=== PATIENT | male | born 1965 | race Caucasian/White ===

== ENCOUNTER → 2016-06-07 | Outpatient (CLI) | payer OTHER ==
[~2016-06-07] MED LIST: ACET-1256 PO; ADVIN50050 INH; ALBU1NEB10 INH; ALBUAER2 INH; ASPI81TA28 PO; BUPR-102 PO; LSN/2025 PO; MELO15TA4 PO; METO1TAB66 PO; PRLSR20 PO; TRAZ50TA35 PO; [UNRECOGNIZED DRUG - CODE] PO
[2016-06-07 17:40] LABS: BASO % 0.4 %; BASO ABS # 0.03 K/uL (0-0.2); COMPLETE YES; EOS % 2.3 %; HEMATOCRIT 46.2 % (42-52); IG% 0.3 %; LYMPH % 21.2 %; MEAN CELL VOLUME 94.1 fL (80-100); MEAN CORPUSCULAR HEMOGLOBIN 31.6 pg (25-34); MEAN CORPUSCULAR HGB CONC 33.5 g/dl (32-36); MEAN PLATELET VOLUME 10.8 fL (7.4-10.4); MONO % 10.6 %; NEUT % 65.2 %; PLATELET COUNT 223 K/uL (130-400); RED BLOOD COUNT 4.91 M/uL (4.7-6.1); WHITE BLOOD COUNT 7.07 K/uL (4.8-10.8)
[2016-06-07 17:52] LABS: ALT/SGPT 34 U/L (12-78); BLOOD UREA NITROGEN 19 mg/dl (7-18); BUN/CREATININE RATIO 15.4 (10-20); CALCIUM 9.2 mg/dl (8.5-10.1); CARBON DIOXIDE 25 mmol/L (21-32); CHLORIDE 104 mmol/L (98-107); CHOLESTEROL 163 mg/dl (0-200); GLUCOSE 98 mg/dl (70-99); POTASSIUM 4.2 mmol/L (3.5-5.1); SODIUM 139 mmol/L (136-145)
[2016-06-07 18:01] LABS: ALB/GLOB RATIO 0.9 (0.9-2); ALKALINE PHOSPHATASE 110 U/L (45-117); AST/SGOT 27 U/L (15-37); CHOLESTEROL/HDL RATIO 3.8; HDL CHOLESTEROL 43 mg/dl; LDL CHOLESTEROL CALCULATED 75 mg/dl; TRIGLYCERIDES 227 mg/dl (0-150); VERY LOW DENSITY LIPOPROT CALC 45 mg/dl
== END | disposition home or self-care (01) ==
LOC: C.LABBFT 11:41
PROVIDERS: ATTEND Internal Medicine
DX: I63.9 Cerebral infarction, unspecified (principal); J45.901 Unspecified asthma with (acute) exacerbation

== ENCOUNTER 2024-03-26 08:36 | Inpatient (IN) ==
--- NOTE | 2024-03-26 09:02 | Emergency Department Note ---
Impression & Plan AMS (altered mental status), Acute hypokalemia, Hypomagnesemia, Elevated lactic acid level, Generalized weakness ED Provider Note HISTORY OF PRESENT ILLNESS: Patient is a 58-year-old male presenting for confusion. Patient has been having progressively worsening confusion reportedly over the last 3 months, but more notably in the last week or so. Patient reportedly fell and hit his head a few days ago. He has a history of thrombocytopenia and is on a baby aspirin. He is currently undergoing chemotherapy for multiple myeloma. He is currently undergoing radiation for a compression fracture at T10. had contacted heme/onc (Dr. Vásquez) due to the patient being very angry and confused and not himself. He reportedly soiled himself at radiation yesterday and got lost while driving home. He has been having episodes of angry outbursts with family. reports that the confusion and mood changes seem to get significantly worse starting on 03/13/2024 and have worsened since then. Dr. Vásquez does note that this is when the patient started taking Decadron daily for his pain. He was at treatment today when he disclosed to his meter and service line inspector that he hit his head a few days ago. They were referred to the emergency department for further evaluation. Patient did have a fever of 102 yesterday. reports that the patient broke out in sweats and seemed chilled. No reported cough. No dysuria or hematuria. Patient denies any nausea, vomiting or abdominal pain. Denies any chest pain. He does report feeling lightheaded when he stands up. ROS: as above PHYSICAL EXAM: Constitutional: Patient appears in no acute distress. HENT: Head: Normocephalic and atraumatic. Eyes: EOMI, PERRL Mouth/Throat: Mucous membranes moist. Neck: Trachea midline. Neck supple. Cardiovascular: Tachycardic with regular rhythm. No murmurs, rubs or gallops. Intact distal pulses. Pulmonary/Chest: No respiratory distress. Breath sounds clear and equal bilaterally. No wheezes or rales. Abdominal: Abdomen soft, no tenderness, rebound or guarding. Musculoskeletal: No edema, tenderness or deformity noted. Skin: Warm and dry. No rash, erythema, pallor or cyanosis Psychiatric: Appropriate mood and affect for situation. Neurological: Alert. Facies symmetric. Able to raise eyebrows, close eyes, smile, puff mouth, stick out tongue, move tongue left and right and raise palate symmetrically. Able to shrug shoulders. PERRLA. SILT to forehead below eye and at jawline. Can hear soft noise bilaterally. Strength 5/5 in bilateral upper and lower extremities. SILT throughout bilateral upper and lower extremities. MDM: - Vitals signs showed tachycardic and hypertensive. - History obtained via patient and patient's . History as above. - Chronic conditions affecting care: multiple myeloma; GERD; asthma; HTN - Differential diagnoses include, but are not limited to: intracranial hemorrhage; intracranial mass; CVA; ACS; pneumonia; viral syndrome; UTI; electrolyte abnormality; dysrhythmia - Order placed for continuous cardiac monitoring. At this time, monitor showed rate of 115 bpm with normal sinus rhythm, per my interpretation. - External medical records reviewed. Radiation oncology history and physical exam note dated 03/17/2024 was reviewed. Patient follows in their clinic for palliative radiation therapy for his T10 vertebral body compression fracture. - EKG interpreted by myself showed normal sinus rhythm. Rate tachycardic at 125 bpm. QT 334. No acute ischemic changes. - Laboratory workup interpreted by myself showed leukopenia (WBC 3.67); thrombocytopenia (plt 75); normal PT/INR; hypokalemia (K 2.8); elevated lactate (2.3); elevated anion gap (15); hypomagnesemia (Mg 1.6); normal troponin; normal procalcitonin - CT head wo contrast negative for acute intracranial pathology - CT cervical spine wo contrast negative for injury - CXR negative for pneumonia, per my interpretation - Viral respiratory panel negative - Patient given 30 mEq IV potassium and 1g IV magnesium for electrolyte replacement. - Blood cultures obtained - Patient empirically given 2g IV Rocephin - given his immunocompromised status and reported fevers. - Patient is emotionally labile and intermittently yelling at nursing staff and demanding that I stay in the room. He is very forgetful and loses his train of thought while talking with me. He is given 1 mg IM Ativan to help facilitate care. - CT imaging negative, but patient is very confused. Concern for potential further intracranial abnormality, so MRI brain was ordered to further assess for possible stroke or brain masses. - Discussion was had with case management manager about patient's case and need for admission - Hospitalist, Dr. Yun, consulted for admission - Patient admitted to [facility] for further evaluation and management. ASSESSMENT AND PLAN: Diagnosis: altered mental status; acute hypokalemia; hypomagnesemia; elevated lactic acid level; generalized weakness Plan: admit Past Med/Surg History Problem List (Updated 03/26/24 @ 11:23 by Debra Taylor MD) Generalized weakness (Acute) Elevated lactic acid level (Acute) Hypomagnesemia (Acute) Acute hypokalemia (Acute) AMS (altered mental status) (Acute) Insomnia (Acute) Erectile dysfunction Multiple myeloma Multiple myeloma-diagnosed by bone marrow biopsy April 2019. IgG monoclonal gammopathy Prothrombin gene mutation Heterozygous mutation diagnosed 2011 Osteoarthritis GERD (gastroesophageal reflux disease) Homocystinemia Homozygous MTHFR mutation diagnosed 2011 Prediabetes Clotting disorder (Chronic) Asthma (Chronic) Hypertension (Chronic) Medical History (Updated 03/26/24 @ 11:23 by Debra Taylor MD) Anxiety GERD (gastroesophageal reflux disease) On home O2 COPD (chronic obstructive pulmonary disease) Interstitial lung disease Intrinsic asthma Neuropathy Head injury From logging accident;2011; Shingles 2019 MGUS (monoclonal gammopathy of unknown significance) 2018 Stroke Umbilical hernia Osteoarthritis Degenerative joint disease (DJD) of lumbar spine Concussion Unconscious Chemotherapy-induced neuropathy ACL (anterior cruciate ligament) tear History of left ACL tear Insomnia Lyme disease Treated in 2015 Surgical History (Updated 03/17/24 @ 13:28 by Jesenia Longoria, RN) History of bone marrow biopsy Previous back surgery Lumbar spine surgery;Dr. Gray;2002 Hx of colonoscopy History of autologous stem cell transplant 09/02/19 S/P tonsillectomy H/O shoulder surgery Status post repair long head biceps tendon rupture 2013-left shoulder Total of 6 procedures on the left shoulder and 6 procedures on the right shoulder. S/P left knee arthroscopy Status post arthroscopic surgery for torn meniscus 2015 Hx of cholecystectomy History of hernia repair Right inguinal hernia repair 09/01/2013-Dr. Anand Left inguinal hernia repair 11/2020 Family History (Updated 03/17/24 @ 13:32 by Jesenia Longoria, RN) Uncle Cancer Unknown type Father Unknown family medical history Pacemaker Mother , 79yo Unknown family medical history Sister Colonic polyp Son No problems noted. Daughter Diabetes Denies family history of Ovarian cancer Prostate cancer Coronary heart disease Breast cancer Social History (Updated 03/17/24 @ 13:34 by Jesenia Longoria RN) Smoking Status: Never smoker Second Hand Exposure: Yes; Do You Dip or Chew Tobacco: No; Hx Alcohol Use: Yes Alcohol Intake Frequency Comment: Alcohol approximately 1 time per month Hx Substance Use: No (Remote history of marijuana use) Preferred Language: Yoruba Communication Ability: Effective Visual Impairment: No Limitations Hearing Ability: Normal Laundry Clerk Required: No Beliefs That Will Affect Care: None marital status: Current Living Situation: Spouse current occupational status: disabled current occupation: [employer] How many Children do You have: 2 Feels Safe at Home: Yes Childhood Exposure to Second-Hand Smoke: Yes Diet: regular caffeine: Yes during the past year weight has: decreased > 10 lbs Dental Care, Regularly: Yes Physical Activity Frequency: 1-2 Times per Week Seatbelt Use: always Sunscreen Use: Yes Allergies Allergies Allergy/AdvReac Type Severity Reaction Status Date / Time No Known Allergies Allergy Unknown Verified 03/17/24 13:18 Home Meds Home Medications Medication Instructions Recorded Confirmed acetaminophen 500 mg capsule 500 mg PO Q6H PRN 09/18/19 03/17/24 acyclovir 800 mg tablet 800 mg PO BID 09/18/19 03/17/24 folic acid 1 mg tablet 1 mg PO DAILY 09/18/19 03/17/24 multivitamin with minerals-folic mcg PO 09/18/19 03/17/24 acid 200 mcg chewable tablet (One-A-Day Vitacraves Immunity) omega-3 fatty acids 1,000 mg 1,000 mg PO DAILY 09/18/19 03/17/24 capsule vitamin B complex (B 1 tab PO DAILY 09/18/19 03/17/24 Complex-Vitamin B12 tablet) pregabalin 25 mg capsule 25 mg PO BID 01/09/23 03/17/24 albuterol sulfate 2.5 mg/3 mL 2.5 mg inhalation Q4H PRN 03/17/24 03/17/24 (0.083 %) solution for nebulization clobetasol 0.05 % topical cream 1 applic topical BID PRN 03/17/24 03/17/24 dexamethasone 4 mg tablet 4 mg PO DAILY 03/17/24 03/17/24 dexamethasone 4 mg tablet 40 mg PO .Weekly 03/17/24 03/17/24 diphenoxylate-atropine 2.5 1 tab PO QID PRN 03/17/24 03/17/24 mg-0.025 mg tablet (Lomotil) metformin 500 mg tablet,extended 1,000 mg PO DAILY 03/17/24 release 24 hr triamcinolone acetonide 0.1 % 1 applic topical BID PRN 03/17/24 03/17/24 topical cream Previous Rx's Medication Instructions Recorded sildenafil 100 mg tablet 100 mg PO DAILY PRN sexual 12/05/21 activity #6 tabs albuterol sulfate 90 mcg/actuation 2 puff inhalation Q6H PRN 05/11/22 aerosol inhaler (Ventolin HFA) shortness of breath or wheezing #54 grams aspirin 81 mg tablet,delayed 81 mg PO DAILY #30 tabs 01/09/23 release (Adult Aspirin Regimen) duloxetine 60 mg capsule,delayed 60 mg PO BID #180 caps 01/09/23 release ondansetron HCl 8 mg tablet 8 mg PO Q8H PRN nausea and 01/09/23 vomiting #30 tabs prochlorperazine maleate 10 mg 10 mg PO Q6H PRN nausea and 01/09/23 tablet vomiting #30 tabs losartan 50 mg tablet 50 mg PO DAILY #90 tabs 07/03/23 metoprolol succinate 50 mg 50 mg PO DAILY #90 tabs 07/03/23 tablet,extended release 24 hr trazodone 100 mg tablet 100 mg PO .COMPLEX #90 tabs 10/25/23 trazodone 150 mg tablet 150 mg PO HS #90 tabs 10/25/23 hydrochlorothiazide 25 mg tablet 25 mg PO DAILY #90 tabs 12/25/23 omeprazole 40 mg capsule,delayed 40 mg PO BID #180 caps 12/27/23 release zolpidem 10 mg tablet See Rx Instructions PO HS PRN 02/12/24 insomnia #30 tabs theophylline 450 mg 900 mg (2 x 450 mg) PO HS #180 tabs 02/20/24 tablet,extended release,12 hr oxycodone 5 mg tablet 5 mg PO Q6H PRN pain #120 tabs 03/24/24 Results & Data (ED) Vital Signs Vital Signs - 24 hr 03/26/24 08:40 03/26/24 09:02 03/26/24 09:27 Temperature 37 C 36.9 C Temperature Source Temporal Artery Scan Oral Pulse Rate 121 H 124 H Pulse Rate [Apical] 115 H Respiratory Rate 18 23 Respiratory Effort / Characteristics Non-Labored Spontaneous Non-Labored Spontaneous Respiratory Depth Normal Normal Blood Pressure 144/88 H Blood Pressure [Left Arm] 133/95 Blood Pressure Mean 106 Blood Pressure Mean [Left Arm] 107 Blood Pressure Position [Left Arm] Sitting Pulse Oximetry 96 94 Oxygen Delivery Method Room Air Room Air Sepsis Recent Fever Within 48 Hours No Sepsis New/Unexplained Change in Mental Status No Sepsis Action Taken by Nursing No Action Required Laboratory Data 03/26/24 08:56 03/26/24 08:56 Lab Results 03/26/24 03/26/24 03/26/24 Range/Units 08:56 09:20 11:19 WBC 3.67 L (4.8-10.8) K/ul RBC 4.18 L (4.70-6.10) M/uL Hgb 14.7 (14.0-18.0) g/dl Hct 41.6 L (42.0-52.0) % MCV 99.5 (80.0-100.0) fL MCH 35.2 H (25.0-34.0) pg MCHC 35.3 (32.0-36.0) g/dL RDW Std Deviation 49.1 H (36.4-46.3) fL RDW Coeff of Amy 13.4 (11.5-14.5) % Plt Count 75 L (130-400) K/uL MPV 12.1 (9.4-12.4) fL Immature Gran % (Auto) 1.1 % Neut % (Auto) 83.3 % Lymph % (Auto) 2.2 % Rincon % (Auto) 12.3 % Eos % (Auto) 0.8 % Baso % (Auto) 0.3 % Neut # (Auto) 3.06 (1.40-6.50) K/uL Lymph # (Auto) 0.08 L (1.20-3.40) K/uL Rincon # (Auto) 0.45 (0.11-0.59) K/uL Eos # (Auto) 0.03 (0.00-0.50) K/uL Baso # (Auto) 0.01 (0.00-0.20) K/uL Immature Gran # (Auto) 0.04 (0.01-0.20) K/uL Platelet Estimate Decreased L (Normal) Tear Drop Cells 1+ PT 10.5 (9.0-12.0) Seconds INR 1.0 (0.9-1.1) APTT 27 (21-31) Seconds PTT Ratio 1.0 Sodium 138 (136-145) mmol/L Potassium 2.8 L (3.5-5.1) mmol/L Chloride 99 (98-107) mmol/L Carbon Dioxide 24 (21-32) mmol/L Anion Gap 15 H (3-11) BUN 15 (6-23) mg/dl Creatinine 1.16 (0.6-1.4) mg/dl Est Cr Clr Drug Dosing 91.7 ml/min eGFR 72.56 BUN/Creatinine Ratio 12.9 (10-20) Glucose 127 H (70-99(Fasting)) mg/dl Lactate 2.3 H* 2.1 H* (0.4-2.0) mmol/L Calcium 9.6 (8.6-10.3) mg/dl Magnesium 1.6 L (1.7-2.4) mg/dl Total Bilirubin 0.8 (0.2-1.0) mg/dl AST 21 (13-39) U/L ALT 19 (7-52) U/L Alkaline Phosphatase 90 (34-104) U/L Troponin I High Sens 14.1 (0-20) pg/ml Total Protein 6.5 (6.0-8.3) gm/dl Albumin 4.5 (3.4-5.0) gm/dl Globulin 2.0 L (2.5-4.0) gm/dl Albumin/Globulin Ratio 2.3 H (0.9-2) Procalcitonin 0.09 (0-0.5) ng/ml Urine Color Urine Appearance (Clear) Urine pH (4.5-7.5) Ur Specific Fults (1.000-1.030) Urine Protein (Negative) Urine Glucose (UA) (Negative) Urine Ketones (Negative) Urine Blood (Negative) Urine Nitrite (Negative) Urine Bilirubin (Negative) Urine Urobilinogen (Negative) Ur Leukocyte Esterase (Negative) Adenovirus (PCR) Not Detected (NotDetected) B. pertussis DNA (PCR) Not Detected (NotDetected) B.parapertussis DNA PCR Not Detected (NotDetected) C. pneumoniae DNA (PCR) Not Detected (NotDetected) Coronavirus OC43 (PCR) Not Detected (NotDetected) Coronavirus HKU1 (PCR) Not Detected (NotDetected) Coronavirus 229E (PCR) Not Detected (NotDetected) SARS-CoV-2 (PCR) Not Detected (NotDetected) Coronavirus NL63 (PCR) Not Detected (NotDetected) Human Metapneumovir PCR Not Detected (NotDetected) Influenza Type A (PCR) Not Detected (NotDetected) Influenza Type B (PCR) Not Detected (NotDetected) M. pneumoniae (PCR) Not Detected (NotDetected) Parainfluenza 1 (PCR) Not Detected (NotDetected) Parainfluenza 2 (PCR) Not Detected (NotDetected) Parainfluenza 3 (PCR) Not Detected (NotDetected) Parainfluenza 4 (PCR) Not Detected (NotDetected) RSV (PCR) Not Detected (NotDetected) Entero/Rhino (PCR) Not Detected (NotDetected) 03/26/24 Range/Units Unknown WBC (4.8-10.8) K/ul RBC (4.70-6.10) M/uL Hgb (14.0-18.0) g/dl Hct (42.0-52.0) % MCV (80.0-100.0) fL MCH (25.0-34.0) pg MCHC (32.0-36.0) g/dL RDW Std Deviation (36.4-46.3) fL RDW Coeff of Amy (11.5-14.5) % Plt Count (130-400) K/uL MPV (9.4-12.4) fL Immature Gran % (Auto) % Neut % (Auto) % Lymph % (Auto) % Rincon % (Auto) % Eos % (Auto) % Baso % (Auto) % Neut # (Auto) (1.40-6.50) K/uL Lymph # (Auto) (1.20-3.40) K/uL Rincon # (Auto) (0.11-0.59) K/uL Eos # (Auto) (0.00-0.50) K/uL Baso # (Auto) (0.00-0.20) K/uL Immature Gran # (Auto) (0.01-0.20) K/uL Platelet Estimate (Normal) Tear Drop Cells PT (9.0-12.0) Seconds INR (0.9-1.1) APTT (21-31) Seconds PTT Ratio Sodium (136-145) mmol/L Potassium (3.5-5.1) mmol/L Chloride (98-107) mmol/L Carbon Dioxide (21-32) mmol/L Anion Gap (3-11) BUN (6-23) mg/dl Creatinine (0.6-1.4) mg/dl Est Cr Clr Drug Dosing ml/min eGFR BUN/Creatinine Ratio (10-20) Glucose (70-99(Fasting)) mg/dl Lactate (0.4-2.0) mmol/L Calcium (8.6-10.3) mg/dl Magnesium (1.7-2.4) mg/dl Total Bilirubin (0.2-1.0) mg/dl AST (13-39) U/L ALT (7-52) U/L Alkaline Phosphatase (34-104) U/L Troponin I High Sens (0-20) pg/ml Total Protein (6.0-8.3) gm/dl Albumin (3.4-5.0) gm/dl Globulin (2.5-4.0) gm/dl Albumin/Globulin Ratio (0.9-2) Procalcitonin (0-0.5) ng/ml Urine Color Yellow Urine Appearance Clear (Clear) Urine pH 6.5 (4.5-7.5) Ur Specific Fults 1.014 (1.000-1.030) Urine Protein Negative (Negative) Urine Glucose (UA) Negative (Negative) Urine Ketones 2+ H (Negative) Urine Blood Negative (Negative) Urine Nitrite Negative (Negative) Urine Bilirubin Negative (Negative) Urine Urobilinogen Negative (Negative) Ur Leukocyte Esterase Negative (Negative) Adenovirus (PCR) (NotDetected) B. pertussis DNA (PCR) (NotDetected) B.parapertussis DNA PCR (NotDetected) C. pneumoniae DNA (PCR) (NotDetected) Coronavirus OC43 (PCR) (NotDetected) Coronavirus HKU1 (PCR) (NotDetected) Coronavirus 229E (PCR) (NotDetected) SARS-CoV-2 (PCR) (NotDetected) Coronavirus NL63 (PCR) (NotDetected) Human Metapneumovir PCR (NotDetected) Influenza Type A (PCR) (NotDetected) Influenza Type B (PCR) (NotDetected) M. pneumoniae (PCR) (NotDetected) Parainfluenza 1 (PCR) (NotDetected) Parainfluenza 2 (PCR) (NotDetected) Parainfluenza 3 (PCR) (NotDetected) Parainfluenza 4 (PCR) (NotDetected) RSV (PCR) (NotDetected) Entero/Rhino (PCR) (NotDetected) Administered Medications Potassium Chloride (K Joshua / Wtr) 10 meq in 100 mls @ 100 mls/hr IV Q1H KIRBY; Protocol Stop: 03/26/24 12:44 Last Admin: 03/26/24 11:31 Dose: 100 mls/hr Documented By: Infusion: 03/26/24 11:23 Dose: Infused Documented By: Admin: 03/26/24 10:00 Dose: 100 mls/hr Documented By: CC Discontinued Medications Sodium Chloride (Nss) 1,000 mls @ 999 mls/hr IV .Q1H1M ONE Stop: 03/26/24 10:04 Last Infusion: 03/26/24 11:23 Dose: Infused Documented By: Admin: 03/26/24 09:23 Dose: 999 mls/hr Documented By: CC Acetaminophen (Ofirmev) 1,000 mg in 100 mls @ 400 mls/hr IV NOW STA Stop: 03/26/24 09:18 Last Infusion: 03/26/24 10:31 Dose: Infused Documented By: Admin: 03/26/24 09:23 Dose: 400 mls/hr Documented By: CC Magnesium Sulfate/Dextrose (Magnesium Sulfate / D5w) 1 gm in 100 mls @ 100 mls/hr IV NOW STA Stop: 03/26/24 10:40 Last Infusion: 03/26/24 11:23 Dose: Infused Documented By: Admin: 03/26/24 10:00 Dose: 100 mls/hr Documented By: CC Ceftriaxone Sodium (Rocephin) 2,000 mg in 50 mls @ 100 mls/hr IV NOW STA Stop: 03/26/24 10:37 Last Admin: 03/26/24 11:30 Dose: 100 mls/hr Documented By: CC Lorazepam (Lorazepam 2 Mg/1 Ml Vial) 1 mg IV NOW STA Stop: 03/26/24 10:45 Last Admin: 03/26/24 11:18 Dose: 1 mg Documented By: NA Lorazepam (Lorazepam 1 Mg/1 Ml Syr Ed Inj Use) 1 mg IM ONE STA Stop: 03/26/24 10:51 Last Admin: 03/26/24 11:19 Dose: Not Given Documented By: NA Imaging Data Radiologist's Impression: Cervical Spine CT 03/26/24 08:50 CT OF THE CERVICAL SPINE WITHOUT CONTRAST CLINICAL HISTORY: Recent fall. COMPARISON STUDY: PET/CT August 13, 2023. TECHNIQUE: Helical axial images of the cervical spine were obtained without IV contrast. Sagittal and coronal reconstructions were viewed. Automated exposure control was utilized for the study. A dose lowering technique was utilized adhering to the principles of ALARA. FINDINGS: There are no cervical spine fractures. Moderate multilevel degenerative changes are present. Several lucent lesions within the cervical spine are likely degenerative in etiology. There is no prevertebral edema. Several mildly enlarged left-sided cervical lymph nodes are partially imaged. These nodes measure up to 1.1 cm. These are stable to slightly decreased in size since PET/CT of August 13, 2023. IMPRESSION: 1. No acute cervical spine fracture or subluxation. 2. Left cervical lymphadenopathy, partially imaged on this exam. These nodes are stable to slightly decreased in size since PET/CT of August 13, 2023. ACT 112: Negative or not required by law. Electronically signed by: Rafi Fontenot M.D. 03/26/2024 9:36 AM Chest X-Ray 03/26/24 08:50 XR chest 1V portable CLINICAL HISTORY: Sepsis. COMPARISON STUDY: Chest CT September 23, 2019. Plain CT March 19, 2024. FINDINGS: Lung volumes are normal. Lungs are clear. There is no pneumothorax or pleural effusion. Cardiac size is normal. Mediastinal contours are normal. There is no evidence for pulmonary edema. IMPRESSION: No acute cardiopulmonary findings. ACT 112: Negative or not required by law. Electronically signed by: Rafi Fontenot M.D. 03/26/2024 10:[address] 03/26/24 08:50 CT head/brain wo con CLINICAL HISTORY: 58 years-old Male with fell and hit head; ASA + thrombocytopenia. Acute head trauma status post fall TECHNIQUE: Multiple axial CT images of the head were obtained without contrast. A dose lowering technique was utilized adhering to the principles of ALARA. COMPARISON: CT cervical spine of same day FINDINGS: No acute intracranial hemorrhage, midline shift, intracranial mass, hydrocephalus, territorial ischemia or abnormal extra-axial collection. The calvarium is intact. The paranasal sinuses, mastoid air cells, and middle ear cavities are clear. IMPRESSION: No acute intracranial abnormality. ACT 112: Negative or not required by law. The above report was generated using voice recognition software. It may contain grammatical, syntax or spelling errors. Electronically signed by: Riley Pierre M.D. 03/26/2024 9:36 AM Discharge Plan Visit Data Chief Complaint: Confusion Stated Complaint: MENTAL HEALTH EVAL ED Provider: Debra Taylor Discharge Problem: AMS (altered mental status), Acute hypokalemia, Hypomagnesemia, Elevated lactic acid level, Generalized weakness Prescriptions Prescriptions: No Action triamcinolone acetonide 0.1 % cream 1 applic topical BID PRN dexamethasone 4 mg tablet 40 mg PO .Weekly Patient Comments: As directed. albuterol sulfate 2.5 mg /3 mL (0.083 %) solution for nebulization 2.5 mg inhalation Q4H PRN diphenoxylate-atropine [Lomotil] 2.5-0.025 mg tablet 1 tab PO QID PRN clobetasol 0.05 % cream 1 applic topical BID PRN dexamethasone 4 mg tablet 4 mg PO DAILY Patient Comments: Except on day of chemo metformin 500 mg tablet extended release 24 hr 1,000 mg PO DAILY sildenafil 100 mg tablet 100 mg PO DAILY PRN (Reason: sexual activity) Qty: 6 11RF Rx Instructions: administer 30 minutes to 4 hours before activity albuterol sulfate [Ventolin HFA] 90 mcg/actuation HFA aerosol inhaler 2 puff INH Q6H PRN (Reason: shortness of breath or wheezing) Qty: 54 3RF metoprolol succinate 50 mg tablet extended release 24 hr 50 mg PO DAILY Qty: 90 3RF losartan 50 mg tablet 50 mg PO DAILY Qty: 90 3RF trazodone 100 mg tablet 100 mg PO .COMPLEX Qty: 90 3RF Rx Instructions: 100 mg PO qhs; take with 150mg tab to equal 250mg daily. trazodone 150 mg tablet 150 mg PO HS MDD 250mg Qty: 90 3RF Rx Instructions: take with 100mg tablet to equal 250mg daily hydrochlorothiazide 25 mg tablet 25 mg PO DAILY Qty: 90 3RF omeprazole 40 mg capsule,delayed release(DR/EC) 40 mg PO BID Qty: 180 3RF zolpidem 10 mg tablet See Rx Instructions PO HS PRN (Reason: insomnia) Qty: 30 2RF Rx Instructions: Take 1/2 to 1 tablet at bedtime as needed for insomnia Michael Collins Lic# [id number],CHRISTIAN#[id number] ON GOING THERAPY theophylline 450 mg tablet extended release 12 hr 900 mg PO HS Qty: 180 3RF oxycodone 5 mg tablet 5 mg PO Q6H PRN (Reason: pain) Qty: 120 0RF vitamin B complex [B Complex-Vitamin B12] Tablet 1 tab PO DAILY One-A-Day Vitacraves Immunity 200 mcg tablet,chewable PO folic acid 1 mg tablet 1 mg PO DAILY omega-3 fatty acids 1,000 mg capsule 1,000 mg PO DAILY acyclovir 800 mg tablet 800 mg PO BID acetaminophen 500 mg capsule 500 mg PO Q6H PRN pregabalin 25 mg capsule 25 mg PO BID aspirin [Adult Aspirin Regimen] 81 mg tablet,delayed release (DR/EC) 81 mg PO DAILY Qty: 30 2RF Hold Instructions: by [facility] [place] 09/16/2019 duloxetine 60 mg capsule,delayed release(DR/EC) 60 mg PO BID Qty: 180 3RF ondansetron HCl 8 mg tablet 8 mg PO Q8H PRN (Reason: nausea and vomiting) Qty: 30 0RF prochlorperazine maleate 10 mg tablet 10 mg PO Q6H PRN (Reason: nausea and vomiting) Qty: 30 0RF Referrals Referrals: Michael Collins MD [Primary Care Provider] -
[2024-03-26] MEDS: SODIUM CHLORIDE 0.9% 1,000 ML IV ONE (09:23)
[2024-03-26] MEDS: ACETAMINOPHEN 1,000 MG/100 ML VIAL IV STA (09:23)
[2024-03-26 09:24] LABS: Appearance Urine Clear (Clear); Bilirubin Urine Negative (Negative); Blood Urine Negative (Negative); Color Urine Yellow; Glucose Urine UA Negative (Negative); Ketones Urine 2+ (Negative); Leukocyte Esterase Urine Negative (Negative); Nitrite Urine Negative (Negative); Protein Urine Negative (Negative); Specific Gravity Urine 1.014 (1.000-1.030); Urobilinogen Urine Negative (Negative); pH Urine 6.5 (4.5-7.5)
[2024-03-26 09:29] VITALS: TEMP 98.4
[2024-03-26 09:34] LABS: Albumin Globulin Ratio 2.3 (0.9-2); Albumin Level 4.5 gm/dl (3.4-5.0); BUN Creatinine Ratio 12.9 (10-20); Bilirubin,Total 0.8 mg/dl (0.2-1.0); Calcium 9.6 mg/dl (8.6-10.3); Creatinine Clr Calc Pharmacy 91.7 ml/min; Magnesium 1.6 mg/dl (1.7-2.4); Potassium 2.8 mmol/L (3.5-5.1); Total Protein 6.5 gm/dl (6.0-8.3)
--- NOTE | 2024-03-26 09:37 | CT Scan Report ---
CT head/brain wo con CLINICAL HISTORY: 58 years-old Male with fell and hit head; ASA + thrombocytopenia. Acute head traum a status post fall TECHNIQUE: Multiple axial CT images of the head were obtained without contrast. A dose lowering tech nique was utilized adhering to the principles of ALARA. COMPARISON: CT cervical spine of same day FINDINGS: No acute intracranial hemorrhage, midline shift, intracranial mass, hydrocephalus, territorial ischem ia or abnormal extra-axial collection. The calvarium is intact. The paranasal sinuses, mastoid air cells, and middle ear cavities are clear . IMPRESSION: No acute intracranial abnormality. ACT 112: Negative or not required by law. The above report was generated using voice recognition software. It may contain grammatical, syntax o r spelling errors. Electronically signed by: Riley Pierre M.D. 03/26/2024 9:36 AM
--- NOTE | 2024-03-26 09:38 | CT Scan Report ---
CT OF THE CERVICAL SPINE WITHOUT CONTRAST CLINICAL HISTORY: Recent fall. COMPARISON STUDY: PET/CT August 13, 2023. TECHNIQUE: Helical axial images of the cervical spine were obtained without IV contrast. Sagittal a nd coronal reconstructions were viewed. Automated exposure control was utilized for the study. A do se lowering technique was utilized adhering to the principles of ALARA. FINDINGS: There are no cervical spine fractures. Moderate multilevel degenerative changes are present . Several lucent lesions within the cervical spine are likely degenerative in etiology. There is no p revertebral edema. Several mildly enlarged left-sided cervical lymph nodes are partially imaged. Thes e nodes measure up to 1.1 cm. These are stable to slightly decreased in size since PET/CT of August 13, 2023. IMPRESSION: 1. No acute cervical spine fracture or subluxation. 2. Left cervical lymphadenopathy, partially imaged on this exam. These nodes are stable to slightly d ecreased in size since PET/CT of August 13, 2023. ACT 112: Negative or not required by law. Electronically signed by: Rafi Fontenot M.D. 03/26/2024 9:36 AM
[2024-03-26 09:40] LABS: Troponin I High Sensitivity 14.1 pg/ml (0-20)
[2024-03-26 09:43] LABS: Partial Thromboplastin Time 27 Seconds (21-31); Prothrombin Time 10.5 Seconds (9.0-12.0)
[2024-03-26] MEDS: MAGNESIUM SULFATE / D5W 1 GM/100 ML BAG IV STA (10:00)
[2024-03-26] MEDS: POTASSIUM CHLORIDE / WTR 10 MEQ/100 ML PLCT IV SCH (10:00)
[2024-03-26 10:06] LABS: Hematocrit (blood only) 41.6 % (42.0-52.0); Hemoglobin 14.7 g/dl (14.0-18.0); Mean Corpuscular Hemoglobin 35.2 pg (25.0-34.0); Mean Corpuscular Hgb Conc 35.3 g/dL (32.0-36.0); Mean Corpuscular Volume 99.5 fL (80.0-100.0); RDW Coefficient of Variation 13.4 % (11.5-14.5); RDW Standard Deviation 49.1 fL (36.4-46.3); Red Blood Count 4.18 M/uL (4.70-6.10); White Blood Count 3.67 K/ul (4.8-10.8)
[2024-03-26 10:08] LABS: Basophils # (auto) 0.01 K/uL (0.00-0.20); Basophils % (auto) 0.3 %; Eosinophils # (auto) 0.03 K/uL (0.00-0.50); Eosinophils % (auto) 0.8 %; Immature Granulocytes # (auto) 0.04 K/uL (0.01-0.20); Immature Granulocytes % (auto) 1.1 %; Lymphocytes # (auto) 0.08 K/uL (1.20-3.40); Lymphocytes % (auto) 2.2 %; Mean Platelet Volume 12.1 fL (9.4-12.4); Monocytes # (auto) 0.45 K/uL (0.11-0.59); Monocytes % (auto) 12.3 %; Neutrophils # (auto) 3.06 K/uL (1.40-6.50); Neutrophils % (auto) 83.3 %; Platelet Count 75 K/uL (130-400); Platelet Estimate Decreased (Normal); Tear Drop Cells 1+
--- NOTE | 2024-03-26 10:10 | XRay Report ---
XR chest 1V portable CLINICAL HISTORY: Sepsis. COMPARISON STUDY: Chest CT September 23, 2019. Plain CT March 19, 2024. FINDINGS: Lung volumes are normal. Lungs are clear. There is no pneumothorax or pleural effusion. Car diac size is normal. Mediastinal contours are normal. There is no evidence for pulmonary edema. IMPRESSION: No acute cardiopulmonary findings. ACT 112: Negative or not required by law. Electronically signed by: Rafi Fontenot M.D. 03/26/2024 10:09 AM
[2024-03-26 10:19] LABS: Adenovirus PCR Not Detected (NotDetected); Bordetella parapertussis PCR Not Detected (NotDetected); Bordetella pertussis PCR Not Detected (NotDetected); Chlamydia pneumoniae PCR Not Detected (NotDetected); Coronavirus 229E PCR Not Detected (NotDetected); Coronavirus CoV-2 (COVID19)PCR Not Detected (NotDetected); Coronavirus HKU1 PCR Not Detected (NotDetected); Coronavirus NL63 PCR Not Detected (NotDetected); Coronavirus OC43PCR Not Detected (NotDetected); Human Metapneumovirus PCR Not Detected (NotDetected); Influenza A PCR Not Detected (NotDetected); Influenza B PCR Not Detected (NotDetected); Mycoplasma pneumoniae PCR Not Detected (NotDetected); Parainfluenza Virus 1 PCR Not Detected (NotDetected); Parainfluenza Virus 2 PCR Not Detected (NotDetected); Parainfluenza Virus 3 PCR Not Detected (NotDetected); Parainfluenza Virus 4 PCR Not Detected (NotDetected); Respiratory Syncytial VirusPCR Not Detected (NotDetected); Rhinovirus/Enterovirus PCR Not Detected (NotDetected)
[2024-03-26] MEDS: LORazepam 2 MG/1 ML VIAL IV STA (10:53)
[2024-03-26] MEDS: LORazepam 1 MG/1 ML SYR ED Inj Use IM STA (11:19)
[2024-03-26] MEDS: cefTRIAXone SODIUM 2,000 MG/50 ML BAG IV STA (11:30)
[2024-03-26] MEDS: POTASSIUM CHLORIDE CRTAB 20 MEQ TABCR PO STA (11:55)
[2024-03-26 11:58] LABS: C Reactive Protein 3.03 mg/dl (0-0.5)
--- NOTE | 2024-03-26 11:59 | History & Physical Report ---
Date of Service March 26, 2024 Assessment & Plan (1) Encephalopathy: Plan: ? Steroid-induced psychosis Onset 3 months ago, worsening on 03/13 after MRI appointment, no h/o dementia or psych disorders - Worsening over 3 months, large change around 03/13 after MRI appointment where his states that he "had a meltdown" when discussing his history - Oncology note from 12/12/2023 without mention of steroids; Note from 03/05/2024 first mention of Decadron 40mg weekly HOWEVER, spoke with oncologist on phone who states that this steroid dose has been ongoing x years - Additional 4mg daily is only recent adjustment; pt has not taken 4mg dose since 03/23 stating it was "messing with his head" per --> continue to HOLD for now - Chemo every - CBC WBC 3.67, RBC 4.18, HCT 41.6, MCH 35.2, RDW 49.1, platelets 75 - CMP K 2.8, anion gap 15 - Lactate 2.1, magnesium 1.6, CRP 3.03; procalcitonin 0.09; TSH 0.618, vitamin B12 > 1500 - Tick panel negative thus far (h/o Lyme in 2016) - UA with 2+ ketones otherwise WNL - CXR, cervical spine CT, and head CT all without acute findings - EKG revealing sinus tachycardia and PACs - MRI- no acute cranial findings, no intracranial masses or pathological enhanc ement, few old small infarcts with right cerebellar hemisphere - Neurology consulted ([facility] neurologist outpatient) Appreciate neurology input + recs (2) Multiple myeloma: Plan: Diagnosed 04/08/2019; Following w/ Dr. Vásquez @ [facility] - Current regimen: SQ daratumumab (since 01/2021), Darzalex Faspro monthly (since 01/2021), Cytoxan 300mg/m2 weekly (since 10/2023), Decadron 40mg weekly - Oncology note from 12/12/2023 without mention of steroids; Note from 03/05/2024 first mention of Decadron 40mg weekly HOWEVER, spoke with oncologist on phone who states that this steroid dose has been ongoing x years - Spoke w/ oncologist over the phone 03/26 regarding patient's treatment and any changes; all as above (3) Acute hypokalemia: Plan: K 2.8 on admission - EKG w/o changes - Replaced w/ IV K - Continue on oral replacement prn if continues to be low - Hold HCTZ until repeat K - CMP am (4) Back pain: Plan: Compression fx T10, to have radiation - On Decadron 40mg weekly w/ chemo and ? 4mg daily otherwise - Duloxetine 60mg BID, oxycodone 5mg q6hr prn pain --> HOLD oxycodone as it may be contributing to #1 - Received Acetaminophen in ED; states "back is getting better" (5) Hypertension: Plan: Hypertensive on arrival - HCTZ 25mg daily, Losartan 50mg daily, metoprolol succ 50mg - Hold HCTZ until repeat K (6) Asthma: Plan: Per hx - Albuterol sulfate neb prn - CXR WNL Plan Prediabetes- Metformin 1000 mg daily -> no SQ insulin placed at admission Homozygous MTHFR mutation- Dx 2011 GERD- Omperazole 40mg BID Neuropathy- Pregablin 25mg BID ED- Sildenafil 100mg prn Insomnia- Zolpidem 10mg, trazodone 150 mg qHS -> HOLD BOTH as may be contributing to #1 Dispo: Admit VTE prophylaxis: SCDs Code: Full Admission and Anticipated Discharge Date Admission Date: 03/26/2024 History of Present Illness Chief Complaint: Confusion, AMS Primary Care Provider: Michael Collins MD 58-year-old male presenting to ED after referred from oncologist secondary to learning of recent fall. ED course: CBC- WBC 3.67, RBC 4.18, H&H 14.7/41.6, MCH 35.2, RDW 49.1, platelets 75; CMP-potassium 2.8, anion gap 15, glucose 127, globulin 2.0, albumin/globulin ratio 2.3; lactate 10.1, magnesium 1.6, troponin 14.1, pending CRP, TSH, vitamin B12; UA 2+ ketones otherwise unremarkable; CXR no acute cardiopulmonary findings; cervical spine CT left cervical LAD, partially imaged on the exam nodes are stable to slightly decreased in size since PET/CT of August 13, 2023; head CT without acute intracranial abnormality; EKG sinus tach with PACs, rate 125, plus minus LVH, QTc 482.; Provided with one-on-one assist, potassium replacement, magnesium replacement, Rocephin, Tylenol as well as lorazepam in ED. Patient is a 58-year-old male with PMHx multiple myeloma, GERD, HTN, homocystinemia, asthma and insomnia presenting for altered mental status. , Yvrose, helps to provide history. States that approximately 3 months ago the patient started to have confusion that has mainly worsened over the past 10 to 12 days. States that the patient had an MRI approximately 2 to 3 weeks ago and that when he came home he stated he had a "meltdown" and has not been the same since. Approximately 1 week ago, the patient was found writing numerous notes to himself writing things such as "I trust Yvrose", "I will go to the ER". His also states that that the patient has been intermittently complaining of pain above his left eye that occurs almost on a daily basis, and has stated "I try to ignore it so the voices do not know" per the patient's . Had a recent fall approximately 2 days ago and hit his head (on aspirin). She states that he also has had a fever for approximately 3 days with Tmax being 102 on 03/25. Also, on 03/25 the patient was noted to have soiled himself and got confused when driving home. denies alcohol or illicit drug use in the patient. States that the patient does not have any prior mental illnesses, but that there is a positive family history of such. 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 Only medication adjustments have been dosages of Decadron. Patient's states that he seems to become agitated and awake for hours on end after receiving a large dose of Decadron (40 mg) with his chemotherapy treatments. Chemotherapy treatments occur every . Patient spends a lot of time outside trying to do outside chores. No known ticks. Associated symptoms include patient having a difficult time urinating. Patient very suspicious of staff entering the room, picking and choosing who may come in and stay. I was able to enter the patient's room in the ED to have brief discussion with him. However, soon after entering, he told the nurse that I should leave and continued to act very suspicious of everyone entering the room. Assured him that I was there to help him, and he was willing to talk with me briefly. States that he can walk by himself, and that back pain is improving. Asked for water. Please see Dr. Yun's attestation for adjustments/additions to treatment plan. Allergies Allergy/AdvReac Type Severity Reaction Status Date / Time No Known Allergies Allergy Unknown Verified 03/17/24 13:18 Home Medications Medication Instructions Recorded Confirmed Type acetaminophen 500 mg capsule 500 mg PO Q6H PRN Pain/Fever 09/18/19 03/26/24 History acyclovir 800 mg tablet 800 mg PO BID 09/18/19 03/26/24 History folic acid 1 mg tablet 1 mg PO DAILY 09/18/19 03/26/24 History multivitamin with minerals-folic 200 mcg PO 09/18/19 03/17/24 History acid 200 mcg chewable tablet (One-A-Day VitacrBitWall Immunity) omega-3 fatty acids 1,000 mg 1,000 mg PO DAILY 09/18/19 03/26/24 History capsule sildenafil 100 mg tablet 100 mg PO DAILY PRN sexual 12/05/21 03/26/24 Rx activity #6 tabs albuterol sulfate 90 mcg/actuation 2 puff inhalation Q6H PRN 05/11/22 03/26/24 Rx aerosol inhaler (Ventolin HFA) shortness of breath or wheezing #54 grams aspirin 81 mg tablet,delayed 81 mg PO DAILY #30 tabs 01/09/23 03/26/24 Rx release (Adult Aspirin Regimen) duloxetine 60 mg capsule,delayed 60 mg PO BID #180 caps 01/09/23 03/26/24 Rx release ondansetron HCl 8 mg tablet 8 mg PO Q8H PRN nausea and 01/09/23 03/26/24 Rx vomiting #30 tabs pregabalin 25 mg capsule 25 mg PO BID 01/09/23 03/26/24 History prochlorperazine maleate 10 mg 10 mg PO Q6H PRN nausea and 01/09/23 03/26/24 Rx tablet vomiting #30 tabs losartan 50 mg tablet 50 mg PO DAILY #90 tabs 07/03/23 03/26/24 Rx metoprolol succinate 50 mg 50 mg PO DAILY #90 tabs 07/03/23 03/26/24 Rx tablet,extended release 24 hr trazodone 100 mg tablet 100 mg PO .COMPLEX #90 tabs 10/25/23 03/26/24 Rx trazodone 150 mg tablet 150 mg PO HS #90 tabs 10/25/23 03/26/24 Rx hydrochlorothiazide 25 mg tablet 25 mg PO DAILY #90 tabs 12/25/23 03/26/24 Rx omeprazole 40 mg capsule,delayed 40 mg PO BID #180 caps 12/27/23 03/26/24 Rx release zolpidem 10 mg tablet See Rx Instructions PO HS PRN 02/12/24 03/26/24 Rx insomnia #30 tabs theophylline 450 mg 900 mg (2 x 450 mg) PO HS #180 tabs 02/20/24 03/26/24 Rx tablet,extended release,12 hr albuterol sulfate 2.5 mg/3 mL 2.5 mg inhalation Q4H PRN Wheezing 03/17/24 03/26/24 History (0.083 %) solution for nebulization clobetasol 0.05 % topical cream 1 applic topical BID PRN Skin rash 03/17/24 03/26/24 History dexamethasone 4 mg tablet 4 mg PO DAILY 03/17/24 03/26/24 History dexamethasone 4 mg tablet 40 mg PO .Weekly 03/17/24 03/26/24 History diphenoxylate-atropine 2.5 1 tab PO QID PRN Diarrhea 03/17/24 03/26/24 History mg-0.025 mg tablet (Lomotil) metformin 500 mg tablet,extended 1,000 mg PO DAILY 03/17/24 03/26/24 History release 24 hr triamcinolone acetonide 0.1 % 1 applic topical BID PRN Rash 03/17/24 03/26/24 History topical cream oxycodone 5 mg tablet 5 mg PO Q6H PRN pain #120 tabs 03/24/24 03/26/24 Rx Past Med/Surg History Problem List (Updated 03/26/24 @ 14:59 by Ry Zaidi PA-C) Encephalopathy Back pain Generalized weakness (Acute) Elevated lactic acid level (Acute) Hypomagnesemia (Acute) Acute hypokalemia (Acute) AMS (altered mental status) (Acute) Insomnia (Acute) Erectile dysfunction Multiple myeloma Multiple myeloma-diagnosed by bone marrow biopsy April 2019. IgG monoclonal gammopathy Prothrombin gene mutation Heterozygous mutation diagnosed 2011 Osteoarthritis GERD (gastroesophageal reflux disease) Homocystinemia Homozygous MTHFR mutation diagnosed 2011 Prediabetes Clotting disorder (Chronic) Asthma (Chronic) Hypertension (Chronic) Medical History Anxiety GERD (gastroesophageal reflux disease) On home O2 COPD (chronic obstructive pulmonary disease) Interstitial lung disease Intrinsic asthma Neuropathy Head injury From logging accident;2011; Shingles 2019 MGUS (monoclonal gammopathy of unknown significance) 2018 Stroke Umbilical hernia Osteoarthritis Degenerative joint disease (DJD) of lumbar spine Concussion Unconscious Chemotherapy-induced neuropathy ACL (anterior cruciate ligament) tear History of left ACL tear Insomnia Lyme disease Treated in 2015 Surgical History History of bone marrow biopsy Previous back surgery Lumbar spine surgery;Dr. Gray;2002 Hx of colonoscopy History of autologous stem cell transplant 09/02/19 S/P tonsillectomy H/O shoulder surgery Status post repair long head biceps tendon rupture 2013-left shoulder Total of 6 procedures on the left shoulder and 6 procedures on the right shoulder. S/P left knee arthroscopy Status post arthroscopic surgery for torn meniscus 2015 Hx of cholecystectomy History of hernia repair Right inguinal hernia repair 09/01/2013-Dr. Anand Left inguinal hernia repair 11/2020 Family History Uncle Cancer Unknown type Father Unknown family medical history Pacemaker Mother , 79yo Unknown family medical history Sister Colonic polyp Son No problems noted. Daughter Diabetes Denies family history of Ovarian cancer Prostate cancer Coronary heart disease Breast cancer Social History Smoking Status: Unknown if ever smoked Second Hand Exposure: Yes; Do You Dip or Chew Tobacco: No; Preferred Language: Romanian Communication Ability: Effective Visual Impairment: No Limitations Hearing Ability: Normal Shaper Setter Required: No Beliefs That Will Affect Care: None marital status: Current Living Situation: Spouse current occupational status: disabled current occupation: [employer] How many Children do You have: 2 Feels Safe at Home: Declines to Answer Childhood Exposure to Second-Hand Smoke: Yes Diet: regular caffeine: Yes during the past year weight has: decreased > 10 lbs Dental Care, Regularly: Yes Physical Activity Frequency: 1-2 Times per Week Seatbelt Use: always Sunscreen Use: Yes Review of Systems Review of Systems: All systems reviewed & are unremarkable except as noted in Subjective Physical Exam Physical Exam: General: No acute distress Skin: Warm and dry Head: Normocephalic, atraumatic Eyes: PERRL, conjunctivae clear, sclera non-icteric Neck: Supple Cardio: Tachycardic, regular rhythm, no M/G/R, S1 and S2 normal Resp: No respiratory distress, Lungs CTA in all lobes bilaterally, no wheezes, rales, or rhonchi Abdomen: Soft, symmetric, nontender; no distention; No masses or hepatosplenomegaly MSK: No deformities; pulses palpable and equal; no edema. Neuro: Awake, alert Psych: Cooperating Results & Data Results & Data Vital Signs (Past 12 Hours) Vital Signs Temp Pulse Pulse Resp BP BP Pulse Ox 03/26/24 09:27 36.9 C 115 H 23 133/95 94 03/26/24 09:02 124 H 03/26/24 08:40 37 C 121 H 18 144/88 H 96 O2 Del Method 03/26/24 09:27 Room Air 03/26/24 09:02 03/26/24 08:40 Room Air Laboratory Results 03/26/24 09:52 Aerobic Blood Culture - Pending Blood Anaerobic Blood Culture - Pending 03/26/24 09:20 Aerobic Blood Culture - Pending Blood Anaerobic Blood Culture - Pending 03/26/24 03/26/24 03/26/24 Unknown 11:21 11:19 WBC RBC Hgb Hct MCV MCH MCHC RDW Std Deviation RDW Coeff of Amy Plt Count MPV Immature Gran % (Auto) Neut % (Auto) Lymph % (Auto) Bourbon % (Auto) Eos % (Auto) Baso % (Auto) Neut # (Auto) Lymph # (Auto) [place] # (Auto) Eos # (Auto) Baso # (Auto) Immature Gran # (Auto) Platelet Estimate Tear Drop Cells PT INR APTT PTT Ratio Sodium Potassium Chloride Carbon Dioxide Anion Gap BUN Creatinine Est Cr Clr Drug Dosing eGFR BUN/Creatinine Ratio Glucose Lactate 2.1 H* Calcium Magnesium Total Bilirubin AST ALT Alkaline Phosphatase Troponin I High Sens C-Reactive Protein 3.03 H Total Protein Albumin Globulin Albumin/Globulin Ratio Procalcitonin Urine Color Yellow Urine Appearance Clear Urine pH 6.5 Ur Specific Benton 1.014 Urine Protein Negative Urine Glucose (UA) Negative Urine Ketones 2+ H Urine Blood Negative Urine Nitrite Negative Urine Bilirubin Negative Urine Urobilinogen Negative Ur Leukocyte Esterase Negative Adenovirus (PCR) B. pertussis DNA (PCR) B.parapertussis DNA PCR C. pneumoniae DNA (PCR) Coronavirus OC43 (PCR) Coronavirus HKU1 (PCR) Coronavirus 229E (PCR) SARS-CoV-2 (PCR) Coronavirus NL63 (PCR) Human Metapneumovir PCR Influenza Type A (PCR) Influenza Type B (PCR) M. pneumoniae (PCR) Parainfluenza 1 (PCR) Parainfluenza 2 (PCR) Parainfluenza 3 (PCR) Parainfluenza 4 (PCR) RSV (PCR) Entero/Rhino (PCR) 03/26/24 03/26/24 09:20 08:56 WBC 3.67 L RBC 4.18 L Hgb 14.7 Hct 41.6 L MCV 99.5 MCH 35.2 H MCHC 35.3 RDW Std Deviation 49.1 H RDW Coeff of Amy 13.4 Plt Count 75 L MPV 12.1 Immature Gran % (Auto) 1.1 Neut % (Auto) 83.3 Lymph % (Auto) 2.2 Bourbon % (Auto) 12.3 Eos % (Auto) 0.8 Baso % (Auto) 0.3 Neut # (Auto) 3.06 Lymph # (Auto) 0.08 L Bour[place] # (Auto) 0.45 Eos # (Auto) 0.03 Baso # (Auto) 0.01 Immature Gran # (Auto) 0.04 Platelet Estimate Decreased L Tear Drop Cells 1+ PT 10.5 INR 1.0 APTT 27 PTT Ratio 1.0 Sodium 138 Potassium 2.8 L Chloride 99 Carbon Dioxide 24 Anion Gap 15 H BUN 15 Creatinine 1.16 Est Cr Clr Drug Dosing 91.7 eGFR 72.56 BUN/Creatinine Ratio 12.9 Glucose 127 H Lactate 2.3 H* Calcium 9.6 Magnesium 1.6 L Total Bilirubin 0.8 AST 21 ALT 19 Alkaline Phosphatase 90 Troponin I High Sens 14.1 C-Reactive Protein Total Protein 6.5 Albumin 4.5 Globulin 2.0 L Albumin/Globulin Ratio 2.3 H Procalcitonin 0.09 Urine Color Urine Appearance Urine pH Ur Specific Benton Urine Protein Urine Glucose (UA) Urine Ketones Urine Blood Urine Nitrite Urine Bilirubin Urine Urobilinogen Ur Leukocyte Esterase Adenovirus (PCR) Not Detected B. pertussis DNA (PCR) Not Detected B.parapertussis DNA PCR Not Detected C. pneumoniae DNA (PCR) Not Detected Coronavirus OC43 (PCR) Not Detected Coronavirus HKU1 (PCR) Not Detected Coronavirus 229E (PCR) Not Detected SARS-CoV-2 (PCR) Not Detected Coronavirus NL63 (PCR) Not Detected Human Metapneumovir PCR Not Detected Influenza Type A (PCR) Not Detected Influenza Type B (PCR) Not Detected M. pneumoniae (PCR) Not Detected Parainfluenza 1 (PCR) Not Detected Parainfluenza 2 (PCR) Not Detected Parainfluenza 3 (PCR) Not Detected Parainfluenza 4 (PCR) Not Detected RSV (PCR) Not Detected Entero/Rhino (PCR) Not Detected Diagnostic Findings Cervical Spine CT 03/26/24 08:50 CT OF THE CERVICAL SPINE WITHOUT CONTRAST CLINICAL HISTORY: Recent fall. COMPARISON STUDY: PET/CT August 13, 2023. TECHNIQUE: Helical axial images of the cervical spine were obtained without IV contrast. Sagittal and coronal reconstructions were viewed. Automated exposure control was utilized for the study. A dose lowering technique was utilized adhering to the principles of ALARA. FINDINGS: There are no cervical spine fractures. Moderate multilevel degenerative changes are present. Several lucent lesions within the cervical spine are likely degenerative in etiology. There is no prevertebral edema. Several mildly enlarged left-sided cervical lymph nodes are partially imaged. These nodes measure up to 1.1 cm. These are stable to slightly decreased in size since PET/CT of August 13, 2023. IMPRESSION: 1. No acute cervical spine fracture or subluxation. 2. Left cervical lymphadenopathy, partially imaged on this exam. These nodes are stable to slightly decreased in size since PET/CT of August 13, 2023. ACT 112: Negative or not required by law. Electronically signed by: Rafi Fontenot M.D. 03/26/2024 9:36 AM Chest X-Ray 03/26/24 08:50 XR chest 1V portable CLINICAL HISTORY: Sepsis. COMPARISON STUDY: Chest CT September 23, 2019. Plain CT March 19, 2024. FINDINGS: Lung volumes are normal. Lungs are clear. There is no pneumothorax or pleural effusion. Cardiac size is normal. Mediastinal contours are normal. There is no evidence for pulmonary edema. IMPRESSION: No acute cardiopulmonary findings. ACT 112: Negative or not required by law. Electronically signed by: Rafi Fontenot M.D. 03/26/2024 10:[address] 03/26/24 08:50 CT head/brain wo con CLINICAL HISTORY: 58 years-old Male with fell and hit head; ASA + thrombocytopenia. Acute head trauma status post fall TECHNIQUE: Multiple axial CT images of the head were obtained without contrast. A dose lowering technique was utilized adhering to the principles of ALARA. COMPARISON: CT cervical spine of same day FINDINGS: No acute intracranial hemorrhage, midline shift, intracranial mass, hydrocephalus, territorial ischemia or abnormal extra-axial collection. The calvarium is intact. The paranasal sinuses, mastoid air cells, and middle ear cavities are clear. IMPRESSION: No acute intracranial abnormality. ACT 112: Negative or not required by law. The above report was generated using voice recognition software. It may contain grammatical, syntax or spelling errors. Electronically signed by: Riley Pierre M.D. 03/26/2024 9:36 AM Code Status & VTE Plan VTE Prophylaxis Plan VTE Prophylaxis will be ordered: Yes Supervising Physician Co-Signing Physician Notes I personally saw and examined the patient. I independently reviewed the labs, EKG, imaging, problem list, medication list, past medical history and family history. I verified all rodriguez points and agree with Ry Zaidi PA-C with the following exceptions and/or additions: 58 year old male who presents to the ER with confusion and increased aggression with his O/E Alert but does not want to answer questions on orientation, HS RRR, no murmurs, Chest CTAB, Abdo SNT, pupils equal, not co-operative with full neurological exam but moving all 4 extremities equally A/P Acute encephalopathy - differential remains broad after normal brain MRI. Di scussed with neurology and recommend transfer to tertiary care center where alternative diagnoses than frontotemporal dementia can be ruled out faster with increased lab availability. I was present when EMBER discussed transfer with his and agreed to transfer. Transfer paperwork signed. He continues to not demonstrate any capacity to make his healthcare decisions. Hold oxycodone and zolpidem. Hypokalemia - agree with holding HCTZ, replacement ordered in the ER PG Care Time/CCT Total # of Minutes Spent Total Time Spent with Patient: Total time spent is greater than 50% in coordination of care (as documented) at patient's floor/unit and/or counseling patient: Coding Level of Care Code 55744 INT INP/OBS CARE 3/75MIN Diagnoses Encephalopathy G93.40 Multiple myeloma C90.00 Acute hypokalemia E87.6 Back pain M54.9 Hypertension I10 Asthma J45.909 Time Spent (min) 85
[2024-03-26 12:14] LABS: Thyroid Stimulating Hormone 0.618 uIu/ml (0.300-4.500)
[2024-03-26] MEDS: GADOBUTROL 65ML VIAL IV ONE (12:42)
--- NOTE | 2024-03-26 13:09 | Magnetic Resonance Report ---
MRI OF THE BRAIN WITHOUT AND WITH IV CONTRAST CLINICAL HISTORY: Change in personality, confusion ?frontal lobe CVA COMPARISON STUDY: Head CT performed earlier today. TECHNIQUE: Utilizing a 1.5 Rhonda magnet and dedicated coil, multiplanar, multiecho imaging of the br ain was performed pre and postcontrast administration. IV administration of 11 mL of Gadavist contra st was uneventful. Thin cut T1 post contrast imaging was performed. FINDINGS: There are no foci of restricted diffusion to suggest acute infarct. No acute intracranial h emorrhage, midline shift or mass effect is present. Brain volume is normal. Ventricular system is nor mal. Basal cisterns are patent. Flow-voids for the major intracranial vessels are present. No intracr anial mass or pathologic enhancement. 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 Calvarial signal is normal. IMPRESSION: 1. No acute intracranial findings. 2. No intracranial mass or pathologic enhancement. 3. 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 ACT 112: Negative or not required by law. Electronically signed by: Raif Fontenot M.D. 03/26/2024 1:08 PM
[2024-03-26] MEDS ORDERED: ACETAMINOPHEN 500 MG TAB PO PRN (15:09)
--- NOTE | 2024-03-26 15:56 | Communication Note ---
Date of Service: March 26, 2024 Patient trying to leave against medical advice from the emergency room. He is unable to demonstrate any understanding of why he is here or what investigations we have done. He was unable to do this earlier when I saw him on admission either. He refuses to now talk to me as I am a doctor despite me explaining that I cannot let him leave unless he shows he has capacity to make the decision. Security called. Care was discussed with his over the phone who is the presumed POA. She wishes him to stay admitted against his wishes since he lacks capacity. Discussed us medically treating delirium with Zyprexa which she is ok with since he currently presents a risk to both himself and staff. 5mg Zyprexia IM ordered.
[2024-03-26] MEDS: OLANZapine 10 MG/2.1 ML SDV IM STA (15:58)
--- OUTSIDE RECORDS SUMMARY | 2024-03-26 16:10 | External Medical Summary | Summary of Care ---
Author Name Unknown Organization [facility] Address [address] [facility] [place] [address] Phone [phone] Care Team Providers Care Night Coordinator Name Role Phone Michael Collins MD Primary Care Provi zehra Reason for Visit * Reason Comments Chemotherapy Cytoxan * Episode Based Medications (Routine) - Authorized Specialty Diagnoses / Procedures Referred By Contac t Referred To Contact Diagnoses Multiple myeloma not having achieved remission (HCC) Procedures DC DARATUMUMAB, HYALURONIDASE DC INJ, CYCLOPHOSPHAMIDE, NOS DC INJ CYCLOPHOSPHAMD [facility] Morgan Vásquez MD [address] [facility] [place] [address] Phone: tel: fax: Hematology/Oncology Treatment, [place] DEPT CLOSED - 03/26/23 [address] [facility] [place] [address] Phone: tel: fax: Referral ID Status Reason Start Date Expiration Date V isits Requested Visits Authorized [id number] Authorized 05/28/2022 05/12/2099 99 99 Encounter Details Date Type Department Care Team (Latest Contact Info) Description 02/20/2024 8:30 AM EDT Hem/Onc Treatment Hematology/Oncolog y Treatment, [place] [address] [place] [address] Kenyatta, Chair [address] [place] [address] Multiple myeloma not having achieved remission (HCC)*; Encounter for antineoplastic chemotherapy Allergies No known active allergiesdocumented as of this encounter (statuses as of 03/25/2024) Medications THEOPHYLLINE ER 450 MG PO [id number] :2 tablet at bedtime Take by mouth. Indications: 2 tablet at bedtime Active B COMPLEX FORMULA 1 PO TABS Take by mouth. Activ e MULTIVITAMINS PO CAPS 1 daily Active FOLIC ACID 1 MG PO TABS Take by mouth daily. Active METOPROLOL XL TBCR 50 MG OR 1 tab daily Active hydrochlorothia zide (HYDRODIURIL) 25 MG Tablet Take 1 Tablet by mouth in the morning. 1 tab daily . 5 Active losartan (COZAAR) 50 MG Tablet Take 1 Tablet by mouth in the morning. 1 tab daily. 5 Active VENTOLIN HFA 108 (90 BASE) MCG/ACT inhaler As needed 11 Active omega-3 1000 MG CAPS Take by mouth. Activ e Multiple Vitamins-Minera ls ([facility] IMMUNITY SUPPORT) CHEW Take by mouth. A ctive traZODone (DESYREL) 150 MG Tablet Take 250 mg by mouth at bedtime. Active omeprazole (PRILOSEC) 40 MG CPDR Take 1 Capsule by mouth in the morning and 1 Capsule before bedtime. Active albuterol sulfate (PROVENTIL) (2.5 MG/3ML) 0.083% nebulizer solution INHALE 1 VIAL VIA NEBULIZER EVERY 6 HOURS NEEDED FOR SHORTNESS OF BREATH OR WHEEZING Active acetaminophen (TYLENOL EXTRA STRENGTH) 500 MG Tablet Take 1 Tab by mouth every 6 hours as needed for Pain or Fever. 30 Tab 020 Active zolpidem (AMBIEN) 5 MG Tablet Take 1 Tablet by mouth at bedtime as needed for Sleep. Active Aspirin 81 MG Oral Tablet Chewable Take 1 Tablet by mouth in the morning. Active Diphenoxylate-A tropine 2.5-0.025 MG Oral Tablet (Lomotil)Indica tions:Multiple myeloma in remission (HCC),Diarrhea, unspecified type TAKE 1 TABLET BY MOUTH 4 TIMES A DAY NEEDED FOR DIARRHEA 60 Tab 021 Active Sildenafil Citrate 100 MG Oral Tablet 021 Active Clobetasol Propionate 0.05 % External Ointment (Temovate)Indic ations:Skin rash Apply topically to affected area 2 times a day . 30 g 2 022 Active B Complex Formula 1 (Lipotrop) Oral Tablet Active Levalbuterol HCl 1.25 MG/3ML Inhalation Nebulization Solution (Xopenex) INHALE CONTENTS OF 1 VIAL (3ML) EVERY 6 HOURS 023 Active oxygen IN GAS Administer 2 L/min(Oxygen) into nostril at bedtime. PATIENT INFORMATION: Kris Gonsalveselizabeth [address] [place] [address] [employer]: [email or web address] ORDER: Please start nocturnal oxygen via nasal cannula at a flow rate of 2 liters per minute with a stationary concentrator unit . Test date (during sleep): 09/16/2022 Minimal SPO2 was: 76 % Time spent below a SPO2 89% was 2 hrr 34 minutes. ESTIMATED DURATION OF NEED: The prescription of this equipment applies to rental period from date of this order till lifetime (99 months):99 PHYSICIAN ATTESTATION: I certify that the above medical necessity information is true, accurate and complete to the best of my knowledge. (electronically signed) Ish Caba MD Pulmonary Medicine, [address] [place] [address] [facility] Medical License Number: [id number] 1 Each 023 Active metFORMIN HCl ER (OSM) 500 MG Oral Tablet Extended Release 24 Hour 1 Tablet. 023 Active oxyCODONE HCl 5 MG Oral Tablet (Oxy IR) TAKE 1 TAB BY MOUTH EVERY 6 HOURS NEEDED FOR PAIN Active Triamcinolone Acetonide 0.1 % External Cream (Aristocort) Apply 2x daily to rashes areas on trunk/arms/legs during winter time mostly. 454 g 023 Active Acyclovir 800 MG Oral Tablet (Zovirax)Indica tions:Multiple myeloma not having achieved remission (HCC),History of autologous stem cell transplant (HCC) TAKE 1 TABLET BY MOUTH TWICE A DAY 180 Tablet 3 024 Active Prochlorperazin e Maleate 10 MG Oral Tablet (Compazine)Kasandra cations:Multipl e myeloma in remission (HCC) Take 1 Tablet by mouth every 6 hours as needed for Nausea. 60 Tablet 5 024 Active metFORMIN HCl ER 500 MG Oral Tablet Extended Release 24 Hour (Glucophage XR) Take 1 Tablet by mouth in the morning and 1 Tablet before bedtime. 024 Active Ondansetron HCl 8 MG Oral Tablet (Zofran)Indicat ions:Multiple myeloma (HCC) TAKE 1 TABLET BY MOUTH EVERY 8 HOURS NEEDED FOR NAUSEA 90 Tablet 1 024 Active Pregabalin 25 MG Oral Capsule (Lyrica) TAKE 1 CAPSULE BY MOUTH IN THE MORNING AND IN THE EVENING 60 Capsule 4 024 Active DULoxetine HCl 60 MG Oral Capsule Delayed Release Particles (Cymbalta) Take 1 Capsule by mouth in the morning and 1 Capsule before bedtime. 180 Capsule 1 024 2023 Discontinued dexAMETHasone 4 MG Oral Tablet (Decadron)Indic ations:Multiple myeloma not having achieved remission (HCC) Take 10 tablets once a week on weeks without Darzalex. Take 5 tablets on week of Darzalex injection. 35 Tablet 2 024 2023 Discontinued(Shahzad ryan) Hospital, Clinic, or Other Facility Administered Medication Ordered Dose Route Frequency Start Date End Date Status Albuterol Sulfate (Proventil) (2.5 MG/3ML) 0.083% inhalation solution 2.5 mgIndications:ILD (interstitial lung disease) (HCC),Chronic respiratory failure with hypoxia (HCC),Hypoxemia 2.5 mg NEBULIZER PRN 07/26/2023 07/25/2024 Active Albuterol Sulfate (Proventil) (5 MG/ML) 0.5% *conc* inhalation solution 2.5 mgIndications:ILD (interstitial lung disease) (HCC),Chronic respiratory failure with hypoxia (HCC),Hypoxemia 2.5 mg NEBULIZER PRN 07/26/2023 07/25/2024 Active documented as of this encounter (statuses as of 03/25/2024) Active Problems Problem Noted Date Diagnosed Date Nocturnal hypoxemia 09/02/2023 ILD (interstitial lung disease) 08/28/2022 Prothrombin gene mutation 08/28/2022 Asthma, moderate persistent 08/28/2022 Intermittent asthma with reliever use up to twic e per week 08/28/2022 Impingement syndrome of both shoulders Primary osteoarthritis, left shoulder 04/09/2022 Greater trochanteric bursitis of right hip 04/09 Primary osteoarthritis of both knees 07/14/2021 Primary osteoarthritis of both hands 07/14/2021 Primary osteoarthritis, left ankle and foot 08/2021 Chemotherapy-induced neuropathy 03/30/2021 Multiple myeloma not having achieved remission 0 12/30/2020 History of autologous stem cell transplant 09/01 Overview (09/02/2019): T 0 = 09/01/2019 Preparative Regimen: Melphalan 200 mg/m2 Stem Cell Dose: 5.96 X 10^6 CD 34/kg Encounter for antineoplastic chemotherapy 2019 Sinusitis 04/29/2019 Multiple myeloma in remission 04/29/2019 MGUS (monoclonal gammopathy of unknown significa nce) 04/14/2018 Asthma 01/03/2012 Essential hypertension 01/03/2012 Overview (02/11/2017): ICD-10 update of inactive term Concussion with loss of consciousness of 30 elena lucio or less 01/03/2012 Acute, but ill-defined, cerebrovascular disease 01/03/2012 Generalized osteoarthritis 04/14/2008 Degeneration of lumbosacral intervertebral disc 04/14/2008 documented as of this encounter (statuses as of 03/25/2024) Resolved Problems Problem Noted Date Diagnosed Date Resolved Date Asthma in remission 08/28/2022 08/29/19 Asthma, mild persistent 08/28/2022 0412/2022 Asthma, severe persistent 08/28/2022 Stem cell transplant candidate 08/17/2019 09/02/2019 documented as of this encounter (statuses as of 03/25/2024) Immunizations Name Administration Dates Next Due COVID-19 mRNA, LNP-s, No Pre serve, 2-Dose Series ([employer]) 01/17/2021,08/05/2020,07/08/2020 COVID-19, LNP-s, No Preserve , Bryant-sucrose, Ages 12+ (Pfizer) 09/26/2021 COVID-19, MRNA-LNP, PF, 30 M CG/0.3 mL, 12 YRS AND ABOVE, IM (PFIZER-Comirnaty) 02/01/2024 DTaP Dipth/Tet/Acell Pertussis (Infanrix), Peds 02/23/2021,11/11/2020,09/09/2020 HIB PRP-T, 4 Dose, PF, IM (H iberix, ActHib) 03/02/2021,11/11/2020,09/09/2020 Hepatitis B, 20+ yrs 02/23/2021,10/25/2020,09/09 IPV - Polio Virus Vaccine (Inact) 07/27/2021,,09/09/2020 MMR - Measles/Mumps/Rubella Vaccine 07/27/2021 Meningococcal MCV4O Conjugat e Vaccine (Menveo) 10/25/2020,09/09/2020 Pneumococcal Conjugate Vacc, 13 Valent (Prevnar) 09/09/2020,05/03/2020,03/04/2020 Pneumococcal Polysaccharide PPV23 (Pneumovax) 03/02/2021 Seasonal Influenza Vac., MDV , IM, 0.5 mL (Fluzone) 03/01/2014 Seasonal Influenza, MDCK, Tr ivalent, with Preserv, (Flucelvax) 02/01/2024 Seasonal Influenza, PF, 6 M & above, IM , (FluLaval or Fluzone) 02/07/2023,03/08/2022,02/09/2021,03/04 Seasonal Influenza, Quadriva lent, No Preserve, Mdck 02/15/2019 Zoster Vaccine Recombinant (Shingrix) 05/03/2020 ,03/04/2020 documented as of this encounter Social History Tobacco Use Types Packs/Day Years Used Date Smoking Tobacco: Former Cigarettes 1 5.5 0 11/1989 - 1995 Smokeless Tobacco: Never Alcohol Use Standard Drinks/Week Comments No 0 (1 standard drink = 0.6 oz pur e alcohol) Utilities Answer Date Recorded Do you have trouble paying y our heating, water, or electric bill? (Adult - for ages 18 years and over) Not on file 10/29/2023 Is your family able to pay t he heat, water, or electric bill? (Household - for ages 0-17 years) Not on file 10/29/2023 Does your family have access to good internet? (Household - for ages 0-17 years) Not on file 10/29/2023 Social Connections Answer Date Recorded How often do you feel lonely or isolated from those around you? (Adult - for ages 18 years and over) Not on file 10/29/2023 Sex and Gender Information Value Date Recorded Sex Assigned at Male 12/01/2021 8:49 PM EDT Legal Sex Male 5:28 AM EST Gender Identity Male 12/01/2021 8:49 PM EDT Sexual Orientation Straight 12/01/2021 8: 49 PM EDT Occupation Industry Job Start Date Job End Date Not on file Not on file Not on file Not on file documented as of this encounter Last Filed Vital Signs Vital Sign Reading Time Taken Comments Blood Pressure 129/82 02/20/2024 8:33 AM EDT Pulse 82 02/20/2024 8:33 AM EDT Temperature 36.7 C (98 F) 02/20/2024 8:33 AM EDT Respiratory Rate 16 02/20/2024 8:33 AM EDT Oxygen Saturation 92% 02/20/2024 8:33 AM EDT Inhaled Oxygen Concentration - - Weight 132.1 kg (291 lb 3.2 oz) 02/20/2024 8:33 AM EDT Height - - Body Mass Index 39.49 10/11/2023 9:26 AM EDT documented in this encounter Functional Status * Are you deaf or do you have serious difficulty hearing? Answer Date of Assessment Author No 08/31/2019 8:07 AM EDT Mckenzie Thomas se, RN * Are you blind or do you have serious difficulty seeing, even when wearing glasses? Answer Date of Assessment Author No 08/31/2019 8:07 AM EDT Mckenzie Thomas se, RN * Do you have serious difficulty walking or climbing stairs? (5 years old or older) Answer Date of Assessment Author No 08/31/2019 8:07 AM EDT Mckenzie Thomas se, RN * Do you have difficulty dressing or bathing? (5 years old or older) Answer Date of Assessment Author No 08/31/2019 8:07 AM EDT Mckenzie Thomas se, RN * Because of a physical, mental, or emotional condition, do you have difficulty doing errands alone such as visiting a doctors office or shopping? (15 years old or older) Answer Date of Assessment Author No 08/31/2019 8:07 AM EDT Mckenzie Thomas se, RN documented as of this encounter Mental Status * Because of a physical, mental, or emotional condition, do you have serious difficulty concentrating, remembering, or making decisions? (5 years old or older) Answer Entry Date Author No 08/31/2019 8:07 AM EDT Mckenzie Thomas se, RN documented in this encounter Nursing Notes * Brittanie Riggs RN - 02/20/2024 11:14 AM EDT Pt completed treatment without issues. IV removed. Goals: Pt will remain free from injury. Possible barriers to meeting goals: ambulation with IV pole Stability of the patient: Moderately stable - low risk of patient condition declining or worsening Summary regarding today's goals: Met: . Pt remained free from injury during treatment today. Discharged in stable condition. * Brittanie Riggs RN - 02/20/2024 10:04 AM EDT Chair 10 Chemotherapy/Immunotherapy agents: CYTOXAN Consent for chemotherapy drug treatment complete, dated, and signed? yes, date - 10/17/23 Treatment lab parameters met? Yes Has treatment weight changed > than 10%? No Treatment preauthorized? Yes VITALS Filed Vitals: 02/20/24 0833 BP: 129/82 Pulse: 82 Resp: 16 Temp: 36.7 C (98 F) SpO2: 92% Weight: 132.1 kg (291 lb 3.2 oz) Urine protein: N/A Patient education completed for treatment? Yes Blood transfusion consent signed and complete? NA Return appointment scheduled? Yes Patient had provider visit today? No - If no provider visit must complete Pretreatment Assessment PRE-TREATMENT ASSESSMENT: NEURO: fatigue:pt states this is most pronounced side effect of treatment CV/RESP: shortness of breath: pt states he has SOB with exertion at baseline; uses O2 PRN GI/: denies symptoms OTHER: denies any additional symptoms PAIN: 0 VAD accessed; NSS infusing. Safety and Risk for Injury Patient will remain free from injury. Ensure appropriate safety devices are available. Provide and maintain safe environment. Functional Status: Functional status at today's visit: Restricted in physically strenuous activity but ambulatory and able to carry out work on a light orsedentary nature, e.g. light house work, office work The drug name, dose, infusion volume, rate and route of administration, expiration date and time, appearance and physical integrity of the drug and rate set on the pump and sequencing of drug administration (as applicable) were verified by me and second sign-in RN. Patient was assessed for symptoms or adverse side effects during treatment. Patient Education: Patient instructed on use of heat and massage functions where applicable. Patient shown how to operate the heat function of the chair and to alert nursing staff if the chair feels too warm. Patient instructed on the risk of potential mcclendon while using the heat function. * Brittanie Riggs RN - 02/20/2024 8:48 AM EDT Chair 10, Cytoxan. CMP not processed at [facility] due to problem with specimen. Dr. Fahad berrios to proceedwith treatment based on CMP results from 02/12/24. documented in this encounter Plan of Treatment Upcoming Encounters Date Type Department Care Team (Late st Contact Info) Description 03/26/2024 8:00 AM EST Hem/Onc Treatment Hematology/Oncology Treatment, [place] [address] [place] [address] Kenyatta, Chair 5 Hem Onc Scenery [address] [place] [address] 04/01/2024 7:00 AM EST Laboratory Lab Mobile Phlebotomy [facility] [address] [facility] [place] [address] [facility] Mobile Home Draw [address] [place] [address] 04/08/2024 7:05 AM EST Laboratory Lab Mobile Phlebotomy [facility] [address] [place] [address] [facility], [facility] Mobile Home Draw [address] [place] [address] 04/15/2024 7:05 AM EST Laboratory Lab Mobile Phlebotomy [facility] [address] [place] [address] [facility], [facility] Mobile Home Draw [address] [place] [address] 04/22/2024 7:05 AM EST Laboratory Lab Mobile Phlebotomy [facility] [address] [place] [address] [facility], [facility] Mobile Home Draw [address] [facility] [place] [address] 04/29/2024 7:05 AM EST Laboratory Lab Mobile Phlebotomy [facility] [address] [place] [address] [facility], [facility] Mobile Home Draw [address] [facility] [place] [address] 05/05/2024 7:05 AM EST Laboratory Lab Mobile Phlebotomy [facility] [address] [place] [address] [facility] Mobile Home Draw [address] [facility] [place] [address] 06/04/2024 11:00 AM EST Office Visit Hematology/Oncology [facility] [address] [place] [id number] Morgan Vásquez MD [address] [facility] [place] [address] 07/28/2024 7:00 AM EDT Office Visit Neurology [facility] [address] [place] [address] Sandrita Pineda, PA-C [address] [place] [address] 09/02/2024 8:20 AM EDT Office Visit Pulmonary Medicine, [facility] [address] [place] [address] Ish Caba MD [address] [place] [address] 05/03/2025 7:40 AM EST Office Visit Dermatology [address] [place] [address] Albina Romo PA-C [address] [place] [address] [place] [address] Health Maintenance Due Date Last Done Comments Depression Screening 1976 Albumin/Creatinine Ratio 1982 Cologuard 2009 Fecal Occult Blood Test 2009 Sigmoidoscopy 2009 Colonoscopy 03/03/2023 03/03/2018, 03/03/2018 Colorectal Cancer Screening 03/03/2023 Lipid Panel 11/18/2024 11/19/2019, 07/11, 07/29/2009 GFR 03/18/2025 03/18/2024, 02/12, 03/04/2024, Additional history exists Diabetes Screening 03/18/2027 03/18/2024, 1 , 03/04/2024, Additional history exists DTap/Tdap Vaccines (4 - Tdap) 02/23/2031 02/23/2021, 11/11/2020, 09/09/2020 RETIRED - COLONOSCOPY-EVERY 5 YRS AGES 18-100 Discontinued 03/03/2018, 03/03/2018 Hepatitis C Screening Completed 08/07/2019 Zoster Vaccines Completed 05/03/2020, 03/04/2020 MENINGOCOCCAL (MENACTRA/MENVEO) Aged Out 10/25/2020, 09/09/2020 No longer eligibl e based on patient's age to complete this topic Hepatitis B Vaccine Completed 02/23/2021, 10/25/2020, 09/09/2020 Pneumococcal Vaccine: Pediatrics (0 to 5 Years) and At-Risk Patients (6 to 64 Years) Completed 12/25/2021, 03/02/2021, 09/09/2020, Additional history exists COVID-19 Vaccine Completed 02/01/2024, , 09/26/2021, Additional history exists HPV (Gardasil) Vaccine Aged Out No lo nger eligible based on patient's age to complete this topic documented as of this encounter Medical Devices Implanted Type Area Sales Representative Education Courses Device Identifier Shelf Expiration Date Model / Serial / Lot Mesh Plug Xlarge [id number] - [id number] Implanted:Qty: 1 on 12/09/2020 by John Zaragoza MD at [facility] Left: Groin CR BARD : DAVOL 05/09/2023 [id number] / / [id number] documented as of this encounter Visit Diagnoses Diagnosis Multiple myeloma not having achieved remission (HCC)- Primary Multiple myeloma, without mention of having achieved remission Encounter for antineoplastic chemotherapy documented in this encounter Administered Medications Inactive Administered Medications - up to 3 most recent administrations Medication Order MAR Action Action Date Dose Rate Site cycloPHOSphamide (Cytoxan) 740 mg in NSS 250 mL infusion 740 mg (rounded from 735 mg = 300 mg/m2 2.45 m2 Treatment Plan BSA from Recorded weight), IV Piggyback, Cyclophosphamide doses over 1g should be in 500 mL. May extend infusion to 1 hour if not tolerated., ONCE, 1 dose, On Lilibeth 02/20/24 at 0930Indications:Multiple myeloma not having achieved remission (HCC) Start Infusion 02/20/2024 10:13 AM EDT 740 mg 517.4 mL/hr dexAMETHasone (Decadron) tab 40 mg 40 mg, Oral, ONCE, On Lilibeth 02/20/24 at 0930, For 1 doseIndications:Multiple myeloma not having achieved remission (HCC) Given 02/20/2024 8:59 AM EDT 40 mg NSS infusion FOR HYDRATION Intravenous, at 500 mL/hr Administer over 2 Hours, ONCE, 1 dose, On Lilibeth 02/20/24 at 0930Indications:Multiple myeloma not having achieved remission (HCC) Start Infusion 02/20/2024 8:53 AM EDT 1,000 mL 500 mL/hr NSS infusion FOR HYDRATION Intravenous, at 50 mL/hr Administer over 10 Hours, CONTINUOUS, Starting on Lilibeth 02/20/24 at 0930, Until Lilibeth 02/20/24 at 1517Indications:Multiple myeloma not having achieved remission (HCC) Start Infusion 02/20/2024 8:51 AM EDT 500 mL 50 mL/hr ondansetron (Zofran) tab 8 mg 8 mg, Oral, ONCE, On Lilibeth 02/20/24 at 0930, For 1 doseIndications:Multiple myeloma not having achieved remission (HCC) Given 02/20/2024 8:59 AM EDT 8 mg documented in this encounter Advance Directives * Full Code (Latest Code Status on File) Date Activated Date Inactivated Comments 12/09/2020 11:20 AM 12/09/2020 4:24 PM This order reflects the patients wishes and were consensually agreed upon. Question Answer Comments Discussion of Advance Directives occurred with: Patient Does the patient have a Living Will? No Does the patient have Health Care Power of Attor coco? No * Full Code Date Activated Date Inactivated Comments 08/31/2019 9:52 AM 09/16/2019 4:31 PM This order re flects the patients wishes and were consensually agreed upon. Question Answer Comments Discussion of Advance Directives occurred with: Patient/Family Does the patient have a Living Will? No Does the patient have Health Care Power of Attor coco? No Care Teams Night Coordinator Relationship Specialty Start Date End Date Michael Collins MD [address] [place] [address] [place] [address] PCP - General Internal Medicine 03/01/14 documented as of this encounter
--- OUTSIDE RECORDS SUMMARY | 2024-03-26 16:10 | External Medical Summary | Summary of Care ---
Author Name Unknown Organization [facility] Address [address] [facility] [place] [address] Phone [phone] Care Team Providers Care Pe Teacher Name Role Phone Michael Collins MD Primary Care Provi zehra Reason for Visit * Reason Comments Chemotherapy C41/D8 -Cytoxan * Episode Based Medications (Routine) - Authorized Specialty Diagnoses / Procedures Referred By Contjuanito t Referred To Contact Diagnoses Multiple myeloma not having achieved remission (HCC) Procedures [place] DARATUMUMAB, HYALURONIDASE [place] INJ, CYCLOPHOSPHAMIDE, NOS [place] INJ CYCLOPHOSPHAMD [facility]IC Morgan Vásquez MD [address] [place] [address] Phone: tel: fax: Hematology/Oncology Treatment, [place] DEPT CLOSED - 03/26/23 200 [facility] [place] [address] Phone: tel: fax: Referral ID Status Reason Start Date Expiration Date V isits Requested Visits Authorized [id number] Authorized 05/28/2022 05/12/2099 99 99 Encounter Details Date Type Department Care Team (Latest Contact Info) Description 02/13/2024 8:30 AM EDT Hem/Onc Treatment Hematology/Oncolog y Treatment, [place] [address] [place] [address] Kenyatta, Chair 4 Hem Onc Scenery 200 [facility] [place] [address] Multiple myeloma not having achieved remission (HCC)*; Encounter for antineoplastic chemotherapy Allergies No known active allergiesdocumented as of this encounter (statuses as of 03/26/2024) Medications THEOPHYLLINE ER 450 MG PO [id number] :2 tablet at bedtime Take by mouth. [...] by mouth. Activ e Multiple Vitamins-Minera ls ([facility] IMMUNITY SUPPORT) CHEW Take by mouth. [...] needed for Pain or Fever. 30 Tab Active zolpidem (AMBIEN) 5 MG Tablet Take [...] into nostril at bedtime. 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 Multiple myeloma not having [...] as of this encounter (statuses as of 03/26/2024) Resolved Problems Problem Noted Date Diagnosed Date Resolved Date Asthma in remission 08/28/2022 08/29/19 Asthma, mild persistent 08/28/202208/11 Asthma, severe persistent 08/28/2022 Stem cell transplant candidate 08/17/2019 09/02/2019 documented as of this encounter (statuses as of 03/26/2024) Immunizations Name Administration Dates Next Due COVID-19 mRNA, LNP-s, No Pre serve, 2-Dose Series ([employer]) 01/17/2021,08/05/2020,07/08/2020 COVID-19, LNP-s, No Preserve , Bryant-sucrose, Ages 12+ (Pfizer) 09/26/2021 COVID-19, MRNA-LNP, PF, 30 M CG/0.3 mL, 12 YRS AND ABOVE, IM (PFIZER-Comirnat) 02/01/2024 DTaP Dipth/Tet/Acell Pertussis (Infanrix), Peds 02/23/2021,11/11/2020,09/09/2020 [...] Sign Reading Time Taken Comments Blood Pressure 114/84 02/13/2024 8:25 AM EDT Pulse 83 02/13/2024 8:25 AM EDT Temperature 36.4 C (97.6 F) 02/13/2024 8:25 AM ED T Respiratory Rate 16 02/13/2024 8:25 AM EDT Oxygen Saturation 94% 02/13/2024 8:25 AM EDT Inhaled Oxygen Concentration - - Weight 131.4 kg (289 lb 9.6 oz) 02/13/2024 8:25 AM EDT Height - - Body Mass Index 39.28 10/11/2023 9:26 AM EDT documented in this [...] Assessment Author No 08/31/2019 8:07 AM EDT Remsen, Ro se M, RN * Do you have difficulty dressing [...] documented in this encounter Nursing Notes * Manisha Fraser RN - 02/13/2024 11:09 AM EDT Goals: Patient will remain free from injury. Possible barriers to meeting goals: ambulating with IV pole, pain Stability of the patient: Moderately stable - low risk of patient condition declining or worsening Summary regarding today's goals: Met: pt remained free of harm today Patient tolerated treatment well without any acute issues or problems. Patient left facility in stable condition and denied any further needs. * Manisha Fraser RN - 02/13/2024 8:29 AM EDT Chair 10. IV inserted. Patient is feeling well today, no acute issues or complaints. Chemotherapy/Immunotherapy agents: CYTOXAN Consent for chemotherapy drug treatment complete, dated, and signed? yes, date - 10/17/2023 Treatment lab parameters met? Yes Has treatment weight changed > than 10%? No Treatment preauthorized? Yes VITALS Filed Vitals: 02/13/24 0825 BP: 114/84 Pulse: 83 Resp: 16 Temp: 36.4 C (97.6 F) TempSrc: Tympanic SpO2: 94% Weight: 131.4 kg (289 lb 9.6 oz) Urine protein: N/A Patient education completed for treatment? Yes Blood transfusion consent signed and complete? NA Return appointment scheduled? Yes Patient had provider visit today? No - If no provider visit must complete Pretreatment Assessment Functional Status: Functional status at today's visit: Fully active, able to carry on all pre-disease performance without restriction The drug name, dose, infusion volume, rate [...] potential mcclendon while using the heat function. PRE-TREATMENT ASSESSMENT: NEURO: denies symptoms CV/RESP: denies symptoms GI/: denies symptoms OTHER: denies any additional symptoms PAIN: 1-2 pain location : has pain daily, generalized, and takes PRN oxycodone to help , which it does Safety and Risk for Injury Patient will remain free from injury. Ensure appropriate safety devices are available. Provide and maintain safe environment. documented in this encounter Plan of Treatment Upcoming Encounters Date Type Department Care Team (Late st Contact Info) Description 03/26/2024 8:00 AM EST Hem/Onc Treatment Hematology/Oncology Treatment, [place] 200 [facility] [place] [address] Kenyatta, Chair 5 Hem Onc [facility] 200 [facility] [place] [address] 04/01/2024 7:00 AM EST Laboratory Lab Mobile Phlebotomy [facility] [address] [place] [address] Mvmg, Gml Mobile Home Draw [address] [place] [address] 04/08/2024 7:05 AM EST Laboratory Lab Mobile Phlebotomy [facility] [address] [place] [address] Mvmg, Gml Mobile Home Draw [address] [facility] [place] [address] 04/15/2024 7:05 AM EST Laboratory Lab Mobile Phlebotomy [facility] [address] [place] [address] Mvmg, Gml Mobile Home Draw [address] [place] [address] 04/22/2024 7:05 AM EST Laboratory Lab Mobile Phlebotomy [facility] [address] [place] [address] Mvmg, Gml Mobile Home Draw [address] [place] [address] 04/29/2024 7:05 AM EST Laboratory Lab Mobile Phlebotomy [facility] [address] [place] [address] Mvmg, Gml Mobile Home Draw [address] [place] [address] 05/05/2024 7:05 AM EST Laboratory Lab Mobile Phlebotomy [facility] [address] [place] [address] Mvmg, Gml Mobile Home Draw [address] [place] [address] 06/04/2024 11:00 AM EST Office Visit Hematology/Oncology [facility] [address] [place] [address] Morgan Vásquez MD [address] [place] [address] 07/28/2024 7:00 AM EDT Office Visit Neurology [facility] [address] [place] [address] Sandrita Pineda PA-C [address] [place] [address] 09/02/2024 8:20 AM EDT Office Visit Pulmonary Medicine, [facility] [address] [place] [address] Ish Caba MD [address] [place] [address] 05/03/2025 7:40 AM EST Office Visit Dermatology [address] [place] [address] Albina Romo PA-C [address] [place] [address] [place] [address] Health Maintenance Due Date Last Done Comments Depression Screening 1976 Albumin/Creatinine Ratio 1982 Cologuard 2009 Fecal Occult Blood Test 2009 Sigmoidoscopy 2009 Colonoscopy 03/03/2023 03/03/2018, 03/03/2018 Colorectal Cancer Screening 03/03/2023 Lipid Panel 11/18/2024 11/19/2019, 07/11, 07/29/2009 GFR 03/25/2025 03/25/2024, 11/0 10/2023, 03/11/2024, Additional history exists Diabetes Screening 03/25/2027 03/25/2024, 1 05/18/2023, 03/11/2024, Additional history exists DTap/Tdap Vaccines (4 - [...] this encounter Medical Devices Implanted Type Area Can Dragger Device Identifier Shelf Expiration Date Model / Serial / Lot Mesh Plug Xlarge [id number] - [id number] Implanted:Qty: 1 on 12/09/2020 by John Zaragoza MD at OR [facility] Left: Groin CR BARD : DAVOL 05/09/2023 [id number] / / [id number] documented as of this encounter Visit Diagnoses [...] not tolerated., ONCE, 1 dose, On Lilibeth 02/13/24 at 0915Indications:Multiple myeloma not having achieved remission (HCC) Start Infusion 02/13/2024 9:40 AM EDT 740 mg 517.4 mL/hr dexAMETHasone (Decadron) tab 40 mg 40 mg, Oral, ONCE, On Lilibeth 02/13/24 at 0845, For 1 doseIndications:Multiple myeloma not having achieved remission (HCC) Given 02/13/2024 9:10 AM EDT 40 mg NSS infusion FOR HYDRATION Intravenous, at 500 mL/hr Administer over 2 Hours, ONCE, 1 dose, On Lilibeth 02/13/24 at 0915Indications:Multiple myeloma not having achieved remission (HCC) Start Infusion 02/13/2024 8:42 AM EDT 1,000 mL 500 mL/hr NSS infusion FOR HYDRATION Intravenous, at 50 mL/hr Administer over 10 Hours, CONTINUOUS, Starting on Lilibeth 02/13/24 at 0915, Until Lilibeth 02/13/24 at 1511Indications:Multiple myeloma not having achieved remission (HCC) Start Infusion 02/13/2024 8:42 AM EDT 500 mL 50 mL/hr ondansetron (Zofran) tab 8 mg 8 mg, Oral, ONCE, On Lilibeth 02/13/24 at 0845, For 1 doseIndications:Multiple myeloma not having achieved remission (HCC) Given 02/13/2024 9:10 AM EDT 8 mg documented in this [...] Power of Attor coco? No Care Teams Pe Teacher Relationship Specialty Start Date End Date Michael Collins MD [address] [place] [address] [place] [address] PCP - General Internal Medicine 03/01/14 documented as of this encounter
--- OUTSIDE RECORDS SUMMARY | 2024-03-26 16:10 | External Medical Summary | Summary of Care ---
Author Name Unknown Organization [facility] Address [address] [facility] [place] [address] Phone [phone] Care Team Providers Care Agricultural Technician Name Role Phone Michael Collins MD Primary Care Provi zehra Reason for Visit * Reason Comments Chemotherapy C41/D8 -Cytoxan * Episode Based Medications (Routine) - Authorized Specialty Diagnoses / Procedures Referred By Contjuanito t Referred To Contact Diagnoses Multiple myeloma not having achieved remission (HCC) Procedures [place] DARATUMUMAB, HYALURONIDASE GA INJ, CYCLOPHOSPHAMIDE, NOS GA INJ CYCLOPHOSPHAMD AUROMEDIC Morgan Vásquez MD [address] [place] [address] Phone: tel: fax: Hematology/Oncology Treatment, [place] DEPT CLOSED - 03/26/23 200 [facility] [place] [address] Phone: tel: fax: Referral ID Status Reason Start Date Expiration Date V isits Requested Visits Authorized [id number] Authorized 05/28/2022 05/12/2099 99 99 Encounter Details Date Type Department Care Team (Latest Contact Info) Description 02/13/2024 8:30 AM EDT Hem/Onc Treatment Hematology/Oncolog y Treatment, [place] [address] [place] [address] Kenyatta, Chair 4 Hem Onc Scenery 200 [facility] [place] [address] Multiple myeloma not having achieved remission (HCC)*; Encounter for antineoplastic chemotherapy Allergies No known active allergiesdocumented as of this encounter (statuses as of 03/26/2024) Medications THEOPHYLLINE ER 450 MG PO [id number] :2 tablet at bedtime Take by mouth. [...] by mouth. Activ e Multiple Vitamins-Minera ls ([facility] IMMUNITY SUPPORT) CHEW Take by mouth. A [...] nostril at bedtime. PATIENT INFORMATION: Kris Sweettania [address] [place] [address] [employer]: [email or web address] ORDER: Please start nocturnal oxygen via nasal [...] (electronically signed) Ish Caba MD Pulmonary Medicine, [address] [place] [address] [facility] Medical License Number: [id number] 1 Each 023 Active metFORMIN HCl ER [...] mRNA, LNP-s, No Pre serve, 2-Dose Series ([employer]) 01/17/2021,08/05/2020,07/08/2020 COVID-19, LNP-s, No Preserve , Bryant-sucrose, [...] Assessment Author No 08/31/2019 8:07 AM EDT Jefferson, Ro se M, RN * Do you have difficulty dressing or bathing? (5 years old or older) Answer Date of Assessment Author No 08/31/2019 8:07 AM EDT Mckenzie Tohmas se, RN * Because of a physical, [...] 8:00 AM EST Hem/Onc Treatment Hematology/Oncology Treatment, [place] 200 [facility] [place] [address] Kenyatta, Chair 5 Hem Onc [facility] 200 [facility] [address] 04/01/2024 7:00 AM EST Laboratory Lab Mobile Phlebotomy [facility] [address] [place] [address] Mvmg, Gml Mobile Home Draw [address] [email or web address] [address] 04/08/2024 7:05 AM EST Laboratory Lab Mobile Phlebotomy [facility] [address] [email or web address] [address] Mvmg, Gml Mobile Home Draw [address] [facility] [place] [address] 04/15/2024 7:05 AM EST Laboratory Lab Mobile Phlebotomy [facility] [address] [email or web address] [address] Mvmg, Gml Mobile Home Draw [address] [place] [address] 04/22/2024 7:05 AM EST Laboratory Lab Mobile Phlebotomy [facility] [address] [email or web address] [address] Mvmg, Gml Mobile Home Draw [address] [place] [address] 04/29/2024 7:05 AM EST Laboratory Lab Mobile Phlebotomy [facility] [address] [email or web address] [address] Mvmg, Gml Mobile Home Draw [address] [place] [address] 05/05/2024 7:05 AM EST Laboratory Lab Mobile Phlebotomy [facility] [address] [email or web address] [address] Mvmg, Gml Mobile Home Draw [address] [place] [address] 06/04/2024 11:00 AM EST Office Visit Hematology/Oncology [facility] [address] [place] [address] Morgan Vásquez MD [address] [place] [address] 07/28/2024 7:00 AM EDT Office Visit Neurology [facility] [address] [place] [address] Sandrita Pineda PA-C [address] [place] [address] 09/02/2024 8:20 AM EDT Office Visit Pulmonary Medicine, [facility] [address] [place] [address] Ish Caba MD [address] [place] [address] 05/03/2025 7:40 AM EST Office Visit Dermatology [address] [place] [address] Albina Romo PA-C [address] [place] [address] [place] [address] Health Maintenance Due Date Last Done Comments [...] this encounter Medical Devices Implanted Type Area Master Planner Device Identifier Shelf Expiration Date Model / Serial / Lot Mesh Plug Xlarge [id number] - [id number] Implanted:Qty: 1 on 12/09/2020 by John Zaragoza MD at OR [facility] Left: Groin CR BARD : DAVOL 05/09/2023 [id number] / / [id number] documented as of this encounter Visit Diagnoses [...] Power of Attor coco? No Care Teams Agricultural Technician Relationship Specialty Start Date End Date Michael Collins MD [address] [place] [address] [place] [address] PCP - General Internal Medicine 03/01/14 documented as of this encounter
--- OUTSIDE RECORDS SUMMARY | 2024-03-26 16:10 | External Medical Summary | Summary of Care ---
Author Name Unknown Organization [facility] Address [address] [facility] [place] [address] Phone [phone] Care Team Providers Care Collection Development Librarian Name Role Phone Michael Collins MD Primary Care Provi zehra Reason for Visit * Reason Comments Chemotherapy Cytoxan * Episode Based Medications (Routine) - Authorized Specialty Diagnoses / Procedures Referred By Contac t Referred To Contact Diagnoses Multiple myeloma not having achieved remission (HCC) Procedures [place] DARATUMUMAB, HYALURONIDASE RI INJ, CYCLOPHOSPHAMIDE, NOS RI INJ CYCLOPHOSPHAMD AUROMEDIC Morgan Vásquez MD 200 [facility] [place] [address] Phone: tel: fax: Hematology/Oncology Treatment, [place] DEPT CLOSED - 03/26/23 200 [facility] [place] [address] Phone: tel: fax: Referral ID Status Reason Start Date Expiration Date V isits Requested Visits Authorized [id number] Authorized 05/28/2022 05/12/2099 99 99 Encounter Details Date Type Department Care Team (Latest Contact Info) Description 02/20/2024 8:30 AM EDT Hem/Onc Treatment Hematology/Oncolog y Treatment, [place] [address] [place] [address] Kenyatta, Chair [address] [place] [address] Multiple myeloma not having achieved remission (HCC)*; Encounter for antineoplastic chemotherapy Allergies No known active allergiesdocumented as of this encounter (statuses as of 03/25/2024) Medications THEOPHYLLINE ER 450 MG PO [id number] :2 tablet at bedtime Take by mouth. [...] nostril at bedtime. PATIENT INFORMATION: Kris Gons[address]izabeth [address] [place] [address] [employer]: [employer] ORDER: Please start nocturnal oxygen via nasal [...] (electronically signed) Ish Caba MD Pulmonary Medicine, [address] [place] [address] [facility] Medical License Number: [id number] 1 Each 023 Active metFORMIN HCl ER [...] mRNA, LNP-s, No Pre serve, 2-Dose Series ([employer]) 01/17/2021,08/05/2020,07/08/2020 COVID-19, LNP-s, No Preserve , Bryant-sucrose, [...] Patient instructed on the risk of potential mcclenodn while using the heat function. * Brittanie Riggs RN - 02/20/2024 8:48 AM EDT Chair 10, Cytoxan. CMP not processed at [facility] due to problem with specimen. Dr. Fahad berrios to proceedwith treatment based on CMP results from 02/12/24. documented in this encounter Plan of Treatment Upcoming Encounters Date Type Department Care Team (Late st Contact Info) Description 03/26/2024 8:00 AM EST Hem/Onc Treatment Hematology/Oncology Treatment, [place] [address] [place] [address] Kenyatta, Chair 5 Hem Onc [address] [place] [address] 04/01/2024 7:00 AM EST Laboratory Lab Mobile Phlebot[facility] [address] [facility] [place] [address] Mvmg, Gml Mobile Home Draw [address] [email or web address] [address] 04/08/2024 7:05 AM EST Laboratory Lab Mobile Phlebotomy [facility] [address] [email or web address] [address] Mvmg, Gml Mobile Home Draw [address] [place] [address] 04/15/2024 7:05 AM EST Laboratory Lab Mobile Phlebotomy [facility] [address] [email or web address] [address] Mvmg, Gml Mobile Home Draw [address] [place] [address] 04/22/2024 7:05 AM EST Laboratory Lab Mobile Phlebotomy [facility] [address] [email or web address] [address] Mvmg, Gml Mobile Home Draw [address] [facility] [place] [address] 04/29/2024 7:05 AM EST Laboratory Lab Mobile Phlebotomy [facility] [address] [email or web address] [address] Mvmg, Gml Mobile Home Draw [address] [facility] [place] [address] 05/05/2024 7:05 AM EST Laboratory Lab Mobile Phlebotomy [facility] [address] [email or web address] [address] Mvmg, Gml Mobile Home Draw [address] [facility] [place] [address] 06/04/2024 11:00 AM EST Office Visit Hematology/Oncology [facility] [address] [place] [address] Morgan Vásquez MD 200 [facility] [place] [address] 07/28/2024 7:00 AM EDT Office Visit Neurology [facility] [address] [place] [address] Sandrita Pineda, PA-C [address] [place] [address] 09/02/2024 8:20 AM EDT Office Visit Pulmonary Medicine, [facility] [address] [place] [address] Ish Caba MD [address] [place] [address] 05/03/2025 7:40 AM EST Office Visit Dermatology [address] [place] [address] Albina Romo PA-C [address] [place] [address] [place] [address] Health Maintenance Due Date Last Done Comments [...] this encounter Medical Devices Implanted Type Area Director [employer] Device Identifier Shelf Expiration Date Model / Serial / Lot Mesh Plug Xlarge [id number] - [id number] Implanted:Qty: 1 on 12/09/2020 by John Zaragoza MD at OR [facility] Left: Groin CR BARD : DAVOL 05/09/2023 [id number] / / [id number] documented as of this encounter Visit Diagnoses [...] Power of Attor coco? No Care Teams Collection Development Librarian Relationship Specialty Start Date End Date Michael Collins MD [address] [place] [address] [place] [address] PCP - General Internal Medicine 03/01/14 documented as of this encounter
--- OUTSIDE RECORDS SUMMARY | 2024-03-26 16:10 | External Medical Summary | Summary of Care ---
Author Name Unknown Organization [facility] Address [address] [facility] [place] [address] Phone [phone] Care Team Providers Care Technical Associate Name Role Phone Michael Collins MD Primary Care Provi zehra Reason for Visit * Reason Comments Chemotherapy C41/D8 -Cytoxan * Episode Based Medications (Routine) - Authorized Specialty Diagnoses / Procedures Referred By Contjuanito t Referred To Contact Diagnoses Multiple myeloma not having achieved remission (HCC) Procedures [place] DARATUMUMAB, HYALURONIDASE [place] INJ, CYCLOPHOSPHAMIDE, NOS [place] INJ CYCLOPHOSPHAMD [facility]EDIC Morgan Vásquez MD [address] [place] [address] Phone: tel: fax: Hematology/Oncology Treatment, [place] DEPT CLOSED - 03/26/23 200 [facility] [place] [address] Phone: tel: fax: Referral ID Status Reason Start Date Expiration Date V isits Requested Visits Authorized [id number] Authorized 05/28/2022 05/12/2099 99 99 Encounter Details Date Type Department Care Team (Latest Contact Info) Description 02/13/2024 8:30 AM EDT Hem/Onc Treatment Hematology/Oncolog y Treatment, [place] [address] [place] [address] Kenyatta, Chair 4 Hem Onc Scenery 200 [facility] [place] [address] Multiple myeloma not having achieved remission (HCC)*; Encounter for antineoplastic chemotherapy Allergies No known active allergiesdocumented as of this encounter (statuses as of 03/26/2024) Medications THEOPHYLLINE ER 450 MG PO [id number] :2 tablet at bedtime Take by mouth. [...] by mouth. Activ e Multiple Vitamins-Minera ls ([facility] IMMUNITY SUPPORT) CHEW Take by mouth. A [...] nostril at bedtime. PATIENT INFORMATION: Kris Sweettania [address] [place] [address] [employer]: [email or web address] ORDER: Please start nocturnal oxygen via nasal [...] (electronically signed) Ish Caba MD Pulmonary Medicine, [address] [place] [address] [facility] Medical License Number: [id number] 1 Each 023 Active metFORMIN HCl ER [...] mRNA, LNP-s, No Pre serve, 2-Dose Series (Yovigo) 01/17/2021,08/05/2020,07/08/2020 COVID-19, LNP-s, No Preserve , Bryant-sucrose, [...] Assessment Author No 08/31/2019 8:07 AM EDT [place], Ro se M, RN * Do you [...] 8:00 AM EST Hem/Onc Treatment Hematology/Oncology Treatment, [place] [address] [facility] [place] [address] Kenyatta, Chair 5 Hem Onc [facility] [address] [place] [address] Arrived 04/01/2024 7:00 AM EST Laboratory [facility] [address] [place] [address] [facility], G[facility] Mobile Home Draw [address] [place] [address] 04/08/2024 7:05 AM EST [facility] [address] [place] [address] M[facility], Gml Mobile Home Draw [address] [facility] [place] [address] 04/15/2024 7:05 AM EST Laboratory [facility] [address] [place] [address] Mvmg, Gml Mobile Home Draw [address] [place] [address] 04/22/2024 7:05 AM EST Laboratory [facility] [address] [place] [address] Mvmg, Gml Mobile Home Draw [address] [facility] [place] [address] 04/29/2024 7:05 AM EST Laboratory [facility] [address] [place] [address] Mvmg, Gml Mobile Home Draw [address] [place] [address] 05/05/2024 7:05 AM EST [facility] [address] [place] [address] Mvmg, Gml Mobile Home Draw [address] [place] [address] 06/04/2024 11:00 AM EST Office Visit Hematology/Oncology [facility] [address] [place], [place] [address] Morgan Vásquez MD [address] [place] [address] 07/28/2024 7:00 AM EDT Office Visit Neurology [facility] [address] [place] [address] Sandrita Pindea PA-C [address] [place] [address] 09/02/2024 8:20 AM EDT Office Visit Pulmonary Medicine, [facility] [address] [place] [address] Ish Caba MD [address] [place] [address] 05/03/2025 7:40 AM EST Office Visit Dermatology [address] [place] [address] Albina Romo PA-C [address] [place] [address] [place] [address] Health Maintenance Due Date Last Done Comments [...] this encounter Medical Devices Implanted Type Area Solar Installation Manager Device Identifier Shelf Expiration Date Model / Serial / Lot Mesh Plug Xlarge [id number] - [id number] Implanted:Qty: 1 on 12/09/2020 by John Zaragoza MD at OR [facility] Left: Groin CR BARD : DAVOL 05/09/2023 [id number] / / [id number] documented as of this encounter Visit Diagnoses [...] Power of Attor coco? No Care Teams Technical Associate Relationship Specialty Start Date End Date Michael Collins MD [address] [place] [address] [place] [address] PCP - General Internal Medicine 03/01/14 documented as of this encounter
--- OUTSIDE RECORDS SUMMARY | 2024-03-26 16:10 | External Medical Summary | Summary of Care ---
Author Name Unknown Organization [facility] Address [address] [facility] [place] [address] Phone [phone] Care Team Providers Care Shaping Machine Tender Name Role Phone Michael Collins MD Primary Care Provi zehra Reason for Visit * Reason Comments Chemotherapy C41/D8 -Cytoxan * Episode Based Medications (Routine) - Authorized Specialty Diagnoses / Procedures Referred By Contjuanito t Referred To Contact Diagnoses Multiple myeloma not having achieved remission (HCC) Procedures [place] DARATUMUMAB, HYALURONIDASE [place] INJ, CYCLOPHOSPHAMIDE, NOS SD INJ CYCLOPHOSPHAMD AUROMEDIC Morgan Vásquez MD [address] [place] [address] Phone: tel: fax: Hematology/Oncology Treatment, [place] DEPT CLOSED - 03/26/23 200 [facility] [place] [address] Phone: tel: fax: Referral ID Status Reason Start Date Expiration Date V isits Requested Visits Authorized [id number] Authorized 05/28/2022 05/12/2099 99 99 Encounter Details Date Type Department Care Team (Latest Contact Info) Description 02/13/2024 8:30 AM EDT Hem/Onc Treatment Hematology/Oncolog y Treatment, [place] [address] [place] [address] Kenyatta, Chair 4 Hem Onc Scenery 200 [facility] [place] [address] Multiple myeloma not having achieved remission (HCC)*; Encounter for antineoplastic chemotherapy Allergies No known active allergiesdocumented as of this encounter (statuses as of 03/26/2024) Medications THEOPHYLLINE ER 450 MG PO [id number] :2 tablet at bedtime Take by mouth. [...] by mouth. Activ e Multiple Vitamins-Minera ls ([facility] IMMUNITY SUPPORT) CHEW Take by [...] nostril at bedtime. PATIENT INFORMATION: Kris Sweettania [address] [place] [address] [employer]: [employer] ORDER: Please start nocturnal oxygen via nasal [...] (electronically signed) Ish Caba MD Pulmonary Medicine, [address] [place] [address] [facility] Medical License Number: [id number] 1 Each 023 Active metFORMIN HCl ER [...] mRNA, LNP-s, No Pre serve, 2-Dose Series (H?REL) 01/17/2021,08/05/2020,07/08/2020 COVID-19, LNP-s, No Preserve , Bryant-sucrose, [...] Assessment Author No 08/31/2019 8:07 AM EDT [place], Ro se M, RN * Do you [...] 8:00 AM EST Hem/Onc Treatment Hematology/Oncology Treatment, [place] 200 [facility] [place] [address] Kenyatta, Chair 5 Hem Onc [facility] 200 [facility] [place] [address] Arrived 04/01/2024 7:00 AM EST Laboratory [facility] [address] [place] [address] Mvmg, Gml Mobile Home Draw [address] [place] [address] 04/08/2024 7:05 AM EST Laboratory [facility] [address] [place] [address] Mvmg, Gml Mobile Home Draw [address] [place] [address] 04/15/2024 7:05 AM EST Laboratory [facility] [address] [place] [address] Mvmg, Gml Mobile Home Draw [address] [place] [address] 04/22/2024 7:05 AM EST Laboratory [facility] [address] [place] [address] Mvmg, Gml Mobile Home Draw [address] [place] [address] 04/29/2024 7:05 AM EST Laboratory [facility]bot[facility] [address] [place] [address] Mvmg, Gml Mobile Home Draw [address] [place] [address] 05/05/2024 7:05 AM EST Laboratory [facility] [address] [place] [address] Mvmg, Gml Mobile Home Draw [address] [place] [address] 06/04/2024 11:00 AM EST Office Visit Hematology/Oncology [facility] [address] [place], [place] [address] Morgan Vásquez MD [address] [place] [address] 07/28/2024 7:00 AM EDT Office Visit Neurology [facility] [address] [place] [address] Sandrita Pineda PA-C [address] [place] [address] 09/02/2024 8:20 AM EDT Office Visit Pulmonary Medicine, [facility] [address] [place] [address] Ish Caba MD [address] [place] [address] 05/03/2025 7:40 AM EST Office Visit Dermatology [address] [place] [address] Albina Romo PA-C [address] [place] [address] [place] [address] Health Maintenance Due Date Last Done Comments [...] this encounter Medical Devices Implanted Type Area Food Tray Assembler Device Identifier Shelf Expiration Date Model / Serial / Lot Mesh Plug Xlarge [id number] - [id number] Implanted:Qty: 1 on 12/09/2020 by John Zaragoza MD at OR [facility] Left: Groin CR BARD : DAVOL 05/09/2023 [id number] / / [id number] documented as of this encounter Visit Diagnoses [...] Power of Attor coco? No Care Teams Shaping Machine Tender Relationship Specialty Start Date End Date Michael Collins MD [address] [place] [address] [place] [address] PCP - General Internal Medicine 03/01/14 documented as of this encounter
--- OUTSIDE RECORDS SUMMARY | 2024-03-26 16:10 | External Medical Summary | Summary of Care ---
Author Name Unknown Organization [facility] Address [address] [facility] [place] [address] Phone [phone] Care Team Providers Care Urinalysis Technician Name Role Phone Michael Collins MD Primary Care Provi zehra Reason for Visit * Reason Comments Chemotherapy C41/D8 -Cytoxan * Episode Based Medications (Routine) - Authorized Specialty Diagnoses / Procedures Referred By Contjuanito t Referred To Contact Diagnoses Multiple myeloma not having achieved remission (HCC) Procedures [place] DARATUMUMAB, HYALURONIDASE [place] INJ, CYCLOPHOSPHAMIDE, NOS [place] INJ CYCLOPHOSPHAMD AUROMEDIC Morgan Vásquez MD [address] [place] [address] Phone: tel: fax: Hematology/Oncology Treatment, [place] DEPT CLOSED - 03/26/23 200 [facility] [place] [address] Phone: tel: fax: Referral ID Status Reason Start Date Expiration Date V isits Requested Visits Authorized [id number] Authorized 05/28/2022 05/12/2099 99 99 Encounter Details Date Type Department Care Team (Latest Contact Info) Description 02/13/2024 8:30 AM EDT Hem/Onc Treatment Hematology/Oncolog y Treatment, [place] [address] [place] [address] Kenyatta, Chair 4 Hem Onc Scenery 200 [facility] [place] [address] Multiple myeloma not having achieved remission (HCC)*; Encounter for antineoplastic chemotherapy Allergies No known active allergiesdocumented as of this encounter (statuses as of 03/26/2024) Medications THEOPHYLLINE ER 450 MG PO [id number] :2 tablet at bedtime Take by mouth. [...] by mouth. Activ e Multiple Vitamins-Minera ls ([facility] IMMUNITY SUPPORT) CHEW Take by mouth. A [...] nostril at bedtime. PATIENT INFORMATION: Kris Sweettania [address] [place] [address] [email or web address]QU[employer] COMPANY: [employer] ORDER: Please start nocturnal oxygen via nasal [...] (electronically signed) Ish Caba MD Pulmonary Medicine, [address] [place] [address] [facility] Medical License Number: [id number] 1 Each 023 Active metFORMIN HCl ER [...] mRNA, LNP-s, No Pre serve, 2-Dose Series (Hooja) 01/17/2021,08/05/2020,07/08/2020 COVID-19, LNP-s, No Preserve , Bryant-sucrose, [...] Assessment Author No 08/31/2019 8:07 AM EDT [place], Ro se M, RN * Do you [...] 8:00 AM EST Hem/Onc Treatment Hematology/Oncology Treatment, [place] [facility] [place] [address] Kenyatta, Chair 5 Hem Onc [facility] [address] [facility] [place] [address] 04/01/2024 7:00 AM EST Laboratory Lab Mobile Phlebot[facility] [address] [place] [address] Mvmg, Gml Mobile Home Draw [address] [place] [address] 04/08/2024 7:05 AM EST Laboratory Lab [facility] Phlebot[facility] [address] [place] [address] Mvmg, Gml Mobile Home Draw [address] [facility] [place] [address] 04/15/2024 7:05 AM EST Laboratory [facility] Phlebot[facility] [address] [place] [address] Mvmg, Gml Mobile Home Draw [address] [place] [address] 04/22/2024 7:05 AM EST Laboratory Lab [facility] Phlebot[facility] [address] [place] [address] Mvmg, Gml Mobile Home Draw [address] [place] [address] 04/29/2024 7:05 AM EST Laboratory Lab [facility] Phlebotomy [facility] [address] [place] [address] Mvmg, Gml Mobile Home Draw [address] [place] [address] 05/05/2024 7:05 AM EST Laboratory Lab [facility] Phlebot[facility] [address] [place] [address] Mvmg, Gml Mobile Home Draw [address] [place] [address] 06/04/2024 11:00 AM EST Office Visit Hematology/Oncology [facility] [address] [place] [address] Morgan Vásquez MD [address] [place] [address] 07/28/2024 7:00 AM EDT Office Visit Neurology [facility] [address] [place] [address] Sandrita Pineda PA-C [address] [place] [address] 09/02/2024 8:20 AM EDT Office Visit Pulmonary Medicine, [facility] [address] [place] [address] Ish Caba MD [address] [place] [address] 05/03/2025 7:40 AM EST Office Visit Dermatology [address] [place] [address] Albina Romo PA-C [address] [place] [address] [place] [address] Health Maintenance Due Date Last Done Comments [...] this encounter Medical Devices Implanted Type Area Treasurer Device Identifier Shelf Expiration Date Model / Serial / Lot Mesh Plug Xlarge [id number] - [id number] Implanted:Qty: 1 on 12/09/2020 by John Zaragoza MD at OR [facility] Left: Groin CR BARD : DAVOL 05/09/2023 [id number] / / [id number] documented as of this encounter Visit Diagnoses [...] Power of Attor coco? No Care Teams Urinalysis Technician Relationship Specialty Start Date End Date Michael Collins MD [address] [place] [address] [place] [address] PCP - General Internal Medicine 03/01/14 documented as of this encounter
--- OUTSIDE RECORDS SUMMARY | 2024-03-26 16:11 | External Medical Summary | Summary of Care ---
Author Name Unknown Organization [facility] Address [address] [facility] [place] [address] Phone [phone] Care Team Providers Care Flight Mechanic Name Role Phone Michael Collins MD Primary Care Provi zehra Reason for Visit * Reason Comments Chemotherapy C41/D22 - Cytoxan IV Therapy Hydration * Episode Based Medications (Routine) - Authorized Specialty Diagnoses / Procedures Referred By Contjuanito t Referred To Contact Diagnoses Multiple myeloma not having achieved remission (HCC) Procedures MO DARATUMUMAB, HYALURONIDASE MO INJ, CYCLOPHOSPHAMIDE, NOS MO INJ CYCLOPHOSPHAMD [facility] Morgan Vásquez MD [address] [place] [address] Phone: tel: fax: Hematology/Oncology Treatment, [place] DEPT CLOSED - 03/26/23 [address] [place] [address] Phone: tel: fax: Referral ID Status Reason Start Date Expiration Date V isits Requested Visits Authorized [id number] Authorized 05/28/2022 05/12/2099 99 99 Encounter Details Date Type Department Care Team (Latest Contact Info) Description 02/27/2024 8:30 AM EDT Hem/Onc Treatment Hematology/Oncolog y Treatment, [place] [address] [place] [address] Kenyatta Chair 9 Hem Onc Scenery [address] [place] [address] Multiple myeloma not having achieved remission (HCC)*; Encounter for antineoplastic chemotherapy Allergies No known active allergiesdocumented as of this encounter (statuses as of 03/24/2024) Medications THEOPHYLLINE ER 450 MG PO [id number] :2 tablet at bedtime Take by mouth. [...] mouth. Activ e Multiple Vitamins-Minera ls ([facility]) CHEW Take by [...] nostril at bedtime. PATIENT INFORMATION: Kris Sweettania [address] [place] [address] [employer] division [employer]: [employer] ORDER: Please start nocturnal oxygen via nasal [...] (electronically signed) Ish Caba MD Pulmonary Medicine, [address] [place] [address] [place] [facility] Medical License Number: [id number] 1 Each 023 Active metFORMIN HCl ER [...] Darzalex injection. 35 Tablet 2 024 2023 Discontinued(Sahhzad ryan) Hospital, Clinic, or Other Facility Administered [...] as of this encounter (statuses as of 03/24/2024) Active Problems Problem Noted Date Diagnosed Date Nocturnal hypoxemia 09/02/2023 ILD (interstitial lung disease) 08/28/2022 Prothrombin gene mutation 08/28/2022 Asthma, moderate persistent 08/28/2022 Intermittent asthma with reliever use up to twic e per week 08/28/2022 Impingement syndrome of both shoulders 3 Primary osteoarthritis, left shoulder 04/09/2022 Greater trochanteric [...] as of this encounter (statuses as of 03/24/2024) Resolved Problems Problem Noted Date Diagnosed Date Resolved Date Asthma in remission 08/28/2022 08/29/19 Asthma, mild persistent 08/28/202208/11 Asthma, severe persistent 08/28/2022 Stem cell transplant candidate 08/17/2019 09/02/2019 documented as of this encounter (statuses as of 03/24/2024) Immunizations Name Administration Dates Next Due COVID-19 mRNA, LNP-s, No Pre serve, 2-Dose Series (PROSimity) 01/17/2021,08/05/2020,07/08/2020 COVID-19, LNP-s, No Preserve , Bryant-sucrose, [...] Sign Reading Time Taken Comments Blood Pressure 125/88 02/27/2024 8:33 AM EDT Pulse 91 02/27/2024 8:33 AM EDT Temperature 36.7 C (98.1 F) 02/27/2024 8:33 AM ED T Respiratory Rate 16 02/27/2024 8:33 AM EDT Oxygen Saturation 92% 02/27/2024 8:33 AM EDT Inhaled Oxygen Concentration - - Weight 130.2 kg (287 lb) 02/27/2024 8:33 AM EDT Height - - Body Mass Index 38.92 10/11/2023 9:26 AM EDT documented in this [...] Assessment Author No 08/31/2019 8:07 AM EDT [place], Ro se M, RN * Do you [...] Nursing Notes * Manisha Fraser RN - 02/27/2024 1:30 PM EDT Goals: Patient will remain free from injury. Possible barriers to meeting goals: ambulating with IV pole Stability of the patient: Moderately stable - low risk of patient condition declining or worsening Summary regarding today's goals: Met: pt remained free of harm today Patient tolerated treatment well without any acute issues or problems. Patient left facility in stable condition and denied any further needs. * Manisha Fraser RN - 02/27/2024 8:50 AM EDT Chair 12. IV inserted into hand, no issues. Patient is feeling well overall, did say he felt like he had a stomach bug last week for a couple days but he is feeling well now. Accompanied by today. Chemotherapy/Immunotherapy agents: CYTOXAN Consent for chemotherapy drug treatment complete, dated, and signed? yes, date - 10/17/2023 Treatment lab parameters met? No, okay to tx per Dr. Vásquez with platelets 99 Has treatment weight changed > than 10%? No Treatment preauthorized? Yes VITALS Filed Vitals: 02/27/24 0833 BP: 125/88 Pulse: 91 Resp: 16 Temp: 36.7 C (98.1 F) TempSrc: Tympanic SpO2: 92% Weight: 130.2 kg (287 lb) Urine protein: N/A Patient education completed for treatment? Yes Blood transfusion consent signed and complete? NA Return appointment scheduled? Yes Patient had provider visit today? Yes - Ok to release order and treat per provider Functional Status: Functional status at today's visit: [...] using the heat function. PRE-TREATMENT ASSESSMENT: NEURO: fatigue:some mild fatigue, not interfering with daily activities CV/RESP: denies symptoms GI/: diarrhea: usually has diarrhea but baseline and stable, does not go frequently enough to feel bothered OTHER: denies any additional symptoms PAIN: 3-4 pain location : back pain, baseline and ongoing Safety and Risk for Injury Patient will remain free from injury. Ensure appropriate safety devices are available. Provide and maintain safe environment. documented in this encounter Plan of Treatment Upcoming Encounters Date Type Department Care Team (Late st Contact Info) Description 03/25/2024 7:05 AM EST Laboratory Lab Mobile Phlebotomy [facility] [address] [place] [address] [facility], Gml Mobile Home Draw [address] [place] [address] 03/26/2024 8:00 AM EST Hem/Onc Treatment Hematology/Oncology Treatment, [place] [address] [place] [phone] [place], Chair 5 Hem Onc Scenery [address] [place] [address] 04/01/2024 7:00 AM EST Laboratory Lab Mobile Phlebotomy [facility] [address] [place] [address] M[facility], Gml Mobile Home Draw [address] [facility] [place] [address] 04/08/2024 7:05 AM EST Laboratory Lab Mobile Phlebotomy [facility] [address] [place] [address] Mvmg, Gml Mobile Home Draw [address] [place] [address] 04/15/2024 7:05 AM EST Laboratory Lab Mobile Phlebotomy [facility] [address] [place] [address] M[facility]mg, Gml Mobile Home Draw [address] [place] [address] 04/22/2024 7:05 AM EST Laboratory Lab Mobile Phlebotomy [facility] [address] [place] [address] Mvmg, Gml Mobile Home Draw [address] [place] [address] 04/29/2024 7:05 AM EST Laboratory Lab Mobile Phlebotomy [facility] [address] [place] [address] Mvmg, Gml Mobile Home Draw [address] [place] [address] 05/05/2024 7:05 AM EST Laboratory Lab Mobile Phlebotomy [facility] [address] [place] [address] Mvmg, Gml Mobile Home Draw [address] [place] [address] 06/04/2024 11:00 AM EST [facility] [place] [address] [place] [address] Morgan Vásquez MD [address] [place] [address] 07/28/2024 7:00 AM EDT Office Visit Neurology [facility] [place] [address] [place] [address] Sandrita Pineda PA-C [address] [place] [address] 09/02/2024 8:20 AM EDT Office Visit Pulmonary Medicine, [facility] [address] [place] [address] Ish Caba MD [address] [facility] [place] [address] 05/03/2025 7:40 AM EST Office Visit Dermatology [address] [place] [address] Albina Romo PA-C [address] [place] [address] [place] [address] Health Maintenance Due Date Last Done Comments [...] this encounter Medical Devices Implanted Type Area Aerospace Manager Device Identifier Shelf Expiration Date Model / Serial / Lot Mesh Plug Xlarge [id number] - [id number] Implanted:Qty: 1 on 12/09/2020 by John Zaragoza MD at OR [facility] Left: Groin CR BARD : DAVOL 05/09/2023 [id number] / / [id number] documented as of this encounter Visit Diagnoses [...] Plan BSA from Recorded weight), IV Piggyback, at 517.4 mL/hr Administer over 30 Minutes, Cyclophosphamide doses over 1g should be in 500 mL. May extend infusion to 1 hour if not tolerated., ONCE, 1 dose, On Lilibeth 02/27/24 at 0930Indications:Multiple myeloma not having achieved remission (HCC) Start Infusion 02/27/2024 9:39 AM EDT 740 mg 517.4 mL/hr dexAMETHasone (Decadron) tab 40 mg 40 mg, Oral, ONCE, On Lilibeth 02/27/24 at 0930, For 1 doseIndications:Multiple myeloma not having achieved remission (HCC) Given 02/27/2024 8:59 AM EDT 40 mg NSS infusion FOR HYDRATION Intravenous, at 500 mL/hr Administer over 2 Hours, ONCE, 1 dose, On Lilibeth 02/27/24 at 0930Indications:Multiple myeloma not having achieved remission (HCC) Start Infusion 02/27/2024 8:48 AM EDT 1,000 mL 500 mL/hr NSS infusion FOR HYDRATION Intravenous, at 50 mL/hr Administer over 10 Hours, CONTINUOUS, Starting on Lilibeth 02/27/24 at 0930, Until Lilibeth 02/27/24 at 1732Indications:Multiple myeloma not having achieved remission (HCC) Start Infusion 02/27/2024 8:47 AM EDT 500 mL 50 mL/hr ondansetron (Zofran) tab 8 mg 8 mg, Oral, ONCE, On Lilibeth 02/27/24 at 0930, For 1 doseIndications:Multiple myeloma not having achieved remission (HCC) Given 02/27/2024 9:00 AM EDT 8 mg documented in this [...] Power of Attor coco? No Care Teams Flight Mechanic Relationship Specialty Start Date End Date Michael Collins MD [address] [place] [address] [place] [address] PCP - General Internal Medicine 03/01/14 documented as of this encounter
--- OUTSIDE RECORDS SUMMARY | 2024-03-26 16:11 | External Medical Summary ---
Author Name Unknown Address Unknown Organization K01:LABORATORY [facility] - [address] [facility] [address] Laboratory Report Ordering Provider Test Date Status KALPESH SERRANO 03/25/2024 08:32:00 Final Observation Date Value Abnormality Reference (Units ) Status WBC, Total 03/25/2024 08:32:00 3.53 Below low normal 4.00-10.80 (K/uL) Final RBC 03/25/2024 08:32:00 4.11 4.50-5.25 (M/uL) Final Hemoglobin 03/25/2024 08:32:00 14.6 14.0-16.8 (g/dL) Final HCT 03/25/2024 08:32:00 43.8 40.0-48.4 (%) Final MCV 03/25/2024 08:32:00 106.6 82.0-99.5 (fL) Final MCH 03/25/2024 08:32:00 35.5 27.0-34.0 (pg) Final MCHC 03/25/2024 08:32:00 33.3 32.0-36.0 (g/dL) Final RDW 03/25/2024 08:32:00 14.1 11.5-15.5 (%) Final Platelets 03/25/2024 08:32:00 89 Below low normal 140-400 (K/uL) Final MPV 03/25/2024 08:32:00 12.3 6.6-11.1 (fL) Final Nucleated erythrocytes/100 leukocytes [Ratio] in Blood by Automated count 03/25/2024 08:32:00 0 <=0 (/100 WBCs) Final Performing Location LABORATORY [facility] - [address] [place] [address]
--- OUTSIDE RECORDS SUMMARY | 2024-03-26 16:11 | External Medical Summary ---
Author Name Unknown Address Unknown Organization K01:[facility] - [address] [facility] [place] [address] Laboratory Report Ordering Provider Test Date Status KALPESH SERRANO 03/25/2024 08:32:00 Final Observation Date Value Abnormality Reference (Units ) Status SYNC LEUKOCYTES IN BLOOD BY AUTOMATED COUNT 03/25/2024 08:32:00 3.53 Below low normal 4.00-10.80 (K/uL) Final Segs 03/25/2024 08:32:00 82.2 Above high normal 40.0-75.0 (%) Final Lymphs % 03/25/2024 08:32:00 4.2 Below low normal 18.0-42.0 (%) Final Monos 03/25/2024 08:32:00 11.3 Above high normal 1.0-11.0 (%) Final Eosinophils 03/25/2024 08:32:00 1.4 0.0-6.0 (%) Final Basos 03/25/2024 08:32:00 0.6 0.0-2.0 (%) Final Immature Granulocyte, Percent 03/25/2024 08:32:00 0.3 0.0-2.0 (%) Final Absolute Segs 03/25/2024 08:32:00 2.90 1.80-7.70 (K/uL) Final Lymphs, absolute 03/25/2024 08:32:00 0.15 Below low normal 1.00-4.80 (K/ul) Final Monos, Abs 03/25/2024 08:32:00 0.40 0.00-1.10 (K/uL) Final Eos, Abs 03/25/2024 08:32:00 0.05 0.00-0.70 (K/uL) Final Basos, Abs 03/25/2024 08:32:00 0.02 0.00-0.20 (K/uL) Final Immature Granulocytes, Number 03/25/2024 08:32:00 0.01 0.00-0.20 (K/uL) Final Performing Location [facility] - [facility] [address] [place] [address]
--- OUTSIDE RECORDS SUMMARY | 2024-03-26 16:11 | External Medical Summary | Summary of Care ---
Author Name Unknown Organization [facility] Address [address] [facility] [place] [address] Phone [phone] Care Team Providers Care Managed Security Sales Consultant Name Role Phone Michael Collins MD Primary Care Provi zehra Reason for Visit * Reason Comments Chemotherapy Cytoxan * Episode Based Medications (Routine) - Authorized Specialty Diagnoses / Procedures Referred By Contac t Referred To Contact Diagnoses Multiple myeloma not having achieved remission (HCC) Procedures AR DARATUMUMAB, HYALURONIDASE AR INJ, CYCLOPHOSPHAMIDE, NOS AR INJ CYCLOPHOSPHAMD AUROMEDIC Morgan Vásquez MD [address] [facility] [place] [address] Phone: tel: fax: Hematology/Oncology Treatment, [place] DEPT CLOSED - 03/26/23 [address] [facility] [place] [address] Phone: tel: fax: Referral ID Status Reason Start Date Expiration Date V isits Requested Visits Authorized [id number] Authorized 05/28/2022 05/12/2099 99 99 Encounter Details Date Type Department Care Team (Latest Contact Info) Description 02/20/2024 8:30 AM EDT Hem/Onc Treatment Hematology/Oncolog y Treatment, [place] [address] [place] [address] Keny[place], Chair [address] [place] [address] Multiple myeloma not having achieved remission (HCC)*; Encounter for antineoplastic chemotherapy Allergies No known active allergiesdocumented as of this encounter (statuses as of 03/25/2024) Medications THEOPHYLLINE ER 450 MG PO [id number] :2 tablet at bedtime Take by mouth. [...] nostril at bedtime. PATIENT INFORMATION: Kris Gonsalveselizabeth [address] [place] [address] [employer]: [employer] [place] ORDER: Please start nocturnal oxygen via nasal [...] (electronically signed) Ish Caba MD Pulmonary Medicine, [address] [place] [address] [facility] Medical License Number: [id number] 1 Each 023 Active metFORMIN HCl ER [...] mRNA, LNP-s, No Pre serve, 2-Dose Series ([employer]) 01/17/2021,08/05/2020,07/08/2020 COVID-19, LNP-s, No Preserve , Bryant-sucrose, [...] AM EDT Mckenzie Tohmas se, RN * Do you have serious [...] Chair 10, Cytoxan. CMP not processed at [facility] due to problem with specimen. Dr. Fahad berrios to proceedwith treatment based on CMP results from 02/12/24. documented in this encounter Plan of Treatment Upcoming Encounters Date Type Department Care Team (Late st Contact Info) Description 03/26/2024 8:00 AM EST Hem/Onc Treatment Hematology/Oncology Treatment, [place] [address] [place] [address] Kenyatta, Chair 5 Hem Onc Scenery [address] [place] [address] 04/01/2024 7:00 AM EST Laboratory Lab Mobile Phlebotomy [facility] [address] [facility] [place] [address] [facility], Gml Mobile Home Draw [address] [place] [address] 04/08/2024 7:05 AM EST Laboratory Lab Mobile Phlebotomy [facility] [address] [place] [address] Mvmg, Gml Mobile Home Draw [address] [place] [address] 04/15/2024 7:05 AM EST Laboratory Lab Mobile Phlebotomy [facility] [address] [place] [address] Mvmg, Gml Mobile Home Draw [address] [place] [address] 04/22/2024 7:05 AM EST Laboratory Lab Mobile Phlebotomy [facility] [address] [place] [address] Mvmg, Gml Mobile Home Draw [address] [facility] [place] [address] 04/29/2024 7:05 AM EST Laboratory Lab Mobile Phlebotomy [facility] [address] [place] [address] Mvmg, Gml Mobile Home Draw [address] [facility] [place] [address] 05/05/2024 7:05 AM EST Laboratory Lab Mobile Phlebotomy [facility] [address] [place] [address] Mvmg, Gml Mobile Home Draw [address] [facility] [place] [address] 06/04/2024 11:00 AM EST Office Visit Hematology/Oncology [facility] [address] [place] [address] Morgan Vásquez MD [address] [facility] [place] [address] 07/28/2024 7:00 AM EDT Office Visit Neurology [facility] [address] [place] [address] Sandrita Pineda, PA-C [address] [place] [address] 09/02/2024 8:20 AM EDT Office Visit Pulmonary Medicine, [facility] [address] [place] [address] Ish Caba MD [address] [place] [address] 05/03/2025 7:40 AM EST Office Visit Dermatology [address] [place] [address] Albina Romo PA-C [address] [place] [address] [place] [address] Health Maintenance Due Date Last Done Comments [...] this encounter Medical Devices Implanted Type Area Potato Peeler Device Identifier Shelf Expiration Date Model / Serial / Lot Mesh Plug Xlarge [id number] - [id number] Implanted:Qty: 1 on 12/09/2020 by John Zaragoza MD at OR [facility] Left: Groin CR BARD : DAVOL 05/09/2023 [id number] / / [id number] documented as of this encounter Visit Diagnoses [...] Power of Attor coco? No Care Teams Managed Security Sales Consultant Relationship Specialty Start Date End Date Michael Collins MD [address] [place] [address] [place] [address] PCP - General Internal Medicine 03/01/14 documented as of this encounter
--- OUTSIDE RECORDS SUMMARY | 2024-03-26 16:11 | External Medical Summary ---
Author Name Unknown Address Unknown Organization K01:[facility] [place] [address] [facility] [place] [address] Laboratory Report Ordering Provider Test Date Status KALPESH SERRANO 03/25/2024 08:32:00 Final Observation Date Value Abnormality Reference (Units ) Status BUN 03/25/2024 08:32:00 19 6-20 (mg/dL) Final Creatinine 03/25/2024 08:32:00 1.2 0.6-1.2 (mg/dL) Final Glomerular filtration rate/1.73 sq M.predicted [Volume Rate/Area] in Serum, Plasma or Blood by Creatinine-based formula (CKD-EPI) 03/25/2024 08:32:00 70 >=60 (mL/min) Final eGFR is calculated based on the CKD-EPI 2020 equation. Sodium 03/25/2024 08:32:00 139 135-146 (m mol/L) Final Potassium 03/25/2024 08:32:00 3.4 Below low normal 3.5 -5.1 (mmol/L) Final Cl 03/25/2024 08:32:00 98 98-107 (mm ol/L) Final CO2 03/25/2024 08:32:00 26 22-32 (mmo l/L) Final Anion gap 03/25/2024 08:32:00 15 7-15 (mmol /L) Final Glucose 03/25/2024 08:32:00 101 70-120 (mg /dL) Final Albumin 03/25/2024 08:32:00 4.3 3.8-5.0 (g /dL) Final AST (Aspartate aminotransferase) 03/25/2024 08:32:00 23 10-50 (U/L) Fin al Alk Phos 03/25/2024 08:32:00 91 35-130 (U/ L) Final Bilirubin, Total 03/25/2024 08:32:00 0.7 <=1 .2 (mg/dL) Final Calcium 03/25/2024 08:32:00 9.0 8.4-10.2 ( mg/dL) Final Protein 03/25/2024 08:32:00 6.0 6.0-8.3 (g /dL) Final ALT (Alanine aminotransferase) 03/25/2024 08:32:00 28 10-50 (U/L) Regis figueroa Performing Location [facility] - [facility] [address] [facility] [address]
--- OUTSIDE RECORDS SUMMARY | 2024-03-26 16:11 | External Medical Summary | Summary of Care ---
Author Name Unknown Organization [facility] Address [address] [facility] [place] [address] Phone [phone] Care Team Providers Care Cardroom Attendant Name Role Phone Michael Collins MD Primary Care Provi zehra Reason for Visit * Reason Comments Chemotherapy Cytoxan * Episode Based Medications (Routine) - Authorized Specialty Diagnoses / Procedures Referred By Contac t Referred To Contact Diagnoses Multiple myeloma not having achieved remission (HCC) Procedures MI DARATUMUMAB, HYALURONIDASE MI INJ, CYCLOPHOSPHAMIDE, NOS MI INJ CYCLOPHOSPHAMD AUROMEDIC Morgan Vásquez MD [address] [facility] [place] [address] Phone: tel: fax: Hematology/Oncology Treatment, [place] DEPT CLOSED - 03/26/23 [address] [facility] [place] [address] Phone: tel: fax: Referral ID Status Reason Start Date Expiration Date V isits Requested Visits Authorized [id number] Authorized 05/28/2022 05/12/2099 99 99 Encounter Details Date Type Department Care Team (Latest Contact Info) Description 02/20/2024 8:30 AM EDT Hem/Onc Treatment Hematology/Oncolog y Treatment, [place] [address] [place] [address] Kenyatta, Chair [address] [place] [address] Multiple myeloma not having achieved remission (HCC)*; Encounter for antineoplastic chemotherapy Allergies No known active allergiesdocumented as of this encounter (statuses as of 03/25/2024) Medications THEOPHYLLINE ER 450 MG PO [id number] :2 tablet at bedtime Take by mouth. [...] by mouth. Activ e Multiple Vitamins-Minera ls ([facility] IMMUNITY SUPPORT) CHEW Take [...] nostril at bedtime. PATIENT INFORMATION: Kris Gonsalveselizabeth [address] [place] [address] [employer]: [employer] ORDER: Please start nocturnal oxygen via nasal [...] (electronically signed) Ish Caba MD Pulmonary Medicine, [address] [place] [address] [facility] Medical License Number: [id number] 1 Each 023 Active metFORMIN HCl ER [...] mRNA, LNP-s, No Pre serve, 2-Dose Series ([employer]) 01/17/2021,08/05/2020,07/08/2020 COVID-19, LNP-s, No Preserve , Bryant-sucrose, [...] 10, Cytoxan. CMP not processed at [facility] due to problem with specimen. Dr. Fahad berrios to proceedwith treatment based on CMP results from 02/12/24. documented in this encounter Plan of Treatment Upcoming Encounters Date Type Department Care Team (Late st Contact Info) Description 03/26/2024 8:00 AM EST Hem/Onc Treatment Hematology/Oncology Treatment, [place] [address] [place] [address] Kenyatta, Chair 5 Hem Onc Scenery [address] [place] [address] 04/01/2024 7:00 AM EST Laboratory Lab Mobile Phlebotomy [facility] [address] [facility] [place] [address] [facility] Mobile Home Draw [address] [place] [address] 04/08/2024 7:05 AM EST Laboratory Lab Mobile Phlebotomy [facility] [address] [place] [address] [facility], Gml Mobile Home Draw [address] [email or web address] [address] 04/15/2024 7:05 AM EST Laboratory Lab Mobile Phlebotomy [facility] [address] [place] [address] [facility], Gml Mobile Home Draw [address] [email or web address] [address] 04/22/2024 7:05 AM EST Laboratory Lab Mobile Phlebotomy [facility] [address] [place] [address] [facility], Gml Mobile Home Draw [address] [facility] [place] [address] 04/29/2024 7:05 AM EST Laboratory Lab Mobile Phlebotomy [facility] [address] [place] [address] [facility], Gml Mobile Home Draw [address] [facility] [place] [address] 05/05/2024 7:05 AM EST Laboratory Lab Mobile Phlebotomy [facility] [address] [place] [address] [facility], Gml Mobile Home Draw [address] [facility] [place] [address] 06/04/2024 11:00 AM EST Office Visit Hematology/Oncology [facility] [address] [place] [id number] Morgan Vásquez MD 200 [facility] [place] [address] 07/28/2024 7:00 AM EDT Office Visit Neurology [facility] [address] [place] [address] Sandrita Pineda, PA-C [address] [place] [address] 09/02/2024 8:20 AM EDT Office Visit Pulmonary Medicine, [facility] [address] [place] [address] Ish Caba MD [address] [place] [address] 05/03/2025 7:40 AM EST Office Visit Dermatology [address] [place] [address] Albina Romo PA-C [address] [place] [address] [place] [address] Health Maintenance Due Date Last Done Comments [...] this encounter Medical Devices Implanted Type Area Licensed Direct Entry Midwife Device Identifier Shelf Expiration Date Model / Serial / Lot Mesh Plug Xlarge [id number] - [id number] Implanted:Qty: 1 on 12/09/2020 by John Zaragoza MD at OR [facility] Left: Groin CR BARD : DAVOL 05/09/2023 [id number] / / [id number] documented as of this encounter Visit Diagnoses [...] Power of Attor coco? No Care Teams Cardroom Attendant Relationship Specialty Start Date End Date Michael Collins MD [address] [place] [address] [place] [address] PCP - General Internal Medicine 03/01/14 documented as of this encounter
--- OUTSIDE RECORDS SUMMARY | 2024-03-26 16:11 | External Medical Summary | Summary of Care ---
Author Name Unknown Organization [facility] Address [address] [facility] [place] [address] Phone [phone] Care Team Providers Care Cosmetic Maker Name Role Phone Michael Collins MD Primary Care Provi zehra Reason for Visit * Reason Comments Chemotherapy Cytoxan * Episode Based Medications (Routine) - Authorized Specialty Diagnoses / Procedures Referred By Contac t Referred To Contact Diagnoses Multiple myeloma not having achieved remission (HCC) Procedures DE DARATUMUMAB, HYALURONIDASE DE INJ, CYCLOPHOSPHAMIDE, NOS DE INJ CYCLOPHOSPHAMD AUROMEDIC Morgan Vásquez MD 200 [facility] [place] [address] Phone: tel: fax: Hematology/Oncology Treatment, [place] DEPT CLOSED - 03/26/23 200 [facility] [place] [address] Phone: tel: fax: Referral ID Status Reason Start Date Expiration Date V isits Requested Visits Authorized [id number] Authorized 05/28/2022 05/12/2099 99 99 Encounter Details Date Type Department Care Team (Latest Contact Info) Description 02/20/2024 8:30 AM EDT Hem/Onc Treatment Hematology/Oncolog y Treatment, [place] [address] [place] [address] Kenyatta, Chair [address] [place] [address] Multiple myeloma not having achieved remission (HCC)*; Encounter for antineoplastic chemotherapy Allergies No known active allergiesdocumented as of this encounter (statuses as of 03/25/2024) Medications THEOPHYLLINE ER 450 MG PO [id number] :2 tablet at bedtime Take by mouth. [...] by mouth. Activ e Multiple Vitamins-Minera ls ([facility] IMMUNITY SUPPORT) CHEW Take by mouth. A [...] nostril at bedtime. PATIENT INFORMATION: Kris Gonsalveselizabeth [address] [place] [address] [employer]: [employer] ORDER: Please start nocturnal oxygen via nasal [...] (electronically signed) Ish Caba MD Pulmonary Medicine, [address] [place] [address] [facility] Medical License Number: [id number] 1 Each 023 Active metFORMIN HCl ER [...] mRNA, LNP-s, No Pre serve, 2-Dose Series ([employer]) 01/17/2021,08/05/2020,07/08/2020 COVID-19, LNP-s, No Preserve , Bryant-sucrose, [...] Chair 10, Cytoxan. CMP not processed at [facility] due to problem with specimen. Dr. Fahad berrios to proceedwith treatment based on CMP results from 02/12/24. documented in this encounter Plan of Treatment Upcoming Encounters Date Type Department Care Team (Late st Contact Info) Description 03/26/2024 8:00 AM EST Hem/Onc Treatment Hematology/Oncology Treatment, [place] [address] [place] [address] Kenyatta, Chair 5 Hem Onc Scenery [address] [place] [address] 04/01/2024 7:00 AM EST Laboratory Lab Mobile Phlebotomy [facility] [address] [facility] [place] [address] Mvmg, Gml Mobile Home Draw [address] [place] [address] 04/08/2024 7:05 AM EST Laboratory Lab Mobile Phlebotomy [facility] [address] [place] [address] Mvmg, Gml Mobile Home Draw [address] [place] [address] 04/15/2024 7:05 AM EST Laboratory Lab Mobile Phlebotomy [facility] [address] [place] [address] M[facility], Gml Mobile Home Draw [address] [place] [address] 04/22/2024 7:05 AM EST Laboratory Lab Mobile Phlebotomy [facility] [address] [place] [address] Mvmg, Gml Mobile Home Draw [address] [facility] [place] [address] 04/29/2024 7:05 AM EST Laboratory Lab Mobile Phlebotomy [facility] [address] [place] [address] Mvmg, Gml Mobile Home Draw [address] [facility] [place] [address] 05/05/2024 7:05 AM EST Laboratory Lab Mobile Phlebotomy [facility] [address] [place] [address] Mvmg, Gml Mobile Home Draw [address] [facility] [place] [address] 06/04/2024 11:00 AM EST Office Visit Hematology/Oncology [facility] [address] [place] [phone] Morgan Vásquez MD 200 [facility] [place] [address] 07/28/2024 7:00 AM EDT Office Visit Neurology [facility] [address] [place] [address] Sandrita Pineda, PA-C [address] [place] [address] 09/02/2024 8:20 AM EDT Office Visit Pulmonary Medicine, [facility] [address] [place] [address] Ish Caba MD [address] [place] [address] 05/03/2025 7:40 AM EST Office Visit Dermatology [address] [place] [address] Albina Romo PA-C [address] [place] [address] [place] [address] Health Maintenance Due Date Last Done Comments [...] this encounter Medical Devices Implanted Type Area Appliquer Zigzag Device Identifier Shelf Expiration Date Model / Serial / Lot Mesh Plug Xlarge [id number] - [id number] Implanted:Qty: 1 on 12/09/2020 by John Zaragoza MD at OR [facility] Left: Groin CR BARD : DAVOL 05/09/2023 [id number] / / [id number] documented as of this encounter Visit Diagnoses [...] Power of Attor coco? No Care Teams Cosmetic Maker Relationship Specialty Start Date End Date Michael Collins MD [address] [place] [address] [place] [address] PCP - General Internal Medicine 03/01/14 documented as of this encounter
--- NOTE | 2024-03-26 16:12 | Electrocardiogram Report ---
Test Reason : Blood Pressure : */* mmHG Vent. Rate : 125 BPM Atrial Rate : 125 BPM P-R Int : 130 ms QRS Dur : 94 ms QT Int : 334 ms P-R-T Axes : 60 0 102 degrees QTcB Int : 482 ms Sinus tachycardia with Premature atrial complexes Left ventricular hypertrophy with repolarization abnormality Abnormal ECG When compared with ECG of 23-Sep-2019 18:34, Premature atrial complexes are now Present Left ventricular hypertrophy with repolarization abnormality now present Confirmed by Aime Karimi ([id number]) on 03/26/2024 4:11:55 PM Referred By: REFERRED SELF Confirmed By: Aime aKrimi
--- OUTSIDE RECORDS SUMMARY | 2024-03-26 16:12 | External Medical Summary | Summary of Care ---
Author Name Unknown Organization [facility] Address [address] [facility] [place] [address] Phone [phone] Care Team Providers Care Leveler Helper Name Role Phone Michael Collins MD Primary Care Provi zehra Reason for Visit * Reason Comments Chemotherapy C42, D 1 Cytoxan and Darzalax Faspro * Episode Based Medications (Routine) - Authorized Specialty Diagnoses / Procedures Referred By Contjuanito t Referred To Contact Diagnoses Multiple myeloma not having achieved remission (HCC) Procedures LA DARATUMUMAB, HYALURONIDASE LA INJ, CYCLOPHOSPHAMIDE, NOS LA INJ CYCLOPHOSPHAMD [facility]IC Morgan Vásquez MD [address] [place] [address] Phone: tel: fax: Hematology/Oncology Treatment, [place] DEPT CLOSED - 03/26/[address] [address] Phone: tel: fax: Referral ID Status Reason Start Date Expiration Date V isits Requested Visits Authorized [id number] Authorized 05/28/2022 05/12/2099 99 99 Encounter Details Date Type Department Care Team (Latest Contact Info) Description 03/05/2024 11:15 AM EDT Hem/Onc Treatment Hematology/Oncolog y Treatment, [place] [address] [place] [address] Kenyatta, Chair 3 Hem Onc Scenery [address] [place] [address] Multiple myeloma not having achieved remission (HCC)*; Encounter for antineoplastic chemotherapy Allergies No known active allergiesdocumented as of this encounter (statuses as of 03/23/2024) Medications THEOPHYLLINE ER 450 MG PO [id number]: 2 tablet at bedtime Take by mouth. Indications: 2 tablet at bedtime Active B COMPLEX FORMULA 1 PO TABS Take by mouth. Activ e MULTIVITAMINS PO CAPS 1 daily Active FOLIC ACID 1 MG PO TABS Take by mouth daily. Active METOPROLOL XL TBCR 50 MG OR 1 tab daily 05/25/19 15 Active hydrochlorothiaz santos (HYDRODIURIL) 25 MG Tablet Take 1 Tablet by mouth in the morning. 1 tab daily . 5 02/23/20 15 Active losartan (COZAAR) 50 MG Tablet Take 1 Tablet by mouth in the morning. 1 tab daily. 5 02/23/20 15 Active VENTOLIN HFA 108 (90 BASE) MCG/ACT inhaler As needed 02/23/20 15 Active omega-3 1000 MG CAPS Take by mouth. Activ e Multiple Vitamins-Mineral s ([facility] IMMUNITY SUPPORT) CHEW Take by [...] NEEDED FOR SHORTNESS OF BREATH OR WHEEZING 07/30/19 20 Active acetaminophen (TYLENOL EXTRA STRENGTH) 500 MG Tablet Take 1 Tab by mouth every 6 hours as needed for Pain or Fever. 30 Tab 09/15/19 20 Active zolpidem (AMBIEN) 5 MG Tablet Take 1 Tablet by mouth at bedtime as needed for Sleep. Active Aspirin 81 MG Oral Tablet Chewable Take 1 Tablet by mouth in the morning. Active Diphenoxylate-At ropine 2.5-0.025 MG Oral Tablet (Lomotil)Indicat ions:Multiple myeloma in remission (HCC),Diarrhea, unspecified type TAKE 1 TABLET BY MOUTH 4 TIMES A DAY NEEDED FOR DIARRHEA 60 Tab 02/08/20 21 Active Sildenafil Citrate 100 MG Oral Tablet 03/29/20 21 Active Clobetasol Propionate 0.05 % External Ointment (Temovate)Indica tions:Skin rash Apply topically to affected area 2 times a day . 30 g 2 03/01/20 22 Active B Complex Formula 1 (Lipotrop) Oral Tablet Active Levalbuterol HCl 1.25 MG/3ML Inhalation Nebulization Solution (Xopenex) INHALE CONTENTS OF 1 VIAL (3ML) EVERY 6 HOURS 05/31/19 23 Active oxygen IN GAS Administer 2 L/min(Oxygen) into nostril at bedtime. PATIENT INFORMATION: Kris Sweett[address] [place] [address] [employer]: [employer] ORDER: Please start nocturnal oxygen via nasal [...] (electronically signed) Ish Caba MD Pulmonary Medicine, [address] [place] [address] [place] [facility] Medical License Number: [id number] 1 Each 09/22/19 23 Active metFORMIN HCl ER (OSM) 500 MG Oral Tablet Extended Release 24 Hour 1 Tablet. 01/10/20 23 Active oxyCODONE HCl 5 MG Oral Tablet (Oxy IR) TAKE 1 TAB BY MOUTH EVERY 6 HOURS NEEDED FOR PAIN Active Triamcinolone Acetonide 0.1 % External Cream (Aristocort) Apply 2x daily to rashes areas on trunk/arms/legs during winter time mostly. 454 g 04/29/20 23 Active Acyclovir 800 MG Oral Tablet (Zovirax)Indicat ions:Multiple myeloma not having achieved remission (HCC),History of autologous stem cell transplant (HCC) TAKE 1 TABLET BY MOUTH TWICE A DAY 180 Tablet 3 09/16/19 24 Active DULoxetine HCl 60 MG Oral Capsule Delayed Release Particles (Cymbalta) Take 1 Capsule by mouth in the morning and 1 Capsule before bedtime. 180 Capsule 1 09/30/19 24 Active Prochlorperazine Maleate 10 MG Oral Tablet (Compazine)Indic ations:Multiple myeloma in remission (HCC) Take 1 Tablet by mouth every 6 hours as needed for Nausea. 60 Tablet 5 10/09/19 24 Active metFORMIN HCl ER 500 MG Oral Tablet Extended Release 24 Hour (Glucophage XR) Take 1 Tablet by mouth in the morning and 1 Tablet before bedtime. 10/01/19 24 Active Ondansetron HCl 8 MG Oral Tablet (Zofran)Indicati ons:Multiple myeloma (HCC) TAKE 1 TABLET BY MOUTH EVERY 8 HOURS NEEDED FOR NAUSEA 90 Tablet 1 01/15/20 24 Active Pregabalin 25 MG Oral Capsule (Lyrica) TAKE 1 CAPSULE BY MOUTH IN THE MORNING AND IN THE EVENING 60 Capsule 4 02/12/20 24 Active dexAMETHasone 4 MG Oral Tablet (Decadron)Indica tions:Multiple myeloma not having achieved remission (HCC) Take 10 tablets once a week on weeks without Darzalex. Take 5 tablets on week of Darzalex injection. 35 Tablet 2 10/08/19 24 024 Discontin ued(Refil l) Hospital, Clinic, or Other Facility Administered Medication [...] as of this encounter (statuses as of 03/23/2024) Active Problems Problem Noted Date Diagnosed Date [...] 07/14/2021 Primary osteoarthritis, left ankle and foot 03/08/2021 Chemotherapy-induced neuropathy 03/30/2021 Multiple myeloma not having [...] as of this encounter (statuses as of 03/23/2024) Resolved Problems Problem Noted Date Diagnosed Date Resolved Date Asthma in remission 08/28/2022 08/29/19 Asthma, mild persistent 08/28/2022 0412/2022 Asthma, severe persistent 08/28/2022 Stem cell transplant candidate 08/17/2019 09/02/2019 documented as of this encounter (statuses as of 03/23/2024) Immunizations Name Administration Dates Next Due COVID-19 mRNA, LNP-s, No Pre serve, 2-Dose Series ([employer]) 01/17/2021,08/05/2020,07/08/2020 COVID-19, LNP-s, No Preserve , Bryant-sucrose, [...] on file documented as of this encounter Functional Status * Are you deaf or do you have serious difficulty hearing? Answer Date of Assessment Author No 08/31/2019 8:07 AM Mckenzie Deras se, RN * Are you blind or do you have serious difficulty seeing, even when wearing glasses? Answer Date of Assessment Author No 08/31/2019 8:07 AM Mckenzie Deras se, RN * Do you have serious difficulty walking or climbing stairs? (5 years old or older) Answer Date of Assessment Author No 08/31/2019 8:07 AM Mckenzie Deras se, RN * Do you have difficulty dressing or bathing? (5 years old or older) Answer Date of Assessment Author No 08/31/2019 8:07 AM Mckenzie Deras se, RN * Because of a physical, mental, or emotional condition, do you have difficulty doing errands alone such as visiting a doctors office or shopping? (15 years old or older) Answer Date of Assessment Author No 08/31/2019 8:07 AM Mckenzie Deras se, RN documented as of this encounter Mental Status * Because of a physical, mental, or emotional condition, do you have serious difficulty concentrating, remembering, or making decisions? (5 years old or older) Answer Entry Date Author No 08/31/2019 8:07 AM EDT Mckenzie Thomas se, RN documented in this encounter Nursing Notes * Abril Ayers RN - 03/05/2024 2:55 PM EDT Patient tolerated treatment without complication. PIV flushed with ease, alcohol cap and netting applied over PIV. Goals: Patient will remain free from injury. Possible barriers to meeting goals: Ambulating with IV pole Stability of the patient: Moderately stable - low risk of patient condition declining or worsening Summary regarding today's goals: Met: Patient remained free from harm. Pt discharged in stable condition. * Abril Ayers RN - 03/05/2024 2:38 PM EDT Chair 12 Patient here after appointment with Dr. Vásquez. CT scan scheduled for after treatment. Patient offers complaint in "stomach", thus CT scan. Per Dr. Vásquez, ok to treat. PIV started with brisk blood return. Chemotherapy/Immunotherapy agents: CYTOXAN and Darzalex Faspro Consent for chemotherapy drug treatment complete, dated, and signed? yes, date - 10/17/23 Treatment lab parameters met? Yes Has treatment weight changed > than 10%? No Treatment preauthorized? Yes VITALS There were no vitals filed for this visit. Urine protein: N/A Patient education completed for [...] potential mcclendon while using the heat function. Safety and Risk for Injury Patient will remain free from injury. Ensure appropriate safety devices are available. Provide and maintain safe environment. documented in this encounter Plan of Treatment Upcoming Encounters Date Type Department Care Team (Late st Contact Info) Description 03/25/2024 7:05 AM EST Laboratory Lab Mobile Phlebotomy [facility] [address] [place], [place] [address] [facility], G[facility] Mobile Home Draw [address] [facility] [place], [place] [address] 03/26/2024 8:00 AM EST Hem/Onc Treatment Hematology/Oncology Treatment, [place] [address] [place], [place] [phone] Kenyatta, Chair 5 Hem Onc Scenery [address] [place] [address] 04/01/2024 7:00 AM EST Laboratory Lab Mobile Phlebotomy [facility] [address] [place], [place] [address] M[facility], Gml Mobile Home Draw [address] [facility] [place], [place] [address] 04/08/2024 7:05 AM EST Laboratory Lab Mobile Phlebotomy [facility] [address] [place], [place] [address] M[facility]mg, Gml Mobile Home Draw [address] [facility] [place] [address] 04/15/2024 7:05 AM EST Laboratory Lab Mobile Phlebotomy [facility] [address] [place] [address] Mvmg, Gml Mobile Home Draw [address] [facility] [address] 04/22/2024 7:05 AM EST Laboratory Lab Mobile Phlebotomy [facility] [address] [place] [address] [facility], Gml Mobile Home Draw [address] [facility] [place] [address] 04/29/2024 7:05 AM EST Laboratory Lab Mobile Phlebotomy [facility] [address] [facility] [place] [address] M[place], Gml Mobile Home Draw [address] [facility] [place] [address] 05/05/2024 7:05 AM EST Laboratory Lab Mobile Phlebotomy [facility] [address] [facility] [place] [address] M[facility], Gml Mobile Home Draw [address] [facility] [place] [address] 06/04/2024 11:00 AM EST Office Visit Hematology/Oncology [facility] [address] [place] [phone] Morgan Vásquez MD [address] [place] [address] 07/28/2024 7:00 AM EDT Office Visit Neurology [facility] [address] [place] [address] Sandrita Pineda PAYeimyC [address] [facility] [place] [address] 09/02/2024 8:20 AM EDT Office Visit Pulmonary Medicine, [facility] [address] [facility] [place] [address] Ish Caba MD [address] [facility] [address] 05/03/2025 7:40 AM EST Office Visit Dermatology [address] [place] [address] Albina Romo PA-C [address] [place] [address] [place] [address] Health Maintenance Due Date Last Done Comments [...] this encounter Medical Devices Implanted Type Area Brine Purifier Device Identifier Shelf Expiration Date Model / Serial / Lot Mesh Plug Xlarge [id number] - [id number] Implanted:Qty: 1 on 12/09/2020 by John Zaragoza MD at OR [facility] Left: Groin CR BARD : DAVOL 05/09/2023 [id number] / / [id number] documented as of this encounter Visit Diagnoses Diagnosis Multiple myeloma not having achieved remission (HCC)- Primary Multiple myeloma, without mention of having achieved remission Encounter for antineoplastic chemotherapy documented in this encounter Administered Medications Inactive Administered Medications - up to 3 most recent administrations Medication Order MAR Action Action Date Dose Rate Site Acetaminophen (Tylenol) tab 650 mg 650 mg, Oral, ONCE, On Lilibeth 03/05/24 at 1145, For 1 dose, Maximum of 4 grams (4000 mg) per day.Indications:Multipl e myeloma not having achieved remission (HCC) Given 03/05/2024 11:30 AM EDT 650 mg cycloPHOSphamide (Cytoxan) 740 mg in NSS 250 mL infusion 740 mg (rounded from 735 mg = 300 mg/m2 2.45 m2 Treatment Plan BSA from Recorded weight), IV Piggyback, at 517.4 mL/hr Administer over 30 Minutes, Cyclophosphamide doses over 1g should be in 500 mL. May extend infusion to 1 hour if not tolerated., ONCE, 1 dose, On Lilibeth 03/05/24 at 1145Indications:Multipl e myeloma not having achieved remission (HCC) Start Infusion 03/05/2024 11:46 AM EDT 740 mg 517.4 mL/hr Daratumumab-hyaluronida se-fihj (Darzalex Faspro) 1800 mg-45229 units/ 15 ml subcut inj 15 mL, Subcutaneous, ONCE, On Lilibeth 03/05/24 at 1245, For 1 dose, Inject subcutanteously into abdomen over 3 to 5 minutesIndications:Mult iple myeloma not having achieved remission (HCC) Given 03/05/2024 11:46 AM EDT 15 mL Abdomen Right Lower dexAMETHasone (Decadron) tab 40 mg 40 mg, Oral, ONCE, On Lilibeth 03/05/24 at 1145, For 1 doseIndications:Multipl e myeloma not having achieved remission (HCC) Given 03/05/2024 11:30 AM EDT 40 mg diphenhydrAMINE (Benadryl) cap 50 mg 50 mg, Oral, ONCE, On Lilibeth 03/05/24 at 1145, For 1 doseIndications:Multipl e myeloma not having achieved remission (HCC) Given 03/05/2024 11:30 AM EDT 50 mg NSS infusion FOR HYDRATION Intravenous, at 500 mL/hr Administer over 2 Hours, ONCE, 1 dose, On Lilibeth 03/05/24 at 1145Indications:Multipl e myeloma not having achieved remission (HCC) Start Infusion 03/05/2024 11:27 AM EDT 1,000 mL 500 mL/hr NSS infusion FOR HYDRATION Intravenous, at 50 mL/hr Administer over 10 Hours, CONTINUOUS, Starting on Lilibeth 03/05/24 at 1145, Until Lilibeth 03/05/24 at 1527Indications:Multipl e myeloma not having achieved remission (HCC) Start Infusion 03/05/2024 11:23 AM EDT 500 mL 50 mL/hr ondansetron (Zofran) tab 8 mg 8 mg, Oral, ONCE, On Lilibeth 03/05/24 at 1145, For 1 doseIndications:Multipl e myeloma not having achieved remission (HCC) Given 03/05/2024 11:30 AM EDT 8 mg documented in this [...] Power of Attor coco? No Care Teams Leveler Helper Relationship Specialty Start Date End Date Michael Collins MD [address] [place] [address] [place] [address] PCP - General Internal Medicine 03/01/14 documented as of this encounter
--- OUTSIDE RECORDS SUMMARY | 2024-03-26 16:12 | External Medical Summary | Summary of Care ---
Author Name Unknown Organization [facility] Address [address] [facility] [place] [address] Phone [phone] Care Team Providers Care Rotary Furnace Operator Name Role Phone Michael Collins MD Primary Care Provi zehra Reason for Visit * Reason Comments Chemotherapy C41/D22 - Cytoxan IV Therapy Hydration * Episode Based Medications (Routine) - Authorized Specialty Diagnoses / Procedures Referred By Contjuanito t Referred To Contact Diagnoses Multiple myeloma not having achieved remission (HCC) Procedures NC DARATUMUMAB, HYALURONIDASE NC INJ, CYCLOPHOSPHAMIDE, NOS NC INJ CYCLOPHOSPHAMD AUROMEDIC Morgan Vásquez MD [address] [place] [address] Phone: tel: fax: Hematology/Oncology Treatment, [place] DEPT CLOSED - 03/26/23 [address] [place] [address] Phone: tel: fax: Referral ID Status Reason Start Date Expiration Date V isits Requested Visits Authorized [id number] Authorized 05/28/2022 05/12/2099 99 99 Encounter Details [...] 03/24/2024) Medications THEOPHYLLINE ER 450 MG PO [id number] :2 tablet at bedtime Take by mouth. [...] by mouth. Activ e Multiple Vitamins-Minera ls ([facility] IMMUNITY SUPPORT) CHEW Take [...] nostril at bedtime. PATIENT INFORMATION: Kris Sweett[address] [place] [address] [employer]: [employer] ORDER: Please start nocturnal oxygen via nasal [...] (electronically signed) Ish Caba MD Pulmonary Medicine, [address] [place] [address] [place] [facility] Medical License Number: [id number] 1 Each 023 Active metFORMIN HCl ER [...] mRNA, LNP-s, No Pre serve, 2-Dose Series ([employer]) 01/17/2021,08/05/2020,07/08/2020 COVID-19, LNP-s, No Preserve , Bryant-sucrose, [...] Assessment Author No 08/31/2019 8:07 AM EDT Brunson, Ro se M, RN * Do you [...] Mobile Phlebotomy [facility] [address] [place] [address] [facility], Gml Mobile Home Draw [address] [place] [address] [address] 03/26/2024 8:00 AM EST Hem/Onc Treatment Hematology/Oncology Treatment, [place] [address] [place] [id number] [place], Chair 5 Hem Onc Scenery [address] [place] [address] 04/01/2024 7:00 AM EST Laboratory Lab Mobile Phlebotomy [facility] [address] [place] [address] M[facility], Gml Mobile Home Draw [address] [facility] [place] [address] 04/08/2024 7:05 AM EST Laboratory Lab Mobile Phlebotomy [facility] [address] [place] [address] Mvmg, Gml Mobile Home Draw [address] [place] [address] 04/15/2024 7:05 AM EST Laboratory Lab Mobile Phlebotomy [facility] [address] [place] [address] Mvmg, Gml Mobile Home Draw [address] [place] [address] 04/22/2024 7:05 AM EST Laboratory Lab Mobile Phlebotomy [facility] [address] [place] [address] Mvmg, Gml Mobile Home Draw [address] [place] [address] 04/29/2024 7:05 AM EST Laboratory Lab Mobile Phlebotomy [facility] [address] [place] [address] Mvmg, Gml Mobile Home Draw [address] [place] [address] 05/05/2024 7:05 AM EST Laboratory Lab Mobile Phlebotomy [facility] [address] [place] [address] Mvmg, Gml Mobile Home Draw [address] [place] [address] 06/04/2024 11:00 AM EST Office [facility] [place] [address] [place] [address] Morgan Vásquez MD [address] [place] [address] 07/28/2024 7:00 AM EDT Office Visit Neurology [facility] [place] [address] [place] [address] Sandrita Pineda PA-C [address] [place] [address] 09/02/2024 8:20 AM EDT Office Visit Pulmonary Medicine, [facility] [address] [place] [address] Ish Caba MD [address] [facility] [place] [address] 05/03/2025 7:40 AM EST Office Visit Dermatology [address] [place] [address] Albina Romo PA-C [address] [place] [address] [place] [address] Health Maintenance Due Date Last Done Comments [...] encounter Medical Devices Implanted Type Area Food Service Manager Device Identifier Shelf Expiration Date Model / Serial / Lot Mesh Plug Xlarge [id number] - [id number] Implanted:Qty: 1 on 12/09/2020 by John Zaragoza MD at OR [facility] Left: Groin CR BARD : DAVOL 05/09/2023 [id number] / / [id number] documented as of this encounter Visit Diagnoses [...] Power of Attor coco? No Care Teams Rotary Furnace Operator Relationship Specialty Start Date End Date Michael Collins MD [address] [place] [address] [place] [address] PCP - General Internal Medicine 03/01/14 documented as of this encounter
--- OUTSIDE RECORDS SUMMARY | 2024-03-26 16:12 | External Medical Summary | Summary of Care ---
Author Name Unknown Organization [facility] Address [address] [facility] [place] [address] Phone [phone] Care Team Providers Care Die Engraver Name Role Phone Michael Collins MD Primary [...] Morgan Vásquez MD [address] [place] [address] Phone: tel: fax: Hematology/Oncology Treatment, [place] DEPT CLOSED - 03/26/[address] [address] Phone: tel: fax: Referral ID Status Reason Start Date Expiration Date V isits Requested Visits Authorized [id number] Authorized 05/28/2022 05/12/2099 99 99 Encounter Details Date Type Department Care Team (Latest Contact Info) Description 03/05/2024 11:15 AM EDT Hem/Onc Treatment Hematology/Oncolog y Treatment, [place] [address] [place] [address] Kenyatta, Chair 3 Hem Onc Scenery [address] [place] [address] Multiple myeloma not having achieved remission (HCC)*; Encounter for antineoplastic chemotherapy Allergies No known active allergiesdocumented as of this encounter (statuses as of 03/23/2024) Medications THEOPHYLLINE ER 450 MG PO [id number]: 2 tablet at bedtime Take by mouth. [...] by mouth. Activ e Multiple Vitamins-Mineral s ([facility] IMMUNITY SUPPORT) CHEW Take [...] nostril at bedtime. PATIENT INFORMATION: Kris Sweettania [address] [place] [address] [employer]: avox/Blucarat ORDER: Please start nocturnal oxygen via nasal [...] (electronically signed) Ish Caba MD Pulmonary Medicine, [address] [place] [address] [place] [facility] Medical License Number: [id number] 1 Each 09/22/19 23 Active metFORMIN HCl [...] mRNA, LNP-s, No Pre serve, 2-Dose Series ([employer]) 01/17/2021,08/05/2020,07/08/2020 COVID-19, LNP-s, No Preserve , Bryant-sucrose, [...] EST Laboratory Lab Mobile Phlebotomy MVMG [address] [place], [place] [address] Mvmg, Gml Mobile Home Draw 2520 [facility] [place], [place] [address] 03/26/2024 8:00 AM EST Hem/Onc Treatment Hematology/Oncology Treatment, [place] [address] [place], [place] [phone] Kenyatta, Chair 5 Hem Onc Scenery [address] [place] [address] 04/01/2024 7:00 AM EST Laboratory Lab Mobile Phlebotomy MVMG [address] [place], [place] [address] Mvmg, Gml Mobile Home Draw 2520 [facility] [place], [place] [address] 04/08/2024 7:05 AM EST Laboratory Lab Mobile Phlebotomy MVMG [address] [place], [place] [address] Mvmg, Gml Mobile Home Draw 2520 [facility] [place] [address] 04/15/2024 7:05 AM EST Laboratory Lab Mobile Phlebotomy MVMG [address] [place] [address] Mvmg, Gml Mobile Home Draw [address] [facility] [place] [address] 04/22/2024 7:05 AM EST Laboratory Lab Mobile Phlebotomy MVMG [address] [place] [address] Mvmg, Gml Mobile Home Draw [address] Gen [facility] [place] [address] 04/29/2024 7:05 AM EST Laboratory Lab Mobile Phlebotomy MVMG 2520 [facility] [place] [address] Mvmg, Gml Mobile Home Draw 2520 [facility] [place] [address] 05/05/2024 7:05 AM EST Laboratory Lab Mobile Phlebotomy MVMG 2520 [facility] [place] [address] Mvmg, Gml Mobile Home Draw 2520 [facility] [place] [address] 06/04/2024 11:00 AM EST Office Visit Hematology/Oncology [facility] [address] [place] [address] Morgan Vásquez MD [address] [place] [address] 07/28/2024 7:00 AM EDT Office Visit Neurology [facility] [address] [place] [address] Sandrita Pineda PAYeimyC 21 [facility] [place] [address] 09/02/2024 8:20 AM EDT Office Visit Pulmonary Medicine, [facility] 132 [facility] [place] [address] [facility] [address] [facility] [address] 05/03/2025 7:40 AM EST Office Visit Dermatology [address] [place] [address] Albina Romo PA-C [address] [place] [address] [place] [address] Health Maintenance Due Date Last Done Comments [...] this encounter Medical Devices Implanted Type Area Hospital Recruiter Device Identifier Shelf Expiration Date Model / Serial / Lot Mesh Plug Xlarge [id number] - [id number] Implanted:Qty: 1 on 12/09/2020 by John Zaragoza MD at OR [facility] Left: Groin CR BARD : DAVOL 05/09/2023 [id number] / / [id number] documented as of this encounter Visit Diagnoses [...] 517.4 mL/hr Daratumumab-hyaluronida se-fihj (Darzalex Faspro) 1800 mg-24481 units/ 15 ml subcut inj 15 mL, [...] Power of Attor coco? No Care Teams Die Engraver Relationship Specialty Start Date End Date Michael Collins MD [address] [place] [address] [place] [address] PCP - General Internal Medicine 03/01/14 documented as of this encounter
--- OUTSIDE RECORDS SUMMARY | 2024-03-26 16:12 | External Medical Summary | Summary of Care ---
Author Name Unknown Organization [facility] Address [address] [facility] [place] [address] Phone [phone] Care Team Providers Care Call Center Dispatcher Name Role Phone Michael Collins MD Primary Care Provi zerha Reason for Visit * Reason Comments Chemotherapy C41/D22 - Cytoxan IV Therapy Hydration * Episode Based Medications (Routine) - Authorized Specialty Diagnoses / Procedures Referred By Contjuanito t Referred To Contact Diagnoses Multiple myeloma not having achieved remission (HCC) Procedures [place] DARATUMUMAB, HYALURONIDASE [place] INJ, CYCLOPHOSPHAMIDE, NOS [place] INJ CYCLOPHOSPHAMD [facility] Morgan Vásquez MD [address] [place] [address] Phone: tel: fax: Hematology/Oncology Treatment, [place] DEPT CLOSED - 03/26/23 [address] [place] [address] Phone: tel: fax: Referral ID Status Reason Start Date Expiration Date V isits Requested Visits Authorized [id number] Authorized 05/28/2022 05/12/2099 99 99 Encounter Details [...] 03/24/2024) Medications THEOPHYLLINE ER 450 MG PO [id number] :2 tablet at bedtime Take by mouth. [...] by mouth. Activ e Multiple Vitamins-Minera ls ([facility] IMMUNITY SUPPORT) CHEW Take by [...] nostril at bedtime. PATIENT INFORMATION: Kris Sweettania [address] [place] [address] [employer]etovisit: Hyperpot/My Dog Bowl ORDER: Please start nocturnal oxygen via nasal [...] (electronically signed) Ish Caba MD Pulmonary Medicine, [address] [place] [address] E[place] [facility] Medical License Number: [id number] 1 Each 023 Active metFORMIN HCl ER [...] mRNA, LNP-s, No Pre serve, 2-Dose Series ([employer] 01/17/2021,08/05/2020,07/08/2020 COVID-19, LNP-s, No Preserve , Bryant-sucrose, [...] Assessment Author No 08/31/2019 8:07 AM EDT Bancroft, Ro se M, RN * Do you [...] Mobile Phlebotomy MVMG [address] [place] [address] Mvmg, Gml Mobile Home Draw [address] [place] [address] 03/26/2024 8:00 AM EST Hem/Onc Treatment Hematology/Oncology Treatment, [place] [address] [place] [phone] Park, Chair 5 Hem Onc Scenery [address] [place] [address] 04/01/2024 7:00 AM EST Laboratory Lab Mobile Phlebotomy MVMG [address] [place] [address] Mvmg, Gml Mobile Home Draw 25[address] Gen [facility] [place] [address] 04/08/2024 7:05 AM EST Laboratory Lab Mobile Phlebotomy MVMG [address] [employer] [place] [address] Mvmg, Gml Mobile Home Draw [address] [place] [address] 04/15/2024 7:05 AM EST Laboratory Lab Mobile Phlebotomy MVMG [address] [employer] [place] [address] Mvmg, Gml Mobile Home Draw [address] [place] [address] 04/22/2024 7:05 AM EST Laboratory Lab Mobile Phlebotomy MVMG [address] [employer] [place] [address] Mvmg, Gml Mobile Home Draw [address] [place] [address] 04/29/2024 7:05 AM EST Laboratory Lab Mobile Phlebotomy MVMG [address] [employer] [place] [address] Mvmg, Gml Mobile Home Draw [address] [place] [address] 05/05/2024 7:05 AM EST Laboratory Lab Mobile Phlebotomy MVMG [address] [place] [address] Mvmg, Gml Mobile Home Draw [address] [place] [address] 06/04/2024 11:00 AM EST Office Visit [facility] [place] [address] [place] [address] Morgan Vásquez MD [address] [place] [address] 07/28/2024 7:00 AM EDT Office Visit Neurology [facility] [place] [address] [place] [address] Sandrita Pineda PA-C [address] [place] [address] 09/02/2024 8:20 AM EDT Office Visit Pulmonary Medicine, [facility] [address] [place] [address] Ish Caba MD [address] [facility] [place] [address] 05/03/2025 7:40 AM EST Office Visit Dermatology [address] [place] [address] Albina Romo PA-C [address] [place] [address] [place] [address] Health Maintenance Due Date Last Done Comments [...] this encounter Medical Devices Implanted Type Area Service Center Assistant Device Identifier Shelf Expiration Date Model / Serial / Lot Mesh Plug Xlarge [id number] - [id number] Implanted:Qty: 1 on 12/09/2020 by John Zaragoza MD at OR [facility] Left: Groin CR BARD : DAVOL 05/09/2023 [id number] / / [id number] documented as of this encounter Visit Diagnoses [...] Power of Attor coco? No Care Teams Call Center Dispatcher Relationship Specialty Start Date End Date Michael Collins MD [address] [place] [address] [place] [address] PCP - General Internal Medicine 03/01/14 documented as of this encounter
--- OUTSIDE RECORDS SUMMARY | 2024-03-26 16:12 | External Medical Summary | Summary of Care ---
Author Name Unknown Organization [facility] Address [address] [facility] [place] [address] Phone [phone] Care Team Providers Care Electronics Manufacturer Name Role Phone Michael Collins MD Primary Care Provi zehra Reason for Visit * Reason Comments eRx-Medication Refill Encounter Details Date Type Department Care Team (Late st Contact Info) Description 03/22/2024 Refill Neurology [facility] [place] [address] [place] [address] Octavia Goins PA-C 200 [facility] [place] [address] Allergies No known active allergiesdocumented as of this encounter (statuses as of 03/23/2024) Medications THEOPHYLLINE ER 450 MG PO [id number] :2 tablet at bedtime Take by mouth. Indications: 2 tablet at bedtime Active B COMPLEX FORMULA 1 PO TABS Take by mouth. Activ e MULTIVITAMINS PO CAPS 1 daily Active FOLIC ACID 1 MG PO TABS Take by mouth daily. Active METOPROLOL XL TBCR 50 MG OR 1 tab daily 05/25/19 15 Active hydrochlorothia zide (HYDRODIURIL) 25 MG Tablet Take 1 Tablet by mouth in the morning. 1 tab daily . 5 02/23/20 15 Active losartan (COZAAR) 50 MG Tablet Take 1 Tablet by mouth in the morning. 1 tab daily. 5 02/23/20 15 Active VENTOLIN HFA 108 (90 BASE) MCG/ACT inhaler As needed 11 02/23/20 15 Active omega-3 1000 MG CAPS Take by mouth. Activ e Multiple Vitamins-Minera ls ([facility] IMMUNITY SUPPORT) CHEW Take by mouth. [...] into nostril at bedtime. PATIENT INFORMATION: Kris Galvin [address] [place] [address] [employer] Ch[employer]: Ctrip/TBD ORDER: Please start nocturnal oxygen via nasal [...] (electronically signed) Ish Caba MD Pulmonary Medicine, [address] [place] [address] [facility] Medical License Number: [id number] 1 Each 09/22/19 23 Active metFORMIN HCl [...] 23 Active Acyclovir 800 MG Oral Tablet (Zovirax)Indica tions:Multiple myeloma not having achieved remission (HCC),History of autologous stem cell transplant (HCC) TAKE 1 TABLET BY MOUTH TWICE A DAY 180 Tablet 3 09/16/19 24 Active Prochlorperazin e Maleate 10 MG Oral [...] 24 Active dexAMETHasone 4 MG Oral Tablet (Decadron)Indic ations:Multiple myeloma not having achieved remission (HCC) Take 10 tablets once a week on weeks without Darzalex. Take 5 tablets on week of Darzalex injection. 35 Tablet 2 03/09/20 Active DULoxetine HCl 60 MG Oral Capsule Delayed Release Particles (Cymbalta) TAKE 1 CAPSULE BY MOUTH IN THE MORNING AND BEFORE BEDTIME 180 Capsule 1 03/23/20 24 Active DULoxetine HCl 60 MG Oral Capsule Delayed Release Particles (Cymbalta) Take 1 Capsule by mouth in the morning and 1 Capsule before bedtime. 180 Capsule 1 09/30/19 24 2023 Discontinued Hospital, Clinic, or Other Facility Administered Medication [...] mRNA, LNP-s, No Pre serve, 2-Dose Series ([employer]) 01/17/2021,08/05/2020,07/08/2020 COVID-19, LNP-s, No Preserve , Bryant-sucrose, [...] of Assessment Author No 08/31/2019 8:07 AM EDMckenzie Barragan se, RN * Do you have serious [...] Entry Date Author No 08/31/2019 8:07 AM Mckenzie Deras se, RN documented in this encounter Miscellaneous Notes * Telephone Encounter - Ibeth Mir RPh - 03/23/2024 1:09 PM ESTSigned Prescriptions: Disp Refills DULoxetine HCl 60 MG Oral Capsule Delayed *180 Ca*1 Sig: TAKE 1CAPSULE BY MOUTH IN THE MORNING AND BEFORE BEDTIMEAuthorizing Provider: OCTAVIA GOINS User: IBETH MIR documented in this encounter Plan of Treatment Upcoming Encounters Date Type Department Care Team (Late st Contact Info) Description 03/25/2024 7:05 AM EST Laboratory Lab Mobile Phlebotomy MVMG [address] [place], [place] [address] Mvmg, Gml Mobile Home Draw [address] [place], [place] [address] 03/26/2024 8:00 AM EST Hem/Onc Treatment Hematology/Oncology Treatment, [place] [address] [place] [phone] Kenyatta, Chair 5 Hem Onc Scenery 200 [facility] [place] [address] 04/01/2024 7:00 AM EST Laboratory Lab Mobile Phlebotomy MVMG [address] [place], [place] [address] Mvmg, Gml Mobile Home Draw [address] [place], [place] [address] 04/08/2024 7:05 AM EST Laboratory Lab Mobile Phlebotomy MVMG [address] [place] [address] Mvmg, Gml Mobile Home Draw [address] [place] [address] 04/15/2024 7:05 AM EST Laboratory Lab Mobile Phlebotomy MVMG [address] [place] [address] Mvmg, Gml Mobile Home Draw [address] [place] [address] 04/22/2024 7:05 AM EST Laboratory Lab Mobile Phlebotomy MVMG [address] [place] [address] Mvmg, Gml Mobile Home Draw [address] [place] [address] 04/29/2024 7:05 AM EST Laboratory Lab Mobile Phlebotomy MVMG [address] [place] [address] Mvmg, Gml Mobile Home Draw [address] [place] [address] 05/05/2024 7:05 AM EST Laboratory Lab Mobile Phlebotomy MVMG 2520 [facility] [place] [address] Mvmg, Gml Mobile Home Draw 8080 [place] [address] 06/04/2024 11:00 AM EST Office Visit Hematology/Oncology [facility] [address] [facility] [place] [phone] Morgan Vásquez MD 200 [facility] [place] [address] 07/28/2024 7:00 AM EDT Office Visit Neurology [facility] 200 [facility] [place] [address] Sandrita Pineda PA-C 21 [facility] [place] [address] 09/02/2024 8:20 AM EDT Office Visit Pulmonary Medicine, [facility] 132 [facility] [place] [address] Ish Caba MD [address] [facility] 05/03/2025 7:40 AM EST Office Visit Dermatology [address] [place] [address] Albina Romo PAManolo [address] [place] [address] [place] [address] Health Maintenance Due Date Last Done Comments [...] this encounter Medical Devices Implanted Type Area Floor Press Operator Device Identifier Shelf Expiration Date Model / Serial / Lot Mesh Plug Xlarge [id number] - [id number] Implanted:Qty: 1 on 12/09/2020 by John Zaragoza MD at OR [facility] Left: Groin CR BARD : DAVOL 05/09/2023 [id number] / / [id number] documented as of this encounter Advance Directives * Full Code [...] Power of Attor coco? No Care Teams Electronics Manufacturer Relationship Specialty Start Date End Date Michael Collins MD [address] [place] [address] [place] [address] PCP - General Internal Medicine 03/01/14 documented as of this encounter
--- OUTSIDE RECORDS SUMMARY | 2024-03-26 16:12 | External Medical Summary | Summary of Care ---
Author Name Unknown Organization [facility] Address [address] [facility] [place] [address] Phone [phone] Care Team Providers Care Four Slide Machine Operator Name Role Phone Michael Collins MD [...] Morgan Vásquez MD [address] [place] [address] Phone: tel: fax: Hematology/Oncology Treatment, [place] DEPT CLOSED - 03/26/[address] [address] Phone: tel: fax: Referral ID Status Reason Start Date Expiration Date V isits Requested Visits Authorized [id number] Authorized 05/28/2022 05/12/2099 99 99 Encounter Details Date Type Department Care Team (Latest Contact Info) Description 03/05/2024 11:15 AM EDT Hem/Onc Treatment Hematology/Oncolog y Treatment, [place] [address] [place] [address] Kenyatta, Chair 3 Hem Onc Scenery [address] [place] [address] Multiple myeloma not having achieved remission (HCC)*; Encounter for antineoplastic chemotherapy Allergies No known active allergiesdocumented as of this encounter (statuses as of 03/23/2024) Medications THEOPHYLLINE ER 450 MG PO [id number]: 2 tablet at bedtime Take by mouth. [...] by mouth. Activ e Multiple Vitamins-Mineral s ([facility] IMMUNITY SUPPORT) CHEW Take by [...] nostril at bedtime. PATIENT INFORMATION: Kris Sweettania [address] [place] [address] [employer]: 123people/MyPronostic ORDER: Please start nocturnal oxygen via nasal [...] (electronically signed) Ish Caba MD Pulmonary Medicine, [address] [place] [address] [place] [facility] Medical License Number: [id number] 1 Each 09/22/19 23 Active metFORMIN HCl [...] mRNA, LNP-s, No Pre serve, 2-Dose Series ([employer]) 01/17/2021,08/05/2020,07/08/2020 COVID-19, LNP-s, No Preserve , Bryant-sucrose, [...] Pt discharged in stable condition. * Abril Ayres RN - 03/05/2024 2:38 PM EDT Chair [...] EST Laboratory Lab Mobile Phlebotomy MVMG [address] [employer] [address] [place], [place] [address] Mvmg, Gml Mobile Home Draw 2520 [facility] [place], [place] [address] 03/26/2024 8:00 AM EST Hem/Onc Treatment Hematology/Oncology Treatment, [place] [address] [place], [place] [phone] Kenyatta, Chair 5 Hem Onc Scenery [address] [facility] [place] [address] 04/01/2024 7:00 AM EST Laboratory Lab Mobile Phlebotomy MVMG [address] [place] [address] [place], [place] [address] Mvmg, Gml Mobile Home Draw 2520 [facility] [place], [place] [address] 04/08/2024 7:05 AM EST Laboratory Lab Mobile Phlebotomy MVMG [address] [place], [place] [address] Mvmg, Gml Mobile Home Draw 2520 [facility] [place] [address] 04/15/2024 7:05 AM EST Laboratory Lab Mobile Phlebotomy MVMG [address] [facility] [place] [address] Mvmg, Gml Mobile Home Draw [address] [facility] [place] [address] 04/22/2024 7:05 AM EST Laboratory Lab Mobile Phlebotomy MVMG [address] [place] [address] Mvmg, Gml Mobile Home Draw [address] [facility] [place] [address] 04/29/2024 7:05 AM EST Laboratory Lab Mobile Phlebotomy MVMG 25[address] [facility] [place] [address] Mvmg, Gml Mobile Home Draw 2520 [facility] [place] [address] 05/05/2024 7:05 AM EST Laboratory Lab Mobile Phlebotomy MVMG 25[address] [facility] [place] [address] Mvmg, Gml Mobile Home Draw 2520 [facility] [place] [address] 06/04/2024 11:00 AM EST Office Visit Hematology/Oncology [facility] [address] [place] [phone] Morgan Vásquez MD [address] [place] [address] 07/28/2024 7:00 AM EDT Office Visit Neurology [facility] [address] [place] [address] Sandrita Pineda PAYeimyC 21 [facility] [place] [address] 09/02/2024 8:20 AM EDT Office Visit Pulmonary Medicine, [facility] 132 [facility] [place] [address] Ish Caba MD [address] [facility] [address] 05/03/2025 7:40 AM EST Office Visit Dermatology [address] [place] [address] Albina Romo PA-C [address] [place] [address] [place] [address] Health Maintenance Due Date Last Done Comments [...] this encounter Medical Devices Implanted Type Area Principal Archaeologist Device Identifier Shelf Expiration Date Model / Serial / Lot Mesh Plug Xlarge [id number] - [id number] Implanted:Qty: 1 on 12/09/2020 by John Zaragoza MD at OR [facility] Left: Groin CR BARD : DAVOL 05/09/2023 [id number] / / [id number] documented as of this encounter Visit Diagnoses [...] 517.4 mL/hr Daratumumab-hyaluronida se-fihj (Darzalex Faspro) 1800 mg-53527 units/ 15 ml subcut inj 15 mL, [...] Power of Attor coco? No Care Teams Four Slide Machine Operator Relationship Specialty Start Date End Date Michael Collins MD [address] [place] [address] [place] [address] PCP - General Internal Medicine 03/01/14 documented as of this encounter
--- OUTSIDE RECORDS SUMMARY | 2024-03-26 16:12 | External Medical Summary | Summary of Care ---
Author Name Unknown Organization [facility] Address [address] [facility] [place] [address] Phone [phone] Care Team Providers Care Contracts Attorney Name Role Phone Michael Collins MD Primary Care Provi zehra Reason for Visit * Reason Comments Chemotherapy C41/D22 - Cytoxan IV Therapy Hydration * Episode Based Medications (Routine) - Authorized Specialty Diagnoses / Procedures Referred By Contjuanito t Referred To Contact Diagnoses Multiple myeloma not having achieved remission (HCC) Procedures IN DARATUMUMAB, HYALURONIDASE IN INJ, CYCLOPHOSPHAMIDE, NOS IN INJ CYCLOPHOSPHAMD AUROMEDIC Morgan Vásquez MD [address] [place] [address] Phone: tel: fax: Hematology/Oncology Treatment, [place] DEPT CLOSED - 03/26/23 [address] [place] [address] Phone: tel: fax: Referral ID Status Reason Start Date Expiration Date V isits Requested Visits Authorized [id number] Authorized 05/28/2022 05/12/2099 99 99 Encounter Details [...] 03/24/2024) Medications THEOPHYLLINE ER 450 MG PO [id number] :2 tablet at bedtime Take by mouth. [...] nostril at bedtime. PATIENT INFORMATION: Kris Sweettania [address] [place] [address] [employer] MEDICAL EQUIPMENT [employer]: [employer] ORDER: Please start nocturnal oxygen via nasal [...] (electronically signed) Ish Caba MD Pulmonary Medicine, [address] [place] [address] [place] [facility] Medical License Number: [id number] 1 Each 023 Active metFORMIN HCl ER [...] mRNA, LNP-s, No Pre serve, 2-Dose Series (Floxx) 01/17/2021,08/05/2020,07/08/2020 COVID-19, LNP-s, No Preserve , Bryant-sucrose, [...] Assessment Author No 08/31/2019 8:07 AM EDT [place], Ro se M, RN * Do you [...] Mobile Phlebotomy [facility] [address] [place] [address] Mvmg, Gml Mobile Home Draw [address] [place] [address] 03/26/2024 8:00 AM EST Hem/Onc Treatment Hematology/Oncology Treatment, [place] [address] [place] [phone] Park, Chair 5 Hem Onc Scenery [address] [place] [address] 04/01/2024 7:00 AM EST Laboratory Lab Mobile Phlebotomy [facility] [address] [place] [address] Mvmg, Gml Mobile Home Draw [address] [facility] [place] [address] 04/08/2024 7:05 AM EST Laboratory Lab Mobile Phlebotomy [facility] [address] [place] [address] Mvmg, Gml Mobile Home Draw [address] [place] [address] 04/15/2024 7:05 AM EST Laboratory Lab Mobile Phlebotomy [facility] [address] [place] [address] Mvmg, Gml Mobile Home Draw [address] [place] [address] 04/22/2024 7:05 AM EST Laboratory Lab Mobile Phlebotomy [facility] [address] [place] [address] Mvmg, Gml Mobile Home Draw [address] [place] [address] 04/29/2024 7:05 AM EST Laboratory Lab Mobile Phlebotomy [facility] [address] [place] [address] Mvmg, Gml Mobile Home Draw [address] [place] [address] 05/05/2024 7:05 AM EST Laboratory Lab Mobile Phlebotomy [facility] [address] [place] [address] Mvmg, Gml Mobile Home Draw [address] [place] [address] 06/04/2024 11:00 AM EST Office Visit [facility]ology[facility] [place] [address] [place] [address] Morgan Vásquez MD [address] [place] [address] 07/28/2024 7:00 AM EDT Office Visit Neurology Amena You [place] [address] [place] [address] Sandrita Pineda PA-C [address] [place] [address] 09/02/2024 8:20 AM EDT Office Visit Pulmonary Medicine, [facility] [address] [place] [address] Ish Caba MD [address] [facility] [place] [address] 05/03/2025 7:40 AM EST Office Visit Dermatology [address] [place] [address] Albina Romo PA-C [address] [place] [address] [place] [address] Health Maintenance Due Date Last Done Comments [...] this encounter Medical Devices Implanted Type Area Casing Crew Device Identifier Shelf Expiration Date Model / Serial / Lot Mesh Plug Xlarge [id number] - [id number] Implanted:Qty: 1 on 12/09/2020 by John Zaragoza MD at OR [facility] Left: Groin CR BARD : DAVOL 05/09/2023 [id number] / / [id number] documented as of this encounter Visit Diagnoses [...] Power of Attor coco? No Care Teams Contracts Attorney Relationship Specialty Start Date End Date Michael Collins MD [address] [place] [address] [place] [address] PCP - General Internal Medicine 03/01/14 documented as of this encounter
--- OUTSIDE RECORDS SUMMARY | 2024-03-26 16:12 | External Medical Summary | Summary of Care ---
Author Name Unknown Organization [facility] Address [address] [facility] [place] [address] Phone [phone] Care Team Providers Care Farm Management Professor Name Role Phone Michael Collins MD Primary Care Provi zehra Reason for Visit * Reason Comments Chemotherapy C41/D22 - Cytoxan IV Therapy Hydration * Episode Based Medications (Routine) - Authorized Specialty Diagnoses / Procedures Referred By Contjuanito t Referred To Contact Diagnoses Multiple myeloma not having achieved remission (HCC) Procedures [place] DARATUMUMAB, HYALURONIDASE [place] INJ, CYCLOPHOSPHAMIDE, NOS [place] INJ CYCLOPHOSPHAMD AUROMEDIC Morgan Vásquez MD [address] [place] [address] Phone: tel: fax: Hematology/Oncology Treatment, [place] DEPT CLOSED - 03/26/23 [address] [place] [address] Phone: tel: fax: Referral ID Status Reason Start Date Expiration Date V isits Requested Visits Authorized [id number] Authorized 05/28/2022 05/12/2099 99 99 Encounter Details [...] 03/24/2024) Medications THEOPHYLLINE ER 450 MG PO [id number] :2 tablet at bedtime Take by mouth. [...] by mouth. Activ e Multiple Vitamins-Minera ls ([facility] IMMUNITY SUPPORT) CHEW Take by mouth. A [...] nostril at bedtime. PATIENT INFORMATION: Kris Sweettania [address] [place] [address] [employer] MEDICAL EQUIPMENT [employer]: [employer] ORDER: Please start nocturnal oxygen via nasal [...] (electronically signed) Ish Caba MD Pulmonary Medicine, [address] [place] [address] [place] [facility] Medical License Number: [id number] 1 Each 023 Active metFORMIN HCl ER [...] mRNA, LNP-s, No Pre serve, 2-Dose Series ([employer]iMeiWei) 01/17/2021,08/05/2020,07/08/2020 COVID-19, LNP-s, No Preserve , Bryant-sucrose, [...] Assessment Author No 08/31/2019 8:07 AM EDT [place], Ro se M, RN * Do you [...] Mobile Phlebotomy [facility] [address] [place] [address] Mvmg, Gml Mobile Home Draw [address] [place] [address] 03/26/2024 8:00 AM EST Hem/Onc Treatment Hematology/Oncology Treatment, [place] [address] [place] [phone] Park, Chair 5 Hem Onc Scenery [address] [place] [address] 04/01/2024 7:00 AM EST Laboratory Lab Mobile Phlebotomy [facility] [address] [place] [address] Mvmg, Gml Mobile Home Draw [address] [place] [address] 04/08/2024 7:05 AM EST Laboratory Lab Mobile Phlebotomy [facility] [address] [place] [address] Mvmg, Gml Mobile Home Draw [address] [place] [address] 04/15/2024 7:05 AM EST Laboratory Lab Mobile Phlebotomy [facility] [address] [place] [address] Mvmg, Gml Mobile Home Draw [address] [place] [address] 04/22/2024 7:05 AM EST Laboratory Lab Mobile Phlebotomy [facility] [address] [place] [address] Mvmg, Gml Mobile Home Draw [address] [place] [address] 04/29/2024 7:05 AM EST Laboratory Lab Mobile Phlebotomy [facility] [address] [place] [address] Mvmg, Gml Mobile Home Draw [address] [place] [address] 05/05/2024 7:05 AM EST Laboratory Lab Mobile Phlebotomy [facility] [address] [place] [address] Mvmg, Gml Mobile Home Draw [address] [place] [address] 06/04/2024 11:00 AM EST Office Visit Hematology/Oncology [facility] [place] [address] [place] [address] Morgan Vásquez MD [address] [place] [address] 07/28/2024 7:00 AM EDT Office Visit Neurology Amena You [place] [address] [place] [address] Sandrita Pineda PA-C [address] [place] [address] 09/02/2024 8:20 AM EDT Office Visit Pulmonary Medicine, [facility] [address] [place] [address] Ish Caba MD [address] [facility] [place] [address] 05/03/2025 7:40 AM EST Office Visit Dermatology [address] [place] [address] Albina Romo PA-C [address] [place] [address] [place] [address] Health Maintenance Due Date Last Done Comments [...] this encounter Medical Devices Implanted Type Area Forensic Photographer Device Identifier Shelf Expiration Date Model / Serial / Lot Mesh Plug Xlarge [id number] - [id number] Implanted:Qty: 1 on 12/09/2020 by John Zaragoza MD at OR [facility] Left: Groin CR BARD : DAVOL 05/09/2023 [id number] / / [id number] documented as of this encounter Visit Diagnoses [...] Power of Attor coco? No Care Teams Farm Management Professor Relationship Specialty Start Date End Date Michael Collins MD [address] [place] [address] [place] [address] PCP - General Internal Medicine 03/01/14 documented as of this encounter
--- OUTSIDE RECORDS SUMMARY | 2024-03-26 16:13 | External Medical Summary | Summary of Care ---
Author Name Unknown Organization [facility] Address [address] [facility] [place] [address] Phone [phone] Care Team Providers Care Certified Physical Therapist Assistant Name Role Phone Michael Collins MD Primary Care Provi zehra Reason for Visit * Reason Comments Chemotherapy C42, D 1 Cytoxan and Darzalax Faspro * Episode Based Medications (Routine) - Authorized Specialty Diagnoses / Procedures Referred By Contjuanito t Referred To Contact Diagnoses Multiple myeloma not having achieved remission (HCC) Procedures [place] DARATUMUMAB, HYALURONIDASE [place] INJ, CYCLOPHOSPHAMIDE, NOS [place] INJ CYCLOPHOSPHAMD AUROMEDIC Morgan Vásquez MD [address] [place] [address] Anc Hem/Onc [place] DEPT CLOSED - 03/26/[address] [place] [phone] Referral ID Status Reason Start Date Expiration Date V isits Requested Visits Authorized [id number] Authorized 05/28/2022 05/12/2099 99 99 Encounter Details Date Type Department Care Team (Latest Contact Info) Description 03/05/2024 11:15 AM EDT Hem/Onc Treatment Hematology/Oncolog y Treatment, [place] [address] [place] [address] [place], Chair 3 Hem Onc Scenery [address] [address] Multiple myeloma not having achieved remission (HCC)*; Encounter for antineoplastic chemotherapy Allergies No known active allergiesdocumented as of this encounter (statuses as of 03/20/2024) Medications Medication Sig Dispensed Refills Start Date End Date Status THEOPHYLLINE ER 450 MG PO [id number]:2 tablet at bedtime Take by mouth. Indications: 2 tablet at bedtime Active B COMPLEX FORMULA 1 PO TABS Take by mouth. Active MULTIVITAMINS PO CAPS 1 daily Active FOLIC ACID 1 MG PO TABS Take by mouth daily. Active METOPROLOL XL TBCR 50 MG OR 1 tab daily 05/25/2014 Active hydrochlorothiazi de (HYDRODIURIL) 25 MG Tablet Take 1 Tablet by mouth in the morning. 1 tab daily . 5 02/22/2015 Active losartan (COZAAR) 50 MG Tablet Take 1 Tablet by mouth in the morning. 1 tab daily. 5 02/22/2015 Active VENTOLIN HFA 108 (90 BASE) MCG/ACT inhaler As needed 02/22/2015 Active omega-3 1000 MG CAPS Take by mouth. Active Multiple Vitamins-Minerals ([facility] IMMUNITY SUPPORT) CHEW Take by mouth. Active traZODone (DESYREL) 150 MG Tablet Take 250 mg by mouth at bedtime. Active omeprazole (PRILOSEC) 40 MG CPDR Take 1 Capsule by mouth in the morning and 1 Capsule before bedtime. Active albuterol sulfate (PROVENTIL) (2.5 MG/3ML) 0.083% nebulizer solution INHALE 1 VIAL VIA NEBULIZER EVERY 6 HOURS NEEDED FOR SHORTNESS OF BREATH OR WHEEZING 07/30/2019 Active acetaminophen (TYLENOL EXTRA STRENGTH) 500 MG Tablet Take 1 Tab by mouth every 6 hours as needed for Pain or Fever. 30 Tab 09/15/2019 Active zolpidem (AMBIEN) 5 MG Tablet Take 1 Tablet by mouth at bedtime as needed for Sleep. Active Aspirin 81 MG Oral Tablet Chewable Take 1 Tablet by mouth in the morning. Active Diphenoxylate-Atr opine 2.5-0.025 MG Oral Tablet (Lomotil)Indicati ons:Multiple myeloma in remission (HCC),Diarrhea, unspecified type TAKE 1 TABLET BY MOUTH 4 TIMES A DAY NEEDED FOR DIARRHEA 60 Tab 02/07/2021 Active Sildenafil Citrate 100 MG Oral Tablet 03/29/2021 Active Clobetasol Propionate 0.05 % External Ointment (Temovate)Indicat ions:Skin rash Apply topically to affected area 2 times a day . 30 g 2 03/01/2022 Active B Complex Formula 1 (Lipotrop) Oral Tablet Active Levalbuterol HCl 1.25 MG/3ML Inhalation Nebulization Solution (Xopenex) INHALE CONTENTS OF 1 VIAL (3ML) EVERY 6 HOURS 05/31/2022 Active oxygen IN GAS Administer 2 L/min(Oxygen) into nostril at bedtime. PATIENT INFORMATION: Kris Galvin [address] [place] [address] [employer]: [employer] [facility] ORDER: Please start nocturnal oxygen via nasal [...] signed) Ish Caba MD Pulmonary Medicine, [address] [place] [address] [place] [facility] Medical License Number: [id number] 1 Each 09/21/2022 Active metFORMIN HCl ER (OSM) 500 MG Oral Tablet Extended Release 24 Hour 1 Tablet. 01/09/2023 Active oxyCODONE HCl 5 MG Oral Tablet (Oxy IR) TAKE 1 TAB BY MOUTH EVERY 6 HOURS NEEDED FOR PAIN Active Triamcinolone Acetonide 0.1 % External Cream (Aristocort) Apply 2x daily to rashes areas on trunk/arms/legs during winter time mostly. 454 g 04/29/2023 Active Acyclovir 800 MG Oral Tablet (Zovirax)Indicati ons:Multiple myeloma not having achieved remission (HCC),History of autologous stem cell transplant (HCC) TAKE 1 TABLET BY MOUTH TWICE A DAY 180 Tablet 3 09/16/2023 Active DULoxetine HCl 60 MG Oral Capsule Delayed Release Particles (Cymbalta) Take 1 Capsule by mouth in the morning and 1 Capsule before bedtime. 180 Capsule 1 09/30/2023 Active Prochlorperazine Maleate 10 MG Oral Tablet (Compazine)Indica tions:Multiple myeloma in remission (HCC) Take 1 Tablet by mouth every 6 hours as needed for Nausea. 60 Tablet 5 10/09/2023 Active metFORMIN HCl ER 500 MG Oral Tablet Extended Release 24 Hour (Glucophage XR) Take 1 Tablet by mouth in the morning and 1 Tablet before bedtime. 10/01/2023 Active Ondansetron HCl 8 MG Oral Tablet (Zofran)Indicatio ns:Multiple myeloma (HCC) TAKE 1 TABLET BY MOUTH EVERY 8 HOURS NEEDED FOR NAUSEA 90 Tablet 1 01/15/2024 Active Pregabalin 25 MG Oral Capsule (Lyrica) TAKE 1 CAPSULE BY MOUTH IN THE MORNING AND IN THE EVENING 60 Capsule 4 02/12/2024 Active dexAMETHasone 4 MG Oral Tablet (Decadron)Indicat ions:Multiple myeloma not having achieved remission (HCC) Take 10 tablets once a week on weeks without Darzalex. Take 5 tablets on week of Darzalex injection. 35 Tablet 2 10/08/2023 Discontinu ed(Refill) Hospital, Clinic, or Other Facility Administered Medication [...] as of this encounter (statuses as of 03/20/2024) Active Problems Problem Noted Date Diagnosed Date [...] History of autologous stem cell transplant 09/01 Overview: T 0 = 09/01/2019 Preparative Regimen: Melphalan 200 mg/m2 Stem Cell Dose: 5.96 X 10^6 CD 34/kg Encounter for antineoplastic chemotherapy 2019 Sinusitis 04/29/2019 Multiple myeloma in remission 04/29/2019 MGUS (monoclonal gammopathy of unknown significa nce) 04/14/2018 Asthma 01/03/2012 Essential hypertension 01/03/2012 Overview: ICD-10 update of inactive term Concussion with loss of consciousness of 30 elena lucio or less 01/03/2012 Acute, but ill-defined, cerebrovascular disease 01/03/2012 Generalized osteoarthritis 04/14/2008 Degeneration of lumbosacral intervertebral disc 04/14/2008 documented as of this encounter (statuses as of 03/20/2024) Resolved Problems Problem Noted Date Diagnosed Date Resolved Date Asthma in remission 08/28/2022 08/29/19 Asthma, mild persistent 08/28/2022/12/2022 Asthma, severe persistent 08/28/2022 Stem cell transplant candidate 08/17/2019 09/02/2019 documented as of this encounter (statuses as of 03/20/2024) Immunizations Name Administration Dates Next Due COVID-19 mRNA, LNP-s, No Pre serve, 2-Dose Series (Live Shuttle) 01/17/2021,08/05/2020,07/08/2020 COVID-19, LNP-s, No Preserve , Bryant-sucrose, Ages 12+ (Live Shuttle) 09/26/2021 COVID-19, MRNA-LNP, PF, 30 M CG/0.3 [...] Assigned at Male 12/01/2021 8:49 PM EDT Gender Identity Male 12/01/2021 8:49 PM EDT Sexual Orientation Straight 12/01/2021 8: 49 PM EDT Job Start Date Occupation Industry Not on file Not on file Not on file documented as of this encounter Functional Status Functional Status Response Date of Assess ment Are you deaf or do you have serious difficulty h earing? No 08/31/2019 Are you blind or do you have serious difficulty seeing, even when wearing glasses? No 08/31/2019 Do you have serious difficul ty walking or climbing stairs? (5 years old or older) No 08/31/2019 Do you have difficulty dress ing or bathing? (5 years old or older) No 08/31/2019 Because of a physical, menta l, or emotional condition, do you have difficulty doing errands alone such as visiting a doctor s office or shopping? (15 years old or older) No 08/31/19 20 Cognitive Status Response Date of Assessm ent Because of a physical, menta l, or emotional condition, do you have serious difficulty concentrating, remembering, or making decisions? (5 years old or older) No 08/31/2019 documented as of this encounter Nursing Notes * Abril Ayers [...] AM EST Laboratory Lab Mobile Phlebotomy [facility] [address] [place] [address] Mvmg, Gml Mobile Home Draw [address] [place] [address] 03/26/2024 8:00 AM EST Hem/Onc Treatment Hematology/Oncology Treatment, [place] [address] [place] [phone] Park, Chair 5 Hem Onc Scenery [address] [place] [address] 04/01/2024 7:00 AM EST Laboratory Lab Mobile Phlebotomy [facility] [address] [place] [address] Mvmg, Gml Mobile Home Draw [address] [place] [address] 04/08/2024 7:05 AM EST Laboratory Lab Mobile Phlebotomy [facility] [address] [place] [address] Mvmg, Gml Mobile Home Draw [address] [place] [address] 04/15/2024 7:05 AM EST Laboratory Lab Mobile Phlebotomy [facility] [address] [place] [address] Mvmg, Gml Mobile Home Draw [address] [place] [address] 04/22/2024 7:05 AM EST Laboratory Lab Mobile Phlebotomy [facility] [address] [place] [address] Mvmg, Gml Mobile Home Draw [address] [place] [address] 04/29/2024 7:05 AM EST Laboratory Lab Mobile Phlebotomy [facility] [address] [place] [address] Mvmg, Gml Mobile Home Draw [address] [place] [address] 05/05/2024 7:05 AM EST Laboratory Lab Mobile Phlebotomy [facility] [address] [place] [address] Mvmg, Gml Mobile Home Draw [address] [place] [address] 06/04/2024 11:00 AM EST Office Visit Hematology/Oncology [facility] [place] [address] [place] [phone] Morgan Vásquez MD [address] [place] [address] 07/28/2024 7:00 AM EDT Office Visit Neurology [facility] [address] [place] [address] Sandrita Pineda [address] [place] [address] 09/02/2024 8:20 AM EDT Office Visit Pulmonary Medicine, [facility] [address] [place] [address] Ish Caba MD [address] [place] [address] 05/03/2025 7:40 AM EST Office Visit Dermatology [address] [place] [address] Albina Romo PA-C [address] [place] [address] [place] [address] Health Maintenance Due Date Last Done Comments [...] this encounter Medical Devices Implanted Type Area Cylinder Valve Repairer Device Identifier Shelf Expiration Date Model / Serial / Lot Mesh Plug Xlarge [id number] - [id number] Implanted:Qty: 1 on 12/09/2020 by John Zaragoza MD at OR [facility] Left: Groin CR BARD : DAVOL 05/09/2023 [id number] / / [id number] documented as of this encounter Visit Diagnoses [...] Maximum of 4 grams (4000 mg) per day. Given 03/05/2024 11:30 AM EDT 650 mg [...] ONCE, 1 dose, On Lilibeth 03/05/24 at 1145 Start Infusion 03/05/2024 11:46 AM EDT 740 mg 517.4 mL/hr Daratumumab-hyaluronida se-fihj (Darzalex Faspro) 1800 mg-57392 units/ 15 ml subcut inj 15 mL, Subcutaneous, ONCE, On Lilibeth 03/05/24 at 1245, For 1 dose, Inject subcutanteously into abdomen over 3 to 5 minutes Given 03/05/2024 11:46 AM EDT 15 mL Abdomen Right Lower dexAMETHasone (Decadron) tab 40 mg 40 mg, Oral, ONCE, On Lilibeth 03/05/24 at 1145, For 1 dose Given 03/05/2024 11:30 AM EDT 40 mg diphenhydrAMINE (Benadryl) cap 50 mg 50 mg, Oral, ONCE, On Lilibeth 03/05/24 at 1145, For 1 dose Given 03/05/2024 11:30 AM EDT 50 mg NSS infusion FOR HYDRATION Intravenous, at 500 mL/hr Administer over 2 Hours, ONCE, 1 dose, On Lilibeth 03/05/24 at 1145 Start Infusion 03/05/2024 11:27 AM EDT 1,000 mL 500 mL/hr NSS infusion FOR HYDRATION Intravenous, at 50 mL/hr Administer over 10 Hours, CONTINUOUS, Starting on Lilibeth 03/05/24 at 1145, Until Lilibeth 03/05/24 at 1527 Start Infusion 03/05/2024 11:23 AM EDT 500 mL 50 mL/hr ondansetron (Zofran) tab 8 mg 8 mg, Oral, ONCE, On Lilibeth 03/05/24 at 1145, For 1 dose Given 03/05/2024 11:30 AM EDT 8 mg [...] Power of Attor coco? No Care Teams Certified Physical Therapist Assistant Relationship Specialty Start Date End Date Michael Collins MD [address] [facility] [place] [address] PCP - General Internal Medicine 03/01/14 documented as of this encounter
--- OUTSIDE RECORDS SUMMARY | 2024-03-26 16:13 | External Medical Summary | Summary of Care ---
Author Name Unknown Organization [facility] Address [address] [facility] [place] [address] Phone [phone] Care Team Providers Care Jewelry Sales Representative Name Role Phone Michael Collins MD Primary Care Provi zehra Reason for Visit * Reason Comments Chemotherapy C42D8 Cytoxan * Episode Based Medications (Routine) - Authorized Specialty Diagnoses / Procedures Referred By Contac t Referred To Contact Diagnoses Multiple myeloma not having achieved remission (HCC) Procedures [place] DARATUMUMAB, HYALURONIDASE [place] INJ, CYCLOPHOSPHAMIDE, NOS [place] INJ CYCLOPHOSPHAMD AUROMEDIC Morgan Vásquez MD [address] [place] [address] Anc Hem/Onc Amena You DEPT CLOSED - 03/26/23 [address] [place] [phone] Referral ID Status Reason Start Date Expiration Date V isits Requested Visits Authorized [id number] Authorized 05/28/2022 05/12/2099 99 99 Encounter Details Date Type Department Care Team (Latest Contact Info) Description 03/12/2024 8:30 AM EDT Hem/Onc Treatment Hematology/Oncolog y Treatment, [facility] [address] [place] [address] Kenyatta, Chair 11 Hem Onc Scen[address] [place] [address] Multiple myeloma not having achieved remission (HCC)*; Encounter for antineoplastic chemotherapy Allergies No known active allergiesdocumented as of this encounter (statuses as of 03/19/2024) Medications Medication Sig Dispensed Refills Start Date End Date Status THEOPHYLLINE ER 450 MG PO BN40Vdwwvdzwhyz:2 tablet at bedtime Take by mouth. Indications: 2 tablet at bedtime Active B COMPLEX FORMULA 1 PO TABS Take by mouth. Active MULTIVITAMINS PO CAPS 1 daily Active FOLIC ACID 1 MG PO TABS Take by mouth daily. Active METOPROLOL XL TBCR 50 MG OR 1 tab daily 05/25/2014 Active hydrochlorothiazid e (HYDRODIURIL) 25 MG Tablet Take 1 Tablet by mouth in the morning. 1 tab daily . 5 02/22/2015 Active losartan (COZAAR) 50 MG Tablet Take 1 Tablet by mouth in the morning. 1 tab daily. 5 02/22/2015 Active VENTOLIN HFA 108 (90 BASE) MCG/ACT inhaler As needed 02/22/2015 Active omega-3 1000 MG CAPS Take by mouth. Active Multiple Vitamins-Minerals ([facility] IMMUNITY SUPPORT) CHEW Take by [...] Tablet by mouth in the morning. Active Diphenoxylate-Atro pine 2.5-0.025 MG Oral Tablet (Lomotil)Indicatio ns:Multiple myeloma in remission (HCC),Diarrhea, unspecified type TAKE 1 TABLET BY MOUTH 4 TIMES A DAY NEEDED FOR DIARRHEA 60 Tab 02/07/2021 Active Sildenafil Citrate 100 MG Oral Tablet 03/29/2021 Active Clobetasol Propionate 0.05 % External Ointment (Temovate)Indicati ons:Skin rash Apply topically to affected area 2 times a day . 30 g 2 03/01/2022 Active B Complex Formula 1 (Lipotrop) Oral Tablet Active Levalbuterol HCl 1.25 MG/3ML Inhalation Nebulization Solution (Xopenex) INHALE CONTENTS OF 1 VIAL (3ML) EVERY 6 HOURS 05/31/2022 Active oxygen IN GAS Administer 2 L/min(Oxygen) into nostril at bedtime. PATIENT INFORMATION: Kris Galvin [address] [place] [address] [employer]: [employer]Aresh[employer] ORDER: Please start nocturnal oxygen via nasal [...] (electronically signed) Ish Caba MD Pulmonary Medicine, [address] [address] [place] [facility] Medical License Number: [id number] 1 Each 09/21/2022 Active metFORMIN HCl ER [...] 04/29/2023 Active Acyclovir 800 MG Oral Tablet (Zovirax)Indicatio ns:Multiple myeloma not having achieved remission (HCC),History of autologous stem cell transplant (HCC) TAKE 1 TABLET BY MOUTH TWICE A DAY 180 Tablet 3 09/16/2023 Active DULoxetine HCl 60 MG Oral Capsule Delayed Release Particles (Cymbalta) Take 1 Capsule by mouth in the morning and 1 Capsule before bedtime. 180 Capsule 1 09/30/2023 Active Prochlorperazine Maleate 10 MG Oral Tablet (Compazine)Indicat ions:Multiple myeloma in remission (HCC) Take 1 Tablet by mouth every 6 hours as needed for Nausea. 60 Tablet 5 10/09/2023 Active metFORMIN HCl ER 500 MG Oral Tablet Extended Release 24 Hour (Glucophage XR) Take 1 Tablet by mouth in the morning and 1 Tablet before bedtime. 10/01/2023 Active Ondansetron HCl 8 MG Oral Tablet (Zofran)Indication s:Multiple myeloma (HCC) TAKE 1 TABLET BY MOUTH EVERY 8 HOURS NEEDED FOR NAUSEA 90 Tablet 1 01/15/2024 Active Pregabalin 25 MG Oral Capsule (Lyrica) TAKE 1 CAPSULE BY MOUTH IN THE MORNING AND IN THE EVENING 60 Capsule 4 02/12/2024 Active dexAMETHasone 4 MG Oral Tablet (Decadron)Indicati ons:Multiple myeloma not having achieved remission (HCC) Take 10 tablets once a week on weeks without Darzalex. Take 5 tablets on week of Darzalex injection. 35 Tablet 2 03/09/2024 Active Hospital, Clinic, or Other Facility Administered Medication [...] as of this encounter (statuses as of 03/19/2024) Active Problems Problem Noted Date Diagnosed Date [...] as of this encounter (statuses as of 03/19/2024) Resolved Problems Problem Noted Date Diagnosed Date Resolved Date Asthma in remission 08/28/2022 08/29/19 Asthma, mild persistent 08/28/2022/12/2022 Asthma, severe persistent 08/28/2022 Stem cell transplant candidate 08/17/2019 09/02/2019 documented as of this encounter (statuses as of 03/19/2024) Immunizations Name Administration Dates Next Due COVID-19 mRNA, LNP-s, No Pre serve, 2-Dose Series ([employer]) 01/17/2021,08/05/2020,07/08/2020 COVID-19, LNP-s, No Preserve , Bryant-sucrose, Ages 12+ (LiveRail) 09/26/2021 COVID-19, MRNA-LNP, PF, 30 M CG/0.3 mL, 12 YRS AND ABOVE, IM ([employer]Comirnaty) 02/01/2024 DTaP Dipth/Tet/Acell Pertussis (Infanrix), Peds 02/23/2021,11/11/2020,09/09/2020 [...] Sign Reading Time Taken Comments Blood Pressure 131/88 03/12/2024 8:35 AM EDT Pulse 86 03/12/2024 8:35 AM EDT Temperature 36.1 C (97 F) 03/12/2024 8:35 AM EDT Respiratory Rate 16 03/12/2024 8:35 AM EDT Oxygen Saturation 96% 03/12/2024 8:35 AM EDT Inhaled Oxygen Concentration - - Weight 128.2 kg (282 lb 9.6 oz) 03/12/2024 8:35 AM EDT Height - - Body Mass Index 38.33 10/11/2023 9:26 AM EDT documented in this encounter Functional Status Functional Status Response [...] as of this encounter Nursing Notes * Rosario Gaitan RN - 03/12/2024 11:34 AM EDT Goals: Patient will remain free from injury. Possible barriers to meeting goals: ambulation with IV pole Stability of the patient: Moderately stable - low risk of patient condition declining or worsening Summary regarding today's goals: Met: patient without injury during treatment today. Pt tolerated infusion & hydration well. No complaints. Discharged in stable condition. * Rosario Gaitan RN - 03/12/2024 8:59 AM EDT Chair 12 Pt here for C42D1 Cytoxan. No acute complaints. Reports ongoing abd pain R/T nerve compression fromnew lesions in back. Chemotherapy/Immunotherapy agents: CYTOXAN Consent for chemotherapy drug treatment complete, dated, and signed? yes, date - 10/17/23 Treatment lab parameters met? Yes Has treatment weight changed > than 10%? No Treatment preauthorized? Yes VITALS Filed Vitals: 03/12/24 0835 BP: 131/88 Pulse: 86 Resp: 16 Temp: 36.1 C (97 F) TempSrc: Tympanic SpO2: 96% Weight: 128.2 kg (282 lb 9.6 oz) Urine protein: N/A Patient [...] using the heat function. PRE-TREATMENT ASSESSMENT: NEURO: fatigue:rests as needed CV/RESP: denies symptoms GI/: nausea: takes meds with positive effect OTHER: denies any additional symptoms PAIN: 3-4 pain location : abdomen Safety and Risk for Injury Patient will remain free from injury. Ensure appropriate safety devices are available. Provide and maintain safe environment. documented in this encounter Plan of Treatment Upcoming Encounters Date Type Department Care Team (Late st Contact Info) Description 03/25/2024 7:05 AM EST Laboratory Lab Mobile Phlebotomy [facility] [address] [place] [address] Mvmg, Gml Mobile Home Draw [address] [place] [address] 03/26/2024 8:00 AM EST Hem/Onc Treatment Hematology/Oncology Treatment, [place] [address] [place] [phone] Kenyatta, Chair 5 Hem Onc Scenery [address] [place] [address] 04/01/2024 7:00 AM EST Laboratory Lab Mobile Phlebotomy [facility] [address] [place] [address] Mvmg, Gml Mobile Home Draw [address] [place] [address] 04/08/2024 7:05 AM EST Laboratory Lab Mobile Phlebotomy [facility] [address] [place] [address] Mvmg, Gml Mobile Home Draw [address] [place] [address] 04/15/2024 7:05 AM EST Laboratory Lab Mobile Phlebotomy [facility] [address] [place] [address] Mvmg, Gml Mobile Home Draw [address] [place] [address] 04/22/2024 7:05 AM EST Laboratory Lab Mobile Phlebotomy [facility] [address] [place] [address] Mvmg, Gml Mobile Home Draw [address] [facility] [place] [address] 04/29/2024 7:05 AM EST Laboratory Lab Mobile Phlebotomy [facility] [address] [facility] [place], [place] [address] Mvmg, Gml Mobile Home Draw [address] [facility] [place] [address] 05/05/2024 7:05 AM EST Laboratory Lab Mobile Phlebotomy [facility] [address] [facility] [place], [place] [address] Mvmg, Gml Mobile Home Draw [address] [facility] [place], [place] [address] 06/04/2024 11:00 AM EST Office Visit Hematology/Oncology [facility] [phone] Morgan Vásquez MD [address] [facility] [address] 07/28/2024 7:00 AM EDT Office Visit Neurology [facility] 200 [facility] [place], [place] [address] Sandrita Pineda PAYeimyC [address] [place] [id number] 09/02/2024 8:20 AM EDT Office Visit Pulmonary Medicine, [facility] 132 [facility] [place] [phone] Ish Caba MD [address] [place] [address] 05/03/2025 7:40 AM EST Office Visit Dermatology [address] [place] [address] Albina Romo PA-C [address] [place] [address] [place] [address] Health Maintenance Due Date Last Done Comments [...] this encounter Medical Devices Implanted Type Area Wire Mesh Filter Fabricator Device Identifier Shelf Expiration Date Model / Serial / Lot Mesh Plug Xlarge [id number] - [id number] Implanted:Qty: 1 on 12/09/2020 by John Zaragoza MD at OR [facility] Left: Groin CR BARD : DAVOL 05/09/2023 [id number] / / [id number] documented as of this encounter Visit Diagnoses [...] not tolerated., ONCE, 1 dose, On Lilibeth 03/12/24 at 0930 Start Infusion 03/12/2024 9:35 AM EDT 740 mg 517.4 mL/hr dexAMETHasone (Decadron) tab 40 mg 40 mg, Oral, ONCE, On Lilibeth 03/12/24 at 0930, For 1 dose Given 03/12/2024 8:55 AM EDT 40 mg NSS infusion FOR HYDRATION Intravenous, at 500 mL/hr Administer over 2 Hours, ONCE, 1 dose, On Lilibeth 03/12/24 at 0930 Start Infusion 03/12/2024 8:52 AM EDT 1,000 mL 500 mL/hr NSS infusion FOR HYDRATION Intravenous, at 50 mL/hr Administer over 10 Hours, CONTINUOUS, Starting on Lilibeth 03/12/24 at 0930, Until Lilibeth 03/12/24 at 1537 Start Infusion 03/12/2024 8:49 AM EDT 500 mL 50 mL/hr ondansetron (Zofran) tab 8 mg 8 mg, Oral, ONCE, On Lilibeth 03/12/24 at 0930, For 1 dose Given 03/12/2024 8:54 AM EDT 8 mg documented in this [...] Power of Attor coco? No Care Teams Jewelry Sales Representative Relationship Specialty Start Date End Date Michael Collins MD [address] [facility] [place] [address] PCP - General Internal Medicine 03/01/14 documented as of this encounter
--- OUTSIDE RECORDS SUMMARY | 2024-03-26 16:13 | External Medical Summary | Summary of Care ---
Author Name Unknown Organization [facility] Address [address] [facility] [place] [address] Phone [phone] Care Team Providers Care Manager Msw Name Role Phone Michael Collins MD Primary Care Provi zehra Reason for Visit * Reason Comments Chemotherapy C42D8 Cytoxan * Episode Based Medications (Routine) - Authorized Specialty Diagnoses / Procedures Referred By Contac t Referred To Contact Diagnoses Multiple myeloma not having achieved remission (HCC) Procedures CT DARATUMUMAB, HYALURONIDASE CT INJ, CYCLOPHOSPHAMIDE, NOS CT INJ CYCLOPHOSPHAMD AUROMEDIC Mrogan Vásquez MD [address] [place] [address] Anc Hem/Onc Amena You DEPT CLOSED - 03/26/23 [address] [place] [phone] Referral ID Status Reason Start Date Expiration Date V isits Requested Visits Authorized [id number] Authorized 05/28/2022 05/12/2099 99 99 Encounter Details Date Type Department Care Team (Latest Contact Info) Description 03/12/2024 8:30 AM EDT Hem/Onc Treatment Hematology/Oncolog y Treatment, [place] [address] [place] [address] Kenyatta, Chair 11 Hem Onc Scenery [address] [place] [address] Multiple myeloma not having achieved remission (HCC)*; Encounter for antineoplastic chemotherapy Allergies No known active allergiesdocumented as of this encounter (statuses as of 03/19/2024) Medications Medication Sig Dispensed Refills Start Date End Date Status THEOPHYLLINE ER 450 MG PO PM04Mbyotwobhig:2 tablet at bedtime Take by mouth. Indications: [...] CAPS Take by mouth. Active Multiple Vitamins-Minerals ([facility] IMMUNITY SUPPORT) CHEW Take by mouth. Active [...] at bedtime. PATIENT INFORMATION: Kris Galvin [address] [place] [address] [employer]: [employer] Render/VISEO ORDER: Please start nocturnal oxygen via nasal [...] (electronically signed) Ish Caba MD Pulmonary Medicine, [address] [address] [place] [facility] Medical License Number: [id number] 1 Each 09/21/2022 Active metFORMIN HCl ER [...] mRNA, LNP-s, No Pre serve, 2-Dose Series ([employer]le) 01/17/2021,08/05/2020,07/08/2020 COVID-19, LNP-s, No Preserve , Bryant-sucrose, Ages 12+ (eCircle) 09/26/2021 COVID-19, MRNA-LNP, PF, 30 M CG/0.3 mL, 12 YRS AND ABOVE, IM ([employer]-Comirnaty) 02/01/2024 DTaP Dipth/Tet/Acell Pertussis (Infanrix), Peds 02/23/2021,11/11/2020,09/09/2020 [...] EST Laboratory Lab Mobile Phlebotomy [facility] [address] [place] [address] Mvmg, Gml Mobile Home Draw [address] [place] [address] 03/26/2024 8:00 AM EST Hem/Onc Treatment Hematology/Oncology Treatment, [place] [address] [place] [phone] Kenyatta, Chair 5 Hem Onc Scenery [address] [place] [address] 04/01/2024 7:00 AM EST Laboratory Lab Mobile Phlebotomy [facility] [address] [place] [address] Mvmg, Gml Mobile Home Draw [address] [place] [address] 04/08/2024 7:05 AM EST Laboratory Lab Mobile Phlebotomy [facility] [address] [place] [address] Mvmg, Gml Mobile Home Draw [address] [place] [address] 04/15/2024 7:05 AM EST Laboratory Lab Mobile Phlebotomy [facility] [address] [place] [address] Mvmg, Gml Mobile Home Draw [address] [place] [address] 04/22/2024 7:05 AM EST Laboratory Lab Mobile Phlebotomy [facility] [address] [place] [address] Mvmg, Gml Mobile Home Draw 2520 [facility] [place] [address] 04/29/2024 7:05 AM EST Laboratory Lab Mobile Phlebotomy [facility] [address] [facility] [place], [place] [address] Mvmg, Gml Mobile Home Draw [address] [facility] [place] [address] 05/05/2024 7:05 AM EST Laboratory Lab Mobile Phlebotomy [facility] [address] [facility] [place], [place] [address] Mvmg, Gml Mobile Home Draw 25[address] [facility] [place], [place] [address] 06/04/2024 11:00 AM EST Office Visit Hematology/Oncology [facility] [phone] Morgan V[facility] MD [address] [facility] [address] 07/28/2024 7:00 AM EDT Office Visit Neurology [facility] 200 [facility] [place], [place] [address] Sandrita Pineda PAYeimyC [address] [place] [id number] 09/02/2024 8:20 AM EDT Office Visit Pulmonary Medicine, [facility] 132 [facility] [place] [id number] Ish Caba MD [address] [place] [address] 05/03/2025 7:40 AM EST Office Visit Dermatology [address] [place] [address] Albina Romo PA-C [address] [place] [address] [place] [address] Health Maintenance Due Date Last Done Comments [...] this encounter Medical Devices Implanted Type Area Robotics Testing Technician Device Identifier Shelf Expiration Date Model / Serial / Lot Mesh Plug Xlarge [id number] - [id number] Implanted:Qty: 1 on 12/09/2020 by John Zaragoza MD at OR [facility] Left: Groin CR BARD : DAVOL 05/09/2023 [id number] / / [id number] documented as of this encounter Visit Diagnoses [...] Power of Attor coco? No Care Teams Manager Msw Relationship Specialty Start Date End Date Michael Collins MD 141 [facility] [place] [address] PCP - General Internal Medicine 03/01/14 documented as of this encounter
--- OUTSIDE RECORDS SUMMARY | 2024-03-26 16:13 | External Medical Summary | Summary of Care ---
Author Name Unknown Organization [facility] Address [address] [facility] [place] [address] Phone [phone] Care Team Providers Care Office Specialist Name Role Phone Michael Collins MD Primary [...] Morgan Vásquez MD [address] [place] [address] Anc Hem/Onc Amena You DEPT CLOSED - 03/26/23 [address] [place] [phone] Referral ID Status Reason Start Date Expiration Date V isits Requested Visits Authorized [id number] Authorized 05/28/2022 05/12/2099 99 99 Encounter Details Date Type Department Care Team (Latest Contact Info) Description 03/12/2024 8:30 AM EDT Hem/Onc Treatment Hematology/Oncolog y Treatment, [place] [address] [place] [address] Kenyatta, Chair 11 Hem Onc Scenery [address] [place] [address] Multiple myeloma not having achieved remission (HCC)*; Encounter for antineoplastic chemotherapy Allergies No known active allergiesdocumented as of this encounter (statuses as of 03/19/2024) Medications Medication Sig Dispensed Refills Start Date End Date Status THEOPHYLLINE ER 450 MG PO NP30Eeyrbbavirs:2 tablet at bedtime Take by mouth. Indications: [...] CAPS Take by mouth. Active Multiple Vitamins-Minerals ([facility] IMMUNITY SUPPORT) CHEW Take by mouth. [...] at bedtime. PATIENT INFORMATION: Kris Galvin [address] [place] [address] [employer]: [email or web address] ORDER: Please start nocturnal oxygen via nasal [...] (electronically signed) Ish Caba MD Pulmonary Medicine, [address] [address] [place] [facility] Medical License Number: [id number] 1 Each 09/21/2022 Active metFORMIN HCl ER [...] mRNA, LNP-s, No Pre serve, 2-Dose Series ([employer]) 01/17/2021,08/05/2020,07/08/2020 COVID-19, LNP-s, No Preserve , Bryant-sucrose, Ages 12+ (Group[employer]ox) 09/26/2021 COVID-19, MRNA-LNP, PF, 30 M CG/0.3 mL, 12 YRS AND ABOVE, IM ([employer]-Comirnaty) 02/01/2024 DTaP Dipth/Tet/Acell Pertussis (Infanrix), Peds 02/23/2021,11/11/2020,09/09/2020 [...] EST Laboratory Lab Mobile Phlebotomy [facility] [address] [employer] [address] [place] [address] Mvmg, Gml Mobile Home Draw [address] [place] [address] 03/26/2024 8:00 AM EST Hem/Onc Treatment Hematology/Oncology Treatment, [place] [address] [place] [phone] Kenyatta, Chair 5 Hem Onc Scenery [address] [place] [address] 04/01/2024 7:00 AM EST Laboratory Lab Mobile Phlebotomy [facility] [address] [place] [address] Mvmg, Gml Mobile Home Draw [address] [place] [address] 04/08/2024 7:05 AM EST Laboratory Lab Mobile Phlebotomy [facility] [address] [place] [address] Mvmg, Gml Mobile Home Draw [address] [place] [address] 04/15/2024 7:05 AM EST Laboratory Lab Mobile Phlebotomy [facility] [address] [place] [address] Mvmg, Gml Mobile Home Draw [address] [place] [address] 04/22/2024 7:05 AM EST Laboratory Lab Mobile Phlebotomy [facility] [address] [place] [address] Mvmg, Gml Mobile Home Draw 2520 [facility] [place] [address] 04/29/2024 7:05 AM EST Laboratory Lab Mobile Phlebotomy [facility] 25[address] [facility] [place], [place] [address] Mvmg, Gml Mobile Home Draw 25[address] [facility] [place] [address] 05/05/2024 7:05 AM EST Laboratory Lab Mobile Phlebotomy [facility] [address] [facility] [place], [place] [address] Mvmg, Gml Mobile Home Draw 25[address] [facility] [place], [place] [address] 06/04/2024 11:00 AM EST Office Visit Hematology/On[facility] [phone] Morgan [facility] [address] 07/28/2024 7:00 AM EDT Office Visit Neurology [facility] 200 [facility] [place], [place] [address] Sandrita Pineda PAYeimyC [address] [place] [id number] 09/02/2024 8:20 AM EDT Office Visit Pulmonary Medicine, [facility] 132 [facility] [place] [phone] Ish Caba MD [address] [place] [address] 05/03/2025 7:40 AM EST Office Visit Dermatology [address] [place] [address] Albina Romo PA-C [address] [place] [address] [place] [address] Health Maintenance Due Date Last Done Comments [...] this encounter Medical Devices Implanted Type Area Local Government Legislator Device Identifier Shelf Expiration Date Model / Serial / Lot Mesh Plug Xlarge [id number] - [id number] Implanted:Qty: 1 on 12/09/2020 by John Zaragoza MD at OR [facility] Left: Groin CR BARD : DAVOL 05/09/2023 [id number] / / [id number] documented as of this encounter Visit Diagnoses [...] Power of Attor coco? No Care Teams Office Specialist Relationship Specialty Start Date End Date Michael Collins MD 141 [facility] [place] [address] PCP - General Internal Medicine 03/01/14 documented as of this encounter
--- OUTSIDE RECORDS SUMMARY | 2024-03-26 16:13 | External Medical Summary | Summary of Care ---
Author Name Unknown Organization [facility] Address [address] [facility] [place] [address] Phone [phone] Care Team Providers Care Wiener Packer Name Role Phone Michael Collins MD Primary Care Provi zehra Reason for Visit * Reason Comments Chemotherapy C42, D 1 Cytoxan and Darzalax Faspro * Episode Based Medications (Routine) - Authorized Specialty Diagnoses / Procedures Referred By Contjuanito t Referred To Contact Diagnoses Multiple myeloma not having achieved remission (HCC) Procedures [place] DARATUMUMAB, HYALURONIDASE SC INJ, CYCLOPHOSPHAMIDE, NOS [place] INJ CYCLOPHOSPHAMD AUROMEDIC Morgan Vásquez MD [address] [place] [address] Anc Hem/Onc Amena You DEPT CLOSED - 03/26/[address] [place] [address] Referral ID Status Reason Start Date Expiration Date V isits Requested Visits Authorized [id number] Authorized 05/28/2022 05/12/2099 99 99 Encounter Details Date Type Department Care Team (Latest Contact Info) Description 03/05/2024 11:15 AM EDT Hem/Onc Treatment Hematology/Oncolog y Treatment, [place] [address] [place] [address] Kenyatta, Chair 3 Hem Onc Scenery [address] [address] Multiple myeloma not having achieved remission (HCC)*; Encounter for antineoplastic chemotherapy Allergies No known active allergiesdocumented as of this encounter (statuses as of 03/20/2024) Medications Medication Sig Dispensed Refills Start Date End Date Status THEOPHYLLINE ER 450 MG PO [id number]:2 tablet at bedtime Take by mouth. Indications: [...] at bedtime. PATIENT INFORMATION: Kris Galvin [address] [place] [address] [employer]: [employer] ORDER: Please start nocturnal oxygen via nasal [...] (electronically signed) Ish Caba MD Pulmonary Medicine, [address] [place] [address] [place] [facility] Medical License Number: [id number] 1 Each 09/21/2022 Active metFORMIN HCl ER [...] mRNA, LNP-s, No Pre serve, 2-Dose Series ([employer]) 01/17/2021,08/05/2020,07/08/2020 COVID-19, LNP-s, No Preserve , Bryant-sucrose, Ages 12+ ([employer]) 09/26/2021 COVID-19, MRNA-LNP, PF, 30 M CG/0.3 [...] AM EST Laboratory Lab [facility] [address] [place] [address] Mvmg, Gml [facility] Home Draw [address] [place] [address] 03/26/2024 8:00 AM EST Hem/Onc Treatment Hematology/Oncology Treatment, [place] [address] [place] [phone] Park, Chair 5 Hem Onc Scenery 200 [facility] [place] [address] 04/01/2024 7:00 AM EST Laboratory Lab [facility] [address] [place] [address] Mvmg, Gml Mobile Home Draw [address] [place] [address] 04/08/2024 7:05 AM EST Laboratory Lab [facility] Ph[facility] [address] [place] [address] Mvmg, Gml Mobile Home Draw 2520 [place] [address] 04/15/2024 7:05 AM EST Laboratory Lab [facility] Ph[facility] [address] [place] [address] Mvmg, Gml Mobile Home Draw [address] [place] [address] 04/22/2024 7:05 AM EST Laboratory Lab Mobile Phlebot[facility] [address] [place] [address] Mvmg, Gml Mobile Home Draw [address] [facility] [place] [address] 04/29/2024 7:05 AM EST Laboratory Lab Mobile Phlebotomy [facility] [address] [place] [address] Mvmg, Gml Mobile Home Draw [address] [place] [address] 05/05/2024 7:05 AM EST Laboratory Lab Mobile Phlebotomy [facility] [address] [place] [address] Mvmg, Gml Mobile Home Draw [address] [facility] [place] [address] 06/04/2024 11:00 AM EST Office Visit Hematology/Oncology [facility] [place] 200 [facility] [place] [phone] Morgan Vásquez MD [address] [place] [address] 07/28/2024 7:00 AM EDT Office Visit Neurology [facility] [address] [place] [address] Sandrita Pineda [place] [address] [place] [address] 09/02/2024 8:20 AM EDT Office Visit Pulmonary Medicine, [facility] [address] [place] [address] Ish Caba MD [address] [place] [address] 05/03/2025 7:40 AM EST Office Visit Dermatology [address] [place] [address] Albina Romo PA-C [address] [place] [address] [place] [address] Health Maintenance Due Date Last Done Comments [...] this encounter Medical Devices Implanted Type Area Microeconomics Professor Device Identifier Shelf Expiration Date Model / Serial / Lot Mesh Plug Xlarge [id number] - [id number] Implanted:Qty: 1 on 12/09/2020 by John Zaragoza MD at OR [facility] Left: Groin CR BARD : DAVOL 05/09/2023 [id number] / / [id number] documented as of this encounter Visit Diagnoses [...] 517.4 mL/hr Daratumumab-hyaluronida se-fihj (Darzalex Faspro) 1800 mg-44745 units/ 15 ml subcut inj 15 mL, [...] Power of Attor coco? No Care Teams Wiener Packer Relationship Specialty Start Date End Date Michael Collins MD [address] [facility] [place] [address] PCP - General Internal Medicine 03/01/14 documented as of this encounter
--- OUTSIDE RECORDS SUMMARY | 2024-03-26 16:13 | External Medical Summary | Summary of Care ---
Author Name Unknown Organization [facility] Address [address] [facility] [place] [address] Phone [phone] Care Team Providers Care White Shoe Examiner Name Role Phone Michael Collins MD Primary Care Provi zehra Reason for Visit * Reason Comments Chemotherapy C42, D 1 Cytoxan and Darzalax Faspro * Episode Based Medications (Routine) - Authorized Specialty Diagnoses / Procedures Referred By Contjuanito t Referred To Contact Diagnoses Multiple myeloma not having achieved remission (HCC) Procedures [place] DARATUMUMAB, HYALURONIDASE [place] INJ, CYCLOPHOSPHAMIDE, NOS [place] INJ CYCLOPHOSPHAMD AUROMEDIC Morgan Vásquez MD [address] [place] [address] Phone: tel: fax: Hematology/Oncology Treatment, [place] DEPT CLOSED - 03/26/[address] [address] Phone: tel: fax: Referral ID Status Reason Start Date Expiration Date V isits Requested Visits Authorized [id number] Authorized 05/28/2022 05/12/2099 99 99 Encounter Details Date Type Department Care Team (Latest Contact Info) Description 03/05/2024 11:15 AM EDT Hem/Onc Treatment Hematology/Oncolog y Treatment, [place] [address] [place] [address] Kenyatta, Chair 3 Hem Onc Scenery [address] [place] [address] Multiple myeloma not having achieved remission (HCC)*; Encounter for antineoplastic chemotherapy Allergies No known active allergiesdocumented as of this encounter (statuses as of 03/23/2024) Medications THEOPHYLLINE ER 450 MG PO [id number]: 2 tablet at bedtime Take by mouth. [...] mouth. Activ e Multiple Vitamins-Mineral s ([facility] IMMUNITY SUPPORT) CHEW Take by mouth. [...] nostril at bedtime. PATIENT INFORMATION: Kris Sweettania [address] [place] [address] No [employer]: [employer] ORDER: Please start nocturnal oxygen via nasal [...] (electronically signed) Ish Caba MD Pulmonary Medicine, [address] [place] [address] [place] [facility] Medical License Number: [id number] 1 Each 09/22/19 23 Active metFORMIN HCl [...] mRNA, LNP-s, No Pre serve, 2-Dose Series ([employer]) 01/17/2021,08/05/2020,07/08/2020 COVID-19, LNP-s, No Preserve , Bryant-sucrose, [...] EST Laboratory Lab Mobile Phlebotomy [facility] [address] [place], [place] [address] Mvmg, Gml Mobile Home Draw 2520 [facility] [place], [place] [address] 03/26/2024 8:00 AM EST Hem/Onc Treatment Hematology/Oncology Treatment, [place] [address] [place], [place] [phone] Kenyatta, Chair 5 Hem Onc Scenery [address] [place] [address] 04/01/2024 7:00 AM EST Laboratory Lab Mobile Phlebotomy [facility] [address] [place], [place] [address] Mvmg, Gml Mobile Home Draw 2520 [facility] [place], [place] [address] 04/08/2024 7:05 AM EST Laboratory Lab Mobile Phlebotomy [facility] [address] [place], [place] [address] Mvmg, Gml Mobile Home Draw 25[address] [facility] [place] [address] 04/15/2024 7:05 AM EST Laboratory Lab Mobile Phlebotomy [facility] 25[address] [employer] [place] [address] Mvmg, Gml Mobile Home Draw 25[address] Gen [facility] [place] [address] 04/22/2024 7:05 AM EST Laboratory Lab Mobile Phlebotomy [facility] [address] [place] [address] Mvmg, Gml Mobile Home Draw [address] [facility] [place] [address] 04/29/2024 7:05 AM EST Laboratory Lab Mobile Phlebotomy [facility] [address] [facility] [place] [address] Mvmg, Gml Mobile Home Draw 25[address] [facility] [place] [address] 05/05/2024 7:05 AM EST Laboratory Lab Mobile Phlebotomy [facility] [address] [facility] [place] [address] Mvmg, Gml Mobile Home Draw 25[address] [facility] [place] [address] 06/04/2024 11:00 AM EST Office Visit Hematology/Oncology [facility] [address] [place] [phone] Morgan Vásquez MD [address] [place] [address] 07/28/2024 7:00 AM EDT Office Visit Neurology [facility] [address] [place] [address] Sandrita Pineda PAYeimyC 21 [facility] [place] [address] 09/02/2024 8:20 AM EDT Office Visit Pulmonary Medicine, [facility] 132 [facility] [place] [address] Ish [facility] [address] [facility] [address] 05/03/2025 7:40 AM EST Office Visit Dermatology [address] [place] [address] Albina Romo PA-C [address] [place] [address] [place] [address] Health Maintenance Due Date Last Done Comments [...] this encounter Medical Devices Implanted Type Area History Teacher Device Identifier Shelf Expiration Date Model / Serial / Lot Mesh Plug Xlarge [id number] - [id number] Implanted:Qty: 1 on 12/09/2020 by John Zaragoza MD at OR [facility] Left: Groin CR BARD : DAVOL 05/09/2023 [id number] / / [id number] documented as of this encounter Visit Diagnoses [...] 517.4 mL/hr Daratumumab-hyaluronida se-fihj (Darzalex Faspro) 1800 mg-67469 units/ 15 ml subcut inj 15 mL, [...] Power of Attor coco? No Care Teams White Shoe Examiner Relationship Specialty Start Date End Date Michael Collins MD [address] [place] [address] [place] [address] PCP - General Internal Medicine 03/01/14 documented as of this encounter
--- OUTSIDE RECORDS SUMMARY | 2024-03-26 16:13 | External Medical Summary | Summary of Care ---
Author Name Unknown Organization [facility] Address [address] [facility] [address] Phone [phone] Care Team Providers Care Toddler Caregiver Name Role Phone Michael Collins MD Primary Care Provi zehra Reason for Visit * Reason Comments Chemotherapy Cytoxan * Episode Based Medications (Routine) - Authorized Specialty Diagnoses / Procedures Referred By Contac t Referred To Contact Diagnoses Multiple myeloma not having achieved remission (HCC) Procedures [place] DARATUMUMAB, HYALURONIDASE [place] INJ, CYCLOPHOSPHAMIDE, NOS [place] INJ CYCLOPHOSPHAMD AUROMEDIC Morgan Vásquez MD [address] [place] [address] Anc Hem/Onc Amena You DEPT CLOSED - 03/26/23 200 [facility] [place] [address] Referral ID Status Reason Start Date Expiration Date V isits Requested Visits Authorized [id number] Authorized 05/28/2022 05/12/2099 99 99 Encounter Details Date Type Department Care Team (Latest Contact Info) Description 03/19/2024 8:00 AM EST Hem/Onc Treatment Hematology/Oncolog y Treatment, [place] [address] [place] [address] Kenyatta, Chair 5 Hem Onc Scenery [address] [place] [address] Multiple myeloma not having achieved remission (HCC)*; Encounter for antineoplastic chemotherapy Allergies No known active allergiesdocumented as of this encounter (statuses as of 03/19/2024) Medications Medication Sig Dispensed Refills Start Date End Date Status THEOPHYLLINE ER 450 MG PO [id number]:2 tablet at bedtime Take by mouth. Indications: [...] (90 BASE) MCG/ACT inhaler As needed 11 02/22/2015 Active omega-3 1000 MG CAPS Take by mouth. Active Multiple Vitamins-Minerals ([facility]MMUN[facility]) CHEW Take by [...] at bedtime. PATIENT INFORMATION: Kris Galvin [address] [place] [address] [employer]: [employer] ORDER: Please start nocturnal oxygen via nasal [...] (electronically signed) Ish Caba MD Pulmonary Medicine, [address] [place] [address] [place] [facility] Medical License Number: [id number] 1 Each 09/21/2022 Active metFORMIN HCl ER [...] mRNA, LNP-s, No Pre serve, 2-Dose Series ([employer]) 01/17/2021,08/05/2020,07/08/2020 COVID-19, LNP-s, No Preserve , Bryant-sucrose, Ages 12+ ([employer]) 09/26/2021 COVID-19, MRNA-LNP, PF, 30 M CG/0.3 mL, 12 YRS AND ABOVE, IM ([facility]) 02/01/2024 DTaP Dipth/Tet/Acell Pertussis ([employer]), Peds 02/23/2021,11/11/2020,09/09/2020 [...] Sign Reading Time Taken Comments Blood Pressure 126/90 03/19/2024 8:08 AM EST Pulse 93 03/19/2024 8:08 AM EST Temperature 36.7 C (98 F) 03/19/2024 8:08 AM EST Respiratory Rate 16 03/19/2024 8:08 AM EST Oxygen Saturation 96% 03/19/2024 8:08 AM EST Inhaled Oxygen Concentration - - Weight 125.5 kg (276 lb 9.6 oz) 03/19/2024 8:08 AM EST Height - - Body Mass Index 37.51 10/11/2023 9:26 AM EDT documented in this [...] as of this encounter Nursing Notes * Brittanie Riggs RN - 03/19/2024 10:56 AM EST Pt completed treatment without issues. IV removed. Goals: Pt will remain free from injury. Possible barriers to meeting goals: pt is a high fall risk Stability of the patient: Moderately stable - low risk of patient condition declining or worsening Summary regarding today's goals: Met: . Pt remained free from injury during treatment today. Discharged in stable condition. * Brittanie Riggs RN - 03/19/2024 8:40 AM EST Chair 10 Chemotherapy/Immunotherapy agents: CYTOXAN Consent for chemotherapy drug treatment complete, dated, and signed? yes, date - 10/17/23 Treatment lab parameters met? Yes Has treatment weight changed > than 10%? No Treatment preauthorized? Yes VITALS Filed Vitals: 03/19/24 0808 BP: 126/90 Pulse: 93 Resp: 16 Temp: 36.7 C (98 F) SpO2: 96% Weight: 125.5 kg (276 lb 9.6 oz) Urine protein: N/A Patient education completed for treatment? Yes Blood transfusion consent signed and complete? NA Return appointment scheduled? Yes Patient had provider visit today? No - If no provider visit must complete Pretreatment Assessment PRE-TREATMENT ASSESSMENT: NEURO: confusion: pt reports feeling intermittent confusion in the last 1-2 weeks, but states he has been experiencing increased anxiety since his recent scans, and anticipating RT treatment and fatigue:ongoing, most significant side effect CV/RESP: denies symptoms GI/: denies symptoms OTHER: denies any additional symptoms PAIN: 1-2 pain location : Pt states he has "pain all over", but most prominently in his lower back. PIV established; NSS Infusing. Safety and Risk for Injury Patient will [...] potential mcclendon while using the heat function. documented in this encounter Plan of Treatment Upcoming Encounters Date Type Department Care Team (Late st Contact Info) Description 03/25/2024 7:05 AM EST Laboratory Lab Mobile Phlebotomy [facility] [address] [place] [address] Mvmg, Gml Mobile Home Draw [address] [place] [address] 03/26/2024 8:00 AM EST Hem/Onc Treatment Hematology/Oncology Treatment, [place] [address] [place], [place] [phone] Kenyatta, Chair 5 Hem Onc Scenery [address] [place], [place] [address] 04/01/2024 7:00 AM EST Laboratory Lab Mobile Phlebotomy [facility] [address] [place], [place] [address] Mvmg, Gml Mobile Home Draw [address] [place], [place] [address] 04/08/2024 7:05 AM EST Laboratory Lab Mobile Phlebotomy [facility] [address] [place], [place] [address] Mvmg, Gml Mobile Home Draw [address] [place], [place] [address] 04/15/2024 7:05 AM EST Laboratory Lab Mobile Phlebotomy [facility] [address] [place] [address] Mvmg, Gml Mobile Home Draw [address] [place], [place] [address] 04/22/2024 7:05 AM EST Laboratory Lab Mobile Phlebotomy [facility] [address] [place] [address] Mvmg, Gml Mobile Home Draw 2520 [facility] [place], [place] [address] 04/29/2024 7:05 AM EST Laboratory Lab Mobile Phlebotomy [facility] [address] [facility] [place] [address] Mvmg, Gml Mobile Home Draw 2520 [facility] [place] [address] 05/05/2024 7:05 AM EST Laboratory Lab Mobile Phlebotomy [facility] 25[address] [facility] [place] [address] Mvmg, Gml Mobile Home Draw 2520 [facility] [place], [place] [address] 06/04/2024 11:00 AM EST Office Visit Hematology/Oncology [facility] 200 [facility] [place] [phone] Morgan [facility] [address] 07/28/2024 7:00 AM EDT Office Visit Neurology [facility] 200 [facility] [place] [address] Sandrita Pineda PAYeimyC 21 [facility] [place] [address] 09/02/2024 8:20 AM EDT Office Visit Pulmonary Medicine, [facility] 132 [facility] [place] [address] Ish Caba MD [address] [place] [address] 05/03/2025 7:40 AM EST Office Visit Dermatology [address] [place] [address] Albina Romo PA-C [address] [place] [address] [place] [address] Health Maintenance Due Date Last Done Comments [...] this encounter Medical Devices Implanted Type Area Carpenter Supervisor Wooden Ship Device Identifier Shelf Expiration Date Model / Serial / Lot Mesh Plug Xlarge [id number] - [id number] Implanted:Qty: 1 on 12/09/2020 by John Zaragoza MD at OR [facility] Left: Groin CR BARD : DAVOL 05/09/2023 [id number] / / [id number] documented as of this encounter Visit Diagnoses Diagnosis Multiple myeloma not having achieved remission (HCC)- Primary Multiple myeloma, without mention of having achieved remission Encounter for antineoplastic chemotherapy documented in this encounter Administered Medications Active Administered Medications - up to 3 most recent administrations Medication Order MAR Action Action Date Dose Rate Site diphenhydrAMINE (Benadryl) inj 50 mg 50 mg, IV Push, ONCE PRN Other, Hypersensitivity Reaction, Starting on Sat03/19/24 at 0808, Until Sat03/20/24 at 0807, For 24 hours EPINEPHrine 1 MG/ML inj 0.3 mg 0.3 mg, Intramuscular, ONCE PRN Other, Hypersensitivity Reaction or Anaphylaxis, Starting on Lilibeth 03/19/24 at 0808, Until Sat03/20/24 at 0807, For 24 hours hEParin 100 UNIT/ML Lock Flush inj 500 Units 500 Units (5 mL), IV Lock, PRN Other, IV Flush, Starting on Lilibeth 03/19/24 at 0808, Until Sat03/20/24 at 0807, For 24 hours, Do not flush if lock, PICC, or central line not in place; IV infusing or unable to flush. Hydrocortisone Sod Suc (PF) (Solu-Cortef) inj 100 mg 100 mg, IV Push, ONCE PRN Other, Hypersensitivity Reaction, Starting on Lilibeth 03/19/24 at 0808, Until Sat03/20/24 at 0807, For 24 hours meperidine (Demerol) 25 MG/ML inj 25 mg 25 mg, IV Push, ONCE PRN Shivering, Starting on Lilibeth 03/19/24 at 0808, Until Sat03/20/24 at 0807, For 24 hours NSS infusion FOR HYDRATION Intravenous, at 50 mL/hr Administer over 10 Hours, CONTINUOUS, Starting on Lilibeth 03/19/24 at 0845, Until Discontinued Start Infusion 03/19/2024 8:24 AM EST 500 mL 50 mL/hr sodium chloride 0.9 % flush central line 10 mL 10 mL, IV Push, PRN Other, IV Flush, Starting on Lilibeth 03/19/24 at 0808, Until Sat03/20/24 at 0807, For 24 hours, Do not flush if lock, PICC, or central line not in place; IV infusing or unable to flush. Inactive Administered Medications - up to 3 [...] not tolerated., ONCE, 1 dose, On Lilibeth 03/19/24 at 0845 Start Infusion 03/19/2024 9:09 AM EST 740 mg 517.4 mL/hr dexAMETHasone (Decadron) tab 40 mg 40 mg, Oral, ONCE, On Lilibeth 03/19/24 at 0830, For 1 dose Given 03/19/2024 8:30 AM EST 40 mg NSS infusion FOR HYDRATION Intravenous, at 500 mL/hr Administer over 2 Hours, ONCE, 1 dose, On Lilibeth 03/19/24 at 0845 Start Infusion 03/19/2024 8:27 AM EST 1,000 mL 500 mL/hr ondansetron (Zofran) tab 8 mg 8 mg, Oral, ONCE, On Lilibeth 03/19/24 at 0830, For 1 dose Given 03/19/2024 8:31 AM EST 8 mg documented in this encounter Advance [...] Power of Attor coco? No Care Teams Toddler Caregiver Relationship Specialty Start Date End Date Michael Collins MD [address] [place] [address] [place] [address] PCP - General Internal Medicine 03/01/14 documented as of this encounter
--- OUTSIDE RECORDS SUMMARY | 2024-03-26 16:13 | External Medical Summary | Summary of Care ---
Author Name Unknown Organization [facility] Address [address] [facility] [place] [address] Phone [phone] Care Team Providers Care Import Manager Name Role Phone Michael Collins MD Primary [...] Morgan Vásquez MD [address] [place] [address] Anc Hem/Onc Amena You DEPT CLOSED - 03/26/[address] [place] [phone] Referral ID Status Reason Start Date Expiration Date V isits Requested Visits Authorized [id number] Authorized 05/28/2022 05/12/2099 99 99 Encounter Details Date Type Department Care Team (Latest Contact Info) Description 03/05/2024 11:15 AM EDT Hem/Onc Treatment Hematology/Oncolog y Treatment, [place] [address] [place] [address] Kenyatta, Chair 3 Hem Onc Scenery [address] [address] Multiple myeloma not having achieved remission (HCC)*; Encounter for antineoplastic chemotherapy Allergies No known active allergiesdocumented as of this encounter (statuses as of 03/20/2024) Medications Medication Sig Dispensed Refills Start Date End Date Status THEOPHYLLINE ER 450 MG PO BJ66Awjepzskhpu:2 tablet at bedtime Take by mouth. Indications: [...] CAPS Take by mouth. Active Multiple Vitamins-Minerals ([facility] IMMUNITY SUPPORT) CHEW Take by mouth. [...] at bedtime. PATIENT INFORMATION: Kris Galvin [address] [place] [address] [employer]: [employer] ORDER: Please start nocturnal oxygen via [...] (electronically signed) Ish Caba MD Pulmonary Medicine, [address] [place] [address] [place] [facility] Medical License Number: [id number] 1 Each 09/21/2022 Active metFORMIN HCl ER [...] mRNA, LNP-s, No Pre serve, 2-Dose Series (BleepBleeps) 01/17/2021,08/05/2020,07/08/2020 COVID-19, LNP-s, No Preserve , Bryant-sucrose, Ages 12+ (BleepBleeps) 09/26/2021 COVID-19, MRNA-LNP, PF, 30 M CG/0.3 [...] AM EST Laboratory Lab Mobile Phlebotomy [facility] [address] [place] [address] Mvmg, Gml Mobile Home Draw [address] [place] [address] 03/26/2024 8:00 AM EST Hem/Onc Treatment Hematology/Oncology Treatment, [place] [address] [place] [phone] Park, Chair 5 Hem Onc Scenery 200 [facility] [place] [address] 04/01/2024 7:00 AM EST Laboratory Lab Mobile Phlebotomy [facility] [address] [place] [address] Mvmg, Gml Mobile Home Draw [address] [place] [address] 04/08/2024 7:05 AM EST Laboratory Lab Mobile Phlebotomy [facility] [address] [place] [address] Mvmg, Gml Mobile Home Draw 2520 [facility] [place] [address] 04/15/2024 7:05 AM EST Laboratory Lab Mobile Phlebotomy [facility] [address] [place] [address] Mvmg, Gml Mobile Home Draw [address] [place] [address] 04/22/2024 7:05 AM EST Laboratory Lab Mobile Phlebotomy [facility] [address] [place] [address] Mvmg, Gml Mobile Home Draw 2520 Gen [facility] [place] [address] 04/29/2024 7:05 AM EST Laboratory Lab Mobile Phlebotomy [facility] [address] [place] [address] Mvmg, Gml Mobile Home Draw [address] [place] [address] 05/05/2024 7:05 AM EST Laboratory Lab Mobile Phlebotomy [facility] [address] [place] [address] Mvmg, Gml Mobile Home Draw [address] Gen [facility] [place] [address] 06/04/2024 11:00 AM EST Office Visit Hematology/Oncology [facility] [place] 200 [facility] [place] [phone] Morgan Vásquez MD [address] [place] [address] 07/28/2024 7:00 AM EDT Office Visit Neurology [facility] [address] [place] [address] Sandrita Pineda PAManolo [address] [place] [address] 09/02/2024 8:20 AM EDT Office Visit Pulmonary Medicine, [facility] [address] [place] [address] Ish Caba MD [address] [place] [address] 05/03/2025 7:40 AM EST Office Visit Dermatology [address] [place] [address] Albina Romo PA-C [address] [place] [address] [place] [address] Health Maintenance Due Date Last Done Comments [...] this encounter Medical Devices Implanted Type Area Test Specialist Device Identifier Shelf Expiration Date Model / Serial / Lot Mesh Plug Xlarge [id number] - [id number] Implanted:Qty: 1 on 12/09/2020 by John Zaragoza MD at OR [facility] Left: Groin CR BARD : DAVOL 05/09/2023 [id number] / / [id number] documented as of this encounter Visit Diagnoses [...] 517.4 mL/hr Daratumumab-hyaluronida se-fihj (Darzalex Faspro) 1800 mg-79881 units/ 15 ml subcut inj 15 mL, [...] Power of Attor coco? No Care Teams Import Manager Relationship Specialty Start Date End Date Michael Collins MD 141 [facility] [place] [address] PCP - General Internal Medicine 03/01/14 documented as of this encounter
--- OUTSIDE RECORDS SUMMARY | 2024-03-26 16:13 | External Medical Summary | Summary of Care ---
Author Name Unknown Organization [facility] Address [address] [facility] [place] [address] Phone [phone] Care Team Providers Care Waste Hand Name Role Phone Michael Collins MD Primary Care Provi zehra Reason for Visit * Reason Comments Chemotherapy C42D8 Cytoxan * Episode Based Medications (Routine) - Authorized Specialty Diagnoses / Procedures Referred By Contac t Referred To Contact Diagnoses Multiple myeloma not having achieved remission (HCC) Procedures [place] DARATUMUMAB, HYALURONIDASE [place] INJ, CYCLOPHOSPHAMIDE, NOS [place] INJ CYCLOPHOSPHAMD [facility] Morgan Vásquez MD [address] [place] [address] Anc Hem/Onc Amena You DEPT CLOSED - 03/26/23 [address] [place] [phone] Referral ID Status Reason Start Date Expiration Date V isits Requested Visits Authorized [id number] Authorized 05/28/2022 05/12/2099 99 99 Encounter Details Date Type Department Care Team (Latest Contact Info) Description 03/12/2024 8:30 AM EDT Hem/Onc Treatment Hematology/Oncolog y Treatment, [place] [address] [place] [address] Kenyatta, Chair 11 Hem Onc Scenery [address] [place] [address] Multiple myeloma not having achieved remission (HCC)*; Encounter for antineoplastic chemotherapy Allergies No known active allergiesdocumented as of this encounter (statuses as of 03/19/2024) Medications Medication Sig Dispensed Refills Start Date End Date Status THEOPHYLLINE ER 450 MG PO BB43Xzrzirmgauc:2 tablet at bedtime Take by mouth. Indications: [...] CAPS Take by mouth. Active Multiple Vitamins-Minerals ([facility] IMMUNITY SUPPORT) CHEW Take by [...] at bedtime. PATIENT INFORMATION: Kris Galvin [address] [place] [address] [employer]: [employer] ORDER: Please start nocturnal oxygen via nasal [...] (electronically signed) Ish Caba MD Pulmonary Medicine, [address] [address] [place] [facility] Medical License Number: [id number] 1 Each 09/21/2022 Active metFORMIN HCl ER [...] mRNA, LNP-s, No Pre serve, 2-Dose Series ([place]) 01/17/2021,08/05/2020,07/08/2020 COVID-19, LNP-s, No Preserve , Bryant-sucrose, Ages 12+ ([place]) 09/26/2021 COVID-19, MRNA-LNP, PF, 30 M CG/0.3 mL, 12 YRS AND ABOVE, IM (i'mma-Comirnaty) 02/01/2024 DTaP Dipth/Tet/Acell Pertussis (Infanrix), Peds 02/23/2021,11/11/2020,09/09/2020 [...] EST Laboratory Lab Mobile Phlebotomy [facility] [address] [place] [address] Mvmg, Gml Mobile Home Draw [address] [place] [address] 03/26/2024 8:00 AM EST Hem/Onc Treatment Hematology/Oncology Treatment, [place] [address] [place] [phone] Kenyatta, Chair 5 Hem Onc Scenery [address] [place] [address] 04/01/2024 7:00 AM EST Laboratory Lab Mobile Phlebotomy [facility] [address] [place] [address] Mvmg, Gml Mobile Home Draw [address] [place] [address] 04/08/2024 7:05 AM EST Laboratory Lab Mobile Phlebotomy [facility] [address] [place] [address] Mvmg, Gml Mobile Home Draw [address] [place] [address] 04/15/2024 7:05 AM EST Laboratory Lab Mobile Phlebotomy [facility] [address] [place] [address] Mvmg, Gml Mobile Home Draw [address] [place] [address] 04/22/2024 7:05 AM EST Laboratory Lab Mobile Phlebotomy [facility] [address] [place] [address] Mvmg, Gml Mobile Home Draw 2520 [facility] [place] [address] 04/29/2024 7:05 AM EST Laboratory Lab Mobile Phlebotomy [facility] 2520 [facility] [place], [place] [address] Mvmg, Gml Mobile Home Draw 2520 [facility] [place] [address] 05/05/2024 7:05 AM EST Laboratory Lab Mobile Phlebotomy [facility] 2520 [facility] [place], [place] [address] Mvmg, Gml Mobile Home Draw 2520 [facility] [place], [place] [address] 06/04/2024 11:00 AM EST Office Visit Hematology/Oncology [facility] [phone] Morgan [facility] 200 [facility] [address] 07/28/2024 7:00 AM EDT Office Visit Neurology [facility] 200 [facility] [place], [place] [address] Sandrita Pineda PAYeimyC [address] [place] [phone] 09/02/2024 8:20 AM EDT Office Visit Pulmonary Medicine, [facility] 132 [facility] [place] [phone] Ish Caba MD [address] [place] [address] 05/03/2025 7:40 AM EST Office Visit Dermatology [address] [place] [address] Albina Romo PA-C [address] [place] [address] [place] [address] Health Maintenance Due Date Last Done Comments [...] this encounter Medical Devices Implanted Type Area Re Recording Mixer Device Identifier Shelf Expiration Date Model / Serial / Lot Mesh Plug Xlarge [id number] - [id number] Implanted:Qty: 1 on 12/09/2020 by John Zaragoza MD at OR [facility] Left: Groin CR BARD : DAVOL 05/09/2023 [id number] / / [id number] documented as of this encounter Visit Diagnoses [...] Power of Attor coco? No Care Teams Waste Hand Relationship Specialty Start Date End Date Michael Collins MD 141 [facility] [place] [address] PCP - General Internal Medicine 03/01/14 documented as of this encounter
--- OUTSIDE RECORDS SUMMARY | 2024-03-26 16:13 | External Medical Summary | Summary of Care ---
Author Name Unknown Organization [facility] Address [address] [facility] [place] [address] Phone [phone] Care Team Providers Care Gas Refrigerator Servicer Name Role Phone Michael Collins MD Primary Care Provi zehra Reason for Visit * Reason Comments Chemotherapy C42D8 Cytoxan * Episode Based Medications (Routine) - Authorized Specialty Diagnoses / Procedures Referred By Contac t Referred To Contact Diagnoses Multiple myeloma not having achieved remission (HCC) Procedures [place] DARATUMUMAB, HYALURONIDASE [place] INJ, CYCLOPHOSPHAMIDE, NOS [place] INJ CYCLOPHOSPHAMD [facility] Morgan Vásquez MD [address] [place] [address] Anc Hem/Onc Amena You DEPT CLOSED - 03/26/23 [address] [place] [phone] Referral ID Status Reason Start Date Expiration Date V isits Requested Visits Authorized [id number] Authorized 05/28/2022 05/12/2099 99 99 Encounter Details Date Type Department Care Team (Latest Contact Info) Description 03/12/2024 8:30 AM EDT Hem/Onc Treatment Hematology/Oncolog y Treatment, [place] [address] [place] [address] Kenyatta, Chair 11 Hem Onc Scenery [address] [place] [address] Multiple myeloma not having achieved remission (HCC)*; Encounter for antineoplastic chemotherapy Allergies No known active allergiesdocumented as of this encounter (statuses as of 03/19/2024) Medications Medication Sig Dispensed Refills Start Date End Date Status THEOPHYLLINE ER 450 MG PO BO61Hkflvadwuuc:2 tablet at bedtime Take by mouth. Indications: [...] into nostril at bedtime. PATIENT INFORMATION: Kris Glavin [address] [place] [address] [employer]: [employer] ORDER: Please start nocturnal oxygen via nasal [...] (electronically signed) Ish Caba MD Pulmonary Medicine, [address] [address] [place] [facility] Medical License Number: [id number] 1 Each 09/21/2022 Active metFORMIN HCl ER [...] mRNA, LNP-s, No Pre serve, 2-Dose Series ([email or web address].com) 01/17/2021,08/05/2020,07/08/2020 COVID-19, LNP-s, No Preserve , Bryant-sucrose, Ages 12+ ([email or web address]) 09/26/2021 COVID-19, MRNA-LNP, PF, 30 M CG/0.3 mL, 12 YRS AND ABOVE, IM ([employer]-Comirnaty) 02/01/2024 DTaP Dipth/Tet/Acell Pertussis (Infanrix), Peds 02/23/2021,11/11/2020,09/09/2020 [...] Patient instructed on the risk of potential mcclednon while using the heat function. PRE-TREATMENT ASSESSMENT: [...] EST Laboratory Lab Mobile Phlebotomy [facility] [address] [employer] [address] [place] [address] Mvmg, Gml Mobile Home Draw [address] [place] [address] 03/26/2024 8:00 AM EST Hem/Onc Treatment Hematology/Oncology Treatment, [place] [address] [place] [phone] Kenyatta, Chair 5 Hem Onc Scenery [address] [place] [address] 04/01/2024 7:00 AM EST Laboratory Lab Mobile Phlebotomy [facility] [address] [place] [address] Mvmg, Gml Mobile Home Draw [address] [place] [address] 04/08/2024 7:05 AM EST Laboratory Lab Mobile Phlebotomy [facility] [address] [place] [address] Mvmg, Gml Mobile Home Draw [address] [place] [address] 04/15/2024 7:05 AM EST Laboratory Lab Mobile Phlebotomy [facility] [address] [place] [address] Mvmg, Gml Mobile Home Draw [address] [place] [address] 04/22/2024 7:05 AM EST Laboratory Lab Mobile Phlebotomy [facility] [address] [place] [address] Mvmg, Gml Mobile Home Draw 2520 [place] [place] [address] 04/29/2024 7:05 AM EST Laboratory Lab Mobile Phlebotomy [facility] 2520 [facility] [place], [place] [address] Mvmg, Gml Mobile Home Draw 2520 [facility] [place] [address] 05/05/2024 7:05 AM EST Laboratory Lab Mobile Phlebotomy [facility] 2520 [facility] [place], [place] [address] Mvmg, Gml Mobile Home Draw 2520 [facility] [place], [place] [address] 06/04/2024 11:00 AM EST Office Visit Hematology/Oncology [facility] [phone] Morgan V[facility]quez MD [facility] [address] 07/28/2024 7:00 AM EDT Office Visit Neurology [facility] 200 [facility] [place], [place] [address] Sandrita Pineda PAYeimyC [address] [place] [id number] 09/02/2024 8:20 AM EDT Office Visit Pulmonary Medicine, [facility] 132 [facility] [place] [phone] Ish Caba MD [address] [place] [address] 05/03/2025 7:40 AM EST Office Visit Dermatology [address] [place] [address] Albina Romo PA-C [address] [place] [address] [place] [address] Health Maintenance Due Date Last Done Comments [...] this encounter Medical Devices Implanted Type Area Air Traffic Supervisor Device Identifier Shelf Expiration Date Model / Serial / Lot Mesh Plug Xlarge [id number] - [id number] Implanted:Qty: 1 on 12/09/2020 by John Zaragoza MD at OR [facility] Left: Groin CR BARD : DAVOL 05/09/2023 [id number] / / [id number] documented as of this encounter Visit Diagnoses [...] Power of Attor coco? No Care Teams Gas Refrigerator Servicer Relationship Specialty Start Date End Date Michael Collins MD 141 [facility] [place] [address] PCP - General Internal Medicine 03/01/14 documented as of this encounter
--- OUTSIDE RECORDS SUMMARY | 2024-03-26 16:14 | External Medical Summary ---
Author Name Unknown Address Unknown Organization K01:LABORATORY [facility] - [address] [place] [facility] [place] [address] Laboratory Report Ordering Provider Test Date Status KALPESH SERRANO 03/18/2024 07:59:00 Final Observation Date Value Abnormality Reference (Units ) Status SYNC LEUKOCYTES IN BLOOD BY AUTOMATED COUNT 03/18/2024 07:59:00 4.88 4.00-10.80 (K/uL) Final Segs 03/18/2024 07:59:00 81.4 Above high normal 40.0-75.0 (%) Final Lymphs % 03/18/2024 07:59:00 4.7 Below low normal 18.0-42.0 (%) Final Monos 03/18/2024 07:59:00 12.7 Above high normal 1.0-11.0 (%) Final Eosinophils 03/18/2024 07:59:00 0.6 0.0-6.0 (%) Final Basos 03/18/2024 07:59:00 0.2 0.0-2.0 (%) Final Immature Granulocyte, Percent 03/18/2024 07:59:00 0.4 0.0-2.0 (%) Final Absolute Segs 03/18/2024 07:59:00 3.97 1.80-7.70 (K/uL) Final Lymphs, absolute 03/18/2024 07:59:00 0.23 Below low normal 1.00-4.80 (K/ul) Final Monos, Abs 03/18/2024 07:59:00 0.62 0.00-1.10 (K/uL) Final Eos, Abs 03/18/2024 07:59:00 0.03 0.00-0.70 (K/uL) Final Basos, Abs 03/18/2024 07:59:00 0.01 0.00-0.20 (K/uL) Final Immature Granulocytes, Number 03/18/2024 07:59:00 0.02 0.00-0.20 (K/uL) Final Performing Location LABORATORY [facility] - [facility] [address] [address]
--- OUTSIDE RECORDS SUMMARY | 2024-03-26 16:14 | External Medical Summary | Summary of Care ---
Author Name Unknown Organization [facility] Address [address] [facility] [address] Phone [phone] Care Team Providers Care Blow Pit Helper Name Role Phone Michael Collins MD Primary Care Provi zehra Reason for Visit * Reason Onset Date Comments Test Results Imaging Study 03/16/2024 Encounter Details Date Type Department Care Team (Late st Contact Info) Description 03/16/2024 Telephone Hematology/Oncology Treatment, [place] 200 [facility] [place] [address] Morgan Vásquez MD 200 [place] [address] Test Results Imaging Study Allergies No known active allergiesdocumented as of this encounter (statuses as of 03/16/2024) Medications Medication Sig Dispensed Refills Start Date End Date Status THEOPHYLLINE ER 450 MG PO YO83Hxukayxfqpt:2 tablet at bedtime Take by mouth. Indications: [...] nostril at bedtime. PATIENT INFORMATION: Kris Galvin [address] [place] [address] [employer]: [employer] ORDER: Please start nocturnal oxygen via nasal [...] signed) Ish Caba MD Pulmonary Medicine, [address] [place] [address] [place] [facility] Medical License Number: [id number] 1 Each 09/21/2022 Active metFORMIN HCl ER [...] as of this encounter (statuses as of 03/16/2024) Active Problems Problem Noted Date Diagnosed Date [...] as of this encounter (statuses as of 03/16/2024) Resolved Problems Problem Noted Date Diagnosed Date Resolved Date Asthma in remission 08/28/2022 08/29/19 Asthma, mild persistent 08/28/202208/11 Asthma, severe persistent 08/28/2022 Stem cell transplant candidate 08/17/2019 09/02/2019 documented as of this encounter (statuses as of 03/16/2024) Immunizations Name Administration Dates Next Due COVID-19 mRNA, LNP-s, No Pre serve, 2-Dose Series (Pfizer) 01/17/2021,08/05/2020,07/08/2020 COVID-19, LNP-s, No Preserve , Bryant-sucrose, [...] No 08/31/2019 documented as of this encounter Miscellaneous Notes * Telephone Encounter - Reggie Simeon OSA - 03/16/2024 2:57 PM EST Images pushed to [facility] as requested for MRI T Spine 03-13-24. * Telephone Encounter - Eleanor Crawford RN - 03/16/2024 10:50 AM EST Called and spoke to patient/ . Reviewed MRI results, they verbalized understanding. Patient sees rad/onc tomorrow at 1pm. * Telephone Encounter - Eleanor Crawford RN - 03/16/2024 10:29 AM EST MyG sent to patient. Radiology: please push MRI images to [facility]. Thanks! * Telephone Encounter - Eleanor Crawford RN - 03/16/2024 10:27 AM EST ----- Message from Morgan Vásquez MD sent at 03/15/2024 11:24 AM EST ----- MRI of the thoracic spine on 02/11/2024: 1. Multiple foci of marrow signal abnormality throughout the thoracic spine and visualized lower cervical spine compatible with patient's clinical history of multiple myeloma. 2. Pathologic compression fracture of T10 with mild vertebral body height loss. No bony retropulsion or significant spinal stenosis. Will have Radiation Oncology evaluation for T10 lesion. documented in this encounter Plan of Treatment Upcoming Encounters Date Type Department Care Team (Late st Contact Info) Description 03/18/2024 7:05 AM EST Laboratory Lab Mobile Phlebotomy [facility] [address] [place], [place] [address] Mvmg, Gml Mobile Home Draw [address] [place], [place] [address] 03/19/2024 8:00 AM EST Hem/Onc Treatment Hematology/Oncology Treatment, [place] 200 [place] [phone] Kenyatta, Chair [address] [place], [place] [address] 03/25/2024 7:05 AM EST Laboratory Lab Mobile Phlebotomy [facility] [address] [place] [address] Mvmg, Gml Mobile Home Draw [address] [place] [address] 03/26/2024 8:00 AM EST Hem/Onc Treatment Hematology/Oncology Treatment, [place] 200 [place] [phone] Kenyatta, Chair 5 Hem Onc [facility] [address] [place] [address] [place] [address] 04/01/2024 7:00 AM EST Laboratory Lab Mobile Phlebotomy [facility] [address] [place] [address] Mvmg, Gml Mobile Home Draw [address] [place], [place] [address] 04/08/2024 7:05 AM EST Laboratory Lab Mobile Phlebotomy [facility] [address] [place] [address] Mvmg, Gml Mobile Home Draw [address] [place] [address] 04/15/2024 7:05 AM EST Laboratory Lab Mobile Phlebotomy [facility] 25[address] [place] [address] Mvmg, Gml Mobile Home Draw 2520 [place] [address] 04/22/2024 7:05 AM EST Laboratory Lab Mobile Phlebotomy [facility] 25[address] [place] [address] Mvmg, Gml Mobile Home Draw 2520 [place] [address] 04/29/2024 7:05 AM EST Laboratory Lab Mobile Phlebotomy [facility] 25[address] [place] [address] Mvmg, Gml Mobile Home Draw 2520 [place] [address] 05/05/2024 7:05 AM EST Laboratory Lab Mobile Phlebotomy [facility] [address] [place] [address] Mvmg, Gml Mobile Home Draw 2520 [place] [address] 06/04/2024 11:00 AM EST Office Visit Hematology/Oncology [facility] 200 [facility], [place] [phone] Morgan Vásquez MD 200 [facility] [place] [address] 07/28/2024 7:00 AM EDT Office Visit Neurology [facility] 200 [place] [address] Sandrita Pineda PAManolo [address] [place] [address] 09/02/2024 8:20 AM EDT Office Visit Pulmonary Medicine, [facility] 132 [facility] [place] [address] Ish Caba MD [address] [place] [address] 05/03/2025 7:40 AM EST Office Visit Dermatology [address] [place] [address] Albina Romo PA-C [address] [place] [address] [place] [address] Health Maintenance Due Date Last Done Comments Depression Screening 1976 Albumin/Creatinine Ratio 1982 Cologuard 2009 Fecal Occult Blood Test 2009 Sigmoidoscopy 2009 Colonoscopy 03/03/2023 03/03/2018, 03/03/2018 Colorectal Cancer Screening 03/03/2023 Lipid Panel 11/18/2024 11/19/2019, 07/11, 07/29/2009 GFR 03/11/2025 03/11/2024, 02/11, 02/26/2024, Additional history exists Diabetes Screening 03/11/2027 03/11/2024, 1 , 02/26/2024, Additional history exists DTap/Tdap Vaccines (4 - [...] this encounter Medical Devices Implanted Type Area Noodle Catalyst Maker Device Identifier Shelf Expiration Date Model / Serial / Lot Mesh Plug Xlarge [id number] - [id number] Implanted:Qty: 1 on 12/09/2020 by John Zaragoza MD at OR [facility] Left: Groin CR BARD : DAVOL 05/09/2023 [id number] / / [id number] documented as of this encounter Advance Directives [...] 9:52 AM 09/16/2019 4:31 PM This order r eflects the patients wishes and were consensually agreed upon. Question Answer Comments Discussion of Advance Directives occurred with: Patient/Family Does the patient have a Living Will? No Does the patient have Health Care Power of Attor coco? No Care Teams Blow Pit Helper Relationship Specialty Start Date End Date Michael Collins MD [address] [place] [address] [place] [address] PCP - General Internal Medicine 03/01/14 documented as of this encounter
--- OUTSIDE RECORDS SUMMARY | 2024-03-26 16:14 | External Medical Summary | Summary of Care ---
Author Name Unknown Organization [facility] Address [address] [facility] [place] [address] Phone [phone] Care Team Providers Care Associate Merchandise Planner Name Role Phone Michael Collnis MD Primary Care Provi zehra Reason for Visit * Reason Comments Chemotherapy [id number] Cytoxan * Episode Based Medications (Routine) - Authorized Specialty Diagnoses / Procedures Referred By Contac t Referred To Contact Diagnoses Multiple myeloma not having achieved remission (HCC) Procedures MS DARATUMUMAB, HYALURONIDASE MS INJ, CYCLOPHOSPHAMIDE, NOS MS INJ CYCLOPHOSPHAMD AUROMEDIC Morgan Vásquez MD [address] [place] [address] Anc Hem/Onc Amena You DEPT CLOSED - 03/26/23 [address] [place] [address] Referral ID Status Reason Start Date Expiration Date V isits Requested Visits Authorized [id number] Authorized 05/28/2022 05/12/2099 99 99 Encounter Details Date Type Department Care Team (Latest Contact Info) Description 03/12/2024 8:30 AM EDT Hem/Onc Treatment Hematology/Oncolog y Treatment, [facility] [address] [place] [address] Kenyatta, Chair 11 Hem Onc Sc[address] [place] [address] Multiple myeloma not having achieved remission (HCC)*; Encounter for antineoplastic chemotherapy Allergies No known active allergiesdocumented as of this encounter (statuses as of 03/18/2024) Medications Medication Sig Dispensed Refills Start Date End Date Status THEOPHYLLINE ER 450 MG PO AN18Oqpkguitgue:2 tablet at bedtime Take by mouth. Indications: [...] CAPS Take by mouth. Active Multiple Vitamins-Minerals ([facility] IMMUNITY SUPPORT) CHEW Take by mouth. [...] at bedtime. PATIENT INFORMATION: Kris Galvin [address] [place] [address] [employer]: [employer]1DayLater ORDER: Please start nocturnal oxygen via nasal [...] (electronically signed) Ish Caba MD Pulmonary Medicine, [address] [address] [place] [facility] Medical License Number: [id number] 1 Each 09/21/2022 Active metFORMIN HCl ER [...] as of this encounter (statuses as of 03/18/2024) Active Problems Problem Noted Date Diagnosed Date [...] as of this encounter (statuses as of 03/18/2024) Resolved Problems Problem Noted Date Diagnosed Date Resolved Date Asthma in remission 08/28/2022 08/29/19 Asthma, mild persistent 08/28/2022/12/2022 Asthma, severe persistent 08/28/2022 Stem cell transplant candidate 08/17/2019 09/02/2019 documented as of this encounter (statuses as of 03/18/2024) Immunizations Name Administration Dates Next Due COVID-19 mRNA, LNP-s, No Pre serve, 2-Dose Series ([employer]) 01/17/2021,08/05/2020,07/08/2020 COVID-19, LNP-s, No Preserve , Bryant-sucrose, Ages 12+ ([employer]) 09/26/2021 COVID-19, MRNA-LNP, PF, 30 M CG/0.3 mL, 12 YRS AND ABOVE, IM ([employer]Comirnaty) 02/01/2024 DTaP Dipth/Tet/Acell Pertussis (Infanrix), Peds [...] EST Laboratory Lab Mobile Phlebotomy [facility] [address] [place] [address] Mvmg, Gml Mobile Home Draw [address] [place] [address] Arrived 03/19/2024 8:00 AM EST Hem/Onc Treatment Hematology/Oncology Treatment, [address], [place] [phone] Kenyatta, Chair [address] On[address], [place] [address] 03/25/2024 7:05 AM EST Laboratory Lab Mobile Phlebotomy [facility] [address] [place], [place] [address] Mvmg, Gml Mobile Home Draw [address] [place], [place] [address] 03/26/2024 8:00 AM EST Hem/Onc Treatment Hematology/Oncology Treatment, [address], [place] [phone] Kenyatta, Chair 5 Hem Onc [address] [place] [address] 04/01/2024 7:00 AM EST Laboratory Lab Mobile Phlebotomy [facility] [address] [place] [address] Mvmg, Gml Mobile Home Draw [address] [place] [address] 04/08/2024 7:05 AM EST Laboratory Lab Mobile Phlebotomy [facility] [address] [place] [address] Mvmg, Gml Mobile Home Draw [address] [place] [address] 04/15/2024 7:05 AM EST Laboratory Lab Mobile Phlebotomy [facility] [address] [place] [address] Mvmg, Gml Mobile Home Draw [address] [place] [address] 04/22/2024 7:05 AM EST Laboratory Lab Mobile Phlebotomy [facility] [address] [place] [address] Mvmg, Gml Mobile Home Draw [address] [facility] [place] [address] 04/29/2024 7:05 AM EST Laboratory Lab Mobile Phlebotomy [facility] [address] [place] [address] Mvmg, Gml Mobile Home Draw [address] [place] [address] 05/05/2024 7:05 AM EST Laboratory Lab Mobile Phlebotomy [facility] [address] [place] [address] Mvmg, Gml Mobile Home Draw [address] [place] [address] 06/04/2024 11:00 AM EST Office Visit Hematology/Oncology [facility] [address] [place], [place] [phone] Morgan Vásquez MD 200 [facility] [place], [place] [address] 07/28/2024 7:00 AM EDT Office Visit Neurology [facility] [address] [place], [place] [address] Sandrita Pineda PAManolo [address] [place] [address] 09/02/2024 8:20 AM EDT Office Visit Pulmonary Medicine, [facility] [address] [place] [address] Ish Caba MD [address] [place] [address] 05/03/2025 7:40 AM EST Office Visit Dermatology [address] [place] [address] Albina Romo PA-C [address] [place] [address] [place] [address] Health Maintenance Due Date Last Done Comments [...] this encounter Medical Devices Implanted Type Area Lance Crewmember Device Identifier Shelf Expiration Date Model / Serial / Lot Mesh Plug Xlarge [id number] - [id number] Implanted:Qty: 1 on 12/09/2020 by John Zaragoza MD at OR [facility] Left: Groin CR BARD : DAVOL 05/09/2023 [id number] / / [id number] documented as of this encounter Visit Diagnoses [...] Power of Attor coco? No Care Teams Associate Merchandise Planner Relationship Specialty Start Date End Date Michael Collins MD [address] [place] [address] [place] [address] PCP - General Internal Medicine 03/01/14 documented as of this encounter
--- OUTSIDE RECORDS SUMMARY | 2024-03-26 16:14 | External Medical Summary ---
Author Name Unknown Address Unknown Organization K01:LABORATORY [facility] - [address] [place] [address] Laboratory Report Ordering Provider Test Date Status KALPESH SERRANO 03/18/2024 07:59:00 Final Observation Date Value Abnormality Reference (Units ) Status BUN 03/18/2024 07:59:00 21 Above high normal 6-20 (mg/dL) Final Creatinine 03/18/2024 07:59:00 1.2 0.6-1.2 (mg/dL) Final Glomerular filtration rate/1.73 sq M.predicted [Volume Rate/Area] in Serum, Plasma or Blood by Creatinine-based formula (CKD-EPI) 03/18/2024 07:59:00 72 >=60 (mL/min) Final eGFR is calculated based on the CKD-EPI 2020 equation. Sodium 03/18/2024 07:59:00 140 135-146 (m mol/L) Final Potassium 03/18/2024 07:59:00 3.5 3.5-5.1 (m mol/L) Final Cl 03/18/2024 07:59:00 97 Below low normal 98- 107 (mmol/L) Final CO2 03/18/2024 07:59:00 28 22-32 (mmo l/L) Final Anion gap 03/18/2024 07:59:00 15 7-15 (mmol /L) Final Glucose 03/18/2024 07:59:00 98 70-120 (mg /dL) Final Albumin 03/18/2024 07:59:00 4.5 3.8-5.0 (g /dL) Final AST (Aspartate aminotransferase) 03/18/2024 07:59:00 13 10-50 (U/L) Fin al Alk Phos 03/18/2024 07:59:00 101 35-130 (U/ L) Final Bilirubin, Total 03/18/2024 07:59:00 0.6 <=1 .2 (mg/dL) Final Calcium 03/18/2024 07:59:00 9.2 8.4-10.2 ( mg/dL) Final Protein 03/18/2024 07:59:00 6.0 6.0-8.3 (g /dL) Final ALT (Alanine aminotransferase) 03/18/2024 07:59:00 16 10-50 (U/L) Regis figueroa Performing Location LABORATORY [facility] - [facility] N Josselin Peña. [facility] [address]
--- OUTSIDE RECORDS SUMMARY | 2024-03-26 16:14 | External Medical Summary | Summary of Care ---
Author Name Unknown Organization [facility] Address [address] [place] [address] Phone [phone] Care Team Providers Care Electrical High Tension Tester Name Role Phone Michael Collins MD Primary Care Provi zehra Reason for Visit * Reason Onset Date Comments Imaging Records Request 03/16/2024 Encounter Details Date Type Department Care Team (Late st Contact Info) Description 03/16/2024 Telephone Radiology Film File [address] [place] [address] Support, Imaging Radiology [address] [place] [address] Imaging Records Request Allergies No known active allergiesdocumented as of this encounter (statuses as of 03/16/2024) Medications Medication Sig Dispensed Refills Start Date End Date Status THEOPHYLLINE ER 450 MG PO EQ35Bivqosmmznq:2 tablet at bedtime Take by mouth. Indications: [...] CAPS Take by mouth. Active Multiple Vitamins-Minerals ([facility] IMMUNITY SUPPORT) CHEW Take by [...] nostril at bedtime. PATIENT INFORMATION: Kris Galvin [address] [place] [address] [employer]: [employer] ORDER: Please start nocturnal oxygen via nasal [...] (electronically signed) Ish Caba MD Pulmonary Medicine, [address] [place] [address] [place] [facility] Medical License Number: [id number] 1 Each 09/21/2022 Active metFORMIN HCl ER [...] mRNA, LNP-s, No Pre serve, 2-Dose Series (dianboom) 01/17/2021,08/05/2020,07/08/2020 COVID-19, LNP-s, No Preserve , Bryant-sucrose, [...] encounter Miscellaneous Notes * Telephone Encounter - Marley Castro, System Support - 03/16/2024 11:22 AM EST Renu Baron requesting MRI tsp 03/13/24 images be pushed through PACS. [place] Authorization to Release on file. Images pushed to [employer] PACS external connection. documented in this encounter Plan of Treatment Upcoming Encounters Date Type Department Care Team (Late st Contact Info) Description 03/18/2024 7:05 AM EST Laboratory Lab Mobile Phlebotomy [facility] [address] [place], [place] [address] Mvmg, Gml Mobile Home Draw [address] [place] [address] 03/19/2024 8:00 AM EST Hem/Onc Treatment Hematology/[address]cology [address] [phone] Kenyatta, Chair 5 Hem Onc [address] [address] 03/25/2024 7:05 AM EST Laboratory Lab Mobile Phlebotomy [facility] [address] [place] [address] Mvmg, Gml Mobile Home Draw [address] [place] [address] 03/26/2024 8:00 AM EST Hem/Onc Treatment Hematology/Oncology Treatment, [address] [phone] Kenyatta, Chair 5 Hem Onc [facility] [address] [facility] [place] [address] 04/01/2024 7:00 AM EST Laboratory Lab Mobile Phlebotomy [facility] [address] [place] [address] Mvmg, Gml Mobile Home Draw [address] [facility] [place] [address] 04/08/2024 7:05 AM EST Laboratory Lab Mobile Phlebotomy [facility] [address] [facility] [address] Mvmg, Gml Mobile Home Draw [address] [facility] [place] [address] 04/15/2024 7:05 AM EST Laboratory Lab Mobile Phlebotomy [facility] [address] [facility] [place] [address] Mvmg, Gml Mobile Home Draw [address] [facility] [place] [address] 04/22/2024 7:05 AM EST Laboratory Lab Mobile Phlebotomy [facility] [address] [facility] [place] [address] Mvmg, Gml Mobile Home Draw [address] [facility] [place] [address] 04/29/2024 7:05 AM EST Laboratory Lab Mobile Phlebotomy [facility] [address] [facility] [place] [address] Mvmg, Gml Mobile Home Draw [address] [facility] [place] [address] 05/05/2024 7:05 AM EST Laboratory Lab Mobile Phlebotomy [facility] [address] [place] [address] Mvmg, Gml Mobile Home Draw [address] [facility] [place] [address] 06/04/2024 11:00 AM EST Office Visit Hematology/Oncology [facility] Kenyatta [place] [address] [facility] [place] [phone] Morgan Vásquez MD [address] [facility] [place] [address] 07/28/2024 7:00 AM EDT Office Visit Neurology [facility] [address] [place] [address] Sandrita Pineda PA-C [address] [place] [address] 09/02/2024 8:20 AM EDT Office Visit Pulmonary Medicine, [facility] [address] [facility] [place] [address] Ish Caba MD [address] [facility] [place] [address] 05/03/2025 7:40 AM EST Office Visit Dermatology [address] [place] [address] Albina Room PA-C [address] [place] [address] [place] [address] Health Maintenance Due Date Last Done Comments [...] this encounter Medical Devices Implanted Type Area Physician Underwriter Device Identifier Shelf Expiration Date Model / Serial / Lot Mesh Plug Xlarge [id number] - [id number] Implanted:Qty: 1 on 12/09/2020 by John Zaragoza MD at OR [facility] Left: Groin CR BARD : DAVOL 05/09/2023 [id number] / / [id number] documented as of this encounter Advance Directives [...] Power of Attor coco? No Care Teams Electrical High Tension Tester Relationship Specialty Start Date End Date Michael Collins MD [address] [place] [address] [place] [address] PCP - General Internal Medicine 03/01/14 documented as of this encounter
--- OUTSIDE RECORDS SUMMARY | 2024-03-26 16:14 | External Medical Summary | Summary of Care ---
Author Name Unknown Organization [facility] [address] [facility] [address] Phone [phone] Care Team Providers Care Inspector Printed Circuit Boards Name Role Phone Michael Collins MD Primary Care Provi zehra Reason for Visit * Reason Onset Date Comments Test Results Imaging Study 03/16/2024 Encounter Details Date Type Department Care Team (Late st Contact Info) Description 03/16/2024 Telephone Hematology/Oncology Treatment, [place] [address] [facility] [place] [address] Morgan Vásquez MD [address] [place] [address] Test Results Imaging Study Allergies No known active allergiesdocumented as of this encounter (statuses as of 03/16/2024) Medications Medication Sig Dispensed Refills Start Date End Date Status THEOPHYLLINE ER 450 MG PO WC19Xyppymxjagd:2 tablet at bedtime Take by mouth. Indications: [...] Take by mouth. Active Multiple Vitamins-Minerals ([facility] IMMUNITY SUPPORT) [...] nostril at bedtime. PATIENT INFORMATION: Kris Galvin [address] [place] [address] [employer]: [employer]/TBD ORDER: Please start nocturnal oxygen via nasal [...] (electronically signed) Ish Caba MD Pulmonary Medicine, [address] [place] [address] [place] [facility] Medical License Number: [id number] 1 Each 09/21/2022 Active metFORMIN HCl ER [...] encounter Miscellaneous Notes * Telephone Encounter - Eleanor Crawford RN - 03/16/2024 10:50 AM EST Called and spoke to patient/ . Reviewed MRI results, they verbalized understanding. Patient sees rad/onc tomorrow at 1pm. * Telephone Encounter - Eleanor Crawford RN - 03/16/2024 10:29 AM EST MyG sent to patient. Radiology: please push MRI images to [facility]. Thanks! * Telephone Encounter - Eleanor Crawford [...] Mobile Phlebotomy [facility] [address] [place] [address] Mvmg, Gml Mobile Home Draw [address] [place] [address] 03/19/2024 8:00 AM EST [facility] 200 [place] [phone] Kenyatta, Chair 5 Hem Onc Scenery 200 [place] [address] 03/25/2024 7:05 AM EST Laboratory Lab Mobile Phlebotomy [facility] [address] [place] [address] Mvmg, Gml Mobile Home Draw [address] [place] [address] 03/26/2024 8:00 AM EST [facility] 200 [place] [phone] Kenyatta, Chair 5 Hem Onc Scenery 200 [place] [address] 04/01/2024 7:00 AM EST Laboratory Lab Mobile Phlebotomy [facility] [address] [place] [address] Mvmg, Gml Mobile Home Draw [address] [place] [address] 04/08/2024 7:05 AM EST Laboratory Lab Mobile Phlebotomy [facility] [address] [employer] [place] [address] Mvmg, Gml Mobile Home Draw [address] [place] [address] 04/15/2024 7:05 AM EST Laboratory Lab Mobile Phlebotomy [facility] [address] [place] [address] Mvmg, Gml Mobile Home Draw [address] [place] [address] 04/22/2024 7:05 AM EST Laboratory Lab Mobile Phlebotomy [facility] [address] [place] [employer] [place], [place] [address] Mvmg, Gml Mobile Home Draw 25[address] [facility] [place] [address] 04/29/2024 7:05 AM EST Laboratory Lab Mobile Phlebotomy [facility] [address] [facility] [place], [place] [address] Mvmg, Gml Mobile Home Draw 25[address] [facility] [place], [place] [address] 05/05/2024 7:05 AM EST Laboratory Lab Mobile Phlebotomy [facility] [address] [facility] [place], [place] [address] Mvmg, Gml Mobile Home Draw [address] [place] [employer] [place], [place] [address] 06/04/2024 11:00 AM EST Office Visit Hematology/Oncology [facility] 200 [facility] [place] [phone] Morgan Vásquez MD 200 [facility] [address] 07/28/2024 7:00 AM EDT Office Visit Neurology [facility] [address] [facility] [address] Sandrita Pineda, PA-C 21 [facility] [place] [phone] 09/02/2024 8:20 AM EDT Office Visit Pulmonary Medicine, [facility] [place] [address] Ish Caba MD [address] [place] [phone] 05/03/2025 7:40 AM EST Office Visit Dermatology [address] [place] [address] Albina Romo, PA-C [address] [place] [address] [place] [address] Health Maintenance Due Date Last Done Comments [...] this encounter Medical Devices Implanted Type Area Timber Cruiser Device Identifier Shelf Expiration Date Model / Serial / Lot Mesh Plug Xlarge [id number] - [id number] Implanted:Qty: 1 on 12/09/2020 by John Zaragoza MD at [facility] Left: Demond RIVAS BARD : LUCINDA 05/09/2023 [id number] / / [id number] documented as of this encounter Advance Directives [...] Power of Attor coco? No Care Teams Inspector Printed Circuit Boards Relationship Specialty Start Date End Date Michael Collins MD [address] [place] [address] [place] [address] PCP - General Internal Medicine 03/01/14 documented as of this encounter
--- OUTSIDE RECORDS SUMMARY | 2024-03-26 16:14 | External Medical Summary ---
Author Name Unknown Address Unknown Organization K01:LABORATORY [facility] - [address] [facility] [address] [facility] [address] Laboratory Report Ordering Provider Test Date Status KALPESH SERRANO 03/18/2024 07:59:00 Final Observation Date Value Abnormality Reference (Units ) Status WBC, Total 03/18/2024 07:59:00 4.88 4.00-10.80 (K/uL) Final RBC 03/18/2024 07:59:00 4.07 4.50-5.25 (M/uL) Final Hemoglobin 03/18/2024 07:59:00 14.4 14.0-16.8 (g/dL) Final HCT 03/18/2024 07:59:00 44.4 40.0-48.4 (%) Final MCV 03/18/2024 07:59:00 109.1 82.0-99.5 (fL) Final MCH 03/18/2024 07:59:00 35.4 27.0-34.0 (pg) Final MCHC 03/18/2024 07:59:00 32.4 32.0-36.0 (g/dL) Final RDW 03/18/2024 07:59:00 14.2 11.5-15.5 (%) Final Platelets 03/18/2024 07:59:00 102 Below low normal 140-400 (K/uL) Final MPV 03/18/2024 07:59:00 10.3 6.6-11.1 (fL) Final Nucleated erythrocytes/100 leukocytes [Ratio] in Blood by Automated count 03/18/2024 07:59:00 0 <=0 (/100 WBCs) Final Performing Location LABORATORY [facility] - [address] [place] [address]
--- OUTSIDE RECORDS SUMMARY | 2024-03-26 16:15 | External Medical Summary | Summary of Care ---
Author Name Unknown Organization [facility] Address [address] [place] [address] Phone [phone] Care Team Providers Care Compass Operator Name Role Phone Michael Collins MD Primary Care Provi zehra Reason for Visit * Reason Onset Date Comments Imaging Records Request 03/06/2024 Encounter Details Date Type Department Care Team (Late st Contact Info) Description 03/06/2024 Telephone Radiology Film File [address] [place] [address] Support, Imaging Radiology [address] [place] [address] Imaging Records Request Allergies No known active allergiesdocumented as of this encounter (statuses as of 03/06/2024) Medications Medication Sig Dispensed Refills Start Date End Date Status THEOPHYLLINE ER 450 MG PO [id number]:2 tablet at bedtime Take by mouth. Indications: [...] CAPS Take by mouth. Active Multiple Vitamins-Minerals ([facility] IMMUNITY SUPPORT) CHEW Take by [...] nostril at bedtime. PATIENT INFORMATION: Kris Galvin [address] [place] [address] [employer]: [employer] ORDER: Please start nocturnal oxygen via nasal [...] (electronically signed) Ish Caba MD Pulmonary Medicine, [address] [place] [address] [place] [facility] Medical License Number: [id number] 1 Each 09/21/2022 Active metFORMIN HCl ER [...] before bedtime. 180 Capsule 1 09/30/2023 Active dexAMETHasone 4 MG Oral Tablet (Decadron)Indicati ons:Multiple myeloma not having achieved remission (HCC) Take 10 tablets once a week on weeks without Darzalex. Take 5 tablets on week of Darzalex injection. 35 Tablet 2 10/08/2023 Active Prochlorperazine Maleate 10 MG Oral Tablet [...] THE EVENING 60 Capsule 4 02/12/2024 Active Hospital, Clinic, or Other Facility Administered [...] as of this encounter (statuses as of 03/06/2024) Active Problems Problem Noted Date Diagnosed Date [...] as of this encounter (statuses as of 03/06/2024) Resolved Problems Problem Noted Date Diagnosed Date Resolved Date Asthma in remission 08/28/2022 08/29/19 Asthma, mild persistent 08/28/202208/11 Asthma, severe persistent 08/28/2022 Stem cell transplant candidate 08/17/2019 09/02/2019 documented as of this encounter (statuses as of 03/06/2024) Immunizations Name Administration Dates Next Due COVID-19 mRNA, LNP-s, No Pre serve, 2-Dose Series ([employer]) 01/17/2021,08/05/2020,07/08/2020 COVID-19, LNP-s, No Preserve , Bryant-sucrose, Ages 12+ (Pfizer) 09/26/2021 COVID-19, MRNA-LNP, 23-24, P F, 30 MCG/0.3 mL, 12 YRS AND ABOVE, IM (PFIZER-Comirnaty) [...] Encounter - Marley Castro, System Support - 03/06/2024 11:27 AM EDT Renu Baron requesting PET CT 08/13/23, CT chest 09/12/22, CT ap 03/05/24 images be pushed through PACS. [place] Authorization to Release on file. Images pushed to [employer] PACS external connection. documented in this encounter Plan of Treatment Upcoming Encounters Date Type Department Care Team (Late st Contact Info) Description 03/11/2024 7:05 AM EDT Laboratory Lab Mobile Phlebotomy [facility] [address] [place] [id number] Mvmg, G[facility] Draw [address] [place] [address] 03/12/2024 8:30 AM EDT Hem/Onc Treatment Hematology/Oncology Treatment, [place] [address] [place] [phone] Park, Chair 11 Hem Onc Scenery 200 [facility] [place] [facility] [place] [address] 03/13/2024 2:30 PM EDT Imaging Radiology [address] [place] [address] 03/18/2024 7:05 AM EST Laboratory Lab Mobile Phlebotomy [facility] [address] [place] [address] [address] Mvmg, Gml Mobile Home Draw [address] [place] [address] 03/19/2024 8:00 AM EST Hem/Onc Treatment Hematology/Oncology Treatment, [place] [address] [facility] [place] [phone] Park, Chair 5 Hem Onc Scenery 200 [place] [address] 03/25/2024 7:05 AM EST Laboratory Lab Mobile Phlebotomy [facility] [address] [place] [address] Mvmg, Gml Mobile Home Draw [address] [facility] [address] 03/26/2024 8:00 AM EST Hem/Onc Treatment Hematology/Oncology Treatment, [place] [address] [place] [phone] Kenyatta, Chair 5 Hem Onc Scenery 200 [facility] [place] [address] 04/01/2024 7:00 AM EST Laboratory Lab Mobile Phlebotomy [facility] [address] [address] Mvmg, Gml Mobile Home Draw [address] [facility] [address] 04/08/2024 7:05 AM EST Laboratory Lab Mobile Phlebotomy [facility] [address] [place] [address] Mvmg, Gml Mobile Home Draw [address] [place] [address] 04/15/2024 7:05 AM EST Laboratory Lab Mobile Phlebotomy [facility] [address] [place] [address] Mvmg, Gml Mobile Home Draw [address] [facility] [address] 04/22/2024 7:05 AM EST Laboratory Lab Mobile Phlebotomy [facility] [address] [place] [address] Mvmg, Gml Mobile Home Draw [address] [facility] [place] [address] 04/29/2024 7:05 AM EST Laboratory Lab Mobile Phlebotomy [facility] [address] [facility] [place] [address] Mvmg, Gml Mobile Home Draw [address] [facility] [place] [address] 05/05/2024 7:05 AM EST Laboratory Lab Mobile Phlebotomy [facility] [address] [facility] [place] [address] Mvmg, Gml Mobile Home Draw 25[address] [facility] [place] [address] 06/04/2024 10:45 AM EST Office Visit Hematology/Oncology [facility] [address] [place] [phone] Morgan Vásquez MD [address] [place] [address] 07/28/2024 7:00 AM EDT Office Visit Neurology [facility] 200 [facility] [place] [address] Sandrita Pineda PAYeimyC 21 [facility] [place] [address] 09/02/2024 8:20 AM EDT Office Visit Pulmonary Medicine, [facility] [address] [facility] [place] [address] Ish Caba MD [address] [place] [address] 05/03/2025 7:40 AM EST Office Visit Dermatology [address] [place] [address] Albina Romo PA-C [address] [place] [address] [place] [address] Health Maintenance Due Date Last Done Comments Depression Screening 1976 Albumin/Creatinine Ratio 1982 Cologuard 2009 Fecal Occult Blood Test 2009 Sigmoidoscopy 2009 Colonoscopy 03/03/2023 03/03/2018, 03/03/2018 Colorectal Cancer Screening 03/03/2023 Lipid Panel 11/18/2024 11/19/2019, 07/11, 07/29/2009 GFR 03/04/2025 03/04/2024, 02/10, 02/12/2024, Additional history exists Diabetes Screening 03/04/2027 03/04/2024, 1 , 02/12/2024, Additional history exists DTap/Tdap Vaccines (4 - [...] this encounter Medical Devices Implanted Type Area Technical Project Manager Device Identifier Shelf Expiration Date Model / Serial / Lot Mesh Plug Xlarge [id number] - [id number] Implanted:Qty: 1 on 12/09/2020 by John Zaragoza MD at OR [facility] Left: Groin CR BARD : DAVOL 05/09/2023 [id number] / / [id number] documented as of this encounter Advance Directives [...] Power of Attor coco? No Care Teams Compass Operator Relationship Specialty Start Date End Date Michael Collins MD [address] [place] [address] [place] [address] PCP - General Internal Medicine 03/01/14 documented as of this encounter
--- OUTSIDE RECORDS SUMMARY | 2024-03-26 16:15 | External Medical Summary | Summary of Care ---
Author Name Unknown Organization [facility] Address [address] [place] [address] Phone [phone] Care Team Providers Care Bobcat Operator Name Role Phone Michael Collins MD [facility] Reason for Referral * Evaluate & Treat - Unlimited Visits (Within 10 days (routine)) - Authorized Specialty Diagnoses / Procedures Referred By Contac t Referred To Contact Radiation Oncology Diagnoses Multiple myeloma not having achieved remission (HCC) Pathological compression fracture of thoracic vertebra, initial encounter ([facility]) Morgan Vásquez MD [address] [place] [address] Referral ID Status Reason Start Date Expiration Date Visits Requested Visits Authorized [id number] Authorized Specialty Services Required 4 1 1 Question Answer Referral Priority Within 10 days (routine) Where should this appointment be scheduled? External - [facility] What is the preferred location to have this test performed? Non-[facility] Site - [facility] Comments 58-year-old male, a case of multiple myeloma, on systemic chemotherapy with Daratumumab Cytoxan and prednisone, complained of upper abdominal pain, CT scan of abdomen showed new pathological compression fracture of T10 vertebral body. Planning for MRI of the thoracic spine. Would like to radiation oncology consultation. Thanks. Morgan Vásquez MD Hem/Onc * Precert (Within 10 days (routine)) - Authorized Specialty Diagnoses / Procedures Referred By Contac t Referred To Contact Radiology Diagnoses Multiple myeloma not having achieved remission (HCC) Pathological compression fracture of thoracic vertebra, initial encounter (HCC) Procedures MRI T SPINE W WO CONTRAST Morgan Vásquez MD [address] [place] [address] Referral ID Status Reason Start Date Expiration Date V isits Requested Visits Authorized [id number] Authorized 03/13/2024 999 999 Reason for Visit * Reason Onset Date Comments Test Results 03/05/2024 Unexpected or In determinate Result Encounter Details Date Type Department Care Team (Late st Contact Info) Description 03/05/2024 Telephone Hematology/Oncology [facility] [place] [address] [facility] [place], [place] [address] Morgan Vásquez MD [address] [facility] [place] [address] Test Results (Unexpected or Indeterminate ... Allergies No known active allergiesdocumented as of this encounter (statuses as of 03/06/2024) Medications Medication Sig Dispensed Refills Start Date End Date Status THEOPHYLLINE ER 450 MG PO [id number]:2 tablet at bedtime Take by mouth. Indications: [...] CAPS Take by mouth. Active Multiple Vitamins-Minerals ([facility] IMMUNITY SUPPORT) CHEW Take by [...] into nostril at bedtime. PATIENT INFORMATION: Kris Kamar [address] [place] [address] [employer] ScanSafe: [id number] ORDER: Please start nocturnal oxygen via nasal [...] (electronically signed) Ish Caba MD Pulmonary Medicine, [facility] [address] [place] [address] [place] [facility] Medical License Number: [id number] 1 Each 09/21/2022 Active metFORMIN HCl ER [...] mRNA, LNP-s, No Pre serve, 2-Dose Series ([employer]) 01/17/2021,08/05/2020,07/08/2020 COVID-19, LNP-s, No Preserve , Bryant-sucrose, Ages 12+ ([employer]) 09/26/2021 COVID-19, MRNA-LNP, 23-24, P F, 30 MCG/0.3 mL, 12 YRS AND ABOVE, IM (PFIZER-Comirunc health) 02/01/2024 DTaP Dipth/Tet/Acell Pertussis ([employer]), Peds 02/23/2021,11/11/2020,09/09/2020 [...] encounter Miscellaneous Notes * Telephone Encounter - Court Herrera OSA - 03/06/2024 8:54 AM EDT Pt is scheduled for MRI * Telephone Encounter - Court Herrera OSA - 03/06/2024 8:41 AM EDT Called [facility] and they have the referral and are going to call pt * Telephone Encounter - Morgan Vásquez MD - 03/06/2024 6:[address] scan of the abdomen and pelvis done on 03/05/2024: - Hepatomegaly, measuring 21.7, splenomegaly measuring about 14 cm. No focal liver lesions noted - Mild T10 pathologic compression fracture which is new compared to 08/22 and . (Secondary to large lytic lesion occupying majority of the T10 vertebral body). - Other small scattered lytic lesions throughout the visualized spine similar to the previous imaging studies noted in September 03 but progressed compared with the metabolic activity. (Previous PET-CT scan done on 08/13/2023 does not mention anything about lytic lesions). I would like to proceed with MRI of the thoracic spine for further evaluation. Upper abdominal pain is most likely referred pain from the T10 vertebral body lesion. Would like to have radiation oncology consultation at [facility]. * Telephone Encounter - Aye Gaitan OSA - 03/05/2024 5:58 PM EDT Hello- The radiologist discovered an unexpected or indeterminate finding on Kris Galvin ([id number]) and asks that you review the following report. Study Type:CT ABD/PELVIS W IV AND W ORAL CONTRAST Date of Study: 03/05/24 IMPRESSION 1. Mild T10 pathologic compression fracture new compared to 08/13/2023, secondary to a large lytic lesion occupying majority of the vertebral body. 2. Other small scattered lytic lesions throughout the visualized spine appears similar to 08/13/2023 but progressed compared to 09/12/2022. 3. Hepatosplenomegaly. Please respond to this encounter to acknowledge receipt of this message and take responsibility to ensure this report is reviewed. Thank you, PENNY Reynolds Client Service Rep [facility] [place] documented in this encounter Plan of Treatment Upcoming Encounters Date Type Department Care Team (Late st Contact Info) Description 03/11/2024 7:05 AM EDT Laboratory Lab Mobile Phlebotomy [facility] [address] [employer] [place] [address] Mvmg, Gml Mobile Home Draw [address] [employer] [place] [address] 03/12/2024 8:30 AM EDT Hem/Onc Treatment Hematology/Oncology Treatment, [address] [place] [address] Kenyatta, Chair [address] [place] [address] 03/13/2024 2:30 PM EDT Imaging Radiology [address] [place] [address] 03/18/2024 7:05 AM EST Laboratory Lab Mobile Phlebotomy [facility] [address] [employer] [place] [address] Mvmg, Gml Mobile Home Draw [address] [place] [address] 03/19/2024 8:00 AM EST Hem/Onc Treatment Hematology/Oncology Treatment, [address] [place] [phone] Kenyatta, Chair 5 Hem Onc [facility] [address] [place] [address] [place] [address] 03/25/2024 7:05 AM EST Laboratory Lab Mobile Phlebotomy [facility] [address] [place] [address] Mvmg, Gml Mobile Home Draw [address] [place], [place] [address] 03/26/2024 8:00 AM EST Hem/Onc Treatment Hematology/Oncology Treatment, [place] [address] [place] [address] Kenyatta, Chair 5 Hem Onc Scenery 200 [facility] [place] [address] 04/01/2024 7:00 AM EST Laboratory Lab Mobile Phlebotomy [facility] [address] [place], [place] [address] Mvmg, Gml Mobile Home Draw [address] [place], [place] [address] 04/08/2024 7:05 AM EST Laboratory Lab Mobile Phlebotomy [facility] [address] [place] [address] Mvmg, Gml Mobile Home Draw [address] [place] [address] 04/15/2024 7:05 AM EST Laboratory Lab Mobile Phlebotomy [facility] [address] [place], [place] [address] Mvmg, Gml Mobile Home Draw [address] [place] [address] 04/22/2024 7:05 AM EST Laboratory Lab Mobile Phlebotomy [facility] [address] [place] [address] Mvmg, Gml Mobile Home Draw [address] [place] [address] 04/29/2024 7:05 AM EST Laboratory Lab Mobile Phlebotomy [facility] [address] [place] [address] Mvmg, Gml Mobile Home Draw [address] [place] [address] 05/05/2024 7:05 AM EST Laboratory Lab Mobile Phlebotomy [facility] [address] [facility] [place] [address] Mvmg, Gml Mobile Home Draw [address] [facility] [place] [address] 06/04/2024 10:45 AM EST Office Visit Hematology/Oncology [facility] [address] [facility] [place] [phone] Morgan Vásquez MD [address] [facility] [place] [address] 07/28/2024 7:00 AM EDT Office Visit Neurology [facility] [address] [facility] [place] [address] Sandrita Pineda PA-C [facility] [place] [address] 09/02/2024 8:20 AM EDT Office Visit Pulmonary Medicine, [facility] 132 [facility] [place] [address] Ish Caba MD [address] [id number] 05/03/2025 7:40 AM EST Office Visit Dermatology [address] [place] [address] Albina Romo PA-C [address] [place] [address] [place] [address] Scheduled Orders Name Type Priority Associated Diagnoses Orde r Schedule MRI T SPINE W WO CONTRAST Medical Imaging Routine Multiple myeloma not having achieved remission (HCC) Pathological compression fracture of thoracic vertebra, initial encounter (HCC) Expected: 03/13/2024, Expires: 04/06/2025 Scheduled Referrals Name Type Priority Associated Diagnoses Orde r Schedule RADIATION/ONCOLOGY REFERRAL OP Referral Within 10 days (routine) Multiple myeloma not having achieved remission (HCC) Pathological compression fracture of thoracic vertebra, initial encounter (HCC) Ordered: 03/06/2024 Health Maintenance Due Date Last Done Comments [...] this encounter Medical Devices Implanted Type Area Carton Forming Machine Tender Device Identifier Shelf Expiration Date Model / Serial / Lot Mesh Plug Xlarge [id number] - [id number] Implanted:Qty: 1 on 12/09/2020 by John Zaragoza MD at OR [facility] Left: Groin CR BARD : DAVOL 05/09/2023 [id number] / / [id number] documented as of this encounter Visit Diagnoses Diagnosis Multiple myeloma not having achieved remission (HCC)- Primary Multiple myeloma, without mention of having achieved remission Pathological compression fracture of thoracic vertebra, initial encounter (HCC) documented in this encounter Advance Directives * [...] Power of Attor coco? No Care Teams Bobcat Operator Relationship Specialty Start Date End Date Michael Collins MD [address] [place] [address] [place] [address] PCP - General Internal Medicine 03/01/14 documented as of this encounter
--- OUTSIDE RECORDS SUMMARY | 2024-03-26 16:15 | External Medical Summary ---
Author Name Unknown Address Unknown Organization K01:[facility] [address] [facility] [address] Laboratory Report Ordering Provider Test Date Status KALPESH SERRANO 03/11/2024 08:32:00 Final Observation Date Value Abnormality Reference (Units ) Status WBC, Total 03/11/2024 08:32:00 2.76 Below low normal 4.00-10.80 (K/uL) Final RBC 03/11/2024 08:32:00 3.89 4.50-5.25 (M/uL) Final Hemoglobin 03/11/2024 08:32:00 14.0 14.0-16.8 (g/dL) Final HCT 03/11/2024 08:32:00 42.5 40.0-48.4 (%) Final MCV 03/11/2024 08:32:00 109.3 82.0-99.5 (fL) Final MCH 03/11/2024 08:32:00 36.0 27.0-34.0 (pg) Final MCHC 03/11/2024 08:32:00 32.9 32.0-36.0 (g/dL) Final RDW 03/11/2024 08:32:00 14.0 11.5-15.5 (%) Final Platelets 03/11/2024 08:32:00 113 Below low normal 140-400 (K/uL) Final MPV 03/11/2024 08:32:00 11.2 6.6-11.1 (fL) Final Nucleated erythrocytes/100 leukocytes [Ratio] in Blood by Automated count 03/11/2024 08:32:00 0 <=0 (/100 WBCs) Final Performing Location [facility] [address] [facility] [address]
--- OUTSIDE RECORDS SUMMARY | 2024-03-26 16:15 | External Medical Summary | Summary of Care ---
Author Name Unknown Organization [facility] Address [address] [place] [address] Phone [phone] Care Team Providers Care Experimental Mechanic Name Role Phone Michael Collins MD [facility] Reason for Referral * Evaluate & Treat - Unlimited Visits (Within 10 days (routine)) - Authorized Specialty Diagnoses / Procedures Referred By Contac t Referred To Contact Radiation Oncology Diagnoses Multiple myeloma not having achieved remission (HCC) Pathological compression fracture of thoracic vertebra, initial encounter ([facility]) Morgan Vásquez MD [address] [place] [address] Referral ID Status Reason Start Date Expiration Date Visits Requested Visits Authorized [id number] Authorized Specialty Services Required 4 1 1 Question Answer Referral Priority Within 10 days (routine) Where should this appointment be scheduled? External - [facility] What is the preferred location to have this test performed? Non-[facility] Site - [facility] Comments 58-year-old male, a case of [...] W WO CONTRAST Morgan Vásquez MD [address] [facility] [place] [address] Referral ID Status Reason Start Date Expiration Date V isits Requested Visits Authorized [id number] Authorized 03/13/2024 999 999 Reason for Visit * Reason Onset Date Comments Test Results 03/05/2024 Unexpected or In determinate Result Encounter Details Date Type Department Care Team (Late st Contact Info) Description 03/05/2024 Telephone Hematology/Oncology [facility] [place] 200 [facility] [place], [place] [address] Morgan Vásquez MD 200 [facility] [place] [address] Test Results (Unexpected or Indeterminate ... Allergies No known active allergiesdocumented as of this encounter (statuses as of 03/06/2024) Medications Medication Sig Dispensed Refills Start Date End Date Status THEOPHYLLINE ER 450 MG PO NI25Icwcorfpqnd:2 tablet at bedtime Take by mouth. Indications: [...] nostril at bedtime. PATIENT INFORMATION: Kris Kamar [address] [facility] [place] [address] [employer] MEDICAL EQUIPMENT SPO Medical: [employer] ORDER: Please start nocturnal oxygen via nasal [...] (electronically signed) Ish Caba MD Pulmonary Medicine, [facility] [address] [place] [address] [place] [facility] Medical License Number: [id number] 1 Each 09/21/2022 Active metFORMIN HCl ER [...] mRNA, LNP-s, No Pre serve, 2-Dose Series (MessageOne) 01/17/2021,08/05/2020,07/08/2020 COVID-19, LNP-s, No Preserve , Bryant-sucrose, Ages 12+ (MessageOne) 09/26/2021 COVID-19, MRNA-LNP, 23-24, P F, 30 MCG/0.3 mL, 12 YRS AND ABOVE, IM ([facility]) 02/01/2024 DTaP Dipth/Tet/Acell Pertussis (Infanrix), Peds 02/23/2021,11/11/2020,09/09/2020 [...] OSA - 03/06/2024 8:41 AM EDT Called [facility] and they have the referral and are [...] like to have radiation oncology consultation at [facility]. * Telephone Encounter - Aye Gaitan OSA - 03/05/2024 5:58 PM EDT Hello- The radiologist discovered an unexpected or indeterminate finding on Kris Galvin ([id number]) and asks that you review the following [...] Thank you, PENNY Reynolds Client Service Rep [facility] documented in this encounter Plan of Treatment Upcoming Encounters Date Type Department Care Team (Late st Contact Info) Description 03/11/2024 7:05 AM EDT Laboratory Lab Mobile Phlebotomy [facility] [address] [place] [address] Mvmg, Gml Mobile Home Draw [address] [place], [place] [address] 03/12/2024 8:30 AM EDT Hem/Onc Treatment Hematology/Oncology [address], [place] [phone] Kenyatta, Chair 11 Hem Onc Scenery [address] [place] [address], [place] [address] 03/18/2024 7:05 AM EST Laboratory Lab Mobile Phlebotomy [facility] [address] [place], [place] [address] Mvmg, Gml Mobile Home Draw [address] [place], [place] [address] 03/19/2024 8:00 AM EST Hem/Onc Treatment Hematology/Oncology Treatment, [address], [place] [address] Kenyatta, Chair 5 Hem Onc Scenery [address] [place] [address] [place] [address] 03/25/2024 7:05 AM EST Laboratory Lab Mobile Phlebotomy [facility] [address] [place] [address] Mvmg, Gml Mobile Home Draw [address] [place], [place] [address] 03/26/2024 8:00 AM EST Hem/Onc Treatment Hematology/Oncology Treatment, [address] [place] [address] Kenyatta, Chair 5 Hem Onc [facility] 200 [facility] [place] [address] 04/01/2024 7:00 AM EST Laboratory Lab Mobile Phlebotomy [facility] [address] [place], [place] [address] Mvmg, Gml Mobile Home Draw [address] [place] [address] 04/08/2024 7:05 AM EST Laboratory Lab Mobile Phlebotomy [facility] [address] [place] [address] Mvmg, Gml Mobile Home Draw [address] [facility] [place] [address] 04/15/2024 7:05 AM EST Laboratory Lab Mobile Phlebotomy [facility] [address] [place] [address] Mvmg, Gml Mobile Home Draw [address] [place] [place] [address] 04/22/2024 7:05 AM EST Laboratory Lab Mobile Phlebotomy [facility] [address] [place] [address] Mvmg, Gml Mobile Home Draw [address] [place] [address] 04/29/2024 7:05 AM EST Laboratory Lab Mobile Phlebotomy [facility] [address] [place] [address] Mvmg, Gml Mobile Home Draw [address] [place] [address] 05/05/2024 7:05 AM EST Laboratory Lab Mobile Phlebotomy [facility] [address] [place] [address] Mvmg, Gml Mobile Home Draw [address] [place] [address] 06/04/2024 10:45 AM EST Office Visit Hematology/Oncology [facility] [address] [facility] [place] [address] Morgan Vásquez MD [address] [place] [address] 07/28/2024 7:00 AM EDT Office Visit Neurology [facility] 200 [facility] [place] [address] Sandrita Pineda PAYeimyC [address] [place] [address] 09/02/2024 8:20 AM EDT Office Visit Pulmonary Medicine, [facility] 132 [facility] [place] [address] Ish Caba MD [address] [place] [address] 05/03/2025 7:40 AM EST Office Visit Dermatology [address] [place] [address] Albina Romo PA-C [address] [place] [address] [place] [address] Scheduled Orders Name Type Priority Associated Diagnoses [...] this encounter Medical Devices Implanted Type Area Tonnage Compilation Clerk Device Identifier Shelf Expiration Date Model / Serial / Lot Mesh Plug Xlarge [id number] - [id number] Implanted:Qty: 1 on 12/09/2020 by John Zaragoza MD at OR [facility] Left: Groin CR BARD : DAVOL 05/09/2023 [id number] / / [id number] documented as of this encounter Visit Diagnoses [...] Power of Attor coco? No Care Teams Experimental Mechanic Relationship Specialty Start Date End Date Michael Collins MD [address] [place] [address] [place] [address] PCP - General Internal Medicine 03/01/14 documented as of this encounter
--- OUTSIDE RECORDS SUMMARY | 2024-03-26 16:15 | External Medical Summary | Summary of Care ---
Author Name Unknown Organization [facility] Address [address] [place] [address] Phone [phone] Care Team Providers Care Janitorial Cleaner Name Role Phone Michael Collins MD [facility] Reason for Referral * Evaluate & Treat - Unlimited Visits (Within 10 days (routine)) - Authorized Specialty Diagnoses / Procedures Referred By Contac t Referred To Contact Radiation Oncology Diagnoses Multiple myeloma not having achieved remission (HCC) Pathological compression fracture of thoracic vertebra, initial encounter ([facility]) Morgan Vásquez MD [address] [place] [address] Referral ID Status Reason Start Date Expiration Date Visits Requested Visits Authorized [id number] Authorized Specialty Services Required 4 1 1 Question Answer Referral Priority Within 10 days (routine) Where should this appointment be scheduled? External - [facility] What is the preferred location to have this test performed? Non-[facility] Site - [facility] Comments 58-year-old male, a case of [...] W WO CONTRAST Morgan Vásquez MD 200 [facility] [place] [address] Referral ID Status Reason Start Date Expiration Date V isits Requested Visits Authorized [id number] Authorized 03/13/2024 999 999 Reason for Visit * Reason Onset Date Comments Test Results 03/05/2024 Unexpected or In determinate Result Encounter Details Date Type Department Care Team (Late st Contact Info) Description 03/05/2024 Telephone Hematology/Oncology [facility] [place] 200 [facility] [place], [place] [address] Morgan Vásquez MD 200 [facility] [place] [address] Test Results (Unexpected or Indeterminate ... Allergies No known active allergiesdocumented as of this encounter (statuses as of 03/06/2024) Medications Medication Sig Dispensed Refills Start Date End Date Status THEOPHYLLINE ER 450 MG PO PO88Yjigyeekuad:2 tablet at bedtime Take by mouth. Indications: [...] CAPS Take by mouth. Active Multiple Vitamins-Minerals ([facility] IMMUNITY SUPPORT) CHEW Take [...] nostril at bedtime. PATIENT INFORMATION: Kris Kamar [address] [place] [address] [employer] MEDICAL EQUIPMENT Unbxd: Lessno/ebookpie ORDER: Please start nocturnal oxygen via nasal [...] (electronically signed) Ish Caba MD Pulmonary Medicine, [facility] [address] [place] [address] [place] [facility] Medical License Number: [id number] 1 Each 09/21/2022 Active metFORMIN HCl ER [...] mRNA, LNP-s, No Pre serve, 2-Dose Series (2,10E+07) 01/17/2021,08/05/2020,07/08/2020 COVID-19, LNP-s, No Preserve , Bryant-sucrose, Ages 12+ (2,10E+07) 09/26/2021 COVID-19, MRNA-LNP, 23-24, P F, 30 MCG/0.3 mL, 12 YRS AND ABOVE, IM ([facility] 02/01/2024 DTaP Dipth/Tet/Acell Pertussis (Infanrix), Peds 02/23/2021,11/11/2020,09/09/2020 [...] encounter Miscellaneous Notes * Telephone Encounter - Morgan Vásquez MD [...] like to have radiation oncology consultation at [facility]. * Telephone Encounter - Aye Gaitan OSA - 03/05/2024 5:58 PM EDT Hello- The radiologist discovered an unexpected or indeterminate finding on Kris Galvin ([id number]) and asks that you review the following [...] reviewed. Thank you, PENNY Reynolds Client Service [facility] documented in this encounter Plan of Treatment Upcoming Encounters Date Type Department Care Team (Late st Contact Info) Description 03/11/2024 7:05 AM EDT Laboratory Lab Mobile Phlebotomy [facility] [address] [place], [place] [address] Mvmg, Gml Mobile Home Draw [address] [place], [place] [address] 03/12/2024 8:30 AM EDT Hem/Onc Treatment Hematology/Oncology Treatment, [place] 200 [place] [address] Kenyatta, Chair 11 Hem Onc Scenery 200 [place] [address] 03/18/2024 7:05 AM EST Laboratory Lab Mobile Phlebotomy [facility] [address] [place] [address] Mvmg, Gml Mobile Home Draw [address] [place] [address] 03/19/2024 8:00 AM EST Hem/Onc Treatment Hematology/Oncology Treatment, [place] 200 [place] [address] Kenyatta, Chair 5 Hem Onc Scenery 200 [place] [address] 03/25/2024 7:05 AM EST Laboratory Lab Mobile Phlebotomy [facility] [address] [place] [address] Mvmg, Gml Mobile Home Draw [address] [place] [address] 03/26/2024 8:00 AM EST Hem/Onc Treatment Hematology/Oncology Treatment, [place] 200 [place] [address] Kenyatta, Chair 5 Hem Onc Scenery 200 [facility] [address] 04/01/2024 7:00 AM EST Laboratory Lab Mobile Phlebotomy [facility] [address] [place] [address] Mvmg, Gml Mobile Home Draw [address] [place] [address] 04/08/2024 7:05 AM EST Laboratory Lab Mobile Phlebotomy [facility] [address] [place] [address] Mvmg, Gml Mobile Home Draw [address] [place] [address] 04/15/2024 7:05 AM EST Laboratory Lab Mobile Phlebotomy [facility] [address] [place] [address] Mvmg, Gml Mobile Home Draw [address] [place] [address] 04/22/2024 7:05 AM EST Laboratory Lab Mobile Phlebotomy [facility] [address] [place] [address] Mvmg, Gml Mobile Home Draw [address] [place] [address] 04/29/2024 7:05 AM EST Laboratory Lab Mobile Phlebotomy [facility] [address] [place] [address] Mvmg, Gml Mobile Home Draw [address] [place] [address] 05/05/2024 7:05 AM EST Laboratory Lab Mobile Phlebotomy [facility] [address] [place] [address] Mvmg, Gml Mobile Home Draw [address] [place] [address] 06/04/2024 10:45 AM EST [facility] [place] [address] [place] [address] Morgan Vásquez MD [address] [place] [address] 07/28/2024 7:00 AM EDT Office Visit Neurology [facility] [place] [address] [place] [address] Sandrita Pineda PA-C [address] [place] [address] 09/02/2024 8:20 AM EDT Office Visit Pulmonary Medicine, [facility] [address] [place] [address] Ish Caba MD [address] [facility] [place] [address] 05/03/2025 7:40 AM EST Office Visit Dermatology [address] [place] [address] Albina Romo PA-C [address] [place] [address] [place] [address] Scheduled Orders Name Type Priority Associated Diagnoses [...] this encounter Medical Devices Implanted Type Area Jewel Sawyer Device Identifier Shelf Expiration Date Model / Serial / Lot Mesh Plug Xlarge [id number] - [id number] Implanted:Qty: 1 on 12/09/2020 by John Zaragoza MD at OR [facility] Left: Demond RIVAS BARD : LUCINDA 05/09/2023 [id number] / / [id number] documented as of this encounter Visit Diagnoses Diagnosis Multiple myeloma not having achieved remission (HCC)- Primary Multiple myeloma, without mention of having achieved remission Pathological compression fracture of thoracic vertebra, initial encounter ([facility]) documented in this encounter Advance Directives * [...] Power of Attor coco? No Care Teams Janitorial Cleaner Relationship Specialty Start Date End Date Michael Collins MD [address] [facility] [place] [address] PCP - General Internal Medicine 03/01/14 documented as of this encounter
--- OUTSIDE RECORDS SUMMARY | 2024-03-26 16:15 | External Medical Summary ---
Author Name Unknown Address Unknown Organization K01:LABORATORY [facility] - [address] [facility] [place] [address] Laboratory Report Ordering Provider Test Date Status KALPESH SERRANO 03/11/2024 08:32:00 Final Observation Date Value Abnormality Reference (Units ) Status SYNC LEUKOCYTES IN BLOOD BY AUTOMATED COUNT 03/11/2024 08:32:00 2.76 Below low normal 4.00-10.80 (K/uL) Final Segs 03/11/2024 08:32:00 70.1 40.0-75.0 (%) Final Lymphs % 03/11/2024 08:32:00 12.0 Below low normal 18.0-42.0 (%) Final Monos 03/11/2024 08:32:00 14.9 Above high normal 1.0-11.0 (%) Final Eosinophils 03/11/2024 08:32:00 2.2 0.0-6.0 (%) Final Basos 03/11/2024 08:32:00 0.4 0.0-2.0 (%) Final Immature Granulocyte, Percent 03/11/2024 08:32:00 0.4 0.0-2.0 (%) Final Absolute Segs 03/11/2024 08:32:00 1.94 1.80-7.70 (K/uL) Final Lymphs, absolute 03/11/2024 08:32:00 0.33 Below low normal 1.00-4.80 (K/ul) Final Monos, Abs 03/11/2024 08:32:00 0.41 0.00-1.10 (K/uL) Final Eos, Abs 03/11/2024 08:32:00 0.06 0.00-0.70 (K/uL) Final Basos, Abs 03/11/2024 08:32:00 0.01 0.00-0.20 (K/uL) Final Immature Granulocytes, Number 03/11/2024 08:32:00 0.01 0.00-0.20 (K/uL) Final Performing Location LABORATORY [facility] - [facility] [address] [address]
--- OUTSIDE RECORDS SUMMARY | 2024-03-26 16:15 | External Medical Summary | Summary of Care ---
Author Name Unknown Organization [facility] Address [address] [facility] [place] [address] Phone [phone] Care Team Providers Care Tanner Rotary Drum Continuous Process Name Role Phone Michael Collins MD Primary [...] Morgan Vásquez MD [address] [place] [address] Anc Hem/Onc Amena You DEPT CLOSED - 03/26/[address] [place] [address] Referral ID Status Reason Start Date Expiration Date V isits Requested Visits Authorized [id number] Authorized 05/28/2022 05/12/2099 99 99 Encounter Details Date Type Department Care Team (Latest Contact Info) Description 03/12/2024 8:30 AM EDT Hem/Onc Treatment Hematology/Oncolog y Treatment, [facility] [address] [place] [address] Kenyatta, Chair 11 Hem Onc Scenery [address] [place] [address] Multiple myeloma not having achieved remission (HCC)*; Encounter for antineoplastic chemotherapy Allergies No known active allergiesdocumented as of this encounter (statuses as of 03/12/2024) Medications Medication Sig Dispensed Refills Start Date End Date Status THEOPHYLLINE ER 450 MG PO HY82Hernazqfjsz:2 tablet at bedtime Take by mouth. Indications: [...] CAPS Take by mouth. Active Multiple Vitamins-Minerals ([facility] IMMUNITY SUPPORT) CHEW [...] at bedtime. PATIENT INFORMATION: Kris Galvin [address] [place] [address] [employer] MEDICAL EQUIPMENT COMPANY: [employer] ORDER: Please start nocturnal oxygen via nasal [...] signed) Ish Caba MD Pulmonary Medicine, [address] [address] [place] [facility] Medical License Number: [id number] 1 Each 09/21/2022 Active metFORMIN HCl ER [...] as of this encounter (statuses as of 03/12/2024) Active Problems Problem Noted Date Diagnosed Date [...] as of this encounter (statuses as of 03/12/2024) Resolved Problems Problem Noted Date Diagnosed Date Resolved Date Asthma in remission 08/28/2022 08/29/19 Asthma, mild persistent 08/28/2022/12/2022 Asthma, severe persistent 08/28/2022 Stem cell transplant candidate 08/17/2019 09/02/2019 documented as of this encounter (statuses as of 03/12/2024) Immunizations Name Administration Dates Next Due COVID-19 mRNA, LNP-s, No Pre serve, 2-Dose Series ([employer]) 01/17/2021,08/05/2020,07/08/2020 COVID-19, LNP-s, No Preserve , Bryant-sucrose, Ages 12+ (LeadFire) 09/26/2021 COVID-19, MRNA-LNP, PF, 30 M CG/0.3 mL, 12 YRS AND ABOVE, IM ([employer]-Comirnaty) 02/01/2024 DTaP Dipth/Tet/Acell Pertussis (Infanrix), Peds 02/23/2021,11/11/2020,09/09/2020 [...] Care Team (Late st Contact Info) Description 03/13/2024 2:30 PM EDT Imaging Radiology [address] [place] [address] 03/18/2024 7:05 AM EST Laboratory Lab Mobile Phlebotomy [facility] [address] [place] [address] Mvmg, Gml Mobile Home Draw [address] [place] [address] 03/19/2024 8:00 AM EST Hem/Onc Treatment Hematology/Oncology [address], [address] [address] Kenyatta, Chair 5 Hem On[address] [place] [address] 03/25/2024 7:05 AM EST Laboratory Lab Mobile Phlebotomy [facility] [address] [place] [address] Mvmg, Gml Mobile Home Draw [address] [place] [address] 03/26/2024 8:00 AM EST Hem/Onc Treatment Hematology/Oncology Treatment, [place] [address] [facility] [phone] [place], Chair [address] [facility] [address] [place] [address] [place] [address] 04/01/2024 7:00 AM EST Laboratory Lab Mobile Phlebotomy [facility] [address] [place] [address] Mvmg, Gml Mobile Home Draw [address] [place] [address] 04/08/2024 7:05 AM EST Laboratory Lab Mobile Phlebotomy [facility] [address] [facility] [place] [address] Mvmg, Gml Mobile Home Draw 25[address] [facility] [place] [address] 04/15/2024 7:05 AM EST Laboratory Lab Mobile Phlebotomy [facility] [address] [facility] [place] [address] Mvmg, Gml Mobile Home Draw [address] [facility] [place] [place] [address] 04/22/2024 7:05 AM EST Laboratory Lab Mobile Phlebotomy [facility] [address] [facility] [place] [address] Mvmg, Gml Mobile Home Draw [address] [facility] [place] [address] 04/29/2024 7:05 AM EST Laboratory Lab Mobile Phlebotomy [facility] [address] [facility] [place] [place] [address] Mvmg, Gml Mobile Home Draw [address] [facility] [place] [place] [address] 05/05/2024 7:05 AM EST Laboratory Lab Mobile Phlebotomy [facility] [address] [facility] [place] [place] [address] Mvmg, Gml Mobile Home Draw [address] [facility] [place] [place] [address] 06/04/2024 11:00 AM EST Office Visit Hematology/Oncology [facility] 200 [facility], [place] [address] Morgan Vásquez MD 200 [facility] [address] 07/28/2024 7:00 AM EDT Office Visit Neurology [facility] 200 [facility] [place], [place] [address] Sandrita Pineda PA-C [address] [place] [address] 09/02/2024 8:20 AM EDT Office Visit Pulmonary Medicine, [facility] [address] [place] [address] Ish Caba MD [address] [place] [address] 05/03/2025 7:40 AM EST Office Visit Dermatology [address] [place] [address] Albina Romo PA-C [address] [place] [address] [place] [address] Health Maintenance Due Date Last Done Comments [...] this encounter Medical Devices Implanted Type Area Lye Machine Operator Device Identifier Shelf Expiration Date Model / Serial / Lot Mesh Plug Xlarge [id number] - [id number] Implanted:Qty: 1 on 12/09/2020 by John Zaragoza MD at OR [facility] Left: Groin CR BARD : DAVOL 05/09/2023 [id number] / / [id number] documented as of this encounter Visit Diagnoses [...] PRN Other, Hypersensitivity Reaction, Starting on Lilibeth 03/12/24 at 0847, Until Sat03/13/24 at 0846, For 24 hours EPINEPHrine 1 MG/ML inj 0.3 mg 0.3 mg, Intramuscular, ONCE PRN Other, Hypersensitivity Reaction or Anaphylaxis, Starting on Lilibeth 03/12/24 at 0847, Until Sat03/13/24 at 0846, For 24 hours hEParin 100 UNIT/ML Lock Flush inj 500 Units 500 Units (5 mL), IV Lock, PRN Other, IV Flush, Starting on Lilibeth 03/12/24 at 0847, Until Sat03/13/24 at 0846, For 24 hours, Do not flush if lock, PICC, or central line not in place; IV infusing or unable to flush. Hydrocortisone Sod Suc (PF) (Solu-Cortef) inj 100 mg 100 mg, IV Push, ONCE PRN Other, Hypersensitivity Reaction, Starting on Lilibeth 03/12/24 at 0847, Until Sat03/13/24 at 0846, For 24 hours meperidine (Demerol) 25 MG/ML inj 25 mg 25 mg, IV Push, ONCE PRN Shivering, Starting on Lilibeth 03/12/24 at 0847, Until Sat03/13/24 at 0846, For 24 hours NSS infusion FOR HYDRATION Intravenous, at 50 mL/hr Administer over 10 Hours, CONTINUOUS, Starting on Lilibeth 03/12/24 at 0930, Until Discontinued Start Infusion 03/12/2024 8:49 AM EDT 500 mL 50 mL/hr sodium chloride 0.9 % flush central line 10 mL 10 mL, IV Push, PRN Other, IV Flush, Starting on Lilibeth 03/12/24 at 0847, Until Sat03/13/24 at 0846, For 24 hours, Do not flush if [...] 8:52 AM EDT 1,000 mL 500 mL/hr ondansetron (Zofran) tab [...] Power of Attor coco? No Care Teams Tanner Rotary Drum Continuous Process Relationship Specialty Start Date End Date Michael Collins MD [address] [place] [address] [place] [address] PCP - General Internal Medicine 03/01/14 documented as of this encounter
--- OUTSIDE RECORDS SUMMARY | 2024-03-26 16:15 | External Medical Summary | Summary of Care ---
Author Name Unknown Organization [facility] Address [address] [facility] [place] [address] Phone [phone] Care Team Providers Care Entry Level Chemist Name Role Phone Michael Collins MD Primary Care Provi zehra Reason for Referral * Precert (Within 24 hrs (call dept; emergent)) - Authorized Specialty Diagnoses / Procedures Referred By Contac t Referred To Contact Radiology Diagnoses Multiple myeloma not having achieved remission (HCC) Epigastric pain Procedures CT ABD/PELVIS W IV AND W ORAL CONTRAST Morgan Vásquez MD [address] [place] [address] Referral ID Status Reason Start Date Expiration Date V isits Requested Visits Authorized [id number] Authorized 03/05/2024 999 999 Reason for Visit * Reason Comments Treatment Encounter Details Date Type Department Care Team (Late st Contact Info) Description 03/05/2024 10:45 AM EDT Office Visit Hematology/Oncology [facility] [address] [phone] Morgan Vásquez MD [address] [address] Multiple myeloma not having achieved remission (HCC)*; Epigastric pain Allergies No known active allergiesdocumented as of this encounter (statuses as of 03/05/2024) Medications Medication Sig Dispensed Refills Start Date End Date Status THEOPHYLLINE ER 450 MG PO [id number] tablet at bedtime Take by mouth. Indications: [...] at bedtime. PATIENT INFORMATION: Kris Galvin [address] [place] [address] [employer]: [employer] ORDER: Please start nocturnal oxygen via nasal [...] signed) Ish Caba MD Pulmonary Medicine, [address] [place] [address] [facility] Medical License Number: [id number] 1 Each 09/21/2022 Active metFORMIN HCl ER [...] as of this encounter (statuses as of 03/05/2024) Active Problems Problem Noted Date Diagnosed Date Nocturnal hypoxemia 09/02/2023 ILD (interstitial lung disease) 08/28/2022 Prothrombin gene mutation 08/28/2022 Asthma, moderate persistent 08/28/2022 Intermittent asthma with reliever use up to twic e per week 08/28/2022 Impingement syndrome of both shoulders Primary osteoarthritis, left shoulder 04/09/2022 Greater trochanteric bursitis of right hip 11/28 /2022 Primary osteoarthritis of both knees 07/14/2021 Primary [...] as of this encounter (statuses as of 03/05/2024) Resolved Problems Problem Noted Date Diagnosed Date Resolved Date Asthma in remission 08/28/2022 08/29/19 Asthma, mild persistent 08/28/202208/11 Asthma, severe persistent 08/28/2022 Stem cell transplant candidate 08/17/2019 09/02/2019 documented as of this encounter (statuses as of 03/05/2024) Immunizations Name Administration Dates Next Due COVID-19 mRNA, LNP-s, No Pre serve, 2-Dose Series ([employer]) 01/17/2021,08/05/2020,07/08/2020 COVID-19, LNP-s, No Preserve , Bryant-sucrose, Ages 12+ ([employer]) 09/26/2021 COVID-19, MRNA-LNP, 23-24, P F, 30 [...] Sign Reading Time Taken Comments Blood Pressure 126/85 03/05/2024 10:29 AM EDT Pulse 93 03/05/2024 10:29 AM EDT Temperature 36.8 C (98.3 F) 03/05/2024 10:29 AM E DT Respiratory Rate - - Oxygen Saturation 91% 03/05/2024 10:29 AM EDT Inhaled Oxygen Concentration - - Weight 128.4 kg (283 lb) 03/05/2024 10:29 AM EDT Height - - Body Mass Index 38.38 10/11/2023 9:26 AM EDT documented in this [...] No 08/31/2019 documented as of this encounter Progress Notes * Morgan Vásquez MD - 03/05/2024 10:45 AM EDT Hematology/Oncology Outpatient Clinic [place] [address] Name: Kris Galvin Date: 08/21/2023 CHIEF COMPLAINT: Kris Galvin is a 57 year old male here today for f/u visit today. HEMATOLOGY/ONCOLOGY DIAGNOSIS: IgG kappa multiple myeloma, no bone lesions Myeloma FISH --> negative -ISS and revised ISS staging --> stage II. Shayy positive for IgG, negative for C3, no evidence of hemolysis. - positive heterozygous for the prothrombin gene and also was found to have a 2 abnormal alleles ofa MTHFR is gene. -No thrombotic complications the past. 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 Ultrasound-guided FNA of the palpable left supraclavicular lymph node on 09/25/2023 --> kappa restricted plasma cells, consistent with involvement of the plasma cell neoplasm DATE OF DIAGNOSIS: April 2019 TREATMENT HISTORY: - Lenalidomide maintenance at 10 mg per day without any break. (08/18/2020- 12/29/2020, discontinued because of disease progression.) Ninlaro (Ixazomib) 4 mg prophylaxis once a week for 3 weeks followed by 1 week off. He took Ninlaro(Ixazomib) for about 1 year. It was discontinue because of progression of the disease noted with M spike increased to around 0.82 g/dL as of July 2020. -he had autologous stem cell transplant at [facility] on 09/01/2019. - Induction treatment with Revlimid, Velcade and Decadron between 05/11/2019- 08/31/2019. (IgG level dropped down from 8300 --> 638 before the stem cell transplant, free kappa light chain dropped down from 646 --> 25, M spike dropped down from 5.98 --> 0.37 g/dL). CURRENT TREATMENT: -Subcutaneous daratumumab started 01/12/2021 - Continued Darzalex Faspro every monthly which he was on earlier ( since 01/2021). - Cytoxan 300 mg/m weekly started on 10/24/2023. - Decadron 40 mg once a week. DIAGNOSTIC WORKUP: He had protein electrophoresis done on 21 February 2018 and shows that there is a restricted band M spike in the gammaglobulin region. He had a serum and urine immunofixation done which shows presenceof IgG kappa monoclonal gammopathy. CBC was done which shows a normal hemoglobin and platelet countand normal white cell counts. Metabolic profile was also negative with normal creatinine and calcium. Patient has history of back pain and he had prolapse disc and had operation done. He had a recent a myeloma workup done on 04/08/2019 and 24 hour urine collection shows a monoclonalintact immunoglobulins presents, no monoclonal free light chain detected. A monoclonal IgG kappa gammopathy is present. Serum protein electrophoresis shows significant increase in M spike to 5.98. [place] and lambda shows significant increase in the kappa quantity to 646 with a ratio 401. There is also a significant increase in the IgG level to 8003 and 63. Immunofixation also consistent with monoclonal IgG kappa gammopathy. Beta 2 microglobulin also increased to 3.29. Patient had a skeletal survey done on 09/06/2018 and it was negative for any osteolytic lesions. Component Latest Ref Rng & Units 07/07/2018 08/25/2018 04/06/2019 BETA 2 MICROGLOBULIN <=2.51 mg/L 2.08 1.99 3.29 (H) Component Latest Ref Rng & Units 07/07/2018 08/25/2018 10/27/2018 04/06/2019 IGG 700 - 1,600 mg/dL 3,104 (H) 3,429 (H) 3,460 (H) 8,363 (H) IGA 70 - 400 mg/dL 19 (L) 19 (L) 17 (L) 11 (L) IGM 40 - 230 mg/dL 9 (L) 8 (L) 10 (L) 6 (L) Component Latest Ref Rng & Units 07/07/2018 08/25/2018 10/27/2018 04/06/2019 KAPPA QUANT 3.30 - 19.40 mg/L 314.32 (H) 321.47 (H) 347.89 (H) 646.00 (H) LAMBDA QUANT 5.71 - 26.30 mg/L 1.81 (L) 1.69 (L) 1.62 (L) 1.61 (L) KAPPA LAMBDA RATIO 0.26 - 1.65 173.66 (H) 190.22 (H) 214.75 (H) 401.24 (H Bone marrow (04/17/2019: -hypercellular bone marrow, plasma cell myeloma representing 70% of bone marrow cellularity. -FISH negative. -Normal male chromosomes. Myeloma FISH panel: Results: Negative Interpretation: Del(1p): Not Detected Dup(1q): Not Detected Del(13q): Not Detected t(4;14): Not Detected t(11;14): Not Detected t(14;16): Not Detected t(14;20): Not Detected Del(17p)(TP53): Not Detected PET-CT scan (04/15/2019) -no metabolic active bone lesions noted. ISS and revised ISS staging --> stage II. Bone marrow examination done on 08/07/2019 bone marrow exam done on 08/07/2019: -focal atypical plasma cell infiltrates in the bone marrow biopsy noted. PATHOLOGY: OTHER IMPORTANT HISTORY: - In December of 2011 he was seen by Dr. Qureshi because he was found on MRI of the brain multiple smallinfarcts in a watershed pattern. He underwent workup to rule out underlying hypercoagulable state and was found to be positive heterozygous for the prothrombin gene and also was found to have a 2 abnormal alleles of a MTHFR is gene. -No thrombotic complications the past. Presently he is on aspirin twice a day. -multiple joint pain, he is on meloxicam. -COPD, discontinue smoking habit many years back, not on oxygen treatment, on inhaler r treatment. -free kappa light chain --> 32, free lambda light chain --> 8.4, [place]/Lambda ratio 3.8. (07/29/2020). -IgG 1163, IgA 44, IgM 16 (07/29/2020). -M spike --> 0.46 (May 2020) --> 0.82 (07/29/2020). Bone marrow examination (07/29/2020: Non-remission myeloma. -plasma cells roughly between 10 to 15%. -Normal male chromosome -myeloma FISH --> negative. HISTORY OF PRESENT ILLNESS: He has come the clinic for the follow-up, accompanied by his in the office. Currently she is on IV cyclophosphamide every weekly, Decadron 40 mg every weekly, we continue Darzalex Faspro every 4 weekly. He says that for the last 2 months or so he has some upper abdominal discomfort, increases with a 40 intake, frequent nausea, takes Zofran for the symptomatic treatment, fair appetite, current weightaround 283 lb, no fever, chronic musculoskeletal symptoms, he is on nasal cannula supplemental oxygen at 2 liters/minute, no bleeding from any sites. Slowly by himself, ECOG PS 1. 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 Concussion with loss of consciousness of 30 minutes or less 01/03/2012 Degeneration of lumbosacral intervertebral disc 04/14/2008 Encounter for antineoplastic chemotherapy 08/31/2019 Generalized osteoarthritis 04/14/2008 History of autologous stem cell transplant (HCC) 09/02/2019 T 0 = 09/01/2019 Preparative Regimen: Melphalan 200 mg/m2 Stem Cell Dose: 5.96 X 10^6 CD 34/kg INFORMATION 12/28/11 [place] Multiple myeloma not having achieved remission (HCC) 12/30/2020 Past Surgical History: Procedure Laterality Date BONE MARROW/STEMCELL XPLNT, AUTOLOG 09/01/2019 COLONOSCOPY, DIAGNOSTIC (RECTUM) 03/03/2018 normal, repeat 5 yrs/COLONOSCOPY FLEXIBLE PROXIMAL DIAGNOSTIC performed by Bryanna Alberts MD at ENDOSCOPY [facility] IR BIOPSY 08/07/2019 IR BIOPSY 12/04/2019 IR BIOPSY 07/29/2020 IR BIOPSY 09/25/2023 IR BIOPSY 10/11/2023 IR VENOUS ACCESS NON-MEDIPORT 08/24/2019 IR VENOUS ACCESS NON-MEDIPORT 09/21/2019 LAPAROSCOPY; CHOLECYSTECTOMY 2006 REPAIR INITIAL INGUINAL HERNIA REDUCIBLE AGE 5 OR MORE Left 12/09/2020 REPAIR INITIAL INGUINAL HERNIA REDUCIBLE AGE 5 OR MORE performed by John Zaragoza MD at OR [facility] Social History Socioeconomic History Marital status: Spouse name: Yvrose Number of children: 2 Years of education: Not on file Highest education level: Not on file Occupational History Employer: [employer] 10[employer] Tobacco Use Smoking status: Former Current packs/day: 0.00 Average packs/day: 1 pack/day for 5.5 years (5.5 ttl pk-yrs) Types: Cigarettes Start date: 11/1989 Quit date: 1995 Years since quittin.8 Smokeless tobacco: Never Vaping Use Vaping status: Never Used Substance and Sexual Activity Alcohol use: No Drug use: No Sexual activity: Not on file Other Topics Concern Not on file Social History Narrative Not on file Social Determinants of Health Financial Resource Strain: Not on file Food Insecurity: Not on file Transportation Needs: Not on file Social Connections: Unknown (10/29/2023) Social Connections How often do you feel lonely or isolated from those around you? (Adult - for ages 18 years and over): Not on file Housing Stability: Not on file Review of patient's allergies indicates: No Known Allergies Current Outpatient Medications Medication Sig Dispense Refill THEOPHYLLINE ER 450 MG PO TB12 Take by mouth. Indications: 2 tablet at bedtime B COMPLEX FORMULA 1 PO TABS Take by mouth. MULTIVITAMINS PO CAPS 1 daily FOLIC ACID 1 MG PO TABS Take by mouth daily. METOPROLOL XL TBCR 50 MG OR 1 tab daily hydrochlorothiazide (HYDRODIURIL) 25 MG Tablet Take 1 Tablet by mouth in the morning. 1 tab daily .5 losartan (COZAAR) 50 MG Tablet Take 1 Tablet by mouth in the morning. 1 tab daily. 5 VENTOLIN HFA 108 (90 BASE) MCG/ACT inhaler As needed 11 omega-3 1000 MG CAPS Take by mouth. Multiple Vitamins-Minerals ([facility] IMMUNITY SUPPORT) CHEW Take by mouth. traZODone (DESYREL) 150 MG Tablet Take 250 mg by mouth at bedtime. omeprazole (PRILOSEC) 40 MG CPDR Take 1 Capsule by mouth in the morning and 1 Capsule before bedtime. albuterol sulfate (PROVENTIL) (2.5 MG/3ML) 0.083% nebulizer solution INHALE 1 VIAL VIA NEBULIZER EVERY 6 HOURS NEEDED FOR SHORTNESS OF BREATH OR WHEEZING acetaminophen (TYLENOL EXTRA STRENGTH) 500 MG Tablet Take 1 Tab by mouth every 6 hours as needed for Pain or Fever. 30 Tab 0 zolpidem (AMBIEN) 5 MG Tablet Take 1 Tablet by mouth at bedtime as needed for Sleep. Aspirin 81 MG Oral Tablet Chewable Take 1 Tablet by mouth in the morning. Diphenoxylate-Atropine 2.5-0.025 MG Oral Tablet (Lomotil) TAKE 1 TABLET BY MOUTH 4 TIMES A DAY NEEDED FOR DIARRHEA 60 Tab 0 Sildenafil Citrate 100 MG Oral Tablet Clobetasol Propionate 0.05 % External Ointment (Temovate) Apply topically to affected area 2 times a day . 30 g 2 B Complex Formula 1 (Lipotrop) Oral Tablet Levalbuterol HCl 1.25 MG/3ML Inhalation Nebulization Solution (Xopenex) INHALE CONTENTS OF 1 VIAL (3ML) EVERY 6 HOURS oxygen IN GAS Administer 2 L/min(Oxygen) into nostril at bedtime. PATIENT INFORMATION: Kris Galvin [address] [place] [address] [employer]: [employer] ORDER: Please start nocturnal oxygen via nasal [...] (electronically signed) Ish Caba MD Pulmonary Medicine, [address] [address] [facility] Medical License Number: [id number] 1 Each 0 metFORMIN HCl ER (OSM) 500 MG Oral Tablet Extended Release 24 Hour 1 Tablet. oxyCODONE HCl 5 MG Oral Tablet (Oxy IR) TAKE 1 TAB BY MOUTH EVERY 6 HOURS NEEDED FOR PAIN Triamcinolone Acetonide 0.1 % External Cream (Aristocort) Apply 2x daily to rashes areas on trunk/arms/legs during winter time mostly. 454 g 0 Acyclovir 800 MG Oral Tablet (Zovirax) TAKE 1 TABLET BY MOUTH TWICE A DAY 180 Tablet 3 DULoxetine HCl 60 MG Oral Capsule Delayed Release Particles (Cymbalta) Take 1 Capsule by mouth in the morning and 1 Capsule before bedtime. 180 Capsule 1 dexAMETHasone 4 MG Oral Tablet (Decadron) Take 10 tablets once a week on weeks without Darzalex. Take 5 tablets on week of Darzalex injection. 35 Tablet 2 Prochlorperazine Maleate 10 MG Oral Tablet (Compazine) Take 1 Tablet by mouth every 6 hours as needed for Nausea. 60 Tablet 5 metFORMIN HCl ER 500 MG Oral Tablet Extended Release 24 Hour (Glucophage XR) Take 1 Tablet by mouthin the morning and 1 Tablet before bedtime. Ondansetron HCl 8 MG Oral Tablet (Zofran) TAKE 1 TABLET BY MOUTH EVERY 8 HOURS NEEDED FOR [id number] Tablet 1 Pregabalin 25 MG Oral Capsule (Lyrica) TAKE 1 CAPSULE BY MOUTH IN THE MORNING AND IN THE EVENING 60Capsule 4 Current Facility-Administered Medications Medication Dose Route Frequency Provider Last Rate Last Admin Albuterol Sulfate (Proventil) (2.5 MG/3ML) 0.083% inhalation solution 2.5 mg 2.5 mg Nebulizer PRN Ish Caba MD 2.5 mg at 08/29/23 0750 Albuterol Sulfate (Proventil) (5 MG/ML) 0.5% *conc* inhalation solution 2.5 mg 2.5 mg Nebulizer PRIsh Dumont MD REVIEW OF SYSTEMS: See HPI - otherwise negative OBJECTIVE: There were no vitals taken for this visit. PHYSICAL EXAM: ECOG: Performance Status 1 = 80-90% Symptoms but nearly ambulatory General Appearance: No acute distress HEENT: Normal - No oral or pharyngeal masses, ulceration or thrush noted Lymph Nodes: Small few left supraclavicular lymph node palpable measuring about 1 cm. Lungs/Thorax: Normal - Clear to auscultation Heart: Normal - Regular rate and rhythm, normal S1, S2, no appreciable murmurs Pulses/Extremities: Normal - 2+ throughout and symmetrical, no edema Neurologic: Normal - Grossly intact LABS: Blood workup done on 09/18/2023: -WBC 6200, H&H of 15.6/47.4, Platelet count [id number] -BUN/Creat: 21/1.1, Calcium 9.5, normal LFT. -Ig, IgA 21, IgM 12 -free kappa light chain --> 47.4, free lambda light chain--> 2.1, Calcium 22.1 -M spike --> 1.09 g/dL. Blood workup done on 12/11/2023: -WBC 4700, Hemoglobin and hematocrit -14.4/42, Platelet count [id number] -BUN/Creat: 18/1.0, Calcium 9.2, normal liver function test. -Ig, IgA 14, IgM 9. Blood workup done on 03/05/2024: -WBC 2700, Hemoglobin and hematocrit -14.3/43, [place] [address] -ANC 2000. -BUN/Creat: 19/1.2, Calcium 8.8 -AST 37, ALT 30, alkaline phosphatase 139, bilirubin level 0.4. Lipase level --> 18 IMAGING: PET/CT 08/13/23: IMPRESSION 1. No FDG avid metastatic disease. 2. A few prominent left supraclavicular lymph nodes with mild metabolic uptake, likely reactive. IMPRESSION/PLAN: IgG kappa multiple myeloma Encounter for chemotherapy CIPN Currently receiving SUBQ: Daratumumab 1,800 mg/hyaluronidase 30,000 units once every 4 weeks -tolerating well I reviewed with him regarding the recent the [facility] ER visit, CT scan findings, lucency noted in the L1 vertebral body measuring about 1.2 cm this is most likely related to the underlying myeloma diagnosis. Will rib fractures noted. He may have a lower rib/upper abdominal pain could be related to the old rib fracture. Reviewed his recent blood workup findings, slight increase in the free kappa light chain and M spike level noted, IgG level noted. I reviewed with him and his regarding the biopsy from the palpable left supraclavicular lymph node which is consistent with the myeloma involvement. No other active sites of disease noted in the recent PET-CT scan done in August of 2023. Bone marrow examination done on 10/11/2023 showed no morphologic evidence of the multiple myeloma. Earlier I planned for pomalidomide, Decadron and continuing with Darzalex Faspro but because of significant high co-payment with pomalidomide, he declined for that kind of treatment Now started him on IV Cytoxan, oral Decadron 40 mg once a day in October of 2023 and we continued every 4 weekly Darzalex Faspro. Gradual reduction of the M spike and free kappa light chain noted. I reviewed his myeloma blood workup done yesterday. Tolerated treatment without significant side effects, no new infectious complications. For the last 2 months he does complain of upper abdominal pain getting worse for the last 2 weeks, increases with a 40 intake, lipase level is in normal range, he had cholecystectomy in the past. I would like to proceed with CT scan of the abdomen and pelvis for further evaluation , it is negative, will consider for upper GI endoscopic evaluation. Will continue current treatment plan Will see him back in the clinic about [address] Morgan áVsquez Hem/Onc (This note was completed using the dictation program Fluency Direct. As such, there may be misspellings word substitutions, or other variations that should not change the essence of the clinical content of this encounter note. If there is need for further clarification, please direct questions to the provider listed above.) documented in this encounter Nursing Notes * Devora Stratton MED ASSIST - 03/05/2024 10:35 AM EDT Patient identifed by name and birthdate Do you have any concerns about pain management for today's visit? Yes. Patient instructed to discuss pain concerns with provider during the visit today Living Will or Advance Directive for Health Care as noted on the problem list. [facility] is a way you can talk to your provider on line through e-mail. Would you like to sign up? I can activate it for you? ALREADY ACTIVE Filed Vitals: 03/05/24 1029 BP: 126/85 Pulse: 93 Temp: 36.8 C (98.3 F) TempSrc: Tympanic SpO2: 91% Weight: 128.4 kg (283 lb) Patient was instructed to not get up on the exam table/exam chair until directed and assisted by their provider; patient is to remain seated in the chair/ wheelchair/ exam table/ exam chair for fall prevention and safety reasons. Patient is aware to have assistance to step down off exam table/exam chair with personnel. Patient voiced full comprehension of instructions. Pt reports having uncontrollable diarrhea. States he has been having pain in his stomach at a level8. States that he is unable to eat or wear pants due to the pain. Pt has lost 11lbs in the last twoweeks. * Devora Stratton MED ASSIST - 03/05/2024 10:33 AM EDT Patient identifed by name and birthdate Do you have any concerns about pain management for today's visit? Yes. Patient instructed to discuss pain concerns with provider during the visit today Living Will or Advance Directive for Health Care as noted on the problem list. [facility] is a way you can talk to your provider on line through e-mail. Would you like to sign up? I can activate it for you? ALREADY ACTIVE Filed Vitals: 03/05/24 1029 BP: 126/85 Pulse: 93 Temp: 36.8 C (98.3 F) TempSrc: Tympanic SpO2: 91% Weight: 128.4 kg (283 lb) Patient was instructed to not get up on the exam table/exam chair until directed and assisted by their provider; patient is to remain seated in the chair/ wheelchair/ exam table/ exam chair for fall prevention and safety reasons. Patient is aware to have assistance to step down off exam table/exam chair with personnel. Patient voiced full comprehension of instructions. documented in this encounter Plan of Treatment Upcoming Encounters Date Type Department Care Team (Late st Contact Info) Description 03/11/2024 7:05 AM EDT Laboratory Lab Mobile Phlebotomy [facility] [address] [place] [address] [facility] Draw [address] [place] [address] 03/12/2024 8:30 AM EDT Hem/Onc Treatment Hematology/Oncology Treatment, [place] [address] [place] [phone] Kenyatta, Chair 11 Hem Onc Scenery [address] [facility] [place] [address] 03/18/2024 7:05 AM EST Laboratory Lab Mobile Phlebotomy [facility] [address] [place] [address] [facility] Mobile Home Draw [address] [place] [address] 03/19/2024 8:00 AM EST Hem/Onc Treatment Hematology/Oncology Treatment, [place] [address] [facility] [phone] Kenyatta, Chair 5 Hem Onc Scenery 200 [place] [address] 03/25/2024 7:05 AM EST Laboratory Lab Mobile Phlebotomy [facility] [address] [place] [address] [facility], [facility] Mobile Home Draw [address] [place] [address] 03/26/2024 8:00 AM EST Hem/Onc Treatment Hematology/Oncology Treatment, [place] [address] [facility] [phone] Kenyatta, Chair 5 Hem Onc Scenery [address] [place] [address] 04/01/2024 7:00 AM EST Laboratory Lab Mobile Phlebotomy [facility] [address] [place] [address] [facility], [facility] Mobile Home Draw [address] [place] [address] 04/08/2024 7:05 AM EST Laboratory Lab Mobile Phlebotomy [facility] [address] [place] [address] [facility] Mobile Home Draw [address] [place] [address] 04/15/2024 7:05 AM EST Laboratory Lab Mobile Phlebotomy [facility] [address] [place] [address] [facility], [facility] Mobile Home Draw [address] [facility] [place] [address] 04/22/2024 7:05 AM EST Laboratory Lab Mobile Phlebotomy [facility] [address] [place] [address] [facility], [facility] Mobile Home Draw [address] [employer] [place], [place] [address] 04/29/2024 7:05 AM EST Laboratory Lab Mobile Phlebotomy [facility] [address] [facility] [place] [address] [facility], [facility] Mobile Home Draw [address] [facility] [place] [address] 05/05/2024 7:05 AM EST Laboratory Lab Mobile Phlebotomy [facility] [address] [facility] [place] [address] [facility], [facility] Mobile Home Draw [address] [facility] [place], [place] [address] 06/04/2024 10:45 AM EST Office Visit Hematology/Oncology [facility] [address] [facility] [place] [phone] Morgan Vásquez MD [address] [facility] [place] [address] 07/28/2024 7:00 AM EDT Office Visit Neurology [facility] [address] [facility] [place], [place] [address] Sandrita Pineda PAYeimy[facility] [address] [facility] [place] [address] 09/02/2024 8:20 AM EDT Office Visit Pulmonary Medicine, [facility] [address] [facility] [place] [address] Ish Caba MD [address] [facility] [facility] [place] [address] 05/03/2025 7:40 AM EST Office Visit Dermatology [address] [place] [address] Albina Romo PA-C [address] [place] [address] [place] [address] Health Maintenance Due Date Last Done Comments [...] this encounter Medical Devices Implanted Type Area Geometrician Device Identifier Shelf Expiration Date Model / Serial / Lot Mesh Plug Xlarge [id number] - [id number] Implanted:Qty: 1 on 12/09/2020 by John Zaragoza MD at OR [facility] Left: Groin CR BARD : DAVOL 05/09/2023 [id number] / / [id number] documented as of this encounter Results * CT ABD/PELVIS W IV AND W ORAL CONTRAST (03/05/2024 3:40 PM EDT) Anatomical Region Laterality Modality Body, Abdomen, Pelvis Computed T omography 03/05/2024 4:28 PM EDT Impressions 03/05/2024 4:25 PM EDT IMPRESSION 1. Mild T10 pathologic compression fracture new compared to 08/13/2023, secondary to a large lytic lesion occupying majority of the vertebral body. 2. Other small scattered lytic lesions throughout the visualized spine appears similar to 08/13/2023 but progressed compared to 09/12/2022. 3. Hepatosplenomegaly. Narrative 03/05/2024 4:25 PM EDT EXAM EXAM: CT ABD/PELVIS W IV AND W ORAL CONTRAST DATE and TIME: 03/05/2024 3:40 pm HISTORY CLINICAL INFORMATION: myeloma , c/o increasing upper abdominal pain for 2 weeks, nausea, TECHNIQUE Oral Contrast: Positive oral. IV Contrast: Intravenous contrast was administered COMPARISON PET-CT 08/13/2023, chest CT 09/12/2022 FINDINGS LINES AND DEVICES: None LOWER CHEST:There is mild bibasilar atelectasis. The heart is normal in size without pericardial effusion. ABDOMEN/PELVIS: LIVER: The liver is enlarged measuring 21.7 centimeters in length. There is no focal suspicious abnormality. GALLBLADDER: Cholecystectomy BILE DUCTS: No intrahepatic or extrahepatic bile duct dilatation. PANCREAS: Unremarkable. SPLEEN: Enlarged, measuring 14 cm in length. ADRENALS: Normal. KIDNEYS/URETERS: The kidneys are normal in size without hydronephrosis or suspicious mass. BLADDER: Unremarkable. REPRODUCTIVE ORGANS: Unremarkable. BOWEL: The small and large bowel is normal in caliber. Oral contrast has progressed to the transverse colon. The appendix is normal. LYMPH NODES: There are no enlarged or suspicious abdominal or pelvic lymph nodes. VESSELS: The aorta and the origins of its branches are patent and normal in caliber. There is mild atherosclerotic calcification. The portal venous system is grossly patent. PERITONEUM/RETROPERITONEUM: No free air, fluid, or mass. ABDOMINAL WALL/SOFT TISSUES: Small fat containing umbilical hernia. BONES: There is a mild T10 pathologic compression fracture which is new compared to 08/13/2023. This is secondary to a large lytic lesion occupying majority of the T10 vertebral body. Other small scattered lytic lesions throughout the visualized spine appears similar to 08/13/2023 but progressed compared to 09/12/2022. Degenerative changes in the spine. Mild retrolisthesis of L5 on S1. Procedure Note Omar Vásquez MD - 03/05/2024 EXAM EXAM: CT ABD/PELVIS W IV AND W ORAL CONTRAST DATE and TIME: 03/05/2024 3:40 pm HISTORY CLINICAL INFORMATION: myeloma , c/o increasing upper abdominal pain for 2weeks, nausea, TECHNIQUE Oral Contrast: Positive oral. IV Contrast: Intravenous contrast was administered COMPARISON PET-CT 08/13/2023, chest CT 09/12/2022 FINDINGS LINES AND DEVICES: None LOWER CHEST:There is mild bibasilar atelectasis. The heart is normal insize without pericardial effusion. ABDOMEN/PELVIS: LIVER: The liver is enlarged measuring 21.7 centimeters in length. Thereis no focal suspicious abnormality. GALLBLADDER: Cholecystectomy BILE DUCTS: No intrahepatic or extrahepatic bile duct dilatation. PANCREAS: Unremarkable. SPLEEN: Enlarged, measuring 14 cm in length. ADRENALS: Normal. KIDNEYS/URETERS: The kidneys are normal in size without hydronephrosis orsuspicious mass. BLADDER: Unremarkable. REPRODUCTIVE ORGANS: Unremarkable. BOWEL: The small and large bowel is normal in caliber. Oral contrast hasprogressed to the transverse colon. The appendix is normal. LYMPH NODES: There are no enlarged or suspicious abdominal or pelvic lymphnodes. VESSELS: The aorta and the origins of its branches are patent and normalin caliber. There is mild atherosclerotic calcification. The portalvenous system is grossly patent. PERITONEUM/RETROPERITONEUM: No free air, fluid, or mass. ABDOMINAL WALL/SOFT TISSUES: Small fat containing umbilical hernia. BONES: There is a mild T10 pathologic compression fracture which is newcompared to 08/13/2023. This is secondary to a large lytic lesionoccupying majority of the T10 vertebral body. Other small scattered lyticlesions throughout the visualized spine appears similar to 08/13/2023 butprogressed compared to 09/12/2022. Degenerative changes in the spine.Mild retrolisthesis of L5 on S1. IMPRESSION IMPRESSION 1. Mild T10 pathologic compression fracture new compared to 08/13/2023,secondary to a large lytic lesion occupying majority of the vertebralbody. 2. Other small scattered lytic lesions throughout the visualized spineappears similar to 08/13/2023 but progressed compared to 09/12/2022. 3. Hepatosplenomegaly. Morgan Vásquez MD RAD CT * LIPASE (03/04/2024 8:18 AM EDT) Lipase 18 13 - 60 U/L 03/05/2024 11:16 AM EDT LABORATORY GM Blood Venous blood specimen / Unknown Venipuncture / Unknown 03/04/2024 8:18 AM EDT 03/04/2024 11:37 AM EDT Morgan Vásquez MD LAB BLOOD ORDERABLES LABORATORY [facility] [place] [address] [place] [address] documented in this encounter Visit Diagnoses Diagnosis Multiple myeloma not having achieved remission (HCC)- Primary Multiple myeloma, without mention of having achieved remission Epigastric pain Abdominal pain, epigastric Multiple myeloma not having achieved remission (HCC) Multiple myeloma, without mention of having achieved remission Epigastric pain Abdominal pain, epigastric documented in this encounter Advance Directives * [...] Power of Attor coco? No Care Teams Entry Level Chemist Relationship Specialty Start Date End Date Michael Collins MD [address] [place], [place] [address] [address] PCP - General Internal Medicine 03/01/14 documented as of this encounter
--- OUTSIDE RECORDS SUMMARY | 2024-03-26 16:15 | External Medical Summary ---
Author Name Unknown Address Unknown Organization K01:LAB[facility]ATORY [facility] [place] [address] [place] [address] Laboratory Report Ordering Provider Test Date Status KALPESH SERRANO 03/11/2024 08:32:00 Final Observation Date Value Abnormality Reference (Units ) Status BUN 03/11/2024 08:32:00 17 6-20 (mg/dL) Final Creatinine 03/11/2024 08:32:00 1.0 0.6-1.2 (mg/dL) Final Glomerular filtration rate/1.73 sq M.predicted [Volume Rate/Area] in Serum, Plasma or Blood by Creatinine-based formula (CKD-EPI) 03/11/2024 08:32:00 85 >=60 (mL/min) Final eGFR is calculated based on the CKD-EPI 2020 equation. Sodium 03/11/2024 08:32:00 141 135-146 (m mol/L) Final Potassium 03/11/2024 08:32:00 3.7 3.5-5.1 (m mol/L) Final Cl 03/11/2024 08:32:00 99 98-107 (mm ol/L) Final CO2 03/11/2024 08:32:00 27 22-32 (mmo l/L) Final Anion gap 03/11/2024 08:32:00 15 7-15 (mmol /L) Final Glucose 03/11/2024 08:32:00 92 70-120 (mg /dL) Final Albumin 03/11/2024 08:32:00 4.3 3.8-5.0 (g /dL) Final AST (Aspartate aminotransferase) 03/11/2024 08:32:00 18 10-50 (U/L) Fin al Alk Phos 03/11/2024 08:32:00 108 35-130 (U/ L) Final Bilirubin, Total 03/11/2024 08:32:00 0.4 <=1 .2 (mg/dL) Final Calcium 03/11/2024 08:32:00 9.1 8.4-10.2 ( mg/dL) Final Protein 03/11/2024 08:32:00 5.8 Below low normal 6.0 -8.3 (g/dL) Final ALT (Alanine aminotransferase) 03/11/2024 08:32:00 16 10-50 (U/L) Regis figueroa Performing Location LAB[facility]ATORY [facility] [place] [facility] [address] Josselin Peña. [facility] [address]
--- OUTSIDE RECORDS SUMMARY | 2024-03-26 16:15 | External Medical Summary | Summary of Care ---
Author Name Unknown Organization [facility] Address [address] [facility] [place] [address] Phone [phone] Care Team Providers Care Food And Beverage Operations Manager Name Role Phone Michael Collins MD Primary Care Provi zehra Reason for Visit * Reason Onset Date Comments Medication Refill 03/06/2024 Encounter Details Date Type Department Care Team (Late st Contact Info) Description 03/06/2024 Refill Hematology/Oncology [facility] [place] 200 [facility] [place] [phone] Morgan Vásquez MD [address] [facility] [address] Multiple myeloma not having achieved remission (HCC) Allergies No known active allergiesdocumented as of this encounter (statuses as of 03/09/2024) Medications Medication Sig Dispensed Refills Start Date End Date Status THEOPHYLLINE ER 450 MG PO [id number]:2 tablet at bedtime Take by mouth. Indications: [...] Take by mouth. Active Multiple Vitamins-Minerals ([facility] IMMUNITY SUPPORT) CHEW Take by mouth. [...] nostril at bedtime. PATIENT INFORMATION: Kris Galvin [address] [place] [address] [employer] EQUIPMENT Quotient Biodiagnostics: [employer]/TBD ORDER: Please start nocturnal oxygen via nasal [...] (electronically signed) Ish Caba MD Pulmonary Medicine, [address] [place] [address] [place] [facility] Medical License Number: [id number] 1 Each 09/21/2022 Active metFORMIN HCl ER [...] Darzalex injection. 35 Tablet 2 03/09/2024 Active dexAMETHasone 4 MG Oral Tablet (Decadron)Indicat ions:Multiple myeloma not having achieved remission (HCC) Take 10 tablets once a week on weeks without Darzalex. Take 5 tablets on week of Darzalex injection. 35 Tablet 2 10/08/2023 4 Discontinu ed(Refill) Hospital, Clinic, or Other Facility [...] as of this encounter (statuses as of 03/09/2024) Active Problems Problem Noted Date Diagnosed Date [...] as of this encounter (statuses as of 03/09/2024) Resolved Problems Problem Noted Date Diagnosed Date Resolved Date Asthma in remission 08/28/2022 08/29/19 Asthma, mild persistent 08/28/202208/11 Asthma, severe persistent 08/28/2022 Stem cell transplant candidate 08/17/2019 09/02/2019 documented as of this encounter (statuses as of 03/09/2024) Immunizations Name Administration Dates Next Due COVID-19 mRNA, LNP-s, No Pre serve, 2-Dose Series ([email or web address]) 01/17/2021,08/05/2020,07/08/2020 COVID-19, LNP-s, No Preserve , Bryant-sucrose, Ages 12+ ([employer]) 09/26/2021 COVID-19, MRNA-LNP, 23-24, P F, 30 [...] Telephone Encounter - Morgan Vásquez MD - 03/09/2024 8:00 AM EDT E-prescribed Decadron. documented in this encounter Plan of Treatment Upcoming Encounters Date Type Department Care Team (Late st Contact Info) Description 03/11/2024 7:05 AM EDT Laboratory Lab Mobile Phlebotomy [facility] [address] [place] [address] [facility], [facility] Home Draw [address] [place] [address] 03/12/2024 8:30 AM EDT Hem/Onc Treatment Hematology/Oncology Treatment, [place] [address] [place] [address] Park, Chair 11 Hem Onc Scenery [address] [place] [address] 03/13/2024 2:30 PM EDT Imaging Radiology [address] [place] [address] 03/18/2024 7:05 AM EST Laboratory Lab Mobile Phlebotomy [facility] [address] [place] [address] Mvmg, Gml Mobile Home Draw [address] [place] [address] 03/19/2024 8:00 AM EST [facility] [address] [facility] [place] [phone] Kenyatta, Chair 5 Hem Onc Scenery 200 [place] [address] 03/25/2024 7:05 AM EST Laboratory Lab Mobile Phlebotomy [facility] [address] [place] [address] Mvmg, Gml Mobile Home Draw [address]20 [place] [address] 03/26/2024 8:00 AM EST [facility] [address] [facility] [place] [phone] Kenyatta, Chair 5 Hem Onc Scenery 200 [place] [address] 04/01/2024 7:00 AM EST Laboratory Lab Mobile Phlebotomy [facility] [address] [place] [address] Mvmg, Gml Mobile Home Draw [address] [place] [address] 04/08/2024 7:05 AM EST Laboratory Lab Mobile Phlebotomy [facility] [address] [place] [address] Mvmg, Gml Mobile Home Draw [address] [place] [address] 04/15/2024 7:05 AM EST Laboratory Lab Mobile Phlebotomy [facility] [address] [place] [address] Mvmg, Gml Mobile Home Draw [address] [place] [address] 04/22/2024 7:05 AM EST Laboratory Lab Mobile Phlebotomy [facility] [address] [place], [place] [address] Mvmg, Gml Mobile Home Draw [address] [facility] [place], [place] [address] 04/29/2024 7:05 AM EST Laboratory Lab Mobile Phlebotomy [facility] [address] [facility] [place], [place] [address] Mvmg, Gml Mobile Home Draw [address] [facility] [place], [place] [address] 05/05/2024 7:05 AM EST Laboratory Lab Mobile Phlebotomy [facility] [address] [facility] [place], [place] [address] Mvmg, Gml Mobile Home Draw [address] [facility] [place], [place] [address] 06/04/2024 10:45 AM EST Office Visit Hematology/Oncology [facility] [address] [facility] [phone] Morgan Vásquez MD 200 [facility], [place] [address] 07/28/2024 7:00 AM EDT Office Visit Neurology [facility] 200 [facility] [address] Sandrita Pineda PA-C [address] [facility] [place] [address] 09/02/2024 8:20 AM EDT Office Visit Pulmonary Medicine, [facility] 132 [facility] [place] [address] Ish Caba MD [address] [place] [address] 05/03/2025 7:40 AM EST Office Visit Dermatology [address] [place] [address] Albina Romo, PA-C [address] [place] [address] [place] [address] Health Maintenance Due Date Last Done Comments [...] this encounter Medical Devices Implanted Type Area Non Profit Director Device Identifier Shelf Expiration Date Model / Serial / Lot Mesh Plug Xlarge [id number] - [id number] Implanted:Qty: 1 on 12/09/2020 by John Zaragoza MD at OR [facility] Left: Groin CR BARD : LUCINDA 05/09/2023 [id number] / / [id number] documented as of this encounter Visit Diagnoses Diagnosis Multiple myeloma not having achieved remission (HCC) Multiple myeloma, without mention of having achieved remission documented in this encounter Advance Directives * [...] Power of Attor coco? No Care Teams Food And Beverage Operations Manager Relationship Specialty Start Date End Date Michael Collins MD [address] [place] [address] [place] [address] PCP - General Internal Medicine 03/01/14 documented as of this encounter
--- OUTSIDE RECORDS SUMMARY | 2024-03-26 16:15 | External Medical Summary | Summary of Care ---
Author Name Unknown Organization [facility] Address [address] [facility] [address] Phone [phone] Care Team Providers Care Crap Game Box Person Name Role Phone Michael Collins MD Primary Care Provi zehra Reason for Visit * Reason Onset Date Comments Test Results Imaging Study 03/16/2024 Encounter Details Date Type Department Care Team (Late st Contact Info) Description 03/16/2024 Telephone Hematology/Oncology Treatment, [place] [address] [facility] [place] [address] Morgan Vásquez MD 200 [place] [address] Test Results Imaging Study Allergies No known active allergiesdocumented as of this encounter (statuses as of 03/16/2024) Medications Medication Sig Dispensed Refills Start Date End Date Status THEOPHYLLINE ER 450 MG PO [id number]:2 tablet at bedtime Take by mouth. Indications: [...] CAPS Take by mouth. Active Multiple Vitamins-Minerals ([facility] IMMUNITY SUPPORT) CHEW Take by [...] nostril at bedtime. PATIENT INFORMATION: Kris Galvin [address] [place] [address] [employer] EQUIPMENT Noitavonne: [employer]/TBD ORDER: Please start nocturnal oxygen via nasal [...] (electronically signed) Ish Caba MD Pulmonary Medicine, [address] [place] [address] [place] [facility] Medical License Number: [id number] 1 Each 09/21/2022 Active metFORMIN HCl ER [...] patient. Radiology: please push MRI images to [facility]. Thanks! * Telephone Encounter - Eleanor Crawford [...] AM EST Laboratory Lab Mobile Phlebotomy [facility] [address] [place] [address] Mvmg, Gml Mobile Home Draw [address] [place] [address] 03/19/2024 8:00 AM EST Hem/Onc Treatment Hematology/Oncology Treatment, [place] 200 [place] [phone] Park, Chair 5 Hem Onc Scenery 200 [place] [address] 03/25/2024 7:05 AM EST Laboratory Lab Mobile Phlebotomy [facility] [address] [place] [address] Mvmg, Gml Mobile Home Draw [address] [facility] [place] [address] 03/26/2024 8:00 AM EST Hem/Onc Treatment Hematology/Oncology Treatment, [place] 200 [place] [phone] Kenyatta, Chair 5 Hem Onc Scenery 200 [place] [address] 04/01/2024 7:00 AM EST Laboratory Lab Mobile Phlebotomy [facility] [address] [place] [address] Mvmg, Gml Mobile Home Draw [address] [place] [address] 04/08/2024 7:05 AM EST Laboratory Lab Mobile Phlebotomy [facility] [address] [facility] [place] [address] Mvmg, Gml Mobile Home Draw [address] [facility] [place] [address] 04/15/2024 7:05 AM EST Laboratory Lab Mobile Phlebotomy [facility] [address] [place] [address] Mvmg, Gml Mobile Home Draw [address] [place] [address] 04/22/2024 7:05 AM EST Laboratory Lab Mobile Phlebotomy [facility] [address] [place] [address] Mvmg, Gml Mobile Home Draw [address] [place] [address] 04/29/2024 7:05 AM EST Laboratory Lab Mobile Phlebotomy [facility] [address] [employer] [place] [address] Mvmg, Gml Mobile Home Draw 25[address] [facility] [place] [address] 05/05/2024 7:05 AM EST Laboratory Lab Mobile Phlebotomy [facility] [address] [facility] [place] [address] Mvmg, Gml Mobile Home Draw 0 [facility] [place] [address] 06/04/2024 11:00 AM EST Office Visit Hematology/Oncology [facility] [address] [place] [phone] Morgan Vásquez MD [address] [place] [address] 07/28/2024 7:00 AM EDT Office Visit Neurology [facility] [address] [place] [address] Sandrita Pineda PAManolo [facility] [place] [address] 09/02/2024 8:20 AM EDT Office Visit Pulmonary Medicine, [facility] 132 [facility] [place] [address] Ish Caba MD [address] [facility] [address] 05/03/2025 7:40 AM EST Office Visit Dermatology [address] [place] [address] Albina Romo PA-C [address] [place] [address] [place] [address] Health Maintenance Due Date Last Done Comments [...] this encounter Medical Devices Implanted Type Area Patent Engineer Device Identifier Shelf Expiration Date Model / Serial / Lot Mesh Plug Xlarge [id number] - [id number] Implanted:Qty: 1 on 12/09/2020 by John Zaragoza MD at OR [facility] Left: Groin CR BARD : DAVOL 05/09/2023 [id number] / / [id number] documented as of this encounter Advance Directives [...] Power of Attor coco? No Care Teams Crap Game Box Person Relationship Specialty Start Date End Date Michael Collins MD [address] [place] [address] [place] [address] PCP - General Internal Medicine 03/01/14 documented as of this encounter
--- OUTSIDE RECORDS SUMMARY | 2024-03-26 16:16 | External Medical Summary | Summary of Care ---
Author Name Unknown Organization [facility] Address [address] [place] [address] Phone [phone] Care Team Providers Care Rn Hemodialysis Name Role Phone Michael Collins MD Primary Care Provi zehra Encounter Details Date Type Department Care Team (Late st Contact Info) Description 03/02/2024 Orders Only Outcomes Research Department [address], [place] [id number] Nohemi Live CHRA MyCode Research Other*[id number] Allergies No known active allergiesdocumented as of this encounter (statuses as of 03/02/2024) Medications Medication Sig Dispensed Refills Start Date End Date Status THEOPHYLLINE ER 450 MG PO TU15Ctugqkmwhgd:2 tablet at bedtime Take by mouth. Indications: [...] CAPS Take by mouth. Active Multiple Vitamins-Minerals ([facility] IMMUNITY SUPPORT) CHEW Take by mouth. [...] nostril at bedtime. PATIENT INFORMATION: Kris Kamar [address] [place] [address] [employer]: [employer] ORDER: Please start nocturnal oxygen via nasal [...] (electronically signed) Ish Caba MD Pulmonary Medicine, [address] [place] [address] [place] [facility] Medical License Number: [id number] 1 Each 09/21/2022 Active metFORMIN HCl ER [...] as of this encounter (statuses as of 03/02/2024) Active Problems Problem Noted Date Diagnosed Date [...] as of this encounter (statuses as of 03/02/2024) Resolved Problems Problem Noted Date Diagnosed Date Resolved Date Asthma in remission 08/28/2022 08/29/19 Asthma, mild persistent 08/28/202208/11 Asthma, severe persistent 08/28/2022 Stem cell transplant candidate 08/17/2019 09/02/2019 documented as of this encounter (statuses as of 03/02/2024) Immunizations Name Administration Dates Next Due COVID-19 mRNA, LNP-s, No Pre serve, 2-Dose Series ([employer]) 01/17/2021,08/05/2020,07/08/2020 COVID-19, LNP-s, No Preserve , Bryant-sucrose, Ages 12+ (Inside [employer]) 09/26/2021 COVID-19, MRNA-LNP, 23-24, P F, 30 [...] No 08/31/2019 documented as of this encounter Plan of Treatment Upcoming Encounters Date Type Department Care Team (Late st Contact Info) Description 03/04/2024 7:00 AM EDT Laboratory Lab Mobile Phlebotomy [facility] [address] [place] [address] [facility], Gml Mobile Home Draw [address] [place] [address] 03/05/2024 10:45 AM EDT Office Visit Hematology/Oncology [facility] [address] [facility] [place] [phone] Morgan Vásquez MD [address] [facility] [place] [address] 03/05/2024 11:15 AM EDT Hem/Onc Treatment Hematology/Oncology Treatment, [place] [address] [facility] [address] [place], [place] [phone] Kenyatta, Chair 3 Hem On[address] [place], [place] [address] 03/11/2024 7:05 AM EDT Laboratory Lab Mobile Phlebotomy [facility] [address] [place] [address] Mvmg, Gml Mobile Home Draw [address] [place], [place] [address] 03/18/2024 7:05 AM EST Laboratory Lab Mobile Phlebotomy [facility] [address] [place] [address] Mvmg, Gml Mobile Home Draw [address] [place] [address] 03/25/2024 7:05 AM EST Laboratory Lab Mobile Phlebotomy [facility] [address] [place] [address] [address] Mvmg, Gml Mobile Home Draw [address] [facility] [place] [address] 04/01/2024 7:00 AM EST Laboratory Lab Mobile Phlebotomy [facility] [address] [facility] [place] [address] Mvmg, Gml Mobile Home Draw [address] [facility] [place] [address] 04/08/2024 7:05 AM EST Laboratory Lab Mobile Phlebotomy [facility] [address] [facility] [place] [address] Mvmg, Gml Mobile Home Draw [address] [place] [address] 04/15/2024 7:05 AM EST Laboratory Lab Mobile Phlebotomy [facility] [address] [place] [address] Mvmg, Gml Mobile Home Draw [address] [facility] [place] [address] 04/22/2024 7:05 AM EST Laboratory Lab Mobile Phlebotomy [facility] [address] [facility] [place] [address] Mvmg, Gml Mobile Home Draw [address] [facility] [place] [address] 04/29/2024 7:05 AM EST Laboratory Lab Mobile Phlebotomy [facility] [address] [facility] [place] [address] Mvmg, Gml Mobile Home Draw [address] [place] [address] 05/05/2024 7:05 AM EST Laboratory Lab Mobile Phlebotomy [facility] [address] [place] [address] Mvmg, Gml Mobile Home Draw [address] [facility] [place] [address] 07/28/2024 7:00 AM EDT Office Visit Neurology [facility] [address] [facility] [place] [address] Sandrita Pineda PA-C [address] [place] [address] 09/02/2024 8:20 AM EDT Office Visit Pulmonary Medicine, [facility] [address] [place] [address] Ish Caba MD [address] [place] [address] 05/03/2025 7:40 AM EST Office Visit Dermatology [address] [place] [address] Albina Romo PA-C [address] [place] [address] [place] [address] Scheduled Orders Name Type Priority Associated Diagnoses Orde r Schedule MYCODE SUBSEQUENT ADULT Lab Routine MyCode Research Other*[id number] Every 6 Months for 2 Occurrences starting 03/02/2024 until 03/22/2025 Health Maintenance Due Date Last Done Comments Depression Screening 1976 Albumin/Creatinine Ratio 1982 Cologuard 2009 Fecal Occult Blood Test 2009 Sigmoidoscopy 2009 Colonoscopy 03/03/2023 03/03/2018, 03/03/2018 Colorectal Cancer Screening 03/03/2023 Lipid Panel 11/18/2024 11/19/2019, 07/11, 07/29/2009 GFR 02/25/2025 02/26/2024, 06/2023, 02/05/2024, Additional history exists Diabetes Screening 02/25/2027 02/26/2024, 1 , 02/05/2024, Additional history exists DTap/Tdap Vaccines (4 - [...] this encounter Medical Devices Implanted Type Area Emergency Medical Tech Device Identifier Shelf Expiration Date Model / Serial / Lot Mesh Plug Xlarge [id number] - [id number] Implanted:Qty: 1 on 12/09/2020 by John Zaragoza MD at OR [facility] Left: Groin CR BARD : DAVOL 05/09/2023 [id number] / / [id number] documented as of this encounter Visit Diagnoses Diagnosis MyCode Research Other*[id number] documented in this encounter Advance Directives * [...] Power of Attor coco? No Care Teams Rn Hemodialysis Relationship Specialty Start Date End Date Michael Collins MD [address] [place] [address] [place] [address] PCP - General Internal Medicine 03/01/14 documented as of this encounter
--- OUTSIDE RECORDS SUMMARY | 2024-03-26 16:16 | External Medical Summary ---
Author Name Unknown Address Unknown Organization K01:LABORATORY [facility] - [address] [facility] [address] Laboratory Report Ordering Provider Test Date Status KALPESH SERRANO 03/04/2024 08:18:00 Final Observation Date Value Abnormality Reference (Units ) Status WBC, Total 03/04/2024 08:18:00 2.76 Below low normal 4.00-10.80 (K/uL) Final RBC 03/04/2024 08:18:00 4.04 4.50-5.25 (M/uL) Final Hemoglobin 03/04/2024 08:18:00 14.3 14.0-16.8 (g/dL) Final HCT 03/04/2024 08:18:00 43.3 40.0-48.4 (%) Final MCV 03/04/2024 08:18:00 107.2 82.0-99.5 (fL) Final MCH 03/04/2024 08:18:00 35.4 27.0-34.0 (pg) Final MCHC 03/04/2024 08:18:00 33.0 32.0-36.0 (g/dL) Final RDW 03/04/2024 08:18:00 14.1 11.5-15.5 (%) Final Platelets 03/04/2024 08:18:00 89 Below low normal 140-400 (K/uL) Final MPV 03/04/2024 08:18:00 10.0 6.6-11.1 (fL) Final Nucleated erythrocytes/100 leukocytes [Ratio] in Blood by Automated count 03/04/2024 08:18:00 0 <=0 (/100 WBCs) Final Performing Location LABORATORY [facility] - [address] [facility] [address]
--- OUTSIDE RECORDS SUMMARY | 2024-03-26 16:16 | External Medical Summary ---
Author Name Unknown Address Unknown Organization K01:[facility]ORY [facility] - [facility] [address] [place] [address] Laboratory Report Ordering Provider Test Date Status KALPESH SERRANO 03/04/2024 08:18:00 Final Observation Date Value Abnormality Reference (Units ) Status Regal light chains, Free, Serum 03/04/2024 08:18:00 5.70 3.30-19.40 (mg/L) Final Lambda light chains, free, Serum 03/04/2024 08:18:00 1.27 Below low normal 5.71-26.30 (mg/L) Final KAPPA LAMBDA FLC RATIO 03/04/2024 08:18:00 4.49 Above high normal 0.26-1.65 Final Performing Location LABORATORY [facility] - [address] [place] [address]
--- OUTSIDE RECORDS SUMMARY | 2024-03-26 16:16 | External Medical Summary | Summary of Care ---
Author Name Unknown Organization [facility] Address [address] [facility] [address] Phone [phone] Care Team Providers Care Box Sealing Machine Feeder Name Role Phone Michael Collins MD Primary Care Provi zehra Reason for Visit * Reason Comments Chemotherapy C42, D 1 Cytoxan and Darzalax Faspro * Episode Based Medications (Routine) - Authorized Specialty Diagnoses / Procedures Referred By Contac t Referred To Contact Diagnoses Multiple myeloma not having achieved remission (HCC) Procedures UT DARATUMUMAB, HYALURONIDASE UT INJ, CYCLOPHOSPHAMIDE, NOS Morgan Vásquez MD [address] [place] [address] Anc Hem/Onc Amena You DEPT CLOSED - 03/26/23 [address] [facility] [place] [address] Referral ID Status Reason Start Date Expiration Date V isits Requested Visits Authorized [id number] Authorized 05/28/2022 05/12/2099 99 99 Encounter Details Date Type Department Care Team (Latest Contact Info) Description 03/05/2024 11:15 AM EDT Hem/Onc Treatment Hematology/Oncolog y Treatment, [place] [address] [place] [address] Kenyatta, Chair 3 Hem Onc Scenery [address] [place] [address] [address] [address] Multiple myeloma not having achieved remission (HCC)*; Encounter for antineoplastic chemotherapy Allergies No known active allergiesdocumented as of this encounter (statuses as of 03/05/2024) Medications Medication Sig Dispensed Refills Start Date End Date Status THEOPHYLLINE ER 450 MG PO BE17Kymjhnpbieg:2 tablet at bedtime Take by mouth. Indications: [...] at bedtime. PATIENT INFORMATION: Kris Galvin [address] [place] [address] [employer]: [employer] ORDER: Please start nocturnal oxygen via nasal [...] (electronically signed) Ish Caba MD Pulmonary Medicine, [address] [facility] Medical License Number: [id number] 1 Each 09/21/2022 Active metFORMIN HCl ER [...] week 08/28/2022 Impingement syndrome of both shoulders 02/27/202 3 Primary osteoarthritis, left shoulder 04/09/2022 Greater [...] mRNA, LNP-s, No Pre serve, 2-Dose Series ([employer]) 01/17/2021,08/05/2020,07/08/2020 COVID-19, LNP-s, No Preserve , Bryant-sucrose, Ages 12+ ([employer]) 09/26/2021 COVID-19, MRNA-LNP, 23-24, P F, 30 MCG/0.3 mL, 12 YRS AND ABOVE, IM ([facility]) 02/01/2024 DTaP Dipth/Tet/Acell Pertussis (Infanrix), Peds 02/23/2021,11/11/2020,09/09/2020 [...] AM EDT Laboratory Lab Mobile Phlebotomy [facility] [address] [place] [address] Mvmg, Gml Mobile Home Draw [address] [employer] [place] [address] 03/12/2024 8:30 AM EDT Hem/Onc Treatment Hematology/Oncology Treatment, [place] [address] [place] [phone] Kenyatta, Chair 11 Hem Onc Scenery 200 [place] [address] 03/18/2024 7:05 AM EST Laboratory Lab Mobile Phlebotomy [facility] [address] [place] [address] Mvmg, Gml Mobile Home Draw [address] [place] [address] 03/19/2024 8:00 AM EST Hem/Onc Treatment Hematology/Oncology Treatment, [place] 200 [place] [phone] Kenyatta, Chair 5 Hem Onc Scenery [address] [place] [address] 03/25/2024 7:05 AM EST Laboratory Lab Mobile Phlebotomy [facility] [address] [place] [address] Mvmg, Gml Mobile Home Draw [address] [place] [address] 03/26/2024 8:00 AM EST [facility] [address] [place] [phone] Kenyatta, Chair 5 Hem Onc Scenery [address] [facility] [address] 04/01/2024 7:00 AM EST Laboratory Lab Mobile Phlebotomy [facility] [address] [facility] [place] [address] Mvmg, Gml Mobile Home Draw [address] [place] [address] 04/08/2024 7:05 AM EST Laboratory Lab Mobile Phlebotomy [facility] [address] [facility] [place] [address] Mvmg, Gml Mobile Home Draw [address] [place] [address] 04/15/2024 7:05 AM EST Laboratory Lab Mobile Phlebotomy [facility] [address] [facility] [place] [address] Mvmg, Gml Mobile Home Draw [address] [employer] [facility] [place] [address] 04/22/2024 7:05 AM EST Laboratory Lab Mobile Phlebotomy [facility] [address] [facility] [place] [address] Mvmg, Gml Mobile Home Draw [address] [facility] [place] [address] 04/29/2024 7:05 AM EST Laboratory Lab Mobile Phlebotomy [facility] [address] [facility] [place] [address] Mvmg, Gml Mobile Home Draw [address] [facility] [place] [address] 05/05/2024 7:05 AM EST Laboratory Lab Mobile Phlebotomy [facility] [address] [facility] [place] [address] Mvmg, Gml Mobile Home Draw [address] [facility] [place] [address] 06/04/2024 10:45 AM EST Office Visit Hematology/Oncology [facility] [address] [facility], [place] [phone] Morgan Vásquez MD [address] [facility], [place] [address] 07/28/2024 7:00 AM EDT Office Visit Neurology [facility] [address] [facility], [place] [address] Sandrita Pineda PAManolo [address] [place] [address] 09/02/2024 8:20 AM EDT Office Visit Pulmonary Medicine, [facility] [address] [facility] [place] [address] Ish Caba MD [address] [place] [address] 05/03/2025 7:40 AM EST Office Visit Dermatology [address] [place] [address] Albina Romo PA-C [address] [place] [address] [place] [address] Health Maintenance Due Date Last Done Comments [...] this encounter Medical Devices Implanted Type Area Stogy Maker Device Identifier Shelf Expiration Date Model / Serial / Lot Mesh Plug Xlarge [id number] - [id number] Implanted:Qty: 1 on 12/09/2020 by John Zaragoza MD at OR [facility] Left: Demond RIVAS BARD : LUCINDA 05/09/2023 [id number] / / [id number] documented as of this encounter Visit Diagnoses [...] AM EDT 740 mg 517.4 mL/hr Daratumumab-hyaluronida se-fij (Darzalex Faspro) 1800 mg-95747 units/ 15 ml subcut inj 15 mL, [...] Power of Attor coco? No Care Teams Box Sealing Machine Feeder Relationship Specialty Start Date End Date Michael Collins MD [address] [place] [address] [place] [address] PCP - General Internal Medicine 03/01/14 documented as of this encounter
--- OUTSIDE RECORDS SUMMARY | 2024-03-26 16:16 | External Medical Summary ---
Author Name Unknown Address Unknown Organization K01:LABORATORY [facility] - [address] [facility] [address] Laboratory Report Ordering Provider Test Date Status KALPESH SERRANO 03/04/2024 08:18:00 Final Observation Date Value Abnormality Reference (Units ) Status SYNC LEUKOCYTES IN BLOOD BY AUTOMATED COUNT 03/04/2024 08:18:00 2.76 Below low normal 4.00-10.80 (K/uL) Final Segs 03/04/2024 08:18:00 72.4 40.0-75.0 (%) Final Lymphs % 03/04/2024 08:18:00 10.1 Below low normal 18.0-42.0 (%) Final Monos 03/04/2024 08:18:00 11.6 Above high normal 1.0-11.0 (%) Final Eosinophils 03/04/2024 08:18:00 5.1 0.0-6.0 (%) Final Basos 03/04/2024 08:18:00 0.4 0.0-2.0 (%) Final Immature Granulocyte, Percent 03/04/2024 08:18:00 0.4 0.0-2.0 (%) Final Absolute Segs 03/04/2024 08:18:00 2.00 1.80-7.70 (K/uL) Final Lymphs, absolute 03/04/2024 08:18:00 0.28 Below low normal 1.00-4.80 (K/ul) Final Monos, Abs 03/04/2024 08:18:00 0.32 0.00-1.10 (K/uL) Final Eos, Abs 03/04/2024 08:18:00 0.14 0.00-0.70 (K/uL) Final Basos, Abs 03/04/2024 08:18:00 0.01 0.00-0.20 (K/uL) Final Immature Granulocytes, Number 03/04/2024 08:18:00 0.01 0.00-0.20 (K/uL) Final Performing Location LABORATORY [facility] - [facility] [address] [address]
--- OUTSIDE RECORDS SUMMARY | 2024-03-26 16:16 | External Medical Summary | Summary of Care ---
Author Name Unknown Organization [facility] Address [address] [facility] [address] Phone [phone] Care Team Providers Care Gi Tech Name Role Phone Michael Collins MD Primary Care Provi zehra Reason for Visit * Reason Comments Chemotherapy C42, D 1 Cytoxan and Darzalax Faspro * Episode Based Medications (Routine) - Authorized Specialty Diagnoses / Procedures Referred By Contac t Referred To Contact Diagnoses Multiple myeloma not having achieved remission (HCC) Procedures MT DARATUMUMAB, HYALURONIDASE MT INJ, CYCLOPHOSPHAMIDE, NOS Morgan Vásquez MD [address] [place] [address] Anc Hem/Onc Amena You DEPT CLOSED - 03/26/23 [facility] [place] [address] Referral ID Status Reason Start Date Expiration Date V isits Requested Visits Authorized [id number] Authorized 05/28/2022 05/12/2099 99 99 Encounter Details Date Type Department Care Team (Latest Contact Info) Description 03/05/2024 11:15 AM EDT Hem/Onc Treatment Hematology/Oncolog y Treatment, [place] [address] [place] [address] Kenyatta, Chair 3 Hem Onc Scenery [address] [place] [address] [address] Multiple myeloma not having achieved remission (HCC)*; Encounter for antineoplastic chemotherapy Allergies No known active allergiesdocumented as of this encounter (statuses as of 03/05/2024) Medications Medication Sig Dispensed Refills Start Date End Date Status THEOPHYLLINE ER 450 MG PO XH38Wdvhukggzxe:2 tablet at bedtime Take by mouth. Indications: [...] CAPS Take by mouth. Active Multiple Vitamins-Minerals ([facility] IMMUNITY SUPPORT) CHEW Take by mouth. Active [...] at bedtime. PATIENT INFORMATION: Kris Galvin [address] [place] [address] [employer] MEDICAL [employer]QUIPMENT COMPANY: [employer] ORDER: Please start nocturnal oxygen via nasal [...] signed) Ish Caba MD Pulmonary Medicine, [address] [address] [place] [facility] Medical License Number: [id number] 1 Each 09/21/2022 Active metFORMIN HCl ER [...] mRNA, LNP-s, No Pre serve, 2-Dose Series ([employer]) 01/17/2021,08/05/2020,07/08/2020 COVID-19, LNP-s, No Preserve , Bryant-sucrose, Ages 12+ ([employer]) 09/26/2021 COVID-19, MRNA-LNP, 23-24, P F, 30 MCG/0.3 mL, 12 YRS AND ABOVE, IM ([facility]) 02/01/2024 DTaP Dipth/Tet/Acell Pertussis (Infanrix), Peds [...] AM EDT Laboratory Lab Mobile Phlebotomy [facility] [address] [place] [address] Mvmg, Gml Mobile Home Draw [address] [place] [address] 03/12/2024 8:30 AM EDT Hem/Onc Treatment Hematology/Oncology Treatment, [place] [address] [place] [phone] Kenyatta, Chair 11 Hem Onc Scenery 200 [place] [address] 03/18/2024 7:05 AM EST Laboratory Lab Mobile Phlebotomy [facility] [address] [facility] [address] Mvmg, Gml Mobile Home Draw [address] [facility] [place] [address] 03/19/2024 8:00 AM EST Hem/Onc Treatment Hematology/Oncology Treatment, [place] 200 [facility] [place] [phone] Kenyatta, Chair 5 Hem Onc Scenery 200 [place] [address] 03/25/2024 7:05 AM EST Laboratory Lab Mobile Phlebotomy [facility] [address] [facility] [address] Mvmg, Gml Mobile Home Draw [address] [facility] [place] [address] 03/26/2024 8:00 AM EST [facility] 200 [facility] [place] [phone] Kenyatta, Chair 5 Hem Onc Scenery 200 [place] [address] 04/01/2024 7:00 AM EST Laboratory Lab Mobile Phlebotomy [facility] [address] [facility] [place] [address] Mvmg, Gml Mobile Home Draw [address] [facility] [place] [address] 04/08/2024 7:05 AM EST Laboratory Lab Mobile Phlebotomy [facility] [address] [facility] [place] [address] Mvmg, Gml Mobile Home Draw [address] [facility] [place] [address] 04/15/2024 7:05 AM EST Laboratory Lab Mobile Phlebotomy [facility] [address] [facility] [place] [address] Mvmg, Gml Mobile Home Draw [address] [employer] [facility] [place] [address] 04/22/2024 7:05 AM EST Laboratory Lab Mobile Phlebotomy [facility] [address] [facility] [place] [address] Mvmg, Gml Mobile Home Draw [address] [facility] [place] [address] 04/29/2024 7:05 AM EST Laboratory Lab Mobile Phlebotomy [facility] [address] [facility] [place] [address] Mvmg, Gml Mobile Home Draw [address] [facility] [place] [address] 05/05/2024 7:05 AM EST Laboratory Lab Mobile Phlebotomy [facility] [address] [facility] [place] [address] Mvmg, Gml Mobile Home Draw [address] [facility] [place] [address] 06/04/2024 10:45 AM EST Office Visit Hematology/Oncology [facility] 200 [facility], [place] [phone] Morgan Vásquez MD 200 [facility], [place] [address] 07/28/2024 7:00 AM EDT Office Visit Neurology [facility] 200 [facility], [place] [address] Sandrita Pineda PAManolo [address] [place] [address] 09/02/2024 8:20 AM EDT Office Visit Pulmonary Medicine, [facility] 132 [facility] [place] [address] Ish Caba MD [address] [place] [address] 05/03/2025 7:40 AM EST Office Visit Dermatology [address] [place] [address] Albina Romo PA-C [address] [place] [address] [place] [address] Health Maintenance Due Date Last Done Comments [...] this encounter Medical Devices Implanted Type Area Monumental Stonemason Device Identifier Shelf Expiration Date Model / Serial / Lot Mesh Plug Xlarge [id number] - [id number] Implanted:Qty: 1 on 12/09/2020 by John Zaragoza MD at OR [facility] Left: Demond RIVAS BARD : LUCINDA 05/09/2023 [id number] / / [id number] documented as of this encounter Visit Diagnoses [...] 517.4 mL/hr Daratumumab-hyaluronida se-fij (Darzalex Faspro) 1800 mg-82749 units/ 15 ml subcut inj 15 mL, [...] Power of Attor coco? No Care Teams Gi Tech Relationship Specialty Start Date End Date Michael Collins MD [address] [place] [address] [place] [address] PCP - General Internal Medicine 03/01/14 documented as of this encounter
--- OUTSIDE RECORDS SUMMARY | 2024-03-26 16:16 | External Medical Summary | Summary of Care ---
Author Name Unknown Organization [facility] Address [address] [facility] [address] Phone [phone] Care Team Providers Care Miniature Train Driver Name Role Phone Michael Collins MD Primary Care Provi zehra Reason for Visit * Reason Comments Chemotherapy C42, D 1 Cytoxan and Darzalax Faspro * Episode Based Medications (Routine) - Authorized Specialty Diagnoses / Procedures Referred By Contac t Referred To Contact Diagnoses Multiple myeloma not having achieved remission (HCC) Procedures ID DARATUMUMAB, HYALURONIDASE ID INJ, CYCLOPHOSPHAMIDE, NOS Morgan Vásquez MD [address] [place] [address] Anc Hem/Onc Amena You DEPT CLOSED - 03/26/23 [facility] [place] [address] Referral ID Status Reason Start Date Expiration Date V isits Requested Visits Authorized [id number] Authorized 05/28/2022 05/12/2099 99 99 Encounter Details Date Type Department Care Team (Latest Contact Info) Description 03/05/2024 11:15 AM EDT Hem/Onc Treatment Hematology/Oncolog y Treatment, [place] [facility] [address] [place] [address] Kenyatta, Chair 3 Hem Onc Scenery [address] [place] [address] [address] Multiple myeloma not having achieved remission (HCC)*; Encounter for antineoplastic chemotherapy Allergies No known active allergiesdocumented as of this encounter (statuses as of 03/05/2024) Medications Medication Sig Dispensed Refills Start Date End Date Status THEOPHYLLINE ER 450 MG PO [id number]:2 tablet at bedtime Take by mouth. Indications: [...] at bedtime. PATIENT INFORMATION: Kris Galvin [address] [place] [address] [employer]: [employer] ORDER: Please start nocturnal oxygen via nasal [...] signed) Ish Caba MD Pulmonary Medicine, [address] [address] [place] [facility] Medical License Number: [id number] 1 Each 09/21/2022 Active metFORMIN HCl ER [...] mRNA, LNP-s, No Pre serve, 2-Dose Series (Hers) 01/17/2021,08/05/2020,07/08/2020 COVID-19, LNP-s, No Preserve , Bryant-sucrose, Ages 12+ (Hers) 09/26/2021 COVID-19, MRNA-LNP, 23-24, P F, 30 MCG/0.3 mL, 12 YRS AND ABOVE, IM ([employer]) 02/01/2024 DTaP Dipth/Tet/Acell Pertussis (Infanrix), Peds 02/23/2021,11/11/2020,09/09/2020 [...] AM EDT Laboratory Lab Mobile Phlebotomy [facility] [address] [place] [address] Mvmg, Gml Mobile Home Draw [address] [place] [address] 03/12/2024 8:30 AM EDT Hem/Onc Treatment Hematology/Oncology Treatment, [place] [address] [place] [phone] Kenyatta, Chair 11 Hem Onc Scenery 200 [place] [address] 03/18/2024 7:05 AM EST Laboratory Lab Mobile Phlebotomy [facility] [address] [place] [address] Mvmg, Gml Mobile Home Draw [address] [place] [address] 03/19/2024 8:00 AM EST Hem/Onc Treatment Hematology/Oncology Treatment, [place] 200 [place] [phone] Kenyatta, Chair 5 Hem Onc Scenery 200 [place] [address] 03/25/2024 7:05 AM EST Laboratory Lab Mobile Phlebotomy [facility] [address] [place] [address] Mvmg, Gml Mobile Home Draw [address] [place] [address] 03/26/2024 8:00 AM EST [facility] 200 [place] [phone] Kenyatta, Chair 5 Hem Onc Scenery 200 [place] [address] 04/01/2024 7:00 AM EST Laboratory Lab Mobile Phlebotomy [facility] [address] [facility] [place] [address] Mvmg, Gml Mobile Home Draw [address] [place] [address] 04/08/2024 7:05 AM EST Laboratory Lab Mobile Phlebotomy [facility] [address] [facility] [place] [address] Mvmg, Gml Mobile Home Draw [address] [place] [address] 04/15/2024 7:05 AM EST Laboratory Lab Mobile Phlebotomy [facility] [address] [facility] [place] [address] Mvmg, Gml Mobile Home Draw [address] [facility] [place] [address] 04/22/2024 7:05 AM EST Laboratory Lab Mobile Phlebotomy [facility] [address] [facility] [place] [address] Mvmg, Gml Mobile Home Draw [address] [facility] [place] [address] 04/29/2024 7:05 AM EST Laboratory Lab Mobile Phlebotomy [facility] [address] [facility] [place] [address] Mvmg, Gml Mobile Home Draw [address] [facility] [place] [address] 05/05/2024 7:05 AM EST Laboratory Lab Mobile Phlebotomy [facility] [address] [facility] [place] [address] Mvmg, Gml Mobile Home Draw [address] [facility] [place] [address] 06/04/2024 10:45 AM EST Office Visit Hematology/Oncology [facility] 200 [facility], [place] [phone] Morgan Vásquez MD 200 [facility], [place] [address] 07/28/2024 7:00 AM EDT Office Visit Neurology [facility] 200 [facility], [place] [address] Sandrita Pineda PAManolo [address] [place] [address] 09/02/2024 8:20 AM EDT Office Visit Pulmonary Medicine, [facility] 132 [facility] [place] [address] Ish Caba MD [address] [place] [address] 05/03/2025 7:40 AM EST Office Visit Dermatology [address] [place] [address] Albina Romo PA-C [address] [place] [address] [place] [address] Health Maintenance Due Date Last Done Comments [...] this encounter Medical Devices Implanted Type Area Electronic Repair Troubleshooter Device Identifier Shelf Expiration Date Model / Serial / Lot Mesh Plug Xlarge [id number] - [id number] Implanted:Qty: 1 on 12/09/2020 by John Zaragoza MD at OR [facility] Left: Demond RIVAS BARD : LUCINDA 05/09/2023 [id number] / / [id number] documented as of this encounter Visit Diagnoses [...] ONCE PRN Other, Hypersensitivity Reaction, Starting on Sat03/05/24 at 1111, Until Sat03/06/24 at 1110, For 24 hours EPINEPHrine 1 MG/ML inj 0.3 mg 0.3 mg, Intramuscular, ONCE PRN Other, Hypersensitivity Reaction or Anaphylaxis, Starting on Sat03/05/24 at 1111, Until Sat03/06/24 at 1110, For 24 hours hEParin 100 UNIT/ML Lock Flush inj 500 Units 500 Units (5 mL), IV Lock, PRN Other, IV Flush, Starting on Sat03/05/24 at 1111, Until Sat03/06/24 at 1110, For 24 hours, Do not flush if lock, PICC, or central line not in place; IV infusing or unable to flush. Hydrocortisone Sod Suc (PF) (Solu-Cortef) inj 100 mg 100 mg, IV Push, ONCE PRN Other, Hypersensitivity Reaction, Starting on Sat03/05/24 at 1111, Until Sat03/06/24 at 1110, For 24 hours meperidine (Demerol) 25 MG/ML inj 25 mg 25 mg, IV Push, ONCE PRN Shivering, Starting on Sat03/05/24 at 1111, Until Sat03/06/24 at 1110, For 24 hours NSS infusion FOR HYDRATION Intravenous, at 50 mL/hr Administer over 10 Hours, CONTINUOUS, Starting on Sat03/05/24 at 1145, Until Discontinued Start Infusion 03/05/2024 11:23 AM EDT 500 mL 50 mL/hr sodium chloride 0.9 % flush central line 10 mL 10 mL, IV Push, PRN Other, IV Flush, Starting on Sat03/05/24 at 1111, Until Sat03/06/24 at 1110, For 24 hours, Do not flush if [...] AM EDT 740 mg 517.4 mL/hr Daratumumab-hyaluronida [facility] (Darzalex Faspro) 1800 mg-31187 units/ 15 ml subcut inj 15 mL, [...] 11:27 AM EDT 1,000 mL 500 mL/hr ondansetron [...] Power of Attor coco? No Care Teams Miniature Train Driver Relationship Specialty Start Date End Date Michael Collins MD [address] [place] [address] [place] [address] PCP - General Internal Medicine 03/01/14 documented as of this encounter
--- OUTSIDE RECORDS SUMMARY | 2024-03-26 16:16 | External Medical Summary ---
Author Name Unknown Address Unknown Organization K01:LABORATORY [facility] [place] - 100 [facility] [place] [address] Laboratory Report Ordering Provider Test Date Status KALPESH SERRANO 03/04/2024 08:18:00 Final Observation Date Value Abnormality Reference (Units ) Status BUN 03/04/2024 08:18:00 19 6-20 (mg/dL) Final Creatinine 03/04/2024 08:18:00 1.2 0.6-1.2 (mg/dL) Final Glomerular filtration rate/1.73 sq M.predicted [Volume Rate/Area] in Serum, Plasma or Blood by Creatinine-based formula (CKD-EPI) 03/04/2024 08:18:00 70 >=60 (mL/min) Final eGFR is calculated based on the CKD-EPI 2020 equation. Sodium 03/04/2024 08:18:00 140 135-146 (m mol/L) Final Potassium 03/04/2024 08:18:00 3.8 3.5-5.1 (m mol/L) Final Cl 03/04/2024 08:18:00 99 98-107 (mm ol/L) Final CO2 03/04/2024 08:18:00 28 22-32 (mmo l/L) Final Anion gap 03/04/2024 08:18:00 13 7-15 (mmol /L) Final Glucose 03/04/2024 08:18:00 107 70-120 (mg /dL) Final Albumin 03/04/2024 08:18:00 4.2 3.8-5.0 (g /dL) Final AST (Aspartate aminotransferase) 03/04/2024 08:18:00 37 10-50 (U/L) Fin al Alk Phos 03/04/2024 08:18:00 139 Above high normal 35 -130 (U/L) Final Bilirubin, Total 03/04/2024 08:18:00 0.4 <=1 .2 (mg/dL) Final Calcium 03/04/2024 08:18:00 8.8 8.4-10.2 ( mg/dL) Final Protein 03/04/2024 08:18:00 5.8 Below low normal 6.0 -8.3 (g/dL) Final ALT (Alanine aminotransferase) 03/04/2024 08:18:00 30 10-50 (U/L) Regis figueroa Performing Location LABORATORY [facility] [place] - [facility] [address]. [facility] [address]
--- OUTSIDE RECORDS SUMMARY | 2024-03-26 16:16 | External Medical Summary ---
Author Name Unknown Address Unknown Organization K01:[facility] [place] [address] [facility] [address] [facility] [address] Laboratory Report Ordering Provider Test Date Status KALPESH SERRANO 03/04/2024 08:18:00 Final Observation Date Value Abnormality Reference (Units) Status PARAPROTEIN NORMAL/ABNORMAL 08:18:00 Abnormal Abnormal Normal Final Protein 08:18:00 5.8 Below low normal 6.0-8.3 (g/dL) Final Albumin/Protein.total [Pure mass fraction] in Serum or Plasma by Electrophoresis 08:18:00 3.32 3.30-4.40 (g/dL) Final Alpha 1 globulin/Protein.tota l [Pure mass fraction] in Serum or Plasma by Electrophoresis 4 08:18:00 0.22 0.10-0.30 (g/dL) Final Alpha 2 globulin/Protein.tota l [Pure mass fraction] in Serum or Plasma by Electrophoresis 4 08:18:00 1.00 0.60-1.00 (g/dL) Final Beta globulin/Protein.tota l [Pure mass fraction] in Serum or Plasma by Electrophoresis 08:18:00 0.87 0.80-1.30 (g/dL) Final Gamma globulin/Protein.tota l [Pure mass fraction] in Serum or Plasma by Electrophoresis 08:18:00 0.39 Below low normal 0.70-1.70 (g/dL) Final Protein Fractions [Interpretation] in Serum or Plasma by Electrophoresis Narrative 4 08:18:00 Abnormal. A paraprotein is present that has been previously identified as a monoclonal IgG kappa. Paraprotein concentration is detectable, but less than 0.5 g/dL, unable to be accurately quantified by this method. Decreased gamma fraction. Final Performing Location [facility] - [address] [facility] [address] [facility] [address]
--- OUTSIDE RECORDS SUMMARY | 2024-03-26 16:16 | External Medical Summary | Summary of Care ---
Author Name Unknown Organization [facility] Address [address] [place] [facility] [place] [address] Phone [phone] Care Team Providers Care Film Recordist Name Role Phone Michael Collins MD Primary Care Provi zehra Reason for Visit * Reason Comments Chemotherapy C41/D22 - Cytoxan IV Therapy Hydration * Episode Based Medications (Routine) - Authorized Specialty Diagnoses / Procedures Referred By Contac t Referred To Contact Diagnoses Multiple myeloma not having achieved remission (HCC) Procedures ID DARATUMUMAB, HYALURONIDASE ID INJ, CYCLOPHOSPHAMIDE, NOS Morgan Vásquez MD [address] [place] [address] Anc Hem/Onc Amena You DEPT CLOSED - 03/26/23 [facility] [place] [address] Referral ID Status Reason Start Date Expiration Date V isits Requested Visits Authorized [id number] Authorized 05/28/2022 05/12/2099 99 99 Encounter Details Date Type Department Care Team (Latest Contact Info) Description 02/27/2024 8:30 AM EDT Hem/Onc Treatment Hematology/Oncolog y Treatment, [place] [address] [place] [address] Kenyatta, Chair 9 Hem Onc Scenery 200 Amena [address] [place] [address] Multiple myeloma not having achieved remission (HCC)*; Encounter for antineoplastic chemotherapy Allergies No known active allergiesdocumented as of this encounter (statuses as of 02/27/2024) Medications Medication Sig Dispensed Refills Start Date End Date Status THEOPHYLLINE ER 450 MG PO FA58Pshrowtgnln:2 tablet at bedtime Take by mouth. Indications: [...] INFORMATION: Kris Galvin [address] [place] [address] [employer]: [employer] ORDER: Please start nocturnal oxygen via nasal [...] signed) Ish Caba MD Pulmonary Medicine, [address] [place] [address] [place] [facility] Medical License Number: [id number] 1 Each 09/21/2022 Active metFORMIN HCl ER [...] as of this encounter (statuses as of 02/27/2024) Active Problems Problem Noted Date Diagnosed Date [...] as of this encounter (statuses as of 02/27/2024) Resolved Problems Problem Noted Date Diagnosed Date Resolved Date Asthma in remission 08/28/2022 08/29/19 Asthma, mild persistent 08/28/202208/11 Asthma, severe persistent 08/28/2022 Stem cell transplant candidate 08/17/2019 09/02/2019 documented as of this encounter (statuses as of 02/27/2024) Immunizations Name Administration Dates Next Due COVID-19 mRNA, LNP-s, No Pre serve, 2-Dose Series ([employer]) 01/17/2021,08/05/2020,07/08/2020 COVID-19, LNP-s, No Preserve , Bryant-sucrose, Ages 12+ ([employer]) 09/26/2021 COVID-19, MRNA-LNP, 23-24, P F, 30 MCG/0.3 mL, 12 YRS AND ABOVE, IM ([employer]-Comirnat[employer]) 02/01/2024 DTaP Dipth/Tet/Acell Pertussis (Infanrix), Peds 02/23/2021,11/11/2020,09/09/2020 [...] as of this encounter Nursing Notes * Manisha Fraser [...] EDT Laboratory Lab Mobile Phlebotomy [facility] [address] [facility] [facility] [place] [address] Mvmg, Gml Mobile Home Draw [address] [place] [address] 03/05/2024 10:45 AM EDT Office Visit [address]ematology/[address]cology [address] [phone] Morgan [facility]quez MD [facility] [address] 03/05/2024 11:15 AM EDT Hem/Onc Treatment Hematology/Oncology Treatment, [place] 200 [facility], [place] [phone] Kenyatta, Chair 3 Hem Onc [address] [address] 03/11/2024 7:05 AM EDT Laboratory Lab Mobile Phlebotomy [facility] [address] [employer] [place] [address] Mvmg, Gml Mobile Home Draw [address] [place] [address] 03/18/2024 7:05 AM EST Laboratory Lab Mobile Phlebotomy [facility] [address] [place] [address] [address] Mvmg, Gml Mobile Home Draw [address] [facility] [place] [address] 03/25/2024 7:05 AM EST Laboratory Lab Mobile Phlebotomy [facility] [address] [place] [address] Mvmg, Gml Mobile Home Draw [address] [place] [address] 04/01/2024 7:00 AM EST Laboratory Lab Mobile Phlebotomy [facility] [address] [place] [address] Mvmg, Gml Mobile Home Draw [address] [place] [address] 04/08/2024 7:05 AM EST Laboratory Lab Mobile Phlebotomy [facility] [address] [place] [address] Mvmg, Gml Mobile Home Draw [address] [place] [address] 04/15/2024 7:05 AM EST Laboratory Lab Mobile Phlebotomy [facility] [address] [place] [address] Mvmg, Gml Mobile Home Draw [address] [place] [address] 04/22/2024 7:05 AM EST Laboratory Lab Mobile Phlebotomy [facility] [address] [place] [address] Mvmg, Gml Mobile Home Draw [address] [place] [address] 04/29/2024 7:05 AM EST Laboratory Lab Mobile Phlebotomy [facility] [address] [place] [address] Mvmg, Gml Mobile Home Draw [address] [place] [address] 05/05/2024 7:05 AM EST Laboratory Lab Mobile Phlebotomy [facility] [address] [place] [address] Mvmg, Gml Mobile Home Draw [address] [place] [address] 07/28/2024 7:00 AM EDT Office Visit Neurology [facility] [address] [place] [address] Sandrita Pineda PA-C [address] [facility] [place] [address] 09/02/2024 8:20 AM EDT Office Visit Pulmonary Medicine, [facility] [address] [place] [address] Ish Caba MD [address] [place] [address] 05/03/2025 7:40 AM EST Office Visit Dermatology [address] [place] [address] Albina Romo PA-C [address] [place] [address] [place] [address] Health Maintenance Due Date Last Done Comments [...] this encounter Medical Devices Implanted Type Area Singer Songwriter Device Identifier Shelf Expiration Date Model / Serial / Lot Mesh Plug Xlarge [id number] - [id number] Implanted:Qty: 1 on 12/09/2020 by John Zaragoza MD at OR [facility] Left: Groin CR BARD : DAVOL 05/09/2023 [id number] / / [id number] documented as of this encounter Visit Diagnoses [...] PRN Other, Hypersensitivity Reaction, Starting on Lilibeth 02/27/24 at 0845, Until Sat02/28/24 at 0844, For 24 hours EPINEPHrine 1 MG/ML inj 0.3 mg 0.3 mg, Intramuscular, ONCE PRN Other, Hypersensitivity Reaction or Anaphylaxis, Starting on Lilibeth 02/27/24 at 0845, Until Sat02/28/24 at 0844, For 24 hours hEParin 100 UNIT/ML Lock Flush inj 500 Units 500 Units (5 mL), IV Lock, PRN Other, IV Flush, Starting on Lilibeth 02/27/24 at 0845, Until Sat02/28/24 at 0844, For 24 hours, Do not flush if lock, PICC, or central line not in place; IV infusing or unable to flush. Hydrocortisone Sod Suc (PF) (Solu-Cortef) inj 100 mg 100 mg, IV Push, ONCE PRN Other, Hypersensitivity Reaction, Starting on Lilibeth 02/27/24 at 0845, Until Sat02/28/24 at 0844, For 24 hours meperidine (Demerol) 25 MG/ML inj 25 mg 25 mg, IV Push, ONCE PRN Shivering, Starting on Lilibeth 02/27/24 at 0845, Until Sat02/28/24 at 0844, For 24 hours NSS infusion FOR HYDRATION Intravenous, at 50 mL/hr Administer over 10 Hours, CONTINUOUS, Starting on Sat02/27/24 at 0930, Until Discontinued Start Infusion 02/27/2024 8:47 AM EDT 500 mL 50 mL/hr sodium chloride 0.9 % flush central line 10 mL 10 mL, IV Push, PRN Other, IV Flush, Starting on Sat02/27/24 at 0845, Until Sat02/28/24 at 0844, For 24 hours, Do not flush if [...] ONCE, 1 dose, On Lilibeth 02/27/24 at 0930 Start Infusion 02/27/2024 9:39 AM EDT 740 mg 517.4 mL/hr dexAMETHasone (Decadron) tab 40 mg 40 mg, Oral, ONCE, On Lilibeth 02/27/24 at 0930, For 1 dose Given 02/27/2024 8:59 AM EDT 40 mg NSS infusion FOR HYDRATION Intravenous, at 500 mL/hr Administer over 2 Hours, ONCE, 1 dose, On Lilibeth 02/27/24 at 0930 Start Infusion 02/27/2024 8:48 AM EDT 1,000 mL 500 mL/hr ondansetron (Zofran) tab 8 mg 8 mg, Oral, ONCE, On Lilibeth 02/27/24 at 0930, For 1 dose Given 02/27/2024 9:00 AM EDT 8 mg [...] Power of Attor coco? No Care Teams Film Recordist Relationship Specialty Start Date End Date Michael Collins MD [address] [place] [address] [place] [address] PCP - General Internal Medicine 03/01/14 documented as of this encounter
--- OUTSIDE RECORDS SUMMARY | 2024-03-26 16:16 | External Medical Summary ---
Author Name Unknown Address Unknown Organization K01:LABORATORY [facility] - [address] [place] [address] Laboratory Report Ordering Provider Test Date Status KALPESH SERRANO 03/04/2024 08:18:00 Final Observation Date Value Abnormality Reference (Units ) Status Lipase 03/04/2024 08:18:00 18 13-60 (U/L ) Final Performing Location [facility] - [address] [place] [address]
--- OUTSIDE RECORDS SUMMARY | 2024-03-26 16:16 | External Medical Summary ---
Author Name Unknown Address Unknown Organization K01:LABORATORY [facility] - [address] [place] [address] Laboratory Report Ordering Provider Test Date Status KALPESH SERRANO 03/04/2024 08:18:00 Final Observation Date Value Abnormality Reference (Units ) Status IgG 03/04/2024 08:18:00 370 Below low normal 700 -1600 (mg/dL) Final IgA 03/04/2024 08:18:00 11 Below low normal 70- 400 (mg/dL) Final IgM 03/04/2024 08:18:00 8 Below low normal 40- 230 (mg/dL) Final Performing Location [facility] - [address] [place] [address]
--- OUTSIDE RECORDS SUMMARY | 2024-03-26 16:17 | External Medical Summary | Summary of Care ---
Author Name Unknown Organization [facility] Address [address] [facility] [address] Phone [phone] Care Team Providers Care Ship Construction Teacher Name Role Phone Michael Collins MD Primary Care Provi zehra Reason for Visit * Reason Comments Chemotherapy C40 D8 Cytoxan for M M * Episode Based Medications (Routine) - Authorized Specialty Diagnoses / Procedures Referred By Contac t Referred To Contact Diagnoses Multiple myeloma not having achieved remission (HCC) Procedures WA DARATUMUMAB, HYALURONIDASE [place] INJ, CYCLOPHOSPHAMIDE, NOS Morgan Vásquez MD [address] [place] [address] Anc Hem/Onc Amena You DEPT CLOSED - 03/26/23 200 [facility] [place] [address] Referral ID Status Reason Start Date Expiration Date V isits Requested Visits Authorized [id number] Authorized 05/28/2022 05/12/2099 99 99 Encounter Details Date Type Department Care Team (Latest Contact Info) Description 01/16/2024 8:30 AM EDT Hem/Onc Treatment Hematology/Oncolog y Treatment, [place] [address] [place] [address] Kenyatta, Chair 7 Hem Onc Scenery 200 Amena [place]man [place] [address] Multiple myeloma not having achieved remission (HCC)*; Encounter for antineoplastic chemotherapy Allergies No known active allergiesdocumented as of this encounter (statuses as of 02/26/2024) Medications Medication Sig Dispensed Refills Start Date End Date Status THEOPHYLLINE ER 450 MG PO [id number] tablet at bedtime Take by mouth. Indications: 2 tablet at bedtime Active B COMPLEX FORMULA 1 PO TABS Take by mouth. Active MULTIVITAMINS PO CAPS 1 daily Active FOLIC ACID 1 MG PO TABS Take by mouth daily. Active METOPROLOL XL TBCR 50 MG OR 1 tab daily 5 Active hydrochlorothiazi de (HYDRODIURIL) 25 MG Tablet Take 1 Tablet by mouth in the morning. 1 tab daily . 5 5 Active losartan (COZAAR) 50 MG Tablet Take 1 Tablet by mouth in the morning. 1 tab daily. 5 5 Active VENTOLIN HFA 108 (90 BASE) MCG/ACT inhaler As needed 11 5 Active omega-3 1000 MG CAPS Take by mouth. Active Multiple Vitamins-Minerals ([facility] IMMUNITY SUPPORT) CHEW Take by mouth. Active traZODone (DESYREL) 150 MG Tablet Take 250 mg by mouth at bedtime. Active omeprazole (PRILOSEC) 40 MG CPDR Take 1 Capsule by mouth in the morning and 1 Capsule before bedtime. Active albuterol sulfate (PROVENTIL) (2.5 MG/3ML) 0.083% nebulizer solution INHALE 1 VIAL VIA NEBULIZER EVERY 6 HOURS NEEDED FOR SHORTNESS OF BREATH OR WHEEZING 0 Active acetaminophen (TYLENOL EXTRA STRENGTH) 500 MG Tablet Take 1 Tab by mouth every 6 hours as needed for Pain or Fever. 30 Tab 0 Active zolpidem (AMBIEN) 5 MG Tablet Take 1 Tablet by mouth at bedtime as needed for Sleep. Active Aspirin 81 MG Oral Tablet Chewable Take 1 Tablet by mouth in the morning. Active Diphenoxylate-Atr opine 2.5-0.025 MG Oral Tablet (Lomotil)Indicati ons:Multiple myeloma in remission (HCC),Diarrhea, unspecified type TAKE 1 TABLET BY MOUTH 4 TIMES A DAY NEEDED FOR DIARRHEA 60 Tab 1 Active Sildenafil Citrate 100 MG Oral Tablet 1 Active Clobetasol Propionate 0.05 % External Ointment (Temovate)Indicat ions:Skin rash Apply topically to affected area 2 times a day . 30 g 2 2 Active B Complex Formula 1 (Lipotrop) Oral Tablet Active Levalbuterol HCl 1.25 MG/3ML Inhalation Nebulization Solution (Xopenex) INHALE CONTENTS OF 1 VIAL (3ML) EVERY 6 HOURS 3 Active oxygen IN GAS Administer 2 L/min(Oxygen) into nostril at bedtime. PATIENT INFORMATION: Kris Galvin [address] [place] [address] [email or web address]: [employer] ORDER: Please start nocturnal oxygen via nasal [...] signed) Ish Caba MD Pulmonary Medicine, [address] [address] [facility] Medical License Number: [id number] 1 Each 3 Active metFORMIN HCl ER (OSM) 500 MG Oral Tablet Extended Release 24 Hour 1 Tablet. 3 Active oxyCODONE HCl 5 MG Oral Tablet (Oxy IR) TAKE 1 TAB BY MOUTH EVERY 6 HOURS NEEDED FOR PAIN Active Triamcinolone Acetonide 0.1 % External Cream (Aristocort) Apply 2x daily to rashes areas on trunk/arms/legs during winter time mostly. 454 g 3 Active Acyclovir 800 MG Oral Tablet (Zovirax)Indicati ons:Multiple myeloma not having achieved remission (HCC),History of autologous stem cell transplant (HCC) TAKE 1 TABLET BY MOUTH TWICE A DAY 180 Tablet 3 4 Active DULoxetine HCl 60 MG Oral Capsule Delayed Release Particles (Cymbalta) Take 1 Capsule by mouth in the morning and 1 Capsule before bedtime. 180 Capsule 1 4 Active dexAMETHasone 4 MG Oral Tablet (Decadron)Indicat ions:Multiple myeloma not having achieved remission (HCC) Take 10 tablets once a week on weeks without Darzalex. Take 5 tablets on week of Darzalex injection. 35 Tablet 2 4 Active Prochlorperazine Maleate 10 MG Oral Tablet (Compazine)Indica tions:Multiple myeloma in remission (HCC) Take 1 Tablet by mouth every 6 hours as needed for Nausea. 60 Tablet 5 4 Active metFORMIN HCl ER 500 MG Oral Tablet Extended Release 24 Hour (Glucophage XR) Take 1 Tablet by mouth in the morning and 1 Tablet before bedtime. 4 Active Ondansetron HCl 8 MG Oral Tablet (Zofran)Indicatio ns:Multiple myeloma (HCC) TAKE 1 TABLET BY MOUTH EVERY 8 HOURS NEEDED FOR NAUSEA 90 Tablet 1 4 Active Pregabalin 25 MG Oral Capsule (Lyrica) 1 tab am and 1 tab pm 60 Capsule 2 4 02/12/20 24 Discontinued Hospital, Clinic, or Other Facility Administered [...] as of this encounter (statuses as of 02/26/2024) Active Problems Problem Noted Date Diagnosed Date [...] as of this encounter (statuses as of 02/26/2024) Resolved Problems Problem Noted Date Diagnosed Date Resolved Date Asthma in remission 08/28/2022 08/29/19 Asthma, mild persistent 08/28/202208/11 Asthma, severe persistent 08/28/2022 Stem cell transplant candidate 08/17/2019 09/02/2019 documented as of this encounter (statuses as of 02/26/2024) Immunizations Name Administration Dates Next Due COVID-19 mRNA, LNP-s, No Pre serve, 2-Dose Series ([employer]) 01/17/2021,08/05/2020,07/08/2020 COVID-19, LNP-s, No Preserve , Bryant-sucrose, Ages 12+ (Pfizer) 09/26/2021 DTaP Dipth/Tet/Acell Pertussis (Infanrix), Peds 02/23/2021,11/11/2020,09/09/2020 HIB [...] IM, 0.5 mL (Fluzone) 03/01/2014 Seasonal Influenza, PF, 6 M & above, [...] Sign Reading Time Taken Comments Blood Pressure 124/84 01/16/2024 9:24 AM EDT Pulse 85 01/16/2024 9:24 AM EDT Temperature 36.2 C (97.2 F) 01/16/2024 9:24 AM ED T Respiratory Rate - - Oxygen Saturation 94% 01/16/2024 9:24 AM EDT Inhaled Oxygen Concentration - - Weight 132.6 kg (292 lb 6.4 oz) 01/16/2024 9:24 AM EDT Height - - Body Mass Index 39.66 10/11/2023 9:26 AM EDT documented in this [...] as of this encounter Progress Notes * Mis Lomeli RN - 01/16/2024 10:14 AM EDT VS taken ~ 0830 documented in this encounter Nursing Notes * Mis Lomeli RN - 01/16/2024 11:55 AM EDT Goals: Patient will remain free from injury. Possible barriers to meeting goals: ambulation with IV pole. Stability of the patient: Moderately stable - low risk of patient condition declining or worsening Summary regarding today's goals: Met: Patient remained free from injury. Pt tolerated treatment well, discharged in stable condition. * Mis Lomeli RN - 01/16/2024 10:01 AM EDT Chair 12 Chemotherapy/Immunotherapy agents: CYTOXAN Consent for chemotherapy drug treatment complete, dated, and signed? yes, date - 10/17/23 Treatment lab parameters met? Yes Has treatment weight changed > than 10%? No Treatment preauthorized? Yes VITALS Filed Vitals: 01/16/24923 BP: 124/84 Pulse: 85 Temp: 36.2 C (97.2 F) TempSrc: Tympanic SpO2: 94% Weight: 132.6 kg (292 lb 6.4 oz) Urine protein: N/A Patient education completed for treatment? Yes Blood transfusion consent signed and complete? NA Return appointment scheduled? Yes Patient had provider visit today? No - If no provider visit must complete Pretreatment Assessment PRE-TREATMENT ASSESSMENT: NEURO: fatigue:tires easily CV/RESP: shortness of breath: uses supplemental O2 daily; denies need for O2 during treatment. GI/: denies symptoms OTHER: denies any additional symptoms PAIN: 0 Functional Status: Functional status at today's visit: [...] symptoms or adverse side effects during treatment. Safety and Risk for Injury Patient will remain free from injury. Ensure appropriate safety devices are available. Provide and maintain safe environment. Patient Education: Patient instructed on use of [...] Care Team (Late st Contact Info) Description 02/26/2024 7:05 AM EDT Laboratory Lab Mobile Phlebotomy [facility] [address] [place] [address] [facility], Gml Mobile Home Draw [address] [place] [address] Multiple myeloma in remission (HCC) 02/27/2024 8:30 AM EDT Hem/Onc Treatment Hematology/[address]colog y [address], [address] [phone] Kenyatta, Chair 9 Hem Onc Scenery [facility] Amena Osman [place] [address] 03/04/2024 7:00 AM EDT Laboratory Lab Mobile Phlebotomy [facility] [address] [place] [address] Mvmg, Gml Mobile Home Draw [address] [place] [address] 03/05/2024 10:45 AM EDT Office [facility] [place] [address] Amena Osman [place] [phone] Morgan Vásquez MD 200 [facility] [place] [address] 03/05/2024 11:15 AM EDT Hem/Onc Treatment H[facility]olog [facility], [place] [facility] [phone] Kenyatta, Chair 3 Hem Onc Scenery 200 Amena Osman [place] [address] 03/11/2024 7:05 AM EDT Laboratory Lab Mobile Phlebotomy [facility] [address] [place] [address] Mvmg, Gml Mobile Home Draw [address] [facility] [place] [address] 03/18/2024 7:05 AM EST Laboratory Lab Mobile Phlebotomy [facility] [address] [place] [address] Mvmg, Gml Mobile Home Draw [address] [place] [address] 03/25/2024 7:05 AM EST Laboratory Lab Mobile Phlebotomy [facility] [address] [facility] [place] [address] Mvmg, Gml Mobile Home Draw [address] [facility] [place] [address] 04/01/2024 7:00 AM EST Laboratory Lab Mobile Phlebotomy [facility] [address] [place] [address] Mvmg, Gml Mobile Home Draw [address] [facility] [place] [address] 04/08/2024 7:05 AM EST Laboratory Lab Mobile Phlebotomy [facility] [address] [facility] [place] [address] Mvmg, Gml Mobile Home Draw [address] [facility] [place] [address] 04/15/2024 7:05 AM EST Laboratory Lab Mobile Phlebotomy [facility] [address] [place] [address] Mvmg, Gml Mobile Home Draw [address] [place] [employer] [place] [address] 04/22/2024 7:05 AM EST Laboratory Lab Mobile Phlebotomy [facility] [address] [place] [address] Mvmg, Gml Mobile Home Draw [address] [facility] [place] [address] 04/29/2024 7:05 AM EST Laboratory Lab Mobile Phlebotomy [facility] [address] [place] [address] Mvmg, Gml Mobile Home Draw [address] [facility] [place] [address] 05/05/2024 7:05 AM EST Laboratory Lab Mobile Phlebotomy [facility] [address] [facility] [place] [address] Mvmg, Gml Mobile Home Draw [address] [facility] [place] [address] 07/28/2024 7:00 AM EDT Office Visit Neurology [facility] 200 [facility] [place] [address] Sandrita Pineda PA-C [address] [place] [address] 09/02/2024 8:20 AM EDT Office Visit Pulmonary Medicine, [facility] [address] [facility] [place] [address] Ish Caba MD [address] [facility] [place] [address] 05/03/2025 7:40 AM EST Office Visit Dermatology [address] [place] [address] Albina Romo PA-C [address] [place] [address] [place] [address] Health Maintenance Due Date Last Done Comments Depression Screening 1976 Albumin/Creatinine Ratio 1982 Cologuard 2009 Fecal Occult Blood Test 2009 Sigmoidoscopy 2009 Colonoscopy 03/03/2023 03/03/2018, 03/03/2018 Colorectal Cancer Screening 03/03/2023 Lipid Panel 11/18/2024 11/19/2019, 07/11, 07/29/2009 GFR 02/11/2025 02/12/2024, 01/12, 01/29/2024, Additional history exists Diabetes Screening 02/11/2027 02/12/2024, 0 02/05/2024, 01/29/2024, Additional history exists DTap/Tdap Vaccines (4 - [...] this encounter Medical Devices Implanted Type Area Corrections Caseworker Device Identifier Shelf Expiration Date Model / Serial / Lot Mesh Plug Xlarge [id number] - [id number] Implanted:Qty: 1 on 12/09/2020 by John Zaragoza MD at OR [facility] Left: Groin CR BARD : DAVOL 05/09/2023 [id number] / / [id number] documented as of this encounter Visit Diagnoses Diagnosis Multiple myeloma not having achieved remission (HCC)- Primary Multiple myeloma, without mention of having achieved remission Encounter for antineoplastic chemotherapy Multiple myeloma in remission (HCC) Multiple myeloma in remission documented in this encounter Administered Medications Inactive [...] not tolerated., ONCE, 1 dose, On Lilibeth 01/16/24 at 0915 Start Infusion 01/16/2024 10:34 AM EDT 740 mg 520 mL/hr dexAMETHasone (Decadron) tab 40 mg 40 mg, Oral, ONCE, On Lilibeth 01/16/24 at 0915, For 1 dose Given 01/16/2024 9:13 AM EDT 40 mg NSS infusion FOR HYDRATION Intravenous, at 500 mL/hr Administer over 2 Hours, ONCE, 1 dose, On Lilibeth 01/16/24 at 0915 Start Infusion 01/16/2024 9:13 AM EDT 1,000 mL 500 mL/hr NSS infusion FOR HYDRATION Intravenous, at 50 mL/hr Administer over 10 Hours, CONTINUOUS, Starting on Lilibeth 01/16/24 at 0915, Until Lilibeth 01/16/24 at 1559 Start Infusion 01/16/2024 9:06 AM EDT 500 mL 50 mL/hr ondansetron (Zofran) tab 8 mg 8 mg, Oral, ONCE, On Lilibeth 01/16/24 at 0915, For 1 dose Given 01/16/2024 9:13 AM EDT 8 mg documented in this [...] Power of Attor coco? No Care Teams Ship Construction Teacher Relationship Specialty Start Date End Date Michael Collins MD [address] [place] [address] [place] [address] PCP - General Internal Medicine 03/01/14 documented as of this encounter
--- OUTSIDE RECORDS SUMMARY | 2024-03-26 16:17 | External Medical Summary | Summary of Care ---
Author Name Unknown Organization [facility] Address [address] [facility] [address] Phone [phone] Care Team Providers Care Linter Tender Name Role Phone Michael Collins MD Primary Care Provi zehra Reason for Visit * Reason Comments Chemotherapy C40 D8 Cytoxan for M M * Episode Based Medications (Routine) - Authorized Specialty Diagnoses / Procedures Referred By Contac t Referred To Contact Diagnoses Multiple myeloma not having achieved remission (HCC) Procedures [place] DARATUMUMAB, HYALURONIDASE [place] INJ, CYCLOPHOSPHAMIDE, NOS Morgan Vásquez MD [address] [place] [address] Anc Hem/Onc Amena You DEPT CLOSED - 03/26/23 200 [facility] [place] [address] Referral ID Status Reason Start Date Expiration Date V isits Requested Visits Authorized [id number] Authorized 05/28/2022 05/12/2099 99 99 Encounter Details Date Type Department Care Team (Latest Contact Info) Description 01/16/2024 8:30 AM EDT Hem/Onc Treatment Hematology/Oncolog [place] Treatment, [place] [address] [place] [address] Kenyatta, Chair 7 Hem Onc Scenery 200 Amena Osman [place] [address] Multiple myeloma not having achieved remission (HCC)*; Encounter for antineoplastic chemotherapy Allergies No known active allergiesdocumented as of this encounter (statuses as of 02/25/2024) Medications Medication Sig Dispensed Refills Start Date End Date Status THEOPHYLLINE ER 450 MG PO [id number]:2 tablet at bedtime Take by mouth. Indications: [...] CAPS Take by mouth. Active Multiple Vitamins-Minerals ([email or web address] IMMUNITY SUPPORT) CHEW Take by mouth. Active [...] at bedtime. PATIENT INFORMATION: Kris Galvin [address] [place] [address] [employer]: [email or web address] ORDER: Please start nocturnal oxygen via nasal [...] (electronically signed) Ish Caba MD Pulmonary Medicine, [address] [address] [facility] Medical License Number: [id number] 1 Each 3 Active metFORMIN HCl ER [...] as of this encounter (statuses as of 02/25/2024) Active Problems Problem Noted Date Diagnosed Date [...] as of this encounter (statuses as of 02/25/2024) Resolved Problems Problem Noted Date Diagnosed Date Resolved Date Asthma in remission 08/28/2022 08/29/19 Asthma, mild persistent 08/28/202208/11 Asthma, severe persistent 08/28/2022 Stem cell transplant candidate 08/17/2019 09/02/2019 documented as of this encounter (statuses as of 02/25/2024) Immunizations Name Administration Dates Next Due COVID-19 mRNA, LNP-s, No Pre serve, 2-Dose Series ([employer]) 01/17/2021,08/05/2020,07/08/2020 COVID-19, LNP-s, No Preserve , Bryant-sucrose, [...] EDT Laboratory Lab Mobile Phlebotomy [facility] [address] [place] [address] Mvmg, Gml Mobile Home Draw [address] [place] [address] 02/27/2024 8:30 AM EDT Hem/Onc Treatment Hematology/Oncology Treatment, [place] [facility] [phone] Kenyatta, Chair 9 Hem Onc Scenery [address] [place] [address] [place] [address] 03/04/2024 7:00 AM EDT Laboratory Lab Mobile Phlebotomy [facility] [address] [place] [address] Mvmg, Gml Mobile Home Draw [address] [place] [address] 03/05/2024 10:45 AM EDT Office Visit Hematology/Oncology [facility] [place] 200 [facility] [place] [phone] Morgan Vásquez MD 200 [facility] [place] [address] 03/05/2024 11:15 AM EDT Hem/Onc Treatment Hematology/Oncology Treatment, [place] [facility] [phone] Kenyt[place], Chair 3 Hem Onc Scenery 200 [place] [address] 03/11/2024 7:05 AM EDT Laboratory Lab Mobile Phlebotomy [facility] [address] [place] [address] Mvmg, Gml Mobile Home Draw [address]20 [place] [address] 03/18/2024 7:05 AM EST Laboratory Lab Mobile Phlebotomy [facility] [address] [facility] [address] Mvmg, Gml Mobile Home Draw [address] [facility] [address] 03/25/2024 7:05 AM EST Laboratory Lab Mobile Phlebotomy [facility] [address] [facility] [address] Mvmg, Gml Mobile Home Draw [address] [facility] [address] 04/01/2024 7:00 AM EST Laboratory Lab Mobile Phlebotomy [facility] [address] [place] [address] Mvmg, Gml Mobile Home Draw [address] [facility] [address] 04/08/2024 7:05 AM EST Laboratory Lab Mobile Phlebotomy [facility] [address] [facility] [address] Mvmg, Gml Mobile Home Draw [address] [facility] [address] 04/15/2024 7:05 AM EST Laboratory Lab Mobile Phlebotomy [facility] [address] [place] [address] Mvmg, Gml Mobile Home Draw [address] [facility] [address] 04/22/2024 7:05 AM EST Laboratory Lab Mobile Phlebotomy [facility] [address] [facility] [address] Mvmg, Gml Mobile Home Draw [address] [facility] [address] 04/29/2024 7:05 AM EST Laboratory Lab Mobile Phlebotomy [facility] [address] [facility] [address] Mvmg, Gml Mobile Home Draw [address] [facility] [address] 05/05/2024 7:05 AM EST Laboratory Lab Mobile Phlebotomy [facility] [address] [facility] [place], [place] [address] Mvmg, Gml Mobile Home Draw [address] [place] [address] 07/28/2024 7:00 AM EDT Office Visit Neurology [facility] 200 [facility] [place] [address] Sandrita Pineda PA-C [address] [place] [address] 09/02/2024 8:20 AM EDT Office Visit Pulmonary Medicine, [facility] 132 [facility] [place] [address] Ish Caba MD [address] [facility] [place] [address] 05/03/2025 7:40 AM EST Office Visit Dermatology [address] [place] [address] Albina Romo PA-C [address] [place] [address] [place] [address] Health Maintenance Due Date Last Done Comments [...] encounter Medical Devices Implanted Type Area Licensed Guide Device Identifier Shelf Expiration Date Model / Serial / Lot Mesh Plug Xlarge [id number] - [id number] Implanted:Qty: 1 on 12/09/2020 by John Zaragoza MD at OR [facility] Left: Pamin ROB BARD : DAVOL 05/09/2023 [id number] / / [id number] documented as of this encounter Visit Diagnoses [...] Power of Attor coco? No Care Teams Linter Tender Relationship Specialty Start Date End Date Michael Collins MD [address] [place] [address] [place] [address] PCP - General Internal Medicine 03/01/14 documented as of this encounter
--- OUTSIDE RECORDS SUMMARY | 2024-03-26 16:17 | External Medical Summary | Summary of Care ---
Author Name Unknown Organization [facility] Address [address] [facility] [place] [address] Phone [phone] Care Team Providers Care Patrol Commander Name Role Phone Michael Collins MD Primary Care Provi zehra Reason for Visit * Reason Comments Chemotherapy C40D15 Cytoxan * Episode Based Medications (Routine) - Authorized Specialty Diagnoses / Procedures Referred By Contac t Referred To Contact Diagnoses Multiple myeloma not having achieved remission (HCC) Procedures MD DARATUMUMAB, HYALURONIDASE MD INJ, CYCLOPHOSPHAMIDE, NOS Morgan Vásquez MD [address] [place] [address] Anc Hem/Onc Amena You DEPT CLOSED - 03/26/23 200 [facility] [place] [address] Referral ID Status Reason Start Date Expiration Date V isits Requested Visits Authorized [id number] Authorized 05/28/2022 05/12/2099 99 99 Encounter Details Date Type Department Care Team (Latest Contact Info) Description 01/23/2024 8:30 AM EDT Hem/Onc Treatment Hematology/Oncolog y Treatment, [place] [address] [place] [address] Kenyatta, Chair 9 Hem Onc Scenery [address] Am[address] Os[address] [place] [address] Multiple myeloma not having achieved remission (HCC)*; Encounter for antineoplastic chemotherapy Allergies No known active allergiesdocumented as of this encounter (statuses as of 02/24/2024) Medications Medication Sig Dispensed Refills Start Date End Date Status THEOPHYLLINE ER 450 MG PO [id number]:2 tablet at bedtime Take by mouth. Indications: [...] CAPS Take by mouth. Active Multiple Vitamins-Minerals (RUST IMMUNITY SUPPORT) CHEW Take by mouth. Active [...] nostril at bedtime. PATIENT INFORMATION: Kris Galvin [address] [place] [address] [employer]: [employer] ORDER: Please start nocturnal oxygen via nasal [...] signed) Ish Caba MD Pulmonary Medicine, [address] [place] [address] [place] [facility] Medical License Number: [id number] 1 Each 3 Active metFORMIN HCl ER [...] as of this encounter (statuses as of 02/24/2024) Active Problems Problem Noted Date Diagnosed Date [...] as of this encounter (statuses as of 02/24/2024) Resolved Problems Problem Noted Date Diagnosed Date Resolved Date Asthma in remission 08/28/2022 08/29/19 Asthma, mild persistent 08/28/202208/11 Asthma, severe persistent 08/28/2022 Stem cell transplant candidate 08/17/2019 09/02/2019 documented as of this encounter (statuses as of 02/24/2024) Immunizations Name Administration Dates Next Due COVID-19 mRNA, LNP-s, No Pre serve, 2-Dose Series (WiMi5) 01/17/2021,08/05/2020,07/08/2020 COVID-19, LNP-s, No Preserve , Bryant-sucrose, Ages 12+ (WiMi5) 09/26/2021 DTaP Dipth/Tet/Acell Pertussis (Infanrix), Peds 02/23/2021,11/11/2020,09/09/2020 [...] 0 11/1989 - 1995 Smokeless Tobacco: Never Tobacco Cessation:Counseling Given: Not Answered Alcohol Use Standard Drinks/Week Comments No 0 [...] Sign Reading Time Taken Comments Blood Pressure 121/82 01/23/2024 8:28 AM EDT Pulse 89 01/23/2024 8:28 AM EDT Temperature 36.3 C (97.4 F) 01/23/2024 8:28 AM ED T Respiratory Rate 16 01/23/2024 8:28 AM EDT Oxygen Saturation 93% 01/23/2024 8:41 AM EDT Inhaled Oxygen Concentration - - Weight 131.7 kg (290 lb 6.4 oz) 01/23/2024 8:28 AM EDT Height - - Body Mass Index 39.39 10/11/2023 9:26 AM EDT documented in this [...] of this encounter Nursing Notes * Rosario Gaitan, RN - 01/23/2024 12:16 PM EDT Goals: Patient will remain free from injury. Possible barriers to meeting goals: ambulation with IV pole Stability of the patient: Moderately stable - low risk of patient condition declining or worsening Summary regarding today's goals: Met: patient without injury during treatment today. Pt tolerated ordered meds & hydration well. No complaints. Discharged in stable condition. * Rosario Gaitan RN - 01/23/2024 8:41 AM EDT Chair 12 Pt here for C40D15 Cytoxan. Reports being fatigued. Denies any other side effects from treatment. Chemotherapy/Immunotherapy agents: CYTOXAN Consent for chemotherapy drug treatment complete, dated, and signed? yes, date - 10/17/23 Treatment lab parameters met? Yes Dr. Vásquez notified of plt 94 and ok for treatment today Has treatment weight changed > than 10%? No Treatment preauthorized? Yes VITALS Filed Vitals: 01/23/24 0828 01/23/24 0841 BP: 121/82 Pulse: 89 Resp: 16 Temp: 36.3 C (97.4 F) TempSrc: Tympanic SpO2: 89% 93% Weight: 131.7 kg (290 lb 6.4 oz) Urine protein: N/A Patient [...] using the heat function. PRE-TREATMENT ASSESSMENT: NEURO: numbness or tingling: feet, stable and fatigue:yes CV/RESP: denies symptoms GI/: denies symptoms OTHER: denies any additional symptoms PAIN: 0 Safety and Risk for Injury Patient will remain free from injury. Ensure appropriate safety devices are available. Provide and maintain safe environment. documented in this encounter Plan of Treatment Upcoming Encounters Date Type Department Care Team (Late st Contact Info) Description 02/26/2024 7:05 AM EDT Laboratory Lab Mobile Phlebotomy [facility] [address] [place] [address] [facility], Gml Mobile Home Draw [address] [place] [address] 02/27/2024 8:30 AM EDT Hem/Onc Treatment Hematology/[address]cology [address] [phone] Kenyatta, Chair [address] [place] [address] 03/04/2024 7:00 AM EDT Laboratory Lab Mobile Phlebotomy [facility] [address] [place] [address] M[facility], Gml Mobile Home Draw [address] [facility] [place] [address] 03/05/2024 10:45 AM EDT Office Visit Hematology/Oncology [address] [phone] [facility] [address] 03/05/2024 11:15 AM EDT [facility] 200 [facility], [place] [phone] Kenyatta, Chair [address] On[address] [place] [address] 03/11/2024 7:05 AM EDT Laboratory Lab Mobile Phlebotomy [facility] [address] [facility] [place] [address] Mvmg, Gml Mobile Home Draw [address] [place] [address] 03/18/2024 7:05 AM EST Laboratory Lab Mobile Phlebotomy [facility] [address] [place] [address] Mvmg, Gml Mobile Home Draw [address] [place] [address] 03/25/2024 7:05 AM EST Laboratory Lab Mobile Phlebotomy [facility] [address] [place] [address] Mvmg, Gml Mobile Home Draw [address] [place] [address] 04/01/2024 7:00 AM EST Laboratory Lab Mobile Phlebotomy [facility] [address] [place] [address] Mvmg, Gml Mobile Home Draw [address] [place] [address] 04/08/2024 7:05 AM EST Laboratory Lab Mobile Phlebotomy [facility] [address] [place] [address] Mvmg, Gml Mobile Home Draw [address] [place] [address] 04/15/2024 7:05 AM EST Laboratory Lab Mobile Phlebotomy [facility] [address] [place] [address] Mvmg, Gml Mobile Home Draw [address] [place] [address] 04/22/2024 7:05 AM EST Laboratory Lab Mobile Phlebotomy [facility] [address] [place] [address] Mvmg, Gml Mobile Home Draw [address] [place] [address] 04/29/2024 7:05 AM EST Laboratory Lab Mobile Phlebotomy [facility] [address] [place] [address] Mvmg, Gml Mobile Home Draw [address] [place] [address] 05/05/2024 7:05 AM EST Laboratory Lab Mobile Phlebotomy [facility] [address] [facility] [place] [address] M[facility]mg, Gml Mobile Home Draw [address] [facility] [place] [address] 07/28/2024 7:00 AM EDT Office Visit Neurology [facility] 200 [facility] [place] [address] Sandrita Pineda PAManolo [address] [place] [address] 09/02/2024 8:20 AM EDT Office Visit Pulmonary Medicine, [facility] [address] [facility] [place] [address] Ish Caba MD [address] [place] [address] 05/03/2025 7:40 AM EST Office Visit Dermatology [address] [place] [address] Albina Romo PA-C [address] [place] [address] [place] [address] Health Maintenance Due Date Last Done Comments [...] this encounter Medical Devices Implanted Type Area Lube Technician Device Identifier Shelf Expiration Date Model / Serial / Lot Mesh Plug Xlarge [id number] - [id number] Implanted:Qty: 1 on 12/09/2020 by John Zaragoza MD at OR [facility] Left: Pamin CR BARD : LUCINDA 05/09/2023 [id number] / / [id number] documented as of this encounter Visit Diagnoses [...] not tolerated., ONCE, 1 dose, On Lilibeth 01/23/24 at 0915 Start Infusion 01/23/2024 9:17 AM EDT 740 mg 517.4 mL/hr dexAMETHasone (Decadron) tab 40 mg 40 mg, Oral, ONCE, On Lilibeth 01/23/24 at 0900, For 1 dose Given 01/23/2024 8:50 AM EDT 40 mg NSS infusion FOR HYDRATION Intravenous, at 500 mL/hr Administer over 2 Hours, ONCE, 1 dose, On Lilibeth 01/23/24 at 0915 Start Infusion 01/23/2024 9:00 AM EDT 1,000 mL 500 mL/hr NSS infusion FOR HYDRATION Intravenous, at 50 mL/hr Administer over 10 Hours, CONTINUOUS, Starting on Lilibeth 01/23/24 at 0915, Until Lilibeth 01/23/24 at 1618 Start Infusion 01/23/2024 8:56 AM EDT 500 mL 50 mL/hr ondansetron (Zofran) tab 8 mg 8 mg, Oral, ONCE, On Lilibeth 01/23/24 at 0900, For 1 dose Given 01/23/2024 8:45 AM EDT 8 mg documented in this [...] Power of Attor coco? No Care Teams Patrol Commander Relationship Specialty Start Date End Date Michael Collins MD [address] [place] [address] [place] [address] PCP - General Internal Medicine 03/01/14 documented as of this encounter
--- OUTSIDE RECORDS SUMMARY | 2024-03-26 16:17 | External Medical Summary | Summary of Care ---
Author Name Unknown Organization [facility] Address [address] [facility] [address] Phone [phone] Care Team Providers Care Federal Judicial Law Clerk Name Role Phone Michael Collins MD Primary Care Provi zehra Reason for Visit * Reason Comments Chemotherapy C40 D8 Cytoxan for M M * Episode Based Medications (Routine) - Authorized Specialty Diagnoses / Procedures Referred By Contac t Referred To Contact Diagnoses Multiple myeloma not having achieved remission (HCC) Procedures IA DARATUMUMAB, HYALURONIDASE IA INJ, CYCLOPHOSPHAMIDE, NOS Morgan Vásquez MD [address] [place] [address] Anc Hem/Onc Amena You DEPT CLOSED - 03/26/23 200 [facility] [place] [address] Referral ID Status Reason Start Date Expiration Date V isits Requested Visits Authorized [id number] Authorized 05/28/2022 05/12/2099 99 99 Encounter Details Date Type Department Care Team (Latest Contact Info) Description 01/16/2024 8:30 AM EDT Hem/Onc Treatment Hematology/Oncolog y Treatment, [place] [address] [place] [address] Kenyatta, Chair 7 Hem Onc Scenery [address] Amena [address] [place] [address] Multiple myeloma not having achieved remission (HCC)*; Encounter for antineoplastic chemotherapy Allergies No known active allergiesdocumented as of this encounter (statuses as of 02/25/2024) Medications Medication Sig Dispensed Refills Start Date End Date Status THEOPHYLLINE ER 450 MG PO [id number] tablet at bedtime Take by mouth. Indications: [...] at bedtime. PATIENT INFORMATION: Kris Galvin [address] [place] [address] [employer]: [employer] ORDER: Please start nocturnal oxygen via nasal [...] signed) Ish Caba MD Pulmonary Medicine, [address] [address] [facility] Medical License Number: [id number] 1 Each 3 Active metFORMIN HCl ER [...] mRNA, LNP-s, No Pre serve, 2-Dose Series (New WORC (III) Development & Management) 01/17/2021,08/05/2020,07/08/2020 COVID-19, LNP-s, No Preserve , Bryant-sucrose, [...] EDT Laboratory Lab Mobile Phlebotomy [facility] [address] [place] [address] M[facility], Gml Mobile Home Draw [address] [place] [address] 02/27/2024 8:30 AM EDT Hem/Onc Treatment [facility]ematology/[facility]cology [facility], [place] [facility] [phone] Kenyatta, Chair 9 Hem Onc Scenery [address] [place] [address] [place] [address] 03/04/2024 7:00 AM EDT Laboratory Lab Mobile Phlebotomy [facility] [address] [place] [address] Mvmg, Gml Mobile Home Draw [address] [place] [address] 03/05/2024 10:45 AM EDT Office Visit Hematology/Oncology [facility] [place] 200 [facility] [place] [phone] Morgan Vásquez MD 200 [facility] [place] [address] 03/05/2024 11:15 AM EDT Hem/Onc Treatment Hematology/Oncology Treatment, [place] [facility] [phone] Kenyatta, Chair 3 Hem Onc Scenery [address] [place] [address] 03/11/2024 7:05 AM EDT Laboratory Lab Mobile Phlebotomy [facility] [address] [place] [address] Mvmg, Gml Mobile Home Draw 2520 [place] [address] 03/18/2024 7:05 AM EST Laboratory Lab Mobile Phlebotomy [facility] [address] [place] [address] Mvmg, Gml Mobile Home Draw [address] [place] [address] 03/25/2024 7:05 AM EST Laboratory Lab Mobile Phlebotomy [facility] [address] [place] [address] Mvmg, Gml Mobile Home Draw [address] [place] [address] 04/01/2024 7:00 AM EST Laboratory Lab Mobile Phlebotomy [facility] [address] [place] [address] Mvmg, Gml Mobile Home Draw [address]20 [place] [address] 04/08/2024 7:05 AM EST Laboratory Lab Mobile Phlebotomy [facility] [address] [place] [address] Mvmg, Gml Mobile Home Draw [address] [place] [address] 04/15/2024 7:05 AM EST Laboratory Lab Mobile Phlebotomy [facility] [address] [place] [address] Mvmg, Gml Mobile Home Draw [address] [place] [address] 04/22/2024 7:05 AM EST Laboratory Lab Mobile Phlebotomy [facility] [address] [place] [address] Mvmg, Gml Mobile Home Draw [address] [place] [address] 04/29/2024 7:05 AM EST Laboratory Lab Mobile Phlebotomy [facility] [address] [place] [address] Mvmg, Gml Mobile Home Draw [address] [place] [address] 05/05/2024 7:05 AM EST Laboratory Lab Mobile Phlebotomy [facility] [address] [facility] [place], [place] [address] Mvmg, Gml Mobile Home Draw [address] [facility] [place] [address] 07/28/2024 7:00 AM EDT Office Visit Neurology [facility] 200 [facility] [place] [address] Sandrita Pineda PA-C [address] [place] [address] 09/02/2024 8:20 AM EDT Office Visit Pulmonary Medicine, [facility] 132 [facility] [place] [address] Ish Caba MD [address] [facility] [place] [address] 05/03/2025 7:40 AM EST Office Visit Dermatology [address] [place] [address] Albina Romo PA-C [address] [place] [address] [place] [address] Health Maintenance Due Date Last Done Comments [...] this encounter Medical Devices Implanted Type Area Objects Conservator Device Identifier Shelf Expiration Date Model / Serial / Lot Mesh Plug Xlarge [id number] - [id number] Implanted:Qty: 1 on 12/09/2020 by John Zaragoza MD at OR [facility] Left: Pamin ROB BARD : DAVOL 05/09/2023 [id number] / / [id number] documented as of this encounter Visit Diagnoses [...] Power of Attor coco? No Care Teams Federal Judicial Law Clerk Relationship Specialty Start Date End Date Michael Collins MD [address] [place] [address] [place] [address] PCP - General Internal Medicine 03/01/14 documented as of this encounter
--- OUTSIDE RECORDS SUMMARY | 2024-03-26 16:17 | External Medical Summary ---
Author Name Unknown Address Unknown Organization K01:[place] [facility] [place] [address] [facility] [address] [facility] [address] Laboratory Report Ordering Provider Test Date Status KALPESH SERRANO 02/26/2024 08:17:00 Final Observation Date Value Abnormality Reference (Units ) Status WBC, Total 02/26/2024 08:17:00 3.29 Below low normal 4.00-10.80 (K/uL) Final RBC 02/26/2024 08:17:00 4.13 4.50-5.25 (M/uL) Final Hemoglobin 02/26/2024 08:17:00 14.8 14.0-16.8 (g/dL) Final HCT 02/26/2024 08:17:00 45.1 40.0-48.4 (%) Final MCV 02/26/2024 08:17:00 109.2 82.0-99.5 (fL) Final MCH 02/26/2024 08:17:00 35.8 27.0-34.0 (pg) Final MCHC 02/26/2024 08:17:00 32.8 32.0-36.0 (g/dL) Final RDW 02/26/2024 08:17:00 14.2 11.5-15.5 (%) Final Platelets 02/26/2024 08:17:00 99 Below low normal 140-400 (K/uL) Final MPV 02/26/2024 08:17:00 11.0 6.6-11.1 (fL) Final Nucleated erythrocytes/100 leukocytes [Ratio] in Blood by Automated count 02/26/2024 08:17:00 0 <=0 (/100 WBCs) Final Performing Location LABORATORY C - [address] [facility] [address]
--- OUTSIDE RECORDS SUMMARY | 2024-03-26 16:17 | External Medical Summary ---
Author Name Unknown Address Unknown Organization K01:LABORATORY [facility] [place] - [address] [place] [facility] [place] [address] Laboratory Report Ordering Provider Test Date Status KALPESH SERRANO 02/26/2024 08:17:00 Final Observation Date Value Abnormality Reference (Units ) Status BUN 02/26/2024 08:17:00 19 6-20 (mg/dL) Final Creatinine 02/26/2024 08:17:00 1.1 0.6-1.2 (mg/dL) Final Glomerular filtration rate/1.73 sq M.predicted [Volume Rate/Area] in Serum, Plasma or Blood by Creatinine-based formula (CKD-EPI) 02/26/2024 08:17:00 75 >=60 (mL/min) Final eGFR is calculated based on the CKD-EPI 2020 equation. Sodium 02/26/2024 08:17:00 138 135-146 (m mol/L) Final Potassium 02/26/2024 08:17:00 3.8 3.5-5.1 (m mol/L) Final Cl 02/26/2024 08:17:00 98 98-107 (mm ol/L) Final CO2 02/26/2024 08:17:00 28 22-32 (mmo l/L) Final Anion gap 02/26/2024 08:17:00 12 7-15 (mmol /L) Final Glucose 02/26/2024 08:17:00 140 Above high normal 70 -120 (mg/dL) Final Albumin 02/26/2024 08:17:00 4.4 3.8-5.0 (g /dL) Final AST (Aspartate aminotransferase) 02/26/2024 08:17:00 17 10-50 (U/L) Fin al Alk Phos 02/26/2024 08:17:00 124 35-130 (U/ L) Final Bilirubin, Total 02/26/2024 08:17:00 0.4 <=1 .2 (mg/dL) Final Calcium 02/26/2024 08:17:00 9.3 8.4-10.2 ( mg/dL) Final Protein 02/26/2024 08:17:00 5.9 Below low normal 6.0 -8.3 (g/dL) Final ALT (Alanine aminotransferase) 02/26/2024 08:17:00 14 10-50 (U/L) Regis figueroa Performing Location LABORATORY [facility] [place] - [facility] [address]. [facility] [address]
--- OUTSIDE RECORDS SUMMARY | 2024-03-26 16:17 | External Medical Summary | Summary of Care ---
Author Name Unknown Organization [facility] Address [address] [facility] [address] Phone [phone] Care Team Providers Care Greens Or Grounds Superintendent Name Role Phone Michael Collins MD Primary Care Provi zehra Reason for Visit * Reason Comments Chemotherapy C40 D8 Cytoxan for M M * Episode Based Medications (Routine) - Authorized Specialty Diagnoses / Procedures Referred By Contac t Referred To Contact Diagnoses Multiple myeloma not having achieved remission (HCC) Procedures NV DARATUMUMAB, HYALURONIDASE NV INJ, CYCLOPHOSPHAMIDE, NOS Morgan Vásquez MD [address] [place] [address] Anc Hem/Onc Amena You DEPT CLOSED - 03/26/23 200 [facility] [place] [address] Referral ID Status Reason Start Date Expiration Date V isits Requested Visits Authorized [id number] Authorized 05/28/2022 05/12/2099 99 99 Encounter Details Date Type Department Care Team (Latest Contact Info) Description 01/16/2024 8:30 AM EDT Hem/Onc Treatment Hematology/Oncolog y Treatment, [place] [address] [place] [address] Kenyatta, Chair 7 Hem Onc Scenery 200 Amena Osman [place] [address] Multiple myeloma not having achieved remission (HCC)*; Encounter for antineoplastic chemotherapy Allergies No known active allergiesdocumented as of this encounter (statuses as of 02/26/2024) Medications Medication Sig Dispensed Refills Start Date End Date Status THEOPHYLLINE ER 450 MG PO [id number]:2 tablet at bedtime Take by mouth. Indications: [...] CAPS Take by mouth. Active Multiple Vitamins-Minerals ([facility] IMMUNITY SUPPORT) CHEW Take [...] at bedtime. PATIENT INFORMATION: Kris Galvin [address] [place] [address] [employer]ICAL [employer]QUIPMENT COMPANY: [employer] ORDER: Please start nocturnal oxygen via nasal [...] (electronically signed) Ish Caba MD Pulmonary Medicine, [address] [address] [facility] Medical License Number: [id number] 1 Each 3 Active metFORMIN HCl ER [...] mRNA, LNP-s, No Pre serve, 2-Dose Series ([employer]) 01/17/2021,08/05/2020,07/08/2020 COVID-19, LNP-s, No Preserve , Bryant-sucrose, [...] EDT Laboratory Lab Mobile Phlebotomy [facility] [address] [place] [address] Mvmg, Gml Mobile Home Draw [address] [place] [address] Multiple myeloma in remission (HCC) 02/27/2024 8:30 AM EDT Hem/Onc Treatment Hematology/Oncolog y Treatment, [address] [phone] Kenyatta, Chair 9 Hem Onc Scenery [facility] Amena Osman [place] [address] 03/04/2024 7:00 AM EDT Laboratory Lab Mobile Phlebotomy [facility] [address] [place] [address] Mvmg, Gml Mobile Home Draw [address] [place] [address] 03/05/2024 10:45 AM EDT Office Visit [facility] Ken[place] [address] Amena Osman [place] [phone] Morgan Vásquez MD 200 [facility] [place] [address] 03/05/2024 11:15 AM EDT Hem/Onc Treatment Hematology/Oncolog y Treatment, [place] [facility] [phone] Kenyatta, Chair 3 Hem Onc Scenery 200 Amena Osman [place] [address] 03/11/2024 7:05 AM EDT Laboratory Lab Mobile Phlebotomy [facility] [address] [facility] [place] [address] Mvmg, Gml Mobile Home Draw 2520 [facility] [place] [address] 03/18/2024 7:05 AM EST Laboratory Lab Mobile Phlebotomy [facility] [address] [facility] [place] [address] Mvmg, Gml Mobile Home Draw 2520 [facility] [place] [address] 03/25/2024 7:05 AM EST Laboratory Lab Mobile Phlebotomy [facility] 2520 [facility] [place] [address] Mvmg, Gml Mobile Home Draw 2520 [facility] [place] [address] 04/01/2024 7:00 AM EST Laboratory Lab Mobile Phlebotomy [facility] 25[address] [facility] [place] [address] Mvmg, Gml Mobile Home Draw 2520 [facility] [place] [address] 04/08/2024 7:05 AM EST Laboratory Lab Mobile Phlebotomy [facility] [address] [facility] [place] [address] Mvmg, Gml Mobile Home Draw 2520 [facility] [place] [address] 04/15/2024 7:05 AM EST Laboratory Lab Mobile Phlebotomy M[facility] 2520 [facility] [place] [address] Mvmg, Gml Mobile Home Draw 2520 [place] [email or web address] [facility] [place] [address] 04/22/2024 7:05 AM EST Laboratory Lab Mobile Phlebotomy [facility] [address] [place] [place] [address] Mvmg, Gml Mobile Home Draw 2520 [facility] [place] [address] 04/29/2024 7:05 AM EST Laboratory Lab Mobile Phlebotomy M[facility] 25[address] [facility] [place] [address] Mvmg, Gml Mobile Home Draw 2520 [facility] [place] [address] 05/05/2024 7:05 AM EST Laboratory Lab Mobile Phlebotomy M[facility] [address] [facility] [place] [address] Mvmg, Gml Mobile Home Draw 2930 [facility] [place] [address] 07/28/2024 7:00 AM EDT Office Visit Neurology [facility] 200 [facility] [place] [address] Sandrita Pineda PA-C [address] [place] [address] 09/02/2024 8:20 AM EDT Office Visit Pulmonary Medicine, [facility] 132 [facility] [place] [address] Ish Caba MD [address] [facility] [place] [address] 05/03/2025 7:40 AM EST Office Visit Dermatology [address] [place] [address] Albina Romo PA-C [address] [place] [address] [place] [address] Health Maintenance Due Date Last Done Comments [...] this encounter Medical Devices Implanted Type Area Refinery Operator Vapor Recovery Unit Device Identifier Shelf Expiration Date Model / Serial / Lot Mesh Plug Xlarge [id number] - [id number] Implanted:Qty: 1 on 12/09/2020 by John Zaragoza MD at OR [facility] Left: Groin CR BARD : DAVOL 05/09/2023 [id number] / / [id number] documented as of this encounter Visit Diagnoses [...] Power of Attor coco? No Care Teams Greens Or Grounds Superintendent Relationship Specialty Start Date End Date Michael Collins MD [address] [place] [address] [place] [address] PCP - General Internal Medicine 03/01/14 documented as of this encounter
--- OUTSIDE RECORDS SUMMARY | 2024-03-26 16:17 | External Medical Summary | Summary of Care ---
Author Name Unknown Organization [facility] Address [address] [facility] [address] Phone [phone] Care Team Providers Care Carpenter Repair Name Role Phone Michael Collins MD Primary Care Provi zehra Reason for Visit * Reason Comments Chemotherapy C40 D8 Cytoxan for M M * Episode Based Medications (Routine) - Authorized Specialty Diagnoses / Procedures Referred By Contac t Referred To Contact Diagnoses Multiple myeloma not having achieved remission (HCC) Procedures NE DARATUMUMAB, HYALURONIDASE NE INJ, CYCLOPHOSPHAMIDE, NOS Morgan Vásquez MD [address] [place] [address] Anc Hem/Onc Amena You DEPT CLOSED - 03/26/23 200 [facility] [place] [address] Referral ID Status Reason Start Date Expiration Date V isits Requested Visits Authorized [id number] Authorized 05/28/2022 05/12/2099 99 99 Encounter Details Date Type Department Care Team (Latest Contact Info) Description 01/16/2024 8:30 AM EDT Hem/Onc Treatment Hematology/Oncolog y Treatment, [place] [address] [place] [address] Kenyatta, Chair 7 Hem Onc Scenery 200 Amena Osman [place] [address] Multiple myeloma not having achieved remission (HCC)*; Encounter for antineoplastic chemotherapy Allergies No known active allergiesdocumented as of this encounter (statuses as of 02/26/2024) Medications Medication Sig Dispensed Refills Start Date End Date Status THEOPHYLLINE ER 450 MG PO MJ15Julajxuvvzz:2 tablet at bedtime Take by mouth. Indications: [...] at bedtime. PATIENT INFORMATION: Kris Galvin [address] [place] [address] [employer]: [employer] ORDER: Please start nocturnal oxygen via nasal [...] (electronically signed) Ish Caba MD Pulmonary Medicine, [address] [address] [facility] Medical License Number: [id number] 1 Each 3 Active metFORMIN HCl ER [...] mRNA, LNP-s, No Pre serve, 2-Dose Series ([employer]) 01/17/2021,08/05/2020,07/08/2020 COVID-19, LNP-s, No Preserve , Bryant-sucrose, [...] EDT Laboratory Lab Mobile Phlebotomy [facility] [address] [employer] [place] [address] Mvmg, Gml Mobile Home Draw [address] [employer] [place] [address] Multiple myeloma in remission (HCC) 02/27/2024 8:30 AM EDT Hem/Onc Treatment Hematology/Oncolog y Treatment, [address] [phone] Kenyatta, Chair 9 Hem Onc Scenery [facility] Amena Osman [place] [address] 03/04/2024 7:00 AM EDT Laboratory Lab Mobile Phlebotomy [facility] [address] [employer] [place] [address] Mvmg, Gml Mobile Home Draw [address] [employer] [place] [address] 03/05/2024 10:45 AM EDT Office Visit [facility]ology[facility] [place] [address] Amena Osman [place] [phone] Morgan Vásquez MD 200 [facility] [place] [address] 03/05/2024 11:15 AM EDT Hem/Onc Treatment Hematology/Oncolog y Treatment, [place] 200 [facility] [phone] Kenyatta, Chair 3 Hem Onc Scenery 200 Amena Osman [place] [address] 03/11/2024 7:05 AM EDT Laboratory Lab Mobile Phlebotomy [facility] [address] [employer] [facility] [place] [address] Mvmg, Gml Mobile Home Draw 2520 [place] [address] 03/18/2024 7:05 AM EST Laboratory Lab Mobile Phlebotomy M[facility] 2520 [facility] [place] [address] Mvmg, Gml Mobile Home Draw 2520 [facility] [place] [address] 03/25/2024 7:05 AM EST Laboratory Lab Mobile Phlebotomy M[facility] 2520 [place] [address] Mvmg, Gml Mobile Home Draw 2520 [place] [address] 04/01/2024 7:00 AM EST Laboratory Lab Mobile Phlebotomy M[facility] [address] [facility] [place] [address] Mvmg, Gml Mobile Home Draw 2520 [place] [address] 04/08/2024 7:05 AM EST Laboratory Lab Mobile Phlebotomy M[facility] [address] [place] [address] Mvmg, Gml Mobile Home Draw 25[address] [place] [address] 04/15/2024 7:05 AM EST Laboratory Lab Mobile Phlebotomy MVM[facility] 25[address] [facility] [place] [address] Mvmg, Gml Mobile Home Draw [address] [place] [employer] [facility] [place] [address] 04/22/2024 7:05 AM EST Laboratory Lab Mobile Phlebotomy MVM[facility] 25[address] [facility] [place] [address] Mvmg, Gml Mobile Home Draw 2520 [place] [address] 04/29/2024 7:05 AM EST Laboratory Lab Mobile Phlebotomy [facility] [address] [facility] [place] [address] Mvmg, Gml Mobile Home Draw 2520 [place] [address] 05/05/2024 7:05 AM EST Laboratory Lab Mobile Phlebotomy M[facility] [address] [facility] [place] [address] Mvmg, Gml Mobile Home Draw 5720 [facility] [place] [address] 07/28/2024 7:00 AM EDT Office Visit Neurology [facility] 200 [facility] [place] [address] Sandrita Pineda PA-C [address] [place] [address] 09/02/2024 8:20 AM EDT Office Visit Pulmonary Medicine, [facility] 132 [facility] [place] [address] Ish Caba MD [address] [facility] [place] [address] 05/03/2025 7:40 AM EST Office Visit Dermatology [address] [place] [address] Albina Romo PA-C [address] [place] [address] [place] [address] Health Maintenance Due Date Last Done Comments [...] encounter Medical Devices Implanted Type Area Emergency Crew Supervisor Device Identifier Shelf Expiration Date Model / Serial / Lot Mesh Plug Xlarge [id number] - [id number] Implanted:Qty: 1 on 12/09/2020 by John Zaragoza MD at OR [facility] Left: Groin CR BARD : DAVOL 05/09/2023 [id number] / / [id number] documented as of this encounter Visit Diagnoses [...] Power of Attor coco? No Care Teams Carpenter Repair Relationship Specialty Start Date End Date Michael Collins MD [address] [place] [address] [place] [address] PCP - General Internal Medicine 03/01/14 documented as of this encounter
--- OUTSIDE RECORDS SUMMARY | 2024-03-26 16:17 | External Medical Summary ---
Author Name Unknown Address Unknown Organization K01[place] [place] [address] [facility] [place] [address] Laboratory Report Ordering Provider Test Date Status KALPESH SERRANO 02/26/2024 08:17:00 Final Observation Date Value Abnormality Reference (Units ) Status SYNC LEUKOCYTES IN BLOOD BY AUTOMATED COUNT 02/26/2024 08:17:00 3.29 Below low normal 4.00-10.80 (K/uL) Final Segs 02/26/2024 08:17:00 76.1 Above high normal 40.0-75.0 (%) Final Lymphs % 02/26/2024 08:17:00 9.1 Below low normal 18.0-42.0 (%) Final Monos 02/26/2024 08:17:00 11.2 Above high normal 1.0-11.0 (%) Final Eosinophils 02/26/2024 08:17:00 3.0 0.0-6.0 (%) Final Basos 02/26/2024 08:17:00 0.3 0.0-2.0 (%) Final Immature Granulocyte, Percent 02/26/2024 08:17:00 0.3 0.0-2.0 (%) Final Absolute Segs 02/26/2024 08:17:00 2.50 1.80-7.70 (K/uL) Final Lymphs, absolute 02/26/2024 08:17:00 0.30 Below low normal 1.00-4.80 (K/ul) Final Monos, Abs 02/26/2024 08:17:00 0.37 0.00-1.10 (K/uL) Final Eos, Abs 02/26/2024 08:17:00 0.10 0.00-0.70 (K/uL) Final Basos, Abs 02/26/2024 08:17:00 0.01 0.00-0.20 (K/uL) Final Immature Granulocytes, Number 02/26/2024 08:17:00 0.01 0.00-0.20 (K/uL) Final Performing Location [facility] [place] [facility] [address]. [place] [address]
--- OUTSIDE RECORDS SUMMARY | 2024-03-26 16:17 | External Medical Summary | Summary of Care ---
Author Name Unknown Organization [facility] Address [address] [facility] [place] [address] Phone [phone] Care Team Providers Care Tire Rebuilder Name Role Phone Michael Collins MD Primary Care Provi zehra Reason for Visit * Reason Comments Chemotherapy C40D15 Cytoxan * Episode Based Medications (Routine) - Authorized Specialty Diagnoses / Procedures Referred By Contac t Referred To Contact Diagnoses Multiple myeloma not having achieved remission (HCC) Procedures IN DARATUMUMAB, HYALURONIDASE IN INJ, CYCLOPHOSPHAMIDE, NOS Morgan Vásquez MD [address] [place] [address] Anc Hem/Onc Amena You DEPT CLOSED - 03/26/[address] [facility] [place] [address] Referral ID Status Reason Start Date Expiration Date V isits Requested Visits Authorized [id number] Authorized 05/28/2022 05/12/2099 99 99 Encounter Details Date Type Department Care Team (Latest Contact Info) Description 01/23/2024 8:30 AM EDT Hem/Onc Treatment Hematology/Oncolog y Treatment, [place] [address] [place] [address] Kenyatta, Chair 9 Hem Onc Scenery 200 Amena Osman [place] [address] Multiple myeloma not having achieved remission (HCC)*; Encounter for antineoplastic chemotherapy Allergies No known active allergiesdocumented as of this encounter (statuses as of 02/24/2024) Medications Medication Sig Dispensed Refills Start Date End Date Status THEOPHYLLINE ER 450 MG PO HV86Uzynzgxqapa:2 tablet at bedtime Take by mouth. Indications: [...] Take by mouth. Active Multiple Vitamins-Minerals ([facility] IMMUNITY SUPPORT) CHEW Take by [...] nostril at bedtime. PATIENT INFORMATION: Kris Galvin [address] [place] [address] [employer] MEDICAL EQUIPMENT COMPANY: [employer] ORDER: Please start nocturnal oxygen via nasal [...] (electronically signed) Ish Caba MD Pulmonary Medicine, [address] [place] [address] EMB[place] [facility] Medical License Number: [id number] 1 Each 3 Active metFORMIN HCl ER [...] mRNA, LNP-s, No Pre serve, 2-Dose Series ([employer]) 01/17/2021,08/05/2020,07/08/2020 COVID-19, LNP-s, No Preserve , Bryant-sucrose, Ages 12+ ([employer]) 09/26/2021 DTaP Dipth/Tet/Acell Pertussis ([employer]), Peds 02/23/2021,11/11/2020,09/09/2020 [...] EDT Laboratory Lab Mobile Phlebotomy M[facility] [address] [employer] [place] [address] Mvmg, Gml Mobile Home Draw [address] [employer] [place] [address] 02/27/2024 8:30 AM EDT Hem/Onc Treatment Hematology/Oncology [address] [phone] Kenyatta, Chair [address] [place] [address] 03/04/2024 7:00 AM EDT Laboratory Lab Mobile Phlebotomy M[facility] [address] [employer] [place] [address] Mvmg, Gml Mobile Home Draw 2520 [employer] [facility] [place] [address] 03/05/2024 10:45 AM EDT Office Visit Hematology/Oncology [address] [phone] Morgan Vásquez MD 200 [facility] [address] 03/05/2024 11:15 AM EDT Hem[facility] 200 [facility] [place] [phone] Kenyatta, Chair 3 Hem On[address] [place] [address] 03/11/2024 7:05 AM EDT Laboratory Lab Mobile Phlebotomy M[facility] [address] [employer] [place] [address] Mvmg, Gml Mobile Home Draw 2520 [place] [address] 03/18/2024 7:05 AM EST Laboratory Lab Mobile Phlebotomy M[facility] [address] [place] [address] Mvmg, Gml Mobile Home Draw 2520 [place] [address] 03/25/2024 7:05 AM EST Laboratory Lab Mobile Phlebotomy M[facility] [address] [place] [address] Mvmg, Gml Mobile Home Draw 2520 [place] [address] 04/01/2024 7:00 AM EST Laboratory Lab Mobile Phlebotomy M[facility] [address] [place] [address] Mvmg, Gml Mobile Home Draw 2520 [place] [address] 04/08/2024 7:05 AM EST Laboratory Lab Mobile Phlebotomy M[facility] [address] [place] [address] Mvmg, Gml Mobile Home Draw 2520 [place] [address] 04/15/2024 7:05 AM EST Laboratory Lab Mobile Phlebotomy M[facility] [address] [place] [address] Mvmg, Gml Mobile Home Draw 2520 [place] [address] 04/22/2024 7:05 AM EST Laboratory Lab Mobile Phlebotomy M[facility] [address] [place] [address] Mvmg, Gml Mobile Home Draw 2520 [place] [address] 04/29/2024 7:05 AM EST Laboratory Lab Mobile Phlebotomy M[facility] [address] [place] [address] Mvmg, Gml Mobile Home Draw 2520 [place] [address] 05/05/2024 7:05 AM EST Laboratory Lab Mobile Phlebotomy M[facility] [address] [facility] [place] [address] Mvmg, Gml Mobile Home Draw 94[address] [facility] [place] [address] 07/28/2024 7:00 AM EDT Office Visit Neurology [facility] 200 [facility] [place] [address] Sandrita Pineda PAManolo [address] [place] [address] 09/02/2024 8:20 AM EDT Office Visit Pulmonary Medicine, [facility] 132 [facility] [place] [address] Ish Caba MD [address] [place] [address] 05/03/2025 7:40 AM EST Office Visit Dermatology [address] [place] [address] Albina Romo PA-C [address] [place] [address] [place] [address] Health Maintenance Due Date Last Done Comments [...] this encounter Medical Devices Implanted Type Area Unloader Device Identifier Shelf Expiration Date Model / Serial / Lot Mesh Plug Xlarge [id number] - [id number] Implanted:Qty: 1 on 12/09/2020 by John Zaragoza MD at OR [facility] Left: Pamin CR BARD : LUCINDA 05/09/2023 [id number] / / [id number] documented as of this encounter Visit Diagnoses [...] Power of Attor coco? No Care Teams Tire Rebuilder Relationship Specialty Start Date End Date Michael Collins MD [address] [place] [address] [place] [address] PCP - General Internal Medicine 03/01/14 documented as of this encounter
--- OUTSIDE RECORDS SUMMARY | 2024-03-26 16:18 | External Medical Summary | Summary of Care ---
Author Name Unknown Organization [facility] Address [address] [facility] [place] [address] Phone [phone] Care Team Providers Care Flat Folder Name Role Phone Michael Collins MD Primary Care Provi zehra Reason for Visit * Reason Comments Chemotherapy C40D15 Cytoxan * Episode Based Medications (Routine) - Authorized Specialty Diagnoses / Procedures Referred By Contac t Referred To Contact Diagnoses Multiple myeloma not having achieved remission (HCC) Procedures [place] DARATUMUMAB, HYALURONIDASE [place] INJ, CYCLOPHOSPHAMIDE, NOS Morgan Vásquez MD [address] [place] [address] Anc Hem/Onc Amena You DEPT CLOSED - 03/26/23 200 [facility] [place] [address] Referral ID Status Reason Start Date Expiration Date V isits Requested Visits Authorized [id number] Authorized 05/28/2022 05/12/2099 99 99 Encounter Details Date Type Department Care Team (Latest Contact Info) Description 01/23/2024 8:30 AM EDT Hem/Onc Treatment Hematology/Oncolog y Treatment, [place] [address] [place] [address] Kenyatta, Chair 9 Hem Onc Scenery [address] Amena Osman [place] [address] Multiple myeloma not having achieved remission (HCC)*; Encounter for antineoplastic chemotherapy Allergies No known active allergiesdocumented as of this encounter (statuses as of 02/24/2024) Medications Medication Sig Dispensed Refills Start Date End Date Status THEOPHYLLINE ER 450 MG PO NP01Gioevqkomty:2 tablet at bedtime Take by mouth. Indications: [...] nostril at bedtime. PATIENT INFORMATION: Kris Galvin [address] [place] [address] [employer]: [employer] ORDER: Please start nocturnal oxygen via nasal [...] (electronically signed) Ish Caba MD Pulmonary Medicine, [address] [place] [address] [place] [facility] Medical License Number: [id number] 1 Each 3 Active metFORMIN HCl ER [...] mRNA, LNP-s, No Pre serve, 2-Dose Series (Enable Injections) 01/17/2021,08/05/2020,07/08/2020 COVID-19, LNP-s, No Preserve , Bryant-sucrose, Ages 12+ (Enable Injections) 09/26/2021 DTaP Dipth/Tet/Acell Pertussis (Infanrix), Peds 02/23/2021,11/11/2020,09/09/2020 [...] EDT Laboratory Lab Mobile Phlebotomy [facility] [address] [employer] [place] [address] Mvmg, Gml Mobile Home Draw [address] [employer] [place] [address] 02/27/2024 8:30 AM EDT Hem/Onc Treatment Hematology/[address]cology [address] [phone] Kenyatta, Chair 9 Hem Onc [address] [place] [address] 03/04/2024 7:00 AM EDT Laboratory Lab Mobile Phlebotomy [facility] [address] [employer] [place] [address] Mvmg, Gml Mobile Home Draw 2520 [facility] [facility] [place] [address] 03/05/2024 10:45 AM EDT Office Visit Hematology/Oncology [address] [phone] [facility] [address] 03/05/2024 11:15 AM EDT [facility] 200 [facility], [place] [phone] Kenyatta, Chair 3 Hem Onc [address] [place] [address] 03/11/2024 7:05 AM EDT Laboratory Lab Mobile Phlebotomy [facility] [address] [employer] [place] [address] Mvmg, Gml Mobile Home Draw 2520 [place] [address] 03/18/2024 7:05 AM EST Laboratory Lab Mobile Phlebotomy [facility] 2520 [place] [address] Mvmg, Gml Mobile Home Draw 2520 [place] [address] 03/25/2024 7:05 AM EST Laboratory Lab Mobile Phlebotomy [facility] 2520 [place] [address] Mvmg, Gml Mobile Home Draw 2520 [place] [address] 04/01/2024 7:00 AM EST Laboratory Lab Mobile Phlebotomy [facility] 2520 [place] [address] Mvmg, Gml Mobile Home Draw 2520 [place] [address] 04/08/2024 7:05 AM EST Laboratory Lab Mobile Phlebotomy [facility] 2520 [place] [address] Mvmg, Gml Mobile Home Draw 2520 [place] [address] 04/15/2024 7:05 AM EST Laboratory Lab Mobile Phlebotomy [facility] 2520 [place] [address] Mvmg, Gml Mobile Home Draw 2520 [place] [address] 04/22/2024 7:05 AM EST Laboratory Lab Mobile Phlebotomy [facility] 2520 [place] [address] Mvmg, Gml Mobile Home Draw 2520 [place] [address] 04/29/2024 7:05 AM EST Laboratory Lab Mobile Phlebotomy [facility] 2520 [place] [address] Mvmg, Gml Mobile Home Draw 2520 [place] [address] 05/05/2024 7:05 AM EST Laboratory Lab Mobile Phlebotomy [facility] 2520 [facility] [place] [address] Mvmg, Gml Mobile Home Draw 6120 [facility] [place] [address] 07/28/2024 7:00 AM EDT Office Visit Neurology [facility] 200 [facility] [place] [address] Sandrita Pineda PAManolo [address] [place] [address] 09/02/2024 8:20 AM EDT Office Visit Pulmonary Medicine, [facility] 132 [facility] [place] [address] Ish Caba MD [address] [place] [address] 05/03/2025 7:40 AM EST Office Visit Dermatology [address] [place] [address] Albina Romo PA-C [address] [place] [address] [place] [address] Health Maintenance Due Date Last Done Comments [...] this encounter Medical Devices Implanted Type Area Rn Gynecology Device Identifier Shelf Expiration Date Model / Serial / Lot Mesh Plug Xlarge [id number] - [id number] Implanted:Qty: 1 on 12/09/2020 by John Zaragoza MD at OR [facility] Left: Pamin CR BARD : LUCINDA 05/09/2023 [id number] / / [id number] documented as of this encounter Visit Diagnoses [...] Power of Attor coco? No Care Teams Flat Folder Relationship Specialty Start Date End Date Michael Collins MD [address] [place] [address] [place] [address] PCP - General Internal Medicine 03/01/14 documented as of this encounter
--- OUTSIDE RECORDS SUMMARY | 2024-03-26 16:18 | External Medical Summary | Summary of Care ---
Author Name Unknown Organization [facility] Address [address] [facility] [place] [address] Phone [phone] Care Team Providers Care Tax Expert Name Role Phone Michael Collins MD Primary Care Provi zehra Reason for Visit * Reason Comments Chemotherapy C40 D22 Cytoxan * Episode Based Medications (Routine) - Authorized Specialty Diagnoses / Procedures Referred By Contac t Referred To Contact Diagnoses Multiple myeloma not having achieved remission (HCC) Procedures [place] DARATUMUMAB, HYALURONIDASE [place] INJ, CYCLOPHOSPHAMIDE, NOS Morgan Vásquez MD [address] [place] [address] Anc Hem/Onc Amena You DEPT CLOSED - 03/26/23 [address] [place] [address] Referral ID Status Reason Start Date Expiration Date V isits Requested Visits Authorized [id number] Authorized 05/28/2022 05/12/2099 99 99 Encounter Details Date Type Department Care Team (Latest Contact Info) Description 01/30/2024 8:30 AM EDT Hem/Onc Treatment Hematology/Oncolog y Treatment, [place] [address] [place] [phone] Kenyatta, Chair 5 Hem Onc Scenery [address] Amena Osman [place] [address] Multiple myeloma not having achieved remission (HCC)*; Encounter for antineoplastic chemotherapy Allergies No known active allergiesdocumented as of this encounter (statuses as of 02/24/2024) Medications Medication Sig Dispensed Refills Start Date End Date Status THEOPHYLLINE ER 450 MG PO BO56Vetbpazeldr:2 tablet at bedtime Take by mouth. Indications: [...] CAPS Take by mouth. Active Multiple Vitamins-Minerals ([facility] IMMUNITY SUPPORT) CHEW Take [...] nostril at bedtime. PATIENT INFORMATION: Kris Galvin [address] [place] [address] [employer]: [employer] ORDER: Please start nocturnal oxygen via nasal [...] signed) Ish Caba MD Pulmonary Medicine, [address] [place] [address] [place] [facility] Medical License Number: [id number] 1 Each 3 Active metFORMIN HCl ER [...] mRNA, LNP-s, No Pre serve, 2-Dose Series (UiTV) 01/17/2021,08/05/2020,07/08/2020 COVID-19, LNP-s, No Preserve , Bryant-sucrose, Ages 12+ (UiTV) 09/26/2021 DTaP Dipth/Tet/Acell Pertussis (Infanrix), Peds 02/23/2021,11/11/2020,09/09/2020 [...] Sign Reading Time Taken Comments Blood Pressure 129/84 01/30/2024 8:40 AM EDT Pulse 89 01/30/2024 8:40 AM EDT Temperature 36.6 C (97.8 F) 01/30/2024 8:40 AM ED T Respiratory Rate 16 01/30/2024 8:40 AM EDT Oxygen Saturation 93% 01/30/2024 8:40 AM EDT Inhaled Oxygen Concentration - - Weight 132.1 kg (291 lb 3.2 oz) 01/30/2024 8:40 AM EDT Height - - Body Mass [...] of this encounter Nursing Notes * Abril Ayers, JOHANN - 01/30/2024 3:16 PM EDT Patient tolerated treatment without difficulty. Goals: Patient will remain free from injury Possible barriers to meeting goals: Ambulating with IV pole Stability of the patient: Moderately stable - low risk of patient condition declining or worsening Summary regarding today's goals: Met: Patient remained free from harm. Pt discharged in stable condition. * Abril Ayers RN - 01/30/2024 8:58 AM EDT Chair 10 Patient here for treatment. Patient complains of increased dizziness. Dr. Vásuqez aware and assessed patient, no new orders. IV hydration started. Chemotherapy/Immunotherapy agents: CYTOXAN Consent for chemotherapy drug treatment complete, dated, and signed? yes, date - 10/17/23 Treatment lab parameters met? Yes Has treatment weight changed > than 10%? No Treatment preauthorized? Yes VITALS Filed Vitals: 01/30/24 0840 BP: 129/84 Pulse: 89 Resp: 16 Temp: 36.6 C (97.8 F) TempSrc: Tympanic SpO2: 93% Weight: 132.1 kg (291 lb 3.2 oz) [...] using the heat function. PRE-TREATMENT ASSESSMENT: NEURO: dizziness: see note CV/RESP: denies symptoms GI/: denies symptoms OTHER: [...] Mobile Phlebotomy [facility] [address] [place], [place] [address] Mvmg, Gml Mobile Home Draw [address] [place] [address] 02/27/2024 8:30 AM EDT Hem[facility] [phone] Kenyatta, Chair 9 Hem Onc [address], [place] [address] 03/04/2024 7:00 AM EDT Laboratory Lab Mobile Phlebotomy [facility] [address] [place] [address] Mvmg, Gml Mobile Home Draw 2520 [facility] [place], [place] [address] 03/05/2024 10:45 AM EDT Office Visit Hematology/Oncology [facility] 200 [facility], [place] [phone] Morgan Vásquez MD 200 [facility], [place] [address] 03/05/2024 11:15 AM EDT Hem[facility]On[facility] 200 [facility], [place] [phone] Kenyatta, Chair 3 Hem Onc [address], [place] [address] 03/11/2024 7:05 AM EDT Laboratory Lab Mobile Phlebotomy [facility] [address], [place] [address] Mvmg, Gml Mobile Home Draw [address] [place], [place] [address] 03/18/2024 7:05 AM EST Laboratory Lab Mobile Phlebotomy [facility] [address] [place], [place] [address] Mvmg, Gml Mobile Home Draw [address] [employer] [address] 03/25/2024 7:05 AM EST Laboratory Lab Mobile Phlebotomy [facility] 2520 [facility] [place] [address] Mvmg, Gml Mobile Home Draw 2520 [facility] [place] [address] 04/01/2024 7:00 AM EST Laboratory Lab Mobile Phlebotomy [facility] 2520 [facility] [place] [address] Mvmg, Gml Mobile Home Draw 2520 [facility] [place] [address] 04/08/2024 7:05 AM EST Laboratory Lab Mobile Phlebotomy [facility] 2520 [facility] [place] [address] Mvmg, Gml Mobile Home Draw 2520 [facility] [place] [address] 04/15/2024 7:05 AM EST Laboratory Lab Mobile Phlebotomy [facility] 2520 [facility] [place] [address] Mvmg, Gml Mobile Home Draw 2520 [facility] [place] [address] 04/22/2024 7:05 AM EST Laboratory Lab Mobile Phlebotomy [facility] 25[address] [facility] [place] [address] Mvmg, Gml Mobile Home Draw 2520 [facility] [place] [address] 04/29/2024 7:05 AM EST Laboratory Lab Mobile Phlebotomy [facility] [address] [facility] [place] [address] Mvmg, Gml Mobile Home Draw 2520 [facility] [place] [address] 05/05/2024 7:05 AM EST Laboratory Lab Mobile Phlebotomy [facility] 25[address] [facility] [place] [address] Mvmg, Gml Mobile Home Draw 2520 [facility] [place] [address] 07/28/2024 7:00 AM EDT Office Visit Neurology [facility] [address] [place] [address] Sandrita Pineda PA-C [address] [place] [address] 09/02/2024 8:20 AM EDT Office Visit Pulmonary Medicine, [facility] 132 [facility] [place] [address] Ish Caba MD [address] [place] [address] 05/03/2025 7:40 AM EST Office Visit Dermatology [address] [place] [address] Albina Romo PA-C [address] [place] [address] [place] [address] Health Maintenance Due Date Last Done Comments [...] this encounter Medical Devices Implanted Type Area Client Care Consultant Device Identifier Shelf Expiration Date Model / Serial / Lot Mesh Plug Xlarge [id number] - [id number] Implanted:Qty: 1 on 12/09/2020 by John Zaragoza MD at OR [facility] Left: Groin CR BARD : DAVOL 05/09/2023 [id number] / / [id number] documented as of this encounter Visit Diagnoses [...] not tolerated., ONCE, 1 dose, On Lilibeth 01/30/24 at 0915 Start Infusion 01/30/2024 9:10 AM EDT 740 mg 517.4 mL/hr dexAMETHasone (Decadron) tab 40 mg 40 mg, Oral, ONCE, On Lilibeth 01/30/24 at 0915, For 1 dose Given 01/30/2024 8:48 AM EDT 40 mg NSS infusion FOR HYDRATION Intravenous, at 500 mL/hr Administer over 2 Hours, ONCE, 1 dose, On Lilibeth 01/30/24 at 0915 Start Infusion 01/30/2024 8:47 AM EDT 1,000 mL 500 mL/hr NSS infusion FOR HYDRATION Intravenous, at 50 mL/hr Administer over 10 Hours, CONTINUOUS, Starting on Lilibeth 01/30/24 at 0915, Until Lilibeth 01/30/24 at 1923 Start Infusion 01/30/2024 8:45 AM EDT 500 mL 50 mL/hr ondansetron (Zofran) tab 8 mg 8 mg, Oral, ONCE, On Lilibeth 01/30/24 at 0915, For 1 dose Given 01/30/2024 8:48 AM EDT 8 mg documented in this [...] Power of Attor coco? No Care Teams Tax Expert Relationship Specialty Start Date End Date Michael Collins MD [address] [place] [address] [place] [address] PCP - General Internal Medicine 03/01/14 documented as of this encounter
--- OUTSIDE RECORDS SUMMARY | 2024-03-26 16:18 | External Medical Summary | Summary of Care ---
Author Name Unknown Organization [facility] Address [address] [facility] [place] [address] Phone [phone] Care Team Providers Care Reimbursement Liaison Name Role Phone Michael Collins MD Primary Care Provi zehra Reason for Visit * Reason Comments Chemotherapy C40 D22 Cytoxan * Episode Based Medications (Routine) - Authorized Specialty Diagnoses / Procedures Referred By Contac t Referred To Contact Diagnoses Multiple myeloma not having achieved remission (HCC) Procedures [place] DARATUMUMAB, HYALURONIDASE [place] INJ, CYCLOPHOSPHAMIDE, NOS Morgan Vásquez MD [address] [place] [address] Anc Hem/Onc Amena You DEPT CLOSED - 03/26/23 [address] [place] [address] Referral ID Status Reason Start Date Expiration Date V isits Requested Visits Authorized [id number] Authorized 05/28/2022 05/12/2099 99 99 Encounter Details Date Type Department Care Team (Latest Contact Info) Description 01/30/2024 8:30 AM EDT Hem/Onc Treatment Hematology/Oncolog y Treatment, [place] [address] [place] [phone] Kenyatta, Chair 5 Hem Onc Scenery [address] Amena Osman [place] [address] Multiple myeloma not having achieved remission (HCC)*; Encounter for antineoplastic chemotherapy Allergies No known active allergiesdocumented as of this encounter (statuses as of 02/24/2024) Medications Medication Sig Dispensed Refills Start Date End Date Status THEOPHYLLINE ER 450 MG PO UA33Xrufqgayeoc:2 tablet at bedtime Take by mouth. Indications: [...] nostril at bedtime. PATIENT INFORMATION: Kris Galvin [address] [place] [address] [employer]: [employer] ORDER: Please start nocturnal oxygen via nasal [...] (electronically signed) Ish Caba MD Pulmonary Medicine, [address] [place] [address] [place] [facility] Medical License Number: [id number] 1 Each 3 Active metFORMIN HCl ER [...] mRNA, LNP-s, No Pre serve, 2-Dose Series ([employer]) 01/17/2021,08/05/2020,07/08/2020 COVID-19, LNP-s, No Preserve , Bryant-sucrose, Ages 12+ ([employer]) 09/26/2021 DTaP Dipth/Tet/Acell Pertussis (Infanrix), Peds 02/23/2021,11/11/2020,09/09/2020 [...] treatment. Patient complains of increased dizziness. Dr. Vásquez aware and assessed patient, no new orders. [...] Mobile Phlebotomy [facility] [address] [place], [place] [address] Mvmg, Gml Mobile Home Draw [address] [place] [address] 02/27/2024 8:30 AM EDT Hem[facility] 200 [facility] [phone] Kenyatta, Chair 9 Hem Onc [address], [place] [address] 03/04/2024 7:00 AM EDT Laboratory Lab Mobile Phlebotomy [facility] [address] [place] [address] Mvmg, Gml Mobile Home Draw 2520 [facility] [place], [place] [address] 03/05/2024 10:45 AM EDT Office Visit Hematology/Oncology [facility] 200 [facility], [place] [phone] Morgan Vásquez MD 200 [facility], [place] [address] 03/05/2024 11:15 AM EDT Hem[facility] 200 [facility], [place] [phone] Kenyatta, Chair 3 Hem Onc [address], [place] [address] 03/11/2024 7:05 AM EDT Laboratory Lab Mobile Phlebotomy [facility] [address], [place] [address] Mvmg, Gml Mobile Home Draw [address] [place], [place] [address] 03/18/2024 7:05 AM EST Laboratory Lab Mobile Phlebotomy [facility] [address] [place], [place] [address] Mvmg, Gml Mobile Home Draw 25[address] [place] [address] 03/25/2024 7:05 AM EST Laboratory Lab Mobile Phlebotomy [facility] 2520 [place] [address] Mvmg, Gml Mobile Home Draw 2520 [place] [address] 04/01/2024 7:00 AM EST Laboratory Lab Mobile Phlebotomy [facility] [address] [place] [address] Mvmg, Gml Mobile Home Draw 2520 [place] [address] 04/08/2024 7:05 AM EST Laboratory Lab Mobile Phlebotomy [facility] [address] [place] [address] Mvmg, Gml Mobile Home Draw 2520 [place] [address] 04/15/2024 7:05 AM EST Laboratory Lab Mobile Phlebotomy [facility] 25[address] [place] [address] Mvmg, Gml Mobile Home Draw 2520 [place] [address] 04/22/2024 7:05 AM EST Laboratory Lab Mobile Phlebotomy [facility] 25[address] [place] [address] Mvmg, Gml Mobile Home Draw 2520 [place] [address] 04/29/2024 7:05 AM EST Laboratory Lab Mobile Phlebotomy [facility] [address] [place] [address] Mvmg, Gml Mobile Home Draw [address] [place] [address] 05/05/2024 7:05 AM EST Laboratory Lab Mobile Phlebotomy [facility] 25[address] [place] [address] Mvmg, Gml Mobile Home Draw 2520 [place] [address] 07/28/2024 7:00 AM EDT Office Visit Neurology [facility] [address] [place] [address] Sandrita Pineda PA-C [address] [place] [address] 09/02/2024 8:20 AM EDT Office Visit Pulmonary Medicine, [facility] 132 [facility] [place] [address] Ish Caba MD [address] [place] [address] 05/03/2025 7:40 AM EST Office Visit Dermatology [address] [place] [address] Albina Romo PA-C [address] [place] [address] [place] [address] Health Maintenance Due Date Last Done Comments [...] this encounter Medical Devices Implanted Type Area Manager Quality Improvement Device Identifier Shelf Expiration Date Model / Serial / Lot Mesh Plug Xlarge [id number] - [id number] Implanted:Qty: 1 on 12/09/2020 by John Zaragoza MD at OR [facility] Left: Groin CR BARD : DAVOL 05/09/2023 [id number] / / [id number] documented as of this encounter Visit Diagnoses [...] Power of Attor coco? No Care Teams Reimbursement Liaison Relationship Specialty Start Date End Date Michael Collins MD [address] [place] [address] [place] [address] PCP - General Internal Medicine 03/01/14 documented as of this encounter
--- OUTSIDE RECORDS SUMMARY | 2024-03-26 16:18 | External Medical Summary | Summary of Care ---
Author Name Unknown Organization [facility] Address [address] [facility] [place] [address] Phone [phone] Care Team Providers Care Electrical Assembler Name Role Phone Michael Collins MD Primary Care Provi zehra Reason for Visit * Reason Comments Chemotherapy C40 D22 Cytoxan * Episode Based Medications (Routine) - Authorized Specialty Diagnoses / Procedures Referred By Contac t Referred To Contact Diagnoses Multiple myeloma not having achieved remission (HCC) Procedures [place] DARATUMUMAB, HYALURONIDASE [place] INJ, CYCLOPHOSPHAMIDE, NOS Morgan Vásquez MD [address] [place] [address] Anc Hem/Onc Amena You DEPT CLOSED - 03/26/23 [address] [place] [address] Referral ID Status Reason Start Date Expiration Date V isits Requested Visits Authorized [id number] Authorized 05/28/2022 05/12/2099 99 99 Encounter Details Date Type Department Care Team (Latest Contact Info) Description 01/30/2024 8:30 AM EDT Hem/Onc Treatment Hematology/Oncolog y Treatment, [place] [address] [place] [address] Kenyatta, Chair 5 Hem Onc Scenery 200 Amena Osman [place] [address] Multiple myeloma not having achieved remission (HCC)*; Encounter for antineoplastic chemotherapy Allergies No known active allergiesdocumented as of this encounter (statuses as of 02/24/2024) Medications Medication Sig Dispensed Refills Start Date End Date Status THEOPHYLLINE ER 450 MG PO MW31Djcdamxqmfi:2 tablet at bedtime Take by mouth. Indications: [...] CAPS Take by mouth. Active Multiple Vitamins-Minerals ([facility] IMMUNITY SUPPORT) CHEW Take by [...] nostril at bedtime. PATIENT INFORMATION: Kris Galvin [address] [place] [address] [employer]: [employer] ORDER: Please start nocturnal oxygen via nasal [...] signed) Ish Caba MD Pulmonary Medicine, [address] [place] [address] [place] [facility] Medical License Number: [id number] 1 Each 3 Active metFORMIN HCl ER [...] mRNA, LNP-s, No Pre serve, 2-Dose Series ([employer]) 01/17/2021,08/05/2020,07/08/2020 COVID-19, LNP-s, No Preserve , Bryant-sucrose, Ages 12+ ([employer]ocada) 09/26/2021 DTaP Dipth/Tet/Acell Pertussis (Infanrix), Peds 02/23/2021,11/11/2020,09/09/2020 [...] Mobile Phlebotomy [facility] [address] [place], [place] [address] Mvmg, Gml Mobile Home Draw [address] [place] [address] 02/27/2024 8:30 AM EDT [facility] 200 [facility] [phone] Kenyatta, Chair 9 Hem Onc [address], [place] [address] 03/04/2024 7:00 AM EDT Laboratory Lab Mobile Phlebotomy [facility] [address] [place] [address] M[facility]mg, Gml Mobile Home Draw 2520 [facility] [place], [place] [address] 03/05/2024 10:45 AM EDT Office Visit Hematology/Oncology [facility] 200 [facility], [place] [phone] Morgan Vásquez MD 200 [facility], [place] [address] 03/05/2024 11:15 AM EDT Hem[facility] 200 [facility], [place] [phone] Kenyatta, Chair 3 Hem Onc [address], [place] [address] 03/11/2024 7:05 AM EDT Laboratory Lab Mobile Phlebotomy [facility] [address], [place] [address] Mvmg, Gml Mobile Home Draw [address] [place], [place] [address] 03/18/2024 7:05 AM EST Laboratory Lab Mobile Phlebotomy [facility] [address] [place], [place] [address] Mvmg, Gml Mobile Home Draw [address] [place] [address] 03/25/2024 7:05 AM EST Laboratory Lab Mobile Phlebotomy [facility] 2520 [place] [address] Mvmg, Gml Mobile Home Draw 2520 [facility] [place] [address] 04/01/2024 7:00 AM EST Laboratory Lab Mobile Phlebotomy [facility] [address] [place] [address] Mvmg, Gml Mobile Home Draw 2520 [place] [address] 04/08/2024 7:05 AM EST Laboratory Lab Mobile Phlebotomy [facility] [address] [place] [address] Mvmg, Gml Mobile Home Draw 2520 [facility] [place] [address] 04/15/2024 7:05 AM EST Laboratory Lab Mobile Phlebotomy [facility] [address] [place] [address] Mvmg, Gml Mobile Home Draw 2520 [place] [address] 04/22/2024 7:05 AM EST Laboratory Lab Mobile Phlebotomy [facility] 2520 [facility] [place] [address] Mvmg, Gml Mobile Home Draw 2520 [place] [address] 04/29/2024 7:05 AM EST Laboratory Lab Mobile Phlebotomy [facility] [address] [place] [address] Mvmg, Gml Mobile Home Draw [address]20 [place] [address] 05/05/2024 7:05 AM EST Laboratory Lab Mobile Phlebotomy [facility] [address] [facility] [place] [address] Mvmg, Gml Mobile Home Draw 2520 [facility] [place] [address] 07/28/2024 7:00 AM EDT Office Visit Neurology [facility] [address] [place] [address] Sandrita Pineda PA-C [address] [place] [address] 09/02/2024 8:20 AM EDT Office Visit Pulmonary Medicine, [facility] 132 [facility] [place] [address] Ish Caba MD [address] [place] [address] 05/03/2025 7:40 AM EST Office Visit Dermatology [address] [place] [address] Albina Romo PA-C [address] [place] [address] [place] [address] Health Maintenance Due Date Last Done Comments [...] this encounter Medical Devices Implanted Type Area Dimensional Integration Engineer Device Identifier Shelf Expiration Date Model / Serial / Lot Mesh Plug Xlarge [id number] - [id number] Implanted:Qty: 1 on 12/09/2020 by John Zaragoza MD at OR [facility] Left: Groin CR BARD : DAVOL 05/09/2023 [id number] / / [id number] documented as of this encounter Visit Diagnoses [...] of Attor coco? No Care Teams Electrical Assembler Relationship Specialty Start Date End Date Michael Collins MD [address] [place] [address] [place] [address] PCP - General Internal Medicine 03/01/14 documented as of this encounter
--- OUTSIDE RECORDS SUMMARY | 2024-03-26 16:18 | External Medical Summary | Summary of Care ---
Author Name Unknown Organization [facility] [address] [facility] [address] Phone [phone] Care Team Providers Care Business Account Manager Name Role Phone Michael Collins MD Primary Care Provi zehra Reason for Visit * Reason Comments Chemotherapy D1 C 41 Cytoxan + Da rzalex * Episode Based Medications (Routine) - Authorized Specialty Diagnoses / Procedures Referred By Contac t Referred To Contact Diagnoses Multiple myeloma not having achieved remission (HCC) Procedures [place] DARATUMUMAB, HYALURONIDASE [place] INJ, CYCLOPHOSPHAMIDE, NOS Morgan Vásquez MD [address] [place] [address] Anc Hem/Onc Amena You DEPT CLOSED - 03/26/23 200 [facility] [place] [address] Referral ID Status Reason Start Date Expiration Date V isits Requested Visits Authorized [id number] Authorized 05/28/2022 05/12/2099 99 99 Encounter Details Date Type Department Care Team (Latest Contact Info) Description 02/06/2024 8:30 AM EDT Hem/Onc Treatment Hematology/Oncolog y Treatment, [place] [address] [place] [address] Kenyatta, Chair 4 Hem Onc Scenery 200 [facility] [place] [address] Multiple myeloma not having achieved remission (HCC)*; Encounter for antineoplastic chemotherapy Allergies No known active allergiesdocumented as of this encounter (statuses as of 02/23/2024) Medications Medication Sig Dispensed Refills Start Date End Date Status THEOPHYLLINE ER 450 MG PO [id number]:2 tablet at bedtime Take by mouth. Indications: [...] CAPS Take by mouth. Active Multiple Vitamins-Minerals ([facility] IMMUNITY SUPPORT) CHEW Take by mouth. Active [...] NEEDED FOR DIARRHEA 60 Tab 1 Active Additional Information Patient not taking.Reported on 02/05/2024 Sildenafil Citrate 100 MG Oral Tablet 1 [...] nostril at bedtime. PATIENT INFORMATION: Kris Galvin [address] [place] [address] [employer]QU[employer]MENT COMPANY: [employer] ORDER: Please start nocturnal oxygen via nasal [...] (electronically signed) Ish Caba MD Pulmonary Medicine, [address] [place] [address] [facility] Medical License Number: [id number] 1 Each 3 Active metFORMIN HCl ER (OSM) 500 MG Oral Tablet Extended Release 24 Hour 1 Tablet. 3 Active oxyCODONE HCl 5 MG Oral Tablet (Oxy IR) TAKE 1 TAB BY MOUTH EVERY 6 HOURS NEEDED FOR PAIN Active Triamcinolone Acetonide 0.1 % External Cream (Aristocort) Apply 2x daily to rashes areas on trunk/arms/legs during winter time mostly. 454 g 3 Active Additional Information Patient not taking.Reported on 02/05/2024 Acyclovir 800 MG Oral Tablet (Zovirax)Indicati ons:Multiple [...] as of this encounter (statuses as of 02/23/2024) Active Problems Problem Noted Date Diagnosed Date [...] as of this encounter (statuses as of 02/23/2024) Resolved Problems Problem Noted Date Diagnosed Date Resolved Date Asthma in remission 08/28/2022 08/29/19 Asthma, mild persistent 08/28/202208/11 Asthma, severe persistent 08/28/2022 Stem cell transplant candidate 08/17/2019 09/02/2019 documented as of this encounter (statuses as of 02/23/2024) Immunizations Name Administration Dates Next Due COVID-19 mRNA, LNP-s, No Pre serve, 2-Dose Series ([employer]) 01/17/2021,08/05/2020,07/08/2020 COVID-19, LNP-s, No Preserve , Bryant-sucrose, Ages 12+ ([employer]) 09/26/2021 COVID-19, MRNA-LNP, 23-24, P F, 30 [...] Sign Reading Time Taken Comments Blood Pressure 118/79 02/06/2024 9:56 AM EDT Pulse 81 02/06/2024 9:56 AM EDT Temperature 36.1 C (97 F) 02/06/2024 9:56 AM EDT Respiratory Rate - - Oxygen Saturation - - Inhaled Oxygen Concentration - - Weight 132.9 kg (293 lb) 02/06/2024 9:56 AM EDT Height - - Body Mass Index 39.74 10/11/2023 9:26 AM EDT documented in this [...] as of this encounter Nursing Notes * Mis Lomeli, RN - 02/06/2024 11:27 AM EDT Goals: Patient will remain free from injury. Possible barriers to meeting goals: ambulation with IV pole. Stability of the patient: Moderately stable - low risk of patient condition declining or worsening Summary regarding today's goals: Met: Patient remained free from injury. Pt tolerated treatment well. Discharged in stable condition. * Mis Lomeli RN - 02/06/2024 9:58 AM EDT Chair 10 Chemotherapy/Immunotherapy agents: CYTOXAN and DARZALEX Consent for chemotherapy drug treatment complete, dated, and signed? yes, date - 10/17/23 cytoxan; 12/29/20 Darzalex Treatment lab parameters met? No, Patodalys , Dr. Vásquez informed, per Dr. Vásquez ok to treat. Has treatment weight changed > than 10%? No Treatment preauthorized? Yes VITALS Filed Vitals: 02/06/24 0956 BP: 118/79 Pulse: 81 Temp: 36.1 C (97 F) TempSrc: Tympanic Weight: 132.9 kg (293 lb) Urine protein: N/A Patient education completed for treatment? Yes Blood transfusion consent signed and complete? NA Return appointment scheduled? Yes Patient had provider visit today? No - If no provider visit must complete Pretreatment Assessment PRE-TREATMENT ASSESSMENT: NEURO: denies symptoms CV/RESP: denies symptoms GI/: denies symptoms OTHER: denies any additional symptoms Fatigue; received flu and covid vaccines in past week. PAIN: 0 Functional Status: Functional status at [...] mcclendon while using the heat function. * Mis Lomeli RN - 02/06/2024 8:53 AM EDT Platelets 80; Ok to treat per Dr. Vásquez. documented in this encounter Plan of Treatment Upcoming Encounters Date Type Department Care Team (Late st Contact Info) Description 02/26/2024 7:05 AM EDT Laboratory Lab Mobile Phlebotomy [facility] [address] [place] [address] Mvmg, Gml Mobile Home Draw 2520 [facility] [place] [address] 02/27/2024 8:30 AM EDT Hem/Onc Treatment Hematology/Oncology Treatment, [place] [address] [place] [address] Park, Chair 9 Hem Onc Scenery 200 [facility] [place] [address] 03/04/2024 7:00 AM EDT Laboratory Lab Mobile Phlebotomy [facility] [address] [place] [address] Mvmg, Gml Mobile Home Draw [address] [place], [place] [address] 03/05/2024 10:45 AM EDT Office Visit Hematology/Oncology [facility] [place] 200 [facility] [place] [phone] Morgan Vásquez MD [address] [place] [address] 03/05/2024 11:15 AM EDT Hem/Onc Treatment Hematology/Oncology Treatment, [place] [address] [place] [phone] Kenyatta, Chair 3 Hem Onc Scenery [address] [facility] [place] [address] 03/11/2024 7:05 AM EDT Laboratory Lab Mobile Phlebotomy [facility] 2520 [place] [address] Mvmg, Gml Mobile Home Draw [address] [place] [address] 03/18/2024 7:05 AM EST Laboratory Lab Mobile Phlebotomy [facility] [address] [place] [address] Mvmg, Gml Mobile Home Draw 2520 [place] [address] 03/25/2024 7:05 AM EST Laboratory Lab Mobile Phlebotomy [facility] [address] [place] [address] Mvmg, Gml Mobile Home Draw 2520 [place] [address] 04/01/2024 7:00 AM EST Laboratory Lab Mobile Phlebotomy [facility] [address] [place] [address] Mvmg, Gml Mobile Home Draw 25[address] [place] [address] 04/08/2024 7:05 AM EST Laboratory Lab Mobile Phlebotomy [facility] [address] [place] [address] Mvmg, Gml Mobile Home Draw [address] [place] [address] 04/15/2024 7:05 AM EST Laboratory Lab Mobile Phlebotomy [facility] [address] [place] [address] Mvmg, Gml Mobile Home Draw 2520 [place] [address] 04/22/2024 7:05 AM EST Laboratory Lab Mobile Phlebotomy [facility] [address] [place] [address] Mvmg, Gml Mobile Home Draw [address] [place], [place] [address] 04/29/2024 7:05 AM EST Laboratory Lab Mobile Phlebotomy [facility] 2520 [facility] [place], [place] [address] Mvmg, Gml Mobile Home Draw [address] [place] [address] 05/05/2024 7:05 AM EST Laboratory Lab Mobile Phlebotomy [facility] 25[address] [facility] [place], [place] [address] Mvmg, Gml Mobile Home Draw 2520 [facility] [place], [place] [address] 07/28/2024 7:00 AM EDT Office Visit Neurology [facility] 200 [facility] [place] [address] Sandrita Pineda PAYeimyC [facility] [place] [address] 09/02/2024 8:20 AM EDT Office Visit Pulmonary Medicine, [facility] 132 [facility] [place] [address] Ish Caba MD [address] [place] [address] 05/03/2025 7:40 AM EST Office Visit Dermatology [address] [place] [address] Albina Romo PA-C [address] [place] [address] [place] [address] Health Maintenance Due Date Last Done Comments [...] this encounter Medical Devices Implanted Type Area Bike Designer Device Identifier Shelf Expiration Date Model / Serial / Lot Mesh Plug Xlarge [id number] - [id number] Implanted:Qty: 1 on 12/09/2020 by John Zaragoza MD at OR [facility] Left: Groin CR BARD : DAVOL 05/09/2023 [id number] / / [id number] documented as of this encounter Visit Diagnoses [...] mg 650 mg, Oral, ONCE, On Lilibeth 02/06/24 at 1015, For 1 dose, Maximum of 4 grams (4000 mg) per day. Given 02/06/2024 9:17 AM EDT 650 mg cycloPHOSphamide (Cytoxan) 740 mg in NSS 250 mL infusion 740 mg (rounded from 735 mg = 300 mg/m2 2.45 m2 Treatment Plan BSA from Recorded weight), IV Piggyback, at 517.4 mL/hr Administer over 30 Minutes, Cyclophosphamide doses over 1g should be in 500 mL. May extend infusion to 1 hour if not tolerated., ONCE, 1 dose, On Lilibeth 02/06/24 at 0945 Start Infusion 02/06/2024 9:40 AM EDT 740 mg 517.4 mL/hr Daratumumab-hyaluronida se-fihj (Darzalex Faspro) 1800 mg-08970 units/ 15 ml subcut inj 15 mL, Subcutaneous, ONCE, On Lilibeth 02/06/24 at 1045, For 1 dose, Inject subcutanteously into abdomen over 3 to 5 minutes Given 02/06/2024 10:44 AM EDT 15 mL Abdomen Right Lower dexAMETHasone (Decadron) tab 40 mg 40 mg, Oral, ONCE, On Lilibeth 02/06/24 at 0945, For 1 dose Given 02/06/2024 9:16 AM EDT 40 mg diphenhydrAMINE (Benadryl) cap 50 mg 50 mg, Oral, ONCE, On Lilibeth 02/06/24 at 1015, For 1 dose Given 02/06/2024 9:17 AM EDT 50 mg NSS infusion FOR HYDRATION Intravenous, at 500 mL/hr Administer over 2 Hours, ONCE, 1 dose, On Lilibeth 02/06/24 at 0945 Start Infusion 02/06/2024 9:08 AM EDT 1,000 mL 500 mL/hr NSS infusion FOR HYDRATION Intravenous, at 50 mL/hr Administer over 10 Hours, CONTINUOUS, Starting on Lilibeth 02/06/24 at 0945, Until Lilibeth 02/06/24 at 1545 Start Infusion 02/06/2024 9:06 AM EDT 500 mL 50 mL/hr ondansetron (Zofran) tab 8 mg 8 mg, Oral, ONCE, On Lilibeth 02/06/24 at 0945, For 1 dose Given 02/06/2024 9:17 AM EDT 8 mg documented in this [...] Power of Attor coco? No Care Teams Business Account Manager Relationship Specialty Start Date End Date Michael Collins MD [address] [facility] [place] [address] PCP - General Internal Medicine 03/01/14 documented as of this encounter
--- OUTSIDE RECORDS SUMMARY | 2024-03-26 16:18 | External Medical Summary | Summary of Care ---
Author Name Unknown Organization [facility] Address [address] [facility] [place] [address] Phone [phone] Care Team Providers Care Shut Off Worker Name Role Phone Michael Collins MD Primary Care Provi zehra Reason for Visit * Reason Comments Chemotherapy C40D15 Cytoxan * Episode Based Medications (Routine) - Authorized Specialty Diagnoses / Procedures Referred By Contac t Referred To Contact Diagnoses Multiple myeloma not having achieved remission (HCC) Procedures [place] DARATUMUMAB, HYALURONIDASE [place] INJ, CYCLOPHOSPHAMIDE, NOS Morgan Vásquez MD [address] [place] [address] Anc Hem/Onc Amena You DEPT CLOSED - 03/26/23 200 [facility] [place] [address] Referral ID Status Reason Start Date Expiration Date V isits Requested Visits Authorized [id number] Authorized 05/28/2022 05/12/2099 99 99 Encounter Details Date Type Department Care Team (Latest Contact Info) Description 01/23/2024 8:30 AM EDT Hem/Onc Treatment Hematology/Oncolog y Treatment, [place] [address] [place] [address] Kenyatta, Chair 9 Hem Onc Scenery 200 Amena Osman [place] [address] Multiple myeloma not having achieved remission (HCC)*; Encounter for antineoplastic chemotherapy Allergies No known active allergiesdocumented as of this encounter (statuses as of 02/24/2024) Medications Medication Sig Dispensed Refills Start Date End Date Status THEOPHYLLINE ER 450 MG PO SP89Bydzhtuxqid:2 tablet at bedtime Take by mouth. Indications: [...] nostril at bedtime. PATIENT INFORMATION: Kris Galvin [address] [place] [address] [employer]QU[employer]MENT COMPANY: [employer] ORDER: Please start nocturnal oxygen via nasal [...] (electronically signed) Ish Caba MD Pulmonary Medicine, [address] [place] [address] [place] [facility] Medical License Number: [id number] 1 Each 3 Active metFORMIN HCl ER [...] mRNA, LNP-s, No Pre serve, 2-Dose Series ([employer]) 01/17/2021,08/05/2020,07/08/2020 COVID-19, LNP-s, No Preserve , Bryant-sucrose, Ages 12+ ([employer]) 09/26/2021 DTaP Dipth/Tet/Acell Pertussis (Infanrix), Peds 02/23/2021,11/11/2020,09/09/2020 [...] EDT Laboratory Lab Mobile Phlebotomy [facility] [address] [employer] [place] [address] Mvmg, Gml Mobile Home Draw [address] [employer] [place] [address] 02/27/2024 8:30 AM EDT Hem/Onc Treatment Hematology/[address]cology [address] [phone] Kenyatta, Chair 9 Hem Onc [address] [place] [address] 03/04/2024 7:00 AM EDT Laboratory Lab Mobile Phlebotomy [facility] [address] [employer] [place] [address] Mvmg, Gml Mobile Home Draw 25[address] [facility] [place] [address] 03/05/2024 10:45 AM EDT Office Visit Hematology/Oncology [address] [phone] Morgan [facility]quez MD 200 [facility] [address] 03/05/2024 11:15 AM EDT [facility] 200 [facility], [place] [phone] Kenyatta, Chair 3 Hem Onc [address] [place] [address] 03/11/2024 7:05 AM EDT Laboratory Lab Mobile Phlebotomy M[facility] [address] [employer] [place] [address] Mvmg, Gml Mobile Home Draw 2520 [place] [address] 03/18/2024 7:05 AM EST Laboratory Lab Mobile Phlebotomy [facility] [address] [place] [address] Mvmg, Gml Mobile Home Draw [address] [place] [address] 03/25/2024 7:05 AM EST Laboratory Lab Mobile Phlebotomy [facility] [address] [place] [address] Mvmg, Gml Mobile Home Draw [address] [place] [address] 04/01/2024 7:00 AM EST Laboratory Lab Mobile Phlebotomy [facility] [address] [place] [address] Mvmg, Gml Mobile Home Draw [address] [place] [address] 04/08/2024 7:05 AM EST Laboratory Lab Mobile Phlebotomy [facility] [address] [place] [address] Mvmg, Gml Mobile Home Draw [address] [place] [address] 04/15/2024 7:05 AM EST Laboratory Lab Mobile Phlebotomy M[facility] [address] [place] [address] Mvmg, Gml Mobile Home Draw [address] [place] [address] 04/22/2024 7:05 AM EST Laboratory Lab Mobile Phlebotomy M[facility] [address] [place] [address] Mvmg, Gml Mobile Home Draw [address] [place] [address] 04/29/2024 7:05 AM EST Laboratory Lab Mobile Phlebotomy [facility] [address] [place] [address] Mvmg, Gml Mobile Home Draw [address] [place] [address] 05/05/2024 7:05 AM EST Laboratory Lab Mobile Phlebotomy [facility] 2520 [facility] [place] [address] Mvmg, Gml Mobile Home Draw 3510 [facility] [place] [address] 07/28/2024 7:00 AM EDT Office Visit Neurology [facility] 200 [facility] [place] [facility] [place] [address] Sandrita Pineda PAManolo [address] [place] [address] 09/02/2024 8:20 AM EDT Office Visit Pulmonary Medicine, [facility] 132 [facility] [place] [address] Ish Caba MD [address] [place] [address] 05/03/2025 7:40 AM EST Office Visit Dermatology [address] [place] [address] Albina Romo PA-C [address] [place] [address] [place] [address] Health Maintenance Due Date Last Done Comments [...] this encounter Medical Devices Implanted Type Area Revenue Inspector Device Identifier Shelf Expiration Date Model / Serial / Lot Mesh Plug Xlarge [id number] - [id number] Implanted:Qty: 1 on 12/09/2020 by John Zaragoza MD at OR [facility] Left: Pamin CR BARD : LUCINDA 05/09/2023 [id number] / / [id number] documented as of this encounter Visit Diagnoses [...] Power of Attor coco? No Care Teams Shut Off Worker Relationship Specialty Start Date End Date Michael Collins MD [address] [place] [address] [place] [address] PCP - General Internal Medicine 03/01/14 documented as of this encounter
--- OUTSIDE RECORDS SUMMARY | 2024-03-26 16:18 | External Medical Summary | Summary of Care ---
Author Name Unknown Organization [facility] Address [address] [facility] [place] [address] Phone [phone] Care Team Providers Care Food And Nutrition Teacher Name Role Phone Michael Collins MD Primary Care Provi zehra Reason for Visit * Reason Comments Chemotherapy C40 D22 Cytoxan * Episode Based Medications (Routine) - Authorized Specialty Diagnoses / Procedures Referred By Contac t Referred To Contact Diagnoses Multiple myeloma not having achieved remission (HCC) Procedures IA DARATUMUMAB, HYALURONIDASE IA INJ, CYCLOPHOSPHAMIDE, NOS Morgan Vásquez MD [address] [place] [address] Anc Hem/Onc Amena You DEPT CLOSED - 03/26/23 [address] [place] [address] Referral ID Status Reason Start Date Expiration Date V isits Requested Visits Authorized [id number] Authorized 05/28/2022 05/12/2099 99 99 Encounter Details Date Type Department Care Team (Latest Contact Info) Description 01/30/2024 8:30 AM EDT Hem/Onc Treatment Hematology/Oncolog y Treatment, [place] [address] [place] [address] Kenyatta, Chair 5 Hem Onc Scenery [address] [place] [address] Multiple myeloma not having achieved remission (HCC)*; Encounter for antineoplastic chemotherapy Allergies No known active allergiesdocumented as of this encounter (statuses as of 02/24/2024) Medications Medication Sig Dispensed Refills Start Date End Date Status THEOPHYLLINE ER 450 MG PO TX09Ghpksnsrlye:2 tablet at bedtime Take by mouth. Indications: [...] nostril at bedtime. PATIENT INFORMATION: Kris Galvin [address] [place] [address] [employer]MENT COMPANY: [email or web address] ORDER: Please start nocturnal oxygen via nasal [...] signed) Ish Caba MD Pulmonary Medicine, [address] [place] [address] [place] [facility] Medical License Number: [id number] 1 Each 3 Active metFORMIN HCl ER [...] mRNA, LNP-s, No Pre serve, 2-Dose Series (Feathr) 01/17/2021,08/05/2020,07/08/2020 COVID-19, LNP-s, No Preserve , Rbyant-sucrose, Ages 12+ (Feathr) 09/26/2021 DTaP Dipth/Tet/Acell Pertussis (Infanrix), Peds 02/23/2021,11/11/2020,09/09/2020 [...] Mobile Phlebotomy [facility] [address] [place], [place] [address] Mvmg, Gml Mobile [facility] Draw [address] [place] [address] 02/27/2024 8:30 AM EDT Hem[facility] [phone] Kenyatta, Chair [address] Hem On[address], [place] [address] 03/04/2024 7:00 AM EDT Laboratory Lab Mobile Phlebotomy [facility] [address] [place] [address] Mvmg, Gml Mobile Home Draw 2520 [facility] [place], [place] [address] 03/05/2024 10:45 AM EDT Office Visit Hematology/Oncology [facility] 200 [facility], [place] [phone] Morgan Vásquez MD 200 [facility], [place] [address] 03/05/2024 11:15 AM EDT Hem[facility]On[facility] 200 [facility], [place] [phone] Kenyatta, Chair 3 Hem Onc [address], [place] [address] 03/11/2024 7:05 AM EDT Laboratory Lab Mobile Phlebotomy [facility] [address], [place] [address] Mvmg, Gml Mobile Home Draw [address] [place], [place] [address] 03/18/2024 7:05 AM EST Laboratory Lab Mobile Phlebotomy [facility] [address] [place], [place] [address] Mvmg, Gml Mobile Home Draw [address] [place] [address] 03/25/2024 7:05 AM EST Laboratory Lab Mobile Phlebotomy [facility] 2520 [place] [address] Mvmg, Gml Mobile Home Draw 2520 [facility] [place] [place] [address] 04/01/2024 7:00 AM EST Laboratory Lab Mobile Phlebotomy [facility] [address] [place] [address] Mvmg, Gml Mobile Home Draw [address] [place] [address] 04/08/2024 7:05 AM EST Laboratory Lab Mobile Phlebotomy [facility] [address] [place] [address] Mvmg, Gml Mobile Home Draw 2520 [facility] [place] [place] [address] 04/15/2024 7:05 AM EST Laboratory Lab Mobile Phlebotomy [facility] [address] [place] [address] Mvmg, Gml Mobile Home Draw [address]20 [place] [address] 04/22/2024 7:05 AM EST Laboratory Lab Mobile Phlebotomy [facility] [address] [facility] [place] [place] [address] Mvmg, Gml Mobile Home Draw 25[address] [place] [address] 04/29/2024 7:05 AM EST Laboratory Lab Mobile Phlebotomy [facility] [address] [place] [address] Mvmg, Gml Mobile Home Draw [address] [place] [address] 05/05/2024 7:05 AM EST Laboratory Lab Mobile Phlebotomy [facility] [address] [facility] [place] [place] [address] Mvmg, Gml Mobile Home Draw [address] [facility] [place] [place] [address] 07/28/2024 7:00 AM EDT Office Visit Neurology [facility] [address] [place] [address] Sandrita Pineda PA-C [address] [place] [address] 09/02/2024 8:20 AM EDT Office Visit Pulmonary Medicine, [facility] 132 [facility] [place] [address] Ish Caba MD [address] [place] [address] 05/03/2025 7:40 AM EST Office Visit Dermatology [address] [place] [address] Albina Romo PA-C [address] [place] [address] [place] [address] Health Maintenance Due Date Last Done Comments [...] this encounter Medical Devices Implanted Type Area Engineer Automated Equipment Device Identifier Shelf Expiration Date Model / Serial / Lot Mesh Plug Xlarge [id number] - [id number] Implanted:Qty: 1 on 12/09/2020 by John Zaragoza MD at OR [facility] Left: Groin CR BARD : DAVOL 05/09/2023 [id number] / / [id number] documented as of this encounter Visit Diagnoses [...] Attor coco? No Care Teams Food And Nutrition Teacher Relationship Specialty Start Date End Date Michael Collins MD [address] [place] [address] [place] [address] PCP - General Internal Medicine 03/01/14 documented as of this encounter
--- OUTSIDE RECORDS SUMMARY | 2024-03-26 16:18 | External Medical Summary | Summary of Care ---
Author Name Unknown Organization [facility] Address [address] [facility] [place] [address] Phone [phone] Care Team Providers Care Patient Admitting Representative Name Role Phone Michael Collins MD Primary Care Provi zehra Reason for Visit * Reason Comments Chemotherapy C40D15 Cytoxan * Episode Based Medications (Routine) - Authorized Specialty Diagnoses / Procedures Referred By Contac t Referred To Contact Diagnoses Multiple myeloma not having achieved remission (HCC) Procedures ME DARATUMUMAB, HYALURONIDASE ME INJ, CYCLOPHOSPHAMIDE, NOS Morgan Vásquez MD [address] [place] [address] Anc Hem/Onc Amena You DEPT CLOSED - 03/26/23 200 [facility] [place] [address] Referral ID Status Reason Start Date Expiration Date V isits Requested Visits Authorized [id number] Authorized 05/28/2022 05/12/2099 99 99 Encounter Details Date Type Department Care Team (Latest Contact Info) Description 01/23/2024 8:30 AM EDT Hem/Onc Treatment Hematology/Oncolog y Treatment, [place] [address] [place] [phone] Kenyatta, Chair 9 Hem Onc Scenery [address] [place] [address] Multiple myeloma not having achieved remission (HCC)*; Encounter for antineoplastic chemotherapy Allergies No known active allergiesdocumented as of this encounter (statuses as of 02/24/2024) Medications Medication Sig Dispensed Refills Start Date End Date Status THEOPHYLLINE ER 450 MG PO XQ31Rxtbgapfeds:2 tablet at bedtime Take by mouth. Indications: [...] Take by mouth. Active Multiple Vitamins-Minerals ([facility] IMMUNITY SUPPORT) CHEW Take by mouth. Active [...] nostril at bedtime. PATIENT INFORMATION: Kris Galvin [address] [place] [address] [employer] MEDICAL EQUIPMENT COMPANY: [employer] ORDER: Please start nocturnal oxygen via nasal [...] signed) Ish Caba MD Pulmonary Medicine, [address] [place] [address] [place] [facility] Medical License Number: [id number] 1 Each 3 Active metFORMIN HCl ER [...] mRNA, LNP-s, No Pre serve, 2-Dose Series ([employer]) 01/17/2021,08/05/2020,07/08/2020 COVID-19, LNP-s, No Preserve , Bryant-sucrose, Ages 12+ ([employer]) 09/26/2021 DTaP Dipth/Tet/Acell Pertussis (Infanrix), Peds 02/23/2021,11/11/2020,09/09/2020 [...] EDT Laboratory Lab Mobile Phlebotomy [facility] [address] [employer] [place] [address] Mvmg, Gml Mobile Home Draw [address] [employer] [place] [address] 02/27/2024 8:30 AM EDT Hem/Onc Treatment Hematology/[address]cology [address] [phone] Kenyatta, Chair 9 Hem Onc [address] [place] [address] 03/04/2024 7:00 AM EDT Laboratory Lab Mobile Phlebotomy [facility] [address] [place] [address] Mvmg, Gml Mobile Home Draw 2520 [employer] [facility] [place] [address] 03/05/2024 10:45 AM EDT Office Visit Hematology/Oncology [address] [phone] Morgan Vásquez MD [facility] [address] 03/05/2024 11:15 AM EDT [facility] 200 [facility], [place] [phone] Kenyatta, Chair 3 Hem Onc [address] [place] [address] 03/11/2024 7:05 AM EDT Laboratory Lab Mobile Phlebotomy [facility] [address] [employer] [place] [address] Mvmg, Gml Mobile Home Draw 2520 [place] [address] 03/18/2024 7:05 AM EST Laboratory Lab Mobile Phlebotomy [facility] 2520 [place] [address] Mvmg, Gml Mobile Home Draw 2520 [place] [address] 03/25/2024 7:05 AM EST Laboratory Lab Mobile Phlebotomy [facility] 2520 [place] [address] Mvmg, Gml Mobile Home Draw 2520 [place] [address] 04/01/2024 7:00 AM EST Laboratory Lab Mobile Phlebotomy [facility] 2520 [place] [address] Mvmg, Gml Mobile Home Draw 2520 [place] [address] 04/08/2024 7:05 AM EST Laboratory Lab Mobile Phlebotomy [facility] 2520 [place] [address] Mvmg, Gml Mobile Home Draw 2520 [place] [address] 04/15/2024 7:05 AM EST Laboratory Lab Mobile Phlebotomy [facility] [address] [place] [address] Mvmg, Gml Mobile Home Draw 2520 [place] [address] 04/22/2024 7:05 AM EST Laboratory Lab Mobile Phlebotomy [facility] 2520 [place] [address] Mvmg, Gml Mobile Home Draw 2520 [place] [address] 04/29/2024 7:05 AM EST Laboratory Lab Mobile Phlebotomy [facility] [address] [place] [address] Mvmg, Gml Mobile Home Draw 2520 [place] [address] 05/05/2024 7:05 AM EST Laboratory Lab Mobile Phlebotomy [facility] [address] [facility] [place] [address] Mvmg, Gml Mobile Home Draw [address] [facility] [place] [address] 07/28/2024 7:00 AM EDT Office Visit Neurology [facility] 200 [facility] [place] [address] Sandrita Pineda PAManolo [address] [place] [address] 09/02/2024 8:20 AM EDT Office Visit Pulmonary Medicine, [facility] 132 [facility] [place] [address] Ish Caba MD [address] [place] [address] 05/03/2025 7:40 AM EST Office Visit Dermatology [address] [place] [address] Albina Romo PA-C [address] [place] [address] [place] [address] Health Maintenance Due Date Last Done Comments [...] this encounter Medical Devices Implanted Type Area Installer Soft Top Device Identifier Shelf Expiration Date Model / Serial / Lot Mesh Plug Xlarge [id number] - [id number] Implanted:Qty: 1 on 12/09/2020 by John Zaragoza MD at OR [facility] Left: Pamin CR BARD : LUCINDA 05/09/2023 [id number] / / [id number] documented as of this encounter Visit Diagnoses [...] Power of Attor coco? No Care Teams Patient Admitting Representative Relationship Specialty Start Date End Date Michael Collins MD [address] [place] [address] [place] [address] PCP - General Internal Medicine 03/01/14 documented as of this encounter
--- OUTSIDE RECORDS SUMMARY | 2024-03-26 16:18 | External Medical Summary | Summary of Care ---
Author Name Unknown Organization [facility] Address [address] [facility] [place] [address] Phone [phone] Care Team Providers Care Transmission Rebuilder Name Role Phone Michael Collins MD Primary Care Provi zehra Reason for Visit * Reason Comments Chemotherapy C40 D22 Cytoxan * Episode Based Medications (Routine) - Authorized Specialty Diagnoses / Procedures Referred By Contac t Referred To Contact Diagnoses Multiple myeloma not having achieved remission (HCC) Procedures NE DARATUMUMAB, HYALURONIDASE NE INJ, CYCLOPHOSPHAMIDE, NOS Morgan Vásquez MD [address] [place] [address] Anc Hem/Onc Amena You DEPT CLOSED - 03/26/23 [address] [place] [address] Referral ID Status Reason Start Date Expiration Date V isits Requested Visits Authorized [id number] Authorized 05/28/2022 05/12/2099 99 99 Encounter Details Date Type Department Care Team (Latest Contact Info) Description 01/30/2024 8:30 AM EDT Hem/Onc Treatment Hematology/Oncolog y Treatment, [place] [address] [place] [phone] Kenyatta, Chair 5 Hem Onc [address]enery [address]ena [address] [place] [address] Multiple myeloma not having achieved remission (HCC)*; Encounter for antineoplastic chemotherapy Allergies No known active allergiesdocumented as of this encounter (statuses as of 02/24/2024) Medications Medication Sig Dispensed Refills Start Date End Date Status THEOPHYLLINE ER 450 MG PO RL13Ywquwekpjmn:2 tablet at bedtime Take by mouth. Indications: [...] Take by mouth. Active Multiple Vitamins-Minerals ([facility] IMMUNITY SUPPORT) CHEW Take by mouth. Active [...] nostril at bedtime. PATIENT INFORMATION: Kris Galvin [address] [place] [address] [employer] MEDICAL EQUIPMENT COMPANY: [employer] ORDER: Please start nocturnal oxygen via nasal [...] signed) Ish Caba MD Pulmonary Medicine, [address] [place] [address] [place] [facility] Medical License Number: [id number] 1 Each 3 Active metFORMIN HCl ER [...] mRNA, LNP-s, No Pre serve, 2-Dose Series (Clean PET) 01/17/2021,08/05/2020,07/08/2020 COVID-19, LNP-s, No Preserve , Bryant-sucrose, Ages 12+ (Clean PET) 09/26/2021 DTaP Dipth/Tet/Acell Pertussis (Infanrix), Peds 02/23/2021,11/11/2020,09/09/2020 [...] Mobile Phlebotomy [facility] [address] [place], [place] [address] Mvmg, Gml Mobile Home Draw [address] [place] [address] 02/27/2024 8:30 AM EDT Hem[facility] [address] [facility] [phone] Kenyatta, Chair 9 Hem On[address], [place] [address] 03/04/2024 7:00 AM EDT Laboratory Lab Mobile Phlebotomy [facility] [address] [place] [address] Mvmg, Gml Mobile Home Draw 2520 [facility] [place], [place] [address] 03/05/2024 10:45 AM EDT Office Visit Hematology/Oncology [facility] 200 [facility], [place] [phone] Morgan Vásquez MD 200 [facility], [place] [address] 03/05/2024 11:15 AM EDT Hem[facility] 200 [facility], [place] [phone] Kenyatta, Chair 3 Hem Onc [address], [place] [address] 03/11/2024 7:05 AM EDT Laboratory Lab Mobile Phlebotomy [facility] [address], [place] [address] Mvmg, Gml Mobile Home Draw [address] [place], [place] [address] 03/18/2024 7:05 AM EST Laboratory Lab Mobile Phlebotomy [facility] [address] [place], [place] [address] Mvmg, Gml Mobile Home Draw [address] [place] [address] 03/25/2024 7:05 AM EST Laboratory Lab Mobile Phlebotomy [facility] 2520 [place] [address] Mvmg, Gml Mobile Home Draw 2520 [facility] [place] [address] 04/01/2024 7:00 AM EST Laboratory Lab Mobile Phlebotomy [facility] 2520 [place] [address] Mvmg, Gml Mobile Home Draw 2520 [place] [address] 04/08/2024 7:05 AM EST Laboratory Lab Mobile Phlebotomy [facility] 25[address] [place] [address] Mvmg, Gml Mobile Home Draw 2520 [facility] [place] [address] 04/15/2024 7:05 AM EST Laboratory Lab Mobile Phlebotomy [facility] 25[address] [place] [address] Mvmg, Gml Mobile Home Draw 2520 [place] [address] 04/22/2024 7:05 AM EST Laboratory Lab Mobile Phlebotomy [facility] 25[address] [facility] [place] [address] Mvmg, Gml Mobile Home Draw 2520 [place] [address] 04/29/2024 7:05 AM EST Laboratory Lab Mobile Phlebotomy [facility] [address] [place] [address] Mvmg, Gml Mobile Home Draw 2520 [place] [address] 05/05/2024 7:05 AM EST Laboratory Lab Mobile Phlebotomy [facility] [address] [facility] [place] [address] Mvmg, Gml Mobile Home Draw 2520 [facility] [place] [address] 07/28/2024 7:00 AM EDT Office Visit Neurology [facility] [address] [place] [address] Sandrita Pineda PA-C [address] [place] [address] 09/02/2024 8:20 AM EDT Office Visit Pulmonary Medicine, [facility] 132 [facility] [place] [address] Ish Caba MD [address] [place] [address] 05/03/2025 7:40 AM EST Office Visit Dermatology [address] [place] [address] Albina Romo PA-C [address] [place] [address] [place] [address] Health Maintenance Due Date Last Done Comments [...] encounter Medical Devices Implanted Type Area Rn Research Device Identifier Shelf Expiration Date Model / Serial / Lot Mesh Plug Xlarge [id number] - [id number] Implanted:Qty: 1 on 12/09/2020 by John Zaragoza MD at OR [facility] Left: Groin CR BARD : DAVOL 05/09/2023 [id number] / / [id number] documented as of this encounter Visit Diagnoses [...] Power of Attor coco? No Care Teams Transmission Rebuilder Relationship Specialty Start Date End Date Michael Collins MD [address] [place] [address] [place] [address] PCP - General Internal Medicine 03/01/14 documented as of this encounter
--- OUTSIDE RECORDS SUMMARY | 2024-03-26 16:19 | External Medical Summary | Summary of Care ---
Author Name Unknown Organization [facility] Address [address] [facility] [place] [address] Phone [phone] Care Team Providers Care Aboriginal Ceremonial Celebrant Name Role Phone Michael Collins MD Primary Care Provi zehra Reason for Visit * Reason Comments eRx-Medication Refill Encounter Details Date Type Department Care Team (Late st Contact Info) Description 02/12/2024 Refill Neurology [facility] [place] [address] [place] [address] Octavia Goins PA-C 200 [facility] [place] [address] Allergies No known active allergiesdocumented as of this encounter (statuses as of 02/12/2024) Medications Medication Sig Dispensed Refills Start Date End Date Status THEOPHYLLINE ER 450 MG PO SH24Rpyaulwrges:2 tablet at bedtime Take by mouth. Indications: [...] CAPS Take by mouth. Active Multiple Vitamins-Minerals ([facility]) CHEW Take by mouth. [...] nostril at bedtime. PATIENT INFORMATION: Kris Galvin [address] [place] [address] [employer] EQUIPMENT [employer]: [employer]obo[employer]/TBD ORDER: Please start nocturnal oxygen via nasal [...] (electronically signed) Ish Caba MD Pulmonary Medicine, [address] [place] [address] [place] [facility] Medical License Number: [id number] 1 Each 3 Active metFORMIN HCl ER [...] AND IN THE EVENING 60 Capsule 4 4 Active Pregabalin 25 MG Oral Capsule [...] as of this encounter (statuses as of 02/12/2024) Active Problems Problem Noted Date Diagnosed Date [...] as of this encounter (statuses as of 02/12/2024) Resolved Problems Problem Noted Date Diagnosed Date Resolved Date Asthma in remission 08/28/2022 08/29/19 Asthma, mild persistent 08/28/202208/11 Asthma, severe persistent 08/28/2022 Stem cell transplant candidate 08/17/2019 09/02/2019 documented as of this encounter (statuses as of 02/12/2024) Immunizations Name Administration Dates Next Due COVID-19 mRNA, LNP-s, No Pre serve, 2-Dose Series ([employer]) 01/17/2021,08/05/2020,07/08/2020 COVID-19, LNP-s, No Preserve , Bryant-sucrose, Ages 12+ ([employer]) 09/26/2021 COVID-19, MRNA-LNP, 23-24, P F, 30 [...] encounter Miscellaneous Notes * Telephone Encounter - Octavia Goins PA-C - 02/12/2024 12:24 PM EDT Signed Prescriptions: Disp Refills Pregabalin 25 MG Oral Capsule (Lyrica) 60 Cap*4 Sig: TAKE 1 CAPSULE BY MOUTH IN THE MORNING AND IN THE EVENINGAuthorizing Provider: OCTAVIA GOINS * Telephone Encounter - Raisa Smith AMEE - 02/12/2024 12:16 PM EDTPending Prescriptions: Disp Refills Pregabalin 25 MG Oral Capsule (Lyrica) 60 Cap*4 Sig: TAKE 1 CAPSULE BY MOUTH IN THE MORNING AND IN THE EVENING * Telephone Encounter - Maria Esther Banegas RP - 02/12/2024 11:59 AM EDTPending Prescriptions: Disp Refills Pregabalin 25 MG Oral Capsule [Pharmacy Me*60 Cap* Sig: TAKE 1 CAPSULE BY MOUTH IN THE MORNING AND IN THE EVENING * Telephone Encounter - Maria Esther Banegas RPh - 02/12/2024 11:59 AM EDT [facility] is currently not authorized to approve refills for the pended medication(s) per refill protocol. Please approve if appropriate. ThanksMaria Esther, PharmD Clinical Pharmacist [facility] ([facility]) [phone] 02/12/2024, 11:59 AM documented in this encounter Plan of Treatment Upcoming Encounters Date Type Department Care Team (Late st Contact Info) Description 02/13/2024 8:30 AM EDT Hem/Onc Treatment Hematology/[address]cology [address] [phone] Kenyatta, Chair 4 Hem Onc [address] [address] 02/19/2024 7:05 AM EDT Laboratory Lab Mobile Phlebotomy [facility] [address] [place] [address] M[facility]mg, Gml [facility] Draw [address] [place] [address] 02/20/2024 8:30 AM EDT Hem/Onc Treatment Hematology/Oncology Treatment, [address] [address] Park, Chair 7 Hem Onc Scenery [address] [place] [address] 02/26/2024 7:05 AM EDT Laboratory Lab Mobile Phlebotomy [facility] [address] [place], [place] [address] Mvmg, Gml Mobile Home Draw [address] [place] [address] 02/27/2024 8:30 AM EDT [facility] 200 [place] [phone] Kenyatta, Chair 9 Hem Onc Scenery 200 [place] [address] 03/04/2024 7:00 AM EDT Laboratory Lab Mobile Phlebotomy [facility] [address] [place], [place] [address] Mvmg, Gml Mobile Home Draw [address] [facility], [place] [address] 03/05/2024 10:45 AM EDT Office Visit Hematology/Oncology [facility] 200 [place] [phone] Morgan Vásquez MD [address] [place] [address] 03/05/2024 11:15 AM EDT Hem[facility] 200 [place] [phone] Kenyatta, Chair 3 Hem Onc Scenery [address] [place] [address] 03/11/2024 7:05 AM EDT Laboratory Lab Mobile Phlebotomy [facility] [address] [place], [place] [address] Mvmg, Gml Mobile Home Draw [address] [place] [address] 03/18/2024 7:05 AM EST Laboratory Lab Mobile Phlebotomy [facility] [address] [place] [address] Mvmg, Gml Mobile Home Draw 2520 [facility] [place] [address] 03/25/2024 7:05 AM EST Laboratory Lab Mobile Phlebotomy [facility] [address] [facility] [place] [address] Mvmg, Gml Mobile Home Draw [address] [facility] [place] [address] 04/01/2024 7:00 AM EST Laboratory Lab Mobile Phlebotomy [facility] [address] [facility] [place] [address] Mvmg, Gml Mobile Home Draw [address] [place] [address] 04/08/2024 7:05 AM EST Laboratory Lab Mobile Phlebotomy [facility] [address] [facility] [place] [address] Mvmg, Gml Mobile Home Draw [address] [place] [address] 04/15/2024 7:05 AM EST Laboratory Lab Mobile Phlebotomy [facility] [address] [facility] [place] [address] Mvmg, Gml Mobile Home Draw 2520 [place] [address] 04/22/2024 7:05 AM EST Laboratory Lab Mobile Phlebotomy [facility] [address] [facility] [place] [address] Mvmg, Gml Mobile Home Draw [address] [place] [address] 04/29/2024 7:05 AM EST Laboratory Lab Mobile Phlebotomy [facility] [address] [facility] [place] [address] Mvmg, Gml Mobile Home Draw [address] [facility] [place] [address] 05/05/2024 7:05 AM EST Laboratory Lab Mobile Phlebotomy [facility] [address] [facility] [place] [address] Mvmg, Gml Mobile Home Draw [address] [facility] [place] [address] 07/28/2024 7:00 AM EDT Office Visit Neurology [facility] [address] [place] [address] Sandrita Pineda PA-C [address] [place] [address] 09/02/2024 8:20 AM EDT Office Visit Pulmonary Medicine, [facility] [address] [facility] [place] [address] Ish Caba MD [address] [place] [address] 05/03/2025 7:40 AM EST Office Visit Dermatology [address] [place] [address] Albina Romo PA-C [address] [place] [address] [place] [address] Health Maintenance Due Date Last Done Comments Depression Screening 1976 Albumin/Creatinine Ratio 1982 Cologuard 2009 Fecal Occult Blood Test 2009 Sigmoidoscopy 2009 Colonoscopy 03/03/2023 03/03/2018, 03/03/2018 Colorectal Cancer Screening 03/03/2023 Lipid Panel 11/18/2024 11/19/2019, 07/11, 07/29/2009 GFR 02/04/2025 02/05/2024, 01/11, 01/22/2024, Additional history exists Diabetes Screening 02/04/2027 02/05/2024, 0 01/29/2024, 01/22/2024, Additional history exists DTap/Tdap Vaccines (4 - [...] encounter Medical Devices Implanted Type Area Air Carrier Maintenance Inspector Device Identifier Shelf Expiration Date Model / Serial / Lot Mesh Plug Xlarge [id number] - [id number] Implanted:Qty: 1 on 12/09/2020 by John Zaragoza MD at OR [facility] Left: Groin CR BARD : DAVOL 05/09/2023 [id number] / / [id number] documented as of this encounter Advance Directives [...] Power of Attor coco? No Care Teams Aboriginal Ceremonial Celebrant Relationship Specialty Start Date End Date Michael Collisn MD [address] [place] [address] [place] [address] PCP - General Internal Medicine 03/01/14 documented as of this encounter
--- OUTSIDE RECORDS SUMMARY | 2024-03-26 16:19 | External Medical Summary ---
Author Name Unknown Address Unknown Organization K01:[facility] [place] [address] [facility] [place] [address] Laboratory Report Ordering Provider Test Date Status KALPESH SERRANO 02/19/2024 08:33:00 Final Observation Date Value Abnormality Reference (Units ) Status SYNC LEUKOCYTES IN BLOOD BY AUTOMATED COUNT 02/19/2024 08:33:00 3.49 Below low normal 4.00-10.80 (K/uL) Final Segs 02/19/2024 08:33:00 74.7 40.0-75.0 (%) Final Lymphs % 02/19/2024 08:33:00 9.5 Below low normal 18.0-42.0 (%) Final Monos 02/19/2024 08:33:00 12.9 Above high normal 1.0-11.0 (%) Final Eosinophils 02/19/2024 08:33:00 2.3 0.0-6.0 (%) Final Basos 02/19/2024 08:33:00 0.3 0.0-2.0 (%) Final Immature Granulocyte, Percent 02/19/2024 08:33:00 0.3 0.0-2.0 (%) Final Absolute Segs 02/19/2024 08:33:00 2.61 1.80-7.70 (K/uL) Final Lymphs, absolute 02/19/2024 08:33:00 0.33 Below low normal 1.00-4.80 (K/ul) Final Monos, Abs 02/19/2024 08:33:00 0.45 0.00-1.10 (K/uL) Final Eos, Abs 02/19/2024 08:33:00 0.08 0.00-0.70 (K/uL) Final Basos, Abs 02/19/2024 08:33:00 0.01 0.00-0.20 (K/uL) Final Immature Granulocytes, Number 02/19/2024 08:33:00 0.01 0.00-0.20 (K/uL) Final Performing Location [facility] [place] [facility] [address] [address]
--- OUTSIDE RECORDS SUMMARY | 2024-03-26 16:19 | External Medical Summary ---
Author Name Unknown Address Unknown Organization K01[place] [place] [address] [place] [facility] [address] Laboratory Report Ordering Provider Test Date Status KALPESH SERRANO 02/12/2024 08:06:00 Final Observation Date Value Abnormality Reference (Units ) Status BUN 02/12/2024 08:06:00 23 Above high normal 6-20 (mg/dL) Final Creatinine 02/12/2024 08:06:00 1.1 0.6-1.2 (mg/dL) Final Glomerular filtration rate/1.73 sq M.predicted [Volume Rate/Area] in Serum, Plasma or Blood by Creatinine-based formula (CKD-EPI) 02/12/2024 08:06:00 78 >=60 (mL/min) Final eGFR is calculated based on the CKD-EPI 2020 equation. Sodium 02/12/2024 08:06:00 138 135-146 (m mol/L) Final Potassium 02/12/2024 08:06:00 4.0 3.5-5.1 (m mol/L) Final Cl 02/12/2024 08:06:00 97 Below low normal 98- 107 (mmol/L) Final CO2 02/12/2024 08:06:00 27 22-32 (mmo l/L) Final Anion gap 02/12/2024 08:06:00 14 7-15 (mmol /L) Final Glucose 02/12/2024 08:06:00 91 70-120 (mg /dL) Final Albumin 02/12/2024 08:06:00 4.7 3.8-5.0 (g /dL) Final AST (Aspartate aminotransferase) 02/12/2024 08:06:00 16 10-50 (U/L) Fin al Alk Phos 02/12/2024 08:06:00 109 35-130 (U/ L) Final Bilirubin, Total 02/12/2024 08:06:00 0.4 <=1 .2 (mg/dL) Final Calcium 02/12/2024 08:06:00 9.0 8.4-10.2 ( mg/dL) Final Protein 02/12/2024 08:06:00 6.2 6.0-8.3 (g /dL) Final ALT (Alanine aminotransferase) 02/12/2024 08:06:00 17 10-50 (U/L) Regis figueroa Performing Location [facility] [place] [address] [facility] [address]
--- OUTSIDE RECORDS SUMMARY | 2024-03-26 16:19 | External Medical Summary | Summary of Care ---
Author Name Unknown Organization [facility] Address [address] [facility] [place] [address] Phone [phone] Care Team Providers Care Security Business Analyst Name Role Phone Michael Collins MD Primary Care Provi zehra Reason for Visit * Reason Comments Chemotherapy C41/D8 -Cytoxan * Episode Based Medications (Routine) - Authorized Specialty Diagnoses / Procedures Referred By Contac t Referred To Contact Diagnoses Multiple myeloma not having achieved remission (HCC) Procedures WA DARATUMUMAB, HYALURONIDASE WA INJ, CYCLOPHOSPHAMIDE, NOS Morgan Vásquez MD [address] [place] [address] Anc Hem/Onc Amena You DEPT CLOSED - 03/26/23 200 [facility] [place] [address] Referral ID Status Reason Start Date Expiration Date V isits Requested Visits Authorized [id number] Authorized 05/28/2022 05/12/2099 99 99 Encounter Details Date Type Department Care Team (Latest Contact Info) Description 02/13/2024 8:30 AM EDT Hem/Onc Treatment Hematology/Oncolog y Treatment, [place] [address] [place] [address] Kenyatta, Chair 4 Hem Onc [facility] [address] [place] [address] Multiple myeloma not having achieved remission (HCC)*; Encounter for antineoplastic chemotherapy Allergies No known active allergiesdocumented as of this encounter (statuses as of 02/13/2024) Medications Medication Sig Dispensed Refills Start Date End Date Status THEOPHYLLINE ER 450 MG PO [id number]:2 tablet at bedtime Take by mouth. Indications: [...] Kris Galvin [address] [place] [address] [employer]: [employer] ORDER: Please start nocturnal oxygen via nasal [...] (electronically signed) Ish Caba MD Pulmonary Medicine, [address] [place] [address] [place] [facility] Medical License Number: [id number] 1 Each 09/21/2022 Active metFORMIN HCl ER [...] as of this encounter (statuses as of 02/13/2024) Active Problems Problem Noted Date Diagnosed Date [...] as of this encounter (statuses as of 02/13/2024) Resolved Problems Problem Noted Date Diagnosed Date Resolved Date Asthma in remission 08/28/2022 08/29/19 Asthma, mild persistent 08/28/2022 0412/2022 Asthma, severe persistent 08/28/2022 Stem cell transplant candidate 08/17/2019 09/02/2019 documented as of this encounter (statuses as of 02/13/2024) Immunizations Name Administration Dates Next Due COVID-19 mRNA, LNP-s, No Pre serve, 2-Dose Series ([employer]) 01/17/2021,08/05/2020,07/08/2020 COVID-19, LNP-s, No Preserve , Bryant-sucrose, Ages 12+ ([employer]) 09/26/2021 COVID-19, MRNA-LNP, 23-24, P F, 30 MCG/0.3 mL, 12 YRS AND ABOVE, IM ([employer]) 02/01/2024 DTaP Dipth/Tet/Acell Pertussis ([employer]), Peds [...] Care Team (Late st Contact Info) Description 02/19/2024 7:05 AM EDT Laboratory Lab Mobile Phlebotomy [facility] [address] [place] [address] Mvmg, Gml Mobile Home Draw [address] [place] [address] 02/20/2024 8:30 AM EDT Hem/Onc Treatment Hematology/Oncology Treatment, [place] [address] [facility] [phone] Kenyatta, Chair 7 Hem Onc [address] [place] [address] 02/26/2024 7:05 AM EDT Laboratory Lab Mobile Phlebotomy [facility] [address] [place] [address] Mvmg, Gml Mobile Home Draw [address] [place] [address] 02/27/2024 8:30 AM EDT Hem/Onc Treatment Hematology/Oncology Treatment, [place] [address] [facility], [place] [phone] Park, Chair 9 Hem Onc [address] [place], [place] [address] 03/04/2024 7:00 AM EDT Laboratory Lab Mobile Phlebotomy [facility] [address] [place] [address] Mvmg, Gml Mobile Home Draw [address] [place] [address] 03/05/2024 10:45 AM EDT Office Visit Hematology/Oncology [facility] [address] [phone] Morgan Vásquez MD 200 [place] [address] 03/05/2024 11:15 AM EDT Hem/Onc Treatment Hematology/Oncology Treatment, [place] [address] [place] [address] Park, Chair 3 Hem Onc Scenery 200 [place] [address] 03/11/2024 7:05 AM EDT Laboratory Lab Mobile Phlebotomy [facility] [address] [place] [address] Mvmg, Gml Mobile Home Draw 2520 [facility] [place], [place] [address] 03/18/2024 7:05 AM EST Laboratory Lab Mobile Phlebotomy [facility] 25[address] [facility] [place], [place] [address] Mvmg, Gml Mobile Home Draw [address] [place] [address] 03/25/2024 7:05 AM EST Laboratory Lab Mobile Phlebotomy [facility] [address] [facility] [place] [address] Mvmg, Gml Mobile Home Draw [address] [place] [address] 04/01/2024 7:00 AM EST Laboratory Lab Mobile Phlebotomy [facility] [address] [facility] [place] [address] Mvmg, Gml Mobile Home Draw [address] [facility] [place] [address] 04/08/2024 7:05 AM EST Laboratory Lab Mobile Phlebotomy [facility] [address] [facility] [place] [address] Mvmg, Gml Mobile Home Draw [address] [facility] [place] [address] 04/15/2024 7:05 AM EST Laboratory Lab Mobile Phlebotomy [facility] [address] [facility] [place] [address] Mvmg, Gml Mobile Home Draw [address] [place] [address] 04/22/2024 7:05 AM EST Laboratory Lab Mobile Phlebotomy [facility] [address] [facility] [place], [place] [address] Mvmg, Gml Mobile Home Draw [address] [facility] [place] [address] 04/29/2024 7:05 AM EST Laboratory Lab Mobile Phlebotomy [facility] [address] [facility] [place] [address] Mvmg, Gml Mobile Home Draw [address] [facility] [place] [address] 05/05/2024 7:05 AM EST Laboratory Lab Mobile Phlebotomy [facility] [address] [employer] [employer] [place], [place] [address] Mvmg, Gml Mobile Home Draw 2520 [facility] [place], [place] [address] 07/28/2024 7:00 AM EDT Office Visit Neurology [facility] 200 [facility] [place], [place] [address] Sandrita Pineda PAYeimyC 21 [facility] [place] [address] 09/02/2024 8:20 AM EDT Office Visit Pulmonary Medicine, [facility] 132 [facility] [place] [address] Ish Caba MD [address] [facility] [place] [address] 05/03/2025 7:40 AM EST Office Visit Dermatology [address] [place] [address] Albina Romo PA-C [address] [place] [address] [place] [address] Health Maintenance Due Date Last Done Comments [...] this encounter Medical Devices Implanted Type Area Coding Assistant Device Identifier Shelf Expiration Date Model / Serial / Lot Mesh Plug Xlarge [id number] - [id number] Implanted:Qty: 1 on 12/09/2020 by John Zaragoza MD at OR [facility] Left: Groin CR BARD : DAVOL 05/09/2023 [id number] / / [id number] documented as of this encounter Visit Diagnoses [...] PRN Other, Hypersensitivity Reaction, Starting on Lilibeth 02/13/24 at 0830, Until Sat02/14/24 at 0829, For 24 hours EPINEPHrine 1 MG/ML inj 0.3 mg 0.3 mg, Intramuscular, ONCE PRN Other, Hypersensitivity Reaction or Anaphylaxis, Starting on Lilibeth 02/13/24 at 0830, Until Sat02/14/24 at 0829, For 24 hours hEParin 100 UNIT/ML Lock Flush inj 500 Units 500 Units (5 mL), IV Lock, PRN Other, IV Flush, Starting on Lilibeth 02/13/24 at 0830, Until Sat02/14/24 at 0829, For 24 hours, Do not flush if lock, PICC, or central line not in place; IV infusing or unable to flush. Hydrocortisone Sod Suc (PF) (Solu-Cortef) inj 100 mg 100 mg, IV Push, ONCE PRN Other, Hypersensitivity Reaction, Starting on Lilibeth 02/13/24 at 0830, Until Sat02/14/24 at 0829, For 24 hours meperidine (Demerol) 25 MG/ML inj 25 mg 25 mg, IV Push, ONCE PRN Shivering, Starting on Lilibeth 02/13/24 at 0830, Until Sat02/14/24 at 0829, For 24 hours NSS infusion FOR HYDRATION Intravenous, at 50 mL/hr Administer over 10 Hours, CONTINUOUS, Starting on Lilibeth 02/13/24 at 0915, Until Discontinued Start Infusion 02/13/2024 8:42 AM EDT 500 mL 50 mL/hr sodium chloride 0.9 % flush central line 10 mL 10 mL, IV Push, PRN Other, IV Flush, Starting on Lilibeth 02/13/24 at 0830, Until Sat02/14/24 at 0829, For 24 hours, Do not flush if [...] ONCE, 1 dose, On Lilibeth 02/13/24 at 0915 Start Infusion 02/13/2024 9:40 AM EDT 740 mg 517.4 mL/hr dexAMETHasone (Decadron) tab 40 mg 40 mg, Oral, ONCE, On Lilibeth 02/13/24 at 0845, For 1 dose Given 02/13/2024 9:10 AM EDT 40 mg NSS infusion FOR HYDRATION Intravenous, at 500 mL/hr Administer over 2 Hours, ONCE, 1 dose, On Lilibeth 02/13/24 at 0915 Start Infusion 02/13/2024 8:42 AM EDT 1,000 mL 500 mL/hr ondansetron (Zofran) tab 8 mg 8 mg, Oral, ONCE, On Lilibeth 02/13/24 at 0845, For 1 dose Given 02/13/2024 9:10 AM EDT 8 mg [...] Power of Attor coco? No Care Teams Security Business Analyst Relationship Specialty Start Date End Date Michael Collins MD [address] [place] [address] [place] [address] PCP - General Internal Medicine 03/01/14 documented as of this encounter
--- OUTSIDE RECORDS SUMMARY | 2024-03-26 16:19 | External Medical Summary | Summary of Care ---
Author Name Unknown Organization [facility] Address [address] [facility] [address] Phone [phone] Care Team Providers Care Helicopter Pilot Instructor Name Role Phone Michael Collins MD Primary Care Provi zehra Reason for Visit * Reason Comments Chemotherapy D1 C 41 Cytoxan + Da rzalex * Episode Based Medications (Routine) - Authorized Specialty Diagnoses / Procedures Referred By Contac t Referred To Contact Diagnoses Multiple myeloma not having achieved remission (HCC) Procedures RI DARATUMUMAB, HYALURONIDASE RI INJ, CYCLOPHOSPHAMIDE, NOS Morgan Vásquez MD [address] [place] [address] Anc Hem/Onc Amena You DEPT CLOSED - 03/26/23 200 [facility] [place] [address] Referral ID Status Reason Start Date Expiration Date V isits Requested Visits Authorized [id number] Authorized 05/28/2022 05/12/2099 99 99 Encounter Details Date Type Department Care Team (Latest Contact Info) Description 02/06/2024 8:30 AM EDT Hem/Onc Treatment Hematology/Oncolog y Treatment, [place] [address] [place] [address] Kenyatta, Chair 4 Hem Onc Scenery 200 [facility] [place] [address] Multiple myeloma not having achieved remission (HCC)*; Encounter for antineoplastic chemotherapy Allergies No known active allergiesdocumented as of this encounter (statuses as of 02/23/2024) Medications Medication Sig Dispensed Refills Start Date End Date Status THEOPHYLLINE ER 450 MG PO [id number]:2 tablet at bedtime Take by mouth. Indications: [...] CAPS Take by mouth. Active Multiple Vitamins-Minerals ([facility]MMUN[facility] SUPPORT) CHEW Take by mouth. [...] nostril at bedtime. PATIENT INFORMATION: Kris Galvin [address] [place] [address] [employer]: [employer] ORDER: Please start nocturnal oxygen via nasal [...] (electronically signed) Ish Caba MD Pulmonary Medicine, [address] [place] [address] [facility] Medical License Number: [id number] 1 Each 3 Active metFORMIN HCl ER [...] mRNA, LNP-s, No Pre serve, 2-Dose Series ([employer]) 01/17/2021,08/05/2020,07/08/2020 COVID-19, LNP-s, No Preserve , Bryant-sucrose, Ages 12+ ([employer]) 09/26/2021 COVID-19, MRNA-LNP, 23-24, P F, 30 [...] EDT Laboratory Lab Mobile Phlebotomy [facility] [address] [employer] [place] [address] Mvmg, Gml Mobile Home Draw 2520 [facility] [place] [address] 02/27/2024 8:30 AM EDT Hem/Onc Treatment Hematology/Oncology Treatment, [place] [address] [place] [address] Park, Chair 9 Hem Onc Scenery 200 [facility] [place] [address] 03/04/2024 7:00 AM EDT Laboratory Lab Mobile Phlebotomy [facility] [address] [employer] [place] [address] Mvmg, Gml Mobile Home Draw [address] [employer] [place], [place] [address] 03/05/2024 10:45 AM EDT Office Visit Hematology/Oncology [facility] [place] 200 [facility] [place] [address] Morgan Vásquez MD [address] [place] [address] 03/05/2024 11:15 AM EDT Hem/Onc Treatment Hematology/Oncology Treatment, [place] [address] [place] [address] Kenyatta, Chair 3 Hem Onc Scenery [address] [place] [facility] [place] [address] 03/11/2024 7:05 AM EDT Laboratory Lab Mobile Phlebotomy [facility] 2520 [facility] [address] Mvmg, Gml Mobile Home Draw [address] [place] [address] 03/18/2024 7:05 AM EST Laboratory Lab Mobile Phlebotomy [facility] [address] [place] [address] Mvmg, Gml Mobile Home Draw 2520 [facility] [address] 03/25/2024 7:05 AM EST Laboratory Lab Mobile Phlebotomy [facility] [address] [place] [address] Mvmg, Gml Mobile Home Draw 2520 [facility] [address] 04/01/2024 7:00 AM EST Laboratory Lab Mobile Phlebotomy [facility] [address] [facility] [address] Mvmg, Gml Mobile Home Draw 2520 [facility] [address] 04/08/2024 7:05 AM EST Laboratory Lab Mobile Phlebotomy [facility] [address] [place] [address] Mvmg, Gml Mobile Home Draw [address] [place] [address] 04/15/2024 7:05 AM EST Laboratory Lab Mobile Phlebotomy [facility] [address] [place] [address] Mvmg, Gml Mobile Home Draw 2520 [facility] [address] 04/22/2024 7:05 AM EST Laboratory Lab Mobile Phlebotomy [facility] [address] [place] [address] Mvmg, Gml Mobile Home Draw [address] [employer] [place], [place] [address] 04/29/2024 7:05 AM EST Laboratory Lab Mobile Phlebotomy [facility] 2520 [facility] [place], [place] [address] Mvmg, Gml Mobile Home Draw 2520 [facility] [address] 05/05/2024 7:05 AM EST Laboratory Lab Mobile Phlebotomy [facility] 2520 [facility] [place], [place] [address] Mvmg, Gml Mobile Home Draw 2520 [facility] [place], [place] [address] 07/28/2024 7:00 AM EDT Office Visit Neurology [facility] 200 [facility] [place] [address] Sandrita Pineda PAYeimyC [facility] [place] [address] 09/02/2024 8:20 AM EDT Office Visit Pulmonary Medicine, [facility] 132 [facility] [place] [address] Ish Caba MD [address] [place] [address] 05/03/2025 7:40 AM EST Office Visit Dermatology [address] [place] [address] Albina Romo PA-C [address] [place] [address] [place] [address] Health Maintenance Due Date Last Done Comments [...] this encounter Medical Devices Implanted Type Area Chief Minister Device Identifier Shelf Expiration Date Model / Serial / Lot Mesh Plug Xlarge [id number] - [id number] Implanted:Qty: 1 on 12/09/2020 by John Zaragoza MD at OR [facility] Left: Groin CR BARD : DAVOL 05/09/2023 [id number] / / [id number] documented as of this encounter Visit Diagnoses [...] 517.4 mL/hr Daratumumab-hyaluronida se-fihj (Darzalex Faspro) 1800 mg-47363 units/ 15 ml subcut inj 15 mL, [...] Power of Attor coco? No Care Teams Helicopter Pilot Instructor Relationship Specialty Start Date End Date Michael Collins MD [address] [facility] [place] [address] PCP - General Internal Medicine 03/01/14 documented as of this encounter
--- OUTSIDE RECORDS SUMMARY | 2024-03-26 16:19 | External Medical Summary | Summary of Care ---
Author Name Unknown Organization [facility] Address [address] [facility] [address] Phone [phone] Care Team Providers Care Maintenance Chief Name Role Phone Michael Collins MD Primary Care Provi zehra Reason for Visit * Reason Comments Chemotherapy D1 C 41 Cytoxan + Da rzalex * Episode Based Medications (Routine) - Authorized Specialty Diagnoses / Procedures Referred By Contac t Referred To Contact Diagnoses Multiple myeloma not having achieved remission (HCC) Procedures [place] DARATUMUMAB, HYALURONIDASE [place] INJ, CYCLOPHOSPHAMIDE, NOS Morgan Vásquez MD [address] [place] [address] Anc Hem/Onc Amena You DEPT CLOSED - 03/26/23 200 [facility] [place] [address] Referral ID Status Reason Start Date Expiration Date V isits Requested Visits Authorized [id number] Authorized 05/28/2022 05/12/2099 99 99 Encounter Details Date Type Department Care Team (Latest Contact Info) Description 02/06/2024 8:30 AM EDT Hem/Onc Treatment Hematology/Oncolog y Treatment, [place] [address] [place] [address] Kenyatta, Chair 4 Hem Onc Scenery 200 [facility] [place] [address] Multiple myeloma not having achieved remission (HCC)*; Encounter for antineoplastic chemotherapy Allergies No known active allergiesdocumented as of this encounter (statuses as of 02/23/2024) Medications Medication Sig Dispensed Refills Start Date End Date Status THEOPHYLLINE ER 450 MG PO NH84Mycifmgtzqu:2 tablet at bedtime Take by mouth. Indications: [...] nostril at bedtime. PATIENT INFORMATION: Kris Galvin [address] [place] [address] [employer]: Pick[employer]/Ven[employer] ORDER: Please start nocturnal oxygen via nasal [...] signed) Ish Caba MD Pulmonary Medicine, [address] [place] [address] [facility] Medical License Number: [id number] 1 Each 3 Active metFORMIN HCl ER [...] mRNA, LNP-s, No Pre serve, 2-Dose Series ([email or web address]) 01/17/2021,08/05/2020,07/08/2020 COVID-19, LNP-s, No Preserve , Bryant-sucrose, Ages 12+ ([email or web address].de) 09/26/2021 COVID-19, MRNA-LNP, 23-24, P F, 30 [...] EDT Laboratory Lab Mobile Phlebotomy [facility] [address] [employer] [place] [address] Mvmg, Gml Mobile Home Draw 2520 [facility] [place] [address] 02/27/2024 8:30 AM EDT Hem/Onc Treatment Hematology/Oncology Treatment, [place] [address] [place] [address] Park, Chair 9 Hem Onc Scenery 200 [facility] [place] [address] 03/04/2024 7:00 AM EDT Laboratory Lab Mobile Phlebotomy [facility] [address] [employer] [place] [address] Mvmg, Gml Mobile Home Draw [address] [employer] [place], [place] [address] 03/05/2024 10:45 AM EDT Office Visit Hematology/Oncology [facility] [place] 200 [facility] [place] [address] Morgan Vásquez MD [address] [place] [address] 03/05/2024 11:15 AM EDT Hem/Onc Treatment Hematology/Oncology Treatment, [place] [address] [place] [address] Kenyatta, Chair 3 Hem Onc Scenery [address] [place] [address] 03/11/2024 7:05 AM EDT Laboratory Lab Mobile Phlebotomy [facility] 2520 [place] [address] Mvmg, Gml Mobile Home Draw [address] [place] [address] 03/18/2024 7:05 AM EST Laboratory Lab Mobile Phlebotomy [facility] [address] [place] [address] Mvmg, Gml Mobile Home Draw 2520 [place] [address] 03/25/2024 7:05 AM EST Laboratory Lab Mobile Phlebotomy [facility] [address] [place] [address] Mvmg, Gml Mobile Home Draw 2520 [place] [address] 04/01/2024 7:00 AM EST Laboratory Lab Mobile Phlebotomy [facility] 25[address] [place] [address] Mvmg, Gml Mobile Home Draw 2520 [place] [address] 04/08/2024 7:05 AM EST Laboratory Lab Mobile Phlebotomy [facility] [address] [place] [address] Mvmg, Gml Mobile Home Draw [address] [place] [address] 04/15/2024 7:05 AM EST Laboratory Lab Mobile Phlebotomy [facility] [address] [place] [address] Mvmg, Gml Mobile Home Draw 2520 [place] [address] 04/22/2024 7:05 AM EST Laboratory Lab Mobile Phlebotomy [facility] [address] [place] [address] Mvmg, Gml Mobile Home Draw [address] [employer] [place], [place] [address] 04/29/2024 7:05 AM EST Laboratory Lab Mobile Phlebotomy [facility] 2520 [facility] [place], [place] [address] Mvmg, Gml Mobile Home Draw 2520 [place] [address] 05/05/2024 7:05 AM EST Laboratory Lab Mobile Phlebotomy [facility] 2520 [facility] [place], [place] [address] Mvmg, Gml Mobile Home Draw 2520 [facility] [place], [place] [address] 07/28/2024 7:00 AM EDT Office Visit Neurology [facility] 200 [facility] [place] [address] Sandrita Pineda PAYeimyC [facility] [place] [address] 09/02/2024 8:20 AM EDT Office Visit Pulmonary Medicine, [facility] 132 [facility] [place] [address] Ish Caba MD [address] [place] [address] 05/03/2025 7:40 AM EST Office Visit Dermatology [address] [place] [address] Albina Romo PA-C [address] [place] [address] [place] [address] Health Maintenance Due Date Last Done Comments [...] this encounter Medical Devices Implanted Type Area Steam Oven Operator Device Identifier Shelf Expiration Date Model / Serial / Lot Mesh Plug Xlarge [id number] - [id number] Implanted:Qty: 1 on 12/09/2020 by John Zaragoza MD at OR [facility] Left: Groin CR BARD : DAVOL 05/09/2023 [id number] / / [id number] documented as of this encounter Visit Diagnoses [...] 517.4 mL/hr Daratumumab-hyaluronida se-fihj (Darzalex Faspro) 1800 mg-78199 units/ 15 ml subcut inj 15 mL, [...] Power of Attor coco? No Care Teams Maintenance Chief Relationship Specialty Start Date End Date Michael Collins MD 141 [facility] [place] [address] PCP - General Internal Medicine 03/01/14 documented as of this encounter
--- OUTSIDE RECORDS SUMMARY | 2024-03-26 16:19 | External Medical Summary | Summary of Care ---
Author Name Unknown Organization [facility] Address [address] [facility] [address] Phone [phone] Care Team Providers Care Auger Press Operator Name Role Phone Michael Collins MD [...] CYCLOPHOSPHAMIDE, NOS Morgan Vásquez MD [address] [place] [address] Anc Hem/Onc Amena You DEPT CLOSED - 03/26/23 200 [facility] [place] [address] Referral ID Status Reason Start Date Expiration Date V isits Requested Visits Authorized [id number] Authorized 05/28/2022 05/12/2099 99 99 Encounter Details Date Type Department Care Team (Latest Contact Info) Description 02/06/2024 8:30 AM EDT Hem/Onc Treatment Hematology/Oncolog y Treatment, [place] [address] [place] [address] Kenyatta, Chair 4 Hem Onc Scenery 200 [facility] [place] [place] [address] Multiple myeloma not having achieved remission (HCC)*; Encounter for antineoplastic chemotherapy Allergies No known active allergiesdocumented as of this encounter (statuses as of 02/23/2024) Medications Medication Sig Dispensed Refills Start Date End Date Status THEOPHYLLINE ER 450 MG PO [id number]:2 tablet at bedtime Take by mouth. Indications: [...] nostril at bedtime. PATIENT INFORMATION: Kris Galvin [address] [place] [address] [employer]: [employer]ini[employer] ORDER: Please start nocturnal oxygen via nasal [...] signed) Ish Caba MD Pulmonary Medicine, [address] [place] [address] [facility] Medical License Number: [id number] 1 Each 3 Active metFORMIN HCl ER [...] mRNA, LNP-s, No Pre serve, 2-Dose Series ([employer]) 01/17/2021,08/05/2020,07/08/2020 COVID-19, LNP-s, No Preserve , Bryant-sucrose, Ages 12+ ([employer]) 09/26/2021 COVID-19, MRNA-LNP, 23-24, P F, 30 [...] EDT Laboratory Lab Mobile Phlebotomy [facility] [address] [employer] [place] [address] Mvmg, Gml Mobile Home Draw 2520 [facility] [place] [address] 02/27/2024 8:30 AM EDT Hem/Onc Treatment Hematology/Oncology Treatment, [place] [address] [place] [address] Park, Chair 9 Hem Onc Scenery 200 [facility] [place] [address] 03/04/2024 7:00 AM EDT Laboratory Lab Mobile Phlebotomy [facility] [address] [employer] [place] [address] Mvmg, Gml Mobile Home Draw [address] [employer] [place], [place] [address] 03/05/2024 10:45 AM EDT Office Visit Hematology/Oncology [facility] [place] 200 [facility] [place] [address] Morgan Vásquez MD [address] [place] [address] 03/05/2024 11:15 AM EDT Hem/Onc Treatment Hematology/Oncology Treatment, [place] [address] [place] [address] Kenyatta, Chair 3 Hem Onc Scenery [address] [facility] [place] [address] 03/11/2024 7:05 AM EDT Laboratory Lab Mobile Phlebotomy [facility] 2520 [facility] [place] [address] Mvmg, Gml Mobile Home Draw [address] [place] [address] 03/18/2024 7:05 AM EST Laboratory Lab Mobile Phlebotomy [facility] [address] [place] [address] Mvmg, Gml Mobile Home Draw 2520 [facility] [place] [address] 03/25/2024 7:05 AM EST Laboratory Lab Mobile Phlebotomy [facility] [address] [place] [address] Mvmg, Gml Mobile Home Draw 2520 [facility] [place] [address] 04/01/2024 7:00 AM EST Laboratory Lab Mobile Phlebotomy [facility] 2520 [facility] [place] [address] Mvmg, Gml Mobile Home Draw 2520 [facility] [place] [address] 04/08/2024 7:05 AM EST Laboratory Lab Mobile Phlebotomy [facility] [address] [place] [address] Mvmg, Gml Mobile Home Draw [address] [place] [address] 04/15/2024 7:05 AM EST Laboratory Lab Mobile Phlebotomy [facility] [address] [place] [address] Mvmg, Gml Mobile Home Draw 2520 [facility] [place] [address] 04/22/2024 7:05 AM EST Laboratory Lab Mobile Phlebotomy [facility] [address] [place] [address] Mvmg, Gml Mobile Home Draw [address] [employer] [place], [place] [address] 04/29/2024 7:05 AM EST Laboratory Lab Mobile Phlebotomy [facility] 2520 [facility] [place], [place] [address] Mvmg, Gml Mobile Home Draw 2520 [facility] [place] [address] 05/05/2024 7:05 AM EST Laboratory Lab Mobile Phlebotomy [facility] 2520 [facility] [place], [place] [address] Mvmg, Gml Mobile Home Draw 2520 [facility] [place], [place] [address] 07/28/2024 7:00 AM EDT Office Visit Neurology [facility] 200 [facility] [place] [address] Sandrita Pineda PAYeimyC [facility] [place] [address] 09/02/2024 8:20 AM EDT Office Visit Pulmonary Medicine, [facility] 132 [facility] [place] [address] Ish Caba MD [address] [place] [address] 05/03/2025 7:40 AM EST Office Visit Dermatology [address] [place] [address] Albina Romo PA-C [address] [place] [address] [place] [address] Health Maintenance Due Date Last Done Comments [...] this encounter Medical Devices Implanted Type Area Oven Equipment Repairer Device Identifier Shelf Expiration Date Model / Serial / Lot Mesh Plug Xlarge [id number] - [id number] Implanted:Qty: 1 on 12/09/2020 by John Zaragoza MD at OR [facility] Left: Groin CR BARD : DAVOL 05/09/2023 [id number] / / [id number] documented as of this encounter Visit Diagnoses [...] 517.4 mL/hr Daratumumab-hyaluronida se-fihj (Darzalex Faspro) 1800 mg-50799 units/ 15 ml subcut inj 15 mL, [...] Power of Attor coco? No Care Teams Auger Press Operator Relationship Specialty Start Date End Date Michael Collins MD 141 [facility] [place] [address] PCP - General Internal Medicine 03/01/14 documented as of this encounter
--- OUTSIDE RECORDS SUMMARY | 2024-03-26 16:19 | External Medical Summary | Summary of Care ---
Author Name Unknown Organization [facility] Address [address] [facility] [address] Phone [phone] Care Team Providers Care Obiee Architect Name Role Phone Michael Collins MD Primary Care Provi zehra Reason for Visit * Reason Comments Chemotherapy D1 C 41 Cytoxan + Da rzalex * Episode Based Medications (Routine) - Authorized Specialty Diagnoses / Procedures Referred By Contac t Referred To Contact Diagnoses Multiple myeloma not having achieved remission (HCC) Procedures MO DARATUMUMAB, HYALURONIDASE MO INJ, CYCLOPHOSPHAMIDE, NOS Morgan Vásquez MD [address] [place] [address] Anc Hem/Onc Amena You DEPT CLOSED - 03/26/23 200 [facility] [place] [address] Referral ID Status Reason Start Date Expiration Date V isits Requested Visits Authorized [id number] Authorized 05/28/2022 05/12/2099 99 99 Encounter Details Date Type Department Care Team (Latest Contact Info) Description 02/06/2024 8:30 AM EDT Hem/Onc Treatment Hematology/Oncolog y Treatment, [place] [address] [place] [address] Kenyatta, Chair 4 Hem Onc Scenery 200 [facility] [place] [address] Multiple myeloma not having achieved remission (HCC)*; Encounter for antineoplastic chemotherapy Allergies No known active allergiesdocumented as of this encounter (statuses as of 02/23/2024) Medications Medication Sig Dispensed Refills Start Date End Date Status THEOPHYLLINE ER 450 MG PO MK22Aaiafgaetnx:2 tablet at bedtime Take by mouth. Indications: [...] nostril at bedtime. PATIENT INFORMATION: Kris Galvin [address] [place] [address] [employer]: [employer] ORDER: Please start nocturnal oxygen via nasal [...] (electronically signed) Ish Caba MD Pulmonary Medicine, [address] [place] [address] [facility] Medical License Number: [id number] 1 Each 3 Active metFORMIN HCl ER [...] mRNA, LNP-s, No Pre serve, 2-Dose Series ([employer]) 01/17/2021,08/05/2020,07/08/2020 COVID-19, LNP-s, No Preserve , Bryant-sucrose, Ages 12+ ([employer]) 09/26/2021 COVID-19, MRNA-LNP, 23-24, P F, 30 [...] EDT Laboratory Lab Mobile Phlebotomy [facility] [address] [employer] [place] [address] Mvmg, Gml Mobile Home Draw 2520 [facility] [place] [address] 02/27/2024 8:30 AM EDT Hem/Onc Treatment Hematology/Oncology Treatment, [place] [address] [place] [address] Park, Chair 9 Hem Onc Scenery 200 [facility] [place] [address] 03/04/2024 7:00 AM EDT Laboratory Lab Mobile Phlebotomy [facility] [address] [place] [address] Mvmg, Gml Mobile Home Draw [address] [place], [place] [address] 03/05/2024 10:45 AM EDT Office Visit Hematology/Oncology [facility] [place] 200 [facility] [place] [phone] Morgan Vásquez MD [address] [place] [address] 03/05/2024 11:15 AM EDT Hem/Onc Treatment Hematology/Oncology Treatment, [place] [address] [place] [address] Kenyatta, Chair 3 Hem Onc Scenery 200 [place] [address] 03/11/2024 7:05 AM EDT Laboratory Lab Mobile Phlebotomy [facility] 2520 [facility] [place] [place] [address] Mvmg, Gml Mobile Home Draw [address] [employer] [place] [address] 03/18/2024 7:05 AM EST Laboratory Lab Mobile Phlebotomy [facility] [address] [place] [address] Mvmg, Gml Mobile Home Draw 2520 [facility] [place] [place] [address] 03/25/2024 7:05 AM EST Laboratory Lab Mobile Phlebotomy [facility] [address] [place] [address] Mvmg, Gml Mobile Home Draw 2520 [facility] [place] [place] [address] 04/01/2024 7:00 AM EST Laboratory Lab Mobile Phlebotomy [facility] 2520 [facility] [place] [place] [address] Mvmg, Gml Mobile Home Draw 2520 [facility] [place] [place] [address] 04/08/2024 7:05 AM EST Laboratory Lab Mobile Phlebotomy [facility] [address] [place] [address] Mvmg, Gml Mobile Home Draw [address] [place] [address] 04/15/2024 7:05 AM EST Laboratory Lab Mobile Phlebotomy [facility] [address] [place] [address] Mvmg, Gml Mobile Home Draw 2520 [facility] [place] [place] [address] 04/22/2024 7:05 AM EST Laboratory Lab Mobile Phlebotomy [facility] [address] [place] [address] Mvmg, Gml Mobile Home Draw [address] [employer] [place], [place] [address] 04/29/2024 7:05 AM EST Laboratory Lab Mobile Phlebotomy [facility] 25[address] [facility] [place], [place] [address] Mvmg, Gml Mobile Home Draw 2520 [facility] [place] [place] [address] 05/05/2024 7:05 AM EST Laboratory Lab Mobile Phlebotomy M[facility] 25[address] [facility] [place], [place] [address] Mvmg, Gml Mobile Home Draw 2520 [facility] [place], [place] [address] 07/28/2024 7:00 AM EDT Office Visit Neurology [facility] 200 [facility] [place] [address] Sandrita Pineda PAYeimyC [facility] [place] [address] 09/02/2024 8:20 AM EDT Office Visit Pulmonary Medicine, [facility] 132 [facility] [place] [address] Ish Caba MD [address] [place] [address] 05/03/2025 7:40 AM EST Office Visit Dermatology [address] [place] [address] Albina Romo PA-C [address] [place] [address] [place] [address] Health Maintenance Due Date Last Done Comments [...] this encounter Medical Devices Implanted Type Area Nurse Coordinator Device Identifier Shelf Expiration Date Model / Serial / Lot Mesh Plug Xlarge [id number] - [id number] Implanted:Qty: 1 on 12/09/2020 by John Zaragoza MD at OR [facility] Left: Groin CR BARD : DAVOL 05/09/2023 [id number] / / [id number] documented as of this encounter Visit Diagnoses [...] 517.4 mL/hr Daratumumab-hyaluronida se-fihj (Darzalex Faspro) 1800 mg-49281 units/ 15 ml subcut inj 15 mL, [...] Power of Attor coco? No Care Teams Obiee Architect Relationship Specialty Start Date End Date Michael Collins MD 141 [facility] [place] [address] PCP - General Internal Medicine 03/01/14 documented as of this encounter
--- OUTSIDE RECORDS SUMMARY | 2024-03-26 16:19 | External Medical Summary | Summary of Care ---
Author Name Unknown Organization [facility] Address [address] [facility] [place] [address] Phone [phone] Care Team Providers Care Automated Equipment Engineer Technician Name Role Phone Michael Collins MD Primary Care Provi zehra Reason for Visit * Reason Comments Chemotherapy Cytoxan * Episode Based Medications (Routine) - Authorized Specialty Diagnoses / Procedures Referred By Contac t Referred To Contact Diagnoses Multiple myeloma not having achieved remission (HCC) Procedures AR DARATUMUMAB, HYALURONIDASE AR INJ, CYCLOPHOSPHAMIDE, NOS Morgan Vásquez MD [address] [place] [address] Anc Hem/Onc Amena You DEPT CLOSED - 03/26/23 200 [facility] [place] [address] Referral ID Status Reason Start Date Expiration Date V isits Requested Visits Authorized [id number] Authorized 05/28/2022 05/12/2099 99 99 Encounter Details Date Type Department Care Team (Latest Contact Info) Description 02/20/2024 8:30 AM EDT Hem/Onc Treatment Hematology/Oncolog y Treatment, [place] [address] [place] [address] Kenyatta, Chair 7 Hem Onc Scenery [address] [place] [address] Multiple myeloma not having achieved remission (HCC)*; Encounter for antineoplastic chemotherapy Allergies No known active allergiesdocumented as of this encounter (statuses as of 02/20/2024) Medications Medication Sig Dispensed Refills Start Date End Date Status THEOPHYLLINE ER 450 MG PO BB90Xdlbseqtpkv:2 tablet at bedtime Take by mouth. Indications: [...] CAPS Take by mouth. Active Multiple Vitamins-Minerals ([facility]MMUNITY SU[facility]) CHEW Take by [...] nostril at bedtime. PATIENT INFORMATION: Kris Galvin [address] [place] [address] [email or web address]: [employer] ORDER: Please start nocturnal oxygen via nasal [...] signed) Ish Caba MD Pulmonary Medicine, [address] [place] [address] [place] [facility] Medical License Number: [id number] 1 Each 09/21/2022 Active metFORMIN HCl ER [...] as of this encounter (statuses as of 02/20/2024) Active Problems Problem Noted Date Diagnosed Date [...] as of this encounter (statuses as of 02/20/2024) Resolved Problems Problem Noted Date Diagnosed Date Resolved Date Asthma in remission 08/28/2022 08/29/19 Asthma, mild persistent 08/28/2022 0412/2022 Asthma, severe persistent 08/28/2022 Stem cell transplant candidate 08/17/2019 09/02/2019 documented as of this encounter (statuses as of 02/20/2024) Immunizations Name Administration Dates Next Due COVID-19 mRNA, LNP-s, No Pre serve, 2-Dose Series ([employer]) 01/17/2021,08/05/2020,07/08/2020 COVID-19, LNP-s, No Preserve , Bryant-sucrose, Ages 12+ ([employer]) 09/26/2021 COVID-19, MRNA-LNP, 23-24, P F, 30 MCG/0.3 mL, 12 YRS AND ABOVE, IM ([facility]) 02/01/2024 DTaP Dipth/Tet/Acell Pertussis ([employer]), Peds [...] Chair 10, Cytoxan. C[facility] [place] [facility] [place] to problem with specimen. Dr. Vásquez okay to proceedwith treatment based on CMP results from 02/12/24. documented in this encounter Plan of Treatment Upcoming Encounters Date Type Department Care Team (Late st Contact Info) Description 02/26/2024 7:05 AM EDT Laboratory Lab Mobile Phlebotomy [facility] [address] [employer] [place] [address] Mvmg, Gml Mobile Home Draw [address] [employer] [place] [address] 02/27/2024 8:30 AM EDT Hem/Onc Treatment Hematology/Oncology Treatment, [place] [address] [place] [address] Park, Chair 9 Hem Onc Scenery 200 [facility] [place] [address] 03/04/2024 7:00 AM EDT Laboratory Lab Mobile Phlebotomy [facility] [address] [employer] [place] [address] Mvmg, Gml Mobile Home Draw [address] [employer] [place] [address] 03/05/2024 10:45 AM EDT Office Visit Hematology/Oncology [facility] [place] 200 [facility] [place] [address] Morgan Vásquez MD 200 [facility] [place] [address] 03/05/2024 11:15 AM EDT Hem/Onc Treatment Hematology/Oncology Treatment, [place] [address] [place] [address] Kenyatta, Chair 3 Hem Onc Scenery [address] [place] [address] 03/11/2024 7:05 AM EDT Laboratory Lab Mobile Phlebotomy [facility] 2520 [place] [address] Mvmg, Gml Mobile Home Draw [address] [place] [address] 03/18/2024 7:05 AM EST Laboratory Lab Mobile Phlebotomy [facility] [address] [place] [address] Mvmg, Gml Mobile Home Draw 2520 [place] [address] 03/25/2024 7:05 AM EST Laboratory Lab Mobile Phlebotomy [facility] 2520 [place] [address] Mvmg, Gml Mobile Home Draw [address] [place] [address] 04/01/2024 7:00 AM EST Laboratory Lab Mobile Phlebotomy [facility] 2520 [place] [address] Mvmg, Gml Mobile Home Draw 2520 [place] [address] 04/08/2024 7:05 AM EST Laboratory Lab Mobile Phlebotomy [facility] [address] [place] [address] Mvmg, Gml Mobile Home Draw [address] [place] [address] 04/15/2024 7:05 AM EST Laboratory Lab Mobile Phlebotomy [facility] 2520 [place] [address] Mvmg, Gml Mobile Home Draw 2520 [place] [address] 04/22/2024 7:05 AM EST Laboratory Lab Mobile Phlebotomy [facility] 2520 [place] [address] Mvmg, Gml Mobile Home Draw [address] [employer] [place], [place] [address] 04/29/2024 7:05 AM EST Laboratory Lab Mobile Phlebotomy M[facility] [address] [facility] [place], [place] [address] Mvmg, Gml Mobile Home Draw 2520 [facility] [place] [address] 05/05/2024 7:05 AM EST Laboratory Lab Mobile Phlebotomy [facility] [address] [employer] [place] [address] Mvmg, Gml Mobile Home Draw 2520 [facility] [place], [place] [address] 07/28/2024 7:00 AM EDT Office Visit Neurology [facility] 200 [facility] [place] [address] Sandrita Pineda PA-C 21 [facility] [place] [address] 09/02/2024 8:20 AM EDT Office Visit Pulmonary Medicine, [facility] [address] [facility] [place] [address] Ish Caba MD [address] [facility] [place] [address] 05/03/2025 7:40 AM EST Office Visit Dermatology [address] [place] [address] Albina Romo PA-C [address] [place] [address] [place] [address] Health Maintenance Due Date Last Done Comments [...] this encounter Medical Devices Implanted Type Area Managing Cognitive Engineer Device Identifier Shelf Expiration Date Model / Serial / Lot Mesh Plug Xlarge [id number] - [id number] Implanted:Qty: 1 on 12/09/2020 by John Zaragoza MD at OR [facility] Left: Groin CR BARD : DAVOL 05/09/2023 [id number] / / [id number] documented as of this encounter Visit Diagnoses [...] ONCE PRN Other, Hypersensitivity Reaction, Starting on Sat02/20/24 at 0846, Until Sat02/21/24 at 0845, For 24 hours EPINEPHrine 1 MG/ML inj 0.3 mg 0.3 mg, Intramuscular, ONCE PRN Other, Hypersensitivity Reaction or Anaphylaxis, Starting on Lilibeth 02/20/24 at 0846, Until Sat02/21/24 at 0845, For 24 hours hEParin 100 UNIT/ML Lock Flush inj 500 Units 500 Units (5 mL), IV Lock, PRN Other, IV Flush, Starting on Sat02/20/24 at 0846, Until Sat02/21/24 at 0845, For 24 hours, Do not flush if lock, PICC, or central line not in place; IV infusing or unable to flush. Hydrocortisone Sod Suc (PF) (Solu-Cortef) inj 100 mg 100 mg, IV Push, ONCE PRN Other, Hypersensitivity Reaction, Starting on Sat02/20/24 at 0846, Until Sat02/21/24 at 0845, For 24 hours meperidine (Demerol) 25 MG/ML inj 25 mg 25 mg, IV Push, ONCE PRN Shivering, Starting on Sat02/20/24 at 0846, Until Sat02/21/24 at 0845, For 24 hours NSS infusion FOR HYDRATION Intravenous, at 50 mL/hr Administer over 10 Hours, CONTINUOUS, Starting on Sat02/20/24 at 0930, Until Discontinued Start Infusion 02/20/2024 8:51 AM EDT 500 mL 50 mL/hr sodium chloride 0.9 % flush central line 10 mL 10 mL, IV Push, PRN Other, IV Flush, Starting on Sat02/20/24 at 0846, Until Sat02/21/24 at 0845, For 24 hours, Do not flush if [...] ONCE, 1 dose, On Lilibeth 02/20/24 at 0930 Start Infusion 02/20/2024 10:13 AM EDT 740 mg 517.4 mL/hr dexAMETHasone (Decadron) tab 40 mg 40 mg, Oral, ONCE, On Lilibeth 02/20/24 at 0930, For 1 dose Given 02/20/2024 8:59 AM EDT 40 mg NSS infusion FOR HYDRATION Intravenous, at 500 mL/hr Administer over 2 Hours, ONCE, 1 dose, On Lilibeth 02/20/24 at 0930 Start Infusion 02/20/2024 8:53 AM EDT 1,000 mL 500 mL/hr ondansetron (Zofran) tab 8 mg 8 mg, Oral, ONCE, On Lilibeth 02/20/24 at 0930, For 1 dose Given 02/20/2024 8:59 AM EDT 8 mg [...] Power of Attor coco? No Care Teams Automated Equipment Engineer Technician Relationship Specialty Start Date End Date Michael Collins MD [address] [place] [address] [place] [address] PCP - General Internal Medicine 03/01/14 documented as of this encounter
--- OUTSIDE RECORDS SUMMARY | 2024-03-26 16:19 | External Medical Summary | Summary of Care ---
Author Name Unknown Organization [facility] Address [address] [facility] [address] Phone [phone] Care Team Providers Care Community Services Coordinator Name Role Phone Michael Collins MD Primary Care Provi zehra Reason for Visit * Reason Comments Chemotherapy D1 C 41 Cytoxan + Da rzalex * Episode Based Medications (Routine) - Authorized Specialty Diagnoses / Procedures Referred By Contac t Referred To Contact Diagnoses Multiple myeloma not having achieved remission (HCC) Procedures TN DARATUMUMAB, HYALURONIDASE TN INJ, CYCLOPHOSPHAMIDE, NOS Morgan Vásquez MD [address] [place] [address] Anc Hem/Onc Amena You DEPT CLOSED - 03/26/23 200 [facility] [place] [address] Referral ID Status Reason Start Date Expiration Date V isits Requested Visits Authorized [id number] Authorized 05/28/2022 05/12/2099 99 99 Encounter Details Date Type Department Care Team (Latest Contact Info) Description 02/06/2024 8:30 AM EDT Hem/Onc Treatment Hematology/Oncolog y Treatment, [place] [address] [place] [address] Kenyatta, Chair 4 Hem Onc Scenery 200 [facility] [place] [address] Multiple myeloma not having achieved remission (HCC)*; Encounter for antineoplastic chemotherapy Allergies No known active allergiesdocumented as of this encounter (statuses as of 02/23/2024) Medications Medication Sig Dispensed Refills Start Date End Date Status THEOPHYLLINE ER 450 MG PO BG08Hyuikkthhoc:2 tablet at bedtime Take by mouth. Indications: [...] CAPS Take by mouth. Active Multiple Vitamins-Minerals ([facility] IMMUNITY SUPPORT) CHEW Take by mouth. Active [...] L/min(Oxygen) into nostril at bedtime. PATIENT INFORMATION: Krsi Galvin [address] [place] [address] [employer]: [employer] ORDER: Please start nocturnal oxygen via nasal [...] (electronically signed) Ish Caba MD Pulmonary Medicine, [address] [place] [address] [facility] Medical License Number: [id number] 1 Each 3 Active metFORMIN HCl ER [...] mRNA, LNP-s, No Pre serve, 2-Dose Series ([employer]) 01/17/2021,08/05/2020,07/08/2020 COVID-19, LNP-s, No Preserve , Bryant-sucrose, Ages 12+ ([employer]) 09/26/2021 COVID-19, MRNA-LNP, 23-24, P F, 30 [...] EDT Laboratory Lab Mobile Phlebotomy [facility] [address] [employer] [place] [address] Mvmg, Gml Mobile Home Draw 2520 [facility] [place] [address] 02/27/2024 8:30 AM EDT Hem/Onc Treatment Hematology/Oncology Treatment, [place] [address] [place] [address] Park, Chair 9 Hem Onc Scenery 200 [facility] [place] [address] 03/04/2024 7:00 AM EDT Laboratory Lab Mobile Phlebotomy [facility] [address] [employer] [place] [address] Mvmg, Gml Mobile Home Draw [address] [employer] [place], [place] [address] 03/05/2024 10:45 AM EDT Office Visit Hematology/Oncology [facility] [place] 200 [facility] [place] [address] Morgan Vásquez MD [address] [place] [address] 03/05/2024 11:15 AM EDT Hem/Onc Treatment Hematology/Oncology Treatment, [place] [address] [place] [address] Kenyatta, Chair 3 Hem Onc Scenery [address] [facility] [place] [address] 03/11/2024 7:05 AM EDT Laboratory Lab Mobile Phlebotomy M[facility] 2520 [facility] [place] [address] Mvmg, Gml Mobile Home Draw [address] [place] [address] 03/18/2024 7:05 AM EST Laboratory Lab Mobile Phlebotomy M[facility] [address] [place] [address] Mvmg, Gml Mobile Home Draw 2520 [facility] [place] [address] 03/25/2024 7:05 AM EST Laboratory Lab Mobile Phlebotomy M[facility] [address] [place] [address] Mvmg, Gml Mobile Home Draw 2520 [facility] [place] [address] 04/01/2024 7:00 AM EST Laboratory Lab Mobile Phlebotomy M[facility] 25[address] [facility] [place] [address] Mvmg, Gml Mobile Home Draw 2520 [facility] [place] [address] 04/08/2024 7:05 AM EST Laboratory Lab Mobile Phlebotomy M[facility] [address] [place] [address] Mvmg, Gml Mobile Home Draw [address] [place] [address] 04/15/2024 7:05 AM EST Laboratory Lab Mobile Phlebotomy [facility] [address] [place] [address] Mvmg, Gml Mobile Home Draw 2520 [facility] [place] [address] 04/22/2024 7:05 AM EST Laboratory Lab Mobile Phlebotomy [facility] [address] [place] [address] Mvmg, Gml Mobile Home Draw [address] [employer] [place], [place] [address] 04/29/2024 7:05 AM EST Laboratory Lab Mobile Phlebotomy M[facility] 25[address] [facility] [place], [place] [address] Mvmg, Gml Mobile Home Draw 25[address] [facility] [place] [address] 05/05/2024 7:05 AM EST Laboratory Lab Mobile Phlebotomy M[facility] 2520 [facility] [place], [place] [address] Mvmg, Gml Mobile Home Draw 2520 [facility] [place], [place] [address] 07/28/2024 7:00 AM EDT Office Visit Neurology [facility] 200 [facility] [place] [address] Sandrita Pineda PAYeimyC [facility] [place] [address] 09/02/2024 8:20 AM EDT Office Visit Pulmonary Medicine, [facility] 132 [facility] [place] [address] Ish Caba MD [address] [place] [address] 05/03/2025 7:40 AM EST Office Visit Dermatology [address] [place] [address] Albina Romo PA-C [address] [place] [address] [place] [address] Health Maintenance Due Date Last Done Comments [...] this encounter Medical Devices Implanted Type Area Hangersmith Device Identifier Shelf Expiration Date Model / Serial / Lot Mesh Plug Xlarge [id number] - [id number] Implanted:Qty: 1 on 12/09/2020 by John Zaragoza MD at OR [facility] Left: Groin CR BARD : DAVOL 05/09/2023 [id number] / / [id number] documented as of this encounter Visit Diagnoses [...] 517.4 mL/hr Daratumumab-hyaluronida se-fihj (Darzalex Faspro) 1800 mg-90348 units/ 15 ml subcut inj 15 mL, [...] Power of Attor coco? No Care Teams Community Services Coordinator Relationship Specialty Start Date End Date Michael Collins MD 141 [facility] [place] [address] PCP - General Internal Medicine 03/01/14 documented as of this encounter
--- OUTSIDE RECORDS SUMMARY | 2024-03-26 16:19 | External Medical Summary ---
Author Name Unknown Address Unknown Organization K01:LABORATORY [facility] [place] - [address] [facility] [address] [facility] [address] Laboratory Report Ordering Provider Test Date Status KALPESH SERRANO 02/19/2024 08:33:00 Final Observation Date Value Abnormality Reference (Units ) Status WBC, Total 02/19/2024 08:33:00 3.49 Below low normal 4.00-10.80 (K/uL) Final RBC 02/19/2024 08:33:00 4.08 4.50-5.25 (M/uL) Final Hemoglobin 02/19/2024 08:33:00 14.4 14.0-16.8 (g/dL) Final HCT 02/19/2024 08:33:00 44.6 40.0-48.4 (%) Final MCV 02/19/2024 08:33:00 109.3 82.0-99.5 (fL) Final MCH 02/19/2024 08:33:00 35.3 27.0-34.0 (pg) Final MCHC 02/19/2024 08:33:00 32.3 32.0-36.0 (g/dL) Final RDW 02/19/2024 08:33:00 14.6 11.5-15.5 (%) Final Platelets 02/19/2024 08:33:00 93 Below low normal 140-400 (K/uL) Final MPV 02/19/2024 08:33:00 11.1 6.6-11.1 (fL) Final Nucleated erythrocytes/100 leukocytes [Ratio] in Blood by Automated count 02/19/2024 08:33:00 0 <=0 (/100 WBCs) Final Performing Location LABORATORY [facility] - [address] [facility] [address]
--- OUTSIDE RECORDS SUMMARY | 2024-03-26 16:19 | External Medical Summary ---
Author Name Unknown Address Unknown Organization K01:[facility]ORY [facility] [place] - [facility] [address] Laboratory Report Ordering Provider Test Date Status KALPESH SERRANO 02/12/2024 08:06:00 Final Observation Date Value Abnormality Reference (Units ) Status WBC, Total 02/12/2024 08:06:00 3.69 Below low normal 4.00-10.80 (K/uL) Final RBC 02/12/2024 08:06:00 4.25 4.50-5.25 (M/uL) Final Hemoglobin 02/12/2024 08:06:00 15.3 14.0-16.8 (g/dL) Final HCT 02/12/2024 08:06:00 45.4 40.0-48.4 (%) Final MCV 02/12/2024 08:06:00 106.8 82.0-99.5 (fL) Final MCH 02/12/2024 08:06:00 36.0 27.0-34.0 (pg) Final MCHC 02/12/2024 08:06:00 33.7 32.0-36.0 (g/dL) Final RDW 02/12/2024 08:06:00 14.9 11.5-15.5 (%) Final Platelets 02/12/2024 08:06:00 114 Below low normal 140-400 (K/uL) Final MPV 02/12/2024 08:06:00 10.6 6.6-11.1 (fL) Final Nucleated erythrocytes/100 leukocytes [Ratio] in Blood by Automated count 02/12/2024 08:06:00 1 Above high normal <=0 (/100 WBCs) Final Performing Location LAB[facility]ATORY [facility] [place] - [address] [facility] [address]
--- OUTSIDE RECORDS SUMMARY | 2024-03-26 16:20 | External Medical Summary | Summary of Care ---
Author Name Unknown Organization [facility] [address] [facility] [address] Phone [phone] Care Team Providers Care Parking Lot Attendant Name Role Phone Michael Collins MD Primary Care Provi zehra Reason for Visit * Reason Comments Chemotherapy D1 C 41 Cytoxan + Da rzalex * Episode Based Medications (Routine) - Authorized Specialty Diagnoses / Procedures Referred By Contac t Referred To Contact Diagnoses Multiple myeloma not having achieved remission (HCC) Procedures [place] DARATUMUMAB, HYALURONIDASE [place] INJ, CYCLOPHOSPHAMIDE, NOS Morgan Vásquez MD 200 [facility] [address] Anc Hem/Onc Amena You DEPT CLOSED - 03/26/23 [facility] [place] [address] Referral ID Status Reason Start Date Expiration Date V isits Requested Visits Authorized [id number] Authorized 05/28/2022 05/12/2099 99 99 Encounter Details Date Type Department Care Team (Latest Contact Info) Description 02/06/2024 8:30 AM EDT Hem/Onc Treatment Hematology/Oncolog y Treatment, [place] [address] [place] [address] Kenyatta, Chair 4 Hem Onc Scenery [facility] [place] [address] Multiple myeloma not having achieved remission (HCC)*; Encounter for antineoplastic chemotherapy Allergies No known active allergiesdocumented as of this encounter (statuses as of 02/06/2024) Medications Medication Sig Dispensed Refills Start Date End Date Status THEOPHYLLINE ER 450 MG PO [id number]:2 tablet at bedtime Take by mouth. Indications: 2 tablet at bedtime Active B COMPLEX FORMULA 1 PO TABS 1 daily Active MULTIVITAMINS PO CAPS 1 daily Active [...] NEEDED FOR DIARRHEA 60 Tab 02/07/2021 Active Additional Information Patient not taking.Reported on 02/05/2024 Sildenafil Citrate 100 MG Oral Tablet 03/29/2021 [...] at bedtime. PATIENT INFORMATION: Kris Galvin [address] [place] [address] [employer]: [employer] ORDER: Please start nocturnal oxygen via nasal [...] signed) Ish Caba MD Pulmonary Medicine, [address] [place] [address] [place] [facility] Medical License Number: [id number] 1 Each 09/21/2022 Active metFORMIN HCl ER (OSM) 500 MG Oral Tablet Extended Release 24 Hour 1 Tablet. 01/09/2023 Active oxyCODONE HCl 5 MG Oral Tablet (Oxy IR) TAKE 1 TAB BY MOUTH EVERY 6 HOURS NEEDED FOR PAIN Active Triamcinolone Acetonide 0.1 % External Cream (Aristocort) Apply 2x daily to rashes areas on trunk/arms/legs during winter time mostly. 454 g 04/29/2023 Active Additional Information Patient not taking.Reported on 02/05/2024 Acyclovir 800 MG Oral Tablet (Zovirax)Indicatio ns:Multiple [...] and 1 Tablet before bedtime. 10/01/2023 Active Pregabalin 25 MG Oral Capsule (Lyrica) 1 tab am and 1 tab pm 60 Capsule 2 10/21/2023 Active Ondansetron HCl 8 MG Oral Tablet (Zofran)Indication s:Multiple myeloma (HCC) TAKE 1 TABLET BY MOUTH EVERY 8 HOURS NEEDED FOR NAUSEA 90 Tablet 1 01/15/2024 Active Hospital, Clinic, or Other Facility Administered [...] as of this encounter (statuses as of 02/06/2024) Active Problems Problem Noted Date Diagnosed Date [...] as of this encounter (statuses as of 02/06/2024) Resolved Problems Problem Noted Date Diagnosed Date Resolved Date Asthma in remission 08/28/2022 08/29/19 Asthma, mild persistent 08/28/2022 04/12/2022 Asthma, severe persistent 08/28/2022 Stem cell transplant candidate 08/17/2019 09/02/2019 documented as of this encounter (statuses as of 02/06/2024) Immunizations Name Administration Dates Next Due COVID-19 mRNA, LNP-s, No Pre serve, 2-Dose Series (Nextt) 01/17/2021,08/05/2020,07/08/2020 COVID-19, LNP-s, No Preserve , Bryant-sucrose, Ages 12+ (Nextt) 09/26/2021 COVID-19, MRNA-LNP, 23-24, P F, 30 [...] 09/09/2020,05/03/2020,03/04/2020 Pneumococcal Polysaccharide PPV23 (Pneumovax) 03/02/2021 Seasonal Influenza, MDCK, Tr ivalent, with Preserv, (Flucelvax) 02/01/2024 Seasonal Influenza, PF, 6 M & above, IM , (FluLaval or Fluzone) 02/07/2023,03/08/2022,02/09/2021,03/04 Seasonal Influenza, Quadriva lent, No Preserve, Mdck 02/15/2019 Seasonal Influenza, Trivalen t, (IIV3), with Preserv, (Fluzone) 03/01/2014 Zoster Vaccine Recombinant (Shingrix) 05/03/2020 ,03/04/2020 documented [...] of this encounter Nursing Notes * Mis Lomeli RN - 02/06/2024 11:27 AM EDT Goals: [...] 12/29/20 Darzalex Treatment lab parameters met? No, Ashleigh 80, Dr. Vásquez informed, per Dr. Vásquez ok [...] Care Team (Late st Contact Info) Description 02/07/2024 8:40 AM EDT Office Visit Rheumatology [address] [place] [address] Darnell Higgins MD [address] [place] [address] 02/12/2024 7:05 AM EDT Laboratory Lab Mobile Phlebotomy [facility] [address] [place] [address] [facility], G[facility] Draw [address] [place] [address] 02/13/2024 8:30 AM EDT Hem/Onc Treatment Hematology/Oncology Treatment, [place] [address] [place] [phone] Park, Chair 4 Hem Onc Scenery [address] [place] [address] 02/19/2024 7:05 AM EDT Laboratory Lab Mobile Phlebot[facility] [address] [place] [address] M[facility], Gml [facility] Draw [address] [employer] [place] [address] 02/20/2024 8:30 AM EDT Hem/Onc Treatment Hematology/Oncology Treatment, [place] 200 [place] [phone] Park, Chair 7 Hem Onc Scenery 200 [place] [address] 02/26/2024 7:05 AM EDT Laboratory Lab Mobile Phlebotomy [facility] [address] [place], [place] [address] Mvmg, Gml [facility] Draw [address] [place], [place] [address] 02/27/2024 8:30 AM EDT [facility] 200 [place] [address] Park, Chair 9 Hem Onc Scenery 200 [facility] [place], [place] [address] 03/04/2024 7:00 AM EDT Laboratory Lab Mobile Phlebotomy [facility] [address] [place], [place] [address] M[facility]mg, Gml [facility] Draw [address] [place], [place] [address] 03/05/2024 10:45 AM EDT Office Visit Hematology/Oncology [facility] 200 [facility], [place] [phone] Morgan Vásquez MD 200 [facility], [place] [address] 03/05/2024 11:15 AM EDT Hem[facility] 200 [place] [phone] Park, Chair 3 Hem Onc Scenery 200 [place] [address] 03/11/2024 7:05 AM EDT Laboratory Lab Mobile Phlebotomy [facility] [address] [place], [place] [address] Mvmg, Gml [facility] Draw [address] [place], [place] [address] 03/18/2024 7:05 AM EST Laboratory Lab Mobile Phlebotomy [facility] [address] [place] [address] Mvmg, Gml Mobile Home Draw [address] [place] [address] 03/25/2024 7:05 AM EST Laboratory Lab Mobile Phlebotomy [facility] [address] [place] [address] Mvmg, Gml Mobile Home Draw [address] [place] [address] 04/01/2024 7:00 AM EST Laboratory Lab Mobile Phlebotomy [facility] [address] [place] [address] Mvmg, Gml Mobile Home Draw [address] [place] [address] 04/08/2024 7:05 AM EST Laboratory Lab Mobile Phlebotomy [facility] [address] [place] [address] Mvmg, Gml Mobile Home Draw [address] [place] [address] 04/15/2024 7:05 AM EST Laboratory Lab Mobile Phlebotomy [facility] [address] [place] [address] Mvmg, Gml Mobile Home Draw [address] [place] [address] 04/22/2024 7:05 AM EST Laboratory Lab Mobile Phlebotomy [facility] [address] [place] [address] Mvmg, Gml [facility] Draw [address] [place] [address] 04/29/2024 7:05 AM EST Laboratory Lab [facility] [address] [place] [address] Mvmg, Gml [facility] Draw [address] [place] [address] 05/05/2024 7:05 AM EST Laboratory Lab Mobile Phlebotomy [facility] [address] [place] [address] Mvmg, Gml [facility] Draw [address] [place] [address] 07/28/2024 7:00 AM EDT Office Visit Neurology [facility] [address] [place] [address] Sandrita Pineda PAManolo [facility] [place] [address] 09/02/2024 8:20 AM EDT Office Visit Pulmonary Medicine, [facility] [address] [place] [address] Ish Caba MD [address] [place] [address] 05/03/2025 7:40 AM EST Office Visit Dermatology [address] [place] [address] Albina Romo PA-C [address] [place] [address] [place] [address] Health Maintenance Due Date Last Done Comments [...] this encounter Medical Devices Implanted Type Area Train Crew Member Device Identifier Shelf Expiration Date Model / Serial / Lot Mesh Plug Xlarge [id number] - [id number] Implanted:Qty: 1 on 12/09/2020 by John Zaragoza MD at OR [facility] Left: Groin CR BARD : DAVOL 05/09/2023 [id number] / / [id number] documented as of this encounter Visit Diagnoses [...] ONCE PRN Other, Hypersensitivity Reaction, Starting on Sat02/06/24 at 0901, Until Sat02/07/24 at 0900, For 24 hours EPINEPHrine 1 MG/ML inj 0.3 mg 0.3 mg, Intramuscular, ONCE PRN Other, Hypersensitivity Reaction or Anaphylaxis, Starting on Sat02/06/24 at 0901, Until Sat02/07/24 at 0900, For 24 hours hEParin 100 UNIT/ML Lock Flush inj 500 Units 500 Units (5 mL), IV Lock, PRN Other, IV Flush, Starting on Sat02/06/24 at 0901, Until Sat02/07/24 at 0900, For 24 hours, Do not flush if lock, PICC, or central line not in place; IV infusing or unable to flush. Hydrocortisone Sod Suc (PF) (Solu-Cortef) inj 100 mg 100 mg, IV Push, ONCE PRN Other, Hypersensitivity Reaction, Starting on Lilibeth 02/06/24 at 0901, Until Sat02/07/24 at 0900, For 24 hours meperidine (Demerol) 25 MG/ML inj 25 mg 25 mg, IV Push, ONCE PRN Shivering, Starting on Lilibeth 02/06/24 at 0901, Until Sat02/07/24 at 0900, For 24 hours NSS infusion FOR HYDRATION Intravenous, at 50 mL/hr Administer over 10 Hours, CONTINUOUS, Starting on Sat02/06/24 at 0945, Until Discontinued Start Infusion 02/06/2024 9:06 AM EDT 500 mL 50 mL/hr sodium chloride 0.9 % flush central line 10 mL 10 mL, IV Push, PRN Other, IV Flush, Starting on Sat02/06/24 at 0901, Until Sat02/07/24 at 0900, For 24 hours, Do not flush if [...] AM EDT 740 mg 517.4 mL/hr Daratumumab-hyaluronida -alleghany healthj (Darzalex Faspro) 1800 mg-25785 units/ 15 ml subcut inj 15 mL, [...] 9:08 AM EDT 1,000 mL 500 mL/hr ondansetron [...] Power of Attor coco? No Care Teams Parking Lot Attendant Relationship Specialty Start Date End Date Michael Collins MD [address] [place] [address] [place] [id number] PCP - General Internal Medicine 03/01/14 documented as of this encounter
--- OUTSIDE RECORDS SUMMARY | 2024-03-26 16:20 | External Medical Summary ---
Author Name Unknown Address Unknown Organization K09:[facility] [address] Laboratory Report Ordering Provider Test Date Status KALPESH SERRANO 02/05/2024 08:12:39 Final Observation Date Value Abnormality Reference (Units ) Status WBC, Total 02/05/2024 08:12:39 3.20 Below low normal 4. 00-10.80 (K/uL) Final RBC 02/05/2024 08:12:39 3.72 4.50-5.25 (M/uL) Final Hemoglobin 02/05/2024 08:12:39 13.6 Below low normal 14 .0-16.8 (g/dL) Final HCT 02/05/2024 08:12:39 38.7 Below low normal 40. 0-48.4 (%) Final MCV 02/05/2024 08:12:39 104.0 82.0-99.5 (fL) Final MCH 02/05/2024 08:12:39 36.6 27.0-34.0 (pg) Final MCHC 02/05/2024 08:12:39 35.1 32.0-36.0 (g/dL) Final RDW 02/05/2024 08:12:39 14.5 11.5-15.5 (%) Final Platelets 02/05/2024 08:12:39 80 Below low normal 140 -400 (K/uL) Final Results rechecked.
null MPV 02/05/2024 08:12:39 10.7 6.6-11.1 ( fL) Final Performing Location [facility] [place] [address]
--- OUTSIDE RECORDS SUMMARY | 2024-03-26 16:20 | External Medical Summary ---
Author Name Unknown Address Unknown Organization K09:[facility] Amena Nav[address] [place] [address] Laboratory Report Ordering Provider Test Date Status KALPESH SERRANO 02/05/2024 08:12:39 Final Observation Date Value Abnormality Reference (Units ) Status BUN 02/05/2024 08:12:39 16 6-20 (mg/dL) Final Creatinine 02/05/2024 08:12:39 1.1 0.6-1.2 (mg/dL) Final Glomerular filtration rate/1.73 sq M.predicted [Volume Rate/Area] in Serum, Plasma or Blood by Creatinine-based formula (CKD-EPI) 02/05/2024 08:12:39 79 >=60 (mL/min) Final eGFR is calculated based on the CKD-EPI 2020 equation. Sodium 02/05/2024 08:12:39 142 135-146 (m mol/L) Final Potassium 02/05/2024 08:12:39 4.0 3.5-5.1 (m mol/L) Final Cl 02/05/2024 08:12:39 104 98-107 (mm ol/L) Final CO2 02/05/2024 08:12:39 29 22-32 (mmo l/L) Final Anion gap 02/05/2024 08:12:39 9 7-15 (mmol /L) Final Glucose 02/05/2024 08:12:39 102 70-120 (mg /dL) Final Albumin 02/05/2024 08:12:39 4.0 3.8-5.0 (g /dL) Final AST (Aspartate aminotransferase) 02/05/2024 08:12:39 18 10-50 (U/L) Final Alk Phos 02/05/2024 08:12:39 103 35-130 (U/ L) Final Bilirubin, Total 02/05/2024 08:12:39 0.3 <=1 .2 (mg/dL) Final Calcium 02/05/2024 08:12:39 9.1 8.4-10.2 ( mg/dL) Final Protein 02/05/2024 08:12:39 6.1 6.0-8.3 (g /dL) Final ALT (Alanine aminotransferase) 02/05/2024 08:12:39 12 10-50 (U/L) Final Performing Location [facility] [place] [address]
--- OUTSIDE RECORDS SUMMARY | 2024-03-26 16:20 | External Medical Summary | Summary of Care ---
Author Name Unknown Organization [facility] Address [address] [facility] [place] [address] Phone [phone] Care Team Providers Care Casting House Worker Name Role Phone Michael Collins MD Primary Care Provi zehra Reason for Visit * Reason Comments Chemotherapy C40 D22 Cytoxan * Episode Based Medications (Routine) - Authorized Specialty Diagnoses / Procedures Referred By Contac t Referred To Contact Diagnoses Multiple myeloma not having achieved remission (HCC) Procedures [place] DARATUMUMAB, HYALURONIDASE [place] INJ, CYCLOPHOSPHAMIDE, NOS Morgan Vásquez MD [address] [place] [address] Anc Hem/Onc Amena You DEPT CLOSED - 03/26/23 200 [facility] [place] [address] Referral ID Status Reason Start Date Expiration Date V isits Requested Visits Authorized [id number] Authorized 05/28/2022 05/12/2099 99 99 Encounter Details Date Type Department Care Team (Latest Contact Info) Description 01/30/2024 8:30 AM EDT Hem/Onc Treatment Hematology/Oncolog y Treatment, [place] [address] [place] [address] Kenyatta, Chair 5 Hem Onc Scenery 200 Amena Osman [place] [address] Multiple myeloma not having achieved remission (HCC)*; Encounter for antineoplastic chemotherapy Allergies No known active allergiesdocumented as of this encounter (statuses as of 01/30/2024) Medications Medication Sig Dispensed Refills Start Date End Date Status THEOPHYLLINE ER 450 MG PO [id number]:2 tablet at bedtime Take by mouth. Indications: [...] Take by mouth. Active Multiple Vitamins-Minerals ([facility]MMUN[facility] SU[facility]) CHEW Take [...] nostril at bedtime. PATIENT INFORMATION: Kris Galvin [address] [place] [address] [employer]: [employer] ORDER: Please start nocturnal oxygen via nasal [...] signed) Ish Caba MD Pulmonary Medicine, [address] [place] [address] [place] [facility] Medical License Number: [id number] 1 Each 09/21/2022 Active metFORMIN HCl ER [...] as of this encounter (statuses as of 01/30/2024) Active Problems Problem Noted Date Diagnosed Date [...] as of this encounter (statuses as of 01/30/2024) Resolved Problems Problem Noted Date Diagnosed Date Resolved Date Asthma in remission 08/28/2022 08/29/19 Asthma, mild persistent 08/28/202208/11 Asthma, severe persistent 08/28/2022 Stem cell transplant candidate 08/17/2019 09/02/2019 documented as of this encounter (statuses as of 01/30/2024) Immunizations Name Administration Dates Next Due COVID-19 mRNA, LNP-s, No Pre serve, 2-Dose Series (AquarisPLUS Int) 01/17/2021,08/05/2020,07/08/2020 COVID-19, LNP-s, No Preserve , Bryant-sucrose, Ages 12+ (AquarisPLUS Int) 09/26/2021 DTaP Dipth/Tet/Acell Pertussis (Infanrix), Peds 02/23/2021,11/11/2020,09/09/2020 HIB PRP-T, 4 Dose, PF, IM (H iberix, ActHib) 03/02/2021,11/11/2020,09/09/2020 Hepatitis B, 20+ yrs 02/23/2021,10/25/2020,09/09 IPV - Polio Virus Vaccine (Inact) 07/27/2021,,09/09/2020 MMR - Measles/Mumps/Rubella Vaccine 07/27/2021 Meningococcal MCV4O Conjugat e Vaccine (Menveo) 10/25/2020,09/09/2020 Pneumococcal Conjugate Vacc, 13 Valent (Prevnar) 09/09/2020,05/03/2020,03/04/2020 Pneumococcal Polysaccharide PPV23 (Pneumovax) 03/02/2021 Seasonal Influenza, PF, 6 M & above, [...] Care Team (Late st Contact Info) Description 02/05/2024 8:10 AM EDT Laboratory Laboratory [facility] [place] [address] [place] [phone] Kenyatta, Lab Scenery [address] [place] [address] 02/05/2024 8:40 AM EDT [facility] [address] [place] [address] Octavia Goins PA-C [address] [place] [address] 02/06/2024 8:30 AM EDT Hem/Onc Treatment Hematology/Oncology Treatment, [place] 200 [facility] [place] [phone] Kenyatta, Chair 4 Hem Onc Scenery 200 [facility] [place] [address] 02/07/2024 8:00 AM EDT Office Visit Rheumatology [address] [place] [phone] Darnell Higgins MD [email or web address] [place] [address] 02/12/2024 7:05 AM EDT Laboratory Lab Mobile Phlebotomy [facility] [address] [place] [address] Mvmg, Gml Mobile Home Draw [address] [facility] [place] [address] 02/13/2024 8:30 AM EDT Hem/Onc Treatment Hematology/Oncology Treatment, [place] 200 [facility] [place] [phone] Kenyatta, Chair 4 Hem Onc Scenery [address] [place] [address] 02/19/2024 7:05 AM EDT Laboratory Lab Mobile Phlebotomy [facility] [address] [place] [address] Mvmg, Gml Mobile Home Draw [address] [facility] [place] [address] 02/20/2024 8:30 AM EDT [facility] 200 [place] [phone] Park, Chair 7 Hem Onc Scenery 200 [facility] [place] [address] 02/26/2024 7:05 AM EDT Laboratory Lab [facility] Phlebot[facility] [address] [facility] [place] [address] Mvmg, Gml Mobile Home Draw [address] [facility] [place] [address] 02/27/2024 8:30 AM EDT Hem/Onc Treatment Hematology/Oncology Treatment, [place] 200 [place] [phone] Kenyatta, Chair 9 Hem Onc Scenery 200 [facility] [place] [address] 03/04/2024 7:00 AM EDT Laboratory Lab [facility] Phlebot[facility] [address] [facility] [place] [address] Mvmg, Gml Mobile Home Draw [address] [facility] [place] [address] 03/05/2024 10:45 AM EDT Office Visit Hematology/Oncology [facility] [place] 200 [facility] [place] [phone] Morgan Vásquez MD 200 [facility] [place] [address] 03/05/2024 11:15 AM EDT Hem/Onc Treatment Hematology/Oncology Treatment, [place] 200 [place] [phone] Kenyatta, Chair 1 Hem Onc Scenery 200 [facility] [place] [address] 03/11/2024 7:05 AM EDT Laboratory Lab Mobile Phlebotomy [facility] [address] [place] [address] Mvmg, Gml Mobile Home Draw [address] [place] [address] 03/18/2024 7:05 AM EST Laboratory Lab [facility]bot[facility] [address] [place] [address] Mvmg, Gml Mobile Home Draw [address] [place] [address] 03/25/2024 7:05 AM EST Laboratory Lab [facility] Phlebot[facility] [address] [place] [address] Mvmg, Gml Mobile Home Draw [address] [place] [address] 04/01/2024 7:00 AM EST Laboratory Lab [facility]lebot[facility] [address] [place] [address] Mvmg, Gml Mobile Home Draw [address] [place] [address] 04/08/2024 7:05 AM EST Laboratory Lab [facility]lebot[facility] [address] [place] [address] Mvmg, Gml Mobile Home Draw [address] [place] [address] 04/15/2024 7:05 AM EST Laboratory Lab [facility] Phlebot[facility] [address] [place] [address] Mvmg, Gml Mobile Home Draw [address] [place] [address] 04/22/2024 7:05 AM EST Laboratory Lab [facility] Phlebot[facility] [address] [place] [address] Mvmg, Gml Mobile Home Draw [address] [place] [address] 04/29/2024 7:05 AM EST Laboratory Lab Mobile Phlebotomy [facility] [address] [place] [address] Mvmg, Gml Mobile Home Draw 2520 [facility] [place], [place] [address] 05/05/2024 7:05 AM EST Laboratory Lab Mobile Phlebotomy [facility] [address] [facility] [place] [address] Mvmg, Gml Mobile Home Draw [address] [facility] [place] [address] 09/02/2024 8:20 AM EDT Office Visit Pulmonary Medicine, [facility] [address] [facility] [place] [address] Ish Caba MD [address] [facility] [place] [address] 05/03/2025 7:40 AM EST Office Visit Dermatology [address] [place] [address] Albina Romo PA-C [address] [place] [address] [place] [address] Health Maintenance Due Date Last Done Comments Depression Screening 1976 Albumin/Creatinine Ratio 1982 Cologuard 2009 Fecal Occult Blood Test 2009 Sigmoidoscopy 2009 Colonoscopy 03/03/2023 03/03/2018, 03/03/2018 Colorectal Cancer Screening 03/03/2023 COVID-19 Vaccine ( season) 2024 01/28/2022, 09/26/2021, 01/17/2021, Additional history exists Lipid Panel 11/18/2024 11/19/2019, 07/11, 07/29/2009 GFR 01/28/2025 01/29/2024, 01/11, 01/15/2024, Additional history exists Diabetes Screening 01/28/2027 01/29/2024, 0 01/22/2024, 01/15/2024, Additional history exists DTap/Tdap Vaccines (4 - [...] Completed 12/25/2021, 03/02/2021, 09/09/2020, Additional history exists HPV (Gardasil) Vaccine Aged Out No lo nger eligible based on patient's age to complete this topic documented as of this encounter Medical Devices Implanted Type Area Clam Shucking Machine Tender Device Identifier Shelf Expiration Date Model / Serial / Lot Mesh Plug Xlarge [id number] - [id number] Implanted:Qty: 1 on 12/09/2020 by John Zaragoza MD at OR [facility] Left: Groin CR BARD : DAVOL 05/09/2023 [id number] / / [id number] documented as of this encounter Visit Diagnoses [...] PRN Other, Hypersensitivity Reaction, Starting on Lilibeth 01/30/24 at 0834, Until Sat01/31/24 at 0833, For 24 hours EPINEPHrine 1 MG/ML inj 0.3 mg 0.3 mg, Intramuscular, ONCE PRN Other, Hypersensitivity Reaction or Anaphylaxis, Starting on Lilibeth 01/30/24 at 0834, Until Sat01/31/24 at 0833, For 24 hours hEParin 100 UNIT/ML Lock Flush inj 500 Units 500 Units (5 mL), IV Lock, PRN Other, IV Flush, Starting on Lilibeth 01/30/24 at 0834, Until Sat01/31/24 at 0833, For 24 hours, Do not flush if lock, PICC, or central line not in place; IV infusing or unable to flush. Hydrocortisone Sod Suc (PF) (Solu-Cortef) inj 100 mg 100 mg, IV Push, ONCE PRN Other, Hypersensitivity Reaction, Starting on Sat01/30/24 at 0834, Until Sat01/31/24 at 0833, For 24 hours meperidine (Demerol) 25 MG/ML inj 25 mg 25 mg, IV Push, ONCE PRN Shivering, Starting on Sat01/30/24 at 0834, Until Sat01/31/24 at 0833, For 24 hours NSS infusion FOR HYDRATION Intravenous, at 50 mL/hr Administer over 10 Hours, CONTINUOUS, Starting on Sat01/30/24 at 0915, Until Discontinued Start Infusion 01/30/2024 8:45 AM EDT 500 mL 50 mL/hr sodium chloride 0.9 % flush central line 10 mL 10 mL, IV Push, PRN Other, IV Flush, Starting on Sat01/30/24 at 0834, Until Sat01/31/24 at 0833, For 24 hours, Do not flush if [...] 40 mg 40 mg, Oral, ONCE, On Sat01/30/24 at 0915, For 1 dose Given 01/30/2024 8:48 AM EDT 40 mg NSS infusion FOR HYDRATION Intravenous, at 500 mL/hr Administer over 2 Hours, ONCE, 1 dose, On Sat01/30/24 at 0915 Start Infusion 01/30/2024 8:47 AM EDT 1,000 mL 500 mL/hr ondansetron [...] Power of Attor coco? No Care Teams Casting House Worker Relationship Specialty Start Date End Date Michael Collins MD [address] [place] [address] [place] [address] PCP - General Internal Medicine 03/01/14 documented as of this encounter
--- OUTSIDE RECORDS SUMMARY | 2024-03-26 16:20 | External Medical Summary ---
Author Name Unknown Address Unknown Organization K09:[facility] [place] [address] Laboratory Report Ordering Provider Test Date Status KALPESH SERRANO 02/05/2024 08:12:39 Final Observation Date Value Abnormality Reference (Units ) Status SYNC LEUKOCYTES IN BLOOD BY AUTOMATED COUNT 02/05/2024 08:12:39 3.20 Below low normal 4.00-10.80 (K/uL) Final Segs 02/05/2024 08:12:39 65.6 40.0-75.0 (%) Final Lymphs % 02/05/2024 08:12:39 12.7 Below low normal 18.0-42.0 (%) Final Monos 02/05/2024 08:12:39 18.0 Above high normal 1.0-11.0 (%) Final Eosinophils 02/05/2024 08:12:39 3.4 0.0-6.0 (%) Final Basos 02/05/2024 08:12:39 0.3 0.0-2.0 (%) Final Absolute Segs 02/05/2024 08:12:39 2.12 1.80-7.70 (K/uL) Final Lymphs, absolute 02/05/2024 08:12:39 0.41 Below low normal 1.00-4.80 (K/ul) Final Monos, Abs 02/05/2024 08:12:39 0.58 0.00-1.10 (K/uL) Final Eos, Abs 02/05/2024 08:12:39 0.11 0.00-0.70 (K/uL) Final Basos, Abs 02/05/2024 08:12:39 0.01 0.00-0.20 (K/uL) Final Performing Location [facility] [place] [address]
--- OUTSIDE RECORDS SUMMARY | 2024-03-26 16:20 | External Medical Summary | Summary of Care ---
Author Name Unknown Organization [facility] Address [address] [facility] [facility] [address] Phone [phone] Care Team Providers Care Secondary Social Studies Teacher Name Role Phone Michael Collins MD Primary Care Provi zehra Reason for Visit * Reason Comments Chemotherapy D1 C 41 Cytoxan + Da rzalex * Episode Based Medications (Routine) - Authorized Specialty Diagnoses / Procedures Referred By Contac t Referred To Contact Diagnoses Multiple myeloma not having achieved remission (HCC) Procedures IN DARATUMUMAB, HYALURONIDASE IN INJ, CYCLOPHOSPHAMIDE, NOS Morgan Vásquez MD [address] [facility] [place] [address] Anc Hem/Onc Amena You DEPT CLOSED - 03/26/23 [facility] [place] [address] Referral ID Status Reason Start Date Expiration Date V isits Requested Visits Authorized [id number] Authorized 05/28/2022 05/12/2099 99 99 Encounter Details Date Type Department Care Team (Latest Contact Info) Description 02/06/2024 8:30 AM EDT Hem/Onc Treatment Hematology/Oncolog y Treatment, [place] [address] [place] [address] [place], Chair 4 Hem Onc Scenery [address] [facility] [place] [address] Multiple myeloma not having achieved remission (HCC)*; Encounter for antineoplastic chemotherapy Allergies No known active allergiesdocumented as of this encounter (statuses as of 02/06/2024) Medications Medication Sig Dispensed Refills Start Date End Date Status THEOPHYLLINE ER 450 MG PO [id number] tablet at bedtime Take by mouth. Indications: [...] at bedtime. PATIENT INFORMATION: Kris Galvin [address] [place] [address] [employer] ORDER: Please start nocturnal oxygen via [...] signed) Ish Caba MD Pulmonary Medicine, [address] [place] [address] [place] [facility] Medical License Number: [id number] 1 Each 09/21/2022 Active metFORMIN HCl ER [...] mRNA, LNP-s, No Pre serve, 2-Dose Series (Rowl) 01/17/2021,08/05/2020,07/08/2020 COVID-19, LNP-s, No Preserve , Bryant-sucrose, Ages 12+ (Rowl) 09/26/2021 COVID-19, MRNA-LNP, 23-24, P F, 30 [...] 02/07/2024 8:40 AM EDT Office Visit Rheumatology [address] [place] [address] Darnell Higgins MD [address] [place] [address] 02/12/2024 7:05 AM EDT Laboratory [facility] [address] [place] [address] [facility] [address] [place] [address] 02/13/2024 8:30 AM EDT Hem/Onc Treatment Hematology/Oncology Treatment, [place] [address] [place] [id number] [place], Chair 4 Hem Onc Scenery [address] [place] [address] 02/19/2024 7:05 AM EDT Laboratory [facility] [address] [place] [address] [facility] [address] [place] [address] 02/20/2024 8:30 AM EDT Hem/Onc Treatment Hematology/Oncology Treatment, [place] [address] [facility] [place] [id number] [place], Chair 7 Hem Onc Scenery 200 [place] [address] 02/26/2024 7:05 AM EDT Laboratory [facility] [address] [place], [place] [address] [facility] [address] [place], [place] [address] 02/27/2024 8:30 AM EDT [facility] [address] [facility] [place] [phone] [place], Chair 9 Hem Onc Scenery 200 [facility] [place], [place] [address] 03/04/2024 7:00 AM EDT Laboratory [facility] [address] [place], [place] [address] [facility] [address] [place], [place] [address] 03/05/2024 10:45 AM EDT Office Visit Hematology/Oncology [facility] [address] [facility], [place] [phone] Morgan Vásquez MD [address] [facility], [place] [address] 03/05/2024 11:15 AM EDT [facility] [address] [facility] [place] [phone] Park, Chair 3 Hem Onc Scenery [address] [facility] [place] [address] 03/11/2024 7:05 AM EDT Laboratory [facility] [address] [place], [place] [address] [facility] [address] [place], [place] [address] 03/18/2024 7:05 AM EST Laboratory [facility] [address] [place] [address] [facility] [address] [place] [address] 03/25/2024 7:05 AM EST Laboratory [facility] [address] [place] [address] [facility] [address] [place] [address] 04/01/2024 7:00 AM EST Laboratory [facility] [address] [place] [address] [facility] [address] [place] [address] 04/08/2024 7:05 AM EST Laboratory [facility] [address] [place] [address] [facility] [address] [place] [address] 04/15/2024 7:05 AM EST Laboratory [facility] [address] [place] [address] [facility] [address] [place] [address] 04/22/2024 7:05 AM EST Laboratory [facility] [address] [place] [address] [facility] [address] [place] [address] 04/29/2024 7:05 AM EST Laboratory [facility] [address] [place] [address] [facility] [address] [place] [address] 05/05/2024 7:05 AM EST Laboratory [facility] [address] [place] [address] [facility] [address] [place] [address] 07/28/2024 7:00 AM EDT Office Visit Neurology [facility] [address] [place] [address] Sandrita Pineda PAManolo [address] [facility] [place] [address] 09/02/2024 8:20 AM EDT Office Visit Pulmonary Medicine, [facility] [address] [place] [address] Ish Caba MD [address] [place] [address] 05/03/2025 7:40 AM EST Office Visit Dermatology [address] [place] [address] Albina [place] PA-C [address] [place] [address] [place] [address] Health Maintenance Due Date Last Done Comments [...] this encounter Medical Devices Implanted Type Area Coal Gas[employer] Technician Device Identifier Shelf Expiration Date Model / Serial / Lot Mesh Plug Xlarge [id number] - [id number] Implanted:Qty: 1 on 12/09/2020 by John Zaragoza MD at [facility] Left: Groin CR BARD : DAVOL 05/09/2023 [id number] / / [id number] documented as of this encounter Visit Diagnoses [...] AM EDT 740 mg 517.4 mL/hr [facility] (Darzalex Faspro) 1800 mg-42398 units/ 15 ml subcut inj 15 mL, [...] Power of Attor coco? No Care Teams Secondary Social Studies Teacher Relationship Specialty Start Date End Date Michael Collins MD [address] [place] [address] [place] [id number] PCP - General Internal Medicine 03/01/14 documented as of this encounter
--- OUTSIDE RECORDS SUMMARY | 2024-03-26 16:20 | External Medical Summary | Summary of Care ---
Author Name Unknown Organization [facility] Address [address] [facility] [address] Phone [phone] Care Team Providers Care Machine Wiper Name Role Phone Michael Collins MD Primary Care Provi zehra Reason for Visit * Reason Comments Rheum Follow Up Recheck multiple shauna nt pain Encounter Details Date Type Department Care Team (Latest Contact Info) Description 02/07/2024 8:40 AM EDT Office Visit Rheumatology [address] [place] [phone] Darnell Higgins MD [address] [facility] [place] [address] Primary osteoarthritis, left shoulder*; Primary osteoarthritis, left ankle and foot; Primary osteoarthritis of both knees; Primary osteoarthritis of both hands Allergies No known active allergiesdocumented as of this encounter (statuses as of 02/07/2024) Medications Medication Sig Dispensed Refills Start Date End Date Status THEOPHYLLINE ER 450 MG PO [id number]:2 tablet at bedtime Take by mouth. Indications: [...] nostril at bedtime. PATIENT INFORMATION: Kris Galvin [address] [place] [address] [employer]: [employer]TBD ORDER: Please start nocturnal oxygen via nasal [...] (electronically signed) Ish Caba MD Pulmonary Medicine, [address] [place] [address] [place] [facility] Medical License Number: [id number] Each 09/21/2022 Active metFORMIN HCl ER [...] 2.5 mg NEBULIZER PRN 07/26/2023 07/25/2024 Active Lidocaine (PF) 2 % (PF) inj 20 mgIndications:Primary osteoarthritis, left shoulder 20 mg IX ONCE 02/07/2024 02/07/2024 Ended Lidocaine (PF) 2 % (PF) inj 20 mgIndications:Primary osteoarthritis, left ankle and foot 20 mg IX ONCE 02/07/2024 02/07/2024 Ended Lidocaine (PF) 2 % (PF) inj 20 mgIndications:Primary osteoarthritis of both knees 20 mg IX ONCE 02/07/2024 02/07/2024 Ended methylPREDNISolone acetate (Depo-Medrol) 40 MG/ML inj 40 mgIndications:Primary osteoarthritis, left shoulder 40 mg IX ONCE 02/07/2024 02/07/2024 Ended methylPREDNISolone acetate (Depo-Medrol) 40 MG/ML inj 40 mgIndications:Primary osteoarthritis, left ankle and foot 40 mg IX ONCE 02/07/2024 02/07/2024 Ended methylPREDNISolone acetate (Depo-Medrol) 40 MG/ML inj 40 mgIndications:Primary osteoarthritis of both knees 40 mg IX ONCE 02/07/2024 02/07/2024 Ended methylPREDNISolone acetate (Depo-Medrol) 40 MG/ML inj 20 mgIndications:Primary osteoarthritis of both hands 20 mg IX ONCE 02/07/2024 02/07/2024 Ended methylPREDNISolone acetate (Depo-Medrol) 40 MG/ML inj 20 mgIndications:Primary osteoarthritis of both hands 20 mg IX ONCE 02/07/2024 02/07/2024 Ended documented as of this encounter (statuses as of 02/07/2024) Active Problems Problem Noted Date Diagnosed Date [...] as of this encounter (statuses as of 02/07/2024) Resolved Problems Problem Noted Date Diagnosed Date Resolved Date Asthma in remission 08/28/2022 08/29/19 Asthma, mild persistent 08/28/2022 04/12/2022 Asthma, severe persistent 08/28/2022 Stem cell transplant candidate 08/17/2019 09/02/2019 documented as of this encounter (statuses as of 02/07/2024) Immunizations Name Administration Dates Next Due COVID-19 mRNA, LNP-s, No Pre serve, 2-Dose Series ([employer]) 01/17/2021,08/05/2020,07/08/2020 COVID-19, LNP-s, No Preserve , Bryant-sucrose, Ages 12+ (Pfizer) 09/26/2021 COVID-19, MRNA-LNP, 23-24, P F, 30 MCG/0.3 mL, 12 YRS AND ABOVE, IM [facility] 02/01/2024 DTaP Dipth/Tet/Acell Pertussis (Infanrix), Peds [...] as of this encounter Progress Notes * Darnell Higgins MD - 02/07/2024 8:53 AM EDTAssociated Order(s): LG Joint Inj/Arthro: L subacromial bursa; LG Joint Inj/Arthro: L knee; SM Joint Inj/Arthro: L index MCP; Joint Inj/Arthro: L ankle; SM Joint Inj/Arthro: R long MCP Post-Procedure Diagnose(s): Primary osteoarthritis of both knees; Primary osteoarthritis of both hands; Primary osteoarthritis, left ankle and foot; Primary osteoarthritis, left shoulder Kris Galvin is a 58 year old male patient. ICD-10-CM 1. Primary osteoarthritis, left shoulder M19.012 2. Primary osteoarthritis, left ankle and foot M19.072 3. Primary osteoarthritis of both knees M17.0 4. 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 LG Joint Inj/Arthro: L subacromial bursa on 02/07/2024 9:13 AM Indications: pain Details: 25 G needle, posterior approach Medications: (40 mg of Depo-Medrol and 1 mL 2% lidocaine) Outcome: tolerated well, no immediate complications Procedure, treatment alternatives, risks and benefits explained, specific risks discussed. Consent was given by the patient. Immediately prior to procedure a time out was called to verify the correctpatient, procedure, equipment, user support specialist and site/side marked as required. Patient was prepped and draped in the usual sterile fashion. LG Joint Inj/Arthro: L knee on 02/07/2024 9:14 AM Indications: pain Details: 25 G needle, anterior approach Medications: (40 mg of Depo-Medrol and 1 mL 2% lidocaine) Outcome: tolerated well, no immediate complications Procedure, treatment alternatives, risks and benefits explained, specific risks discussed. Consent was given by the patient. Immediately prior to procedure a time out was called to verify the correctpatient, procedure, equipment, user support specialist and site/side marked as required. Patient was prepped and draped in the usual sterile fashion. SM Joint Inj/Arthro: L index MCP on 02/07/2024 9:14 AM Indications: pain Details: 25 G needle, ulnar approach Medications: (20 mg of Depo-Medrol) Outcome: tolerated well, no immediate complications Procedure, treatment alternatives, risks and benefits explained, specific risks discussed. Consent was given by the patient. Immediately prior to procedure a time out was called to verify the correctpatient, procedure, equipment, user support specialist and site/side marked as required. Patient was prepped and draped in the usual sterile fashion. Joint Inj/Arthro: L ankle on 02/07/2024 9:14 AM Indications: pain Details: 25 G needle, anteromedial approach Medications: (40 mg of Depo-Medrol and 1 mL 2% lidocaine) Outcome: tolerated well, no immediate complications Procedure, treatment alternatives, risks and benefits explained, specific risks discussed. Consent was given by the patient. Immediately prior to procedure a time out was called to verify the correctpatient, procedure, equipment, user support specialist and site/side marked as required. Patient was prepped and draped in the usual sterile fashion. SM Joint Inj/Arthro: R long MCP on 02/07/2024 9:15 AM Indications: pain Details: 25 G needle, radial approach Medications: (20 mg of Depo-Medrol) Outcome: tolerated well, no immediate complications Procedure, treatment alternatives, risks and benefits explained, specific risks discussed. Consent was given by the patient. Immediately prior to procedure a time out was called to verify the correctpatient, procedure, equipment, user support specialist and site/side marked as required. Patient was prepped and draped in the usual sterile fashion. Darnell Higgins MD 02/07/2024 documented in this encounter Nursing Notes * Gilberto Giron LPN - 02/07/2024 8:50 AM EDT Chief Complaint Patient presents with Rheum Follow Up Recheck multiple joint pain documented in this encounter Plan of Treatment Upcoming Encounters Date Type Department Care Team (Late st Contact Info) Description 02/12/2024 7:05 AM EDT Laboratory Lab Mobile Phlebotomy [facility] [address] [place], [place] [address] [facility], [facility] Mobile Home Draw [address] [place] [address] 02/13/2024 8:30 AM EDT Hem/Onc Treatment Hematology/Oncology Treatment, [address], [place] [phone] Kenyatta, Chair 4 Hem Onc Scenery [address] [facility] [place], [place] [address] 02/19/2024 7:05 AM EDT Laboratory Lab Mobile Phlebotomy [facility] [address] [place] [address] [facility], Gml Mobile Home Draw [address] [place], [place] [address] 02/20/2024 8:30 AM EDT Hem/Onc Treatment Hematology/Oncology Treatment, [place] [address] [place] [phone] Kenyatta, Chair 7 Hem Onc Scenery 200 [facility] [place] [address] 02/26/2024 7:05 AM EDT Laboratory Lab Mobile Phlebotomy [facility] [address] [place] [address] [facility], Gml Mobile Home Draw [address] [place], [place] [address] 02/27/2024 8:30 AM EDT Hem/Onc Treatment Hematology/Oncology Treatment, [place] [address] [place] [phone] Kenyatta, Chair 9 Hem Onc Scenery [address] [place] [address] 03/04/2024 7:00 AM EDT Laboratory Lab Mobile Phlebotomy [facility] [address] [place], [place] [address] [facility], Gml Mobile Home Draw [address] [place], [place] [address] 03/05/2024 10:45 AM EDT Office Visit Hematology/Oncology [facility] [address] [place], [place] [phone] Morgan Vásquez MD [address] [facility] [place], [place] [address] 03/05/2024 11:15 AM EDT Hem/Onc Treatment Hematology/Oncology Treatment, [place] [address] [place], [place] [phone] Kenyatta, Chair 3 Hem Onc [facility] [address] [facility] [place], [place] [address] 03/11/2024 7:05 AM EDT Laboratory Lab Mobile Phlebotomy [facility] [address] [place], [place] [address] [facility], Gml Mobile Home Draw [address] [place], [place] [address] 03/18/2024 7:05 AM EST Laboratory Lab Mobile Phlebotomy [facility] [address] [place], [place] [address] [facility], Gml Mobile Home Draw [address] [place], [place] [address] 03/25/2024 7:05 AM EST Laboratory Lab Mobile Phlebotomy [facility] [address] [place], [place] [address] M[facility], Gml Mobile Home Draw [address] [place], [place] [address] 04/01/2024 7:00 AM EST Laboratory Lab Mobile Phlebotomy [facility] [address] [place], [place] [address] M[facility], Gml Mobile Home Draw [address] [place] [address] 04/08/2024 7:05 AM EST Laboratory Lab Mobile Phlebotomy [facility] [address] [place] [address] Mvmg, Gml Mobile Home Draw [address] [place] [address] 04/15/2024 7:05 AM EST Laboratory Lab Mobile Phlebotomy [facility] [address] [place] [address] Mvmg, Gml Mobile Home Draw [address] [place] [address] 04/22/2024 7:05 AM EST Laboratory Lab Mobile Phlebotomy [facility] [address] [place] [address] Mvmg, Gml Mobile Home Draw [address] [place] [address] 04/29/2024 7:05 AM EST Laboratory Lab Mobile Phlebotomy [facility] [address] [place] [address] Mv[facility], Gml Mobile Home Draw [address] [facility] [place] [address] 05/05/2024 7:05 AM EST Laboratory Lab Mobile Phlebotomy [facility] [address] [facility] [place] [address] M[facility], Gml Mobile Home Draw [address] [facility] [place] [address] 07/28/2024 7:00 AM EDT Office Visit Neurology [facility] [address] [place] [address] Sandrita Pineda PA-C [address] [place] [id number] 09/02/2024 8:20 AM EDT Office Visit Pulmonary Medicine, [facility] [address] [facility] [place] [address] Ish Caba MD [address] [place] [address] 05/03/2025 7:40 AM EST Office Visit Dermatology [address] [place] [address] Albina Romo PA-C [address] [place] [address] [place] [address] Health Maintenance Due Date Last Done Comments [...] this encounter Medical Devices Implanted Type Area Beverage Server Device Identifier Shelf Expiration Date Model / Serial / Lot Mesh Plug Xlarge [id number] - [id number] Implanted:Qty: 1 on 12/09/2020 by John Zaragoza MD at [facility] Left: Groin CR BARD : DAVOL 05/09/2023 [id number] / / [id number] documented as of this encounter Procedures Procedure Name Priority Date/Time Associated Diagnosis Comments MA ARTHROCENTESIS ASPIR&/INJ SMALL JT/BURSA W/O US Routine 02/07/2024 9:15 AM EDT Primary osteoarthritis of both hands MA ARTHROCENTESIS ASPIR&/INJ INTERM JT/BURS W/O US Routine 02/07/2024 9:14 AM EDT Primary osteoarthritis, left ankle and foot MA ARTHROCENTESIS ASPIR&/INJ SMALL JT/BURSA W/O US Routine 02/07/2024 9:14 AM EDT Primary osteoarthritis of both hands MA ARTHROCENTESIS ASPIR&/INJ MAJOR JT/BURSA W/O US Routine 02/07/2024 9:14 AM EDT Primary osteoarthritis of both knees MA ARTHROCENTESIS ASPIR&/INJ MAJOR JT/BURSA W/O US Routine 02/07/2024 9:13 AM EDT Primary osteoarthritis, left shoulder documented in this encounter Results * MA ARTHROCENTESIS ASPIR&/INJ SMALL JT/BURSA W/O US (02/07/2024 9:15 AM EDT) Narrative Darnell Higgins MD - 02/07/2024 9:15 AM EDT Darnell Higgins MD 02/07/2024 9:16 AM SM Joint Inj/Arthro: R long MCP on 02/07/2024 9:15 AM Indications: pain Details: 25 G needle, radial approach Medications: (20 mg of Depo-Medrol) Outcome: tolerated well, no immediate complications Procedure, treatment alternatives, risks and benefits explained, specific risks discussed. Consent was given by the patient. Immediately prior to procedure a time out was called to verify the correct patient, procedure, equipment, user support specialist and site/side marked as required. Patient was prepped and draped in the usual sterile fashion. Darnell Higgins MD PROCDOC FORM * MA ARTHROCENTESIS ASPIR&/INJ INTERM JT/BURS W/O US (02/07/2024 9:14 AM EDT) Darnell Cannon MD - 02/07/2024 9:14 AM EDT Darnell Higgins MD 02/07/2024 9:16 AM MD Joint Inj/Arthro: L ankle on 02/07/2024 9:14 AM Indications: pain Details: 25 G needle, anteromedial approach Medications: (40 mg of Depo-Medrol and 1 mL 2% lidocaine) Outcome: tolerated well, no immediate complications Procedure, treatment alternatives, risks and benefits explained, specific risks discussed. Consent was given by the patient. Immediately prior to procedure a time out was called to verify the correct patient, procedure, equipment, user support specialist and site/side marked as required. Patient was prepped and draped in the usual sterile fashion. Darnell Higgins MD PROCDOC FORM * MA ARTHROCENTESIS ASPIR&/INJ SMALL JT/BURSA W/O US (02/07/2024 9:14 AM EDT) Darnell Cannon MD - 02/07/2024 9:14 AM EDT Darnell Higgins MD 02/07/2024 9:16 AM SM Joint Inj/Arthro: L index MCP on 02/07/2024 9:14 AM Indications: pain Details: 25 G needle, ulnar approach Medications: (20 mg of Depo-Medrol) Outcome: tolerated well, no immediate complications Procedure, treatment alternatives, risks and benefits explained, specific risks discussed. Consent was given by the patient. Immediately prior to procedure a time out was called to verify the correct patient, procedure, equipment, user support specialist and site/side marked as required. Patient was prepped and draped in the usual sterile fashion. Darnell Higgins MD PROCDOC FORM * MA ARTHROCENTESIS ASPIR&/INJ MAJOR JT/BURSA W/O US (02/07/2024 9:14 AM EDT) Darnell Cannon MD - 02/07/2024 9:14 AM EDT Darnell Higgins MD 02/07/2024 9:16 AM LG Joint Inj/Arthro: L knee on 02/07/2024 9:14 AM Indications: pain Details: 25 G needle, anterior approach Medications: (40 mg of Depo-Medrol and 1 mL 2% lidocaine) Outcome: tolerated well, no immediate complications Procedure, treatment alternatives, risks and benefits explained, specific risks discussed. Consent was given by the patient. Immediately prior to procedure a time out was called to verify the correct patient, procedure, equipment, user support specialist and site/side marked as required. Patient was prepped and draped in the usual sterile fashion. Darnell Higgins MD PROCDOC FORM * MA ARTHROCENTESIS ASPIR&/INJ MAJOR JT/BURSA W/O US (02/07/2024 9:13 AM EDT) Darnell Cannon MD - 02/07/2024 9:13 AM EDT Darnell Higgins MD 02/07/2024 9:16 AM LG Joint Inj/Arthro: L subacromial bursa on 02/07/2024 9:13 AM Indications: pain Details: 25 G needle, posterior approach Medications: (40 mg of Depo-Medrol and 1 mL 2% lidocaine) Outcome: tolerated well, no immediate complications Procedure, treatment alternatives, risks and benefits explained, specific risks discussed. Consent was given by the patient. Immediately prior to procedure a time out was called to verify the correct patient, procedure, equipment, user support specialist and site/side marked as required. Patient was prepped and draped in the usual sterile fashion. Darnell Higgins MD PROCDOC FORM documented in this encounter Visit Diagnoses Diagnosis Primary osteoarthritis, left shoulder- Primary Primary osteoarthritis, left ankle and foot Primary osteoarthritis of both knees Primary localized osteoarthrosis, lower leg Primary osteoarthritis of both hands documented in this encounter Administered Medications Inactive Administered Medications - up to 3 most recent administrations Medication Order MAR Action Action Date Dose Rate Site Lidocaine (PF) 2 % (PF) inj 20 mg 20 mg, Intra-Articular, ONCE, On Sat02/07/24 at 0930, For 1 dose Given 02/07/2024 8:54 AM EDT 20 mg S [place] Left Lidocaine (PF) 2 % (PF) inj 20 mg 20 mg, Intra-Articular, ONCE, On Sat02/07/24 at 0930, For 1 dose Given 02/07/2024 8:54 AM EDT 20 mg A nkle Left Lidocaine (PF) 2 % (PF) inj 20 mg 20 mg, Intra-Articular, ONCE, On Sat02/07/24 at 0930, For 1 dose Given 02/07/2024 8:55 AM EDT 20 mg K nee Left methylPREDNISolone acetate (Depo-Medrol) 40 MG/ML inj 20 mg 20 mg, Intra-Articular, ONCE, On Sat02/07/24 at 0930, For 1 dose Given 02/07/2024 8:54 AM EDT 20 mg H and Right methylPREDNISolone acetate (Depo-Medrol) 40 MG/ML inj 20 mg 20 mg, Intra-Articular, ONCE, On Sat02/07/24 at 0930, For 1 dose Given 02/07/2024 8:54 AM EDT 20 mg H and Left methylPREDNISolone acetate (Depo-Medrol) 40 MG/ML inj 40 mg 40 mg, Intra-Articular, ONCE, On Sat02/07/24 at 0930, For 1 dose Given 02/07/2024 8:54 AM EDT 40 mg S [place] Left methylPREDNISolone acetate (Depo-Medrol) 40 MG/ML inj 40 mg 40 mg, Intra-Articular, ONCE, On Sat02/07/24 at 0930, For 1 dose Given 02/07/2024 8:54 AM EDT 40 mg A nkle Left methylPREDNISolone acetate (Depo-Medrol) 40 MG/ML inj 40 mg 40 mg, Intra-Articular, ONCE, On Sat02/07/24 at 0930, For 1 dose Given 02/07/2024 8:55 AM EDT 40 mg K nee Left documented in this encounter Advance Directives * [...] Power of Attor coco? No Care Teams Machine Wiper Relationship Specialty Start Date End Date Michael Collins MD [address] [place] [address] [place] [address] PCP - General Internal Medicine 03/01/14 documented as of this encounter
--- OUTSIDE RECORDS SUMMARY | 2024-03-26 16:20 | External Medical Summary ---
Author Name Unknown Address Unknown Organization K01:LABORATORY [facility] [place] - [address] [facility] [address] Laboratory Report Ordering Provider Test Date Status KALPESH SERRANO 02/05/2024 08:12:39 Final Observation Date Value Abnormality Reference (Units) Status PARAPROTEIN NORMAL/ABNORMAL 08:12:39 Abnormal Abnormal Normal Final Protein 4 08:12:39 5.6 Below low normal 6.0-8.3 (g/dL) Final Albumin/Protein.total [Pure mass fraction] in Serum or Plasma by Electrophoresis 4 08:12:39 3.38 3.30-4.40 (g/dL) Final Alpha 1 globulin/Protein.tota l [Pure mass fraction] in Serum or Plasma by Electrophoresis 4 08:12:39 0.19 0.10-0.30 (g/dL) Final Alpha 2 globulin/Protein.tota l [Pure mass fraction] in Serum or Plasma by Electrophoresis 4 08:12:39 0.81 0.60-1.00 (g/dL) Final Beta globulin/Protein.tota l [Pure mass fraction] in Serum or Plasma by Electrophoresis 4 08:12:39 0.75 Below low normal 0.80-1.30 (g/dL) Final Gamma globulin/Protein.tota l [Pure mass fraction] in Serum or Plasma by Electrophoresis 4 08:12:39 0.48 Below low normal 0.70-1.70 (g/dL) Final Protein Fractions [Interpretation] in Serum or Plasma by Electrophoresis Narrative 4 08:12:39 Abnormal. A paraprotein is present that has been previously identified as a monoclonal IgG kappa. Paraprotein concentration is detectable, but less than 0.5 g/dL, unable to be accurately quantified by this method. Decreased gamma fraction. Final Performing Location LABORATORY C - [address] [facility] [address]
--- OUTSIDE RECORDS SUMMARY | 2024-03-26 16:20 | External Medical Summary | Summary of Care ---
Author Name Unknown Organization [facility] Address [address] [facility] [place] [address] Phone [phone] Care Team Providers Care Hog Room Supervisor Name Role Phone Michael Collins MD Primary Care Provi zehra Reason for Visit * Reason Comments Outpatient Testing Encounter Details Date Type Department Care Team (Late st Contact Info) Description 02/05/2024 8:10 AM EDT Laboratory Laboratory [facility] [address] [place] [phone] [place], Lab Scenery [address] [place] [address] Multiple myeloma (HCC); Multiple myeloma in remission (HCC) Allergies No known active allergiesdocumented as of this encounter (statuses as of 02/05/2024) Medications Medication Sig Dispensed Refills Start Date End Date Status THEOPHYLLINE ER 450 MG PO [id number] tablet at bedtime Take by mouth. Indications: [...] nostril at bedtime. PATIENT INFORMATION: Kris Galvin [address] [place] [address] Resource Guru: [employer]/TBD ORDER: Please start nocturnal oxygen via nasal [...] (electronically signed) Ish Caba MD Pulmonary Medicine, [address] [place] [address] [place] [facility] Medical License Number: [id number] 1 Each 09/21/2022 Active metFORMIN HCl ER [...] as of this encounter (statuses as of 02/05/2024) Active Problems Problem Noted Date Diagnosed Date [...] as of this encounter (statuses as of 02/05/2024) Resolved Problems Problem Noted Date Diagnosed Date Resolved Date Asthma in remission 08/28/2022 08/29/19 Asthma, mild persistent 08/28/202208/11 Asthma, severe persistent 08/28/2022 Stem cell transplant candidate 08/17/2019 09/02/2019 documented as of this encounter (statuses as of 02/05/2024) Immunizations Name Administration Dates Next Due COVID-19 mRNA, LNP-s, No Pre serve, 2-Dose Series (Dealer Ignition) 01/17/2021,08/05/2020,07/08/2020 COVID-19, LNP-s, No Preserve , Bryant-sucrose, [...] Upcoming Encounters Date Type Department Care Team (Latest Contact Info) Description 02/05/2024 8:40 AM EDT Office Visit Neurology [facility] [place] [address] [facility] [place] [address] Octavia Goins PA-C [address] [facility] [place] [address] HISTORY & PHYSICAL EXAMINATION - NEUROLOGY 02/06/2024 8:30 AM EDT Hem/Onc Treatment Hematology/Oncology Treatment, [place] 200 [facility] [place] [phone] [place], Chair 4 Hem On[address] [place] [address] 02/07/2024 8:40 AM EDT Office Visit Rheumatology [address] [place] [phone] Darnell Higgins MD [address] [place] [address] 02/12/2024 7:05 AM EDT Laboratory [facility] [address] [place] [address] [facility] [address] [place] [address] 02/13/2024 8:30 AM EDT Hem/Onc Treatment Hematology/Oncology Treatment, [place] 200 [facility] [place] [phone] [place], Chair 4 Hem Onc [facility] [place] [facility] [place] [address] 02/19/2024 7:05 AM EDT Laboratory [facility] [address] [place] [address] [facility] [address] [facility] [place], [place] [address] 02/20/2024 8:30 AM EDT [facility] [address] [place] [phone] [place], Chair 7 Hem Onc Scenery 200 [place] [address] 02/26/2024 7:05 AM EDT Laboratory [facility] [address] [facility] [place] [address] [facility], [facility] [address] [facility] [place], [place] [address] 02/27/2024 8:30 AM EDT Hem[facility] [address] [place] [phone] [place], Chair 9 Hem Onc Scenery 200 [place] [address] 03/04/2024 7:00 AM EDT Laboratory [facility] [address] [facility] [place], [place] [address] [facility] [address] [facility] [address] 03/05/2024 10:45 AM EDT Office Visit Hematology/Oncology [facility] [address] [place] [phone] Morgan Vásquez MD 200 [place] [address] 03/05/2024 11:15 AM EDT Hem[facility] [address] [place] [phone] [place], Chair 1 Hem Onc Scenery 200 [place] [address] 03/11/2024 7:05 AM EDT Laboratory [facility] [address] [place] [address] [facility] [address] [place] [address] 03/18/2024 7:05 AM EST Laboratory [facility] [address] [place] [address] [facility] [address] [place] [address] 03/25/2024 7:05 AM EST Laboratory [facility] [address] [place] [address] [facility] [address] [place] [address] 04/01/2024 7:00 AM EST Laboratory [facility] [address] [place] [address] [facility] [address] [place] [address] 04/08/2024 7:05 AM EST Laboratory [facility] [address] [place] [address] [facility] [address] [place] [address] 04/15/2024 7:05 AM EST Laboratory [facility] [address] [place] [address] [facility] [address] [place] [address] 04/22/2024 7:05 AM EST Laboratory [facility] [address] [place] [address] [facility] [address] [place] [address] 04/29/2024 7:05 AM EST Laboratory [facility] [address] [place] [address] [facility], [facility] [address] [facility] [place] [address] 05/05/2024 7:05 AM EST Laboratory [facility] [address] [facility] [place] [address] [facility] [address] [facility] [place] [address] 09/02/2024 8:20 AM EDT Office Visit Pulmonary Medicine, [facility] [address] [place] [address] Ish Caba MD [address] [place] [address] 05/03/2025 7:40 AM EST Office Visit Dermatology [address] [place] [address] Albina Romo PA-C [address] [place] [address] [place] [address] Pending Results Name Type Priority Associated Diagnoses Date /Time SERUM FREE LIGHT CHAINS Lab STAT Multiple myeloma ([facility]) 02/05/2024 8:12 AM EDT SERUM PROTEIN ELECTROPHORESIS REFLEX PROFILE Lab STAT Multiple myeloma ([facility]) 02/05/2024 8:12 AM EDT IMMUNOGLOBULIN QUANTITATIVE Lab STAT Multiple myeloma ([facility]) 02/05/2024 8:12 AM EDT CBC WITH WBC DIFFERENTIAL Lab STAT Multiple myeloma in remission ([facility]) 02/05/2024 8:12 AM EDT COMPREHENSIVE METABOLIC PANEL Lab STAT Multiple myeloma in remission ([facility]) 02/05/2024 8:12 AM EDT CBC Lab STAT Multiple myeloma in remission ([facility]) 02/05/2024 8:12 AM EDT DIFFERENTIAL, AUTOMATED Lab STAT Multiple myeloma in remission ([facility]) 02/05/2024 8:12 AM EDT Health Maintenance Due Date Last Done Comments [...] this encounter Medical Devices Implanted Type Area Professional Application Designer Device Identifier Shelf Expiration Date Model / Serial / Lot Mesh Plug Xlarge [id number] - [id number] Implanted:Qty: 1 on 12/09/2020 by John Zaragoza MD at OR [facility] Left: Demond RIVAS BARD : DAVOL 05/09/2023 [id number] / / [id number] documented as of this encounter Visit Diagnoses Diagnosis Multiple myeloma (HCC) Multiple myeloma, without mention of having achieved remission Multiple myeloma in remission (HCC) Multiple myeloma in remission documented in this encounter Advance Directives [...] Power of Attor coco? No Care Teams Hog Room Supervisor Relationship Specialty Start Date End Date Michael Collins MD [address] [place] [address] [place] [address] PCP - General Internal Medicine 03/01/14 documented as of this encounter
--- OUTSIDE RECORDS SUMMARY | 2024-03-26 16:20 | External Medical Summary | Summary of Care ---
Author Name Unknown Organization [facility] Address [address] [facility] [address] Phone [phone] Care Team Providers Care Fire Alarm Repairer Name Role Phone Michael Collins MD Primary Care Provi [facility] Reason for Visit * Reason Comments Return Neuro Encounter Details Date Type Department Care Team (Late st Contact Info) Description 02/05/2024 8:40 AM EDT Office Visit Neurology [facility] [place] [address] [facility] [place] [address] Octavia Goins PA-C [address] [facility] [place] [address] Chemotherapy-induced neuropathy (HCC)*; Multiple myeloma not having achieved remission (HCC); History of autologous stem cell transplant (HCC) Allergies No known active allergiesdocumented as of this encounter (statuses as of 02/05/2024) Medications Medication Sig Dispensed Refills Start Date End Date Status THEOPHYLLINE ER 450 MG PO [id number] tablet at bedtime Take by mouth. Indications: [...] CAPS Take by mouth. Active Multiple Vitamins-Minerals ([facility] IMMUNITY SUPPORT) CHEW Take by [...] nostril at bedtime. PATIENT INFORMATION: Kris Galvin [address] [place] [address] [employer]: [employer] ORDER: Please start nocturnal oxygen via nasal [...] signed) Ish Caba MD Pulmonary Medicine, [address] [place] [address] [place] [facility] Medical License Number: [id number] 1 Each 09/21/2022 Active metFORMIN HCl ER [...] Sign Reading Time Taken Comments Blood Pressure 132/80 02/05/2024 8:25 AM EDT Pulse 85 02/05/2024 8:25 AM EDT Temperature 36.2 C (97.1 F) 02/05/2024 8:25 AM ED T Respiratory Rate - - Oxygen Saturation 93% 02/05/2024 8:25 AM EDT Inhaled Oxygen Concentration - - Weight 132 kg (291 lb) 02/05/2024 8:25 AM EDT Height - - Body Mass Index 39.47 10/11/2023 9:26 AM EDT documented in this [...] as of this encounter Progress Notes * Octavia Goins PA-C - 02/05/2024 8:10 AM EDT HISTORY & PHYSICAL EXAMINATION - NEUROLOGY Name: Kris Galvin Date: 02/05/2024 Time: 8:10 AM Referring Provider: Michael Moreland* Chief Complaint: Chief Complaint Patient presents with Return Neuro This is a 58 year old right handed gentleman returns today for follow up for neuropathy. HPI & Source of HPI The patient and spouse was the historian, and they are reliable. He is a patient of Dr Vásquez'natalya in hemotology who had a diagnosis of IgG kappa monoclonal gammopathy.He then had a work up and on 04/08/2019 a work up that was positive for myeloma. He completed induction treatment Revlimid, Velcade and Decadron, had a very good response, bone marrow examination done at that time in late July 2019 showed focal atypical plasma cell infiltrates.He underwent autologous stem cell transplant on 09/01/2019 at [facility] under the guidance of Dr. Wolff. During the time at [place] after the last chemotherapy treatment he started having severe leg pain and numbness. The pain is so bad at times he wanted to cut his legs off. He was on gabepentin and it was increased by Dr Vásquez but was not helping. He is unable to sleep at night due to the pain. He has had several head injuries back injuries that are also playing a part in the pain issues. He is on Cymbalta 60 mg (twice daily) and lyrica 25 mg twice daily was added which is working well.He can tell when the pills are due. No new issues. Denies CP, SOB, abdominal pain, one sided weakness, numbness tingling, falls, new bowel or bladder issues I have reviewed the patient's medications and allergies, past medical, surgical, social and family history, updating these as appropriate. See Histories section of the electronic medical record for adisplay of this information. Patient Active Problem List Diagnosis Generalized osteoarthritis Degeneration of lumbosacral intervertebral disc Asthma Essential hypertension Concussion with loss of consciousness of 30 minutes or less Acute, but ill-defined, cerebrovascular disease MGUS (monoclonal gammopathy of unknown significance) Sinusitis Multiple myeloma in remission ([facility]) Encounter for antineoplastic chemotherapy History of autologous stem cell transplant ([facility]) Multiple myeloma not having achieved remission ([facility]) Chemotherapy-induced neuropathy ([facility]) Primary osteoarthritis of both knees Primary osteoarthritis of both hands Primary osteoarthritis, left ankle and foot Primary osteoarthritis, left shoulder Greater trochanteric bursitis of right hip Impingement syndrome of both shoulders ILD (interstitial lung disease) ([facility]) Prothrombin gene mutation ([facility]) Asthma, moderate persistent Intermittent asthma with reliever use up to twice per week Nocturnal hypoxemia Family History Problem Relation Name Age of Onset Arthritis Mother No Known Problems Father No Known Problems Sister Diabetes Daughter Medications: Are you taking your medications? yes Current Outpatient Medications Medication Sig Dispense Refill THEOPHYLLINE ER 450 MG PO TB12 Take by mouth. Indications: 2 tablet at bedtime MULTIVITAMINS PO CAPS 1 daily FOLIC ACID [...] MG CAPS Take by mouth. Multiple Vitamins-Minerals ([facility] IMMUNITY SUPPORT) CHEW Take by [...] 1 Tablet by mouth in the morning. Sildenafil Citrate 100 MG Oral Tablet Clobetasol [...] nostril at bedtime. PATIENT INFORMATION: Kris Kamar [address] [place] [address] [place] [address] [employer]: [employer] ORDER: Please start nocturnal oxygen via nasal [...] signed) Ish Caba MD Pulmonary Medicine, [address] [place] [address] [place] [facility] Medical License Number: [id number] 1 Each 0 metFORMIN HCl ER (OSM) 500 MG Oral Tablet Extended Release 24 Hour 1 Tablet. oxyCODONE HCl 5 MG Oral Tablet (Oxy IR) TAKE 1 TAB BY MOUTH EVERY 6 HOURS NEEDED FOR PAIN Acyclovir 800 MG Oral Tablet (Zovirax) TAKE [...] as needed for Nausea. 60 Tablet 5 Pregabalin 25 MG Oral Capsule (Lyrica) 1 tab am and 1 tab pm 60 Capsule 2 Ondansetron HCl 8 MG Oral Tablet (Zofran) TAKE 1 TABLET BY MOUTH EVERY 8 HOURS NEEDED FOR [id number] Tablet 1 B COMPLEX FORMULA 1 PO TABS 1 daily (Patient not taking: Reported on 02/05/2024) Diphenoxylate-Atropine 2.5-0.025 MG Oral Tablet (Lomotil) TAKE 1 TABLET BY MOUTH 4 TIMES A DAY NEEDED FOR DIARRHEA (Patient not taking: Reported on 02/05/2024) 60 Tab 0 Triamcinolone Acetonide 0.1 % External Cream (Aristocort) Apply 2x daily to rashes areas on trunk/arms/legs during winter time mostly. (Patient not taking: Reported on 02/05/2024) 454 g 0 metFORMIN HCl ER 500 MG Oral Tablet Extended Release 24 Hour (Glucophage XR) Take 1 Tablet by mouthin the morning and 1 Tablet before bedtime. (Patient not taking: Reported on 02/05/2024) Current Facility-Administered Medications Medication Dose Route Frequency Provider Last Rate Last Admin Albuterol Sulfate (Proventil) (2.5 MG/3ML) 0.083% inhalation solution 2.5 mg 2.5 mg Nebulizer PRN Ish Caba MD 2.5 mg at 08/29/23 0750 Albuterol Sulfate (Proventil) (5 MG/ML) 0.5% *conc* inhalation solution 2.5 mg 2.5 mg Nebulizer Ish Singletary MD Review of patient's allergies indicates: No Known Allergies Review of Systems: A total number of 10 systems were reviewed pertinent negative and positives not addressed in HPI are listed in the following review. Physical Exam: Constitutional: BP 132/80 (BP Site: Right Arm, BP Position: Sitting, BP Cuff Size: Regular) | Pulse85 | Temp 36.2 C (97.1 F) (Tympanic) | Wt 132 kg (291 lb) | SpO2 93% | BMI 39.47 kg/m | BSA 2.59 m , appearance nourished, healthy, and obese Ears, Nose, Mouth and Throat: mucous membranes moist, no injection and skin normal, eyes normal Cardiovascular: normal S-1 and S-2 and regular rate and rhythm Respiratory: clear to auscultation (CTA) and no rales, ronchi or wheeze Musculoskeletal: no peripheral edema Skin: normal and intact Eyes: extraocular muscles intact (EOMI) NEUROLOGIC EXAMINATION: Mental status: Alert and interactive Oriented to person Speech fluent with no evidence of aphasia Cranial Nerves Normal findings for Cranial Nerves II - XII Sensory: Proprioception intact Coordination: on [id number]-[id number] Gait/Stance: Posture normal. Gait orthopedic tandem steady. Motor: Negative for pronator drift of out stretched arms with eyes closed. Strength: Normal - 5/5 all extremities LABORATORY: Recent labs reviewed Review of prior Studies: No recent imaging available. Impression: Kris Galvin is a 58 year old gentleman with a history of neuropathy . His neurologic examination today reveals no new focal deficit. The history and examination are suggestive of diagnosis/problem list. Testing and Referrals ordered: none ICD-10-CM 1. Chemotherapy-induced neuropathy (HCC) G62.0 T45.1X5A 2. Multiple myeloma not having achieved remission (HCC) C90.00 3. History of autologous stem cell transplant (HCC) Z94.84 Return in 6 months or sooner if needed Continue Cymbalta 60 mg (1 tab) twice daily Continue lyrica 25 mg (1 tab) twice daily will keep low increase with if patients symptoms worsen Follow with PCP and Dr Vásquez as scheduled Watch proprioception for driving no issues at this time Call with questions concerns Medical Decision Making (determined by lowest of 2 of 3 elements): The medical decision making element of the number and complexity of problems addressed included at least 2 or more stable chronic illnesses (level 4). The medical decision making element of risk of complications, morbidity, and mortality of patient management is moderate (level 4) due to prescription drug management (moderate risk). The medical decision making element of the amount and complexity of data reviewed and analyzed included an independent interpretation of a test (level 4 at least). When 2 of 3 reach level 4, then this element is considered extensive (level 5). I personally spent a total of 30 minutes. This time was for a new office or established visit and was on the same calendar day. and This time was the total spent on the evaluation, interpretation, and documentation. Education / Consultation - Topics covered as I spent 20 minutes, which is greater than 50% of this visit, counseling the patient on: Diagnostic Results Prognosis Importance of compliance with chosen treatment options Risk factor reductions Consulted with physician: Carlos Martin DO was available for direct supervision. Copy of note sent to PCP and Referring Provider. Total time of visit: 30 minutes. Octavia Goins PA-C Neurology [facility] [address] [place] [address] 02/05/2024 8:10 AM documented in this encounter Nursing Notes * Rebeca Wheeler LPN - 02/05/2024 8:25 AM EDT Chief Complaint Patient presents with Return Neuro documented in this encounter Plan of Treatment Upcoming Encounters Date Type Department Care Team (Late st Contact Info) Description 02/06/2024 8:30 AM EDT Hem/Onc Treatment Hematology/Oncology Treatment, [address] [place] [phone] Keny[place], Chair [address] Hem On[address] [place] [address] 02/07/2024 8:40 AM EDT Office Visit Rheumatology [address] [place] [address] Darnell Higgins MD [address] [place], [place] [address] 02/12/2024 7:05 AM EDT Laboratory Lab Mobile Phlebotomy [facility] [address] [place], [place] [address] [facility] [address] [place], [place] [address] 02/13/2024 8:30 AM EDT Hem/Onc Treatment Hematology/Oncology Treatment, [place] [address] [place] [phone] Kenyatta, Chair 4 Hem Onc Scenery [address] [facility] [place], [place] [address] 02/19/2024 7:05 AM EDT Laboratory Lab [facility] Phlebotomy [facility] [address] [place], [place] [address] [facility] [address] [facility] [place] [address] 02/20/2024 8:30 AM EDT Hem/Onc Treatment Hematology/Oncology Treatment, [place] [address] [place] [phone] [place], Chair 7 Hem Onc Scenery [address] [facility] [place] [address] 02/26/2024 7:05 AM EDT Laboratory Lab [facility] Phlebotomy [facility] [address] [place] [address] [facility] [address] [place] [address] 02/27/2024 8:30 AM EDT Hem/Onc Treatment Hematology/Oncology Treatment, [place] [address] [place] [phone] Kenyatta, Chair 9 Hem Onc Scenery [address] [facility] [place] [address] 03/04/2024 7:00 AM EDT Laboratory Lab [facility] Phlebotomy [facility] [address] [place], [place] [address] [facility] [address] [place], [place] [address] 03/05/2024 10:45 AM EDT Office Visit Hematology/Oncology [facility] [place] [address] [facility], [place] [phone] Morgan Vásquez MD [address] [facility] [place] [address] 03/05/2024 11:15 AM EDT Hem/Onc Treatment Hematology/Oncology Treatment, [place] [address] [place], [place] [phone] Kenyatta, Chair 1 Hem Onc [facility] [address] [facility] [place] [address] 03/11/2024 7:05 AM EDT Laboratory Lab [facility] Phlebotomy [facility] [address] [place], [place] [address] [facility] [address] [place], [place] [address] 03/18/2024 7:05 AM EST Laboratory Lab Mobile Phlebotomy [facility] [address] [place], [place] [address] [facility] [address] [place] [address] 03/25/2024 7:05 AM EST Laboratory Lab [facility] Phlebotomy [facility] [address] [place] [address] [facility] [address] [place] [address] 04/01/2024 7:00 AM EST Laboratory Lab [facility] Phlebotomy [facility] [address] [place], [place] [address] [facility] [address] [place], [place] [address] 04/08/2024 7:05 AM EST Laboratory Lab Mobile Phlebotomy [facility] [address] [place] [address] [facility] [address] [place] [address] 04/15/2024 7:05 AM EST Laboratory Lab [facility] Phlebotomy [facility] [address] [place] [address] [facility] [address] [place] [address] 04/22/2024 7:05 AM EST Laboratory Lab Mobile Phlebotomy [facility] [address] [place] [address] [facility] [address] [place] [address] 04/29/2024 7:05 AM EST Laboratory Lab [facility] Phlebotomy [facility] [address] [place] [address] [facility] [address] [place] [address] 05/05/2024 7:05 AM EST Laboratory [facility]botomy [facility] [address] [place] [address] [facility] [address] [place] [address] 07/28/2024 7:00 AM EDT Office Visit Neurology [facility] [address] [place] [address] Sandrita Pineda PA-C [address] [place] [address] 09/02/2024 8:20 AM EDT Office Visit Pulmonary Medicine, [facility] [address] [facility] [place] [address] Ish Caba MD [address] [facility] [place] [address] 05/03/2025 7:40 AM EST Office Visit Dermatology [address] [place] [address] Albina Romo PA-C [address] [place] [address] [place] [address] Health Maintenance Due Date Last Done Comments Depression Screening 1976 Albumin/Creatinine Ratio 1982 Cologuard 2009 Fecal Occult Blood Test 2009 Sigmoidoscopy 2009 Colonoscopy 03/03/2023 03/03/2018, 03/03/2018 Colorectal Cancer Screening 03/03/2023 COVID-19 Vaccine ( season) 2024 01/28/2022, 09/26/2021, 01/17/2021, Additional history exists Lipid Panel 11/18/2024 11/19/2019, 07/11, 07/29/2009 GFR 01/28/2025 02/05/2024, 01/11, 01/22/2024, Additional history exists Diabetes Screening 01/28/2027 02/05/2024, 0 01/29/2024, 01/22/2024, Additional history exists [...] this encounter Medical Devices Implanted Type Area Welder Assembler Device Identifier Shelf Expiration Date Model / Serial / Lot Mesh Plug Xlarge [id number] - [id number] Implanted:Qty: 1 on 12/09/2020 by John Zaragoza MD at [facility] Left: Groin CR BARD : DAVOL 05/09/2023 [id number] / / [id number] documented as of this encounter Visit Diagnoses Diagnosis 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 No Care Teams Fire Alarm Repairer Relationship Specialty Start Date End Date Michael Collins MD [address] [place] [address] [place] [address] PCP - General Internal Medicine 03/01/14 documented as of this encounter"
--- OUTSIDE RECORDS SUMMARY | 2024-03-26 16:20 | External Medical Summary ---
Author Name Unknown Address Unknown Organization K01:[facility] - [address] [place] [address] Laboratory Report Ordering Provider Test Date Status KALPESH SERRANO 02/05/2024 08:12:39 Final Observation Date Value Abnormality Reference (Units ) Status IgG 02/05/2024 08:12:39 427 Below low normal 700 -1600 (mg/dL) Final IgA 02/05/2024 08:12:39 11 Below low normal 70- 400 (mg/dL) Final IgM 02/05/2024 08:12:39 6 Below low normal 40- 230 (mg/dL) Final Performing Location [facility] C - [address] [place] [address]
--- OUTSIDE RECORDS SUMMARY | 2024-03-26 16:21 | External Medical Summary | Summary of Care ---
Author Name Unknown Organization [facility] Address [address] [facility] [place] [address] Phone [phone] Care Team Providers Care Warehouse Receiver Name Role Phone Michael Collins MD Primary Care Provi zehra Reason for Visit * Reason Comments Chemotherapy Cytoxan/Darzalex Fas pro * Episode Based Medications (Routine) - Authorized Specialty Diagnoses / Procedures Referred By Contac t Referred To Contact Diagnoses Multiple myeloma not having achieved remission (HCC) Procedures MS DARATUMUMAB, HYALURONIDASE MS INJ, CYCLOPHOSPHAMIDE, NOS Morgan Vásquez MD [address] [facility] [place] [address] Anc Hem/Onc Amena You DEPT CLOSED - 03/26/23 [address] [facility] [place] [address] Referral ID Status Reason Start Date Expiration Date V isits Requested Visits Authorized [id number] Authorized 05/28/2022 05/12/2099 99 99 Encounter Details Date Type Department Care Team (Latest Contact Info) Description 12/12/2023 11:45 AM EDT Hem/Onc Treatment Hematology/Oncology Treatment, [place] [address] [place] [phone] Kenyatta, Chair 4 Hem Onc [address] [place] [address] Multiple myeloma not having achieved remission (HCC)*; Encounter for adjustment and management of vascular access device Allergies No known active allergiesdocumented as of this encounter (statuses as of 01/19/2024) Medications Medication Sig Dispensed Refills Start Date End Date Status THEOPHYLLINE ER 450 MG PO [id number] tablet at bedtime Take by mouth. Indications: [...] at bedtime. PATIENT INFORMATION: Kris Galvin [address] [place] [address] [employer]: [email or web address] ORDER: Please start nocturnal oxygen via nasal [...] signed) Ish Caba MD Pulmonary Medicine, [address] [address] [facility] Medical License Number: [id number] 1 Each 3 Active metFORMIN HCl ER [...] and 1 Tablet before bedtime. 4 Active Pregabalin 25 MG Oral Capsule (Lyrica) 1 tab am and 1 tab pm 60 Capsule 2 4 Active Ondansetron HCl 8 MG Oral Tablet (Zofran)Indicatio ns:Multiple myeloma (HCC) Take 1 Tablet by mouth every 8 hours as needed for Nausea. 90 Tablet 1 4 01/15/20 24 Discontinued Hospital, Clinic, or Other Facility [...] as of this encounter (statuses as of 01/19/2024) Active Problems Problem Noted Date Diagnosed Date [...] as of this encounter (statuses as of 01/19/2024) Resolved Problems Problem Noted Date Diagnosed Date Resolved Date Asthma in remission 08/28/2022 08/29/19 Asthma, mild persistent 08/28/202208/11 Asthma, severe persistent 08/28/2022 Stem cell transplant candidate 08/17/2019 09/02/2019 documented as of this encounter (statuses as of 01/19/2024) Immunizations Name Administration Dates Next Due COVID-19 mRNA, LNP-s, No Pre serve, 2-Dose Series ([employer]) 01/17/2021,08/05/2020,07/08/2020 COVID-19, LNP-s, No Preserve , Bryant-sucrose, [...] Nursing Notes * Brittanie Riggs RN - 12/12/2023 3:31 PM EDT Chair 10 Chemotherapy/Immunotherapy agents: CYTOXAN and DARZALEX Consent for chemotherapy drug treatment complete, dated, and signed? yes, date - Cytoxan 10/17/23; Darzalex 12/29/20 Treatment lab parameters met? Yes Has treatment weight changed > than 10%? No Treatment preauthorized? Yes VITALS Filed Vitals: Urine protein: N/A Patient education completed for treatment? Yes Blood transfusion consent signed and complete? NA Return appointment scheduled? Yes Patient had provider visit today? Yes - Ok to release order and treat per provider PIV established; NSS infusing. Safety and Risk for Injury [...] potential mcclendon while using the heat function. Pt completed infusion without issues. Darzalex Faspro administered per order; pt tolerated well. IVremoved. Goals: Pt will remain free from injury. Possible barriers to meeting goals: ambulation with IV pole Stability of the patient: Moderately stable - low risk of patient condition declining or worsening Summary regarding today's goals: Met: . Pt remained free from injury during treatment today. Discharged in stable condition. documented in this encounter Plan of Treatment Upcoming Encounters Date Type Department Care Team (Late st Contact Info) Description 01/22/2024 7:05 AM EDT Laboratory Lab Mobile Phlebotomy [facility] [address] [place] [address] [facility] [address] [place] [address] 01/23/2024 8:30 AM EDT Hem/Onc Treatment Hematology/[address]cology [address], [address] [phone] Kenyatta, Chair 9 Hem Onc [address] [place] [address] 01/29/2024 7:05 AM EDT Laboratory Lab Mobile Phlebotomy [facility] [address] [place] [address] [facility] [address] [place] [address] 01/30/2024 8:30 AM EDT Hem/Onc Treatment Hematology/Oncology [address], [address] [phone] Kenyatta, Chair 5 Hem Onc Scenery [address] [facility] [place], [place] [address] 02/05/2024 8:40 AM EDT Office Visit Neurology [facility] [address] [facility] [place], [place] [address] Octavia Goins PA-C [address] [facility] [place], [place] [address] 02/06/2024 8:30 AM EDT Hem/Onc Treatment Hematology/Oncology Treatment, [place] [address] [facility], [place] [phone] Kenyatta, Chair 4 Hem Onc [facility] [address] [facility] [place], [place] [address] 02/07/2024 8:00 AM EDT Office Visit [address] [place] [phone] Darnell Higgins MD [email or web address] [place], [place] [address] 02/12/2024 7:05 AM EDT Laboratory Lab Mobile Phlebotomy [facility] [email or web address] [place] [address] [facility] [email or web address] [place], [place] [address] 02/13/2024 8:30 AM EDT Hem/Onc Treatment Hematology/Oncology Treatment, [place] [address] [facility] [place], [place] [phone] Kenyatta, Chair 4 Hem Onc Scenery [address] [facility] [place] [address] 02/19/2024 7:05 AM EDT Laboratory Lab Mobile Phlebotomy [facility] [address] [place], [place] [address] [facility] [address] [place] [address] 02/20/2024 8:30 AM EDT Hem/Onc Treatment Hematology/Oncology Treatment, [place] [address] [place] [phone] Park, Chair 7 Hem Onc Scenery 200 [place] [address] 02/26/2024 7:05 AM EDT Laboratory Lab Mobile Phlebotomy [facility] [address] [email or web address] [address] [facility] [email or web address] [place], [place] [address] 02/27/2024 8:30 AM EDT Hem/Onc Treatment Hematology/Oncology Treatment, [place] [address] [place] [phone] Kenyatta, Chair 9 Hem Onc Scenery [address] [facility] [place] [address] 03/04/2024 7:00 AM EDT Laboratory Lab Mobile Phlebotomy [facility] [email or web address] [place], [place] [address] [facility] [email or web address] [place], [place] [address] 03/05/2024 10:45 AM EDT Office Visit Hematology/Oncology [facility] [address] [facility], [place] [phone] Morgan Vásquez MD [address] [place] [address] 03/05/2024 11:15 AM EDT [facility] 200 [place] [phone] Park, Chair 1 Hem Onc Scenery [address] [facility] [place] [address] 03/11/2024 7:05 AM EDT Laboratory Lab Mobile Phlebotomy [facility] [address] [email or web address] [address] [facility] [address] [facility] [place] [address] 03/18/2024 7:05 AM EST Laboratory Lab Mobile Phlebotomy [facility] [address] [facility] [place] [address] [facility] [address] [facility] [place] [address] 03/25/2024 7:05 AM EST Laboratory Lab Mobile Phlebotomy [facility] [address] [facility] [place] [address] [facility] [address] [facility] [place] [address] 04/01/2024 7:00 AM EST Laboratory Lab Mobile Phlebotomy [facility] [address] [facility] [place] [address] [facility] [address] [facility] [place] [address] 04/08/2024 7:05 AM EST Laboratory Lab Mobile Phlebotomy [facility] [address] [facility] [place] [address] [facility] [address] [facility] [place] [address] 04/15/2024 7:05 AM EST Laboratory Lab Mobile Phlebotomy [facility] [address] [facility] [place] [address] [facility] [address] [facility] [place] [address] 04/22/2024 7:05 AM EST Laboratory Lab Mobile Phlebotomy [facility] [address] [facility] [place] [address] [facility] [address] [facility] [place] [address] 04/29/2024 7:05 AM EST Laboratory Lab Mobile Phlebotomy [facility] [address] [facility] [place] [address] [facility] [address] [facility] [place] [address] 05/05/2024 7:05 AM EST Laboratory Lab Mobile Phlebotomy [facility] [address] [facility] [place], [place] [address] [facility] [address] [place] [address] 09/02/2024 8:20 AM EDT Office Visit Pulmonary Medicine, [facility] [address] [place] [address] Ish Caba MD [address] [facility] [place] [address] 05/03/2025 7:40 AM EST Office Visit Dermatology [address] [place] [address] Albina Romo PA-C [address] [place] [address] [place] [address] Health Maintenance Due Date Last Done Comments Depression Screening 1976 Albumin/Creatinine Ratio 1982 Cologuard 2009 Fecal Occult Blood Test 2009 Sigmoidoscopy 2009 Colonoscopy 03/03/2023 03/03/2018, 03/03/2018 Colorectal Cancer Screening 03/03/2023 COVID-19 Vaccine ( season) 2024 01/28/2022, 09/26/2021, 01/17/2021, Additional history exists Lipid Panel 11/18/2024 11/19/2019, 07/11, 07/29/2009 GFR 01/14/2025 01/15/2024, 12/12, 01/01/2024, Additional history exists Diabetes Screening 01/14/2027 01/15/2024, 0 01/08/2024, 01/01/2024, Additional history exists DTap/Tdap Vaccines (4 - [...] this encounter Medical Devices Implanted Type Area Loan Processor Device Identifier Shelf Expiration Date Model / Serial / Lot Mesh Plug Xlarge [id number] - [id number] Implanted:Qty: 1 on 12/09/2020 by John Zaragoza MD at OR [facility] Left: Groin CR BARD : DAVOL 05/09/2023 [id number] / / [id number] documented as of this encounter Visit Diagnoses Diagnosis Multiple myeloma not having achieved remission (HCC)- Primary Multiple myeloma, without mention of having achieved remission Encounter for adjustment and management of vascular access device documented in this encounter Administered Medications Inactive Administered Medications - up to 3 most recent administrations Medication Order MAR Action Action Date Dose Rate Site Acetaminophen (Tylenol) tab 650 mg 650 mg, Oral, ONCE, On Lilibeth 12/12/23 at 1230, For 1 dose, Maximum of 4 grams (4000 mg) per day. Given 12/12/2023 11:59 AM EDT 650 mg cycloPHOSphamide (Cytoxan) 740 mg in NSS 250 mL infusion 740 mg (rounded from 735 mg = 300 mg/m2 2.45 m2 Treatment Plan BSA from Recorded weight), IV Piggyback, at 517.4 mL/hr Administer over 30 Minutes, Cyclophosphamide doses over 1g should be in 500 mL. May extend infusion to 1 hour if not tolerated., ONCE, 1 dose, On Lilibeth 12/12/23 at 1200 Start Infusion 12/12/2023 12:26 PM EDT 740 mg 517.4 mL/hr Daratumumab-hyaluronida -fihj (Darzalex Faspro) 1800 mg-67700 units/ 15 ml subcut inj 15 mL, Subcutaneous, ONCE, On Lilibeth 12/12/23 at 1300, For 1 dose, Inject subcutanteously into abdomen over 3 to 5 minutes Given 12/12/2023 1:25 PM EDT 15 mL Abdomen Right Lower dexAMETHasone (Decadron) tab 40 mg 40 mg, Oral, ONCE, On Lilibeth 12/12/23 at 1200, For 1 dose Given 12/12/2023 11:59 AM EDT 40 mg diphenhydrAMINE (Benadryl) cap 50 mg 50 mg, Oral, ONCE, On Lilibeth 12/12/23 at 1230, For 1 dose Given 12/12/2023 11:58 AM EDT 50 mg NSS infusion FOR HYDRATION Intravenous, at 500 mL/hr Administer over 2 Hours, ONCE, 1 dose, On Lilibeth 12/12/23 at 1200 Start Infusion 12/12/2023 11:47 AM EDT 1,000 mL 500 mL/hr NSS infusion FOR HYDRATION Intravenous, at 50 mL/hr Administer over 10 Hours, CONTINUOUS, Starting on Lilibeth 12/12/23 at 1200, Until Lilibeth 12/12/23 at 1951 Start Infusion 12/12/2023 11:46 AM EDT 500 mL 50 mL/hr ondansetron (Zofran) tab 8 mg 8 mg, Oral, ONCE, On Lilibeth 12/12/23 at 1200, For 1 dose Given 12/12/2023 12:00 PM EDT 8 mg documented in this encounter [...] Power of Attor coco? No Care Teams Warehouse Receiver Relationship Specialty Start Date End Date Michael Collins MD [address] [place] [address] [place] [address] PCP - General Internal Medicine 03/01/14 documented as of this encounter
--- OUTSIDE RECORDS SUMMARY | 2024-03-26 16:21 | External Medical Summary | Summary of Care ---
Author Name Unknown Organization [facility] [address] [facility] [address] Phone [phone] Care Team Providers Care Hired Hand Name Role Phone Michael Collins MD Primary Care Provi zehra Reason for Visit * Reason Comments Chemotherapy Cytoxan/Darzalex Fas pro * Episode Based Medications (Routine) - Authorized Specialty Diagnoses / Procedures Referred By Contac t Referred To Contact Diagnoses Multiple myeloma not having achieved remission (HCC) Procedures WA DARATUMUMAB, HYALURONIDASE WA INJ, CYCLOPHOSPHAMIDE, NOS Morgan Vásquez MD [address] [place] [address] Anc Hem/Onc Amena You DEPT CLOSED - 03/26/23 200 [facility] [place] [address] Referral ID Status Reason Start Date Expiration Date V isits Requested Visits Authorized [id number] Authorized 05/28/2022 05/12/2099 99 99 Encounter Details Date Type Department Care Team (Latest Contact Info) Description 01/09/2024 8:30 AM EDT Hem/Onc Treatment Hematology/Oncolog y Treatment, [place] [address] [place] [address] Kenyatta, Chair 9 Hem Onc Scenery 200 Amena Osman [place] [address] Multiple myeloma not having achieved remission (HCC)*; Encounter for antineoplastic chemotherapy Allergies No known active allergiesdocumented as of this encounter (statuses as of 01/27/2024) Medications Medication Sig Dispensed Refills Start Date End Date Status THEOPHYLLINE ER 450 MG PO [id number]:2 tablet at bedtime Take by mouth. Indications: [...] nostril at bedtime. PATIENT INFORMATION: Kris Galvin [address] [place] [address] [email or web address]: [email or web address] ORDER: Please start nocturnal oxygen via nasal [...] (electronically signed) Ish Caba MD Pulmonary Medicine, [address] [place] [address] [place] [facility] Medical License Number: [id number] 1 Each 3 Active metFORMIN HCl ER [...] as of this encounter (statuses as of 01/27/2024) Active Problems Problem Noted Date Diagnosed Date [...] as of this encounter (statuses as of 01/27/2024) Resolved Problems Problem Noted Date Diagnosed Date Resolved Date Asthma in remission 08/28/2022 08/29/19 Asthma, mild persistent 08/28/202208/11 Asthma, severe persistent 08/28/2022 Stem cell transplant candidate 08/17/2019 09/02/2019 documented as of this encounter (statuses as of 01/27/2024) Immunizations Name Administration Dates Next Due COVID-19 mRNA, LNP-s, No Pre serve, 2-Dose Series ([employer]) 01/17/2021,08/05/2020,07/08/2020 COVID-19, LNP-s, No Preserve , Bryant-sucrose, Ages 12+ ([employer]) 09/26/2021 DTaP Dipth/Tet/Acell Pertussis ([employer]), Peds 02/23/2021,11/11/2020,09/09/2020 [...] Sign Reading Time Taken Comments Blood Pressure 122/84 01/09/2024 8:26 AM EDT Pulse 86 01/09/2024 8:26 AM EDT Temperature 36.4 C (97.6 F) 01/09/2024 8:26 AM ED T Respiratory Rate 16 01/09/2024 8:26 AM EDT Oxygen Saturation 94% 01/09/2024 8:26 AM EDT Inhaled Oxygen Concentration - - Weight 132.3 kg (291 lb 9.6 oz) 01/09/2024 8:26 AM EDT Height - - Body Mass Index 39.55 10/11/2023 9:26 AM EDT documented in this [...] this encounter Nursing Notes * Abril Ayers, RN - 01/09/2024 12:49 PM EDT Patient completed infusion with no issues. PIV removed intact. Goals: Patient will remain free from injury. Possible barriers to meeting goals: Ambulating with IV pole Stability of the patient: Moderately stable - low risk of patient condition declining or worsening Summary regarding today's goals: Met: Patient remained free from harm. Pt discharged in stable condition. * Brittanie Riggs RN - 01/09/2024 9:02 AM EDT PRE-TREATMENT ASSESSMENT: NEURO: fatigue:pt reports fatigue has progressed with each cycle. Pt has trouble sleeping for 2 days following decadron administration, then reports persistent fatigue. CV/RESP: denies symptoms GI/: denies symptoms OTHER: denies any additional symptoms PAIN: 3-4 pain location : R knee, ongoing, stable PIV established; NSS infusing. Safety and Risk for Injury Patient will remain free from injury. Ensure appropriate safety devices are available. Provide and maintain safe environment. * Brittanie Riggs RN - 01/09/2024 8:30 AM EDT Chair 12 Chemotherapy/Immunotherapy agents: CYTOXAN and DARZALEX Consent for chemotherapy drug treatment complete, dated, and signed? yes, date - 10/17/23 Treatment lab parameters met? Yes Plt 97; reviewed with Dr. Vásquez and yash to proceed with treatment as ordered Has treatment weight changed > than 10%? No Treatment preauthorized? Yes VITALS Filed Vitals: 01/09/24 0826 BP: 122/84 Pulse: 86 Resp: 16 Temp: 36.4 C (97.6 F) TempSrc: Tympanic SpO2: 94% Weight: 132.3 kg (291 lb 9.6 oz) Urine protein: N/A Patient [...] Care Team (Late st Contact Info) Description 01/29/2024 7:05 AM EDT Laboratory Lab Mobile Phlebotomy [facility] [address] [place] [address] Mvmg, Gml Mobile Home Draw [address] [place] [address] 01/30/2024 8:30 AM EDT Hem/Onc Treatment Hematology/Oncology Treatment, [address] [place] [phone] Kenyatta, Chair 5 Hem On[address] [place] [address] 02/05/2024 8:40 AM EDT Office Visit Neurology [facility] [place] 200 [facility] [place] [address] Octavia Goins PA-C 200 [facility] [place] [address] 02/06/2024 8:30 AM EDT [facility] 200 [facility] [place] [phone] Kenyatta, Chair 4 Hem Onc [facility] [address] [place] [address] [place] [address] 02/07/2024 8:00 AM EDT Office Visit Rheumatology [address] [place] [address] Darnell Higgins MD [address] [employer] [facility] [place] [address] 02/12/2024 7:05 AM EDT Laboratory Lab Mobile Phlebotomy [facility] [address] [place] [address] Mvmg, Gml Mobile Home Draw 2520 [place] [address] 02/13/2024 8:30 AM EDT [facility] 200 [place] [phone] Kenyatta, Chair 4 Hem Onc Scenery 200 [place] [address] 02/19/2024 7:05 AM EDT Laboratory Lab Mobile Phlebotomy [facility] [address] [place] [address] Mvmg, Gml Mobile Home Draw 2520 [place] [address] 02/20/2024 8:30 AM EDT Hem[facility] 200 [place] [phone] Kenyatta, Chair 7 Hem Onc Scenery 200 [place] [address] 02/26/2024 7:05 AM EDT Laboratory Lab Mobile Phlebotomy [facility] [address] [place] [address] Mvmg, Gml Mobile Home Draw 2520 [place] [address] 02/27/2024 8:30 AM EDT Hem/Onc Treatment Hematology/Oncology Treatment, [place] 200 [place] [phone] Kenyatta, Chair 9 Hem Onc Scenery 200 [place] [address] 03/04/2024 7:00 AM EDT Laboratory Lab Mobile Phlebotomy [facility] 2520 [facility], [place] [address] Mvmg, Gml Mobile Home Draw [address] [place], [place] [address] 03/05/2024 10:45 AM EDT Office Visit Hematology/Oncology [facility] [place] [address] [place], [place] [phone] Morgan Vásquez MD 200 [facility] [place], [place] [address] 03/05/2024 11:15 AM EDT Hem/Onc Treatment Hematology/Oncology Treatment, [place] [address] [place] [phone] Kenyatta, Chair 1 Hem Onc Scene 200 [facility] [place] [address] 03/11/2024 7:05 AM EDT Laboratory Lab Mobile Phlebotomy [facility] [address] [place], [place] [address] Mvmg, Gml Mobile Home Draw [address] [place] [address] 03/18/2024 7:05 AM EST Laboratory Lab Mobile Phlebotomy [facility] [address] [place], [place] [address] Mvmg, Gml Mobile Home Draw [address] [place] [address] 03/25/2024 7:05 AM EST Laboratory Lab Mobile Phlebotomy [facility] [address] [place] [address] Mvmg, Gml Mobile Home Draw [address] [place] [address] 04/01/2024 7:00 AM EST Laboratory Lab Mobile Phlebotomy [facility] [address] [place], [place] [address] Mvmg, Gml Mobile Home Draw [address] [place] [address] 04/08/2024 7:05 AM EST Laboratory Lab Mobile Phlebotomy [facility] [address] [place] [address] Mvmg, Gml Mobile Home Draw [address] [place] [address] 04/15/2024 7:05 AM EST Laboratory Lab Mobile Phlebotomy [facility] [address] [place] [address] Mvmg, Gml Mobile Home Draw [address] [place] [address] 04/22/2024 7:05 AM EST Laboratory Lab Mobile Phlebotomy [facility] [address] [place] [address] Mvmg, Gml Mobile Home Draw [address] [place] [address] 04/29/2024 7:05 AM EST Laboratory Lab Mobile Phlebotomy [facility] [address] [place] [address] Mvmg, Gml Mobile Home Draw [address] [place] [address] 05/05/2024 7:05 AM EST Laboratory Lab Mobile Phlebotomy [facility] [address] [facility] [place] [address] Mvmg, Gml Mobile Home Draw [address] [employer] [facility] [place] [address] 09/02/2024 8:20 AM EDT Office Visit Pulmonary Medicine, [facility] 132 [facility] [place] [address] Ish Caba MD [address] [facility] [place] [address] 05/03/2025 7:40 AM EST Office Visit Dermatology [address] [place] [phone] Albina Romo PA-C [address] [place] [address] [place] [address] Health Maintenance Due Date Last Done Comments Depression Screening 1976 Albumin/Creatinine Ratio 1982 Cologuard 2009 Fecal Occult Blood Test 2009 Sigmoidoscopy 2009 Colonoscopy 03/03/2023 03/03/2018, 03/03/2018 Colorectal Cancer Screening 03/03/2023 COVID-19 Vaccine ( season) 2024 01/28/2022, 09/26/2021, 01/17/2021, Additional history exists Lipid Panel 11/18/2024 11/19/2019, 07/11, 07/29/2009 GFR 01/21/2025 01/22/2024, 08/2023, 01/08/2024, Additional history exists Diabetes Screening 01/21/2027 01/22/2024, 0 01/15/2024, 01/08/2024, Additional history exists DTap/Tdap Vaccines (4 - [...] this encounter Medical Devices Implanted Type Area Brand Designer Device Identifier Shelf Expiration Date Model / Serial / Lot Mesh Plug Xlarge [id number] - [id number] Implanted:Qty: 1 on 12/09/2020 by John Zaragoza MD at [facility] Left: Groin CR BARD : DAVOL 05/09/2023 [id number] / / [id number] documented as of this encounter Visit Diagnoses [...] mg 650 mg, Oral, ONCE, On Lilibeth 01/09/24 at 0945, For 1 dose, Maximum of 4 grams (4000 mg) per day. Given 01/09/2024 8:51 AM EDT 650 mg cycloPHOSphamide (Cytoxan) 740 mg in NSS 250 mL infusion 740 mg (rounded from 735 mg = 300 mg/m2 2.45 m2 Treatment Plan BSA from Recorded weight), IV Piggyback, at 517.4 mL/hr Administer over 30 Minutes, Cyclophosphamide doses over 1g should be in 500 mL. May extend infusion to 1 hour if not tolerated., ONCE, 1 dose, On Lilibeth 01/09/24 at 0915 Start Infusion 01/09/2024 10:07 AM EDT 740 mg 517.4 mL/hr Daratum[facility] (Darzalex Faspro) 1800 mg-01564 units/ 15 ml subcut inj 15 mL, Subcutaneous, ONCE, On Lilibeth 01/09/24 at 1015, For 1 dose, Inject subcutanteously into abdomen over 3 to 5 minutes Given 01/09/2024 10:16 AM EDT 15 mL Abdomen Right Lower dexAMETHasone (Decadron) tab 40 mg 40 mg, Oral, ONCE, On Lilibeth 01/09/24 at 0915, For 1 dose Given 01/09/2024 8:51 AM EDT 40 mg diphenhydrAMINE (Benadryl) cap 50 mg 50 mg, Oral, ONCE, On Lilibeth 01/09/24 at 0945, For 1 dose Given 01/09/2024 8:51 AM EDT 50 mg NSS infusion FOR HYDRATION Intravenous, at 500 mL/hr Administer over 2 Hours, ONCE, 1 dose, On Lilibeth 01/09/24 at 0915 Start Infusion 01/09/2024 8:50 AM EDT 1,000 mL 500 mL/hr NSS infusion FOR HYDRATION Intravenous, at 50 mL/hr Administer over 10 Hours, CONTINUOUS, Starting on Lilibeth 01/09/24 at 0915, Until Lilibeth 01/09/24 at 1654 Start Infusion 01/09/2024 8:47 AM EDT 500 mL 50 mL/hr ondansetron (Zofran) tab 8 mg 8 mg, Oral, ONCE, On Lilibeth 01/09/24 at 0915, For 1 dose Given 01/09/2024 8:51 AM EDT 8 mg documented in this [...] Power of Attor coco? No Care Teams Hired Hand Relationship Specialty Start Date End Date Michael Collins MD [address] [place] [address] [place] [address] PCP - General Internal Medicine 03/01/14 documented as of this encounter
--- OUTSIDE RECORDS SUMMARY | 2024-03-26 16:21 | External Medical Summary ---
Author Name Unknown Address Unknown Organization K01:LABORATORY [facility] [place] - [address] [facility] [address] [facility] [address] Laboratory Report Ordering Provider Test Date Status KALPESH SERRANO 01/29/2024 08:26:00 Final Observation Date Value Abnormality Reference (Units ) Status WBC, Total 01/29/2024 08:26:00 3.81 Below low normal 4.00-10.80 (K/uL) Final RBC 01/29/2024 08:26:00 3.99 4.50-5.25 (M/uL) Final Hemoglobin 01/29/2024 08:26:00 14.2 14.0-16.8 (g/dL) Final HCT 01/29/2024 08:26:00 42.1 40.0-48.4 (%) Final MCV 01/29/2024 08:26:00 105.5 82.0-99.5 (fL) Final MCH 01/29/2024 08:26:00 35.6 27.0-34.0 (pg) Final MCHC 01/29/2024 08:26:00 33.7 32.0-36.0 (g/dL) Final RDW 01/29/2024 08:26:00 14.7 11.5-15.5 (%) Final Platelets 01/29/2024 08:26:00 100 Below low normal 140-400 (K/uL) Final MPV 01/29/2024 08:26:00 11.1 6.6-11.1 (fL) Final Nucleated erythrocytes/100 leukocytes [Ratio] in Blood by Automated count 01/29/2024 08:26:00 0 <=0 (/100 WBCs) Final Performing Location LABORATORY C - [address] [place] [address]
--- OUTSIDE RECORDS SUMMARY | 2024-03-26 16:21 | External Medical Summary ---
Author Name Unknown Address Unknown Organization K01:[place] [address] [place] [address] Laboratory Report Ordering Provider Test Date Status KALPESH SERRANO 01/22/2024 07:56:00 Final Observation Date Value Abnormality Reference (Units ) Status BUN 01/22/2024 07:56:00 21 Above high normal 6-20 (mg/dL) Final Creatinine 01/22/2024 07:56:00 1.0 0.6-1.2 (mg/dL) Final Glomerular filtration rate/1.73 sq M.predicted [Volume Rate/Area] in Serum, Plasma or Blood by Creatinine-based formula (CKD-EPI) 01/22/2024 07:56:00 84 >=60 (mL/min) Final eGFR is calculated based on the CKD-EPI 2020 equation. Sodium 01/22/2024 07:56:00 140 135-146 (m mol/L) Final Potassium 01/22/2024 07:56:00 3.9 3.5-5.1 (m mol/L) Final Cl 01/22/2024 07:56:00 100 98-107 (mm ol/L) Final CO2 01/22/2024 07:56:00 29 22-32 (mmo l/L) Final Anion gap 01/22/2024 07:56:00 11 7-15 (mmol /L) Final Glucose 01/22/2024 07:56:00 94 70-120 (mg /dL) Final Albumin 01/22/2024 07:56:00 4.4 3.8-5.0 (g /dL) Final AST (Aspartate aminotransferase) 01/22/2024 07:56:00 20 10-50 (U/L) Fin al Alk Phos 01/22/2024 07:56:00 108 35-130 (U/ L) Final Bilirubin, Total 01/22/2024 07:56:00 0.3 <=1 .2 (mg/dL) Final Calcium 01/22/2024 07:56:00 9.2 8.4-10.2 ( mg/dL) Final Protein 01/22/2024 07:56:00 5.9 Below low normal 6.0 -8.3 (g/dL) Final ALT (Alanine aminotransferase) 01/22/2024 07:56:00 18 10-50 (U/L) Regis figueroa Performing Location [facility] [place] [facility] [address]. [facility] [address]
--- OUTSIDE RECORDS SUMMARY | 2024-03-26 16:21 | External Medical Summary | Summary of Care ---
Author Name Unknown Organization [facility] Address [address] [facility] [place] [address] Phone [phone] Care Team Providers Care Turning Sander Operator Name Role Phone Michael Collins MD Primary Care Provi zehra Reason for Visit * Reason Comments Chemotherapy C40 D22 Cytoxan * Episode Based Medications (Routine) - Authorized Specialty Diagnoses / Procedures Referred By Contac t Referred To Contact Diagnoses Multiple myeloma not having achieved remission (HCC) Procedures [place] DARATUMUMAB, HYALURONIDASE HI INJ, CYCLOPHOSPHAMIDE, NOS Morgan Vásquez MD [address] [place] [address] Anc Hem/Onc Amena You DEPT CLOSED - 03/26/23 200 [facility] [place] [address] Referral ID Status Reason Start Date Expiration Date V isits Requested Visits Authorized [id number] Authorized 05/28/2022 05/12/2099 99 99 Encounter Details Date Type Department Care Team (Latest Contact Info) Description 01/30/2024 8:30 AM EDT Hem/Onc Treatment Hematology/Oncolog y Treatment, [place] [address] [place] [phone] Kenyatta, Chair 5 Hem Onc Scenery 200 Amena Osman [place] [address] Multiple myeloma not having achieved remission (HCC)*; Encounter for antineoplastic chemotherapy Allergies No known active allergiesdocumented as of this encounter (statuses as of 01/30/2024) Medications Medication Sig Dispensed Refills Start Date End Date Status THEOPHYLLINE ER 450 MG PO NR91Mbaehieidzs:2 tablet at bedtime Take by mouth. Indications: [...] CAPS Take by mouth. Active Multiple Vitamins-Minerals ([facility]) CHEW Take by [...] nostril at bedtime. PATIENT INFORMATION: Kris Galvin [address] [place] [address] [employer]: [employer]ed[employer]ULSE ORDER: Please start nocturnal oxygen via nasal [...] signed) Ish Caba MD Pulmonary Medicine, [address] [place] [address] [place] [facility] Medical License Number: [id number] 1 Each 09/21/2022 Active metFORMIN HCl ER [...] mRNA, LNP-s, No Pre serve, 2-Dose Series ([employer]) 01/17/2021,08/05/2020,07/08/2020 COVID-19, LNP-s, No Preserve , Bryant-sucrose, Ages 12+ ([employer]) 09/26/2021 DTaP Dipth/Tet/Acell Pertussis ([employer]), Peds 02/23/2021,11/11/2020,09/09/2020 [...] Description 02/05/2024 8:10 AM EDT Laboratory Laboratory [facility] [place] [address] [place] [phone] Kenyatta, Lab Scenery [address] [place] [address] 02/05/2024 8:40 AM EDT [facility] [address] [place] [address] Octavia Goins PA-C [address] [place] [address] 02/06/2024 8:30 AM EDT Hem/Onc Treatment Hematology/Oncology Treatment, [place] 200 [facility] [place] [phone] Kenyatta, Chair 4 Hem Onc Scenery 200 [facility] [place] [address] 02/07/2024 8:00 AM EDT Office Visit Rheumatology [address] [place] [phone] Darnell Higgins MD [address] [place] [address] 02/12/2024 7:05 AM EDT Laboratory Lab Mobile Phlebotomy [facility] [address] [place] [address] Mvmg, Gml Mobile Home Draw [address] [employer] [place] [address] 02/13/2024 8:30 AM EDT Hem/Onc Treatment Hematology/Oncology Treatment, [place] 200 [facility] [place] [phone] Kenyatta, Chair 4 Hem Onc Scenery [address] [place] [address] 02/19/2024 7:05 AM EDT Laboratory Lab Mobile Phlebotomy [facility] [address] [place] [address] Mvmg, Gml Mobile Home Draw [address] [employer] [place] [address] 02/20/2024 8:30 AM EDT [facility] 200 [place] [phone] [place], Chair 7 Hem Onc Scenery 200 [facility] [place] [address] 02/26/2024 7:05 AM EDT Laboratory Lab Mobile Phlebotomy [facility] [address] [employer] ([employer] [place] [address] Mvmg, Gml Mobile Home Draw [address] [employer] ([employer]) [place] [address] 02/27/2024 8:30 AM EDT Hem/Onc Treatment Hematology/Oncology Treatment, [place] 200 [place] [address] Kenyatta, Chair 9 Hem Onc Scenery 200 [facility] [place] [address] 03/04/2024 7:00 AM EDT Laboratory Lab Mobile Phlebotomy [facility] [address] [employer] ([employer] [place] [address] Mvmg, Gml Mobile Home Draw [address] [employer] ([employer] [place] [address] 03/05/2024 10:45 AM EDT Office Visit Hematology/Oncology [facility] [place] 200 [place] [phone] Morgan Vásquez MD 200 [place] [address] 03/05/2024 11:15 AM EDT Hem/Onc Treatment Hematology/Oncology Treatment, [place] 200 [place] [address] Kenyatta, Chair 1 Hem Onc Scenery 200 [facility] [place] [address] 03/11/2024 7:05 AM EDT Laboratory Lab Mobile Phlebotomy [facility] [address] [place] [address] Mvmg, Gml Mobile Home Draw [address] [place] [address] 03/18/2024 7:05 AM EST Laboratory Lab Mobile Phlebotomy [facility] [address] [place] [address] Mvmg, Gml Mobile Home Draw [address] [place] [address] 03/25/2024 7:05 AM EST Laboratory Lab Mobile Phlebotomy [facility] [address] [place] [address] Mvmg, Gml Mobile Home Draw [address] [place] [address] 04/01/2024 7:00 AM EST Laboratory Lab Mobile Phlebotomy [facility] [address] [place] [address] Mvmg, Gml Mobile Home Draw [address] [place] [address] 04/08/2024 7:05 AM EST Laboratory Lab Mobile Phlebotomy [facility] [address] [place] [address] Mvmg, Gml Mobile Home Draw [address] [place] [address] 04/15/2024 7:05 AM EST Laboratory Lab Mobile Phlebotomy [facility] [address] [place] [address] Mvmg, Gml Mobile Home Draw 25[address] [place] [address] 04/22/2024 7:05 AM EST Laboratory Lab Mobile Phlebotomy [facility] [address] [place] [address] Mvmg, Gml Mobile Home Draw [address] [place] [address] 04/29/2024 7:05 AM EST Laboratory Lab Mobile Phlebotomy [facility] [address] [place] [address] Mvmg, Gml Mobile Home Draw 2520 [facility] [place], [place] [address] 05/05/2024 7:05 AM EST Laboratory Lab Mobile Phlebotomy [facility] [address] [facility] [place] [address] Mvmg, Gml Mobile Home Draw 25[address] [facility] [place] [address] 09/02/2024 8:20 AM EDT Office Visit Pulmonary Medicine, [facility] 132 [facility] [place] [address] Ish Caba MD [address] [facility] [place] [address] 05/03/2025 7:40 AM EST Office Visit Dermatology [address] [place] [address] Albina Romo PA-C [address] [place] [address] [place] [address] Health Maintenance Due Date Last Done Comments [...] this encounter Medical Devices Implanted Type Area Digital Marketing Assistant Device Identifier Shelf Expiration Date Model / Serial / Lot Mesh Plug Xlarge [id number] - [id number] Implanted:Qty: 1 on 12/09/2020 by John Zaragoza MD at OR [facility] Left: Groin CR BARD : DAVOL 05/09/2023 [id number] / / [id number] documented as of this encounter Visit Diagnoses [...] Power of Attor coco? No Care Teams Turning Sander Operator Relationship Specialty Start Date End Date Michael Collins MD [address] [place] [address] [place] [address] PCP - General Internal Medicine 03/01/14 documented as of this encounter
--- OUTSIDE RECORDS SUMMARY | 2024-03-26 16:21 | External Medical Summary ---
Author Name Unknown Address Unknown Organization K01:[place] [facility] 100 [facility] [place] [address] Laboratory Report Ordering Provider Test Date Status KALPESH SERRANO 01/22/2024 07:56:00 Final Observation Date Value Abnormality Reference (Units ) Status SYNC LEUKOCYTES IN BLOOD BY AUTOMATED COUNT 01/22/2024 07:56:00 3.80 Below low normal 4.00-10.80 (K/uL) Final Segs 01/22/2024 07:56:00 66.5 40.0-75.0 (%) Final Lymphs % 01/22/2024 07:56:00 15.3 Below low normal 18.0-42.0 (%) Final Monos 01/22/2024 07:56:00 15.8 Above high normal 1.0-11.0 (%) Final Eosinophils 01/22/2024 07:56:00 1.8 0.0-6.0 (%) Final Basos 01/22/2024 07:56:00 0.3 0.0-2.0 (%) Final Immature Granulocyte, Percent 01/22/2024 07:56:00 0.3 0.0-2.0 (%) Final Absolute Segs 01/22/2024 07:56:00 2.53 1.80-7.70 (K/uL) Final Lymphs, absolute 01/22/2024 07:56:00 0.58 Below low normal 1.00-4.80 (K/ul) Final Monos, Abs 01/22/2024 07:56:00 0.60 0.00-1.10 (K/uL) Final Eos, Abs 01/22/2024 07:56:00 0.07 0.00-0.70 (K/uL) Final Basos, Abs 01/22/2024 07:56:00 0.01 0.00-0.20 (K/uL) Final Immature Granulocytes, Number 01/22/2024 07:56:00 0.01 0.00-0.20 (K/uL) Final Performing Location [place] [facility] [address] [address]
--- OUTSIDE RECORDS SUMMARY | 2024-03-26 16:21 | External Medical Summary | Summary of Care ---
Author Name Unknown Organization [facility] Address [address] [facility] [place] [address] Phone [phone] Care Team Providers Care Associate Financial Analyst Name Role Phone Michael Collins MD Primary Care Provi zehra Reason for Visit * Reason Comments Chemotherapy [id number] Cytoxan * Episode Based Medications (Routine) - Authorized Specialty Diagnoses / Procedures Referred By Contac t Referred To Contact Diagnoses Multiple myeloma not having achieved remission (HCC) Procedures KS DARATUMUMAB, HYALURONIDASE KS INJ, CYCLOPHOSPHAMIDE, NOS Morgan Vásquez MD [address] [place] [address] Anc Hem/Onc Amena You DEPT CLOSED - 03/26/23 200 [facility] [place] [address] Referral ID Status Reason Start Date Expiration Date V isits Requested Visits Authorized [id number] Authorized 05/28/2022 05/12/2099 99 99 Encounter Details Date Type Department Care Team (Latest Contact Info) Description 01/23/2024 8:30 AM EDT Hem/Onc Treatment Hematology/Oncolog y Treatment, [place] [address] [place] [address] Kenyatta, Chair 9 Hem Onc Scenery [address]man [place] [address] Multiple myeloma not having achieved remission (HCC)*; Encounter for antineoplastic chemotherapy Allergies No known active allergiesdocumented as of this encounter (statuses as of 01/23/2024) Medications Medication Sig Dispensed Refills Start Date End Date Status THEOPHYLLINE ER 450 MG PO [id number]:2 tablet at bedtime Take by mouth. Indications: [...] nostril at bedtime. PATIENT INFORMATION: Kris Galvin [address] [place] [address] [employer]: [employer] ORDER: Please start nocturnal oxygen via nasal [...] signed) Ish Caba MD Pulmonary Medicine, [address] [place] [address] [place] [facility] Medical License Number: [id number] 1 Each 09/21/2022 Active metFORMIN HCl ER [...] as of this encounter (statuses as of 01/23/2024) Active Problems Problem Noted Date Diagnosed Date [...] as of this encounter (statuses as of 01/23/2024) Resolved Problems Problem Noted Date Diagnosed Date Resolved Date Asthma in remission 08/28/2022 08/29/19 Asthma, mild persistent 08/28/2022 0412/2022 Asthma, severe persistent 08/28/2022 Stem cell transplant candidate 08/17/2019 09/02/2019 documented as of this encounter (statuses as of 01/23/2024) Immunizations Name Administration Dates Next Due COVID-19 mRNA, LNP-s, No Pre serve, 2-Dose Series ([employer]) 01/17/2021,08/05/2020,07/08/2020 COVID-19, LNP-s, No Preserve , Bryant-sucrose, Ages 12+ ([employer]) 09/26/2021 DTaP Dipth/Tet/Acell Pertussis ([employer]), Peds 02/23/2021,11/11/2020,09/09/2020 [...] Nursing Notes * Rosario Gaitan RN - 01/23/2024 12:16 PM EDT Goals: [...] Mobile Phlebotomy [facility] [address] [place] [address] [facility], [facility] Draw [address] [place] [address] 01/30/2024 8:30 AM EDT Hem/Onc Treatment Hematology/Oncology Treatment, [place] [facility] [phone] Kenyatta, Chair 5 Hem Onc [facility] [address] [place] [address] [place] [address] 02/05/2024 8:40 AM EDT Office Visit Neurology [facility] 200 [facility] [place] [address] Octavia Goins PA-C 200 [facility] [place] [address] 02/06/2024 8:30 AM EDT [facility] [address] [facility] [phone] Park, Chair 4 Hem Onc [facility] [address] [place] [address] [place] [address] 02/07/2024 8:00 AM EDT Office Visit Rheumatology [address] [place] [phone] Darnell Higgins MD [address] [place] [address] 02/12/2024 7:05 AM EDT Laboratory Lab Mobile Phlebotomy [facility] [address] [place] [address] [address] M[facility]mg, Gml [facility] Draw [address] [place] [address] [address] 02/13/2024 8:30 AM EDT Hem/Onc Treatment Hematology/Oncology Treatment, [place] 200 [place] [phone] Park, Chair 4 Hem Onc Scenery 200 [facility] [place] [address] 02/19/2024 7:05 AM EDT Laboratory Lab Mobile Phlebotomy [facility] [address] [place] [address] Mvmg, Gml Mobile Home Draw [address] [place] [address] 02/20/2024 8:30 AM EDT Hem/Onc Treatment Hematology/Oncology Treatment, [place] 200 [place] [phone] Kenyatta, Chair 7 Hem Onc Scenery 200 [facility] [place] [address] 02/26/2024 7:05 AM EDT Laboratory Lab Mobile Phlebotomy [facility] [address] [place] [address] Mvmg, Gml [facility] Draw [address] [place], [place] [address] 02/27/2024 8:30 AM EDT Hem/Onc Treatment Hematology/Oncology Treatment, [place] 200 [place] [phone] Kenyatta, Chair 9 Hem Onc Scenery 200 [facility] [place] [address] 03/04/2024 7:00 AM EDT Laboratory Lab Mobile Phlebotomy [facility] [address] [place] [address] Mvmg, Gml [facility] Draw [address] [place] [address] 03/05/2024 10:45 AM EDT Office Visit Hematology/Oncology [facility] [place] 200 [place] [phone] Morgan Vásquez MD 200 [facility] [address] 03/05/2024 11:15 AM EDT Hem/Onc Treatment Hematology/Oncology Treatment, [place] [address] [place] [phone] Park, Chair 1 Hem Onc Scenery [address] [place] [place] [place] [address] 03/11/2024 7:05 AM EDT Laboratory Lab Mobile Phlebotomy [facility] 2520 [facility] [place], [place] [address] Mvmg, Gml Mobile Home Draw 25[address] [facility] [place], [place] [address] 03/18/2024 7:05 AM EST Laboratory Lab Mobile Phlebotomy [facility] [address] [facility] [place], [place] [address] Mvmg, Gml Mobile Home Draw 2520 [facility] [place], [place] [address] 03/25/2024 7:05 AM EST Laboratory Lab Mobile Phlebotomy [facility] [address] [facility] [place], [place] [address] Mvmg, Gml Mobile Home Draw 2520 [facility] [place], [place] [address] 04/01/2024 7:00 AM EST Laboratory Lab Mobile Phlebotomy [facility] [address] [facility] [place], [place] [address] Mvmg, Gml Mobile Home Draw [address] [place] [address] 04/08/2024 7:05 AM EST Laboratory Lab Mobile Phlebotomy [facility] [address] [facility] [place] [address] Mvmg, Gml Mobile [facility] Draw 25[address] [facility] [place], [place] [address] 04/15/2024 7:05 AM EST Laboratory Lab Mobile Phlebotomy [facility] [address] [facility] [place], [place] [address] Mvmg, Gml Mobile Home Draw [address] [place] [address] 04/22/2024 7:05 AM EST Laboratory Lab Mobile Phlebotomy [facility] [address] [address] Mvmg, Gml Mobile Home Draw 25[address] [facility] [place] [address] 04/29/2024 7:05 AM EST Laboratory Lab Mobile Phlebotomy [facility] [address] [address] Mvmg, Gml Mobile Home Draw 25[address] [facility] [place] [address] 05/05/2024 7:05 AM EST Laboratory Lab Mobile Phlebotomy [facility] [address] [place] [address] Mvmg, Gml Mobile Home Draw 2520 [facility] [place], [place] [address] 09/02/2024 8:20 AM EDT Office Visit Pulmonary Medicine, [facility] [address] [facility] [place] [address] Ish Caba MD [address] [facility] [place] [address] 05/03/2025 7:40 AM EST Office Visit Dermatology [address] [place] [address] Albina Romo PA-C [address] [place] [address] [place] [address] Health Maintenance Due Date Last Done Comments [...] this encounter Medical Devices Implanted Type Area Cartographic Designer Device Identifier Shelf Expiration Date Model / Serial / Lot Mesh Plug Xlarge [id number] - [id number] Implanted:Qty: 1 on 12/09/2020 by John Zaragoza MD at OR [facility] Left: Groin CR BARD : DAVOL 05/09/2023 [id number] / / [id number] documented as of this encounter Visit Diagnoses [...] PRN Other, Hypersensitivity Reaction, Starting on Lilibeth 01/22/24 at 0835, Until Sat01/24/24 at 0834, For 24 hours EPINEPHrine 1 MG/ML inj 0.3 mg 0.3 mg, Intramuscular, ONCE PRN Other, Hypersensitivity Reaction or Anaphylaxis, Starting on Sat01/23/24 at 0835, Until Sat01/24/24 at 0834, For 24 hours hEParin 100 UNIT/ML Lock Flush inj 500 Units 500 Units (5 mL), IV Lock, PRN Other, IV Flush, Starting on Sat01/23/24 at 0835, Until Sat01/24/24 at 0834, For 24 hours, Do not flush if lock, PICC, or central line not in place; IV infusing or unable to flush. Hydrocortisone Sod Suc (PF) (Solu-Cortef) inj 100 mg 100 mg, IV Push, ONCE PRN Other, Hypersensitivity Reaction, Starting on Sat01/23/24 at 0835, Until Sat01/24/24 at 0834, For 24 hours meperidine (Demerol) 25 MG/ML inj 25 mg 25 mg, IV Push, ONCE PRN Shivering, Starting on Sat01/23/24 at 0835, Until Sat01/24/24 at 0834, For 24 hours NSS infusion FOR HYDRATION Intravenous, at 50 mL/hr Administer over 10 Hours, CONTINUOUS, Starting on Sat01/23/24 at 0915, Until Discontinued Start Infusion 01/23/2024 8:56 AM EDT 500 mL 50 mL/hr sodium chloride 0.9 % flush central line 10 mL 10 mL, IV Push, PRN Other, IV Flush, Starting on Sat01/23/24 at 0835, Until Sat01/24/24 at 0834, For 24 hours, Do not flush if [...] 9:00 AM EDT 1,000 mL 500 mL/hr ondansetron [...] of Attor coco? No Care Teams Associate Financial Analyst Relationship Specialty Start Date End Date Michael Collins MD [address] [place] [address] [place] [address] PCP - General Internal Medicine 03/01/14 documented as of this encounter
--- OUTSIDE RECORDS SUMMARY | 2024-03-26 16:21 | External Medical Summary ---
Author Name Unknown Address Unknown Organization K01:[facility]ATORY [facility] [place] - [address] [facility] [place] [address] Laboratory Report Ordering Provider Test Date Status KALPESH SERRANO 01/29/2024 08:26:00 Final Observation Date Value Abnormality Reference (Units ) Status SYNC LEUKOCYTES IN BLOOD BY AUTOMATED COUNT 01/29/2024 08:26:00 3.81 Below low normal 4.00-10.80 (K/uL) Final Segs 01/29/2024 08:26:00 72.6 40.0-75.0 (%) Final Lymphs % 01/29/2024 08:26:00 10.8 Below low normal 18.0-42.0 (%) Final Monos 01/29/2024 08:26:00 14.2 Above high normal 1.0-11.0 (%) Final Eosinophils 01/29/2024 08:26:00 1.8 0.0-6.0 (%) Final Basos 01/29/2024 08:26:00 0.3 0.0-2.0 (%) Final Immature Granulocyte, Percent 01/29/2024 08:26:00 0.3 0.0-2.0 (%) Final Absolute Segs 01/29/2024 08:26:00 2.77 1.80-7.70 (K/uL) Final Lymphs, absolute 01/29/2024 08:26:00 0.41 Below low normal 1.00-4.80 (K/ul) Final Monos, Abs 01/29/2024 08:26:00 0.54 0.00-1.10 (K/uL) Final Eos, Abs 01/29/2024 08:26:00 0.07 0.00-0.70 (K/uL) Final Basos, Abs 01/29/2024 08:26:00 0.01 0.00-0.20 (K/uL) Final Immature Granulocytes, Number 01/29/2024 08:26:00 0.01 0.00-0.20 (K/uL) Final Performing Location LAB[facility]ATORY [facility] [place] - [facility] [address] [address]
--- OUTSIDE RECORDS SUMMARY | 2024-03-26 16:21 | External Medical Summary | Summary of Care ---
Author Name Unknown Organization [facility] Address [address] [facility] [place] [address] Phone [phone] Care Team Providers Care Rodeo Rider Name Role Phone Michael Collins MD Primary Care Provi zehra Reason for Visit * Reason Comments Chemotherapy Cytoxan/Darzalex Fas pro * Episode Based Medications (Routine) - Authorized Specialty Diagnoses / Procedures Referred By Contac t Referred To Contact Diagnoses Multiple myeloma not having achieved remission (HCC) Procedures KS DARATUMUMAB, HYALURONIDASE [place] INJ, CYCLOPHOSPHAMIDE, NOS Morgan Vásquez MD 200 [facility] [place] [address] Anc Hem/Onc Amena You DEPT CLOSED - 03/26/23 200 [facility] [place] [address] Referral ID Status Reason Start Date Expiration Date V isits Requested Visits Authorized [id number] Authorized 05/28/2022 05/12/2099 99 99 Encounter Details Date Type Department Care Team (Latest Contact Info) Description 12/12/2023 11:45 AM EDT Hem/Onc Treatment Hematology/Oncology Treatment, [place] [address] [place] [address] Kenyatta, Chair 4 Hem On[address] [place] [address] Multiple myeloma not having achieved remission (HCC)*; Encounter for adjustment and management of vascular access device Allergies No known active allergiesdocumented as of this encounter (statuses as of 01/19/2024) Medications Medication Sig Dispensed Refills Start Date End Date Status THEOPHYLLINE ER 450 MG PO [id number]:2 tablet at bedtime Take by mouth. Indications: [...] at bedtime. PATIENT INFORMATION: Kris Galvin [address] [place] [address] [employer]: [employer] ORDER: Please start nocturnal oxygen via nasal [...] (electronically signed) Ish Caba MD Pulmonary Medicine, [address] [address] [facility] Medical License Number: [id number] 1 Each 3 Active metFORMIN HCl ER [...] mRNA, LNP-s, No Pre serve, 2-Dose Series ([employer]) 01/17/2021,08/05/2020,07/08/2020 COVID-19, LNP-s, No Preserve , Bryant-sucrose, [...] Mobile Phlebotomy [facility] [address] [place] [address] M[facility], Gml Mobile Home Draw [address] [place] [address] 01/23/2024 8:30 AM EDT Hem/Onc Treatment Hematology/Oncology Treatment, [address] [phone] Kenyatta, Chair 9 Hem On[address] [place] [address] 01/29/2024 7:05 AM EDT Laboratory Lab Mobile Phlebotomy [facility] [address] [place] [address] Mvmg, Gml Mobile Home Draw [address] [place] [address] 01/30/2024 8:30 AM EDT Hem/Onc Treatment Hematology/Oncology Treatment, [address] [phone] Kenyatta, Chair 5 Hem Onc Scenery 200 [facility] [place], [place] [address] 02/05/2024 8:40 AM EDT Office Visit Neurology [facility] 200 [facility] [place], [place] [address] Octavia Goins PA-C 200 [facility] [place], [place] [address] 02/06/2024 8:30 AM EDT Hem/Onc Treatment Hematology/Oncology Treatment, [place] 200 [facility], [place] [phone] Kenyatta, Chair 4 Hem Onc [facility] 200 [facility] [place], [place] [address] 02/07/2024 8:00 AM EDT Office Visit [address] [place] [phone] Darnell Higgins MD [address] [place], [place] [address] 02/12/2024 7:05 AM EDT Laboratory Lab Mobile Phlebotomy [facility] [address] [employer] [address] [place] [address] Mvmg, Gml Mobile Home Draw [address] [place], [place] [address] 02/13/2024 8:30 AM EDT Hem/Onc Treatment Hematology/Oncology Treatment, [place] 200 [facility] [place], [place] [phone] Kenyatta, Chair 4 Hem Onc Scenery [address] [facility] [place] [address] 02/19/2024 7:05 AM EDT Laboratory Lab Mobile Phlebotomy [facility] [address] [place], [place] [address] Mvmg, Gml Mobile Home Draw [address] [place] [address] 02/20/2024 8:30 AM EDT Hem/Onc Treatment Hematology/Oncology Treatment, [place] 200 [place] [address] Park, Chair 7 Hem Onc Scenery 200 [facility] [place] [address] 02/26/2024 7:05 AM EDT Laboratory Lab Mobile Phlebotomy [facility] [address] [place] [address] Mvmg, Gml Mobile Home Draw [address] [place], [place] [address] 02/27/2024 8:30 AM EDT Hem/Onc Treatment Hematology/Oncology Treatment, [place] [address] [place] [phone] Kenyatta, Chair 9 Hem Onc Scenery 200 [facility] [place] [address] 03/04/2024 7:00 AM EDT Laboratory Lab Mobile Phlebotomy [facility] [address] [place], [place] [address] Mvmg, Gml Mobile Home Draw [address] [place], [place] [address] 03/05/2024 10:45 AM EDT Office Visit Hematology/Oncology [facility] 200 [facility], [place] [phone] Morgan Vásquez MD 200 [facility] [place] [address] 03/05/2024 11:15 AM EDT [facility] 200 [place] [phone] Park, Chair 1 Hem Onc Scenery 200 [facility] [place] [address] 03/11/2024 7:05 AM EDT Laboratory Lab Mobile Phlebotomy [facility] [address] [place] [address] Mvmg, Gml Mobile Home Draw [address] [place] [address] 03/18/2024 7:05 AM EST Laboratory Lab Mobile Phlebotomy [facility] [address] [place] [address] Mvmg, Gml Mobile Home Draw [address] [place] [address] 03/25/2024 7:05 AM EST Laboratory Lab Mobile Phlebotomy [facility] [address] [place] [address] Mvmg, Gml Mobile Home Draw [address] [place] [address] 04/01/2024 7:00 AM EST Laboratory Lab Mobile Phlebotomy [facility] [address] [place] [address] Mvmg, Gml Mobile Home Draw [address] [place] [address] 04/08/2024 7:05 AM EST Laboratory Lab Mobile Phlebotomy [facility] [address] [place] [address] Mvmg, Gml Mobile Home Draw [address] [place] [address] 04/15/2024 7:05 AM EST Laboratory Lab Mobile Phlebotomy [facility] [address] [place] [address] Mvmg, Gml Mobile Home Draw [address] [place] [address] 04/22/2024 7:05 AM EST Laboratory Lab Mobile Phlebotomy [facility] [address] [place] [address] Mvmg, Gml Mobile Home Draw [address] [place] [address] 04/29/2024 7:05 AM EST Laboratory Lab Mobile Phlebotomy [facility] [address] [place] [address] Mvmg, Gml Mobile Home Draw [address] [place] [address] 05/05/2024 7:05 AM EST Laboratory Lab Mobile Phlebotomy [facility] [address] [facility] [place], [place] [address] Mvmg, Gml Mobile Home Draw [address] [place] [address] 09/02/2024 8:20 AM EDT Office Visit Pulmonary Medicine, [facility] [address] [place] [address] Ish Caba MD [address] [facility] [place] [address] 05/03/2025 7:40 AM EST Office Visit Dermatology [address] [place] [address] Albina Romo PA-C [address] [place] [address] [place] [address] Health Maintenance Due Date Last Done Comments [...] this encounter Medical Devices Implanted Type Area Terminal Operations Supervisor Device Identifier Shelf Expiration Date Model / Serial / Lot Mesh Plug Xlarge [id number] - [id number] Implanted:Qty: 1 on 12/09/2020 by John Zaragoza MD at OR [facility] Left: Groin CR BARD : DAVOL 05/09/2023 [id number] / / [id number] documented as of this encounter Visit Diagnoses [...] 517.4 mL/hr Daratumumab-hyaluronida -fihj (Darzalex Faspro) 1800 mg-74341 units/ 15 ml subcut inj 15 mL, [...] Power of Attor coco? No Care Teams Rodeo Rider Relationship Specialty Start Date End Date Michael Collins MD [address] [place] [address] [place] [address] PCP - General Internal Medicine 03/01/14 documented as of this encounter
--- OUTSIDE RECORDS SUMMARY | 2024-03-26 16:21 | External Medical Summary | Summary of Care ---
Author Name Unknown Organization [facility] Address [address] [facility] [place] [address] Phone [phone] Care Team Providers Care Forming Mill Operator Name Role Phone Michael Collins MD Primary Care Provi zehra Reason for Visit * Reason Comments Chemotherapy Cytoxan/Darzalex Fas pro * Episode Based Medications (Routine) - Authorized Specialty Diagnoses / Procedures Referred By Contac t Referred To Contact Diagnoses Multiple myeloma not having achieved remission (HCC) Procedures [place] DARATUMUMAB, HYALURONIDASE [place] INJ, CYCLOPHOSPHAMIDE, NOS Morgan Vásquez MD [address] [facility] [place] [address] Anc Hem/Onc Amena You DEPT CLOSED - 03/26/23 [address] [facility] [place] [address] Referral ID Status Reason Start Date Expiration Date V isits Requested Visits Authorized [id number] Authorized 05/28/2022 05/12/2099 99 99 Encounter Details Date Type Department Care Team (Latest Contact Info) Description 12/12/2023 11:45 AM EDT Hem/Onc Treatment Hematology/Oncology Treatment, [place] [address] [place] [phone] Kenyatta, Chair 4 Hem On[address] [place] [address] Multiple myeloma not having achieved remission (HCC)*; Encounter for adjustment and management of vascular access device Allergies No known active allergiesdocumented as of this encounter (statuses as of 01/19/2024) Medications Medication Sig Dispensed Refills Start Date End Date Status THEOPHYLLINE ER 450 MG PO [id number]:2 tablet at bedtime Take by mouth. Indications: [...] Take by mouth. Active Multiple Vitamins-Minerals ([facility] IMMUNITY SUPPORT) CHEW Take by mouth. [...] at bedtime. PATIENT INFORMATION: Kris Galvin [address] [place] [address] [email or web address]: [employer] ORDER: Please start nocturnal oxygen via nasal [...] (electronically signed) Ish Caba MD Pulmonary Medicine, [address] [address] [facility] Medical License Number: [id number] 1 Each 3 Active metFORMIN HCl ER [...] mRNA, LNP-s, No Pre serve, 2-Dose Series ([employer] LS15) 01/17/2021,08/05/2020,07/08/2020 COVID-19, LNP-s, No Preserve , Bryant-sucrose, [...] Mobile Phlebotomy [facility] [address] [place] [address] [facility] [address] [place] [address] 01/23/2024 8:30 AM EDT Hem/Onc Treatment Hematology/Oncology [address], [address] [phone] Kenyatta, Chair 9 Hem Onc [address] [place] [address] 01/29/2024 7:05 AM EDT Laboratory Lab Mobile Phlebotomy [facility] [address] [place] [address] [facility] [address] [place] [address] 01/30/2024 8:30 AM EDT Hem/Onc Treatment Hematology/Oncology Treatment, [address] [phone] Kenyatta, Chair 5 Hem Onc Scenery 200 [facility] [place], [place] [address] 02/05/2024 8:40 AM EDT Office Visit Neurology [facility] [address] [facility] [place], [place] [address] Octavia Goins PA-C [address] [facility] [place], [place] [address] 02/06/2024 8:30 AM EDT Hem/Onc Treatment Hematology/Oncology Treatment, [place] 200 [facility], [place] [phone] Kenyatta, Chair 4 Hem Onc [facility] [address] [facility] [place], [place] [address] 02/07/2024 8:00 AM EDT Office Visit [address] [place] [phone] Darnell Higgins MD [address] [place], [place] [address] 02/12/2024 7:05 AM EDT Laboratory Lab Mobile Phlebotomy [facility] [address] [place] [address] [facility], [facility] [address] [place], [place] [address] 02/13/2024 8:30 AM EDT Hem/Onc Treatment Hematology/Oncology Treatment, [place] 200 [facility] [place], [place] [phone] Kenyatta, Chair 4 Hem Onc Scenery [address] [facility] [place] [address] 02/19/2024 7:05 AM EDT Laboratory Lab Mobile Phlebotomy [facility] [address] [place] [address] [facility], [facility] Draw [address] [place] [address] 02/20/2024 8:30 AM EDT Hem/Onc Treatment Hematology/Oncology Treatment, [place] 200 [facility] [place] [phone] Park, Chair 7 Hem Onc Scenery 200 [place] [address] 02/26/2024 7:05 AM EDT Laboratory Lab Mobile Phlebotomy [facility] [address] [place] [address] [facility] [address] [place], [place] [address] 02/27/2024 8:30 AM EDT Hem/Onc Treatment Hematology/Oncology Treatment, [place] 200 [facility] [place] [phone] Kenyatta, Chair 9 Hem Onc Scenery [address] [facility] [place] [address] 03/04/2024 7:00 AM EDT Laboratory Lab Mobile Phlebotomy [facility] [address] [place], [place] [address] [facility] [address] [place], [place] [address] 03/05/2024 10:45 AM EDT Office Visit Hematology/Oncology [facility] 200 [facility], [place] [phone] Morgan Vásquez MD 200 [place] [address] 03/05/2024 11:15 AM EDT [facility] 200 [facility] [place] [phone] Park, Chair 1 Hem Onc Scenery 200 [facility] [place] [address] 03/11/2024 7:05 AM EDT Laboratory Lab Mobile Phlebotomy [facility] [address] [place] [address] [facility] [address] [place] [address] 03/18/2024 7:05 AM EST Laboratory Lab Mobile Phlebotomy [facility] [address] [place] [address] M[facility], Gml [facility] [address] [place] [address] 03/25/2024 7:05 AM EST Laboratory Lab Mobile Phlebotomy [facility] [address] [place] [address] M[facility], [facility]ml [facility] [address] [place] [address] 04/01/2024 7:00 AM EST Laboratory Lab Mobile Phlebotomy [facility] [address] [place] [address] [facility], [facility] [address] [place] [address] 04/08/2024 7:05 AM EST Laboratory Lab Mobile Phlebotomy [facility] [address] [place] [address] M[facility], Gml [facility] Draw [address] [place] [address] 04/15/2024 7:05 AM EST Laboratory Lab Mobile Phlebotomy [facility] [address] [place] [address] M[facility], Gml [facility] [address] [place] [address] 04/22/2024 7:05 AM EST Laboratory Lab Mobile Phlebotomy [facility] [address] [place] [address] M[facility], Gml [facility] [address] [place] [address] 04/29/2024 7:05 AM EST Laboratory Lab Mobile Phlebotomy [facility] [address] [place] [address] M[facility], Gml [facility] Draw [address] [place] [address] 05/05/2024 7:05 AM EST Laboratory Lab Mobile Phlebotomy [facility] [address] [employer] [facility] [place], [place] [address] M[facility], Gml Mobile Home Draw [address] [place] [address] 09/02/2024 8:20 AM EDT Office Visit Pulmonary Medicine, [facility] [address] [place] [address] Ish Caba MD [address] [facility] [place] [address] 05/03/2025 7:40 AM EST Office Visit Dermatology [address] [place] [address] Albina Romo PA-C [address] [place] [address] [place] [address] Health Maintenance Due Date Last Done Comments [...] this encounter Medical Devices Implanted Type Area Call Center Operations Manager Device Identifier Shelf Expiration Date Model / Serial / Lot Mesh Plug Xlarge [id number] - [id number] Implanted:Qty: 1 on 12/09/2020 by John Zaragoza MD at OR [facility] Left: Groin CR BARD : DAVOL 05/09/2023 [id number] / / [id number] documented as of this encounter Visit Diagnoses [...] 517.4 mL/hr Daratumumab-hyaluronida -fihj (Darzalex Faspro) 1800 mg-59921 units/ 15 ml subcut inj 15 mL, [...] Power of Attor coco? No Care Teams Forming Mill Operator Relationship Specialty Start Date End Date Michael Collins MD [address] [place] [address] [place] [address] PCP - General Internal Medicine 03/01/14 documented as of this encounter
--- OUTSIDE RECORDS SUMMARY | 2024-03-26 16:21 | External Medical Summary ---
Author Name Unknown Address Unknown Organization K01:[facility] [place] [place] [address] [place] [facility] [place] [address] Laboratory Report Ordering Provider Test Date Status KALPESH SERRANO 01/29/2024 08:26:00 Final Observation Date Value Abnormality Reference (Units ) Status BUN 01/29/2024 08:26:00 15 6-20 (mg/dL) Final Creatinine 01/29/2024 08:26:00 1.1 0.6-1.2 (mg/dL) Final Glomerular filtration rate/1.73 sq M.predicted [Volume Rate/Area] in Serum, Plasma or Blood by Creatinine-based formula (CKD-EPI) 01/29/2024 08:26:00 76 >=60 (mL/min) Final eGFR is calculated based on the CKD-EPI 2020 equation. Sodium 01/29/2024 08:26:00 138 135-146 (m mol/L) Final Potassium 01/29/2024 08:26:00 3.5 3.5-5.1 (m mol/L) Final Cl 01/29/2024 08:26:00 100 98-107 (mm ol/L) Final CO2 01/29/2024 08:26:00 25 22-32 (mmo l/L) Final Anion gap 01/29/2024 08:26:00 13 7-15 (mmol /L) Final Glucose 01/29/2024 08:26:00 118 70-120 (mg /dL) Final Albumin 01/29/2024 08:26:00 4.5 3.8-5.0 (g /dL) Final AST (Aspartate aminotransferase) 01/29/2024 08:26:00 18 10-50 (U/L) Fin al Alk Phos 01/29/2024 08:26:00 99 35-130 (U/ L) Final Bilirubin, Total 01/29/2024 08:26:00 0.4 <=1 .2 (mg/dL) Final Calcium 01/29/2024 08:26:00 9.2 8.4-10.2 ( mg/dL) Final Protein 01/29/2024 08:26:00 5.9 Below low normal 6.0 -8.3 (g/dL) Final ALT (Alanine aminotransferase) 01/29/2024 08:26:00 17 10-50 (U/L) Regis figueroa Performing Location [facility] [place] [facility] N Josselin Peña. [facility] [address]
--- OUTSIDE RECORDS SUMMARY | 2024-03-26 16:22 | External Medical Summary | Summary of Care ---
Author Name Unknown Organization [facility] Address [address] [facility] [place] [address] Phone [phone] Care Team Providers Care Radio Mechanic Helper Name Role Phone Michael Collins MD Primary Care Provi zehra Reason for Visit * Reason Comments Chemotherapy Cytoxan. * Episode Based Medications (Routine) - Authorized Specialty Diagnoses / Procedures Referred By Contac t Referred To Contact Diagnoses Multiple myeloma not having achieved remission (HCC) Procedures [place] DARATUMUMAB, HYALURONIDASE [place] INJ, CYCLOPHOSPHAMIDE, NOS Morgan Vásquez MD [address] [place] [address] Anc Hem/Onc Amena You DEPT CLOSED - 03/26/23 200 [facility] [place] [address] Referral ID Status Reason Start Date Expiration Date V isits Requested Visits Authorized [id number] Authorized 05/28/2022 05/12/2099 99 99 Encounter Details Date Type Department Care Team (Latest Contact Info) Description 12/26/2023 9:00 AM EDT Hem/Onc Treatment Hematology/Oncolog y Treatment, [place] [address] [place] [phone] Kenyatta, Chair 10 Hem Onc Scenery [address] Amena Osman [place] [address] Multiple myeloma not having achieved remission (HCC)*; Encounter for antineoplastic chemotherapy Allergies No known active allergiesdocumented as of this encounter (statuses as of 01/19/2024) Medications Medication Sig Dispensed Refills Start Date End Date Status THEOPHYLLINE ER 450 MG PO RT68Ebfmmkgvclm:2 tablet at bedtime Take by mouth. Indications: [...] CAPS Take by mouth. Active Multiple Vitamins-Minerals ([facility] IMMUNITY SUPPORT) CHEW Take by mouth. [...] nostril at bedtime. PATIENT INFORMATION: Kris Galvin [address] [place] [address] [employer]: [employer] ORDER: Please start nocturnal oxygen via nasal [...] (electronically signed) Ish Caba MD Pulmonary Medicine, [address] [place] [address] [place] [facility] Medical License Number: [id number] 1 Each 3 Active metFORMIN HCl ER [...] mRNA, LNP-s, No Pre serve, 2-Dose Series (5211game) 01/17/2021,08/05/2020,07/08/2020 COVID-19, LNP-s, No Preserve , Bryant-sucrose, [...] Sign Reading Time Taken Comments Blood Pressure 118/80 12/26/2023 9:00 AM EDT Pulse 92 12/26/2023 9:00 AM EDT Temperature 36.9 C (98.4 F) 12/26/2023 9:00 AM ED T Respiratory Rate 18 12/26/2023 9:00 AM EDT Oxygen Saturation 91% 12/26/2023 9:00 AM EDT Inhaled Oxygen Concentration - - Weight 130.6 kg (288 lb) 12/26/2023 9:00 AM EDT Height - - Body Mass Index 39.06 10/11/2023 9:26 AM EDT documented in this [...] as of this encounter Nursing Notes * Nimisha Zhang RN - 12/26/2023 11:55 AM EDT Goals: Patient will remain free from injury. Possible barriers to meeting goals: Fall risk d/t ambulation with IV pole. Stability of the patient: Moderately stable - low risk of patient condition declining or worsening Summary regarding today's goals: Met: Patient remained free of injury. Patient tolerated infusion well. Discharged in stable condition. * Nimisha Zhang RN - 12/26/2023 9:22 AM EDT Chair 12. Patient arrived for cytoxan with no acute complaints. PIV established. Chemotherapy/Immunotherapy agents: CYTOXAN Consent for chemotherapy drug treatment complete, dated, and signed? yes, date - 10/17/23 Treatment lab parameters met? Yes Has treatment weight changed > than 10%? No Treatment preauthorized? Yes VITALS Filed Vitals: 12/26/23 0900 BP: 118/80 Pulse: 92 Resp: 18 Temp: 36.9 C (98.4 F) TempSrc: Tympanic SpO2: 91% Weight: 130.6 kg (288 lb) Urine protein: N/A Patient education completed [...] the heat function. PRE-TREATMENT ASSESSMENT: NEURO: fatigue:some fatigue CV/RESP: denies symptoms GI/: denies symptoms OTHER: [...] Laboratory Lab Mobile Phlebotomy [facility] [address] [place] [address] [facility], [facility] [address] [place] [address] 01/23/2024 8:30 AM EDT Hem/Onc Treatment Hematology/Oncology Treatment, [place] 200 [facility] [place] [phone] Kenyatta, Chair 9 Hem Onc Scenery 200 [facility] [place] [address] 01/29/2024 7:05 AM EDT Laboratory Lab Mobile Phlebotomy [facility] [address] [place] [address] [facility], Gml [facility] Draw [address] [place] [address] 01/30/2024 8:30 AM EDT Hem/Onc Treatment Hematology/Oncology Treatment, [place] 200 [facility] [place] [phone] Kenyatta, Chair 5 Hem Onc Scenery 200 [facility] [place] [address] 02/05/2024 8:40 AM EDT [facility] 200 [facility] [place] [address] Octavia Goins PA-C 200 [facility] [place] [address] 02/06/2024 8:30 AM EDT Hem/Onc Treatment Hematology/Oncology Treatment, [place] 200 [facility] [place] [phone] Kenyatta, Chair 4 Hem Onc Scenery 200 [facility] [place] [address] 02/07/2024 8:00 AM EDT Office Visit Rheumatology [address] [place] [phone] Darnell Higgins MD 2520 [place] [address] 02/12/2024 7:05 AM EDT Laboratory Lab Mobile Phlebotomy [facility] [address] [place] [address] M[facility], Gml Mobile [facility] Draw [address] [place] [address] 02/13/2024 8:30 AM EDT [facility] 200 [facility] [place] [phone] Kenyatta, Chair 4 Hem Onc Scenery 200 [place] [address] 02/19/2024 7:05 AM EDT Laboratory Lab Mobile Phlebotomy [facility] [address] [place] [address] Mvmg, Gml [facility] Draw [address] [place] [address] 02/20/2024 8:30 AM EDT Hem[facility] 200 [facility] [place] [address] Kenyatta, Chair 7 Hem Onc Scenery 200 [place] [address] 02/26/2024 7:05 AM EDT Laboratory Lab Mobile Phlebotomy [facility] [address] [place] [address] Mvmg, Gml [facility] Draw [address] [place] [address] 02/27/2024 8:30 AM EDT Hem/Onc Treatment Hematology/Oncology Treatment, [place] 200 [facility] [place] [address] Kenyatta, Chair 9 Hem Onc Scenery 200 [place] [address] 03/04/2024 7:00 AM EDT Laboratory Lab Mobile Phlebotomy [facility] [address] [place] [address] Mvmg, Gml [facility] Draw [address] [place], [place] [address] 03/05/2024 10:45 AM EDT Office Visit Hematology/Oncology [facility] 200 [place] [phone] Morgan Vásquez MD 200 [place] [address] 03/05/2024 11:15 AM EDT Hem/Onc Treatment Hematology/Oncology Treatment, [place] 200 [facility] [place] [phone] Kenyatta, Chair 1 Hem Onc [facility] 200 [facility] [place] [address] 03/11/2024 7:05 AM EDT Laboratory Lab Mobile Phlebotomy [facility] [address] [place] [address] Mvmg, Gml [facility] Draw [address] [place] [address] 03/18/2024 7:05 AM EST Laboratory Lab Mobile Phlebotomy [facility] [address] [place], [place] [address] M[facility], Gml [facility] Draw [address] [place] [address] 03/25/2024 7:05 AM EST Laboratory Lab Mobile Phlebotomy [facility] [address] [place] [address] Mv[facility], Gml [facility] Draw [address] [place] [address] 04/01/2024 7:00 AM EST Laboratory Lab Mobile Phlebotomy [facility] [address] [place] [address] M[facility], Gml [facility] Draw [address] [place] [address] 04/08/2024 7:05 AM EST Laboratory Lab Mobile Phlebotomy [facility] [address] [place] [address] Mvmg, Gml [facility] Draw [address] [place] [address] 04/15/2024 7:05 AM EST Laboratory Lab Mobile Phlebotomy [facility] [address] [place] [address] Mvmg, Gml [facility] Draw [address] [place] [address] 04/22/2024 7:05 AM EST Laboratory Lab Mobile Phlebotomy [facility] [address] [place] [address] Mv[facility], Gml [facility] Draw [address] [place] [address] 04/29/2024 7:05 AM EST Laboratory Lab Mobile Phlebotomy [facility] [address] [place] [address] M[facility], Gml [facility] Draw [address] [employer] [place] [address] 05/05/2024 7:05 AM EST Laboratory Lab Mobile Phlebotomy [facility] [address] [place] [address] [facility], [facility] [address] [place] [address] 09/02/2024 8:20 AM EDT Office Visit Pulmonary Medicine, [address] [place] [address] Ish Caba MD [address] [place] [address] 05/03/2025 7:40 AM EST Office Visit Dermatology [address] [place] [address] Albina Romo PA-C [address] [place] [address] [place] [address] Health Maintenance Due Date Last Done Comments [...] this encounter Medical Devices Implanted Type Area Physical Aerodynamicist Device Identifier Shelf Expiration Date Model / Serial / Lot Mesh Plug Xlarge [id number] - [id number] Implanted:Qty: 1 on 12/09/2020 by John Zaragoza MD at OR [facility] Left: Groin CR BARD : DAVOL 05/09/2023 [id number] / / [id number] documented as of this encounter Visit Diagnoses [...] not tolerated., ONCE, 1 dose, On Lilibeth 12/26/23 at 0945 Start Infusion 12/26/2023 9:43 AM EDT 740 mg 517.4 mL/hr dexAMETHasone (Decadron) tab 40 mg 40 mg, Oral, ONCE, On Lilibeth 12/26/23 at 0945, For 1 dose Given 12/26/2023 9:18 AM EDT 40 mg NSS infusion FOR HYDRATION Intravenous, at 500 mL/hr Administer over 2 Hours, ONCE, 1 dose, On Lilibeth 12/26/23 at 0945 Start Infusion 12/26/2023 9:15 AM EDT 1,000 mL 500 mL/hr NSS infusion FOR HYDRATION Intravenous, at 50 mL/hr Administer over 10 Hours, CONTINUOUS, Starting on Lilibeth 12/26/23 at 0945, Until Lilibeth 12/26/23 at 1557 Start Infusion 12/26/2023 9:14 AM EDT 500 mL 50 mL/hr ondansetron (Zofran) tab 8 mg 8 mg, Oral, ONCE, On Lilibeth 12/26/23 at 0945, For 1 dose Given 12/26/2023 9:18 AM EDT 8 mg documented in this [...] Power of Attor coco? No Care Teams Radio Mechanic Helper Relationship Specialty Start Date End Date Michael Collins MD [address] [facility] [place] [address] PCP - General Internal Medicine 03/01/14 documented as of this encounter
--- OUTSIDE RECORDS SUMMARY | 2024-03-26 16:22 | External Medical Summary | Summary of Care ---
Author Name Unknown Organization [facility] Address [address] [facility] [place] [address] Phone [phone] Care Team Providers Care Director Of Human Resources Name Role Phone Michael Collins MD Primary Care Provi zehra Reason for Visit * Reason Comments Chemotherapy Cytoxan. * Episode Based Medications (Routine) - Authorized Specialty Diagnoses / Procedures Referred By Contac t Referred To Contact Diagnoses Multiple myeloma not having achieved remission (HCC) Procedures PA DARATUMUMAB, HYALURONIDASE PA INJ, CYCLOPHOSPHAMIDE, NOS Morgan Vásquez MD [address] [place] [address] Anc Hem/Onc Amena You DEPT CLOSED - 03/26/23 [facility] [place] [address] Referral ID Status Reason Start Date Expiration Date V isits Requested Visits Authorized [id number] Authorized 05/28/2022 05/12/2099 99 99 Encounter Details Date Type Department Care Team (Latest Contact Info) Description 12/19/2023 8:45 AM EDT Hem/Onc Treatment Hematology/Oncolog y Treatment, [place] [address] [place] [address] Kenyatta, Chair 9 Hem Onc Scenery [address] Amena [address]man [place] [address] Multiple myeloma not having achieved remission (HCC)*; Encounter for antineoplastic chemotherapy Allergies No known active allergiesdocumented as of this encounter (statuses as of 01/18/2024) Medications Medication Sig Dispensed Refills Start Date End Date Status THEOPHYLLINE ER 450 MG PO [id number]:2 tablet at bedtime Take by mouth. Indications: [...] CAPS Take by mouth. Active Multiple Vitamins-Minerals ([facility] IMMUNITY SUPPORT) CHEW Take by [...] nostril at bedtime. PATIENT INFORMATION: Kris Galvin [address] [place] [address] [employer]: [employer] ORDER: Please start nocturnal oxygen via nasal [...] (electronically signed) Ish Caba MD Pulmonary Medicine, [address] [place] [address] [place] [facility] Medical License Number: [id number] 1 Each 3 Active metFORMIN HCl ER [...] as of this encounter (statuses as of 01/18/2024) Active Problems Problem Noted Date Diagnosed Date [...] as of this encounter (statuses as of 01/18/2024) Resolved Problems Problem Noted Date Diagnosed Date Resolved Date Asthma in remission 08/28/2022 08/29/19 Asthma, mild persistent 08/28/202208/11 Asthma, severe persistent 08/28/2022 Stem cell transplant candidate 08/17/2019 09/02/2019 documented as of this encounter (statuses as of 01/18/2024) Immunizations Name Administration Dates Next Due COVID-19 mRNA, LNP-s, No Pre serve, 2-Dose Series ([employer]) 01/17/2021,08/05/2020,07/08/2020 COVID-19, LNP-s, No Preserve , Bryant-sucrose, [...] Sign Reading Time Taken Comments Blood Pressure 120/84 12/19/2023 8:40 AM EDT Pulse 79 12/19/2023 8:40 AM EDT Temperature 36.2 C (97.2 F) 12/19/2023 8:40 AM ED T Respiratory Rate 18 12/19/2023 8:40 AM EDT Oxygen Saturation 92% 12/19/2023 8:40 AM EDT Inhaled Oxygen Concentration - - Weight 133 kg (293 lb 3.2 oz) 12/19/2023 8:40 AM EDT Height - - Body Mass Index 39.77 10/11/2023 9:26 AM EDT documented in this [...] Nursing Notes * Nimisha Zhang RN - 12/19/2023 10:57 AM EDT Goals: Patient will remain free from injury. Possible barriers to meeting goals: Fall risk d/t ambulation with IV pole. Stability of the patient: Moderately unstable - medium risk of patient condition declining or worsening Summary regarding today's goals: Met: Patient remained free of injury. Patient tolerated infusion well. Discharged in stable condition. * Nimisha Zhang RN - 12/19/2023 8:57 AM EDT Chair 9. Patient arrived for cytoxan with no acute complaints. VAD accessed. Chemotherapy/Immunotherapy agents: CYTOXAN Consent for chemotherapy drug treatment complete, dated, and signed? yes, date - 10/17/23 Treatment lab parameters met? Yes Has treatment weight changed > than 10%? No Treatment preauthorized? Yes VITALS Filed Vitals: 12/19/23 0840 BP: 120/84 Pulse: 79 Resp: 18 Temp: 36.2 C (97.2 F) TempSrc: Tympanic SpO2: 92% Weight: 133 kg (293 lb 3.2 oz) Urine protein: N/A Patient education completed for treatment? Yes Blood transfusion consent signed and complete? NA Return appointment scheduled? Yes Patient had provider visit today? No - If no provider visit must complete Pretreatment Assessment Functional Status: Functional status at today's visit: Ambulatory and capable of all selfcare but unable to carry out any work activities. Up and about more than 50% of waking hours The drug name, dose, infusion volume, rate [...] EDT Laboratory Lab Mobile Phlebotomy [facility] [address] [place], [place] [address] Mvmg, Gml Mobile Home Draw [address] [place] [address] 01/23/2024 8:30 AM EDT [facility] [address] [facility] [place] [phone] Kenyatta, Chair 9 Hem Onc Scenery [facility] [place] [address] 01/29/2024 7:05 AM EDT Laboratory Lab Mobile Phlebotomy [facility] [address] [place] [address] Mvmg, Gml Mobile Home Draw [address] [place] [address] 01/30/2024 8:30 AM EDT Hem/Onc Treatment Hematology/Oncology Treatment, [place] [address] [facility] [place], [place] [phone] Kenyatta, Chair 5 Hem Onc Scenery [address] [place], [place] [address] 02/05/2024 8:40 AM EDT Office Visit Neurology [facility] [place] [address] [facility] [place] [address] Octavia Goins PA-C [address] [facility] [place] [address] 02/06/2024 8:30 AM EDT Hem/Onc Treatment Hematology/Oncology Treatment, [place] 200 [facility], [place] [phone] Kenyatta, Chair 4 Hem Onc Scenery [address] [place], [place] [address] 02/07/2024 8:00 AM EDT Office Visit Rheumatology [address] [place] [phone] Darnell Higgins MD [address] [place] [address] 02/12/2024 7:05 AM EDT Laboratory Lab Mobile Phlebotomy [facility] [address] [place] [address] Mvmg, Gml Mobile Home Draw [address] [place] [address] 02/13/2024 8:30 AM EDT Hem/Onc Treatment Hematology/Oncology Treatment, [place] 200 [facility] [place] [address] Kenyatta, Chair 4 Hem Onc Scenery 200 [facility] [place] [address] 02/19/2024 7:05 AM EDT Laboratory Lab Mobile Phlebotomy [facility] [address] [place] [address] Mvmg, Gml Mobile Home Draw [address] [place] [address] 02/20/2024 8:30 AM EDT Hem/Onc Treatment Hematology/Oncology Treatment, [place] 200 [facility] [place] [address] Kenyatta, Chair 7 Hem Onc Scenery 200 [facility] [place] [address] 02/26/2024 7:05 AM EDT Laboratory Lab Mobile Phlebotomy [facility] [address] [place] [address] Mvmg, Gml Mobile Home Draw [address] [place] [address] 02/27/2024 8:30 AM EDT Hem/Onc Treatment Hematology/Oncology Treatment, [place] 200 [facility] [place] [phone] Kenyatta, Chair 9 Hem Onc Scenery 200 [facility] [place] [address] 03/04/2024 7:00 AM EDT Laboratory Lab Mobile Phlebotomy [facility] [address] [place] [address] Mvmg, Gml Mobile Home Draw [address] [facility] [place], [place] [address] 03/05/2024 10:45 AM EDT Office Visit Hematology/Oncology [facility] [address] [place] [phone] Morgan Vásquez MD [address] [facility] [place], [place] [address] 03/05/2024 11:15 AM EDT [facility] [address] [place], [place] [phone] Kenyatta, Chair 1 Hem Onc [facility] [place], [place] [address] 03/11/2024 7:05 AM EDT Laboratory Lab Mobile Phlebotomy [facility] [address] [place], [place] [address] Mvmg, Gml Mobile Home Draw [address] [facility] [place] [address] 03/18/2024 7:05 AM EST Laboratory Lab Mobile Phlebotomy [facility] [address] [employer] [address] [place], [place] [address] Mvmg, Gml Mobile Home Draw [address] [facility] [place] [address] 03/25/2024 7:05 AM EST Laboratory Lab Mobile Phlebotomy [facility] [address] [address] Mvmg, Gml Mobile Home Draw [address] [place] [address] 04/01/2024 7:00 AM EST Laboratory Lab Mobile Phlebotomy [facility] [address] [place], [place] [address] Mvmg, Gml Mobile Home Draw [address] [place] [address] 04/08/2024 7:05 AM EST Laboratory Lab Mobile Phlebotomy [facility] [address] [place] [address] Mvmg, Gml Mobile Home Draw [address] [place] [address] 04/15/2024 7:05 AM EST Laboratory Lab Mobile Phlebotomy [facility] [address] [place] [address] Mvmg, Gml Mobile Home Draw [address] [place] [address] 04/22/2024 7:05 AM EST Laboratory Lab Mobile Phlebotomy [facility] [address] [address] Mvmg, Gml Mobile Home Draw [address] [place] [address] 04/29/2024 7:05 AM EST Laboratory Lab Mobile Phlebotomy [facility] [address] [place] [address] Mvmg, Gml Mobile Home Draw [address] [place] [place] [address] 05/05/2024 7:05 AM EST Laboratory Lab Mobile Phlebotomy [facility] [address] [place] [address] Mvmg, Gml Mobile Home Draw [address] [place] [place] [address] 09/02/2024 8:20 AM EDT Office Visit Pulmonary Medicine, [facility] [address] [facility] [place] [address] Ish Caba MD [address] [place] [address] 05/03/2025 7:40 AM EST Office Visit Dermatology [address] [place] [phone] Albina Romo PA-C [address] [place] [address] [place] [address] Health Maintenance Due Date Last Done Comments [...] this encounter Medical Devices Implanted Type Area Hvac Design Engineer Device Identifier Shelf Expiration Date Model / Serial / Lot Mesh Plug Xlarge [id number] - [id number] Implanted:Qty: 1 on 12/09/2020 by John Zaragoza MD at OR [facility] Left: Groin CR BARD : DAVOL 05/09/2023 [id number] / / [id number] documented as of this encounter Visit Diagnoses [...] not tolerated., ONCE, 1 dose, On Lilibeth 12/19/23 at 0915 Start Infusion 12/19/2023 9:40 AM EDT 740 mg 517.4 mL/hr dexAMETHasone (Decadron) tab 40 mg 40 mg, Oral, ONCE, On Lilibeth 12/19/23 at 0915, For 1 dose Given 12/19/2023 8:54 AM EDT 40 mg NSS infusion FOR HYDRATION Intravenous, at 500 mL/hr Administer over 2 Hours, ONCE, 1 dose, On Lilibeth 12/19/23 at 0915 Start Infusion 12/19/2023 8:51 AM EDT 1,000 mL 500 mL/hr NSS infusion FOR HYDRATION Intravenous, at 50 mL/hr Administer over 10 Hours, CONTINUOUS, Starting on Lilibeth 12/19/23 at 0915, Until Lilibeth 12/19/23 at 1458 Start Infusion 12/19/2023 8:50 AM EDT 500 mL 50 mL/hr ondansetron (Zofran) tab 8 mg 8 mg, Oral, ONCE, On Lilibeth 12/19/23 at 0915, For 1 dose Given 12/19/2023 8:54 AM EDT 8 mg documented in [...] Power of Attor coco? No Care Teams Director Of Human Resources Relationship Specialty Start Date End Date Michael Colilns MD [address] [place] [address] [place] [address] PCP - General Internal Medicine 03/01/14 documented as of this encounter
--- OUTSIDE RECORDS SUMMARY | 2024-03-26 16:22 | External Medical Summary | Summary of Care ---
Author Name Unknown Organization [facility] Address [address] [facility] [place] [address] Phone [phone] Care Team Providers Care Modeling Director Name Role Phone Michael Collins MD Primary Care Provi zehra Reason for Visit * Reason Comments Chemotherapy Cytoxan. * Episode Based Medications (Routine) - Authorized Specialty Diagnoses / Procedures Referred By Contac t Referred To Contact Diagnoses Multiple myeloma not having achieved remission (HCC) Procedures IN DARATUMUMAB, HYALURONIDASE IN INJ, CYCLOPHOSPHAMIDE, NOS Morgan Vásquez MD [address] [place] [address] Anc Hem/Onc Amena You DEPT CLOSED - 03/26/23 200 [facility] [place] [address] Referral ID Status Reason Start Date Expiration Date V isits Requested Visits Authorized [id number] Authorized 05/28/2022 05/12/2099 99 99 Encounter Details Date Type Department Care Team (Latest Contact Info) Description 12/26/2023 9:00 AM EDT Hem/Onc Treatment Hematology/Oncolog y Treatment, [place] [address] [place] [address] Kenyatta, Chair 10 Hem Onc Scenery 200 Amena Osman [place] [address] Multiple myeloma not having achieved remission (HCC)*; Encounter for antineoplastic chemotherapy Allergies No known active allergiesdocumented as of this encounter (statuses as of 01/19/2024) Medications Medication Sig Dispensed Refills Start Date End Date Status THEOPHYLLINE ER 450 MG PO [id number]:2 tablet at bedtime Take by mouth. Indications: [...] CAPS Take by mouth. Active Multiple Vitamins-Minerals ([facility] IMMUNITY SUPPORT) CHEW Take [...] nostril at bedtime. PATIENT INFORMATION: Kris Galvin [address] [place] [address] [employer]: [employer] ORDER: Please start nocturnal oxygen via nasal [...] signed) Ish Caba MD Pulmonary Medicine, [address] [place] [address] [place] [facility] Medical License Number: [id number] 1 Each 3 Active metFORMIN HCl ER [...] mRNA, LNP-s, No Pre serve, 2-Dose Series ([employer]) 01/17/2021,08/05/2020,07/08/2020 COVID-19, LNP-s, No Preserve , Bryant-sucrose, [...] Laboratory Lab Mobile Phlebotomy [facility] [address] [employer] [place] [address] Mvmg, Gml Mobile Home Draw [address] [employer] [place] [address] 01/23/2024 8:30 AM EDT Hem/Onc Treatment Hematology/Oncology Treatment, [place] [address] [place] [phone] Kenyatta, Chair 9 Hem Onc Scenery 200 [facility] [place] [address] 01/29/2024 7:05 AM EDT Laboratory Lab Mobile Phlebotomy [facility] [address] [place] [address] Mvmg, Gml Mobile Home Draw [address] [place] [address] 01/30/2024 8:30 AM EDT Hem/Onc Treatment Hematology/Oncology Treatment, [place] [address] [place] [phone] Kenyatta, Chair 5 Hem Onc Scenery 200 [facility] [place] [address] 02/05/2024 8:40 AM EDT [facility] 200 [facility] [place] [address] Octavia Goins PA-C 200 [facility] [place] [address] 02/06/2024 8:30 AM EDT Hem/Onc Treatment Hematology/Oncology Treatment, [place] [address] [place] [phone] Kenyatta, Chair 4 Hem Onc Scenery 200 [facility] [place] [address] 02/07/2024 8:00 AM EDT Office Visit Rheumatology [address] [place] [phone] Darnell Higgins MD 2520 [place] [address] 02/12/2024 7:05 AM EDT Laboratory Lab Mobile Phlebotomy [facility] [address] [place] [address] Mvmg, Gml Mobile Home Draw [address] [place] [address] 02/13/2024 8:30 AM EDT [facility] 200 [facility] [place] [address] Kenyatta, Chair 4 Hem Onc Scenery 200 [place] [address] 02/19/2024 7:05 AM EDT Laboratory Lab Mobile Phlebotomy [facility] [address] [place] [address] Mvmg, Gml Mobile Home Draw [address] [place] [address] 02/20/2024 8:30 AM EDT Hem[facility] 200 [facility] [place] [address] Kenyatta, Chair 7 Hem Onc Scenery 200 [place] [address] 02/26/2024 7:05 AM EDT Laboratory Lab Mobile Phlebotomy [facility] [address] [place] [address] Mvmg, Gml Mobile Home Draw [address] [place] [address] 02/27/2024 8:30 AM EDT Hem/Onc Treatment Hematology/Oncology Treatment, [place] [address] [facility] [place] [address] Kenyatta, Chair 9 Hem Onc Scenery 200 [place] [address] 03/04/2024 7:00 AM EDT Laboratory Lab Mobile Phlebotomy [facility] [address] [place] [address] Mvmg, Gml Mobile Home Draw [address] [place], [place] [address] 03/05/2024 10:45 AM EDT Office Visit Hematology/Oncology [facility] 200 [place] [phone] Morgan Vásquez MD 200 [place] [address] 03/05/2024 11:15 AM EDT Hem/Onc Treatment Hematology/Oncology Treatment, [place] 200 [facility] [place] [address] Kenyatta, Chair 1 Hem Onc [facility] 200 [facility] [place] [address] 03/11/2024 7:05 AM EDT Laboratory Lab Mobile Phlebotomy [facility] [address] [place] [address] Mvmg, Gml Mobile Home Draw [address] [place] [address] 03/18/2024 7:05 AM EST Laboratory Lab Mobile Phlebotomy [facility] [address] [place], [place] [address] Mvmg, Gml Mobile Home Draw [address] [place] [address] 03/25/2024 7:05 AM EST Laboratory Lab Mobile Phlebotomy [facility] [address] [place] [address] Mvmg, Gml Mobile Home Draw [address] [place] [address] 04/01/2024 7:00 AM EST Laboratory Lab Mobile Phlebotomy [facility] [address] [place] [address] Mvmg, Gml Mobile Home Draw [address] [place] [address] 04/08/2024 7:05 AM EST Laboratory Lab Mobile Phlebotomy [facility] [address] [place] [address] Mvmg, Gml Mobile Home Draw [address] [place] [address] 04/15/2024 7:05 AM EST Laboratory Lab Mobile Phlebotomy [facility] [address] [place] [address] Mvmg, Gml Mobile Home Draw [address] [place] [address] 04/22/2024 7:05 AM EST Laboratory Lab Mobile Phlebotomy [facility] [address] [place] [address] Mvmg, Gml Mobile Home Draw [address] [place] [address] 04/29/2024 7:05 AM EST Laboratory Lab Mobile Phlebotomy [facility] [address] [place] [address] Mvmg, Gml Mobile Home Draw [address] [facility] [place] [address] 05/05/2024 7:05 AM EST Laboratory Lab Mobile Phlebotomy [facility] [address] [place] [address] Mvmg, Gml Mobile Home Draw [address] [place] [address] 09/02/2024 8:20 AM EDT Office Visit Pulmonary Medicine, [address] [place] [address] Ish Caba MD [address] [place] [address] 05/03/2025 7:40 AM EST Office Visit Dermatology [address] [place] [address] Albina Romo PA-C [address] [place] [address] [place] [address] Health Maintenance Due Date Last Done Comments [...] this encounter Medical Devices Implanted Type Area Management Assistant Device Identifier Shelf Expiration Date Model / Serial / Lot Mesh Plug Xlarge [id number] - [id number] Implanted:Qty: 1 on 12/09/2020 by John Zaragoza MD at OR [facility] Left: Groin CR BARD : DAVOL 05/09/2023 [id number] / / [id number] documented as of this encounter Visit Diagnoses [...] Power of Attor coco? No Care Teams Modeling Director Relationship Specialty Start Date End Date Michael Collins MD [address] [facility] [place] [address] PCP - General Internal Medicine 03/01/14 documented as of this encounter
--- OUTSIDE RECORDS SUMMARY | 2024-03-26 16:22 | External Medical Summary | Summary of Care ---
Author Name Unknown Organization [facility] Address [address] [facility] [place] [address] Phone [phone] Care Team Providers Care Title I Coordinator Name Role Phone Michael Collins MD Primary Care Provi zehra Reason for Visit * Reason Comments Chemotherapy Cytoxan. * Episode Based Medications (Routine) - Authorized Specialty Diagnoses / Procedures Referred By Contac t Referred To Contact Diagnoses Multiple myeloma not having achieved remission (HCC) Procedures [place] DARATUMUMAB, HYALURONIDASE [place] INJ, CYCLOPHOSPHAMIDE, NOS Morgan Vásquez MD [address] [place] [address] Anc Hem/Onc Amena You DEPT CLOSED - 03/26/23 200 [facility] [place] [address] Referral ID Status Reason Start Date Expiration Date V isits Requested Visits Authorized [id number] Authorized 05/28/2022 05/12/2099 99 99 Encounter Details Date Type Department Care Team (Latest Contact Info) Description 12/19/2023 8:45 AM EDT Hem/Onc Treatment Hematology/Oncolog y Treatment, [place] [address] [place] [address] Kenyatta, Chair 9 Hem Onc Scenery 200 Amena Osman [place] [address] Multiple myeloma not having achieved remission (HCC)*; Encounter for antineoplastic chemotherapy Allergies No known active allergiesdocumented as of this encounter (statuses as of 01/18/2024) Medications Medication Sig Dispensed Refills Start Date End Date Status THEOPHYLLINE ER 450 MG PO MW79Winwgioaszv:2 tablet at bedtime Take by mouth. Indications: [...] nostril at bedtime. PATIENT INFORMATION: Kris Galvin [address] [place] [address] [employer]: [employer] ORDER: Please start nocturnal oxygen via nasal [...] signed) Ish Caba MD Pulmonary Medicine, [address] [place] [address] [place] [facility] Medical License Number: [id number] 1 Each 3 Active metFORMIN HCl ER [...] mRNA, LNP-s, No Pre serve, 2-Dose Series ([email or web address]) 01/17/2021,08/05/2020,07/08/2020 COVID-19, LNP-s, No Preserve , Bryant-sucrose, [...] EDT Laboratory Lab Mobile Phlebotomy [facility] [address] [place], [place] [address] Mvmg, Gml Mobile Home Draw [address] [place] [address] 01/23/2024 8:30 AM EDT Hem[facility] 200 [facility] [place] [phone] Kenyatta, Chair 9 Hem Onc Scenery 200 [facility] [place] [address] 01/29/2024 7:05 AM EDT Laboratory Lab Mobile Phlebotomy [facility] [address] [place] [address] Mvmg, Gml Mobile Home Draw [address] [place] [address] 01/30/2024 8:30 AM EDT Hem/Onc Treatment Hematology/Oncology Treatment, [place] 200 [facility] [place], [place] [phone] Kenyatta, Chair 5 Hem Onc Scenery [address] [facility] [address] [place], [place] [address] 02/05/2024 8:40 AM EDT Office Visit Neurology [facility] [place] 200 [facility] [place] [address] Octavia Goins PA-C 200 [facility] [place] [address] 02/06/2024 8:30 AM EDT Hem/Onc Treatment Hematology/Oncology Treatment, [place] 200 [facility], [place] [phone] Kenyatta, Chair 4 Hem Onc Scenery [address] [facility] [address] [place], [place] [address] 02/07/2024 8:00 AM EDT Office Visit Rheumatology [address] [place] [phone] Darnell Higgins MD 2520 [place] [address] 02/12/2024 7:05 AM EDT Laboratory Lab Mobile Phlebotomy [facility] 2520 [place] [address] Mvmg, Gml Mobile Home Draw 2520 [place] [address] 02/13/2024 8:30 AM EDT Hem/Onc Treatment Hematology/Oncology Treatment, [place] 200 [facility] [place] [phone] Kenyatta, Chair 4 Hem Onc Scenery 200 [place] [address] 02/19/2024 7:05 AM EDT Laboratory Lab Mobile Phlebotomy [facility] 2520 [place] [address] Mvmg, Gml Mobile Home Draw 2520 [place] [address] 02/20/2024 8:30 AM EDT Hem/Onc Treatment Hematology/Oncology Treatment, [place] 200 [facility] [place] [phone] Kenyatta, Chair 7 Hem Onc Scenery 200 [place] [address] 02/26/2024 7:05 AM EDT Laboratory Lab Mobile Phlebotomy [facility] 2520 [place] [address] Mvmg, Gml Mobile Home Draw 2520 [place] [address] 02/27/2024 8:30 AM EDT Hem/Onc Treatment Hematology/Oncology Treatment, [place] 200 [facility] [place] [phone] Kenyatta, Chair 9 Hem Onc Scenery 200 [place] [address] 03/04/2024 7:00 AM EDT Laboratory Lab Mobile Phlebotomy [facility] [address] [place] [address] Mvmg, Gml Mobile Home Draw 2520 [facility] [place], [place] [address] 03/05/2024 10:45 AM EDT Office Visit Hematology/Oncology [facility] [address] [place] [phone] Morgan Vásquez MD 200 [facility] [place], [place] [address] 03/05/2024 11:15 AM EDT Hem[facility] [address] [place], [place] [phone] Kenyatta, Chair 1 Hem Onc [facility] 200 [facility] [place], [place] [address] 03/11/2024 7:05 AM EDT Laboratory Lab Mobile Phlebotomy [facility] [address] [place], [place] [address] Mvmg, Gml Mobile Home Draw 2520 [facility] [place] [address] 03/18/2024 7:05 AM EST Laboratory Lab Mobile Phlebotomy [facility] [address] [employer] Cecile Osman [place], [place] [address] Mvmg, Gml Mobile Home Draw 2520 Gen [facility] [place] [address] 03/25/2024 7:05 AM EST Laboratory Lab Mobile Phlebotomy [facility] [address] [place] [address] Mvmg, Gml Mobile Home Draw [address] [place] [address] 04/01/2024 7:00 AM EST Laboratory Lab Mobile Phlebotomy [facility] [address] [place], [place] [address] Mvmg, Gml Mobile Home Draw [address] [place] [address] 04/08/2024 7:05 AM EST Laboratory Lab Mobile Phlebotomy [facility] [address] [place] [address] Mvmg, Gml Mobile Home Draw [address] [place] [address] 04/15/2024 7:05 AM EST Laboratory Lab Mobile Phlebotomy [facility] [address] [place] [address] Mvmg, Gml Mobile Home Draw [address] [place] [address] 04/22/2024 7:05 AM EST Laboratory Lab Mobile Phlebotomy [facility] [address] [place] [address] Mvmg, Gml Mobile Home Draw [address] [place] [address] 04/29/2024 7:05 AM EST Laboratory Lab Mobile Phlebotomy [facility] [address] [place] [address] Mvmg, Gml Mobile Home Draw [address] [place] [address] 05/05/2024 7:05 AM EST Laboratory Lab Mobile Phlebotomy [facility] [address] [place] [address] Mvmg, Gml Mobile Home Draw [address] [place] [address] 09/02/2024 8:20 AM EDT Office Visit Pulmonary Medicine, [facility] 132 [facility] [place] [address] Ish Caba MD [address] [place] [address] 05/03/2025 7:40 AM EST Office Visit Dermatology [address] [place] [phone] Albina Romo PA-C [address] [place] [address] [place] [address] Health Maintenance Due Date Last Done Comments [...] this encounter Medical Devices Implanted Type Area Frit Burner Device Identifier Shelf Expiration Date Model / Serial / Lot Mesh Plug Xlarge [id number] - [id number] Implanted:Qty: 1 on 12/09/2020 by John Zaragoza MD at OR [facility] Left: Groin CR BARD : DAVOL 05/09/2023 [id number] / / [id number] documented as of this encounter Visit Diagnoses [...] Power of Attor coco? No Care Teams Title I Coordinator Relationship Specialty Start Date End Date Michael Collins MD [address] [place] [address] [place] [address] PCP - General Internal Medicine 03/01/14 documented as of this encounter
--- OUTSIDE RECORDS SUMMARY | 2024-03-26 16:22 | External Medical Summary | Summary of Care ---
Author Name Unknown Organization [facility] Address [address] [facility] [place] [address] Phone [phone] Care Team Providers Care Service Person Name Role Phone Michael Collins MD Primary Care Provi zehra Reason for Visit * Reason Comments Chemotherapy Cytoxan/Darzalex Fas pro * Episode Based Medications (Routine) - Authorized Specialty Diagnoses / Procedures Referred By Contac t Referred To Contact Diagnoses Multiple myeloma not having achieved remission (HCC) Procedures [place] DARATUMUMAB, HYALURONIDASE [place] INJ, CYCLOPHOSPHAMIDE, NOS Morgan Vásquez MD 200 [facility] [place] [address] Anc Hem/Onc Amena You DEPT CLOSED - 03/26/23 200 [facility] [place] [address] Referral ID Status Reason Start Date Expiration Date V isits Requested Visits Authorized [id number] Authorized 05/28/2022 05/12/2099 99 99 Encounter Details Date Type Department Care Team (Latest Contact Info) Description 12/12/2023 11:45 AM EDT Hem/Onc Treatment Hematology/Oncology Treatment, [place] [address] [place] [address] Kenyatta, Chair 4 Hem On[address] [place] [address] Multiple myeloma not having achieved remission (HCC)*; Encounter for adjustment and management of vascular access device Allergies No known active allergiesdocumented as of this encounter (statuses as of 01/19/2024) Medications Medication Sig Dispensed Refills Start Date End Date Status THEOPHYLLINE ER 450 MG PO ZO76Bqezjjotawm:2 tablet at bedtime Take by mouth. Indications: [...] at bedtime. PATIENT INFORMATION: Kris Galvin [address] [place] [address] [employer]: [employer] ORDER: Please start nocturnal oxygen via nasal [...] (electronically signed) Ish Caba MD Pulmonary Medicine, [address] [address] [facility] Medical License Number: [id number] 1 Each 3 Active metFORMIN HCl ER [...] mRNA, LNP-s, No Pre serve, 2-Dose Series ([employer]) 01/17/2021,08/05/2020,07/08/2020 COVID-19, LNP-s, No Preserve , Bryant-sucrose, [...] Mobile Phlebotomy [facility] [address] [place] [address] Mvmg, Gml Mobile Home Draw [address] [place] [address] 01/23/2024 8:30 AM EDT Hem/Onc Treatment Hematology/Oncology Treatment, [address] [phone] Kenyatta, Chair 9 Hem Onc [address] [place] [address] 01/29/2024 7:05 AM EDT Laboratory Lab Mobile Phlebotomy [facility] [address] [place] [address] Mvmg, Gml Mobile Home Draw [address] [place] [address] 01/30/2024 8:30 AM EDT Hem/Onc Treatment Hematology/Oncology Treatment, [address] [phone] Kenyatta, Chair 5 Hem Onc Scenery 200 [facility] [place], [place] [address] 02/05/2024 8:40 AM EDT Office Visit Neurology [facility] 200 [facility] [place], [place] [address] Octavia Goins PA-C 200 [facility] [place], [place] [address] 02/06/2024 8:30 AM EDT Hem/Onc Treatment Hematology/Oncology Treatment, [place] 200 [facility], [place] [phone] Kenyatta, Chair 4 [facility] 200 [facility] [place], [place] [address] 02/07/2024 8:00 AM EDT Office Visit [address] [place] [phone] Darnell Higgins MD [address] [place], [place] [address] 02/12/2024 7:05 AM EDT Laboratory Lab Mobile Phlebotomy [facility] [address] [employer] [place] [address] Mvmg, Gml Mobile Home Draw [address] [place], [place] [address] 02/13/2024 8:30 AM EDT Hem/Onc Treatment Hematology/Oncology Treatment, [place] 200 [facility] [place], [place] [phone] Kenyatta, Chair 4 Hem Onc Scenery [address] [facility] [place] [address] 02/19/2024 7:05 AM EDT Laboratory Lab Mobile Phlebotomy [facility] [address] [place], [place] [address] Mvmg, Gml Mobile Home Draw [address] [place] [address] 02/20/2024 8:30 AM EDT Hem/Onc Treatment Hematology/Oncology Treatment, [place] 200 [place] [phone] Park, Chair 7 Hem Onc Scenery 200 [place] [address] 02/26/2024 7:05 AM EDT Laboratory Lab Mobile Phlebotomy [facility] [address] [place] [address] Mvmg, Gml Mobile Home Draw [address] [employer] [place], [place] [address] 02/27/2024 8:30 AM EDT Hem/Onc Treatment Hematology/Oncology Treatment, [place] 200 [place] [address] Kenyatta, Chair 9 Hem Onc Scenery 200 [place] [address] 03/04/2024 7:00 AM EDT Laboratory Lab Mobile Phlebotomy [facility] [address] [employer] [place], [place] [address] Mvmg, Gml Mobile Home Draw [address] [employer] [place], [place] [address] 03/05/2024 10:45 AM EDT Office Visit Hematology/Oncology [facility] 200 [facility], [place] [phone] Morgan Vásquez MD 200 [place] [address] 03/05/2024 11:15 AM EDT Hem[facility] 200 [place] [address] [place], Chair 1 Hem Onc Scenery 200 [place] [address] 03/11/2024 7:05 AM EDT Laboratory Lab Mobile Phlebotomy [facility] [address] [place] [address] Mvmg, Gml Mobile Home Draw 2520 [place] [address] 03/18/2024 7:05 AM EST Laboratory Lab Mobile Phlebotomy [facility] 2520 [place] [address] Mvmg, Gml Mobile Home Draw 2520 [place] [address] 03/25/2024 7:05 AM EST Laboratory Lab Mobile Phlebotomy [facility] 2520 [place] [address] Mvmg, Gml Mobile Home Draw 2520 [place] [address] 04/01/2024 7:00 AM EST Laboratory Lab Mobile Phlebotomy [facility] 2520 [place] [address] Mvmg, Gml Mobile Home Draw 2520 [place] [address] 04/08/2024 7:05 AM EST Laboratory Lab Mobile Phlebotomy [facility] 2520 [place] [address] Mvmg, Gml Mobile Home Draw 2520 [place] [address] 04/15/2024 7:05 AM EST Laboratory Lab Mobile Phlebotomy [facility] 2520 [place] [address] Mvmg, Gml Mobile Home Draw 2520 [place] [address] 04/22/2024 7:05 AM EST Laboratory Lab Mobile Phlebotomy [facility] 2520 [place] [address] Mvmg, Gml Mobile Home Draw 2520 [place] [address] 04/29/2024 7:05 AM EST Laboratory Lab Mobile Phlebotomy [facility] 2520 [place] [address] Mvmg, Gml Mobile Home Draw 2520 [place] [address] 05/05/2024 7:05 AM EST Laboratory Lab Mobile Phlebotomy [facility] 2520 [facility] [place], [place] [address] Mvmg, Gml Mobile Home Draw 4860 [facility] [place] [address] 09/02/2024 8:20 AM EDT Office Visit Pulmonary Medicine, [facility] [address] [place] [address] Ish Caba MD [address] [facility] [place] [address] 05/03/2025 7:40 AM EST Office Visit Dermatology [address] [place] [address] Albina Romo PA-C [address] [place] [address] [place] [address] Health Maintenance Due Date Last Done Comments [...] this encounter Medical Devices Implanted Type Area Filler In Device Identifier Shelf Expiration Date Model / Serial / Lot Mesh Plug Xlarge [id number] - [id number] Implanted:Qty: 1 on 12/09/2020 by John Zaragoza MD at OR [facility] Left: Groin CR BARD : DAVOL 05/09/2023 [id number] / / [id number] documented as of this encounter Visit Diagnoses [...] 517.4 mL/hr Daratumumab-hyaluronida -fihj (Darzalex Faspro) 1800 mg-42826 units/ 15 ml subcut inj 15 mL, [...] 50 mg 50 mg, Oral, ONCE, On Liilbeth 12/12/23 at 1230, For 1 dose Given [...] Power of Attor coco? No Care Teams Service Person Relationship Specialty Start Date End Date Michael Collins MD [address] [place] [address] [place] [address] PCP - General Internal Medicine 03/01/14 documented as of this encounter
--- OUTSIDE RECORDS SUMMARY | 2024-03-26 16:22 | External Medical Summary | Summary of Care ---
Author Name Unknown Organization [facility] Address [address] [facility] [place] [address] Phone [phone] Care Team Providers Care Inkjet Operator Name Role Phone Michael Collins MD Primary Care Provi zehra Reason for Visit * Reason Comments Chemotherapy Cytoxan. * Episode Based Medications (Routine) - Authorized Specialty Diagnoses / Procedures Referred By Contac t Referred To Contact Diagnoses Multiple myeloma not having achieved remission (HCC) Procedures [place] DARATUMUMAB, HYALURONIDASE [place] INJ, CYCLOPHOSPHAMIDE, NOS Morgan Vásquez MD [address] [place] [address] Anc Hem/Onc Amena You DEPT CLOSED - 03/26/23 200 [facility] [place] [address] Referral ID Status Reason Start Date Expiration Date V isits Requested Visits Authorized [id number] Authorized 05/28/2022 05/12/2099 99 99 Encounter Details Date Type Department Care Team (Latest Contact Info) Description 12/26/2023 9:00 AM EDT Hem/Onc Treatment Hematology/Oncolog y Treatment, [place] [address] [place] [address] Kenyatta, Chair 10 Hem Onc Scenery 200 Amena Osman [place] [address] Multiple myeloma not having achieved remission (HCC)*; Encounter for antineoplastic chemotherapy Allergies No known active allergiesdocumented as of this encounter (statuses as of 01/19/2024) Medications Medication Sig Dispensed Refills Start Date End Date Status THEOPHYLLINE ER 450 MG PO MS13Vkvntafehtl:2 tablet at bedtime Take by mouth. Indications: [...] nostril at bedtime. PATIENT INFORMATION: Kris Galvin [address] [place] [address] [employer]: [employer] ORDER: Please start nocturnal oxygen via nasal [...] (electronically signed) Ish Caba MD Pulmonary Medicine, [address] [place] [address] [place] [facility] Medical License Number: [id number] 1 Each 3 Active metFORMIN HCl ER [...] mRNA, LNP-s, No Pre serve, 2-Dose Series ([employer]) 01/17/2021,08/05/2020,07/08/2020 COVID-19, LNP-s, No Preserve , Bryant-sucrose, [...] Laboratory Lab Mobile Phlebotomy [facility] [address] [facility] [place] [address] Mvmg, Gml Mobile Home Draw [address] [facility] [place] [address] 01/23/2024 8:30 AM EDT Hem/Onc Treatment Hematology/Oncology Treatment, [place] 200 [facility] [place] [phone] Kenyatta, Chair 9 Hem Onc Scenery 200 [facility] [place] [address] 01/29/2024 7:05 AM EDT Laboratory Lab Mobile Phlebotomy [facility] [address] [place] [address] Mvmg, Gml Mobile Home Draw [address] [place] [address] 01/30/2024 8:30 AM EDT Hem/Onc Treatment Hematology/Oncology Treatment, [place] 200 [facility] [place] [phone] Kenyatta, Chair 5 Hem Onc Scenery 200 [facility] [place] [address] 02/05/2024 8:40 AM EDT [facility] [place] 200 [facility] [place] [address] Octavia Goins PA-C 200 [facility] [place] [address] 02/06/2024 8:30 AM EDT Hem/Onc Treatment Hematology/Oncology Treatment, [place] 200 [facility] [place] [phone] Kenyatta, Chair 4 Hem Onc Scenery 200 [facility] [place] [address] 02/07/2024 8:00 AM EDT Office Visit Rheumatology [address] [place] [phone] Darnell Higgins MD 2520 [place] [address] 02/12/2024 7:05 AM EDT Laboratory Lab Mobile Phlebotomy [facility] 2520 [place] [address] Mvmg, Gml Mobile Home Draw 2520 [place] [address] 02/13/2024 8:30 AM EDT Hem[facility] 200 [facility] [place] [address] Kenyatta, Chair 4 Hem Onc Scenery 200 [facility] [place] [address] 02/19/2024 7:05 AM EDT Laboratory Lab Mobile Phlebotomy [facility] 2520 [place] [address] Mvmg, Gml Mobile Home Draw 2520 [place] [address] 02/20/2024 8:30 AM EDT Hem[facility]Onc [facility] 200 [facility] [place] [phone] Kenyatta, Chair 7 Hem Onc Scenery 200 [facility] [place] [address] 02/26/2024 7:05 AM EDT Laboratory Lab Mobile Phlebotomy [facility] 2520 [place] [address] Mvmg, Gml Mobile Home Draw 2520 [place] [address] 02/27/2024 8:30 AM EDT Hem/Onc Treatment Hematology/Oncology Treatment, [place] 200 [facility] [place] [address] Kenyatta, Chair 9 Hem Onc Scenery 200 [facility] [place] [address] 03/04/2024 7:00 AM EDT Laboratory Lab Mobile Phlebotomy [facility] [address] [place] [address] Mvmg, Gml Mobile Home Draw [address] [place], [place] [address] 03/05/2024 10:45 AM EDT Office Visit Hematology/Oncology [facility] 200 [facility] [place] [address] Morgan Vásquez MD 200 [facility] [place] [address] 03/05/2024 11:15 AM EDT Hem/Onc Treatment Hematology/Oncology Treatment, [place] 200 [facility] [place] [phone] Kenyatta, Chair 1 Hem Onc [facility] 200 [facility] [place] [address] 03/11/2024 7:05 AM EDT Laboratory Lab Mobile Phlebotomy [facility] [address] [place] [address] Mvmg, Gml Mobile Home Draw [address] [place] [facility] [place] [address] 03/18/2024 7:05 AM EST Laboratory Lab Mobile Phlebotomy [facility] [address] [place], [place] [address] Mvmg, Gml Mobile Home Draw [address] [facility] [place] [address] 03/25/2024 7:05 AM EST Laboratory Lab Mobile Phlebotomy [facility] [address] [place] [address] Mvmg, Gml Mobile Home Draw [address] [facility] [place] [address] 04/01/2024 7:00 AM EST Laboratory Lab Mobile Phlebotomy [facility] [address] [place] [address] Mvmg, Gml Mobile Home Draw [address] [facility] [place] [address] 04/08/2024 7:05 AM EST Laboratory Lab Mobile Phlebotomy [facility] [address] [place] [address] Mvmg, Gml Mobile Home Draw [address] [place] [address] 04/15/2024 7:05 AM EST Laboratory Lab Mobile Phlebotomy [facility] [address] [place] [address] Mvmg, Gml Mobile Home Draw [address] [place] [address] 04/22/2024 7:05 AM EST Laboratory Lab Mobile Phlebotomy [facility] [address] [place] [address] Mvmg, Gml Mobile Home Draw [address] [place] [address] 04/29/2024 7:05 AM EST Laboratory Lab Mobile Phlebotomy [facility] [address] [place] [address] Mvmg, Gml Mobile Home Draw [address] [place] [address] 05/05/2024 7:05 AM EST Laboratory Lab Mobile Phlebotomy [facility] [address] [place] [address] Mvmg, Gml Mobile Home Draw [address] [place] [address] 09/02/2024 8:20 AM EDT Office Visit Pulmonary Medicine, [address] [place] [address] Ish Caba MD [address] [place] [address] 05/03/2025 7:40 AM EST Office Visit Dermatology [address] [place] [address] Albina Romo PA-C [address] [place] [address] [place] [address] Health Maintenance Due Date Last Done Comments [...] this encounter Medical Devices Implanted Type Area Estimator Binding Device Identifier Shelf Expiration Date Model / Serial / Lot Mesh Plug Xlarge [id number] - [id number] Implanted:Qty: 1 on 12/09/2020 by John Zaragoza MD at OR [facility] Left: Groin CR BARD : DAVOL 05/09/2023 [id number] / / [id number] documented as of this encounter Visit Diagnoses [...] Power of Attor coco? No Care Teams Inkjet Operator Relationship Specialty Start Date End Date Michael Collins MD 141 [facility] [place] [address] PCP - General Internal Medicine 03/01/14 documented as of this encounter
--- OUTSIDE RECORDS SUMMARY | 2024-03-26 16:22 | External Medical Summary | Summary of Care ---
Author Name Unknown Organization [facility] Address [address] [facility] [place] [address] Phone [phone] Care Team Providers Care Bicycle Assembler Name Role Phone Michael Collins MD Primary Care Provi zehra Reason for Visit * Reason Comments Chemotherapy Cytoxan. * Episode Based Medications (Routine) - Authorized Specialty Diagnoses / Procedures Referred By Contac t Referred To Contact Diagnoses Multiple myeloma not having achieved remission (HCC) Procedures HI DARATUMUMAB, HYALURONIDASE HI INJ, CYCLOPHOSPHAMIDE, NOS Morgan Vásquez MD [address] [place] [address] Anc Hem/Onc Amena You DEPT CLOSED - 03/26/23 200 [facility] [place] [address] Referral ID Status Reason Start Date Expiration Date V isits Requested Visits Authorized [id number] Authorized 05/28/2022 05/12/2099 99 99 Encounter Details Date Type Department Care Team (Latest Contact Info) Description 12/19/2023 8:45 AM EDT Hem/Onc Treatment Hematology/Oncolog y Treatment, [place] [address] [place] [address] Kenyatta, Chair 9 Hem Onc Scenery [address] Amena [place] [place] [address] Multiple myeloma not having achieved remission (HCC)*; Encounter for antineoplastic chemotherapy Allergies No known active allergiesdocumented as of this encounter (statuses as of 01/18/2024) Medications Medication Sig Dispensed Refills Start Date End Date Status THEOPHYLLINE ER 450 MG PO [id number]:2 tablet at bedtime Take by mouth. Indications: [...] nostril at bedtime. PATIENT INFORMATION: Kris Galvin [address] [place] [address] [employer]: [email or web address] ORDER: Please start nocturnal oxygen via nasal [...] signed) Ish Caba MD Pulmonary Medicine, [address] [place] [address] [place] [facility] Medical License Number: [id number] 1 Each 3 Active metFORMIN HCl ER [...] mRNA, LNP-s, No Pre serve, 2-Dose Series ([employer]) 01/17/2021,08/05/2020,07/08/2020 COVID-19, LNP-s, No Preserve , Bryant-sucrose, [...] EDT Laboratory Lab Mobile Phlebotomy [facility] [address] [place], [place] [address] Mvmg, Gml Mobile Home Draw [address] [place] [address] 01/23/2024 8:30 AM EDT Hem[facility] 200 [facility] [place] [phone] Kenyatta, Chair 9 Hem Onc Scenery 200 [facility] [place] [address] 01/29/2024 7:05 AM EDT Laboratory Lab Mobile Phlebotomy [facility] [address] [place] [address] Mvmg, Gml Mobile Home Draw [address] [place] [address] 01/30/2024 8:30 AM EDT Hem/Onc Treatment Hematology/Oncology Treatment, [place] 200 [facility] [place], [place] [phone] Kenyatta, Chair 5 Hem Onc Scenery [address] [facility] [address] [place], [place] [address] 02/05/2024 8:40 AM EDT Office Visit Neurology [facility] [place] 200 [facility] [place] [address] Octavia Goins PA-C 200 [facility] [place] [address] 02/06/2024 8:30 AM EDT Hem/Onc Treatment Hematology/Oncology Treatment, [place] 200 [facility], [place] [phone] Kenyatta, Chair 4 Hem Onc Scenery [address] [facility] [address] [place], [place] [address] 02/07/2024 8:00 AM EDT Office Visit Rheumatology [address] [place] [phone] Darnell Higgins MD [address]20 [place] [address] 02/12/2024 7:05 AM EDT Laboratory Lab Mobile Phlebotomy [facility] [address] [place] [address] Mvmg, Gml Mobile Home Draw [address] [place] [address] 02/13/2024 8:30 AM EDT Hem/Onc Treatment Hematology/Oncology Treatment, [place] 200 [facility] [phone] Kenyatta, Chair 4 Hem Onc Scenery 200 [place] [address] 02/19/2024 7:05 AM EDT Laboratory Lab Mobile Phlebotomy [facility] [address] [place] [address] Mvmg, Gml Mobile Home Draw [address] [place] [address] 02/20/2024 8:30 AM EDT Hem/Onc Treatment Hematology/Oncology Treatment, [place] 200 [facility] [phone] Kenyatta, Chair 7 Hem Onc Scenery 200 [place] [address] 02/26/2024 7:05 AM EDT Laboratory Lab Mobile Phlebotomy [facility] [address] [place] [address] Mvmg, Gml Mobile Home Draw [address] [place] [address] 02/27/2024 8:30 AM EDT Hem/Onc Treatment Hematology/Oncology Treatment, [place] 200 [facility] [phone] Kenyatta, Chair 9 Hem Onc Scenery 200 [place] [address] 03/04/2024 7:00 AM EDT Laboratory Lab Mobile Phlebotomy [facility] [address] [place] [address] Mvmg, Gml Mobile Home Draw 2520 [facility] [place], [place] [address] 03/05/2024 10:45 AM EDT Office Visit Hematology/Oncology [facility] [address] [place] [phone] Morgan Vásquez MD 200 [facility] [place], [place] [address] 03/05/2024 11:15 AM EDT Hem[facility] [address] [place], [place] [phone] Kenyatta, Chair 1 Hem Onc [facility] 200 [facility] [place], [place] [address] 03/11/2024 7:05 AM EDT Laboratory Lab Mobile Phlebotomy [facility] [address] [place], [place] [address] Mvmg, Gml Mobile Home Draw 2520 [facility] [place] [address] 03/18/2024 7:05 AM EST Laboratory Lab Mobile Phlebotomy [facility] [address] [place], [place] [address] Mvmg, Gml Mobile Home Draw 25[address] [facility] [place] [address] 03/25/2024 7:05 AM EST Laboratory Lab Mobile Phlebotomy [facility] [address] [place] [address] Mvmg, Gml Mobile Home Draw [address] [place] [address] 04/01/2024 7:00 AM EST Laboratory Lab Mobile Phlebotomy [facility] [address] [place], [place] [address] Mvmg, Gml Mobile Home Draw [address] [place] [address] 04/08/2024 7:05 AM EST Laboratory Lab Mobile Phlebotomy [facility] [address] [place] [address] Mvmg, Gml Mobile Home Draw [address] [place] [address] 04/15/2024 7:05 AM EST Laboratory Lab Mobile Phlebotomy [facility] [address] [place] [address] Mvmg, Gml Mobile Home Draw [address] [place] [address] 04/22/2024 7:05 AM EST Laboratory Lab Mobile Phlebotomy [facility] [address] [place] [address] Mvmg, Gml Mobile Home Draw [address] [place] [address] 04/29/2024 7:05 AM EST Laboratory Lab Mobile Phlebotomy [facility] [address] [place] [address] Mvmg, Gml Mobile Home Draw [address] [place] [address] 05/05/2024 7:05 AM EST Laboratory Lab Mobile Phlebotomy [facility] [address] [place] [address] Mvmg, Gml Mobile Home Draw [address] [place] [place] [address] 09/02/2024 8:20 AM EDT Office Visit Pulmonary Medicine, [facility] 132 [facility] [place] [address] Ish Caba MD [address] [place] [address] 05/03/2025 7:40 AM EST Office Visit Dermatology [address] [place] [id number] Albina Romo PA-C [address] [place] [address] [place] [address] Health Maintenance Due Date Last Done Comments [...] this encounter Medical Devices Implanted Type Area Truck Trailer Final Inspector Device Identifier Shelf Expiration Date Model / Serial / Lot Mesh Plug Xlarge [id number] - [id number] Implanted:Qty: 1 on 12/09/2020 by John Zaragoza MD at OR [facility] Left: Groin CR BARD : DAVOL 05/09/2023 [id number] / / [id number] documented as of this encounter Visit Diagnoses [...] Power of Attor coco? No Care Teams Bicycle Assembler Relationship Specialty Start Date End Date Michael Collins MD [address] [place] [address] [place] [address] PCP - General Internal Medicine 03/01/14 documented as of this encounter
--- OUTSIDE RECORDS SUMMARY | 2024-03-26 16:23 | External Medical Summary | Summary of Care ---
Author Name Unknown Organization [facility] [address] [facility] [place] [address] Phone [phone] Care Team Providers Care Guitar Player Name Role Phone Michael Collins MD Primary Care Provi zehra Reason for Visit * Reason Comments Chemotherapy Cytoxan/Darzalex Fas pro * Episode Based Medications (Routine) - Authorized Specialty Diagnoses / Procedures Referred By Contac t Referred To Contact Diagnoses Multiple myeloma not having achieved remission (HCC) Procedures DC DARATUMUMAB, HYALURONIDASE DC INJ, CYCLOPHOSPHAMIDE, NOS Morgan Vásquez MD [address] [place] [address] Anc Hem/Onc Amena You DEPT CLOSED - 03/26/23 200 [facility] [place] [address] Referral ID Status Reason Start Date Expiration Date V isits Requested Visits Authorized [id number] Authorized 05/28/2022 05/12/2099 99 99 Encounter Details Date Type Department Care Team (Latest Contact Info) Description 01/09/2024 8:30 AM EDT Hem/Onc Treatment Hematology/Oncolog y Treatment, [place] [address] [place] [phone] Kenyatta, Chair 9 Hem Onc Scenery 200 Amena [place] [place] [address] Multiple myeloma not having achieved remission (HCC)*; Encounter for antineoplastic chemotherapy Allergies No known active allergiesdocumented as of this encounter (statuses as of 01/17/2024) Medications Medication Sig Dispensed Refills Start Date End Date Status THEOPHYLLINE ER 450 MG PO [id number]:2 tablet at bedtime Take by mouth. Indications: [...] nostril at bedtime. PATIENT INFORMATION: Kris Galvin [address] [place] [address] [employer]: [email or web address] ORDER: Please start nocturnal oxygen via nasal [...] signed) Ish Caba MD Pulmonary Medicine, [address] [place] [address] [place] [facility] Medical License Number: [id number] 1 Each 3 Active metFORMIN HCl ER [...] as of this encounter (statuses as of 01/17/2024) Active Problems Problem Noted Date Diagnosed Date [...] as of this encounter (statuses as of 01/17/2024) Resolved Problems Problem Noted Date Diagnosed Date Resolved Date Asthma in remission 08/28/2022 08/29/19 Asthma, mild persistent 08/28/202208/11 Asthma, severe persistent 08/28/2022 Stem cell transplant candidate 08/17/2019 09/02/2019 documented as of this encounter (statuses as of 01/17/2024) Immunizations Name Administration Dates Next Due COVID-19 mRNA, LNP-s, No Pre serve, 2-Dose Series (DNA Guide) 01/17/2021,08/05/2020,07/08/2020 COVID-19, LNP-s, No Preserve , Bryant-sucrose, Ages 12+ (DNA Guide) 09/26/2021 DTaP Dipth/Tet/Acell Pertussis (Infanrix), Peds 02/23/2021,11/11/2020,09/09/2020 [...] Mobile Phlebotomy [facility] [address] [place] [address] [address] Mvmg, Gml Mobile Home Draw [address] [place] [address] 01/23/2024 8:30 AM EDT Hem/Onc Treatment Hematology/Oncology Treatment, [place] 200 [facility] [place] [phone] Kenyatta, Chair 9 Hem Onc [place] [address] [address] 01/29/2024 7:05 AM EDT Laboratory Lab Mobile Phlebotomy [facility] [address] [place] [address] Mvmg, Gml Mobile Home Draw [address] [place] [address] 01/30/2024 8:30 AM EDT Hem[facility] 200 [facility] [place] [phone] [place], Chair 5 Hem Onc [place] [address] [address] 02/05/2024 8:40 AM EDT Office Visit Neurology [facility] [place] [address] [place] [address] Octavia Goins PA-C 200 [facility] [place] [address] 02/06/2024 8:30 AM EDT Hem/Onc Treatment Hematology/Oncology Treatment, [place] 200 [facility], [place] [phone] [place], Chair 4 Hem Onc Scenery 200 [facility] [place], [place] [address] 02/07/2024 8:00 AM EDT Office Visit Rheumatology [address] [place] [phone] Darnell Higgins MD [address] [place], [place] [address] 02/12/2024 7:05 AM EDT Laboratory Lab Mobile Phlebotomy [facility] [address] [place], [place] [address] Mvmg, Gml Mobile Home Draw [address] [place], [place] [address] 02/13/2024 8:30 AM EDT Hem/Onc Treatment Hematology/Oncology Treatment, [place] 200 [facility], [place] [phone] Kenyatta, Chair 4 Hem Onc Scenery 200 [facility] [place], [place] [address] 02/19/2024 7:05 AM EDT Laboratory Lab Mobile Phlebotomy [facility] [address] [place], [place] [address] Mvmg, Gml Mobile Home Draw [address] [place] [address] 02/20/2024 8:30 AM EDT Hem/Onc Treatment Hematology/Oncology Treatment, [place] 200 [facility] [phone] Kenyatta, Chair 7 Hem Onc Scenery 200 [facility] [place], [place] [address] 02/26/2024 7:05 AM EDT Laboratory Lab Mobile Phlebotomy [facility] [address] [place] [address] Mvmg, Gml Mobile Home Draw 2520 [place] [address] 02/27/2024 8:30 AM EDT Hem[facility]Onc [facility] 200 [facility] [place] [phone] [place], Chair 9 Hem Onc Scenery 200 [place] [address] 03/04/2024 7:00 AM EDT Laboratory Lab Mobile Phlebotomy [facility] [address] [place] [address] Mvmg, Gml Mobile Home Draw 2520 [facility] [place], [place] [address] 03/05/2024 10:45 AM EDT Office Visit Hematology/Oncology [facility] 200 [place] [phone] Morgan Vásquez MD 200 [place] [address] 03/05/2024 11:15 AM EDT Hem/Onc [facility] 200 [facility] [place] [address] Kenyatta, Chair 1 Hem Onc Scenery 200 [place] [address] 03/11/2024 7:05 AM EDT Laboratory Lab Mobile Phlebotomy [facility] [address] [place] [address] Mvmg, Gml Mobile Home Draw [address] [place] [address] 03/18/2024 7:05 AM EST Laboratory Lab Mobile Phlebotomy [facility] [address] [place] [address] Mvmg, Gml Mobile Home Draw [address] [place] [address] 03/25/2024 7:05 AM EST Laboratory Lab Mobile Phlebotomy [facility] [address] [place] [address] Mvmg, Gml Mobile Home Draw [address] [place] [address] 04/01/2024 7:00 AM EST Laboratory Lab Mobile Phlebotomy [facility] [address] [place] [address] Mvmg, Gml Mobile Home Draw [address] [place] [address] 04/08/2024 7:05 AM EST Laboratory Lab Mobile Phlebotomy [facility] [address] [place] [address] Mvmg, Gml Mobile Home Draw [address] [place] [address] 04/15/2024 7:05 AM EST Laboratory Lab Mobile Phlebotomy [facility] [address] [place] [address] Mvmg, Gml Mobile Home Draw 2520 [place] [address] 04/22/2024 7:05 AM EST Laboratory Lab Mobile Phlebotomy [facility] [address] [place] [address] Mvmg, Gml Mobile Home Draw [address] [place] [address] 04/29/2024 7:05 AM EST Laboratory Lab Mobile Phlebotomy [facility] [address] [place] [address] Mvmg, Gml Mobile Home Draw [address] [place] [address] 05/05/2024 7:05 AM EST Laboratory Lab Mobile Phlebotomy [facility] [address] [place] [address] Mvmg, Gml Mobile Home Draw [address] [place] [address] 09/02/2024 8:20 AM EDT Office Visit Pulmonary Medicine, [address] [place] [address] Ish Caba MD [address] [facility] [place] [address] 05/03/2025 7:40 AM EST Office Visit Dermatology [address] [place] [address] Albina Romo PA-C [address] [place] [address] [place] [address] Health Maintenance Due Date Last Done Comments [...] this encounter Medical Devices Implanted Type Area Hearing Aid Assembly Supervisor Device Identifier Shelf Expiration Date Model / Serial / Lot Mesh Plug Xlarge [id number] - [id number] Implanted:Qty: 1 on 12/09/2020 by John Zaragoza MD at OR [facility] Left: Groin CR BARD : DAVOL 05/09/2023 [id number] / / [id number] documented as of this encounter Visit Diagnoses Diagnosis Multiple myeloma not having achieved remission (HCC)- Primary Multiple myeloma, without mention of having achieved remission Encounter for antineoplastic chemotherapy documented in this encounter Administered Medications Inactive Administered Medications - up to 3 most recent administrations Medication Order MAR Action Action Date Dose Rate Site Acetaminophen (Tylenol) tab 650 mg 650 mg, Oral, ONCE, On Sat01/09/24 at 0945, For 1 dose, Maximum of [...] if not tolerated., ONCE, 1 dose, On Sat01/09/24 at 0915 Start Infusion 01/09/2024 10:07 AM EDT 740 mg 517.4 mL/hr Daratumumab-hyaluronida se-fihj (Darzalex Faspro) 1800 mg-50654 units/ 15 ml subcut inj 15 mL, Subcutaneous, ONCE, On Sat01/09/24 at 1015, For 1 dose, Inject subcutanteously into abdomen over 3 to 5 minutes Given 01/09/2024 10:16 AM EDT 15 mL Abdomen Right Lower dexAMETHasone (Decadron) tab 40 mg 40 mg, Oral, ONCE, On Sat01/09/24 at 0915, For 1 dose Given 01/09/2024 [...] Power of Attor coco? No Care Teams Guitar Player Relationship Specialty Start Date End Date Michael Collins MD [address] [place] [address] [place] [address] PCP - General Internal Medicine 03/01/14 documented as of this encounter
--- OUTSIDE RECORDS SUMMARY | 2024-03-26 16:23 | External Medical Summary | Summary of Care ---
Author Name Unknown Organization [facility] Address [address] [facility] [place] [address] Phone [phone] Care Team Providers Care Die Cutter Operator Name Role Phone Michael Collins MD Primary Care Provi zehra Reason for Visit * Reason Comments Chemotherapy Cytoxan. * Episode Based Medications (Routine) - Authorized Specialty Diagnoses / Procedures Referred By Contac t Referred To Contact Diagnoses Multiple myeloma not having achieved remission (HCC) Procedures CO DARATUMUMAB, HYALURONIDASE CO INJ, CYCLOPHOSPHAMIDE, NOS Morgan Vásquez MD [address] [place] [address] Anc Hem/Onc Amena You DEPT CLOSED - 03/26/23 200 [facility] [place] [address] Referral ID Status Reason Start Date Expiration Date V isits Requested Visits Authorized [id number] Authorized 05/28/2022 05/12/2099 99 99 Encounter Details Date Type Department Care Team (Latest Contact Info) Description 12/19/2023 8:45 AM EDT Hem/Onc Treatment Hematology/Oncolog y Treatment, [place] [address] [place] [address] Kenyatta, Chair 9 Hem Onc Scenery 200 Amena Osman [place] [address] Multiple myeloma not having achieved remission (HCC)*; Encounter for antineoplastic chemotherapy Allergies No known active allergiesdocumented as of this encounter (statuses as of 01/18/2024) Medications Medication Sig Dispensed Refills Start Date End Date Status THEOPHYLLINE ER 450 MG PO [id number]:2 tablet at bedtime Take by mouth. Indications: [...] by mouth. Active Multiple Vitamins-Minerals ([facility] IMMUNITY SUPPORT) CHEW Take by mouth. Active [...] nostril at bedtime. PATIENT INFORMATION: Kris Galvin [address] [place] [address] [employer]: [employer] ORDER: Please start nocturnal oxygen via nasal [...] signed) Ish Caba MD Pulmonary Medicine, [address] [place] [address] [place] [facility] Medical License Number: [id number] 1 Each 3 Active metFORMIN HCl ER [...] mRNA, LNP-s, No Pre serve, 2-Dose Series ([employer]) 01/17/2021,08/05/2020,07/08/2020 COVID-19, LNP-s, No Preserve , Bryant-sucrose, [...] EDT Laboratory Lab Mobile Phlebotomy [facility] [address] [place], [place] [address] Mvmg, Gml Mobile Home Draw [address] [place] [address] 01/23/2024 8:30 AM EDT Hem[facility] 200 [facility] [place] [phone] Kenyatta, Chair 9 Hem Onc Scenery 200 [facility] [place] [address] 01/29/2024 7:05 AM EDT Laboratory Lab Mobile Phlebotomy M[facility] [address] [place] [address] Mvmg, Gml Mobile Home Draw [address] [place] [address] 01/30/2024 8:30 AM EDT Hem/Onc Treatment Hematology/Oncology Treatment, [place] 200 [facility] [place], [place] [phone] Kenyatta, Chair 5 Hem Onc Scenery [address] [facility] [address] [place], [place] [address] 02/05/2024 8:40 AM EDT Office Visit Neurology [facility] [place] 200 [facility] [place] [address] Octavia Goins PA-C 200 [facility] [place] [address] 02/06/2024 8:30 AM EDT Hem/Onc Treatment Hematology/Oncology Treatment, [place] 200 [facility], [place] [phone] Kenyatta, Chair 4 Hem Onc Scenery [address] [facility] [address] [place], [place] [address] 02/07/2024 8:00 AM EDT Office Visit Rheumatology [address] [place] [phone] Darnell Higgins MD 2520 [place] [address] 02/12/2024 7:05 AM EDT Laboratory Lab Mobile Phlebotomy M[facility] [address]20 [place] [address] Mvmg, Gml Mobile Home Draw 2520 [place] [address] 02/13/2024 8:30 AM EDT Hem/Onc Treatment Hematology/Oncology Treatment, [place] 200 [place] [phone] Kenyatta, Chair 4 Hem Onc Scenery 200 [place] [address] 02/19/2024 7:05 AM EDT Laboratory Lab Mobile Phlebotomy M[facility] 25[address] [place] [address] Mvmg, Gml Mobile Home Draw 2520 [place] [address] 02/20/2024 8:30 AM EDT Hem/Onc Treatment Hematology/Oncology Treatment, [place] 200 [place] [phone] Kenyatta, Chair 7 Hem Onc Scenery 200 [place] [address] 02/26/2024 7:05 AM EDT Laboratory Lab Mobile Phlebotomy MVM[facility] 2520 [place] [address] Mvmg, Gml Mobile Home Draw 2520 [place] [address] 02/27/2024 8:30 AM EDT Hem/Onc Treatment Hematology/Oncology Treatment, [place] 200 [place] [phone] Kenyatta, Chair 9 Hem Onc Scenery 200 [place] [address] 03/04/2024 7:00 AM EDT Laboratory Lab Mobile Phlebotomy MVMG [address] [place] [address] Mvmg, Gml Mobile Home Draw 2520 [facility] [place], [place] [address] 03/05/2024 10:45 AM EDT Office Visit Hematology/Oncology [facility] [address] [place] [phone] Morgan Vásquez MD 200 [facility] [place], [place] [address] 03/05/2024 11:15 AM EDT Hem[facility] [address] [place], [place] [phone] Kenyatta, Chair 1 Hem Onc [facility] 200 [facility] [place], [place] [address] 03/11/2024 7:05 AM EDT Laboratory Lab Mobile Phlebotomy MVMG [address] [place], [place] [address] Mvmg, Gml Mobile Home Draw 2520 [facility] [place] [address] 03/18/2024 7:05 AM EST Laboratory Lab Mobile Phlebotomy M[facility] [address] [facility] [address] [place], [place] [address] Mvmg, Gml Mobile Home Draw 2520 Gen [facility] [place] [address] 03/25/2024 7:05 AM EST Laboratory Lab Mobile Phlebotomy MVMG [address] [place] [address] Mvmg, Gml Mobile Home Draw 2520 [place] [address] 04/01/2024 7:00 AM EST Laboratory Lab Mobile Phlebotomy MVM[facility] [address] [place], [place] [address] Mvmg, Gml Mobile Home Draw [address] [place] [address] 04/08/2024 7:05 AM EST Laboratory Lab Mobile Phlebotomy MVMG [address] [place] [address] Mvmg, Gml Mobile Home Draw [address] [place] [address] 04/15/2024 7:05 AM EST Laboratory Lab Mobile Phlebotomy MVMG [address] [place] [address] Mvmg, Gml Mobile Home Draw [address] [place] [address] 04/22/2024 7:05 AM EST Laboratory Lab Mobile Phlebotomy MVMG [address] [place] [address] Mvmg, Gml Mobile Home Draw [address] [place] [address] 04/29/2024 7:05 AM EST Laboratory Lab Mobile Phlebotomy MVMG [address] [place] [address] Mvmg, Gml Mobile Home Draw [address] [place] [place] [address] 05/05/2024 7:05 AM EST Laboratory Lab Mobile Phlebotomy MVMG [address] [place] [address] Mvmg, Gml Mobile Home Draw [address] [place] [address] 09/02/2024 8:20 AM EDT Office Visit Pulmonary Medicine, [facility] 132 [facility] [place] [address] Ish Caba MD [address] [place] [address] 05/03/2025 7:40 AM EST Office Visit Dermatology [address] [place] [phone] Albina Romo PA-C [address] [place] [address] [place] [address] Health Maintenance Due Date Last Done Comments [...] this encounter Medical Devices Implanted Type Area Ems Manager Device Identifier Shelf Expiration Date Model / Serial / Lot Mesh Plug Xlarge [id number] - [id number] Implanted:Qty: 1 on 12/09/2020 by John Zaragoza MD at OR [facility] Left: Groin CR BARD : DAVOL 05/09/2023 [id number] / / [id number] documented as of this encounter Visit Diagnoses [...] of Attor coco? No Care Teams Die Cutter Operator Relationship Specialty Start Date End Date Michael Collins MD [address] [place] [address] [place] [address] PCP - General Internal Medicine 03/01/14 documented as of this encounter
--- OUTSIDE RECORDS SUMMARY | 2024-03-26 16:23 | External Medical Summary | Summary of Care ---
Author Name Unknown Organization [facility] Address [address] [facility] [place] [address] Phone [phone] Care Team Providers Care Hand Chain Maker Name Role Phone Michael Collins MD Primary Care Provi zehra Reason for Visit * Reason Comments Chemotherapy Cytoxan/Darzalex Fas pro * Episode Based Medications (Routine) - Authorized Specialty Diagnoses / Procedures Referred By Contac t Referred To Contact Diagnoses Multiple myeloma not having achieved remission (HCC) Procedures [place] DARATUMUMAB, HYALURONIDASE [place] INJ, CYCLOPHOSPHAMIDE, NOS Morgan Vásquez MD [address] [place] [address] Anc Hem/Onc Amena You DEPT CLOSED - 03/26/23 200 [facility] [place] [address] Referral ID Status Reason Start Date Expiration Date V isits Requested Visits Authorized [id number] Authorized 05/28/2022 05/12/2099 99 99 Encounter Details Date Type Department Care Team (Latest Contact Info) Description 01/09/2024 8:30 AM EDT Hem/Onc Treatment Hematology/Oncolog y Treatment, [place] [address] [place] [address] Kenyatta, Chair 9 Hem Onc Scenery 200 Amena Osman [place] [address] Multiple myeloma not having achieved remission (HCC)*; Encounter for antineoplastic chemotherapy Allergies No known active allergiesdocumented as of this encounter (statuses as of 01/17/2024) Medications Medication Sig Dispensed Refills Start Date End Date Status THEOPHYLLINE ER 450 MG PO NI29Qiznpmkhoag:2 tablet at bedtime Take by mouth. Indications: [...] nostril at bedtime. PATIENT INFORMATION: Kris Galvin [address] [place] [address] [employer]: [employer] ORDER: Please start nocturnal oxygen via nasal [...] signed) Ish Caba MD Pulmonary Medicine, [address] [place] [address] [place] [facility] Medical License Number: [id number] 1 Each 3 Active metFORMIN HCl ER [...] mRNA, LNP-s, No Pre serve, 2-Dose Series ([employer]) 01/17/2021,08/05/2020,07/08/2020 COVID-19, LNP-s, No Preserve , Bryant-sucrose, Ages 12+ ([employer]) 09/26/2021 DTaP Dipth/Tet/Acell Pertussis ([employer]), Peds 02/23/2021,11/11/2020,09/09/2020 [...] Mobile Phlebotomy [facility] [address] [place] [address] Mvmg, Gml Mobile Home Draw [address] [place] [address] 01/23/2024 8:30 AM EDT Hem/Onc Treatment Hematology/Oncology Treatment, [place] 200 [facility] [place] [phone] Kenyatta, Chair 9 Hem Onc [place] [address] [address] 01/29/2024 7:05 AM EDT Laboratory Lab Mobile Phlebotomy [facility] [address] [place] [address] [address] Mvmg, Gml Mobile Home Draw [address] [place] [address] 01/30/2024 8:30 AM EDT Hem[facility] 200 [facility] [place] [phone] Park, Chair 5 Hem Onc [place] [address] [address] 02/05/2024 8:40 AM EDT Office Visit Neurology [facility] State Zahraa You [address] [place] [address] Octavia Goins PA-C 200 [facility] [place] [address] 02/06/2024 8:30 AM EDT Hem/Onc Treatment Hematology/Oncology Treatment, [place] 200 [facility], [place] [phone] Park, Chair 4 Hem Onc Scenery 200 [facility] [place], [place] [address] 02/07/2024 8:00 AM EDT Office Visit Rheumatology [address] [place] [phone] Darnell Higgins MD [address] [employer] [place], [place] [address] 02/12/2024 7:05 AM EDT Laboratory Lab Mobile Phlebotomy MVMG [address] [employer] [place], [place] [address] Mvmg, Gml Mobile Home Draw [address] [employer] [place], [place] [address] 02/13/2024 8:30 AM EDT Hem/Onc Treatment Hematology/Oncology Treatment, [place] 200 [facility], [place] [phone] Kenyatta, Chair 4 Hem Onc Scenery 200 [facility] [place], [place] [address] 02/19/2024 7:05 AM EDT Laboratory Lab Mobile Phlebotomy MVMG [address] [employer] [place], [place] [address] Mvmg, Gml Mobile Home Draw [address] [employer] [address] 02/20/2024 8:30 AM EDT Hem/Onc Treatment Hematology/Oncology Treatment, [place] 200 [place] [address] Kenyatta, Chair 7 Hem Onc Scenery 200 [facility] [place], [place] [address] 02/26/2024 7:05 AM EDT Laboratory Lab Mobile Phlebotomy MVMG [address] [place] [address] Mvmg, Gml Mobile Home Draw 2520 [place] [address] 02/27/2024 8:30 AM EDT Hem/Onc Treatment [facility] 200 [place] [phone] Park, Chair 9 Hem Onc Scenery 200 [place] [address] 03/04/2024 7:00 AM EDT Laboratory Lab Mobile Phlebotomy MVMG [address] [employer] [address] Mvmg, Gml Mobile Home Draw 2520 [facility] [place], [place] [address] 03/05/2024 10:45 AM EDT Office Visit Hematology/Oncology [facility] 200 [place] [phone] Morgan Vásquez MD 200 [place] [address] 03/05/2024 11:15 AM EDT Hem/Onc [facility] 200 [place] [phone] Kenyatta, Chair 1 Hem Onc Scenery 200 [place] [address] 03/11/2024 7:05 AM EDT Laboratory Lab Mobile Phlebotomy MVM[facility] [address] [place] [address] Mvmg, Gml Mobile Home Draw 2520 [place] [address] 03/18/2024 7:05 AM EST Laboratory Lab Mobile Phlebotomy M[facility] [address] [place] [address] Mvmg, Gml Mobile Home Draw 2520 [place] [address] 03/25/2024 7:05 AM EST Laboratory Lab Mobile Phlebotomy MVMG 25[address] [place] [address] Mvmg, Gml Mobile Home Draw 25[address] [place] [address] 04/01/2024 7:00 AM EST Laboratory Lab Mobile Phlebotomy MVMG 25[address] [place] [address] Mvmg, Gml Mobile Home Draw 2520 [place] [address] 04/08/2024 7:05 AM EST Laboratory Lab Mobile Phlebotomy MVMG [address] [place] [address] Mvmg, Gml Mobile Home Draw 2520 [place] [address] 04/15/2024 7:05 AM EST Laboratory Lab Mobile Phlebotomy MVMG [address] [place] [address] Mvmg, Gml Mobile Home Draw 2520 [place] [address] 04/22/2024 7:05 AM EST Laboratory Lab Mobile Phlebotomy MVMG [address] [place] [address] Mvmg, Gml Mobile Home Draw 2520 [place] [address] 04/29/2024 7:05 AM EST Laboratory Lab Mobile Phlebotomy MVMG [address] [place] [address] Mvmg, Gml Mobile Home Draw 25[address] [place] [address] 05/05/2024 7:05 AM EST Laboratory Lab Mobile Phlebotomy MVMG [address] [place] [address] Mvmg, Gml Mobile Home Draw 25[address] [place] [address] 09/02/2024 8:20 AM EDT Office Visit Pulmonary Medicine, [address] [place] [address] Ish Caba MD [address] [facility] [place] [address] 05/03/2025 7:40 AM EST Office Visit Dermatology [address] [place] [address] Albina Romo PA-C [address] [place] [address] [place] [address] Health Maintenance Due Date Last Done Comments [...] encounter Medical Devices Implanted Type Area Floor Worker Well Service Device Identifier Shelf Expiration Date Model / Serial / Lot Mesh Plug Xlarge [id number] - [id number] Implanted:Qty: 1 on 12/09/2020 by John Zaragoza MD at [facility] Left: Groin CR BARD : DAVOL 05/09/2023 [id number] / / [id number] documented as of this encounter Visit Diagnoses [...] 517.4 mL/hr Daratumumab-hyaluronida se-fihj (Darzalex Faspro) 1800 mg-94897 units/ 15 ml subcut inj 15 mL, [...] Power of Attor coco? No Care Teams Hand Chain Maker Relationship Specialty Start Date End Date Michael Collins MD [address] [place] [address] [place] [address] PCP - General Internal Medicine 03/01/14 documented as of this encounter
--- OUTSIDE RECORDS SUMMARY | 2024-03-26 16:23 | External Medical Summary | Summary of Care ---
Author Name Unknown Organization [facility] Address [address] [facility] [place] [address] Phone [phone] Care Team Providers Care Dough Panner Name Role Phone Michael Collins MD Primary Care Provi zehra Reason for Visit * Reason Comments Chemotherapy Cytoxan/Darzalex Fas pro * Episode Based Medications (Routine) - Authorized Specialty Diagnoses / Procedures Referred By Contac t Referred To Contact Diagnoses Multiple myeloma not having achieved remission (HCC) Procedures [place] DARATUMUMAB, HYALURONIDASE ND INJ, CYCLOPHOSPHAMIDE, NOS Morgan Vásquez MD [address] [place] [address] Anc Hem/Onc Amena You DEPT CLOSED - 03/26/23 200 [facility] [place] [address] Referral ID Status Reason Start Date Expiration Date V isits Requested Visits Authorized [id number] Authorized 05/28/2022 05/12/2099 99 99 Encounter Details Date Type Department Care Team (Latest Contact Info) Description 01/09/2024 8:30 AM EDT Hem/Onc Treatment Hematology/Oncolog y Treatment, [place] [address] [place] [address] Kenyatta, Chair 9 Hem Onc Scenery 200 Amena Osman [place] [address] Multiple myeloma not having achieved remission (HCC)*; Encounter for antineoplastic chemotherapy Allergies No known active allergiesdocumented as of this encounter (statuses as of 01/17/2024) Medications Medication Sig Dispensed Refills Start Date End Date Status THEOPHYLLINE ER 450 MG PO FX82Pbonezagklp:2 tablet at bedtime Take by mouth. Indications: [...] nostril at bedtime. PATIENT INFORMATION: Kris Galvin [address] [place] [address] [email or web address]QU[employer]MENT COMPANY: [employer] ORDER: Please start nocturnal oxygen via nasal [...] signed) Ish Caba MD Pulmonary Medicine, [address] [place] [address] [place] [facility] Medical License Number: [id number] 1 Each 3 Active metFORMIN HCl ER [...] mRNA, LNP-s, No Pre serve, 2-Dose Series ([employer]) 01/17/2021,08/05/2020,07/08/2020 COVID-19, LNP-s, No Preserve , Bryant-sucrose, Ages 12+ ([employer]) 09/26/2021 DTaP Dipth/Tet/Acell Pertussis ([employer]), Peds 02/23/2021,11/11/2020,09/09/2020 [...] Mobile Phlebotomy [facility] [address] [place] [address] [address] Mvmg, Gml Mobile Home Draw [address] [place] [address] 01/23/2024 8:30 AM EDT Hem/Onc Treatment Hematology/Oncology Treatment, [place] 200 [facility] [place] [phone] Kenyatta, Chair 9 Hem Onc [place] [address] [address] 01/29/2024 7:05 AM EDT Laboratory Lab Mobile Phlebotomy M[facility]G [address] [place] [address] [address] Mvmg, Gml Mobile Home Draw [address] [place] [address] 01/30/2024 8:30 AM EDT Hem[facility] 200 [facility] [place] [phone] Park, Chair 5 Hem Onc [place] [address] [address] 02/05/2024 8:40 AM EDT Office Visit Neurology [facility] State Zahraa You [address] [address] Octavia Goins PA-C 200 [facility] [place] [address] 02/06/2024 8:30 AM EDT Hem/Onc Treatment Hematology/Oncology Treatment, [place] 200 [facility], [place] [phone] Park, Chair 4 Hem Onc Scenery 200 [facility] [place], [place] [address] 02/07/2024 8:00 AM EDT Office Visit Rheumatology [address] [place] [phone] Darnell Higgins MD [address] [place], [place] [address] 02/12/2024 7:05 AM EDT Laboratory Lab Mobile Phlebotomy MVMG [address] [place], [place] [address] Mvmg, Gml Mobile Home Draw [address] [place], [place] [address] 02/13/2024 8:30 AM EDT Hem/Onc Treatment Hematology/Oncology Treatment, [place] 200 [facility], [place] [phone] Kenyatta, Chair 4 Hem Onc Scenery 200 [facility] [place], [place] [address] 02/19/2024 7:05 AM EDT Laboratory Lab Mobile Phlebotomy MVMG [address] [place], [place] [address] Mvmg, Gml Mobile Home Draw [address] [place] [address] 02/20/2024 8:30 AM EDT Hem/Onc Treatment Hematology/Oncology Treatment, [place] 200 [facility] [phone] Kenyatta, Chair 7 Hem Onc Scenery 200 [facility] [place], [place] [address] 02/26/2024 7:05 AM EDT Laboratory Lab Mobile Phlebotomy MVMG [address] [place] [address] Mvmg, Gml Mobile Home Draw 2520 [place] [address] 02/27/2024 8:30 AM EDT Hem[facility]Onc [facility] 200 [facility] [place] [phone] Park, Chair 9 Hem Onc Scenery 200 [place] [address] 03/04/2024 7:00 AM EDT Laboratory Lab Mobile Phlebotomy MVMG [address] [place] [address] Mvmg, Gml Mobile Home Draw 2520 [facility] [place], [place] [address] 03/05/2024 10:45 AM EDT Office Visit Hematology/Oncology [facility] 200 [place] [phone] Morgan Vásquez MD 200 [place] [address] 03/05/2024 11:15 AM EDT Hem[facility]Onc [facility] 200 [facility] [place] [phone] Kenyatta, Chair 1 Hem Onc Scenery 200 [place] [address] 03/11/2024 7:05 AM EDT Laboratory Lab Mobile Phlebotomy M[facility] [address] [place] [address] Mvmg, Gml Mobile Home Draw [address] [place] [address] 03/18/2024 7:05 AM EST Laboratory Lab Mobile Phlebotomy MVM[facility] [address] [place] [address] Mvmg, Gml Mobile Home Draw [address] [place] [address] 03/25/2024 7:05 AM EST Laboratory Lab Mobile Phlebotomy MVMG 2520 [place] [address] Mvmg, Gml Mobile Home Draw 2520 [place] [address] 04/01/2024 7:00 AM EST Laboratory Lab Mobile Phlebotomy MVMG 25[address] [place] [address] Mvmg, Gml Mobile Home Draw 2520 [facility] [place] [address] 04/08/2024 7:05 AM EST Laboratory Lab Mobile Phlebotomy MVMG 25[address] [place] [address] Mvmg, Gml Mobile Home Draw 2520 [place] [address] 04/15/2024 7:05 AM EST Laboratory Lab Mobile Phlebotomy MVMG 25[address] [place] [address] Mvmg, Gml Mobile Home Draw 2520 [place] [address] 04/22/2024 7:05 AM EST Laboratory Lab Mobile Phlebotomy MVMG 25[address] [place] [address] Mvmg, Gml Mobile Home Draw 2520 [place] [address] 04/29/2024 7:05 AM EST Laboratory Lab Mobile Phlebotomy MVMG 25[address] [place] [address] Mvmg, Gml Mobile Home Draw 2520 [place] [address] 05/05/2024 7:05 AM EST Laboratory Lab Mobile Phlebotomy MVMG 25[address] [place] [address] Mvmg, Gml Mobile Home Draw 2520 [place] [address] 09/02/2024 8:20 AM EDT Office Visit Pulmonary Medicine, [address] [place] [address] Ish Caba MD [address] [facility] [place] [address] 05/03/2025 7:40 AM EST Office Visit Dermatology [address] [place] [address] Albina Romo PA-C [address] [place] [address] [place] [address] Health Maintenance Due Date Last Done Comments [...] this encounter Medical Devices Implanted Type Area Office Support Device Identifier Shelf Expiration Date Model / Serial / Lot Mesh Plug Xlarge [id number] - [id number] Implanted:Qty: 1 on 12/09/2020 by John Zaragoza MD at OR [facility] Left: Groin CR BARD : DAVOL 05/09/2023 [id number] / / [id number] documented as of this encounter Visit Diagnoses [...] 517.4 mL/hr Daratumumab-hyaluronida se-fihj (Darzalex Faspro) 1800 mg-14098 units/ 15 ml subcut inj 15 mL, [...] Power of Attor coco? No Care Teams Dough Panner Relationship Specialty Start Date End Date Michael Collins MD [address] [place] [address] [place] [address] PCP - General Internal Medicine 03/01/14 documented as of this encounter
--- OUTSIDE RECORDS SUMMARY | 2024-03-26 16:23 | External Medical Summary | Summary of Care ---
Author Name Unknown Organization [facility] Address [address] [facility] [address] Phone [phone] Care Team Providers Care Digital Design Engineer Name Role Phone Michael Collins MD Primary Care Provi zehra Reason for Visit * Reason Comments Chemotherapy Cytoxan/Darzalex Fas pro * Episode Based Medications (Routine) - Authorized Specialty Diagnoses / Procedures Referred By Contac t Referred To Contact Diagnoses Multiple myeloma not having achieved remission (HCC) Procedures [place] DARATUMUMAB, HYALURONIDASE [place] INJ, CYCLOPHOSPHAMIDE, NOS Morgan Vásquez MD [address] [place] [address] Anc Hem/Onc Amena You DEPT CLOSED - 03/26/23 200 [facility] [place] [address] Referral ID Status Reason Start Date Expiration Date V isits Requested Visits Authorized [id number] Authorized 05/28/2022 05/12/2099 99 99 Encounter Details Date Type Department Care Team (Latest Contact Info) Description 01/09/2024 8:30 AM EDT Hem/Onc Treatment Hematology/Oncolog y Treatment, [place] [address] [place] [address] Kenyatta, Chair 9 Hem Onc Scenery 200 Amena Osman [place] [address] Multiple myeloma not having achieved remission (HCC)*; Encounter for antineoplastic chemotherapy Allergies No known active allergiesdocumented as of this encounter (statuses as of 01/17/2024) Medications Medication Sig Dispensed Refills Start Date End Date Status THEOPHYLLINE ER 450 MG PO BF26Wniwxfcvjni:2 tablet at bedtime Take by mouth. Indications: [...] nostril at bedtime. PATIENT INFORMATION: Kris Galvin [address] [place] [address] [employer]: [employer] ORDER: Please start nocturnal oxygen via nasal [...] (electronically signed) Ish Caba MD Pulmonary Medicine, [address] [place] [address] [place] [facility] Medical License Number: [id number] 1 Each 3 Active metFORMIN HCl ER [...] mRNA, LNP-s, No Pre serve, 2-Dose Series ([employer]) 01/17/2021,08/05/2020,07/08/2020 COVID-19, LNP-s, No Preserve , Bryant-sucrose, Ages 12+ ([employer]) 09/26/2021 DTaP Dipth/Tet/Acell Pertussis (Infanrix), Peds 02/23/2021,11/11/2020,09/09/2020 [...] Mobile Phlebotomy [facility] [address] [place] [address] Mvmg, Gml Mobile Home Draw [address] [place] [address] 01/23/2024 8:30 AM EDT Hem/Onc Treatment Hematology/Oncology Treatment, [place] 200 [facility] [place] [phone] Kenyatta, Chair 9 Hem Onc [place] [address] [address] 01/29/2024 7:05 AM EDT Laboratory Lab Mobile Phlebotomy [facility] [address] [place] [address] [address] Mvmg, Gml Mobile Home Draw [address] [address] [address] 01/30/2024 8:30 AM EDT [facility] 200 [facility] [place] [phone] Park, Chair 5 Hem Onc [place] [address] [address] 02/05/2024 8:40 AM EDT Office Visit Neurology [facility] State Zahraa You [address] [address] Octavia Goins PA-C 200 [facility] [place] [address] 02/06/2024 8:30 AM EDT Hem/Onc Treatment Hematology/Oncology Treatment, [place] 200 [facility], [place] [phone] Park, Chair 4 Hem Onc Scenery 200 [facility] [place], [place] [address] 02/07/2024 8:00 AM EDT Office Visit Rheumatology [address] [place] [phone] Darnell Higgins MD [address] [place], [place] [address] 02/12/2024 7:05 AM EDT Laboratory Lab Mobile Phlebotomy [facility] [address] [place], [place] [address] Mvmg, Gml Mobile Home Draw [address] [place], [place] [address] 02/13/2024 8:30 AM EDT Hem/Onc Treatment Hematology/Oncology Treatment, [place] 200 [facility], [place] [phone] Kenyatta, Chair 4 Hem Onc Scenery 200 [facility] [place], [place] [address] 02/19/2024 7:05 AM EDT Laboratory Lab Mobile Phlebotomy [facility] [address] [place], [place] [address] Mvmg, Gml Mobile Home Draw [address] [place] [address] 02/20/2024 8:30 AM EDT Hem/Onc Treatment Hematology/Oncology Treatment, [place] 200 [place] [phone] Kenyatta, Chair 7 Hem Onc Scenery 200 [facility] [place], [place] [address] 02/26/2024 7:05 AM EDT Laboratory Lab Mobile Phlebotomy [facility] [address] [place] [address] Mvmg, Gml Mobile Home Draw 2520 [facility] [place] [address] 02/27/2024 8:30 AM EDT Hem[facility] 200 [place] [phone] Park, Chair 9 Hem Onc Scenery 200 [place] [address] 03/04/2024 7:00 AM EDT Laboratory Lab Mobile Phlebotomy [facility] [address] [place] [address] Mvmg, Gml Mobile Home Draw 2520 [facility] [place], [place] [address] 03/05/2024 10:45 AM EDT Office Visit Hematology/Oncology [facility] 200 [place] [place] [phone] Morgan Vásquez MD 200 [place] [place] [address] 03/05/2024 11:15 AM EDT Hem[facility] 200 [place] [phone] Kenyatta, Chair 1 Hem Onc Scenery 200 [place] [place] [address] 03/11/2024 7:05 AM EDT Laboratory Lab Mobile Phlebotomy [facility] [address] [place] [address] Mvmg, Gml Mobile Home Draw [address] [place] [address] 03/18/2024 7:05 AM EST Laboratory Lab Mobile Phlebotomy [facility] [address] [place] [address] Mvmg, Gml Mobile Home Draw [address] [place] [address] 03/25/2024 7:05 AM EST Laboratory Lab Mobile Phlebotomy [facility] [address] [facility] [place] [address] Mvmg, Gml Mobile Home Draw 25[address] [facility] [place] [address] 04/01/2024 7:00 AM EST Laboratory Lab Mobile Phlebotomy [facility] [address] [facility] [place] [address] Mvmg, Gml Mobile Home Draw 2520 [facility] [place] [address] 04/08/2024 7:05 AM EST Laboratory Lab Mobile Phlebotomy [facility] [address] [facility] [place] [address] Mvmg, Gml Mobile Home Draw 25[address] [facility] [place] [address] 04/15/2024 7:05 AM EST Laboratory Lab Mobile Phlebotomy [facility] [address] [facility] [place] [address] Mvmg, Gml Mobile Home Draw 2520 [facility] [place] [address] 04/22/2024 7:05 AM EST Laboratory Lab Mobile Phlebotomy [facility] [address] [facility] [place] [address] Mvmg, Gml Mobile Home Draw 2520 [facility] [place] [address] 04/29/2024 7:05 AM EST Laboratory Lab Mobile Phlebotomy [facility] [address] [facility] [place] [address] Mvmg, Gml Mobile Home Draw 2520 [facility] [place] [address] 05/05/2024 7:05 AM EST Laboratory Lab Mobile Phlebotomy [facility] [address] [facility] [place] [address] Mvmg, Gml Mobile Home Draw 2520 [facility] [place] [address] 09/02/2024 8:20 AM EDT Office Visit Pulmonary Medicine, [address] [place] [address] Ish Caba MD [address] [facility] [place] [address] 05/03/2025 7:40 AM EST Office Visit Dermatology [address] [place] [address] Albina Romo PA-C [address] [place] [address] [place] [address] Health Maintenance Due Date Last Done Comments [...] this encounter Medical Devices Implanted Type Area Education Teacher Device Identifier Shelf Expiration Date Model / Serial / Lot Mesh Plug Xlarge [id number] - [id number] Implanted:Qty: 1 on 12/09/2020 by John Zaragoza MD at OR [facility] Left: Groin CR BARD : DAVOL 05/09/2023 [id number] / / [id number] documented as of this encounter Visit Diagnoses [...] 517.4 mL/hr Daratumumab-hyaluronida se-fihj (Darzalex Faspro) 1800 mg-37902 units/ 15 ml subcut inj 15 mL, [...] Power of Attor coco? No Care Teams Digital Design Engineer Relationship Specialty Start Date End Date Michael Collins MD [address] [place] [address] [place] [address] PCP - General Internal Medicine 03/01/14 documented as of this encounter
--- OUTSIDE RECORDS SUMMARY | 2024-03-26 16:23 | External Medical Summary | Summary of Care ---
Author Name Unknown Organization [facility] Address [address] [facility] [address] Phone [phone] Care Team Providers Care Direct Sales Consultant Name Role Phone Michael Collins MD Primary Care Provi zehra Reason for Visit * Reason Comments Chemotherapy Cytoxan/Darzalex Fas pro * Episode Based Medications (Routine) - Authorized Specialty Diagnoses / Procedures Referred By Contac t Referred To Contact Diagnoses Multiple myeloma not having achieved remission (HCC) Procedures [place] DARATUMUMAB, HYALURONIDASE [place] INJ, CYCLOPHOSPHAMIDE, NOS Morgan Vásquez MD [address] [place] [address] Anc Hem/Onc Amena You DEPT CLOSED - 03/26/[address] [place] [address] Referral ID Status Reason Start Date Expiration Date V isits Requested Visits Authorized [id number] Authorized 05/28/2022 05/12/2099 99 99 Encounter Details Date Type Department Care Team (Latest Contact Info) Description 01/09/2024 8:30 AM EDT Hem/Onc Treatment Hematology/Oncolog y Treatment, [place] [address] [place] [address] Kenyatta, Chair 9 Hem Onc Scenery 200 Amena Osman [place] [address] Multiple myeloma not having achieved remission (HCC)*; Encounter for antineoplastic chemotherapy Allergies No known active allergiesdocumented as of this encounter (statuses as of 01/17/2024) Medications Medication Sig Dispensed Refills Start Date End Date Status THEOPHYLLINE ER 450 MG PO MV40Yflcdxmzbkp:2 tablet at bedtime Take by mouth. Indications: [...] nostril at bedtime. PATIENT INFORMATION: Kris Galvin [address] [place] [address] [employer]: [employer] ORDER: Please start nocturnal oxygen via nasal [...] (electronically signed) Ish Caba MD Pulmonary Medicine, [address] [place] [address] [place] [facility] Medical License Number: [id number] 1 Each 3 Active metFORMIN HCl ER [...] mRNA, LNP-s, No Pre serve, 2-Dose Series ([employer]) 01/17/2021,08/05/2020,07/08/2020 COVID-19, LNP-s, No Preserve , Bryant-sucrose, Ages 12+ ([employer]) 09/26/2021 DTaP Dipth/Tet/Acell Pertussis (Infanrix), Peds 02/23/2021,11/11/2020,09/09/2020 [...] Mobile Phlebotomy [facility] [address] [address] [address] Mvmg, Gml Mobile Home Draw [address] [place] [address] [address] 01/23/2024 8:30 AM EDT Hem/Onc Treatment Hematology/Oncology Treatment, [place] 200 [facility] [place] [phone] Kenyatta, Chair 9 Hem Onc [place] [address] [address] 01/29/2024 7:05 AM EDT Laboratory Lab Mobile Phlebotomy [facility] [address] [address] [address] Mvmg, Gml Mobile Home Draw [address] [place] [address] 01/30/2024 8:30 AM EDT Hem[facility] 200 [facility] [place] [phone] [place], Chair 5 Hem Onc [place] [address] [address] 02/05/2024 8:40 AM EDT Office Visit Neurology [facility] State Zahraa You [address] [address] Octavia Goins PA-C 200 [facility] [place] [address] 02/06/2024 8:30 AM EDT Hem/Onc Treatment Hematology/Oncology Treatment, [place] 200 [facility], [place] [phone] Park, Chair 4 Hem Onc Scenery 200 [facility] [place], [place] [address] 02/07/2024 8:00 AM EDT Office Visit Rheumatology [address] [place] [phone] Darnell Higgins MD [address] [place], [place] [address] 02/12/2024 7:05 AM EDT Laboratory Lab Mobile Phlebotomy [facility] [address] [place], [place] [address] Mvmg, Gml Mobile Home Draw [address] [place], [place] [address] 02/13/2024 8:30 AM EDT Hem/Onc Treatment Hematology/Oncology Treatment, [place] 200 [facility], [place] [phone] Kenyatta, Chair 4 Hem Onc Scenery 200 [facility] [place], [place] [address] 02/19/2024 7:05 AM EDT Laboratory Lab Mobile Phlebotomy [facility] [address] [place], [place] [address] Mvmg, Gml Mobile Home Draw [address] [place] [address] 02/20/2024 8:30 AM EDT Hem/Onc Treatment Hematology/Oncology Treatment, [place] 200 [place] [phone] Kenyatta, Chair 7 Hem Onc Scenery 200 [facility] [place], [place] [address] 02/26/2024 7:05 AM EDT Laboratory Lab Mobile Phlebotomy [facility] [address] [place] [address] Mvmg, Gml Mobile Home Draw 2520 [facility] [place] [address] 02/27/2024 8:30 AM EDT Hem[facility]Onc [facility] 200 [place] [phone] Park, Chair 9 Hem Onc Scenery 200 [facility] [place] [address] 03/04/2024 7:00 AM EDT Laboratory Lab Mobile Phlebotomy [facility] [address] [place] [address] Mvmg, Gml Mobile Home Draw 2520 [facility] [place], [place] [address] 03/05/2024 10:45 AM EDT Office Visit Hematology/Oncology [facility] 200 [facility] [place] [address] Morgan Vásquez MD 200 [facility] [place] [address] 03/05/2024 11:15 AM EDT Hem/Onc Treatment [facility] 200 [place] [phone] Kenyatta, Chair 1 Hem Onc Scenery 200 [facility] [place] [address] 03/11/2024 7:05 AM EDT Laboratory Lab Mobile Phlebotomy [facility] [address] [place] [address] Mvmg, Gml Mobile Home Draw [address] [place] [address] 03/18/2024 7:05 AM EST Laboratory Lab Mobile Phlebotomy [facility] [address] [place] [address] Mvmg, Gml Mobile Home Draw [address] [place] [address] 03/25/2024 7:05 AM EST Laboratory Lab Mobile Phlebotomy [facility] 2520 [facility] [place] [address] Mvmg, Gml Mobile Home Draw 2520 [facility] [place] [address] 04/01/2024 7:00 AM EST Laboratory Lab Mobile Phlebotomy [facility] 2520 [facility] [place] [address] Mvmg, Gml Mobile Home Draw 2520 [facility] [place] [address] 04/08/2024 7:05 AM EST Laboratory Lab Mobile Phlebotomy [facility] 25[address] [facility] [place] [address] Mvmg, Gml Mobile Home Draw 2520 [facility] [place] [address] 04/15/2024 7:05 AM EST Laboratory Lab Mobile Phlebotomy [facility] 25[address] [facility] [place] [address] Mvmg, Gml Mobile Home Draw 2520 [place] [address] 04/22/2024 7:05 AM EST Laboratory Lab Mobile Phlebotomy [facility] 25[address] [facility] [place] [address] Mvmg, Gml Mobile Home Draw 2520 [place] [address] 04/29/2024 7:05 AM EST Laboratory Lab Mobile Phlebotomy [facility] 25[address] [facility] [place] [address] Mvmg, Gml Mobile Home Draw 2520 [facility] [place] [address] 05/05/2024 7:05 AM EST Laboratory Lab Mobile Phlebotomy [facility] [address] [facility] [place] [address] Mvmg, Gml Mobile Home Draw 25[address] [facility] [place] [address] 09/02/2024 8:20 AM EDT Office Visit Pulmonary Medicine, [address] [place] [address] Ish Caba MD [address] [facility] [place] [address] 05/03/2025 7:40 AM EST Office Visit Dermatology [address] [place] [address] Albina Romo PA-C [address] [place] [address] [place] [address] Health Maintenance Due Date Last Done Comments [...] this encounter Medical Devices Implanted Type Area Spray Painter Device Identifier Shelf Expiration Date Model / Serial / Lot Mesh Plug Xlarge [id number] - [id number] Implanted:Qty: 1 on 12/09/2020 by John Zaragoza MD at OR [facility] Left: Groin CR BARD : DAVOL 05/09/2023 [id number] / / [id number] documented as of this encounter Visit Diagnoses [...] 517.4 mL/hr Daratumumab-hyaluronida se-fihj (Darzalex Faspro) 1800 mg-23920 units/ 15 ml subcut inj 15 mL, [...] Power of Attor coco? No Care Teams Direct Sales Consultant Relationship Specialty Start Date End Date Michael Collins MD [address] [place] [address] [place] [address] PCP - General Internal Medicine 03/01/14 documented as of this encounter
--- OUTSIDE RECORDS SUMMARY | 2024-03-26 16:23 | External Medical Summary | Summary of Care ---
Author Name Unknown Organization [facility] Address [address] [facility] [place] [address] Phone [phone] Care Team Providers Care Director Channel Name Role Phone Michael Collins MD Primary Care Provi zehra Reason for Visit * Reason Comments Chemotherapy Cytoxan/Darzalex Fas pro * Episode Based Medications (Routine) - Authorized Specialty Diagnoses / Procedures Referred By Contac t Referred To Contact Diagnoses Multiple myeloma not having achieved remission (HCC) Procedures [place] DARATUMUMAB, HYALURONIDASE [place] INJ, CYCLOPHOSPHAMIDE, NOS Morgan Vásquez MD [address] [place] [address] Anc Hem/Onc Amena You DEPT CLOSED - 03/26/23 [facility] [place] [address] Referral ID Status Reason Start Date Expiration Date V isits Requested Visits Authorized [id number] Authorized 05/28/2022 05/12/2099 99 99 Encounter Details Date Type Department Care Team (Latest Contact Info) Description 01/09/2024 8:30 AM EDT Hem/Onc Treatment Hematology/Oncolog y Treatment, [place] [address] [place] [address] Kenyatta, Chair 9 Hem Onc Scenery 200 Amena Osman [place] [address] Multiple myeloma not having achieved remission (HCC)*; Encounter for antineoplastic chemotherapy Allergies No known active allergiesdocumented as of this encounter (statuses as of 01/17/2024) Medications Medication Sig Dispensed Refills Start Date End Date Status THEOPHYLLINE ER 450 MG PO [id number]:2 tablet at bedtime Take by mouth. Indications: [...] Take by mouth. Active Multiple Vitamins-Minerals ([facility] IMMUNITY SUPPORT) CHEW Take by mouth. [...] nostril at bedtime. PATIENT INFORMATION: Kris Galvin [address] [place] [address] [employer]: [employer] ORDER: Please start nocturnal oxygen via nasal [...] (electronically signed) Ish Caba MD Pulmonary Medicine, [address] [place] [address] [place] [facility] Medical License Number: [id number] 1 Each 3 Active metFORMIN HCl ER [...] mRNA, LNP-s, No Pre serve, 2-Dose Series (Synovex) 01/17/2021,08/05/2020,07/08/2020 COVID-19, LNP-s, No Preserve , Bryant-sucrose, Ages 12+ (Synovex) 09/26/2021 DTaP Dipth/Tet/Acell Pertussis (Infanrix), Peds 02/23/2021,11/11/2020,09/09/2020 [...] Mobile Phlebotomy [facility] [address] [place] [address] Mvmg, Gml Mobile Home Draw [address] [place] [address] 01/23/2024 8:30 AM EDT Hem/Onc Treatment Hematology/Oncology Treatment, [place] 200 [facility] [place] [phone] Kenyatta, Chair 9 Hem Onc [place] [address] [address] 01/29/2024 7:05 AM EDT Laboratory Lab Mobile Phlebotomy [facility] [address] [place] [address] [address] Mvmg, Gml Mobile Home Draw [address] [place] [address] [address] 01/30/2024 8:30 AM EDT [facility] 200 [facility] [place] [phone] Park, Chair 5 Hem Onc [place] [address] [address] 02/05/2024 8:40 AM EDT Office Visit Neurology [facility] Zahraa You [address] [address] Octavia Goins PA-C 200 [facility] [place] [address] 02/06/2024 8:30 AM EDT Hem/Onc Treatment Hematology/Oncology Treatment, [place] 200 [facility], [place] [phone] Park, Chair 4 Hem Onc Scenery 200 [facility] [place] [place] [address] 02/07/2024 8:00 AM EDT Office Visit Rheumatology [address] [place] [phone] Darnell Higgins MD [address] [place], [place] [address] 02/12/2024 7:05 AM EDT Laboratory Lab Mobile Phlebotomy [facility] [address] [place], [place] [address] Mvmg, Gml Mobile Home Draw [address] [place], [place] [address] 02/13/2024 8:30 AM EDT Hem/Onc Treatment Hematology/Oncology Treatment, [place] 200 [facility], [place] [phone] Kenyatta, Chair 4 Hem Onc Scenery 200 [facility] [place], [place] [address] 02/19/2024 7:05 AM EDT Laboratory Lab Mobile Phlebotomy [facility] [address] [place], [place] [address] Mvmg, Gml Mobile Home Draw [address] [place] [address] 02/20/2024 8:30 AM EDT Hem/Onc Treatment Hematology/Oncology Treatment, [place] 200 [place] [phone] Kenyatta, Chair 7 Hem Onc Scenery 200 [facility] [place], [place] [address] 02/26/2024 7:05 AM EDT Laboratory Lab Mobile Phlebotomy [facility] [address] [place] [address] Mvmg, Gml Mobile Home Draw 2520 [place] [address] 02/27/2024 8:30 AM EDT [facility] 200 [place] [phone] Park, Chair 9 Hem Onc Scenery 200 [place] [address] 03/04/2024 7:00 AM EDT Laboratory Lab Mobile Phlebotomy [facility] [address] [place] [address] Mvmg, Gml Mobile Home Draw 25[address] [facility] [place], [place] [address] 03/05/2024 10:45 AM EDT Office Visit Hematology/Oncology [facility] 200 [place] [phone] Morgan Vásquez MD 200 [place] [address] 03/05/2024 11:15 AM EDT [facility] 200 [place] [phone] Kenyatta, Chair 1 Hem Onc Scenery 200 [place] [address] 03/11/2024 7:05 AM EDT Laboratory Lab Mobile Phlebotomy [facility] [address] [place] [address] Mvmg, Gml Mobile Home Draw [address] [place] [address] 03/18/2024 7:05 AM EST Laboratory Lab Mobile Phlebotomy [facility] [address] [place] [address] Mvmg, Gml Mobile Home Draw [address] [place] [address] 03/25/2024 7:05 AM EST Laboratory Lab Mobile Phlebotomy [facility] [address] [place] [address] Mvmg, Gml Mobile Home Draw [address] [place] [address] 04/01/2024 7:00 AM EST Laboratory Lab Mobile Phlebotomy [facility] [address] [place] [address] Mvmg, Gml Mobile Home Draw 25[address] [place] [address] 04/08/2024 7:05 AM EST Laboratory Lab Mobile Phlebotomy [facility] [address] [place] [address] Mvmg, Gml Mobile Home Draw [address] [place] [address] 04/15/2024 7:05 AM EST Laboratory Lab Mobile Phlebotomy [facility] [address] [place] [address] Mvmg, Gml Mobile Home Draw 2520 [place] [address] 04/22/2024 7:05 AM EST Laboratory Lab Mobile Phlebotomy [facility] [address] [place] [address] Mvmg, Gml Mobile Home Draw 25[address] [place] [address] 04/29/2024 7:05 AM EST Laboratory Lab Mobile Phlebotomy [facility] [address] [place] [address] Mvmg, Gml Mobile Home Draw [address] [place] [address] 05/05/2024 7:05 AM EST Laboratory Lab Mobile Phlebotomy [facility] [address] [place] [address] Mvmg, Gml Mobile Home Draw [address] [place] [address] 09/02/2024 8:20 AM EDT Office Visit Pulmonary Medicine, [address] [place] [address] Ish Caba MD [address] [facility] [place] [address] 05/03/2025 7:40 AM EST Office Visit Dermatology [address] [place] [address] Albina Romo PA-C [address] [place] [address] [place] [address] Health Maintenance Due Date Last Done Comments [...] this encounter Medical Devices Implanted Type Area Data Assistant Device Identifier Shelf Expiration Date Model / Serial / Lot Mesh Plug Xlarge [id number] - [id number] Implanted:Qty: 1 on 12/09/2020 by John Zaragoza MD at OR [id number] Left: Groin CR BARD : DAVOL 05/09/2023 [id number] / / [id number] documented as of this encounter Visit Diagnoses [...] 517.4 mL/hr Daratumumab-hyaluronida se-fihj (Darzalex Faspro) 1800 mg-08555 units/ 15 ml subcut inj 15 mL, [...] of Attor coco? No Care Teams Director Channel Relationship Specialty Start Date End Date Michael Collins MD [address] [place] [address] [place] [address] PCP - General Internal Medicine 03/01/14 documented as of this encounter
--- OUTSIDE RECORDS SUMMARY | 2024-03-26 16:23 | External Medical Summary | Summary of Care ---
Author Name Unknown Organization [facility] Address [address] [place] [address] Phone [phone] Care Team Providers Care Job Spotter Name Role Phone Michael Collins MD Primary Care Provi zehra Reason for Visit * Reason Comments Chemotherapy Cytoxan/Darzalex Fas pro * Episode Based Medications (Routine) - Authorized Specialty Diagnoses / Procedures Referred By Contac t Referred To Contact Diagnoses Multiple myeloma not having achieved remission (HCC) Procedures [place] DARATUMUMAB, HYALURONIDASE [place] INJ, CYCLOPHOSPHAMIDE, NOS Morgan Vásquez MD [address] [place] [address] Anc Hem/Onc Amena You DEPT CLOSED - 03/26/23 200 [facility] [place] [address] Referral ID Status Reason Start Date Expiration Date V isits Requested Visits Authorized [id number] Authorized 05/28/2022 05/12/2099 99 99 Encounter Details Date Type Department Care Team (Latest Contact Info) Description 01/09/2024 8:30 AM EDT Hem/Onc Treatment Hematology/Oncolog y Treatment, [place] [address] [place] [address] Kenyatta, Chair 9 Hem Onc Scenery 200 Amena [place]man [place] [address] Multiple myeloma not having achieved remission (HCC)*; Encounter for antineoplastic chemotherapy Allergies No known active allergiesdocumented as of this encounter (statuses as of 01/17/2024) Medications Medication Sig Dispensed Refills Start Date End Date Status THEOPHYLLINE ER 450 MG PO [id number]:2 tablet at bedtime Take by mouth. Indications: [...] CAPS Take by mouth. Active Multiple Vitamins-Minerals ([facility] IMMUNITY SUPPORT) CHEW Take by mouth. Active [...] nostril at bedtime. PATIENT INFORMATION: Kris Galvin [address] [place] [address] [employer]: [employer] ORDER: Please start nocturnal oxygen via nasal [...] (electronically signed) Ish Caba MD Pulmonary Medicine, [address] [place] [address] [place] [facility] Medical License Number: [id number] 1 Each 3 Active metFORMIN HCl ER [...] mRNA, LNP-s, No Pre serve, 2-Dose Series (easy2map) 01/17/2021,08/05/2020,07/08/2020 COVID-19, LNP-s, No Preserve , Bryant-sucrose, Ages 12+ (easy2map) 09/26/2021 DTaP Dipth/Tet/Acell Pertussis (Infanrix), Peds 02/23/2021,11/11/2020,09/09/2020 [...] Mobile Phlebotomy [facility] [address] [place] [address] [address] Mvmg, Gml Mobile Home Draw [address] [address] [address] 01/23/2024 8:30 AM EDT Hem/Onc Treatment Hematology/Oncology Treatment, [place] 200 [facility] [place] [phone] Kenyatta, Chair 9 Hem Onc [place] [address] [address] 01/29/2024 7:05 AM EDT Laboratory Lab Mobile Phlebotomy [facility] [address] [place] [address] Mvmg, Gml Mobile Home Draw [address] [place] [address] 01/30/2024 8:30 AM EDT [facility] 200 [facility] [place] [phone] Park, Chair 5 Hem Onc [place] [address] [address] 02/05/2024 8:40 AM EDT Office Visit Neurology [facility] State Zahraa You [address] [address] Octavia Goins PA-C 200 [facility] [place] [address] 02/06/2024 8:30 AM EDT Hem/Onc Treatment Hematology/Oncology Treatment, [place] 200 [facility], [place] [phone] Park, Chair 4 Hem Onc Scenery 200 [facility] [place] [place] [address] 02/07/2024 8:00 AM EDT Office Visit Rheumatology [address] [place] [phone] Darnell Higgins MD [address] [employer] [place], [place] [address] 02/12/2024 7:05 AM EDT Laboratory Lab Mobile Phlebotomy [facility] [address] [employer] [place], [place] [address] Mvmg, Gml Mobile Home Draw [address] [employer] [place], [place] [address] 02/13/2024 8:30 AM EDT Hem/Onc Treatment Hematology/Oncology Treatment, [place] 200 [facility], [place] [phone] Kenyatta, Chair 4 Hem Onc Scenery 200 [facility] [place], [place] [address] 02/19/2024 7:05 AM EDT Laboratory Lab Mobile Phlebotomy [facility] [address] [employer] [place], [place] [address] Mvmg, Gml Mobile Home Draw [address] [place] [address] 02/20/2024 8:30 AM EDT Hem/Onc Treatment Hematology/Oncology Treatment, [place] 200 [place] [phone] Kenyatta, Chair 7 Hem Onc Scenery 200 [facility] [place], [place] [address] 02/26/2024 7:05 AM EDT Laboratory Lab Mobile Phlebotomy [facility] [address] [place] [address] Mvmg, Gml Mobile Home Draw [address]20 [facility] [place] [address] 02/27/2024 8:30 AM EDT Hem[facility] 200 [place] [phone] Park, Chair 9 Hem Onc Scenery 200 [place] [address] 03/04/2024 7:00 AM EDT Laboratory Lab Mobile Phlebotomy [facility] [address] [place] [address] Mvmg, Gml Mobile Home Draw [address] [facility] [place], [place] [address] 03/05/2024 10:45 AM EDT Office Visit Hematology/Oncology [facility] 200 [place] [phone] Morgan Vásquez MD 200 [place] [address] 03/05/2024 11:15 AM EDT Hem[facility] 200 [place] [phone] Kenyatta, Chair 1 Hem Onc Scenery 200 [place] [address] 03/11/2024 7:05 AM EDT Laboratory Lab Mobile Phlebotomy [facility] [address] [place] [address] Mvmg, Gml Mobile Home Draw [address] [place] [address] 03/18/2024 7:05 AM EST Laboratory Lab Mobile Phlebotomy [facility] [address] [place] [address] Mvmg, Gml Mobile Home Draw [address] [place] [address] 03/25/2024 7:05 AM EST Laboratory Lab Mobile Phlebotomy [facility] [address] [facility] [place] [address] Mvmg, Gml Mobile Home Draw [address] [facility] [place] [address] 04/01/2024 7:00 AM EST Laboratory Lab Mobile Phlebotomy [facility] [address] [facility] [place] [address] Mvmg, Gml Mobile Home Draw [address] [facility] [place] [address] 04/08/2024 7:05 AM EST Laboratory Lab Mobile Phlebotomy [facility] [address] [facility] [place] [address] Mvmg, Gml Mobile Home Draw [address] [facility] [place] [address] 04/15/2024 7:05 AM EST Laboratory Lab Mobile Phlebotomy [facility] [address] [facility] [place] [address] Mvmg, Gml Mobile Home Draw 2520 [place] [address] 04/22/2024 7:05 AM EST Laboratory Lab Mobile Phlebotomy [facility] [address] [facility] [place] [address] Mvmg, Gml Mobile Home Draw 2520 [place] [address] 04/29/2024 7:05 AM EST Laboratory Lab Mobile Phlebotomy [facility] [address] [place] [place] [address] Mvmg, Gml Mobile Home Draw [address] [facility] [place] [address] 05/05/2024 7:05 AM EST Laboratory Lab Mobile Phlebotomy [facility] [address] [place] [place] [address] Mvmg, Gml Mobile Home Draw [address] [facility] [place] [address] 09/02/2024 8:20 AM EDT Office Visit Pulmonary Medicine, [address] [place] [address] Ish Caba MD [address] [facility] [place] [address] 05/03/2025 7:40 AM EST Office Visit Dermatology [address] [place] [address] Albina Romo PA-C [address] [place] [address] [place] [address] Health Maintenance Due Date Last Done Comments [...] this encounter Medical Devices Implanted Type Area Landscape Laborer Device Identifier Shelf Expiration Date Model / Serial / Lot Mesh Plug Xlarge [id number] - [id number] Implanted:Qty: 1 on 12/09/2020 by John Zaragoza MD at OR [facility] Left: Groin CR BARD : DAVOL 05/09/2023 [id number] / / [id number] documented as of this encounter Visit Diagnoses [...] 517.4 mL/hr Daratumumab-hyaluronida se-fihj (Darzalex Faspro) 1800 mg-93041 units/ 15 ml subcut inj 15 mL, [...] Power of Attor coco? No Care Teams Job Spotter Relationship Specialty Start Date End Date Michael Collins MD [address] [place] [address] [place] [address] PCP - General Internal Medicine 03/01/14 documented as of this encounter
--- OUTSIDE RECORDS SUMMARY | 2024-03-26 16:24 | External Medical Summary | Summary of Care ---
Author Name Unknown Organization [facility] Address [address] [facility] [place] [address] Phone [phone] Care Team Providers Care Business Technology Professor Name Role Phone Michael Collins MD Primary Care Provi zehra Reason for Visit * Reason Comments Chemotherapy Cytoxan * Episode Based Medications (Routine) - Authorized Specialty Diagnoses / Procedures Referred By Contac t Referred To Contact Diagnoses Multiple myeloma not having achieved remission (HCC) Procedures [place] DARATUMUMAB, HYALURONIDASE [place] INJ, CYCLOPHOSPHAMIDE, NOS Morgan Vásquez MD [address] [place] [address] Anc Hem/Onc Amena You DEPT CLOSED - 03/26/23 200 [facility] [place] [address] Referral ID Status Reason Start Date Expiration Date V isits Requested Visits Authorized [id number] Authorized 05/28/2022 05/12/2099 99 99 Encounter Details Date Type Department Care Team (Latest Contact Info) Description 01/02/2024 8:30 AM EDT Hem/Onc Treatment Hematology/Oncolog y Treatment, [place] [address] [place] [address] Kenyatta, Chair 7 Hem Onc Scenery [address] [place] [address] Multiple myeloma not having achieved remission (HCC)*; Encounter for antineoplastic chemotherapy Allergies No known active allergiesdocumented as of this encounter (statuses as of 01/16/2024) Medications Medication Sig Dispensed Refills Start Date End Date Status THEOPHYLLINE ER 450 MG PO CH03Astoagdcdbh:2 tablet at bedtime Take by mouth. Indications: [...] nostril at bedtime. PATIENT INFORMATION: Kris Galvin [address] [place] [address] [employer]: [employer] ORDER: Please start nocturnal oxygen via nasal [...] signed) Ish Caba MD Pulmonary Medicine, [address] [place] [address] [place] [facility] Medical License Number: [id number] 1 Each 3 Active metFORMIN HCl ER [...] as of this encounter (statuses as of 01/16/2024) Active Problems Problem Noted Date Diagnosed Date [...] as of this encounter (statuses as of 01/16/2024) Resolved Problems Problem Noted Date Diagnosed Date Resolved Date Asthma in remission 08/28/2022 08/29/19 Asthma, mild persistent 08/28/202208/11 Asthma, severe persistent 08/28/2022 Stem cell transplant candidate 08/17/2019 09/02/2019 documented as of this encounter (statuses as of 01/16/2024) Immunizations Name Administration Dates Next Due COVID-19 mRNA, LNP-s, No Pre serve, 2-Dose Series (HomeStay) 01/17/2021,08/05/2020,07/08/2020 COVID-19, LNP-s, No Preserve , Bryant-sucrose, [...] Sign Reading Time Taken Comments Blood Pressure 128/78 01/02/2024 9:35 AM EDT Pulse 79 01/02/2024 9:35 AM EDT Temperature 36.5 C (97.7 F) 01/02/2024 9:35 AM ED T Respiratory Rate 16 01/02/2024 9:35 AM EDT Oxygen Saturation 96% 01/02/2024 9:35 AM EDT Inhaled Oxygen Concentration - - Weight 129.8 kg (286 lb 3.2 oz) 01/02/2024 9:35 AM EDT Height - - Body Mass Index 38.82 10/11/2023 9:26 AM EDT documented in this [...] Nursing Notes * Manisha Fraser RN - 01/02/2024 11:07 AM EDT Goals: Patient will remain free [...] further needs. * Manisha Fraser RN - 01/02/2024 9:33 AM EDT Chair 12. IV inserted. Patient is feeling well overall, no acute issues or complaints. He did trip and fall while working in his shed a couple days ago and is slightly sore but overall feeling fine. Hydration started. Chemotherapy/Immunotherapy agents: CYTOXAN and DARZALEX Consent for chemotherapy drug treatment complete, dated, and signed? yes, date - 12/29/2020 Darzalex, 10/17/2023 - Cytoxan Treatment lab parameters met? Yes Has treatment weight changed > than 10%? No Treatment preauthorized? Yes VITALS Filed Vitals: 01/02/24 0935 BP: 128/78 Pulse: 79 Resp: 16 Temp: 36.5 C (97.7 F) TempSrc: Tympanic SpO2: 96% Weight: 129.8 kg (286 lb 3.2 oz) Urine protein: N/A Patient [...] additional symptoms PAIN: 1-2 pain location : some general soreness from tipping and falling a couple days ago Safety and Risk for Injury Patient will remain free from injury. Ensure appropriate safety devices are available. Provide and maintain safe environment. documented in this encounter Plan of Treatment Upcoming Encounters Date Type Department Care Team (Late st Contact Info) Description 01/22/2024 7:05 AM EDT Laboratory Lab Mobile Phlebotomy [facility] [address] [place] [address] [facility] Draw [address] [place] [address] 01/23/2024 8:30 AM EDT Hem/Onc Treatment Hematology/[address]cology [address], [address] [phone] Kenyatta, Chair 9 Hem Onc Scenery [address] [place] [address] [place] [address] 01/29/2024 7:05 AM EDT Laboratory Lab Mobile Phlebotomy [facility] [address] [employer] [place] [address] [facility], G[facility] Draw [address] [place] [address] 01/30/2024 8:30 AM EDT Hem/Onc Treatment Hematology/Oncology [address], [address] [phone] Kenyatta, Chair 5 Hem Onc Scenery [address] [place] [address] [place] [address] 02/05/2024 8:40 AM EDT Office Visit Neurology [facility] [place] 200 [place] [address] Octavia Goins PA-C 200 [place] [address] 02/06/2024 8:30 AM EDT Hem/Onc Treatment [facility], [place] [facility] [phone] Kenyatta, Chair 4 Hem Onc Scenery [address] [place] [address] [place], [place] [address] 02/07/2024 8:00 AM EDT Office Visit Rheumatology [address] [place] [phone] Darnell Higgins MD [address] [employer] [place] [address] 02/12/2024 7:05 AM EDT Laboratory Lab Mobile Phlebotomy [facility] [address] [employer] [place], [place] [address] [facility], G[facility] Mobile [facility] Draw 25[address] [facility] [place], [place] [address] 02/13/2024 8:30 AM EDT Hem/Onc Treatment Hematology/Oncology Treatment, [place] 200 [facility], [place] [phone] Park, Chair 4 Hem Onc Scenery [address] [place] [address] [place], [place] [address] 02/19/2024 7:05 AM EDT Laboratory Lab Mobile Phlebotomy [facility] [address] [facility] [place] [address] Mvmg, Gml Mobile Home Draw 25[address] [facility] [place], [place] [address] 02/20/2024 8:30 AM EDT Hem/Onc Treatment Hematology/Oncology Treatment, [place] 200 [facility] [place] [address] Park, Chair 7 Hem Onc Scenery 200 [place] [address] 02/26/2024 7:05 AM EDT Laboratory Lab Mobile Phlebotomy [facility] [address] [facility] [place] [address] Mv[facility], Gml Mobile Home Draw [address] [facility] [place], [place] [address] 02/27/2024 8:30 AM EDT Hem/Onc Treatment Hematology/Oncology Treatment, [place] 200 [facility] [place] [phone] Kenyatta, Chair 9 Hem Onc Scenery 200 [place] [address] 03/04/2024 7:00 AM EDT Laboratory Lab Mobile Phlebotomy [facility] [address] [place], [place] [address] M[facility], Gml Mobile Home Draw 25[address] [facility] [place], [place] [address] 03/05/2024 10:45 AM EDT Office Visit Hematology/Oncology [facility] 200 [facility], [place] [phone] Morgan Vásquez MD 200 [place] [address] 03/05/2024 11:15 AM EDT Hem/Onc Treatment Hematology/Oncology [facility] 200 [facility], [place] [phone] Kenyatta, Chair 1 Hem Onc Scenery 200 [place] [address] 03/11/2024 7:05 AM EDT Laboratory Lab Mobile Phlebotomy [facility] [address] [place], [place] [address] Mvmg, Gml Mobile Home Draw [address] [facility] [place] [address] 03/18/2024 7:05 AM EST Laboratory Lab Mobile Phlebotomy [facility] [address] [facility] [place] [address] Mvmg, Gml Mobile Home Draw 25[address] [place] [address] 03/25/2024 7:05 AM EST Laboratory Lab Mobile Phlebotomy [facility] [address] [place], [place] [address] Mvmg, Gml Mobile Home Draw [address] [facility] [place] [address] 04/01/2024 7:00 AM EST Laboratory Lab Mobile Phlebotomy [facility] [address] [employer] [place] [address] Mvmg, Gml Mobile Home Draw [address] [place] [address] 04/08/2024 7:05 AM EST Laboratory Lab Mobile Phlebotomy [facility] [address] [facility] [place] [address] Mvmg, Gml Mobile Home Draw [address] [place] [address] 04/15/2024 7:05 AM EST Laboratory Lab Mobile Phlebotomy [facility] [address] [facility] [place] [address] Mvmg, Gml Mobile Home Draw [address] [place] [address] 04/22/2024 7:05 AM EST Laboratory Lab Mobile Phlebotomy [facility] [address] [place] [place] [address] Mvmg, Gml Mobile Home Draw [address] [place] [address] 04/29/2024 7:05 AM EST Laboratory Lab Mobile Phlebotomy [facility] [address] [facility] [place] [address] Mvmg, Gml Mobile Home Draw [address] [place] [address] 05/05/2024 7:05 AM EST Laboratory Lab Mobile Phlebotomy [facility] [address] [employer] [place] [address] Mvmg, Gml Mobile Home Draw [address] [place] [address] 09/02/2024 8:20 AM EDT Office Visit Pulmonary Medicine, [facility] [address] [place] [address] Ish Caba MD [address] [place] [phone] 05/03/2025 7:40 AM EST Office Visit Dermatology [address] [place] [address] Albina Romo PA-C [address] [place] [address] [place] [address] Health Maintenance Due Date Last Done Comments [...] this encounter Medical Devices Implanted Type Area Communications Engineering Technician Device Identifier Shelf Expiration Date Model / Serial / Lot Mesh Plug Xlarge [id number] - [id number] Implanted:Qty: 1 on 12/09/2020 by John Zaragoza MD at [facility] Left: Demond RIVAS BARD : LUCINDA 05/09/2023 [id number] / / [id number] documented as of this encounter Visit Diagnoses [...] not tolerated., ONCE, 1 dose, On Lilibeth 01/02/24 at 0930 Start Infusion 01/02/2024 9:59 AM EDT 740 mg 517.4 mL/hr dexAMETHasone (Decadron) tab 40 mg 40 mg, Oral, ONCE, On Lilibeth 01/02/24 at 0915, For 1 dose Given 01/02/2024 9:01 AM EDT 40 mg NSS infusion FOR HYDRATION Intravenous, at 500 mL/hr Administer over 2 Hours, ONCE, 1 dose, On Lilibeth 01/02/24 at 0930 Start Infusion 01/02/2024 8:56 AM EDT 1,000 mL 500 mL/hr NSS infusion FOR HYDRATION Intravenous, at 50 mL/hr Administer over 10 Hours, CONTINUOUS, Starting on Lilibeth 01/02/24 at 0930, Until Lilibeth 01/02/24 at 1738 Start Infusion 01/02/2024 8:57 AM EDT 500 mL 50 mL/hr ondansetron (Zofran) tab 8 mg 8 mg, Oral, ONCE, On Lilibeth 01/02/24 at 0915, For 1 dose Given 01/02/2024 9:01 AM EDT 8 mg documented in this [...] of Attor coco? No Care Teams Business Technology Professor Relationship Specialty Start Date End Date Michael Collins MD [address] [place] [address] [place] [address] PCP - General Internal Medicine 03/01/14 documented as of this encounter
--- OUTSIDE RECORDS SUMMARY | 2024-03-26 16:24 | External Medical Summary | Summary of Care ---
Author Name Unknown Organization [facility] Address [address] [facility] [address] Phone [phone] Care Team Providers Care Electrical Logging Operator Name Role Phone Michael Collins MD Primary Care Provi zehra Reason for Visit * Reason Comments Chemotherapy C40 D8 Cytoxan for M M * Episode Based Medications (Routine) - Authorized Specialty Diagnoses / Procedures Referred By Contac t Referred To Contact Diagnoses Multiple myeloma not having achieved remission (HCC) Procedures [place] DARATUMUMAB, HYALURONIDASE [place] INJ, CYCLOPHOSPHAMIDE, NOS Morgan Vásquez MD [address] [place] [address] Anc Hem/Onc Amena You DEPT CLOSED - 03/26/23 200 [facility] [place] [address] Referral ID Status Reason Start Date Expiration Date V isits Requested Visits Authorized [id number] Authorized 05/28/2022 05/12/2099 99 99 Encounter Details Date Type Department Care Team (Latest Contact Info) Description 01/16/2024 8:30 AM EDT Hem/Onc Treatment Hematology/Oncolog y Treatment, [place] [address] [place] [phone] Kenyatta, Chair 7 Hem Onc Scenery [address] [place] [address] Multiple myeloma not having achieved remission (HCC)*; Encounter for antineoplastic chemotherapy Allergies No known active allergiesdocumented as of this encounter (statuses as of 01/16/2024) Medications Medication Sig Dispensed Refills Start Date End Date Status THEOPHYLLINE ER 450 MG PO JO06Waboxnlhlix:2 tablet at bedtime Take by mouth. Indications: [...] nostril at bedtime. PATIENT INFORMATION: Kris Galvin [address] [place] [address] [employer]: [employer] ORDER: Please start nocturnal oxygen via nasal [...] signed) Ish Caba MD Pulmonary Medicine, [address] [place] [address] [place] [facility] Medical License Number: [id number] 1 Each 09/21/2022 Active metFORMIN HCl ER [...] mRNA, LNP-s, No Pre serve, 2-Dose Series (NCR) 01/17/2021,08/05/2020,07/08/2020 COVID-19, LNP-s, No Preserve , Bryant-sucrose, Ages 12+ (NCR) 09/26/2021 DTaP Dipth/Tet/Acell Pertussis (Infanrix), Peds 02/23/2021,11/11/2020,09/09/2020 [...] No Treatment preauthorized? Yes VITALS Filed Vitals: 01/16/24 09 BP: 124/84 Pulse: 85 Temp: 36.2 C [...] Mobile Phlebotomy [facility] [address] [place] [address] [facility], Gml Mobile Home Draw [address] [place] [address] 01/23/2024 8:30 AM EDT Hem/Onc Treatment Hematology/[address], [address] [phone] Kenyatta, Chair 9 Hem Onc Scenery [address] [place] [address] 01/29/2024 7:05 AM EDT Laboratory Lab Mobile Phlebotomy [facility] [address] [place] [address] Mv[facility], Gml Mobile Home Draw [address] [place] [address] 01/30/2024 8:30 AM EDT [facility] [phone] Park, Chair 5 Hem Onc Scenery 200 [facility] [place] [address] 02/05/2024 8:40 AM EDT Office Visit Neurology [facility] [place] 200 [facility] [place] [address] Octavia Goins PA-C 200 [facility] [place] [address] 02/06/2024 8:30 AM EDT Hem/Onc Treatment Hematology/Oncology Treatment, [place] [facility] [phone] Kenyatta, Chair 4 Hem Onc Scenery [address] [facility] [place] [address] 02/07/2024 8:00 AM EDT Office Visit Rheumatology [address] [place] [address] Darnell Higgins MD [address] [email or web address] [place], [place] [address] 02/12/2024 7:05 AM EDT Laboratory Lab Mobile Phlebotomy [facility] [address] [email or web address] [place], [place] [address] Mvmg, Gml Mobile Home Draw [address] [employer] [place], [place] [address] 02/13/2024 8:30 AM EDT [facility] 200 [facility], [place] [phone] Kenyatta, Chair 4 Hem Onc Scenery 200 [facility] [place], [place] [address] 02/19/2024 7:05 AM EDT Laboratory Lab Mobile Phlebotomy [facility] [address] [email or web address] [address] Mvmg, Gml Mobile Home Draw [address] [employer] [place], [place] [address] 02/20/2024 8:30 AM EDT Hem[facility] 200 [place] [phone] Kenyatta, Chair 7 Hem Onc Scenery 200 [place] [address] 02/26/2024 7:05 AM EDT Laboratory Lab Mobile Phlebotomy [facility] [address] [email or web address] [place], [place] [address] Mv[facility], Gml Mobile Home Draw [address] [email or web address] [address] 02/27/2024 8:30 AM EDT Hem/Onc Treatment Hematology/Oncology Treatment, [place] 200 [place] [phone] Kenyatta, Chair 9 Hem Onc Scenery 200 [place] [address] 03/04/2024 7:00 AM EDT Laboratory Lab Mobile Phlebotomy [facility] [address] [email or web address] [address] Mv[facility], Gml Mobile Home Draw 2520 [facility] [place], [place] [address] 03/05/2024 10:45 AM EDT Office Visit Hematology/Oncology [facility] 200 [place] [phone] Morgan Vásquez MD 200 [place] [address] 03/05/2024 11:15 AM EDT Hem[facility] 200 [facility], [place] [phone] Kenyatta, Chair 1 Hem Onc Scenery 200 [place] [address] 03/11/2024 7:05 AM EDT Laboratory Lab Mobile Phlebotomy [facility] [address] [email or web address] [place], [place] [address] Mvmg, Gml Mobile Home Draw [address] [place] [address] 03/18/2024 7:05 AM EST Laboratory Lab Mobile Phlebotomy [facility] [address] [email or web address] [address] Mvmg, Gml Mobile Home Draw [address] [place] [address] 03/25/2024 7:05 AM EST Laboratory Lab Mobile Phlebotomy [facility] [address] [place], [place] [address] Mvmg, Gml Mobile Home Draw [address] [email or web address] [address] 04/01/2024 7:00 AM EST Laboratory Lab Mobile Phlebotomy [facility] [address] [place] [address] Mvmg, Gml Mobile Home Draw 2520 [place] [address] 04/08/2024 7:05 AM EST Laboratory Lab Mobile Phlebotomy [facility] [address] [place] [address] Mvmg, Gml Mobile Home Draw 2520 [place] [address] 04/15/2024 7:05 AM EST Laboratory Lab Mobile Phlebotomy [facility] [address] [employer] [facility] [place] [address] Mvmg, Gml Mobile Home Draw 2520 [place] [address] 04/22/2024 7:05 AM EST Laboratory Lab Mobile Phlebotomy [facility] 2520 [facility] [place] [address] Mvmg, Gml Mobile Home Draw 2520 [place] [address] 04/29/2024 7:05 AM EST Laboratory Lab Mobile Phlebotomy [facility] [address] [place] [address] Mvmg, Gml Mobile Home Draw [address] [place] [address] 05/05/2024 7:05 AM EST Laboratory Lab Mobile Phlebotomy [facility] [address] [place] [address] Mvmg, Gml Mobile Home Draw [address] [place] [address] 09/02/2024 8:20 AM EDT Office Visit Pulmonary Medicine, [facility] [address] [place] [address] Ish Caba MD [address] [place] [address] 05/03/2025 7:40 AM EST Office Visit Dermatology [address] [place] [address] Albina Romo PA-C [address] [place] [address] [place] [address] Health Maintenance Due Date Last Done Comments [...] this encounter Medical Devices Implanted Type Area Tumbler Dyeing Machine Operator Device Identifier Shelf Expiration Date Model / Serial / Lot Mesh Plug Xlarge [id number] - [id number] Implanted:Qty: 1 on 12/09/2020 by John Zaragoza MD at [facility] Left: Groin CR BARD : DAVOL 05/09/2023 [id number] / / [id number] documented as of this encounter Visit Diagnoses [...] patient have Health Care Power of Attor ccoo? No * Full Code Date Activated Date Inactivated Comments 08/31/2019 9:52 AM 09/16/2019 4:31 PM This order re flects the patients wishes and were consensually agreed upon. Question Answer Comments Discussion of Advance Directives occurred with: Patient/Family Does the patient have a Living Will? No Does the patient have Health Care Power of Attor coco? No Care Teams Electrical Logging Operator Relationship Specialty Start Date End Date Michael Collins MD [address] [place] [address] [place] [address] PCP - General Internal Medicine 03/01/14 documented as of this encounter
--- OUTSIDE RECORDS SUMMARY | 2024-03-26 16:24 | External Medical Summary | Summary of Care ---
Author Name Unknown Organization [facility] Address [address] [facility] [place] [address] Phone [phone] Care Team Providers Care Pit Hand Name Role Phone Michael Collins MD Primary Care Provi zehra Reason for Visit * Reason Comments eRx-Medication Refill Encounter Details Date Type Department Care Team (Late st Contact Info) Description 01/14/2024 Refill Hematology/Oncology Treatment, [place] [address] [place] [phone] Bk Aragon MD 200 [place] [address] Multiple myeloma (HCC) Allergies No known active allergiesdocumented as of this encounter (statuses as of 01/15/2024) Medications Medication Sig Dispensed Refills Start Date End Date Status THEOPHYLLINE ER 450 MG PO TM82Shopsambdka:2 tablet at bedtime Take by mouth. Indications: [...] by mouth. Active Multiple Vitamins-Minerals ([facility] IMMUNITY SUPPORT) CHEW Take by mouth. [...] nostril at bedtime. PATIENT INFORMATION: Kris Galvin [address] [place] [address] [employer]: [employer]/TBD ORDER: Please start nocturnal oxygen via nasal [...] signed) Ish Caba MD Pulmonary Medicine, [address] [place] [address] [place] [facility] Medical License Number: [id number] 1 Each 3 Active metFORMIN HCl ER [...] FOR NAUSEA 90 Tablet 1 4 Active Ondansetron HCl 8 MG Oral [...] as of this encounter (statuses as of 01/15/2024) Active Problems Problem Noted Date Diagnosed Date [...] as of this encounter (statuses as of 01/15/2024) Resolved Problems Problem Noted Date Diagnosed Date Resolved Date Asthma in remission 08/28/2022 08/29/19 Asthma, mild persistent 08/28/202208/11 Asthma, severe persistent 08/28/2022 Stem cell transplant candidate 08/17/2019 09/02/2019 documented as of this encounter (statuses as of 01/15/2024) Immunizations Name Administration Dates Next Due COVID-19 mRNA, LNP-s, No Pre serve, 2-Dose Series (lensgen) 01/17/2021,08/05/2020,07/08/2020 COVID-19, LNP-s, No Preserve , Bryant-sucrose, [...] Telephone Encounter - Morgan Vásquez MD - 01/15/2024 8:38 AM EDT E-prescribed Zofran * Telephone Encounter - Marianne Ware LPN - 01/15/2024 7:55 AM EDT Refill request for Ondansetron Hcl 8 mg tab pended below: Last Refill: 10/09/2023 Last seen: 12/12/2023 Next Appt.: 03/05/2024 documented in this encounter Plan of Treatment Upcoming Encounters Date Type Department Care Team (Late st Contact Info) Description 01/16/2024 8:30 AM EDT Hem/Onc Treatment Hematology[address] [phone] Kenyatta, Chair [address] On[address] [place] [address] 01/22/2024 7:05 AM EDT Laboratory Lab Mobile Phlebotomy [facility] [address] [place] [address] [facility], [facility] Draw [address] [place] [address] 01/23/2024 8:30 AM EDT Hem/Onc Treatment Hematology/Oncology Treatment, [address] [place] [phone] Park, Chair 9 Hem Onc Scenery 200 [facility] [place], [place] [address] 01/29/2024 7:05 AM EDT Laboratory Lab Mobile Phlebotomy [facility] [address] [place] [address] Mvmg, Gml [facility] Draw [address] [place] [address] 01/30/2024 8:30 AM EDT [facility] 200 [place] [phone] Kenyatta, Chair 5 Hem Onc Scenery 200 [facility] [address] [place], [place] [address] 02/05/2024 8:40 AM EDT Office Visit Neurology [facility] 200 [facility] [place], [place] [address] Octavia Goins PA-C 200 [facility] [place], [place] [address] 02/06/2024 8:30 AM EDT [facility] 200 [facility], [place] [phone] Kenyatta, Chair 4 Hem Onc Scenery 200 [facility] [place], [place] [address] 02/07/2024 8:00 AM EDT Office Visit Rheumatology [address] [place] [phone] Darnell Higgins MD [address] [place] [address] 02/12/2024 7:05 AM EDT Laboratory Lab Mobile Phlebotomy [facility] [address] [place] [address] Mvmg, Gml Mobile Home Draw [address] [place] [address] 02/13/2024 8:30 AM EDT Hem/Onc Treatment Hematology/Oncology Treatment, [place] 200 [place] [phone] Kenyatta, Chair 4 Hem Onc Scenery 200 [facility] [place] [address] 02/19/2024 7:05 AM EDT Laboratory Lab Mobile Phlebotomy [facility] [address] [place] [address] Mvmg, Gml Mobile Home Draw [address] [place], [place] [address] 02/20/2024 8:30 AM EDT Hem/Onc Treatment Hematology/Oncology Treatment, [place] 200 [place] [phone] Kenyatta, Chair 7 Hem Onc Scenery 200 [facility] [place] [address] 02/26/2024 7:05 AM EDT Laboratory Lab Mobile Phlebotomy [facility] [address] [place] [address] Mvmg, Gml Mobile Home Draw [address] [place], [place] [address] 02/27/2024 8:30 AM EDT Hem/Onc Treatment Hematology/Oncology Treatment, [place] 200 [place] [address] Kenyatta, Chair 9 Hem Onc Scenery 200 [facility] [place] [address] 03/04/2024 7:00 AM EDT Laboratory Lab Mobile Phlebotomy [facility] [address] [place] [address] Mvmg, Gml Mobile Home Draw [address] [place] [address] 03/05/2024 10:45 AM EDT Office Visit Hematology/Oncology [facility] [place] 200 [facility] [place] [phone] Morgan Vásquez MD [address] [address] 03/05/2024 11:15 AM EDT Hem/Onc Treatment Hematology/Oncology Treatment, [place] [address] [place] [phone] Park, Chair 1 Hem Onc Scenery [address] [place] [address] 03/11/2024 7:05 AM EDT Laboratory Lab Mobile Phlebotomy [facility] [address] [place] [address] Mvmg, Gml Mobile Home Draw 2520 [facility] [place] [address] 03/18/2024 7:05 AM EST Laboratory Lab Mobile Phlebotomy [facility] [address] [place] [address] Mvmg, Gml Mobile Home Draw [address] [place] [address] 03/25/2024 7:05 AM EST Laboratory Lab Mobile Phlebotomy [facility] [address] [place] [address] Mvmg, Gml Mobile Home Draw 2520 [facility] [place] [address] 04/01/2024 7:00 AM EST Laboratory Lab Mobile Phlebotomy [facility] [address] [place] [address] Mvmg, Gml Mobile Home Draw [address] [place] [address] 04/08/2024 7:05 AM EST Laboratory Lab Mobile Phlebotomy [facility] [address] [place] [address] Mvmg, Gml Mobile Home Draw [address] [place] [address] 04/15/2024 7:05 AM EST Laboratory Lab Mobile Phlebotomy [facility] [address] [place] [address] Mvmg, Gml Mobile Home Draw [address] [place] [address] 04/22/2024 7:05 AM EST Laboratory Lab Mobile Phlebotomy [facility] [address] [place], [place] [address] Mvmg, Gml Mobile Home Draw 2520 [facility] [place], [place] [address] 04/29/2024 7:05 AM EST Laboratory Lab Mobile Phlebotomy [facility] [address] [place], [place] [address] Mvmg, Gml Mobile Home Draw 2520 [facility] [place] [address] 05/05/2024 7:05 AM EST Laboratory Lab Mobile Phlebotomy [facility] [address] [place], [place] [address] Mvmg, Gml Mobile Home Draw 25[address] [facility] [place], [place] [address] 09/02/2024 8:20 AM EDT Office Visit Pulmonary Medicine, [facility] [address] [facility] [place] [address] Ihs Caba MD [address] [facility] [place] [address] 05/03/2025 7:40 AM EST Office Visit Dermatology [address] [place] [address] Albina Romo PA-C [address] [place] [address] [place] [address] Health Maintenance Due Date Last Done Comments Depression Screening 1976 Albumin/Creatinine Ratio 1982 Cologuard 2009 Fecal Occult Blood Test 2009 Sigmoidoscopy 2009 Colonoscopy 03/03/2023 03/03/2018, 03/03/2018 Colorectal Cancer Screening 03/03/2023 COVID-19 Vaccine ( season) 2024 01/28/2022, 09/26/2021, 01/17/2021, Additional history exists Lipid Panel 11/18/2024 11/19/2019, 07/11, 07/29/2009 GFR 01/07/2025 01/08/2024, 12/12, 12/25/2023, Additional history exists Diabetes Screening 01/07/2027 01/08/2024, 0 01/01/2024, 12/25/2023, Additional history exists DTap/Tdap Vaccines (4 - [...] this encounter Medical Devices Implanted Type Area Meter/Relay Craftsman Device Identifier Shelf Expiration Date Model / Serial / Lot Mesh Plug Xlarge [id number] - [id number] Implanted:Qty: 1 on 12/09/2020 by John Zaragoza MD at OR [facility] Left: Pamin CR BARD : DAVOL 05/09/2023 [id number] / / [id number] documented as of this encounter Visit Diagnoses [...] Power of Attor coco? No Care Teams Pit Hand Relationship Specialty Start Date End Date Michael Collins MD [address] [place] [address] [place] [address] PCP - General Internal Medicine 03/01/14 documented as of this encounter
--- OUTSIDE RECORDS SUMMARY | 2024-03-26 16:24 | External Medical Summary | Summary of Care ---
Author Name Unknown Organization [facility] Address [address] [facility] [place] [address] Phone [phone] Care Team Providers Care Driving Instructor Name Role Phone Michael Collins MD Primary Care Provi zehra Reason for Visit * Reason Comments Chemotherapy Cytoxan * Episode Based Medications (Routine) - Authorized Specialty Diagnoses / Procedures Referred By Contac t Referred To Contact Diagnoses Multiple myeloma not having achieved remission (HCC) Procedures SD DARATUMUMAB, HYALURONIDASE SD INJ, CYCLOPHOSPHAMIDE, NOS Morgan Vásquez MD [address] [place] [address] Anc Hem/Onc Amena You DEPT CLOSED - 03/26/23 [facility] [place] [address] Referral ID Status Reason Start Date Expiration Date V isits Requested Visits Authorized [id number] Authorized 05/28/2022 05/12/2099 99 99 Encounter Details Date Type Department Care Team (Latest Contact Info) Description 01/02/2024 8:30 AM EDT Hem/Onc Treatment Hematology/Oncolog y Treatment, [place] [address] [place] [address] Kenyatta, Chair 7 Hem Onc Scenery [address] [place] [address] Multiple myeloma not having achieved remission (HCC)*; Encounter for antineoplastic chemotherapy Allergies No known active allergiesdocumented as of this encounter (statuses as of 01/16/2024) Medications Medication Sig Dispensed Refills Start Date End Date Status THEOPHYLLINE ER 450 MG PO YU06Ndijbuhlbhr:2 tablet at bedtime Take by mouth. Indications: [...] CAPS Take by mouth. Active Multiple Vitamins-Minerals ([facility] IMMUNITY SUPPORT) CHEW Take by mouth. [...] nostril at bedtime. PATIENT INFORMATION: Kris Galvin [address] [place] [address] [facility] [employer]ICAL [employer]QU[employer]MENT [employer]: [employer] ORDER: Please start nocturnal oxygen via nasal [...] signed) Ish Caba MD Pulmonary Medicine, [address] [place] [address] [place] [facility] Medical License Number: [id number] 1 Each 3 Active metFORMIN HCl ER [...] mRNA, LNP-s, No Pre serve, 2-Dose Series (CasaRoma) 01/17/2021,08/05/2020,07/08/2020 COVID-19, LNP-s, No Preserve , Bryant-sucrose, [...] EDT Laboratory Lab Mobile Phlebotomy [facility] [address] [place] [address] Mvmg, Gml Mobile Home Draw [address] [employer] [place] [address] 01/23/2024 8:30 AM EDT Hem/Onc Treatment Hematology/Oncology Treatment, [address] [phone] Kenyatta, Chair 9 Hem Onc Scenery [address] [place] [address] [place] [address] 01/29/2024 7:05 AM EDT Laboratory Lab Mobile Phlebotomy [facility] [address] [place] [address] Mvmg, Gml Mobile Home Draw 25[address] [place] [address] 01/30/2024 8:30 AM EDT Hem/Onc Treatment Hematology/Oncology Treatment, [address] [phone] Kenyatta, Chair 5 Hem Onc Scenery [address] [place] [address] [place] [address] 02/05/2024 8:40 AM EDT Office Visit Neurology [facility] [place] 200 [facility] [place] [address] Octavia Goins PA-C 200 [facility] [place] [address] 02/06/2024 8:30 AM EDT Hem/Onc Treatment Hematology/Oncology Treatment, [place] [facility] [phone] Kenyatta, Chair 4 Hem Onc Scenery [address] [place] [address] [place], [place] [address] 02/07/2024 8:00 AM EDT Office Visit Rheumatology [address] [place] [phone] Darnell Higgins MD [address] [place] [address] 02/12/2024 7:05 AM EDT Laboratory Lab Mobile Phlebotomy [facility] [address] [employer] [place], [place] [address] Mvmg, Gml Mobile Home Draw 25[address] [facility] [place], [place] [address] 02/13/2024 8:30 AM EDT Hem/Onc Treatment Hematology/Oncology Treatment, [place] 200 [facility], [place] [phone] Park, Chair 4 Hem Onc Scenery [address] [place] [address] [place], [place] [address] 02/19/2024 7:05 AM EDT Laboratory Lab Mobile Phlebotomy [facility] [address] [employer] [facility] [place] [address] Mvmg, Gml Mobile Home Draw 25[address] [facility] [place], [place] [address] 02/20/2024 8:30 AM EDT Hem/Onc Treatment Hematology/Oncology Treatment, [place] 200 [facility] [address] Park, Chair 7 Hem Onc Scenery 200 [place] [address] 02/26/2024 7:05 AM EDT Laboratory Lab Mobile Phlebotomy [facility] [address] [employer] [facility] [place] [address] Mvmg, Gml Mobile Home Draw [address] [facility] [place], [place] [address] 02/27/2024 8:30 AM EDT Hem/Onc Treatment Hematology/Oncology Treatment, [place] 200 [facility] [address] Kenyatta, Chair 9 Hem Onc Scenery 200 [facility] [place] [address] 03/04/2024 7:00 AM EDT Laboratory Lab Mobile Phlebotomy [facility] [address] [place], [place] [address] Mvmg, Gml Mobile Home Draw 2520 [facility] [place], [place] [address] 03/05/2024 10:45 AM EDT Office Visit Hematology/Oncology [facility] 200 [facility], [place] [phone] Morgan Vásquez MD 200 [facility] [place] [address] 03/05/2024 11:15 AM EDT Hem/Onc Treatment Hematology/Oncology [facility] 200 [facility], [place] [phone] Kenyatta, Chair 1 Hem Onc Scenery 200 [facility] [address] 03/11/2024 7:05 AM EDT Laboratory Lab Mobile Phlebotomy [facility] [address] [place], [place] [address] Mvmg, Gml Mobile Home Draw 25[address] [place] [address] 03/18/2024 7:05 AM EST Laboratory Lab Mobile Phlebotomy [facility] [address] [facility] [place] [address] Mvmg, Gml Mobile Home Draw [address] [place] [address] 03/25/2024 7:05 AM EST Laboratory Lab Mobile Phlebotomy [facility] [address] [place], [place] [address] Mvmg, Gml Mobile Home Draw [address] [facility] [place] [address] 04/01/2024 7:00 AM EST Laboratory Lab Mobile Phlebotomy [facility] [address] [place] [address] Mvmg, Gml Mobile Home Draw [address] [employer] [place] [address] 04/08/2024 7:05 AM EST Laboratory Lab Mobile Phlebotomy [facility] [address] [place] [address] Mvmg, Gml Mobile Home Draw [address] [place] [employer] [place] [address] 04/15/2024 7:05 AM EST Laboratory Lab Mobile Phlebotomy [facility] [address] [place] [address] Mvmg, Gml Mobile Home Draw [address] [place] [employer] [place] [address] 04/22/2024 7:05 AM EST Laboratory Lab Mobile Phlebotomy [facility] [address] [place] [address] Mvmg, Gml Mobile Home Draw [address] [place] [employer] [place] [address] 04/29/2024 7:05 AM EST Laboratory Lab Mobile Phlebotomy [facility] [address] [place] [address] Mvmg, Gml Mobile Home Draw [address] [place] [employer] [place] [address] 05/05/2024 7:05 AM EST Laboratory Lab Mobile Phlebotomy [facility] [address] [employer] [place] [address] Mvmg, Gml Mobile Home Draw [address] [place] [employer] [place] [address] 09/02/2024 8:20 AM EDT Office Visit Pulmonary Medicine, [facility] [address] [place] [address] Ish Caba MD [address] [place] [phone] 05/03/2025 7:40 AM EST Office Visit Dermatology [address] [place] [address] Albina Romo PA-C [address] [place] [address] [place] [address] Health Maintenance Due Date Last Done Comments [...] this encounter Medical Devices Implanted Type Area Prize Jacker Device Identifier Shelf Expiration Date Model / Serial / Lot Mesh Plug Xlarge [id number] - [id number] Implanted:Qty: 1 on 12/09/2020 by John Zaragoza MD at OR [facility] Left: Demond RIVAS BARD : LUCINDA 05/09/2023 [id number] / / [id number] documented as of this encounter Visit Diagnoses [...] Power of Attor coco? No Care Teams Driving Instructor Relationship Specialty Start Date End Date Michael [place] MD [address] [place] [address] [place] [address] PCP - General Internal Medicine 03/01/14 documented as of this encounter
--- OUTSIDE RECORDS SUMMARY | 2024-03-26 16:24 | External Medical Summary | Summary of Care ---
Author Name Unknown Organization [facility] Address [address] [facility] [place] [address] Phone [phone] Care Team Providers Care Housekeeping Cleaner Name Role Phone Michael Collins MD Primary Care Provi zehra Reason for Visit * Reason Comments Chemotherapy Cytoxan * Episode Based Medications (Routine) - Authorized Specialty Diagnoses / Procedures Referred By Contac t Referred To Contact Diagnoses Multiple myeloma not having achieved remission (HCC) Procedures HI DARATUMUMAB, HYALURONIDASE HI INJ, CYCLOPHOSPHAMIDE, NOS Morgan Vásquez MD [address] [place] [address] Anc Hem/Onc Amena You DEPT CLOSED - 03/26/23 200 [facility] [place] [address] Referral ID Status Reason Start Date Expiration Date V isits Requested Visits Authorized [id number] Authorized 05/28/2022 05/12/2099 99 99 Encounter Details Date Type Department Care Team (Latest Contact Info) Description 01/02/2024 8:30 AM EDT Hem/Onc Treatment Hematology/Oncolog y Treatment, [place] [address] [place] [address] Kenyatta, Chair 7 Hem Onc Scenery [address] [place] [address] Multiple myeloma not having achieved remission (HCC)*; Encounter for antineoplastic chemotherapy Allergies No known active allergiesdocumented as of this encounter (statuses as of 01/16/2024) Medications Medication Sig Dispensed Refills Start Date End Date Status THEOPHYLLINE ER 450 MG PO [id number]:2 tablet at bedtime Take by mouth. Indications: [...] CAPS Take by mouth. Active Multiple Vitamins-Minerals ([facility] IMMUN[facility] SUPPORT) CHEW Take by [...] nostril at bedtime. PATIENT INFORMATION: Kris Galvin [address] [place] [address] [employer]: [employer] ORDER: Please start nocturnal oxygen via nasal [...] signed) Ish Caba MD Pulmonary Medicine, [address] [place] [address] [place] [facility] Medical License Number: [id number] 1 Each 3 Active metFORMIN HCl ER [...] mRNA, LNP-s, No Pre serve, 2-Dose Series ([employer]) 01/17/2021,08/05/2020,07/08/2020 COVID-19, LNP-s, No Preserve , Bryant-sucrose, [...] EDT Laboratory Lab Mobile Phlebotomy [facility] [address] [place] [address] M[facility], G[facility] Mobile Home Draw [address] [place] [address] 01/23/2024 8:30 AM EDT Hem/Onc Treatment Hematology/[address], [address] [phone] Kenyatta, Chair 9 Hem Onc Scenery [address] [place] [address] [place] [address] 01/29/2024 7:05 AM EDT Laboratory Lab Mobile Phlebotomy [facility] [address] [place] [address] Mvmg, Gml Mobile Home Draw 2520 [place] [address] 01/30/2024 8:30 AM EDT Hem/Onc Treatment Hematology/[address], [address] [phone] Kenyatta, Chair 5 Hem Onc Scenery [address] [place] [address] [place] [address] 02/05/2024 8:40 AM EDT Office Visit Neurology [facility] [place] 200 [facility] [place] [address] Octavia Goins PA-C 200 [facility] [place] [address] 02/06/2024 8:30 AM EDT Hem/Onc Treatment [facility]ology[facility]cology [facility], [place] [facility] [phone] Kenyatta, Chair 4 Hem Onc Scenery [address] [place] [address] [place], [place] [address] 02/07/2024 8:00 AM EDT Office Visit Rheumatology [address] [place] [phone] Darnell Higgins MD [address] [place] [address] 02/12/2024 7:05 AM EDT Laboratory Lab Mobile Phlebotomy [facility] [address] [place], [place] [address] Mvmg, Gml Mobile Home Draw 25[address] [facility] [place], [place] [address] 02/13/2024 8:30 AM EDT Hem/Onc Treatment Hematology/Oncology Treatment, [place] 200 [facility], [place] [phone] Park, Chair 4 Hem Onc Scenery [address] [place] [address] [place], [place] [address] 02/19/2024 7:05 AM EDT Laboratory Lab Mobile Phlebotomy [facility] [address] [facility] [place] [address] Mvmg, Gml Mobile Home Draw [address] [facility] [place], [place] [address] 02/20/2024 8:30 AM EDT Hem/Onc Treatment Hematology/Oncology Treatment, [place] 200 [facility] [place] [address] Park, Chair 7 Hem Onc Scenery 200 [place] [address] 02/26/2024 7:05 AM EDT Laboratory Lab Mobile Phlebotomy [facility] [address] [facility] [facility] [place] [address] Mvmg, Gml Mobile Home Draw [address] [facility] [place], [place] [address] 02/27/2024 8:30 AM EDT Hem/Onc Treatment Hematology/Oncology Treatment, [place] 200 [facility] [place] [phone] Kenyatta, Chair 9 Hem Onc Scenery 200 [place] [address] 03/04/2024 7:00 AM EDT Laboratory Lab Mobile Phlebotomy [facility] [address] [place], [place] [address] Mvmg, Gml Mobile Home Draw [address] [facility] [place], [place] [address] 03/05/2024 10:45 AM EDT Office Visit Hematology/Oncology [facility] 200 [facility], [place] [phone] Morgan Vásquez MD 200 [place] [address] 03/05/2024 11:15 AM EDT Hem/Onc Treatment Hematology/Oncology [facility] 200 [facility], [place] [phone] Kenyatta, Chair 1 Hem Onc Scenery 200 [place] [address] 03/11/2024 7:05 AM EDT Laboratory Lab Mobile Phlebotomy [facility] [address] [place], [place] [address] Mvmg, Gml Mobile Home Draw [address] [place] [address] 03/18/2024 7:05 AM EST Laboratory Lab Mobile Phlebotomy [facility] [address] [facility] [place] [address] Mvmg, Gml Mobile Home Draw [address] [place] [address] 03/25/2024 7:05 AM EST Laboratory Lab Mobile Phlebotomy [facility] [address] [place], [place] [address] Mvmg, Gml Mobile Home Draw 2520 [facility] [place] [address] 04/01/2024 7:00 AM EST Laboratory Lab Mobile Phlebotomy [facility] [address] [place] [address] Mvmg, Gml Mobile Home Draw [address] [place] [address] 04/08/2024 7:05 AM EST Laboratory Lab Mobile Phlebotomy [facility] [address] [place] [address] Mvmg, Gml Mobile Home Draw [address] [place] [address] 04/15/2024 7:05 AM EST Laboratory Lab Mobile Phlebotomy [facility] [address] [place] [address] Mvmg, Gml Mobile Home Draw [address] [place] [address] 04/22/2024 7:05 AM EST Laboratory Lab Mobile Phlebotomy [facility] [address] [place] [address] Mvmg, Gml Mobile Home Draw [address] [place] [place] [address] 04/29/2024 7:05 AM EST Laboratory Lab Mobile Phlebotomy [facility] [address] [place] [address] Mvmg, Gml Mobile Home Draw [address] [facility] [address] 05/05/2024 7:05 AM EST Laboratory Lab Mobile Phlebotomy [facility] [address] [facility] [place] [address] Mvmg, Gml Mobile Home Draw [address] [place] [address] 09/02/2024 8:20 AM EDT Office Visit Pulmonary Medicine, [facility] [address] [place] [address] Ish Caba MD [address] [place] [phone] 05/03/2025 7:40 AM EST Office Visit Dermatology [address] [place] [address] Albina Romo PA-C [address] [place] [address] [place] [address] Health Maintenance Due Date Last Done Comments [...] this encounter Medical Devices Implanted Type Area Supervisor Dimension Warehouse Device Identifier Shelf Expiration Date Model / Serial / Lot Mesh Plug Xlarge [id number] - [id number] Implanted:Qty: 1 on 12/09/2020 by John Zaragoza MD at OR [facility] Left: Demond RIVAS BARD : LUCINDA 05/09/2023 [id number] / / [id number] documented as of this encounter Visit Diagnoses [...] Power of Attor coco? No Care Teams Housekeeping Cleaner Relationship Specialty Start Date End Date Michael Collins MD [address] [place] [address] [place] [address] PCP - General Internal Medicine 03/01/14 documented as of this encounter
--- OUTSIDE RECORDS SUMMARY | 2024-03-26 16:24 | External Medical Summary ---
Author Name Unknown Address Unknown Organization K01:[facility] [place] [address] [place] [address] Laboratory Report Ordering Provider Test Date Status KALPESH SERRANO 01/15/2024 09:02:00 Final Observation Date Value Abnormality Reference (Units ) Status SYNC LEUKOCYTES IN BLOOD BY AUTOMATED COUNT 01/15/2024 09:02:00 4.15 4.00-10.80 (K/uL) Final Segs 01/15/2024 09:02:00 71.9 40.0-75.0 (%) Final Lymphs % 01/15/2024 09:02:00 12.8 Below low normal 18.0-42.0 (%) Final Monos 01/15/2024 09:02:00 13.0 Above high normal 1.0-11.0 (%) Final Eosinophils 01/15/2024 09:02:00 1.9 0.0-6.0 (%) Final Basos 01/15/2024 09:02:00 0.2 0.0-2.0 (%) Final Immature Granulocyte, Percent 01/15/2024 09:02:00 0.2 0.0-2.0 (%) Final Absolute Segs 01/15/2024 09:02:00 2.98 1.80-7.70 (K/uL) Final Lymphs, absolute 01/15/2024 09:02:00 0.53 Below low normal 1.00-4.80 (K/ul) Final Monos, Abs 01/15/2024 09:02:00 0.54 0.00-1.10 (K/uL) Final Eos, Abs 01/15/2024 09:02:00 0.08 0.00-0.70 (K/uL) Final Basos, Abs 01/15/2024 09:02:00 0.01 0.00-0.20 (K/uL) Final Immature Granulocytes, Number 01/15/2024 09:02:00 0.01 0.00-0.20 (K/uL) Final Performing Location [facility] [place] [facility] N Josselin Peña. [facility] [address]
--- OUTSIDE RECORDS SUMMARY | 2024-03-26 16:24 | External Medical Summary | Summary of Care ---
Author Name Unknown Organization [facility] [address] [facility] [address] Phone [phone] Care Team Providers Care Medical Laboratory Technicians Name Role Phone Michael Collins MD Primary Care Provi zehra Reason for Visit * Reason Comments Chemotherapy C40 D8 Cytoxan for M M * Episode Based Medications (Routine) - Authorized Specialty Diagnoses / Procedures Referred By Contac t Referred To Contact Diagnoses Multiple myeloma not having achieved remission (HCC) Procedures ME DARATUMUMAB, HYALURONIDASE ME INJ, CYCLOPHOSPHAMIDE, NOS Morgan Vásquez MD [address] [place] [address] Anc Hem/Onc Amena You DEPT CLOSED - 03/26/[address] [facility] [place] [address] Referral ID Status Reason Start Date Expiration Date V isits Requested Visits Authorized [id number] Authorized 05/28/2022 05/12/2099 99 99 Encounter Details Date Type Department Care Team (Latest Contact Info) Description 01/16/2024 8:30 AM EDT Hem/Onc Treatment Hematology/Oncolog y Treatment, [place] [address] [place] [phone] Kenyatta, Chair 7 Hem Onc Scenery [address] [place] [address] Multiple myeloma not having achieved remission (HCC)*; Encounter for antineoplastic chemotherapy Allergies No known active allergiesdocumented as of this encounter (statuses as of 01/16/2024) Medications Medication Sig Dispensed Refills Start Date End Date Status THEOPHYLLINE ER 450 MG PO MP49Xbxcxlshnkr:2 tablet at bedtime Take by mouth. Indications: [...] nostril at bedtime. PATIENT INFORMATION: Kris Galvin [address] [place] [address] [employer]: [employer] ORDER: Please start nocturnal oxygen via nasal [...] best of my knowledge. (electronically signed) Ish Cbaa MD Pulmonary Medicine, [address] [place] [address] [place] [facility] Medical License Number: [id number] 1 Each 09/21/2022 Active metFORMIN HCl ER [...] mRNA, LNP-s, No Pre serve, 2-Dose Series ([employer]) 01/17/2021,08/05/2020,07/08/2020 COVID-19, LNP-s, No Preserve , Bryant-sucrose, Ages 12+ ([employer]) 09/26/2021 DTaP Dipth/Tet/Acell Pertussis ([employer]), Peds 02/23/2021,11/11/2020,09/09/2020 [...] Mobile Phlebotomy [facility] [address] [place] [address] Mv[facility], Gml Mobile Home Draw [address] [place] [address] 01/23/2024 8:30 AM EDT Hem/Onc Treatment Hematology/Oncology Treatment, [address] [phone] Kenyatta, Chair 9 Hem Onc Scenery [address] [place] [address] 01/29/2024 7:05 AM EDT Laboratory Lab Mobile Phlebotomy [facility] [address] [place] [address] Mvmg, Gml Mobile Home Draw [address] [place] [address] 01/30/2024 8:30 AM EDT Hem[facility] [phone] Park, Chair 5 Hem Onc Scenery 200 [facility] [place] [address] 02/05/2024 8:40 AM EDT Office Visit Neurology [facility] [place] [facility] [place] [address] Octavia Goins PA-C 200 [facility] [place] [address] 02/06/2024 8:30 AM EDT Hem/Onc Treatment Hematology/Oncology Treatment, [place] [facility] [phone] Kenyatta, Chair 4 Hem Onc Scenery [address] [place] [address] 02/07/2024 8:00 AM EDT Office Visit Rheumatology [address] [place] [phone] Darnell Higgins MD [address] [place], [place] [address] 02/12/2024 7:05 AM EDT Laboratory Lab Mobile Phlebotomy [facility] [address] [place], [place] [address] Mvmg, Gml Mobile Home Draw [address] [place], [place] [address] 02/13/2024 8:30 AM EDT Hem[facility]Onc [facility] 200 [facility], [place] [phone] Kenyatta, Chair 4 Hem Onc Scenery 200 [facility] [place], [place] [address] 02/19/2024 7:05 AM EDT Laboratory Lab Mobile Phlebotomy [facility] [address] [place] [address] Mvmg, Gml Mobile Home Draw [address] [place], [place] [address] 02/20/2024 8:30 AM EDT Hem/Onc [facility] 200 [place] [phone] Kenyatta, Chair 7 Hem Onc Scenery 200 [facility] [place] [address] 02/26/2024 7:05 AM EDT Laboratory Lab Mobile Phlebotomy [facility] [address] [place], [place] [address] Mvmg, Gml Mobile Home Draw [address] [place] [address] 02/27/2024 8:30 AM EDT Hem/Onc Treatment Hematology/Oncology Treatment, [place] 200 [place] [phone] Kenyatta, Chair 9 Hem Onc Scenery 200 [facility] [place] [address] 03/04/2024 7:00 AM EDT Laboratory Lab Mobile Phlebotomy [facility] [address] [place] [address] Mvmg, Gml Mobile Home Draw 2520 [facility] [place], [place] [address] 03/05/2024 10:45 AM EDT Office Visit Hematology/Oncology [facility] 200 [facility] [place] [phone] Morgan Vásquez MD 200 [facility] [place] [address] 03/05/2024 11:15 AM EDT Hem/Onc Treatment [facility] 200 [facility], [place] [phone] Kenyatta, Chair 1 Hem Onc Scenery 200 [facility] [place] [address] 03/11/2024 7:05 AM EDT Laboratory Lab Mobile Phlebotomy [facility] [address] [place], [place] [address] Mvmg, Gml Mobile Home Draw [address] [place] [address] 03/18/2024 7:05 AM EST Laboratory Lab Mobile Phlebotomy [facility] [address] [place] [address] Mvmg, Gml Mobile Home Draw [address] [place] [address] 03/25/2024 7:05 AM EST Laboratory Lab Mobile Phlebotomy [facility] [address] [place], [place] [address] Mvmg, Gml Mobile Home Draw [address] [place] [address] 04/01/2024 7:00 AM EST Laboratory Lab Mobile Phlebotomy [facility] [address] [place] [address] Mvmg, Gml Mobile Home Draw 2520 [place] [address] 04/08/2024 7:05 AM EST Laboratory Lab Mobile Phlebotomy [facility] [address] [place] [address] Mvmg, Gml Mobile Home Draw [address] [place] [address] 04/15/2024 7:05 AM EST Laboratory Lab Mobile Phlebotomy [facility] [address] [place] [address] Mvmg, Gml Mobile Home Draw 25[address] [place] [address] 04/22/2024 7:05 AM EST Laboratory Lab Mobile Phlebotomy [facility] 2520 [facility] [place] [address] Mvmg, Gml Mobile Home Draw 25[address] [place] [address] 04/29/2024 7:05 AM EST Laboratory Lab Mobile Phlebotomy [facility] [address] [place] [address] Mvmg, Gml Mobile Home Draw [address] [place] [address] 05/05/2024 7:05 AM EST Laboratory Lab Mobile Phlebotomy [facility] [address] [place] [address] Mvmg, Gml Mobile Home Draw [address] [place] [address] 09/02/2024 8:20 AM EDT Office Visit Pulmonary Medicine, [facility] [address] [place] [address] Ish Caba MD [address] [place] [address] 05/03/2025 7:40 AM EST Office Visit Dermatology [address] [place] [address] Albina Romo PA-C [address] [place] [address] [place] [address] Health Maintenance Due Date Last Done Comments [...] this encounter Medical Devices Implanted Type Area Peer Support Specialist Device Identifier Shelf Expiration Date Model / Serial / Lot Mesh Plug Xlarge [id number] - [id number] Implanted:Qty: 1 on 12/09/2020 by John Zaragoza MD at OR [facility] Left: Groin CR BARD : DAVOL 05/09/2023 [id number] / / [id number] documented as of this encounter Visit Diagnoses [...] ONCE PRN Other, Hypersensitivity Reaction, Starting on Sat01/16/24 at 0831, Until Sat01/17/24 at 0830, For 24 hours EPINEPHrine 1 MG/ML inj 0.3 mg 0.3 mg, Intramuscular, ONCE PRN Other, Hypersensitivity Reaction or Anaphylaxis, Starting on Sat01/16/24 at 0831, Until Sat01/17/24 at 0830, For 24 hours hEParin 100 UNIT/ML Lock Flush inj 500 Units 500 Units (5 mL), IV Lock, PRN Other, IV Flush, Starting on Sat01/16/24 at 0831, Until Sat01/17/24 at 0830, For 24 hours, Do not flush if lock, PICC, or central line not in place; IV infusing or unable to flush. Hydrocortisone Sod Suc (PF) (Solu-Cortef) inj 100 mg 100 mg, IV Push, ONCE PRN Other, Hypersensitivity Reaction, Starting on Sat01/16/24 at 0831, Until Sat01/17/24 at 0830, For 24 hours meperidine (Demerol) 25 MG/ML inj 25 mg 25 mg, IV Push, ONCE PRN Shivering, Starting on Sat01/16/24 at 0831, Until Sat01/17/24 at 0830, For 24 hours NSS infusion FOR HYDRATION Intravenous, at 50 mL/hr Administer over 10 Hours, CONTINUOUS, Starting on Lilibeth 01/16/24 at 0915, Until Discontinued Start Infusion 01/16/2024 9:06 AM EDT 500 mL 50 mL/hr sodium chloride 0.9 % flush central line 10 mL 10 mL, IV Push, PRN Other, IV Flush, Starting on Lilibeth 01/16/24 at 0831, Until Sat01/17/24 at 0830, For 24 hours, Do not flush if [...] 9:13 AM EDT 1,000 mL 500 mL/hr ondansetron [...] Power of Attor coco? No Care Teams Medical Laboratory Technicians Relationship Specialty Start Date End Date Michael Collins MD [address] [place] [address] [place] [address] PCP - General Internal Medicine 03/01/14 documented as of this encounter
--- OUTSIDE RECORDS SUMMARY | 2024-03-26 16:24 | External Medical Summary | Summary of Care ---
Author Name Unknown Organization [facility] Address [address] [facility] [place] [address] Phone [phone] Care Team Providers Care Yard Hostler Name Role Phone Michael Collins MD Primary Care Provi zehra Reason for Visit * Reason Comments Chemotherapy Cytoxan * Episode Based Medications (Routine) - Authorized Specialty Diagnoses / Procedures Referred By Contac t Referred To Contact Diagnoses Multiple myeloma not having achieved remission (HCC) Procedures CO DARATUMUMAB, HYALURONIDASE CO INJ, CYCLOPHOSPHAMIDE, NOS Morgan Vásquez MD [address] [place] [address] Anc Hem/Onc Amena You DEPT CLOSED - 03/26/23 200 [facility] [place] [address] Referral ID Status Reason Start Date Expiration Date V isits Requested Visits Authorized [id number] Authorized 05/28/2022 05/12/2099 99 99 Encounter Details Date Type Department Care Team (Latest Contact Info) Description 01/02/2024 8:30 AM EDT Hem/Onc Treatment Hematology/Oncolog y Treatment, [place] [address] [place] [address] Kenyatta, Chair 7 Hem Onc Scenery [address] [place] [address] Multiple myeloma not having achieved remission (HCC)*; Encounter for antineoplastic chemotherapy Allergies No known active allergiesdocumented as of this encounter (statuses as of 01/16/2024) Medications Medication Sig Dispensed Refills Start Date End Date Status THEOPHYLLINE ER 450 MG PO [id number]:2 tablet at bedtime Take by mouth. Indications: [...] CAPS Take by mouth. Active Multiple Vitamins-Minerals ([facility] IMMUNITY SUPPORT) CHEW Take by mouth. Active [...] nostril at bedtime. PATIENT INFORMATION: Kris Galvin [address] [place] [address] [employer]: [email or web address] ORDER: Please start nocturnal oxygen via nasal [...] (electronically signed) Ish Caba MD Pulmonary Medicine, [address] [place] [address] [place] [facility] Medical License Number: [id number] 1 Each 3 Active metFORMIN HCl ER [...] LNP-s, No Pre serve, 2-Dose Series ([employer]) 01/17/2021,08/05/2020,07/08/2020 COVID-19, LNP-s, No Preserve , Bryant-sucrose, [...] EDT Laboratory Lab Mobile Phlebotomy [facility] [address] [place] [address] M[facility]mg, Gml Mobile Home Draw [address] [place] [address] 01/23/2024 8:30 AM EDT Hem/Onc Treatment Hematology/[address], [address] [phone] Kenyatta, Chair 9 Hem Onc Scenery [address] [place] [address] [place] [address] 01/29/2024 7:05 AM EDT Laboratory Lab Mobile Phlebotomy [facility] [address] [place] [address] Mvmg, Gml Mobile Home Draw 2520 [facility] [place] [address] 01/30/2024 8:30 AM EDT Hem/Onc Treatment Hematology/Oncology Treatment, [address] [phone] Kenyatta, Chair 5 Hem Onc Scenery [address] [place] [address] [place] [address] 02/05/2024 8:40 AM EDT Office Visit Neurology [facility] [place] 200 [facility] [place] [address] Octavia Goins PA-C 200 [facility] [place] [address] 02/06/2024 8:30 AM EDT Hem/Onc Treatment Hematology/Oncology Treatment, [place] [facility] [phone] Kenyatta, Chair 4 Hem Onc Scenery [address] [place] [address] [place], [place] [address] 02/07/2024 8:00 AM EDT Office Visit Rheumatology [address] [place] [phone] Darnell Higgins MD [address] [place] [address] 02/12/2024 7:05 AM EDT Laboratory Lab Mobile Phlebotomy [facility] [address] [place], [place] [address] Mvmg, Gml Mobile Home Draw 2520 [facility] [place], [place] [address] 02/13/2024 8:30 AM EDT Hem/Onc Treatment Hematology/Oncology Treatment, [place] 200 [facility], [place] [phone] Park, Chair 4 Hem Onc Scenery [address] [place] [address] [place], [place] [address] 02/19/2024 7:05 AM EDT Laboratory Lab Mobile Phlebotomy [facility] [address] [employer] [facility] [place] [address] Mvmg, Gml Mobile Home Draw 2520 [facility] [place], [place] [address] 02/20/2024 8:30 AM EDT Hem/Onc Treatment Hematology/Oncology Treatment, [place] 200 [place] [address] Park, Chair 7 Hem Onc Scenery 200 [facility] [place] [address] 02/26/2024 7:05 AM EDT Laboratory Lab Mobile Phlebotomy [facility] [address] [employer] [facility] [place] [address] Mvmg, Gml Mobile Home Draw 25[address] [facility] [place], [place] [address] 02/27/2024 8:30 AM EDT Hem/Onc Treatment Hematology/Oncology Treatment, [place] [address] [place] [phone] Kenyatta, Chair 9 Hem Onc Scenery 200 [facility] [place] [address] 03/04/2024 7:00 AM EDT Laboratory Lab Mobile Phlebotomy [facility] [address] [place], [place] [address] Mvmg, Gml Mobile Home Draw 2520 [facility] [place], [place] [address] 03/05/2024 10:45 AM EDT Office Visit Hematology/Oncology [facility] 200 [facility], [place] [phone] Morgan Vásquez MD 200 [facility] [place] [address] 03/05/2024 11:15 AM EDT Hem/Onc Treatment Hematology/Oncology [facility] 200 [facility], [place] [phone] Kenyatta, Chair 1 Hem Onc Scenery 200 [facility] [place] [address] 03/11/2024 7:05 AM EDT Laboratory Lab Mobile Phlebotomy [facility] [address] [place], [place] [address] Mvmg, Gml Mobile Home Draw 2520 [facility] [place] [address] 03/18/2024 7:05 AM EST Laboratory Lab Mobile Phlebotomy [facility] [address] [facility] [place] [address] Mvmg, Gml Mobile Home Draw 2520 [facility] [place] [address] 03/25/2024 7:05 AM EST Laboratory Lab Mobile Phlebotomy [facility] [address] [place], [place] [address] Mvmg, Gml Mobile Home Draw 25[address] [facility] [place] [address] 04/01/2024 7:00 AM EST Laboratory Lab Mobile Phlebotomy [facility] [address] [place] [address] Mvmg, Gml Mobile Home Draw [address] [place] [address] 04/08/2024 7:05 AM EST Laboratory Lab Mobile Phlebotomy [facility] [address] [place] [address] Mvmg, Gml Mobile Home Draw [address] [place] [address] 04/15/2024 7:05 AM EST Laboratory Lab Mobile Phlebotomy [facility] [address] [place] [address] Mvmg, Gml Mobile Home Draw [address] [place] [address] 04/22/2024 7:05 AM EST Laboratory Lab Mobile Phlebotomy [facility] [address] [place] [address] Mvmg, Gml Mobile Home Draw [address] [place] [address] 04/29/2024 7:05 AM EST Laboratory Lab Mobile Phlebotomy [facility] [address] [place] [address] Mvmg, Gml Mobile Home Draw [address] [place] [address] 05/05/2024 7:05 AM EST Laboratory Lab Mobile Phlebotomy [facility] [address] [place] [address] Mvmg, Gml Mobile Home Draw [address] [address] 09/02/2024 8:20 AM EDT Office Visit Pulmonary Medicine, [facility] [address] [place] [address] Ish Caba MD [address] [place] [phone] 05/03/2025 7:40 AM EST Office Visit Dermatology [address] [place] [address] Albina Romo PA-C [address] [place] [address] [place] [address] Health Maintenance Due Date Last Done Comments [...] this encounter Medical Devices Implanted Type Area Lab Support Service Tech Device Identifier Shelf Expiration Date Model / Serial / Lot Mesh Plug Xlarge [id number] - [id number] Implanted:Qty: 1 on 12/09/2020 by John Zaragoza MD at OR [facility] Left: Demond RIVAS BARD : LUCINDA 05/09/2023 [id number] / / [id number] documented as of this encounter Visit Diagnoses [...] Power of Attor coco? No Care Teams Yard Hostler Relationship Specialty Start Date End Date Michael Collins MD [address] [place] [address] [place] [address] PCP - General Internal Medicine 03/01/14 documented as of this encounter
--- OUTSIDE RECORDS SUMMARY | 2024-03-26 16:24 | External Medical Summary ---
Author Name Unknown Address Unknown Organization K01:LABORATORY [facility] [place] - [address] [facility] [address] Laboratory Report Ordering Provider Test Date Status KALPESH SERRANO 01/15/2024 09:02:00 Final Observation Date Value Abnormality Reference (Units ) Status WBC, Total 01/15/2024 09:02:00 4.15 4.00-10.80 (K/uL) Final RBC 01/15/2024 09:02:00 4.03 4.50-5.25 (M/uL) Final Hemoglobin 01/15/2024 09:02:00 14.2 14.0-16.8 (g/dL) Final HCT 01/15/2024 09:02:00 43.4 40.0-48.4 (%) Final MCV 01/15/2024 09:02:00 107.7 82.0-99.5 (fL) Final MCH 01/15/2024 09:02:00 35.2 27.0-34.0 (pg) Final MCHC 01/15/2024 09:02:00 32.7 32.0-36.0 (g/dL) Final RDW 01/15/2024 09:02:00 14.6 11.5-15.5 (%) Final Platelets 01/15/2024 09:02:00 101 Below low normal 140-400 (K/uL) Final MPV 01/15/2024 09:02:00 11.3 6.6-11.1 (fL) Final Nucleated erythrocytes/100 leukocytes [Ratio] in Blood by Automated count 01/15/2024 09:02:00 0 <=0 (/100 WBCs) Final Performing Location LABORATORY [facility] - [address] [place] [address]
--- OUTSIDE RECORDS SUMMARY | 2024-03-26 16:24 | External Medical Summary ---
Author Name Unknown Address Unknown Organization K01:[facility] [place] [address] [facility] [place] [address] Laboratory Report Ordering Provider Test Date Status KALPESH SERRANO 01/15/2024 09:02:00 Final Observation Date Value Abnormality Reference (Units ) Status BUN 01/15/2024 09:02:00 16 6-20 (mg/dL) Final Creatinine 01/15/2024 09:02:00 1.0 0.6-1.2 (mg/dL) Final Glomerular filtration rate/1.73 sq M.predicted [Volume Rate/Area] in Serum, Plasma or Blood by Creatinine-based formula (CKD-EPI) 01/15/2024 09:02:00 85 >=60 (mL/min) Final eGFR is calculated based on the CKD-EPI 2020 equation. Sodium 01/15/2024 09:02:00 137 135-146 (m mol/L) Final Potassium 01/15/2024 09:02:00 4.1 3.5-5.1 (m mol/L) Final Cl 01/15/2024 09:02:00 97 Below low normal 98- 107 (mmol/L) Final CO2 01/15/2024 09:02:00 30 22-32 (mmo l/L) Final Anion gap 01/15/2024 09:02:00 10 7-15 (mmol /L) Final Glucose 01/15/2024 09:02:00 104 70-120 (mg /dL) Final Albumin 01/15/2024 09:02:00 4.3 3.8-5.0 (g /dL) Final AST (Aspartate aminotransferase) 01/15/2024 09:02:00 16 10-50 (U/L) Fin al Alk Phos 01/15/2024 09:02:00 116 35-130 (U/ L) Final Bilirubin, Total 01/15/2024 09:02:00 0.3 <=1 .2 (mg/dL) Final Calcium 01/15/2024 09:02:00 9.3 8.4-10.2 ( mg/dL) Final Protein 01/15/2024 09:02:00 6.0 6.0-8.3 (g /dL) Final ALT (Alanine aminotransferase) 01/15/2024 09:02:00 19 10-50 (U/L) Regis figueroa Performing Location [facility] [place] [facility] [address] [facility] [address]
--- OUTSIDE RECORDS SUMMARY | 2024-03-26 16:24 | External Medical Summary | Summary of Care ---
Author Name Unknown Organization [facility] Address [address] [facility] [place] [address] Phone [phone] Care Team Providers Care Spring Assembler Supervisor Name Role Phone Michael Collins MD Primary Care Provi zehra Reason for Visit * Reason Comments Chemotherapy Cytoxan * Episode Based Medications (Routine) - Authorized Specialty Diagnoses / Procedures Referred By Contac t Referred To Contact Diagnoses Multiple myeloma not having achieved remission (HCC) Procedures AR DARATUMUMAB, HYALURONIDASE AR INJ, CYCLOPHOSPHAMIDE, NOS Morgan Vásquez MD [address] [place] [address] Anc Hem/Onc Amena You DEPT CLOSED - 03/26/23 200 [facility] [place] [address] Referral ID Status Reason Start Date Expiration Date V isits Requested Visits Authorized [id number] Authorized 05/28/2022 05/12/2099 99 99 Encounter Details Date Type Department Care Team (Latest Contact Info) Description 01/02/2024 8:30 AM EDT Hem/Onc Treatment Hematology/Oncolog y Treatment, [place] [address] [place] [phone] Kenyatta, Chair 7 Hem Onc Scenery [address] [place] [address] Multiple myeloma not having achieved remission (HCC)*; Encounter for antineoplastic chemotherapy Allergies No known active allergiesdocumented as of this encounter (statuses as of 01/16/2024) Medications Medication Sig Dispensed Refills Start Date End Date Status THEOPHYLLINE ER 450 MG PO BF43Kaxunezuogj:2 tablet at bedtime Take by mouth. Indications: [...] nostril at bedtime. PATIENT INFORMATION: Kris Galvin [address] [place] [address] [employer]: [email or web address] ORDER: Please start nocturnal oxygen via nasal [...] signed) Ish Caba MD Pulmonary Medicine, [address] [place] [address] [place] [facility] Medical License Number: [id number] 1 Each 3 Active metFORMIN HCl ER [...] mRNA, LNP-s, No Pre serve, 2-Dose Series (Go[employer]) 01/17/2021,08/05/2020,07/08/2020 COVID-19, LNP-s, No Preserve , Bryant-sucrose, [...] EDT Laboratory Lab Mobile Phlebotomy [facility] [address] [place] [address] Mvmg, Gml Mobile Home Draw [address] [place] [address] 01/23/2024 8:30 AM EDT Hem/Onc Treatment Hematology/Oncology Treatment, [address] [phone] Kenyatta, Chair 9 Hem Onc Scenery [address] [place] [address] [place] [address] 01/29/2024 7:05 AM EDT Laboratory Lab Mobile Phlebotomy [facility] [address] [facility] [place] [address] Mvmg, Gml Mobile Home Draw [address] [place] [address] 01/30/2024 8:30 AM EDT Hem/Onc Treatment Hematology/Oncology Treatment, [address] [phone] Kenyatta, Chair 5 Hem Onc Scenery [address] [place] [address] [place] [address] 02/05/2024 8:40 AM EDT Office Visit Neurology [facility] [place] 200 [facility] [place] [address] Octavia Goins PA-C 200 [facility] [place] [address] 02/06/2024 8:30 AM EDT Hem/Onc Treatment Hematology/[facility]cology Treatment, [place] 200 [facility] [phone] Kenyatta, Chair 4 Hem Onc Scenery [address] [place] [address] [place], [place] [address] 02/07/2024 8:00 AM EDT Office Visit Rheumatology [address] [place] [phone] Darnell Higgins MD 2520 [facility] [place] [address] 02/12/2024 7:05 AM EDT Laboratory Lab Mobile Phlebotomy [facility] [address] [facility] [place], [place] [address] Mvmg, Gml Mobile Home Draw [address] [facility] [place], [place] [address] 02/13/2024 8:30 AM EDT Hem/Onc Treatment Hematology/Oncology Treatment, [place] 200 [facility], [place] [phone] Park, Chair 4 Hem Onc Scenery [address] [place] [address] [place], [place] [address] 02/19/2024 7:05 AM EDT Laboratory Lab Mobile Phlebotomy [facility] [address] [employer] [facility] [place] [address] Mvmg, Gml Mobile Home Draw [address] [facility] [place], [place] [address] 02/20/2024 8:30 AM EDT Hem/Onc Treatment Hematology/Oncology Treatment, [place] 200 [facility] [place] [address] Park, Chair 7 Hem Onc Scenery 200 [place] [address] 02/26/2024 7:05 AM EDT Laboratory Lab Mobile Phlebotomy [facility] [address] [employer] [facility] [place] [address] Mvmg, Gml Mobile Home Draw [address] [facility] [place], [place] [address] 02/27/2024 8:30 AM EDT Hem/Onc Treatment Hematology/Oncology Treatment, [place] 200 [facility] [place] [phone] Kenyatta, Chair 9 Hem Onc Scenery 200 [place] [address] 03/04/2024 7:00 AM EDT Laboratory Lab Mobile Phlebotomy [facility] [address] [place], [place] [address] Mvmg, Gml Mobile Home Draw [address] [facility] [place], [place] [address] 03/05/2024 10:45 AM EDT Office Visit Hematology/Oncology [facility] 200 [facility], [place] [phone] Morgan Vásquez MD 200 [place] [address] 03/05/2024 11:15 AM EDT Hem/Onc Treatment Hematology/Oncology [facility] 200 [facility], [place] [phone] Kenyatta, Chair 1 Hem Onc Scenery 200 [place] [address] 03/11/2024 7:05 AM EDT Laboratory Lab Mobile Phlebotomy [facility] [address] [place], [place] [address] Mvmg, Gml Mobile Home Draw [address] [place] [address] 03/18/2024 7:05 AM EST Laboratory Lab Mobile Phlebotomy [facility] [address] [facility] [place] [address] Mvmg, Gml Mobile Home Draw [address] [place] [address] 03/25/2024 7:05 AM EST Laboratory Lab Mobile Phlebotomy [facility] [address] [place], [place] [address] Mvmg, Gml Mobile Home Draw [address] [facility] [place] [address] 04/01/2024 7:00 AM EST Laboratory Lab Mobile Phlebotomy [facility] [address] [facility] [place] [address] Mvmg, Gml Mobile Home Draw [address] [place] [address] 04/08/2024 7:05 AM EST Laboratory Lab Mobile Phlebotomy [facility] [address] [facility] [place] [address] Mvmg, Gml Mobile Home Draw [address] [place] [address] 04/15/2024 7:05 AM EST Laboratory Lab Mobile Phlebotomy [facility] [address] [facility] [place] [address] Mvmg, Gml Mobile Home Draw [address] [place] [address] 04/22/2024 7:05 AM EST Laboratory Lab Mobile Phlebotomy [facility] [address] [facility] [place] [address] Mvmg, Gml Mobile Home Draw [address] [place] [address] 04/29/2024 7:05 AM EST Laboratory Lab Mobile Phlebotomy [facility] [address] [facility] [place] [address] Mvmg, Gml Mobile Home Draw [address] [place] [address] 05/05/2024 7:05 AM EST Laboratory Lab Mobile Phlebotomy [facility] [address] [facility] [place] [address] Mvmg, Gml Mobile Home Draw [address] [place] [address] 09/02/2024 8:20 AM EDT Office Visit Pulmonary Medicine, [facility] [address] [place] [address] Ish Caba MD [address] [place] [place] [phone] 05/03/2025 7:40 AM EST Office Visit Dermatology [address] [place] [address] Albina Romo PA-C [address] [place] [address] [place] [address] Health Maintenance Due Date Last Done Comments [...] this encounter Medical Devices Implanted Type Area Mold Maker Helper Device Identifier Shelf Expiration Date Model / Serial / Lot Mesh Plug Xlarge [id number] - [id number] Implanted:Qty: 1 on 12/09/2020 by John Zaragoza MD at OR [facility] Left: Demond RIVAS BARD : LUCINDA 05/09/2023 [id number] / / [id number] documented as of this encounter Visit Diagnoses [...] Power of Attor coco? No Care Teams Spring Assembler Supervisor Relationship Specialty Start Date End Date Michael Collins MD [address] [place] [address] [place] [address] PCP - General Internal Medicine 03/01/14 documented as of this encounter
--- OUTSIDE RECORDS SUMMARY | 2024-03-26 16:25 | External Medical Summary ---
Author Name Unknown Address Unknown Organization K01:LABORATORY [facility] [place] - [address] [facility] [address] Laboratory Report Ordering Provider Test Date Status KALPESH SERRANO 01/08/2024 09:00:00 Final Observation Date Value Abnormality Reference (Units ) Status WBC, Total 01/08/2024 09:00:00 4.17 4.00-10.80 (K/uL) Final RBC 01/08/2024 09:00:00 4.09 4.50-5.25 (M/uL) Final Hemoglobin 01/08/2024 09:00:00 14.4 14.0-16.8 (g/dL) Final HCT 01/08/2024 09:00:00 43.4 40.0-48.4 (%) Final MCV 01/08/2024 09:00:00 106.1 82.0-99.5 (fL) Final MCH 01/08/2024 09:00:00 35.2 27.0-34.0 (pg) Final MCHC 01/08/2024 09:00:00 33.2 32.0-36.0 (g/dL) Final RDW 01/08/2024 09:00:00 14.7 11.5-15.5 (%) Final Platelets 01/08/2024 09:00:00 97 Below low normal 140-400 (K/uL) Final MPV 01/08/2024 09:00:00 10.6 6.6-11.1 (fL) Final Nucleated erythrocytes/100 leukocytes [Ratio] in Blood by Automated count 01/08/2024 09:00:00 0 <=0 (/100 WBCs) Final Performing Location LABORATORY [facility] [place] - [address] [place] [address]
--- OUTSIDE RECORDS SUMMARY | 2024-03-26 16:25 | External Medical Summary ---
Author Name Unknown Address Unknown Organization K01:LABORATORY [facility] [place] - [address] [facility] [place] [address] Laboratory Report Ordering Provider Test Date Status KALPESH SERRANO 01/01/2024 08:00:00 Final Observation Date Value Abnormality Reference (Units ) Status SYNC LEUKOCYTES IN BLOOD BY AUTOMATED COUNT 01/01/2024 08:00:00 4.64 4.00-10.80 (K/uL) Final Segs 01/01/2024 08:00:00 69.3 40.0-75.0 (%) Final Lymphs % 01/01/2024 08:00:00 14.9 Below low normal 18.0-42.0 (%) Final Monos 01/01/2024 08:00:00 13.1 Above high normal 1.0-11.0 (%) Final Eosinophils 01/01/2024 08:00:00 1.9 0.0-6.0 (%) Final Basos 01/01/2024 08:00:00 0.4 0.0-2.0 (%) Final Immature Granulocyte, Percent 01/01/2024 08:00:00 0.4 0.0-2.0 (%) Final Absolute Segs 01/01/2024 08:00:00 3.21 1.80-7.70 (K/uL) Final Lymphs, absolute 01/01/2024 08:00:00 0.69 Below low normal 1.00-4.80 (K/ul) Final Monos, Abs 01/01/2024 08:00:00 0.61 0.00-1.10 (K/uL) Final Eos, Abs 01/01/2024 08:00:00 0.09 0.00-0.70 (K/uL) Final Basos, Abs 01/01/2024 08:00:00 0.02 0.00-0.20 (K/uL) Final Immature Granulocytes, Number 01/01/2024 08:00:00 0.02 0.00-0.20 (K/uL) Final Performing Location LABORATORY [facility] [place] - [facility] [address] [facility] [address]
--- OUTSIDE RECORDS SUMMARY | 2024-03-26 16:25 | External Medical Summary | Summary of Care ---
Author Name Unknown Organization [facility] Address [address] [facility] [place] [address] Phone [phone] Care Team Providers Care Kit Assembler Name Role Phone Michale Collins MD Primary Care Provi zehra Reason for Visit * Reason Comments Chemotherapy Cytoxan. * Episode Based Medications (Routine) - Authorized Specialty Diagnoses / Procedures Referred By Contac t Referred To Contact Diagnoses Multiple myeloma not having achieved remission (HCC) Procedures NM DARATUMUMAB, HYALURONIDASE NM INJ, CYCLOPHOSPHAMIDE, NOS Morgan Vásquez MD [address] [place] [address] Anc Hem/Onc Amena You DEPT CLOSED - 03/26/23 200 [facility] [place] [address] Referral ID Status Reason Start Date Expiration Date V isits Requested Visits Authorized [id number] Authorized 05/28/2022 05/12/2099 99 99 Encounter Details Date Type Department Care Team (Latest Contact Info) Description 12/26/2023 9:00 AM EDT Hem/Onc Treatment Hematology/Oncolog y Treatment, [place] [address] [place] [address] Kenyatta, Chair 10 Hem Onc Scenery [address] [place] [address] Multiple myeloma not having achieved remission (HCC)*; Encounter for antineoplastic chemotherapy Allergies No known active allergiesdocumented as of this encounter (statuses as of 12/26/2023) Medications Medication Sig Dispensed Refills Start Date End Date Status THEOPHYLLINE ER 450 MG PO ZD42Isetnbripvm:2 tablet at bedtime Take by mouth. Indications: [...] at bedtime. PATIENT INFORMATION: Kris Galvin [address] [place] [address] [employer]: [employer] ORDER: Please start nocturnal oxygen via nasal [...] (electronically signed) Ish Caba MD Pulmonary Medicine, [address] [place] [address] [place] [facility] Medical License Number: [id number] 1 Each 09/21/2022 Active metFORMIN HCl ER [...] Darzalex injection. 35 Tablet 2 10/08/2023 Active Ondansetron HCl 8 MG Oral Tablet (Zofran)Indication s:Multiple myeloma (HCC) Take 1 Tablet by mouth every 8 hours as needed for Nausea. 90 Tablet 1 10/09/2023 Active Prochlorperazine Maleate 10 MG Oral Tablet [...] tab pm 60 Capsule 2 10/21/2023 Active Hospital, Clinic, or Other Facility Administered [...] as of this encounter (statuses as of 12/26/2023) Active Problems Problem Noted Date Diagnosed Date [...] as of this encounter (statuses as of 12/26/2023) Resolved Problems Problem Noted Date Diagnosed Date Resolved Date Asthma in remission 08/28/2022 08/29/19 Asthma, mild persistent 08/28/202208/11 Asthma, severe persistent 08/28/2022 Stem cell transplant candidate 08/17/2019 09/02/2019 documented as of this encounter (statuses as of 12/26/2023) Immunizations Name Administration Dates Next Due COVID-19 mRNA, LNP-s, No Pre serve, 2-Dose Series (sellpoints) 01/17/2021,08/05/2020,07/08/2020 COVID-19, LNP-s, No Preserve , Bryant-sucrose, Ages 12+ (sellpoints) 09/26/2021 DTaP Dipth/Tet/Acell Pertussis (Infanrix), Peds 02/23/2021,11/11/2020,09/09/2020 [...] lent, No Preserve, Mdck 02/15/2019 Seasonal Influenza, Split, I IV3, With Preserve, Inj 03/01/2014 Zoster Vaccine Recombinant (Shingrix) 05/03/2020 ,03/04/2020 [...] Care Team (Late st Contact Info) Description 01/01/2024 7:05 AM EDT Laboratory Lab [facility] Ph[facility] [address] [place] [address] Mvmg, Gml Mobile Home Draw [address] [facility] [place] [address] 01/02/2024 8:30 AM EDT Hem/Onc Treatment Hematology/Oncology Treatment, [place] 200 [place] [phone] Kenyatta, Chair 7 Hem Onc Scenery 200 [place] [address] 01/08/2024 7:00 AM EDT Laboratory Lab [facility] Phlebot[facility] [address] [place] [address] Mvmg, Gml Mobile Home Draw [address] [facility] [place] [address] 01/09/2024 8:30 AM EDT Hem/Onc Treatment Hematology/Oncology Treatment, [place] [address] [place] [phone] Kenyatta, Chair 9 Hem Onc Scenery 200 [place] [address] 01/15/2024 7:05 AM EDT Laboratory Lab [facility] Phlebotomy [facility] [address] [place] [address] Mvmg, Gml Mobile Home Draw [address] [facility] [place] [address] 01/22/2024 7:05 AM EDT Laboratory Lab Mobile Phlebotomy [facility] [address] [place] [address] Mvmg, Gml Mobile Home Draw [address] [place] [address] 01/29/2024 7:05 AM EDT Laboratory Lab Mobile Phlebotomy [facility] [address] [place] [address] Mvmg, Gml Mobile Home Draw [address] [place] [address] 02/05/2024 7:00 AM EDT Laboratory Lab Mobile Phlebotomy [facility] [address] [place], [place] [address] Mvmg, Gml Mobile Home Draw [address] [facility] [place], [place] [address] 02/05/2024 8:40 AM EDT Office Visit Neurology [facility] [place] 200 [facility] [place], [place] [address] Octavia Goins PA-C 200 [facility] [place], [place] [address] 02/07/2024 8:00 AM EDT Office Visit Rheumatology [address] [place] [phone] Darnell Higgins MD [address] [facility] [address] [place], [place] [address] 02/12/2024 7:05 AM EDT Laboratory Lab Mobile Phlebotomy [facility] [address] [place], [place] [address] Mvmg, Gml Mobile Home Draw [address] [place] [place] [address] 02/19/2024 7:05 AM EDT Laboratory Lab Mobile Phlebotomy [facility] [address] [place], [place] [address] Mvmg, Gml Mobile Home Draw [address] [facility] [place] [address] 02/26/2024 7:05 AM EDT Laboratory Lab Mobile Phlebotomy [facility] [address] [place] [address] Mvmg, Gml Mobile Home Draw [address] [facility] [place] [address] 03/04/2024 7:00 AM EDT Laboratory Lab Mobile Phlebotomy [facility] [address] [place], [place] [address] Mvmg, Gml Mobile Home Draw [address] [facility] [place] [address] 03/05/2024 10:45 AM EDT Office Visit Hematology/Oncology [facility] 200 [place] [phone] Morgan Vásquez MD 200 [place] [address] 03/11/2024 7:05 AM EDT Laboratory Lab [facility] Phlebotomy [facility] [address] [facility] [place] [address] Mvmg, Gml Mobile Home Draw [address] [place] [address] 03/18/2024 7:05 AM EST Laboratory Lab Mobile Phlebotomy [facility] [address] [place] [address] Mvmg, Gml Mobile Home Draw [address] [facility] [place] [address] 03/25/2024 7:05 AM EST Laboratory Lab [facility] Phlebotomy [facility] [address] [place] [address] Mvmg, Gml Mobile Home Draw [address] [facility] [place] [address] 04/01/2024 7:00 AM EST Laboratory Lab [facility] Phlebot[facility] [address] [facility] [place] [address] Mvmg, Gml Mobile Home Draw [address] [facility] [place] [address] 04/08/2024 7:05 AM EST Laboratory Lab Mobile Phlebotomy [facility] [address] [place] [address] Mvmg, Gml Mobile Home Draw [address] [facility] [place] [address] 04/15/2024 7:05 AM EST Laboratory Lab [facility] Phlebotomy [facility] [address] [facility] [place] [address] Mvmg, Gml Mobile Home Draw [address] [facility] [place] [address] 04/22/2024 7:05 AM EST Laboratory Lab Mobile Phlebotomy [facility] [address] [place] [address] Mvmg, Gml Mobile Home Draw [address] [place] [address] 04/29/2024 7:05 AM EST Laboratory Lab Mobile Phlebotomy [facility] [address] [facility] [place] [address] Mvmg, Gml Mobile Home Draw [address] [facility] [place] [address] 05/05/2024 7:05 AM EST Laboratory Lab Mobile Phlebotomy [facility] [address] [place] [address] Mvmg, Gml Mobile Home Draw [address] [facility] [place] [address] 09/02/2024 8:20 AM EDT Office Visit Pulmonary Medicine, [facility] [address] [facility] [place] [address] Ish Caba MD [address] [facility] [place] [address] 05/03/2025 7:40 AM EST Office Visit Dermatology [address] [place] [address] Albina Romo PA-C [address] [place] [address] [place] [address] Health Maintenance Due Date Last Done Comments Depression Screening 1976 Albumin/Creatinine Ratio 1982 Cologuard 2009 Fecal Occult Blood Test 2009 Sigmoidoscopy 2009 COVID-19 Vaccine ( season) 2023 01/28/2022, 09/26/2021, 01/17/2021, Additional history exists Colonoscopy 03/03/2023 03/03/2018, 03/03/2018 Colorectal Cancer Screening 03/03/2023 Lipid Panel 11/18/2024 11/19/2019, 07/11, 07/29/2009 GFR 12/24/2024 12/25/2023, 08/0 11/2023, 12/11/2023, Additional history exists Diabetes Screening 12/24/2026 12/25/2023, 0 12/18/2023, 12/11/2023, Additional history exists DTaP,Tdap,and Td Vaccines (4 - Tdap) 02/23/2031 02/23/2021, 11/11/2020, [...] encounter Medical Devices Implanted Type Area Timber Management Technician Device Identifier Shelf Expiration Date Model / Serial / Lot Mesh Plug Xlarge [id number] - [id number] Implanted:Qty: 1 on 12/09/2020 by John Zaragoza MD at OR [facility] Left: Groin CR BARD : DAVOL 05/09/2023 [id number] / / [id number] documented as of this encounter Visit Diagnoses [...] PRN Other, Hypersensitivity Reaction, Starting on Lilibeth 12/26/23 at 0904, Until Sat12/27/23 at 0903, For 24 hours EPINEPHrine 1 MG/ML inj 0.3 mg 0.3 mg, Intramuscular, ONCE PRN Other, Hypersensitivity Reaction or Anaphylaxis, Starting on Sat12/26/23 at 0904, Until Sat12/27/23 at 0903, For 24 hours hEParin 100 UNIT/ML Lock Flush inj 500 Units 500 Units (5 mL), IV Lock, PRN Other, IV Flush, Starting on Sat12/26/23 at 0904, Until Sat12/27/23 at 0903, For 24 hours, Do not flush if lock, PICC, or central line not in place; IV infusing or unable to flush. Hydrocortisone Sod Suc (PF) (Solu-Cortef) inj 100 mg 100 mg, IV Push, ONCE PRN Other, Hypersensitivity Reaction, Starting on Sat12/26/23 at 0904, Until Sat12/27/23 at 0903, For 24 hours meperidine (Demerol) 25 MG/ML inj 25 mg 25 mg, IV Push, ONCE PRN Shivering, Starting on Sat12/26/23 at 0904, Until Sat12/27/23 at 0903, For 24 hours NSS infusion FOR HYDRATION Intravenous, at 50 mL/hr Administer over 10 Hours, CONTINUOUS, Starting on Sat12/26/23 at 0945, Until Discontinued Start Infusion 12/26/2023 9:14 AM EDT 500 mL 50 mL/hr sodium chloride 0.9 % flush central line 10 mL 10 mL, IV Push, PRN Other, IV Flush, Starting on Sat12/26/23 at 0904, Until Sat12/27/23 at 0903, For 24 hours, Do not flush if [...] 9:15 AM EDT 1,000 mL 500 mL/hr ondansetron [...] Power of Attor coco? No Care Teams Kit Assembler Relationship Specialty Start Date End Date Michael Collins MD [address] [place] [address] [place] [address] PCP - General Internal Medicine 03/01/14 documented as of this encounter
--- OUTSIDE RECORDS SUMMARY | 2024-03-26 16:25 | External Medical Summary | Summary of Care ---
Author Name Unknown Organization [facility] Address [address] [facility] [place] [address] Phone [phone] Care Team Providers Care Air Conditioning Technician Name Role Phone Michael Collins MD Primary Care Provi zehra Reason for Visit * Reason Comments Chemotherapy Cytoxan * Episode Based Medications (Routine) - Authorized Specialty Diagnoses / Procedures Referred By Contac t Referred To Contact Diagnoses Multiple myeloma not having achieved remission (HCC) Procedures ME DARATUMUMAB, HYALURONIDASE ME INJ, CYCLOPHOSPHAMIDE, NOS Morgan Vásquez MD [address] [place] [address] Anc Hem/Onc Amena You DEPT CLOSED - 03/26/23 200 [facility] [place] [address] Referral ID Status Reason Start Date Expiration Date V isits Requested Visits Authorized [id number] Authorized 05/28/2022 05/12/2099 99 99 Encounter Details Date Type Department Care Team (Latest Contact Info) Description 01/02/2024 8:30 AM EDT Hem/Onc Treatment Hematology/Oncolog y Treatment, [place] [address] [place] [phone] Kenyatta, Chair 7 Hem Onc Scen[address] [place] [address] Multiple myeloma not having achieved remission (HCC)*; Encounter for antineoplastic chemotherapy Allergies No known active allergiesdocumented as of this encounter (statuses as of 01/02/2024) Medications Medication Sig Dispensed Refills Start Date End Date Status THEOPHYLLINE ER 450 MG PO DP94Eojisrqixye:2 tablet at bedtime Take by mouth. Indications: [...] CAPS Take by mouth. Active Multiple Vitamins-Minerals ([facility]) CHEW Take by mouth. [...] at bedtime. PATIENT INFORMATION: Kris Galvin [address] [place] [address] [employer]: [employer] ORDER: Please start nocturnal oxygen via nasal [...] signed) Ish Caba MD Pulmonary Medicine, [address] [place] [address] [place] [facility] Medical License Number: [id number] 1 Each 09/21/2022 Active metFORMIN HCl ER [...] as of this encounter (statuses as of 01/02/2024) Active Problems Problem Noted Date Diagnosed Date [...] as of this encounter (statuses as of 01/02/2024) Resolved Problems Problem Noted Date Diagnosed Date Resolved Date Asthma in remission 08/28/2022 08/29/19 Asthma, mild persistent 08/28/202208/11 Asthma, severe persistent 08/28/2022 Stem cell transplant candidate 08/17/2019 09/02/2019 documented as of this encounter (statuses as of 01/02/2024) Immunizations Name Administration Dates Next Due COVID-19 mRNA, LNP-s, No Pre serve, 2-Dose Series ([employer]) 01/17/2021,08/05/2020,07/08/2020 COVID-19, LNP-s, No Preserve , Bryant-sucrose, Ages 12+ ([employer]) 09/26/2021 DTaP Dipth/Tet/Acell Pertussis (Infanrix), Peds 02/23/2021,11/11/2020,09/09/2020 [...] Care Team (Late st Contact Info) Description 01/08/2024 7:00 AM EDT Laboratory Lab Mobile Phlebotomy [facility] [address] [place] [address] Mvmg, Gml Mobile Home Draw [address] [place] [address] 01/09/2024 8:30 AM EDT Hem/Onc Treatment Hematology/Oncology Treatment, [place] [address] [place] [phone] Kenyatta, Chair [address] [place] [address] 01/15/2024 7:05 AM EDT Laboratory Lab Mobile Phlebotomy [facility] [address] [place] [address] Mvmg, Gml Mobile Home Draw [address] [place], [place] [address] 01/22/2024 7:05 AM EDT Laboratory Lab Mobile Phlebotomy [facility] [address] [place] [address] [address] Mvmg, Gml Mobile Home Draw [address] [place], [place] [address] 01/29/2024 7:05 AM EDT Laboratory Lab Mobile Phlebotomy [facility] [address] [place], [place] [address] Mvmg, Gml Mobile Home Draw [address] [place], [place] [address] 02/05/2024 7:00 AM EDT Laboratory Lab Mobile Phlebotomy [facility] [address] [place] [address] Mvmg, Gml Mobile Home Draw [address] [place], [place] [address] 02/05/2024 8:40 AM EDT Office Visit Neurology [facility] [place] 200 [facility] [place] [address] Octavia Goins PA-C [address] [place], [place] [address] 02/07/2024 8:00 AM EDT Office Visit Rheumatology [address] [place] [phone] Darnell Higgins MD [address] [place], [place] [address] 02/12/2024 7:05 AM EDT Laboratory Lab Mobile Phlebotomy [facility] [address] [employer], [place] [address] Mvmg, Gml Mobile Home Draw [address] [place], [place] [address] 02/19/2024 7:05 AM EDT Laboratory Lab Mobile Phlebotomy [facility] [address] [place], [place] [address] Mvmg, Gml Mobile Home Draw [address] [place], [place] [address] 02/26/2024 7:05 AM EDT Laboratory Lab Mobile Phlebotomy [facility] [address] [employer], [place] [address] Mvmg, Gml Mobile Home Draw [address] [place], [place] [address] 03/04/2024 7:00 AM EDT Laboratory Lab Mobile Phlebotomy [facility] [address] [place], [place] [address] Mvmg, Gml Mobile Home Draw 2520 Gen [facility] [place] [address] 03/05/2024 10:45 AM EDT Office Visit Hematology/Oncology [facility] [place] [address] [place] [phone] Morgan Vásquez MD [address] [place] [address] 03/11/2024 7:05 AM EDT Laboratory Lab Mobile Phlebotomy [facility] [address] [place] [address] Mvmg, Gml Mobile Home Draw 2520 [place] [address] 03/18/2024 7:05 AM EST Laboratory Lab Mobile Phlebotomy [facility] [address] [place] [address] Mvmg, Gml Mobile Home Draw [address] [place] [address] 03/25/2024 7:05 AM EST Laboratory Lab Mobile Phlebotomy [facility] [address] [email or web address] [email or web address] [address] Mvmg, Gml Mobile Home Draw [address] [place] [address] 04/01/2024 7:00 AM EST Laboratory Lab Mobile Phlebotomy [facility] [address] [place] [address] Mvmg, Gml Mobile Home Draw 25[address] [place] [address] 04/08/2024 7:05 AM EST Laboratory Lab Mobile Phlebotomy [facility] [address] [place] [address] Mvmg, Gml Mobile Home Draw 2520 [place] [address] 04/15/2024 7:05 AM EST Laboratory Lab Mobile Phlebotomy [facility] [address] [place] [address] Mvmg, Gml Mobile Home Draw [address] [place] [email or web address] [address] 04/22/2024 7:05 AM EST Laboratory Lab Mobile Phlebotomy [facility] [address] [place] [address] Mvmg, Gml Mobile Home Draw [address] [email or web address] [address] 04/29/2024 7:05 AM EST Laboratory Lab Mobile Phlebotomy [facility] [address] [place] [address] Mvmg, Gml Mobile Home Draw [address] [employer] [place] [address] 05/05/2024 7:05 AM EST Laboratory Lab Mobile Phlebotomy [facility] [address] [facility] [place] [address] Mvmg, Gml Mobile Home Draw [address] [place] [address] 09/02/2024 8:20 AM EDT Office Visit Pulmonary Medicine, [facility] 132 [facility] [place] [address] Ish Caba MD [address] [facility] [place] [address] 05/03/2025 7:40 AM EST Office Visit Dermatology [address] [place] [address] Albina Romo PA-C [address] [place] [address] [place] [address] Health Maintenance Due Date Last Done Comments Depression Screening 1976 Albumin/Creatinine Ratio 1982 Cologuard 2009 Fecal Occult Blood Test 2009 Sigmoidoscopy 2009 COVID-19 Vaccine ( season) 2023 01/28/2022, 09/26/2021, 01/17/2021, Additional history exists Colonoscopy 03/03/2023 03/03/2018, 03/03/2018 Colorectal Cancer Screening 03/03/2023 Lipid Panel 11/18/2024 11/19/2019, 07/11, 07/29/2009 GFR 12/31/2024 01/01/2024, 12/11, 12/18/2023, Additional history exists Diabetes Screening 12/31/2026 01/01/2024, 0 12/25/2023, 12/18/2023, Additional history exists DTaP,Tdap,and Td Vaccines (4 [...] this encounter Medical Devices Implanted Type Area Valving Machine Operator Device Identifier Shelf Expiration Date Model / Serial / Lot Mesh Plug Xlarge [id number] - [id number] Implanted:Qty: 1 on 12/09/2020 by John Zaragoza MD at OR [facility] Left: Groin CR BARD : DAVOL 05/09/2023 [id number] / / [id number] documented as of this encounter Visit Diagnoses [...] ONCE PRN Other, Hypersensitivity Reaction, Starting on Sat01/02/24 at 0852, Until Sat01/03/24 at 0851, For 24 hours EPINEPHrine 1 MG/ML inj 0.3 mg 0.3 mg, Intramuscular, ONCE PRN Other, Hypersensitivity Reaction or Anaphylaxis, Starting on Sat01/02/24 at 0852, Until Sat01/03/24 at 0851, For 24 hours hEParin 100 UNIT/ML Lock Flush inj 500 Units 500 Units (5 mL), IV Lock, PRN Other, IV Flush, Starting on Sat01/02/24 at 0852, Until Sat01/03/24 at 0851, For 24 hours, Do not flush if lock, PICC, or central line not in place; IV infusing or unable to flush. Hydrocortisone Sod Suc (PF) (Solu-Cortef) inj 100 mg 100 mg, IV Push, ONCE PRN Other, Hypersensitivity Reaction, Starting on Sat01/02/24 at 0852, Until Sat01/03/24 at 0851, For 24 hours meperidine (Demerol) 25 MG/ML inj 25 mg 25 mg, IV Push, ONCE PRN Shivering, Starting on Sat01/02/24 at 0852, Until Sat01/03/24 at 0851, For 24 hours NSS infusion FOR HYDRATION Intravenous, at 50 mL/hr Administer over 10 Hours, CONTINUOUS, Starting on Sat01/02/24 at 0930, Until Discontinued Start Infusion 01/02/2024 8:57 AM EDT 500 mL 50 mL/hr sodium chloride 0.9 % flush central line 10 mL 10 mL, IV Push, PRN Other, IV Flush, Starting on Sat01/02/24 at 0852, Until Sat01/03/24 at 0851, For 24 hours, Do not flush if [...] if not tolerated., ONCE, 1 dose, On Sat01/02/24 at 0930 Start Infusion 01/02/2024 9:59 AM EDT 740 mg 517.4 mL/hr dexAMETHasone (Decadron) tab 40 mg 40 mg, Oral, ONCE, On Sat01/02/24 at 0915, For 1 dose Given 01/02/2024 9:01 AM EDT 40 mg NSS infusion FOR HYDRATION Intravenous, at 500 mL/hr Administer over 2 Hours, ONCE, 1 dose, On Sat01/02/24 at 0930 Start Infusion 01/02/2024 8:56 AM EDT 1,000 mL 500 mL/hr ondansetron [...] Power of Attor coco? No Care Teams Air Conditioning Technician Relationship Specialty Start Date End Date Michael Collins MD [address] [place] [address] [place] [address] PCP - General Internal Medicine 03/01/14 documented as of this encounter
--- OUTSIDE RECORDS SUMMARY | 2024-03-26 16:25 | External Medical Summary ---
Author Name Unknown Address Unknown Organization K01:LABORATORY [facility] [place] - [address] [facility] [address] Laboratory Report Ordering Provider Test Date Status KALPESH SERRANO 01/01/2024 08:00:00 Final Observation Date Value Abnormality Reference (Units ) Status WBC, Total 01/01/2024 08:00:00 4.64 4.00-10.80 (K/uL) Final RBC 01/01/2024 08:00:00 4.07 4.50-5.25 (M/uL) Final Hemoglobin 01/01/2024 08:00:00 14.5 14.0-16.8 (g/dL) Final HCT 01/01/2024 08:00:00 43.5 40.0-48.4 (%) Final MCV 01/01/2024 08:00:00 106.9 82.0-99.5 (fL) Final MCH 01/01/2024 08:00:00 35.6 27.0-34.0 (pg) Final MCHC 01/01/2024 08:00:00 33.3 32.0-36.0 (g/dL) Final RDW 01/01/2024 08:00:00 14.7 11.5-15.5 (%) Final Platelets 01/01/2024 08:00:00 117 Below low normal 140-400 (K/uL) Final MPV 01/01/2024 08:00:00 10.7 6.6-11.1 (fL) Final Nucleated erythrocytes/100 leukocytes [Ratio] in Blood by Automated count 01/01/2024 08:00:00 0 <=0 (/100 WBCs) Final Performing Location LABORATORY [facility] [place] - [address] [place] [address]
--- OUTSIDE RECORDS SUMMARY | 2024-03-26 16:25 | External Medical Summary ---
Author Name Unknown Address Unknown Organization K01:LABORATORY [facility] [place] - [address] [place] [address] Laboratory Report Ordering Provider Test Date Status KALPESH SERRANO 01/08/2024 09:00:00 Final Observation Date Value Abnormality Reference (Units ) Status IgG 01/08/2024 09:00:00 603 Below low normal 700 -1600 (mg/dL) Final IgA 01/08/2024 09:00:00 13 Below low normal 70- 400 (mg/dL) Final IgM 01/08/2024 09:00:00 9 Below low normal 40- 230 (mg/dL) Final Performing Location LABORATORY C - [address] [place] [address]
--- OUTSIDE RECORDS SUMMARY | 2024-03-26 16:25 | External Medical Summary | Summary of Care ---
Author Name Unknown Organization [facility] Address [address] [facility] [place] [address] Phone [phone] Care Team Providers Care Monument Installer Name Role Phone Michael Collins MD Primary Care Provi zehra Reason for Visit * Reason Comments Chemotherapy Cytoxan/Darzalex Fas pro * Episode Based Medications (Routine) - Authorized Specialty Diagnoses / Procedures Referred By Contac t Referred To Contact Diagnoses Multiple myeloma not having achieved remission (HCC) Procedures MA DARATUMUMAB, HYALURONIDASE MA INJ, CYCLOPHOSPHAMIDE, NOS Morgan Vásquez MD [address] [place] [address] Anc Hem/Onc Amena You DEPT CLOSED - 03/26/23 200 [facility] [place] [place] [address] Referral ID Status Reason Start Date Expiration Date V isits Requested Visits Authorized [id number] Authorized 05/28/2022 05/12/2099 99 99 Encounter Details Date Type Department Care Team (Latest Contact Info) Description 01/09/2024 8:30 AM EDT Hem/Onc Treatment Hematology/Oncolog y Treatment, [place] [address] [place] [address] Kenyatta, Chair 9 Hem Onc Scenery [address] Amena Osman [place] [address] Multiple myeloma not having achieved remission (HCC)*; Encounter for antineoplastic chemotherapy Allergies No known active allergiesdocumented as of this encounter (statuses as of 01/09/2024) Medications Medication Sig Dispensed Refills Start Date End Date Status THEOPHYLLINE ER 450 MG PO [id number] tablet at bedtime Take by mouth. Indications: [...] CAPS Take by mouth. Active Multiple Vitamins-Minerals ([facility] IMMUNITY SUPPORT) CHEW Take by mouth. Active [...] nostril at bedtime. PATIENT INFORMATION: Kris Galvin [address] [place] [address] [employer] ORDER: Please start nocturnal oxygen via nasal [...] signed) Ish Caba MD Pulmonary Medicine, [address] [place] [address] [place] [facility] Medical License Number: [id number] 1 Each 09/21/2022 Active metFORMIN HCl ER [...] as of this encounter (statuses as of 01/09/2024) Active Problems Problem Noted Date Diagnosed Date [...] as of this encounter (statuses as of 01/09/2024) Resolved Problems Problem Noted Date Diagnosed Date Resolved Date Asthma in remission 08/28/2022 08/29/19 Asthma, mild persistent 08/28/202208/11 Asthma, severe persistent 08/28/2022 Stem cell transplant candidate 08/17/2019 09/02/2019 documented as of this encounter (statuses as of 01/09/2024) Immunizations Name Administration Dates Next Due COVID-19 mRNA, LNP-s, No Pre serve, 2-Dose Series ([employer]) 01/17/2021,08/05/2020,07/08/2020 COVID-19, LNP-s, No Preserve , Bryant-sucrose, Ages 12+ ([employer]) 09/26/2021 DTaP Dipth/Tet/Acell Pertussis ([employer]), Peds 02/23/2021,11/11/2020,09/09/2020 [...] 8:49 PM EDT Sexual Orientation Straight 12/01/2021 8 :49 PM EDT Job Start Date Occupation Industry [...] Nursing Notes * Abril Ayers RN - 01/09/2024 12:49 PM EDT Patient [...] Care Team (Late st Contact Info) Description 01/15/2024 7:05 AM EDT Laboratory Lab Mobile Phlebotomy [facility] [address] [place] [address] [facility], [facility] [address] [place], [place] [address] 01/16/2024 8:30 AM EDT Hem/Onc Treatment Hematology/Oncology Treatment[address], [place] [phone] Kenyatta, Chair 7 Hem Onc Scenery [address] [place] [address], [place] [address] 01/22/2024 7:05 AM EDT Laboratory Lab Mobile Phlebotomy [facility] [address] [place], [place] [address] [facility], [facility] [address] [place], [place] [address] 01/23/2024 8:30 AM EDT Hem/Onc Treatment Hematology/Oncology Treatment, [place] 200 [place] [phone] Kenyatta, Chair 9 Hem Onc Scenery 200 [facility] [place] [address] 01/29/2024 7:05 AM EDT Laboratory Lab Mobile Phlebotomy [facility] [address] [place], [place] [address] [facility], [facility] [address] [place], [place] [address] 01/30/2024 8:30 AM EDT Hem/Onc Treatment Hematology/Oncology Treatment, [place] 200 [facility], [place] [phone] Kenyatta, Chair 5 Hem Onc Scenery [address] [facility] [address] [place], [place] [address] 02/05/2024 8:40 AM EDT Office Visit Neurology [facility] [place] [address] [facility] [place] [address] Octavia Goins PA-C [address] [facility] [place] [address] 02/06/2024 8:30 AM EDT Hem/Onc Treatment Hematology/Oncology Treatment, [place] 200 [facility], [place] [phone] Kenyatta, Chair 4 Hem Onc Scenery [address] [facility] [place] [address] 02/07/2024 8:00 AM EDT Office Visit Rheumatology [address] [place] [phone] Darnell Higgins MD [address] [place] [address] 02/12/2024 7:05 AM EDT Laboratory Lab Mobile Phlebotomy [facility] [address] [place] [address] [facility], [facility] [address] [place] [address] 02/13/2024 8:30 AM EDT Hem/Onc Treatment Hematology/Oncology Treatment, [place] 200 [facility] [place], [place] [phone] Kenyatta, Chair 4 Hem Onc Scenery [address] [facility] [place] [address] 02/19/2024 7:05 AM EDT Laboratory Lab Mobile Phlebotomy [facility] [address] [place] [address] [facility], [facility] [address] [place] [address] 02/20/2024 8:30 AM EDT Hem/Onc Treatment Hematology/Oncology Treatment, [place] 200 [place] [phone] Park, Chair 7 Hem Onc Scenery 200 [facility] [place] [address] 02/26/2024 7:05 AM EDT Laboratory Lab Mobile Phlebotomy [facility] [address] [place] [address] [facility], [facility] Draw [address] [place] [address] 02/27/2024 8:30 AM EDT [facility] 200 [place] [phone] Kenyatta, Chair 9 Hem Onc Scenery 200 [facility] [place] [address] 03/04/2024 7:00 AM EDT Laboratory Lab Mobile Phlebotomy [facility] [address] [place] [address] M[facility], [facility] Draw [address] [place] [address] 03/05/2024 8:45 AM EDT Office Visit Hematology/Oncology [facility] [address] [place] [phone] Morgan Vásquez MD [address] [place] [address] 03/05/2024 10:45 AM EDT Office Visit Hematology/Oncology [facility] [address] [place] [phone] Morgan Vásquez MD [address] [place] [address] 03/05/2024 11:15 AM EDT Hem/Onc Treatment Hematology/Oncology Treatment, [place] [address] [place] [phone] Kenyatta, Chair 1 Hem Onc Scenery [address] [place] [address] 03/11/2024 7:05 AM EDT Laboratory Lab Mobile Phlebotomy [facility] [address] [place] [address] [facility], [facility] [address] [place] [address] 03/18/2024 7:05 AM EST Laboratory Lab Mobile Phlebotomy [facility] [address] [place] [address] [facility], [facility] Draw [address] [place] [address] 03/25/2024 7:05 AM EST Laboratory Lab Mobile Phlebotomy [facility] [address] [facility] [place] [address] M[facility], [facility] Draw [address] [place] [address] 04/01/2024 7:00 AM EST Laboratory Lab Mobile Phlebotomy [facility] [address] [place] [address] M[facility], [facility] Draw [address] [place] [address] 04/08/2024 7:05 AM EST Laboratory Lab Mobile Phlebotomy [facility] [address] [place] [address] [facility], [facility] [address] [place] [address] 04/15/2024 7:05 AM EST Laboratory Lab Mobile Phlebotomy [facility] [address] [place] [address] [facility], [facility] [address] [place] [address] 04/22/2024 7:05 AM EST Laboratory Lab Mobile Phlebotomy [facility] [address] [place] [address] [facility], [facility] [address] [place] [address] 04/29/2024 7:05 AM EST Laboratory Lab Mobile Phlebotomy [facility] [address] [place] [address] [facility], [facility] [address] [place] [address] 05/05/2024 7:05 AM EST Laboratory Lab Mobile Phlebotomy [facility] [address] [place] [address] [facility], [facility] [address] [place] [address] 09/02/2024 8:20 AM EDT Office Visit Pulmonary Medicine, [facility] [address] [facility] [place] [address] Ish Caba MD [address] [facility] [place] [address] 05/03/2025 7:40 AM EST Office Visit Dermatology [address] [place] [address] Albina Romo PA-C [address] [place] [address] [place] [address] Health Maintenance Due Date Last Done Comments [...] this encounter Medical Devices Implanted Type Area Ham Stringer Device Identifier Shelf Expiration Date Model / Serial / Lot Mesh Plug Xlarge [id number] - [id number] Implanted:Qty: 1 on 12/09/2020 by John Zaragoza MD at OR [facility] Left: Groin CR BARD : DAVOL 05/09/2023 [id number] / / [id number] documented as of this encounter Visit Diagnoses [...] PRN Other, Hypersensitivity Reaction, Starting on Lilibeth 01/09/24 at 0830, Until Sat01/10/24 at 0829, For 24 hours EPINEPHrine 1 MG/ML inj 0.3 mg 0.3 mg, Intramuscular, ONCE PRN Other, Hypersensitivity Reaction or Anaphylaxis, Starting on Sat01/09/24 at 0830, Until Sat01/10/24 at 0829, For 24 hours hEParin 100 UNIT/ML Lock Flush inj 500 Units 500 Units (5 mL), IV Lock, PRN Other, IV Flush, Starting on Sat01/09/24 at 0830, Until Sat01/10/24 at 0829, For 24 hours, Do not flush if lock, PICC, or central line not in place; IV infusing or unable to flush. Hydrocortisone Sod Suc (PF) (Solu-Cortef) inj 100 mg 100 mg, IV Push, ONCE PRN Other, Hypersensitivity Reaction, Starting on Sat01/09/24 at 0830, Until Sat01/10/24 at 0829, For 24 hours meperidine (Demerol) 25 MG/ML inj 25 mg 25 mg, IV Push, ONCE PRN Shivering, Starting on Sat01/09/24 at 0830, Until Sat01/10/24 at 0829, For 24 hours NSS infusion FOR HYDRATION Intravenous, at 50 mL/hr Administer over 10 Hours, CONTINUOUS, Starting on Sat01/09/24 at 0915, Until Discontinued Start Infusion 01/09/2024 8:47 AM EDT 500 mL 50 mL/hr sodium chloride 0.9 % flush central line 10 mL 10 mL, IV Push, PRN Other, IV Flush, Starting on Sat01/09/24 at 0830, Until Sat01/10/24 at 0829, For 24 hours, Do not [...] 517.4 mL/hr Daratumumab-hyaluronida se-fihj (Darzalex Faspro) 1800 mg-07766 units/ 15 ml subcut inj 15 mL, [...] 8:50 AM EDT 1,000 mL 500 mL/hr ondansetron [...] patient have Health Care Power of Attor occo? No Care Teams Monument Installer Relationship Specialty Start Date End Date Michael Collins MD [address] [facility] [place] [address] PCP - General Internal Medicine 03/01/14 documented as of this encounter
--- OUTSIDE RECORDS SUMMARY | 2024-03-26 16:25 | External Medical Summary ---
Author Name Unknown Address Unknown Organization [id number]:[facility]AT[facility] [place] [address] [place] [address] Laboratory Report Ordering Provider Test Date Status KALPESH SERRANO 12/25/2023 09:15:00 Final Observation Date Value Abnormality Reference (Units ) Status SYNC LEUKOCYTES IN BLOOD BY AUTOMATED COUNT 12/25/2023 09:15:00 5.01 4.00-10.80 (K/uL) Final Segs 12/25/2023 09:15:00 71.6 40.0-75.0 (%) Final Lymphs % 12/25/2023 09:15:00 12.4 Below low normal 18.0-42.0 (%) Final Monos 12/25/2023 09:15:00 13.8 Above high normal 1.0-11.0 (%) Final Eosinophils 12/25/2023 09:15:00 2.0 0.0-6.0 (%) Final Basos 12/25/2023 09:15:00 0.2 0.0-2.0 (%) Final Absolute Segs 12/25/2023 09:15:00 3.59 1.80-7.70 (K/uL) Final Lymphs, absolute 12/25/2023 09:15:00 0.62 Below low normal 1.00-4.80 (K/ul) Final Monos, Abs 12/25/2023 09:15:00 0.69 0.00-1.10 (K/uL) Final Eos, Abs 12/25/2023 09:15:00 0.10 0.00-0.70 (K/uL) Final Basos, Abs 12/25/2023 09:15:00 0.01 0.00-0.20 (K/uL) Final [facility]forming Location [facility] [address] - [address] [place] [address]
--- OUTSIDE RECORDS SUMMARY | 2024-03-26 16:25 | External Medical Summary ---
Author Name Unknown Address Unknown Organization K0G:[facility] [place] [address] - [address] [place] [address] Laboratory Report Ordering Provider Test Date Status KALPESH SERRANO 12/25/2023 09:15:00 Final Observation Date Value Abnormality Reference (Units ) Status WBC, Total 12/25/2023 09:15:00 5.01 4.00-10.8 0 (K/uL) Final RBC 12/25/2023 09:15:00 4.12 4.50-5.25 (M/uL) Final Hemoglobin 12/25/2023 09:15:00 14.4 14.0-16.8 (g/dL) Final HCT 12/25/2023 09:15:00 42.2 40.0-48.4 (%) Final MCV 12/25/2023 09:15:00 102.4 82.0-99.5 (fL) Final MCH 12/25/2023 09:15:00 35.0 27.0-34.0 (pg) Final MCHC 12/25/2023 09:15:00 34.1 32.0-36.0 (g/dL) Final RDW 12/25/2023 09:15:00 13.9 11.5-15.5 (%) Final Platelets 12/25/2023 09:15:00 120 Below low normal 140 -400 (K/uL) Final MPV 12/25/2023 09:15:00 10.8 6.6-11.1 ( fL) Final [facility] [address] [place] [address]
--- OUTSIDE RECORDS SUMMARY | 2024-03-26 16:25 | External Medical Summary ---
Author Name Unknown Address Unknown Organization K01:[facility] - [address] [facility] [place] [address] Laboratory Report Ordering Provider Test Date Status KALPESH SERRANO 01/08/2024 09:00:00 Final Observation Date Value Abnormality Reference (Units ) Status SYNC LEUKOCYTES IN BLOOD BY AUTOMATED COUNT 01/08/2024 09:00:00 4.17 4.00-10.80 (K/uL) Final Segs 01/08/2024 09:00:00 67.8 40.0-75.0 (%) Final Lymphs % 01/08/2024 09:00:00 14.9 Below low normal 18.0-42.0 (%) Final Monos 01/08/2024 09:00:00 14.4 Above high normal 1.0-11.0 (%) Final Eosinophils 01/08/2024 09:00:00 1.9 0.0-6.0 (%) Final Basos 01/08/2024 09:00:00 0.5 0.0-2.0 (%) Final Immature Granulocyte, Percent 01/08/2024 09:00:00 0.5 0.0-2.0 (%) Final Absolute Segs 01/08/2024 09:00:00 2.83 1.80-7.70 (K/uL) Final Lymphs, absolute 01/08/2024 09:00:00 0.62 Below low normal 1.00-4.80 (K/ul) Final Monos, Abs 01/08/2024 09:00:00 0.60 0.00-1.10 (K/uL) Final Eos, Abs 01/08/2024 09:00:00 0.08 0.00-0.70 (K/uL) Final Basos, Abs 01/08/2024 09:00:00 0.02 0.00-0.20 (K/uL) Final Immature Granulocytes, Number 01/08/2024 09:00:00 0.02 0.00-0.20 (K/uL) Final Performing Location LABORATORY [facility] - [facility] [address]. [facility] [address]
--- OUTSIDE RECORDS SUMMARY | 2024-03-26 16:25 | External Medical Summary | Summary of Care ---
Author Name Unknown Organization [facility] Address [address] [facility] [place] [address] Phone [phone] Care Team Providers Care Dynamite Shooter Name Role Phone Michael Collins MD Primary Care Provi zehra Reason for Visit * Reason Comments Chemotherapy Cytoxan. * Episode Based Medications (Routine) - Authorized Specialty Diagnoses / Procedures Referred By Contac t Referred To Contact Diagnoses Multiple myeloma not having achieved remission (HCC) Procedures KS DARATUMUMAB, HYALURONIDASE KS INJ, CYCLOPHOSPHAMIDE, NOS Morgan Vásquez MD [address] [place] [address] Anc Hem/Onc Amena You DEPT CLOSED - 03/26/23 [address] [facility] [place] [address] Referral ID Status Reason Start Date Expiration Date V isits Requested Visits Authorized [id number] Authorized 05/28/2022 05/12/2099 99 99 Encounter Details Date Type Department Care Team (Latest Contact Info) Description 12/19/2023 8:45 AM EDT Hem/Onc Treatment Hematology/Oncolog y Treatment, [place] [address] [place] [phone] Kenyatta, Chair 9 Hem Onc Scenery [address] [place] [address] Multiple myeloma not having achieved remission (HCC)*; Encounter for antineoplastic chemotherapy Allergies No known active allergiesdocumented as of this encounter (statuses as of 12/19/2023) Medications Medication Sig Dispensed Refills Start Date End Date Status THEOPHYLLINE ER 450 MG PO [id number] tablet at bedtime Take by mouth. Indications: [...] at bedtime. PATIENT INFORMATION: Kris Galvin [address] [place] [address] [employer]: [employer] ORDER: Please start nocturnal oxygen via nasal [...] (electronically signed) Ish Caba MD Pulmonary Medicine, [address] [place] [address] [place] [facility] Medical License Number: [id number] 1 Each 09/21/2022 Active metFORMIN HCl ER [...] as of this encounter (statuses as of 12/19/2023) Active Problems Problem Noted Date Diagnosed Date [...] as of this encounter (statuses as of 12/19/2023) Resolved Problems Problem Noted Date Diagnosed Date Resolved Date Asthma in remission 08/28/2022 08/29/19 Asthma, mild persistent 08/28/202208/11 Asthma, severe persistent 08/28/2022 Stem cell transplant candidate 08/17/2019 09/02/2019 documented as of this encounter (statuses as of 12/19/2023) Immunizations Name Administration Dates Next Due COVID-19 mRNA, LNP-s, No Pre serve, 2-Dose Series (ResponseTek) 01/17/2021,08/05/2020,07/08/2020 COVID-19, LNP-s, No Preserve , Bryant-sucrose, Ages 12+ (ResponseTek) 09/26/2021 DTaP Dipth/Tet/Acell Pertussis (Infanrix), Peds 02/23/2021,11/11/2020,09/09/2020 [...] Care Team (Late st Contact Info) Description 12/25/2023 7:05 AM EDT Laboratory Lab Mobile Phle[facility] [address] [place] [address] [facility], [facility] Home Draw [address] [place] [address] 12/26/2023 9:00 AM EDT Hem/Onc Treatment Hematology/Oncology Treatment, [place] [address] [place] [phone] Kenyatta, Chair 10 Hem Onc Scenery [address] [place] [address] 01/01/2024 7:05 AM EDT Laboratory Lab Mobile Phlebotomy [facility] [address] [place] [address] M[facility], Gml Mobile Home Draw [address] [place] [address] 01/02/2024 8:30 AM EDT [facility] [address] [place] [phone] Kenyatta, Chair 7 Hem Onc Scenery [address] [place] [address] 01/08/2024 7:00 AM EDT Laboratory Lab Mobile Phlebotomy [facility] [address] [place] [address] Mv[facility], Gml Mobile Home Draw [address] [place] [address] 01/09/2024 8:30 AM EDT [facility] 200 [place] [phone] Kenyatta, Chair 9 Hem Onc Scenery [address] [place] [address] 01/15/2024 7:05 AM EDT Laboratory Lab [facility] Phlebotomy [facility] [address] [place] [address] Mvmg, Gml Mobile Home Draw [address] [place] [address] 01/22/2024 7:05 AM EDT Laboratory Lab Mobile Phlebotomy [facility] [address] [place] [address] Mvmg, Gml Mobile Home Draw [address] [place], [place] [address] 01/29/2024 7:05 AM EDT Laboratory Lab Mobile Phlebotomy [facility] [address] [place] [address] Mv[facility], Gml Mobile Home Draw [address] [place] [address] 02/05/2024 7:00 AM EDT Laboratory Lab Mobile Phlebotomy [facility] [address] [employer], [place] [address] Mv[facility], Gml Mobile Home Draw [address] [place], [place] [address] 02/05/2024 8:40 AM EDT Office Visit Neurology [facility] [place] [address] [facility] [place] [address] Octavia Goins PA-C [address] [facility] [place], [place] [address] 02/07/2024 8:00 AM EDT Office Visit Rheumatology [address] [place] [phone] Darnell Higgins MD [address] [place] [address] 02/12/2024 7:05 AM EDT Laboratory Lab [facility] Phlebotomy [facility] [address] [place] [address] Mvmg, Gml Mobile Home Draw [address] [place] [address] 02/19/2024 7:05 AM EDT Laboratory Lab [facility] Phlebotomy [facility] [address] [place], [place] [address] Mvmg, Gml Mobile Home Draw [address] [place] [address] 02/26/2024 7:05 AM EDT Laboratory Lab Mobile Phlebotomy [facility] [address] [place] [address] Mvmg, Gml Mobile Home Draw [address] [place] [address] 03/04/2024 7:00 AM EDT Laboratory Lab [facility] Phlebotomy [facility] [address] [place] [address] Mvmg, Gml Mobile Home Draw [address] [place] [address] 03/05/2024 10:45 AM EDT Office Visit Hematology/Oncology [facility] [address] [facility], [place] [phone] Morgan Vásquez MD [address] [place] [address] 03/11/2024 7:05 AM EDT Laboratory Lab Mobile Phlebotomy [facility] [address] [facility] [place], [place] [address] Mvmg, Gml Mobile Home Draw [address] [place] [address] 03/18/2024 7:05 AM EST Laboratory Lab [facility] Phlebotomy [facility] [address] [facility] [place], [place] [address] Mvmg, Gml Mobile Home Draw [address] [place] [address] 03/25/2024 7:05 AM EST Laboratory Lab [facility] Phlebot[facility] [address] [place] [address] Mvmg, Gml [facility] Draw [address] [place] [address] 04/01/2024 7:00 AM EST Laboratory Lab [facility] Phlebotomy [facility] [address] [place] [address] Mvmg, Gml Mobile Home Draw [address] [place] [address] 04/08/2024 7:05 AM EST Laboratory Lab [facility] Phlebotomy [facility] [address] [place] [address] Mvmg, Gml Mobile Home Draw [address] [place] [address] 04/15/2024 7:05 AM EST Laboratory Lab Mobile Phlebotomy [facility] [address] [place] [address] Mvmg, Gml Mobile Home Draw [address] [place] [address] 04/22/2024 7:05 AM EST Laboratory Lab Mobile Phlebotomy [facility] [address] [place] [address] Mvmg, Gml Mobile Home Draw [address] [place] [address] 04/29/2024 7:05 AM EST Laboratory Lab Mobile Phlebotomy [facility] [address] [place] [address] Mvmg, Gml Mobile Home Draw [address] [place] [address] 05/05/2024 7:05 AM EST Laboratory Lab Mobile Phlebotomy [facility] [address] [place] [address] Mvmg, Gml Mobile Home Draw [address] [place] [address] 09/02/2024 8:20 AM EDT Office Visit Pulmonary Medicine, [facility] [address] [facility] [place] [phone] Ish Caba MD [address] [place] [address] 05/03/2025 7:40 AM EST Office Visit Dermatology [address] [place] [phone] Albina Romo PA-C [address] [place] [address] [place] [address] Health Maintenance Due Date Last Done Comments Depression Screening 1976 Albumin/Creatinine Ratio 1982 Cologuard 2009 Fecal Occult Blood Test 2009 Sigmoidoscopy 2009 COVID-19 Vaccine (2022- season) 2023 01/28/2022, 09/26/2021, 01/17/2021, Additional history exists Colonoscopy 03/03/2023 03/03/2018, 03/03/2018 Colorectal Cancer Screening 03/03/2023 Lipid Panel 11/18/2024 11/19/2019, 07/11, 07/29/2009 GFR 12/17/2024 12/18/2023, 11/12, 12/04/2023, Additional history exists Diabetes Screening 12/17/2026 12/18/2023, 0 12/11/2023, 12/04/2023, Additional history exists DTaP,Tdap,and Td Vaccines (4 [...] this encounter Medical Devices Implanted Type Area Vibrating Screed Operator Device Identifier Shelf Expiration Date Model / Serial / Lot Mesh Plug Xlarge [id number] - [id number] Implanted:Qty: 1 on 12/09/2020 by John Zaragoza MD at OR [facility] Left: Groin CR BARD : DAVOL 05/09/2023 [id number] / / [id number] documented as of this encounter Visit Diagnoses [...] ONCE PRN Other, Hypersensitivity Reaction, Starting on Sat12/19/23 at 0839, Until Sat12/20/23 at 0838, For 24 hours EPINEPHrine 1 MG/ML inj 0.3 mg 0.3 mg, Intramuscular, ONCE PRN Other, Hypersensitivity Reaction or Anaphylaxis, Starting on Liliebth 12/19/23 at 0839, Until Sat12/20/23 at 0838, For 24 hours hEParin 100 UNIT/ML Lock Flush inj 500 Units 500 Units (5 mL), IV Lock, PRN Other, IV Flush, Starting on Sat12/19/23 at 0839, Until Sat12/20/23 at 0838, For 24 hours, Do not flush if lock, PICC, or central line not in place; IV infusing or unable to flush. Hydrocortisone Sod Suc (PF) (Solu-Cortef) inj 100 mg 100 mg, IV Push, ONCE PRN Other, Hypersensitivity Reaction, Starting on Sat12/19/23 at 0839, Until Sat12/20/23 at 0838, For 24 hours meperidine (Demerol) 25 MG/ML inj 25 mg 25 mg, IV Push, ONCE PRN Shivering, Starting on Sat12/19/23 at 0839, Until Sat12/20/23 at 0838, For 24 hours NSS infusion FOR HYDRATION Intravenous, at 50 mL/hr Administer over 10 Hours, CONTINUOUS, Starting on Lilibeth 12/19/23 at 0915, Until Discontinued Start Infusion 12/19/2023 8:50 AM EDT 500 mL 50 mL/hr sodium chloride 0.9 % flush central line 10 mL 10 mL, IV Push, PRN Other, IV Flush, Starting on Lilibeth 12/19/23 at 0839, Until Sat12/20/23 at 0838, For 24 hours, Do not flush if [...] 8:51 AM EDT 1,000 mL 500 mL/hr ondansetron [...] Power of Attor coco? No Care Teams Dynamite Shooter Relationship Specialty Start Date End Date Michael Collins MD [address] [place] [address] [place] [address] PCP - General Internal Medicine 03/01/14 documented as of this encounter
--- OUTSIDE RECORDS SUMMARY | 2024-03-26 16:25 | External Medical Summary ---
Author Name Unknown Address Unknown Organization [id number]:[facility] [place] - [address] [facility] [address] Laboratory Report Ordering Provider Test Date Status KALPESH SERRANO 01/08/2024 09:00:00 Final Observation Date Value Abnormality Reference (Units) Status PARAPROTEIN NORMAL/ABNORMAL 09:00:00 Abnormal Abnormal Normal Final Protein 4 09:00:00 5.9 Below low normal 6.0-8.3 (g/dL) Final Albumin/Protein.total [Pure mass fraction] in Serum or Plasma by Electrophoresis 4 09:00:00 3.53 3.30-4.40 (g/dL) Final Alpha 1 globulin/Protein.tota l [Pure mass fraction] in Serum or Plasma by Electrophoresis 4 09:00:00 0.20 0.10-0.30 (g/dL) Final Alpha 2 globulin/Protein.tota l [Pure mass fraction] in Serum or Plasma by Electrophoresis 4 09:00:00 0.80 0.60-1.00 (g/dL) Final Beta globulin/Protein.tota l [Pure mass fraction] in Serum or Plasma by Electrophoresis 4 09:00:00 0.77 Below low normal 0.80-1.30 (g/dL) Final Gamma globulin/Protein.tota l [Pure mass fraction] in Serum or Plasma by Electrophoresis 4 09:00:00 0.60 Below low normal 0.70-1.70 (g/dL) Final Protein Fractions [Interpretation] in Serum or Plasma by Electrophoresis Narrative 4 09:00:00 Abnormal. A paraprotein is present that has been previously identified as a monoclonal IgG kappa. Paraprotein concentration is detectable, but less than 0.5 g/dL, unable to be accurately quantified by this method. Decreased gamma fraction. Final Performing Location LABORATORY [facility] - [address] [facility] [address]
--- OUTSIDE RECORDS SUMMARY | 2024-03-26 16:25 | External Medical Summary ---
Author Name Unknown Address Unknown Organization [id number]:[facility] [place] [facility] [address] - [address] [place] [address] Laboratory Report Ordering Provider Test Date Status KALPESH SERRANO 12/25/2023 09:15:00 Final Observation Date Value Abnormality Reference (Units ) Status BUN 12/25/2023 09:15:00 19 6-20 (mg/dL) Final Creatinine 12/25/2023 09:15:00 1.1 0.6-1.2 (mg/dL) Final Glomerular filtration rate/1.73 sq M.predicted [Volume Rate/Area] in Serum, Plasma or Blood by Creatinine-based formula (CKD-EPI) 12/25/2023 09:15:00 78 >=60 (mL/min) Final eGFR is calculated based on the CKD-EPI 2020 equation. Sodium 12/25/2023 09:15:00 137 135-146 (m mol/L) Final Potassium 12/25/2023 09:15:00 3.8 3.5-5.1 (m mol/L) Final Cl 12/25/2023 09:15:00 98 98-107 (mm ol/L) Final CO2 12/25/2023 09:15:00 24 22-32 (mmo l/L) Final Anion gap 12/25/2023 09:15:00 15 7-15 (mmol /L) Final Glucose 12/25/2023 09:15:00 106 70-120 (mg /dL) Final Albumin 12/25/2023 09:15:00 4.6 3.8-5.0 (g /dL) Final AST (Aspartate aminotransferase) 12/25/2023 09:15:00 21 10-50 (U/L) Final Alk Phos 12/25/2023 09:15:00 115 35-130 (U/ L) Final Bilirubin, Total 12/25/2023 09:15:00 0.6 <=1 .2 (mg/dL) Final Calcium 12/25/2023 09:15:00 9.5 8.4-10.2 ( mg/dL) Final Protein 12/25/2023 09:15:00 6.5 6.0-8.3 (g /dL) Final ALT (Alanine aminotransferase) 12/25/2023 09:15:00 19 10-50 (U/L) Final Performing Location LABORATORY [place] [address] - [address] [facility] [address]
--- OUTSIDE RECORDS SUMMARY | 2024-03-26 16:25 | External Medical Summary ---
Author Name Unknown Address Unknown Organization [id number]:[facility] [place] - [address] [place] [facility] [place] [address] Laboratory Report Ordering Provider Test Date Status KALPESH SERRANO 01/08/2024 09:00:00 Final Observation Date Value Abnormality Reference (Units ) Status BUN 01/08/2024 09:00:00 16 6-20 (mg/dL) Final Creatinine 01/08/2024 09:00:00 1.0 0.6-1.2 (mg/dL) Final Glomerular filtration rate/1.73 sq M.predicted [Volume Rate/Area] in Serum, Plasma or Blood by Creatinine-based formula (CKD-EPI) 01/08/2024 09:00:00 84 >=60 (mL/min) Final eGFR is calculated based on the CKD-EPI 2020 equation. Sodium 01/08/2024 09:00:00 137 135-146 (m mol/L) Final Potassium 01/08/2024 09:00:00 4.3 3.5-5.1 (m mol/L) Final Cl 01/08/2024 09:00:00 99 98-107 (mm ol/L) Final CO2 01/08/2024 09:00:00 28 22-32 (mmo l/L) Final Anion gap 01/08/2024 09:00:00 10 7-15 (mmol /L) Final Glucose 01/08/2024 09:00:00 101 70-120 (mg /dL) Final Albumin 01/08/2024 09:00:00 4.5 3.8-5.0 (g /dL) Final AST (Aspartate aminotransferase) 01/08/2024 09:00:00 24 10-50 (U/L) Final Alk Phos 01/08/2024 09:00:00 111 35-130 (U/ L) Final Bilirubin, Total 01/08/2024 09:00:00 0.2 <=1 .2 (mg/dL) Final Calcium 01/08/2024 09:00:00 9.3 8.4-10.2 ( mg/dL) Final Protein 01/08/2024 09:00:00 6.0 6.0-8.3 (g /dL) Final ALT (Alanine aminotransferase) 01/08/2024 09:00:00 21 10-50 (U/L) Final Performing Location [facility] [place] - [address] [facility] [address]
--- OUTSIDE RECORDS SUMMARY | 2024-03-26 16:25 | External Medical Summary | Summary of Care ---
Author Name Unknown Organization [facility] Address [address] [facility] [place] [address] Phone [phone] Care Team Providers Care Space Operations Name Role Phone Michael Collins MD Primary Care Provi zehra Reason for Visit * Reason Comments Chemotherapy Cytoxan IV Therapy Hydration * Episode Based Medications (Routine) - Authorized Specialty Diagnoses / Procedures Referred By Contac t Referred To Contact Diagnoses Multiple myeloma not having achieved remission (HCC) Procedures IN DARATUMUMAB, HYALURONIDASE IN INJ, CYCLOPHOSPHAMIDE, NOS Morgan Vásquez MD 200 [facility] [place] [address] [place] Hem/Onc Amena You DEPT CLOSED - 03/26/23 200 [facility] [place] [address] Referral ID Status Reason Start Date Expiration Date V isits Requested Visits Authorized [id number] Authorized 05/28/2022 05/12/2099 99 99 Encounter Details Date Type Department Care Team (Latest Contact Info) Description 11/28/2023 8:30 AM EDT Hem/Onc Treatment Hematology/Oncology Treatment, [place] [address] [place] [address] Kenyatta, Chair 9 Hem Onc [facility] 200 [facility] [place] [address] Multiple myeloma not having achieved remission (HCC)* Allergies No known active allergiesdocumented as of this encounter (statuses as of 12/19/2023) Medications Medication Sig Dispensed Refills Start Date End Date Status THEOPHYLLINE ER 450 MG PO [id number] tablet at bedtime Take by mouth. Indications: [...] CAPS Take by mouth. Active Multiple Vitamins-Minerals ([facility] IMMUNITY SUPPORT) CHEW Take [...] at bedtime. PATIENT INFORMATION: Kris Galvin [address] [place] [address] [employer]: [email or web address] ORDER: Please start nocturnal oxygen via nasal [...] signed) Ish Caba MD Pulmonary Medicine, [address] [place] [address] [place] [facility] Medical License Number: [id number] 1 Each 09/21/2022 Active metFORMIN HCl ER [...] mRNA, LNP-s, No Pre serve, 2-Dose Series ([employer]) 01/17/2021,08/05/2020,07/08/2020 COVID-19, LNP-s, No Preserve , Bryant-sucrose, Ages 12+ ([employer]) 09/26/2021 DTaP Dipth/Tet/Acell Pertussis ([employer]an[employer]), Peds 02/23/2021,11/11/2020,09/09/2020 [...] Sign Reading Time Taken Comments Blood Pressure 121/81 11/28/2023 9:04 AM EDT Pulse 84 11/28/2023 9:04 AM EDT Temperature 36.8 C (98.2 F) 11/28/2023 9:04 AM ED T Respiratory Rate 16 11/28/2023 9:04 AM EDT Oxygen Saturation 94% 11/28/2023 9:04 AM EDT Inhaled Oxygen Concentration - - Weight 132 kg (291 lb) 11/28/2023 9:04 AM EDT Height - - Body Mass [...] as of this encounter Nursing Notes * Orville Lopez, RN - 11/28/2023 11:33 AM EDT Infusions completed without issues. Pt denies any reportable symptoms. IV site removed with catheter tip intact. Pt ambulated from treatment room in stable condition. Goals: Pt will remain free from injury. Possible barriers to meeting goals: IV Chemotherapy Stability of the patient: Moderately stable - low risk of patient condition declining or worsening Summary regarding today's goals: Met: Pt remained free from injury. * Orville Lopez RN - 11/28/2023 9:04 AM EDT Chair 1. IV inserted into RH without issues. Pt states he has issues with constipation/diarrhea, has been using immodium/stool softeners, denies this issue at this current time. Fluids infusing per orders. Pretreatment meds given per orders. Safety and Risk for Injury Patient will remain free from injury. Ensure appropriate safety devices are available. Provide and maintain safe environment. Chemotherapy/Immunotherapy agents: Cytoxan Consent for chemotherapy drug treatment complete, dated, and signed? yes, date - 10/17/23 Treatment lab parameters met? Yes Has treatment weight changed > than 10%? No Treatment preauthorized? Yes VITALS Filed Vitals: 11/28/23 0904 BP: 121/81 Pulse: 84 Resp: 16 Temp: 36.8 C (98.2 F) SpO2: 94% Weight: 132 kg (291 lb) Urine protein: N/A Patient education completed [...] symptoms or adverse side effects during treatment. PRE-TREATMENT ASSESSMENT: NEURO: denies symptoms and fatigue:moderate CV/RESP: denies symptoms GI/: denies symptoms, diarrhea: intermittent, using immodium with effect, and constipation: intermittent, using stool softeneres with effect OTHER: denies any additional symptoms PAIN: 0 documented in this encounter Plan of Treatment Upcoming Encounters Date Type Department Care Team (Late st Contact Info) Description 12/25/2023 7:05 AM EDT Laboratory Lab Mobile Phlebotomy [facility] [address] [place] [address] Mvmg, Gml Mobile Home Draw 2520 [facility] [place] [address] 12/26/2023 9:00 AM EDT [facility] 200 [place] [phone] Park, Chair 10 Hem Onc Scenery 200 [place] [address] 01/01/2024 7:05 AM EDT Laboratory Lab Mobile Phlebotomy [facility] [address] [place] [address] Mvmg, Gml Mobile Home Draw 2520 [facility] [place] [address] 01/02/2024 8:30 AM EDT Hem/Onc Treatment Hematology/Oncology Treatment, [place] 200 [place] [phone] Kenyatta, Chair 7 Hem Onc Scenery 200 [place] [address] 01/08/2024 7:00 AM EDT Laboratory Lab Mobile Phlebotomy [facility] [address] [place] [address] Mvmg, Gml Mobile Home Draw [address] [place] [address] 01/09/2024 8:30 AM EDT Hem/Onc Treatment Hematology/Oncology Treatment, [place] 200 [place] [phone] Park, Chair 9 Hem Onc Scenery 200 [place] [address] 01/15/2024 7:05 AM EDT Laboratory Lab Mobile Phlebotomy [facility] [address] [facility] [place] [address] Mvmg, Gml Mobile Home Draw [address] [place] [address] 01/22/2024 7:05 AM EDT Laboratory Lab Mobile Phlebotomy [facility] [address] [employer], [place] [address] Mvmg, Gml Mobile Home Draw [address] [place], [place] [address] 01/29/2024 7:05 AM EDT Laboratory Lab Mobile Phlebotomy [facility] [address] [place], [place] [address] Mvmg, Gml Mobile Home Draw [address] [place], [place] [address] 02/05/2024 7:00 AM EDT Laboratory Lab Mobile Phlebotomy [facility] [address] [employer], [place] [address] Mvmg, Gml Mobile Home Draw [address] [place], [place] [address] 02/05/2024 8:40 AM EDT Office Visit Neurology [facility] 200 [facility] [place], [place] [address] Octavia Goins PA-C 200 [facility] [place], [place] [address] 02/07/2024 8:00 AM EDT Office Visit Rheumatology [address] [place] [phone] Darnell Higgins MD [facility] [place], [place] [address] 02/12/2024 7:05 AM EDT Laboratory Lab Mobile Phlebotomy [facility] [address] [place], [place] [address] Mvmg, Gml Mobile Home Draw [address], [place] [address] 02/19/2024 7:05 AM EDT Laboratory Lab Mobile Phlebotomy [facility] [address], [place] [address] Mvmg, Gml Mobile Home Draw [address], [place] [address] 02/26/2024 7:05 AM EDT Laboratory Lab Mobile Phlebotomy [facility] [address] [place] [address] Mvmg, Gml Mobile Home Draw 2520 [facility] [place] [address] 03/04/2024 7:00 AM EDT Laboratory Lab Mobile Phlebotomy [facility] [address] [place] [address] Mvmg, Gml Mobile Home Draw 2520 [facility] [place] [address] 03/05/2024 10:45 AM EDT Office Visit Hematology/Oncology Amena You [place] 200 [facility] [place] [phone] Morgan Vásquez MD 200 [place] [address] 03/11/2024 7:05 AM EDT Laboratory Lab Mobile Phlebotomy [facility] [address] [place] [address] Mvmg, Gml Mobile Home Draw 2520 [facility] [place] [address] 03/18/2024 7:05 AM EST Laboratory Lab Mobile Phlebotomy [facility] [address] [place] [address] Mvmg, Gml Mobile Home Draw 2520 [address] [facility] [address] 03/25/2024 7:05 AM EST Laboratory Lab Mobile Phlebotomy [facility] [address] [place] [address] Mvmg, Gml Mobile Home Draw 2520 [facility] [place] [address] 04/01/2024 7:00 AM EST Laboratory Lab Mobile Phlebotomy [facility] [address] [place] [address] Mvmg, Gml Mobile Home Draw [address] [place] [address] 04/08/2024 7:05 AM EST Laboratory Lab Mobile Phlebotomy [facility] [address] [place] [address] Mvmg, Gml Mobile Home Draw [address] [place] [address] 04/15/2024 7:05 AM EST Laboratory Lab Mobile Phlebotomy [facility] [address] [place] [address] Mvmg, Gml Mobile Home Draw [address] [place] [address] 04/22/2024 7:05 AM EST Laboratory Lab Mobile Phlebotomy [facility] [address] [place] [address] Mvmg, Gml Mobile Home Draw [address] [place] [address] 04/29/2024 7:05 AM EST Laboratory Lab Mobile Phlebotomy [facility] [address] [place] [address] Mvmg, Gml Mobile Home Draw [address] [place] [address] 05/05/2024 7:05 AM EST Laboratory Lab Mobile Phlebotomy [facility] [address] [place] [address] Mvmg, Gml Mobile Home Draw [address] [place] [employer] [place] [address] 09/02/2024 8:20 AM EDT Office Visit Pulmonary Medicine, [facility] 132 [facility] [place] [address] Ish Caba MD [address] [place] [address] 05/03/2025 7:40 AM EST Office Visit Dermatology [address] [place] [address] Albina Romo PA-C [address] [place] [address] [place] [address] Health Maintenance Due Date Last Done Comments [...] this encounter Medical Devices Implanted Type Area Pediatric Nephrologist Device Identifier Shelf Expiration Date Model / Serial / Lot Mesh Plug Xlarge [id number] - [id number] Implanted:Qty: 1 on 12/09/2020 by John Zaragoza MD at OR [facility] Left: Groin CR BARD : DAVOL 05/09/2023 [id number] / / [id number] documented as of this encounter Visit Diagnoses Diagnosis Multiple myeloma not having achieved remission (HCC)- Primary Multiple myeloma, without mention of having achieved remission documented in this encounter Administered Medications [...] not tolerated., ONCE, 1 dose, On Lilibeth 11/28/23 at 0915 Rate Verify 11/28/2023 9:54 AM EDT 517.4 mL/hr Start Infusion 11/28/2023 9:01 AM EDT 740 mg 517.4 mL/ hr dexAMETHasone (Decadron) tab 40 mg 40 mg, Oral, ONCE, On Lilibeth 11/28/23 at 0845, For 1 dose Given 11/28/2023 8:42 AM EDT 40 mg NSS infusion FOR HYDRATION Intravenous, at 500 mL/hr Administer over 2 Hours, ONCE, 1 dose, On Lilibeth 11/28/23 at 0915 Start Infusion 11/28/2023 8:41 AM EDT 1,000 mL 500 mL/hr NSS infusion Intravenous, at 50 mL/hr Administer over 10 Hours, CONTINUOUS, Starting on Lilibeth 11/28/23 at 0915, Until Lilibeth 11/28/23 at 1535 Start Infusion 11/28/2023 8:40 AM EDT 500 mL 50 mL/hr ondansetron (Zofran) tab 8 mg 8 mg, Oral, ONCE, On Lilibeth 11/28/23 at 0845, For 1 dose Given 11/28/2023 8:42 AM EDT 8 mg documented in this [...] Power of Attor coco? No Care Teams Space Operations Relationship Specialty Start Date End Date Michael Collins MD [address] [place] [address] [place] [address] PCP - General Internal Medicine 03/01/14 documented as of this encounter
--- OUTSIDE RECORDS SUMMARY | 2024-03-26 16:25 | External Medical Summary ---
Author Name Unknown Address Unknown Organization K01:LABORATORY [facility] - [address] [place] [facility] [address] Laboratory Report Ordering Provider Test Date Status KALPESH SERRANO 01/01/2024 08:00:00 Final Observation Date Value Abnormality Reference (Units ) Status BUN 01/01/2024 08:00:00 17 6-20 (mg/dL) Final Creatinine 01/01/2024 08:00:00 1.0 0.6-1.2 (mg/dL) Final Glomerular filtration rate/1.73 sq M.predicted [Volume Rate/Area] in Serum, Plasma or Blood by Creatinine-based formula (CKD-EPI) 01/01/2024 08:00:00 83 >=60 (mL/min) Final eGFR is calculated based on the CKD-EPI 2020 equation. Sodium 01/01/2024 08:00:00 141 135-146 (m mol/L) Final Potassium 01/01/2024 08:00:00 4.0 3.5-5.1 (m mol/L) Final Cl 01/01/2024 08:00:00 99 98-107 (mm ol/L) Final CO2 01/01/2024 08:00:00 29 22-32 (mmo l/L) Final Anion gap 01/01/2024 08:00:00 13 7-15 (mmol /L) Final Glucose 01/01/2024 08:00:00 100 70-120 (mg /dL) Final Albumin 01/01/2024 08:00:00 4.3 3.8-5.0 (g /dL) Final AST (Aspartate aminotransferase) 01/01/2024 08:00:00 23 10-50 (U/L) Fin al Alk Phos 01/01/2024 08:00:00 119 35-130 (U/ L) Final Bilirubin, Total 01/01/2024 08:00:00 0.4 <=1 .2 (mg/dL) Final Calcium 01/01/2024 08:00:00 9.2 8.4-10.2 ( mg/dL) Final Protein 01/01/2024 08:00:00 5.9 Below low normal 6.0 -8.3 (g/dL) Final ALT (Alanine aminotransferase) 01/01/2024 08:00:00 15 10-50 (U/L) Regis figueroa Performing Location LABORATORY [facility] - [facility] N Josselin Peña. [facility] [address]
--- OUTSIDE RECORDS SUMMARY | 2024-03-26 16:26 | External Medical Summary | Summary of Care ---
Author Name Unknown Organization [facility] Address [address] [facility] [place] [address] Phone [phone] Care Team Providers Care Auto Self Service Station Attendant Name Role Phone Michael Collins MD Primary Care Provi zehra Reason for Visit * Reason Comments Chemotherapy Cytoxan IV Therapy Hydration * Episode Based Medications (Routine) - Authorized Specialty Diagnoses / Procedures Referred By Contac t Referred To Contact Diagnoses Multiple myeloma not having achieved remission (HCC) Procedures ID DARATUMUMAB, HYALURONIDASE ID INJ, CYCLOPHOSPHAMIDE, NOS Morgan Vásquez MD 200 [facility] [place] [address] Anc Hem/Onc Amena You DEPT CLOSED - 03/26/23 200 [facility] [place] [address] Referral ID Status Reason Start Date Expiration Date V isits Requested Visits Authorized [id number] Authorized 05/28/2022 05/12/2099 99 99 Encounter Details Date Type Department Care Team (Latest Contact Info) Description 11/28/2023 8:30 AM EDT Hem/Onc Treatment Hematology/Oncology Treatment, [place] [address] [place] [address] Kenyatta, Chair 9 Hem Onc [facility] 200 [facility] [place] [address] Multiple myeloma not having achieved remission (HCC)* Allergies No known active allergiesdocumented as of this encounter (statuses as of 12/19/2023) Medications Medication Sig Dispensed Refills Start Date End Date Status THEOPHYLLINE ER 450 MG PO [id number] tablet at bedtime Take by mouth. Indications: [...] at bedtime. PATIENT INFORMATION: Kris Galvin [address] [place] [address] [employer]: [employer] ORDER: Please start nocturnal oxygen via nasal [...] signed) Ish Caba MD Pulmonary Medicine, [address] [place] [address] [place] [facility] Medical License Number: [id number] 1 Each 09/21/2022 Active metFORMIN HCl ER [...] mRNA, LNP-s, No Pre serve, 2-Dose Series ([employer]) 01/17/2021,08/05/2020,07/08/2020 COVID-19, LNP-s, No Preserve , Bryant-sucrose, Ages 12+ ([employer]) 09/26/2021 DTaP Dipth/Tet/Acell Pertussis (Infanrix), Peds 02/23/2021,11/11/2020,09/09/2020 [...] EDT Laboratory Lab Mobile Phlebotomy [facility] [address] [place] [address] Mvmg, Gml Mobile Home Draw 2520 [facility] [place] [address] 12/26/2023 9:00 AM EDT [facility] 200 [place] [phone] Park, Chair 10 Hem Onc Scenery 200 [place] [address] 01/01/2024 7:05 AM EDT Laboratory Lab Mobile Phlebotomy [facility] [address] [place] [address] Mvmg, Gml Mobile Home Draw 2520 [facility] [place] [address] 01/02/2024 8:30 AM EDT Hem/Onc Treatment Hematology/Oncology Treatment, [place] 200 [place] [phone] Kenyatta, Chair 7 Hem Onc Scenery 200 [place] [address] 01/08/2024 7:00 AM EDT Laboratory Lab Mobile Phlebotomy [facility] [address] [place] [address] Mvmg, Gml Mobile Home Draw [address] [place] [address] 01/09/2024 8:30 AM EDT Hem/Onc Treatment Hematology/Oncology Treatment, [place] 200 [place] [phone] Park, Chair 9 Hem Onc Scenery 200 [facility] [place] [address] 01/15/2024 7:05 AM EDT Laboratory Lab Mobile Phlebotomy [facility] [address] [facility] [place] [place] [address] Mvmg, Gml Mobile Home Draw [address] [place] [address] 01/22/2024 7:05 AM EDT Laboratory Lab Mobile Phlebotomy [facility] [address] [employer], [place] [address] Mvmg, Gml Mobile Home Draw [address] [place], [place] [address] 01/29/2024 7:05 AM EDT Laboratory Lab Mobile Phlebotomy [facility] [address] [place], [place] [address] Mvmg, Gml Mobile Home Draw [address] [place], [place] [address] 02/05/2024 7:00 AM EDT Laboratory Lab Mobile Phlebotomy [facility] [address] [employer], [place] [address] Mvmg, Gml Mobile Home Draw [address] [place], [place] [address] 02/05/2024 8:40 AM EDT Office Visit Neurology [facility] 200 [facility] [place], [place] [address] Octavia Goins PA-C 200 [facility] [place], [place] [address] 02/07/2024 8:00 AM EDT Office Visit Rheumatology [address] [place] [phone] Darnell Higgins MD [facility] [place], [place] [address] 02/12/2024 7:05 AM EDT Laboratory Lab Mobile Phlebotomy [facility] [address] [place], [place] [address] Mvmg, Gml Mobile Home Draw [address] [place], [place] [address] 02/19/2024 7:05 AM EDT Laboratory Lab Mobile Phlebotomy [facility] [address] [place], [place] [address] Mvmg, Gml Mobile Home Draw [address] [place], [place] [address] 02/26/2024 7:05 AM EDT Laboratory Lab Mobile Phlebotomy [facility] [address] [place] [address] Mvmg, Gml Mobile Home Draw 2520 [facility] [place] [address] 03/04/2024 7:00 AM EDT Laboratory Lab Mobile Phlebotomy [facility] [address] [place] [address] Mvmg, Gml Mobile Home Draw 2520 [facility] [place] [address] 03/05/2024 10:45 AM EDT Office Visit Hematology/Oncology Amena You [place] 200 [facility] [place] [phone] Morgan Vásquez MD 200 [facility] [place] [address] 03/11/2024 7:05 AM EDT Laboratory Lab Mobile Phlebotomy [facility] [address] [place] [address] Mvmg, Gml Mobile Home Draw 2520 [facility] [place] [address] 03/18/2024 7:05 AM EST Laboratory Lab Mobile Phlebotomy [facility] [address] [place] [address] Mvmg, Gml Mobile Home Draw [address] [facility] [place] [place] [address] 03/25/2024 7:05 AM EST Laboratory Lab Mobile Phlebotomy [facility] [address] [place] [address] Mvmg, Gml Mobile Home Draw 2520 [facility] [place] [address] 04/01/2024 7:00 AM EST Laboratory Lab Mobile Phlebotomy [facility] [address] [place] [address] Mvmg, Gml Mobile Home Draw [address] [place] [address] 04/08/2024 7:05 AM EST Laboratory Lab Mobile Phlebotomy [facility] [address] [place] [address] Mvmg, Gml Mobile Home Draw [address] [place] [address] 04/15/2024 7:05 AM EST Laboratory Lab Mobile Phlebotomy [facility] [address] [place] [address] Mvmg, Gml Mobile Home Draw [address] [place] [address] 04/22/2024 7:05 AM EST Laboratory Lab Mobile Phlebotomy [facility] [address] [place] [address] Mvmg, Gml Mobile Home Draw [address] [place] [address] 04/29/2024 7:05 AM EST Laboratory Lab Mobile Phlebotomy [facility] [address] [place] [address] Mvmg, Gml Mobile Home Draw [address] [place] [address] 05/05/2024 7:05 AM EST Laboratory Lab Mobile Phlebotomy [facility] [address] [place] [address] Mvmg, Gml Mobile Home Draw [address] [place] [facility] [place] [address] 09/02/2024 8:20 AM EDT Office Visit Pulmonary Medicine, [facility] 132 [facility] [place] [address] Ish Caba MD [address] [place] [address] 05/03/2025 7:40 AM EST Office Visit Dermatology [address] [place] [address] Albina Romo PA-C [address] [place] [address] [place] [address] Health Maintenance Due Date Last Done Comments [...] this encounter Medical Devices Implanted Type Area Surplus Property Disposal Agent Device Identifier Shelf Expiration Date Model / Serial / Lot Mesh Plug Xlarge [id number] - [id number] Implanted:Qty: 1 on 12/09/2020 by John Zaragoza MD at OR [facility] Left: Groin CR BARD : DAVOL 05/09/2023 [id number] / / [id number] documented as of this encounter Visit Diagnoses [...] Power of Attor coco? No Care Teams Auto Self Service Station Attendant Relationship Specialty Start Date End Date Michael Collins MD [address] [place] [address] [place] [address] PCP - General Internal Medicine 03/01/14 documented as of this encounter
--- OUTSIDE RECORDS SUMMARY | 2024-03-26 16:26 | External Medical Summary | Summary of Care ---
Author Name Unknown Organization [facility] Address [address] [facility] [place] [address] Phone [phone] Care Team Providers Care Mac Operator Name Role Phone Michael Collins MD Primary Care Provi zehra Reason for Visit * Reason Comments Chemotherapy Cytoxan. * Episode Based Medications (Routine) - Authorized Specialty Diagnoses / Procedures Referred By Contac t Referred To Contact Diagnoses Multiple myeloma not having achieved remission (HCC) Procedures IN DARATUMUMAB, HYALURONIDASE IN INJ, CYCLOPHOSPHAMIDE, NOS Morgan Vásquez MD [address] [place] [address] Anc Hem/Onc Amena You DEPT CLOSED - 03/26/23 200 [facility] [place] [address] Referral ID Status Reason Start Date Expiration Date V isits Requested Visits Authorized [id number] Authorized 05/28/2022 05/12/2099 99 99 Encounter Details Date Type Department Care Team (Latest Contact Info) Description 12/05/2023 8:45 AM EDT Hem/Onc Treatment Hematology/Oncolog y Treatment, [place] [address] [place] [address] Kenyatta, Chair 2 Hem Onc Scenery [address] [place] [address] Multiple myeloma not having achieved remission (HCC)*; Encounter for antineoplastic chemotherapy Allergies No known active allergiesdocumented as of this encounter (statuses as of 12/19/2023) Medications Medication Sig Dispensed Refills Start Date End Date Status THEOPHYLLINE ER 450 MG PO [id number]:2 tablet at bedtime Take by mouth. Indications: [...] at bedtime. PATIENT INFORMATION: Kris Galvin [address] [place] [address] [employer]: [employer] ORDER: Please start nocturnal oxygen via nasal [...] signed) Ish Caba MD Pulmonary Medicine, [address] [place] [address] [place] [facility] Medical License Number: [id number] 1 Each 09/21/2022 Active metFORMIN HCl ER [...] mRNA, LNP-s, No Pre serve, 2-Dose Series ([employer]) 01/17/2021,08/05/2020,07/08/2020 COVID-19, LNP-s, No Preserve , Bryant-sucrose, Ages 12+ ([employer]) 09/26/2021 DTaP Dipth/Tet/Acell Pertussis (Infanrix), Peds 02/23/2021,11/11/2020,09/09/2020 [...] Sign Reading Time Taken Comments Blood Pressure 122/83 12/05/2023 8:40 AM EDT Pulse 91 12/05/2023 8:40 AM EDT Temperature 36.4 C (97.5 F) 12/05/2023 8:40 AM ED T Respiratory Rate 18 12/05/2023 8:40 AM EDT Oxygen Saturation 91% 12/05/2023 8:40 AM EDT Inhaled Oxygen Concentration - - Weight 131.6 kg (290 lb 3.2 oz) 12/05/2023 8:40 AM EDT Height - - Body Mass Index 39.36 10/11/2023 9:26 AM EDT documented in this [...] of this encounter Nursing Notes * Nimisha Zhang, RN - 12/05/2023 11:00 AM EDT Goals: Patient will remain free from injury. Possible barriers to meeting goals: Fall risk d/t ambulation with IV pole. Stability of the patient: Moderately stable - low risk of patient condition declining or worsening Summary regarding today's goals: Met: Patient remained free of injury. Patient tolerated infusion well. Discharged in stable condition. * Nimisha Zhang RN - 12/05/2023 9:08 AM EDT Chair 12. Patient arrived for cytoxan. Patient states has been tired after treatment when steroids wear off, otherwise no acute complaints. PIV established. Chemotherapy/Immunotherapy agents: CYTOXAN Consent for chemotherapy drug treatment complete, dated, and signed? yes, date - 12/29/21 Treatment lab parameters met? Yes Has treatment weight changed > than 10%? No Treatment preauthorized? Yes VITALS Filed Vitals: 12/05/23 0840 BP: 122/83 Pulse: 91 Resp: 18 Temp: 36.4 C (97.5 F) TempSrc: Tympanic SpO2: 91% Weight: 131.6 kg (290 lb 3.2 oz) Urine protein: N/A Patient [...] using the heat function. PRE-TREATMENT ASSESSMENT: NEURO: fatigue:see above note. CV/RESP: denies symptoms GI/: denies symptoms OTHER: denies any additional symptoms PAIN: 0 Safety and Risk for Injury Patient will remain free from injury. Ensure appropriate safety devices are available. Provide and maintain safe environment. documented in this encounter Plan of Treatment Upcoming Encounters Date Type Department Care Team (Late st Contact Info) Description 12/19/2023 8:45 AM EDT Hem/Onc Treatment Hematology/Oncology Treatment, [place] [address] [facility] [place] [phone] Kenyatta, Chair 9 Hem Onc Scenery 200 [place] [address] 12/25/2023 7:05 AM EDT Laboratory Lab Mobile Phlebotomy [facility] [address] [place] [address] Mvmg, Gml Mobile Home Draw [address] [place] [employer] [place] [place] [address] 12/26/2023 9:00 AM EDT Hem/Onc Treatment Hematology/Oncology Treatment, [place] [address] [facility] [place] [phone] Kenyatta, Chair 10 Hem Onc Scenery 200 [place] [address] 01/01/2024 7:05 AM EDT Laboratory Lab Mobile Phlebotomy [facility] [address] [place] [address] Mvmg, Gml Mobile Home Draw [address] [place] [address] 01/02/2024 8:30 AM EDT Hem/Onc Treatment Hematology/Oncology Treatment, [place] [address] [facility] [place] [phone] Kenyatta, Chair 7 Hem Onc Scenery 200 [place] [address] 01/08/2024 7:00 AM EDT Laboratory Lab Mobile Phlebotomy [facility] [address] [place] [address] Mvmg, Gml Mobile Home Draw [address] [place] [address] 01/09/2024 8:30 AM EDT Hem/Onc Treatment Hematology/Oncology Treatment, [place] [address] [facility] [place] [phone] Kenyatta, Chair 9 Hem Onc Scenery [address] [place] [address] 01/15/2024 7:05 AM EDT Laboratory Lab Mobile Phlebotomy [facility] [address] [employer] [employer] [place], [place] [address] Mvmg, Gml Mobile Home Draw [address] [facility] [place] [address] 01/22/2024 7:05 AM EDT Laboratory Lab Mobile Phlebotomy [facility] [address] [place] [address] Mvmg, Gml Mobile Home Draw [address] [facility] [place] [address] 01/29/2024 7:05 AM EDT Laboratory Lab Mobile Phlebotomy [facility] [address] [employer] [place], [place] [address] Mvmg, Gml Mobile Home Draw [address] [facility] [place], [place] [address] 02/05/2024 7:00 AM EDT Laboratory Lab Mobile Phlebotomy [facility] [address] [place] [address] Mvmg, Gml Mobile Home Draw [address] [facility] [place] [address] 02/05/2024 8:40 AM EDT Office Visit Neurology [facility] 200 [facility] [place], [place] [address] Octavia Goins PA-C 200 [place] [address] 02/07/2024 8:00 AM EDT Office Visit Rheumatology [address] [place] [phone] Darnell Higgins MD [address] [place] [address] [place], [place] [address] 02/12/2024 7:05 AM EDT Laboratory Lab Mobile Phlebotomy [facility] [address] [place] [address] Mvmg, Gml Mobile Home Draw [address] [place] [address] 02/19/2024 7:05 AM EDT Laboratory Lab Mobile Phlebotomy [facility] [address] [place] [address] Mvmg, Gml Mobile Home Draw [address] [place] [address] 02/26/2024 7:05 AM EDT Laboratory Lab Mobile Phlebotomy [facility] [address] [place] [address] Mvmg, Gml Mobile Home Draw [address] [place] [address] 03/04/2024 7:00 AM EDT Laboratory Lab Mobile Phlebotomy [facility] [address] [place] [address] Mvmg, Gml Mobile Home Draw [address] [place] [address] 03/05/2024 10:45 AM EDT Office Visit Hematology/Oncology [facility] 200 [facility] [place] [phone] Morgan Vásquez MD 200 [facility] [place] [address] 03/11/2024 7:05 AM EDT Laboratory Lab Mobile Phlebotomy [facility] [address] [place] [address] Mvmg, Gml Mobile Home Draw [address] [place] [address] 03/18/2024 7:05 AM EST Laboratory Lab Mobile Phlebotomy [facility] [address] [place] [address] Mvmg, Gml Mobile Home Draw [address] [place] [address] 03/25/2024 7:05 AM EST Laboratory Lab Mobile Phlebotomy [facility] [address] [place] [address] Mvmg, Gml Mobile Home Draw [address] [place] [address] 04/01/2024 7:00 AM EST Laboratory Lab Mobile Phlebotomy [facility] [address] [place] [address] Mvmg, Gml Mobile Home Draw [address] [place] [address] 04/08/2024 7:05 AM EST Laboratory Lab Mobile Phlebotomy [facility] [address] [place] [address] Mvmg, Gml Mobile Home Draw [address] [place] [address] 04/15/2024 7:05 AM EST Laboratory Lab Mobile Phlebotomy [facility] [address] [place] [address] Mvmg, Gml Mobile Home Draw [address] [place] [address] 04/22/2024 7:05 AM EST Laboratory Lab Mobile Phlebotomy [facility] [address] [place] [address] Mvmg, Gml Mobile Home Draw [address] [place] [address] 04/29/2024 7:05 AM EST Laboratory Lab Mobile Phlebotomy [facility] [address] [place] [address] Mvmg, Gml Mobile Home Draw [address] [place] [address] 05/05/2024 7:05 AM EST Laboratory Lab Mobile Phlebotomy [facility] [address] [place] [address] Mvmg, Gml Mobile Home Draw [address] [place] [address] 09/02/2024 8:20 AM EDT Office Visit Pulmonary Medicine, [facility] [address] [place] [address] Ish Caba MD [address] [place] [address] 05/03/2025 7:40 AM EST Office Visit Dermatology [address] [place] [address] Albina Romo PA-C [address] [place] [address] [place] [address] Health Maintenance Due Date Last Done Comments [...] this encounter Medical Devices Implanted Type Area Material Spreader Device Identifier Shelf Expiration Date Model / Serial / Lot Mesh Plug Xlarge [id number] - [id number] Implanted:Qty: 1 on 12/09/2020 by John Zaragoza MD at OR [facility] Left: Groin CR BARD : DAVOL 05/09/2023 [id number] / / [id number] documented as of this encounter Visit Diagnoses [...] not tolerated., ONCE, 1 dose, On Lilibeth 12/05/23 at 0915 Start Infusion 12/05/2023 9:27 AM EDT 740 mg 517.4 mL/hr dexAMETHasone (Decadron) tab 40 mg 40 mg, Oral, ONCE, On Lilibeth 12/05/23 at 0915, For 1 dose Given 12/05/2023 8:56 AM EDT 40 mg NSS infusion FOR HYDRATION Intravenous, at 500 mL/hr Administer over 2 Hours, ONCE, 1 dose, On Lilibeth 12/05/23 at 0915 Start Infusion 12/05/2023 8:55 AM EDT 1,000 mL 500 mL/hr NSS infusion FOR HYDRATION Intravenous, at 50 mL/hr Administer over 10 Hours, CONTINUOUS, Starting on Lilibeth 12/05/23 at 0915, Until Lilibeth 12/05/23 at 1501 Start Infusion 12/05/2023 8:53 AM EDT 500 mL 50 mL/hr ondansetron (Zofran) tab 8 mg 8 mg, Oral, ONCE, On Lilib[place] 12/05/23 at 0915, For 1 dose Given 12/05/2023 8:56 AM EDT 8 mg documented in this [...] Power of Attor coco? No Care Teams Mac Operator Relationship Specialty Start Date End Date Michael Collins MD [address] [place] [address] [place] [address] PCP - General Internal Medicine 03/01/14 documented as of this encounter
--- OUTSIDE RECORDS SUMMARY | 2024-03-26 16:26 | External Medical Summary | Summary of Care ---
Author Name Unknown Organization [facility] Address [address] [facility] [place] [address] Phone [phone] Care Team Providers Care Acoustical Installer Name Role Phone Michael Collins MD Primary Care Provi zehra Reason for Visit * Reason Comments Chemotherapy Cytoxan. * Episode Based Medications (Routine) - Authorized Specialty Diagnoses / Procedures Referred By Contac t Referred To Contact Diagnoses Multiple myeloma not having achieved remission (HCC) Procedures SC DARATUMUMAB, HYALURONIDASE SC INJ, CYCLOPHOSPHAMIDE, NOS Morgan Vásquez MD [address] [place] [address] Anc Hem/Onc Amena You DEPT CLOSED - 03/26/23 200 [facility] [place] [address] Referral ID Status Reason Start Date Expiration Date V isits Requested Visits Authorized [id number] Authorized 05/28/2022 05/12/2099 99 99 Encounter Details Date Type Department Care Team (Latest Contact Info) Description 12/05/2023 8:45 AM EDT Hem/Onc Treatment Hematology/Oncolog y Treatment, [place] [address] [place] [address] Kenyatta, Chair 2 Hem Onc Scenery [address] [place] [address] Multiple myeloma not having achieved remission (HCC)*; Encounter for antineoplastic chemotherapy Allergies No known active allergiesdocumented as of this encounter (statuses as of 12/19/2023) Medications Medication Sig Dispensed Refills Start Date End Date Status THEOPHYLLINE ER 450 MG PO [id number]:2 tablet at bedtime Take by mouth. Indications: [...] at bedtime. PATIENT INFORMATION: Kris Galvin [address] [place] [address] [employer]: [employer] ORDER: Please start nocturnal oxygen via nasal [...] signed) Ish Caba MD Pulmonary Medicine, [address] [place] [address] [place] [facility] Medical License Number: [id number] 1 Each 09/21/2022 Active metFORMIN HCl ER [...] mRNA, LNP-s, No Pre serve, 2-Dose Series ([employer]) 01/17/2021,08/05/2020,07/08/2020 COVID-19, LNP-s, No Preserve , Bryant-sucrose, Ages 12+ ([employer]) 09/26/2021 DTaP Dipth/Tet/Acell Pertussis (Infanrix), Peds 02/23/2021,11/11/2020,09/09/2020 [...] 8:45 AM EDT Hem/Onc Treatment Hematology/Oncology Treatment, [place] 200 [place] [phone] Kenyatta, Chair 9 Hem Onc Scenery 200 [facility] [place] [address] 12/25/2023 7:05 AM EDT Laboratory Lab Mobile Phlebotomy [facility] [address] [place] [address] Mvmg, Gml Mobile Home Draw [address] [place] [address] 12/26/2023 9:00 AM EDT Hem/Onc Treatment Hematology/Oncology Treatment, [place] 200 [place] [address] Kenyatta, Chair 10 Hem Onc Scenery 200 [facility] [place] [address] 01/01/2024 7:05 AM EDT Laboratory Lab Mobile Phlebotomy [facility] [address] [place] [address] Mvmg, Gml Mobile Home Draw [address] [place] [address] 01/02/2024 8:30 AM EDT Hem/Onc Treatment Hematology/Oncology Treatment, [place] 200 [place] [phone] Kenyatta, Chair 7 Hem Onc Scenery 200 [facility] [place] [address] 01/08/2024 7:00 AM EDT Laboratory Lab Mobile Phlebotomy [facility] [address] [place] [address] Mvmg, Gml Mobile Home Draw [address] [place] [address] 01/09/2024 8:30 AM EDT Hem/Onc Treatment Hematology/Oncology Treatment, [place] 200 [place] [address] Kenyatta, Chair 9 Hem Onc Scenery [address] [facility] [place] [address] 01/15/2024 7:05 AM EDT Laboratory Lab Mobile Phlebotomy [facility] [address] [place], [place] [address] Mvmg, Gml Mobile Home Draw [address] [facility] [place] [address] 01/22/2024 7:05 AM EDT Laboratory Lab Mobile Phlebotomy [facility] [address] [place] [address] Mvmg, Gml Mobile Home Draw [address] [facility] [place] [address] 01/29/2024 7:05 AM EDT Laboratory Lab Mobile Phlebotomy [facility] [address] [place], [place] [address] Mvmg, Gml Mobile Home Draw 2520 [facility] [place], [place] [address] 02/05/2024 7:00 AM EDT Laboratory Lab Mobile Phlebotomy [facility] [address] [place] [address] Mvmg, Gml Mobile Home Draw [address] [facility] [place] [address] 02/05/2024 8:40 AM EDT Office Visit Neurology [facility] 200 [facility] [place], [place] [address] Octavia Goins PA-C 200 [facility] [place] [address] 02/07/2024 8:00 AM EDT Office Visit Rheumatology [address] [place] [phone] Darnell Higgins MD [address] [place] [employer] [place], [place] [address] 02/12/2024 7:05 AM EDT Laboratory Lab Mobile Phlebotomy [facility] [address] [place] [address] Mvmg, Gml Mobile Home Draw [address] [place] [address] 02/19/2024 7:05 AM EDT Laboratory Lab Mobile Phlebotomy [facility] [address] [place] [address] Mvmg, Gml Mobile Home Draw [address] [place] [address] 02/26/2024 7:05 AM EDT Laboratory Lab Mobile Phlebotomy [facility] [address] [place] [address] Mvmg, Gml Mobile Home Draw [address] [place] [address] 03/04/2024 7:00 AM EDT Laboratory Lab Mobile Phlebotomy [facility] [address] [place] [address] Mvmg, Gml Mobile Home Draw [address] [place] [address] 03/05/2024 10:45 AM EDT Office Visit Hematology/Oncology [facility] 200 [place] [phone] Morgan Vásquez MD 200 [place] [address] 03/11/2024 7:05 AM EDT Laboratory Lab Mobile Phlebotomy [facility] [address] [place] [address] Mvmg, Gml Mobile Home Draw [address] [place] [address] 03/18/2024 7:05 AM EST Laboratory Lab Mobile Phlebotomy [facility] [address] [place] [address] Mvmg, Gml Mobile Home Draw [address] [place] [address] 03/25/2024 7:05 AM EST Laboratory Lab Mobile Phlebotomy [facility] [address] [place] [address] Mvmg, Gml Mobile Home Draw [address] [place] [address] 04/01/2024 7:00 AM EST Laboratory Lab Mobile Phlebotomy [facility] [address] [place] [address] Mvmg, Gml Mobile Home Draw [address] [place] [address] 04/08/2024 7:05 AM EST Laboratory Lab Mobile Phlebotomy [facility] [address] [place] [address] Mvmg, Gml Mobile Home Draw [address] [place] [address] 04/15/2024 7:05 AM EST Laboratory Lab Mobile Phlebotomy [facility] [address] [place] [address] Mvmg, Gml Mobile Home Draw [address] [place] [address] 04/22/2024 7:05 AM EST Laboratory Lab Mobile Phlebotomy [facility] [address] [place] [address] Mvmg, Gml Mobile Home Draw [address] [place] [address] 04/29/2024 7:05 AM EST Laboratory Lab Mobile Phlebotomy [facility] [address] [place] [address] Mvmg, Gml Mobile Home Draw [address] [place] [address] 05/05/2024 7:05 AM EST Laboratory Lab Mobile Phlebotomy [facility] [address] [place] [address] Mvmg, Gml Mobile Home Draw [address] [place] [address] 09/02/2024 8:20 AM EDT Office Visit Pulmonary Medicine, [facility] [address] [place] [address] Ish Caba MD [address] [place] [address] 05/03/2025 7:40 AM EST Office Visit Dermatology [address] [place] [address] Albina Romo PA-C [address] [place] [address] [place] [address] Health Maintenance Due Date Last Done Comments [...] this encounter Medical Devices Implanted Type Area Bakelite Molder Device Identifier Shelf Expiration Date Model / Serial / Lot Mesh Plug Xlarge [id number] - [id number] Implanted:Qty: 1 on 12/09/2020 by John Zaragoza MD at OR [facility] Left: Groin CR BARD : DAVOL 05/09/2023 [id number] / / [id number] documented as of this encounter Visit Diagnoses [...] Power of Attor coco? No Care Teams Acoustical Installer Relationship Specialty Start Date End Date Michael Collins MD [address] [place] [address] [place] [address] PCP - General Internal Medicine 03/01/14 documented as of this encounter
--- OUTSIDE RECORDS SUMMARY | 2024-03-26 16:26 | External Medical Summary | Summary of Care ---
Author Name Unknown Organization [facility] Address [address] [facility] [place] [address] Phone [phone] Care Team Providers Care Pattern Changer And Repairer Name Role Phone Michael Collins MD Primary Care Provi zehra Reason for Visit * Reason Comments Chemotherapy Cytoxan. * Episode Based Medications (Routine) - Authorized Specialty Diagnoses / Procedures Referred By Contac t Referred To Contact Diagnoses Multiple myeloma not having achieved remission (HCC) Procedures AL DARATUMUMAB, HYALURONIDASE AL INJ, CYCLOPHOSPHAMIDE, NOS Morgan Vásquez MD [address] [place] [address] Anc Hem/Onc Amena You DEPT CLOSED - 03/26/23 200 [facility] [place] [address] Referral ID Status Reason Start Date Expiration Date V isits Requested Visits Authorized [id number] Authorized 05/28/2022 05/12/2099 99 99 Encounter Details Date Type Department Care Team (Latest Contact Info) Description 12/05/2023 8:45 AM EDT Hem/Onc Treatment Hematology/Oncolog y Treatment, [place] [address] [place] [address] Kenyatta, Chair 2 Hem Onc Scenery 200 Amena Osman [place] [address] Multiple myeloma not having achieved remission (HCC)*; Encounter for antineoplastic chemotherapy Allergies No known active allergiesdocumented as of this encounter (statuses as of 12/19/2023) Medications Medication Sig Dispensed Refills Start Date End Date Status THEOPHYLLINE ER 450 MG PO FQ30Soizjsynjtm:2 tablet at bedtime Take by mouth. Indications: [...] at bedtime. PATIENT INFORMATION: Kris Galvin [address] [place] [address] [employer]: [employer] ORDER: Please start nocturnal oxygen via nasal [...] (electronically signed) Ish Caba MD Pulmonary Medicine, [address] [place] [address] [place] [facility] Medical License Number: [id number] 1 Each 09/21/2022 Active metFORMIN HCl ER [...] mRNA, LNP-s, No Pre serve, 2-Dose Series ([employer]) 01/17/2021,08/05/2020,07/08/2020 COVID-19, LNP-s, No Preserve , Bryant-sucrose, Ages 12+ ([employer]) 09/26/2021 DTaP Dipth/Tet/Acell Pertussis ([employer]an[employer]), Peds 02/23/2021,11/11/2020,09/09/2020 [...] 8:45 AM EDT Hem/Onc Treatment Hematology/Oncology Treatment, [place] 200 [place] [address] Kenyatta, Chair 9 Hem Onc Scenery 200 [facility] [place] [address] 12/25/2023 7:05 AM EDT Laboratory Lab [facility] [address] [place] [address] Mvmg, Gml Mobile Home Draw [address] [employer] [place] [address] 12/26/2023 9:00 AM EDT Hem/Onc Treatment Hematology/Oncology Treatment, [place] 200 [place] [address] Kenyatta, Chair 10 Hem Onc Scenery 200 [facility] [place] [address] 01/01/2024 7:05 AM EDT Laboratory [facility] [address] [place] [address] Mvmg, Gml Mobile Home Draw [address] [place] [address] 01/02/2024 8:30 AM EDT Hem/Onc Treatment Hematology/Oncology Treatment, [place] 200 [place] [address] Kenyatta, Chair 7 Hem Onc Scenery 200 [facility] [place] [address] 01/08/2024 7:00 AM EDT Laboratory [facility] [address] [place] [address] Mvmg, Gml Mobile Home Draw [address] [place] [address] 01/09/2024 8:30 AM EDT Hem/Onc Treatment Hematology/Oncology Treatment, [place] 200 [place] [address] Kenyatta, Chair 9 Hem Onc Scenery [address] [facility] [place] [address] 01/15/2024 7:05 AM EDT Laboratory Lab [facility] Phlebotomy [facility] [address] [place], [place] [address] Mvmg, Gml Mobile Home Draw 2520 [facility] [place] [address] 01/22/2024 7:05 AM EDT Laboratory Lab [facility] Phlebotomy [facility] [address] [place] [address] Mvmg, Gml Mobile Home Draw 2520 [facility] [place] [address] 01/29/2024 7:05 AM EDT Laboratory Lab Mobile Phlebotomy [facility] [address] [place], [place] [address] Mvmg, Gml Mobile Home Draw 2520 [facility] [place], [place] [address] 02/05/2024 7:00 AM EDT Laboratory Lab Mobile Phlebotomy [facility] [address] [place] [address] Mvmg, Gml Mobile Home Draw 2520 [facility] [place] [address] 02/05/2024 8:40 AM EDT Office Visit Neurology [facility] 200 [facility] [place], [place] [address] Octavia Goins PA-C 200 [facility] [place] [address] 02/07/2024 8:00 AM EDT Office Visit Rheumatology [address] [place] [phone] Darnell Higgins MD [address] [facility] [employer] [place], [place] [address] 02/12/2024 7:05 AM EDT Laboratory [facility] Ph[facility] [address] [place] [address] Mvmg, Gml Mobile Home Draw [address] [place] [address] 02/19/2024 7:05 AM EDT Laboratory Lab Mobile Phlebotomy [facility] [address] [place] [address] Mvmg, Gml Mobile Home Draw [address] [place] [address] 02/26/2024 7:05 AM EDT Laboratory Lab [facility] Phlebot[facility] [address] [place] [address] Mvmg, Gml Mobile Home Draw [address] [place] [address] 03/04/2024 7:00 AM EDT Laboratory Lab [facility] Ph[facility]bot[facility] [address] [place] [address] Mvmg, Gml Mobile Home Draw [address] [place] [address] 03/05/2024 10:45 AM EDT Office Visit Hematology/Oncology [facility] 200 [facility] [place] [phone] Morgan Vásquez MD 200 [facility] [place] [address] 03/11/2024 7:05 AM EDT Laboratory Lab [facility] Ph[facility] [address] [place] [address] Mvmg, Gml Mobile Home Draw [address] [place] [address] 03/18/2024 7:05 AM EST Laboratory [facility] Phlebot[facility] [address] [place] [address] Mvmg, Gml Mobile Home Draw [address] [place] [address] 03/25/2024 7:05 AM EST Laboratory Lab [facility] Phlebotomy [facility] [address] [place] [address] Mvmg, Gml Mobile Home Draw 2520 [facility] [place] [address] 04/01/2024 7:00 AM EST Laboratory Lab Mobile Phlebotomy [facility] 2520 [facility] [place] [address] Mvmg, Gml Mobile Home Draw 2520 [facility] [place] [address] 04/08/2024 7:05 AM EST Laboratory Lab Mobile Phlebotomy [facility] 2520 [place] [address] Mvmg, Gml Mobile Home Draw 2520 [place] [address] 04/15/2024 7:05 AM EST Laboratory Lab Mobile Phlebotomy [facility] 2520 [place] [address] Mvmg, Gml Mobile Home Draw 2520 [place] [address] 04/22/2024 7:05 AM EST Laboratory Lab [facility] Phlebotomy [facility] 2520 [place] [address] Mvmg, Gml Mobile Home Draw 2520 [facility] [place] [address] 04/29/2024 7:05 AM EST Laboratory Lab Mobile Phlebotomy [facility] 2520 [place] [address] Mvmg, Gml Mobile Home Draw 2520 [facility] [place] [address] 05/05/2024 7:05 AM EST Laboratory Lab Mobile Phlebotomy [facility] 2520 [facility] [place] [address] Mvmg, Gml Mobile Home Draw 2520 [facility] [place] [address] 09/02/2024 8:20 AM EDT Office Visit Pulmonary Medicine, [facility] [address] [place] [address] Ish Caba MD [address] [place] [address] 05/03/2025 7:40 AM EST Office Visit Dermatology [address] [place] [address] Albina Romo PA-C [address] [place] [address] [place] [address] Health Maintenance Due Date Last Done Comments [...] this encounter Medical Devices Implanted Type Area Engineering Lecturer Device Identifier Shelf Expiration Date Model / Serial / Lot Mesh Plug Xlarge [id number] - [id number] Implanted:Qty: 1 on 12/09/2020 by John Zaragoza MD at OR [facility] Left: Groin CR BARD : DAVOL 05/09/2023 [id number] / / [id number] documented as of this encounter Visit Diagnoses [...] Power of Attor coco? No Care Teams Pattern Changer And Repairer Relationship Specialty Start Date End Date Michael Collins MD [address] [place] [address] [place] [address] PCP - General Internal Medicine 03/01/14 documented as of this encounter
--- OUTSIDE RECORDS SUMMARY | 2024-03-26 16:26 | External Medical Summary | Summary of Care ---
Author Name Unknown Organization [facility] Address [address] [facility] [place] [address] Phone [phone] Care Team Providers Care Check Weigher Name Role Phone Michael Collins MD Primary Care Provi zehra Reason for Visit * Reason Comments Chemotherapy Cytoxan IV Therapy Hydration * Episode Based Medications (Routine) - Authorized Specialty Diagnoses / Procedures Referred By Contac t Referred To Contact Diagnoses Multiple myeloma not having achieved remission (HCC) Procedures [place] DARATUMUMAB, HYALURONIDASE [place] INJ, CYCLOPHOSPHAMIDE, NOS Morgan [facility] MD [facility] [address] [facility]c Amena You DE[facility] CLOSED - 03/26/23 [facility] [address] Referral ID Status Reason Start Date Expiration Date V isits Requested Visits Authorized [id number] Authorized 05/28/2022 05/12/2099 99 99 Encounter Details Date Type Department Care Team (Latest Contact Info) Description 11/28/2023 8:30 AM EDT Hem/Onc Treatment Hematology/Oncology Treatment, [place] [address] [place] [address] Kenyatta, Chair 9 Hem Onc [facility] 200 [facility] [place] [address] Multiple myeloma not having achieved remission (HCC)* Allergies No known active allergiesdocumented as of this encounter (statuses as of 12/19/2023) Medications Medication Sig Dispensed Refills Start Date End Date Status THEOPHYLLINE ER 450 MG PO PL86Eevowspuqon:2 tablet at bedtime Take by mouth. Indications: [...] at bedtime. PATIENT INFORMATION: Kris Galvin [address] [place] [address] [employer]: [employer] ORDER: Please start nocturnal oxygen via nasal [...] signed) Ish Caba MD Pulmonary Medicine, [address] [place] [address] [place] [facility] Medical License Number: [id number] 1 Each 09/21/2022 Active metFORMIN HCl ER [...] mRNA, LNP-s, No Pre serve, 2-Dose Series ([employer]) 01/17/2021,08/05/2020,07/08/2020 COVID-19, LNP-s, No Preserve , Bryant-sucrose, Ages 12+ ([employer]) 09/26/2021 DTaP Dipth/Tet/Acell Pertussis (Infanrix), Peds 02/23/2021,11/11/2020,09/09/2020 [...] EDT Laboratory Lab Mobile Phlebotomy [facility] 2520 [place] [address] Mvmg, Gml Mobile Home Draw 2520 [facility] [place] [address] 12/26/2023 9:00 AM EDT Hem[facility] 200 [place] [phone] Park, Chair 10 Hem Onc Scenery 200 [place] [address] 01/01/2024 7:05 AM EDT Laboratory Lab Mobile Phlebotomy [facility] 25[address] [place] [address] Mvmg, Gml Mobile Home Draw 2520 [facility] [place] [address] 01/02/2024 8:30 AM EDT Hem/Onc Treatment Hematology/Oncology Treatment, [place] 200 [place] [phone] Kenyatta, Chair 7 Hem Onc Scenery 200 [place] [address] 01/08/2024 7:00 AM EDT Laboratory Lab [facility] Phlebotomy [facility] [address] [place] [address] Mvmg, Gml Mobile Home Draw 2520 [place] [address] 01/09/2024 8:30 AM EDT Hem/Onc Treatment Hematology/Oncology Treatment, [place] 200 [place] [phone] Park, Chair 9 Hem Onc Scenery 200 [place] [address] 01/15/2024 7:05 AM EDT Laboratory Lab Mobile Phlebotomy [facility] [address] [employer] [facility] [place] [address] Mvmg, Gml Mobile Home Draw 2520 [place] [address] 01/22/2024 7:05 AM EDT Laboratory Lab Mobile Phlebotomy [facility] [address] [employer], [place] [address] Mvmg, Gml Mobile Home Draw [address] [place], [place] [address] 01/29/2024 7:05 AM EDT Laboratory Lab Mobile Phlebotomy [facility] [address] [place], [place] [address] Mvmg, Gml Mobile Home Draw [address] [place], [place] [address] 02/05/2024 7:00 AM EDT Laboratory Lab Mobile Phlebotomy [facility] [address] [employer], [place] [address] Mvmg, Gml Mobile Home Draw [address] [place], [place] [address] 02/05/2024 8:40 AM EDT Office Visit Neurology [facility] 200 [facility], [place] [address] Octavia Goins PA-C 200 [facility], [place] [address] 02/07/2024 8:00 AM EDT Office Visit Rheumatology [address] [place] [phone] Darnell Higgins MD [facility] [place], [place] [address] 02/12/2024 7:05 AM EDT Laboratory Lab Mobile Phlebotomy [facility] [address] [place], [place] [address] Mvmg, Gml Mobile Home Draw [address] [place], [place] [address] 02/19/2024 7:05 AM EDT Laboratory Lab Mobile Phlebotomy [facility] [address] [place], [place] [address] Mvmg, Gml Mobile Home Draw [address] [place], [place] [address] 02/26/2024 7:05 AM EDT Laboratory Lab Mobile Phlebotomy [facility] [address] [place] [address] Mvmg, Gml Mobile Home Draw 2520 [facility] [place] [address] 03/04/2024 7:00 AM EDT Laboratory Lab Mobile Phlebotomy [facility] [address] [place] [address] Mvmg, Gml Mobile Home Draw 2520 [facility] [place] [address] 03/05/2024 10:45 AM EDT Office Visit Hematology/Oncology Amena You [place] 200 [place] [phone] Morgan Vásquez MD 200 [place] [address] 03/11/2024 7:05 AM EDT Laboratory Lab Mobile Phlebotomy [facility] [address] [place] [address] Mvmg, Gml Mobile Home Draw 2520 [facility] [place] [address] 03/18/2024 7:05 AM EST Laboratory Lab Mobile Phlebotomy [facility] [address] [place] [address] Mvmg, Gml Mobile Home Draw 2520 Gen [facility] [place] [address] 03/25/2024 7:05 AM EST Laboratory Lab Mobile Phlebotomy [facility] [address] [place] [address] Mvmg, Gml Mobile Home Draw 2520 [facility] [place] [address] 04/01/2024 7:00 AM EST Laboratory Lab Mobile Phlebotomy [facility] [address] [place] [address] Mvmg, Gml Mobile Home Draw [address] [place] [address] 04/08/2024 7:05 AM EST Laboratory Lab Mobile Phlebotomy [facility] [address] [place] [address] Mvmg, Gml Mobile Home Draw 2520 [place] [address] 04/15/2024 7:05 AM EST Laboratory Lab Mobile Phlebotomy [facility] [address] [place] [address] Mvmg, Gml Mobile Home Draw [address] [place] [facility] [place] [address] 04/22/2024 7:05 AM EST Laboratory Lab Mobile Phlebotomy [facility] [address] [place] [address] Mvmg, Gml Mobile Home Draw [address] [place] [facility] [place] [address] 04/29/2024 7:05 AM EST Laboratory Lab Mobile Phlebotomy [facility] [address] [place] [address] Mvmg, Gml Mobile Home Draw [address] [facility] [place] [address] 05/05/2024 7:05 AM EST Laboratory Lab Mobile Phlebotomy [facility] [address] [place] [address] Mvmg, Gml Mobile Home Draw [address] [place] [address] 09/02/2024 8:20 AM EDT Office Visit Pulmonary Medicine, [facility] 132 [facility] [place] [address] Ish Caba MD [address] [place] [address] 05/03/2025 7:40 AM EST Office Visit Dermatology [address] [place] [address] Albina Romo PA-C [address] [place] [address] [place] [address] Health Maintenance Due Date Last Done Comments [...] this encounter Medical Devices Implanted Type Area Fur Glosser Device Identifier Shelf Expiration Date Model / Serial / Lot Mesh Plug Xlarge [id number] - [id number] Implanted:Qty: 1 on 12/09/2020 by John Zaragoza MD at OR [facility] Left: Groin CR BARD : DAVOL 05/09/2023 [id number] / / [id number] documented as of this encounter Visit Diagnoses [...] Power of Attor coco? No Care Teams Check Weigher Relationship Specialty Start Date End Date Michael Collins MD [address] [place] [address] [place] [address] PCP - General Internal Medicine 03/01/14 documented as of this encounter
--- OUTSIDE RECORDS SUMMARY | 2024-03-26 16:26 | External Medical Summary | Summary of Care ---
Author Name Unknown Organization [facility] Address [address] [facility] [place] [address] Phone [phone] Care Team Providers Care Horticulture Instructor Name Role Phone Michael Collins MD Primary Care Provi zehra Reason for Visit * Reason Comments Chemotherapy Cytoxan IV Therapy Hydration * Episode Based Medications (Routine) - Authorized Specialty Diagnoses / Procedures Referred By Contac t Referred To Contact Diagnoses Multiple myeloma not having achieved remission (HCC) Procedures [place] DARATUMUMAB, HYALURONIDASE [place] INJ, CYCLOPHOSPHAMIDE, NOS Morgan Vásquez MD 200 [facility] [place] [address] Anc Hem/Onc Amena You DEPT CLOSED - 03/26/23 200 [facility] [place] [address] Referral ID Status Reason Start Date Expiration Date V isits Requested Visits Authorized [id number] Authorized 05/28/2022 05/12/2099 99 99 Encounter Details Date Type Department Care Team (Latest Contact Info) Description 11/28/2023 8:30 AM EDT Hem/Onc Treatment Hematology/Oncology Treatment, [place] [address] [place] [address] Kenyatta, Chair 9 Hem Onc [facility] 200 [facility] [place] [address] Multiple myeloma not having achieved remission (HCC)* Allergies No known active allergiesdocumented as of this encounter (statuses as of 12/19/2023) Medications Medication Sig Dispensed Refills Start Date End Date Status THEOPHYLLINE ER 450 MG PO SF43Xtxtykkptvw:2 tablet at bedtime Take by mouth. Indications: [...] at bedtime. PATIENT INFORMATION: Kris Galvin [address] [place] [address] [employer]: [employer] ORDER: Please start nocturnal oxygen via nasal [...] (electronically signed) Ish Caba MD Pulmonary Medicine, [address] [place] [address] [place] [facility] Medical License Number: [id number] 1 Each 09/21/2022 Active metFORMIN HCl ER [...] mRNA, LNP-s, No Pre serve, 2-Dose Series ([employer]) 01/17/2021,08/05/2020,07/08/2020 COVID-19, LNP-s, No Preserve , Bryant-sucrose, Ages 12+ ([employer]) 09/26/2021 DTaP Dipth/Tet/Acell Pertussis (Infanrix), Peds 02/23/2021,11/11/2020,09/09/2020 [...] EDT Laboratory Lab Mobile Phlebotomy [facility] [address] [place] [address] Mvmg, Gml Mobile Home Draw 2520 [facility] [place] [address] 12/26/2023 9:00 AM EDT Hem[facility] 200 [place] [phone] Park, Chair 10 Hem Onc Scenery 200 [place] [address] 01/01/2024 7:05 AM EDT Laboratory Lab Mobile Phlebotomy [facility] [address] [place] [address] Mvmg, Gml Mobile Home Draw 2520 [facility] [place] [address] 01/02/2024 8:30 AM EDT Hem/Onc Treatment Hematology/Oncology Treatment, [place] 200 [place] [phone] Kenyatta, Chair 7 Hem Onc Scenery 200 [place] [address] 01/08/2024 7:00 AM EDT Laboratory Lab Mobile Phlebotomy [facility] [address] [place] [address] Mvmg, Gml Mobile Home Draw [address] [place] [address] 01/09/2024 8:30 AM EDT Hem/Onc Treatment Hematology/Oncology Treatment, [place] 200 [place] [phone] Park, Chair 9 Hem Onc Scenery 200 [place] [address] 01/15/2024 7:05 AM EDT Laboratory Lab Mobile Phlebotomy [facility] [address] [facility] [place] [address] Mvmg, Gml Mobile Home Draw [address] [place] [address] 01/22/2024 7:05 AM EDT Laboratory Lab Mobile Phlebotomy [facility] [address] [employer], [place] [address] Mvmg, Gml Mobile Home Draw [address] [place], [place] [address] 01/29/2024 7:05 AM EDT Laboratory Lab Mobile Phlebotomy [facility] [address] [place], [place] [address] Mvmg, Gml Mobile Home Draw [address] [place], [place] [address] 02/05/2024 7:00 AM EDT Laboratory Lab Mobile Phlebotomy [facility] [address] [employer], [place] [address] Mvmg, Gml Mobile Home Draw [address] [place], [place] [address] 02/05/2024 8:40 AM EDT Office Visit Neurology [facility] 200 [facility] [place], [place] [address] Octavia Goins PA-C 200 [facility] [place], [place] [address] 02/07/2024 8:00 AM EDT Office Visit Rheumatology [address] [place] [phone] Darnell Higgins MD [facility] [place], [place] [address] 02/12/2024 7:05 AM EDT Laboratory Lab Mobile Phlebotomy [facility] [address] [place], [place] [address] Mvmg, Gml Mobile Home Draw [address] [place], [place] [address] 02/19/2024 7:05 AM EDT Laboratory Lab Mobile Phlebotomy [facility] [address] [place], [place] [address] Mvmg, Gml Mobile Home Draw [address] [place], [place] [address] 02/26/2024 7:05 AM EDT Laboratory Lab Mobile Phlebotomy [facility] [address] [place] [address] Mvmg, Gml Mobile Home Draw 2520 [facility] [place] [address] 03/04/2024 7:00 AM EDT Laboratory Lab Mobile Phlebotomy [facility] [address] [place] [address] Mvmg, Gml Mobile Home Draw 2520 [facility] [place] [address] 03/05/2024 10:45 AM EDT Office Visit Hematology/Oncology Amena You [place] 200 [place] [address] Morgan Vásquez MD 200 [place] [address] 03/11/2024 7:05 AM EDT Laboratory Lab Mobile Phlebotomy [facility] [address] [place] [address] Mvmg, Gml Mobile Home Draw 2520 [facility] [place] [address] 03/18/2024 7:05 AM EST Laboratory Lab Mobile Phlebotomy [facility] [address] [place] [address] Mvmg, Gml Mobile Home Draw 2520 Gen [facility] [place] [address] 03/25/2024 7:05 AM EST Laboratory Lab Mobile Phlebotomy [facility] [address] [place] [address] Mvmg, Gml Mobile Home Draw 2520 [facility] [place] [address] 04/01/2024 7:00 AM EST Laboratory Lab Mobile Phlebotomy [facility] [address] [place] [address] Mvmg, Gml Mobile Home Draw [address] [place] [address] 04/08/2024 7:05 AM EST Laboratory Lab Mobile Phlebotomy [facility] [address] [place] [address] Mvmg, Gml Mobile Home Draw [address] [place] [address] 04/15/2024 7:05 AM EST Laboratory Lab Mobile Phlebotomy [facility] [address] [place] [address] Mvmg, Gml Mobile Home Draw [address] [place] [address] 04/22/2024 7:05 AM EST Laboratory Lab Mobile Phlebotomy [facility] [address] [place] [address] Mvmg, Gml Mobile Home Draw [address] [place] [address] 04/29/2024 7:05 AM EST Laboratory Lab Mobile Phlebotomy [facility] [address] [place] [address] Mvmg, Gml Mobile Home Draw [address] [place] [address] 05/05/2024 7:05 AM EST Laboratory Lab Mobile Phlebotomy [facility] [address] [place] [address] Mvmg, Gml Mobile Home Draw [address] [place] [employer] [place] [address] 09/02/2024 8:20 AM EDT Office Visit Pulmonary Medicine, [facility] 132 [facility] [place] [address] Ish Caba MD [address] [place] [address] 05/03/2025 7:40 AM EST Office Visit Dermatology [address] [place] [address] Albina Romo PA-C [address] [place] [address] [place] [address] Health Maintenance Due Date Last Done Comments [...] encounter Medical Devices Implanted Type Area Director Of Business Systems Device Identifier Shelf Expiration Date Model / Serial / Lot Mesh Plug Xlarge [id number] - [id number] Implanted:Qty: 1 on 12/09/2020 by John Zaragoza MD at OR [facility] Left: Groin CR BARD : DAVOL 05/09/2023 [id number] / / [id number] documented as of this encounter Visit Diagnoses [...] Power of Attor coco? No Care Teams Horticulture Instructor Relationship Specialty Start Date End Date Michael Collins MD [address] [place] [address] [place] [address] PCP - General Internal Medicine 03/01/14 documented as of this encounter
--- OUTSIDE RECORDS SUMMARY | 2024-03-26 16:26 | External Medical Summary | Summary of Care ---
Author Name Unknown Organization [facility] Address [address] [facility] [place] [address] Phone [phone] Care Team Providers Care Work Counselor Name Role Phone Michael Collins MD Primary Care Provi zehra Reason for Visit * Reason Comments Chemotherapy Cytoxan. * Episode Based Medications (Routine) - Authorized Specialty Diagnoses / Procedures Referred By Contac t Referred To Contact Diagnoses Multiple myeloma not having achieved remission (HCC) Procedures DE DARATUMUMAB, HYALURONIDASE DE INJ, CYCLOPHOSPHAMIDE, NOS Morgan Vásquez MD [address] [place] [address] [place] Hem/Onc Amena You DEPT CLOSED - 03/26/23 200 [facility] [place] [address] Referral ID Status Reason Start Date Expiration Date V isits Requested Visits Authorized [id number] Authorized 05/28/2022 05/12/2099 99 99 Encounter Details Date Type Department Care Team (Latest Contact Info) Description 11/21/2023 8:45 AM EDT Hem/Onc Treatment Hematology/Oncolog y Treatment, [place] [address] [place] [address] Kenyatta, Chair 2 Hem Onc Scenery [address] Amena [address] [place] [address] Multiple myeloma not having achieved remission (HCC)*; Encounter for antineoplastic chemotherapy Allergies No known active allergiesdocumented as of this encounter (statuses as of 12/19/2023) Medications Medication Sig Dispensed Refills Start Date End Date Status THEOPHYLLINE ER 450 MG PO [id number] tablet at bedtime Take by mouth. Indications: [...] at bedtime. PATIENT INFORMATION: Kris Galvin [address] [place] [address] [employer]: [employer] ORDER: Please start nocturnal oxygen via nasal [...] signed) Ish Caba MD Pulmonary Medicine, [address] [place] [address] [place] [facility] Medical License Number: [id number] 1 Each 09/21/2022 Active metFORMIN HCl ER [...] mRNA, LNP-s, No Pre serve, 2-Dose Series ([employer]) 01/17/2021,08/05/2020,07/08/2020 COVID-19, LNP-s, No Preserve , Bryant-sucrose, Ages 12+ ([employer]) 09/26/2021 DTaP Dipth/Tet/Acell Pertussis ([employer]), Peds 02/23/2021,11/11/2020,09/09/2020 [...] Sign Reading Time Taken Comments Blood Pressure 125/84 11/21/2023 8:35 AM EDT Pulse 76 11/21/2023 8:35 AM EDT Temperature 36 C (96.8 F) 11/21/2023 8:35 AM EDT Respiratory Rate 18 11/21/2023 8:35 AM EDT Oxygen Saturation 92% 11/21/2023 8:35 AM EDT Inhaled Oxygen Concentration - - Weight 130 kg (286 lb 9.6 oz) 11/21/2023 8:35 AM EDT Height - - Body Mass Index 38.87 10/11/2023 9:26 AM EDT documented in this [...] Nursing Notes * Nimisha Zhang RN - 11/21/2023 10:52 AM EDT Goals: Patient will remain free from injury. Possible barriers to meeting goals: Fall risk d/t ambulation with IV pole. Stability of the patient: Moderately stable - low risk of patient condition declining or worsening Summary regarding today's goals: Met: Patient remained free of injury. Patient tolerated infusion well. Discharged in stable condition. * Nimisha Zhang RN - 11/21/2023 8:55 AM EDT Chair 12. Patient arrived for cytoxan/hydration. Patient states he has felt increased fatigue after last treatment. Also states that if he stands up too quickly he gets dizzy. PIV established. Chemotherapy/Immunotherapy agents: CYTOXAN Consent for chemotherapy drug treatment complete, dated, and signed? yes, date - 12/29/21 Treatment lab parameters met? Yes Has treatment weight changed > than 10%? No Treatment preauthorized? Yes VITALS Filed Vitals: 11/21/23 0835 BP: 125/84 Pulse: 76 Resp: 18 Temp: 36 C (96.8 F) TempSrc: Tympanic SpO2: 92% Weight: 130 kg (286 lb 9.6 oz) Urine protein: N/A Patient [...] side effects during treatment. PRE-TREATMENT ASSESSMENT: NEURO: numbness or tingling: some in hands and legs- baseline and fatigue:see above note. CV/RESP: dizziness: see above note. GI/: denies symptoms OTHER: denies any additional symptoms PAIN: 0 Safety and Risk for Injury Patient will remain free from injury. Ensure appropriate safety devices are available. Provide and maintain safe environment. documented in this encounter Plan of Treatment Upcoming Encounters Date Type Department Care Team (Late st Contact Info) Description 12/19/2023 8:45 AM EDT Hem/Onc Treatment Hematology/Oncology Treatment, [place] [address] [place] [phone] Kenyatta, Chair 9 Hem Onc Scenery 200 [place] [address] 12/25/2023 7:05 AM EDT Laboratory Lab Mobile Phlebotomy [facility] [address] [place] [address] M[facility], Gml Mobile Home Draw [address] [place] [address] 12/26/2023 9:00 AM EDT [facility] 200 [place] [phone] Kenyatta, Chair 10 Hem Onc Scenery 200 [place] [address] 01/01/2024 7:05 AM EDT Laboratory Lab Mobile Phlebotomy [facility] [address] [facility] [place] [address] Mvmg, Gml Mobile Home Draw [address] [place] [address] 01/02/2024 8:30 AM EDT [facility] 200 [place] [phone] Kenyatta, Chair 7 Hem Onc Scenery 200 [place] [address] 01/08/2024 7:00 AM EDT Laboratory Lab Mobile Phlebotomy [facility] [address] [facility] [place] [address] Mvmg, Gml Mobile Home Draw [address] [place] [address] 01/09/2024 8:30 AM EDT Hem/Onc Treatment Hematology/Oncology Treatment, [place] 200 [place] [phone] Park, Chair 9 Hem Onc Scenery 200 [place] [address] 01/15/2024 7:05 AM EDT Laboratory Lab Mobile Phlebotomy [facility] [address] [place] [address] Mvmg, Gml Mobile Home Draw [address] [facility] [place] [address] 01/22/2024 7:05 AM EDT Laboratory Lab Mobile Phlebotomy [facility] [address] [place] [address] Mvmg, Gml Mobile Home Draw [address] [facility] [place] [address] 01/29/2024 7:05 AM EDT Laboratory Lab Mobile Phlebotomy [facility] [address] [place] [address] Mvmg, Gml Mobile Home Draw [address] [facility] [place] [address] 02/05/2024 7:00 AM EDT Laboratory Lab Mobile Phlebotomy [facility] [address] [place], [place] [address] Mvmg, Gml Mobile Home Draw [address] [facility] [place] [address] 02/05/2024 8:40 AM EDT Office Visit Neurology [facility] 200 [facility] [place], [place] [address] Octavia Goins PA-C 200 [facility] [place] [address] 02/07/2024 8:00 AM EDT Office Visit Rheumatology [address] [place] [phone] Darnell Higgins MD [address] [place] [address] 02/12/2024 7:05 AM EDT Laboratory Lab Mobile Phlebotomy [facility] [address] [place] [address] Mvmg, Gml Mobile Home Draw [address] [place] [address] 02/19/2024 7:05 AM EDT Laboratory Lab Mobile Phlebotomy [facility] [address] [place] [address] Mvmg, Gml Mobile Home Draw 25[address] [facility] [place], [place] [address] 02/26/2024 7:05 AM EDT Laboratory Lab Mobile Phlebotomy [facility] [address] [facility] [place] [address] Mvmg, Gml Mobile Home Draw [address] [facility] [place] [address] 03/04/2024 7:00 AM EDT Laboratory Lab Mobile Phlebotomy [facility] [address] [facility] [place], [place] [address] Mvmg, Gml Mobile Home Draw [address] [facility] [place], [place] [address] 03/05/2024 10:45 AM EDT Office Visit Hematology/Oncology [facility] [place] 200 [facility], [place] [phone] Morgan Vásquez MD 200 [place] [address] 03/11/2024 7:05 AM EDT Laboratory Lab Mobile Phlebotomy [facility] [address] [facility] [place], [place] [address] Mvmg, Gml Mobile Home Draw [address] [facility] [place] [address] 03/18/2024 7:05 AM EST Laboratory Lab Mobile Phlebotomy [facility] [address] [place] [address] Mvmg, Gml Mobile Home Draw [address] [facility] [place] [address] 03/25/2024 7:05 AM EST Laboratory Lab Mobile Phlebotomy [facility] [address] [facility] [place] [address] Mvmg, Gml Mobile Home Draw [address] [facility] [place] [address] 04/01/2024 7:00 AM EST Laboratory Lab Mobile Phlebotomy [facility] [address] [place] [address] Mvmg, Gml Mobile Home Draw [address] [facility] [place] [address] 04/08/2024 7:05 AM EST Laboratory Lab Mobile Phlebotomy [facility] [address] [place] [address] Mvmg, Gml Mobile Home Draw [address] [place] [address] 04/15/2024 7:05 AM EST Laboratory Lab Mobile Phlebotomy [facility] [address] [place] [address] Mvmg, Gml Mobile Home Draw [address] [place] [address] 04/22/2024 7:05 AM EST Laboratory Lab Mobile Phlebotomy [facility] [address] [place] [address] Mvmg, Gml Mobile Home Draw [address] [facility] [place] [address] 04/29/2024 7:05 AM EST Laboratory Lab Mobile Phlebotomy [facility] [address] [place] [address] Mvmg, Gml Mobile Home Draw [address] [facility] [place] [address] 05/05/2024 7:05 AM EST Laboratory Lab Mobile Phlebotomy [facility] [address] [place] [address] Mvmg, Gml Mobile Home Draw [address] [facility] [place] [address] 09/02/2024 8:20 AM EDT Office Visit Pulmonary Medicine, [facility] [address] [place] [address] Ish Caba MD [address] [place] [id number] 05/03/2025 7:40 AM EST Office Visit Dermatology [address] [place] [address] Albina Romo PA-C [address] [place] [address] [place] [address] Health Maintenance Due Date Last Done Comments [...] this encounter Medical Devices Implanted Type Area Entertainer Or Variety Artist Device Identifier Shelf Expiration Date Model / Serial / Lot Mesh Plug Xlarge [id number] - [id number] Implanted:Qty: 1 on 12/09/2020 by John Zaragoza MD at [facility] Left: Groin CR BARD : DAVOL 05/09/2023 [id number] / / [id number] documented as of this encounter Visit Diagnoses [...] not tolerated., ONCE, 1 dose, On Lilibeth 11/21/23 at 0930 Start Infusion 11/21/2023 9:15 AM EDT 740 mg 517.4 mL/hr dexAMETHasone (Decadron) tab 40 mg 40 mg, Oral, ONCE, On Lilibeth 11/21/23 at 0915, For 1 dose Given 11/21/2023 8:50 AM EDT 40 mg NSS infusion FOR HYDRATION Intravenous, at 500 mL/hr Administer over 2 Hours, ONCE, 1 dose, On Lilibeth 11/21/23 at 0915 Start Infusion 11/21/2023 8:47 AM EDT 1,000 mL 500 mL/hr NSS infusion FOR HYDRATION Intravenous, at 50 mL/hr Administer over 10 Hours, CONTINUOUS, Starting on Lilibeth 11/21/23 at 0915, Until Lilibeth 11/21/23 at 1454 Start Infusion 11/21/2023 8:46 AM EDT 500 mL 50 mL/hr ondansetron (Zofran) tab 8 mg 8 mg, Oral, ONCE, On Lilibeth 11/21/23 at 0915, For 1 dose Given 11/21/2023 8:51 AM EDT 8 mg documented in [...] Power of Attor coco? No Care Teams Work Counselor Relationship Specialty Start Date End Date Michael Collins MD [address] [place] [address] [place] [address] PCP - General Internal Medicine 03/01/14 documented as of this encounter
--- OUTSIDE RECORDS SUMMARY | 2024-03-26 16:26 | External Medical Summary | Summary of Care ---
Author Name Unknown Organization [facility] Address [address] [facility] [place] [address] Phone [phone] Care Team Providers Care Photographic Laboratory Supervisor Name Role Phone Michael Collins MD Primary Care Provi zehra Reason for Visit * Reason Comments Chemotherapy Cytoxan. * Episode Based Medications (Routine) - Authorized Specialty Diagnoses / Procedures Referred By Contac t Referred To Contact Diagnoses Multiple myeloma not having achieved remission (HCC) Procedures PA DARATUMUMAB, HYALURONIDASE PA INJ, CYCLOPHOSPHAMIDE, NOS Morgan Vásquez MD [address] [place] [address] Anc Hem/Onc Amena You DEPT CLOSED - 03/26/23 200 [facility] [place] [address] Referral ID Status Reason Start Date Expiration Date V isits Requested Visits Authorized [id number] Authorized 05/28/2022 05/12/2099 99 99 Encounter Details Date Type Department Care Team (Latest Contact Info) Description 11/21/2023 8:45 AM EDT Hem/Onc Treatment Hematology/Oncolog y Treatment, [place] [address] [place] [address] Kenyatta, Chair 2 Hem Onc Scenery 200 Amena Osman [place] [address] Multiple myeloma not having achieved remission (HCC)*; Encounter for antineoplastic chemotherapy Allergies No known active allergiesdocumented as of this encounter (statuses as of 12/19/2023) Medications Medication Sig Dispensed Refills Start Date End Date Status THEOPHYLLINE ER 450 MG PO [id number]:2 tablet at bedtime Take by mouth. Indications: [...] Take by mouth. Active Multiple Vitamins-Minerals ([facility]) CHEW Take by [...] at bedtime. PATIENT INFORMATION: Kris Galvin [address] [place] [address] [employer]: [employer] ORDER: Please start nocturnal oxygen via nasal [...] signed) Ish Caba MD Pulmonary Medicine, [address] [place] [address] [place] [facility] Medical License Number: [id number] 1 Each 09/21/2022 Active metFORMIN HCl ER [...] mRNA, LNP-s, No Pre serve, 2-Dose Series ([employer]) 01/17/2021,08/05/2020,07/08/2020 COVID-19, LNP-s, No Preserve , Bryant-sucrose, Ages 12+ ([employer]) 09/26/2021 DTaP Dipth/Tet/Acell Pertussis ([employer]), Peds 02/23/2021,11/11/2020,09/09/2020 [...] 8:45 AM EDT Hem/Onc Treatment Hematology/Oncology Treatment, [place] 200 [place] [phone] Kenyatta, Chair 9 Hem Onc Scenery 200 [place] [address] 12/25/2023 7:05 AM EDT Laboratory Lab Mobile Phlebotomy [facility] [address] [place] [address] Mvmg, Gml Mobile Home Draw [address] [facility] [place] [address] 12/26/2023 9:00 AM EDT [facility] 200 [place] [phone] Kenyatta, Chair 10 Hem Onc Scenery 200 [place] [address] 01/01/2024 7:05 AM EDT Laboratory Lab Mobile Phlebotomy [facility] [address] [place] [address] Mvmg, Gml Mobile Home Draw [address] [facility] [place] [address] 01/02/2024 8:30 AM EDT [facility] 200 [place] [phone] Kenyatta, Chair 7 Hem Onc Scenery 200 [place] [address] 01/08/2024 7:00 AM EDT Laboratory Lab Mobile Phlebotomy [facility] [address] [facility] [place] [address] Mvmg, Gml Mobile Home Draw [address] [facility] [place] [address] 01/09/2024 8:30 AM EDT Hem/Onc Treatment Hematology/Oncology Treatment, [place] 200 [place] [phone] Park, Chair 9 Hem Onc Scenery 200 [place] [address] 01/15/2024 7:05 AM EDT Laboratory Lab Mobile Phlebotomy [facility] [address] [place] [address] Mvmg, Gml Mobile Home Draw [address] [facility] [place] [address] 01/22/2024 7:05 AM EDT Laboratory Lab Mobile Phlebotomy [facility] [address] [place] [address] Mvmg, Gml Mobile Home Draw [address] [place] [address] 01/29/2024 7:05 AM EDT Laboratory Lab Mobile Phlebotomy [facility] [address] [place] [address] Mvmg, Gml Mobile Home Draw [address] [place] [address] 02/05/2024 7:00 AM EDT Laboratory Lab Mobile Phlebotomy [facility] [address] [place], [place] [address] Mvmg, Gml Mobile Home Draw [address] [place] [address] 02/05/2024 8:40 AM EDT Office Visit Neurology [facility] 200 [facility] [place], [place] [address] Octavia Goins PA-C 200 [facility] [place] [address] 02/07/2024 8:00 AM EDT Office Visit Rheumatology [address] [place] [phone] Darnell Higgins MD [address] [place] [address] 02/12/2024 7:05 AM EDT Laboratory Lab Mobile Phlebotomy [facility] [address] [place] [address] Mvmg, Gml Mobile Home Draw [address] [place] [address] 02/19/2024 7:05 AM EDT Laboratory Lab Mobile Phlebotomy [facility] [address] [employer] [address] Mvmg, Gml Mobile Home Draw [address] [facility] [place], [place] [address] 02/26/2024 7:05 AM EDT Laboratory Lab Mobile Phlebotomy [facility] [address] [place] [address] Mvmg, Gml Mobile Home Draw [address] [place] [address] 03/04/2024 7:00 AM EDT Laboratory Lab Mobile Phlebotomy [facility] [address] [facility] [place], [place] [address] Mvmg, Gml Mobile Home Draw [address] [facility] [place], [place] [address] 03/05/2024 10:45 AM EDT Office Visit Hematology/Oncology [facility] [place] 200 [facility], [place] [phone] Morgan Vásquez MD 200 [place] [address] 03/11/2024 7:05 AM EDT Laboratory Lab Mobile Phlebotomy [facility] [address] [facility] [place], [place] [address] Mvmg, Gml Mobile Home Draw [address] [place] [address] 03/18/2024 7:05 AM EST Laboratory Lab Mobile Phlebotomy [facility] [address] [place] [address] Mvmg, Gml Mobile Home Draw [address] [place] [address] 03/25/2024 7:05 AM EST Laboratory Lab Mobile Phlebotomy [facility] [address] [place] [address] Mvmg, Gml Mobile Home Draw [address] [place] [address] 04/01/2024 7:00 AM EST Laboratory Lab Mobile Phlebotomy [facility] [address] [employer] [address] Mvmg, Gml Mobile Home Draw [address] [place] [place] [address] 04/08/2024 7:05 AM EST Laboratory Lab Mobile Phlebotomy [facility] [address] [employer] [address] Mvmg, Gml Mobile Home Draw [address] [place] [address] 04/15/2024 7:05 AM EST Laboratory Lab Mobile Phlebotomy [facility] [address] [employer] [address] Mvmg, Gml Mobile Home Draw [address] [place] [address] 04/22/2024 7:05 AM EST Laboratory Lab Mobile Phlebotomy [facility] [address] [employer] [address] Mvmg, Gml Mobile Home Draw [address] [place] [address] 04/29/2024 7:05 AM EST Laboratory Lab Mobile Phlebotomy [facility] [address] [employer] [place] [address] Mvmg, Gml Mobile Home Draw [address] [place] [address] 05/05/2024 7:05 AM EST Laboratory Lab Mobile Phlebotomy [facility] [address] [employer] [place] [address] Mvmg, Gml Mobile Home Draw [address] [place] [address] 09/02/2024 8:20 AM EDT Office Visit Pulmonary Medicine, [facility] [address] [place] [address] Ish Caba MD [address] [place] [id number] 05/03/2025 7:40 AM EST Office Visit Dermatology [address] [place] [address] Albina Romo PA-C [address] [place] [address] [place] [address] Health Maintenance Due Date Last Done Comments [...] this encounter Medical Devices Implanted Type Area Lead Software Test Engineer Device Identifier Shelf Expiration Date Model / Serial / Lot Mesh Plug Xlarge [id number] - [id number] Implanted:Qty: 1 on 12/09/2020 by John Zaragoza MD at [facility] Left: Groin CR BARD : DAVOL 05/09/2023 [id number] / / [id number] documented as of this encounter Visit Diagnoses [...] Power of Attor coco? No Care Teams Photographic Laboratory Supervisor Relationship Specialty Start Date End Date Michael Collins MD [address] [place] [address] [place] [address] PCP - General Internal Medicine 03/01/14 documented as of this encounter
--- OUTSIDE RECORDS SUMMARY | 2024-03-26 16:27 | External Medical Summary | Summary of Care ---
Author Name Unknown Organization [facility] Address [address] [place] [address] Phone [phone] Care Team Providers Care Truck Shop Supervisor Name Role Phone Michael Collins MD Primary Care Provi zehra Reason for Visit * Reason Comments Chemotherapy Cytoxan. * Episode Based Medications (Routine) - Authorized Specialty Diagnoses / Procedures Referred By Contac t Referred To Contact Diagnoses Multiple myeloma not having achieved remission (HCC) Procedures WI DARATUMUMAB, HYALURONIDASE [place] INJ, CYCLOPHOSPHAMIDE, NOS Morgan Vásquez MD [address] [place] [address] Anc Hem/Onc Amena You DEPT CLOSED - 03/26/23 200 [facility] [place] [address] Referral ID Status Reason Start Date Expiration Date V isits Requested Visits Authorized [id number] Authorized 05/28/2022 05/12/2099 99 99 Encounter Details Date Type Department Care Team (Latest Contact Info) Description 12/05/2023 8:45 AM EDT Hem/Onc Treatment Hematology/Oncolog y Treatment, [place] [address] [place] [address] Kenyatta, Chair 2 Hem Onc Scenery [address] Amena Osman [place] [address] Multiple myeloma not having achieved remission (HCC)*; Encounter for antineoplastic chemotherapy Allergies No known active allergiesdocumented as of this encounter (statuses as of 12/19/2023) Medications Medication Sig Dispensed Refills Start Date End Date Status THEOPHYLLINE ER 450 MG PO LJ89Hrcyfcqhecg:2 tablet at bedtime Take by mouth. Indications: [...] at bedtime. PATIENT INFORMATION: Kris Galvin [address] [place] [address] [employer]: [email or web address] ORDER: Please start nocturnal oxygen via nasal [...] signed) Ish Caba MD Pulmonary Medicine, [address] [place] [address] [place] [facility] Medical License Number: [id number] 1 Each 09/21/2022 Active metFORMIN HCl ER [...] mRNA, LNP-s, No Pre serve, 2-Dose Series (Kodkod) 01/17/2021,08/05/2020,07/08/2020 COVID-19, LNP-s, No Preserve , Bryant-sucrose, Ages 12+ (Kodkod) 09/26/2021 DTaP Dipth/Tet/Acell Pertussis (Infanrix), Peds 02/23/2021,11/11/2020,09/09/2020 [...] 8:45 AM EDT Hem/Onc Treatment Hematology/Oncology Treatment, [place] 200 [place] [phone] Kenyatta, Chair 9 Hem Onc Scenery 200 [facility] [address] 12/25/2023 7:05 AM EDT Laboratory Lab Mobile Phlebotomy [facility] [address] [place] [address] Mvmg, Gml Mobile Home Draw [address] [place] [place] [address] 12/26/2023 9:00 AM EDT Hem/Onc Treatment Hematology/Oncology Treatment, [place] 200 [place] [address] Kenyatta, Chair 10 Hem Onc Scenery 200 [facility] [address] 01/01/2024 7:05 AM EDT Laboratory Lab [facility] Phlebot[facility] [address] [place] [address] Mvmg, Gml [facility] Draw [address] [place] [address] 01/02/2024 8:30 AM EDT Hem/Onc Treatment Hematology/Oncology Treatment, [place] 200 [place] [phone] Kenyatta, Chair 7 Hem Onc Scenery 200 [facility] [address] 01/08/2024 7:00 AM EDT Laboratory Lab [facility] Ph[facility]bot[facility] [address] [place] [address] Mvmg, Gml [facility] Draw [address] [place] [address] 01/09/2024 8:30 AM EDT Hem/Onc Treatment Hematology/Oncology Treatment, [place] 200 [place] [address] Kenyatta, Chair 9 Hem Onc Scenery [address] [facility] [place] [address] 01/15/2024 7:05 AM EDT Laboratory Lab Mobile Phlebotomy [facility] [address] [place], [place] [address] Mvmg, Gml [facility] Home Draw [address] [place] [address] 01/22/2024 7:05 AM EDT Laboratory Lab Mobile Phlebotomy [facility] [address] [place] [address] Mvmg, Gml Mobile Home Draw [address] [place] [address] 01/29/2024 7:05 AM EDT Laboratory Lab Mobile Phlebotomy [facility] [address] [place], [place] [address] Mvmg, Gml Mobile [facility] Draw [address] [facility] [place], [place] [address] 02/05/2024 7:00 AM EDT Laboratory Lab Mobile Phlebotomy [facility] [address] [place] [address] Mvmg, Gml [facility] Draw [address] [place] [address] 02/05/2024 8:40 AM EDT Office Visit Neurology [facility] 200 [facility] [place], [place] [address] Octavia Goins PA-C 200 [facility] [address] 02/07/2024 8:00 AM EDT Office Visit Rheumatology [address] [place] [phone] Darnell Higgins MD [address] [employer] [place], [place] [address] 02/12/2024 7:05 AM EDT Laboratory Lab Mobile Phlebotomy [facility] [address] [place] [address] Mvmg, Gml [facility] Draw [address] [place] [address] 02/19/2024 7:05 AM EDT Laboratory Lab Mobile Phlebotomy [facility] [address] [place] [address] Mvmg, Gml [facility] Draw [address] [place] [address] 02/26/2024 7:05 AM EDT Laboratory Lab Mobile Phlebotomy [facility] [address] [place] [address] Mvmg, Gml [facility] Draw [address] [place] [address] 03/04/2024 7:00 AM EDT Laboratory Lab Mobile Phlebotomy [facility] [address] [place] [address] Mvmg, Gml [facility] Draw [address] [place] [address] 03/05/2024 10:45 AM EDT Office Visit Hematology/Oncology [facility] 200 [facility] [place] [phone] Morgan Vásquez MD 200 [facility] [place] [address] 03/11/2024 7:05 AM EDT Laboratory Lab [facility] Ph[facility]bot[facility] [address] [place] [address] Mvmg, Gml [facility] Draw [address] [place] [address] 03/18/2024 7:05 AM EST Laboratory Lab [facility] Phlebot[facility] [address] [place] [address] Mvmg, Gml [facility] [address] [place] [address] 03/25/2024 7:05 AM EST Laboratory Lab Mobile Phlebotomy [facility] [address] [place] [address] Mvmg, Gml Mobile [facility] Draw [address]20 [place] [address] 04/01/2024 7:00 AM EST Laboratory Lab Mobile Phlebotomy [facility] [address] [place] [address] Mvmg, Gml [facility] Draw [address] [place] [address] 04/08/2024 7:05 AM EST Laboratory Lab Mobile Phlebotomy [facility] [address] [place] [address] Mvmg, Gml [facility] Draw [address] [place] [address] 04/15/2024 7:05 AM EST Laboratory Lab Mobile Phlebotomy [facility] [address] [place] [address] Mvmg, Gml [facility] Draw [address] [place] [address] 04/22/2024 7:05 AM EST Laboratory Lab Mobile Phlebotomy [facility] [address] [place] [address] Mvmg, Gml [facility] Draw [address] [place] [address] 04/29/2024 7:05 AM EST Laboratory Lab Mobile Phlebotomy [facility] [address] [place] [address] Mvmg, Gml Mobile [facility] Draw [address] [place] [address] 05/05/2024 7:05 AM EST Laboratory Lab Mobile Phlebotomy [facility] [address] [place] [address] Mvmg, Gml Mobile [facility] Draw [address] [place] [address] 09/02/2024 8:20 AM EDT Office Visit Pulmonary Medicine, [facility] [address] [place] [address] Ish Caba MD [address] [place] [address] 05/03/2025 7:40 AM EST Office Visit Dermatology [address] [place] [address] Albina Romo PA-C [address] [place] [address] [place] [address] Health Maintenance Due Date Last Done Comments [...] encounter Medical Devices Implanted Type Area Director University Device Identifier Shelf Expiration Date Model / Serial / Lot Mesh Plug Xlarge [id number] - [id number] Implanted:Qty: 1 on 12/09/2020 by John Zaragoza MD at OR [facility] Left: Groin CR BARD : DAVOL 05/09/2023 [id number] / / [id number] documented as of this encounter Visit Diagnoses [...] 40 mg 40 mg, Oral, ONCE, On Liilbeth 12/05/23 at 0915, For 1 dose Given [...] Power of Attor coco? No Care Teams Truck Shop Supervisor Relationship Specialty Start Date End Date Michael Collins MD [address] [place] [address] [place] [address] PCP - General Internal Medicine 03/01/14 documented as of this encounter
--- OUTSIDE RECORDS SUMMARY | 2024-03-26 16:27 | External Medical Summary | Summary of Care ---
Author Name Unknown Organization [facility] Address [address] [facility] [place] [address] Phone [phone] Care Team Providers Care Steward/Stewardess Banquet Name Role Phone Michael Collins MD Primary Care Provi zehra Reason for Visit * Reason Comments Chemotherapy Cytoxan IV Therapy Hydration * Episode Based Medications (Routine) - Authorized Specialty Diagnoses / Procedures Referred By Contac t Referred To Contact Diagnoses Multiple myeloma not having achieved remission (HCC) Procedures OR DARATUMUMAB, HYALURONIDASE OR INJ, CYCLOPHOSPHAMIDE, NOS Morgan Vásquez MD 200 [facility] [place] [address] Anc Hem/Onc Amena You DEPT CLOSED - 03/26/23 200 [facility] [place] [address] Referral ID Status Reason Start Date Expiration Date V isits Requested Visits Authorized [id number] Authorized 05/28/2022 05/12/2099 99 99 Encounter Details Date Type Department Care Team (Latest Contact Info) Description 11/28/2023 8:30 AM EDT Hem/Onc Treatment Hematology/Oncology Treatment, [place] [address] [place] [address] Kenyatta, Chair 9 Hem Onc [facility] 200 [facility] [place] [address] Multiple myeloma not having achieved remission (HCC)* Allergies No known active allergiesdocumented as of this encounter (statuses as of 12/18/2023) Medications Medication Sig Dispensed Refills Start Date End Date Status THEOPHYLLINE ER 450 MG PO HE52Orpelvyotul:2 tablet at bedtime Take by mouth. Indications: [...] at bedtime. PATIENT INFORMATION: Kris Galvin [address] [place] [address] [employer]: [employer] ORDER: Please start nocturnal oxygen via nasal [...] (electronically signed) Ish Caba MD Pulmonary Medicine, [address] [place] [address] [place] [facility] Medical License Number: [id number] 1 Each 09/21/2022 Active metFORMIN HCl ER [...] as of this encounter (statuses as of 12/18/2023) Active Problems Problem Noted Date Diagnosed Date [...] as of this encounter (statuses as of 12/18/2023) Resolved Problems Problem Noted Date Diagnosed Date Resolved Date Asthma in remission 08/28/2022 08/29/19 Asthma, mild persistent 08/28/202208/11 Asthma, severe persistent 08/28/2022 Stem cell transplant candidate 08/17/2019 09/02/2019 documented as of this encounter (statuses as of 12/18/2023) Immunizations Name Administration Dates Next Due COVID-19 mRNA, LNP-s, No Pre serve, 2-Dose Series (Meetyl) 01/17/2021,08/05/2020,07/08/2020 COVID-19, LNP-s, No Preserve , Bryant-sucrose, Ages 12+ (Meetyl) 09/26/2021 DTaP Dipth/Tet/Acell Pertussis (Infanrix), Peds 02/23/2021,11/11/2020,09/09/2020 [...] 8:45 AM EDT Hem/Onc Treatment Hematology/Oncology Treatment, [place] 200 [place] [phone] Kenyatta, Chair 9 Hem Onc Scenery 200 [place] [address] 12/25/2023 7:05 AM EDT Laboratory Lab Mobile Phlebotomy [facility] [address] [place] [address] Mvmg, Gml Mobile Home Draw [address] [place] [address] 12/26/2023 9:00 AM EDT Hem/Onc Treatment Hematology/Oncology Treatment, [place] 200 [facility] [address] Kenyatta, Chair 10 Hem Onc Scenery 200 [place] [address] 01/01/2024 7:05 AM EDT Laboratory Lab Mobile Phlebotomy [facility] [address] [place] [address] Mvmg, Gml Mobile Home Draw 2520 [facility] [place] [address] 01/02/2024 8:30 AM EDT Hem/Onc Treatment Hematology/Oncology Treatment, [place] 200 [facility] [place] [address] Kenyatta, Chair 7 Hem Onc Scenery 200 [facility] [place] [address] 01/08/2024 7:00 AM EDT Laboratory Lab Mobile Phlebotomy [facility] [address] [place] [address] Mvmg, Gml [facility] Draw [address] [place] [address] 01/09/2024 8:30 AM EDT Hem/Onc Treatment Hematology/Oncology Treatment, [place] 200 [facility] [place] [address] Kenyatta, Chair 9 Hem Onc Scenery 200 [place] [address] 01/15/2024 7:05 AM EDT Laboratory Lab Mobile Phlebotomy [facility] [address] [employer] [place] [address] Mvmg, Gml Mobile Home Draw [address] [place] [address] 01/22/2024 7:05 AM EDT Laboratory Lab Mobile Phlebotomy [facility] [address] [place] [address] Mvmg, Gml [facility] Draw [address] [facility] [place] [address] 01/29/2024 7:05 AM EDT Laboratory Lab Mobile Phlebotomy [facility] [address] [place] [address] Mvmg, Gml [facility] Draw [address] [facility] [place] [address] 02/05/2024 7:00 AM EDT Laboratory Lab Mobile Phlebotomy [facility] [address] [place], [place] [address] Mvmg, Gml Mobile Home Draw [address] [facility] [place] [address] 02/05/2024 8:40 AM EDT Office Visit Neurology [facility] 200 [facility] [place] [address] Octavia Goins PA-C 200 [facility] [place] [address] 02/07/2024 8:00 AM EDT Office Visit Rheumatology [address] [place] [phone] Darnell Higgins MD [facility] [place] [address] 02/12/2024 7:05 AM EDT Laboratory Lab Mobile Phlebotomy [facility] [address] [place] [address] Mvmg, Gml [facility] Draw [address] [place] [address] 02/19/2024 7:05 AM EDT Laboratory Lab Mobile Phlebotomy [facility] [address] [place] [address] Mvmg, Gml Mobile Home Draw 25[address] [facility] [place] [address] 02/26/2024 7:05 AM EDT Laboratory Lab Mobile Phlebotomy [facility] 25[address] [facility] [place], [place] [address] Mvmg, Gml Mobile Home Draw [address] [facility] [place] [address] 03/04/2024 7:00 AM EDT Laboratory Lab Mobile Phlebotomy [facility] 25[address] [facility] [place], [place] [address] Mvmg, Gml Mobile Home Draw 2520 [facility] [place], [place] [address] 03/05/2024 10:45 AM EDT Office Visit Hematology/Oncology [facility] [place] 200 [place] [phone] Morgan Vásquez MD 200 [place] [address] 03/11/2024 7:05 AM EDT Laboratory Lab Mobile Phlebotomy [facility] [address] [facility] [place] [address] Mvmg, Gml Mobile Home Draw 25[address] [facility] [place], [place] [address] 03/18/2024 7:05 AM EST Laboratory Lab Mobile Phlebotomy [facility] [address] [facility] [place] [address] Mvmg, Gml Mobile Home Draw [address] [facility] [place] [address] 03/25/2024 7:05 AM EST Laboratory Lab Mobile Phlebotomy [facility] [address] [place] [address] Mvmg, Gml Mobile Home Draw [address] [facility] [place] [address] 04/01/2024 7:00 AM EST Laboratory Lab Mobile Phlebotomy [facility] [address] [place] [address] Mvmg, Gml Mobile Home Draw [address] [place] [address] 04/08/2024 7:05 AM EST Laboratory Lab Mobile Phlebotomy [facility] [address] [place] [address] Mvmg, Gml Mobile Home Draw [address] [place] [address] 04/15/2024 7:05 AM EST Laboratory Lab Mobile Phlebotomy [facility] [address] [place] [address] Mvmg, Gml Mobile Home Draw [address] [place] [address] 04/22/2024 7:05 AM EST Laboratory Lab Mobile Phlebotomy [facility] [address] [place] [address] Mvmg, Gml Mobile Home Draw [address] [place] [address] 04/29/2024 7:05 AM EST Laboratory Lab Mobile Phlebotomy [facility] [address] [place] [address] Mvmg, Gml Mobile Home Draw [address] [place] [address] 05/05/2024 7:05 AM EST Laboratory Lab Mobile Phlebotomy [facility] [address] [place] [address] Mvmg, Gml Mobile Home Draw [address] [place] [address] 09/02/2024 8:20 AM EDT Office Visit Pulmonary Medicine, [facility] [address] [place] [address] Ish Caba MD [address] [place] [address] 05/03/2025 7:40 AM EST Office Visit Dermatology [address] [place] [address] Albina Romo PA-C [address] [place] [address] [place] [address] Health Maintenance Due Date Last Done Comments Depression Screening 1976 Albumin/Creatinine Ratio 1982 Cologuard 2009 Fecal Occult Blood Test 2009 Sigmoidoscopy 2009 COVID-19 Vaccine (2022-24 season) 2023 01/28/2022, 09/26/2021, 01/17/2021, Additional history exists Colonoscopy 03/03/2023 03/03/2018, 03/03/2018 Colorectal Cancer Screening 03/03/2023 Lipid Panel 11/18/2024 11/19/2019, 07/11, 07/29/2009 GFR 12/10/2024 12/11/2023, 11/11, 11/27/2023, Additional history exists Diabetes Screening 12/10/2026 12/11/2023, 0 12/04/2023, 11/27/2023, Additional history exists DTaP,Tdap,and Td Vaccines (4 [...] encounter Medical Devices Implanted Type Area Sales Development Associate Device Identifier Shelf Expiration Date Model / Serial / Lot Mesh Plug Xlarge [id number] - [id number] Implanted:Qty: 1 on 12/09/2020 by John Zaragoza MD at OR [facility] Left: Groin CR BARD : DAVOL 05/09/2023 [id number] / / [id number] documented as of this encounter Visit Diagnoses [...] Power of Attor coco? No Care Teams Steward/Stewardess Banquet Relationship Specialty Start Date End Date Michael Collins MD [address] [place] [address] [place] [address] PCP - General Internal Medicine 03/01/14 documented as of this encounter
--- OUTSIDE RECORDS SUMMARY | 2024-03-26 16:27 | External Medical Summary | Summary of Care ---
Author Name Unknown Organization [facility] Address [address] [place] [address] Phone [phone] Care Team Providers Care Pipe Caulker Name Role Phone Michael Collins MD Primary Care Provi zehra Reason for Visit * Reason Comments Chemotherapy Cytoxan/Darzalex Fas pro * Episode Based Medications (Routine) - Authorized Specialty Diagnoses / Procedures Referred By Contac t Referred To Contact Diagnoses Multiple myeloma not having achieved remission (HCC) Procedures [place] DARATUMUMAB, HYALURONIDASE [place] INJ, CYCLOPHOSPHAMIDE, NOS Morgan Vásquez MD [address] [place] [address] Anc Hem/Onc Amena You DEPT CLOSED - 03/26/23 200 [facility] [place] [address] Referral ID Status Reason Start Date Expiration Date V isits Requested Visits Authorized [id number] Authorized 05/28/2022 05/12/2099 99 99 Encounter Details Date Type Department Care Team (Latest Contact Info) Description 11/15/2023 8:30 AM EDT Hem/Onc Treatment Hematology/Oncolog y Treatment, [place] [address] [place] [address] Kenyatta, Chair 11 Hem Onc Scenery 200 Amena Osman [place] [address] Multiple myeloma not having achieved remission (HCC)*; Encounter for antineoplastic chemotherapy Allergies No known active allergiesdocumented as of this encounter (statuses as of 12/19/2023) Medications Medication Sig Dispensed Refills Start Date End Date Status THEOPHYLLINE ER 450 MG PO [id number]:2 tablet at bedtime Take by mouth. Indications: [...] nostril at bedtime. PATIENT INFORMATION: Kris Galvin [address] [place] [address] [employer]: [email or web address] ORDER: Please start nocturnal oxygen via nasal [...] (electronically signed) Ish Caba MD Pulmonary Medicine, [address] [place] [address] [place] [facility] Medical License Number: [id number] 1 Each 09/21/2022 Active metFORMIN HCl ER [...] mRNA, LNP-s, No Pre serve, 2-Dose Series ([employer]) 01/17/2021,08/05/2020,07/08/2020 COVID-19, LNP-s, No Preserve , Bryant-sucrose, Ages 12+ ([employer]) 09/26/2021 DTaP Dipth/Tet/Acell Pertussis ([employer]an[employer]), Peds 02/23/2021,11/11/2020,09/09/2020 [...] Sign Reading Time Taken Comments Blood Pressure 126/77 11/15/2023 9:54 AM EDT Pulse 85 11/15/2023 9:54 AM EDT Temperature 36.6 C (97.9 F) 11/15/2023 9:54 AM ED T Respiratory Rate 18 11/15/2023 9:54 AM EDT Oxygen Saturation 95% 11/15/2023 9:54 AM EDT Inhaled Oxygen Concentration - - Weight 132.3 kg (291 lb 11.2 oz) 11/15/2023 9:54 AM EDT Height - - Body Mass Index 39.56 10/11/2023 9:26 AM EDT documented in this [...] Nursing Notes * Brittanie Riggs RN - 11/15/2023 4:49 PM EDT Pt completed treatment without issues. IV removed. Darzalex Faspro administered per order; pt tolerated well. Goals: Pt will remain free from injury. Possible barriers to meeting goals: ambulation with IV pole Stability of the patient: Moderately stable - low risk of patient condition declining or worsening Summary regarding today's goals: Met: Pt Pt remained free from injury during treatment today. Discharged in stable condition. * Brittanie Riggs RN - 11/15/2023 9:55 AM EDT Chair 1 Chemotherapy/Immunotherapy agents: Darzalex Faspro/Cytoxan Consent for chemotherapy drug treatment complete, dated, and signed? yes, date - 12/29/20 Treatment lab parameters met? Yes Has treatment weight changed > than 10%? No Treatment preauthorized? Yes VITALS Filed Vitals: 11/15/23 0954 BP: 126/77 Pulse: 85 Resp: 18 Temp: 36.6 C (97.9 F) SpO2: 95% Weight: 132.3 kg (291 lb 11.2 oz) Urine protein: N/A Patient education completed for treatment? Yes Blood transfusion consent signed and complete? NA Return appointment scheduled? Yes Patient had provider visit today? No - If no provider visit must complete Pretreatment Assessment PRE-TREATMENT ASSESSMENT: NEURO: fatigue:stable CV/RESP: denies symptoms GI/: nausea: advised pt to alternate zofran/compazine ; denies vomiting OTHER: denies any additional symptoms PAIN: 1-2 pain location : stable, generalized pain, ongoing PIV established; NSS infusing. Safety and Risk [...] symptoms or adverse side effects during treatment. documented in this encounter Plan of Treatment Upcoming Encounters Date Type Department Care Team (Late st Contact Info) Description 12/19/2023 8:45 AM EDT Hem/Onc Treatment Hematology/Oncology Treatment, [place] 200 [place] [phone] Park, Chair 9 Hem Onc Scenery 200 [facility] [place] [address] 12/25/2023 7:05 AM EDT Laboratory Lab Mobile Phlebotomy [facility] [address] [place] [address] Mvmg, Gml Mobile Home Draw [address] [place] [address] 12/26/2023 9:00 AM EDT Hem/Onc Treatment Hematology/Oncology Treatment, [place] [address] [place] [phone] Kenyatta, Chair 10 Hem Onc Scenery 200 [facility] [place] [address] 01/01/2024 7:05 AM EDT Laboratory Lab Mobile Phlebotomy [facility] [address] [place] [address] Mvmg, Gml Mobile Home Draw [address] [place] [address] 01/02/2024 8:30 AM EDT Hem/Onc Treatment Hematology/Oncology Treatment, [place] 200 [place] [phone] Kenyatta, Chair 7 Hem Onc Scenery 200 [place] [address] 01/08/2024 7:00 AM EDT Laboratory Lab Mobile Phlebotomy [facility] [address] [place] [address] Mvmg, Gml Mobile Home Draw [address] [place] [address] 01/09/2024 8:30 AM EDT Hem/Onc Treatment Hematology/Oncology Treatment, [place] [address] [place] [phone] Park, Chair 9 Hem Onc Scenery 200 [facility] [place] [address] 01/15/2024 7:05 AM EDT Laboratory Lab Mobile Phlebotomy [facility] [address] [place] [address] Mvmg, Gml Mobile Home Draw [address] [place] [address] 01/22/2024 7:05 AM EDT Laboratory Lab Mobile Phlebotomy [facility] [address] [place] [address] Mvmg, Gml Mobile Home Draw [address] [place] [address] 01/29/2024 7:05 AM EDT Laboratory Lab Mobile Phlebotomy [facility] [address] [place] [address] Mvmg, Gml Mobile Home Draw [address] [place] [address] 02/05/2024 7:00 AM EDT Laboratory Lab Mobile Phlebotomy [facility] [address] [facility] [place], [place] [address] Mvmg, Gml Mobile Home Draw [address] [place] [address] 02/05/2024 8:40 AM EDT Office Visit Neurology [facility] 200 [facility], [place] [address] Octavia Goins PA-C 200 [facility] [place] [address] 02/07/2024 8:00 AM EDT Office Visit Rheumatology [address] [place] [phone] Darnell Higgins MD [address] [place] [address] 02/12/2024 7:05 AM EDT Laboratory Lab Mobile Phlebotomy [facility] [address] [place] [address] Mvmg, Gml Mobile Home Draw [address] [place] [address] 02/19/2024 7:05 AM EDT Laboratory Lab Mobile Phlebotomy [facility] [address] [place] [address] Mvmg, Gml Mobile Home Draw [address] [place] [address] 02/26/2024 7:05 AM EDT Laboratory Lab Mobile Phlebotomy [facility] [address] [place] [address] Mvmg, Gml Mobile Home Draw [address] [place] [address] 03/04/2024 7:00 AM EDT Laboratory Lab Mobile Phlebotomy [facility] [address] [place] [address] Mvmg, Gml Mobile Home Draw [address] [place] [address] 03/05/2024 10:45 AM EDT Office Visit Hematology/Oncology [facility] 200 [place] [address] Morgan Vásquez MD 200 [facility] [address] 03/11/2024 7:05 AM EDT Laboratory Lab Mobile Phlebotomy [facility] [address] [place] [address] Mvmg, Gml Mobile Home Draw [address] [place] [address] 03/18/2024 7:05 AM EST Laboratory Lab Mobile Phlebotomy [facility] [address] [place] [address] Mvmg, Gml Mobile Home Draw [address] [place] [address] 03/25/2024 7:05 AM EST Laboratory Lab Mobile Phlebotomy [facility] [address] [place] [address] Mvmg, Gml Mobile Home Draw [address] [place] [address] 04/01/2024 7:00 AM EST Laboratory Lab Mobile Phlebotomy [facility] [address] [place] [address] Mvmg, Gml Mobile Home Draw [address] [place] [address] 04/08/2024 7:05 AM EST Laboratory Lab Mobile Phlebotomy M[facility] [address] [place] [address] Mvmg, Gml Mobile Home Draw [address] [place] [address] 04/15/2024 7:05 AM EST Laboratory Lab Mobile Phlebotomy M[facility] [address] [place] [address] Mvmg, Gml Mobile Home Draw [address] [place] [address] 04/22/2024 7:05 AM EST Laboratory Lab Mobile Phlebotomy [facility] [address] [place] [address] Mvmg, Gml Mobile Home Draw [address] [place] [address] 04/29/2024 7:05 AM EST Laboratory Lab Mobile Phlebotomy [facility] [address] [place] [address] Mvmg, Gml Mobile Home Draw [address] [place] [address] 05/05/2024 7:05 AM EST Laboratory Lab Mobile Phlebotomy [facility] [address] [place] [address] Mvmg, Gml Mobile Home Draw [address] [place] [address] 09/02/2024 8:20 AM EDT Office Visit Pulmonary Medicine, [facility] [address] [place] [address] Ish Caba MD [address] [place] [address] 05/03/2025 7:40 AM EST Office Visit Dermatology [address] [place] [address] Albina Romo PA-C [address] [place] [address] [place] [address] Health Maintenance Due Date Last Done Comments [...] this encounter Medical Devices Implanted Type Area Tool Grinder Operator Surface Device Identifier Shelf Expiration Date Model / Serial / Lot Mesh Plug Xlarge [id number] - [id number] Implanted:Qty: 1 on 12/09/2020 by John Zaragoza MD at OR [facility] Left: Groin CR BARD : DAVOL 05/09/2023 [id number] / / [id number] documented as of this encounter Results * (ABNORMAL) SERUM FREE LIGHT CHAINS (11/13/2023 7:55 AM EDT) Pathologist [facility] [place] Free Light Chains, Serum 21.50(H) 3.30 - 19.40 mg/L 11/15/2023 10:34 AM EDT LAB[facility]ATORY [facility] Lambda Free Light Chains, Serum 1.36(L) 5.71 - 26.30 mg/L 11/15/2023 10:34 AM EDT LAB[facility]ATORY [facility] [place] Lambda Free Light Chains Ratio 15.81(H) 0.26 - 1.65 11/15/2023 10:[address] [facility] Blood Venous blood specimen / Unknown Venipuncture / Unknown 11/13/2023 7:55 AM EDT 11/13/2023 11:12 AM EDT Morgan Vásquez MD LAB BLOOD ORDERABLES [facility]ATORY [facility] [address] [place] [address] * (ABNORMAL) SERUM PROTEIN ELECTROPHORESIS REFLEX PROFILE (11/13/2023 7:55 AM EDT) [facility] Normal/Abnormal Abnormal(A) Normal 11/18/19 12:49 PM EDT [facility] Protein 6.7 6.0 - 8.3 g/dL 11/18/2023 12:49 PM EDT LAB[facility]ORY [facility] Albumin 3.74 3.30 - 4.40 g/dL 11/18/2023 12:49 PM EDT LAB[facility]ORY [facility] Alpha-1 Globulin 0.19 0.10 - 0.30 g/dL 11/18/2023 12:49 PM EDT LAB[facility]ORY [facility] Alpha-2 Globulin 0.92 0.60 - 1.00 g/dL 11/18/2023 12:49 PM EDT LAB[facility]ORY [facility] Beta-Globulin 0.84 0.80 - 1.30 g/dL 11/18/2023 12:49 PM EDT LAB[facility]ORY [facility] Gamma-Globulin 1.01 0.70 - 1.70 g/dL 11/18/2023 12:49 PM EDT LAB[facility] M Pranay 0.90 g/dL 11/18/2023 12:49 PM EDT LAB[facility] Electrophoresis Interpretation Abnormal. A paraprotein is present that has been previously identified as a monoclonal IgG kappa. 11/18/2023 12:49 PM EDT [facility] Blood Venous blood specimen / Unknown Venipuncture / Unknown 11/13/2023 7:55 AM EDT 11/13/2023 11:12 AM EDT Morgan Vásquez MD LAB BLOOD ORDERABLES Performing Organization Address [facility] Co de Phone Number LABORATORY [facility] [address] [place] [address] * (ABNORMAL) IMMUNOGLOBULIN QUANTITATIVE (11/13/2023 7:55 AM EDT) IgG 1,103 700 - 1,600 mg/dL 11/15/2023 10:29 AM EDT [facility]ORY [facility] IgA 16(L) 70 - 400 mg/dL 11/15/2023 10:29 AM EDT LAB[facility]ORY [facility] IgM 11(L) 40 - 230 mg/dL 11/15/2023 10:29 AM EDT LAB[facility]ATORY [facility] Blood Venous blood specimen / Unknown Venipuncture / Unknown 11/13/2023 7:55 AM EDT 11/13/2023 11:12 AM EDT Morgan Vásquez MD LAB BLOOD ORDERABLES Performing Organization Address [facility] Co de Phone Number LAB[facility]ATORY [facility] [address] [place] [address] documented in this encounter Visit Diagnoses Diagnosis Multiple myeloma not having achieved remission (HCC)- Primary Multiple myeloma, without mention of having achieved remission Encounter for antineoplastic chemotherapy documented in this encounter Administered Medications Inactive Administered Medications - up to 3 most recent administrations Medication Order MAR Action Action Date Dose Rate Site Acetaminophen (Tylenol) tab 650 mg 650 mg, Oral, ONCE, On Sat11/15/23 at 1000, For 1 dose, Maximum of 4 grams (4000 mg) per day. Given 11/15/2023 9:14 AM EDT 650 mg cycloPHOSphamide (Cytoxan) 740 mg in NSS 250 mL infusion 740 mg (rounded from 735 mg = 300 mg/m2 2.45 m2 Treatment Plan BSA from Recorded weight), IV Piggyback, at 517.4 mL/hr Administer over 30 Minutes, Cyclophosphamide doses over 1g should be in 500 mL. May extend infusion to 1 hour if not tolerated., ONCE, 1 dose, On Sat11/15/23 at 0930 Start Infusion 11/15/2023 9:49 AM EDT 740 mg 517.4 mL/hr Daratumumab-hyaluronida se-fihj (Darzalex Faspro) 1800 mg-78930 units/ 15 ml subcut inj 15 mL, Subcutaneous, ONCE, On Sat11/15/23 at 1030, For 1 dose, Inject subcutanteously into abdomen over 3 to 5 minutes Given 11/15/2023 10:58 AM EDT 15 mL Abdomen Right Lower dexAMETHasone (Decadron) tab 40 mg 40 mg, Oral, ONCE, On Sat11/15/23 at 0930, For 1 dose Given 11/15/2023 9:14 AM EDT 40 mg diphenhydrAMINE (Benadryl) cap 50 mg 50 mg, Oral, ONCE, On Sat11/15/23 at 1000, For 1 dose Given 11/15/2023 9:13 AM EDT 50 mg NSS infusion FOR HYDRATION Intravenous, at 500 mL/hr Administer over 2 Hours, ONCE, 1 dose, On Sat11/15/23 at 0930 Start Infusion 11/15/2023 9:07 AM EDT 1,000 mL 500 mL/hr NSS infusion Intravenous, at 50 mL/hr Administer over 10 Hours, CONTINUOUS, Starting on Sat11/15/23 at 0930, Until Sat11/15/23 at 2053 Start Infusion 11/15/2023 9:05 AM EDT 500 mL 50 mL/hr documented in this encounter Advance Directives * [...] Power of Attor coco? No Care Teams Pipe Caulker Relationship Specialty Start Date End Date Michael Collins MD [address] [place] [address] [place] [address] PCP - General Internal Medicine 03/01/14 documented as of this encounter
--- OUTSIDE RECORDS SUMMARY | 2024-03-26 16:27 | External Medical Summary | Summary of Care ---
Author Name Unknown Organization [facility] Address [address] [facility] [place] [address] Phone [phone] Care Team Providers Care Brake Adjuster Name Role Phone Michael Collins MD Primary Care Provi zehra Reason for Visit * Reason Comments Chemotherapy Cytoxan. * Episode Based Medications (Routine) - Authorized Specialty Diagnoses / Procedures Referred By Contac t Referred To Contact Diagnoses Multiple myeloma not having achieved remission (HCC) Procedures [place] DARATUMUMAB, HYALURONIDASE [place] INJ, CYCLOPHOSPHAMIDE, NOS Morgan Vásquez MD [address] [place] [address] Anc Hem/Onc Amena You DEPT CLOSED - 03/26/23 200 [facility] [place] [address] Referral ID Status Reason Start Date Expiration Date V isits Requested Visits Authorized [id number] Authorized 05/28/2022 05/12/2099 99 99 Encounter Details Date Type Department Care Team (Latest Contact Info) Description 11/21/2023 8:45 AM EDT Hem/Onc Treatment Hematology/Oncolog y Treatment, [place] [address] [place] [address] Kenyatta, Chair 2 Hem Onc Scenery 200 Amena Osman [place] [address] Multiple myeloma not having achieved remission (HCC)*; Encounter for antineoplastic chemotherapy Allergies No known active allergiesdocumented as of this encounter (statuses as of 12/18/2023) Medications Medication Sig Dispensed Refills Start Date End Date Status THEOPHYLLINE ER 450 MG PO CY79Iqyxaegdivg:2 tablet at bedtime Take by mouth. Indications: [...] at bedtime. PATIENT INFORMATION: Kris Galvin [address] [place] [address] [employer]: [employer] ORDER: Please start nocturnal oxygen via nasal [...] signed) Ish Caba MD Pulmonary Medicine, [address] [place] [address] [place] [facility] Medical License Number: [id number] 1 Each 09/21/2022 Active metFORMIN HCl ER [...] mRNA, LNP-s, No Pre serve, 2-Dose Series ([employer]) 01/17/2021,08/05/2020,07/08/2020 COVID-19, LNP-s, No Preserve , Bryant-sucrose, Ages 12+ ([employer]) 09/26/2021 DTaP Dipth/Tet/Acell Pertussis ([employer]), Peds 02/23/2021,11/11/2020,09/09/2020 [...] 8:45 AM EDT Hem/Onc Treatment Hematology/Oncology Treatment, [place] 200 [place] [phone] Keny[place], Chair 9 Hem Onc Scenery 200 [facility] [place] [address] 12/25/2023 7:05 AM EDT Laboratory Lab Mobile Phlebotomy [facility] [address] [place] [address] Mvmg, Gml Mobile Home Draw 2520 [place] [address] 12/26/2023 9:00 AM EDT Hem[facility] 200 [place] [phone] Kenyatta, Chair 10 Hem Onc Scenery 200 [facility] [place] [address] 01/01/2024 7:05 AM EDT Laboratory Lab Mobile Phlebotomy [facility] [address] [employer] [address] [facility] [address] Mvmg, Gml Mobile Home Draw [address] [facility] [address] 01/02/2024 8:30 AM EDT Hem[facility] 200 [place] [phone] Kenyatta, Chair 7 Hem Onc Scenery [address] [facility] [place] [address] 01/08/2024 7:00 AM EDT Laboratory Lab Mobile Phlebotomy M[facility] [address] [employer] [facility] [place] [address] Mvmg, Gml Mobile Home Draw [address] [place] [address] 01/09/2024 8:30 AM EDT Hem/Onc Treatment Hematology/Oncology Treatment, [place] 200 [place] [address] Park, Chair 9 Hem Onc Scenery [address] [facility] [place] [address] 01/15/2024 7:05 AM EDT Laboratory Lab Mobile Phlebotomy M[facility] [address] [place] [address] Mvmg, Gml Mobile Home Draw [address] [place] [address] 01/22/2024 7:05 AM EDT Laboratory Lab Mobile Phlebotomy [facility] [address] [place] [address] Mvmg, Gml Mobile Home Draw [address] [place] [address] 01/29/2024 7:05 AM EDT Laboratory Lab Mobile Phlebotomy [facility] [address] [place] [address] Mvmg, Gml Mobile Home Draw [address] [place] [address] 02/05/2024 7:00 AM EDT Laboratory Lab Mobile Phlebotomy [facility] [address] [place], [place] [address] Mvmg, Gml Mobile Home Draw [address] [place] [address] 02/05/2024 8:40 AM EDT Office Visit Neurology [facility] 200 [facility] [place], [place] [address] Octavia Goins PA-C 200 [facility] [place] [address] 02/07/2024 8:00 AM EDT Office Visit Rheumatology [address] [place] [phone] Darnell Higgins MD [address] [place] [address] 02/12/2024 7:05 AM EDT Laboratory Lab Mobile Phlebotomy [facility] [address] [place] [address] Mvmg, Gml Mobile Home Draw [address] [place] [address] 02/19/2024 7:05 AM EDT Laboratory Lab Mobile Phlebotomy [facility] [address] [place] [address] Mvmg, Gml Mobile Home Draw [address] [facility] [place], [place] [address] 02/26/2024 7:05 AM EDT Laboratory Lab Mobile Phlebotomy [facility] [address] [place] [address] Mvmg, Gml Mobile Home Draw [address] [place] [address] 03/04/2024 7:00 AM EDT Laboratory Lab Mobile Phlebotomy [facility] [address] [facility] [place], [place] [address] Mvmg, Gml Mobile Home Draw [address] [facility] [place], [place] [address] 03/05/2024 10:45 AM EDT Office Visit Hematology/Oncology [facility] [place] 200 [facility], [place] [phone] Morgan Vásquez MD [address] [facility] [place] [address] 03/11/2024 7:05 AM EDT Laboratory Lab Mobile Phlebotomy [facility] [address] [facility] [place], [place] [address] Mvmg, Gml Mobile Home Draw [address] [place] [address] 03/18/2024 7:05 AM EST Laboratory Lab Mobile Phlebotomy [facility] [address] [place] [address] Mvmg, Gml Mobile Home Draw [address] [place] [address] 03/25/2024 7:05 AM EST Laboratory Lab Mobile Phlebotomy M[facility] [address] [place] [address] Mvmg, Gml Mobile Home Draw [address] [place] [address] 04/01/2024 7:00 AM EST Laboratory Lab Mobile Phlebotomy [facility] [address] [place] [address] Mvmg, Gml Mobile Home Draw [address] [place] [address] 04/08/2024 7:05 AM EST Laboratory Lab Mobile Phlebotomy [facility] [address] [place] [address] Mvmg, Gml Mobile Home Draw [address] [place] [address] 04/15/2024 7:05 AM EST Laboratory Lab Mobile Phlebotomy [facility] [address] [place] [address] Mvmg, Gml Mobile Home Draw [address] [place] [address] 04/22/2024 7:05 AM EST Laboratory Lab Mobile Phlebotomy [facility] [address] [place] [address] Mvmg, Gml Mobile Home Draw [address] [facility] [address] 04/29/2024 7:05 AM EST Laboratory Lab Mobile Phlebotomy [facility] [address] [place] [address] Mvmg, Gml Mobile Home Draw [address] [employer] [facility] [address] 05/05/2024 7:05 AM EST Laboratory Lab Mobile Phlebotomy [facility] [address] [place] [address] Mvmg, Gml Mobile Home Draw [address] [employer] [facility] [address] 09/02/2024 8:20 AM EDT Office Visit Pulmonary Medicine, [facility] [address] [place] [address] Ish Caba MD [address] [place] [address] 05/03/2025 7:40 AM EST Office Visit Dermatology [address] [place] [address] Albina Romo PA-C [address] [place] [address] [place] [address] Health Maintenance Due Date Last Done Comments [...] this encounter Medical Devices Implanted Type Area Tin Can Laborer Device Identifier Shelf Expiration Date Model / Serial / Lot Mesh Plug Xlarge [id number] - [id number] Implanted:Qty: 1 on 12/09/2020 by John Zaragoza MD at [facility] Left: Groin CR BARD : DAVOL 05/09/2023 [id number] / / [id number] documented as of this encounter Visit Diagnoses [...] Power of Attor coco? No Care Teams Brake Adjuster Relationship Specialty Start Date End Date Michael Collins MD [address] [place] [address] [place] [address] PCP - General Internal Medicine 03/01/14 documented as of this encounter
--- OUTSIDE RECORDS SUMMARY | 2024-03-26 16:27 | External Medical Summary | Summary of Care ---
Author Name Unknown Organization [facility] Address [address] [facility] [place] [address] Phone [phone] Care Team Providers Care Spice Blender Name Role Phone Michael Collins MD Primary Care Provi zehra Reason for Visit * Reason Comments Chemotherapy Cytoxan. * Episode Based Medications (Routine) - Authorized Specialty Diagnoses / Procedures Referred By Contac t Referred To Contact Diagnoses Multiple myeloma not having achieved remission (HCC) Procedures [place] DARATUMUMAB, HYALURONIDASE [place] INJ, CYCLOPHOSPHAMIDE, NOS Morgan Vásquez MD [address] [place] [address] Anc Hem/Onc Amena You DEPT CLOSED - 03/26/23 200 [facility] [place] [address] Referral ID Status Reason Start Date Expiration Date V isits Requested Visits Authorized [id number] Authorized 05/28/2022 05/12/2099 99 99 Encounter Details Date Type Department Care Team (Latest Contact Info) Description 11/21/2023 8:45 AM EDT Hem/Onc Treatment Hematology/Oncolog y Treatment, [place] [address] [place] [address] Kenyatta, Chair 2 Hem Onc Scenery [address] [place] [address] Multiple myeloma not having achieved remission (HCC)*; Encounter for antineoplastic chemotherapy Allergies No known active allergiesdocumented as of this encounter (statuses as of 12/18/2023) Medications Medication Sig Dispensed Refills Start Date End Date Status THEOPHYLLINE ER 450 MG PO HO87Cxflkzohlya:2 tablet at bedtime Take by mouth. Indications: [...] at bedtime. PATIENT INFORMATION: Kris Galvin [address] [place] [address] [employer]: [employer] ORDER: Please start nocturnal oxygen via nasal [...] signed) Ish Caba MD Pulmonary Medicine, [address] [place] [address] [place] [facility] Medical License Number: [id number] 1 Each 09/21/2022 Active metFORMIN HCl ER [...] mRNA, LNP-s, No Pre serve, 2-Dose Series ([employer]) 01/17/2021,08/05/2020,07/08/2020 COVID-19, LNP-s, No Preserve , Bryant-sucrose, Ages 12+ ([employer]) 09/26/2021 DTaP Dipth/Tet/Acell Pertussis ([employer]), Peds 02/23/2021,11/11/2020,09/09/2020 [...] 8:45 AM EDT Hem/Onc Treatment Hematology/Oncology Treatment, [place] 200 [place] [address] Kenyatta, Chair 9 Hem Onc Scenery 200 [place] [address] 12/25/2023 7:05 AM EDT Laboratory Lab Mobile Phlebotomy [facility] [address] [place] [address] Mvmg, Gml Mobile Home Draw [address]20 [place] [address] 12/26/2023 9:00 AM EDT [facility] 200 [place] [address] Kenyatta, Chair 10 Hem Onc Scenery 200 [place] [address] 01/01/2024 7:05 AM EDT Laboratory Lab Mobile Phlebotomy [facility] [address] [place] [address] Mvmg, Gml Mobile Home Draw [address] [place] [address] 01/02/2024 8:30 AM EDT [facility] 200 [place] [address] Kenyatta, Chair 7 Hem Onc Scenery 200 [place] [address] 01/08/2024 7:00 AM EDT Laboratory Lab Mobile Phlebotomy [facility] [address] [employer] [place] [address] Mvmg, Gml Mobile Home Draw [address]20 [place] [address] 01/09/2024 8:30 AM EDT Hem/Onc Treatment Hematology/Oncology Treatment, [place] 200 [place] [phone] Park, Chair 9 Hem Onc Scenery 200 [place] [address] 01/15/2024 7:05 AM EDT Laboratory Lab Mobile Phlebotomy [facility] [address] [place] [address] Mvmg, Gml Mobile Home Draw [address] [place] [address] 01/22/2024 7:05 AM EDT Laboratory Lab Mobile Phlebotomy [facility] [address] [place] [address] Mvmg, Gml Mobile Home Draw 2520 [place] [address] 01/29/2024 7:05 AM EDT Laboratory Lab Mobile Phlebotomy [facility] [address] [place] [address] Mvmg, Gml Mobile Home Draw [address] [place] [address] 02/05/2024 7:00 AM EDT Laboratory Lab Mobile Phlebotomy [facility] [address] [place], [place] [address] Mvmg, Gml Mobile Home Draw [address] [place] [address] 02/05/2024 8:40 AM EDT Office Visit Neurology [facility] 200 [facility] [place], [place] [address] Octavia Goins PA-C 200 [facility] [place] [address] 02/07/2024 8:00 AM EDT Office Visit Rheumatology [address] [place] [phone] Darnell Higgins MD [address] [place] [address] 02/12/2024 7:05 AM EDT Laboratory Lab Mobile Phlebotomy [facility] [address] [place] [address] Mvmg, Gml Mobile Home Draw [address] [place] [address] 02/19/2024 7:05 AM EDT Laboratory Lab Mobile Phlebotomy [facility] [address] [place] [address] Mvmg, Gml Mobile Home Draw 25[address] [facility] [place], [place] [address] 02/26/2024 7:05 AM EDT Laboratory Lab Mobile Phlebotomy [facility] [address] [place] [address] Mvmg, Gml Mobile Home Draw [address] [place] [address] 03/04/2024 7:00 AM EDT Laboratory Lab Mobile Phlebotomy [facility] [address] [facility] [place], [place] [address] Mvmg, Gml Mobile Home Draw [address] [facility] [place], [place] [address] 03/05/2024 10:45 AM EDT Office Visit Hematology/Oncology [facility] [place] 200 [facility], [place] [phone] Morgan Vásquez MD 200 [place] [address] 03/11/2024 7:05 AM EDT Laboratory Lab Mobile Phlebotomy [facility] [address] [facility] [place], [place] [address] Mvmg, Gml Mobile Home Draw [address] [place] [address] 03/18/2024 7:05 AM EST Laboratory Lab Mobile Phlebotomy [facility] [address] [place] [address] Mvmg, Gml Mobile Home Draw [address] [place] [address] 03/25/2024 7:05 AM EST Laboratory Lab Mobile Phlebotomy [facility] [address] [place] [address] Mvmg, Gml Mobile Home Draw [address] [place] [address] 04/01/2024 7:00 AM EST Laboratory Lab Mobile Phlebotomy [facility] [address] [place] [address] Mvmg, Gml Mobile Home Draw [address] [place] [address] 04/08/2024 7:05 AM EST Laboratory Lab Mobile Phlebotomy [facility] [address] [place] [address] Mvmg, Gml Mobile Home Draw [address] [place] [address] 04/15/2024 7:05 AM EST Laboratory Lab Mobile Phlebotomy [facility] [address] [place] [address] Mvmg, Gml Mobile Home Draw [address] [place] [address] 04/22/2024 7:05 AM EST Laboratory Lab Mobile Phlebotomy [facility] [address] [place] [address] Mvmg, Gml Mobile Home Draw [address] [employer] [address] 04/29/2024 7:05 AM EST Laboratory Lab Mobile Phlebotomy [facility] [address] [place] [address] Mvmg, Gml Mobile Home Draw [address] [employer] [address] 05/05/2024 7:05 AM EST Laboratory Lab Mobile Phlebotomy [facility] [address] [place] [address] Mvmg, Gml Mobile Home Draw [address] [place] [address] 09/02/2024 8:20 AM EDT Office Visit Pulmonary Medicine, [facility] [address] [place] [address] Ish Caba MD [address] [place] [id number] 05/03/2025 7:40 AM EST Office Visit Dermatology [address] [place] [address] Albina Romo PA-C [address] [place] [address] [place] [address] Health Maintenance Due Date Last Done Comments [...] this encounter Medical Devices Implanted Type Area Urologic Nurse Device Identifier Shelf Expiration Date Model / Serial / Lot Mesh Plug Xlarge [id number] - [id number] Implanted:Qty: 1 on 12/09/2020 by John Zaragoza MD at [facility] Left: Groin CR BARD : DAVOL 05/09/2023 [id number] / / [id number] documented as of this encounter Visit Diagnoses [...] Power of Attor coco? No Care Teams Spice Blender Relationship Specialty Start Date End Date Michael Collins MD [address] [place] [address] [place] [address] PCP - General Internal Medicine 03/01/14 documented as of this encounter
--- OUTSIDE RECORDS SUMMARY | 2024-03-26 16:27 | External Medical Summary | Summary of Care ---
Author Name Unknown Organization [facility] Address [address] [facility] [place] [address] Phone [phone] Care Team Providers Care Lead Php Developer Name Role Phone Michael Collins MD Primary Care Provi zehra Reason for Visit * Reason Comments Chemotherapy Cytoxan. * Episode Based Medications (Routine) - Authorized Specialty Diagnoses / Procedures Referred By Contac t Referred To Contact Diagnoses Multiple myeloma not having achieved remission (HCC) Procedures [place] DARATUMUMAB, HYALURONIDASE [place] INJ, CYCLOPHOSPHAMIDE, NOS Morgan Vásquez MD [address] [place] [address] Anc Hem/Onc Amena You DEPT CLOSED - 03/26/23 200 [facility] [place] [address] Referral ID Status Reason Start Date Expiration Date V isits Requested Visits Authorized [id number] Authorized 05/28/2022 05/12/2099 99 99 Encounter Details Date Type Department Care Team (Latest Contact Info) Description 12/05/2023 8:45 AM EDT Hem/Onc Treatment Hematology/Oncolog y Treatment, [place] [address] [place] [address] Kenyatta, Chair 2 Hem Onc Scenery [address] [place] [address] Multiple myeloma not having achieved remission (HCC)*; Encounter for antineoplastic chemotherapy Allergies No known active allergiesdocumented as of this encounter (statuses as of 12/18/2023) Medications Medication Sig Dispensed Refills Start Date End Date Status THEOPHYLLINE ER 450 MG PO [id number]:2 tablet at bedtime Take by mouth. Indications: [...] CAPS Take by mouth. Active Multiple Vitamins-Minerals ([facility]) CHEW Take by [...] at bedtime. PATIENT INFORMATION: Kris Galvin [address] [place] [address] [employer]: [employer] ORDER: Please start nocturnal oxygen via nasal [...] signed) Ish Caba MD Pulmonary Medicine, [address] [place] [address] [place] [facility] Medical License Number: [id number] 1 Each 09/21/2022 Active metFORMIN HCl ER [...] mRNA, LNP-s, No Pre serve, 2-Dose Series ([employer]) 01/17/2021,08/05/2020,07/08/2020 COVID-19, LNP-s, No Preserve , Bryant-sucrose, Ages 12+ ([employer]) 09/26/2021 DTaP Dipth/Tet/Acell Pertussis ([employer]), Peds 02/23/2021,11/11/2020,09/09/2020 [...] 8:45 AM EDT Hem/Onc Treatment Hematology/Oncology Treatment, [place] 200 [place] [phone] Kenyatta, Chair 9 Hem Onc Scenery 200 [facility] [place] [address] 12/25/2023 7:05 AM EDT Laboratory Lab Mobile Phlebotomy [facility] [address] [place] [address] Mvmg, Gml Mobile Home Draw [address] [place] [address] 12/26/2023 9:00 AM EDT Hem/Onc Treatment Hematology/Oncology Treatment, [place] 200 [place] [phone] Kenyatta, Chair 10 Hem Onc Scenery 200 [facility] [place] [address] 01/01/2024 7:05 AM EDT Laboratory Lab Mobile Phlebotomy [facility] [address] [place] [address] Mvmg, Gml Mobile Home Draw [address] [place] [address] 01/02/2024 8:30 AM EDT Hem/Onc Treatment Hematology/Oncology Treatment, [place] 200 [place] [phone] Kenyatta, Chair 7 Hem Onc Scenery 200 [facility] [place] [address] 01/08/2024 7:00 AM EDT Laboratory Lab Mobile Phlebotomy [facility] [address] [place] [address] Mvmg, Gml Mobile Home Draw [address] [place] [address] 01/09/2024 8:30 AM EDT Hem/Onc Treatment Hematology/Oncology Treatment, [place] 200 [place] [phone] Kenyatta, Chair 9 Hem Onc Scenery [address] [facility] [place] [address] 01/15/2024 7:05 AM EDT Laboratory Lab Mobile Phlebotomy [facility] [address] [place] [place], [place] [address] Mvmg, Gml Mobile Home Draw 25[address] [place] [address] 01/22/2024 7:05 AM EDT Laboratory Lab Mobile Phlebotomy [facility] [address] [place] [address] Mvmg, Gml Mobile Home Draw [address] [place] [address] 01/29/2024 7:05 AM EDT Laboratory Lab Mobile Phlebotomy [facility] [address] [place], [place] [address] Mvmg, Gml Mobile Home Draw 25[address] [facility] [place], [place] [address] 02/05/2024 7:00 AM EDT Laboratory Lab Mobile Phlebotomy [facility] [address] [place] [address] Mvmg, Gml Mobile Home Draw [address] [place] [address] 02/05/2024 8:40 AM EDT Office Visit Neurology [facility] 200 [facility] [place], [place] [address] Octavia Goins PA-C 200 [facility] [place] [address] 02/07/2024 8:00 AM EDT Office Visit Rheumatology [address] [place] [phone] Darnell Higgins MD [address] [place], [place] [address] 02/12/2024 7:05 AM EDT Laboratory Lab Mobile Phlebotomy [facility] [address] [place] [address] Mvmg, Gml Mobile Home Draw [address] [place] [address] 02/19/2024 7:05 AM EDT Laboratory Lab Mobile Phlebotomy [facility] [address] [place] [address] Mvmg, Gml Mobile Home Draw [address] [place] [address] 02/26/2024 7:05 AM EDT Laboratory Lab Mobile Phlebotomy [facility] [address] [place] [address] Mvmg, Gml Mobile Home Draw [address] [place] [address] 03/04/2024 7:00 AM EDT Laboratory Lab Mobile Phlebotomy [facility] [address] [place] [address] Mvmg, Gml Mobile Home Draw [address] [place] [address] 03/05/2024 10:45 AM EDT Office Visit Hematology/Oncology [facility] 200 [place] [phone] Morgan Vásquez MD 200 [place] [address] 03/11/2024 7:05 AM EDT Laboratory Lab Mobile Phlebotomy [facility] [address] [place] [address] Mvmg, Gml Mobile Home Draw [address] [place] [address] 03/18/2024 7:05 AM EST Laboratory Lab Mobile Phlebotomy [facility] [address] [place] [address] Mvmg, Gml Mobile Home Draw [address] [place] [address] 03/25/2024 7:05 AM EST Laboratory Lab Mobile Phlebotomy [facility] [address] [place] [address] Mvmg, Gml Mobile Home Draw [address]20 [place] [address] 04/01/2024 7:00 AM EST Laboratory Lab Mobile Phlebotomy [facility] [address] [place] [address] Mvmg, Gml Mobile Home Draw [address] [place] [address] 04/08/2024 7:05 AM EST Laboratory Lab Mobile Phlebotomy [facility] [address] [place] [address] Mvmg, Gml Mobile Home Draw [address] [place] [address] 04/15/2024 7:05 AM EST Laboratory Lab Mobile Phlebotomy [facility] [address] [place] [address] Mvmg, Gml Mobile Home Draw [address] [place] [address] 04/22/2024 7:05 AM EST Laboratory Lab Mobile Phlebotomy [facility] [address] [place] [address] Mvmg, Gml Mobile Home Draw [address] [place] [address] 04/29/2024 7:05 AM EST Laboratory Lab Mobile Phlebotomy [facility] [address] [place] [address] Mvmg, Gml Mobile Home Draw [address] [place] [address] 05/05/2024 7:05 AM EST Laboratory Lab Mobile Phlebotomy [facility] [address] [place] [address] Mvmg, Gml Mobile Home Draw [address] [place] [address] 09/02/2024 8:20 AM EDT Office Visit Pulmonary Medicine, [facility] [address] [place] [address] Ish Caba MD [address] [place] [address] 05/03/2025 7:40 AM EST Office Visit Dermatology [address] [place] [address] Albina Romo PA-C [address] [place] [address] [place] [address] Health Maintenance Due Date Last Done Comments [...] this encounter Medical Devices Implanted Type Area Catalyst Operator Device Identifier Shelf Expiration Date Model / Serial / Lot Mesh Plug Xlarge [id number] - [id number] Implanted:Qty: 1 on 12/09/2020 by John Zaragoza MD at [facility] Left: Groin CR BARD : DAVOL 05/09/2023 [id number] / / [id number] documented as of this encounter Visit Diagnoses [...] Power of Attor coco? No Care Teams Lead Php Developer Relationship Specialty Start Date End Date Michael Collins MD [address] [place] [address] [place] [address] PCP - General Internal Medicine 03/01/14 documented as of this encounter
--- OUTSIDE RECORDS SUMMARY | 2024-03-26 16:27 | External Medical Summary | Summary of Care ---
Author Name Unknown Organization [facility] Address [address] [facility] [place] [address] Phone [phone] Care Team Providers Care Pathology Teacher Name Role Phone Michael Collins MD Primary Care Provi zehra Reason for Visit * Reason Comments Chemotherapy Cytoxan. * Episode Based Medications (Routine) - Authorized Specialty Diagnoses / Procedures Referred By Contac t Referred To Contact Diagnoses Multiple myeloma not having achieved remission (HCC) Procedures MS DARATUMUMAB, HYALURONIDASE MS INJ, CYCLOPHOSPHAMIDE, NOS Morgan Vásquez MD [address] [place] [address] Anc Hem/Onc Amena You DEPT CLOSED - 03/26/23 200 [facility] [place] [address] Referral ID Status Reason Start Date Expiration Date V isits Requested Visits Authorized [id number] Authorized 05/28/2022 05/12/2099 99 99 Encounter Details Date Type Department Care Team (Latest Contact Info) Description 11/21/2023 8:45 AM EDT Hem/Onc Treatment Hematology/Oncolog y Treatment, [place] [address] [place] [address] Kenyatta, Chair 2 Hem Onc Scenery 200 Amena Osman [place] [address] Multiple myeloma not having achieved remission (HCC)*; Encounter for antineoplastic chemotherapy Allergies No known active allergiesdocumented as of this encounter (statuses as of 12/18/2023) Medications Medication Sig Dispensed Refills Start Date End Date Status THEOPHYLLINE ER 450 MG PO [id number]:2 tablet at bedtime Take by mouth. Indications: [...] bedtime. PATIENT INFORMATION: Kris Galvin [address] [place] [address] [employer]: [employer] ORDER: Please start nocturnal oxygen via nasal [...] (electronically signed) Ish Caba MD Pulmonary Medicine, [address] [place] [address] [place] [facility] Medical License Number: [id number] 1 Each 09/21/2022 Active metFORMIN HCl ER [...] mRNA, LNP-s, No Pre serve, 2-Dose Series ([employer]) 01/17/2021,08/05/2020,07/08/2020 COVID-19, LNP-s, No Preserve , Bryant-sucrose, Ages 12+ ([employer]) 09/26/2021 DTaP Dipth/Tet/Acell Pertussis (Infanrix), Peds 02/23/2021,11/11/2020,09/09/2020 [...] 8:45 AM EDT Hem/Onc Treatment Hematology/Oncology Treatment, [place] 200 [facility] [address] Kenyatta, Chair 9 Hem Onc Scenery 200 [place] [place] [address] 12/25/2023 7:05 AM EDT Laboratory Lab Mobile Phlebotomy [facility] [address] [place] [address] M[facility], Gml Mobile Home Draw [address] [place] [address] 12/26/2023 9:00 AM EDT [facility] 200 [facility] [address] Kenyatta, Chair 10 Hem Onc Scenery 200 [facility] [place] [address] 01/01/2024 7:05 AM EDT Laboratory Lab Mobile Phlebotomy [facility] [address] [place] [address] Mvmg, Gml Mobile Home Draw [address] [place] [address] 01/02/2024 8:30 AM EDT [facility] 200 [facility] [address] Kenyatta, Chair 7 Hem Onc Scenery 200 [facility] [place] [address] 01/08/2024 7:00 AM EDT Laboratory Lab Mobile Phlebotomy [facility] [address] [employer] [place] [address] Mvmg, Gml Mobile Home Draw [address] [place] [address] 01/09/2024 8:30 AM EDT Hem/Onc Treatment Hematology/Oncology Treatment, [place] 200 [facility] [phone] Park, Chair 9 Hem Onc Scenery 200 [facility] [place] [address] 01/15/2024 7:05 AM EDT Laboratory Lab Mobile Phlebotomy [facility] [address] [place] [address] Mvmg, Gml Mobile Home Draw [address] [facility] [place] [place] [address] 01/22/2024 7:05 AM EDT Laboratory Lab Mobile Phlebotomy [facility] [address] [place] [address] Mvmg, Gml Mobile Home Draw 2520 [facility] [place] [address] 01/29/2024 7:05 AM EDT Laboratory Lab Mobile Phlebotomy [facility] [address] [place] [address] Mvmg, Gml Mobile Home Draw [address] [facility] [place] [address] 02/05/2024 7:00 AM EDT Laboratory Lab Mobile Phlebotomy [facility] [address] [place], [place] [address] Mvmg, Gml Mobile Home Draw [address] [facility] [place] [address] 02/05/2024 8:40 AM EDT Office Visit Neurology [facility] 200 [facility] [place], [place] [address] Octavia Goins PA-C 200 [facility] [place] [address] 02/07/2024 8:00 AM EDT Office Visit Rheumatology [address] [place] [phone] Darnell Higgins MD [address] [address] 02/12/2024 7:05 AM EDT Laboratory Lab Mobile Phlebotomy [facility] [address] [place] [address] Mvmg, Gml Mobile Home Draw [address] [place] [address] 02/19/2024 7:05 AM EDT Laboratory Lab Mobile Phlebotomy [facility] [address] [employer] [place] [address] Mvmg, Gml Mobile Home Draw [address] [facility] [place], [place] [address] 02/26/2024 7:05 AM EDT Laboratory Lab Mobile Phlebotomy [facility] [address] [facility] [place] [address] Mvmg, Gml Mobile Home Draw [address] [facility] [place] [address] 03/04/2024 7:00 AM EDT Laboratory Lab Mobile Phlebotomy [facility] [address] [facility] [place], [place] [address] Mvmg, Gml Mobile Home Draw [address] [facility] [place], [place] [address] 03/05/2024 10:45 AM EDT Office Visit Hematology/Oncology [facility] [place] 200 [facility], [place] [phone] Morgan Vásquez MD 200 [facility] [place] [address] 03/11/2024 7:05 AM EDT Laboratory Lab Mobile Phlebotomy [facility] [address] [facility] [place], [place] [address] Mvmg, Gml Mobile Home Draw [address] [facility] [place] [address] 03/18/2024 7:05 AM EST Laboratory Lab Mobile Phlebotomy [facility] [address] [place] [address] Mvmg, Gml Mobile Home Draw [address] [facility] [place] [address] 03/25/2024 7:05 AM EST Laboratory Lab Mobile Phlebotomy [facility] [address] [facility] [place] [address] Mvmg, Gml Mobile Home Draw [address] [facility] [place] [address] 04/01/2024 7:00 AM EST Laboratory Lab Mobile Phlebotomy [facility] [address] [place] [address] Mvmg, Gml Mobile Home Draw [address] [facility] [place] [address] 04/08/2024 7:05 AM EST Laboratory Lab Mobile Phlebotomy [facility] [address] [place] [address] Mvmg, Gml Mobile Home Draw [address] [place] [address] 04/15/2024 7:05 AM EST Laboratory Lab Mobile Phlebotomy [facility] [address] [place] [address] Mvmg, Gml Mobile Home Draw [address] [place] [address] 04/22/2024 7:05 AM EST Laboratory Lab Mobile Phlebotomy [facility] [address] [place] [address] Mvmg, Gml Mobile Home Draw [address] [place] [address] 04/29/2024 7:05 AM EST Laboratory Lab Mobile Phlebotomy [facility] [address] [place] [address] Mvmg, Gml Mobile Home Draw [address] [place] [address] 05/05/2024 7:05 AM EST Laboratory Lab Mobile Phlebotomy [facility] [address] [place] [address] Mvmg, Gml Mobile Home Draw [address] [place] [address] 09/02/2024 8:20 AM EDT Office Visit Pulmonary Medicine, [facility] [address] [place] [address] Ish Caba MD [address] [place] [id number] 05/03/2025 7:40 AM EST Office Visit Dermatology [address] [place] [address] Albina Romo PA-C [address] [place] [address] [place] [address] Health Maintenance Due Date Last Done Comments [...] this encounter Medical Devices Implanted Type Area Clinical Research Administrator Device Identifier Shelf Expiration Date Model / Serial / Lot Mesh Plug Xlarge [id number] - [id number] Implanted:Qty: 1 on 12/09/2020 by Jonh Zaragoza MD at [facility] Left: Groin CR BARD : DAVOL 05/09/2023 [id number] / / [id number] documented as of this encounter Visit Diagnoses [...] Power of Attor coco? No Care Teams Pathology Teacher Relationship Specialty Start Date End Date Michael Collins MD [address] [place] [address] [place] [address] PCP - General Internal Medicine 03/01/14 documented as of this encounter
--- OUTSIDE RECORDS SUMMARY | 2024-03-26 16:28 | External Medical Summary | Summary of Care ---
Author Name Unknown Organization [facility] Address [address] [place] [address] Phone [phone] Care Team Providers Care Cotton Picker Operator Name Role Phone Michael Collins MD Primary Care Provi zehra Reason for Visit * Reason Comments Chemotherapy Cytoxan/Darzalex Fas pro * Episode Based Medications (Routine) - Authorized Specialty Diagnoses / Procedures Referred By Contac t Referred To Contact Diagnoses Multiple myeloma not having achieved remission (HCC) Procedures CT DARATUMUMAB, HYALURONIDASE CT INJ, CYCLOPHOSPHAMIDE, NOS Morgan Vásquez MD [address] [place] [address] Anc Hem/Onc Amena You DEPT CLOSED - 03/26/23 200 [facility] [place] [address] Referral ID Status Reason Start Date Expiration Date V isits Requested Visits Authorized [id number] Authorized 05/28/2022 05/12/2099 99 99 Encounter Details Date Type Department Care Team (Latest Contact Info) Description 11/15/2023 8:30 AM EDT Hem/Onc Treatment Hematology/Oncolog y Treatment, [place] [address] [place] [address] Kenyatta, Chair 11 Hem Onc Scenery 200 Amena Osman [place] [address] Multiple myeloma not having achieved remission (HCC)*; Encounter for antineoplastic chemotherapy Allergies No known active allergiesdocumented as of this encounter (statuses as of 12/18/2023) Medications Medication Sig Dispensed Refills Start Date End Date Status THEOPHYLLINE ER 450 MG PO VA95Mlxospjweys:2 tablet at bedtime Take by mouth. Indications: [...] CAPS Take by mouth. Active Multiple Vitamins-Minerals ([facility]) CHEW Take by [...] nostril at bedtime. PATIENT INFORMATION: Kris Galvin [address] [place] [address] [employer]: [employer] ORDER: Please start nocturnal oxygen via nasal [...] (electronically signed) Ish Caba MD Pulmonary Medicine, [address] [place] [address] [place] [facility] Medical License Number: [id number] 1 Each 09/21/2022 Active metFORMIN HCl ER [...] mRNA, LNP-s, No Pre serve, 2-Dose Series ([employer]) 01/17/2021,08/05/2020,07/08/2020 COVID-19, LNP-s, No Preserve , Bryant-sucrose, Ages 12+ ([employer]) 09/26/2021 DTaP Dipth/Tet/Acell Pertussis (Infanrix), Peds 02/23/2021,11/11/2020,09/09/2020 [...] 8:45 AM EDT Hem/Onc Treatment Hematology/Oncology Treatment, [place] 200 [place] [address] Park, Chair 9 Hem Onc Scenery 200 [facility] [place] [address] 12/25/2023 7:05 AM EDT Laboratory Lab Mobile Phlebotomy [facility] [address] [place] [address] Mvmg, Gml Mobile Home Draw [address] [place] [address] 12/26/2023 1:15 PM EDT Hem/Onc Treatment Hematology/Oncology Treatment, [place] 200 [place] [address] Kenyatta, Chair 2 Hem Onc Scenery 200 [facility] [place] [address] 01/01/2024 7:05 AM EDT Laboratory Lab Mobile Phlebotomy [facility] [address] [place] [address] Mvmg, Gml Mobile Home Draw [address] [place] [address] 01/02/2024 2:00 PM EDT Hem/Onc Treatment Hematology/Oncology Treatment, [place] 200 [place] [phone] Park, Chair 5 Hem Onc Scenery [address] [facility] [place] [address] 01/08/2024 7:00 AM EDT Laboratory Lab Mobile Phlebotomy [facility] [address] [place] [address] Mvmg, Gml Mobile Home Draw [address] [place] [address] 01/09/2024 8:30 AM EDT Hem/Onc Treatment Hematology/Oncology Treatment, [place] 200 [place] [address] Park, Chair 9 Hem Onc Scenery [address] [facility] [place] [address] 01/15/2024 7:05 AM EDT Laboratory Lab Mobile Phlebotomy [facility] [address] [place] [address] Mvmg, Gml Mobile Home Draw [address] [place] [address] 01/22/2024 7:05 AM EDT Laboratory Lab Mobile Phlebotomy [facility] [address] [place] [address] Mvmg, Gml Mobile Home Draw [address] [place] [address] 01/29/2024 7:05 AM EDT Laboratory Lab Mobile Phlebotomy [facility] [address] [place] [address] Mvmg, Gml Mobile Home Draw [address] [place] [address] 02/05/2024 7:00 AM EDT Laboratory Lab Mobile Phlebotomy [facility] [address] [facility] [place], [place] [address] Mvmg, Gml Mobile Home Draw [address] [place] [address] 02/05/2024 8:40 AM EDT Office Visit Neurology [facility] 200 [facility], [place] [address] Octavia Goins PA-C [address] [facility] [place] [address] 02/07/2024 8:00 AM EDT Office Visit Rheumatology [address] [place] [phone] Darnell Higgins MD [address] [place] [address] 02/12/2024 7:05 AM EDT Laboratory Lab Mobile Phlebotomy [facility] [address] [facility] [place] [address] Mvmg, Gml Mobile Home Draw [address] [place] [address] 02/19/2024 7:05 AM EDT Laboratory Lab Mobile Phlebotomy [facility] [address] [facility] [place] [address] Mvmg, Gml Mobile Home Draw [address] [place] [address] 02/26/2024 7:05 AM EDT Laboratory Lab Mobile Phlebotomy [facility] [address] [place] [address] Mvmg, Gml Mobile Home Draw [address] [place] [address] 03/04/2024 7:00 AM EDT Laboratory Lab Mobile Phlebotomy [facility] [address] [place] [address] Mvmg, Gml Mobile Home Draw [address] [place] [address] 03/05/2024 10:45 AM EDT Office Visit Hematology/Oncology [facility] 200 [place] [address] Morgan Vásquez MD 200 [place] [address] 03/11/2024 7:05 AM EDT Laboratory Lab Mobile Phlebotomy [facility] [address] [place] [address] Mvmg, Gml Mobile Home Draw [address] [place] [address] 03/18/2024 7:05 AM EST Laboratory Lab Mobile Phlebotomy [facility] [address] [facility] [place] [address] Mvmg, Gml Mobile Home Draw [address] [place] [address] 03/25/2024 7:05 AM EST Laboratory Lab Mobile Phlebotomy [facility] [address] [place] [address] Mvmg, Gml Mobile Home Draw [address] [facility] [place] [address] 04/01/2024 7:00 AM EST Laboratory Lab Mobile Phlebotomy [facility] [address] [place] [address] Mvmg, Gml Mobile Home Draw [address] [place] [address] 04/08/2024 7:05 AM EST Laboratory Lab Mobile Phlebotomy [facility] [address] [place] [address] Mvmg, Gml Mobile Home Draw [address] [place] [address] 04/15/2024 7:05 AM EST Laboratory Lab Mobile Phlebotomy [facility] [address] [place] [address] Mvmg, Gml Mobile Home Draw [address] [place] [address] 04/22/2024 7:05 AM EST Laboratory Lab Mobile Phlebotomy [facility] [address] [place] [address] Mvmg, Gml Mobile Home Draw [address] [place] [address] 04/29/2024 7:05 AM EST Laboratory Lab Mobile Phlebotomy [facility] [address] [place] [address] Mvmg, Gml Mobile Home Draw [address] [place] [address] 05/05/2024 7:05 AM EST Laboratory Lab Mobile Phlebotomy [facility] [address] [place] [address] Mvmg, Gml Mobile Home Draw [address] [place] [address] 09/02/2024 8:20 AM EDT Office Visit Pulmonary Medicine, [facility] [address] [place] [address] Ish Caba MD [address] [place] [address] 05/03/2025 7:40 AM EST Office Visit Dermatology [address] [place] [address] Albina Romo PA-C [address] [place] [address] [place] [address] Health Maintenance Due Date Last Done Comments [...] this encounter Medical Devices Implanted Type Area Seasonal Tax Preparer Device Identifier Shelf Expiration Date Model / Serial / Lot Mesh Plug Xlarge [id number] - [id number] Implanted:Qty: 1 on 12/09/2020 by John Zaragoza MD at OR [facility] Left: Groin CR BARD : DAVOL 05/09/2023 [id number] / / [id number] documented as of this encounter Results * (ABNORMAL) SERUM FREE LIGHT CHAINS (11/13/2023 7:55 AM EDT) Pathologist [facility] [place] Free Light Chains, Serum 21.50(H) 3.30 - 19.40 mg/L 11/15/2023 10:34 AM EDT LABORATORY [facility] [place] Free Light Chains, Serum 1.36(L) 5.71 - 26.30 mg/L 11/15/2023 10:34 AM EDT LABORATORY [facility] [place] Free Light Chains Ratio 15.81(H) 0.26 - 1.65 11/15/2023 10:34 AM EDT LABORATORY [facility] Blood Venous blood specimen / Unknown Venipuncture / Unknown 11/13/2023 7:55 AM EDT 11/13/2023 11:12 AM EDT Morgan Vásquez MD LAB BLOOD ORDERABLES LABORATORY [facility] [address] [place] [address] * (ABNORMAL) SERUM PROTEIN ELECTROPHORESIS REFLEX PROFILE (11/13/2023 7:55 AM EDT) [facility] Normal/Abnormal Abnormal(A) Normal 11/18/19 12:49 PM EDT [...] MD LAB BLOOD ORDERABLES Performing Organization Address [facility] Co de Phone Number LABORATORY [facility] [address] [place] [address] * (ABNORMAL) IMMUNOGLOBULIN QUANTITATIVE (11/13/2023 7:55 AM [...] MD LAB BLOOD ORDERABLES Performing Organization Address [facility] Co de Phone Number LABORATORY [facility] [address] [place] [address] documented in this encounter Visit Diagnoses Diagnosis [...] 517.4 mL/hr Daratumumab-hyaluronida se-fihj (Darzalex Faspro) 1800 mg-55735 units/ 15 ml subcut inj 15 mL, [...] Power of Attor coco? No Care Teams Cotton Picker Operator Relationship Specialty Start Date End Date Michael Collins MD [address] [place] [address] [place] [address] PCP - General Internal Medicine 03/01/14 documented as of this encounter
--- OUTSIDE RECORDS SUMMARY | 2024-03-26 16:28 | External Medical Summary | Summary of Care ---
Author Name Unknown Organization [facility] Address [address] [facility] [place] [address] Phone [phone] Care Team Providers Care Aerial Tram Operator Name Role Phone Michael Collins MD Primary Care Provi zehra Reason for Visit * Reason Comments Chemotherapy Cytoxan/Darzalex Fas pro * Episode Based Medications (Routine) - Authorized Specialty Diagnoses / Procedures Referred By Contac t Referred To Contact Diagnoses Multiple myeloma not having achieved remission (HCC) Procedures MS DARATUMUMAB, HYALURONIDASE MS INJ, CYCLOPHOSPHAMIDE, NOS Morgan Vásquez MD 200 [facility] [place] [address] Anc Hem/Onc Amena You DEPT CLOSED - 03/26/23 200 [facility] [place] [address] Referral ID Status Reason Start Date Expiration Date V isits Requested Visits Authorized [id number] Authorized 05/28/2022 05/12/2099 99 99 Encounter Details Date Type Department Care Team (Latest Contact Info) Description 12/12/2023 11:45 AM EDT Hem/Onc Treatment Hematology/Oncology Treatment, [place] [address] [place] [address] Kenyatta, Chair 4 Hem On[address] [place] [address] Multiple myeloma not having achieved remission (HCC)*; Encounter for adjustment and management of vascular access device Allergies No known active allergiesdocumented as of this encounter (statuses as of 12/13/2023) Medications Medication Sig Dispensed Refills Start Date End Date Status THEOPHYLLINE ER 450 MG PO [id number]:2 tablet at bedtime Take by mouth. Indications: [...] Kris Galvin [address] [place] [address] [employer]: [employer] ORDER: Please start nocturnal oxygen via nasal [...] (electronically signed) Ish Caba MD Pulmonary Medicine, [address] [place] [address] [place] [facility] Medical License Number: [id number] 1 Each 09/21/2022 Active metFORMIN HCl ER [...] as of this encounter (statuses as of 12/13/2023) Active Problems Problem Noted Date Diagnosed Date [...] with loss of consciousness of 30 elena lucoi or less 01/03/2012 Acute, but ill-defined, cerebrovascular disease 01/03/2012 Generalized osteoarthritis 04/14/2008 Degeneration of lumbosacral intervertebral disc 04/14/2008 documented as of this encounter (statuses as of 12/13/2023) Resolved Problems Problem Noted Date Diagnosed Date Resolved Date Asthma in remission 08/28/2022 08/29/19 Asthma, mild persistent 08/28/202208/11 Asthma, severe persistent 08/28/2022 Stem cell transplant candidate 08/17/2019 09/02/2019 documented as of this encounter (statuses as of 12/13/2023) Immunizations Name Administration Dates Next Due COVID-19 mRNA, LNP-s, No Pre serve, 2-Dose Series (Titansan) 01/17/2021,08/05/2020,07/08/2020 COVID-19, LNP-s, No Preserve , Bryant-sucrose, Ages 12+ (Titansan) 09/26/2021 DTaP Dipth/Tet/Acell Pertussis (Infanrix), Peds 02/23/2021,11/11/2020,09/09/2020 [...] (15 years old or older) No 08/31/19 Cognitive Status Response Date of Assessm ent Because of a physical, menta l, or emotional condition, do you have serious difficulty concentrating, remembering, or making decisions? (5 years old or older) No 08/31/2019 documented as of this encounter Nursing Notes * Brittanie Riggs, RN - 12/12/2023 3:31 PM EDT Chair [...] Care Team (Late st Contact Info) Description 12/18/2023 7:05 AM EDT Laboratory Lab Mobile Phlebotomy [facility] [address] [place] [address] M[facility], G[facility] Draw [address] [place] [address] 12/19/2023 8:45 AM EDT Hem/Onc Treatment Hematology/Oncology Treatment, [address] [place] [phone] Kenyatta, Chair 9 Hem Onc Scenery [address] [place] [address] [place] [address] 12/25/2023 7:05 AM EDT Laboratory Lab Mobile Phlebotomy [facility] [address] [place] [address] M[facility], Gml Mobile Home Draw [address] [place] [address] 12/26/2023 1:15 PM EDT Hem/Onc Treatment Hematology/Oncology Treatment, [place] 200 [facility] [place] [phone] Kenyatta, Chair 2 Hem Onc Scenery 200 [facility] [place] [address] 01/01/2024 7:05 AM EDT Laboratory Lab Mobile Phlebotomy [facility] [address] [place], [place] [address] Mvmg, Gml Mobile Home Draw [address] [place] [address] 01/02/2024 2:00 PM EDT [facility] 200 [facility] [place] [phone] Kenyatta, Chair 5 Hem Onc Scenery 200 [place] [address] 01/08/2024 7:00 AM EDT Laboratory Lab Mobile Phlebotomy [facility] [address] [place], [place] [address] Mvmg, Gml Mobile Home Draw 2520 [facility] [place] [address] 01/09/2024 8:30 AM EDT [facility] 200 [facility] [place] [phone] Kenyatta, Chair 9 Hem Onc Scenery 200 [place] [address] 01/15/2024 7:05 AM EDT Laboratory Lab Mobile Phlebotomy [facility] [address] [place] [address] Mvmg, Gml Mobile Home Draw [address] [place] [address] 01/22/2024 7:05 AM EDT Laboratory Lab Mobile Phlebotomy [facility] [address] [place] [address] Mvmg, Gml Mobile Home Draw [address] [place], [place] [address] 01/29/2024 7:05 AM EDT Laboratory Lab Mobile Phlebotomy [facility] [address] [place] [address] Mvmg, Gml Mobile Home Draw [address] [place] [address] 02/05/2024 7:00 AM EDT Laboratory Lab Mobile Phlebotomy [facility] [address] [place], [place] [address] Mvmg, Gml Mobile Home Draw [address] [place] Cecile Osman [place], [place] [address] 02/05/2024 8:40 AM EDT Office Visit Neurology [facility] 200 [facility] [place], [place] [address] Octavia Goins PA-C 200 [facility] [place] [address] 02/07/2024 8:00 AM EDT Office Visit Rheumatology [address] [place] [phone] Darnell Higgins MD [facility] [place] Cecile Osman [place], [place] [address] 02/12/2024 7:05 AM EDT Laboratory Lab Mobile Phlebotomy [facility] [address] [place], [place] [address] Mvmg, Gml Mobile Home Draw [address] [place], [place] [address] 02/19/2024 7:05 AM EDT Laboratory Lab Mobile Phlebotomy [facility] [address] [place], [place] [address] Mvmg, Gml Mobile Home Draw [address] [place] [address] 02/26/2024 7:05 AM EDT Laboratory Lab Mobile Phlebotomy [facility] [address] [place] [employer], [place] [address] Mvmg, Gml Mobile Home Draw [address] [place], [place] [address] 03/04/2024 7:00 AM EDT Laboratory Lab Mobile Phlebotomy [facility] [address] [place], [place] [address] Mvmg, Gml Mobile Home Draw [address] [place] [address] 03/05/2024 10:45 AM EDT Office Visit Hematology/Oncology [facility] [place] 200 [facility] [place] [phone] Morgan Vásquez MD 200 [facility] [place] [address] 03/11/2024 7:05 AM EDT Laboratory Lab Mobile Phlebotomy [facility] [address] [place] [address] Mvmg, Gml Mobile Home Draw [address] [place] [address] 03/18/2024 7:05 AM EST Laboratory Lab Mobile Phlebotomy [facility] [address] [place] [address] Mvmg, Gml Mobile Home Draw [address] [place] [address] 03/25/2024 7:05 AM EST Laboratory Lab Mobile Phlebotomy [facility] [address] [place] [address] Mvmg, Gml Mobile Home Draw 2520 [facility] [place] [address] 04/01/2024 7:00 AM EST Laboratory Lab Mobile Phlebotomy [facility] 2520 [employer] [facility] [place] [address] Mvmg, Gml Mobile Home Draw [address] [place] [address] 04/08/2024 7:05 AM EST Laboratory Lab Mobile Phlebotomy [facility] [address] [place] [address] Mvmg, Gml Mobile Home Draw 2520 [facility] [place] [address] 04/15/2024 7:05 AM EST Laboratory Lab Mobile Phlebotomy [facility] 25[address] [facility] [place] [address] Mvmg, Gml Mobile Home Draw 25[address] [place] [address] 04/22/2024 7:05 AM EST Laboratory Lab Mobile Phlebotomy [facility] [address] [place], [place] [address] Mvmg, Gml Mobile Home Draw [address] [place] [employer] [place], [place] [address] 04/29/2024 7:05 AM EST Laboratory Lab Mobile Phlebotomy [facility] [address] [place] [address] Mvmg, Gml Mobile Home Draw [address] [place], [place] [address] 05/05/2024 7:05 AM EST Laboratory Lab Mobile Phlebotomy [facility] [address] [place] [address] Mvmg, Gml Mobile Home Draw 2520 [facility] [place] [address] 09/02/2024 8:20 AM EDT Office Visit Pulmonary Medicine, [facility] 132 [facility] [place] [address] Ish Caba MD [address] [place] [address] 05/03/2025 7:40 AM EST Office Visit Dermatology [address] [place] [address] Albina Romo PA-C [address] [place] [address] [place] [address] Health Maintenance Due Date Last Done Comments [...] this encounter Medical Devices Implanted Type Area Manufacturing Electrician Device Identifier Shelf Expiration Date Model / Serial / Lot Mesh Plug Xlarge [id number] - [id number] Implanted:Qty: 1 on 12/09/2020 by John Zaragoza MD at OR [facility] Left: Groin CR BARD : DAVOL 05/09/2023 [id number] / / [id number] documented as of this encounter Visit Diagnoses [...] PM EDT 740 mg 517.4 mL/hr Daratumumab-hyaluronida se-fihj (Darzalex Faspro) 1800 mg-57494 units/ 15 ml subcut inj 15 mL, [...] Power of Attor coco? No Care Teams Aerial Tram Operator Relationship Specialty Start Date End Date Michael Collins MD [address] [place] [address] [place] [address] PCP - General Internal Medicine 03/01/14 documented as of this encounter
--- OUTSIDE RECORDS SUMMARY | 2024-03-26 16:28 | External Medical Summary ---
Author Name Unknown Address Unknown Organization K01:LABORATORY [facility] - [address] [place] [address] Laboratory Report Ordering Provider Test Date Status KALPESH SERRANO 12/18/2023 08:07:00 Final Observation Date Value Abnormality Reference (Units ) Status SYNC LEUKOCYTES IN BLOOD BY AUTOMATED COUNT 12/18/2023 08:07:00 5.29 4.00-10.80 (K/uL) Final Segs 12/18/2023 08:07:00 71.0 40.0-75.0 (%) Final Lymphs % 12/18/2023 08:07:00 12.9 Below low normal 18.0-42.0 (%) Final Monos 12/18/2023 08:07:00 13.8 Above high normal 1.0-11.0 (%) Final Eosinophils 12/18/2023 08:07:00 1.7 0.0-6.0 (%) Final Basos 12/18/2023 08:07:00 0.4 0.0-2.0 (%) Final Immature Granulocyte, Percent 12/18/2023 08:07:00 0.2 0.0-2.0 (%) Final Absolute Segs 12/18/2023 08:07:00 3.76 1.80-7.70 (K/uL) Final Lymphs, absolute 12/18/2023 08:07:00 0.68 Below low normal 1.00-4.80 (K/ul) Final Monos, Abs 12/18/2023 08:07:00 0.73 0.00-1.10 (K/uL) Final Eos, Abs 12/18/2023 08:07:00 0.09 0.00-0.70 (K/uL) Final Basos, Abs 12/18/2023 08:07:00 0.02 0.00-0.20 (K/uL) Final Immature Granulocytes, Number 12/18/2023 08:07:00 0.01 0.00-0.20 (K/uL) Final Performing Location LABORATORY [facility] - [facility] N Josselin Peña. [facility] [address]
--- OUTSIDE RECORDS SUMMARY | 2024-03-26 16:28 | External Medical Summary | Summary of Care ---
Author Name Unknown Organization [facility] Address [address] [facility] [place] [address] Phone [phone] Care Team Providers Care Refinery Operator Coking Name Role Phone Michael Collins MD Primary Care Provi zehra Reason for Visit * Reason Comments Chemotherapy Cytoxan/Darzalex Fas pro * Episode Based Medications (Routine) - Authorized Specialty Diagnoses / Procedures Referred By Contac t Referred To Contact Diagnoses Multiple myeloma not having achieved remission (HCC) Procedures MD DARATUMUMAB, HYALURONIDASE MD INJ, CYCLOPHOSPHAMIDE, NOS Morgan Vásquez MD [address] [place] [address] Anc Hem/Onc Amena You DEPT CLOSED - 03/26/23 200 [facility] [place] [address] Referral ID Status Reason Start Date Expiration Date V isits Requested Visits Authorized [id number] Authorized 05/28/2022 05/12/2099 99 99 Encounter Details Date Type Department Care Team (Latest Contact Info) Description 11/15/2023 8:30 AM EDT Hem/Onc Treatment Hematology/Oncolog y Treatment, [place] [address] [place] [address] Kenyatta, Chair 11 Hem Onc Scenery 200 Amena Osman [place] [address] Multiple myeloma not having achieved remission (HCC)*; Encounter for antineoplastic chemotherapy Allergies No known active allergiesdocumented as of this encounter (statuses as of 12/18/2023) Medications Medication Sig Dispensed Refills Start Date End Date Status THEOPHYLLINE ER 450 MG PO [id number]:2 tablet at bedtime Take by mouth. Indications: [...] nostril at bedtime. PATIENT INFORMATION: Kris Galvin [address] [place] [address] [employer]: [employer] ORDER: Please start nocturnal oxygen via nasal [...] signed) Ish Caba MD Pulmonary Medicine, [address] [place] [address] [place] [facility] Medical License Number: [id number] 1 Each 09/21/2022 Active metFORMIN HCl ER [...] mRNA, LNP-s, No Pre serve, 2-Dose Series (Narrable) 01/17/2021,08/05/2020,07/08/2020 COVID-19, LNP-s, No Preserve , Bryant-sucrose, Ages 12+ (Narrable) 09/26/2021 DTaP Dipth/Tet/Acell Pertussis (Infanrix), Peds 02/23/2021,11/11/2020,09/09/2020 [...] 8:45 AM EDT Hem/Onc Treatment Hematology/Oncology Treatment, [place] 200 [place] [phone] Park, Chair 9 Hem Onc Scenery 200 [facility] [place] [address] 12/25/2023 7:05 AM EDT Laboratory Lab Mobile Phlebotomy [facility] [address] [place] [address] Mvmg, Gml Mobile Home Draw [address] [place] [address] 12/26/2023 1:15 PM EDT Hem/Onc Treatment Hematology/Oncology Treatment, [place] 200 [facility] [place] [address] Kenyatta, Chair 2 Hem Onc Scenery 200 [facility] [place] [address] 01/01/2024 7:05 AM EDT Laboratory Lab Mobile Phlebotomy [facility] [address] [place] [address] Mvmg, Gml Mobile Home Draw [address] [place] [address] 01/02/2024 2:00 PM EDT Hem/Onc Treatment Hematology/Oncology Treatment, [place] 200 [facility] [place] [address] Park, Chair 5 Hem Onc Scenery 200 [facility] [place] [address] 01/08/2024 7:00 AM EDT Laboratory Lab Mobile Phlebotomy [facility] [address] [place] [address] Mvmg, Gml Mobile Home Draw [address] [place] [address] 01/09/2024 8:30 AM EDT Hem/Onc Treatment Hematology/Oncology Treatment, [place] 200 [facility] [place] [address] Park, Chair 9 Hem Onc Scenery 200 [facility] [place] [address] 01/15/2024 7:05 AM EDT Laboratory Lab Mobile Phlebotomy [facility] [address] [place] [address] Mvmg, Gml Mobile Home Draw 2520 [facility] [place] [address] 01/22/2024 7:05 AM EDT Laboratory Lab Mobile Phlebotomy [facility] [address] [facility] [place] [address] Mvmg, Gml Mobile Home Draw 2520 [facility] [place] [address] 01/29/2024 7:05 AM EDT Laboratory Lab Mobile Phlebotomy [facility] [address] [place] [address] Mvmg, Gml Mobile Home Draw 2520 [facility] [place] [address] 02/05/2024 7:00 AM EDT Laboratory Lab Mobile Phlebotomy [facility] 2520 [facility] [place], [place] [address] Mvmg, Gml Mobile Home Draw 2520 [facility] [place] [address] 02/05/2024 8:40 AM EDT Office Visit Neurology [facility] 200 [facility], [place] [address] Octavia Goins PA-C 200 [facility] [place] [address] 02/07/2024 8:00 AM EDT Office Visit Rheumatology [address] [place] [phone] Darnell Higgins MD 2520 [facility] [place] [address] 02/12/2024 7:05 AM EDT Laboratory Lab Mobile Phlebotomy [facility] [address] [address] [facility] [place] [address] Mvmg, Gml Mobile Home Draw 2520 [facility] [place] [address] 02/19/2024 7:05 AM EDT Laboratory Lab Mobile Phlebotomy [facility] [address] [facility] [place] [place] [address] Mvmg, Gml Mobile Home Draw 25[address] [facility] [place] [address] 02/26/2024 7:05 AM EDT Laboratory Lab Mobile Phlebotomy [facility] [address] [place] [address] Mvmg, Gml Mobile Home Draw 2520 [facility] [place] [address] 03/04/2024 7:00 AM EDT Laboratory Lab Mobile Phlebotomy [facility] [address] [facility] [place] [address] Mvmg, Gml Mobile Home Draw 2520 [facility] [place] [address] 03/05/2024 10:45 AM EDT Office Visit Hematology/Oncology [facility] 200 [place] [address] Morgan Vásquez MD 200 [place] [address] 03/11/2024 7:05 AM EDT Laboratory Lab Mobile Phlebotomy [facility] [address] [place] [address] Mvmg, Gml Mobile Home Draw 2520 [facility] [place] [address] 03/18/2024 7:05 AM EST Laboratory Lab Mobile Phlebotomy [facility] [address] [facility] [place] [address] Mvmg, Gml Mobile Home Draw 2520 [facility] [place] [address] 03/25/2024 7:05 AM EST Laboratory Lab Mobile Phlebotomy [facility] [address] [place] [address] Mvmg, Gml Mobile Home Draw [address] [facility] [place] [address] 04/01/2024 7:00 AM EST Laboratory Lab Mobile Phlebotomy [facility] 2520 [facility] [place] [address] Mvmg, Gml Mobile Home Draw 2520 [place] [address] 04/08/2024 7:05 AM EST Laboratory Lab Mobile Phlebotomy [facility] [address] [place] [address] Mvmg, Gml Mobile Home Draw [address] [place] [address] 04/15/2024 7:05 AM EST Laboratory Lab Mobile Phlebotomy [facility] [address] [place] [address] Mvmg, Gml Mobile Home Draw [address] [place] [address] 04/22/2024 7:05 AM EST Laboratory Lab Mobile Phlebotomy [facility] 2520 [facility] [place] [address] Mvmg, Gml Mobile Home Draw [address] [place] [address] 04/29/2024 7:05 AM EST Laboratory Lab Mobile Phlebotomy [facility] [address] [facility] [place] [address] Mvmg, Gml Mobile Home Draw [address] [place] [address] 05/05/2024 7:05 AM EST Laboratory Lab Mobile Phlebotomy [facility] [address] [place] [address] Mvmg, Gml Mobile Home Draw [address] [place] [address] 09/02/2024 8:20 AM EDT Office Visit Pulmonary Medicine, [facility] [address] [place] [address] Ish Caba MD [address] [place] [address] 05/03/2025 7:40 AM EST Office Visit Dermatology [address] [place] [address] Albina Romo PA-C [address] [place] [address] [place] [address] Health Maintenance Due Date Last Done Comments [...] this encounter Medical Devices Implanted Type Area Occupational Therapy Supervisor Device Identifier Shelf Expiration Date Model / Serial / Lot Mesh Plug Xlarge [id number] - [id number] Implanted:Qty: 1 on 12/09/2020 by John Zaragoza MD at OR [facility] Left: Groin CR BARD : DAVOL 05/09/2023 [id number] / / [id number] documented as of this encounter Results * (ABNORMAL) SERUM FREE LIGHT CHAINS (11/13/2023 7:55 AM EDT) Pathologist [facility] [place] Free Light Chains, Serum 21.50(H) 3.30 - 19.40 mg/L 11/15/2023 10:34 AM EDT LAB[facility]ATORY [facility] [place] Free Light Chains, Serum 1.36(L) 5.71 - 26.30 mg/L 11/15/2023 10:34 AM EDT LAB[facility]ATORY [facility] [place] Free Light Chains Ratio 15.81(H) 0.26 - 1.65 11/15/2023 10:34 AM EDT [facility] Blood Venous blood specimen / Unknown Venipuncture / Unknown 11/13/2023 7:55 AM EDT 11/13/2023 11:12 AM EDT Morgan Vásquez MD LAB BLOOD ORDERABLES [facility] [address] [place] [address] * (ABNORMAL) SERUM PROTEIN ELECTROPHORESIS REFLEX PROFILE (11/13/2023 7:55 AM EDT) [facility] Normal/Abnormal Abnormal(A) Normal 11/18/19 12:49 PM [...] MD LAB BLOOD ORDERABLES Performing Organization Address [facility] Co de Phone Number [facility] [address] [place] [address] * (ABNORMAL) IMMUNOGLOBULIN QUANTITATIVE (11/13/2023 7:55 AM EDT) IgG 1,103 700 - 1,600 mg/dL 11/15/2023 10:29 AM EDT [facility] IgA 16(L) 70 - 400 mg/dL 11/15/2023 10:29 AM EDT [facility] IgM 11(L) 40 - 230 mg/dL 11/15/2023 10:29 AM EDT [facility] Blood Venous blood specimen / Unknown Venipuncture / Unknown 11/13/2023 7:55 AM EDT 11/13/2023 11:12 AM EDT Morgan Váqsuez MD LAB BLOOD ORDERABLES Performing Organization Address [facility] Co de Phone Number [facility] [address] [place] [address] documented in this encounter Visit Diagnoses Diagnosis [...] 517.4 mL/hr Daratumumab-hyaluronida se-fihj (Darzalex Faspro) 1800 mg-80507 units/ 15 ml subcut inj 15 mL, [...] Power of Attor coco? No Care Teams Refinery Operator Coking Relationship Specialty Start Date End Date Michael Collins MD [address] [place] [address] [place] [address] PCP - General Internal Medicine 03/01/14 documented as of this encounter
--- OUTSIDE RECORDS SUMMARY | 2024-03-26 16:28 | External Medical Summary | Summary of Care ---
Author Name Unknown Organization [facility] Address [address] [place] [address] Phone [phone] Care Team Providers Care Service Associate Name Role Phone Michael Collins MD Primary Care Provi zehra Reason for Visit * Reason Comments Chemotherapy Cytoxan/Darzalex Fas pro * Episode Based Medications (Routine) - Authorized Specialty Diagnoses / Procedures Referred By Contac t Referred To Contact Diagnoses Multiple myeloma not having achieved remission (HCC) Procedures ME DARATUMUMAB, HYALURONIDASE ME INJ, CYCLOPHOSPHAMIDE, NOS Morgan Vásquez MD [address] [place] [address] Anc Hem/Onc Amena You DEPT CLOSED - 03/26/23 200 [facility] [place] [address] Referral ID Status Reason Start Date Expiration Date V isits Requested Visits Authorized [id number] Authorized 05/28/2022 05/12/2099 99 99 Encounter Details Date Type Department Care Team (Latest Contact Info) Description 11/15/2023 8:30 AM EDT Hem/Onc Treatment Hematology/Oncolog y Treatment, [place] [address] [place] [address] Kenyatta, Chair 11 Hem Onc Scenery 200 Amena Osman [place] [address] Multiple myeloma not having achieved remission (HCC)*; Encounter for antineoplastic chemotherapy Allergies No known active allergiesdocumented as of this encounter (statuses as of 12/18/2023) Medications Medication Sig Dispensed Refills Start Date End Date Status THEOPHYLLINE ER 450 MG PO [id number]:2 tablet at bedtime Take by mouth. Indications: [...] CAPS Take by mouth. Active Multiple Vitamins-Minerals ([facility] IMMUNITY SUPPORT) [...] nostril at bedtime. PATIENT INFORMATION: Kris Galvin [address] [place] [address] [employer]: [employer] ORDER: Please start nocturnal oxygen via nasal [...] signed) Ish Caba MD Pulmonary Medicine, [address] [place] [address] [place] [facility] Medical License Number: [id number] 1 Each 09/21/2022 Active metFORMIN HCl ER [...] mRNA, LNP-s, No Pre serve, 2-Dose Series ([employer]) 01/17/2021,08/05/2020,07/08/2020 COVID-19, LNP-s, No Preserve , Bryant-sucrose, Ages 12+ ([employer]) 09/26/2021 DTaP Dipth/Tet/Acell Pertussis ([employer]), Peds 02/23/2021,11/11/2020,09/09/2020 [...] 8:45 AM EDT Hem/Onc Treatment Hematology/Oncology Treatment, [place] 200 [facility] [place] [phone] Park, Chair 9 Hem Onc Scenery 200 [facility] [place] [address] 12/25/2023 7:05 AM EDT Laboratory Lab Mobile Phlebotomy [facility] [address] [place] [address] Mvmg, Gml Mobile Home Draw [address] [place] [address] 12/26/2023 1:15 PM EDT Hem/Onc Treatment Hematology/Oncology Treatment, [place] 200 [facility] [place] [address] Kenyatta, Chair 2 Hem Onc Scenery 200 [facility] [place] [address] 01/01/2024 7:05 AM EDT Laboratory Lab Mobile Phlebotomy [facility] [address] [place] [address] Mvmg, Gml Mobile Home Draw [address] [place] [address] 01/02/2024 2:00 PM EDT Hem/Onc Treatment Hematology/Oncology Treatment, [place] 200 [facility] [place] [phone] Park, Chair 5 Hem Onc Scenery 200 [facility] [place] [address] 01/08/2024 7:00 AM EDT Laboratory Lab Mobile Phlebotomy [facility] [address] [place] [address] Mvmg, Gml Mobile Home Draw [address] [place] [address] 01/09/2024 8:30 AM EDT Hem/Onc Treatment Hematology/Oncology Treatment, [place] 200 [facility] [place] [address] Park, Chair 9 Hem Onc Scenery 200 [facility] [place] [address] 01/15/2024 7:05 AM EDT Laboratory Lab Mobile Phlebotomy [facility] [address] [place] [address] Mvmg, Gml Mobile Home Draw 2520 [facility] [place] [address] 01/22/2024 7:05 AM EDT Laboratory Lab Mobile Phlebotomy [facility] [address] [facility] [place] [address] Mvmg, Gml Mobile Home Draw [address] [facility] [place] [address] 01/29/2024 7:05 AM EDT Laboratory Lab Mobile Phlebotomy [facility] [address] [place] [address] Mvmg, Gml Mobile Home Draw 25[address] [facility] [place] [address] 02/05/2024 7:00 AM EDT Laboratory Lab Mobile Phlebotomy [facility] [address] [facility] [place], [place] [address] Mvmg, Gml Mobile Home Draw [address] [facility] [place] [address] 02/05/2024 8:40 AM EDT Office Visit Neurology [facility] 200 [facility], [place] [address] Octavia Goins PA-C 200 [facility] [place] [address] 02/07/2024 8:00 AM EDT Office Visit Rheumatology [address] [place] [phone] Darnell Higgins MD 2520 [facility] [place] [address] 02/12/2024 7:05 AM EDT Laboratory Lab Mobile Phlebotomy [facility] [address] [facility] [place] [address] Mvmg, Gml Mobile Home Draw 2520 [facility] [place] [address] 02/19/2024 7:05 AM EDT Laboratory Lab Mobile Phlebotomy [facility] [address] [facility] [place] [address] Mvmg, Gml Mobile Home Draw 25[address] [facility] [place] [address] 02/26/2024 7:05 AM EDT Laboratory Lab Mobile Phlebotomy [facility] [address] [place] [address] Mvmg, Gml Mobile Home Draw 25[address] [facility] [place] [address] 03/04/2024 7:00 AM EDT Laboratory Lab Mobile Phlebotomy [facility] [address] [facility] [place] [address] Mvmg, Gml Mobile Home Draw [address] [facility] [place] [address] 03/05/2024 10:45 AM EDT Office Visit Hematology/Oncology [facility] 200 [place] [address] Morgan Vásquez MD 200 [place] [address] 03/11/2024 7:05 AM EDT Laboratory Lab Mobile Phlebotomy [facility] [address] [place] [address] Mvmg, Gml Mobile Home Draw 2520 [facility] [place] [address] 03/18/2024 7:05 AM EST Laboratory Lab Mobile Phlebotomy [facility] [address] [facility] [place] [address] Mvmg, Gml Mobile Home Draw 25[address] [facility] [place] [address] 03/25/2024 7:05 AM EST Laboratory Lab Mobile Phlebotomy [facility] [address] [place] [address] Mvmg, Gml Mobile Home Draw [address] [facility] [place] [address] 04/01/2024 7:00 AM EST Laboratory Lab Mobile Phlebotomy [facility] [address] [facility] [place] [address] Mvmg, Gml Mobile Home Draw 2520 [facility] [place] [address] 04/08/2024 7:05 AM EST Laboratory Lab Mobile Phlebotomy [facility] [address] [facility] [place] [address] Mvmg, Gml Mobile Home Draw [address] [facility] [place] [address] 04/15/2024 7:05 AM EST Laboratory Lab Mobile Phlebotomy [facility] [address] [facility] [place] [address] Mvmg, Gml Mobile Home Draw [address] [facility] [place] [address] 04/22/2024 7:05 AM EST Laboratory Lab Mobile Phlebotomy [facility] [address] [facility] [place] [address] Mvmg, Gml Mobile Home Draw 2520 [facility] [place] [address] 04/29/2024 7:05 AM EST Laboratory Lab Mobile Phlebotomy [facility] [address] [facility] [place] [address] Mvmg, Gml Mobile Home Draw 25[address] [facility] [place] [address] 05/05/2024 7:05 AM EST Laboratory Lab Mobile Phlebotomy [facility] [address] [facility] [place] [address] Mvmg, Gml Mobile Home Draw [address] [facility] [place] [address] 09/02/2024 8:20 AM EDT Office Visit Pulmonary Medicine, [facility] [address] [place] [address] Ish Caba MD [address] [place] [address] 05/03/2025 7:40 AM EST Office Visit Dermatology [address] [place] [address] Albina Romo PA-C [address] [place] [address] [place] [address] Health Maintenance Due Date Last Done Comments [...] this encounter Medical Devices Implanted Type Area Jogger Operator Device Identifier Shelf Expiration Date Model / Serial / Lot Mesh Plug Xlarge [id number] - [id number] Implanted:Qty: 1 on 12/09/2020 by John Zaragoza MD at OR [facility] Left: Groin CR BARD : DAVOL 05/09/2023 [id number] / / [id number] documented as of this encounter Results * (ABNORMAL) SERUM FREE LIGHT CHAINS (11/13/2023 7:55 AM EDT) Pathologist [facility] Free Light Chains, Serum 21.50(H) 3.30 - 19.40 mg/L 11/15/2023 10:34 AM EDT LABORATORY [facility] Free Light Chains, Serum 1.36(L) 5.71 - 26.30 mg/L 11/15/2023 10:34 AM EDT LABORATORY [facility] Free Light Chains Ratio 15.81(H) 0.26 - 1.65 11/15/2023 10:34 AM EDT LABORATORY [facility] Blood Venous blood specimen / Unknown Venipuncture / Unknown 11/13/2023 7:55 AM EDT 11/13/2023 11:12 AM EDT Morgan Vásquez MD LAB BLOOD ORDERABLES LABORATORY [facility] [address] [place] [address] * (ABNORMAL) SERUM PROTEIN ELECTROPHORESIS REFLEX PROFILE (11/13/2023 7:55 AM EDT) [facility] Normal/Abnormal Abnormal(A) Normal 11/18/19 12:49 PM EDT [...] MD LAB BLOOD ORDERABLES Performing Organization Address [facility] Co de Phone Number LABORATORY [facility] [address] [place] [address] * (ABNORMAL) IMMUNOGLOBULIN QUANTITATIVE (11/13/2023 7:55 AM [...] MD LAB BLOOD ORDERABLES Performing Organization Address [facility] Co de Phone Number LABORATORY [facility] [address] [place] [address] documented in this encounter Visit Diagnoses Diagnosis [...] 517.4 mL/hr Daratumumab-hyaluronida se-fihj (Darzalex Faspro) 1800 mg-84841 units/ 15 ml subcut inj 15 mL, [...] of Attor coco? No Care Teams Service Associate Relationship Specialty Start Date End Date Michael Collins MD [address] [place] [address] [place] [address] PCP - General Internal Medicine 03/01/14 documented as of this encounter
--- OUTSIDE RECORDS SUMMARY | 2024-03-26 16:28 | External Medical Summary | Summary of Care ---
Author Name Unknown Organization [facility] Address [address] [facility] [place] [address] Phone [phone] Care Team Providers Care Chocolate Production Machine Operator Name Role Phone Michael Collins MD Primary Care Provi zehra Reason for Visit * Reason Comments Chemotherapy Cytoxan/Darzalex Fas pro * Episode Based Medications (Routine) - Authorized Specialty Diagnoses / Procedures Referred By Contac t Referred To Contact Diagnoses Multiple myeloma not having achieved remission (HCC) Procedures NE DARATUMUMAB, HYALURONIDASE NE INJ, CYCLOPHOSPHAMIDE, NOS Morgan Vásquez MD [address] [facility] [place] [address] Anc Hem/Onc Amena You DEPT CLOSED - 03/26/[address] [facility] [place] [address] Referral ID Status Reason Start Date Expiration Date V isits Requested Visits Authorized [id number] Authorized 05/28/2022 05/12/2099 99 99 Encounter Details Date Type Department Care Team (Latest Contact Info) Description 12/12/2023 11:45 AM EDT Hem/Onc Treatment Hematology/Oncology Treatment, [place] [address] [place] [address] Kenyatta, Chair [address] [place] [address] Multiple myeloma not having achieved remission (HCC)*; Encounter for adjustment and management of vascular access device Allergies No known active allergiesdocumented as of this encounter (statuses as of 12/12/2023) Medications Medication Sig Dispensed Refills Start Date End Date Status THEOPHYLLINE ER 450 MG PO [id number]:2 tablet at bedtime Take by mouth. Indications: [...] Kris Galvin [address] [place] [address] [employer]: [employer] ORDER: Please start nocturnal oxygen via nasal [...] signed) Ish Caba MD Pulmonary Medicine, [address] [place] [address] E[place] [facility] Medical License Number: [id number] 1 Each 09/21/2022 Active metFORMIN HCl ER [...] as of this encounter (statuses as of 12/12/2023) Active Problems Problem Noted Date Diagnosed Date [...] as of this encounter (statuses as of 12/12/2023) Resolved Problems Problem Noted Date Diagnosed Date Resolved Date Asthma in remission 08/28/2022 08/29/19 Asthma, mild persistent 08/28/202208/11 Asthma, severe persistent 08/28/2022 Stem cell transplant candidate 08/17/2019 09/02/2019 documented as of this encounter (statuses as of 12/12/2023) Immunizations Name Administration Dates Next Due COVID-19 mRNA, LNP-s, No Pre serve, 2-Dose Series ([employer]) 01/17/2021,08/05/2020,07/08/2020 COVID-19, LNP-s, No Preserve , Bryant-sucrose, Ages 12+ ([employer]) 09/26/2021 DTaP Dipth/Tet/Acell Pertussis ([employer]), Peds 02/23/2021,11/11/2020,09/09/2020 [...] Mobile Phlebotomy [facility] [address] [place] [address] Mvmg, Gml Mobile Home Draw [address] [place] [address] 12/19/2023 8:45 AM EDT Hem/Onc Treatment Hematology/Oncology Treatment, [address] [place] [phone] Kenyatta, Chair 9 Hem Onc Scenery [address] [place] [address] [place] [address] 12/25/2023 7:05 AM EDT Laboratory Lab Mobile Phlebotomy [facility] [address] [place] [address] [address] Mvmg, Gml Mobile Home Draw [address] [place] [address] 12/26/2023 1:15 PM EDT Hem/Onc Treatment Hematology/Oncology Treatment, [place] 200 [facility] [place] [address] Kenyatta, Chair 2 Hem Onc Scenery [address] [facility] [address] 01/01/2024 7:05 AM EDT Laboratory Lab Mobile Phlebotomy [facility] [address] [employer], [place] [address] Mvmg, Gml Mobile Home Draw [address] [place], [place] [address] 01/02/2024 2:00 PM EDT Hem/Onc Treatment Hematology/Oncology Treatment, [place] [address] [place] [address] Kenyatta, Chair 5 Hem Onc Scenery [address] [place] [address] 01/08/2024 7:00 AM EDT Laboratory Lab Mobile Phlebotomy [facility] [address] [employer] [address] [place], [place] [address] Mvmg, Gml Mobile Home Draw [address] [place], [place] [address] 01/15/2024 7:05 AM EDT Laboratory Lab Mobile Phlebotomy [facility] [address] [employer] [place] [address] Mvmg, Gml Mobile Home Draw [address] [place], [place] [address] 01/22/2024 7:05 AM EDT Laboratory Lab Mobile Phlebotomy [facility] [address] [place] [address] Mvmg, Gml Mobile Home Draw [address] [place] [address] 01/29/2024 7:05 AM EDT Laboratory Lab Mobile Phlebotomy [facility] [address] [place] [address] Mvmg, Gml Mobile Home Draw [address] [place] [address] 02/05/2024 7:00 AM EDT Laboratory Lab Mobile Phlebotomy [facility] [address] [place] [address] Mvmg, Gml Mobile Home Draw [address] [place] [address] 02/05/2024 8:40 AM EDT Office Visit Neurology Amena You [place] [address] [place] [address] [address] Octavia Goins PA-C 200 [address] [place], [place] [address] 02/07/2024 8:00 AM EDT Office Visit Rheumatology [address] [place] [phone] Darnell Higgins MD [address] [place] [address] [place], [place] [address] 02/12/2024 7:05 AM EDT Laboratory Lab Mobile Phlebotomy [facility] [address] [place], [place] [address] Mvmg, Gml Mobile Home Draw [address] [place], [place] [address] 02/19/2024 7:05 AM EDT Laboratory Lab Mobile Phlebotomy [facility] [address] [employer] [place], [place] [address] Mvmg, Gml Mobile Home Draw [address] [place], [place] [address] 02/26/2024 7:05 AM EDT Laboratory Lab Mobile Phlebotomy [facility] [address] [place], [place] [address] Mvmg, Gml Mobile Home Draw [address] [place], [place] [address] 03/04/2024 7:00 AM EDT Laboratory Lab Mobile Phlebotomy M[facility] [address] [place], [place] [address] Mvmg, Gml Mobile Home Draw [address] [place], [place] [address] 03/05/2024 10:45 AM EDT Office Visit Hematology/Oncology [employer] [address] [place] [address] Morgan Vásquez MD [address] [place] [address], [place] [address] 03/11/2024 7:05 AM EDT Laboratory Lab Mobile Phlebotomy [facility] [address] [place] [address] Mvmg, Gml Mobile Home Draw [address] [place] [address] 03/18/2024 7:05 AM EST Laboratory Lab Mobile Phlebotomy [facility] [address] [place] [address] Mvmg, Gml Mobile Home Draw 2520 [facility] [place] [address] 03/25/2024 7:05 AM EST Laboratory Lab Mobile Phlebotomy [facility] [address] [place] [address] Mvmg, Gml Mobile Home Draw [address] [place] [address] 04/01/2024 7:00 AM EST Laboratory Lab Mobile Phlebotomy [facility] [address] [place] [address] Mvmg, Gml Mobile Home Draw [address] [place] [address] 04/08/2024 7:05 AM EST Laboratory Lab Mobile Phlebotomy [facility] [address] [place] [address] Mvmg, Gml Mobile Home Draw [address] [place] [address] 04/15/2024 7:05 AM EST Laboratory Lab Mobile Phlebotomy [facility] [address] [place] [address] Mvmg, Gml Mobile Home Draw [address] [place] [address] 04/22/2024 7:05 AM EST Laboratory Lab Mobile Phlebotomy [facility] [address] [place] [address] Mvmg, Gml Mobile Home Draw [address] [place] [address] 04/29/2024 7:05 AM EST Laboratory Lab Mobile Phlebotomy [facility] [address] [place] [address] Mvmg, Gml Mobile Home Draw 2520 [facility] [place] [address] 05/05/2024 7:05 AM EST Laboratory Lab Mobile Phlebotomy [facility] [address] [facility] [place] [address] Mvmg, Gml Mobile Home Draw 2520 [place] [address] 09/02/2024 8:20 AM EDT Office Visit Pulmonary Medicine, [facility] 132 [facility] [place] [address] Ish Caba MD [address] [place] [address] 05/03/2025 7:40 AM EST Office Visit Dermatology [address] [place] [address] Albina Romo PA-C [address] [place] [address] [place] [address] Health Maintenance Due Date Last Done Comments [...] this encounter Medical Devices Implanted Type Area Appraisal Coordinator Device Identifier Shelf Expiration Date Model / Serial / Lot Mesh Plug Xlarge [id number] - [id number] Implanted:Qty: 1 on 12/09/2020 by John Zaragoza MD at OR [facility] Left: Groin CR BARD : DAVOL 05/09/2023 [id number] / / [id number] documented as of this encounter Visit Diagnoses Diagnosis Multiple myeloma not having achieved remission (HCC)- Primary Multiple myeloma, without mention of having achieved remission Encounter for adjustment and management of vascular access device documented in this encounter Administered Medications Active Administered Medications - up to 3 most recent administrations Medication Order MAR Action Action Date Dose Rate Site diphenhydrAMINE (Benadryl) inj 50 mg 50 mg, IV Push, ONCE PRN Other, Hypersensitivity Reaction, Starting on Lilibeth 12/12/23 at 1127, Until Sat12/13/23 at 1126, For 24 hours EPINEPHrine 1 MG/ML inj 0.3 mg 0.3 mg, Intramuscular, ONCE PRN Other, Hypersensitivity Reaction or Anaphylaxis, Starting on Lilibeth 12/12/23 at 1127, Until Sat12/13/23 at 1126, For 24 hours hEParin 100 UNIT/ML Lock Flush inj 500 Units 500 Units (5 mL), IV Lock, PRN Other, IV Flush, Starting on Sat12/12/23 at 1127, Until Sat12/13/23 at 1126, For 24 hours, Do not flush if lock, PICC, or central line not in place; IV infusing or unable to flush. Hydrocortisone Sod Suc (PF) (Solu-Cortef) inj 100 mg 100 mg, IV Push, ONCE PRN Other, Hypersensitivity Reaction, Starting on Sat12/12/23 at 1127, Until Sat12/13/23 at 1126, For 24 hours meperidine (Demerol) 25 MG/ML inj 25 mg 25 mg, IV Push, ONCE PRN Shivering, Starting on Sat12/12/23 at 1127, Until Sat12/13/23 at 1126, For 24 hours NSS infusion FOR HYDRATION Intravenous, at 50 mL/hr Administer over 10 Hours, CONTINUOUS, Starting on Sat12/12/23 at 1200, Until Discontinued Start Infusion 12/12/2023 11:46 AM EDT 500 mL 50 mL/hr sodium chloride 0.9 % flush central line 10 mL 10 mL, IV Push, PRN Other, IV Flush, Starting on Sat12/12/23 at 1127, Until Sat12/13/23 at 1126, For 24 hours, Do not flush if lock, PICC, or central line not in place; IV infusing or unable to flush. Inactive Administered Medications - up to 3 most recent administrations Medication Order MAR Action Action Date Dose Rate Site Acetaminophen (Tylenol) tab 650 mg 650 mg, Oral, ONCE, On Sat12/12/23 at 1230, For 1 dose, Maximum of [...] if not tolerated., ONCE, 1 dose, On Sat12/12/23 at 1200 Start Infusion 12/12/2023 12:26 PM EDT 740 mg 517.4 mL/hr Daratumumab-hyaluronida se-fihj (Darzalex Faspro) 1800 mg-96509 units/ 15 ml subcut inj 15 mL, [...] 11:47 AM EDT 1,000 mL 500 mL/hr ondansetron [...] Power of Attor coco? No Care Teams Chocolate Production Machine Operator Relationship Specialty Start Date End Date Michael Collins MD [address] [place] [address] [place] [address] PCP - General Internal Medicine 03/01/14 documented as of this encounter
--- OUTSIDE RECORDS SUMMARY | 2024-03-26 16:28 | External Medical Summary | Summary of Care ---
Author Name Unknown Organization [facility] Address [address] [facility] [address] Phone [phone] Care Team Providers Care Criminal Investigator Name Role Phone Michael Collins MD Primary Care Provi zehra Reason for Visit * Reason Comments Chemotherapy Cytoxan/Darzalex Fas pro * Episode Based Medications (Routine) - Authorized Specialty Diagnoses / Procedures Referred By Contac t Referred To Contact Diagnoses Multiple myeloma not having achieved remission (HCC) Procedures [place] DARATUMUMAB, HYALURONIDASE [place] INJ, CYCLOPHOSPHAMIDE, NOS Morgan Vásquez MD [address] [place] [address] Anc Hem/Onc Amena You DEPT CLOSED - 03/26/23 200 [facility] [place] [address] Referral ID Status Reason Start Date Expiration Date V isits Requested Visits Authorized [id number] Authorized 05/28/2022 05/12/2099 99 99 Encounter Details Date Type Department Care Team (Latest Contact Info) Description 11/15/2023 8:30 AM EDT Hem/Onc Treatment Hematology/Oncolog y Treatment, [place] [address] [place] [address] Kenyatta, Chair 11 Hem Onc Scenery 200 Amena Osman [place] [address] Multiple myeloma not having achieved remission (HCC)*; Encounter for antineoplastic chemotherapy Allergies No known active allergiesdocumented as of this encounter (statuses as of 12/18/2023) Medications Medication Sig Dispensed Refills Start Date End Date Status THEOPHYLLINE ER 450 MG PO [id number]:2 tablet at bedtime Take by mouth. Indications: [...] nostril at bedtime. PATIENT INFORMATION: Kris Galvin [address] [place] [address] [employer]: [employer] ORDER: Please start nocturnal oxygen via nasal [...] signed) Ish Caba MD Pulmonary Medicine, [address] [place] [address] [place] [facility] Medical License Number: [id number] 1 Each 09/21/2022 Active metFORMIN HCl ER [...] mRNA, LNP-s, No Pre serve, 2-Dose Series ([employer]) 01/17/2021,08/05/2020,07/08/2020 COVID-19, LNP-s, No Preserve , Bryant-sucrose, Ages 12+ (WP Engine) 09/26/2021 DTaP Dipth/Tet/Acell Pertussis (Infanrix), Peds 02/23/2021,11/11/2020,09/09/2020 [...] 8:45 AM EDT Hem/Onc Treatment Hematology/Oncology Treatment, [place] 200 [place] [address] Park, Chair 9 Hem Onc Scenery 200 [facility] [place] [address] 12/25/2023 7:05 AM EDT Laboratory Lab Mobile Phlebotomy [facility] [email or web address] [address] Mvmg, Gml Mobile Home Draw [email or web address] [address] 12/26/2023 1:15 PM EDT Hem/Onc Treatment Hematology/Oncology Treatment, [place] 200 [place] [address] Kenyatta, Chair 2 Hem Onc Scenery 200 [facility] [place] [address] 01/01/2024 7:05 AM EDT Laboratory Lab Mobile Phlebotomy [facility] [email or web address] [address] Mvmg, Gml Mobile Home Draw [email or web address] [address] 01/02/2024 2:00 PM EDT Hem/Onc Treatment Hematology/Oncology Treatment, [place] [address] [place] [address] Park, Chair 5 Hem Onc Scenery 200 [facility] [place] [address] 01/08/2024 7:00 AM EDT Laboratory Lab Mobile Phlebotomy [facility] [email or web address] [address] Mvmg, Gml Mobile Home Draw [email or web address] [address] 01/09/2024 8:30 AM EDT Hem/Onc Treatment Hematology/Oncology Treatment, [place] [address] [place] [address] Park, Chair 9 Hem Onc Scenery 200 [facility] [place] [address] 01/15/2024 7:05 AM EDT Laboratory Lab Mobile Phlebotomy [facility] [email or web address] [address] Mvmg, Gml Mobile Home Draw [address] [facility] [place] [address] 01/22/2024 7:05 AM EDT Laboratory Lab Mobile Phlebotomy [facility] [address] [facility] [place] [address] Mvmg, Gml Mobile Home Draw [address] [facility] [place] [address] 01/29/2024 7:05 AM EDT Laboratory Lab Mobile Phlebotomy [facility] [address] [place] [address] Mvmg, Gml Mobile Home Draw [address] [facility] [place] [address] 02/05/2024 7:00 AM EDT Laboratory Lab Mobile Phlebotomy [facility] [address] [facility] [place], [place] [address] Mvmg, Gml Mobile Home Draw [address] [facility] [place] [address] 02/05/2024 8:40 AM EDT Office Visit Neurology [facility] 200 [facility], [place] [address] Octavia Goins PA-C 200 [facility] [place] [address] 02/07/2024 8:00 AM EDT Office Visit Rheumatology [address] [place] [phone] Darnell Higgins MD 25[address] [facility] [place] [address] 02/12/2024 7:05 AM EDT Laboratory Lab Mobile Phlebotomy [facility] [address] [employer] [facility] [place] [address] Mvmg, Gml Mobile Home Draw [address] [facility] [place] [address] 02/19/2024 7:05 AM EDT Laboratory Lab Mobile Phlebotomy M[facility] [address] [facility] [place] [address] Mvmg, Gml Mobile Home Draw [address] [facility] [place] [address] 02/26/2024 7:05 AM EDT Laboratory Lab Mobile Phlebotomy [facility] [address] [place] [address] Mvmg, Gml Mobile Home Draw [address] [facility] [place] [address] 03/04/2024 7:00 AM EDT Laboratory Lab Mobile Phlebotomy [facility] [address] [facility] [place] [address] Mvmg, Gml Mobile Home Draw [address] [facility] [place] [address] 03/05/2024 10:45 AM EDT Office Visit Hematology/Oncology [facility] 200 [place] [address] Morgan Vásquez MD 200 [place] [address] 03/11/2024 7:05 AM EDT Laboratory Lab Mobile Phlebotomy [facility] [address] [place] [address] Mvmg, Gml Mobile Home Draw 25[address] [facility] [place] [address] 03/18/2024 7:05 AM EST Laboratory Lab Mobile Phlebotomy [facility] [address] [facility] [place] [address] Mvmg, Gml Mobile Home Draw 25[address] [facility] [place] [address] 03/25/2024 7:05 AM EST Laboratory Lab Mobile Phlebotomy [facility] [address] [place] [address] Mvmg, Gml Mobile Home Draw 25[address] Gen [facility] [place] [address] 04/01/2024 7:00 AM EST Laboratory Lab Mobile Phlebotomy M[facility] [address] [facility] [place] [address] Mvmg, Gml Mobile Home Draw [address]20 [place] [address] 04/08/2024 7:05 AM EST Laboratory Lab Mobile Phlebotomy M[facility] [address] [place] [address] Mvmg, Gml Mobile Home Draw [address] [place] [address] 04/15/2024 7:05 AM EST Laboratory Lab Mobile Phlebotomy [facility] [address] [place] [address] Mvmg, Gml Mobile Home Draw [address] [place] [address] 04/22/2024 7:05 AM EST Laboratory Lab Mobile Phlebotomy [facility] [address] [facility] [place] [address] Mvmg, Gml Mobile Home Draw [address] [place] [address] 04/29/2024 7:05 AM EST Laboratory Lab Mobile Phlebotomy [facility] [address] [facility] [place] [address] Mvmg, Gml Mobile Home Draw [address] [place] [address] 05/05/2024 7:05 AM EST Laboratory Lab Mobile Phlebotomy [facility] [address] [place] [address] Mvmg, Gml Mobile Home Draw [address] [place] [address] 09/02/2024 8:20 AM EDT Office Visit Pulmonary Medicine, [facility] [address] [place] [address] Ish Caba MD [address] [place] [address] 05/03/2025 7:40 AM EST Office Visit Dermatology [address] [place] [address] Albina Romo PA-C [address] [place] [address] [place] [address] Health Maintenance Due Date Last Done Comments [...] Medical Devices Implanted Type Area Director Of Cardiology Service Line Device Identifier Shelf Expiration Date Model / Serial / Lot Mesh Plug Xlarge [id number] - [id number] Implanted:Qty: 1 on 12/09/2020 by John Zaragoza MD at OR [facility] Left: Groin CR BARD : DAVOL 05/09/2023 [id number] / / [id number] documented as of this encounter Results * (ABNORMAL) SERUM FREE LIGHT CHAINS (11/13/2023 7:55 AM EDT) Pathologist [facility] [place] Free Light Chains, Serum 21.50(H) 3.30 - 19.40 mg/L 11/15/2023 10:34 AM EDT LABORATORY [facility] Lambda Free Light Chains, Serum 1.36(L) 5.71 - 26.30 mg/L 11/15/2023 10:34 AM EDT LABORATORY [facility] Stephan Lambda Free Light Chains Ratio 15.81(H) 0.26 - 1.65 11/15/2023 10:34 AM EDT [facility]ORY [facility] [place] Venous blood specimen / Unknown Venipuncture / Unknown 11/13/2023 7:55 AM EDT 11/13/2023 11:12 AM EDT Morgan Vásquez MD LAB BLOOD ORDERABLES [facility]ATORY [facility] [address] [place] [address] * (ABNORMAL) SERUM PROTEIN ELECTROPHORESIS REFLEX PROFILE (11/13/2023 7:55 AM EDT) [facility] Normal/Abnormal Abnormal(A) Normal 11/18/19 12:49 PM [...] MD LAB BLOOD ORDERABLES Performing Organization Address [facility] Co de Phone Number [facility]ATORY [facility] [address] [place] [address] * (ABNORMAL) IMMUNOGLOBULIN QUANTITATIVE (11/13/2023 7:55 AM [...] MD LAB BLOOD ORDERABLES Performing Organization Address [facility] Co de Phone Number [facility]ATORY [facility] [address] [place] [address] documented in this encounter Visit Diagnoses Diagnosis [...] 517.4 mL/hr Daratumumab-hyaluronida se-fihj (Darzalex Faspro) 1800 mg-76593 units/ 15 ml subcut inj 15 mL, [...] Power of Attor coco? No Care Teams Criminal Investigator Relationship Specialty Start Date End Date Michael Collins MD [address] [place] [address] [place] [address] PCP - General Internal Medicine 03/01/14 documented as of this encounter
--- OUTSIDE RECORDS SUMMARY | 2024-03-26 16:28 | External Medical Summary | Summary of Care ---
Author Name Unknown Organization [facility] Address [address] [facility] [address] Phone [phone] Care Team Providers Care Lead Relay Tester Name Role Phone Michael Collins MD Primary Care Provi zehra Reason for Visit * Reason Comments Chemotherapy Cytoxan/Darzalex Fas pro * Episode Based Medications (Routine) - Authorized Specialty Diagnoses / Procedures Referred By Contac t Referred To Contact Diagnoses Multiple myeloma not having achieved remission (HCC) Procedures [place] DARATUMUMAB, HYALURONIDASE [place] INJ, CYCLOPHOSPHAMIDE, NOS Morgan Vásquez MD [address] [place] [address] Anc Hem/Onc Amena You DEPT CLOSED - 03/26/23 200 [facility] [place] [address] Referral ID Status Reason Start Date Expiration Date V isits Requested Visits Authorized [id number] Authorized 05/28/2022 05/12/2099 99 99 Encounter Details Date Type Department Care Team (Latest Contact Info) Description 11/15/2023 8:30 AM EDT Hem/Onc Treatment Hematology/Oncolog y Treatment, [place] [address] [place] [place] [address] Kenyatta, Chair 11 Hem Onc Scenery 200 Amena Osman [place] [address] Multiple myeloma not having achieved remission (HCC)*; Encounter for antineoplastic chemotherapy Allergies No known active allergiesdocumented as of this encounter (statuses as of 12/18/2023) Medications Medication Sig Dispensed Refills Start Date End Date Status THEOPHYLLINE ER 450 MG PO [id number]:2 tablet at bedtime Take by mouth. Indications: [...] Take by mouth. Active Multiple Vitamins-Minerals ([facility] IMMUNITY SUPPORT) CHEW Take by mouth. [...] nostril at bedtime. PATIENT INFORMATION: Kris Galvin [address] [place] [address] [employer]: [employer] ORDER: Please start nocturnal oxygen via [...] signed) Ish Caba MD Pulmonary Medicine, [address] [place] [address] [place] [facility] Medical License Number: [id number] 1 Each 09/21/2022 Active metFORMIN HCl ER [...] mRNA, LNP-s, No Pre serve, 2-Dose Series ([employer]) 01/17/2021,08/05/2020,07/08/2020 COVID-19, LNP-s, No Preserve , Bryant-sucrose, Ages 12+ (Convene) 09/26/2021 DTaP Dipth/Tet/Acell Pertussis (Infanrix), Peds 02/23/2021,11/11/2020,09/09/2020 [...] 8:45 AM EDT Hem/Onc Treatment Hematology/Oncology Treatment, [place] 200 [place] [address] Park, Chair 9 Hem Onc Scenery 200 [facility] [place] [address] 12/25/2023 7:05 AM EDT Laboratory Lab Mobile Phlebotomy [facility] [address] [employer] [address] Mvmg, Gml Mobile Home Draw [address] [place] [address] 12/26/2023 1:15 PM EDT Hem/Onc Treatment Hematology/Oncology Treatment, [place] 200 [facility] [place] [address] Kenyatta, Chair 2 Hem Onc Scenery 200 [facility] [place] [address] 01/01/2024 7:05 AM EDT Laboratory Lab Mobile Phlebotomy M[facility] [address] [place] [address] Mvmg, Gml Mobile Home Draw [address] [place] [address] 01/02/2024 2:00 PM EDT Hem/Onc Treatment Hematology/Oncology Treatment, [place] 200 [facility] [address] Park, Chair 5 Hem Onc Scenery 200 [facility] [place] [address] 01/08/2024 7:00 AM EDT Laboratory Lab Mobile Phlebotomy M[facility] [address] [place] [address] Mvmg, Gml Mobile Home Draw [address] [place] [address] 01/09/2024 8:30 AM EDT Hem/Onc Treatment Hematology/Oncology Treatment, [place] 200 [facility] [address] Park, Chair 9 Hem Onc Scenery 200 [facility] [place] [address] 01/15/2024 7:05 AM EDT Laboratory Lab Mobile Phlebotomy M[facility] [address] [place] [address] Mvmg, Gml Mobile Home Draw 2520 [facility] [place] [address] 01/22/2024 7:05 AM EDT Laboratory Lab Mobile Phlebotomy M[facility] [address] [facility] [place] [address] Mvmg, Gml Mobile Home Draw [address] [facility] [place] [address] 01/29/2024 7:05 AM EDT Laboratory Lab Mobile Phlebotomy M[facility] [address] [place] [address] Mvmg, Gml Mobile Home Draw 2520 [facility] [place] [address] 02/05/2024 7:00 AM EDT Laboratory Lab Mobile Phlebotomy M[facility] [address] [facility] [place], [place] [address] Mvmg, Gml Mobile Home Draw [address] [facility] [place] [address] 02/05/2024 8:40 AM EDT Office Visit Neurology [facility] 200 [facility], [place] [address] Octavia Goins PA-C 200 [facility] [place] [address] 02/07/2024 8:00 AM EDT Office Visit Rheumatology [address] [place] [phone] Darnell Higgins MD 2520 [facility] [place] [address] 02/12/2024 7:05 AM EDT Laboratory Lab Mobile Phlebotomy M[facility] [address] [employer] [facility] [place] [address] Mvmg, Gml Mobile Home Draw 2520 [facility] [place] [address] 02/19/2024 7:05 AM EDT Laboratory Lab Mobile Phlebotomy M[facility] [address] [facility] [place] [address] Mvmg, Gml Mobile Home Draw 2520 [facility] [place] [address] 02/26/2024 7:05 AM EDT Laboratory Lab Mobile Phlebotomy [facility] [address] [place] [address] Mvmg, Gml Mobile Home Draw 2520 [facility] [place] [address] 03/04/2024 7:00 AM EDT Laboratory Lab Mobile Phlebotomy M[facility] [address] [facility] [place] [address] Mvmg, Gml Mobile Home Draw 25[address] [facility] [place] [address] 03/05/2024 10:45 AM EDT Office Visit Hematology/Oncology [facility] 200 [place] [address] Morgan Vásquez MD 200 [place] [address] 03/11/2024 7:05 AM EDT Laboratory Lab Mobile Phlebotomy [facility] [address] [place] [address] Mvmg, Gml Mobile Home Draw 2520 [facility] [place] [address] 03/18/2024 7:05 AM EST Laboratory Lab Mobile Phlebotomy MVMG [address] [facility] [place] [address] Mvmg, Gml Mobile Home Draw 2520 [facility] [place] [address] 03/25/2024 7:05 AM EST Laboratory Lab Mobile Phlebotomy [facility] [address] [place] [address] Mvmg, Gml Mobile Home Draw [address] Gen [facility] [place] [address] 04/01/2024 7:00 AM EST Laboratory Lab Mobile Phlebotomy M[facility] 25[address] [facility] [place] [address] Mvmg, Gml Mobile Home Draw 2520 [place] [address] 04/08/2024 7:05 AM EST Laboratory Lab Mobile Phlebotomy M[facility] [address] [place] [address] Mvmg, Gml Mobile Home Draw 25[address] [place] [address] 04/15/2024 7:05 AM EST Laboratory Lab Mobile Phlebotomy M[facility] [address] [place] [address] Mvmg, Gml Mobile Home Draw [address] [place] [address] 04/22/2024 7:05 AM EST Laboratory Lab Mobile Phlebotomy M[facility] [address] [facility] [place] [address] Mvmg, Gml Mobile Home Draw [address] [place] [address] 04/29/2024 7:05 AM EST Laboratory Lab Mobile Phlebotomy M[facility] [address] [facility] [place] [address] Mvmg, Gml Mobile Home Draw [address] [place] [address] 05/05/2024 7:05 AM EST Laboratory Lab Mobile Phlebotomy M[facility] [address] [place] [address] Mvmg, Gml Mobile Home Draw [address] [place] [address] 09/02/2024 8:20 AM EDT Office Visit Pulmonary Medicine, [facility] [address] [place] [address] Ish Caba MD [address] [place] [address] 05/03/2025 7:40 AM EST Office Visit Dermatology [address] [place] [address] Albina [place] PA-C [address] [place] [address] [place] [address] Health Maintenance Due Date Last Done Comments [...] this encounter Medical Devices Implanted Type Area Airport Duty Manager Device Identifier Shelf Expiration Date Model / Serial / Lot Mesh Plug Xlarge [id number] - [id number] Implanted:Qty: 1 on 12/09/2020 by John Zaragoza MD at OR [facility] Left: Groin CR BARD : DAVOL 05/09/2023 [id number] / / [id number] documented as of this encounter Results * (ABNORMAL) SERUM FREE LIGHT CHAINS (11/13/2023 7:55 AM EDT) Pathologist [facility] [place] Free Light Chains, Serum 21.50(H) 3.30 - 19.40 mg/L 11/15/2023 10:34 AM EDT LABORATORY [facility] Lambda Free Light Chains, Serum 1.36(L) 5.71 - 26.30 mg/L 11/15/2023 10:34 AM EDT LABORATORY [facility] [place] Lambda Free Light Chains Ratio 15.81(H) 0.26 - 1.65 11/15/2023 10:34 AM EDT LABORATORY [facility] Blood Venous blood specimen / Unknown Venipuncture / Unknown 11/13/2023 7:55 AM EDT 11/13/2023 11:12 AM EDT Morgan Vásquez MD LAB BLOOD ORDERABLES LABORATORY [facility] [address] [place] [address] * (ABNORMAL) SERUM PROTEIN ELECTROPHORESIS REFLEX PROFILE (11/13/2023 7:55 AM EDT) [facility] Normal/Abnormal Abnormal(A) Normal 11/18/19 12:49 PM EDT [...] LAB BLOOD ORDERABLES Performing Organization Address [facility] Co de Phone Number LABORATORY [facility] [address] [place] [address] * (ABNORMAL) IMMUNOGLOBULIN QUANTITATIVE (11/13/2023 7:55 AM [...] LAB BLOOD ORDERABLES Performing Organization Address [facility] Co de Phone Number LABORATORY [facility] [address] [place] [address] documented in this encounter Visit Diagnoses Diagnosis [...] 517.4 mL/hr Daratumumab-hyaluronida se-fihj (Darzalex Faspro) 1800 mg-92236 units/ 15 ml subcut inj 15 mL, [...] of Attor coco? No Care Teams Lead Relay Tester Relationship Specialty Start Date End Date Michael Collins MD [address] [place] [address] [place] [address] PCP - General Internal Medicine 03/01/14 documented as of this encounter
--- OUTSIDE RECORDS SUMMARY | 2024-03-26 16:28 | External Medical Summary ---
Author Name Unknown Address Unknown Organization K01:LAB[facility]ATORY [facility] [address] [facility] [address] [facility] [address] Laboratory Report Ordering Provider Test Date Status KALPESH SERRANO 12/18/2023 08:07:00 Final Observation Date Value Abnormality Reference (Units ) Status WBC, Total 12/18/2023 08:07:00 5.29 4.00-10.80 (K/uL) Final RBC 12/18/2023 08:07:00 4.27 4.50-5.25 (M/uL) Final Hemoglobin 12/18/2023 08:07:00 15.0 14.0-16.8 (g/dL) Final HCT 12/18/2023 08:07:00 44.2 40.0-48.4 (%) Final MCV 12/18/2023 08:07:00 103.5 82.0-99.5 (fL) Final MCH 12/18/2023 08:07:00 35.1 27.0-34.0 (pg) Final MCHC 12/18/2023 08:07:00 33.9 32.0-36.0 (g/dL) Final RDW 12/18/2023 08:07:00 14.5 11.5-15.5 (%) Final Platelets 12/18/2023 08:07:00 123 Below low normal 140-400 (K/uL) Final MPV 12/18/2023 08:07:00 11.2 6.6-11.1 (fL) Final Nucleated erythrocytes/100 leukocytes [Ratio] in Blood by Automated count 12/18/2023 08:07:00 0 <=0 (/100 WBCs) Final Performing Location LAB[facility]ORY [facility] [address] [place] [address]
--- OUTSIDE RECORDS SUMMARY | 2024-03-26 16:29 | External Medical Summary | Summary of Care ---
Author Name Unknown Organization [facility] Address [address] [facility] [place] [address] Phone [phone] Care Team Providers Care Html Developer Name Role Phone Michael Collins MD Primary Care Provi zehra Reason for Visit * Reason Comments Follow Up Treatment Encounter Details Date Type Department Care Team (Latest Contact Info) Description 12/12/2023 11:15 AM EDT Office Visit Hematology/Oncology [facility] [place] [address] [facility] [place] [address] Morgan Vásquez MD [address] [facility] [place] [address] Multiple myeloma not having achieved remission (HCC)*; Supraclavicular lymphadenopathy Allergies No known active allergiesdocumented as of this encounter (statuses as of 12/12/2023) Medications Medication Sig Dispensed Refills Start Date End Date Status THEOPHYLLINE ER 450 MG PO CO34Mthsclhyxvq:2 tablet at bedtime Take by mouth. Indications: [...] CAPS Take by mouth. Active Multiple Vitamins-Minerals ([facility] IMMUNITY SUPPORT) CHEW Take by mouth. Active [...] nostril at bedtime. PATIENT INFORMATION: Kris Galvin [address] [place] [address] [employer] Secure Command: [employer]/TBD ORDER: Please start nocturnal oxygen via nasal [...] signed) Ish Caba MD Pulmonary Medicine, [address] [place] [address] [place] [facility] Medical License Number: [id number] 1 Each 09/21/2022 Active metFORMIN HCl ER [...] mRNA, LNP-s, No Pre serve, 2-Dose Series (VoxPopMe) 01/17/2021,08/05/2020,07/08/2020 COVID-19, LNP-s, No Preserve , Bryant-sucrose, [...] Sign Reading Time Taken Comments Blood Pressure 119/86 12/12/2023 11:04 AM EDT Pulse 79 12/12/2023 11:04 AM EDT Temperature 36.2 C (97.1 F) 12/12/2023 11:04 AM E DT Respiratory Rate - - Oxygen Saturation 93% 12/12/2023 11:04 AM EDT Inhaled Oxygen Concentration - - Weight 132.9 kg (293 lb) 12/12/2023 11:04 AM EDT Height - - Body Mass [...] Progress Notes * Morgan Vásquez MD - 12/12/2023 11:15 AM EDT Hematology/Oncology Outpatient Clinic note [facility] [place] [address] [facility] [place] [address] Name: Kris Galvin Date: 08/21/2023 CHIEF COMPLAINT: [...] -he had autologous stem cell transplant at [facility] on 09/01/2019. - Induction treatment with Revlimid, [...] significant increase in M spike to 5.98. [place] and lambda shows significant increase in the [...] 32, free lambda light chain --> 8.4, [place]/Lambda ratio 3.8. (07/29/2020). -IgG 1163, IgA 44, [...] we continue Darzalex Faspro every 4 weekly. Previously palpable left supraclavicular lymph node is slightly reduced in size, no local discomfort, no ENT symptoms, no nausea no vomiting, chronic musculoskeletal symptoms, he is on nasal cannula last supplement oxygen at 2 liters/minute, no abdominal symptoms, good appetite, current weight is around 293 lb. Does complain of tingling and numbness of the extremities which is stable. No fever, no infections. No bleeding from any sites. 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 Concussion with loss of consciousness of 30 minutes or less 01/03/2012 Degeneration of lumbosacral intervertebral disc 04/14/2008 Encounter for antineoplastic chemotherapy 08/31/2019 Generalized osteoarthritis 04/14/2008 History of autologous stem cell transplant (HCC) 09/02/2019 T 0 = 09/01/2019 Preparative Regimen: Melphalan 200 mg/m2 Stem Cell Dose: 5.96 X 10^6 CD 34/kg INFORMATION 12/28/11 Jacoby Multiple myeloma not having achieved remission (HCC) 12/30/2020 Past Surgical History: Procedure Laterality Date BONE MARROW/STEMCELL XPLNT, AUTOLOG 09/01/2019 COLONOSCOPY, DIAGNOSTIC (RECTUM) 03/03/2018 normal, repeat 5 yrs/COLONOSCOPY FLEXIBLE PROXIMAL DIAGNOSTIC performed by Bryanna Alberts MD at ENDOSCOPY [facility] IR BIOPSY 08/07/2019 IR BIOPSY 12/04/2019 IR BIOPSY 07/29/2020 IR BIOPSY 09/25/2023 IR BIOPSY 10/11/2023 IR VENOUS ACCESS NON-MEDIPORT 08/24/2019 IR VENOUS ACCESS NON-MEDIPORT 09/21/2019 LAPAROSCOPY; CHOLECYSTECTOMY 2006 REPAIR INITIAL INGUINAL HERNIA REDUCIBLE AGE 5 OR MORE Left 12/09/2020 REPAIR INITIAL INGUINAL HERNIA REDUCIBLE AGE 5 OR MORE performed by John Zaragoza MD at OR [facility] Social History Socioeconomic History Marital status: Spouse name: Yvrose Number of children: 2 Years of education: Not on file Highest education level: Not on file Occupational History Employer: [employer] 1095 Tobacco Use Smoking status: Former Current packs/day: 0.00 Average packs/day: 1 pack/day for 5.5 years (5.5 ttl pk-yrs) Types: Cigarettes Start date: 11/1989 Quit date: 1995 Years since quittin.6 Smokeless tobacco: Never Vaping Use Vaping status: [...] bedtime B COMPLEX FORMULA 1 PO TABS 1 daily MULTIVITAMINS PO CAPS 1 daily FOLIC ACID [...] MG CAPS Take by mouth. Multiple Vitamins-Minerals ([facility] IMMUNITY SUPPORT) CHEW Take by mouth. traZODone [...] nostril at bedtime. PATIENT INFORMATION: Kris Kamar [address] [place] [address] Xplr Software: Pel[employer] Document [employer]/Campus Cellect ORDER: Please start nocturnal oxygen via nasal [...] signed) Ish Caba MD Pulmonary Medicine, [address] [place] [address] [place] [facility] Medical License Number: [id number] 1 Each 0 metFORMIN HCl ER (OSM) [...] week of Darzalex injection. 35 Tablet 2 Ondansetron HCl 8 MG Oral Tablet (Zofran) Take 1 Tablet by mouth every 8 hours as needed for Nausea. 90 Tablet 1 Prochlorperazine Maleate 10 MG Oral Tablet (Compazine) Take 1 Tablet by mouth every 6 hours as needed for Nausea. 60 Tablet 5 metFORMIN HCl ER 500 MG Oral Tablet Extended Release 24 Hour (Glucophage XR) Take 1 Tablet by mouthin the morning and 1 Tablet before bedtime. Pregabalin 25 MG Oral Capsule (Lyrica) 1 tab am and 1 tab pm 60 Capsule 2 Current Facility-Administered Medications Medication Dose Route Frequency Provider Last Rate Last Admin Albuterol Sulfate (Proventil) (2.5 MG/3ML) 0.083% inhalation solution 2.5 mg 2.5 mg Nebulizer PRN Ish Caba MD 2.5 mg at 08/29/23 0750 Albuterol Sulfate (Proventil) (5 MG/ML) 0.5% *conc* inhalation solution 2.5 mg 2.5 mg Nebulizer Ish Singletary MD REVIEW OF SYSTEMS: See HPI - otherwise negative OBJECTIVE: BP 119/86 (BP Site: Left Arm, BP Position: Sitting, BP Cuff Size: Large) | Pulse 79 | Temp 36.2 C(97.1 F) (Tympanic) | Wt 132.9 kg (293 lb) | SpO2 93% | BMI 39.74 kg/m | BSA 2.6 m PHYSICAL EXAM: ECOG: Performance Status 1 = 80-90% Symptoms but nearly ambulatory General Appearance: No acute distress HEENT: Normal - No oral or pharyngeal masses, ulceration or thrush noted Lymph Nodes: Normal - No palpable lymph nodes in the neck or supraclavicular areas Lungs/Thorax: Normal - Clear to auscultation Heart: Normal - Regular rate and rhythm, normal S1, S2, no appreciable murmurs Pulses/Extremities: Normal - 2+ throughout and symmetrical, no edema Neurologic: Normal - Grossly intact LABS: Blood workup done on 09/18/2023: -WBC 6200, H&H of 15.6/47.4, Platelet count 801242 -BUN/Creat: 21/1.1, Calcium 9.5, normal LFT. -Ig, IgA 21, IgM 12 -free kappa light chain --> 47.4, free lambda light chain--> 2.1, Calcium 22.1 -M spike --> 1.09 g/dL. Blood workup done on 12/11/2023: -WBC 4700, Hemoglobin and hematocrit -14.4/42, Platelet count 217776 -BUN/Creat: 18/1.0, Calcium 9.2, normal liver function test. -Ig, IgA 14, IgM 9. -free kappa and lambda light chain and M spike --> pending. IMAGING: PET/CT 08/13/23: IMPRESSION 1. No FDG avid metastatic disease. 2. A few prominent left supraclavicular lymph nodes with mild metabolic uptake, likely reactive. IMPRESSION/PLAN: IgG kappa multiple myeloma Encounter for chemotherapy CIPN Currently receiving SUBQ: Daratumumab 1,800 mg/hyaluronidase 30,000 units once every 4 weeks -tolerating well I reviewed with him regarding the recent the [facility] ER visit, CT scan findings, lucency [...] spike and free kappa light chain noted. Tolerated treatment without significant side effects, no new infectious complications. Will continue current treatment plan Will see him back in the clinic about [address] Morgan Vásquez Hem/Onc (This note was completed using the dictation program Fluency Direct. As such, there may be misspellings word substitutions, or other variations that should not change the essence of the clinical content of this encounter note. If there is need for further clarification, please direct questions to the provider listed above.) documented in this encounter Nursing Notes * Devora Stratton MED ASSIST - 12/12/2023 11:12 AM EDT Patient identifed by name and [...] it for you? ALREADY ACTIVE Filed Vitals: 12/12/23 1104 BP: 119/86 Pulse: 79 Temp: 36.2 C (97.1 F) TempSrc: Tympanic SpO2: 93% Weight: 132.9 kg (293 lb) Patient was instructed to not get [...] Mobile Phlebotomy [facility] [address] [place] [address] [facility], Gml [facility] Home Draw [address] [place] [address] 12/25/2023 7:05 AM EDT Laboratory Lab Mobile Phlebotomy [facility] [address] [place] [address] M[facility]mg, Gml Mobile Home Draw [address] [place] [address] 01/01/2024 7:05 AM EDT Laboratory Lab Mobile Phlebotomy [facility] [address] [place] [address] Mvmg, Gml Mobile Home Draw [address] [place] [address] 01/08/2024 7:00 AM EDT Laboratory Lab Mobile Phlebotomy [facility] [address] [place] [address] Mvmg, Gml Mobile Home Draw [address] [place] [address] 01/15/2024 7:05 AM EDT Laboratory Lab Mobile Phlebotomy [facility] [address] [place] [address] Mvmg, Gml Mobile Home Draw [address] [place] [address] 01/22/2024 7:05 AM EDT Laboratory Lab Mobile Phlebotomy [facility] [address] [place], [place] [address] Mvmg, Gml Mobile Home Draw [address] [place] [address] 01/29/2024 7:05 AM EDT Laboratory Lab Mobile Phlebotomy [facility] [address] [place], [place] [address] Mvmg, Gml Mobile Home Draw [address] [place] [address] 02/05/2024 7:00 AM EDT Laboratory Lab Mobile Phlebotomy [facility] [address] [place], [place] [address] Mvmg, Gml Mobile Home Draw [facility] [place], [place] [address] 02/05/2024 8:40 AM EDT Office Visit Neurology [facility] [address] [facility] [place], [place] [address] Octavia Goins PA-C [address] [facility] [place], [place] [address] 02/07/2024 8:00 AM EDT Office Visit Rheumatology [address] [place] [phone] Darnell Higgins MD [facility] [place], [place] [address] 02/12/2024 7:05 AM EDT Laboratory Lab Mobile Phlebotomy [facility] [address] [place], [place] [address] Mvmg, Gml Mobile Home Draw [address] [place], [place] [address] 02/19/2024 7:05 AM EDT Laboratory Lab Mobile Phlebotomy [facility] [address] [place], [place] [address] Mvmg, Gml Mobile Home Draw [address] [facility] [place] [address] 02/26/2024 7:05 AM EDT Laboratory Lab Mobile Phlebotomy [facility] [address] [facility] [place] [address] Mvmg, Gml Mobile Home Draw [address] [facility] [place] [address] 03/04/2024 7:00 AM EDT Laboratory Lab Mobile Phlebotomy [facility] [address] [place] [address] Mvmg, Gml Mobile Home Draw [address] [place] [address] 03/11/2024 7:05 AM EDT Laboratory Lab Mobile Phlebotomy [facility] [address] [place] [address] Mvmg, Gml Mobile Home Draw [address] [facility] [place] [address] 03/18/2024 7:05 AM EST Laboratory Lab Mobile Phlebotomy [facility] [address] [place] [address] Mvmg, Gml Mobile Home Draw [address] [place] [address] 03/25/2024 7:05 AM EST Laboratory Lab Mobile Phlebotomy [facility] [address] [place] [address] Mvmg, Gml Mobile Home Draw [address] [place] [address] 04/01/2024 7:00 AM EST Laboratory Lab Mobile Phlebotomy [facility] [address] [place] [address] Mvmg, Gml Mobile Home Draw [address] [place] [address] 04/08/2024 7:05 AM EST Laboratory Lab Mobile Phlebotomy [facility] [address] [facility] [place] [address] Mvmg, Gml Mobile Home Draw [address] [facility] [place] [address] 04/15/2024 7:05 AM EST Laboratory Lab Mobile Phlebotomy [facility] [address] [place] [address] Mvmg, Gml Mobile Home Draw [address] [place] [address] 04/22/2024 7:05 AM EST Laboratory Lab Mobile Phlebotomy [facility] [address] [place], [place] [address] Mvmg, Gml Mobile Home Draw [address] [place] [address] 04/29/2024 7:05 AM EST Laboratory Lab Mobile Phlebotomy [facility] [address] [place] [address] Mvmg, Gml Mobile Home Draw [address] [place] [address] 05/05/2024 7:05 AM EST Laboratory Lab Mobile Phlebotomy [facility] [address] [place], [place] [address] Mvmg, Gml Mobile Home Draw [address] [place] [address] 09/02/2024 8:20 AM EDT Office Visit Pulmonary Medicine, [facility] [address] [facility] [place] [address] Ish Caba MD [address] [place] [address] 05/03/2025 7:40 AM EST Office Visit Dermatology [address] [place] [address] Albina Romo PA-C [address] [place] [address] [place] [address] Health Maintenance Due Date Last Done Comments [...] encounter Medical Devices Implanted Type Area Manager Actuarial Device Identifier Shelf Expiration Date Model / Serial / Lot Mesh Plug Xlarge [id number] - [id number] Implanted:Qty: 1 on 12/09/2020 by John Zaragoza MD at OR [facility] Left: Groin CR BARD : DAVOL 05/09/2023 [id number] / / [id number] documented as of this encounter Visit Diagnoses Diagnosis Multiple myeloma not having achieved remission (HCC)- Primary Multiple myeloma, without mention of having achieved remission Supraclavicular lymphadenopathy Enlargement of lymph nodes documented in this encounter Advance Directives * [...] Power of Attor coco? No Care Teams Html Developer Relationship Specialty Start Date End Date Michael Collins MD [address] [place] [address] [place] [address] PCP - General Internal Medicine 03/01/14 documented as of this encounter"
--- OUTSIDE RECORDS SUMMARY | 2024-03-26 16:29 | External Medical Summary | Summary of Care ---
Author Name Unknown Organization [facility] Address [address] [facility] [place] [address] Phone [phone] Care Team Providers Care Director Semiconductor Name Role Phone Michael Collins MD Primary Care Provi zehra Reason for Visit * Reason Comments Chemotherapy Cytoxan/Darzalex Fas pro * Episode Based Medications (Routine) - Authorized Specialty Diagnoses / Procedures Referred By Contac t Referred To Contact Diagnoses Multiple myeloma not having achieved remission (HCC) Procedures OK DARATUMUMAB, HYALURONIDASE OK INJ, CYCLOPHOSPHAMIDE, NOS Morgan Vásquez MD 200 [facility] [place] [address] Anc Hem/Onc Amena You DEPT CLOSED - 03/26/23 200 [facility] [place] [address] Referral ID Status Reason Start Date Expiration Date V isits Requested Visits Authorized [id number] Authorized 05/28/2022 05/12/2099 99 99 Encounter Details Date Type Department Care Team (Latest Contact Info) Description 12/12/2023 11:45 AM EDT Hem/Onc Treatment Hematology/Oncology Treatment, [place] [address] [place] [address] Kenyatta, Chair 4 Hem Onc [address] [place] [address] Multiple myeloma not having achieved remission (HCC)*; Encounter for adjustment and management of vascular access device Allergies No known active allergiesdocumented as of this encounter (statuses as of 12/12/2023) Medications Medication Sig Dispensed Refills Start Date End Date Status THEOPHYLLINE ER 450 MG PO MA58Uchvcsknxtj:2 tablet at bedtime Take by mouth. Indications: [...] Kris Galvin [address] [place] [address] [employer]: [email or web address] ORDER: Please start nocturnal oxygen via nasal [...] signed) Ish Caba MD Pulmonary Medicine, [address] [place] [address] [place] [facility] Medical License Number: [id number] 1 Each 09/21/2022 Active metFORMIN HCl ER [...] mRNA, LNP-s, No Pre serve, 2-Dose Series ([employer]) 01/17/2021,08/05/2020,07/08/2020 COVID-19, LNP-s, No Preserve , Bryant-sucrose, Ages 12+ ([employer]) 09/26/2021 DTaP Dipth/Tet/Acell Pertussis ([employer]), Peds 02/23/2021,11/11/2020,09/09/2020 [...] Mobile Phlebotomy [facility] [address] [place] [address] Mvmg, Gml Mobile Home Draw [address] [place] [address] 12/19/2023 8:45 AM EDT Hem/Onc Treatment Hematology/Oncology Treatment, [address] [place] [phone] Kenyatta, Chair 9 Hem Onc Scenery [address] [place] [address] [place] [address] 12/25/2023 7:05 AM EDT Laboratory Lab Mobile Phlebotomy [facility] [address] [place] [address] Mvmg, Gml Mobile Home Draw [address] [place] [address] 12/26/2023 1:15 PM EDT Hem/Onc Treatment Hematology/Oncology Treatment, [place] 200 [facility] [place] [phone] Kenyatta, Chair 2 Hem Onc Scenery [address] [facility] [place] [address] 01/01/2024 7:05 AM EDT Laboratory Lab Mobile Phlebotomy [facility] [address] [place] [employer], [place] [address] Mvmg, Gml Mobile Home Draw [address] [place], [place] [address] 01/02/2024 2:00 PM EDT Hem/Onc Treatment Hematology/Oncology Treatment, [place] [address] [place] [address] Kenyatta, Chair 5 Hem Onc Scenery [address] [place] [address] 01/08/2024 7:00 AM EDT Laboratory Lab Mobile Phlebotomy [facility] [address] [place], [place] [address] Mvmg, Gml Mobile Home Draw [address] [place], [place] [address] 01/15/2024 7:05 AM EDT Laboratory Lab Mobile Phlebotomy [facility] [address] [place] [address] Mvmg, Gml Mobile Home Draw [address] [place], [place] [address] 01/22/2024 7:05 AM EDT Laboratory Lab Mobile Phlebotomy [facility] [address] [place] [address] Mvmg, Gml Mobile Home Draw [address] [place] [address] 01/29/2024 7:05 AM EDT Laboratory Lab Mobile Phlebotomy [facility] [address] [place] [address] Mvmg, Gml Mobile Home Draw [address] [place] [address] 02/05/2024 7:00 AM EDT Laboratory Lab Mobile Phlebotomy [facility] [address] [place] [address] Mvmg, Gml Mobile Home Draw [address] [place] [address] 02/05/2024 8:40 AM EDT Office Visit Neurology [facility] [address] [address] Octavia Goins PA-C [address] [place], [place] [address] 02/07/2024 8:00 AM EDT Office Visit Rheumatology [address] [place] [phone] Darnell Higgins MD [address] [place], [place] [address] 02/12/2024 7:05 AM EDT Laboratory Lab Mobile Phlebotomy [facility] [address] [place], [place] [address] Mvmg, Gml Mobile Home Draw [address] [place], [place] [address] 02/19/2024 7:05 AM EDT Laboratory Lab Mobile Phlebotomy [facility] [address] [place], [place] [address] Mvmg, Gml Mobile Home Draw [address] [place], [place] [address] 02/26/2024 7:05 AM EDT Laboratory Lab Mobile Phlebotomy [facility] [address] [place], [place] [address] Mvmg, Gml Mobile Home Draw [address] [place], [place] [address] 03/04/2024 7:00 AM EDT Laboratory Lab Mobile Phlebotomy [facility] [address] [place], [place] [address] Mvmg, Gml Mobile Home Draw [address] [place], [place] [address] 03/05/2024 10:45 AM EDT Office Visit Hematology/Oncology [employer] [address] [place] [address] Morgan Vásquez MD [address] [place] [address], [place] [address] 03/11/2024 7:05 AM EDT Laboratory Lab Mobile Phlebotomy [facility] [address] [place] [place] [address] Mvmg, Gml Mobile Home Draw [address] [place] [facility] [place] [address] 03/18/2024 7:05 AM EST Laboratory Lab Mobile Phlebotomy [facility] [address] [place] [place] [address] Mvmg, Gml Mobile Home Draw [address] [place] [address] 03/25/2024 7:05 AM EST Laboratory Lab Mobile Phlebotomy [facility] [address] [place] [place] [address] Mvmg, Gml Mobile Home Draw [address] [place] [facility] [facility] [place] [place] [address] 04/01/2024 7:00 AM EST Laboratory Lab Mobile Phlebotomy [facility] [address] [place] [place] [address] Mvmg, Gml Mobile Home Draw [address] [place] [employer] [facility] [place] [place] [address] 04/08/2024 7:05 AM EST Laboratory Lab Mobile Phlebotomy [facility] [address] [place] [place] [address] Mvmg, Gml Mobile Home Draw [address] [place] [employer] [facility] [place] [place] [address] 04/15/2024 7:05 AM EST Laboratory Lab Mobile Phlebotomy [facility] [address] [place] [place] [address] Mvmg, Gml Mobile Home Draw [address] [place] [employer] [facility] [place] [place] [address] 04/22/2024 7:05 AM EST Laboratory Lab Mobile Phlebotomy [facility] [address] [place] [employer] [place] [address] Mvmg, Gml Mobile Home Draw [address] [place] [employer] [place] [address] 04/29/2024 7:05 AM EST Laboratory Lab Mobile Phlebotomy [facility] [address] [place] [address] Mvmg, Gml Mobile Home Draw [address] [facility] [place] [address] 05/05/2024 7:05 AM EST Laboratory Lab Mobile Phlebotomy [facility] [address] [facility] [place] [address] Mvmg, Gml Mobile Home Draw [address] [facility] [address] 09/02/2024 8:20 AM EDT Office Visit Pulmonary Medicine, [facility] [address] [facility] [place] [address] Ish Caba MD [address] [place] [address] 05/03/2025 7:40 AM EST Office Visit Dermatology [address] [place] [address] Albina Romo PA-C [address] [place] [address] [place] [address] Health Maintenance Due Date Last Done Comments [...] this encounter Medical Devices Implanted Type Area Rehabilitation Attendant Device Identifier Shelf Expiration Date Model / Serial / Lot Mesh Plug Xlarge [id number] - [id number] Implanted:Qty: 1 on 12/09/2020 by John Zaragoza MD at OR [facility] Left: Groin CR BARD : DAVOL 05/09/2023 [id number] / / [id number] documented as of this encounter Visit Diagnoses [...] ONCE PRN Other, Hypersensitivity Reaction, Starting on Liliebth 12/12/23 at 1127, Until Sat12/13/23 at 1126, [...] 517.4 mL/hr Daratumumab-hyaluronida se-fihj (Darzalex Faspro) 1800 mg-88791 units/ 15 ml subcut inj 15 mL, [...] of Attor coco? No Care Teams Director Semiconductor Relationship Specialty Start Date End Date Michael Collins MD [address] [place] [address] [place] [address] PCP - General Internal Medicine 03/01/14 documented as of this encounter
--- OUTSIDE RECORDS SUMMARY | 2024-03-26 16:29 | External Medical Summary ---
Author Name Unknown Address Unknown Organization K01:LABORATORY [facility] - [facility] [place] [address] Laboratory Report Ordering Provider Test Date Status KALPESH SERRANO 12/11/2023 07:57:00 Final Observation Date Value Abnormality Reference (Units ) Status [place] light chains, Free, Serum 12/11/2023 07:57:00 12.45 3.30-19.40 (mg/L) Final Lambda light chains, free, Serum 12/11/2023 07:57:00 1.51 Below low normal 5.71-26.30 (mg/L) Final KAPPA LAMBDA FLC RATIO 12/11/2023 07:57:00 8.25 Above high normal 0.26-1.65 Final Performing Location LABOR[facility]ORY [facility] - [facility] [place] [address]
--- OUTSIDE RECORDS SUMMARY | 2024-03-26 16:29 | External Medical Summary ---
Author Name Unknown Address Unknown Organization K01:LABORATORY [facility] [place] - [address] [facility] [address] Laboratory Report Ordering Provider Test Date Status KALPESH SERRANO 12/11/2023 07:57:00 Final Observation Date Value Abnormality Reference (Units) Status PARAPROTEIN NORMAL/ABNORMAL 12/11/2023 07:57:00 Abnormal Abnormal Normal Final Protein 12/11/2023 07:57:00 6.0 6.0-8.3 (g/dL) Final Albumin/Protein.total [Pure mass fraction] in Serum or Plasma by Electrophoresis 12/11/2023 07:57:00 3.54 3.30-4.40 (g/dL) Final Alpha 1 globulin/Protein.total [Pure mass fraction] in Serum or Plasma by Electrophoresis 12/11/2023 07:57:00 0.18 0.10-0.30 (g/dL) Final Alpha 2 globulin/Protein.total [Pure mass fraction] in Serum or Plasma by Electrophoresis 12/11/2023 07:57:00 0.91 0.60-1.00 (g/dL) Final Beta globulin/Protein.total [Pure mass fraction] in Serum or Plasma by Electrophoresis 12/11/2023 07:57:00 0.89 0.80-1.30 (g/dL) Final Gamma globulin/Protein.total [Pure mass fraction] in Serum or Plasma by Electrophoresis 12/11/2023 07:57:00 0.78 0.70-1.70 (g/dL) Final Monoclonal protein 12/11/2023 07:57:00 0.57 (g/dL) Final Protein Fractions [Interpretation] in Serum or Plasma by Electrophoresis Narrative 12/11/2023 07:57:00 Abnormal. A paraprotein is present that has been previously identified as a monoclonal IgG kappa. Final Performing Location LABORATORY [facility] [place] - [address] [facility] [address]
--- OUTSIDE RECORDS SUMMARY | 2024-03-26 16:29 | External Medical Summary ---
Author Name Unknown Address Unknown Organization K01:LABORATORY [facility] [place] - [address] [place] [address] Laboratory Report Ordering Provider Test Date Status KALPESH SERRANO 12/04/2023 08:24:00 Final Observation Date Value Abnormality Reference (Units ) Status SYNC LEUKOCYTES IN BLOOD BY AUTOMATED COUNT 12/04/2023 08:24:00 4.06 4.00-10.80 (K/uL) Final Segs 12/04/2023 08:24:00 66.3 40.0-75.0 (%) Final Lymphs % 12/04/2023 08:24:00 18.2 18.0-42.0 (%) Final Monos 12/04/2023 08:24:00 13.3 Above high normal 1.0-11.0 (%) Final Eosinophils 12/04/2023 08:24:00 1.5 0.0-6.0 (%) Final Basos 12/04/2023 08:24:00 0.5 0.0-2.0 (%) Final Immature Granulocyte, Percent 12/04/2023 08:24:00 0.2 0.0-2.0 (%) Final Absolute Segs 12/04/2023 08:24:00 2.69 1.80-7.70 (K/uL) Final Lymphs, absolute 12/04/2023 08:24:00 0.74 Below low normal 1.00-4.80 (K/ul) Final Monos, Abs 12/04/2023 08:24:00 0.54 0.00-1.10 (K/uL) Final Eos, Abs 12/04/2023 08:24:00 0.06 0.00-0.70 (K/uL) Final Basos, Abs 12/04/2023 08:24:00 0.02 0.00-0.20 (K/uL) Final Immature Granulocytes, Number 12/04/2023 08:24:00 0.01 0.00-0.20 (K/uL) Final Performing Location LABORATORY [facility] [place] - [address] [facility] [address]
--- OUTSIDE RECORDS SUMMARY | 2024-03-26 16:29 | External Medical Summary ---
Author Name Unknown Address Unknown Organization K01:LAB[place]ATORY [facility] [place] [address] [place] [address] Laboratory Report Ordering Provider Test Date Status KALPESH SERRANO 12/11/2023 07:57:00 Final Observation Date Value Abnormality Reference (Units ) Status IgG 12/11/2023 07:57:00 008 256-5235 ( mg/dL) Final IgA 12/11/2023 07:57:00 14 Below low normal 70- 400 (mg/dL) Final IgM 12/11/2023 07:57:00 9 Below low normal 40- 230 (mg/dL) Final Performing Location LABORATORY C - [address] [place] [address]
--- OUTSIDE RECORDS SUMMARY | 2024-03-26 16:29 | External Medical Summary ---
Author Name Unknown Address Unknown Organization K01:LABORATORY [facility] [place] [address] [place] [facility] [place] [address] Laboratory Report Ordering Provider Test Date Status KALPESH SERRANO 12/11/2023 07:57:00 Final Observation Date Value Abnormality Reference (Units ) Status BUN 12/11/2023 07:57:00 18 6-20 (mg/dL) Final Creatinine 12/11/2023 07:57:00 1.0 0.6-1.2 (mg/dL) Final Glomerular filtration rate/1.73 sq M.predicted [Volume Rate/Area] in Serum, Plasma or Blood by Creatinine-based formula (CKD-EPI) 12/11/2023 07:57:00 84 >=60 (mL/min) Final eGFR is calculated based on the CKD-EPI 2020 equation. Sodium 12/11/2023 07:57:00 140 135-146 (m mol/L) Final Potassium 12/11/2023 07:57:00 3.7 3.5-5.1 (m mol/L) Final Cl 12/11/2023 07:57:00 100 98-107 (mm ol/L) Final CO2 12/11/2023 07:57:00 27 22-32 (mmo l/L) Final Anion gap 12/11/2023 07:57:00 13 7-15 (mmol /L) Final Glucose 12/11/2023 07:57:00 106 70-120 (mg /dL) Final Albumin 12/11/2023 07:57:00 4.3 3.8-5.0 (g /dL) Final AST (Aspartate aminotransferase) 12/11/2023 07:57:00 23 10-50 (U/L) Final Alk Phos 12/11/2023 07:57:00 115 35-130 (U/ L) Final Bilirubin, Total 12/11/2023 07:57:00 0.3 <=1 .2 (mg/dL) Final Calcium 12/11/2023 07:57:00 9.2 8.4-10.2 ( mg/dL) Final Protein 12/11/2023 07:57:00 6.3 6.0-8.3 (g /dL) Final ALT (Alanine aminotransferase) 12/11/2023 07:57:00 20 10-50 (U/L) Final Performing Location LABORATORY [facility] [place] - [address] [facility] [address]
--- OUTSIDE RECORDS SUMMARY | 2024-03-26 16:29 | External Medical Summary | Summary of Care ---
Author Name Unknown Organization [facility] Address [address] [facility] [place] [address] Phone [phone] Care Team Providers Care Locker Room Manager Name Role Phone Michael Collins MD Primary Care Provi zehra Reason for Visit * Reason Comments Chemotherapy Cytoxan. * Episode Based Medications (Routine) - Authorized Specialty Diagnoses / Procedures Referred By Contac t Referred To Contact Diagnoses Multiple myeloma not having achieved remission (HCC) Procedures MT DARATUMUMAB, HYALURONIDASE MT INJ, CYCLOPHOSPHAMIDE, NOS Morgan Vásquez MD [address] [place] [address] Anc Hem/Onc Amena You DEPT CLOSED - 03/26/23 [address] [facility] [place] [phone] Referral ID Status Reason Start Date Expiration Date V isits Requested Visits Authorized [id number] Authorized 05/28/2022 05/12/2099 99 99 Encounter Details Date Type Department Care Team (Latest Contact Info) Description 12/05/2023 8:45 AM EDT Hem/Onc Treatment Hematology/Oncolog y Treatment, [place] [address] [place] [phone] Kenyatta, Chair 2 Hem Onc [address] [place] [address] Multiple myeloma not having achieved remission (HCC)*; Encounter for antineoplastic chemotherapy Allergies No known active allergiesdocumented as of this encounter (statuses as of 12/05/2023) Medications Medication Sig Dispensed Refills Start Date End Date Status THEOPHYLLINE ER 450 MG PO [id number] tablet at bedtime Take by mouth. Indications: [...] CAPS Take by mouth. Active Multiple Vitamins-Minerals ([facility]) CHEW Take [...] at bedtime. PATIENT INFORMATION: Kris Galvin [address] [place] [address] [employer] ORDER: Please start nocturnal oxygen via nasal [...] signed) Ish Caba MD Pulmonary Medicine, [address] [place] [address] [place] [facility] Medical License Number: [id number] 1 Each 09/21/2022 Active metFORMIN HCl ER [...] as of this encounter (statuses as of 12/05/2023) Active Problems Problem Noted Date Diagnosed Date [...] as of this encounter (statuses as of 12/05/2023) Resolved Problems Problem Noted Date Diagnosed Date Resolved Date Asthma in remission 08/28/2022 08/29/19 Asthma, mild persistent 08/28/202208/11 Asthma, severe persistent 08/28/2022 Stem cell transplant candidate 08/17/2019 09/02/2019 documented as of this encounter (statuses as of 12/05/2023) Immunizations Name Administration Dates Next Due COVID-19 mRNA, LNP-s, No Pre serve, 2-Dose Series ([employer]) 01/17/2021,08/05/2020,07/08/2020 COVID-19, LNP-s, No Preserve , Bryant-sucrose, Ages 12+ ([employer]) 09/26/2021 DTaP Dipth/Tet/Acell Pertussis ([employer]), Peds [...] Care Team (Late st Contact Info) Description 12/11/2023 7:00 AM EDT Laboratory Lab Mobile Phlebotomy [facility] [address] [place], [place] [address] [facility] [address] [place], [place] [address] 12/12/2023 11:15 AM EDT Office Visit Hematology/Oncology [facility] [place] [address] [facility] [place], [place] [phone] Morgan Vásquez MD [address] [facility] [place] [address] 12/12/2023 11:45 AM EDT Hem/Onc Treatment Hematology/Oncology Treatment, [place] [address] [place] [phone] Kenyatta, Chair 4 Hem Onc [facility] [address] [facility] [place] [address] 12/18/2023 7:05 AM EDT Laboratory Lab [facility] Phlebotomy [facility] [address] [place] [address] [facility] [address] [place] [address] 12/25/2023 7:05 AM EDT Laboratory Lab [facility] Phlebotomy [facility] [address] [place] [address] [facility] [address] [place], [place] [address] 01/01/2024 7:05 AM EDT Laboratory Lab Mobile Phlebotomy [facility] [address] [place] [address] [facility] [address] [place] [address] 01/08/2024 7:00 AM EDT Laboratory Lab [facility] Phlebot[facility] [address] [place] [address] [facility] [address] [place] [address] 01/15/2024 7:05 AM EDT Laboratory Lab Mobile Phlebotomy [facility] [address] [place] [address] [facility] [address] [place] [address] 01/22/2024 7:05 AM EDT Laboratory Lab Mobile Phlebotomy [facility] [address] [place] [address] [facility] [address] [place] [address] 01/29/2024 7:05 AM EDT Laboratory Lab Mobile Phlebotomy [facility] [address] [place], [place] [address] [facility] [address] [place] [address] 02/05/2024 7:00 AM EDT Laboratory Lab [facility] Phlebotomy [facility] [address] [facility] [place], [place] [address] [facility] [address] [place] [address] 02/05/2024 8:40 AM EDT Office Visit Neurology [facility] [address] [facility] [place], [place] [address] Octavia Goins PA-C [address] [facility] [place] [address] 02/07/2024 8:00 AM EDT Office Visit Rheumatology [address] [place] [phone] Darnell Higgins MD [address] [place] [address] 02/12/2024 7:05 AM EDT Laboratory Lab [facility] Phlebotomy [facility] [address] [place] [address] [facility] [address] [facility] [place], [place] [address] 02/19/2024 7:05 AM EDT Laboratory Lab [facility] Phlebotomy [facility] [address] [place] [address] [facility] [address] [place] [address] 02/26/2024 7:05 AM EDT Laboratory Lab Mobile Phlebotomy [facility] [address] [place] [address] [facility] [address] [place] [address] 03/04/2024 7:00 AM EDT Laboratory Lab [facility] Phlebotomy [facility] [address] [place] [address] [facility] [address] [place] [address] 03/11/2024 7:05 AM EDT Laboratory Lab [facility]le[facility] [address] [place] [address] [facility] [address] [place] [address] 03/18/2024 7:05 AM EST Laboratory Lab [facility] [address] [place] [address] [facility] [address] [place] [address] 03/25/2024 7:05 AM EST Laboratory Lab [facility] [address] [place] [address] [facility] [address] [place] [address] 04/01/2024 7:00 AM EST Laboratory Lab [facility] Phlebotomy [facility] [address] [place] [address] [facility] [address] [place] [address] 04/08/2024 7:05 AM EST Laboratory Lab [facility] Phlebotomy [facility] [address] [place] [address] [facility] [address] [place] [address] 04/15/2024 7:05 AM EST Laboratory Lab Mobile Phlebotomy [facility] [address] [place] [address] [facility] [address] [place] [address] 04/22/2024 7:05 AM EST Laboratory Lab Mobile Phlebotomy [facility] [address] [place] [address] [facility] [address] [place] [address] 04/29/2024 7:05 AM EST Laboratory Lab [facility] Phlebotomy [facility] [address] [place] [address] [facility] [address] [place] [address] 05/05/2024 7:05 AM EST Laboratory Lab [facility] Phlebotomy [facility] [address] [place] [address] [facility] [address] [place] [address] 09/02/2024 8:20 AM EDT Office Visit Pulmonary Medicine, [facility] [address] [facility] [place] [address] Ish Caba MD [address] [place] [address] 05/03/2025 7:40 AM EST Office Visit Dermatology [address] [place] [address] Albina Romo PA-C [address] [place] [address] [place] [address] Health Maintenance Due Date Last Done Comments Depression Screening 1976 Albumin/Creatinine Ratio 1982 Cologuard 2009 Fecal Occult Blood Test 2009 Sigmoidoscopy 2009 COVID-19 Vaccine ( season) 2023 01/28/2022, 09/26/2021, 01/17/2021, Additional history exists Colonoscopy 03/03/2023 03/03/2018, 03/03/2018 Colorectal Cancer Screening 03/03/2023 *SPIROMETRY ONCE FOR ASTHMA-ADULT 11/30/2023 Lipid Panel 11/18/2024 11/19/2019, 07/11, 07/29/2009 GFR 12/03/2024 12/04/2023, 11/10, 11/20/2023, Additional history exists Diabetes Screening 12/03/2026 12/04/2023, 0 11/27/2023, 11/20/2023, Additional history exists DTaP,Tdap,and Td Vaccines (4 [...] this encounter Medical Devices Implanted Type Area Production Reproduction Manager Device Identifier Shelf Expiration Date Model / Serial / Lot Mesh Plug Xlarge [id number] - [id number] Implanted:Qty: 1 on 12/09/2020 by John Zaragoza MD at OR [facility] Left: Groin CR BARD : DAVOL 05/09/2023 [id number] / / [id number] documented as of this encounter Visit Diagnoses [...] ONCE PRN Other, Hypersensitivity Reaction, Starting on Sat12/05/23 at 0844, Until Sat12/06/23 at 0843, For 24 hours EPINEPHrine 1 MG/ML inj 0.3 mg 0.3 mg, Intramuscular, ONCE PRN Other, Hypersensitivity Reaction or Anaphylaxis, Starting on Lilibeth 12/05/23 at 0844, Until Sat12/06/23 at 0843, For 24 hours hEParin 100 UNIT/ML Lock Flush inj 500 Units 500 Units (5 mL), IV Lock, PRN Other, IV Flush, Starting on Lilibeth 12/05/23 at 0844, Until Sat12/06/23 at 0843, For 24 hours, Do not flush if lock, PICC, or central line not in place; IV infusing or unable to flush. Hydrocortisone Sod Suc (PF) (Solu-Cortef) inj 100 mg 100 mg, IV Push, ONCE PRN Other, Hypersensitivity Reaction, Starting on Lilibeth 12/05/23 at 0844, Until Sat12/06/23 at 0843, For 24 hours meperidine (Demerol) 25 MG/ML inj 25 mg 25 mg, IV Push, ONCE PRN Shivering, Starting on Sat12/05/23 at 0844, Until Sat12/06/23 at 0843, For 24 hours NSS infusion FOR HYDRATION Intravenous, at 50 mL/hr Administer over 10 Hours, CONTINUOUS, Starting on Lilibeth 12/05/23 at 0915, Until Discontinued Start Infusion 12/05/2023 8:53 AM EDT 500 mL 50 mL/hr sodium chloride 0.9 % flush central line 10 mL 10 mL, IV Push, PRN Other, IV Flush, Starting on Lilibeth 12/05/23 at 0844, Until Sat12/06/23 at 0843, For 24 hours, Do not flush if [...] 8:55 AM EDT 1,000 mL 500 mL/hr ondansetron [...] Power of Attor coco? No Care Teams Locker Room Manager Relationship Specialty Start Date End Date Michael Collins MD [address] [place] [address] [place] [address] PCP - General Internal Medicine 03/01/14 documented as of this encounter
--- OUTSIDE RECORDS SUMMARY | 2024-03-26 16:29 | External Medical Summary ---
Author Name Unknown Address Unknown Organization K01:LABORATORY [facility] [place] - [address] [facility] [place] [address] Laboratory Report Ordering Provider Test Date Status KALPESH SERRANO 12/04/2023 08:24:00 Final Observation Date Value Abnormality Reference (Units ) Status BUN 12/04/2023 08:24:00 20 6-20 (mg/dL) Final Creatinine 12/04/2023 08:24:00 1.1 0.6-1.2 (mg/dL) Final Glomerular filtration rate/1.73 sq M.predicted [Volume Rate/Area] in Serum, Plasma or Blood by Creatinine-based formula (CKD-EPI) 12/04/2023 08:24:00 78 >=60 (mL/min) Final eGFR is calculated based on the CKD-EPI 2020 equation. Sodium 12/04/2023 08:24:00 139 135-146 (m mol/L) Final Potassium 12/04/2023 08:24:00 3.7 3.5-5.1 (m mol/L) Final Cl 12/04/2023 08:24:00 97 Below low normal 98- 107 (mmol/L) Final CO2 12/04/2023 08:24:00 29 22-32 (mmo l/L) Final Anion gap 12/04/2023 08:24:00 13 7-15 (mmol /L) Final Glucose 12/04/2023 08:24:00 94 70-120 (mg /dL) Final Albumin 12/04/2023 08:24:00 4.5 3.8-5.0 (g /dL) Final AST (Aspartate aminotransferase) 12/04/2023 08:24:00 23 10-50 (U/L) Fin al Alk Phos 12/04/2023 08:24:00 126 35-130 (U/ L) Final Bilirubin, Total 12/04/2023 08:24:00 0.2 <=1 .2 (mg/dL) Final Calcium 12/04/2023 08:24:00 9.3 8.4-10.2 ( mg/dL) Final Protein 12/04/2023 08:24:00 6.5 6.0-8.3 (g /dL) Final ALT (Alanine aminotransferase) 12/04/2023 08:24:00 19 10-50 (U/L) Regis figueroa Performing Location LABORATORY [facility] [place] - [facility] [address] [facility] [address]
--- OUTSIDE RECORDS SUMMARY | 2024-03-26 16:29 | External Medical Summary | Summary of Care ---
Author Name Unknown Organization [facility] Address [address] [facility] [place] [address] Phone [phone] Care Team Providers Care Armored Vehicle Officer Name Role Phone Michael Colilns MD Primary Care Provi zehra Reason for Visit * Reason Comments Chemotherapy Cytoxan IV Therapy Hydration * Episode Based Medications (Routine) - Authorized Specialty Diagnoses / Procedures Referred By Contac t Referred To Contact Diagnoses Multiple myeloma not having achieved remission (HCC) Procedures [place] DARATUMUMAB, HYALURONIDASE [place] INJ, CYCLOPHOSPHAMIDE, NOS Morgan Vásquez MD [address] [facility] [place] [address] Anc Hem/Onc Amena You DEPT CLOSED - 03/26/23 [address] [facility] [place] [address] Referral ID Status Reason Start Date Expiration Date V isits Requested Visits Authorized [id number] Authorized 05/28/2022 05/12/2099 99 99 Encounter Details Date Type Department Care Team (Latest Contact Info) Description 11/28/2023 8:30 AM EDT Hem/Onc Treatment Hematology/Oncology Treatment, [place] [address] [place] [address] Kenyatta, Chair 9 Hem Onc [facility] [place] [address] Multiple myeloma not having achieved remission (HCC)* Allergies No known active allergiesdocumented as of this encounter (statuses as of 11/28/2023) Medications Medication Sig Dispensed Refills Start Date End Date Status THEOPHYLLINE ER 450 MG PO [id number] tablet at bedtime Take by mouth. Indications: [...] at bedtime. PATIENT INFORMATION: Kris Galvin [address] [place] [address] [employer]: [employer] ORDER: Please start nocturnal oxygen via nasal [...] signed) Ish Caba MD Pulmonary Medicine, [address] [place] [address] [place] [facility] Medical License Number: [id number] 1 Each 09/21/2022 Active metFORMIN HCl ER [...] as of this encounter (statuses as of 11/28/2023) Active Problems Problem Noted Date Diagnosed Date [...] as of this encounter (statuses as of 11/28/2023) Resolved Problems Problem Noted Date Diagnosed Date Resolved Date Asthma in remission 08/28/2022 08/29/19 Asthma, mild persistent 08/28/202208/11 Asthma, severe persistent 08/28/2022 Stem cell transplant candidate 08/17/2019 09/02/2019 documented as of this encounter (statuses as of 11/28/2023) Immunizations Name Administration Dates Next Due COVID-19 mRNA, LNP-s, No Pre serve, 2-Dose Series ([employer] [place] 01/17/2021,08/05/2020,07/08/2020 COVID-19, LNP-s, No Preserve , Bryant-sucrose, Ages 12+ ([employer] [place] 09/26/2021 DTaP Dipth/Tet/Acell Pertussis ([employer]), Peds 02/23/2021,11/11/2020,09/09/2020 [...] Care Team (Late st Contact Info) Description 12/04/2023 7:05 AM EDT Laboratory Lab Mobile Phlebotomy [facility] [address] [place] [address] [facility] [address] [facility] [place], [place] [address] 12/05/2023 8:45 AM EDT [facility] 200 [place] [phone] Kenyatta, Chair 2 Hem Onc [address] 200 [place] [address] 12/11/2023 7:00 AM EDT Laboratory Lab Mobile Phlebotomy [facility] [address] [place] [address] M[facility], [facility] Draw [address] [facility] [place], [place] [address] 12/12/2023 11:15 AM EDT Office Visit Hematology/Oncology [facility] 200 [place] [phone] Morgan Vásquez MD 200 [place] [address] 12/12/2023 11:45 AM EDT Hem[facility] 200 [place] [phone] Park, Chair 4 Hem Onc [facility] [address] [place] [address], [place] [address] 12/18/2023 7:05 AM EDT Laboratory Lab Mobile Phlebotomy [facility] [address] [place] [address] M[facility], [facility] Draw [address] [place], [place] [address] 12/25/2023 7:05 AM EDT Laboratory Lab Mobile Phlebotomy [facility] [address] [place], [place] [address] Mvmg, Gml [facility] Draw [address] [place] [address] 01/01/2024 7:05 AM EDT Laboratory Lab Mobile Phlebotomy [facility] [address] [facility] [place] [address] Mvmg, Gml [facility] Draw [address] [facility] [place] [address] 01/08/2024 7:00 AM EDT Laboratory Lab Mobile Phlebotomy [facility] [address] [facility] [place] [address] M[facility], G[facility] Draw [address] [facility] [place] [address] 01/15/2024 7:05 AM EDT Laboratory Lab Mobile Phlebotomy [facility] [address] [place] [address] M[facility], [facility] Draw [address] [facility] [place] [address] 01/22/2024 7:05 AM EDT Laboratory Lab Mobile Phlebotomy [facility] [address] [place] [address] M[facility], [facility] [address] [facility] [place] [address] 01/29/2024 7:05 AM EDT Laboratory Lab Mobile Phlebotomy [facility] [address] [facility] [place] [address] Mv[facility], [facility] Draw [address] [facility] [place] [address] 02/05/2024 7:00 AM EDT Laboratory Lab Mobile Phlebotomy [facility] [address] [place] [address] M[facility], [facility] [address] [facility] [place] [address] 02/05/2024 8:40 AM EDT Office Visit Neurology [facility] Kenyatta [place] [address] [facility] [place], [place] [address] Octavia Goins PA-C [address] [facility] [place], [place] [address] 02/07/2024 8:00 AM EDT Office Visit Rheumatology [address] [place] [phone] Darnell Higgins MD [address] [facility] [place] [address] 02/12/2024 7:05 AM EDT Laboratory Lab Mobile Phlebotomy [facility] [address] [facility] [place] [address] Mvmg, G[facility] Draw [address] [facility] [place] [address] 02/19/2024 7:05 AM EDT Laboratory Lab Mobile Phlebotomy [facility] [address] [place] [address] M[facility], [facility] [address] [facility] [place] [address] 02/26/2024 7:05 AM EDT Laboratory Lab Mobile Phlebotomy [facility] [address] [facility] [place] [address] Mvmg, [facility] [address] [facility] [place] [address] 03/04/2024 7:00 AM EDT Laboratory Lab Mobile Phlebotomy [facility] [address] [place] [address] Mvmg, Gml [facility] Draw [address] [facility] [place] [address] 03/11/2024 7:05 AM EDT Laboratory Lab Mobile Phlebotomy [facility] [address] [place] [address] Mvmg, G[facility] [address] [facility] [place] [address] 03/18/2024 7:05 AM EST Laboratory Lab Mobile Phlebotomy [facility] [address] [place] [address] M[facility], [facility] [address] [place] [address] 03/25/2024 7:05 AM EST Laboratory Lab Mobile Phlebotomy [facility] [address] [place] [address] Mvmg, Gml [facility] Draw [address] [facility] [place] [address] 04/01/2024 7:00 AM EST Laboratory Lab Mobile Phlebotomy [facility] [address] [facility] [place] [address] Mvmg, [facility] [address] [place] [address] 04/08/2024 7:05 AM EST Laboratory Lab Mobile Phlebotomy [facility] [address] [place] [address] Mv[facility], [facility] [address] [facility] [place] [address] 04/15/2024 7:05 AM EST Laboratory Lab Mobile Phlebotomy [facility] [address] [facility] [place] [address] Mvmg, [facility] [address] [place] [address] 04/22/2024 7:05 AM EST Laboratory Lab Mobile Phlebotomy [facility] [address] [facility] [place] [address] Mvmg, [facility] Draw [address] [facility] [place] [address] 04/29/2024 7:05 AM EST Laboratory Lab Mobile Phlebotomy [facility] [address] [place] [address] Mv[facility], [facility] Draw [address] [place] [address] 05/05/2024 7:05 AM EST Laboratory Lab Mobile Phlebotomy [facility] [address] [place] [address] M[facility], [facility] [address] [place] [address] 09/02/2024 8:20 AM EDT Office Visit Pulmonary Medicine, [facility] [address] [place] [address] Ish Caba MD [address] [place] [address] 05/03/2025 7:40 AM EST Office Visit Dermatology [address] [place] [address] Albina Romo PA-C [address] [place] [address] [place] [address] Health Maintenance Due Date Last Done Comments Depression Screening 1976 Albumin/Creatinine Ratio 1982 Cologuard 2009 Fecal Occult Blood Test 2009 Sigmoidoscopy 2009 COVID-19 Vaccine (2022- season) 2023 01/28/2022, 09/26/2021, 01/17/2021, Additional history exists Colonoscopy 03/03/2023 03/03/2018, 03/03/2018 Colorectal Cancer Screening 03/03/2023 Lipid Panel 11/18/2024 11/19/2019, 07/11, 07/29/2009 GFR 11/26/2024 11/27/2023, 11/10, 11/13/2023, Additional history exists Diabetes Screening 11/26/2026 11/27/2023, 0 11/20/2023, 11/13/2023, Additional history exists DTaP,Tdap,and Td Vaccines (4 [...] this encounter Medical Devices Implanted Type Area Plastic Molding Operator Device Identifier Shelf Expiration Date Model / Serial / Lot Mesh Plug Xlarge [id number] - [id number] Implanted:Qty: 1 on 12/09/2020 by John Zaragoza MD at OR [facility] Left: Groin CR BARD : DAVOL 05/09/2023 [id number] / / [id number] documented as of this encounter Visit Diagnoses Diagnosis Multiple myeloma not having achieved remission (HCC)- Primary Multiple myeloma, without mention of having achieved remission documented in this encounter Administered Medications Active Administered Medications - up to 3 most recent administrations Medication Order MAR Action Action Date Dose Rate Site diphenhydrAMINE (Benadryl) inj 50 mg 50 mg, IV Push, ONCE PRN Other, Hypersensitivity Reaction, Starting on Sat11/28/23 at 0830, Until Sat11/29/23 at 0829, For 24 hours EPINEPHrine 1 MG/ML inj 0.3 mg 0.3 mg, Intramuscular, ONCE PRN Other, Hypersensitivity Reaction or Anaphylaxis, Starting on Sat11/28/23 at 0830, Until Sat11/29/23 at 0829, For 24 hours hEParin 100 UNIT/ML Lock Flush inj 500 Units 500 Units (5 mL), IV Lock, PRN Other, IV Flush, Starting on Sat11/28/23 at 0830, Until Sat11/29/23 at 0829, For 24 hours, Do not flush if lock, PICC, or central line not in place; IV infusing or unable to flush. Hydrocortisone Sod Suc (PF) (Solu-Cortef) inj 100 mg 100 mg, IV Push, ONCE PRN Other, Hypersensitivity Reaction, Starting on Sat11/28/23 at 0830, Until Sat11/29/23 at 0829, For 24 hours meperidine (Demerol) 25 MG/ML inj 25 mg 25 mg, IV Push, ONCE PRN Shivering, Starting on Sat11/28/23 at 0830, Until Sat11/29/23 at 0829, For 24 hours NSS infusion Intravenous, at 50 mL/hr Administer over 10 Hours, CONTINUOUS, Starting on Lilibeth 11/28/23 at 0915, Until Discontinued Start Infusion 11/28/2023 8:40 AM EDT 500 mL 50 mL/hr sodium chloride 0.9 % flush central line 10 mL 10 mL, IV Push, PRN Other, IV Flush, Starting on Lilibeth 11/28/23 at 0830, Until Sat11/29/23 at 0829, For 24 hours, Do not [...] 8:41 AM EDT 1,000 mL 500 mL/hr ondansetron [...] Power of Attor coco? No Care Teams Armored Vehicle Officer Relationship Specialty Start Date End Date Michael Collins MD [address] [place] [address] [place] [address] PCP - General Internal Medicine 03/01/14 documented as of this encounter
--- OUTSIDE RECORDS SUMMARY | 2024-03-26 16:29 | External Medical Summary ---
Author Name Unknown Address Unknown Organization K01:[facility] [address] [facility] [place] [address] Laboratory Report Ordering Provider Test Date Status KALPESH SERRANO 12/11/2023 07:57:00 Final Observation Date Value Abnormality Reference (Units ) Status SYNC LEUKOCYTES IN BLOOD BY AUTOMATED COUNT 12/11/2023 07:57:00 4.72 4.00-10.80 (K/uL) Final Segs 12/11/2023 07:57:00 66.2 40.0-75.0 (%) Final Lymphs % 12/11/2023 07:57:00 18.6 18.0-42.0 (%) Final Monos 12/11/2023 07:57:00 12.7 Above high normal 1.0-11.0 (%) Final Eosinophils 12/11/2023 07:57:00 1.7 0.0-6.0 (%) Final Basos 12/11/2023 07:57:00 0.6 0.0-2.0 (%) Final Immature Granulocyte, Percent 12/11/2023 07:57:00 0.2 0.0-2.0 (%) Final Absolute Segs 12/11/2023 07:57:00 3.12 1.80-7.70 (K/uL) Final Lymphs, absolute 12/11/2023 07:57:00 0.88 Below low normal 1.00-4.80 (K/ul) Final Monos, Abs 12/11/2023 07:57:00 0.60 0.00-1.10 (K/uL) Final Eos, Abs 12/11/2023 07:57:00 0.08 0.00-0.70 (K/uL) Final Basos, Abs 12/11/2023 07:57:00 0.03 0.00-0.20 (K/uL) Final Immature Granulocytes, Number 12/11/2023 07:57:00 0.01 0.00-0.20 (K/uL) Final Performing Location [facility] - [address] [facility] [address]
--- OUTSIDE RECORDS SUMMARY | 2024-03-26 16:29 | External Medical Summary | Summary of Care ---
Author Name Unknown Organization [facility] Address [address] [facility] [place] [address] Phone [phone] Care Team Providers Care Side Panel Hanger Name Role Phone Michael Collins MD Primary Care Provi zehra Reason for Visit * Reason Comments Chemotherapy Cytoxan. * Episode Based Medications (Routine) - Authorized Specialty Diagnoses / Procedures Referred By Contac t Referred To Contact Diagnoses Multiple myeloma not having achieved remission (HCC) Procedures [place] DARATUMUMAB, HYALURONIDASE [place] INJ, CYCLOPHOSPHAMIDE, NOS Morgan Vásquez MD [address] [place] [address] Anc Hem/Onc Amena Yuo DEPT CLOSED - 03/26/23 [address] [facility] [place] [address] Referral ID Status Reason Start Date Expiration Date V isits Requested Visits Authorized [id number] Authorized 05/28/2022 05/12/2099 99 99 Encounter Details Date Type Department Care Team (Latest Contact Info) Description 11/21/2023 8:45 AM EDT Hem/Onc Treatment Hematology/Oncolog y Treatment, [place] [address] [place] [phone] Kenyatta, Chair 2 Hem Onc Scenery [address] [place] [address] Multiple myeloma not having achieved remission (HCC)*; Encounter for antineoplastic chemotherapy Allergies No known active allergiesdocumented as of this encounter (statuses as of 11/21/2023) Medications Medication Sig Dispensed Refills Start Date End Date Status THEOPHYLLINE ER 450 MG PO [id number] tablet at bedtime Take by mouth. Indications: [...] at bedtime. PATIENT INFORMATION: Kris Galvin [address] [place] [address] [employer] ORDER: Please start nocturnal oxygen via nasal [...] signed) Ish Caba MD Pulmonary Medicine, [address] [place] [address] [place] [facility] Medical License Number: [id number] 1 Each 09/21/2022 Active metFORMIN HCl ER [...] as of this encounter (statuses as of 11/21/2023) Active Problems Problem Noted Date Diagnosed Date [...] as of this encounter (statuses as of 11/21/2023) Resolved Problems Problem Noted Date Diagnosed Date Resolved Date Asthma in remission 08/28/2022 08/29/19 Asthma, mild persistent 08/28/202208/11 Asthma, severe persistent 08/28/2022 Stem cell transplant candidate 08/17/2019 09/02/2019 documented as of this encounter (statuses as of 11/21/2023) Immunizations Name Administration Dates Next Due COVID-19 mRNA, LNP-s, No Pre serve, 2-Dose Series (Smart Mocha) 01/17/2021,08/05/2020,07/08/2020 COVID-19, LNP-s, No Preserve , Bryant-sucrose, Ages 12+ (Smart Mocha) 09/26/2021 DTaP Dipth/Tet/Acell Pertussis (Infanrix), Peds 02/23/2021,11/11/2020,09/09/2020 [...] Care Team (Late st Contact Info) Description 11/27/2023 7:05 AM EDT Laboratory Lab Mobile Phlebotomy [facility] [address] [place] [address] [facility], [facility] Mobile Home Draw [address] [email or web address] [address] 11/28/2023 8:30 AM EDT Hem/Onc Treatment Hematology/Oncology Treatment, [place] [address] [place] [phone] Park, Chair 9 Hem Onc Scenery [address] [place] [address] 12/04/2023 7:05 AM EDT Laboratory Lab Mobile Phlebotomy [facility] [address] [email or web address] [address] [facility], Gml Mobile Home Draw [email or web address] [email or web address], [place] [address] 12/05/2023 8:45 AM EDT Hem/Onc Treatment Hematology/Oncology Treatment, [place] [address] [place] [phone] Kenyatta, Chair 2 Hem Onc Scenery [address] [facility] [place] [address] 12/11/2023 7:00 AM EDT Laboratory Lab Mobile Phlebotomy [facility] [address] [email or web address] [address] M[facility], Gml Mobile Home Draw [address] [email or web address] [address] 12/12/2023 11:15 AM EDT Office Visit Hematology/Oncology [facility] [place] [address] [place] [phone] Morgan Vásquez MD [address] [place] [address] 12/12/2023 11:45 AM EDT Hem/Onc Treatment Hematology/Oncology Treatment, [place] [address] [place] [phone] Park, Chair 11 Hem Onc Scenery [address] [place] [address] 12/18/2023 7:05 AM EDT Laboratory Lab Mobile Phlebotomy [facility] [address] [place] [address] Mvmg, Gml Mobile Home Draw [address] [place] [address] 12/25/2023 7:05 AM EDT Laboratory Lab Mobile Phlebotomy [facility] [address] [place] [address] M[facility], Gml Mobile Home Draw [address] [place] [address] 01/01/2024 7:05 AM EDT Laboratory Lab Mobile Phlebotomy [facility] [address] [place] [address] M[facility], Gml Mobile Home Draw [address] [place] [address] 01/08/2024 7:00 AM EDT Laboratory Lab Mobile Phlebotomy [facility] [address] [place] [address] M[facility]mg, Gml Mobile Home Draw [address] [place] [address] 01/15/2024 7:05 AM EDT Laboratory Lab Mobile Phlebotomy [facility] [address] [place] [address] M[facility]mg, Gml [facility] Draw [address] [place] [address] 01/22/2024 7:05 AM EDT Laboratory Lab Mobile Phlebotomy [facility] [address] [place] [address] Mvmg, Gml Mobile Home Draw [address] [place] [address] 01/29/2024 7:05 AM EDT Laboratory Lab Mobile Phlebotomy [facility] [address] [place] [address] M[facility], Gml Mobile Home Draw [address] [facility] [address] 02/05/2024 7:00 AM EDT Laboratory Lab Mobile Phlebotomy [facility] [address] [place] [address] M[facility], Gml Mobile Home Draw [address] [facility] [place], [place] [address] 02/05/2024 8:40 AM EDT [facility] [address] [facility] [address] [place], [place] [address] Octavia Goins PA-C [address] [facility] [address] [place], [place] [address] 02/07/2024 8:00 AM EDT Office Visit Rheumatology [address] [place] [phone] Darnell Higgins MD [address] [place], [place] [address] 02/12/2024 7:05 AM EDT Laboratory Lab Mobile Phlebotomy [facility] [address] [place] [address] [facility], Gml Mobile Home Draw [address] [facility] [facility] [address] [place], [place] [address] 02/19/2024 7:05 AM EDT Laboratory Lab Mobile Phlebotomy [facility] [address] [place], [place] [address] M[facility], Gml Mobile Home Draw [address] [place], [place] [address] 02/26/2024 7:05 AM EDT Laboratory Lab Mobile Phlebotomy [facility] [address] [place], [place] [address] M[facility], Gml Mobile Home Draw [address] [facility] [place] [address] 03/04/2024 7:00 AM EDT Laboratory Lab Mobile Phlebotomy [facility] [address] [place], [place] [address] M[facility], Gml [facility] Draw [address] [place], [place] [address] 03/11/2024 7:05 AM EDT Laboratory Lab Mobile Phlebotomy [facility] [address] [place] [address] Mvmg, Gml Mobile Home Draw [address] [place] [address] 03/18/2024 7:05 AM EST Laboratory Lab Mobile Phlebotomy [facility] [address] [place] [address] Mvmg, Gml Mobile Home Draw [address] [place] [address] 03/25/2024 7:05 AM EST Laboratory Lab Mobile Phlebotomy [facility] [address] [place] [address] Mvmg, Gml Mobile Home Draw [address] [place] [address] 04/01/2024 7:00 AM EST Laboratory Lab Mobile Phlebotomy [facility] [address] [place] [address] Mvmg, Gml Mobile Home Draw [address] [place] [address] 04/08/2024 7:05 AM EST Laboratory Lab Mobile Phlebotomy [facility] [address] [place] [address] Mvmg, Gml [facility] Draw [address] [place] [address] 04/15/2024 7:05 AM EST Laboratory Lab Mobile Phlebotomy [facility] [address] [place] [address] Mvmg, Gml Mobile Home Draw [address] [place] [address] 04/22/2024 7:05 AM EST Laboratory Lab Mobile Phlebotomy [facility] [address] [place] [address] Mvmg, Gml Mobile Home Draw [address] [place] [address] 04/29/2024 7:05 AM EST Laboratory Lab Mobile Phlebotomy [facility] [address] [place] [address] Mvmg, Gml Mobile Home Draw [address] [place] [address] 05/05/2024 7:05 AM EST Laboratory Lab Mobile Phlebotomy [facility] [address] [facility] [place] [address] [facility], Gml Mobile Home Draw [address] [email or web address] [address] 09/02/2024 8:20 AM EDT Office Visit Pulmonary Medicine, [facility] [address] [facility] [place] [address] Ish Caba MD [address] [place] [address] 05/03/2025 7:40 AM EST Office Visit Dermatology [address] [place] [address] Albina Romo PA-C [address] [place] [address] [place] [address] Health Maintenance Due Date Last Done Comments Depression Screening 1976 Albumin/Creatinine Ratio 1982 Cologuard 2009 Fecal Occult Blood Test 2009 Sigmoidoscopy 2009 COVID-19 Vaccine ( season) 2023 01/28/2022, 09/26/2021, 01/17/2021, Additional history exists Colonoscopy 03/03/2023 03/03/2018, 03/03/2018 Colorectal Cancer Screening 03/03/2023 Lipid Panel 11/18/2024 11/19/2019, 07/11, 07/29/2009 GFR 11/19/2024 11/20/2023, 07/0 07/2023, 11/06/2023, Additional history exists Diabetes Screening 11/19/2026 11/20/2023, 0 11/13/2023, 11/06/2023, Additional history exists DTaP,Tdap,and Td Vaccines (4 [...] this encounter Medical Devices Implanted Type Area Distribution Manager Device Identifier Shelf Expiration Date Model / Serial / Lot Mesh Plug Xlarge [id number] - [id number] Implanted:Qty: 1 on 12/09/2020 by John Zaragoza MD at OR [facility] Left: Groin CR BARD : DAVOL 05/09/2023 [id number] / / [id number] documented as of this encounter Visit Diagnoses [...] ONCE PRN Other, Hypersensitivity Reaction, Starting on Sat11/21/23 at 0839, Until Sat11/22/23 at 0838, For 24 hours EPINEPHrine 1 MG/ML inj 0.3 mg 0.3 mg, Intramuscular, ONCE PRN Other, Hypersensitivity Reaction or Anaphylaxis, Starting on Lilibeth 11/21/23 at 0839, Until Sat11/22/23 at 0838, For 24 hours hEParin 100 UNIT/ML Lock Flush inj 500 Units 500 Units (5 mL), IV Lock, PRN Other, IV Flush, Starting on Lilibeth 11/21/23 at 0839, Until Sat11/22/23 at 0838, For 24 hours, Do not flush if lock, PICC, or central line not in place; IV infusing or unable to flush. Hydrocortisone Sod Suc (PF) (Solu-Cortef) inj 100 mg 100 mg, IV Push, ONCE PRN Other, Hypersensitivity Reaction, Starting on Sat11/21/23 at 0839, Until Sat11/22/23 at 0838, For 24 hours meperidine (Demerol) 25 MG/ML inj 25 mg 25 mg, IV Push, ONCE PRN Shivering, Starting on Sat11/21/23 at 0839, Until Sat11/22/23 at 0838, For 24 hours NSS infusion FOR HYDRATION Intravenous, at 50 mL/hr Administer over 10 Hours, CONTINUOUS, Starting on Sat11/21/23 at 0915, Until Discontinued Start Infusion 11/21/2023 8:46 AM EDT 500 mL 50 mL/hr sodium chloride 0.9 % flush central line 10 mL 10 mL, IV Push, PRN Other, IV Flush, Starting on Sat11/21/23 at 0839, Until Sat11/22/23 at 0838, For 24 hours, Do not [...] if not tolerated., ONCE, 1 dose, On Sat11/21/23 at 0930 Start Infusion 11/21/2023 9:15 AM EDT 740 mg 517.4 mL/hr dexAMETHasone (Decadron) tab 40 mg 40 mg, Oral, ONCE, On Sat11/21/23 at 0915, For 1 dose Given 11/21/2023 8:50 AM EDT 40 mg NSS infusion FOR HYDRATION Intravenous, at 500 mL/hr Administer over 2 Hours, ONCE, 1 dose, On Sat11/21/23 at 0915 Start Infusion 11/21/2023 8:47 AM [...] Power of Attor coco? No Care Teams Side Panel Hanger Relationship Specialty Start Date End Date Michael Collins MD [address] [place] [address] [place] [address] PCP - General Internal Medicine 03/01/14 documented as of this encounter
--- OUTSIDE RECORDS SUMMARY | 2024-03-26 16:29 | External Medical Summary ---
Author Name Unknown Address Unknown Organization K01:LABORATORY [facility] [place] - [address] [facility] [address] Laboratory Report Ordering Provider Test Date Status KALPESH SERRANO 12/04/2023 08:24:00 Final Observation Date Value Abnormality Reference (Units ) Status WBC, Total 12/04/2023 08:24:00 4.06 4.00-10.80 (K/uL) Final RBC 12/04/2023 08:24:00 4.08 4.50-5.25 (M/uL) Final Hemoglobin 12/04/2023 08:24:00 14.0 14.0-16.8 (g/dL) Final HCT 12/04/2023 08:24:00 44.5 40.0-48.4 (%) Final MCV 12/04/2023 08:24:00 109.1 82.0-99.5 (fL) Final MCH 12/04/2023 08:24:00 34.3 27.0-34.0 (pg) Final MCHC 12/04/2023 08:24:00 31.5 32.0-36.0 (g/dL) Final RDW 12/04/2023 08:24:00 14.6 11.5-15.5 (%) Final Platelets 12/04/2023 08:24:00 112 Below low normal 140-400 (K/uL) Final MPV 12/04/2023 08:24:00 10.3 6.6-11.1 (fL) Final Nucleated erythrocytes/100 leukocytes [Ratio] in Blood by Automated count 12/04/2023 08:24:00 0 <=0 (/100 WBCs) Final Performing Location LAB[facility]ORY [facility] - [address] [place] [address]
--- OUTSIDE RECORDS SUMMARY | 2024-03-26 16:29 | External Medical Summary ---
Author Name Unknown Address Unknown Organization K01:[facility]ORY [facility] [place] - [address] [facility] [address] Laboratory Report Ordering Provider Test Date Status KALPESH SERRANO 11/27/2023 08:23:00 Final Observation Date Value Abnormality Reference (Units ) Status WBC, Total 11/27/2023 08:23:00 4.74 4.00-10.80 (K/uL) Final RBC 11/27/2023 08:23:00 4.20 4.50-5.25 (M/uL) Final Hemoglobin 11/27/2023 08:23:00 14.4 14.0-16.8 (g/dL) Final HCT 11/27/2023 08:23:00 43.6 40.0-48.4 (%) Final MCV 11/27/2023 08:23:00 103.8 82.0-99.5 (fL) Final MCH 11/27/2023 08:23:00 34.3 27.0-34.0 (pg) Final MCHC 11/27/2023 08:23:00 33.0 32.0-36.0 (g/dL) Final RDW 11/27/2023 08:23:00 14.2 11.5-15.5 (%) Final Platelets 11/27/2023 08:23:00 119 Below low normal 140-400 (K/uL) Final MPV 11/27/2023 08:23:00 10.5 6.6-11.1 (fL) Final Nucleated erythrocytes/100 leukocytes [Ratio] in Blood by Automated count 11/27/2023 08:23:00 0 <=0 (/100 WBCs) Final Performing Location LAB[facility]ORY [facility] [place] - [address] [place] [address]
--- OUTSIDE RECORDS SUMMARY | 2024-03-26 16:29 | External Medical Summary ---
Author Name Unknown Address Unknown Organization K01:[facility] [place] [address] [place] [facility] [place] [address] Laboratory Report Ordering Provider Test Date Status KALPESH SERRANO 11/27/2023 08:23:00 Final Observation Date Value Abnormality Reference (Units ) Status BUN 11/27/2023 08:23:00 20 6-20 (mg/dL) Final Creatinine 11/27/2023 08:23:00 1.1 0.6-1.2 (mg/dL) Final Glomerular filtration rate/1.73 sq M.predicted [Volume Rate/Area] in Serum, Plasma or Blood by Creatinine-based formula (CKD-EPI) 11/27/2023 08:23:00 82 >=60 (mL/min) Final eGFR is calculated based on the CKD-EPI 2020 equation. Sodium 11/27/2023 08:23:00 141 135-146 (m mol/L) Final Potassium 11/27/2023 08:23:00 4.1 3.5-5.1 (m mol/L) Final Cl 11/27/2023 08:23:00 101 98-107 (mm ol/L) Final CO2 11/27/2023 08:23:00 27 22-32 (mmo l/L) Final Anion gap 11/27/2023 08:23:00 13 7-15 (mmol /L) Final Glucose 11/27/2023 08:23:00 98 70-120 (mg /dL) Final Albumin 11/27/2023 08:23:00 4.6 3.8-5.0 (g /dL) Final AST (Aspartate aminotransferase) 11/27/2023 08:23:00 19 10-50 (U/L) Final Alk Phos 11/27/2023 08:23:00 123 35-130 (U/ L) Final Bilirubin, Total 11/27/2023 08:23:00 0.4 <=1 .2 (mg/dL) Final Calcium 11/27/2023 08:23:00 9.1 8.4-10.2 ( mg/dL) Final Protein 11/27/2023 08:23:00 6.3 6.0-8.3 (g /dL) Final ALT (Alanine aminotransferase) 11/27/2023 08:23:00 19 10-50 (U/L) Final Performing Location [facility] [place] - [address] [facility] [address]
--- OUTSIDE RECORDS SUMMARY | 2024-03-26 16:30 | External Medical Summary ---
Author Name Unknown Address Unknown Organization K01:LABOR[facility]ORY [facility] [place] - [address] [facility] [address] Laboratory Report Ordering Provider Test Date Status KALPESH SERRANO 11/20/2023 08:09:00 Final Observation Date Value Abnormality Reference (Units ) Status WBC, Total 11/20/2023 08:09:00 4.72 4.00-10.80 (K/uL) Final RBC 11/20/2023 08:09:00 4.19 4.50-5.25 (M/uL) Final Hemoglobin 11/20/2023 08:09:00 14.9 14.0-16.8 (g/dL) Final HCT 11/20/2023 08:09:00 44.7 40.0-48.4 (%) Final MCV 11/20/2023 08:09:00 106.7 82.0-99.5 (fL) Final MCH 11/20/2023 08:09:00 35.6 27.0-34.0 (pg) Final MCHC 11/20/2023 08:09:00 33.3 32.0-36.0 (g/dL) Final RDW 11/20/2023 08:09:00 14.3 11.5-15.5 (%) Final Platelets 11/20/2023 08:09:00 128 Below low normal 140-400 (K/uL) Final MPV 11/20/2023 08:09:00 10.5 6.6-11.1 (fL) Final Nucleated erythrocytes/100 leukocytes [Ratio] in Blood by Automated count 11/20/2023 08:09:00 0 <=0 (/100 WBCs) Final Performing Location LABORATORY [facility] [place] - [address] [place] [address]
--- OUTSIDE RECORDS SUMMARY | 2024-03-26 16:30 | External Medical Summary | Summary of Care ---
Author Name Unknown Organization [facility] Address [address] [facility] [place] [address] Phone [phone] Care Team Providers Care Merchant Miller Name Role Phone Michael Collins MD Primary Care Provi zehra Reason for Visit * Reason Comments Chemotherapy Darzalex Faspro * Episode Based Medications (Routine) - Authorized Specialty Diagnoses / Procedures Referred By Contjuanito t Referred To Contact Diagnoses Multiple myeloma not having achieved remission (HCC) Procedures CA DARATUMUMAB, HYALURONIDASE CA INJ, CYCLOPHOSPHAMIDE, NOS Morgan Vásquez MD 200 [facility] [place] [address] Anc Hem/Onc Amena You DEPT CLOSED - 03/26/23 200 [facility] [place] [address] Referral ID Status Reason Start Date Expiration Date V isits Requested Visits Authorized [id number] Authorized 05/28/2022 05/12/2099 99 99 Encounter Details Date Type Department Care Team (Latest Contact Info) Description 10/17/2023 8:30 AM EDT Hem/Onc Treatment Hematology/Oncology Treatment, [place] [address] [place] [address] Kenyatta, Chair 7 Hem Onc [facility] 200 [facility] [place] [address] Multiple myeloma not having achieved remission (HCC)* Allergies No known active allergiesdocumented as of this encounter (statuses as of 11/20/2023) Medications Medication Sig Dispensed Refills Start Date End Date Status THEOPHYLLINE ER 450 MG PO [id number]: 2 tablet at bedtime Take by mouth. Indications: 2 tablet at bedtime Active B COMPLEX FORMULA 1 PO TABS 1 daily Active MULTIVITAMINS PO CAPS 1 daily Active FOLIC ACID 1 MG PO TABS Take by mouth daily. Active METOPROLOL XL TBCR 50 MG OR 1 tab daily 5 Active hydrochlorothiaz santos (HYDRODIURIL) 25 MG Tablet Take 1 Tablet by mouth in the morning. 1 tab daily . 5 5 Active losartan (COZAAR) 50 MG Tablet Take 1 Tablet by mouth in the morning. 1 tab daily. 5 5 Active VENTOLIN HFA 108 (90 BASE) MCG/ACT inhaler As needed 11 5 Active omega-3 1000 MG CAPS Take by mouth. Active Multiple Vitamins-Mineral s ([facility] IMMUNITY SUPPORT) CHEW [...] into nostril at bedtime. PATIENT INFORMATION: Kris Galivn [address] [place] [address] [employer]: [employer] ORDER: Please start nocturnal oxygen via nasal [...] signed) Ish Caba MD Pulmonary Medicine, [address] [place] [address] [place] [facility] Medical License Number: [id number] 1 Each 3 Active metFORMIN HCl ER [...] 3 Active Acyclovir 800 MG Oral Tablet (Zovirax)Indicat [...] 4 Active dexAMETHasone 4 MG Oral Tablet (Decadron)Indica tions:Multiple myeloma not having achieved remission (HCC) Take 10 tablets once a week on weeks without Darzalex. Take 5 tablets on week of Darzalex injection. 35 Tablet 2 4 Active Ondansetron HCl 8 MG Oral Tablet (Zofran)Indicati ons:Multiple myeloma (HCC) Take 1 Tablet by mouth every 8 hours as needed for Nausea. 90 Tablet 1 4 Active Prochlorperazine Maleate 10 MG Oral [...] 1 tab pm 60 Capsule 2 4 10/20/19 24 Discontinued(Re fill) Apixaban 2.5 MG Oral Tablet (Eliquis)Indicat ions:Multiple myeloma not having achieved remission (HCC),Prothrombi n gene mutation (HCC) Take 1 Tablet by mouth in the morning and 1 Tablet before bedtime. 30 Tablet 5 4 10/17/19 24 Discontinued Pomalidomide 4 MG Oral Capsule (Pomalyst)Indica tions:Multiple myeloma not having achieved remission (HCC) Take 4 mg by mouth daily. For 21 days, followed by 7 days off. 21 Capsule 4 10/17/19 24 Discontinued Hospital, Clinic, or Other Facility [...] as of this encounter (statuses as of 11/20/2023) Active Problems Problem Noted Date Diagnosed Date [...] as of this encounter (statuses as of 11/20/2023) Resolved Problems Problem Noted Date Diagnosed Date Resolved Date Asthma in remission 08/28/2022 08/29/19 Asthma, mild persistent 08/28/202208/11 Asthma, severe persistent 08/28/2022 Stem cell transplant candidate 08/17/2019 09/02/2019 documented as of this encounter (statuses as of 11/20/2023) Immunizations Name Administration Dates Next Due COVID-19 [...] drink = 0.6 oz pur e alcohol) Sex and Gender Information Value Date Recorded [...] Nursing Notes * Orville Lopez, RN - 10/17/2023 9:54 AM EDT Exam room 2. Pt denies any issues at this time. States he is feeling well, denies any issues with his previous injections. Pre-treatment medications given per orders. Injection given into LLA per patient request.Pt tolerated procedure well without issues, denies any symptoms. Ambulated from exam room in stablecondition. documented in this encounter Plan of Treatment Upcoming Encounters Date Type Department Care Team (Latest Contact Info) Description 11/20/2023 7:05 AM EDT Laboratory Lab Mobile Phlebotomy [facility] [address] [place] [address] [facility] Draw [address] [place] [address] Multiple myeloma in remission (HCC) 11/21/2023 8:45 AM EDT Hem/Onc Treatment Hematology/Oncology Treatment, [place] [address] [place] [phone] Park, Chair 2 Hem Onc Scenery [address] [place] [address] 11/27/2023 7:05 AM EDT Laboratory Lab Mobile Phlebotomy [facility] [address] [place] [address] M[facility], Gml [facility] Home Draw [address] [facility] [place] [address] 11/28/2023 8:30 AM EDT [facility] 200 [place] [phone] Kenyatta, Chair 9 Hem Onc Scenery 200 [facility] [place] [address] 12/04/2023 7:05 AM EDT Laboratory Lab Mobile Phlebotomy [facility] [address] [place] [address] [facility], [facility] Draw [address] [facility] [place] [address] 12/05/2023 8:45 AM EDT [facility] 200 [place] [address] Kenyatta, Chair 2 Hem Onc Scenery 200 [facility] [place] [address] 12/11/2023 7:00 AM EDT Laboratory Lab Mobile Phlebotomy [facility] [address] [place] [address] Mv[facility], Gml Mobile Home Draw [address] [place] [address] 12/12/2023 11:15 AM EDT Office Visit Hematology/Oncology [facility] [place] 200 [place] [phone] Morgan Vásquez MD 200 [place] [address] 12/12/2023 11:45 AM EDT Hem/Onc Treatment Hematology/Oncology Treatment, [place] [address] [place] [address] 12/18/2023 7:05 AM EDT Laboratory Lab Mobile Phlebotomy [facility] [address] [place] [address] M[facility], Gml [facility] Draw [address] [place] [address] 12/25/2023 7:05 AM EDT Laboratory Lab Mobile Phlebotomy [facility] [address] [place] [address] Mvmg, Gml [facility] Draw [address] [place] [address] 01/01/2024 7:05 AM EDT Laboratory Lab Mobile Phlebotomy [facility] [address] [place] [address] Mvmg, Gml [facility] Draw [address] [place] [address] 01/08/2024 7:00 AM EDT Laboratory Lab Mobile Phlebotomy [facility] [address] [place] [address] M[facility]mg, Gml [facility] Draw [address] [place] [address] 01/15/2024 7:05 AM EDT Laboratory Lab Mobile Phlebotomy [facility] [address] [place] [address] Mvmg, Gml [facility] Draw [address] [place] [address] 01/22/2024 7:05 AM EDT Laboratory Lab Mobile Phlebotomy [facility] [address] [place] [address] Mvmg, Gml [facility] Draw [address] [place] [address] 01/29/2024 7:05 AM EDT Laboratory Lab Mobile Phlebotomy [facility] [address] [place] [address] Mvmg, Gml [facility] Draw [address] [place] [address] 02/05/2024 7:00 AM EDT Laboratory Lab Mobile Phlebotomy [facility] [address], [place] [address] Mv[facility], Gml Mobile Home Draw [address], [place] [address] 02/05/2024 8:40 AM EDT Office Visit Neurology [facility] [place] [address] [facility] [address] [place], [place] [address] Octavia Goins PA-C [address] [facility] [address] [place], [place] [address] 02/07/2024 8:00 AM EDT Office Visit Rheumatology [address] [place] [phone] Darnell Higgins MD [address], [place] [address] 02/12/2024 7:05 AM EDT Laboratory Lab Mobile Phlebotomy [facility] [address], [place] [address] Mv[facility], Gml [facility] Draw [address], [place] [address] 02/19/2024 7:05 AM EDT Laboratory Lab Mobile Phlebotomy [facility] [address], [place] [address] Mvmg, Gml [facility] Draw [address], [place] [address] 02/26/2024 7:05 AM EDT Laboratory Lab Mobile Phlebotomy [facility] [address] [place] [address] Mvmg, Gml [facility] Draw [address] [place] [address] 03/04/2024 7:00 AM EDT Laboratory Lab Mobile Phlebotomy [facility] [address] [place], [place] [address] Mvmg, Gml [facility] Draw [address] [place], [place] [address] 03/11/2024 7:05 AM EDT Laboratory Lab Mobile Phlebotomy [facility] [address] [place] [address] Mvmg, Gml Mobile Home Draw 25[address] [place] [address] 03/18/2024 7:05 AM EST Laboratory Lab Mobile Phlebotomy [facility] [address] [place] [address] Mvmg, Gml Mobile Home Draw [address] [place] [address] 03/25/2024 7:05 AM EST Laboratory Lab Mobile Phlebotomy [facility] [address] [place] [address] Mvmg, Gml Mobile Home Draw [address] [place] [address] 04/01/2024 7:00 AM EST Laboratory Lab Mobile Phlebotomy [facility] [address] [place] [address] Mvmg, Gml Mobile Home Draw [address] [place] [address] 04/08/2024 7:05 AM EST Laboratory Lab Mobile Phlebotomy [facility] [address] [place] [address] Mvmg, Gml Mobile Home Draw [address] [place] [address] 04/15/2024 7:05 AM EST Laboratory Lab Mobile Phlebotomy [facility] [address] [facility] [address] Mvmg, Gml Mobile Home Draw [address] [facility] [address] 04/22/2024 7:05 AM EST Laboratory Lab Mobile Phlebotomy [facility] [address] [place] [address] Mvmg, Gml Mobile Home Draw [address] [facility] [address] 04/29/2024 7:05 AM EST Laboratory Lab Mobile Phlebotomy [facility] [address] [facility] [address] Mvmg, Gml Mobile Home Draw 25[address] [facility] [place] [address] 05/05/2024 7:05 AM EST Laboratory Lab Mobile Phlebotomy [facility] [address] [place] [address] Mvmg, Gml Mobile Home Draw [address] [facility] [place] [address] 09/02/2024 8:20 AM EDT Office Visit Pulmonary Medicine, [facility] [address] [place] [address] Ish Caba MD [address] [place] [address] 05/03/2025 7:40 AM EST Office Visit Dermatology [address] [place] [address] Albina Romo PA-C [address] [place] [address] [place] [address] Health Maintenance Due Date Last Done Comments Depression Screening 1976 Albumin/Creatinine Ratio 1982 Cologuard 2009 Fecal Occult Blood Test 2009 Sigmoidoscopy 2009 COVID-19 Vaccine ( season) 2023 01/28/2022, 09/26/2021, 01/17/2021, Additional history exists Colonoscopy 03/03/2023 03/03/2018, 03/03/2018 Colorectal Cancer Screening 03/03/2023 GFR 11/12/2024 11/13/2023, 10/12, 10/30/2023, Additional history exists Lipid Panel 11/18/2024 11/19/2019, 07/11, 07/29/2009 Diabetes Screening 11/12/2026 11/13/2023, 0 11/06/2023, 10/30/2023, Additional history exists DTaP,Tdap,and Td Vaccines (4 [...] this encounter Medical Devices Implanted Type Area [employer] Video Editor Device Identifier Shelf Expiration Date Model / Serial / Lot Mesh Plug Xlarge [id number] - [id number] Implanted:Qty: 1 on 12/09/2020 by John Zaragoza MD at OR [facility] Left: Groin CR BARD : DAVOL 05/09/2023 [id number] / / [id number] documented as of this encounter Visit Diagnoses [...] mg 650 mg, Oral, ONCE, On Lilibeth 10/17/23 at 0915, For 1 dose, Maximum of 4 grams (4000 mg) per day. Given 10/17/2023 9:27 AM EDT 650 mg Upcdtlddbdc-pveyaflrdzbvu-x ihj (Darzalex Faspro) 1800 mg-02153 units/ 15 ml subcut inj 15 mL, Subcutaneous, ONCE, On Lilibeth 10/17/23 at 0945, For 1 dose, Inject subcutanteously into abdomen over 3 to 5 minutes Given 10/17/2023 9:37 AM EDT 15 mL Abdomen Left Lower dexAMETHasone (Decadron) tab 20 mg 20 mg, Oral, ONCE, On Lilibeth 10/17/23 at 0845, For 1 dose Given 10/17/2023 9:27 AM EDT 20 mg diphenhydrAMINE (Benadryl) cap 50 mg 50 mg, Oral, ONCE, On Lilibeth 10/17/23 at 0915, For 1 dose Given 10/17/2023 9:27 AM EDT 50 mg documented in this encounter Advance Directives [...] Power of Attor coco? No Care Teams Merchant Miller Relationship Specialty Start Date End Date Michael Collins MD [address] [place] [address] [place] [address] PCP - General Internal Medicine 03/01/14 documented as of this encounter
--- OUTSIDE RECORDS SUMMARY | 2024-03-26 16:30 | External Medical Summary | Summary of Care ---
Author Name Unknown Organization [facility] Address [address] [facility] [place] [address] Phone [phone] Care Team Providers Care Head Of Loss Prevention Name Role Phone Michael Collins MD Primary Care Provi zehra Reason for Visit * Reason Comments Chemotherapy Darzalex Faspro * Episode Based Medications (Routine) - Authorized Specialty Diagnoses / Procedures Referred By Contjuanito t Referred To Contact Diagnoses Multiple myeloma not having achieved remission (HCC) Procedures CT DARATUMUMAB, HYALURONIDASE CT INJ, CYCLOPHOSPHAMIDE, NOS Morgan Vásquez MD 200 [facility] [place] [address] Anc Hem/Onc Amena You DEPT CLOSED - 03/26/23 200 [facility] [place] [address] Referral ID Status Reason Start Date Expiration Date V isits Requested Visits Authorized [id number] Authorized 05/28/2022 05/12/2099 99 99 Encounter Details Date Type Department Care Team (Latest Contact Info) Description 10/17/2023 8:30 AM EDT Hem/Onc Treatment Hematology/Oncology Treatment, [place] [address] [place] [address] Kenyatta, Chair 7 Hem Onc [facility] 200 [facility] [place] [address] Multiple myeloma not having achieved remission (HCC)* Allergies No known active allergiesdocumented as of this encounter (statuses as of 11/20/2023) Medications Medication Sig Dispensed Refills Start Date End Date Status THEOPHYLLINE ER 450 MG PO [id number]: 2 tablet at bedtime Take by mouth. [...] Take by mouth. Active Multiple Vitamins-Mineral s ([facility] IMMUNITY SUPPORT) CHEW Take [...] at bedtime. PATIENT INFORMATION: Kris Galvin [address] [place] [address] [employer]: [employer] ORDER: Please start nocturnal oxygen via nasal [...] signed) Ish Caba MD Pulmonary Medicine, [address] [place] [address] [facility] Medical License Number: [id number] 1 Each 3 Active metFORMIN HCl ER [...] Care Team (Late st Contact Info) Description 11/21/2023 8:45 AM EDT Hem/Onc Treatment Hematology/Oncology Treatment, [place] [address] [place] [address] Park, Chair 2 Hem Onc [address] [place] [address] 11/27/2023 7:05 AM EDT Laboratory Lab Mobile Phlebotomy [facility] [address] [place] [address] Mvmg, Gml Mobile Home Draw [address] [place] [address] 11/28/2023 8:30 AM EDT [facility] 200 [facility] [place] [address] Park, Chair 9 Hem Onc Scenery 200 [place] [address] 12/04/2023 7:05 AM EDT Laboratory Lab Mobile Phlebotomy [facility] [address] [place] [address] Mvmg, Gml Mobile Home Draw [address] [place] [address] 12/05/2023 8:45 AM EDT [facility] 200 [facility] [place] [phone] Kenyatta, Chair 2 Hem Onc Scenery 200 [place] [address] 12/11/2023 7:00 AM EDT Laboratory Lab Mobile Phlebotomy [facility] [address] [place] [address] Mvmg, Gml Mobile Home Draw [address] [place] [address] 12/12/2023 11:15 AM EDT Office Visit Hematology/Oncology [facility] [place] 200 [facility] [place] [phone] Morgan Vásquez MD 200 [place] [address] 12/12/2023 11:45 AM EDT Hem[facility] 200 [facility] [place] [phone] 12/18/2023 7:05 AM EDT Laboratory Lab Mobile Phlebotomy [facility] [address] [place] [address] Mvmg, Gml Mobile Home Draw [address] [place] [address] 12/25/2023 7:05 AM EDT Laboratory Lab Mobile Phlebotomy [facility] [address] [facility] [place] [address] Mvmg, Gml Mobile Home Draw [address] [facility] [place] [address] 01/01/2024 7:05 AM EDT Laboratory Lab Mobile Phlebotomy [facility] [address] [place] [address] Mvmg, Gml Mobile Home Draw [address] [facility] [place] [address] 01/08/2024 7:00 AM EDT Laboratory Lab Mobile Phlebotomy [facility] [address] [place] [address] Mvmg, Gml Mobile Home Draw [address] [facility] [place] [address] 01/15/2024 7:05 AM EDT Laboratory Lab Mobile Phlebotomy [facility] [address] [facility] [place] [address] Mvmg, Gml Mobile Home Draw [address] [facility] [place] [address] 01/22/2024 7:05 AM EDT Laboratory Lab Mobile Phlebotomy [facility] [address] [facility] [place] [address] Mvmg, Gml Mobile Home Draw [address] [facility] [place] [address] 01/29/2024 7:05 AM EDT Laboratory Lab Mobile Phlebotomy [facility] [address] [place] [address] Mvmg, Gml Mobile Home Draw [address] [facility] [place] [address] 02/05/2024 7:00 AM EDT Laboratory Lab Mobile Phlebotomy [facility] [address] [place] [address] Mvmg, Gml Mobile Home Draw [address] [place] [address] 02/05/2024 8:40 AM EDT Office Visit Neurology [facility] [place] 200 [facility] [place], [place] [address] Octavia Goins PA-C 200 [facility] [place], [place] [address] 02/07/2024 8:00 AM EDT Office Visit Rheumatology [address] [place] [phone] Darnell Higgins MD [address] [place] [address] 02/12/2024 7:05 AM EDT Laboratory Lab Mobile Phlebotomy [facility] [address] [place] [address] Mvmg, Gml Mobile Home Draw [address] [place], [place] [address] 02/19/2024 7:05 AM EDT Laboratory Lab Mobile Phlebotomy [facility] [address] [place], [place] [address] Mvmg, Gml Mobile Home Draw [address] [place], [place] [address] 02/26/2024 7:05 AM EDT Laboratory Lab Mobile Phlebotomy [facility] [address] [place], [place] [address] Mvmg, Gml Mobile Home Draw [address] [place], [place] [address] 03/04/2024 7:00 AM EDT Laboratory Lab Mobile Phlebotomy [facility] [address] [place], [place] [address] Mvmg, Gml Mobile Home Draw [address] [place] [address] 03/11/2024 7:05 AM EDT Laboratory Lab Mobile Phlebotomy [facility] [address] [place], [place] [address] Mvmg, Gml Mobile Home Draw [address] [place], [place] [address] 03/18/2024 7:05 AM EST Laboratory Lab Mobile Phlebotomy [facility] [address] [facility] [place] [address] Mvmg, Gml Mobile Home Draw [address] [facility] [place] [address] 03/25/2024 7:05 AM EST Laboratory Lab Mobile Phlebotomy [facility] [address] [facility] [place] [address] Mvmg, Gml Mobile Home Draw [address] [facility] [place] [address] 04/01/2024 7:00 AM EST Laboratory Lab Mobile Phlebotomy [facility] [address] [facility] [place] [address] Mvmg, Gml Mobile Home Draw [address] [facility] [place] [address] 04/08/2024 7:05 AM EST Laboratory Lab Mobile Phlebotomy [facility] [address] [facility], [place] [address] Mvmg, Gml Mobile Home Draw [address] [facility] [place] [address] 04/15/2024 7:05 AM EST Laboratory Lab Mobile Phlebotomy [facility] [address] [facility], [place] [address] Mvmg, Gml Mobile Home Draw [address] [facility] [place] [address] 04/22/2024 7:05 AM EST Laboratory Lab Mobile Phlebotomy [facility] [address] [facility], [place] [address] Mvmg, Gml Mobile Home Draw [address] [facility] [place] [address] 04/29/2024 7:05 AM EST Laboratory Lab Mobile Phlebotomy [facility] [address] [facility], [place] [address] Mvmg, Gml Mobile Home Draw [address] [facility], [place] [address] 05/05/2024 7:05 AM EST Laboratory Lab Mobile Phlebotomy [facility] [address] [facility] [place] [address] Mvmg, Gml Mobile Home Draw [address] [place] [address] 09/02/2024 8:20 AM EDT Office Visit Pulmonary Medicine, [facility] [address] [place] [address] Ish Caba MD [address] [place] [address] 05/03/2025 7:40 AM EST Office Visit Dermatology [address] [place] [address] Albina Romo PA-C [address] [place] [address] [place] [address] Health Maintenance Due Date Last Done Comments [...] this encounter Medical Devices Implanted Type Area Pickling Solution Maker Device Identifier Shelf Expiration Date Model / Serial / Lot Mesh Plug Xlarge [id number] - [id number] Implanted:Qty: 1 on 12/09/2020 by John Zaragoza MD at OR [facility] Left: Groin CR BARD : DAVOL 05/09/2023 [id number] / / [id number] documented as of this encounter Visit Diagnoses Diagnosis Multiple myeloma not having achieved remission (HCC)- Primary Multiple myeloma, without mention of having achieved remission documented in this encounter Administered Medications Inactive Administered Medications - up to 3 most recent administrations Medication Order MAR Action Action Date Dose Rate Site Acetaminophen (Tylenol) tab 650 mg 650 mg, Oral, ONCE, On Sat10/17/23 at 0915, For 1 dose, Maximum of 4 grams (4000 mg) per day. Given 10/17/2023 9:27 AM EDT 650 mg Fxhpuvomzxs-cvwxzcbxiokpz-r ihj (Darzalex Faspro) 1800 mg-90434 units/ 15 ml subcut inj 15 mL, Subcutaneous, ONCE, On Sat10/17/23 at 0945, For 1 dose, Inject subcutanteously into abdomen over 3 to 5 minutes Given 10/17/2023 9:37 AM EDT 15 mL Abdomen Left Lower dexAMETHasone (Decadron) tab 20 mg 20 mg, Oral, ONCE, On Sat10/17/23 at 0845, For 1 dose Given 10/17/2023 9:27 AM EDT 20 mg diphenhydrAMINE (Benadryl) cap 50 mg 50 mg, Oral, ONCE, On Sat10/17/23 at 0915, For 1 dose Given 10/17/2023 [...] Power of Attor coco? No Care Teams Head Of Loss Prevention Relationship Specialty Start Date End Date Michael Collins MD [address] [place] [address] [place] [address] PCP - General Internal Medicine 03/01/14 documented as of this encounter
--- OUTSIDE RECORDS SUMMARY | 2024-03-26 16:30 | External Medical Summary | Summary of Care ---
Author Name Unknown Organization [facility] Address [address] [facility] [place] [address] Phone [phone] Care Team Providers Care Yard Caller Name Role Phone Michael Collins MD Primary Care Provi zehra Reason for Visit * Reason Comments Chemotherapy Cytoxan. * Episode Based Medications (Routine) - Authorized Specialty Diagnoses / Procedures Referred By Contac t Referred To Contact Diagnoses Multiple myeloma not having achieved remission (HCC) Procedures MT DARATUMUMAB, HYALURONIDASE MT INJ, CYCLOPHOSPHAMIDE, NOS Morgan Vásquez MD 200 [place] [id number] Anc Hem/Onc Amena You DEPT CLOSED - 03/26/23 200 [facility] [place] [id number] Referral ID Status Reason Start Date Expiration Date V isits Requested Visits Authorized [id number] Authorized 05/28/2022 05/12/2099 99 99 Encounter Details Date Type Department Care Team (Latest Contact Info) Description 10/24/2023 9:30 AM EDT Hem/Onc Treatment Hematology/Oncolog y Treatment, [place] 200 [facility] [place] [id number] Multiple myeloma not having achieved remission (HCC)*; Encounter for central line care; Encounter for antineoplastic chemotherapy Allergies No known active allergiesdocumented as of this encounter (statuses as of 11/20/2023) Medications Medication Sig Dispensed Refills Start Date End Date Status THEOPHYLLINE ER 450 MG PO FH37Terlsnamwsx:2 tablet at bedtime Take by mouth. Indications: [...] nostril at bedtime. PATIENT INFORMATION: Kris Galvin [address] [place] [address] [employer]: [employer] ORDER: Please start nocturnal oxygen via nasal [...] (electronically signed) Ish Caba MD Pulmonary Medicine, [address] [place] [address] [place] [facility] Medical License Number: [id number] 1 Each 09/21/2022 Active metFORMIN HCl ER [...] mRNA, LNP-s, No Pre serve, 2-Dose Series ([employer]) 01/17/2021,08/05/2020,07/08/2020 COVID-19, LNP-s, No Preserve , Bryant-sucrose, Ages 12+ ([employer]) 09/26/2021 DTaP Dipth/Tet/Acell Pertussis ([employer]), Peds 02/23/2021,11/11/2020,09/09/2020 [...] Sign Reading Time Taken Comments Blood Pressure 127/87 10/24/2023 9:30 AM EDT Pulse 84 10/24/2023 9:30 AM EDT Temperature 36.6 C (97.9 F) 10/24/2023 9:30 AM ED T Respiratory Rate 18 10/24/2023 9:30 AM EDT Oxygen Saturation 94% 10/24/2023 9:30 AM EDT Inhaled Oxygen Concentration - - Weight 132 kg (291 lb) 10/24/2023 9:30 AM EDT Height - - Body Mass [...] Nursing Notes * Nimisha Zhang RN - 10/24/2023 12:16 PM EDT Goals: Patient will remain free from injury. Possible barriers to meeting goals: Fall risk d/t ambulation with IV pole. Stability of the patient: Moderately stable - low risk of patient condition declining or worsening Summary regarding today's goals: Met: Patient remained free of injury. Patient tolerated infusion well. Discharged in stable condition. * Nimisha Zhang RN - 10/24/2023 9:56 AM EDT Chair 12. at chairside. Patient arrived for Cytoxan with no acute complaints. Patient was oriented to infusion process, verbalized understanding. PIV established. Chemotherapy/Immunotherapy agents: CYTOXAN Consent for chemotherapy drug treatment complete, dated, and signed? yes, date - 10/17/23 Treatment lab parameters met? Yes Has treatment weight changed > than 10%? No Treatment preauthorized? Yes VITALS Filed Vitals: 10/24/23 0930 BP: 127/87 Pulse: 84 Resp: 18 Temp: 36.6 C (97.9 F) TempSrc: Tympanic SpO2: 94% Weight: 132 kg (291 lb) [...] during treatment. PRE-TREATMENT ASSESSMENT: NEURO: denies symptoms CV/RESP: denies [...] 8:45 AM EDT Hem/Onc Treatment Hematology/[address] [phone] Kenyatta, Chair 2 Hem Onc [address] [place] [address] 11/27/2023 7:05 AM EDT Laboratory Lab Mobile Phlebotomy [facility] [address] [place] [address] Mvmg, Gml Mobile Home Draw [address] [place] [address] 11/28/2023 8:30 AM EDT Hem/Onc Treatment Hematology/Oncology Treatment, [place] [address] [facility] [place] [phone] Kenyatta, Chair 9 Hem Onc [address] [place] [address] 12/04/2023 7:05 AM EDT Laboratory Lab Mobile Phlebotomy [facility] [address] [place] [address] Mvmg, Gml Mobile Home Draw [address] [place] [address] 12/05/2023 8:45 AM EDT [facility] 200 [facility] [place] [phone] Kenyatta, Chair 2 Hem Onc [address] [place] [address] 12/11/2023 7:00 AM EDT Laboratory Lab Mobile Phlebotomy [facility] [address] [place] [address] Mvmg, Gml Mobile Home Draw 2520 [facility] [place], [place] [address] 12/12/2023 11:15 AM EDT Office Visit Hematology/Oncology [facility] 200 [place] [phone] Morgan Vásquez MD 200 [facility] [address] 12/12/2023 11:45 AM EDT Hem[facility] 200 [facility] [place] [address] 12/18/2023 7:05 AM EDT Laboratory Lab Mobile Phlebotomy [facility] [address] [place] [address] Mvmg, Gml Mobile Home Draw [address] [place] [address] 12/25/2023 7:05 AM EDT Laboratory Lab Mobile Phlebotomy [facility] [address] [place] [address] Mvmg, Gml Mobile Home Draw [address] [place] [address] 01/01/2024 7:05 AM EDT Laboratory Lab Mobile Phlebotomy [facility] [address] [place] [address] Mvmg, Gml Mobile Home Draw [address] [place] [address] 01/08/2024 7:00 AM EDT Laboratory Lab Mobile Phlebotomy [facility] [address] [place], [place] [address] Mvmg, Gml Mobile Home Draw [address] [place] [address] 01/15/2024 7:05 AM EDT Laboratory Lab Mobile Phlebotomy [facility] [address] [place] [address] Mvmg, Gml Mobile Home Draw [address] [place] [address] 01/22/2024 7:05 AM EDT Laboratory Lab Mobile Phlebotomy [facility] [address] [place] [place] [address] Mvmg, Gml Mobile Home Draw [address] [place] [address] 01/29/2024 7:05 AM EDT Laboratory Lab Mobile Phlebotomy [facility] [address] [place] [address] Mvmg, Gml Mobile Home Draw [address] [place] [address] 02/05/2024 7:00 AM EDT Laboratory Lab Mobile Phlebotomy [facility] [address] [place] [address] Mvmg, Gml Mobile Home Draw [address] [place] [address] 02/05/2024 8:40 AM EDT Office Visit Neurology State Zahraa Abraham [address] [place], [place] [address] Octavia Goins PA-C [address] [place], [place] [address] 02/07/2024 8:00 AM EDT Office Visit Rheumatology [address] [place] [phone] Darnell Higgins MD 2520 [place] [address] 02/12/2024 7:05 AM EDT Laboratory Lab Mobile Phlebotomy [facility] [address]20 [facility] [place] [address] Mvmg, Gml Mobile Home Draw 2520 [facility] [place] [address] 02/19/2024 7:05 AM EDT Laboratory Lab Mobile Phlebotomy [facility] [address] [facility] [place] [address] Mvmg, Gml Mobile Home Draw [address] [facility] [place] [address] 02/26/2024 7:05 AM EDT Laboratory Lab Mobile Phlebotomy [facility] [address] [place] [address] Mvmg, Gml Mobile Home Draw [address] [facility] [place] [address] 03/04/2024 7:00 AM EDT Laboratory Lab Mobile Phlebotomy [facility] [address] [place] [address] Mvmg, Gml Mobile Home Draw [address] [place] [address] 03/11/2024 7:05 AM EDT Laboratory Lab Mobile Phlebotomy [facility] 2520 [place] [address] Mvmg, Gml Mobile Home Draw 2520 [facility] [place] [address] 03/18/2024 7:05 AM EST Laboratory Lab Mobile Phlebotomy [facility] 25[address] [place] [address] Mvmg, Gml Mobile Home Draw 2520 [facility] [place] [address] 03/25/2024 7:05 AM EST Laboratory Lab Mobile Phlebotomy [facility] [address] [place] [address] Mvmg, Gml Mobile Home Draw 25[address] [place] [address] 04/01/2024 7:00 AM EST Laboratory Lab Mobile Phlebotomy [facility] 2520 [facility] [place] [address] Mvmg, Gml Mobile Home Draw 2520 [place] [address] 04/08/2024 7:05 AM EST Laboratory Lab Mobile Phlebotomy [facility] [address] [place] [address] Mvmg, Gml Mobile Home Draw [address] [place] [address] 04/15/2024 7:05 AM EST Laboratory Lab Mobile Phlebotomy [facility] [address] [facility] [place] [address] Mvmg, Gml Mobile Home Draw 25[address] [place] [address] 04/22/2024 7:05 AM EST Laboratory Lab Mobile Phlebotomy [facility] [address] [place] [address] Mvmg, Gml Mobile Home Draw [address] [place] [address] 04/29/2024 7:05 AM EST Laboratory Lab Mobile Phlebotomy [facility] [address] [place] [address] Mvmg, Gml Mobile Home Draw 25[address] [facility] [place] [address] 05/05/2024 7:05 AM EST Laboratory Lab Mobile Phlebotomy [facility] [address] [place] [address] Mvmg, Gml Mobile Home Draw [address] [place] [address] 09/02/2024 8:20 AM EDT Office Visit Pulmonary Medicine, [facility] [address] [place] [address] Ish Caba MD [address] [place] [address] 05/03/2025 7:40 AM EST Office Visit Dermatology [address] [place] [address] Albina Romo PA-C [address] [place] [address] [place] [address] Health Maintenance Due Date Last Done Comments [...] (MENACTRA/MENVEO) Aged Out 10/25/2020, 09/09/2020 No longer neymar kuo based on patient's age to complete this topic Hepatitis B Vaccine Completed 02/23/2021, 10/25/2020, 09/09/2020 Pneumococcal Vaccine: Pediatrics (0 to 5 Years) and At-Risk Patients (6 to 64 Years) Completed 12/25/2021, 03/02/2021, 09/09/2020, Additional history exists HPV (Gardasil) Vaccine Aged Out No lo nger eligible based on patient's age to complete this topic documented as of this encounter Medical Devices Implanted Type Area Calciner Feeder Device Identifier Shelf Expiration Date Model / Serial / Lot Mesh Plug Xlarge [id number] - [id number] Implanted:Qty: 1 on 12/09/2020 by John Zaragoza MD at OR [facility] Left: Groin CR BARD : DAVOL 05/09/2023 [id number] / / [id number] documented as of this encounter Visit Diagnoses Diagnosis Multiple myeloma not having achieved remission (HCC)- Primary Multiple myeloma, without mention of having achieved remission Encounter for central line care Fitting and adjustment of vascular catheter Encounter for antineoplastic chemotherapy documented in this [...] not tolerated., ONCE, 1 dose, On Lilibeth 10/24/23 at 1015 Start Infusion 10/24/2023 10:26 AM EDT 740 mg 517.4 mL/hr dexAMETHasone (Decadron) tab 40 mg 40 mg, Oral, ONCE, On Lilibeth 10/24/23 at 1015, For 1 dose Given 10/24/2023 9:52 AM EDT 40 mg NSS infusion FOR HYDRATION Intravenous, at 500 mL/hr Administer over 2 Hours, ONCE, 1 dose, On Lilibeth 10/24/23 at 1015 Start Infusion 10/24/2023 9:46 AM EDT 1,000 mL 500 mL/hr NSS infusion FOR HYDRATION Intravenous, at 50 mL/hr Administer over 10 Hours, CONTINUOUS, Starting on Lilibeth 10/24/23 at 1015, Until Lilibeth 10/24/23 at 1618 Start Infusion 10/24/2023 9:44 AM EDT 500 mL 50 mL/hr ondansetron (Zofran) tab 8 mg 8 mg, Oral, ONCE, On Lilibeth 10/24/23 at 1015, For 1 dose Given 10/24/2023 9:52 AM EDT 8 mg documented in this [...] of Attor coco? No Care Teams Yard Caller Relationship Specialty Start Date End Date [place] Collins MD [address] [place] [address] [place] [address] PCP - General Internal Medicine 03/01/14 documented as of this encounter
--- OUTSIDE RECORDS SUMMARY | 2024-03-26 16:30 | External Medical Summary | Summary of Care ---
Author Name Unknown Organization [facility] Address [address] [facility] [place] [address] Phone [phone] Care Team Providers Care Rubber Production Machine Operator Name Role Phone [place] Collins MD Primary Care Provi zehra Reason for Visit * Reason Comments Chemotherapy Cytoxan. * Episode Based Medications (Routine) - Authorized Specialty Diagnoses / Procedures Referred By Contac t Referred To Contact Diagnoses Multiple myeloma not having achieved remission (HCC) Procedures PA DARATUMUMAB, HYALURONIDASE PA INJ, CYCLOPHOSPHAMIDE, NOS Morgan Vásquez MD 200 [facility] [place] [address] Anc Hem/Onc Amena You DEPT CLOSED - 03/26/23 200 [facility] [place] [address] Referral ID Status Reason Start Date Expiration Date V isits Requested Visits Authorized [id number] Authorized 05/28/2022 05/12/2099 99 99 Encounter Details Date Type Department Care Team (Latest Contact Info) Description 10/24/2023 9:30 AM EDT Hem/Onc Treatment Hematology/Oncolog y Treatment, [place] 200 [facility] [place] [address] Multiple myeloma not having achieved remission (HCC)*; Encounter for central line care; Encounter for antineoplastic chemotherapy Allergies No known active allergiesdocumented as of this encounter (statuses as of 11/20/2023) Medications Medication Sig Dispensed Refills Start Date End Date Status THEOPHYLLINE ER 450 MG PO FO31Rpsgdfppfhw:2 tablet at bedtime Take by mouth. Indications: [...] nostril at bedtime. PATIENT INFORMATION: Kris Galvin [address] [place] [address] [employer]: [employer] ORDER: Please start nocturnal oxygen via nasal [...] (electronically signed) Ish Caba MD Pulmonary Medicine, [address] [place] [address] [place] [facility] Medical License Number: [id number] 1 Each 09/21/2022 Active metFORMIN HCl ER [...] mRNA, LNP-s, No Pre serve, 2-Dose Series ([employer]) 01/17/2021,08/05/2020,07/08/2020 COVID-19, LNP-s, No Preserve , Bryant-sucrose, Ages 12+ ([employer]) 09/26/2021 DTaP Dipth/Tet/Acell Pertussis ([employer]), Peds 02/23/2021,11/11/2020,09/09/2020 [...] 8:45 AM EDT Hem/Onc Treatment Hematology/[address]cology [address], [address] [phone] Kenyatta, Chair 2 Hem Onc [address] [place] [address] 11/27/2023 7:05 AM EDT Laboratory Lab Mobile Phlebotomy [facility] [address] [place] [address] Mvmg, Gml Mobile Home Draw [address] [place] [address] 11/28/2023 8:30 AM EDT Hem/Onc Treatment Hematology/Oncology Treatment, [place] 200 [facility] [place] [phone] Kenyatta, Chair 9 Hem Onc [address] [place] [address] 12/04/2023 7:05 AM EDT Laboratory Lab Mobile Phlebotomy [facility] [address] [place] [address] Mvmg, Gml Mobile Home Draw [address] [place] [address] 12/05/2023 8:45 AM EDT [facility] 200 [facility] [phone] Kenyatta, Chair 2 Hem Onc [address] [place] [address] 12/11/2023 7:00 AM EDT Laboratory Lab Mobile Phlebotomy [facility] [address] [place] [address] Mvmg, Gml Mobile Home Draw 2520 [facility] [place], [place] [address] 12/12/2023 11:15 AM EDT Office Visit Hematology/Oncology [facility] 200 [place] [phone] Morgan Vásquez MD 200 [place] [address] 12/12/2023 11:45 AM EDT Hem[facility] 200 [facility] [place] [phone] 12/18/2023 7:05 AM EDT Laboratory Lab Mobile Phlebotomy [facility] [address] [place] [address] Mvmg, Gml Mobile Home Draw [address] [place] [address] 12/25/2023 7:05 AM EDT Laboratory Lab Mobile Phlebotomy [facility] [address] [place] [address] Mvmg, Gml Mobile Home Draw [address] [place] [address] 01/01/2024 7:05 AM EDT Laboratory Lab Mobile Phlebotomy [facility] [address] [place] [address] Mvmg, Gml Mobile Home Draw [address] [place] [address] 01/08/2024 7:00 AM EDT Laboratory Lab Mobile Phlebotomy [facility] [address] [place], [place] [address] Mvmg, Gml Mobile Home Draw [address] [place] [address] 01/15/2024 7:05 AM EDT Laboratory Lab Mobile Phlebotomy [facility] [address] [place] [address] Mvmg, Gml Mobile Home Draw [address] [place] [address] 01/22/2024 7:05 AM EDT Laboratory Lab Mobile Phlebotomy [facility] [address] [place] [address] Mvmg, Gml Mobile Home Draw [address] [place] [address] 01/29/2024 7:05 AM EDT Laboratory Lab Mobile Phlebotomy [facility] [address] [place] [address] Mvmg, Gml Mobile Home Draw [address] [place] [address] 02/05/2024 7:00 AM EDT Laboratory Lab Mobile Phlebotomy [facility] [address] [place] [address] Mvmg, Gml Mobile Home Draw [address] [place] [address] 02/05/2024 8:40 AM EDT Office Visit Neurology State Zahraa Abraham [address] [place], [place] [address] Octavia Goins PA-C [address] [place], [place] [address] 02/07/2024 8:00 AM EDT Office Visit Rheumatology [address] [place] [phone] Darnell Higgins MD 2520 [facility] [place] [address] 02/12/2024 7:05 AM EDT Laboratory Lab Mobile Phlebotomy [facility] [address]20 [facility] [address] Mvmg, Gml Mobile Home Draw [address] [facility] [address] 02/19/2024 7:05 AM EDT Laboratory Lab Mobile Phlebotomy [facility] [address] [facility] [address] Mvmg, Gml Mobile Home Draw [address] [facility] [place] [address] 02/26/2024 7:05 AM EDT Laboratory Lab Mobile Phlebotomy [facility] [address] [facility] [address] Mvmg, Gml Mobile Home Draw [address] [facility] [address] 03/04/2024 7:00 AM EDT Laboratory Lab Mobile Phlebotomy [facility] [address] [facility] [address] Mvmg, Gml Mobile Home Draw [address] [facility] [address] 03/11/2024 7:05 AM EDT Laboratory Lab Mobile Phlebotomy [facility] [address] [facility] [address] Mvmg, Gml Mobile Home Draw [address] [facility] [address] 03/18/2024 7:05 AM EST Laboratory Lab Mobile Phlebotomy [facility] [address] [facility] [address] Mvmg, Gml Mobile Home Draw [address] [facility] [address] 03/25/2024 7:05 AM EST Laboratory Lab Mobile Phlebotomy [facility] [address] [facility] [address] Mvmg, Gml Mobile Home Draw [address] [facility] [address] 04/01/2024 7:00 AM EST Laboratory Lab Mobile Phlebotomy [facility] [address] [facility] [address] Mvmg, Gml Mobile Home Draw [address] [facility] [address] 04/08/2024 7:05 AM EST Laboratory Lab Mobile Phlebotomy [facility] [address] [facility] [address] Mvmg, Gml Mobile Home Draw [address] [facility] [address] 04/15/2024 7:05 AM EST Laboratory Lab Mobile Phlebotomy [facility] [address] [facility] [address] Mvmg, Gml Mobile Home Draw [address] [facility] [address] 04/22/2024 7:05 AM EST Laboratory Lab Mobile Phlebotomy [facility] [address] [facility] [address] Mvmg, Gml Mobile Home Draw [address] [facility] [address] 04/29/2024 7:05 AM EST Laboratory Lab Mobile Phlebotomy [facility] [address] [facility] [address] Mvmg, Gml Mobile Home Draw [address] [facility] [address] 05/05/2024 7:05 AM EST Laboratory Lab Mobile Phlebotomy [facility] [address] [facility] [address] Mvmg, Gml Mobile Home Draw [address] [facility] [address] 09/02/2024 8:20 AM EDT Office Visit Pulmonary Medicine, [facility] [address] [place] [address] Ish Caba MD [address] [place] [address] 05/03/2025 7:40 AM EST Office Visit Dermatology [address] [place] [address] Albina Romo PA-C [address] [place] [address] [place] [address] Health Maintenance Due Date Last Done Comments [...] this encounter Medical Devices Implanted Type Area Circulation Sales Representative Device Identifier Shelf Expiration Date Model / Serial / Lot Mesh Plug Xlarge [id number] - [id number] Implanted:Qty: 1 on 12/09/2020 by John Zaragoza MD at OR [facility] Left: Groin CR BARD : DAVOL 05/09/2023 [id number] / / [id number] documented as of this encounter Visit Diagnoses [...] Power of Attor coco? No Care Teams Rubber Production Machine Operator Relationship Specialty Start Date End Date [place] Collins MD [address] [place] [address] [place] [address] PCP - General Internal Medicine 03/01/14 documented as of this encounter
--- OUTSIDE RECORDS SUMMARY | 2024-03-26 16:30 | External Medical Summary ---
Author Name Unknown Address Unknown Organization K01:LABORATORY [facility] [place] - [address] [place] [address] Laboratory Report Ordering Provider Test Date Status KALPESH SERRANO 11/20/2023 08:09:00 Final Observation Date Value Abnormality Reference (Units ) Status SYNC LEUKOCYTES IN BLOOD BY AUTOMATED COUNT 11/20/2023 08:09:00 4.72 4.00-10.80 (K/uL) Final Segs 11/20/2023 08:09:00 64.5 40.0-75.0 (%) Final Lymphs % 11/20/2023 08:09:00 19.9 18.0-42.0 (%) Final Monos 11/20/2023 08:09:00 13.1 Above high normal 1.0-11.0 (%) Final Eosinophils 11/20/2023 08:09:00 1.9 0.0-6.0 (%) Final Basos 11/20/2023 08:09:00 0.4 0.0-2.0 (%) Final Immature Granulocyte, Percent 11/20/2023 08:09:00 0.2 0.0-2.0 (%) Final Absolute Segs 11/20/2023 08:09:00 3.04 1.80-7.70 (K/uL) Final Lymphs, absolute 11/20/2023 08:09:00 0.94 Below low normal 1.00-4.80 (K/ul) Final Monos, Abs 11/20/2023 08:09:00 0.62 0.00-1.10 (K/uL) Final Eos, Abs 11/20/2023 08:09:00 0.09 0.00-0.70 (K/uL) Final Basos, Abs 11/20/2023 08:09:00 0.02 0.00-0.20 (K/uL) Final Immature Granulocytes, Number 11/20/2023 08:09:00 0.01 0.00-0.20 (K/uL) Final Performing Location LABORATORY [facility] [place] - [address] [facility] [address]
--- OUTSIDE RECORDS SUMMARY | 2024-03-26 16:30 | External Medical Summary ---
Author Name Unknown Address Unknown Organization K01:LABORATORY [facility] [place] - [address] [place] [address] Laboratory Report Ordering Provider Test Date Status KALPESH SERRANO 11/20/2023 08:09:00 Final Observation Date Value Abnormality Reference (Units ) Status BUN 11/20/2023 08:09:00 20 6-20 (mg/dL) Final Creatinine 11/20/2023 08:09:00 1.1 0.6-1.2 (mg/dL) Final Glomerular filtration rate/1.73 sq M.predicted [Volume Rate/Area] in Serum, Plasma or Blood by Creatinine-based formula (CKD-EPI) 11/20/2023 08:09:00 79 >=60 (mL/min) Final eGFR is calculated based on the CKD-EPI 2020 equation Sodium 11/20/2023 08:09:00 139 135-146 (m mol/L) Final Potassium 11/20/2023 08:09:00 4.2 3.5-5.1 (m mol/L) Final Cl 11/20/2023 08:09:00 99 98-107 (mm ol/L) Final CO2 11/20/2023 08:09:00 27 22-32 (mmo l/L) Final Anion gap 11/20/2023 08:09:00 13 7-15 (mmol /L) Final Glucose 11/20/2023 08:09:00 91 70-120 (mg /dL) Final Albumin 11/20/2023 08:09:00 4.7 3.8-5.0 (g /dL) Final AST (Aspartate aminotransferase) 11/20/2023 08:09:00 21 10-50 (U/L) Final Alk Phos 11/20/2023 08:09:00 112 35-130 (U/ L) Final Bilirubin, Total 11/20/2023 08:09:00 0.4 <=1 .2 (mg/dL) Final Calcium 11/20/2023 08:09:00 9.4 8.4-10.2 ( mg/dL) Final Protein 11/20/2023 08:09:00 6.8 6.0-8.3 (g /dL) Final ALT (Alanine aminotransferase) 11/20/2023 08:09:00 18 10-50 (U/L) Final Performing Location LABORATORY [facility] [place] - [address] [facility] [address]
--- OUTSIDE RECORDS SUMMARY | 2024-03-26 16:30 | External Medical Summary | Summary of Care ---
Author Name Unknown Organization [facility] Address [address] [facility] [place] [address] Phone [phone] Care Team Providers Care Anchor Operator Name Role Phone Michael Collins MD Primary Care Provi zehra Reason for Visit * Reason Comments Chemotherapy Darzalex Faspro * Episode Based Medications (Routine) - Authorized Specialty Diagnoses / Procedures Referred By Contjuanito t Referred To Contact Diagnoses Multiple myeloma not having achieved remission (HCC) Procedures [place] DARATUMUMAB, HYALURONIDASE [place] INJ, CYCLOPHOSPHAMIDE, NOS Morgan Vásquez MD [address] [facility] [place] [address] Anc Hem/Onc Amena You DEPT CLOSED - 03/26/23 [address] [facility] [place] [address] Referral ID Status Reason Start Date Expiration Date V isits Requested Visits Authorized [id number] Authorized 05/28/2022 05/12/2099 99 99 Encounter Details Date Type Department Care Team (Latest Contact Info) Description 10/17/2023 8:30 AM EDT Hem/Onc Treatment Hematology/Oncology Treatment, [place] [address] [place] [address] Kenyatta, Chair 7 Hem Onc [facility] 200 [facility] [place] [address] Multiple myeloma not having achieved remission (HCC)* Allergies No known active allergiesdocumented as of this encounter (statuses as of 11/20/2023) Medications Medication Sig Dispensed Refills Start Date End Date Status THEOPHYLLINE ER 450 MG PO MI63Mjfzftzyeno: 2 tablet at bedtime Take by mouth. [...] Take by mouth. Active Multiple Vitamins-Mineral s ([facility] [[email or web address] IMMUNITY SUPPORT) [...] at bedtime. PATIENT INFORMATION: Kris Galvin [address] [place] [address] [employer]: [employer] ORDER: Please start nocturnal oxygen via nasal [...] (electronically signed) Ish Caba MD Pulmonary Medicine, [address] [place] [address] [place] [facility] Medical License Number: [id number] 1 Each 3 Active metFORMIN HCl ER [...] with loss of consciousness of 30 elena luico or less 01/03/2012 Acute, but ill-defined, cerebrovascular [...] AM EDT Laboratory Lab Mobile Phlebotomy [facility] [address] [place] [address] M[facility], G[facility] Draw [address] [place] [address] [address] Multiple myeloma in remission (HCC) 11/21/2023 8:45 AM EDT Hem/Onc Treatment Hematology/Oncology Treatment, [place] [address] [place] [phone] Park, Chair 2 Hem Onc Scenery [address] [place] [address] 11/27/2023 7:05 AM EDT Laboratory Lab Mobile Phlebotomy [facility] [address] [place] [address] Mvmg, Gml Mobile Home Draw [address]20 [place] [address] 11/28/2023 8:30 AM EDT [facility] 200 [place] [phone] Kenyatta, Chair 9 Hem Onc Scenery 200 [facility] [place] [address] 12/04/2023 7:05 AM EDT Laboratory Lab [facility] Phlebotomy [facility] [address] [place] [address] Mvmg, Gml Mobile Home Draw [address] [place] [address] 12/05/2023 8:45 AM EDT [facility] 200 [place] [phone] Kenyatta, Chair 2 Hem Onc Scenery 200 [facility] [place] [address] 12/11/2023 7:00 AM EDT Laboratory Lab Mobile Phlebotomy [facility] [address] [place] [address] Mvmg, Gml Mobile Home Draw [address] [place] [address] 12/12/2023 11:15 AM EDT Office Visit Hematology/Oncology [facility] [place] 200 [place] [phone] Morgan Vásquez MD 200 [place] [address] 12/12/2023 11:45 AM EDT Hem/Onc Treatment Hematology/Oncology Treatment, [place] [address] [place] [address] 12/18/2023 7:05 AM EDT Laboratory Lab Mobile Phlebotomy [facility] [address] [place] [address] Mvmg, Gml Mobile Home Draw [address] [place] [address] 12/25/2023 7:05 AM EDT Laboratory Lab Mobile Phlebotomy [facility] [address] [place] [address] Mvmg, Gml Mobile Home Draw [address] [place] [address] 01/01/2024 7:05 AM EDT Laboratory Lab Mobile Phlebotomy [facility] [address] [place] [address] Mvmg, Gml Mobile Home Draw [address] [place] [address] 01/08/2024 7:00 AM EDT Laboratory Lab Mobile Phlebotomy [facility] [address] [place] [address] Mvmg, Gml Mobile Home Draw [address] [place] [address] 01/15/2024 7:05 AM EDT Laboratory Lab Mobile Phlebotomy [facility] [address] [place] [address] Mvmg, Gml Mobile Home Draw [address] [place] [address] 01/22/2024 7:05 AM EDT Laboratory Lab Mobile Phlebotomy [facility] [address] [place] [address] Mvmg, Gml Mobile Home Draw [address] [place] [address] 01/29/2024 7:05 AM EDT Laboratory Lab Mobile Phlebotomy [facility] [address] [place] [address] Mvmg, Gml Mobile Home Draw [address] [place] [address] 02/05/2024 7:00 AM EDT Laboratory Lab Mobile Phlebotomy [facility] [address] [place], [place] [address] Mvmg, Gml Mobile Home Draw [address] [place], [place] [address] 02/05/2024 8:40 AM EDT Office Visit Neurology [facility] [place] [address] [facility] [address] [place], [place] [address] Octavia Goins PA-C [address] [facility] [address] [place], [place] [address] 02/07/2024 8:00 AM EDT Office Visit Rheumatology [address] [place] [phone] Darnell Higgins MD [address] [place], [place] [address] 02/12/2024 7:05 AM EDT Laboratory Lab Mobile Phlebotomy [facility] [address] [place], [place] [address] Mvmg, Gml Mobile Home Draw [address] [place], [place] [address] 02/19/2024 7:05 AM EDT Laboratory Lab Mobile Phlebotomy [facility] [address] [place], [place] [address] Mvmg, Gml Mobile Home Draw [address] [place], [place] [address] 02/26/2024 7:05 AM EDT Laboratory Lab Mobile Phlebotomy [facility] [address] [place] [address] Mvmg, Gml Mobile Home Draw [address] [place] [address] 03/04/2024 7:00 AM EDT Laboratory Lab Mobile Phlebotomy [facility] [address] [place], [place] [address] Mvmg, Gml Mobile Home Draw [address] [place], [place] [address] 03/11/2024 7:05 AM EDT Laboratory Lab Mobile Phlebotomy [facility] [address]20 [place] [address] Mvmg, Gml Mobile Home Draw [address]20 [place] [address] 03/18/2024 7:05 AM EST Laboratory Lab Mobile Phlebotomy [facility] [address] [place] [address] Mvmg, Gml Mobile Home Draw [address] [place] [address] 03/25/2024 7:05 AM EST Laboratory Lab Mobile Phlebotomy [facility] [address] [place] [address] Mvmg, Gml Mobile Home Draw 25[address] [place] [address] 04/01/2024 7:00 AM EST Laboratory Lab Mobile Phlebotomy [facility] [address] [place] [address] Mvmg, Gml Mobile Home Draw [address] [place] [address] 04/08/2024 7:05 AM EST Laboratory Lab Mobile Phlebotomy [facility] [address] [place] [address] Mvmg, Gml Mobile Home Draw [address] [place] [address] 04/15/2024 7:05 AM EST Laboratory Lab Mobile Phlebotomy [facility] [address] [place] [address] Mvmg, Gml Mobile Home Draw [address] [place] [address] 04/22/2024 7:05 AM EST Laboratory Lab Mobile Phlebotomy [facility] [address] [place] [address] Mvmg, Gml Mobile Home Draw 25[address] [place] [address] 04/29/2024 7:05 AM EST Laboratory Lab Mobile Phlebotomy [facility] [address] [place] [address] Mvmg, Gml Mobile Home Draw [address] [facility] [place] [address] 05/05/2024 7:05 AM EST Laboratory Lab Mobile Phlebotomy [facility] [address] [place] [address] Mvmg, Gml Mobile Home Draw [address] [facility] [place] [address] 09/02/2024 8:20 AM EDT Office Visit Pulmonary Medicine, [facility] [address] [place] [address] Ish Caba MD [address] [place] [address] 05/03/2025 7:40 AM EST Office Visit Dermatology [address] [place] [address] Albina Romo PA-C [address] [place] [address] [place] [address] Health Maintenance Due Date Last Done Comments [...] this encounter Medical Devices Implanted Type Area Field Checker Device Identifier Shelf Expiration Date Model / Serial / Lot Mesh Plug Xlarge [id number] - [id number] Implanted:Qty: 1 on 12/09/2020 by John Zaragoza MD at OR [facility] Left: Groin CR BARD : DAVOL 05/09/2023 [id number] / / [id number] documented as of this encounter Visit Diagnoses [...] Given 10/17/2023 9:27 AM EDT 650 mg Nbvupscihts-xtrbropqwslfi-w ihj (Darzalex Faspro) 1800 mg-10159 units/ 15 ml subcut inj 15 mL, [...] Power of Attor coco? No Care Teams Anchor Operator Relationship Specialty Start Date End Date Michael Collins MD [address] [place] [address] [place] [address] PCP - General Internal Medicine 03/01/14 documented as of this encounter
--- OUTSIDE RECORDS SUMMARY | 2024-03-26 16:30 | External Medical Summary | Summary of Care ---
Author Name Unknown Organization [facility] Address [address] [facility] [place] [address] Phone [phone] Care Team Providers Care Hip Hop Dance Instructor Name Role Phone Michael Collins MD Primary Care Provi zehra Reason for Visit * Reason Comments Chemotherapy Cytoxan. * Episode Based Medications (Routine) - Authorized Specialty Diagnoses / Procedures Referred By Contac t Referred To Contact Diagnoses Multiple myeloma not having achieved remission (HCC) Procedures MD DARATUMUMAB, HYALURONIDASE MD INJ, CYCLOPHOSPHAMIDE, NOS Morgan Vásquez MD 200 [facility] [place] [address] Anc Hem/Onc Amena You DEPT CLOSED - 03/26/23 200 [facility] [place] [address] Referral ID Status Reason Start Date Expiration Date V isits Requested Visits Authorized [id number] Authorized 05/28/2022 05/12/2099 99 99 Encounter Details Date Type Department Care Team (Latest Contact Info) Description 10/24/2023 9:30 AM EDT Hem/Onc Treatment Hematology/Oncolog y Treatment, [place] 200 [facility] [place] [address] Multiple myeloma not having achieved remission (HCC)*; Encounter for central line care; Encounter for antineoplastic chemotherapy Allergies No known active allergiesdocumented as of this encounter (statuses as of 11/20/2023) Medications Medication Sig Dispensed Refills Start Date End Date Status THEOPHYLLINE ER 450 MG PO XO07Hzjstectuwi:2 tablet at bedtime Take by mouth. Indications: [...] nostril at bedtime. PATIENT INFORMATION: Kris Galvin [address] [place] [address] [employer]: [employer] ORDER: Please start nocturnal oxygen via nasal [...] signed) Ish Caba MD Pulmonary Medicine, [address] [place] [address] [place] [facility] Medical License Number: [id number] 1 Each 09/21/2022 Active metFORMIN HCl ER [...] mRNA, LNP-s, No Pre serve, 2-Dose Series ([employer]) 01/17/2021,08/05/2020,07/08/2020 COVID-19, LNP-s, No Preserve , Bryant-sucrose, Ages 12+ ([employer]) 09/26/2021 DTaP Dipth/Tet/Acell Pertussis ([employer]), Peds 02/23/2021,11/11/2020,09/09/2020 [...] 8:45 AM EDT Hem/Onc Treatment Hematology/[address] [phone] Kenyatta, Chair 2 Hem On[address] [place] [address] 11/27/2023 7:05 AM EDT Laboratory Lab Mobile Phlebotomy [facility] [address] [place] [address] Mvmg, Gml Mobile Home Draw [address] [place] [address] 11/28/2023 8:30 AM EDT Hem/Onc Treatment Hematology/Oncology Treatment, [place] 200 [facility] [place] [phone] Kenyatta, Chair 9 Hem Onc [address] [place] [address] 12/04/2023 7:05 AM EDT Laboratory Lab Mobile Phlebotomy [facility] [address] [place] [address] Mvmg, Gml Mobile Home Draw [address] [place] [address] 12/05/2023 8:45 AM EDT Hem[facility] 200 [place] [phone] Kenyatta, Chair 2 Hem Onc [address] [place] [address] 12/11/2023 7:00 AM EDT Laboratory Lab Mobile Phlebotomy [facility] [address] [place] [address] Mvmg, Gml Mobile Home Draw 2520 [facility] [place], [place] [address] 12/12/2023 11:15 AM EDT Office Visit Hematology/Oncology [facility] 200 [place] [phone] Morgan Vásquez MD 200 [place] [address] 12/12/2023 11:45 AM EDT Hem[facility] 200 [facility] [phone] 12/18/2023 7:05 AM EDT Laboratory Lab Mobile Phlebotomy [facility] [address] [place] [address] Mvmg, Gml Mobile Home Draw [address] [place] [address] 12/25/2023 7:05 AM EDT Laboratory Lab Mobile Phlebotomy [facility] [address] [place] [address] Mvmg, Gml Mobile Home Draw [address] [place] [address] 01/01/2024 7:05 AM EDT Laboratory Lab Mobile Phlebotomy [facility] [address] [place] [address] Mvmg, Gml Mobile Home Draw [address] [place] [address] 01/08/2024 7:00 AM EDT Laboratory Lab Mobile Phlebotomy [facility] [address] [place], [place] [address] Mvmg, Gml Mobile Home Draw [address] [place] [address] 01/15/2024 7:05 AM EDT Laboratory Lab Mobile Phlebotomy [facility] [address] [place] [address] Mvmg, Gml Mobile Home Draw [address] [place] [address] 01/22/2024 7:05 AM EDT Laboratory Lab Mobile Phlebotomy [facility] [address] [place] [address] Mvmg, Gml Mobile Home Draw [address] [place] [address] 01/29/2024 7:05 AM EDT Laboratory Lab Mobile Phlebotomy [facility] [address] [place] [address] Mvmg, Gml Mobile Home Draw [address] [place] [address] 02/05/2024 7:00 AM EDT Laboratory Lab Mobile Phlebotomy [facility] [address] [place] [address] Mvmg, Gml Mobile Home Draw [address] [place] [address] 02/05/2024 8:40 AM EDT Office Visit Neurology [place] [address] [place], [place] [address] Octavia Goins PA-C [address] [place], [place] [address] 02/07/2024 8:00 AM EDT Office Visit Rheumatology [address] [place] [phone] Darnell Higgins MD 2520 [place] [address] 02/12/2024 7:05 AM EDT Laboratory Lab Mobile Phlebotomy [facility] [address] [place] [address] Mvmg, Gml Mobile Home Draw 2520 [place] [address] 02/19/2024 7:05 AM EDT Laboratory Lab Mobile Phlebotomy [facility] [address] [place] [address] Mvmg, Gml Mobile Home Draw 2520 [place] [address] 02/26/2024 7:05 AM EDT Laboratory Lab Mobile Phlebotomy [facility] [address] [place] [address] Mvmg, Gml Mobile Home Draw 2520 [place] [address] 03/04/2024 7:00 AM EDT Laboratory Lab Mobile Phlebotomy [facility] [address] [place] [address] Mvmg, Gml Mobile Home Draw [address] [place] [address] 03/11/2024 7:05 AM EDT Laboratory Lab Mobile Phlebotomy [facility] [address] [place] [address] Mvmg, Gml Mobile Home Draw [address] [place] [address] 03/18/2024 7:05 AM EST Laboratory Lab Mobile Phlebotomy [facility] [address] [place] [address] Mvmg, Gml Mobile Home Draw 25[address] [place] [address] 03/25/2024 7:05 AM EST Laboratory Lab Mobile Phlebotomy [facility] [address] [place] [address] Mvmg, Gml Mobile Home Draw [address] [place] [address] 04/01/2024 7:00 AM EST Laboratory Lab Mobile Phlebotomy [facility] 2520 [facility] [place] [address] Mvmg, Gml Mobile Home Draw 2520 [place] [address] 04/08/2024 7:05 AM EST Laboratory Lab Mobile Phlebotomy [facility] [address] [place] [address] Mvmg, Gml Mobile Home Draw [address] [place] [address] 04/15/2024 7:05 AM EST Laboratory Lab Mobile Phlebotomy [facility] [address] [place] [address] Mvmg, Gml Mobile Home Draw [address] [place] [address] 04/22/2024 7:05 AM EST Laboratory Lab Mobile Phlebotomy [facility] [address] [place] [address] Mvmg, Gml Mobile Home Draw [address] [place] [address] 04/29/2024 7:05 AM EST Laboratory Lab Mobile Phlebotomy [facility] [address] [place] [address] Mvmg, Gml Mobile Home Draw [address] [place] [address] 05/05/2024 7:05 AM EST Laboratory Lab Mobile Phlebotomy [facility] [address] [place] [address] Mvmg, Gml Mobile Home Draw [address] [place] [address] 09/02/2024 8:20 AM EDT Office Visit Pulmonary Medicine, [facility] [address] [place] [address] Ish Caba MD [address] [place] [address] 05/03/2025 7:40 AM EST Office Visit Dermatology [address] [place] [address] Albina Romo PA-C [address] [place] [address] [place] [address] Health Maintenance Due Date Last Done Comments [...] this encounter Medical Devices Implanted Type Area Sheet Metal Helper Device Identifier Shelf Expiration Date Model / Serial / Lot Mesh Plug Xlarge [id number] - [id number] Implanted:Qty: 1 on 12/09/2020 by John Zaragoza MD at OR [facility] Left: Groin CR BARD : DAVOL 05/09/2023 [id number] / / [id number] documented as of this encounter Visit Diagnoses [...] Power of Attor coco? No Care Teams Hip Hop Dance Instructor Relationship Specialty Start Date End Date [place] Collins MD [address] [place] [address] [place] [address] PCP - General Internal Medicine 03/01/14 documented as of this encounter
--- OUTSIDE RECORDS SUMMARY | 2024-03-26 16:31 | External Medical Summary | Summary of Care ---
Author Name Unknown Organization [facility] Address [address] [facility] [place] [address] Phone [phone] Care Team Providers Care Manager Personal Name Role Phone Michael Collins MD Primary Care Provi zehra Reason for Visit * Reason Comments Chemotherapy Cytoxan. * Episode Based Medications (Routine) - Authorized Specialty Diagnoses / Procedures Referred By Contac t Referred To Contact Diagnoses Multiple myeloma not having achieved remission (HCC) Procedures IN DARATUMUMAB, HYALURONIDASE IN INJ, CYCLOPHOSPHAMIDE, NOS Morgan Vásquez MD [address] [place] [address] Anc Hem/Onc Amena You DEPT CLOSED - 03/26/23 200 [facility] [place] [address] Referral ID Status Reason Start Date Expiration Date V isits Requested Visits Authorized [id number] Authorized 05/28/2022 05/12/2099 99 99 Encounter Details Date Type Department Care Team (Latest Contact Info) Description 10/31/2023 8:45 AM EDT Hem/Onc Treatment Hematology/Oncolog y Treatment, [place] [address] [place] [address] Kenyatta, Chair 2 Hem Onc Scenery [address] [place] [address] Multiple myeloma not having achieved remission (HCC)*; Encounter for antineoplastic chemotherapy Allergies No known active allergiesdocumented as of this encounter (statuses as of 11/19/2023) Medications Medication Sig Dispensed Refills Start Date End Date Status THEOPHYLLINE ER 450 MG PO [id number] tablet at bedtime Take by mouth. Indications: [...] CAPS Take by mouth. Active Multiple Vitamins-Minerals ([facility]) CHEW Take by [...] at bedtime. PATIENT INFORMATION: Kris Galvin [address] [place] [address] [employer]: [employer] ORDER: Please start nocturnal oxygen via nasal [...] (electronically signed) Ish Caba MD Pulmonary Medicine, [address] [place] [address] [place] [facility] Medical License Number: [id number] 1 Each 09/21/2022 Active metFORMIN HCl ER [...] as of this encounter (statuses as of 11/19/2023) Active Problems Problem Noted Date Diagnosed Date [...] as of this encounter (statuses as of 11/19/2023) Resolved Problems Problem Noted Date Diagnosed Date Resolved Date Asthma in remission 08/28/2022 08/29/19 Asthma, mild persistent 08/28/202208/11 Asthma, severe persistent 08/28/2022 Stem cell transplant candidate 08/17/2019 09/02/2019 documented as of this encounter (statuses as of 11/19/2023) Immunizations Name Administration Dates Next Due COVID-19 mRNA, LNP-s, No Pre serve, 2-Dose Series ([employer]) 01/17/2021,08/05/2020,07/08/2020 COVID-19, LNP-s, No Preserve , Bryant-sucrose, Ages 12+ ([employer]) 09/26/2021 DTaP Dipth/Tet/Acell Pertussis (Infanrix), Peds 02/23/2021,11/11/2020,09/09/2020 [...] Sign Reading Time Taken Comments Blood Pressure 138/90 10/31/2023 8:45 AM EDT Pulse 84 10/31/2023 8:45 AM EDT Temperature 36.2 C (97.2 F) 10/31/2023 8:45 AM ED T Respiratory Rate 18 10/31/2023 8:45 AM EDT Oxygen Saturation 92% 10/31/2023 8:45 AM EDT Inhaled Oxygen Concentration - - Weight 130.7 kg (288 lb 3.2 oz) 10/31/2023 8:45 AM EDT Height - - Body Mass Index 39.09 10/11/2023 9:26 AM EDT documented in this [...] Nursing Notes * Nimisha Zhang RN - 10/31/2023 11:32 AM EDT Goals: Patient will remain free from injury. Possible barriers to meeting goals: Fall risk d/t ambulation with IV pole. Stability of the patient: Moderately stable - low risk of patient condition declining or worsening Summary regarding today's goals: Met: Patient remained free of injury. Patient tolerated infusion well. Discharged in stable condition. * Nimisha Zhang RN - 10/31/2023 9:06 AM EDT Chair 3. Patient arrived for cytoxan. Patient states overall feels ok, just tired. PIV established. Chemotherapy/Immunotherapy agents: CYTOXAN Consent for chemotherapy drug treatment complete, dated, and signed? yes, date - 10/17/23 Treatment lab parameters met? Yes Has treatment weight changed > than 10%? No Treatment preauthorized? Yes VITALS Filed Vitals: 10/31/23 0845 BP: 138/90 Pulse: 84 Resp: 18 Temp: 36.2 C (97.2 F) TempSrc: Tympanic SpO2: 92% Weight: 130.7 kg (288 lb 3.2 oz) Urine protein: N/A Patient [...] side effects during treatment. PRE-TREATMENT ASSESSMENT: NEURO: fatigue:patient states this is baseline for him. CV/RESP: denies symptoms GI/: nausea: a little but is better now and constipation: yes, resolved with stool softener. OTHER: denies any additional symptoms PAIN: 0 Safety and Risk for Injury Patient will remain free from injury. Ensure appropriate safety devices are available. Provide and maintain safe environment. documented in this encounter Plan of Treatment Upcoming Encounters Date Type Department Care Team (Late st Contact Info) Description 11/20/2023 7:05 AM EDT Laboratory Lab Mobile Phlebotomy [facility] [address] [facility] [place] [address] Mvmg, Gml Mobile Home Draw [address] [place] [address] 11/21/2023 8:45 AM EDT Hem/Onc Treatment Hematology/Oncology Treatment, [place] 200 [place] [phone] Kenyatta, Chair 2 Hem Onc Scenery 200 [facility] [place] [address] 11/27/2023 7:05 AM EDT Laboratory Lab Mobile Phlebotomy [facility] [address] [place] [address] Mvmg, Gml Mobile Home Draw [address] [place] [address] 11/28/2023 8:30 AM EDT [facility] 200 [place] [phone] Kenyatta, Chair 9 Hem Onc Scenery 200 [facility] [place] [address] 12/04/2023 7:05 AM EDT Laboratory Lab Mobile Phlebotomy [facility] [address] [place] [address] Mvmg, Gml Mobile Home Draw [address] [place] [address] 12/05/2023 8:45 AM EDT [facility] 200 [place] [address] Kenyatta, Chair 2 Hem Onc Scenery 200 [facility] [place] [address] 12/11/2023 7:00 AM EDT Laboratory Lab Mobile Phlebotomy [facility] [address] [place] [address] Mvmg, Gml Mobile Home Draw [address] [place] [address] 12/12/2023 11:15 AM EDT Office Visit Hematology/Oncology [facility] 200 [facility] [place] [address] Morgan Vásquez MD [address] [place] [address] 12/12/2023 11:45 AM EDT Hem/Onc Treatment Hematology/Oncology Treatment, [place] [address] [place] [address] 12/18/2023 7:05 AM EDT Laboratory Lab Mobile Phlebotomy [facility] [address] [place] [address] Mvmg, Gml Mobile Home Draw [address] [place] [address] 12/25/2023 7:05 AM EDT Laboratory Lab Mobile Phlebotomy [facility] [address] [place] [address] Mvmg, Gml Mobile Home Draw [address] [place] [address] 01/01/2024 7:05 AM EDT Laboratory Lab Mobile Phlebotomy [facility] [address] [place] [address] Mvmg, Gml Mobile Home Draw [address] [place] [address] 01/08/2024 7:00 AM EDT Laboratory Lab Mobile Phlebotomy [facility] [address] [place] [address] Mvmg, Gml Mobile Home Draw [address] [place] [address] 01/15/2024 7:05 AM EDT Laboratory Lab Mobile Phlebotomy [facility] [address] [place] [address] Mvmg, Gml Mobile Home Draw [address] [place] [address] 01/22/2024 7:05 AM EDT Laboratory Lab Mobile Phlebotomy [facility] [address] [place] [address] Mvmg, Gml Mobile Home Draw [address] [place] [address] 01/29/2024 7:05 AM EDT Laboratory Lab Mobile Phlebotomy [facility] [address] [place], [place] [address] Mvmg, Gml Mobile Home Draw [address] [place], [place] [address] 02/05/2024 7:00 AM EDT Laboratory Lab Mobile Phlebotomy [facility] [address] [place], [place] [address] Mvmg, Gml Mobile Home Draw [address] [facility] [address] [place], [place] [address] 02/05/2024 8:40 AM EDT [facility] [place] 200 [facility] [place] [address] Octavia Goins PA-C [address] [facility] [address] [place], [place] [address] 02/07/2024 8:00 AM EDT Office Visit Rheumatology [address] [place] [phone] Darnell Higgins MD [address] [facility] [address] [place], [place] [address] 02/12/2024 7:05 AM EDT Laboratory Lab Mobile Phlebotomy [facility] [address] [place], [place] [address] Mvmg, Gml Mobile Home Draw [address] [place], [place] [address] 02/19/2024 7:05 AM EDT Laboratory Lab Mobile Phlebotomy [facility] [address] [place], [place] [address] Mvmg, Gml Mobile Home Draw [address] [place], [place] [address] 02/26/2024 7:05 AM EDT Laboratory Lab Mobile Phlebotomy [facility] [address] [place], [place] [address] Mvmg, Gml Mobile Home Draw [address] [place] [address] 03/04/2024 7:00 AM EDT Laboratory Lab Mobile Phlebotomy [facility] [address] [place] [address] Mvmg, Gml Mobile Home Draw [address] [place] [address] 03/11/2024 7:05 AM EDT Laboratory Lab Mobile Phlebotomy [facility] [address] [place] [address] Mvmg, Gml Mobile Home Draw [address] [place] [address] 03/18/2024 7:05 AM EST Laboratory Lab Mobile Phlebotomy [facility] [address] [place] [address] Mvmg, Gml Mobile Home Draw [address] [place] [address] 03/25/2024 7:05 AM EST Laboratory Lab Mobile Phlebotomy [facility] [address] [place] [address] Mvmg, Gml Mobile Home Draw [address] [place] [address] 04/01/2024 7:00 AM EST Laboratory Lab Mobile Phlebotomy [facility] [address] [place] [address] Mvmg, Gml Mobile Home Draw [address] [place] [address] 04/08/2024 7:05 AM EST Laboratory Lab Mobile Phlebotomy [facility] [address] [place] [address] Mvmg, Gml Mobile Home Draw [address] [place] [address] 04/15/2024 7:05 AM EST Laboratory Lab Mobile Phlebotomy [facility] [address] [place] [address] Mvmg, Gml Mobile Home Draw [address] [place] [address] 04/22/2024 7:05 AM EST Laboratory Lab Mobile Phlebotomy [facility] [address] [place] [address] Mvmg, Gml Mobile Home Draw [address] [facility] [place] [address] 04/29/2024 7:05 AM EST Laboratory Lab Mobile Phlebotomy [facility] [address] [place] [address] Mvmg, Gml Mobile Home Draw [address] [facility] [place] [address] 05/05/2024 7:05 AM EST Laboratory Lab Mobile Phlebotomy [facility] [address] [place] [address] Mvmg, Gml Mobile Home Draw [address] [facility] [place] [address] 09/02/2024 8:20 AM EDT Office Visit Pulmonary Medicine, [facility] [address] [employer] [place] [address] Ish Caba MD [address] [facility] [place] [address] 05/03/2025 7:40 AM EST Office Visit Dermatology [address] [place] [address] Albina Romo PA-C [address] [place] [address] [place] [address] Health Maintenance Due Date Last Done Comments [...] this encounter Medical Devices Implanted Type Area Helper Steel Fabrication Device Identifier Shelf Expiration Date Model / Serial / Lot Mesh Plug Xlarge [id number] - [id number] Implanted:Qty: 1 on 12/09/2020 by John Zaragoza MD at [facility] Left: Groin CR BARD : DAVOL 05/09/2023 [id number] / / [id number] documented as of this encounter Visit Diagnoses [...] not tolerated., ONCE, 1 dose, On Lilibeth 10/31/23 at 0930 Start Infusion 10/31/2023 9:46 AM EDT 740 mg 517.4 mL/hr dexAMETHasone (Decadron) tab 40 mg 40 mg, Oral, ONCE, On Lilibeth 10/31/23 at 0930, For 1 dose Given 10/31/2023 9:03 AM EDT 40 mg NSS infusion FOR HYDRATION Intravenous, at 500 mL/hr Administer over 2 Hours, ONCE, 1 dose, On Lilibeth 10/31/23 at 0930 Start Infusion 10/31/2023 9:02 AM EDT 1,000 mL 500 mL/hr NSS infusion FOR HYDRATION Intravenous, at 50 mL/hr Administer over 10 Hours, CONTINUOUS, Starting on Lilibeth 10/31/23 at 0930, Until Lilibeth 10/31/23 at 1533 Start Infusion 10/31/2023 9:02 AM EDT 500 mL 50 mL/hr ondansetron (Zofran) tab 8 mg 8 mg, Oral, ONCE, On Lilibeth 10/31/23 at 0930, For 1 dose Given 10/31/2023 9:03 AM EDT 8 mg documented in this [...] of Attor coco? No Care Teams Manager Personal Relationship Specialty Start Date End Date Michael Collins MD [address] [place] [address] [place] [address] PCP - General Internal Medicine 03/01/14 documented as of this encounter
--- OUTSIDE RECORDS SUMMARY | 2024-03-26 16:31 | External Medical Summary | Summary of Care ---
Author Name Unknown Organization [facility] Address [address] [facility] [place] [address] Phone [phone] Care Team Providers Care Assistant Coach Name Role Phone Michael [place] MD Primary Care Provi zehra Reason for Visit * Reason Comments Chemotherapy Cytoxan. * Episode Based Medications (Routine) - Authorized Specialty Diagnoses / Procedures Referred By Contac t Referred To Contact Diagnoses Multiple myeloma not having achieved remission (HCC) Procedures ID DARATUMUMAB, HYALURONIDASE ID INJ, CYCLOPHOSPHAMIDE, NOS Morgan Vásquez MD [address] [place] [address] Anc Hem/Onc Amena You DEPT CLOSED - 03/26/23 200 [facility] [place] [address] Referral ID Status Reason Start Date Expiration Date V isits Requested Visits Authorized [id number] Authorized 05/28/2022 05/12/2099 99 99 Encounter Details Date Type Department Care Team (Latest Contact Info) Description 10/31/2023 8:45 AM EDT Hem/Onc Treatment Hematology/Oncolog y Treatment, [place] [address] [place] [address] Kenyatta, Chair 2 Hem Onc Scenery [address] [place] [address] Multiple myeloma not having achieved remission (HCC)*; Encounter for antineoplastic chemotherapy Allergies No known active allergiesdocumented as of this encounter (statuses as of 11/19/2023) Medications Medication Sig Dispensed Refills Start Date End Date Status THEOPHYLLINE ER 450 MG PO [id number]:2 tablet at bedtime Take by mouth. Indications: [...] at bedtime. PATIENT INFORMATION: Kris Galvin [address] [place] [address] [employer]: [employer] ORDER: Please start nocturnal oxygen via nasal [...] signed) Ish Caba MD Pulmonary Medicine, [address] [place] [address] [place] [facility] Medical License Number: [id number] 1 Each 09/21/2022 Active metFORMIN HCl ER [...] mRNA, LNP-s, No Pre serve, 2-Dose Series ([facility]) 01/17/2021,08/05/2020,07/08/2020 COVID-19, LNP-s, No Preserve , Bryant-sucrose, Ages 12+ ([facility]) 09/26/2021 DTaP Dipth/Tet/Acell Pertussis (Infanrix), Peds 02/23/2021,11/11/2020,09/09/2020 [...] 7:05 AM EDT Laboratory Lab Mobile Phlebotomy [facility] [address] [facility] [place] [address] Mvmg, Gml Mobile Home Draw [address] [place] [address] 11/21/2023 8:45 AM EDT Hem/Onc Treatment Hematology/Oncology Treatment, [place] 200 [place] [address] Kenyatta, Chair 2 Hem Onc Scenery 200 [place] [address] 11/27/2023 7:05 AM EDT Laboratory Lab Mobile Phlebotomy [facility] [address] [place] [address] Mvmg, Gml Mobile Home Draw [address] [place] [place] [address] 11/28/2023 8:30 AM EDT [facility] 200 [place] [address] Kenyatta, Chair 9 Hem Onc Scenery 200 [place] [address] 12/04/2023 7:05 AM EDT Laboratory Lab Mobile Phlebotomy [facility] [address] [place] [address] Mvmg, Gml Mobile Home Draw [address] [place] [place] [address] 12/05/2023 8:45 AM EDT [facility] 200 [place] [address] Kenyatta, Chair 2 Hem Onc Scenery 200 [place] [address] 12/11/2023 7:00 AM EDT Laboratory Lab Mobile Phlebotomy [facility] [address] [place] [address] Mvmg, Gml Mobile Home Draw [address] [place] [address] 12/12/2023 11:15 AM EDT Office Visit Hematology/Oncology [facility] [address] [facility] [place] [address] Morgan Vásquez MD [address] [place] [address] 12/12/2023 11:45 AM EDT Hem/Onc Treatment Hematology/Oncology Treatment, [place] [address] [place] [address] 12/18/2023 7:05 AM EDT Laboratory Lab Mobile Phlebotomy [facility] [address] [place] [address] Mvmg, Gml Mobile Home Draw [address] [place] [address] 12/25/2023 7:05 AM EDT Laboratory Lab Mobile Phlebotomy [facility] [address] [place] [address] Mvmg, Gml Mobile Home Draw [address] [place] [address] 01/01/2024 7:05 AM EDT Laboratory Lab Mobile Phlebotomy [facility] [address] [place] [address] Mvmg, Gml Mobile Home Draw [address] [place] [address] 01/08/2024 7:00 AM EDT Laboratory Lab Mobile Phlebotomy [facility] [address] [place] [address] Mvmg, Gml Mobile Home Draw [address] [place] [address] 01/15/2024 7:05 AM EDT Laboratory Lab Mobile Phlebotomy [facility] [address] [place] [address] Mvmg, Gml Mobile Home Draw [address] [place] [address] 01/22/2024 7:05 AM EDT Laboratory Lab Mobile Phlebotomy [facility] [address] [place] [address] Mvmg, Gml Mobile Home Draw [address] [place] [address] 01/29/2024 7:05 AM EDT Laboratory Lab Mobile Phlebotomy [facility] [address] [place], [place] [address] Mvmg, Gml Mobile Home Draw [address] [place], [place] [address] 02/05/2024 7:00 AM EDT Laboratory Lab Mobile Phlebotomy [facility] [address] [place], [place] [address] Mvmg, Gml Mobile Home Draw [address] [facility] [address] [place], [place] [address] 02/05/2024 8:40 AM EDT Office [facility] [place] 200 [facility] [place] [address] Octavia Goins PA-C [address] [facility] [address] [place] [address] 02/07/2024 8:00 AM EDT Office Visit Rheumatology [address] [place] [phone] Darnell Higgins MD [address] [facility] [address] [place], [place] [address] 02/12/2024 7:05 AM EDT Laboratory Lab Mobile Phlebotomy [facility] [address] [place], [place] [address] Mvmg, Gml Mobile Home Draw [address] [place], [place] [address] 02/19/2024 7:05 AM EDT Laboratory Lab Mobile Phlebotomy [facility] [address] [place], [place] [address] Mvmg, Gml Mobile Home Draw [address] [place], [place] [address] 02/26/2024 7:05 AM EDT Laboratory Lab Mobile Phlebotomy [facility] [address] [place], [place] [address] Mvmg, Gml Mobile Home Draw [address] [place] [address] 03/04/2024 7:00 AM EDT Laboratory Lab Mobile Phlebotomy [facility] [address] [place] [address] Mvmg, Gml Mobile Home Draw [address] [place] [address] 03/11/2024 7:05 AM EDT Laboratory Lab Mobile Phlebotomy [facility] [address] [place] [address] Mvmg, Gml Mobile Home Draw [address] [place] [address] 03/18/2024 7:05 AM EST Laboratory Lab Mobile Phlebotomy [facility] [address] [place] [address] Mvmg, Gml Mobile Home Draw [address] [place] [address] 03/25/2024 7:05 AM EST Laboratory Lab Mobile Phlebotomy [facility] [address] [place] [address] Mvmg, Gml Mobile Home Draw [address] [place] [address] 04/01/2024 7:00 AM EST Laboratory Lab Mobile Phlebotomy [facility] [address] [place] [address] Mvmg, Gml Mobile Home Draw [address] [place] [address] 04/08/2024 7:05 AM EST Laboratory Lab Mobile Phlebotomy [facility] [address] [place] [address] Mvmg, Gml Mobile Home Draw [address] [place] [address] 04/15/2024 7:05 AM EST Laboratory Lab Mobile Phlebotomy [facility] [address] [place] [address] Mvmg, Gml Mobile Home Draw [address] [place] [address] 04/22/2024 7:05 AM EST Laboratory Lab Mobile Phlebotomy [facility] [address] [place] [address] Mvmg, Gml Mobile Home Draw [address] [facility] [place] [address] 04/29/2024 7:05 AM EST Laboratory Lab Mobile Phlebotomy [facility] [address] [place] [place] [address] Mvmg, Gml Mobile Home Draw [address] [facility] [place] [address] 05/05/2024 7:05 AM EST Laboratory Lab Mobile Phlebotomy [facility] [address] [place] [address] Mvmg, Gml Mobile Home Draw [address] [facility] [place] [address] 09/02/2024 8:20 AM EDT Office Visit Pulmonary Medicine, [facility] 132 [facility] [place] [address] Ish Caba MD [address] [facility] [place] [address] 05/03/2025 7:40 AM EST Office Visit Dermatology [address] [place] [address] Albian Romo PA-C [address] [place] [address] [place] [address] Health Maintenance Due Date Last Done Comments [...] this encounter Medical Devices Implanted Type Area Warp Picker Device Identifier Shelf Expiration Date Model / Serial / Lot Mesh Plug Xlarge [id number] - [id number] Implanted:Qty: 1 on 12/09/2020 by John Zaragoza MD at OR [facility] Left: Groin CR BARD : DAVOL 05/09/2023 [id number] / / [id number] documented as of this encounter Visit Diagnoses [...] Power of Attor coco? No Care Teams Assistant Coach Relationship Specialty Start Date End Date Michael [place] MD [address] [place] [address] [place] [address] PCP - General Internal Medicine 03/01/14 documented as of this encounter
--- OUTSIDE RECORDS SUMMARY | 2024-03-26 16:31 | External Medical Summary | Summary of Care ---
Author Name Unknown Organization [facility] Address [address] [facility] [place] [address] Phone [phone] Care Team Providers Care Protection Consultant Name Role Phone Michael Collins MD Primary Care Provi zehra Reason for Visit * Reason Comments Chemotherapy Cytoxan. * Episode Based Medications (Routine) - Authorized Specialty Diagnoses / Procedures Referred By Contac t Referred To Contact Diagnoses Multiple myeloma not having achieved remission (HCC) Procedures SD DARATUMUMAB, HYALURONIDASE SD INJ, CYCLOPHOSPHAMIDE, NOS Morgan Vásquez MD [address] [place] [address] Anc Hem/Onc Amena You DEPT CLOSED - 03/26/23 200 [facility] [place] [address] Referral ID Status Reason Start Date Expiration Date V isits Requested Visits Authorized [id number] Authorized 05/28/2022 05/12/2099 99 99 Encounter Details Date Type Department Care Team (Latest Contact Info) Description 10/31/2023 8:45 AM EDT Hem/Onc Treatment Hematology/Oncolog y Treatment, [place] [address] [place] [address] Kenyatta, Chair 2 Hem Onc Scenery [address] Amena Osman [place] [address] Multiple myeloma not having achieved remission (HCC)*; Encounter for antineoplastic chemotherapy Allergies No known active allergiesdocumented as of this encounter (statuses as of 11/18/2023) Medications Medication Sig Dispensed Refills Start Date End Date Status THEOPHYLLINE ER 450 MG PO GR58Yyunfpmixrt:2 tablet at bedtime Take by mouth. Indications: [...] at bedtime. PATIENT INFORMATION: Kris Galvin [address] [place] [address] [employer]: [employer] ORDER: Please start nocturnal oxygen via nasal [...] signed) Ish Caba MD Pulmonary Medicine, [address] [place] [address] [place] [facility] Medical License Number: [id number] 1 Each 09/21/2022 Active metFORMIN HCl ER [...] as of this encounter (statuses as of 11/18/2023) Active Problems Problem Noted Date Diagnosed Date [...] as of this encounter (statuses as of 11/18/2023) Resolved Problems Problem Noted Date Diagnosed Date Resolved Date Asthma in remission 08/28/2022 08/29/19 Asthma, mild persistent 08/28/202208/11 Asthma, severe persistent 08/28/2022 Stem cell transplant candidate 08/17/2019 09/02/2019 documented as of this encounter (statuses as of 11/18/2023) Immunizations Name Administration Dates Next Due COVID-19 mRNA, LNP-s, No Pre serve, 2-Dose Series ([employer]) 01/17/2021,08/05/2020,07/08/2020 COVID-19, LNP-s, No Preserve , Bryant-sucrose, Ages 12+ (GetIntent) 09/26/2021 DTaP Dipth/Tet/Acell Pertussis (Infanrix), Peds 02/23/2021,11/11/2020,09/09/2020 HIB PRP-T, 4 Dose, PF, IM (Hiberix) 03/02/2021,0 11/11/2020,09/09/2020 Hepatitis B, 20+ yrs 02/23/2021,10/25/2020,09/09 IPV - [...] 7:05 AM EDT Laboratory Lab Mobile Phlebotomy MV [address] [facility] [place], [place] [address] Mvmg, Gml Mobile Home Draw [address] [place] [address] 11/21/2023 8:45 AM EDT Hem/Onc Treatment Hematology/Oncology Treatment, [place] 200 [place] [address] Kenyatta, Chair 2 Hem Onc Scenery 200 [facility] [place] [address] 11/27/2023 7:05 AM EDT Laboratory Lab Mobile Phlebotomy MVMG [address] [facility] [place] [address] Mvmg, Gml Mobile Home Draw [address] [facility] [place] [address] 11/28/2023 8:30 AM EDT [facility] 200 [place] [phone] Kenyatta, Chair 9 Hem Onc Scenery 200 [facility] [place] [address] 12/04/2023 7:05 AM EDT Laboratory Lab Mobile Phlebotomy MVMG [address] [place] [address] Mvmg, Gml Mobile Home Draw [address] [facility] [place] [address] 12/05/2023 8:45 AM EDT [facility] 200 [place] [address] Kenyatta, Chair 2 Hem Onc Scenery [address] [facility] [place] [address] 12/11/2023 7:00 AM EDT Laboratory Lab Mobile Phlebotomy MVMG [address] [place] [address] Mvmg, Gml Mobile Home Draw [address] [facility] [place] [address] 12/12/2023 11:15 AM EDT Office Visit Hematology/Oncology [facility] 200 [facility] [place] [phone] Morgan Vásquez MD [address] [facility] [place] [address] 12/12/2023 11:45 AM EDT Hem/Onc Treatment Hematology/Oncology Treatment, [place] [address] [place] [address] 12/18/2023 7:05 AM EDT Laboratory Lab Mobile Phlebotomy MVMG [address] [place] [address] Mvmg, Gml Mobile Home Draw [address] [place] [address] 12/25/2023 7:05 AM EDT Laboratory Lab Mobile Phlebotomy MVMG [address] [place] [address] Mvmg, Gml Mobile Home Draw [address] [place] [address] 01/01/2024 7:05 AM EDT Laboratory Lab Mobile Phlebotomy MVMG [address] [place] [address] Mvmg, Gml Mobile Home Draw [address] [place] [address] 01/08/2024 7:00 AM EDT Laboratory Lab Mobile Phlebotomy MVMG [address] [place] [address] Mvmg, Gml Mobile Home Draw [address] [place] [address] 01/15/2024 7:05 AM EDT Laboratory Lab Mobile Phlebotomy MVMG [address] [place] [address] Mvmg, Gml Mobile Home Draw [address] [facility] [place] [address] 01/22/2024 7:05 AM EDT Laboratory Lab Mobile Phlebotomy MVMG [address] [place] [address] Mvmg, Gml Mobile Home Draw [address] [place] [address] 01/29/2024 7:05 AM EDT Laboratory Lab Mobile Phlebotomy MVMG [address] [facility] [place], [place] [address] Mvmg, Gml Mobile Home Draw [address] [facility] [place], [place] [address] 02/05/2024 7:00 AM EDT Laboratory Lab Mobile Phlebotomy MVMG [address] [facility] [place], [place] [address] Mvmg, Gml Mobile Home Draw [address] [facility] [place], [place] [address] 02/05/2024 8:40 AM EDT Office Visit Neurology Amena You [place] 200 [facility] [place], [place] [address] Octavia Goins PA-C [address] [facility] [place], [place] [address] 02/07/2024 8:00 AM EDT Office Visit Rheumatology [address] [place] [phone] Darnell Higgins MD [address] [facility] [place] [address] 02/12/2024 7:05 AM EDT Laboratory Lab Mobile Phlebotomy MVMG [address] [place], [place] [address] Mvmg, Gml Mobile Home Draw [address] [facility] [place], [place] [address] 02/19/2024 7:05 AM EDT Laboratory Lab Mobile Phlebotomy MVMG [address] [place], [place] [address] Mvmg, Gml Mobile Home Draw [address] [facility] [place] [address] 02/26/2024 7:05 AM EDT Laboratory Lab Mobile Phlebotomy MVMG [address] [place], [place] [address] Mvmg, Gml Mobile Home Draw [address] [facility] [place], [place] [address] 03/04/2024 7:00 AM EDT Laboratory Lab Mobile Phlebotomy MVMG [address] [place] [address] Mvmg, Gml Mobile Home Draw [address] [place] [address] 03/11/2024 7:05 AM EDT Laboratory Lab Mobile Phlebotomy MVMG [address] [place] [address] Mvmg, Gml Mobile Home Draw [address] [place] [address] 03/18/2024 7:05 AM EST Laboratory Lab Mobile Phlebotomy MVMG [address] [place] [address] Mvmg, Gml Mobile Home Draw [address] [place] [address] 03/25/2024 7:05 AM EST Laboratory Lab Mobile Phlebotomy MVMG [address] [place] [address] Mvmg, Gml Mobile Home Draw [address] [place] [address] 04/01/2024 7:00 AM EST Laboratory Lab Mobile Phlebotomy MVMG [address] [place] [address] Mvmg, Gml Mobile Home Draw [address] [place] [address] 04/08/2024 7:05 AM EST Laboratory Lab Mobile Phlebotomy MVMG [address] [place] [address] Mvmg, Gml Mobile Home Draw [address] [place] [address] 04/15/2024 7:05 AM EST Laboratory Lab Mobile Phlebotomy MVMG [address] [place] [address] Mvmg, Gml Mobile Home Draw [address] [place] [address] 04/22/2024 7:05 AM EST Laboratory Lab Mobile Phlebotomy MVMG [address] [place] [address] Mvmg, Gml Mobile Home Draw [address] [facility] [place] [address] 04/29/2024 7:05 AM EST Laboratory Lab Mobile Phlebotomy MVMG [address] [facility] [place] [address] Mvmg, Gml Mobile Home Draw [address] [facility] [place] [address] 05/05/2024 7:05 AM EST Laboratory Lab Mobile Phlebotomy MVMG [address] [facility] [place] [address] Mvmg, Gml Mobile Home Draw [address] [facility] [place] [address] 09/02/2024 8:20 AM EDT Office Visit Pulmonary Medicine, [facility] [address] [facility] [place] [address] Ish Caba MD [address] [facility] [place] [address] 05/03/2025 7:40 AM EST Office Visit Dermatology [address] [place] [address] Albina Romo PA-C [address] [place] [address] [place] [address] Health Maintenance Due Date Last Done Comments [...] encounter Medical Devices Implanted Type Area Loan Specialist Device Identifier Shelf Expiration Date Model / Serial / Lot Mesh Plug Xlarge [id number] - [id number] Implanted:Qty: 1 on 12/09/2020 by John Zaragoza MD at OR [facility] Left: Pamin CR BARD : DAVOL 05/09/2023 [id number] / / [id number] documented as of this encounter Visit Diagnoses [...] 40 mg 40 mg, Oral, ONCE, On Illibeth 10/31/23 at 0930, For 1 dose Given [...] Power of Attor coco? No Care Teams Protection Consultant Relationship Specialty Start Date End Date Michael Collins MD [address] [place] [address] [place] [address] PCP - General Internal Medicine 03/01/14 documented as of this encounter
--- OUTSIDE RECORDS SUMMARY | 2024-03-26 16:31 | External Medical Summary | Summary of Care ---
Author Name Unknown Organization [facility] Address [address] [facility] [place] [address] Phone [phone] Care Team Providers Care Auto [employer]ulaway Driver Name Role Phone Michael Collins MD Primary Care Provi zehra Reason for Visit * Reason Comments Chemotherapy Cytoxan. * Episode Based Medications (Routine) - Authorized Specialty Diagnoses / Procedures Referred By Contac t Referred To Contact Diagnoses Multiple myeloma not having achieved remission (HCC) Procedures IA DARATUMUMAB, HYALURONIDASE IA INJ, CYCLOPHOSPHAMIDE, NOS Morgan Vásquez MD [address] [place] [address] Anc Hem/Onc Amena You DEPT CLOSED - 03/26/23 200 [facility] [place] [address] Referral ID Status Reason Start Date Expiration Date V isits Requested Visits Authorized [id number] Authorized 05/28/2022 05/12/2099 99 99 Encounter Details Date Type Department Care Team (Latest Contact Info) Description 10/31/2023 8:45 AM EDT Hem/Onc Treatment Hematology/Oncolog y Treatment, [place] [address] [place] [address] Kenyatta, Chair 2 Hem Onc Scenery 200 Amena Osman [place] [address] Multiple myeloma not having achieved remission (HCC)*; Encounter for antineoplastic chemotherapy Allergies No known active allergiesdocumented as of this encounter (statuses as of 11/19/2023) Medications Medication Sig Dispensed Refills Start Date End Date Status THEOPHYLLINE ER 450 MG PO [id number]:2 tablet at bedtime Take by mouth. Indications: [...] at bedtime. PATIENT INFORMATION: Kris Galvin [address] [place] [address] [employer]MENT [employer]: [employer] ORDER: Please start nocturnal oxygen via nasal [...] signed) Ish Caba MD Pulmonary Medicine, [address] [place] [address] [place] [facility] Medical License Number: [id number] 1 Each 09/21/2022 Active metFORMIN HCl ER [...] mRNA, LNP-s, No Pre serve, 2-Dose Series ([employer]) 01/17/2021,08/05/2020,07/08/2020 COVID-19, LNP-s, No Preserve , Bryant-sucrose, Ages 12+ ([employer]) 09/26/2021 DTaP Dipth/Tet/Acell Pertussis (Infanrix), Peds 02/23/2021,11/11/2020,09/09/2020 [...] 7:05 AM EDT Laboratory Lab Mobile Phlebotomy [facility] [address] [facility] [place] [address] Mvmg, Gml Mobile Home Draw [address] [place] [address] 11/21/2023 8:45 AM EDT Hem/Onc Treatment Hematology/Oncology Treatment, [place] 200 [place] [phone] Kenyatta, Chair 2 Hem Onc Scenery 200 [facility] [place] [address] 11/27/2023 7:05 AM EDT Laboratory Lab Mobile Phlebotomy MVMG [address] [place] [address] Mvmg, Gml Mobile Home Draw [address] [employer] [employer] [address] 11/28/2023 8:30 AM EDT [facility] 200 [place] [address] Kenyatta, Chair 9 Hem Onc Scenery 200 [place] [address] 12/04/2023 7:05 AM EDT Laboratory Lab Mobile Phlebotomy MVMG [address] [place] [address] Mvmg, Gml Mobile Home Draw [address] [employer] [employer] [place] [address] 12/05/2023 8:45 AM EDT Hem[facility] 200 [place] [address] Kenyatta, Chair 2 Hem Onc Scenery 200 [place] [address] 12/11/2023 7:00 AM EDT Laboratory Lab Mobile Phlebotomy MVMG [address] [place] [address] Mvmg, Gml Mobile Home Draw [address] [place] [address] 12/12/2023 11:15 AM EDT Office Visit Hematology/Oncology [facility] 200 [facility] [place] [address] Morgan Vásquez MD [address] [place] [address] 12/12/2023 11:45 AM EDT Hem/Onc Treatment Hematology/Oncology Treatment, [place] [address] [place] [address] 12/18/2023 7:05 AM EDT Laboratory Lab Mobile Phlebotomy M[facility]G [address] [place] [address] Mvmg, Gml Mobile Home Draw [address] [place] [address] 12/25/2023 7:05 AM EDT Laboratory Lab Mobile Phlebotomy M[facility]G [address] [place] [address] Mvmg, Gml Mobile Home Draw [address] [place] [address] 01/01/2024 7:05 AM EDT Laboratory Lab Mobile Phlebotomy M[facility]G [address] [place] [address] Mvmg, Gml Mobile Home Draw [address] [place] [address] 01/08/2024 7:00 AM EDT Laboratory Lab Mobile Phlebotomy M[facility]G [address] [place] [address] Mvmg, Gml Mobile Home Draw [address] [place] [address] 01/15/2024 7:05 AM EDT Laboratory Lab Mobile Phlebotomy M[facility]G [address] [place] [address] Mvmg, Gml Mobile Home Draw [address] [employer] [address] 01/22/2024 7:05 AM EDT Laboratory Lab Mobile Phlebotomy MVMG [address] [place] [address] Mvmg, Gml Mobile Home Draw [address] [employer] [address] 01/29/2024 7:05 AM EDT Laboratory Lab Mobile Phlebotomy MVMG [address] [place], [place] [address] Mvmg, Gml Mobile Home Draw [address] [place], [place] [address] 02/05/2024 7:00 AM EDT Laboratory Lab Mobile Phlebotomy MVMG [address] [place], [place] [address] Mvmg, Gml Mobile Home Draw [address] [facility] [address] [place], [place] [address] 02/05/2024 8:40 AM EDT Office [facility] [place] 200 [facility] [place] [address] Octavia Goins PA-C [address] [facility] [address] [place], [place] [address] 02/07/2024 8:00 AM EDT Office Visit Rheumatology [address] [place] [phone] Darnell [place] MD [address] [facility] [address] [place], [place] [address] 02/12/2024 7:05 AM EDT Laboratory Lab Mobile Phlebotomy MVMG [address] [place], [place] [address] Mvmg, Gml Mobile Home Draw [address] [place], [place] [address] 02/19/2024 7:05 AM EDT Laboratory Lab Mobile Phlebotomy MVMG [address] [place], [place] [address] Mvmg, Gml Mobile Home Draw [address] [place], [place] [address] 02/26/2024 7:05 AM EDT Laboratory Lab Mobile Phlebotomy MVMG [address] [place], [place] [address] Mvmg, Gml Mobile Home Draw [address] [place] [address] 03/04/2024 7:00 AM EDT Laboratory Lab Mobile Phlebotomy MVMG [address] [place] [address] Mvmg, Gml Mobile Home Draw [address] [place] [address] 03/11/2024 7:05 AM EDT Laboratory Lab Mobile Phlebotomy MVMG [address] [place] [address] Mvmg, Gml Mobile Home Draw [address] [place] [address] 03/18/2024 7:05 AM EST Laboratory Lab Mobile Phlebotomy MVMG [address] [place] [address] Mvmg, Gml Mobile Home Draw [address] [place] [address] 03/25/2024 7:05 AM EST Laboratory Lab Mobile Phlebotomy MVMG [address] [place] [address] Mvmg, Gml Mobile Home Draw [address] [place] [address] 04/01/2024 7:00 AM EST Laboratory Lab Mobile Phlebotomy MVMG [address] [place] [address] Mvmg, Gml Mobile Home Draw [address] [place] [address] 04/08/2024 7:05 AM EST Laboratory Lab Mobile Phlebotomy MVMG [address] [place] [address] Mvmg, Gml Mobile Home Draw [address] [place] [address] 04/15/2024 7:05 AM EST Laboratory Lab Mobile Phlebotomy MVMG [address] [place] [address] Mvmg, Gml Mobile Home Draw [address] [place] [address] 04/22/2024 7:05 AM EST Laboratory Lab Mobile Phlebotomy MVMG [address] [place] [address] Mvmg, Gml Mobile Home Draw [address] [facility] [place] [address] 04/29/2024 7:05 AM EST Laboratory Lab Mobile Phlebotomy MVMG [address] [employer] [place] [address] Mvmg, Gml Mobile Home Draw [address] [facility] [place] [address] 05/05/2024 7:05 AM EST Laboratory Lab Mobile Phlebotomy M[facility] [address] [place] [address] Mvmg, Gml Mobile Home Draw [address] [facility] [place] [address] 09/02/2024 8:20 AM EDT Office Visit Pulmonary Medicine, [facility] [address] [facility] [place] [address] Ish Caba MD [address] [facility] [place] [address] 05/03/2025 7:40 AM EST Office Visit Dermatology [address] [place] [address] Albina Romo PA-C [address] [place] [address] [place] [address] Health Maintenance Due Date Last Done Comments [...] encounter Medical Devices Implanted Type Area Manager Animation Device Identifier Shelf Expiration Date Model / Serial / Lot Mesh Plug Xlarge [id number] - [id number] Implanted:Qty: 1 on 12/09/2020 by John Zaragoza MD at OR [facility] Left: Groin CR BARD : DAVOL 05/09/2023 [id number] / / [id number] documented as of this encounter Visit Diagnoses [...] of Attor coco? No Care Teams Auto Haulaway Driver Relationship Specialty Start Date End Date Michael Collins MD [address] [place] [address] [place] [address] PCP - General Internal Medicine 03/01/14 documented as of this encounter
--- OUTSIDE RECORDS SUMMARY | 2024-03-26 16:31 | External Medical Summary | Summary of Care ---
Author Name Unknown Organization [facility] Address [address] [facility] [place] [address] Phone [phone] Care Team Providers Care Weed Science Research Technician Name Role Phone Michael Collins MD Primary Care Provi zehra Reason for Visit * Reason Comments Chemotherapy Cytoxan. * Episode Based Medications (Routine) - Authorized Specialty Diagnoses / Procedures Referred By Contac t Referred To Contact Diagnoses Multiple myeloma not having achieved remission (HCC) Procedures [place] DARATUMUMAB, HYALURONIDASE [place] INJ, CYCLOPHOSPHAMIDE, NOS Morgan Vásquez MD [address] [place] [address] Anc Hem/Onc Amena You DEPT CLOSED - 03/26/23 200 [facility] [place] [address] Referral ID Status Reason Start Date Expiration Date V isits Requested Visits Authorized [id number] Authorized 05/28/2022 05/12/2099 99 99 Encounter Details Date Type Department Care Team (Latest Contact Info) Description 10/31/2023 8:45 AM EDT Hem/Onc Treatment Hematology/Oncolog y Treatment, [place] [address] [place] [address] Kenyatta, Chair 2 Hem Onc Scenery [address] Amena Osman [place] [address] Multiple myeloma not having achieved remission (HCC)*; Encounter for antineoplastic chemotherapy Allergies No known active allergiesdocumented as of this encounter (statuses as of 11/19/2023) Medications Medication Sig Dispensed Refills Start Date End Date Status THEOPHYLLINE ER 450 MG PO BH23Gtpeewbayfi:2 tablet at bedtime Take by mouth. Indications: [...] at bedtime. PATIENT INFORMATION: Kris Galvin [address] [place] [address] [employer]: [email or web address] ORDER: Please start nocturnal oxygen via nasal [...] signed) Ish Caba MD Pulmonary Medicine, [address] [place] [address] [place] [facility] Medical License Number: [id number] 1 Each 09/21/2022 Active metFORMIN HCl ER [...] mRNA, LNP-s, No Pre serve, 2-Dose Series (Datical) 01/17/2021,08/05/2020,07/08/2020 COVID-19, LNP-s, No Preserve , Bryant-sucrose, Ages 12+ (Datical) 09/26/2021 DTaP Dipth/Tet/Acell Pertussis (Infanrix), Peds 02/23/2021,11/11/2020,09/09/2020 [...] EDT Laboratory Lab Mobile Phlebotomy [facility] [address] [facility] [place] [address] Mvmg, Gml Mobile Home Draw [address] [place] [address] 11/21/2023 8:45 AM EDT Hem/Onc Treatment Hematology/Oncology Treatment, [place] 200 [place] [phone] Kenyatta, Chair 2 Hem Onc Scenery 200 [facility] [place] [address] 11/27/2023 7:05 AM EDT Laboratory Lab Mobile Phlebotomy [facility] [address] [place] [address] Mvmg, Gml Mobile Home Draw [address] [place] [address] 11/28/2023 8:30 AM EDT [facility] 200 [place] [phone] Kenyatta, Chair 9 Hem Onc Scenery 200 [facility] [address] 12/04/2023 7:05 AM EDT Laboratory Lab Mobile Phlebotomy [facility] [address] [place] [address] Mvmg, Gml Mobile Home Draw [address] [place] [address] 12/05/2023 8:45 AM EDT Hem[facility] 200 [place] [phone] Kenyatta, Chair 2 Hem Onc Scenery 200 [facility] [address] 12/11/2023 7:00 AM EDT Laboratory Lab Mobile Phlebotomy [facility] [address] [place] [address] Mvmg, Gml Mobile Home Draw [address] [place] [address] 12/12/2023 11:15 AM EDT Office Visit Hematology/Oncology [facility] 200 [place] [address] Morgan Vásquez MD [address] [place] [address] 12/12/2023 11:45 AM EDT Hem/Onc Treatment Hematology/Oncology Treatment, [place] [address] [place] [phone] 12/18/2023 7:05 AM EDT Laboratory Lab Mobile Phlebotomy [facility] [address] [place] [address] Mvmg, Gml Mobile Home Draw [address] [place] [address] 12/25/2023 7:05 AM EDT Laboratory Lab Mobile Phlebotomy [facility] [address] [place] [address] Mvmg, Gml Mobile Home Draw [address] [place] [address] 01/01/2024 7:05 AM EDT Laboratory Lab Mobile Phlebotomy [facility] [address] [place] [address] Mvmg, Gml Mobile Home Draw [address] [place] [address] 01/08/2024 7:00 AM EDT Laboratory Lab Mobile Phlebotomy [facility] [address] [place] [address] Mvmg, Gml Mobile Home Draw [address] [place] [address] 01/15/2024 7:05 AM EDT Laboratory Lab Mobile Phlebotomy [facility] [address] [place] [address] Mvmg, Gml Mobile Home Draw [address] [place] [address] 01/22/2024 7:05 AM EDT Laboratory Lab Mobile Phlebotomy [facility] [address] [place] [address] Mvmg, Gml Mobile Home Draw [address] [place] [address] 01/29/2024 7:05 AM EDT Laboratory Lab Mobile Phlebotomy [facility] [address] [place], [place] [address] Mvmg, Gml Mobile Home Draw [address] [place], [place] [address] 02/05/2024 7:00 AM EDT Laboratory Lab Mobile Phlebotomy [facility] [address] [place], [place] [address] Mvmg, Gml Mobile Home Draw [address] [facility] [address] [place], [place] [address] 02/05/2024 8:40 AM EDT Office [facility] [place] 200 [facility] [place] [address] Octavia Goins PA-C [address] [facility] [address] [place], [place] [address] 02/07/2024 8:00 AM EDT Office Visit Rheumatology [address] [place] [phone] Darnell Higgins MD [address] [facility] [address] [place], [place] [address] 02/12/2024 7:05 AM EDT Laboratory Lab Mobile Phlebotomy [facility] [address] [place], [place] [address] Mvmg, Gml Mobile Home Draw [address] [place], [place] [address] 02/19/2024 7:05 AM EDT Laboratory Lab Mobile Phlebotomy [facility] [address] [place], [place] [address] Mvmg, Gml Mobile Home Draw [address] [place], [place] [address] 02/26/2024 7:05 AM EDT Laboratory Lab Mobile Phlebotomy [facility] [address] [place], [place] [address] Mvmg, Gml Mobile Home Draw [address] [place] [address] 03/04/2024 7:00 AM EDT Laboratory Lab Mobile Phlebotomy [facility] [address] [facility] [place] [address] Mvmg, Gml Mobile Home Draw [address] [facility] [place] [address] 03/11/2024 7:05 AM EDT Laboratory Lab Mobile Phlebotomy [facility] [address] [facility] [place] [address] Mvmg, Gml Mobile Home Draw [address] [facility] [place] [address] 03/18/2024 7:05 AM EST Laboratory Lab Mobile Phlebotomy [facility] [address] [facility] [place] [address] Mvmg, Gml Mobile Home Draw [address] [facility] [place] [address] 03/25/2024 7:05 AM EST Laboratory Lab Mobile Phlebotomy [facility] [address] [facility] [place] [address] Mvmg, Gml Mobile Home Draw [address] [facility] [place] [address] 04/01/2024 7:00 AM EST Laboratory Lab Mobile Phlebotomy [facility] [address] [facility] [place] [address] Mvmg, Gml Mobile Home Draw [address] [facility] [place] [address] 04/08/2024 7:05 AM EST Laboratory Lab Mobile Phlebotomy [facility] [address] [facility] [place] [address] Mvmg, Gml Mobile Home Draw [address] [facility] [place] [address] 04/15/2024 7:05 AM EST Laboratory Lab Mobile Phlebotomy [facility] [address] [facility] [place] [address] Mvmg, Gml Mobile Home Draw [address] [facility] [place] [address] 04/22/2024 7:05 AM EST Laboratory Lab Mobile Phlebotomy [facility] [address] [facility] [place] [address] Mvmg, Gml Mobile Home Draw [address] [facility] [place] [address] 04/29/2024 7:05 AM EST Laboratory Lab Mobile Phlebotomy [facility] [address] [place] [address] Mvmg, Gml Mobile Home Draw [address] [facility] [place] [address] 05/05/2024 7:05 AM EST Laboratory Lab Mobile Phlebotomy [facility] [address] [place] [address] Mvmg, Gml Mobile Home Draw [address] [facility] [place] [address] 09/02/2024 8:20 AM EDT Office Visit Pulmonary Medicine, [facility] [address] [facility] [place] [address] Ish Caba MD [address] [facility] [place] [address] 05/03/2025 7:40 AM EST Office Visit Dermatology [address] [place] [address] Albina Romo PA-C [address] [place] [address] [place] [address] Health Maintenance Due Date Last Done Comments [...] this encounter Medical Devices Implanted Type Area Utilization Manager Device Identifier Shelf Expiration Date Model / Serial / Lot Mesh Plug Xlarge [id number] - [id number] Implanted:Qty: 1 on 12/09/2020 by John Zaragoza MD at OR [facility] Left: Groin CR BARD : DAVOL 05/09/2023 [id number] / / [id number] documented as of this encounter Visit Diagnoses [...] Power of Attor coco? No Care Teams Weed Science Research Technician Relationship Specialty Start Date End Date Michael Collins MD [address] [place] [address] [place] [address] PCP - General Internal Medicine 03/01/14 documented as of this encounter
--- OUTSIDE RECORDS SUMMARY | 2024-03-26 16:31 | External Medical Summary | Summary of Care ---
Author Name Unknown Organization [facility] Address [address] [facility] [place] [address] Phone [phone] Care Team Providers Care Firer Helper Name Role Phone Michael Collins MD Primary Care Provi zehra Reason for Visit * Reason Comments Chemotherapy Cytoxan/Darzalex Fas pro * Episode Based Medications (Routine) - Authorized Specialty Diagnoses / Procedures Referred By Contac t Referred To Contact Diagnoses Multiple myeloma not having achieved remission (HCC) Procedures [place] DARATUMUMAB, HYALURONIDASE [place] INJ, CYCLOPHOSPHAMIDE, NOS Morgan Vásquez MD [address] [place] [address] Anc Hem/Onc Amena You DEPT CLOSED - 03/26/23 200 [facility] [place] [address] Referral ID Status Reason Start Date Expiration Date V isits Requested Visits Authorized [id number] Authorized 05/28/2022 05/12/2099 99 99 Encounter Details Date Type Department Care Team (Latest Contact Info) Description 11/15/2023 8:30 AM EDT Hem/Onc Treatment Hematology/Oncolog y Treatment, [place] [address] [place] [address] Kenyatta, Chair 11 Hem Onc Scenery 200 Amena Os[address] [place] [address] Multiple myeloma not having achieved remission (HCC)*; Encounter for antineoplastic chemotherapy Allergies No known active allergiesdocumented as of this encounter (statuses as of 11/18/2023) Medications Medication Sig Dispensed Refills Start Date End Date Status THEOPHYLLINE ER 450 MG PO NX98Sozlcbjzcgx:2 tablet at bedtime Take by mouth. Indications: [...] nostril at bedtime. PATIENT INFORMATION: Kris Galvin [address] [place] [address] [employer]: [email or web address] ORDER: Please start nocturnal oxygen via nasal [...] (electronically signed) Ish Caba MD Pulmonary Medicine, [address] [place] [address] [place] [facility] Medical License Number: [id number] 1 Each 09/21/2022 Active metFORMIN HCl ER [...] mRNA, LNP-s, No Pre serve, 2-Dose Series (ElasticDot) 01/17/2021,08/05/2020,07/08/2020 COVID-19, LNP-s, No Preserve , Bryant-sucrose, Ages 12+ (ElasticDot) 09/26/2021 DTaP Dipth/Tet/Acell Pertussis (Infanrix), Peds 02/23/2021,11/11/2020,09/09/2020 [...] this encounter Nursing Notes * Brittanie Riggs, JOHANN - 11/15/2023 4:49 PM EDT Pt completed [...] 7:05 AM EDT Laboratory Lab Mobile Phlebotomy [facility] [address] [facility] [place] [address] Mvmg, Gml Mobile Home Draw [address] [facility] [place] [address] 11/21/2023 8:45 AM EDT Hem/Onc Treatment Hematology/Oncology Treatment, [place] 200 [place] [phone] Park, Chair 2 Hem Onc Scenery 200 [facility] [place] [address] 11/27/2023 7:05 AM EDT Laboratory Lab Mobile Phlebotomy [facility] [address] [place] [address] Mvmg, Gml Mobile Home Draw [address] [facility] [place] [address] 11/28/2023 8:30 AM EDT Hem/Onc Treatment Hematology/Oncology Treatment, [place] 200 [facility] [place] [address] Kenyatta, Chair 9 Hem Onc Scenery 200 [facility] [place] [address] 12/04/2023 7:05 AM EDT Laboratory Lab Mobile Phlebotomy [facility] [address] [place] [address] Mvmg, Gml Mobile Home Draw [address] [facility] [place] [address] 12/05/2023 8:45 AM EDT Hem/Onc Treatment Hematology/Oncology Treatment, [place] 200 [facility] [place] [phone] Kenyatta, Chair 2 Hem Onc Scenery 200 [facility] [place] [address] 12/11/2023 7:00 AM EDT Laboratory Lab Mobile Phlebotomy [facility] [address] [email or web address] [address] Mvmg, Gml Mobile Home Draw [address] [place] [address] 12/12/2023 11:15 AM EDT Office Visit [facility]ology[facility] [place] [address] [place] [address] Morgan Vásquez MD [address] [place] [address] 12/12/2023 11:45 AM EDT Hem/Onc Treatment Hematology/Oncology Treatment, [place] [address] [place], [place] [phone] 12/18/2023 7:05 AM EDT Laboratory Lab Mobile Phlebotomy [facility] [address] [employer] [place], [place] [address] Mvmg, Gml Mobile Home Draw [address] [place], [place] [address] 12/25/2023 7:05 AM EDT Laboratory Lab Mobile Phlebotomy [facility] [address] [email or web address] [address] [place], [place] [address] Mvmg, Gml Mobile Home Draw [address] [place] [address] 01/01/2024 7:05 AM EDT Laboratory Lab Mobile Phlebotomy [facility] [address] [place] [address] Mvmg, Gml Mobile Home Draw [address] [place] [address] 01/08/2024 7:00 AM EDT Laboratory Lab Mobile Phlebotomy [facility] [address] [place] [address] Mvmg, Gml Mobile Home Draw [address] [place] [address] 01/15/2024 7:05 AM EDT Laboratory Lab Mobile Phlebotomy [facility] [address] [place] [address] Mvmg, Gml Mobile Home Draw [address] [place] [address] 01/22/2024 7:05 AM EDT Laboratory Lab Mobile Phlebotomy [facility] [address] [place] [address] Mvmg, Gml Mobile Home Draw [address] [place], [place] [address] 01/29/2024 7:05 AM EDT Laboratory Lab Mobile Phlebotomy [facility] [address] [email or web address] [address] [place], [place] [address] Mvmg, Gml Mobile Home Draw [address] [facility] [address] [place], [place] [address] 02/05/2024 7:00 AM EDT Laboratory Lab Mobile Phlebotomy [facility] [address] [place] [address] Mvmg, Gml Mobile Home Draw [address] [facility] [place], [place] [address] 02/05/2024 8:40 AM EDT [facility] [place] 200 [facility] [place] [address] Octavia Goins PA-C 200 [facility] [place] [address] 02/07/2024 8:00 AM EDT Office Visit Rheumatology [address] [place] [phone] Darnell Higgins MD [facility] [place], [place] [address] 02/12/2024 7:05 AM EDT Laboratory Lab Mobile Phlebotomy [facility] [address] [email or web address] [facility] [address] [place], [place] [address] Mvmg, Gml Mobile Home Draw [address] [place] [employer] [place], [place] [address] 02/19/2024 7:05 AM EDT Laboratory Lab Mobile Phlebotomy [facility] [address] [place], [place] [address] Mvmg, Gml Mobile Home Draw [address] [facility] [address] [place], [place] [address] 02/26/2024 7:05 AM EDT Laboratory Lab Mobile Phlebotomy [facility] [address] [place], [place] [address] Mvmg, Gml Mobile Home Draw 2520 [facility] [place] [address] 03/04/2024 7:00 AM EDT Laboratory Lab Mobile Phlebotomy [facility] [address] [facility] [place] [address] Mvmg, Gml Mobile Home Draw [address] [facility] [place] [address] 03/11/2024 7:05 AM EDT Laboratory Lab Mobile Phlebotomy [facility] [address] [facility] [place] [address] Mvmg, Gml Mobile Home Draw [address] [facility] [place] [address] 03/18/2024 7:05 AM EST Laboratory Lab Mobile Phlebotomy [facility] [address] [facility] [place] [address] Mvmg, Gml Mobile Home Draw [address] [facility] [place] [address] 03/25/2024 7:05 AM EST Laboratory Lab Mobile Phlebotomy [facility] [address] [facility] [place] [address] Mvmg, Gml Mobile Home Draw [address] [facility] [place] [address] 04/01/2024 7:00 AM EST Laboratory Lab Mobile Phlebotomy [facility] [address] [facility] [place] [address] Mvmg, Gml Mobile Home Draw [address] [facility] [place] [address] 04/08/2024 7:05 AM EST Laboratory Lab Mobile Phlebotomy [facility] [address] [facility] [place] [address] Mvmg, Gml Mobile Home Draw [address] [facility] [place] [address] 04/15/2024 7:05 AM EST Laboratory Lab Mobile Phlebotomy [facility] [address] [facility] [place] [address] Mvmg, Gml Mobile Home Draw [address] [facility] [place] [address] 04/22/2024 7:05 AM EST Laboratory Lab Mobile Phlebotomy [facility] [address] [place] [address] Mvmg, Gml Mobile Home Draw [address] [employer] [place], [place] [address] 04/29/2024 7:05 AM EST Laboratory Lab Mobile Phlebotomy [facility] [address] [employer] [place], [place] [address] Mvmg, Gml Mobile Home Draw [address] [employer] [place], [place] [address] 05/05/2024 7:05 AM EST Laboratory Lab Mobile Phlebotomy [facility] [address] [employer] [place], [place] [address] Mvmg, Gml Mobile Home Draw [address] [employer] [place], [place] [address] 09/02/2024 8:20 AM EDT Office Visit Pulmonary Medicine, [facility] 132 [facility] [place] [address] Ish Caba MD [address] [place] [address] 05/03/2025 7:40 AM EST Office Visit Dermatology [address] [place] [address] Albina Romo PA-C [address] [place] [address] [place] [address] Pending Results Name Type Priority Associated Diagnoses Date /Time SERUM PROTEIN ELECTROPHORESIS REFLEX PROFILE Lab Routine Multiple myeloma not having achieved remission (HCC) 11/13/2023 7:55 AM EDT Scheduled Orders Name Type Priority Associated Diagnoses Orde r Schedule SERUM PROTEIN ELECTROPHORESIS REFLEX PROFILE Lab Routine Multiple myeloma not having achieved remission (HCC) Expected: 11/15/2023, Expires: 11/14/2024 Health Maintenance Due Date Last Done Comments [...] this encounter Medical Devices Implanted Type Area Upkeep Worker Device Identifier Shelf Expiration Date Model / Serial / Lot Mesh Plug Xlarge [id number] - [id number] Implanted:Qty: 1 on 12/09/2020 by John Zaragoza MD at OR [facility] Left: Groin CR BARD : DAVOL 05/09/2023 [id number] / / [id number] documented as of this encounter Results * (ABNORMAL) SERUM FREE LIGHT CHAINS (11/13/2023 7:55 AM EDT) Noel Free Light Chains, Serum 21.50(H) 3.30 - 19.40 mg/L 11/15/2023 10:34 AM EDT LABORATORY [facility] Lambda Free Light Chains, Serum 1.36(L) 5.71 - 26.30 mg/L 11/15/2023 10:34 AM EDT LAB[facility]ATORY [facility] Noel Lambda Free Light Chains Ratio 15.81(H) 0.26 - 1.65 11/15/2023 10:34 AM EDT [facility]ORY [facility] Blood Venous blood specimen / Unknown Venipuncture / Unknown 11/13/2023 7:55 AM EDT 11/13/2023 11:12 AM EDT Morgan Vásquez MD LAB BLOOD ORDERABLES Performing Organization Address [facility] Co de Phone Number LABORATORY [facility] [address] [place] [address] * (ABNORMAL) IMMUNOGLOBULIN QUANTITATIVE (11/13/2023 7:55 AM EDT) Pathologist [facility] IgG 1,103 700 - 1,600 mg/dL 11/15/2023 10:29 AM EDT LAB[facility]ORY [facility] IgA 16(L) 70 - 400 mg/dL 11/15/2023 10:29 AM EDT LAB[facility]ORY [facility] IgM 11(L) 40 - 230 mg/dL 11/15/2023 10:29 AM EDT LABORATORY C Blood Venous blood specimen / Unknown Venipuncture / Unknown 11/13/2023 7:55 AM EDT 11/13/2023 11:12 AM EDT Morgan Vásquez MD LAB BLOOD ORDERABLES Performing Organization Address [facility]/ZIP Co de Phone Number LABORATORY [facility] [address] [place] [address] documented in this encounter Visit Diagnoses Diagnosis [...] 517.4 mL/hr Daratumumab-hyaluronida se-fihj (Darzalex Faspro) 1800 mg-83981 units/ 15 ml subcut inj 15 mL, [...] Power of Attor coco? No Care Teams Firer Helper Relationship Specialty Start Date End Date Michael Collnis MD [address] [place] [address] [place] [address] PCP - General Internal Medicine 03/01/14 documented as of this encounter
--- OUTSIDE RECORDS SUMMARY | 2024-03-26 16:31 | External Medical Summary | Summary of Care ---
Author Name Unknown Organization [facility] Address [address] [facility] [place] [address] Phone [phone] Care Team Providers Care Assurance Manager Insurance Name Role Phone Michael Collins MD Primary Care Provi zehra Reason for Visit * Reason Comments Treatment * Episode Based Medications (Routine) - Authorized Specialty Diagnoses / Procedures Referred By Contac t Referred To Contact Diagnoses Multiple myeloma not having achieved remission (HCC) Procedures CO DARATUMUMAB, HYALURONIDASE CO INJ, CYCLOPHOSPHAMIDE, NOS Morgan Vásquez MD [address] [place] [address] Anc Hem/Onc Amena You DEPT CLOSED - 03/26/23 [facility] [place] [address] Referral ID Status Reason Start Date Expiration Date V isits Requested Visits Authorized [id number] Authorized 05/28/2022 05/12/2099 99 99 Encounter Details Date Type Department Care Team (Latest Contact Info) Description 11/07/2023 8:45 AM EDT Hem/Onc Treatment Hematology/Oncology Treatment, [place] [address] [place] [address] Kenyatta, Chair 9 Hem Onc Pamela [address] [place] [address] [address] Multiple myeloma not having achieved remission (HCC)* Allergies No known active allergiesdocumented as of this encounter (statuses as of 11/19/2023) Medications Medication Sig Dispensed Refills Start Date End Date Status THEOPHYLLINE ER 450 MG PO SA36Quvspykimez:2 tablet at bedtime Take by mouth. Indications: [...] Take by mouth. Active Multiple Vitamins-Minerals ([facility] IMMUNITY SUPPORT) CHEW Take by mouth. [...] nostril at bedtime. PATIENT INFORMATION: Kris Galvin [address] [place] [address] [employer] MEDICAL EQUIPMENT [email or web address]: [employer] ORDER: Please start nocturnal oxygen via [...] (electronically signed) Ish Caba MD Pulmonary Medicine, [facility] [address] [facility] [place] [address] [place] [facility] Medical License Number: [id number] 1 Each 09/21/2022 Active metFORMIN HCl ER [...] mRNA, LNP-s, No Pre serve, 2-Dose Series (Daptiv) 01/17/2021,08/05/2020,07/08/2020 COVID-19, LNP-s, No Preserve , Bryant-sucrose, Ages 12+ (Daptiv) 09/26/2021 DTaP Dipth/Tet/Acell Pertussis (Infanrix), Peds 02/23/2021,11/11/2020,09/09/2020 [...] Sign Reading Time Taken Comments Blood Pressure 119/80 11/07/2023 8:45 AM EDT Pulse 74 11/07/2023 8:45 AM EDT Temperature 36.8 C (98.2 F) 11/07/2023 8:45 AM ED T Respiratory Rate 18 11/07/2023 8:45 AM EDT Oxygen Saturation 93% 11/07/2023 8:45 AM EDT Inhaled Oxygen Concentration - - Weight 131.8 kg (290 lb 9.6 oz) 11/07/2023 8:45 AM EDT Height - - Body Mass Index 39.41 10/11/2023 9:26 AM EDT documented in this [...] as of this encounter Nursing Notes * Melissa Bales RN - 11/07/2023 1:15 PM EDT Functional status at today's visit: Restricted in [...] symptoms or adverse side effects during treatment. Goals: patient will be free from falls during time in treatment room Possible barriers to meeting goals: IV pole and tubing Stability of the patient: Moderately stable - low risk of patient condition declining or worsening Summary regarding today's goals: Met: fall free Safety and Risk for Injury Patient will remain free from injury. Ensure appropriate safety devices are available. Provide and maintain safe environment. documented in this encounter Plan of Treatment Upcoming Encounters Date Type Department Care Team (Late st Contact Info) Description 11/20/2023 7:05 AM EDT Laboratory Lab Mobile Phlebotomy [facility] [address] [place] [address] M[place], Gml Mobile Home Draw [address] [place] [address] 11/21/2023 8:45 AM EDT Hem/Onc Treatment Hematology/Oncology Treatment, [place] [address] [facility], [place] [phone] Kenyatta, Chair 2 Hem Onc Scenery 200 [facility] [place] [address] 11/27/2023 7:05 AM EDT Laboratory Lab Mobile Phlebotomy [facility] [address] [place] [address] Mvmg, Gml Mobile Home Draw [address] [place] [address] 11/28/2023 8:30 AM EDT Hem/Onc Treatment Hematology/Oncology Treatment, [place] [address] [facility] [place] [phone] Kenyatta, Chair 9 Hem Onc Scenery 200 [place] [address] 12/04/2023 7:05 AM EDT Laboratory Lab Mobile Phlebotomy [facility] [address] [place] [address] Mvmg, Gml Mobile Home Draw [address] [place] [address] 12/05/2023 8:45 AM EDT [facility] [address] [facility] [place] [phone] Park, Chair 2 Hem Onc [facility] 200 [place] [address] 12/11/2023 7:00 AM EDT Laboratory Lab Mobile Phlebotomy [facility] [address] [place], [place] [address] Mvmg, Gml Mobile Home Draw [address] [place], [place] [address] 12/12/2023 11:15 AM EDT Office Visit Hematology/Oncology [facility] 200 [facility], [place] [phone] Morgan Vásquez MD [address] [facility], [place] [address] 12/12/2023 11:45 AM EDT [facility] [address] [facility] [place] [address] 12/18/2023 7:05 AM EDT Laboratory Lab Mobile Phlebotomy [facility] [address] [place], [place] [address] Mvmg, Gml Mobile Home Draw [address] [place], [place] [address] 12/25/2023 7:05 AM EDT Laboratory Lab Mobile Phlebotomy [facility] [address] [place] [address] Mvmg, Gml Mobile Home Draw [address] [place] [address] 01/01/2024 7:05 AM EDT Laboratory Lab Mobile Phlebotomy [facility] [address] [place], [place] [address] Mvmg, Gml Mobile Home Draw [address] [place] [address] 01/08/2024 7:00 AM EDT Laboratory Lab Mobile Phlebotomy [facility] [address] [place] [address] Mvmg, Gml Mobile Home Draw [address] [facility] [place] [address] 01/15/2024 7:05 AM EDT Laboratory Lab Mobile Phlebotomy [facility] [address] [place] [address] Mvmg, Gml Mobile Home Draw [address] [facility] [place] [address] 01/22/2024 7:05 AM EDT Laboratory Lab Mobile Phlebotomy [facility] [address] [place] [address] Mvmg, Gml Mobile Home Draw [address] [facility] [place] [address] 01/29/2024 7:05 AM EDT Laboratory Lab Mobile Phlebotomy [facility] [address] [employer] Cecile Osman [place], [place] [address] Mvmg, Gml Mobile Home Draw [address] [place] [address] 02/05/2024 7:00 AM EDT Laboratory Lab Mobile Phlebotomy [facility] [address] [place], [place] [address] Mvmg, Gml Mobile Home Draw [address] [facility] [place] [address] 02/05/2024 8:40 AM EDT Office Visit Neurology [facility] [place] [address] [facility] [place], [place] [address] Octavia Goins PA-C 200 [facility] [place] [address] 02/07/2024 8:00 AM EDT Office Visit Rheumatology [address] [place] [address] Darnell Higgins MD [address] [employer] [facility] [place] [address] 02/12/2024 7:05 AM EDT Laboratory Lab Mobile Phlebotomy [facility] [address] [facility] [place] [address] Mvmg, Gml Mobile Home Draw [address] [facility] [place] [address] 02/19/2024 7:05 AM EDT Laboratory Lab Mobile Phlebotomy [facility] [address] [facility] [place] [address] Mvmg, Gml Mobile Home Draw [address] [facility] [place] [address] 02/26/2024 7:05 AM EDT Laboratory Lab Mobile Phlebotomy [facility] [address] [facility] [place] [address] Mvmg, Gml Mobile Home Draw [address] [facility] [place] [address] 03/04/2024 7:00 AM EDT Laboratory Lab Mobile Phlebotomy [facility] [address] [facility] [place] [address] Mvmg, Gml Mobile Home Draw [address] [facility] [place] [address] 03/11/2024 7:05 AM EDT Laboratory Lab Mobile Phlebotomy [facility] [address] [facility] [place] [address] Mvmg, Gml Mobile Home Draw [address] [facility] [place] [address] 03/18/2024 7:05 AM EST Laboratory Lab Mobile Phlebotomy [facility] [address] [facility] [place] [address] Mvmg, Gml Mobile Home Draw [address] [facility] [place] [address] 03/25/2024 7:05 AM EST Laboratory Lab Mobile Phlebotomy [facility] [address] [facility] [place] [address] Mvmg, Gml Mobile Home Draw [address] [facility] [place] [address] 04/01/2024 7:00 AM EST Laboratory Lab Mobile Phlebotomy [facility] [address] [facility] [place] [address] Mvmg, Gml Mobile Home Draw [address] [employer] [place] [address] 04/08/2024 7:05 AM EST Laboratory Lab Mobile Phlebotomy [facility] [address] [employer] [place] [address] Mvmg, Gml Mobile Home Draw [address] [employer] [place] [address] 04/15/2024 7:05 AM EST Laboratory Lab Mobile Phlebotomy [facility] [address] [employer] [place] [address] Mvmg, Gml Mobile Home Draw [address] [employer] [place] [address] 04/22/2024 7:05 AM EST Laboratory Lab Mobile Phlebotomy [facility] [address] [employer] [place] [address] Mvmg, Gml Mobile Home Draw [address] [facility] [place] [address] 04/29/2024 7:05 AM EST Laboratory Lab Mobile Phlebotomy [facility] [address] [employer] [place] [address] Mvmg, Gml Mobile Home Draw [address] [facility] [place] [address] 05/05/2024 7:05 AM EST Laboratory Lab Mobile Phlebotomy [facility] [address] [employer] [place] [address] Mvmg, Gml Mobile Home Draw [address] [facility] [place] [address] 09/02/2024 8:20 AM EDT Office Visit Pulmonary Medicine, [facility] [address] [place] [address] Ish Caba MD [address] [place] [address] 05/03/2025 7:40 AM EST Office Visit Dermatology [address] [place] [address] DemetriusAlbina PA-C [address] [place] [address] [place] [address] Health Maintenance Due Date Last Done Comments [...] this encounter Medical Devices Implanted Type Area Fiber Technician Device Identifier Shelf Expiration Date Model / Serial / Lot Mesh Plug Xlarge [id number] - [id number] Implanted:Qty: 1 on 12/09/2020 by John Zaragoza MD at OR [facility] Left: Demond RIVAS BARD : LUCINDA 05/09/2023 [id number] / / [id number] documented as of this encounter Visit Diagnoses [...] not tolerated., ONCE, 1 dose, On Lilibeth 11/07/23 at 0915 Start Infusion 11/07/2023 9:24 AM EDT 740 mg 517.4 mL/hr dexAMETHasone (Decadron) tab 40 mg 40 mg, Oral, ONCE, On Lilibeth 11/07/23 at 0915, For 1 dose Given 11/07/2023 9:00 AM EDT 40 mg NSS infusion FOR HYDRATION Intravenous, at 500 mL/hr Administer over 2 Hours, ONCE, 1 dose, On Lilibeth 11/07/23 at 0915 Start Infusion 11/07/2023 9:15 AM EDT 1,000 mL 500 mL/hr NSS infusion FOR HYDRATION Intravenous, at 50 mL/hr Administer over 10 Hours, CONTINUOUS, Starting on Lilibeth 11/07/23 at 0915, Until Lilibeth 11/07/23 at 1719 Start Infusion 11/07/2023 9:13 AM EDT 500 mL 50 mL/hr ondansetron (Zofran) tab 8 mg 8 mg, Oral, ONCE, On Lilibeth 11/07/23 at 0915, For 1 dose Given 11/07/2023 9:15 AM EDT 8 mg documented in this [...] Power of Attor coco? No Care Teams Assurance Manager Insurance Relationship Specialty Start Date End Date Michael Collins MD [address] [place] [address] [place] [address] PCP - General Internal Medicine 03/01/14 documented as of this encounter
--- OUTSIDE RECORDS SUMMARY | 2024-03-26 16:32 | External Medical Summary | Summary of Care ---
Author Name Unknown Organization [facility] Address [address] [facility] [place] [address] Phone [phone] Care Team Providers Care Psychiatric Arnp Name Role Phone Michael Collins MD Primary Care Provi zehra Reason for Visit * Reason Comments Chemotherapy Cytoxan. * Episode Based Medications (Routine) - Authorized Specialty Diagnoses / Procedures Referred By Contac t Referred To Contact Diagnoses Multiple myeloma not having achieved remission (HCC) Procedures PA DARATUMUMAB, HYALURONIDASE PA INJ, CYCLOPHOSPHAMIDE, NOS Morgan Vásquez MD [address] [place] [address] Anc Hem/Onc Amena You DEPT CLOSED - 03/26/23 200 [facility] [place] [address] Referral ID Status Reason Start Date Expiration Date V isits Requested Visits Authorized [id number] Authorized 05/28/2022 05/12/2099 99 99 Encounter Details Date Type Department Care Team (Latest Contact Info) Description 10/31/2023 8:45 AM EDT Hem/Onc Treatment Hematology/Oncolog y Treatment, [place] [address] [place] [address] Kenyatta, Chair 2 Hem Onc Scenery 200 Amena [address]man [place] [address] Multiple myeloma not having achieved remission (HCC)*; Encounter for antineoplastic chemotherapy Allergies No known active allergiesdocumented as of this encounter (statuses as of 11/18/2023) Medications Medication Sig Dispensed Refills Start Date End Date Status THEOPHYLLINE ER 450 MG PO GV54Rtidbiqgfzs:2 tablet at bedtime Take by mouth. Indications: [...] at bedtime. PATIENT INFORMATION: Kris Galvin [address] [place] [address] PT [employer] MEDICAL EQUIPMENT COMPANY: [employer] ORDER: Please start nocturnal oxygen via nasal [...] (electronically signed) Ish Caba MD Pulmonary Medicine, [address] [place] [address] [place] [facility] Medical License Number: [id number] 1 Each 09/21/2022 Active metFORMIN HCl ER [...] mRNA, LNP-s, No Pre serve, 2-Dose Series ([employer]) 01/17/2021,08/05/2020,07/08/2020 COVID-19, LNP-s, No Preserve , Bryant-sucrose, Ages 12+ ([employer]) 09/26/2021 DTaP Dipth/Tet/Acell Pertussis (Infanrix), Peds 02/23/2021,11/11/2020,09/09/2020 [...] AM EDT Laboratory Lab Mobile Phlebotomy MV [address] [facility] [place], [place] [id number] Mvmg, Gml Mobile Home Draw [address] [place] [address] 11/21/2023 8:45 AM EDT Hem/Onc Treatment Hematology/Oncology Treatment, [place] 200 [place] [phone] Kenyatta, Chair 2 Hem Onc Scenery 200 [facility] [address] 11/27/2023 7:05 AM EDT Laboratory Lab Mobile Phlebotomy [facility] [address] [facility] [place] [address] Mvmg, Gml Mobile Home Draw [address] [facility] [place] [address] 11/28/2023 8:30 AM EDT Hem[facility] 200 [place] [phone] Kenyatta, Chair 9 Hem Onc Scenery 200 [facility] [address] 12/04/2023 7:05 AM EDT Laboratory Lab Mobile Phlebotomy [facility] [address] [place] [address] Mvmg, Gml Mobile Home Draw [address] [facility] [place] [address] 12/05/2023 8:45 AM EDT Hem[facility] 200 [place] [phone] Kenyatta, Chair 2 Hem Onc Scenery [address] [facility] [address] 12/11/2023 7:00 AM EDT Laboratory Lab Mobile Phlebotomy [facility] [address] [place] [address] Mvmg, Gml Mobile Home Draw [address] [facility] [place] [address] 12/12/2023 11:15 AM EDT Office Visit Hematology/Oncology [facility] 200 [facility] [address] Morgan Vásquez MD [address] [facility] [address] 12/12/2023 11:45 AM EDT Hem/Onc Treatment Hematology/Oncology Treatment, [place] [address] [place] [address] 12/18/2023 7:05 AM EDT Laboratory Lab Mobile Phlebotomy [facility] [address] [employer] [facility] [place] [address] Mvmg, Gml Mobile Home Draw 2520 [place] [address] 12/25/2023 7:05 AM EDT Laboratory Lab Mobile Phlebotomy [facility] [address] [place] [address] Mvmg, Gml Mobile Home Draw [address] [place] [address] 01/01/2024 7:05 AM EDT Laboratory Lab Mobile Phlebotomy [facility] [address] [place] [address] Mvmg, Gml Mobile Home Draw [address] [place] [address] 01/08/2024 7:00 AM EDT Laboratory Lab Mobile Phlebotomy [facility] [address] [place] [address] Mvmg, Gml Mobile Home Draw [address] [place] [address] 01/15/2024 7:05 AM EDT Laboratory Lab Mobile Phlebotomy [facility] [address] [place] [address] Mvmg, Gml Mobile Home Draw [address] [facility] [place] [address] 01/22/2024 7:05 AM EDT Laboratory Lab Mobile Phlebotomy [facility] [address] [place] [address] Mvmg, Gml Mobile Home Draw [address] [place] [address] 01/29/2024 7:05 AM EDT Laboratory Lab Mobile Phlebotomy [facility] [address] [facility] [place], [place] [address] Mvmg, Gml Mobile Home Draw [address] [facility] [place], [place] [address] 02/05/2024 7:00 AM EDT Laboratory Lab Mobile Phlebotomy [facility] [address] [facility] [place], [place] [address] Mvmg, Gml Mobile Home Draw [address] [facility] [place], [place] [address] 02/05/2024 8:40 AM EDT Office Visit Neurology Amena You [place] 200 [facility] [place], [place] [address] Octavia Goins PA-C 200 [facility] [place], [place] [address] 02/07/2024 8:00 AM EDT Office Visit Rheumatology [address] [place] [phone] Darnell Higgins MD 25[address] [facility] [place] [address] 02/12/2024 7:05 AM EDT Laboratory Lab Mobile Phlebotomy [facility] [address] [place], [place] [address] Mvmg, Gml Mobile Home Draw 25[address] [facility] [place], [place] [address] 02/19/2024 7:05 AM EDT Laboratory Lab Mobile Phlebotomy [facility] [address] [place], [place] [address] Mvmg, Gml Mobile Home Draw [address] [place] [address] 02/26/2024 7:05 AM EDT Laboratory Lab Mobile Phlebotomy [facility] [address] [place], [place] [address] Mvmg, Gml Mobile Home Draw [address] [facility] [place], [place] [address] 03/04/2024 7:00 AM EDT Laboratory Lab Mobile Phlebotomy [facility] [address]20 [place] [address] Mvmg, Gml Mobile Home Draw [address]20 [place] [address] 03/11/2024 7:05 AM EDT Laboratory Lab Mobile Phlebotomy [facility] [address] [place] [address] Mvmg, Gml Mobile Home Draw [address] [place] [address] 03/18/2024 7:05 AM EST Laboratory Lab Mobile Phlebotomy [facility] [address] [place] [address] Mvmg, Gml Mobile Home Draw [address] [place] [address] 03/25/2024 7:05 AM EST Laboratory Lab Mobile Phlebotomy [facility] [address] [place] [address] Mvmg, Gml Mobile Home Draw [address] [place] [address] 04/01/2024 7:00 AM EST Laboratory Lab Mobile Phlebotomy [facility] [address] [place] [address] Mvmg, Gml Mobile Home Draw [address] [place] [address] 04/08/2024 7:05 AM EST Laboratory Lab Mobile Phlebotomy [facility] [address] [place] [address] Mvmg, Gml Mobile Home Draw [address] [place] [address] 04/15/2024 7:05 AM EST Laboratory Lab Mobile Phlebotomy [facility] [address] [place] [address] Mvmg, Gml Mobile Home Draw [address] [place] [address] 04/22/2024 7:05 AM EST Laboratory Lab Mobile Phlebotomy [facility] [address] [place] [address] Mvmg, Gml Mobile Home Draw [address] [facility] [place] [address] 04/29/2024 7:05 AM EST Laboratory Lab Mobile Phlebotomy [facility] [address] [facility] [place] [address] Mvmg, Gml Mobile Home Draw [address] [facility] [place] [address] 05/05/2024 7:05 AM EST Laboratory Lab Mobile Phlebotomy [facility] [address] [facility] [place] [address] Mvmg, Gml Mobile Home Draw [address] [facility] [place] [address] 09/02/2024 8:20 AM EDT Office Visit Pulmonary Medicine, [facility] 132 [facility] [place] [address] Ish Caba MD [address] [facility] [place] [address] 05/03/2025 7:40 AM EST Office Visit Dermatology [address] [place] [address] Albina Romo PA-C [address] [place] [address] [place] [address] Health Maintenance Due Date Last Done Comments [...] this encounter Medical Devices Implanted Type Area Inspector Subassemblies Device Identifier Shelf Expiration Date Model / Serial / Lot Mesh Plug Xlarge [id number] - [id number] Implanted:Qty: 1 on 12/09/2020 by John Zaragoza MD at OR [facility] Left: Pamin CR BARD : DAVOL 05/09/2023 [id number] / / [id number] documented as of this encounter Visit Diagnoses [...] Power of Attor coco? No Care Teams Psychiatric Arnp Relationship Specialty Start Date End Date Michael Collins MD [address] [place] [address] [place] [address] PCP - General Internal Medicine 03/01/14 documented as of this encounter
--- OUTSIDE RECORDS SUMMARY | 2024-03-26 16:32 | External Medical Summary | Summary of Care ---
Author Name Unknown Organization [facility] Address [address] [facility] [place] [address] Phone [phone] Care Team Providers Care Vocational Coordinator Name Role Phone Michael Collins MD Primary Care Provi zehra Reason for Visit * Reason Comments Treatment * Episode Based Medications (Routine) - Authorized Specialty Diagnoses / Procedures Referred By Contac t Referred To Contact Diagnoses Multiple myeloma not having achieved remission (HCC) Procedures [place] DARATUMUMAB, HYALURONIDASE [place] INJ, CYCLOPHOSPHAMIDE, NOS Morgan Vásquez MD [address] [place] [address] Anc Hem/Onc Amena You DEPT CLOSED - 03/26/23 [address] [facility] [place] [address] Referral ID Status Reason Start Date Expiration Date V isits Requested Visits Authorized [id number] Authorized 05/28/2022 05/12/2099 99 99 Encounter Details Date Type Department Care Team (Latest Contact Info) Description 11/07/2023 8:45 AM EDT Hem/Onc Treatment Hematology/Oncology Treatment, [place] [address] [place] [address] Kenyatta, Chair 9 Hem Onc [facility] [address] [place] [address] Multiple myeloma not having achieved remission (HCC)* Allergies No known active allergiesdocumented as of this encounter (statuses as of 11/16/2023) Medications Medication Sig Dispensed Refills Start Date End Date Status THEOPHYLLINE ER 450 MG PO UB45Thkponyttkg:2 tablet at bedtime Take by mouth. Indications: [...] nostril at bedtime. PATIENT INFORMATION: Kris Galvin [address] [place] [address] Anafore [employer] EQUIPMENT [employer]: [employer] ORDER: Please start nocturnal oxygen via nasal [...] (electronically signed) Ish Caba MD Pulmonary Medicine, [facility] [address] [facility] [place] [address] [place] [facility] Medical License Number: [id number] 1 Each 09/21/2022 Active metFORMIN HCl ER [...] as of this encounter (statuses as of 11/16/2023) Active Problems Problem Noted Date Diagnosed Date [...] as of this encounter (statuses as of 11/16/2023) Resolved Problems Problem Noted Date Diagnosed Date Resolved Date Asthma in remission 08/28/2022 08/29/19 Asthma, mild persistent 08/28/202208/11 Asthma, severe persistent 08/28/2022 Stem cell transplant candidate 08/17/2019 09/02/2019 documented as of this encounter (statuses as of 11/16/2023) Immunizations Name Administration Dates Next Due COVID-19 mRNA, LNP-s, No Pre serve, 2-Dose Series ([employer]) 01/17/2021,08/05/2020,07/08/2020 COVID-19, LNP-s, No Preserve , Bryant-sucrose, Ages 12+ ([employer]) 09/26/2021 DTaP Dipth/Tet/Acell Pertussis ([employer]), Peds 02/23/2021,11/11/2020,09/09/2020 [...] EDT Laboratory Lab Mobile Phlebotomy [facility] [address] [place] [address] Mvmg, Gml Mobile Home Draw [address] [place] [address] 11/21/2023 8:45 AM EDT Hem/Onc Treatment [facility] [place] [facility] [phone] Kenyatta, Chair [address] [place] [address] 11/27/2023 7:05 AM EDT Laboratory Lab Mobile Phlebotomy [facility] [address] [place] [address] Mvmg, Gml Mobile Home Draw [address] [place] [address] 11/28/2023 8:30 AM EDT Hem/Onc Treatment Hematology/Oncology Treatment, [place] 200 [place] [address] Park, Chair 9 Hem Onc Scenery 200 [facility] [place], [place] [address] 12/04/2023 7:05 AM EDT Laboratory Lab Mobile Phlebotomy [facility] [address] [place] [address] Mvmg, Gml Mobile Home Draw [address] [place] [address] 12/05/2023 8:45 AM EDT [facility] 200 [place] [address] Kenyatta, Chair 2 Hem Onc [address] [place], [place] [address] 12/11/2023 7:00 AM EDT Laboratory Lab Mobile Phlebotomy [facility] [address] [place], [place] [address] Mvmg, Gml Mobile Home Draw [address] [place], [place] [address] 12/12/2023 11:15 AM EDT Office Visit Hematology/Oncology [facility] 200 [facility], [place] [phone] Morgan Vásquez MD 200 [facility], [place] [address] 12/12/2023 11:45 AM EDT Hem[facility] 200 [place] [address] 12/18/2023 7:05 AM EDT Laboratory Lab Mobile Phlebotomy [facility] [address] [place], [place] [address] Mvmg, Gml Mobile Home Draw [address] [place], [place] [address] 12/25/2023 7:05 AM EDT Laboratory Lab Mobile Phlebotomy [facility] [address] [place] [address] Mvmg, Gml Mobile Home Draw [address] [place] [address] 01/01/2024 7:05 AM EDT Laboratory Lab Mobile Phlebotomy [facility] [address] [place], [place] [address] Mvmg, Gml Mobile Home Draw [address] [place] [address] 01/08/2024 7:00 AM EDT Laboratory Lab Mobile Phlebotomy [facility] [address] [place] [address] Mvmg, Gml Mobile Home Draw [address] [facility] [place] [address] 01/15/2024 7:05 AM EDT Laboratory Lab Mobile Phlebotomy [facility] [address] [place] [address] Mvmg, Gml Mobile Home Draw [address] [facility] [place] [address] 01/22/2024 7:05 AM EDT Laboratory Lab Mobile Phlebotomy [facility] [address] [place] [address] Mvmg, Gml Mobile Home Draw [address] [facility] [place] [address] 01/29/2024 7:05 AM EDT Laboratory Lab Mobile Phlebotomy [facility] [address] [facility] [place] [address] Mvmg, Gml Mobile Home Draw [address] [facility] [place] [address] 02/05/2024 7:00 AM EDT Laboratory Lab Mobile Phlebotomy [facility] [address] [facility] [place] [address] Mvmg, Gml Mobile Home Draw [address] [facility] [place] [address] 02/05/2024 8:40 AM EDT Office Visit Neurology [facility] 200 [facility] [place], [place] [address] Octavia Goins PA-C 200 [facility] [place] [address] 02/07/2024 8:00 AM EDT Office Visit Rheumatology [address] [place] [phone] Darnell Higgins MD [address] [facility] [place] [address] 02/12/2024 7:05 AM EDT Laboratory Lab Mobile Phlebotomy [facility] [address] [place] [address] Mvmg, Gml Mobile Home Draw [address] [place] [address] 02/19/2024 7:05 AM EDT Laboratory Lab Mobile Phlebotomy [facility] [address] [place] [address] Mvmg, Gml Mobile Home Draw [address] [place] [address] 02/26/2024 7:05 AM EDT Laboratory Lab Mobile Phlebotomy [facility] [address] [place] [address] Mvmg, Gml Mobile Home Draw [address] [place] [address] 03/04/2024 7:00 AM EDT Laboratory Lab Mobile Phlebotomy [facility] [address] [place] [address] Mvmg, Gml Mobile Home Draw [address] [place] [address] 03/11/2024 7:05 AM EDT Laboratory Lab Mobile Phlebotomy [facility] [address] [place] [address] Mvmg, Gml Mobile Home Draw [address] [place] [address] 03/18/2024 7:05 AM EST Laboratory Lab Mobile Phlebotomy [facility] [address] [place] [address] Mvmg, Gml Mobile Home Draw [address] [place] [address] 03/25/2024 7:05 AM EST Laboratory Lab Mobile Phlebotomy [facility] [address] [place] [address] Mvmg, Gml Mobile Home Draw [address] [place] [address] 04/01/2024 7:00 AM EST Laboratory Lab Mobile Phlebotomy [facility] [address] [place] [address] Mvmg, Gml Mobile Home Draw [address] [place] [address] 04/08/2024 7:05 AM EST Laboratory Lab Mobile Phlebotomy [facility] [address] [place] [address] Mvmg, Gml Mobile Home Draw [address] [place] [address] 04/15/2024 7:05 AM EST Laboratory Lab Mobile Phlebotomy [facility] [address] [address] Mvmg, Gml Mobile Home Draw [address] [address] 04/22/2024 7:05 AM EST Laboratory Lab Mobile Phlebotomy [facility] [address] [place] [address] Mvmg, Gml Mobile Home Draw [address] [place] [address] 04/29/2024 7:05 AM EST Laboratory Lab Mobile Phlebotomy [facility] [address] [place] [address] Mvmg, Gml Mobile Home Draw [address] [place] [address] 05/05/2024 7:05 AM EST Laboratory Lab Mobile Phlebotomy [facility] [address] [place] [address] Mvmg, Gml Mobile Home Draw [address] [place] [address] 09/02/2024 8:20 AM EDT Office Visit Pulmonary Medicine, [facility] [address] [place] [address] Ish Caba MD [address] [place] [address] 05/03/2025 7:40 AM EST Office Visit Dermatology [address] [place] [address] Albina Romo PA-C [address] [place] [address] [place] [address] Health Maintenance Due Date Last Done Comments [...] this encounter Medical Devices Implanted Type Area Campground Manager Device Identifier Shelf Expiration Date Model / Serial / Lot Mesh Plug Xlarge [id number] - [id number] Implanted:Qty: 1 on 12/09/2020 by John Zaragoza MD at OR [facility] Left: Demond RIVAS BARD : LUCINDA 05/09/2023 [id number] / / [id number] documented as of this encounter Visit Diagnoses [...] Power of Attor coco? No Care Teams Vocational Coordinator Relationship Specialty Start Date End Date Michael Collins MD [address] [place] [address] [place] [address] PCP - General Internal Medicine 03/01/14 documented as of this encounter
--- OUTSIDE RECORDS SUMMARY | 2024-03-26 16:32 | External Medical Summary ---
Author Name Unknown Address Unknown Organization K01:[facility] [place] [address] [facility] [place] [address] Laboratory Report Ordering Provider Test Date Status KALPESH SERRANO 11/13/2023 07:55:00 Final Observation Date Value Abnormality Reference (Units ) Status SYNC LEUKOCYTES IN BLOOD BY AUTOMATED COUNT 11/13/2023 07:55:00 4.43 4.00-10.80 (K/uL) Final Segs 11/13/2023 07:55:00 61.3 40.0-75.0 (%) Final Lymphs % 11/13/2023 07:55:00 24.2 18.0-42.0 (%) Final Monos 11/13/2023 07:55:00 12.0 Above high normal 1.0-11.0 (%) Final Eosinophils 11/13/2023 07:55:00 1.8 0.0-6.0 (%) Final Basos 11/13/2023 07:55:00 0.5 0.0-2.0 (%) Final Immature Granulocyte, Percent 11/13/2023 07:55:00 0.2 0.0-2.0 (%) Final Absolute Segs 11/13/2023 07:55:00 2.72 1.80-7.70 (K/uL) Final Lymphs, absolute 11/13/2023 07:55:00 1.07 1.00-4.80 (K/ul) Final Monos, Abs 11/13/2023 07:55:00 0.53 0.00-1.10 (K/uL) Final Eos, Abs 11/13/2023 07:55:00 0.08 0.00-0.70 (K/uL) Final Basos, Abs 11/13/2023 07:55:00 0.02 0.00-0.20 (K/uL) Final Immature Granulocytes, Number 11/13/2023 07:55:00 0.01 0.00-0.20 (K/uL) Final Performing Location [facility] [place] [address] [facility] [address]
--- OUTSIDE RECORDS SUMMARY | 2024-03-26 16:32 | External Medical Summary | Summary of Care ---
Author Name Unknown Organization [facility] Address [address] [facility] [place] [address] Phone [phone] Care Team Providers Care Public Health Representative Name Role Phone Michael Collins MD Primary Care Provi zehra Reason for Visit * Reason Comments Chemotherapy Cytoxan. * Episode Based Medications (Routine) - Authorized Specialty Diagnoses / Procedures Referred By Contac t Referred To Contact Diagnoses Multiple myeloma not having achieved remission (HCC) Procedures [place] DARATUMUMAB, HYALURONIDASE SD INJ, CYCLOPHOSPHAMIDE, NOS Morgan Vásquez MD [address] [place] [address] Anc Hem/Onc Amena You DEPT CLOSED - 03/26/23 200 [facility] [place] [address] Referral ID Status Reason Start Date Expiration Date V isits Requested Visits Authorized [id number] Authorized 05/28/2022 05/12/2099 99 99 Encounter Details Date Type Department Care Team (Latest Contact Info) Description 10/31/2023 8:45 AM EDT Hem/Onc Treatment Hematology/Oncolog y Treatment, [place] [address] [place] [address] Kenyatta, Chair 2 Hem Onc Scenery 200 Amena Osman [place] [address] Multiple myeloma not having achieved remission (HCC)*; Encounter for antineoplastic chemotherapy Allergies No known active allergiesdocumented as of this encounter (statuses as of 11/18/2023) Medications Medication Sig Dispensed Refills Start Date End Date Status THEOPHYLLINE ER 450 MG PO XN63Zwcycbuatiy:2 tablet at bedtime Take by mouth. Indications: [...] at bedtime. PATIENT INFORMATION: Kris Galvin [address] [place] [address] [employer]: [employer] ORDER: Please start nocturnal oxygen via nasal [...] signed) Ish Caba MD Pulmonary Medicine, [address] [place] [address] [place] [facility] Medical License Number: [id number] 1 Each 09/21/2022 Active metFORMIN HCl ER [...] LNP-s, No Pre serve, 2-Dose Series ([employer]) 01/17/2021,08/05/2020,07/08/2020 COVID-19, LNP-s, No Preserve , Bryant-sucrose, Ages 12+ ([employer]) 09/26/2021 DTaP Dipth/Tet/Acell Pertussis ([employer]), Peds 02/23/2021,11/11/2020,09/09/2020 [...] AM EDT Laboratory Lab Mobile Phlebotomy MV [address] [facility] [place], [place] [address] Mvmg, Gml Mobile Home Draw [address] [place] [address] 11/21/2023 8:45 AM EDT Hem/Onc Treatment Hematology/Oncology Treatment, [place] 200 [place] [phone] Kenyatta, Chair 2 Hem Onc Scenery 200 [facility] [place] [address] 11/27/2023 7:05 AM EDT Laboratory Lab Mobile Phlebotomy [facility] [address] [place] [address] Mvmg, Gml Mobile Home Draw [address] [place] [address] 11/28/2023 8:30 AM EDT [facility] 200 [place] [phone] Kenyatta, Chair 9 Hem Onc Scenery 200 [facility] [place] [address] 12/04/2023 7:05 AM EDT Laboratory Lab Mobile Phlebotomy [facility] [address] [place] [address] Mvmg, Gml Mobile Home Draw [address] [place] [address] 12/05/2023 8:45 AM EDT [facility] 200 [place] [address] Kenyatta, Chair 2 Hem Onc Scenery 200 [facility] [place] [address] 12/11/2023 7:00 AM EDT Laboratory Lab Mobile Phlebotomy [facility] [address] [place] [address] Mvmg, Gml Mobile Home Draw [address] [place] [address] 12/12/2023 11:15 AM EDT Office Visit Hematology/Oncology [facility] 200 [facility] [place] [phone] Morgan Vásquez MD 200 [facility] [place] [address] 12/12/2023 11:45 AM EDT Hem/Onc Treatment Hematology/Oncology Treatment, [place] [address] [place] [address] 12/18/2023 7:05 AM EDT Laboratory Lab Mobile Phlebotomy [facility] [address] [place] [address] Mvmg, Gml Mobile Home Draw 2520 [facility] [address] 12/25/2023 7:05 AM EDT Laboratory Lab Mobile Phlebotomy [facility] [address] [place] [address] Mvmg, Gml Mobile Home Draw [address] [facility] [address] 01/01/2024 7:05 AM EDT Laboratory Lab Mobile Phlebotomy M[facility] [address] [place] [address] Mvmg, Gml Mobile Home Draw [address] [facility] [address] 01/08/2024 7:00 AM EDT Laboratory Lab Mobile Phlebotomy [facility] [address] [place] [address] Mvmg, Gml Mobile Home Draw [address] [place] [address] 01/15/2024 7:05 AM EDT Laboratory Lab Mobile Phlebotomy [facility] [address] [place] [address] Mvmg, Gml Mobile Home Draw [address] [place] [address] 01/22/2024 7:05 AM EDT Laboratory Lab Mobile Phlebotomy [facility] [address] [place] [address] Mvmg, Gml Mobile Home Draw [address] [facility] [address] 01/29/2024 7:05 AM EDT Laboratory Lab Mobile Phlebotomy [facility] [address] [facility] [place], [place] [address] Mvmg, Gml Mobile Home Draw [address] [facility] [place], [place] [address] 02/05/2024 7:00 AM EDT Laboratory Lab Mobile Phlebotomy [facility] [address] [facility] [place], [place] [address] Mvmg, Gml Mobile Home Draw [address] [facility] [place], [place] [address] 02/05/2024 8:40 AM EDT Office Visit Neurology Amena You [place] 200 [facility] [place], [place] [address] Octavia Goins PA-C 200 [facility] [place], [place] [address] 02/07/2024 8:00 AM EDT Office Visit Rheumatology [address] [place] [phone] Darnell Higgins MD [address] [place] [address] 02/12/2024 7:05 AM EDT Laboratory Lab Mobile Phlebotomy [facility] [address] [place], [place] [address] Mvmg, Gml Mobile Home Draw [address] [facility] [place], [place] [address] 02/19/2024 7:05 AM EDT Laboratory Lab Mobile Phlebotomy M[facility] [address] [place], [place] [address] Mvmg, Gml Mobile Home Draw [address] [facility] [place] [address] 02/26/2024 7:05 AM EDT Laboratory Lab Mobile Phlebotomy M[facility] [address] [place], [place] [address] Mvmg, Gml Mobile Home Draw [address] [facility] [place], [place] [address] 03/04/2024 7:00 AM EDT Laboratory Lab Mobile Phlebotomy M[facility] [address] [facility] [place] [address] Mvmg, Gml Mobile Home Draw [address] [facility] [place] [address] 03/11/2024 7:05 AM EDT Laboratory Lab Mobile Phlebotomy M[facility] [address] [facility] [place] [address] Mvmg, Gml Mobile Home Draw [address] [facility] [place] [address] 03/18/2024 7:05 AM EST Laboratory Lab Mobile Phlebotomy M[facility] [address] [facility] [place] [address] Mvmg, Gml Mobile Home Draw [address] [facility] [place] [address] 03/25/2024 7:05 AM EST Laboratory Lab Mobile Phlebotomy M[facility] [address] [facility] [place] [address] Mvmg, Gml Mobile Home Draw [address] [facility] [place] [address] 04/01/2024 7:00 AM EST Laboratory Lab Mobile Phlebotomy M[facility] [address] [facility] [place] [address] Mvmg, Gml Mobile Home Draw [address] [facility] [place] [address] 04/08/2024 7:05 AM EST Laboratory Lab Mobile Phlebotomy M[facility] [address] [facility] [place] [address] Mvmg, Gml Mobile Home Draw [address] [facility] [place] [address] 04/15/2024 7:05 AM EST Laboratory Lab Mobile Phlebotomy M[facility] [address] [facility] [place] [address] Mvmg, Gml Mobile Home Draw [address] [facility] [place] [address] 04/22/2024 7:05 AM EST Laboratory Lab Mobile Phlebotomy M[facility] [address] [facility] [place] [address] Mvmg, Gml Mobile Home Draw [address] [place] [address] 04/29/2024 7:05 AM EST Laboratory Lab Mobile Phlebotomy M[facility] [address] [place] [address] Mvmg, Gml Mobile Home Draw [address] [place] [address] 05/05/2024 7:05 AM EST Laboratory Lab Mobile Phlebotomy M[facility] [address] [place] [address] Mvmg, Gml Mobile Home Draw [address] [place] [address] 09/02/2024 8:20 AM EDT Office Visit Pulmonary Medicine, [facility] 132 [facility] [place] [address] Ish Caba MD [address] [facility] [place] [address] 05/03/2025 7:40 AM EST Office Visit Dermatology [address] [place] [address] Albina Romo PA-C [address] [place] [address] [place] [address] Health Maintenance Due Date Last Done Comments [...] encounter Medical Devices Implanted Type Area Sales And Leasing Agent Device Identifier Shelf Expiration Date Model / Serial / Lot Mesh Plug Xlarge [id number] - [id number] Implanted:Qty: 1 on 12/09/2020 by John Zaragoza MD at OR [facility] Left: Pamin CR BARD : DAVOL 05/09/2023 [id number] / / [id number] documented as of this encounter Visit Diagnoses [...] Power of Attor coco? No Care Teams Public Health Representative Relationship Specialty Start Date End Date Michael Collins MD [address] [place] [address] [place] [address] PCP - General Internal Medicine 03/01/14 documented as of this encounter
--- OUTSIDE RECORDS SUMMARY | 2024-03-26 16:32 | External Medical Summary | Summary of Care ---
Author Name Unknown Organization [facility] Address [address] [facility] [place] [address] Phone [phone] Care Team Providers Care Corncob Pipes Assembler Name Role Phone Michael Collins MD Primary Care Provi zehra Reason for Visit * Reason Comments Chemotherapy Cytoxan. * Episode Based Medications (Routine) - Authorized Specialty Diagnoses / Procedures Referred By Contac t Referred To Contact Diagnoses Multiple myeloma not having achieved remission (HCC) Procedures [place] DARATUMUMAB, HYALURONIDASE MA INJ, CYCLOPHOSPHAMIDE, NOS Morgan Vásquez MD [address] [place] [address] Anc Hem/Onc Amena You DEPT CLOSED - 03/26/23 200 [facility] [place] [address] Referral ID Status Reason Start Date Expiration Date V isits Requested Visits Authorized [id number] Authorized 05/28/2022 05/12/2099 99 99 Encounter Details Date Type Department Care Team (Latest Contact Info) Description 10/31/2023 8:45 AM EDT Hem/Onc Treatment Hematology/Oncolog y Treatment, [place] [address] [place] [address] Kenyatta, Chair 2 Hem Onc Scenery [address] Am[address] [place] [address] Multiple myeloma not having achieved remission (HCC)*; Encounter for antineoplastic chemotherapy Allergies No known active allergiesdocumented as of this encounter (statuses as of 11/18/2023) Medications Medication Sig Dispensed Refills Start Date End Date Status THEOPHYLLINE ER 450 MG PO [id number]:2 tablet at bedtime Take by mouth. Indications: [...] CAPS Take by mouth. Active Multiple Vitamins-Minerals ([facility]MMUN[facility] SUPPORT) CHEW [...] at bedtime. PATIENT INFORMATION: Kris Galvin [address] [place] [address] [employer]: [employer] ORDER: Please start nocturnal oxygen via nasal [...] signed) Ish Caba MD Pulmonary Medicine, [address] [place] [address] [place] [facility] Medical License Number: [id number] 1 Each 09/21/2022 Active metFORMIN HCl ER [...] mRNA, LNP-s, No Pre serve, 2-Dose Series ([employer]) 01/17/2021,08/05/2020,07/08/2020 COVID-19, LNP-s, No Preserve , Byrant-sucrose, Ages 12+ ([employer]) 09/26/2021 DTaP Dipth/Tet/Acell Pertussis ([employer]), Peds 02/23/2021,11/11/2020,09/09/2020 [...] AM EDT Laboratory Lab Mobile Phlebotomy [facility] [address] [facility] [place], [place] [id number] Mvmg, Gml Mobile Home Draw [address] [place] [address] 11/21/2023 8:45 AM EDT Hem/Onc Treatment Hematology/Oncology Treatment, [place] [address] [place] [phone] Kenyatta, Chair 2 Hem Onc Scenery 200 [place] [address] 11/27/2023 7:05 AM EDT Laboratory Lab Mobile Phlebotomy MVMG [address] [place] [address] Mvmg, Gml Mobile Home Draw [address] [place] [address] 11/28/2023 8:30 AM EDT [facility] [address] [place] [phone] Kenyatta, Chair 9 Hem Onc Scenery 200 [place] [address] 12/04/2023 7:05 AM EDT Laboratory Lab Mobile Phlebotomy MVMG [address] [place] [address] Mvmg, Gml Mobile Home Draw [address] [place] [address] 12/05/2023 8:45 AM EDT [facility] [address] [place] [phone] Kenyatta, Chair 2 Hem Onc Scenery 200 [place] [address] 12/11/2023 7:00 AM EDT Laboratory Lab Mobile Phlebotomy MVMG [address] [place] [address] Mvmg, Gml Mobile Home Draw [address] [place] [address] 12/12/2023 11:15 AM EDT Office Visit Hematology/Oncology [facility] 200 [place] [phone] Morgan Vásquez MD 200 [place] [address] 12/12/2023 11:45 AM EDT Hem/Onc Treatment Hematology/Oncology Treatment, [place] [address] [place] [address] 12/18/2023 7:05 AM EDT Laboratory Lab Mobile Phlebotomy MVMG [address] [facility] [place] [address] Mvmg, Gml Mobile Home Draw [address] [place] [address] 12/25/2023 7:05 AM EDT Laboratory Lab Mobile Phlebotomy MVMG [address] [place] [address] Mvmg, Gml Mobile Home Draw [address] [place] [address] 01/01/2024 7:05 AM EDT Laboratory Lab Mobile Phlebotomy MVMG [address] [place] [address] Mvmg, Gml Mobile Home Draw [address] [place] [address] 01/08/2024 7:00 AM EDT Laboratory Lab Mobile Phlebotomy MVMG [address] [place] [address] Mvmg, Gml Mobile Home Draw [address] [place] [address] 01/15/2024 7:05 AM EDT Laboratory Lab Mobile Phlebotomy MVMG [address] [place] [address] Mvmg, Gml Mobile Home Draw [address] [place] [address] 01/22/2024 7:05 AM EDT Laboratory Lab Mobile Phlebotomy MVMG [address] [place] [address] Mvmg, Gml Mobile Home Draw [address] [place] [address] 01/29/2024 7:05 AM EDT Laboratory Lab Mobile Phlebotomy MVMG [address] [facility] [place], [place] [address] Mvmg, Gml Mobile Home Draw [address] [facility] [place], [place] [address] 02/05/2024 7:00 AM EDT Laboratory Lab Mobile Phlebotomy MVMG [address] [facility] [place], [place] [address] Mvmg, Gml Mobile Home Draw [address] [facility] [place], [place] [address] 02/05/2024 8:40 AM EDT Office Visit Neurology Amena You [place] 200 [facility] [place], [place] [address] Octavia Goins PA-C 200 [facility] [place], [place] [address] 02/07/2024 8:00 AM EDT Office Visit Rheumatology [address] [place] [phone] Darnell Higgins MD [address] [place] [address] 02/12/2024 7:05 AM EDT Laboratory Lab Mobile Phlebotomy MVMG [address] [place], [place] [address] Mvmg, Gml Mobile Home Draw [address] [facility] [place], [place] [address] 02/19/2024 7:05 AM EDT Laboratory Lab Mobile Phlebotomy MVMG [address] [facility] [place], [place] [address] Mvmg, Gml Mobile Home Draw [address] [place] [address] 02/26/2024 7:05 AM EDT Laboratory Lab Mobile Phlebotomy MVMG [address] [place], [place] [address] Mvmg, Gml Mobile Home Draw [address] [facility] [place], [place] [address] 03/04/2024 7:00 AM EDT Laboratory Lab Mobile Phlebotomy MVMG [address] [place] [address] Mvmg, Gml Mobile Home Draw [address] [place] [address] 03/11/2024 7:05 AM EDT Laboratory Lab Mobile Phlebotomy MVMG [address] [place] [address] Mvmg, Gml Mobile Home Draw [address] [place] [address] 03/18/2024 7:05 AM EST Laboratory Lab Mobile Phlebotomy MVMG [address] [place] [address] Mvmg, Gml Mobile Home Draw [address] [place] [address] 03/25/2024 7:05 AM EST Laboratory Lab Mobile Phlebotomy MVMG [address] [place] [address] Mvmg, Gml Mobile Home Draw [address] [place] [address] 04/01/2024 7:00 AM EST Laboratory Lab Mobile Phlebotomy MVMG [address] [place] [address] Mvmg, Gml Mobile Home Draw [address] [place] [address] 04/08/2024 7:05 AM EST Laboratory Lab Mobile Phlebotomy MVMG [address] [place] [address] Mvmg, Gml Mobile Home Draw [address] [place] [address] 04/15/2024 7:05 AM EST Laboratory Lab Mobile Phlebotomy MVMG [address] [place] [address] Mvmg, Gml Mobile Home Draw [address] [place] [address] 04/22/2024 7:05 AM EST Laboratory Lab Mobile Phlebotomy MVMG [address] [place] [address] Mvmg, Gml Mobile Home Draw [address] [place] [address] 04/29/2024 7:05 AM EST Laboratory Lab Mobile Phlebotomy MVMG [address] [place] [address] Mvmg, Gml Mobile Home Draw [address] [place] [address] 05/05/2024 7:05 AM EST Laboratory Lab Mobile Phlebotomy MVMG [address] [place] [address] Mvmg, Gml Mobile Home Draw [address] [place] [address] 09/02/2024 8:20 AM EDT Office Visit Pulmonary Medicine, [facility] [address] [facility] [place] [address] Ish Caab MD [address] [facility] [place] [address] 05/03/2025 7:40 AM EST Office Visit Dermatology [address] [place] [address] Albina Romo PA-C [address] [place] [address] [place] [address] Health Maintenance Due Date Last Done Comments [...] this encounter Medical Devices Implanted Type Area Patient Safety Attendant Device Identifier Shelf Expiration Date Model / Serial / Lot Mesh Plug Xlarge [id number] - [id number] Implanted:Qty: 1 on 12/09/2020 by John Zaragoza MD at OR [facility] Left: Pamin CR BARD : DAVOL 05/09/2023 [id number] / / [id number] documented as of this encounter Visit Diagnoses [...] Power of Attor coco? No Care Teams Corncob Pipes Assembler Relationship Specialty Start Date End Date Michael Collins MD [address] [place] [address] [place] [address] PCP - General Internal Medicine 03/01/14 documented as of this encounter
--- OUTSIDE RECORDS SUMMARY | 2024-03-26 16:32 | External Medical Summary | Summary of Care ---
Author Name Unknown Organization [facility] Address [address] [place] [address] Phone [phone] Care Team Providers Care Embedded Software Developer Name Role Phone Michael Collins MD Primary Care Provi zehra Reason for Visit * Reason Comments Chemotherapy Cytoxan/Darzalex Fas pro * Episode Based Medications (Routine) - Authorized Specialty Diagnoses / Procedures Referred By Contac t Referred To Contact Diagnoses Multiple myeloma not having achieved remission (HCC) Procedures [place] DARATUMUMAB, HYALURONIDASE [place] INJ, CYCLOPHOSPHAMIDE, NOS Morgan Vásquez MD [address] [place] [address] Anc Hem/Onc Amena oYu DEPT CLOSED - 03/26/23 200 [facility] [place] [address] Referral ID Status Reason Start Date Expiration Date V isits Requested Visits Authorized [id number] Authorized 05/28/2022 05/12/2099 99 99 Encounter Details Date Type Department Care Team (Latest Contact Info) Description 11/15/2023 8:30 AM EDT Hem/Onc Treatment Hematology/Oncolog y Treatment, [place] [address] [place] [address] Kenyatta, Chair 11 Hem Onc Scenery 200 Amena Os[address] [place] [address] Multiple myeloma not having achieved remission (HCC)*; Encounter for antineoplastic chemotherapy Allergies No known active allergiesdocumented as of this encounter (statuses as of 11/15/2023) Medications Medication Sig Dispensed Refills Start Date End Date Status THEOPHYLLINE ER 450 MG PO AC26Aadjktjzqhg:2 tablet at bedtime Take by mouth. Indications: [...] nostril at bedtime. PATIENT INFORMATION: Kris Galvin [address] [place] [address] [employer]: [employer] ORDER: Please start nocturnal oxygen via nasal [...] (electronically signed) Ish Caba MD Pulmonary Medicine, [address] [place] [address] [place] [facility] Medical License Number: [id number] 1 Each 09/21/2022 Active metFORMIN HCl ER [...] as of this encounter (statuses as of 11/15/2023) Active Problems Problem Noted Date Diagnosed Date [...] as of this encounter (statuses as of 11/15/2023) Resolved Problems Problem Noted Date Diagnosed Date Resolved Date Asthma in remission 08/28/2022 08/29/19 Asthma, mild persistent 08/28/202208/11 Asthma, severe persistent 08/28/2022 Stem cell transplant candidate 08/17/2019 09/02/2019 documented as of this encounter (statuses as of 11/15/2023) Immunizations Name Administration Dates Next Due COVID-19 mRNA, LNP-s, No Pre serve, 2-Dose Series ([employer]) 01/17/2021,08/05/2020,07/08/2020 COVID-19, LNP-s, No Preserve , Bryant-sucrose, Ages 12+ ([employer]) 09/26/2021 DTaP Dipth/Tet/Acell Pertussis (Infanrix), Peds 02/23/2021,11/11/2020,09/09/2020 [...] 7:05 AM EDT Laboratory Lab Mobile Phlebotomy [facility] [address] [place] [address] Mvmg, Gml Mobile Home Draw [address] [place] [address] 11/21/2023 8:45 AM EDT Hem/Onc Treatment Hematology/Oncology Treatment, [place] 200 [place] [phone] Park, Chair 2 Hem Onc Scenery 200 [place] [address] 11/27/2023 7:05 AM EDT Laboratory Lab Mobile Phlebotomy MVMG [address] [place] [address] Mvmg, Gml Mobile Home Draw [address] [place] [address] 11/28/2023 8:30 AM EDT Hem/Onc Treatment Hematology/Oncology Treatment, [place] 200 [place] [address] Kenyatta, Chair 9 Hem Onc Scenery 200 [place] [address] 12/04/2023 7:05 AM EDT Laboratory Lab Mobile Phlebotomy MVMG [address] [place] [address] Mvmg, Gml Mobile Home Draw [address] [place] [address] 12/05/2023 8:45 AM EDT Hem/Onc Treatment Hematology/Oncology Treatment, [place] 200 [place] [address] Kenyatta, Chair 2 Hem Onc Scenery 200 [place] [address] 12/11/2023 7:00 AM EDT Laboratory Lab Mobile Phlebotomy MVMG [address] [employer] [place] [address] Mvmg, Gml Mobile Home Draw [address] [employer] [place] [address] 12/12/2023 11:15 AM EDT Office [facility] [place] [address] [place] [phone] oMrgan Vásquez MD [address] [place] [address] 12/12/2023 11:45 AM EDT Hem/Onc Treatment Hematology/Oncology Treatment, [place] 200 [address] [place], [place] [phone] 12/18/2023 7:05 AM EDT Laboratory Lab Mobile Phlebotomy MVMG [address] [place], [place] [address] Mvmg, Gml Mobile Home Draw [address] [place], [place] [address] 12/25/2023 7:05 AM EDT Laboratory Lab Mobile Phlebotomy MVMG [address] [employer] [address] [place] [place], [place] [address] Mvmg, Gml Mobile Home Draw [address] [place] [address] 01/01/2024 7:05 AM EDT Laboratory Lab Mobile Phlebotomy MVMG [address] [place] [address] Mvmg, Gml Mobile Home Draw [address] [place] [address] 01/08/2024 7:00 AM EDT Laboratory Lab Mobile Phlebotomy MVMG [address] [place] [address] Mvmg, Gml Mobile Home Draw [address] [place] [address] 01/15/2024 7:05 AM EDT Laboratory Lab Mobile Phlebotomy MVMG [address] [place] [address] Mvmg, Gml Mobile Home Draw [address] [place] [address] 01/22/2024 7:05 AM EDT Laboratory Lab Mobile Phlebotomy MVMG [address] [place] [address] Mvmg, Gml Mobile Home Draw [address] [place], [place] [address] 01/29/2024 7:05 AM EDT Laboratory Lab Mobile Phlebotomy MVMG [address] [employer] [place], [place] [address] Mvmg, Gml Mobile Home Draw [address] [facility] [address] [place], [place] [address] 02/05/2024 7:00 AM EDT Laboratory Lab Mobile Phlebotomy MVMG [address] [place] [address] Mvmg, Gml Mobile Home Draw [address] [facility] [place], [place] [address] 02/05/2024 8:40 AM EDT [facility] 200 [facility] [place] [address] Octavia Goins PA-C 200 [facility] [place] [address] 02/07/2024 8:00 AM EDT Office Visit Rheumatology [address] [place] [phone] Darnell Higgins MD [facility] [place], [place] [address] 02/12/2024 7:05 AM EDT Laboratory Lab Mobile Phlebotomy MVMG [address] [employer] [facility] [place], [place] [address] Mvmg, Gml Mobile Home Draw [address] [place] [employer] [place], [place] [address] 02/19/2024 7:05 AM EDT Laboratory Lab Mobile Phlebotomy MVMG [address] [place], [place] [address] Mvmg, Gml Mobile Home Draw [address] [facility] [address] [place], [place] [address] 02/26/2024 7:05 AM EDT Laboratory Lab Mobile Phlebotomy MVMG [address] [place], [place] [address] Mvmg, Gml Mobile Home Draw 2520 [place] [address] 03/04/2024 7:00 AM EDT Laboratory Lab Mobile Phlebotomy MVMG [address] [place] [address] Mvmg, Gml Mobile Home Draw [address] [place] [address] 03/11/2024 7:05 AM EDT Laboratory Lab Mobile Phlebotomy MVMG [address] [place] [address] Mvmg, Gml Mobile Home Draw [address] [place] [address] 03/18/2024 7:05 AM EST Laboratory Lab Mobile Phlebotomy MVMG [address] [place] [address] Mvmg, Gml Mobile Home Draw [address] [place] [address] 03/25/2024 7:05 AM EST Laboratory Lab Mobile Phlebotomy MVMG [address] [place] [address] Mvmg, Gml Mobile Home Draw [address] [place] [address] 04/01/2024 7:00 AM EST Laboratory Lab Mobile Phlebotomy MVMG [address] [place] [address] Mvmg, Gml Mobile Home Draw [address] [place] [address] 04/08/2024 7:05 AM EST Laboratory Lab Mobile Phlebotomy MVMG [address] [place] [address] Mvmg, Gml Mobile Home Draw [address] [place] [address] 04/15/2024 7:05 AM EST Laboratory Lab Mobile Phlebotomy MVMG [address] [place] [address] Mvmg, Gml Mobile Home Draw [address] [place] [address] 04/22/2024 7:05 AM EST Laboratory Lab Mobile Phlebotomy MVMG [address] [place] [address] Mvmg, Gml Mobile Home Draw [address] [place], [place] [address] 04/29/2024 7:05 AM EST Laboratory Lab Mobile Phlebotomy MVMG [address] [place], [place] [address] Mvmg, Gml Mobile Home Draw [address] [place], [place] [address] 05/05/2024 7:05 AM EST Laboratory Lab Mobile Phlebotomy MVMG [address] [place], [place] [address] Mvmg, Gml Mobile Home Draw [address] [place], [place] [address] 09/02/2024 8:20 AM EDT Office Visit Pulmonary Medicine, [facility] 132 [facility] [place] [address] Ish Caba MD [address] [place] [address] 05/03/2025 7:40 AM EST Office Visit Dermatology [address] [place] [address] Albina Romo PA-C [address] [place] [address] [place] [address] Pending Results Name Type Priority Associated Diagnoses [...] this encounter Medical Devices Implanted Type Area Laminating Machine Operator Helper Device Identifier Shelf Expiration Date Model / Serial / Lot Mesh Plug Xlarge [id number] - [id number] Implanted:Qty: 1 on 12/09/2020 by John Zaragoza MD at OR [facility] Left: Groin CR BARD : DAVOL 05/09/2023 [id number] / / [id number] documented as of this encounter Results * (ABNORMAL) SERUM FREE LIGHT CHAINS (11/13/2023 7:55 AM EDT) [place] Free Light Chains, Serum 21.50(H) 3.30 - 19.40 mg/L 11/15/2023 10:34 AM EDT LABORATORY [facility] [place] Free Light Chains, Serum 1.36(L) 5.71 - 26.30 mg/L 11/15/2023 10:34 AM EDT LAB[facility]ATORY [facility] [place] Lambda Free Light Chains Ratio 15.81(H) 0.26 - 1.65 11/15/2023 10:34 AM EDT [facility] Blood Venous blood specimen / Unknown Venipuncture / Unknown 11/13/2023 7:55 AM EDT 11/13/2023 11:12 AM EDT Morgan Vásquez MD LAB BLOOD ORDERABLES Performing Organization Address [facility] Co de Phone Number LABORATORY [facility] [address] [place] [address] * (ABNORMAL) IMMUNOGLOBULIN QUANTITATIVE (11/13/2023 7:55 AM EDT) Pathologist [facility] IgG 1,103 700 - 1,600 mg/dL 11/15/2023 10:29 AM EDT LAB[facility]ATORY [facility] IgA 16(L) 70 - 400 mg/dL 11/15/2023 10:29 AM EDT LAB[facility]ATORY [facility] IgM 11(L) 40 - 230 mg/dL 11/15/2023 10:29 AM EDT LAB[facility]ATORY [facility] Blood Venous blood specimen / Unknown Venipuncture / Unknown 11/13/2023 7:55 AM EDT 11/13/2023 11:12 AM EDT Morgan Vásquez MD LAB BLOOD ORDERABLES Performing Organization Address [facility] Co de Phone Number LABORATORY [facility] [address] [place] [address] documented in this encounter Visit Diagnoses Diagnosis [...] ONCE PRN Other, Hypersensitivity Reaction, Starting on Sat11/15/23 at 0851, Until 11/16/23 at 0850, For 24 hours EPINEPHrine 1 MG/ML inj 0.3 mg 0.3 mg, Intramuscular, ONCE PRN Other, Hypersensitivity Reaction or Anaphylaxis, Starting on Sat11/15/23 at 0851, Until 11/16/23 at 0850, For 24 hours hEParin 100 UNIT/ML Lock Flush inj 500 Units 500 Units (5 mL), IV Lock, PRN Other, IV Flush, Starting on Sat11/15/23 at 0851, Until 11/16/23 at 0850, For 24 hours, Do not flush if lock, PICC, or central line not in place; IV infusing or unable to flush. Hydrocortisone Sod Suc (PF) (Solu-Cortef) inj 100 mg 100 mg, IV Push, ONCE PRN Other, Hypersensitivity Reaction, Starting on Sat11/15/23 at 0851, Until 11/16/23 at 0850, For 24 hours meperidine (Demerol) 25 MG/ML inj 25 mg 25 mg, IV Push, ONCE PRN Shivering, Starting on Sat11/15/23 at 0851, Until 11/16/23 at 0850, For 24 hours NSS infusion Intravenous, at 50 mL/hr Administer over 10 Hours, CONTINUOUS, Starting on Sat11/15/23 at 0930, Until Discontinued Start Infusion 11/15/2023 9:05 AM EDT 500 mL 50 mL/hr sodium chloride 0.9 % flush central line 10 mL 10 mL, IV Push, PRN Other, IV Flush, Starting on Sat11/15/23 at 0851, Until 11/16/23 at 0850, For 24 hours, Do not flush if [...] 517.4 mL/hr Daratumumab-hyaluronida se-fij (Darzalex Faspro) 1800 mg-05139 units/ 15 ml subcut inj 15 mL, [...] 9:07 AM EDT 1,000 mL 500 mL/hr documented in this encounter Advance Directives [...] Power of Attor coco? No Care Teams Embedded Software Developer Relationship Specialty Start Date End Date Michael Collins MD [address] [facility] [place] [address] PCP - General Internal Medicine 03/01/14 documented as of this encounter
--- OUTSIDE RECORDS SUMMARY | 2024-03-26 16:32 | External Medical Summary | Summary of Care ---
Author Name Unknown Organization [facility] Address [address] [facility] [place] [address] Phone [phone] Care Team Providers Care Unclaimed Property Officer Name Role Phone Michael Collins MD Primary Care Provi zehra Reason for Visit * Reason Comments Chemotherapy Cytoxan. * Episode Based Medications (Routine) - Authorized Specialty Diagnoses / Procedures Referred By Contac t Referred To Contact Diagnoses Multiple myeloma not having achieved remission (HCC) Procedures NE DARATUMUMAB, HYALURONIDASE NE INJ, CYCLOPHOSPHAMIDE, NOS Morgan Vásquez MD [address] [place] [address] Anc Hem/Onc Amena You DEPT CLOSED - 03/26/23 200 [facility] [place] [address] Referral ID Status Reason Start Date Expiration Date V isits Requested Visits Authorized [id number] Authorized 05/28/2022 05/12/2099 99 99 Encounter Details Date Type Department Care Team (Latest Contact Info) Description 10/31/2023 8:45 AM EDT Hem/Onc Treatment Hematology/Oncolog y Treatment, [place] [address] [place] [address] Kenyatta, Chair 2 Hem Onc Scenery [address] Amena Osman [place] [address] Multiple myeloma not having achieved remission (HCC)*; Encounter for antineoplastic chemotherapy Allergies No known active allergiesdocumented as of this encounter (statuses as of 11/18/2023) Medications Medication Sig Dispensed Refills Start Date End Date Status THEOPHYLLINE ER 450 MG PO ZI50Qyedhjshmag:2 tablet at bedtime Take by mouth. Indications: [...] at bedtime. PATIENT INFORMATION: Kris Galvin [address] [place] [address] [employer]: [employer] ORDER: Please start nocturnal oxygen via nasal [...] signed) Ish Caba MD Pulmonary Medicine, [address] [place] [address] [place] [facility] Medical License Number: [id number] 1 Each 09/21/2022 Active metFORMIN HCl ER [...] mRNA, LNP-s, No Pre serve, 2-Dose Series ([email or web address]) 01/17/2021,08/05/2020,07/08/2020 COVID-19, LNP-s, No Preserve , Bryant-sucrose, Ages 12+ ([email or web address]) 09/26/2021 DTaP Dipth/Tet/Acell Pertussis (Infanrix), Peds 02/23/2021,11/11/2020,09/09/2020 [...] AM EDT Laboratory Lab Mobile Phlebotomy MV [address] [facility] [place], [place] [id number] Mvmg, Gml Mobile Home Draw [address] [place] [address] 11/21/2023 8:45 AM EDT Hem/Onc Treatment Hematology/Oncology Treatment, [place] 200 [facility] [place] [phone] Kenyatta, Chair 2 Hem Onc Scenery 200 [place] [address] 11/27/2023 7:05 AM EDT Laboratory Lab Mobile Phlebotomy MVMG [address] [facility] [place] [address] Mvmg, Gml Mobile Home Draw [address] [facility] [place] [address] 11/28/2023 8:30 AM EDT [facility] 200 [facility] [place] [phone] Kenyatta, Chair 9 Hem Onc Scenery 200 [place] [address] 12/04/2023 7:05 AM EDT Laboratory Lab Mobile Phlebotomy MVMG [address] [place] [address] Mvmg, Gml Mobile Home Draw [address] [facility] [place] [address] 12/05/2023 8:45 AM EDT Hem[facility] 200 [facility] [place] [phone] Kenyatta, Chair 2 Hem Onc Scenery 200 [place] [address] 12/11/2023 7:00 AM EDT Laboratory Lab Mobile Phlebotomy MVMG [address] [place] [address] Mvmg, Gml Mobile Home Draw [address] [facility] [place] [address] 12/12/2023 11:15 AM EDT Office Visit Hematology/Oncology [facility] 200 [place] [address] Morgan Vásquez MD 200 [place] [address] 12/12/2023 11:45 AM EDT Hem/Onc Treatment Hematology/Oncology Treatment, [place] [address] [place] [phone] 12/18/2023 7:05 AM EDT Laboratory Lab Mobile Phlebotomy MVMG [address] [place] [address] Mvmg, Gml Mobile Home Draw [address]20 [place] [address] 12/25/2023 7:05 AM EDT Laboratory Lab Mobile Phlebotomy MVMG [address] [place] [address] Mvmg, Gml Mobile Home Draw [address] [place] [address] 01/01/2024 7:05 AM EDT Laboratory Lab Mobile Phlebotomy MVMG [address] [place] [address] Mvmg, Gml Mobile Home Draw [address] [place] [address] 01/08/2024 7:00 AM EDT Laboratory Lab Mobile Phlebotomy MVMG [address] [place] [address] Mvmg, Gml Mobile Home Draw [address] [place] [address] 01/15/2024 7:05 AM EDT Laboratory Lab Mobile Phlebotomy MVMG [address] [place] [address] Mvmg, Gml Mobile Home Draw [address] [facility] [place] [address] 01/22/2024 7:05 AM EDT Laboratory Lab Mobile Phlebotomy MVMG [address] [place] [address] Mvmg, Gml Mobile Home Draw [address] [place] [address] 01/29/2024 7:05 AM EDT Laboratory Lab Mobile Phlebotomy MVMG [address] [facility] [place], [place] [address] Mvmg, Gml Mobile Home Draw [address] [facility] [place], [place] [address] 02/05/2024 7:00 AM EDT Laboratory Lab Mobile Phlebotomy MVMG [address] [facility] [place], [place] [address] Mvmg, Gml Mobile Home Draw [address] [facility] [place], [place] [address] 02/05/2024 8:40 AM EDT Office Visit Neurology Amena You [place] 200 [facility] [place], [place] [address] Octavia Goins PA-C 200 [facility] [place], [place] [address] 02/07/2024 8:00 AM EDT Office Visit Rheumatology [address] [place] [phone] Darnell Higgins MD [address] [facility] [place] [place] [address] 02/12/2024 7:05 AM EDT Laboratory Lab Mobile Phlebotomy MVMG [address] [place], [place] [address] Mvmg, Gml Mobile Home Draw [address] [facility] [place], [place] [address] 02/19/2024 7:05 AM EDT Laboratory Lab Mobile Phlebotomy MVMG [address] [place], [place] [address] Mvmg, Gml Mobile Home Draw [address] [place] [address] 02/26/2024 7:05 AM EDT Laboratory Lab Mobile Phlebotomy MVMG [address] [place], [place] [address] Mvmg, Gml Mobile Home Draw [address] [facility] [place], [place] [address] 03/04/2024 7:00 AM EDT Laboratory Lab Mobile Phlebotomy MVMG [address] [place] [address] Mvmg, Gml Mobile Home Draw [address] [place] [address] 03/11/2024 7:05 AM EDT Laboratory Lab Mobile Phlebotomy MVMG [address] [place] [address] Mvmg, Gml Mobile Home Draw [address] [place] [address] 03/18/2024 7:05 AM EST Laboratory Lab Mobile Phlebotomy MVMG [address] [place] [address] Mvmg, Gml Mobile Home Draw [address] [place] [address] 03/25/2024 7:05 AM EST Laboratory Lab Mobile Phlebotomy MVMG [address] [place] [address] Mvmg, Gml Mobile Home Draw [address] [place] [address] 04/01/2024 7:00 AM EST Laboratory Lab Mobile Phlebotomy MVMG [address] [place] [address] Mvmg, Gml Mobile Home Draw [address] [place] [address] 04/08/2024 7:05 AM EST Laboratory Lab Mobile Phlebotomy MVMG [address] [place] [address] Mvmg, Gml Mobile Home Draw [address] [place] [address] 04/15/2024 7:05 AM EST Laboratory Lab Mobile Phlebotomy MVMG [address] [place] [address] Mvmg, Gml Mobile Home Draw [address] [place] [address] 04/22/2024 7:05 AM EST Laboratory Lab Mobile Phlebotomy MVMG [address] [place] [address] Mvmg, Gml Mobile Home Draw [address] [facility] [place] [address] 04/29/2024 7:05 AM EST Laboratory Lab Mobile Phlebotomy MVMG [address] [facility] [place] [address] Mvmg, Gml Mobile Home Draw [address] [facility] [place] [address] 05/05/2024 7:05 AM EST Laboratory Lab Mobile Phlebotomy MVMG [address] [facility] [place] [place] [address] Mvmg, Gml Mobile Home Draw [address] [facility] [place] [address] 09/02/2024 8:20 AM EDT Office Visit Pulmonary Medicine, [facility] [address] [facility] [place] [address] Ish Caba MD [address] [facility] [place] [address] 05/03/2025 7:40 AM EST Office Visit Dermatology [address] [place] [address] Albina Romo PA-C [address] [place] [address] [place] [address] Health Maintenance Due Date Last Done Comments [...] this encounter Medical Devices Implanted Type Area Scientific Programmer Device Identifier Shelf Expiration Date Model / Serial / Lot Mesh Plug Xlarge [id number] - [id number] Implanted:Qty: 1 on 12/09/2020 by John Zaragoza MD at OR [facility] Left: Pamin CR BARD : DAVOL 05/09/2023 [id number] / / [id number] documented as of this encounter Visit Diagnoses [...] Power of Attor coco? No Care Teams Unclaimed Property Officer Relationship Specialty Start Date End Date Michael Collins MD [address] [place] [address] [place] [address] PCP - General Internal Medicine 03/01/14 documented as of this encounter
--- OUTSIDE RECORDS SUMMARY | 2024-03-26 16:32 | External Medical Summary ---
Author Name Unknown Address Unknown Organization K01:[facility] [place] [facility] [address] [facility] [address] Laboratory Report Ordering Provider Test Date Status KALPESH SERRANO 11/13/2023 07:55:00 Final Observation Date Value Abnormality Reference (Units ) Status [place] light chains, Free, Serum 11/13/2023 07:55:00 21.50 Above high normal 3.30-19.40 (mg/L) Final [place] light chains, free, Serum 11/13/2023 07:55:00 1.36 Below low normal 5.71-26.30 (mg/L) Final KAPPA LAMBDA [facility] RATIO 11/13/2023 07:55:00 15.81 Above high normal 0.26-1.65 Final Performing Location [facility] [place] [facility] [place] [address]
--- OUTSIDE RECORDS SUMMARY | 2024-03-26 16:32 | External Medical Summary | Summary of Care ---
Author Name Unknown Organization [facility] Address [address] [facility] [place] [address] Phone [phone] Care Team Providers Care Production Expediter Name Role Phone Michael Collins MD Primary Care Provi zehra Reason for Visit * Reason Comments Treatment * Episode Based Medications (Routine) - Authorized Specialty Diagnoses / Procedures Referred By Contac t Referred To Contact Diagnoses Multiple myeloma not having achieved remission (HCC) Procedures [place] DARATUMUMAB, HYALURONIDASE [place] INJ, CYCLOPHOSPHAMIDE, NOS Morgan Vásquez MD [address] [place] [address] Anc Hem/Onc Amena You DEPT CLOSED - 03/26/23 [facility] [place] [address] Referral ID Status Reason Start Date Expiration Date V isits Requested Visits Authorized [id number] Authorized 05/28/2022 05/12/2099 99 99 Encounter Details Date Type Department Care Team (Latest Contact Info) Description 11/07/2023 8:45 AM EDT Hem/Onc Treatment Hematology/Oncology Treatment, [place] [address] [place] [address] Kenyatta, Chair 9 Hem Onc [facility] [address] [place] [address] Multiple myeloma not having achieved remission (HCC)* Allergies No known active allergiesdocumented as of this encounter (statuses as of 11/16/2023) Medications Medication Sig Dispensed Refills Start Date End Date Status THEOPHYLLINE ER 450 MG PO TD19Bpbrbaspioi:2 tablet at bedtime Take by mouth. Indications: [...] nostril at bedtime. PATIENT INFORMATION: Kris Galvin [address] [place] [address] [employer]QU[employer]MENT 908 Devices: [employer] ORDER: Please start nocturnal oxygen via nasal [...] (electronically signed) Ish Caba MD Pulmonary Medicine, [facility] 132 [facility] [place] [address] EME[facility] Medical License Number: [id number] 1 Each 09/21/2022 Active metFORMIN HCl ER [...] mRNA, LNP-s, No Pre serve, 2-Dose Series ([employer]per) 01/17/2021,08/05/2020,07/08/2020 COVID-19, LNP-s, No Preserve , Bryant-sucrose, Ages 12+ (Prosper) 09/26/2021 DTaP Dipth/Tet/Acell Pertussis (Infanrix), Peds 02/23/2021,11/11/2020,09/09/2020 [...] EDT Laboratory Lab Mobile Phlebotomy MVMG [address] [employer] [place] [address] Mvmg, Gml Mobile Home Draw [address] [employer] [place] [address] 11/21/2023 8:45 AM EDT Hem/Onc Treatment Hematology/Oncology Treatment, [place] [facility] [address] Kenyatta, Chair [address] [place] [address] 11/27/2023 7:05 AM EDT Laboratory Lab Mobile Phlebotomy MVMG [address] [employer] [place] [address] Mvmg, Gml Mobile Home Draw [address] [place] [address] 11/28/2023 8:30 AM EDT Hem/Onc Treatment Hematology/Oncology Treatment, [place] 200 [facility] [place] [address] Park, Chair 9 Hem Onc Scenery 200 [facility] [place], [place] [address] 12/04/2023 7:05 AM EDT Laboratory Lab Mobile Phlebotomy MVMG [address] [place] [address] [address] Mvmg, Gml Mobile Home Draw [address] [employer] [place] [address] 12/05/2023 8:45 AM EDT Hem[facility] 200 [facility] [address] Kenyatta, Chair [address] Hem On[address] [place], [place] [address] 12/11/2023 7:00 AM EDT Laboratory Lab Mobile Phlebotomy MVMG [address] [place], [place] [address] Mvmg, Gml Mobile Home Draw [address] [place], [place] [address] 12/12/2023 11:15 AM EDT Office Visit Hematology/Oncology [facility] 200 [facility], [place] [address] Morgan Vásquez MD 200 [facility], [place] [address] 12/12/2023 11:45 AM EDT Hem[facility]c [facility] 200 [facility] [place] [address] 12/18/2023 7:05 AM EDT Laboratory Lab Mobile Phlebotomy MVMG [address] [place], [place] [address] Mvmg, Gml Mobile Home Draw [address] [place], [place] [address] 12/25/2023 7:05 AM EDT Laboratory Lab Mobile Phlebotomy MVMG [address] [place] [address] Mvmg, Gml Mobile Home Draw [address] [place] [address] 01/01/2024 7:05 AM EDT Laboratory Lab Mobile Phlebotomy MVMG [address] [employer] [facility] [employer] [place], [place] [address] Mvmg, Gml Mobile Home Draw [address] [place] [address] 01/08/2024 7:00 AM EDT Laboratory Lab Mobile Phlebotomy MVMG [address] [place] [address] Mvmg, Gml Mobile Home Draw [address] [facility] [place] [address] 01/15/2024 7:05 AM EDT Laboratory Lab Mobile Phlebotomy MVMG [address] [place] [address] Mvmg, Gml Mobile Home Draw [address] [facility] [place] [address] 01/22/2024 7:05 AM EDT Laboratory Lab Mobile Phlebotomy MVMG [address] [place] [address] Mvmg, Gml Mobile Home Draw [address] [facility] [place] [address] 01/29/2024 7:05 AM EDT Laboratory Lab Mobile Phlebotomy MVMG [address] [facility] [place] [address] Mvmg, Gml Mobile Home Draw [address] [facility] [place] [address] 02/05/2024 7:00 AM EDT Laboratory Lab Mobile Phlebotomy MVMG [address] [facility] [place] [address] Mvmg, Gml Mobile Home Draw [address] [facility] [place] [address] 02/05/2024 8:40 AM EDT Office Visit Neurology [facility] 200 [facility] [place], [place] [address] Octavia Goins PA-C 200 [facility] [place] [address] 02/07/2024 8:00 AM EDT Office Visit Rheumatology [address] [place] [phone] Darnell Higgins MD [address] [facility] [place] [address] 02/12/2024 7:05 AM EDT Laboratory Lab Mobile Phlebotomy MVMG [address]20 [facility] [place] [address] Mvmg, Gml Mobile Home Draw [address]20 [facility] [place] [address] 02/19/2024 7:05 AM EDT Laboratory Lab Mobile Phlebotomy MVMG [address] [facility] [place] [address] Mvmg, Gml Mobile Home Draw [address] [facility] [place] [address] 02/26/2024 7:05 AM EDT Laboratory Lab Mobile Phlebotomy MVMG [address] [facility] [place] [address] Mvmg, Gml Mobile Home Draw [address] [facility] [place] [address] 03/04/2024 7:00 AM EDT Laboratory Lab Mobile Phlebotomy MVMG [address] [facility] [place] [address] Mvmg, Gml Mobile Home Draw [address]20 [facility] [place] [address] 03/11/2024 7:05 AM EDT Laboratory Lab Mobile Phlebotomy MVMG [address] [facility] [place] [address] Mvmg, Gml Mobile Home Draw 25[address] [facility] [place] [address] 03/18/2024 7:05 AM EST Laboratory Lab Mobile Phlebotomy MVMG [address] [facility] [place] [address] Mvmg, Gml Mobile Home Draw 25[address] [facility] [place] [address] 03/25/2024 7:05 AM EST Laboratory Lab Mobile Phlebotomy MVMG [address] [facility] [place] [address] Mvmg, Gml Mobile Home Draw 2520 [facility] [place] [address] 04/01/2024 7:00 AM EST Laboratory Lab Mobile Phlebotomy MVMG [address] [facility] [place] [address] Mvmg, Gml Mobile Home Draw 25[address] [place] [address] 04/08/2024 7:05 AM EST Laboratory Lab Mobile Phlebotomy MVMG 25[address] [employer] [place] [address] Mvmg, Gml Mobile Home Draw [address] [place] [address] 04/15/2024 7:05 AM EST Laboratory Lab Mobile Phlebotomy MVMG [address] [employer] [place] [place] [address] Mvmg, Gml Mobile Home Draw [address] [place] [employer] [place] [place] [address] 04/22/2024 7:05 AM EST Laboratory Lab Mobile Phlebotomy MVMG [address] [employer] [place] [place] [address] Mvmg, Gml Mobile Home Draw 25[address] [facility] [place] [address] 04/29/2024 7:05 AM EST Laboratory Lab Mobile Phlebotomy MVMG [address] [employer] [address] [place] [place] [address] Mvmg, Gml Mobile Home Draw [address] [facility] [place] [address] 05/05/2024 7:05 AM EST Laboratory Lab Mobile Phlebotomy MVMG [address] [employer] [place] [place] [address] Mvmg, Gml Mobile Home Draw [address] [place] [employer] [place] [address] 09/02/2024 8:20 AM EDT Office Visit Pulmonary Medicine, [facility] [address] [place] [address] Ish Caba MD [address] [place] [address] 05/03/2025 7:40 AM EST Office Visit Dermatology [address] [place] [address] Albina Romo PA-C [address] [place] [address] [place] [address] Health Maintenance Due Date Last Done Comments [...] this encounter Medical Devices Implanted Type Area Restaurant Worker Device Identifier Shelf Expiration Date Model / Serial / Lot Mesh Plug Xlarge [id number] - [id number] Implanted:Qty: 1 on 12/09/2020 by John Zaragoza MD at OR [facility] Left: Demond RIVAS BARD : LUCINDA 05/09/2023 [id number] / / [id number] documented as of this encounter Visit Diagnoses [...] Power of Attor coco? No Care Teams Production Expediter Relationship Specialty Start Date End Date Michael Collins MD [address] [place] [address] [place] [address] PCP - General Internal Medicine 03/01/14 documented as of this encounter
--- OUTSIDE RECORDS SUMMARY | 2024-03-26 16:33 | External Medical Summary ---
Author Name Unknown Address Unknown Organization K01:[facility] [place] - [address] [facility] [place] [address] Laboratory Report Ordering Provider Test Date Status KALPESH SERRANO 10/30/2023 08:25:00 Final Observation Date Value Abnormality Reference (Units ) Status BUN 10/30/2023 08:25:00 23 Above high normal 6-20 (mg/dL) Final Creatinine 10/30/2023 08:25:00 1.0 0.6-1.2 (mg/dL) Final Glomerular filtration rate/1.73 sq M.predicted [Volume Rate/Area] in Serum, Plasma or Blood by Creatinine-based formula (CKD-EPI) 10/30/2023 08:25:00 85 >=60 (mL/min) Final eGFR is calculated based on the CKD-EPI 2020 equation Sodium 10/30/2023 08:25:00 138 135-146 (m mol/L) Final Potassium 10/30/2023 08:25:00 4.0 3.5-5.1 (m mol/L) Final Cl 10/30/2023 08:25:00 99 98-107 (mm ol/L) Final CO2 10/30/2023 08:25:00 26 22-32 (mmo l/L) Final Anion gap 10/30/2023 08:25:00 13 7-15 (mmol /L) Final Glucose 10/30/2023 08:25:00 98 70-120 (mg /dL) Final Albumin 10/30/2023 08:25:00 4.4 3.8-5.0 (g /dL) Final AST (Aspartate aminotransferase) 10/30/2023 08:25:00 17 10-50 (U/L) Final Result may be falsely elevat ed due to hemolysis. Alk Phos 10/30/2023 08:25:00 126 35-130 (U/ L) Final Bilirubin, Total 10/30/2023 08:25:00 0.3 <=1 .2 (mg/dL) Final Calcium 10/30/2023 08:25:00 9.2 8.4-10.2 ( mg/dL) Final Protein 10/30/2023 08:25:00 6.9 6.0-8.3 (g /dL) Final ALT (Alanine aminotransferase) 10/30/2023 08:25:00 20 10-50 (U/L) Final Performing Location LAB[facility]ORY [facility] [place] - [address] [facility] [address]
--- OUTSIDE RECORDS SUMMARY | 2024-03-26 16:33 | External Medical Summary | Summary of Care ---
Author Name Unknown Organization [facility] Address [address] [address] Phone [phone] Care Team Providers Care Stand Grinder Name Role Phone Michael Collins MD Primary Care Provi zehra Reason for Visit * Reason Comments Rheum Follow Up Follow up - 4 joint injections Encounter Details Date Type Department Care Team (Latest Contact Info) Description 11/08/2023 9:40 AM EDT Office Visit Rheumatology [address] [place] [phone] Darnell Higgins MD [address] [facility] [place] [address] Primary osteoarthritis of both knees*; Primary osteoarthritis of both hands; Primary osteoarthritis, left ankle and foot Allergies No known active allergiesdocumented as of this encounter (statuses as of 11/08/2023) Medications Medication Sig Dispensed Refills Start Date End Date Status THEOPHYLLINE ER 450 MG PO [id number] tablet at bedtime Take by mouth. Indications: [...] nostril at bedtime. PATIENT INFORMATION: Kris Galvin [address] [place] [address] [employer] ORDER: Please start nocturnal oxygen via nasal [...] signed) Ish Caba MD Pulmonary Medicine, [address] [place] [address] [place] [facility] Medical License Number: [id number] 1 Each 09/21/2022 Active metFORMIN HCl ER [...] of both knees 20 mg IX ONCE 11/08/2023 11/08/2023 Ended Lidocaine (PF) 2 % (PF) inj 20 mgIndications:Primary osteoarthritis, left ankle and foot 20 mg IX ONCE 11/08/2023 11/08/2023 Ended methylPREDNISolone acetate (Depo-Medrol) 40 MG/ML inj 40 mgIndications:Primary osteoarthritis of both knees 40 mg IX ONCE 11/08/2023 11/08/2023 Ended methylPREDNISolone acetate (Depo-Medrol) 40 MG/ML inj 40 mgIndications:Primary osteoarthritis, left ankle and foot 40 mg IX ONCE 11/08/2023 11/08/2023 Ended methylPREDNISolone acetate (Depo-Medrol) 40 MG/ML inj 20 mgIndications:Primary osteoarthritis of both hands 20 mg IX ONCE 11/08/2023 11/08/2023 Ended methylPREDNISolone acetate (Depo-Medrol) 40 MG/ML inj 20 mgIndications:Primary osteoarthritis of both hands 20 mg IX ONCE 11/08/2023 11/08/2023 Ended documented as of this encounter (statuses as of 11/08/2023) Active Problems Problem Noted Date Diagnosed Date [...] as of this encounter (statuses as of 11/08/2023) Resolved Problems Problem Noted Date Diagnosed Date Resolved Date Asthma in remission 08/28/2022 08/29/19 Asthma, mild persistent 08/28/2022 0412/2022 Asthma, severe persistent 08/28/2022 Stem cell transplant candidate 08/17/2019 09/02/2019 documented as of this encounter (statuses as of 11/08/2023) Immunizations Name Administration Dates Next Due COVID-19 mRNA, LNP-s, No Pre serve, 2-Dose Series ([employer]) 01/17/2021,08/05/2020,07/08/2020 COVID-19, LNP-s, No Preserve , [...] Sign Reading Time Taken Comments Blood Pressure - - Pulse - - Temperature 36.9 C (98.4 F) 11/08/2023 9:38 AM ED T Respiratory Rate - - Oxygen Saturation - - Inhaled Oxygen Concentration - - Weight 132 kg (291 lb) 11/08/2023 9:38 AM EDT Height - - Body Mass [...] Progress Notes * Darnell Higgins MD - 11/08/2023 9:46 AM EDTAssociated Order(s): ANDREINA Joint Inj/Arthro: L knee; Joint Inj/Arthro: L ankle; SM Joint Inj/Arthro: R long MCP; SM Joint Inj/Arthro: L index MCP Post-Procedure Diagnose(s): Primary osteoarthritis of both knees; Primary osteoarthritis of both hands; Primary osteoarthritis, left ankle and foot Kris Galvin is a 58 year old male patient. ICD-10-CM 1. Primary osteoarthritis of both knees M17.0 2. Primary osteoarthritis of both hands M19.041 M19.042 3. 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 Concussion with loss of consciousness of 30 minutes or less 01/03/2012 Degeneration of lumbosacral intervertebral disc 04/14/2008 Encounter for antineoplastic chemotherapy 08/31/2019 Generalized osteoarthritis 04/14/2008 History of autologous stem cell transplant ([facility]) 09/02/2019 T 0 = 09/01/2019 Preparative Regimen: Melphalan 200 mg/m2 Stem Cell Dose: 5.96 X 10^6 CD 34/kg INFORMATION 12/28/11 [place] Multiple myeloma not having achieved remission ([facility]) 12/30/2020 Temperature 36.9 C (98.4 F), temperature source Infrared , weight 132 kg (291 lb). LG Joint Inj/Arthro: L knee on 11/08/2023 9:46 AM Indications: pain Details: 25 G needle, anterior approach Medications: (40mg of depomedrol and 1 ml of 2% lidocaine) Outcome: tolerated well, no immediate complications Procedure, treatment alternatives, risks and benefits explained, specific risks discussed. Consent was given by the patient. Immediately prior to procedure a time out was called to verify the correctpatient, procedure, equipment, instructional support specialist and site/side marked as required. Patient was prepped and draped in the usual sterile fashion. MD Joint Inj/Arthro: L ankle on 11/08/2023 9:47 AM Indications: pain Details: 25 G needle, anterolateral approach Medications: (40mg of depomedrol and 1 ml of 2% lidocaine) Outcome: tolerated well, no immediate complications Procedure, treatment alternatives, risks and benefits explained, specific risks discussed. Consent was given by the patient. Immediately prior to procedure a time out was called to verify the correctpatient, procedure, equipment, instructional support specialist and site/side marked as required. Patient was prepped and draped in the usual sterile fashion. SM Joint Inj/Arthro: R long MCP on 11/08/2023 9:47 AM Indications: pain Details: 25 G needle Medications: (20mg of depomedrol) Outcome: tolerated well, no immediate complications Procedure, treatment alternatives, risks and benefits explained, specific risks discussed. Consent was given by the patient. Immediately prior to procedure a time out was called to verify the correctpatient, procedure, equipment, instructional support specialist and site/side marked as required. Patient was prepped and draped in the usual sterile fashion. SM Joint Inj/Arthro: L index MCP on 11/08/2023 9:48 AM Indications: pain Details: 25 G needle Medications: (20mg of depomedrol) Outcome: tolerated well, no immediate complications Procedure, treatment alternatives, risks and benefits explained, specific risks discussed. Consent was given by the patient. Immediately prior to procedure a time out was called to verify the correctpatient, procedure, equipment, instructional support specialist and site/side marked as required. Patient was prepped and draped in the usual sterile fashion. Darnell Higgins MD 11/08/2023 documented in this encounter Nursing Notes * Eli Fletcher LPN - 11/08/2023 9:38 AM EDT Chief Complaint Patient presents with Rheum Follow Up Follow up - 4 joint injections documented in this encounter Plan of Treatment Upcoming Encounters Date Type Department Care Team (Late st Contact Info) Description 11/13/2023 7:00 AM EDT Laboratory Lab Mobile Phlebotomy [facility] [address] [place] [address] [facility] [address] [place] [address] 11/15/2023 8:30 AM EDT Hem/Onc Treatment Hematology/Oncology Treatment, [place] [address] [place] [phone] Park, Chair [address] Hem Onc [address] [place] [address] 11/20/2023 7:05 AM EDT Laboratory Lab [facility] Phlebot[facility] [address] [place] [address] [facility] [address] [place] [address] 11/27/2023 7:05 AM EDT Laboratory Lab [facility] Phlebotomy [facility] [address] [place] [address] [facility] [address] [place] [address] 12/04/2023 7:05 AM EDT Laboratory Lab [facility]lebot[facility] [address] [place] [address] [facility] [address] [place] [address] 12/11/2023 7:00 AM EDT Laboratory Lab [facility] Phlebot[facility] [address] [place] [address] [facility] [address] [facility] [place] [address] 12/12/2023 11:15 AM EDT Office Visit Hematology/Oncology [facility] [address] [place] [phone] Morgan Vásquez MD [address] [place] [address] 12/12/2023 11:45 AM EDT [facility] 200 [facility] [place] [phone] 12/18/2023 7:05 AM EDT Laboratory Lab [facility] Phlebotomy [facility] [address] [place] [address] [facility] [address] [place] [address] 12/25/2023 7:05 AM EDT Laboratory Lab Mobile Phlebotomy [facility] [address] [place] [address] [facility] Draw [address] [facility] [employer] [place] [address] 01/01/2024 7:05 AM EDT Laboratory Lab Mobile Phlebotomy [facility] [address] [place] [address] [facility] Draw [address] [facility] [employer] [place] [address] 01/08/2024 7:00 AM EDT Laboratory Lab Mobile Phlebotomy [facility] [address] [place] [address] [facility] Draw [address] [place] [address] 01/15/2024 7:05 AM EDT Laboratory Lab [facility] Phlebotomy [facility] [address] [place] [address] [facility] [address] [place] [place] [address] 01/22/2024 7:05 AM EDT Laboratory Lab [facility] Phlebotomy [facility] [address] [facility] [place] [address] [facility] Draw [address] [facility] [place] [address] 01/29/2024 7:05 AM EDT Laboratory Lab [facility] Phlebotomy [facility] [address] [facility] [place] [address] [facility], [facility] [address] [facility] [employer] [place] [address] 02/05/2024 7:00 AM EDT Laboratory Lab [facility] Phlebotomy [facility] [address] [place] [address] [facility] [address] [place] [address] 02/05/2024 8:40 AM EDT Office Visit Neurology [facility] Abraham [address] [place] [address] Octavia Goins PA-C [address] [place] [address] 02/07/2024 8:00 AM EDT Office Visit Rheumatology [address] [place] [phone] Darnell Higgins MD [address] [place], [place] [address] 02/12/2024 7:05 AM EDT Laboratory Lab [facility] Phlebotomy [facility] [address] [place], [place] [address] [facility] [address] [place], [place] [address] 02/19/2024 7:05 AM EDT Laboratory Lab [facility] Phlebot[facility] [address] [place] [address] [facility] [address] [place], [place] [address] 02/26/2024 7:05 AM EDT Laboratory Lab Mobile Phlebotomy [facility] [address] [place] [address] [facility] [address] [place] [address] 03/04/2024 7:00 AM EDT Laboratory Lab [facility] Phlebotomy [facility] [address] [place] [address] [facility] [address] [place] [address] 03/11/2024 7:05 AM EDT Laboratory Lab Mobile Phlebotomy [facility] [address] [place] [address] [facility] [address] [place] [address] 03/18/2024 7:05 AM EST Laboratory Lab Mobile Phlebotomy [facility] [address] [place] [address] [facility] [address] [place] [address] 03/25/2024 7:05 AM EST Laboratory Lab [facility] Phlebotomy [facility] [address] [facility] [place] [address] [facility], [facility] Draw [address] [facility] [place] [address] 04/01/2024 7:00 AM EST Laboratory Lab [facility] Phlebotomy [facility] [address] [facility] [place] [address] [facility] Draw [address] [place] [address] 04/08/2024 7:05 AM EST Laboratory Lab [facility] Phlebotomy [facility] [address] [place] [address] M[facility], [facility] Draw [address] [facility] [place] [address] 04/15/2024 7:05 AM EST Laboratory Lab [facility] Phlebotomy [facility] [address] [place] [address] M[facility], G[facility] Draw [address] [place] [address] 04/22/2024 7:05 AM EST Laboratory Lab [facility] Phlebotomy [facility] [address] [facility] [place] [address] M[facility], [facility]ml [facility] Draw [address] [place] [address] 04/29/2024 7:05 AM EST Laboratory Lab [facility] Phlebotomy [facility] [address] [place] [address] M[facility], [facility] Draw [address] [place] [address] 05/05/2024 7:05 AM EST Laboratory Lab [facility] Phlebotomy [facility] [address] [facility] [place] [address] [facility] Draw [address] [facility] [place] [address] 09/02/2024 8:20 AM EDT Office Visit Pulmonary Medicine, [facility] [address] [place] [address] Ish Caba MD [address] [place] [place] [address] 05/03/2025 7:40 AM EST Office Visit Dermatology [address] [place] [address] Albina Romo PA-C [address] [place] [address] [place] [address] Health Maintenance Due Date Last Done Comments Depression Screening 1976 Albumin/Creatinine Ratio 1982 Cologuard 2009 Fecal Occult Blood Test 2009 Sigmoidoscopy 2009 COVID-19 Vaccine ( season) 2023 01/28/2022, 09/26/2021, 01/17/2021, Additional history exists Colonoscopy 03/03/2023 03/03/2018, 03/03/2018 Colorectal Cancer Screening 03/03/2023 GFR 11/05/2024 11/06/2023, 10/11, 10/23/2023, Additional history exists Lipid Panel 11/18/2024 11/19/2019, 07/11, 07/29/2009 Diabetes Screening 11/05/2026 11/06/2023, 0 10/30/2023, 10/23/2023, Additional history exists DTaP,Tdap,and Td Vaccines (4 - Tdap) 02/23/2031 02/23/2021, 11/11/2020, 09/09/2020 RETIRED - COLONOSCOPY-EVERY 5 YRS AGES 18-100 Discontinued 03/03/2018, 03/03/2018 Hepatitis C Screening Completed 08/07/2019 Zoster Vaccines Completed 05/03/2020, 03/04/2020 MENINGOCOCCAL (MENACTRA/MENVEO) Aged Out 10/25/2020, 09/09/2020 No longer eligibl e based on patient's age to complete this topic Hepatitis B Completed 02/23/2021, 10/11, 09/09/2020 Pneumococcal Vaccine: Pediatrics (0 to 5 Years) and At-Risk Patients (6 to 64 Years) Completed 12/25/2021, 03/02/2021, 09/09/2020, Additional history exists GARDASIL-HPV IMMUNIZATION SERIES Aged Out No longer eligible based on patient's age to complete this topic documented as of this encounter Medical Devices Implanted Type Area Lpn Rn Device Identifier Shelf Expiration Date Model / Serial / Lot Mesh Plug Xlarge [id number] - [id number] Implanted:Qty: 1 on 12/09/2020 by John Zaragoza MD at OR [facility] Left: Groin CR BARD : DAVOL 05/09/2023 [id number] / / [id number] documented as of this encounter Procedures Procedure Name Priority Date/Time Associated Diagnosis Comments FL ARTHROCENTESIS ASPIR&/INJ SMALL JT/BURSA W/O US Routine 11/08/2023 9:48 AM EDT Primary osteoarthritis of both hands FL ARTHROCENTESIS ASPIR&/INJ SMALL JT/BURSA W/O US Routine 11/08/2023 9:47 AM EDT Primary osteoarthritis of both hands FL ARTHROCENTESIS ASPIR&/INJ INTERM JT/BURS W/O US Routine 11/08/2023 9:47 AM EDT Primary osteoarthritis, left ankle and foot FL ARTHROCENTESIS ASPIR&/INJ MAJOR JT/BURSA W/O US Routine 11/08/2023 9:46 AM EDT Primary osteoarthritis of both knees documented in this encounter Results * FL ARTHROCENTESIS ASPIR&/INJ SMALL JT/BURSA W/O US (11/08/2023 9:48 AM EDT) Narrative Darnell Higgins MD - 11/08/2023 9:48 AM EDT Darnell Higgins MD 11/08/2023 11:24 AM SM Joint Inj/Arthro: L index MCP on 11/08/2023 9:48 AM Indications: pain Details: 25 G needle Medications: (20mg of depomedrol) Outcome: tolerated well, no immediate complications Procedure, treatment alternatives, risks and benefits explained, specific risks discussed. Consent was given by the patient. Immediately prior to procedure a time out was called to verify the correct patient, procedure, equipment, instructional support specialist and site/side marked as required. Patient was prepped and draped in the usual sterile fashion. Darnell Higgins MD PROCDOC FORM * FL ARTHROCENTESIS ASPIR&/INJ SMALL JT/BURSA W/O US (11/08/2023 9:47 AM EDT) Darnell Cannon MD - 11/08/2023 9:47 AM EDT Darnell Higgins MD 11/08/2023 11:24 AM SM Joint Inj/Arthro: R long MCP on 11/08/2023 9:47 AM Indications: pain Details: 25 G needle Medications: (20mg of depomedrol) Outcome: tolerated well, no immediate complications Procedure, treatment alternatives, risks and benefits explained, specific risks discussed. Consent was given by the patient. Immediately prior to procedure a time out was called to verify the correct patient, procedure, equipment, instructional support specialist and site/side marked as required. Patient was prepped and draped in the usual sterile fashion. Darnell Higgins MD PROCDOC FORM * FL ARTHROCENTESIS ASPIR&/INJ INTERM JT/BURS W/O US (11/08/2023 9:47 AM EDT) Darnell Cannon MD - 11/08/2023 9:47 AM EDT Darnell Higgins MD 11/08/2023 11:24 AM MD Joint Inj/Arthro: L ankle on 11/08/2023 9:47 AM Indications: pain Details: 25 G needle, anterolateral approach Medications: (40mg of depomedrol and 1 ml of 2% lidocaine) Outcome: tolerated well, no immediate complications Procedure, treatment alternatives, risks and benefits explained, specific risks discussed. Consent was given by the patient. Immediately prior to procedure a time out was called to verify the correct patient, procedure, equipment, instructional support specialist and site/side marked as required. Patient was prepped and draped in the usual sterile fashion. Darnell Higgins MD PROCDOC FORM * FL ARTHROCENTESIS ASPIR&/INJ MAJOR JT/BURSA W/O US (11/08/2023 9:46 AM EDT) Narrative Darnell Higgins MD - 11/08/2023 9:46 AM EDT Darnell Higgins MD 11/08/2023 11:24 AM LG Joint Inj/Arthro: L knee on 11/08/2023 9:46 AM Indications: pain Details: 25 G needle, anterior approach Medications: (40mg of depomedrol and 1 ml of 2% lidocaine) Outcome: tolerated well, no immediate complications Procedure, treatment alternatives, risks and benefits explained, specific risks discussed. Consent was given by the patient. Immediately prior to procedure a time out was called to verify the correct patient, procedure, equipment, instructional support specialist and site/side marked as required. Patient was prepped and draped in the usual sterile fashion. Darnell Higgins MD PROCDOC FORM documented in this encounter Visit Diagnoses Diagnosis Primary osteoarthritis of both knees- Primary Primary localized osteoarthrosis, lower leg Primary osteoarthritis of both hands Primary osteoarthritis, left ankle and foot documented in this encounter Administered Medications Inactive Administered Medications - up to 3 most recent administrations Medication Order MAR Action Action Date Dose Rate Site Lidocaine (PF) 2 % (PF) inj 20 mg 20 mg, Intra-Articular, ONCE, On Sat11/08/23 at 1030, For 1 dose Given 11/08/2023 9:49 AM EDT 20 mg Knee Left Lidocaine (PF) 2 % (PF) inj 20 mg 20 mg, Intra-Articular, ONCE, On Sat11/08/23 at 1030, For 1 dose Given 11/08/2023 9:49 AM EDT 20 mg Ankle Left methylPREDNISolone acetate (Depo-Medrol) 40 MG/ML inj 20 mg 20 mg, Intra-Articular, ONCE, On Sat11/08/23 at 1030, For 1 dose Given 11/08/2023 9:49 AM EDT 20 mg Hand Left methylPREDNISolone acetate (Depo-Medrol) 40 MG/ML inj 20 mg 20 mg, Intra-Articular, ONCE, On Sat11/08/23 at 1030, For 1 dose Given 11/08/2023 9:49 AM EDT 20 mg Hand Right methylPREDNISolone acetate (Depo-Medrol) 40 MG/ML inj 40 mg 40 mg, Intra-Articular, ONCE, On Sat11/08/23 at 1030, For 1 dose Given 11/08/2023 9:49 AM EDT 40 mg Ankle Left methylPREDNISolone acetate (Depo-Medrol) 40 MG/ML inj 40 mg 40 mg, Intra-Articular, ONCE, On Sat11/08/23 at 1030, For 1 dose Given 11/08/2023 9:48 AM EDT 40 mg Knee Left documented in this encounter Advance Directives [...] Power of Attor coco? No Care Teams Stand Grinder Relationship Specialty Start Date End Date Michael Collins MD [address] [place] [address] [place] [address] PCP - General Internal Medicine 03/01/14 documented as of this encounter
--- OUTSIDE RECORDS SUMMARY | 2024-03-26 16:33 | External Medical Summary ---
Author Name Unknown Address Unknown Organization [id number]:[facility]ATORY [facility] – [place] - [address] [facility] [place] [address] Laboratory Report Ordering Provider Test Date Status KALPESH SERRANO 11/13/2023 07:55:00 Final Observation Date Value Abnormality Reference (Units) Status PARAPROTEIN NORMAL/ABNORMAL 11/13/2023 07:55:00 Abnormal Abnormal Normal Final Protein 11/13/2023 07:55:00 6.7 6.0-8.3 (g/dL) Final Albumin/Protein.total [Pure mass fraction] in Serum or Plasma by Electrophoresis 11/13/2023 07:55:00 3.74 3.30-4.40 (g/dL) Final Alpha 1 globulin/Protein.total [Pure mass fraction] in Serum or Plasma by Electrophoresis 11/13/2023 07:55:00 0.19 0.10-0.30 (g/dL) Final Alpha 2 globulin/Protein.total [Pure mass fraction] in Serum or Plasma by Electrophoresis 11/13/2023 07:55:00 0.92 0.60-1.00 (g/dL) Final Beta globulin/Protein.total [Pure mass fraction] in Serum or Plasma by Electrophoresis 11/13/2023 07:55:00 0.84 0.80-1.30 (g/dL) Final Gamma globulin/Protein.total [Pure mass fraction] in Serum or Plasma by Electrophoresis 11/13/2023 07:55:00 1.01 0.70-1.70 (g/dL) Final Monoclonal protein 11/13/2023 07:55:00 0.90 (g/dL) Final Protein Fractions [Interpretation] in Serum or Plasma by Electrophoresis Narrative 11/13/2023 07:55:00 Abnormal. A paraprotein is present that has been previously identified as a monoclonal IgG kappa. Final Performing Location [facility]ORY [facility] – [place] - [address] [facility] [address]
--- OUTSIDE RECORDS SUMMARY | 2024-03-26 16:33 | External Medical Summary ---
Author Name Unknown Address Unknown Organization K01:LAB[facility]ATORY [facility] [place] - [address] [place] [facility] [place] [address] Laboratory Report Ordering Provider Test Date Status KALPESH SERRANO 11/06/2023 08:13:00 Final Observation Date Value Abnormality Reference (Units ) Status BUN 11/06/2023 08:13:00 19 6-20 (mg/dL) Final Creatinine 11/06/2023 08:13:00 1.1 0.6-1.2 (mg/dL) Final Glomerular filtration rate/1.73 sq M.predicted [Volume Rate/Area] in Serum, Plasma or Blood by Creatinine-based formula (CKD-EPI) 11/06/2023 08:13:00 78 >=60 (mL/min) Final eGFR is calculated based on the CKD-EPI 2020 equation Sodium 11/06/2023 08:13:00 138 135-146 (m mol/L) Final Potassium 11/06/2023 08:13:00 4.0 3.5-5.1 (m mol/L) Final Cl 11/06/2023 08:13:00 99 98-107 (mm ol/L) Final CO2 11/06/2023 08:13:00 27 22-32 (mmo l/L) Final Anion gap 11/06/2023 08:13:00 12 7-15 (mmol /L) Final Glucose 11/06/2023 08:13:00 100 70-120 (mg /dL) Final Albumin 11/06/2023 08:13:00 4.4 3.8-5.0 (g /dL) Final AST (Aspartate aminotransferase) 11/06/2023 08:13:00 21 10-50 (U/L) Final Alk Phos 11/06/2023 08:13:00 111 35-130 (U/ L) Final Bilirubin, Total 11/06/2023 08:13:00 0.4 <=1 .2 (mg/dL) Final Calcium 11/06/2023 08:13:00 9.1 8.4-10.2 ( mg/dL) Final Protein 11/06/2023 08:13:00 6.4 6.0-8.3 (g /dL) Final ALT (Alanine aminotransferase) 11/06/2023 08:13:00 18 10-50 (U/L) Final Performing Location LAB[facility]ATORY [facility] [place] - [address] [facility] [address]
--- OUTSIDE RECORDS SUMMARY | 2024-03-26 16:33 | External Medical Summary | Summary of Care ---
Author Name Unknown Organization [facility] Address [address] [facility] [place] [address] Phone [phone] Care Team Providers Care Director Talent Name Role Phone Michael Collins MD Primary Care Provi zehra Reason for Visit * Reason Comments Treatment * Episode Based Medications (Routine) - Authorized Specialty Diagnoses / Procedures Referred By Contac t Referred To Contact Diagnoses Multiple myeloma not having achieved remission (HCC) Procedures [place] DARATUMUMAB, HYALURONIDASE [place] INJ, CYCLOPHOSPHAMIDE, NOS Morgan Vásquez MD [address] [place] [id number] Anc Hem/Onc Amena You DEPT CLOSED - 03/26/23 [facility] [place] [phone] Referral ID Status Reason Start Date Expiration Date V isits Requested Visits Authorized [id number] Authorized 05/28/2022 05/12/2099 99 99 Encounter Details Date Type Department Care Team (Latest Contact Info) Description 11/07/2023 8:45 AM EDT Hem/Onc Treatment Hematology/Oncology Treatment, [place] [address] [place] [phone] Kenyatta, Chair 9 Hem Onc [facility] [address] [address] Multiple myeloma not having achieved remission (HCC)* Allergies No known active allergiesdocumented as of this encounter (statuses as of 11/07/2023) Medications Medication Sig Dispensed Refills Start Date End Date Status THEOPHYLLINE ER 450 [id number] tablet at bedtime Take by mouth. Indications: [...] nostril at bedtime. PATIENT INFORMATION: Kris Galvin [address] [place] [address] [employer]: [email or web address] ORDER: Please start nocturnal oxygen via nasal [...] signed) Ish Caba MD Pulmonary Medicine, [facility] [address] [facility] [place] [address] [place] [facility] Medical License Number: [id number] 1 Each 09/21/2022 Active metFORMIN HCl ER [...] as of this encounter (statuses as of 11/07/2023) Active Problems Problem Noted Date Diagnosed Date [...] as of this encounter (statuses as of 11/07/2023) Resolved Problems Problem Noted Date Diagnosed Date Resolved Date Asthma in remission 08/28/2022 08/29/19 Asthma, mild persistent 08/28/202208/11 Asthma, severe persistent 08/28/2022 Stem cell transplant candidate 08/17/2019 09/02/2019 documented as of this encounter (statuses as of 11/07/2023) Immunizations Name Administration Dates Next Due COVID-19 mRNA, LNP-s, No Pre serve, 2-Dose Series ([employer]) 01/17/2021,08/05/2020,07/08/2020 COVID-19, LNP-s, No Preserve , Bryant-sucrose, Ages 12+ ([employer]) 09/26/2021 DTaP Dipth/Tet/Acell Pertussis (Infan[employer]), Peds 02/23/2021,11/11/2020,09/09/2020 [...] Care Team (Late st Contact Info) Description 11/08/2023 9:40 AM EDT Office Visit Rheumatology [address] [place] [phone] Darnell Higgins MD [address] [place] [address] 11/13/2023 7:00 AM EDT Laboratory Lab Mobile Phlebotomy [facility] [address] [place] [address] [place] [address] [address] [facility] [address] [place] [address] 11/15/2023 8:30 AM EDT Hem/Onc Treatment Hematology/Oncology Treatment, [place] [address] [facility] [address] [place] [phone] Kenyatta, Chair 11 Hem Onc [address] [facility] [place] [address] 11/20/2023 7:05 AM EDT Laboratory Lab Mobile Phlebotomy [facility] [address] [place] [address] [address] [facility] [address] [place] [address] 11/27/2023 7:05 AM EDT Laboratory Lab Mobile Phlebotomy [facility] [address] [place] [address] [address] [facility] [address] [place] [address] [address] 12/04/2023 7:05 AM EDT Laboratory Lab Mobile Phlebotomy [facility] [address] [place] [address] [facility] [address] [place], [place] [address] 12/11/2023 7:00 AM EDT Laboratory Lab Mobile Phlebotomy [facility] [address] [place] [address] [facility] [address] [place] [address] 12/12/2023 11:15 AM EDT Office Visit Hematology/Oncology [facility] 200 [facility] [place] [phone] Morgan Vásquez MD 200 [facility] [place] [address] 12/12/2023 11:45 AM EDT Hem/Onc Treatment Hematology/Oncology Treatment, [place] 200 [place] [phone] 12/18/2023 7:05 AM EDT Laboratory Lab Mobile Phlebotomy [facility] [address] [place], [place] [address] [facility] [address] [place] [address] 12/25/2023 7:05 AM EDT Laboratory Lab Mobile Phlebotomy [facility] [address] [place] [address] [facility] [address] [place] [address] 01/01/2024 7:05 AM EDT Laboratory Lab Mobile Phlebotomy [facility] [address] [place] [address] [facility] [address] [place] [address] 01/08/2024 7:00 AM EDT Laboratory Lab Mobile Phlebotomy [facility] [address] [place] [address] [facility] [address] [facility] [place] [address] 01/15/2024 7:05 AM EDT Laboratory Lab Mobile Phlebotomy [facility] [address] [place] [address] [facility] [address] [facility] [place] [address] 01/22/2024 7:05 AM EDT Laboratory Lab Mobile Phlebotomy [facility] [address] [place] [address] [facility] [address] [facility] [place] [address] 01/29/2024 7:05 AM EDT Laboratory Lab Mobile Phlebotomy [facility] [address] [place] [address] [facility] [address] [facility] [place] [address] 02/05/2024 7:00 AM EDT Laboratory Lab Mobile Phlebotomy [facility] [address] [facility] [place] [address] [facility] [address] [facility] [place] [address] 02/05/2024 8:40 AM EDT Office Visit Neurology [facility] 200 [facility] [place], [place] [address] Octavia Goins PA-C 200 [facility] [place] [address] 02/12/2024 7:05 AM EDT Laboratory Lab Mobile Phlebotomy [facility] [address] [place] [address] [facility] [address] [facility] [place] [address] 02/19/2024 7:05 AM EDT Laboratory Lab Mobile Phlebotomy [facility] [address] [place] [address] [facility] [address] [place] [address] 02/26/2024 7:05 AM EDT Laboratory Lab Mobile Phlebotomy [facility] [address] [place] [address] [facility] [address] [place] [address] 03/04/2024 7:00 AM EDT Laboratory Lab Mobile Phlebotomy [facility] [address] [place] [address] [facility] [address] [place] [address] 03/11/2024 7:05 AM EDT Laboratory Lab Mobile Phlebotomy [facility] [address] [place] [address] [facility] [address] [place] [address] 03/18/2024 7:05 AM EST Laboratory Lab Mobile Phlebotomy [facility] [address] [place] [address] [facility] [address] [place] [address] 03/25/2024 7:05 AM EST Laboratory Lab Mobile Phlebotomy [facility] [address] [place] [address] [facility] [address] [place] [address] 04/01/2024 7:00 AM EST Laboratory Lab Mobile Phlebotomy [facility] [address] [place] [address] [facility] [address] [place] [address] 04/08/2024 7:05 AM EST Laboratory Lab Mobile Phlebotomy [facility] [address] [place] [address] [facility] [address] [place] [address] 04/15/2024 7:05 AM EST Laboratory Lab Mobile Phlebotomy [facility] [address] [place] [address] [facility] [address] [place] [address] 04/22/2024 7:05 AM EST Laboratory Lab Mobile Phlebotomy [facility] [address] [place] [address] [facility] [address] [place] [address] 04/29/2024 7:05 AM EST Laboratory Lab Mobile Phlebotomy [facility] [address] [place], [place] [address] [facility] [address] [place] [address] 05/05/2024 7:05 AM EST Laboratory Lab Mobile Phlebotomy [facility] [address] [place] [address] [place], [place] [address] [facility] [address] [place] [address] 09/02/2024 8:20 AM EDT Office Visit Pulmonary Medicine, [facility] 132 [facility] [place] [address] [facility] [address] [facility] [address] 05/03/2025 7:40 AM EST Office Visit Dermatology [address] [place] [address] Albina Romo PA-C [address] [place] [address] [place] [address] Health Maintenance Due Date Last Done Comments [...] this encounter Medical Devices Implanted Type Area Control Operator Device Identifier Shelf Expiration Date Model / Serial / Lot Mesh Plug Xlarge [id number] - [id number] Implanted:Qty: 1 on 12/09/2020 by John Zaragoza MD at [facility] Left: Demond RIVAS BARD : DAVOL 05/09/2023 [id number] / / [id number] documented as of this encounter Visit Diagnoses [...] ONCE PRN Other, Hypersensitivity Reaction, Starting on Sat11/07/23 at 0842, Until Sat11/08/23 at 0841, For 24 hours EPINEPHrine 1 MG/ML inj 0.3 mg 0.3 mg, Intramuscular, ONCE PRN Other, Hypersensitivity Reaction or Anaphylaxis, Starting on Sat11/07/23 at 0842, Until Sat11/08/23 at 0841, For 24 hours hEParin 100 UNIT/ML Lock Flush inj 500 Units 500 Units (5 mL), IV Lock, PRN Other, IV Flush, Starting on Sat11/07/23 at 0842, Until Sat11/08/23 at 0841, For 24 hours, Do not flush if lock, PICC, or central line not in place; IV infusing or unable to flush. Hydrocortisone Sod Suc (PF) (Solu-Cortef) inj 100 mg 100 mg, IV Push, ONCE PRN Other, Hypersensitivity Reaction, Starting on Sat11/07/23 at 0842, Until Sat11/08/23 at 0841, For 24 hours meperidine (Demerol) 25 MG/ML inj 25 mg 25 mg, IV Push, ONCE PRN Shivering, Starting on Sat11/07/23 at 0842, Until Sat11/08/23 at 0841, For 24 hours NSS infusion FOR HYDRATION Intravenous, at 50 mL/hr Administer over 10 Hours, CONTINUOUS, Starting on Sat11/07/23 at 0915, Until Discontinued Start Infusion 11/07/2023 9:13 AM EDT 500 mL 50 mL/hr sodium chloride 0.9 % flush central line 10 mL 10 mL, IV Push, PRN Other, IV Flush, Starting on Sat11/07/23 at 0842, Until Sat11/08/23 at 0841, For 24 hours, Do not flush if [...] of Attor coco? No Care Teams Director Talent Relationship Specialty Start Date End Date Michael Collins MD [address] [place] [address] [place] [address] PCP - General Internal Medicine 03/01/14 documented as of this encounter
--- OUTSIDE RECORDS SUMMARY | 2024-03-26 16:33 | External Medical Summary ---
Author Name Unknown Address Unknown Organization K01:LABORATORY [facility] [place] - [address] [facility] [address] Laboratory Report Ordering Provider Test Date Status KALPESH SERRANO 10/30/2023 08:25:00 Final Observation Date Value Abnormality Reference (Units ) Status WBC, Total 10/30/2023 08:25:00 6.66 4.00-10.80 (K/uL) Final RBC 10/30/2023 08:25:00 4.27 4.50-5.25 (M/uL) Final Hemoglobin 10/30/2023 08:25:00 14.9 14.0-16.8 (g/dL) Final HCT 10/30/2023 08:25:00 45.2 40.0-48.4 (%) Final MCV 10/30/2023 08:25:00 105.9 82.0-99.5 (fL) Final MCH 10/30/2023 08:25:00 34.9 27.0-34.0 (pg) Final MCHC 10/30/2023 08:25:00 33.0 32.0-36.0 (g/dL) Final RDW 10/30/2023 08:25:00 14.3 11.5-15.5 (%) Final Platelets 10/30/2023 08:25:00 132 Below low normal 140-400 (K/uL) Final MPV 10/30/2023 08:25:00 10.6 6.6-11.1 (fL) Final Nucleated erythrocytes/100 leukocytes [Ratio] in Blood by Automated count 10/30/2023 08:25:00 0 <=0 (/100 WBCs) Final Performing Location LABORATORY [facility] [place] - [address] [place] [address]
--- OUTSIDE RECORDS SUMMARY | 2024-03-26 16:33 | External Medical Summary ---
Author Name Unknown Address Unknown Organization K01:LABORATORY [facility] [place] - [address] [facility] [place] [address] Laboratory Report Ordering Provider Test Date Status KALPESH SERRANO 11/06/2023 08:13:00 Final Observation Date Value Abnormality Reference (Units ) Status SYNC LEUKOCYTES IN BLOOD BY AUTOMATED COUNT 11/06/2023 08:13:00 6.35 4.00-10.80 (K/uL) Final Segs 11/06/2023 08:13:00 69.2 40.0-75.0 (%) Final Lymphs % 11/06/2023 08:13:00 17.5 Below low normal 18.0-42.0 (%) Final Monos 11/06/2023 08:13:00 10.6 1.0-11.0 (%) Final Eosinophils 11/06/2023 08:13:00 1.6 0.0-6.0 (%) Final Basos 11/06/2023 08:13:00 0.3 0.0-2.0 (%) Final Immature Granulocyte, Percent 11/06/2023 08:13:00 0.8 0.0-2.0 (%) Final Absolute Segs 11/06/2023 08:13:00 4.40 1.80-7.70 (K/uL) Final Lymphs, absolute 11/06/2023 08:13:00 1.11 1.00-4.80 (K/ul) Final Monos, Abs 11/06/2023 08:13:00 0.67 0.00-1.10 (K/uL) Final Eos, Abs 11/06/2023 08:13:00 0.10 0.00-0.70 (K/uL) Final Basos, Abs 11/06/2023 08:13:00 0.02 0.00-0.20 (K/uL) Final Immature Granulocytes, Number 11/06/2023 08:13:00 0.05 0.00-0.20 (K/uL) Final Performing Location [facility]ORY [facility] [place] - [address] [facility] [address]
--- OUTSIDE RECORDS SUMMARY | 2024-03-26 16:33 | External Medical Summary ---
Author Name Unknown Address Unknown Organization K01:LABORATORY [facility] [place] - [address] [facility] [address] Laboratory Report Ordering Provider Test Date Status KALPESH SERRANO 11/13/2023 07:55:00 Final Observation Date Value Abnormality Reference (Units ) Status WBC, Total 11/13/2023 07:55:00 4.43 4.00-10.80 (K/uL) Final RBC 11/13/2023 07:55:00 4.11 4.50-5.25 (M/uL) Final Hemoglobin 11/13/2023 07:55:00 14.6 14.0-16.8 (g/dL) Final HCT 11/13/2023 07:55:00 43.1 40.0-48.4 (%) Final MCV 11/13/2023 07:55:00 104.9 82.0-99.5 (fL) Final MCH 11/13/2023 07:55:00 35.5 27.0-34.0 (pg) Final MCHC 11/13/2023 07:55:00 33.9 32.0-36.0 (g/dL) Final RDW 11/13/2023 07:55:00 14.3 11.5-15.5 (%) Final Platelets 11/13/2023 07:55:00 132 Below low normal 140-400 (K/uL) Final MPV 11/13/2023 07:55:00 10.2 6.6-11.1 (fL) Final Nucleated erythrocytes/100 leukocytes [Ratio] in Blood by Automated count 11/13/2023 07:55:00 0 <=0 (/100 WBCs) Final Performing Location LABORATORY [facility] [place] - [address] [place] [address]
--- OUTSIDE RECORDS SUMMARY | 2024-03-26 16:33 | External Medical Summary | Summary of Care ---
Author Name Unknown Organization [facility] Address [address] [facility] [place] [address] Phone [phone] Care Team Providers Care Contract Attorney Name Role Phone Michael Collins MD Primary Care Provi zehra Reason for Visit * Reason Comments Chemotherapy Cytoxan. * Episode Based Medications (Routine) - Authorized Specialty Diagnoses / Procedures Referred By Contac t Referred To Contact Diagnoses Multiple myeloma not having achieved remission (HCC) Procedures ID DARATUMUMAB, HYALURONIDASE ID INJ, CYCLOPHOSPHAMIDE, NOS Morgan Vásquez MD [address] [place] [address] Anc Hem/Onc Amena You DEPT CLOSED - 03/26/23 [facility] [place] [address] Referral ID Status Reason Start Date Expiration Date V isits Requested Visits Authorized [id number] Authorized 05/28/2022 05/12/2099 99 99 Encounter Details Date Type Department Care Team (Latest Contact Info) Description 10/31/2023 8:45 AM EDT Hem/Onc Treatment Hematology/Oncolog y Treatment, [place] [address] [place] [address] Kenyatta, Chair 2 Hem Onc Scenery [address] [place] [address] Multiple myeloma not having achieved remission (HCC)*; Encounter for antineoplastic chemotherapy Allergies No known active allergiesdocumented as of this encounter (statuses as of 10/31/2023) Medications Medication Sig Dispensed Refills Start Date End Date Status THEOPHYLLINE ER 450 MG PO [id number]:2 tablet at bedtime Take by mouth. Indications: [...] at bedtime. PATIENT INFORMATION: Kris Galvin [address] [place] [address] [employer]: [employer]op[employer] ePrint ORDER: Please start nocturnal oxygen via nasal [...] signed) Ish Caba MD Pulmonary Medicine, [address] [place] [address] [place] [facility] Medical License Number: [id number] 1 Each 09/21/2022 Active metFORMIN HCl ER [...] as of this encounter (statuses as of 10/31/2023) Active Problems Problem Noted Date Diagnosed Date [...] as of this encounter (statuses as of 10/31/2023) Resolved Problems Problem Noted Date Diagnosed Date Resolved Date Asthma in remission 08/28/2022 08/29/19 Asthma, mild persistent 08/28/202208/11 Asthma, severe persistent 08/28/2022 Stem cell transplant candidate 08/17/2019 09/02/2019 documented as of this encounter (statuses as of 10/31/2023) Immunizations Name Administration Dates Next Due COVID-19 mRNA, LNP-s, No Pre serve, 2-Dose Series ([employer]) 01/17/2021,08/05/2020,07/08/2020 COVID-19, LNP-s, No Preserve , Bryant-sucrose, Ages 12+ ([employer]) 09/26/2021 DTaP Dipth/Tet/Acell Pertussis ([employer]), Peds 02/23/2021,11/11/2020,09/09/2020 [...] Care Team (Late st Contact Info) Description 11/06/2023 7:05 AM EDT Laboratory Lab Mobile Phlebotomy MV [address] [facility], [place] [id number] Mvmg, Gml Mobile Home Draw [address] [place] [address] 11/07/2023 8:45 AM EDT Hem/Onc Treatment Hematology/Oncology Treatment, [place] [address] [place] [phone] Park, Chair 9 Hem Onc Scenery 200 [place] [address] 11/08/2023 9:40 AM EDT Office Visit Rheumatology [address] [place] [phone] Darnell Higgins MD [address] [place] [address] 11/13/2023 7:00 AM EDT Laboratory Lab Mobile Phlebotomy MVMG [address] [place] [address] Mvmg, Gml Mobile Home Draw [address] [place] [address] 11/15/2023 8:30 AM EDT Hem/Onc Treatment Hematology/Oncology Treatment, [place] 200 [place] [phone] Kenyatta, Chair 11 Hem Onc Scenery 200 [place] [address] 11/20/2023 7:05 AM EDT Laboratory Lab Mobile Phlebotomy MVMG [address] [place] [address] Mvmg, Gml Mobile Home Draw [address] [place] [address] 11/27/2023 7:05 AM EDT Laboratory Lab Mobile Phlebotomy MVMG [address] [place] [address] Mvmg, Gml Mobile Home Draw [address] [place] [address] 12/04/2023 7:05 AM EDT Laboratory Lab Mobile Phlebotomy MVMG [address] [place] [address] Mvmg, Gml Mobile Home Draw [address] [place], [place] [address] 12/11/2023 7:00 AM EDT Laboratory Lab Mobile Phlebotomy MVMG [address] [place], [place] [address] Mvmg, Gml Mobile Home Draw [address] [place], [place] [address] 12/12/2023 11:15 AM EDT Office Visit Hematology/Oncology [facility] 200 [facility] [place], [place] [phone] Morgan Vásquez MD 200 [place] [address] 12/12/2023 11:45 AM EDT Hem/Onc Treatment Hematology/Oncology Treatment, [place] 200 [facility], [place] [phone] 12/18/2023 7:05 AM EDT Laboratory Lab Mobile Phlebotomy MVMG [address] [place], [place] [address] Mvmg, Gml Mobile Home Draw [address] [place], [place] [address] 12/25/2023 7:05 AM EDT Laboratory Lab Mobile Phlebotomy MVMG [address] [place] [address] Mvmg, Gml Mobile Home Draw [address] [place] [address] 01/01/2024 7:05 AM EDT Laboratory Lab Mobile Phlebotomy MVMG [address] [place] [address] Mvmg, Gml Mobile Home Draw [address] [place] [address] 01/08/2024 7:00 AM EDT Laboratory Lab Mobile Phlebotomy MVMG [address] [place] [address] Mvmg, Gml Mobile Home Draw [address] [place] [address] 01/15/2024 7:05 AM EDT Laboratory Lab Mobile Phlebotomy M[facility] [address] [place] [address] Mvmg, Gml Mobile Home Draw [address] [place] [address] 01/22/2024 7:05 AM EDT Laboratory Lab Mobile Phlebotomy M[facility] [address] [place] [address] Mvmg, Gml Mobile Home Draw [address] [facility] [place] [address] 01/29/2024 7:05 AM EDT Laboratory Lab Mobile Phlebotomy MVMG [address] [employer] [address] Mvmg, Gml Mobile Home Draw [address] [facility] [place] [address] 02/05/2024 7:00 AM EDT Laboratory Lab Mobile Phlebotomy MVMG [address] [place] [address] Mvmg, Gml Mobile Home Draw [address] [facility] [place] [address] 02/05/2024 8:40 AM EDT Office Visit Neurology [facility] 200 [facility] [place] [address] Octavia Goins PA-C 200 [facility] [place] [address] 02/12/2024 7:05 AM EDT Laboratory Lab Mobile Phlebotomy MVMG [address] [place] [address] Mvmg, Gml Mobile Home Draw [address] [facility] [place] [address] 02/19/2024 7:05 AM EDT Laboratory Lab Mobile Phlebotomy MVMG [address] [place] [address] Mvmg, Gml Mobile Home Draw [address] [place] [address] 02/26/2024 7:05 AM EDT Laboratory Lab Mobile Phlebotomy MVMG [address] [facility] [place] [address] Mvmg, Gml Mobile Home Draw [address] [facility] [place] [address] 03/04/2024 7:00 AM EDT Laboratory Lab Mobile Phlebotomy MVMG [address] [facility] [place] [address] Mvmg, Gml Mobile Home Draw [address] [facility] [place] [address] 03/11/2024 7:05 AM EDT Laboratory Lab Mobile Phlebotomy MVMG [address] [facility] [place] [address] Mvmg, Gml Mobile Home Draw [address] [facility] [place] [address] 03/18/2024 7:05 AM EST Laboratory Lab Mobile Phlebotomy MVMG [address] [facility] [place] [address] Mvmg, Gml Mobile Home Draw [address] [facility] [place] [address] 03/25/2024 7:05 AM EST Laboratory Lab Mobile Phlebotomy MVMG [address] [facility] [place] [address] Mvmg, Gml Mobile Home Draw [address] [facility] [place] [address] 04/01/2024 7:00 AM EST Laboratory Lab Mobile Phlebotomy MVMG [address] [facility] [place] [address] Mvmg, Gml Mobile Home Draw [address] [facility] [place] [address] 04/08/2024 7:05 AM EST Laboratory Lab Mobile Phlebotomy MVMG [address] [facility] [place] [address] Mvmg, Gml Mobile Home Draw [address] [facility] [place] [address] 04/15/2024 7:05 AM EST Laboratory Lab Mobile Phlebotomy MVMG [address] [facility] [place] [address] Mvmg, Gml Mobile Home Draw [address] [facility] [place] [address] 04/22/2024 7:05 AM EST Laboratory Lab Mobile Phlebotomy MVMG [address] [facility] [place] [address] Mvmg, Gml Mobile Home Draw [address] [place] [address] 04/29/2024 7:05 AM EST Laboratory Lab Mobile Phlebotomy MVMG [address] [facility] [employer] [facility] [place] [address] Mvmg, Gml Mobile Home Draw [address] [facility] [place] [address] 05/05/2024 7:05 AM EST Laboratory Lab Mobile Phlebotomy MVMG [address] [facility] [place] [address] Mvmg, Gml Mobile Home Draw [address] [facility] [place] [address] 09/02/2024 8:20 AM EDT Office Visit Pulmonary Medicine, [facility] [address] [facility] [place] [address] Ish Caba MD [address] [place] [address] 05/03/2025 7:40 AM EST Office Visit Dermatology [address] [place] [address] Albina Romo PA-C [address] [place] [address] [place] [address] Health Maintenance Due Date Last Done Comments Depression Screening 1976 Albumin/Creatinine Ratio 1982 Cologuard 2009 Fecal Occult Blood Test 2009 Sigmoidoscopy 2009 COVID-19 Vaccine ( season) 2023 01/28/2022, 09/26/2021, 01/17/2021, Additional history exists Colonoscopy 03/03/2023 03/03/2018, 03/03/2018 Colorectal Cancer Screening 03/03/2023 GFR 10/29/2024 10/30/2023, 10/11, 10/16/2023, Additional history exists Lipid Panel 11/18/2024 11/19/2019, 07/11, 07/29/2009 Diabetes Screening 10/29/2026 10/30/2023, 0 10/23/2023, 10/16/2023, Additional history exists DTaP,Tdap,and Td Vaccines (4 [...] encounter Medical Devices Implanted Type Area Filler Shredder Device Identifier Shelf Expiration Date Model / Serial / Lot Mesh Plug Xlarge [id number] - [id number] Implanted:Qty: 1 on 12/09/2020 by John Zaragoza MD at OR [facility] Left: Groin CR BARD : DAVOL 05/09/2023 [id number] / / [id number] documented as of this encounter Visit Diagnoses [...] ONCE PRN Other, Hypersensitivity Reaction, Starting on Sat10/31/23 at 0845, Until Sat11/01/23 at 0844, For 24 hours EPINEPHrine 1 MG/ML inj 0.3 mg 0.3 mg, Intramuscular, ONCE PRN Other, Hypersensitivity Reaction or Anaphylaxis, Starting on Lilibeth 10/31/23 at 0845, Until Sat11/01/23 at 0844, For 24 hours hEParin 100 UNIT/ML Lock Flush inj 500 Units 500 Units (5 mL), IV Lock, PRN Other, IV Flush, Starting on Sat10/31/23 at 0845, Until Sat11/01/23 at 0844, For 24 hours, Do not flush if lock, PICC, or central line not in place; IV infusing or unable to flush. Hydrocortisone Sod Suc (PF) (Solu-Cortef) inj 100 mg 100 mg, IV Push, ONCE PRN Other, Hypersensitivity Reaction, Starting on Sat10/31/23 at 0845, Until Sat11/01/23 at 0844, For 24 hours meperidine (Demerol) 25 MG/ML inj 25 mg 25 mg, IV Push, ONCE PRN Shivering, Starting on Sat10/31/23 at 0845, Until Sat11/01/23 at 0844, For 24 hours NSS infusion FOR HYDRATION Intravenous, at 50 mL/hr Administer over 10 Hours, CONTINUOUS, Starting on Sat10/31/23 at 0930, Until Discontinued Start Infusion 10/31/2023 9:02 AM EDT 500 mL 50 mL/hr sodium chloride 0.9 % flush central line 10 mL 10 mL, IV Push, PRN Other, IV Flush, Starting on Sat10/31/23 at 0845, Until Sat11/01/23 at 0844, For 24 hours, Do not [...] 40 mg 40 mg, Oral, ONCE, On Lliibeth 10/31/23 at 0930, For 1 dose Given 10/31/2023 9:03 AM EDT 40 mg NSS infusion FOR HYDRATION Intravenous, at 500 mL/hr Administer over 2 Hours, ONCE, 1 dose, On Lilibeth 10/31/23 at 0930 Start Infusion 10/31/2023 9:02 AM EDT 1,000 mL 500 mL/hr ondansetron [...] Power of Attor coco? No Care Teams Contract Attorney Relationship Specialty Start Date End Date Michael Collins MD [address] [place] [address] [place] [id number] PCP - General Internal Medicine 03/01/14 documented as of this encounter
--- OUTSIDE RECORDS SUMMARY | 2024-03-26 16:33 | External Medical Summary ---
Author Name Unknown Address Unknown Organization K01:[facility] [place] [address] [place] [address] Laboratory Report Ordering Provider Test Date Status KALPESH SERRANO 11/13/2023 07:55:00 Final Observation Date Value Abnormality Reference (Units ) Status IgG 11/13/2023 07:55:00 [id number] ( mg/dL) Final IgA 11/13/2023 07:55:00 16 Below low normal 70- 400 (mg/dL) Final IgM 11/13/2023 07:55:00 11 Below low normal 40- 230 (mg/dL) Final Performing Location LABORATORY C - [address] [place] [address]
--- OUTSIDE RECORDS SUMMARY | 2024-03-26 16:33 | External Medical Summary | Summary of Care ---
Author Name Unknown Organization [facility] Address [address] [facility] [place] [address] Phone [phone] Care Team Providers Care Sportspersons Name Role Phone Michael Collins MD Primary Care Provi zehra Reason for Visit * Reason Onset Date Comments Oxygen Assessment 08/07/2023 NPO Encounter Details Date Type Department Care Team (Late st Contact Info) Description 08/07/2023 Telephone Pulmonary Medicine, [facility] 132 [facility] [place] [phone] [facility]aba [facility] [address] [facility] [phone] O[facility] Assessment (NPO) Allergies No known active allergiesdocumented as of this encounter (statuses as of 11/06/2023) Medications Medication Sig Dispensed Refills Start Date End Date Status THEOPHYLLINE ER 450 MG PO [id number]:2 tablet at bedtime Take by mouth. Indications: 2 tablet at bedtime Active B COMPLEX FORMULA 1 PO TABS 1 daily Active MULTIVITAMINS PO CAPS 1 daily Active FOLIC ACID 1 MG PO TABS Take by mouth daily. Acti ve METOPROLOL XL TBCR 50 MG OR 1 tab daily 05/25/2014 Active hydrochlorothiazide (HYDRODIURIL) 25 MG Tablet Take 1 [...] Tablet by mouth in the morning. Active Diphenoxylate-Atropi ne 2.5-0.025 MG Oral Tablet (Lomotil)Indications :Multiple myeloma in remission (HCC),Diarrhea, unspecified type TAKE 1 TABLET BY MOUTH 4 TIMES A DAY NEEDED FOR DIARRHEA 60 Tab 02/07/2021 Active Sildenafil Citrate 100 MG Oral Tablet 03/29/2021 Active Clobetasol Propionate 0.05 % External Ointment (Temovate)Indication s:Skin rash Apply topically to affected area 2 times a day . 30 g 2 03/01/2022 Active B Complex Formula 1 (Lipotrop) Oral Tablet Active Levalbuterol HCl 1.25 MG/3ML Inhalation Nebulization Solution (Xopenex) INHALE CONTENTS OF 1 VIAL (3ML) EVERY 6 HOURS 05/31/2022 Active oxygen IN GAS Administer 2 L/min(Oxygen) into nostril at bedtime. PATIENT INFORMATION: Kris Galvin [address] [place] [address] [employer]: [employer]/TBD ORDER: Please start nocturnal oxygen via nasal [...] the best of my knowledge. (electronically signed) Ihs Caba MD Pulmonary Medicine, [address] [place] [address] [place] [facility] Medical License Number: [id number] 1 Each 09/21/2022 Active metFORMIN HCl ER (OSM) 500 MG Oral Tablet Extended Release 24 Hour 1 Tablet. 01/09/2023 Active oxyCODONE HCl 5 MG Oral Tablet (Oxy IR) TAKE 1 TAB BY MOUTH EVERY 6 HOURS NEEDED FOR PAIN Active Triamcinolone Acetonide 0.1 % External Cream (Aristocort) Apply 2x daily to rashes areas on trunk/arms/legs during winter time mostly. 454 g 04/29/2023 Active Hospital, Clinic, or Other Facility Administered [...] as of this encounter (statuses as of 11/06/2023) Active Problems Problem Noted Date Diagnosed Date [...] as of this encounter (statuses as of 11/06/2023) Resolved Problems Problem Noted Date Diagnosed Date Resolved Date Asthma in remission 08/28/2022 08/29/19 Asthma, mild persistent 08/28/202208/11 Asthma, severe persistent 08/28/2022 Stem cell transplant candidate 08/17/2019 09/02/2019 documented as of this encounter (statuses as of 11/06/2023) Immunizations Name Administration Dates Next Due COVID-19 mRNA, LNP-s, No Pre serve, 2-Dose Series ([employer]) 01/17/2021,08/05/2020,07/08/2020 COVID-19, LNP-s, No Preserve , [...] encounter Miscellaneous Notes * Telephone Encounter - Neelima Wolfe LPN - 08/07/2023 9:29 AM EDT Pt's NPO results have been scanned into the chart. Please review and advise documented in this encounter Plan of Treatment Upcoming Encounters Date Type Department Care Team (Late st Contact Info) Description 11/07/2023 8:45 AM EDT Hem/Onc Treatment Hematology/Oncology Treatment, [place] [address] [place] [phone] Kenyatta, Chair 9 Hem Onc [facility] [address] [facility] [place] [address] 11/08/2023 9:40 AM EDT Office Visit Rheumatology [address] [place] [phone] Darnell Higgins MD [address] [facility] [place] [address] 11/13/2023 7:00 AM EDT Laboratory Lab Mobile Phlebotomy MVMG [address] [place], [place] [address] Mvmg, Gml Mobile Home Draw [address] [place], [place] [address] 11/15/2023 8:30 AM EDT Hem/Onc Treatment Hematology/Oncology Treatment, [place] [address] [place] [phone] Park, Chair 11 Hem Onc [facility] 200 [place] [address] 11/20/2023 7:05 AM EDT Laboratory Lab Mobile Phlebotomy MVMG [address] [place], [place] [address] Mvmg, Gml Mobile Home Draw [address] [place], [place] [address] 11/27/2023 7:05 AM EDT Laboratory Lab Mobile Phlebotomy MVMG [address] [place] [address] Mvmg, Gml Mobile Home Draw [address] [facility] [place] [address] 12/04/2023 7:05 AM EDT Laboratory Lab Mobile Phlebotomy MVMG [address] [facility] [place] [address] Mvmg, Gml Mobile Home Draw [address] [place] [address] 12/11/2023 7:00 AM EDT Laboratory Lab Mobile Phlebotomy M[facility] [address] [place] [address] Mvmg, Gml Mobile Home Draw [address] [facility] [place] [address] 12/12/2023 11:15 AM EDT Office Visit Hematology/Oncology [facility] [place] 200 [place] [phone] Morgan Vásquez MD [address] [place] [address] 12/12/2023 11:45 AM EDT Hem/Onc Treatment Hematology/Oncology Treatment, [place] [address] [place] [facility] [place] [phone] 12/18/2023 7:05 AM EDT Laboratory Lab Mobile Phlebotomy M[facility] [address] [place] [address] Mvmg, Gml Mobile Home Draw [address] [facility] [place] [address] 12/25/2023 7:05 AM EDT Laboratory Lab Mobile Phlebotomy M[facility] [address] [place] [address] Mvmg, Gml Mobile Home Draw [address] [facility] [place] [address] 01/01/2024 7:05 AM EDT Laboratory Lab Mobile Phlebotomy M[facility] [address] [place] [address] Mvmg, Gml Mobile Home Draw [address] [facility] [place] [address] 01/08/2024 7:00 AM EDT Laboratory Lab Mobile Phlebotomy M[facility] [address] [place] [address] Mvmg, Gml Mobile Home Draw [address] [facility] [place] [address] 01/15/2024 7:05 AM EDT Laboratory Lab Mobile Phlebotomy M[facility] [address] [place] [address] Mvmg, Gml Mobile Home Draw [address] [facility] [place] [address] 01/22/2024 7:05 AM EDT Laboratory Lab Mobile Phlebotomy M[facility] [address] [place] [address] Mvmg, Gml Mobile Home Draw [address] [facility] [place] [address] 01/29/2024 7:05 AM EDT Laboratory Lab Mobile Phlebotomy M[facility] [address] [place] [address] Mvmg, Gml Mobile Home Draw [address] [place] [address] 02/05/2024 7:00 AM EDT Laboratory Lab Mobile Phlebotomy MVMG [address] [place], [place] [address] Mvmg, Gml Mobile Home Draw [address] [place] [address] 02/05/2024 8:40 AM EDT Office Visit Neurology [facility] 200 [facility] [place], [place] [address] Octavia Goins PA-C [address] [facility] [place], [place] [address] 02/12/2024 7:05 AM EDT Laboratory Lab Mobile Phlebotomy MVMG [address] [place], [place] [address] Mvmg, Gml Mobile Home Draw [address] [place], [place] [address] 02/19/2024 7:05 AM EDT Laboratory Lab Mobile Phlebotomy M[facility]G [address] [place] [address] Mvmg, Gml Mobile Home Draw [address] [place] [address] 02/26/2024 7:05 AM EDT Laboratory Lab Mobile Phlebotomy MVMG [address] [place] [address] Mvmg, Gml Mobile Home Draw [address] [place] [address] 03/04/2024 7:00 AM EDT Laboratory Lab Mobile Phlebotomy MVMG [address] [place] [address] Mvmg, Gml Mobile Home Draw [address] [place] [address] 03/11/2024 7:05 AM EDT Laboratory Lab Mobile Phlebotomy M[facility]G [address] [place] [address] Mvmg, Gml Mobile Home Draw [address] [place] [address] 03/18/2024 7:05 AM EST Laboratory Lab Mobile Phlebotomy MVMG [address] [place] [address] Mvmg, Gml Mobile Home Draw [address] [place] [address] 03/25/2024 7:05 AM EST Laboratory Lab Mobile Phlebotomy MVMG [address] [place] [address] Mvmg, Gml Mobile Home Draw [address] [place] [address] 04/01/2024 7:00 AM EST Laboratory Lab Mobile Phlebotomy MVMG [address] [place] [address] Mvmg, Gml Mobile Home Draw [address] [place] [address] 04/08/2024 7:05 AM EST Laboratory Lab Mobile Phlebotomy MVMG [address] [place] [address] Mvmg, Gml Mobile Home Draw [address] [place] [address] 04/15/2024 7:05 AM EST Laboratory Lab Mobile Phlebotomy MVMG [address] [place] [address] Mvmg, Gml Mobile Home Draw [address] [place] [address] 04/22/2024 7:05 AM EST Laboratory Lab Mobile Phlebotomy MVMG [address] [place] [address] Mvmg, Gml Mobile Home Draw [address] [place] [address] 04/29/2024 7:05 AM EST Laboratory Lab Mobile Phlebotomy MVMG [address] [place] [address] Mvmg, Gml Mobile Home Draw [address] [place] [address] 05/05/2024 7:05 AM EST Laboratory Lab Mobile Phlebotomy MVMG [address] [place] [address] Mvmg, Gml Mobile Home Draw [address] [employer] [place] [address] 09/02/2024 8:20 AM EDT Office Visit Pulmonary Medicine, [facility] [address] [place] [address] Ish Caba MD [address] [facility] [place] [address] 05/03/2025 7:40 AM EST Office Visit Dermatology [address] [place] [address] Albina Romo PA-C [address] [place] [address] [place] [address] Health Maintenance Due Date Last Done Comments [...] this encounter Medical Devices Implanted Type Area Vision Impaired Teacher Device Identifier Shelf Expiration Date Model / Serial / Lot Mesh Plug Xlarge [id number] - [id number] Implanted:Qty: 1 on 12/09/2020 by John Zaragoza MD at OR [facility] Left: Groin CR BARD : DAVOL 05/09/2023 [id number] / / [id number] documented as of this encounter Advance Directives [...] Power of Attor coco? No Care Teams Sportspersons Relationship Specialty Start Date End Date Michael Collins MD [address] [place] [address] [place] [address] PCP - General Internal Medicine 03/01/14 documented as of this encounter
--- OUTSIDE RECORDS SUMMARY | 2024-03-26 16:33 | External Medical Summary | Summary of Care ---
Author Name Unknown Organization [facility] Address [address] [facility] [place] [address] Phone [phone] Care Team Providers Care Filler Leaf Cutter Long Name Role Phone Michael Collins MD Primary Care Provi zehra Reason for Visit * Reason Onset Date Comments Follow Up 10/28/2023 S/P C1,D1 Cytoxa n Encounter Details Date Type Department Care Team (Late st Contact Info) Description 10/28/2023 Telephone Hematology/Oncology [facility] [place] [address] [facility] [place] [phone] Morgan Vásquez MD [facility] [address] Follow Up (S/P C1,D1 Cytoxan) Allergies No known active allergiesdocumented as of this encounter (statuses as of 10/28/2023) Medications Medication Sig Dispensed Refills Start Date End Date Status THEOPHYLLINE ER 450 MG PO [id number] tablet at bedtime Take by mouth. Indications: [...] nostril at bedtime. PATIENT INFORMATION: Kris Galvin [address] [place] [address] [employer]: [employer]/TBD ORDER: Please start nocturnal oxygen via nasal [...] signed) Ish Caba MD Pulmonary Medicine, [address] [place] [address] [place] [facility] Medical License Number: [id number] 1 Each 09/21/2022 Active metFORMIN HCl ER [...] as of this encounter (statuses as of 10/28/2023) Active Problems Problem Noted Date Diagnosed Date [...] as of this encounter (statuses as of 10/28/2023) Resolved Problems Problem Noted Date Diagnosed Date Resolved Date Asthma in remission 08/28/2022 08/29/19 Asthma, mild persistent 08/28/202208/11 Asthma, severe persistent 08/28/2022 Stem cell transplant candidate 08/17/2019 09/02/2019 documented as of this encounter (statuses as of 10/28/2023) Immunizations Name Administration Dates Next Due COVID-19 mRNA, LNP-s, No Pre serve, 2-Dose Series ([employer]) 01/17/2021,08/05/2020,07/08/2020 COVID-19, LNP-s, No Preserve , Bryant-sucrose, Ages 12+ (Pfizer) 09/26/2021 DTaP Dipth/Tet/Acell Pertussis (Infan[employer]), Peds 02/23/2021,11/11/2020,09/09/2020 HIB PRP-T, 4 dose (ActHib) 03/02/2021,11/11/2020 ,09/09/2020 Hepatitis B, 20+ yrs 02/23/2021,10/25/2020,09/09 IPV - [...] encounter Miscellaneous Notes * Telephone Encounter - Orville Lopez, JOHANN - 10/28/2023 8:20 AM EDT HEMATOLOGY/ONCOLOGY INITIAL CHEMO FOLLOW-UP Post chemo side effects: Nausea - is taking his anti-emetics with effect. Understands post treatment medications: Yes Understands to call office prior to ER visit/or with issues: Yes Aware of next appointment: Yes Additional information: Pt denies issues regarding constipation/diarrhea. Taking a stool softener daily with effect. Denies any further issues at this time. documented in this encounter Plan of Treatment Upcoming Encounters Date Type Department Care Team (Late st Contact Info) Description 10/30/2023 7:05 AM EDT Laboratory Lab Mobile Phlebotomy [facility] [address] [place] [address] [facility] [address] [place] [address] 10/31/2023 8:45 AM EDT Hem/Onc Treatment Hematology/[address]cology [address], [address] [phone] Park, Chair 2 Hem On[address] [place] [address] 11/06/2023 7:05 AM EDT Laboratory Lab Mobile Phlebotomy [facility] [address] [place] [address] [address] [facility] [address] [place] [address] 11/07/2023 8:45 AM EDT Hem/Onc Treatment Hematology/Oncology [address], [address] [phone] Park, Chair 9 Hem Onc Scenery [address] [place] [address] [place] [address] 11/08/2023 9:40 AM EDT Office Visit Rheumatology [address] [place] [phone] Darnell Higgins MD [address] [place] [address] 11/13/2023 7:00 AM EDT Laboratory Lab [facility] Phlebotomy [facility] [address] [place] [address] [address] [facility] [address] [place] [address] 11/15/2023 8:30 AM EDT [facility] [address] [place] [phone] Park, Chair 11 Hem Onc [facility] [address] [facility] [place] [address] 11/20/2023 7:05 AM EDT Laboratory Lab Mobile Phlebotomy [facility] [address] [place] [address] [facility] [address] [place] [address] 11/27/2023 7:05 AM EDT Laboratory Lab Mobile Phlebotomy [facility] [address] [place] [address] [facility] [address] [place] [address] 12/04/2023 7:05 AM EDT Laboratory Lab Mobile Phlebotomy [facility] [address] [place] [address] [facility] [address] [facility] [place] [address] 12/11/2023 7:00 AM EDT Laboratory Lab Mobile Phlebotomy [facility] [address] [place] [address] [facility] [address] [place] [address] 12/12/2023 11:15 AM EDT Office Visit Hematology/Oncology [facility] [place] [address] [place] [phone] Morgan Vásquez MD [address] [facility] [place] [address] 12/12/2023 11:45 AM EDT Hem/Onc Treatment Hematology/Oncology Treatment, [place] [address] [facility] [place] [address] 12/18/2023 7:05 AM EDT Laboratory Lab Mobile Phlebotomy [facility] [address] [place] [address] [facility] [address] [place] [address] 12/25/2023 7:05 AM EDT Laboratory Lab Mobile Phlebotomy [facility] [address] [place] [address] [facility] [address] [place] [address] 01/01/2024 7:05 AM EDT Laboratory Lab Mobile Phlebotomy [facility] [address] [place] [address] [facility] [address] [place] [address] 01/08/2024 7:00 AM EDT Laboratory Lab Mobile Phlebotomy [facility] [address] [place] [address] [facility] [address] [place] [address] 01/15/2024 7:05 AM EDT Laboratory Lab Mobile Phlebotomy [facility] [address] [place] [address] [facility] [address] [place] [address] 01/22/2024 7:05 AM EDT Laboratory Lab [facility]bot[facility] [address] [place] [address] [facility] [address] [place] [address] 01/29/2024 7:05 AM EDT Laboratory Lab [facility]lebot[facility] [address] [place] [address] [facility] [address] [place] [address] 02/05/2024 7:00 AM EDT Laboratory Lab Mobile Phlebotomy [facility] [address] [place] [address] [facility] [address] [facility] [place], [place] [address] 02/05/2024 8:40 AM EDT Office Visit Neurology [facility] [place] [address] [facility] [place], [place] [address] Octavia Goins PA-C [address] [facility] [place] [address] 02/12/2024 7:05 AM EDT Laboratory Lab Mobile Phlebotomy [facility] [address] [place], [place] [address] [facility] [address] [place] [address] 02/19/2024 7:05 AM EDT Laboratory Lab Mobile Phlebotomy [facility] [address] [place] [address] [facility] [address] [place] [address] 02/26/2024 7:05 AM EDT Laboratory Lab Mobile Phlebotomy [facility] [address] [place] [address] [facility] [address] [place] [address] 03/04/2024 7:00 AM EDT Laboratory Lab [facility] Phlebotomy [facility] [address] [place] [address] [facility] [address] [place] [address] 03/11/2024 7:05 AM EDT Laboratory Lab [facility] Phlebotomy [facility] [address] [place] [address] [facility] [address] [place] [address] 03/18/2024 7:05 AM EST Laboratory Lab [facility] Ph[facility]bot[facility] [address] [place] [address] [facility] [address] [place] [address] 03/25/2024 7:05 AM EST Laboratory Lab [facility]bot[facility] [address] [place] [address] [facility] [address] [place] [address] 04/01/2024 7:00 AM EST Laboratory Lab [facility] [address] [place] [address] [facility] [address] [place] [address] 04/08/2024 7:05 AM EST Laboratory Lab [facility] Phlebotomy [facility] [address] [place] [address] [facility] [address] [place] [address] 04/15/2024 7:05 AM EST Laboratory Lab [facility] Phlebot[facility] [address] [place] [address] [facility] [address] [place] [address] 04/22/2024 7:05 AM EST Laboratory Lab [facility] Phlebotomy [facility] [address] [place] [address] [facility] [address] [facility] [place] [address] 04/29/2024 7:05 AM EST Laboratory Lab [facility] Phlebot[facility] [address] [place] [address] [facility] [address] [place] [address] 05/05/2024 7:05 AM EST Laboratory Lab [facility] Phlebot[facility] [address] [place] [address] [facility] [address] [place] [address] 09/02/2024 8:20 AM EDT Office Visit Pulmonary Medicine, [facility] [address] [place] [address] Ish Caba MD [address] [place] [address] 05/03/2025 7:40 AM EST Office Visit Dermatology [address] [place] [address] Albina Romo PA-C [address] [place] [address] [place] [address] Health Maintenance Due Date Last Done Comments Depression Screening 1976 Albumin/Creatinine Ratio 1982 Cologuard 2009 Fecal Occult Blood Test 2009 Sigmoidoscopy 2009 COVID-19 Vaccine (2022- season) 2023 01/28/2022, 09/26/2021, 01/17/2021, Additional history exists Colonoscopy 03/03/2023 03/03/2018, 03/03/2018 Colorectal Cancer Screening 03/03/2023 GFR 10/22/2024 10/23/2023, 06/0 09/2023, 10/11/2023, Additional history exists Lipid Panel 11/18/2024 11/19/2019, 07/11, 07/29/2009 Diabetes Screening 10/22/2026 10/23/2023, 0 10/16/2023, 10/11/2023, Additional history exists DTaP,Tdap,and Td Vaccines (4 [...] encounter Medical Devices Implanted Type Area Rn Documentation Device Identifier Shelf Expiration Date Model / Serial / Lot Mesh Plug Xlarge [id number] - [id number] Implanted:Qty: 1 on 12/09/2020 by John Zaragoza MD at OR [facility] Left: Demond RIVAS BARD : LUCINDA 05/09/2023 [id number] / / [id number] documented as of this encounter Advance Directives [...] Power of Attor coco? No Care Teams Filler Leaf Cutter Long Relationship Specialty Start Date End Date Michael Collins MD [address] [place] [address] [place] [address] PCP - General Internal Medicine 03/01/14 documented as of this encounter
--- OUTSIDE RECORDS SUMMARY | 2024-03-26 16:33 | External Medical Summary ---
Author Name Unknown Address Unknown Organization [id number]:[facility] [place] - [address] [place] [address] Laboratory Report Ordering Provider Test Date Status KALPESH SERRANO 10/30/2023 08:25:00 Final Observation Date Value Abnormality Reference (Units ) Status SYNC LEUKOCYTES IN BLOOD BY AUTOMATED COUNT 10/30/2023 08:25:00 6.66 4.00-10.80 (K/uL) Final Segs 10/30/2023 08:25:00 71.4 40.0-75.0 (%) Final Lymphs % 10/30/2023 08:25:00 17.6 Below low normal 18.0-42.0 (%) Final Monos 10/30/2023 08:25:00 8.7 1.0-11.0 (%) Final Eosinophils 10/30/2023 08:25:00 1.7 0.0-6.0 (%) Final Basos 10/30/2023 08:25:00 0.3 0.0-2.0 (%) Final Immature Granulocyte, Percent 10/30/2023 08:25:00 0.3 0.0-2.0 (%) Final Absolute Segs 10/30/2023 08:25:00 4.76 1.80-7.70 (K/uL) Final Lymphs, absolute 10/30/2023 08:25:00 1.17 1.00-4.80 (K/ul) Final Monos, Abs 10/30/2023 08:25:00 0.58 0.00-1.10 (K/uL) Final Eos, Abs 10/30/2023 08:25:00 0.11 0.00-0.70 (K/uL) Final Basos, Abs 10/30/2023 08:25:00 0.02 0.00-0.20 (K/uL) Final Immature Granulocytes, Number 10/30/2023 08:25:00 0.02 0.00-0.20 (K/uL) Final Performing Location [facility] [place] - [address] [facility] [address]
--- OUTSIDE RECORDS SUMMARY | 2024-03-26 16:33 | External Medical Summary ---
Author Name Unknown Address Unknown Organization [id number]:[facility] [place] - [address] [facility] [place] [address] Laboratory Report Ordering Provider Test Date Status KALPESH SERRANO 11/13/2023 07:55:00 Final Observation Date Value Abnormality Reference (Units ) Status BUN 11/13/2023 07:55:00 21 Above high normal 6-20 (mg/dL) Final Creatinine 11/13/2023 07:55:00 1.0 0.6-1.2 (mg/dL) Final Glomerular filtration rate/1.73 sq M.predicted [Volume Rate/Area] in Serum, Plasma or Blood by Creatinine-based formula (CKD-EPI) 11/13/2023 07:55:00 >90 >=60 (mL/min) Final eGFR is calculated based on the CKD-EPI 2020 equation Sodium 11/13/2023 07:55:00 137 135-146 (m mol/L) Final Potassium 11/13/2023 07:55:00 3.7 3.5-5.1 (m mol/L) Final Cl 11/13/2023 07:55:00 99 98-107 (mm ol/L) Final CO2 11/13/2023 07:55:00 26 22-32 (mmo l/L) Final Anion gap 11/13/2023 07:55:00 12 7-15 (mmol /L) Final Glucose 11/13/2023 07:55:00 106 70-120 (mg /dL) Final Albumin 11/13/2023 07:55:00 4.5 3.8-5.0 (g /dL) Final AST (Aspartate aminotransferase) 11/13/2023 07:55:00 20 10-50 (U/L) Final Alk Phos 11/13/2023 07:55:00 114 35-130 (U/ L) Final Bilirubin, Total 11/13/2023 07:55:00 0.6 <=1 .2 (mg/dL) Final Calcium 11/13/2023 07:55:00 9.2 8.4-10.2 ( mg/dL) Final Protein 11/13/2023 07:55:00 6.7 6.0-8.3 (g /dL) Final ALT (Alanine aminotransferase) 11/13/2023 07:55:00 15 10-50 (U/L) Final Performing Location [facility] [place] - [address] [facility] [address]
--- OUTSIDE RECORDS SUMMARY | 2024-03-26 16:33 | External Medical Summary | Summary of Care ---
Author Name Unknown Organization [facility] Address [address] [facility] [place] [address] Phone [phone] Care Team Providers Care Gl Accountant Name Role Phone Michael Collins MD Primary Care Provi zehra Reason for Visit * Reason Onset Date Comments Forms Request 10/16/2023 Encounter Details Date Type Department Care Team (Late st Contact Info) Description 10/16/2023 Telephone Hematology/Oncology [facility] [place] 200 [facility] [place] [phone] Morgan [facility]quez [facility] [address] Forms Request Allergies No known active allergiesdocumented as of this encounter (statuses as of 10/23/2023) Medications Medication Sig Dispensed Refills Start Date End Date Status THEOPHYLLINE ER 450 MG PO [id number]:2 tablet at bedtime Take by mouth. Indications: [...] CAPS Take by mouth. Active Multiple Vitamins-Minerals ([facility]) CHEW Take by [...] nostril at bedtime. PATIENT INFORMATION: Kris Galvin [address] [place] [address] [employer]: Hactus/TBD ORDER: Please start nocturnal oxygen via nasal [...] (electronically signed) Ish Caba MD Pulmonary Medicine, [address] [place] [address] [place] [facility] Medical License Number: [id number] 1 Each 09/21/2022 Active metFORMIN HCl ER [...] 09/30/2023 Active dexAMETHasone 4 MG Oral Tablet (Decadron)Indicat [...] and 1 tab pm 60 Capsule 2 07/23/2023 4 Discontinu ed(Refill) Hospital, Clinic, or Other [...] as of this encounter (statuses as of 10/23/2023) Active Problems Problem Noted Date Diagnosed Date [...] as of this encounter (statuses as of 10/23/2023) Resolved Problems Problem Noted Date Diagnosed Date Resolved Date Asthma in remission 08/28/2022 08/29/19 Asthma, mild persistent 08/28/202208/11 Asthma, severe persistent 08/28/2022 Stem cell transplant candidate 08/17/2019 09/02/2019 documented as of this encounter (statuses as of 10/23/2023) Immunizations Name Administration Dates Next Due COVID-19 [...] encounter Miscellaneous Notes * Telephone Encounter - Marianne Ware LPN - 10/23/2023 3:13 PM EDT Late entry, 10/23/2023, 10:33 hours: Faxed completed form to [employer] at [phone], fax confirmation received. Form placed in Envelope at [employer]. Patient has appt with Treatment room tomorrow at 9:30 am. My G sent to patient. * Telephone Encounter - Marianne Ware LPN - 10/23/2023 7:27 AM EDT Form completed and awating MD signature. Will give patient original form back tomorrow (10/24/2023) when he comes in for treatment. * Telephone Encounter - Orville Lopez RN - 10/17/2023 10:07 AM EDT Advised patients that we have no received her FMLA forms at this time. Stated if she can get another copy of the forms and take them to [facility], they should be able to fax them directly to our office. Fax # to our office provided. * Telephone Encounter - Daya Gonzales OSA - 10/16/2023 11:08 AM EDT Pt mailed forms to us for FMLA or leave of absence medical certification - care of family member. Forms need to be filled out & pt would like a copy for themselves . Also, to have it faxed to [facility] before October 27 . The fax number is [phone]. pt would like the copy of the [place] paperwork joann mailed to them . Forms will be located in HEMO/CON mailbox in data entry email processor. Thank you documented in this encounter Plan of Treatment Upcoming Encounters Date Type Department Care Team (Late st Contact Info) Description 10/24/2023 9:30 AM EDT Hem/Onc Treatment Hematology/Oncology Treatment, [place] [address] [place] [address] 10/30/2023 7:05 AM EDT Laboratory [facility] [address] [place] [address] M[facility]mg, [facility] [address] [place] [address] 11/06/2023 7:05 AM EDT Laboratory [facility] [address] [place] [address] M[facility]mg, [facility] Draw [address] [facility] [place] [address] 11/08/2023 9:40 AM EDT Office Visit Rheumatology [address] [place] [phone] Darnell Higgins MD [address] [place] [address] 11/13/2023 7:00 AM EDT Laboratory [facility] [address] [place], [place] [address] M[facility]mg, Gml [facility] Draw [address] [facility] [place] [address] 11/15/2023 8:30 AM EDT Hem/Onc Treatment Hematology/Oncology Treatment, [place] [address] [place], [place] [phone] Park, Chair 11 Hem Onc Scenery 200 [facility] [place] [address] 11/20/2023 7:05 AM EDT Laboratory [facility] [address] [place] [address] Mvmg, Gml Mobile Home Draw [address] [facility] [place] [address] 11/27/2023 7:05 AM EDT Laboratory [facility] [address] [place] [address] Mvmg, Gml Mobile Home Draw [address] [place] [address] 12/04/2023 7:05 AM EDT Laboratory [facility] [address] [place] [address] Mvmg, Gml Mobile Home Draw [address] [place], [place] [address] 12/11/2023 7:00 AM EDT Laboratory [facility] [address] [place] [address] Mvmg, Gml Mobile Home Draw [address] [place], [place] [address] 12/12/2023 11:15 AM EDT Office Visit Hematology/Oncology [facility] 200 [facility] [place], [place] [phone] Morgan Vásquez MD 200 [facility] [place], [place] [address] 12/12/2023 11:45 AM EDT Hem/Onc Treatment Hematology/Oncology Treatment, [place] [address] [place], [place] [address] 12/18/2023 7:05 AM EDT Laboratory [facility] [address] [place], [place] [address] Mvmg, Gml Mobile Home Draw [address] [place], [place] [address] 12/25/2023 7:05 AM EDT Laboratory [facility] [address] [place], [place] [address] Mvmg, Gml Mobile Home Draw [address] [place] [address] 01/01/2024 7:05 AM EDT Laboratory [facility] [address] [place], [place] [address] Mvmg, Gml Mobile Home Draw [address] [place], [place] [address] 01/08/2024 7:00 AM EDT Laboratory [facility] [address] [place], [place] [address] Mvmg, Gml Mobile Home Draw [address] [place] [address] 01/15/2024 7:05 AM EDT Laboratory [facility] [address] [place] [address] Mvmg, Gml Mobile Home Draw [address] [place] [address] 01/22/2024 7:05 AM EDT Laboratory [facility] [address] [place] [address] Mvmg, Gml Mobile Home Draw [address] [place] [address] 01/29/2024 7:05 AM EDT Laboratory [facility] [address] [place] [address] Mvmg, Gml Mobile Home Draw [address] [place] [address] 02/05/2024 7:00 AM EDT Laboratory Lab [facility] [address] [place] [address] Mvmg, Gml Mobile Home Draw 25[address] [facility] [place] [address] 02/05/2024 8:40 AM EDT Office Visit Neurology [facility] 200 [facility] [place], [place] [address] Octavia Goins PA-C 200 [place] [address] 02/12/2024 7:05 AM EDT Laboratory [facility] [address] [place] [address] Mvmg, Gml Mobile Home Draw [address] [facility] [place] [address] 02/19/2024 7:05 AM EDT Laboratory [facility] [address] [place] [address] Mvmg, Gml Mobile Home Draw [address] [place] [address] 02/26/2024 7:05 AM EDT Laboratory Lab Mobile Phlebotomy [facility] [address]20 [place] [address] Mvmg, Gml Mobile Home Draw [address]20 [place] [address] 03/04/2024 7:00 AM EDT Laboratory Lab [facility] Phlebotomy [facility] [address] [place] [address] Mvmg, Gml Mobile Home Draw [address] [place] [address] 03/11/2024 7:05 AM EDT Laboratory Lab [facility] Phlebotomy [facility] [address] [place] [address] Mvmg, Gml Mobile Home Draw [address] [place] [address] 03/18/2024 7:05 AM EST Laboratory [facility] Phlebot[facility] [address] [place] [facility] [address] Mvmg, Gml Mobile Home Draw [address] [place] [address] 03/25/2024 7:05 AM EST Laboratory [facility] [address] [place] [address] Mvmg, Gml Mobile Home Draw [address] [place] [address] 04/01/2024 7:00 AM EST Laboratory [facility] Ph[facility] [address] [place] [address] Mvmg, Gml Mobile Home Draw [address] [place] [address] 04/08/2024 7:05 AM EST Laboratory [facility] [address] [facility] [place] [address] Mvmg, Gml Mobile Home Draw [address] [place] [address] 04/15/2024 7:05 AM EST Laboratory [facility] [address] [place] [address] Mvmg, Gml Mobile Home Draw [address] [place] [address] 04/22/2024 7:05 AM EST Laboratory [facility] [address] [place] [address] Mvmg, Gml Mobile Home Draw [address] [place] [address] 04/29/2024 7:05 AM EST Laboratory [facility] [address] [place] [address] Mvmg, Gml Mobile Home Draw [address] [place] [address] 05/05/2024 7:05 AM EST Laboratory [facility] [address] [place] [address] Mvmg, Gml Mobile Home Draw [address] [place] [address] 09/02/2024 8:20 AM EDT Office Visit Pulmonary Medicine, [facility] [address] [facility] [place] [address] Ish Caba MD [address] [place] [address] 05/03/2025 7:40 AM EST Office Visit Dermatology [address] [place] [address] Albina Romo PA-C [address] [place] [address] [place] [address] Health Maintenance Due Date Last Done Comments Depression Screening 1976 Albumin/Creatinine Ratio 1982 Cologuard 2009 Fecal Occult Blood Test 2009 Sigmoidoscopy 2009 COVID-19 Vaccine ( season) 2023 01/28/2022, 09/26/2021, 01/17/2021, Additional history exists Colonoscopy 03/03/2023 03/03/2018, 03/03/2018 Colorectal Cancer Screening 03/03/2023 GFR 10/15/2024 10/16/2023, 09/12, 09/18/2023, Additional history exists Lipid Panel 11/18/2024 11/19/2019, 07/11, 07/29/2009 Diabetes Screening 10/15/2026 10/16/2023, 0 10/11/2023, 10/11/2023, Additional history exists DTaP,Tdap,and Td Vaccines [...] this encounter Medical Devices Implanted Type Area [employer] Custodian Device Identifier Shelf Expiration Date Model / Serial / Lot Mesh Plug Xlarge [id number] - [id number] Implanted:Qty: 1 on 12/09/2020 by John Zaragoza MD at OR [facility] Left: Groin CR BARD : SUDARSHANOL 05/09/2023 [id number] / / [id number] documented as of this encounter Advance Directives [...] Power of Attor coco? No Care Teams Gl Accountant Relationship Specialty Start Date End Date Michael Collins MD [address] [place] [address] [place] [address] PCP - General Internal Medicine 03/01/14 documented as of this encounter
--- OUTSIDE RECORDS SUMMARY | 2024-03-26 16:34 | External Medical Summary | Summary of Care ---
Author Name Unknown Organization [facility] Address [address] [facility] [place] [address] Phone [phone] Care Team Providers Care Spinning Lathe Operator Name Role Phone Michael Collins MD Primary Care Provi zehra Reason for Visit * Reason Onset Date Comments Forms Request 10/16/2023 Encounter Details Date Type Department Care Team (Late st Contact Info) Description 10/16/2023 Telephone Hematology/Oncology [facility] [place] 200 [facility] [place] [phone] Morgan [facility]quez MD 200 [facility] [address] Forms Request Allergies No known active allergiesdocumented as of this encounter (statuses as of 10/23/2023) Medications Medication Sig Dispensed Refills Start Date End Date Status THEOPHYLLINE ER 450 MG PO [id number]:2 tablet at bedtime Take by mouth. Indications: [...] nostril at bedtime. PATIENT INFORMATION: Kris Galvin [address] [place] [address] [employer]: [facility]/TBD ORDER: Please start nocturnal oxygen via nasal [...] signed) Ish Caba MD Pulmonary Medicine, [address] [place] [address] [place] [facility] Medical License Number: [id number] 1 Each 09/21/2022 Active metFORMIN HCl ER [...] of the forms and take them to [facility], they should be able to fax them [...] . Also, to have it faxed to [facility] before October 27 . The fax number is [phone]. pt would like the copy of the FMLA paperwork joann mailed to them . Forms will be located in HEMO/CON mailbox in mail processing machine operator. Thank you documented in this encounter Plan of Treatment Upcoming Encounters Date Type Department Care Team (Late st Contact Info) Description 10/24/2023 9:30 AM EDT Hem/Onc Treatment Hematology/Oncology Treatment, [place] [address] [place] [address] 10/30/2023 7:05 AM EDT Laboratory Lab Mobile Phlebotomy [facility] [address] [employer] [place] [address] Mvmg, Gml Mobile Home Draw [address] [place] [address] 11/06/2023 7:05 AM EDT Laboratory Lab Mobile Phlebot[facility] [address] [place] [address] Mvmg, Gml Mobile Home Draw [address] [place] [address] 11/08/2023 9:40 AM EDT Office Visit Rheumatology [address] [place] [phone] Darnell Higgins MD [address] [place] [address] 11/13/2023 7:00 AM EDT Laboratory Lab [facility] Ph[facility]bot[facility] [address] [place], [place] [address] Mvmg, Gml Mobile Home Draw [address] [place] [address] 11/15/2023 8:30 AM EDT Hem/Onc Treatment Hematology/Oncology Treatment, [place] [address] [place] [phone] Park, Chair 11 Hem Onc Scenery [address] [place] [address] 11/20/2023 7:05 AM EDT Laboratory [facility] [address] [place] [address] Mvmg, Gml Mobile Home Draw [address] [place] [address] 11/27/2023 7:05 AM EDT Laboratory Lab [facility] Ph[facility]bot[facility] [address] [place] [address] Mvmg, Gml Mobile Home Draw [address] [place] [address] 12/04/2023 7:05 AM EDT Laboratory Lab Mobile Phlebot[facility] [address] [place] [address] Mvmg, Gml Mobile Home Draw [address] [place] [address] 12/11/2023 7:00 AM EDT Laboratory Lab [facility] Ph[facility]bot[facility] [address] [place] [address] Mvmg, Gml Mobile Home Draw [address] [place], [place] [address] 12/12/2023 11:15 AM EDT Office Visit Hematology/[facility] 200 [facility] [place] [phone] Morgan Vásquez MD [address] [place] [address] 12/12/2023 11:45 AM EDT Hem/Onc Treatment Hematology/Oncology Treatment, [place] 200 [facility] [place] [phone] 12/18/2023 7:05 AM EDT Laboratory Lab Mobile Phlebotomy [facility] [address] [place], [place] [address] Mvmg, Gml Mobile Home Draw [address] [place], [place] [address] 12/25/2023 7:05 AM EDT Laboratory Lab Mobile Phlebotomy [facility] [address] [place], [place] [address] Mvmg, Gml Mobile Home Draw [address] [place] [address] 01/01/2024 7:05 AM EDT Laboratory Lab [facility] Phlebotomy [facility] [address] [place], [place] [address] Mvmg, Gml Mobile Home Draw [address] [place], [place] [address] 01/08/2024 7:00 AM EDT Laboratory Lab Mobile Phlebotomy [facility] [address] [place] [address] Mvmg, Gml Mobile Home Draw [address] [place] [address] 01/15/2024 7:05 AM EDT Laboratory Lab Mobile Phlebotomy [facility] [address] [place] [address] Mvmg, Gml Mobile Home Draw [address] [place], [place] [address] 01/22/2024 7:05 AM EDT Laboratory Lab Mobile Phlebotomy [facility] [address] [place] [address] Mvmg, Gml Mobile Home Draw [address] [place] [address] 01/29/2024 7:05 AM EDT Laboratory Lab [facility] Phlebotomy [facility] [address] [place] [address] Mvmg, Gml Mobile Home Draw [address] [place] [address] 02/05/2024 7:00 AM EDT Laboratory Lab Mobile Phlebotomy [facility] [address] [email or web address] [address] Mvmg, Gml Mobile Home Draw [address] [place] [address] 02/05/2024 8:40 AM EDT Office Visit Neurology [facility] 200 [facility] [place], [place] [address] Octavia Goins PA-C 200 [facility] [place], [place] [address] 02/12/2024 7:05 AM EDT Laboratory Lab Mobile Phlebotomy [facility] [address] [place] [address] Mvmg, Gml Mobile Home Draw [address] [place] [address] 02/19/2024 7:05 AM EDT Laboratory Lab Mobile Phlebotomy [facility] [address] [place] [address] Mvmg, Gml Mobile Home Draw [address] [place] [address] 02/26/2024 7:05 AM EDT Laboratory Lab [facility] Phlebot[facility] [address] [place] [address] Mvmg, Gml Mobile Home Draw [address] [place] [address] 03/04/2024 7:00 AM EDT Laboratory Lab [facility] Phlebot[facility] [address] [place] [address] Mvmg, Gml Mobile Home Draw 2520 [place] [address] 03/11/2024 7:05 AM EDT Laboratory Lab Mobile Phlebotomy [facility] [address] [place] [address] Mvmg, Gml Mobile Home Draw [address] [place] [address] 03/18/2024 7:05 AM EST Laboratory Lab Mobile Phlebotomy [facility] [address] [place] [address] Mvmg, Gml Mobile Home Draw [address] [place] [address] 03/25/2024 7:05 AM EST Laboratory Lab Mobile Phlebotomy [facility] [address] [place] [address] Mvmg, Gml Mobile Home Draw [address] [place] [address] 04/01/2024 7:00 AM EST Laboratory Lab [facility] Phlebotomy [facility] [address] [place] [address] Mvmg, Gml Mobile Home Draw [address] [place] [address] 04/08/2024 7:05 AM EST Laboratory Lab [facility] Phlebotomy [facility] [address] [place] [address] Mvmg, Gml Mobile Home Draw [address] [place] [address] 04/15/2024 7:05 AM EST Laboratory Lab [facility] Phlebot[facility] [address] [place] [address] Mvmg, Gml Mobile Home Draw [address] [place] [address] 04/22/2024 7:05 AM EST Laboratory Lab Mobile Phlebotomy [facility] [address] [place] [address] Mvmg, Gml Mobile Home Draw [address] [place] [address] 04/29/2024 7:05 AM EST Laboratory Lab Mobile Phlebotomy [facility] [address] [facility] [place] [address] Mvmg, Gml Mobile Home Draw [address] [facility] [place] [address] 05/05/2024 7:05 AM EST Laboratory Lab Mobile Phlebotomy [facility] [address] [facility] [place] [address] Mvmg, Gml Mobile Home Draw [address] [facility] [place] [address] 09/02/2024 8:20 AM EDT Office Visit Pulmonary Medicine, [facility] 132 [facility] [place] [address] Ish Caba MD [address] [place] [address] 05/03/2025 7:40 AM EST Office Visit Dermatology [address] [place] [address] Albina Romo PA-C [address] [place] [address] [place] [address] Health Maintenance Due Date Last Done Comments [...] this encounter Medical Devices Implanted Type Area Insurance Territory Manager Device Identifier Shelf Expiration Date Model / Serial / Lot Mesh Plug Xlarge [id number] - [id number] Implanted:Qty: 1 on 12/09/2020 by John Zaragoza MD at OR [facility] Left: Groin CR BARD : DAVOL 05/09/2023 [id number] / / [id number] documented as of this encounter Advance Directives [...] Power of Attor coco? No Care Teams Spinning Lathe Operator Relationship Specialty Start Date End Date Michael Collins MD [address] [place] [address] [place] [address] PCP - General Internal Medicine 03/01/14 documented as of this encounter
--- OUTSIDE RECORDS SUMMARY | 2024-03-26 16:34 | External Medical Summary ---
Author Name Unknown Address Unknown Organization K01:[facility] [place] [address] [facility] [place] [address] Laboratory Report Ordering Provider Test Date Status KALPESH SERRANO 10/23/2023 07:37:00 Final Observation Date Value Abnormality Reference (Units ) Status BUN 10/23/2023 07:37:00 18 6-20 (mg/dL) Final Creatinine 10/23/2023 07:37:00 1.1 0.6-1.2 (mg/dL) Final Glomerular filtration rate/1.73 sq M.predicted [Volume Rate/Area] in Serum, Plasma or Blood by Creatinine-based formula (CKD-EPI) 10/23/2023 07:37:00 76 >=60 (mL/min) Final eGFR is calculated based on the CKD-EPI 2020 equation Sodium 10/23/2023 07:37:00 140 135-146 (m mol/L) Final Potassium 10/23/2023 07:37:00 4.1 3.5-5.1 (m mol/L) Final Cl 10/23/2023 07:37:00 98 98-107 (mm ol/L) Final CO2 10/23/2023 07:37:00 28 22-32 (mmo l/L) Final Anion gap 10/23/2023 07:37:00 14 7-15 (mmol /L) Final Glucose 10/23/2023 07:37:00 103 70-120 (mg /dL) Final Albumin 10/23/2023 07:37:00 4.4 3.8-5.0 (g /dL) Final AST (Aspartate aminotransferase) 10/23/2023 07:37:00 16 10-50 (U/L) Final Alk Phos 10/23/2023 07:37:00 113 35-130 (U/ L) Final Bilirubin, Total 10/23/2023 07:37:00 0.4 <=1 .2 (mg/dL) Final Calcium 10/23/2023 07:37:00 9.3 8.4-10.2 ( mg/dL) Final Protein 10/23/2023 07:37:00 7.0 6.0-8.3 (g /dL) Final ALT (Alanine aminotransferase) 10/23/2023 07:37:00 17 10-50 (U/L) Final Performing Location [facility] [place] [address] [facility] [address]
--- OUTSIDE RECORDS SUMMARY | 2024-03-26 16:34 | External Medical Summary | Summary of Care ---
Author Name Unknown Organization [facility] Address [address] [facility] [address] Phone [phone] Care Team Providers Care Woven Wood Shade Assembler Name Role Phone Michael Collins MD Primary Care Provi zehra Reason for Visit * Reason Comments Chemotherapy DarzalexFaspro * Episode Based Medications (Routine) - Pending Review Specialty Diagnoses / Procedures Referred By Contjuanito t Referred To Contact Diagnoses Multiple myeloma not having achieved remission (HCC) Procedures PA DARATUMUMAB, HYALURONIDASE PA INJ, CYCLOPHOSPHAMIDE, NOS Morgan Vásquez MD [facility] [place] [address] [place] Hem/Onc Amena You DEPT CLOSED - 03/26/[address] [facility] [place] [address] Referral ID Status Reason Start Date Expiration Date V isits Requested Visits Authorized [id number] Pending Review 05/28/2022 05/12/2099 99 99 Encounter Details Date Type Department Care Team (Latest Contact Info) Description 09/20/2023 9:15 AM EDT Hem/Onc Treatment Hematology/Oncolog y Treatment, [place] [address] [place] [address] Kenyatta, Chair 8 Hem Onc [place] [address] Amena Osman [place] [address] Multiple myeloma not having achieved remission (HCC)*; Encounter for antineoplastic immunotherapy Allergies No known active allergiesdocumented as of this encounter (statuses as of 10/20/2023) Medications Medication Sig Dispensed Refills Start Date End Date Status THEOPHYLLINE ER 450 MG PO [id number]: 2 tablet at bedtime Take by mouth. [...] Take by mouth. Active Multiple Vitamins-Mineral s ([facility] IMMUNITY SUPPORT) CHEW Take by mouth. [...] nostril at bedtime. PATIENT INFORMATION: Kris Galvin [address] [place] [address] [employer]: [employer] ORDER: Please start nocturnal oxygen via nasal [...] signed) Ish Caba MD Pulmonary Medicine, [address] [place] [address] [place] [facility] Medical License Number: [id number] 1 Each 3 Active metFORMIN HCl ER (OSM) 500 MG Oral Tablet Extended Release 24 Hour 1 Tablet. 3 Active oxyCODONE HCl 5 MG Oral Tablet (Oxy IR) TAKE 1 TAB BY MOUTH EVERY 6 HOURS NEEDED FOR PAIN Active Triamcinolone Acetonide 0.1 % External Cream (Aristocort) Apply 2x daily to rashes areas on trunk/arms/legs during winter time mostly. 454 g 3 Active Pregabalin 25 MG Oral Capsule (Lyrica) 1 tab am and 1 tab pm 60 Capsule 2 4 Active Acyclovir 800 MG Oral Tablet (Zovirax)Indicat ions:Multiple myeloma not having achieved remission (HCC),History of autologous stem cell transplant (HCC) TAKE 1 TABLET BY MOUTH TWICE A DAY 180 Tablet 3 4 Active traMADol HCl 50 MG Oral Tablet (Ultram) Take by mouth. 10/11/19 24 Discontinued Dexamethasone 4 MG Oral Tablet (Decadron)Indica tions:Multiple myeloma not having achieved remission (HCC) TAKE 1 TABLET BY MOUTH IN THE MORNING ON DAYS 2 AND 3 AFTER EACH DARZALEX TREATMENT 30 Tablet 2 3 10/08/19 24 Discontinued(Re fill) Ondansetron HCl 8 MG Oral Tablet (Zofran)Indicati ons:Multiple myeloma (HCC) TAKE 1 TABLET BY MOUTH EVERY 8 HOURS NEEDED FOR NAUSEA 30 Tablet 3 3 10/08/19 24 Discontinued Prochlorperazine Maleate 10 MG Oral Tablet (Compazine)Indic ations:Multiple myeloma in remission (HCC) TAKE 1 TABLET BY MOUTH EVERY 6 HOURS NEEDED FOR NAUSEA 60 Tablet 5 3 10/08/19 24 Discontinued(Re fill) DULoxetine HCl 60 MG Oral Capsule Delayed Release Particles (Cymbalta) TAKE 1 CAPSULE BY MOUTH TWICE A DAY 180 Capsule 1 3 09/30/19 24 Discontinued(Re fill) Ondansetron HCl 8 MG Oral Tablet (Zofran)Indicati ons:Multiple myeloma (HCC) TAKE 1 TABLET BY MOUTH EVERY 8 HOURS NEEDED FOR NAUSEA 90 Tablet 1 3 10/08/19 24 Discontinued(Re fill) Hospital, Clinic, or Other Facility Administered Medication [...] as of this encounter (statuses as of 10/20/2023) Active Problems Problem Noted Date Diagnosed Date [...] as of this encounter (statuses as of 10/20/2023) Resolved Problems Problem Noted Date Diagnosed Date Resolved Date Asthma in remission 08/28/2022 08/29/19 Asthma, mild persistent 08/28/2022 0412/2022 Asthma, severe persistent 08/28/2022 Stem cell transplant candidate 08/17/2019 09/02/2019 documented as of this encounter (statuses as of 10/20/2023) Immunizations Name Administration Dates Next Due COVID-19 mRNA, LNP-s, No Pre serve, 2-Dose Series (Parents Journey) 01/17/2021,08/05/2020,07/08/2020 COVID-19, LNP-s, No Preserve , Bryant-sucrose, [...] Nursing Notes * Brittanie Riggs RN - 09/20/2023 10:13 AM EDT Darzalex Faspro administered per order; pt tolerated well. Pt discharged in stable condition. * Brittanie Riggs RN - 09/20/2023 9:40 AM EDT Chair 3 Chemotherapy/Immunotherapy agents: DARZALEX Faspro Consent for chemotherapy drug treatment complete, [...] Care Team (Late st Contact Info) Description 10/23/2023 7:05 AM EDT Laboratory Lab Mobile Phlebotomy [facility] [address], [place] [address] Mvmg, Gml Mobile Home Draw [address] [place], [place] [address] 10/30/2023 7:05 AM EDT Laboratory Lab Mobile Phlebotomy [facility] [address] [place] [address] Mvmg, Gml Mobile Home Draw [address] [place], [place] [address] 11/06/2023 7:05 AM EDT Laboratory Lab Mobile Phlebotomy [facility] [address] [employer] Cecile Osman [place], [place] [address] Mvmg, Gml Mobile Home Draw [address] [place], [place] [address] 11/08/2023 9:40 AM EDT Office Visit Rheumatology [address] [place] [phone] Darnell Higgins MD [address] [place] [address] 11/13/2023 7:00 AM EDT Laboratory Lab Mobile Phlebotomy [facility] [address] [place], [place] [address] Mvmg, Gml Mobile Home Draw [address] [place] [address] 11/15/2023 8:30 AM EDT Hem/Onc Treatment Hematology/Oncology Treatment, [place] [address] [place] [phone] Kenyatta, Chair 11 Hem Onc [address] [place] [address] 11/20/2023 7:05 AM EDT Laboratory Lab Mobile Phlebotomy [facility] [address] [place] [address] Mvmg, Gml Mobile Home Draw [address] [place] [address] 11/27/2023 7:05 AM EDT Laboratory Lab Mobile Phlebotomy [facility] [address] [place], [place] [address] Mvmg, Gml Mobile Home Draw [address] [place] [address] 12/04/2023 7:05 AM EDT Laboratory Lab Mobile Phlebotomy [facility] [address] [place] [address] Mvmg, Gml Mobile Home Draw [address] [place] [address] 12/11/2023 7:00 AM EDT Laboratory Lab Mobile Phlebotomy [facility] [address] [place], [place] [address] Mvmg, Gml Mobile Home Draw [address] Cec[address]man [place], [place] [address] 12/12/2023 11:15 AM EDT Office Visit Hematology/Oncology [facility] [address] [facility], [place] [phone] Morgan Vásquez MD [address] [place] [address] 12/12/2023 11:45 AM EDT Hem/Onc Treatment Hematology/Oncology Treatment, [place] 200 [facility], [place] [phone] 12/18/2023 7:05 AM EDT Laboratory Lab Mobile Phlebotomy [facility] [address] [place] [address] Mvmg, Gml Mobile Home Draw [address] [place] [address] 12/25/2023 7:05 AM EDT Laboratory Lab Mobile Phlebotomy [facility] [address] [place] [address] Mvmg, Gml Mobile Home Draw [address] [place] [address] 01/01/2024 7:05 AM EDT Laboratory Lab Mobile Phlebotomy [facility] [address] [place] [address] Mvmg, Gml Mobile Home Draw [address] [facility] [place] [address] 01/08/2024 7:00 AM EDT Laboratory Lab Mobile Phlebotomy [facility] [address] [place] [address] Mvmg, Gml Mobile Home Draw [address] [facility] [place] [address] 01/15/2024 7:05 AM EDT Laboratory Lab Mobile Phlebotomy [facility] [address] [place] [address] Mvmg, Gml Mobile Home Draw [address] [facility] [place] [address] 01/22/2024 7:05 AM EDT Laboratory Lab Mobile Phlebotomy [facility] [address] [place] [address] Mvmg, Gml Mobile Home Draw [address] [place] [address] 01/29/2024 7:05 AM EDT Laboratory Lab Mobile Phlebotomy [facility] [address] [facility] [place] [address] Mvmg, Gml Mobile Home Draw [address] [facility] [place] [address] 02/05/2024 7:00 AM EDT Laboratory Lab Mobile Phlebotomy [facility] [address] [place] [address] Mvmg, Gml Mobile Home Draw [address] [facility] [place] [address] 02/05/2024 8:40 AM EDT Office Visit Neurology [facility] [place] [address] [place], [place] [address] Octavia Goins PA-C [address] [facility] [place] [address] 02/12/2024 7:05 AM EDT Laboratory Lab Mobile Phlebotomy [facility] [address] [place] [address] Mvmg, Gml Mobile Home Draw [address] [place] [address] 02/19/2024 7:05 AM EDT Laboratory Lab Mobile Phlebotomy [facility] [address] [place] [address] Mvmg, Gml Mobile Home Draw [address] [place] [address] 02/26/2024 7:05 AM EDT Laboratory Lab Mobile Phlebotomy [facility] [address] [facility] [place] [address] Mvmg, Gml Mobile Home Draw [address] [place] [address] 03/04/2024 7:00 AM EDT Laboratory Lab Mobile Phlebotomy [facility] [address] [facility] [place] [address] Mvmg, Gml Mobile Home Draw [address] [place] [address] 03/11/2024 7:05 AM EDT Laboratory Lab Mobile Phlebotomy [facility] [address] [place] [address] Mvmg, Gml Mobile Home Draw [address] [place] [address] 03/18/2024 7:05 AM EST Laboratory Lab Mobile Phlebotomy [facility] [address] [place] [address] Mvmg, Gml Mobile Home Draw [address] [place] [address] 03/25/2024 7:05 AM EST Laboratory Lab Mobile Phlebotomy [facility] [address] [facility] [place] [address] Mvmg, Gml Mobile Home Draw [address] [place] [address] 04/01/2024 7:00 AM EST Laboratory Lab Mobile Phlebotomy [facility] [address] [place] [address] Mvmg, Gml Mobile Home Draw [address] [employer] [facility] [place] [address] 04/08/2024 7:05 AM EST Laboratory Lab Mobile Phlebotomy [facility] [address] [employer] [facility] [place] [address] Mvmg, Gml Mobile Home Draw [address] [employer] [facility] [place] [address] 04/15/2024 7:05 AM EST Laboratory Lab Mobile Phlebotomy [facility] [address] [employer] [facility] [place] [address] Mvmg, Gml Mobile Home Draw [address] [employer] [facility] [place] [address] 04/22/2024 7:05 AM EST Laboratory Lab Mobile Phlebotomy [facility] [address] [employer] [facility] [place] [address] Mvmg, Gml Mobile Home Draw [address] [employer] [facility] [place] [address] 04/29/2024 7:05 AM EST Laboratory Lab Mobile Phlebotomy [facility] [address] [employer] [facility] [place] [address] Mvmg, Gml Mobile Home Draw [address] [employer] [facility] [place] [address] 05/05/2024 7:05 AM EST Laboratory Lab Mobile Phlebotomy [facility] [address] [employer] [facility] [place] [address] Mvmg, Gml Mobile Home Draw [address] [employer] [facility] [place] [address] 09/02/2024 8:20 AM EDT Office Visit Pulmonary Medicine, [facility] [address] [place] [address] Ish Caba MD [address] [place] [address] 05/03/2025 7:40 AM EST Office Visit Dermatology [address] [place] [address] Albina Romo PA-C [address] [place] [address] [place] [address] Health Maintenance Due Date Last Done Comments [...] this encounter Medical Devices Implanted Type Area Windows Server Specialist Device Identifier Shelf Expiration Date Model / Serial / Lot Mesh Plug Xlarge [id number] - [id number] Implanted:Qty: 1 on 12/09/2020 by John Zaragoza MD at OR [facility] Left: Demond RIVAS BARD : LUCINDA 05/09/2023 [id number] / / [id number] documented as of this encounter Visit Diagnoses Diagnosis Multiple myeloma not having achieved remission (HCC)- Primary Multiple myeloma, without mention of having achieved remission Encounter for antineoplastic immunotherapy documented in this encounter Administered Medications Inactive Administered Medications - up to 3 most recent administrations Medication Order MAR Action Action Date Dose Rate Site Acetaminophen (Tylenol) tab 650 mg 650 mg, Oral, ONCE, On Sat09/20/23 at 1030, For 1 dose, Maximum of 4 grams (4000 mg) per day. Given 09/20/2023 9:30 AM EDT 650 mg Duwaabqnclx-qnwjrzcmeiesc-i ihj (Darzalex Faspro) 1800 mg-37258 units/ 15 ml subcut inj 15 mL, Subcutaneous, ONCE, On Sat09/20/23 at 1100, For 1 dose, Inject subcutanteously into abdomen over 3 to 5 minutes Given 09/20/2023 9:46 AM EDT 15 mL Abdomen Right Lower dexAMETHasone (Decadron) tab 20 mg 20 mg, Oral, ONCE, On Sat09/20/23 at 1000, For 1 dose Given 09/20/2023 9:29 AM EDT 20 mg diphenhydrAMINE (Benadryl) cap 50 mg 50 mg, Oral, ONCE, On Sat09/20/23 at 1030, For 1 dose Given 09/20/2023 9:30 AM EDT 50 mg documented in this [...] Power of Attor coco? No Care Teams Woven Wood Shade Assembler Relationship Specialty Start Date End Date Michael Collins MD [address] [place] [address] [place] [address] PCP - General Internal Medicine 03/01/14 documented as of this encounter
--- OUTSIDE RECORDS SUMMARY | 2024-03-26 16:34 | External Medical Summary | Summary of Care ---
Author Name Unknown Organization [facility] Address [address] [facility] [place] [address] Phone [phone] Care Team Providers Care Principal Technologist Name Role Phone Michael Collins MD Primary Care Provi zehra Reason for Visit * Reason Onset Date Comments Precert Future 10/18/2023 Adding cytoxan Encounter Details Date Type Department Care Team (Late st Contact Info) Description 10/18/2023 Telephone Hematology/Oncology Treatment, [place] [address] [place] [address] Morgan Vásquez MD 200 [place] [address] Precert Future (Adding cytoxan) Allergies No known active allergiesdocumented as of this encounter (statuses as of 10/21/2023) Medications Medication Sig Dispensed Refills Start Date End Date Status THEOPHYLLINE ER 450 MG PO [id number]:2 tablet at bedtime Take by mouth. Indications: [...] CAPS Take by mouth. Active Multiple Vitamins-Minerals ([facility] IMMUNITY SUPPORT) CHEW Take by [...] nostril at bedtime. PATIENT INFORMATION: Kris Galvin [address] [place] [address] [email or web address]: Vyclone/TBD ORDER: Please start nocturnal oxygen via nasal [...] signed) Ish Caba MD Pulmonary Medicine, [address] [place] [address] [employer] Medical License Number: [id number] 1 Each 09/21/2022 Active metFORMIN HCl ER (OSM) 500 MG Oral Tablet Extended Release 24 Hour 1 Tablet. 01/09/2023 Active oxyCODONE HCl 5 MG Oral Tablet (Oxy IR) TAKE 1 TAB BY MOUTH EVERY 6 HOURS NEEDED FOR PAIN Active Triamcinolone Acetonide 0.1 % External Cream (Aristocort) Apply 2x daily to rashes areas on trunk/arms/legs during winter time mostly. 454 g 04/29/2023 Active Pregabalin 25 MG Oral Capsule (Lyrica) 1 tab am and 1 tab pm 60 Capsule 2 07/23/2023 Active Acyclovir 800 MG Oral Tablet (Zovirax)Indicatio [...] and 1 Tablet before bedtime. 10/01/2023 Active Hospital, Clinic, or Other Facility Administered [...] as of this encounter (statuses as of 10/21/2023) Active Problems Problem Noted Date Diagnosed Date [...] as of this encounter (statuses as of 10/21/2023) Resolved Problems Problem Noted Date Diagnosed Date Resolved Date Asthma in remission 08/28/2022 08/29/19 Asthma, mild persistent 08/28/202208/11 Asthma, severe persistent 08/28/2022 Stem cell transplant candidate 08/17/2019 09/02/2019 documented as of this encounter (statuses as of 10/21/2023) Immunizations Name Administration Dates Next Due COVID-19 [...] encounter Miscellaneous Notes * Telephone Encounter - Ghada Morgan OSA - 10/21/2023 8:10 AM EDT Patients [facility] returned call to schedule. Please contact [facility] at [phone]. Thank you. * Telephone Encounter - Court Reza OSA - 10/19/2023 11:31 AM EDT Lmom for [facility] to call back * Telephone Encounter - Eleanor Crawford RN - 10/18/2023 3:31 PM EDT Referral entered. Scheduling: please call [facility] to schedule 3 hour appt "cytoxan" (Vásquez) for 10/24/23. Thanks! * Telephone Encounter - Eleanor Crawford RN - 10/18/2023 2:54 PM EDT Order received to add cytoxan. [place] plan adjusted. Waiting for auth. Consent signed 10/17/23. Patient prefers appts. Mobile lab referral replaced for weekly labs. documented in this encounter Plan of Treatment Upcoming Encounters Date Type Department Care Team (Late st Contact Info) Description 10/23/2023 7:05 AM EDT Laboratory Lab Mobile Phlebotomy [facility] [address], [place] [address] Mvmg, Gml Mobile Home Draw [address], [place] [address] 10/30/2023 7:05 AM EDT Laboratory Lab Mobile Phlebotomy [facility] [address] [place] [address] Mvmg, Gml Mobile Home Draw [address] [place] [address] 11/06/2023 7:05 AM EDT Laboratory Lab Mobile Phlebotomy [facility] [address] [place] [address] Mvmg, Gml Mobile Home Draw [address] [place] [address] 11/08/2023 9:40 AM EDT Office Visit Rheumatology [address] [place] [phone] Darnell Higgins MD [address], [place] [address] 11/13/2023 7:00 AM EDT Laboratory Lab Mobile Phlebotomy [facility] [address] [place] [address] Mvmg, Gml Mobile Home Draw [address] [place] [address] 11/15/2023 8:30 AM EDT Hem/Onc Treatment Hematology/Oncology Treatment, [place] [address] [place], [place] [phone] Park, Chair 11 Hem Onc [address] [place], [place] [address] 11/20/2023 7:05 AM EDT Laboratory Lab Mobile Phlebotomy [facility] [address], [place] [address] Mvmg, Gml Mobile Home Draw [address] [place] [address] 11/27/2023 7:05 AM EDT Laboratory Lab Mobile Phlebotomy [facility] [address] [place] [address] Mvmg, Gml Mobile Home Draw [address] [place], [place] [address] 12/04/2023 7:05 AM EDT Laboratory Lab Mobile Phlebotomy [facility] [address] [place] [address] Mvmg, Gml Mobile Home Draw [address], [place] [address] 12/11/2023 7:00 AM EDT Laboratory Lab Mobile Phlebotomy [facility] [address] [place] [address] Mvmg, Gml Mobile Home Draw [address] [place] [address] 12/12/2023 11:15 AM EDT Office Visit Hematology/Oncology [facility] [place] [address] [place] [phone] Morgan Vásquez MD [address] [facility] [place] [address] 12/12/2023 11:45 AM EDT Hem/Onc Treatment Hematology/Oncology Treatment, [place] [address] [place], [place] [phone] 12/18/2023 7:05 AM EDT Laboratory Lab Mobile Phlebotomy [facility] [address] [place], [place] [address] Mvmg, Gml Mobile Home Draw [address] [place], [place] [address] 12/25/2023 7:05 AM EDT Laboratory Lab Mobile Phlebotomy [facility] [address] [place], [place] [address] Mvmg, Gml Mobile Home Draw [address] [place] [address] 01/01/2024 7:05 AM EDT Laboratory Lab Mobile Phlebotomy [facility] [address] [place], [place] [address] Mvmg, Gml Mobile Home Draw [address] [place] [address] 01/08/2024 7:00 AM EDT Laboratory Lab Mobile Phlebotomy [facility] [address] [employer] [place] [address] Mvmg, Gml Mobile Home Draw [address] [place] [address] 01/15/2024 7:05 AM EDT Laboratory Lab Mobile Phlebotomy [facility] [address] [place] [address] Mvmg, Gml Mobile Home Draw [address] [place] [address] 01/22/2024 7:05 AM EDT Laboratory Lab Mobile Phlebotomy [facility] [address] [employer] [place] [address] Mvmg, Gml Mobile Home Draw [address] [place] [address] 01/29/2024 7:05 AM EDT Laboratory Lab Mobile Phlebotomy [facility] [address] [place], [place] [address] Mvmg, Gml Mobile Home Draw [address] [place] [address] 02/05/2024 7:00 AM EDT Laboratory Lab Mobile Phlebotomy [facility] [address] [place] [address] Mvmg, Gml Mobile Home Draw [address] [place], [place] [address] 02/05/2024 8:40 AM EDT Office Visit Neurology [facility] [address] [facility] [place], [place] [address] Octavia Goins PA-C [address] [place] [place] [address] 02/12/2024 7:05 AM EDT Laboratory Lab Mobile Phlebotomy [facility] [address] [place], [place] [address] Mvmg, Gml Mobile Home Draw [address] [place], [place] [address] 02/19/2024 7:05 AM EDT Laboratory Lab Mobile Phlebotomy [facility] [address] [place] [address] Mvmg, Gml Mobile Home Draw [address] [place] [address] 02/26/2024 7:05 AM EDT Laboratory Lab Mobile Phlebotomy [facility] [address] [place] [address] Mvmg, Gml Mobile Home Draw [address] [place], [place] [address] 03/04/2024 7:00 AM EDT Laboratory Lab Mobile Phlebotomy [facility] [address] [place] [address] Mvmg, Gml Mobile Home Draw [address] [place] [address] 03/11/2024 7:05 AM EDT Laboratory Lab Mobile Phlebotomy [facility] [address] [place] [address] Mvmg, Gml Mobile Home Draw [address] [place] [address] 03/18/2024 7:05 AM EST Laboratory Lab Mobile Phlebotomy [facility] [address] [place] [address] Mvmg, Gml Mobile Home Draw [address] [place] [address] 03/25/2024 7:05 AM EST Laboratory Lab Mobile Phlebotomy [facility] [address] [place] [address] Mvmg, Gml Mobile Home Draw [address] [place] [address] 04/01/2024 7:00 AM EST Laboratory Lab Mobile Phlebotomy [facility] [address] [place] [address] Mvmg, Gml Mobile Home Draw [address] [place] [address] 04/08/2024 7:05 AM EST Laboratory Lab Mobile Phlebotomy [facility] [address] [place] [address] Mvmg, Gml Mobile Home Draw [address] [place] [address] 04/15/2024 7:05 AM EST Laboratory Lab Mobile Phlebotomy [facility] [address] [place] [address] Mvmg, Gml Mobile Home Draw [address] [place] [address] 04/22/2024 7:05 AM EST Laboratory Lab Mobile Phlebotomy [facility] [address] [place] [address] Mvmg, Gml Mobile Home Draw [address] [place] [address] 04/29/2024 7:05 AM EST Laboratory Lab Mobile Phlebotomy [facility] [address] [facility] [place] [address] Mvmg, Gml Mobile Home Draw [address] [facility] [place] [address] 05/05/2024 7:05 AM EST Laboratory Lab Mobile Phlebotomy [facility] [address] [facility] [place] [address] Mvmg, Gml Mobile Home Draw [address] [facility] [place] [address] 09/02/2024 8:20 AM EDT Office Visit Pulmonary Medicine, [facility] [address] [facility] [place] [address] Ish Caba MD [address] [place] [address] 05/03/2025 7:40 AM EST Office Visit Dermatology [address] [place] [address] Albina Romo PA-C [address] [place] [address] [place] [address] Health Maintenance Due Date Last Done Comments [...] this encounter Medical Devices Implanted Type Area Divinity Teacher Device Identifier Shelf Expiration Date Model / Serial / Lot Mesh Plug Xlarge [id number] - [id number] Implanted:Qty: 1 on 12/09/2020 by John Zaragoza MD at OR [facility] Left: Groin CR BARD : DAVOL 05/09/2023 [id number] / / [id number] documented as of this encounter Advance Directives [...] Power of Attor coco? No Care Teams Principal Technologist Relationship Specialty Start Date End Date Michael Collins MD [address] [place] [address] [place] [address] PCP - General Internal Medicine 03/01/14 documented as of this encounter
--- OUTSIDE RECORDS SUMMARY | 2024-03-26 16:34 | External Medical Summary | Summary of Care ---
Author Name Unknown Organization [facility] Address [address] [facility] [address] Phone [phone] Care Team Providers Care Retort Condenser Attendant Name Role Phone Michael Collins MD Primary Care Provi zehra Reason for Visit * Reason Onset Date Comments Medication Refill 10/20/2023 Encounter Details Date Type Department Care Team (Late st Contact Info) Description 10/20/2023 Refill Neurology [facility] [place] [address] [place] [address] Octavia Goins PA-C 200 [place] [address] Allergies No known active allergiesdocumented as of this encounter (statuses as of 10/21/2023) Medications Medication Sig Dispensed Refills Start Date End Date Status THEOPHYLLINE ER 450 MG PO WL13Ikyknoheyah:2 tablet at bedtime Take by mouth. Indications: [...] CAPS Take by mouth. Active Multiple Vitamins-Minerals ([facility]) CHEW Take by mouth. [...] L/min(Oxygen) into nostril at bedtime. PATIENT INFORMATION: Krisjuan Galvin [address] [place] [address] [employer] EQUIPMENT [employer]: Tiny Post/Layer3 TVD ORDER: Please start nocturnal oxygen via nasal [...] signed) Ish Caba MD Pulmonary Medicine, [address] [place] [address] [facility] Medical License Number: [id number] 1 Each 09/21/2022 Active metFORMIN HCl ER [...] tab pm 60 Capsule 2 10/21/2023 Active Pregabalin 25 MG Oral Capsule (Lyrica) 1 tab am and 1 tab pm 60 Capsule 2 07/23/2023 Discontinu ed(Refill) Hospital, Clinic, or Other Facility [...] Telephone Encounter - Octavia Goins PA-C - 10/21/2023 9:57 AM EDT Signed Prescriptions: Disp Refills Pregabalin 25 MG Oral Capsule (Lyrica) 60 Cap*2 Si tab am and 1 tab pmAuthorizing Provider: OCTAVIA GOINS * Telephone Encounter - Raisa Smith, [employer] - 10/21/2023 8:37 AM EDT Pending Prescriptions: Disp Refills Pregabalin 25 MG Oral Capsule (Lyrica) 60 Cap*2 Si tab am and 1 tab pm documented in this encounter Plan of Treatment Upcoming Encounters Date Type Department Care Team (Late st Contact Info) Description 10/23/2023 7:05 AM EDT Laboratory Lab Mobile Phlebotomy [facility] [address] [place] [address] [facility] Draw [address] [facility] [place], [place] [address] 10/24/2023 9:30 AM EDT Hem/Onc Treatment Hematology/Oncology Treatment, [place] [address] [place] [address] 10/30/2023 7:05 AM EDT Laboratory Lab Mobile Phlebotomy [facility] [address] [place] [address] [facility], [facility] Draw [address] [place] [address] 11/06/2023 7:05 AM EDT Laboratory Lab Mobile Phlebotomy [facility] [address] [place] [address] M[facility], Gml [facility] Draw [address] [facility] [place] [address] 11/08/2023 9:40 AM EDT Office Visit Rheumatology [address] [place], [place] [address] Darnell Higgins MD 25[address] [facility] [place], [place] [address] 11/13/2023 7:00 AM EDT Laboratory Lab Mobile Phlebotomy [facility] [address] [facility] [place], [place] [address] M[facility]mg, Gml Mobile Home Draw 25[address] [facility] [place], [place] [address] 11/15/2023 8:30 AM EDT Hem/Onc Treatment Hematology/Oncology Treatment, [place] [address] [place], [place] [phone] [place], Chair [address] Hem Onc Scenery [address] [place] [facility] [place] [address] 11/20/2023 7:05 AM EDT Laboratory Lab Mobile Phlebotomy [facility] [address] [place], [place] [address] M[facility], Gml Mobile Home Draw [address] Gen [facility] [place], [place] [address] 11/27/2023 7:05 AM EDT Laboratory Lab Mobile Phlebotomy [facility] [address] [place] [address] Mvmg, Gml Mobile Home Draw [address] Gen [facility] [place] [address] 12/04/2023 7:05 AM EDT Laboratory Lab Mobile Phlebotomy [facility] [address] [place] [address] Mvmg, Gml Mobile Home Draw [address] [place], [place] [address] 12/11/2023 7:00 AM EDT Laboratory Lab Mobile Phlebotomy [facility] [address] [place] [address] Mvmg, Gml Mobile Home Draw [address] [place] [address] 12/12/2023 11:15 AM EDT Office Visit Hematology/Oncology [facility] 200 [facility] [place] [phone] Morgan Vásquez MD 200 [facility] [place] [address] 12/12/2023 11:45 AM EDT Hem/Onc Treatment Hematology/Oncology Treatment, [place] [address] [place] [address] 12/18/2023 7:05 AM EDT Laboratory Lab Mobile Phlebotomy [facility] [address] [employer] [place] [address] Mvmg, Gml Mobile Home Draw [address] [employer] [place] [address] 12/25/2023 7:05 AM EDT Laboratory Lab Mobile Phlebotomy [facility] [address] [place] [address] Mvmg, Gml Mobile Home Draw [address] [place] [address] 01/01/2024 7:05 AM EDT Laboratory Lab Mobile Phlebotomy [facility] [address] [employer] [place] [address] Mvmg, Gml Mobile Home Draw [address] [place] [address] 01/08/2024 7:00 AM EDT Laboratory Lab Mobile Phlebotomy [facility] [address] [place] [address] Mvmg, Gml Mobile Home Draw [address] [employer] [place] [address] 01/15/2024 7:05 AM EDT Laboratory Lab Mobile Phlebotomy [facility] [address] [employer] [place] [address] Mvmg, Gml Mobile Home Draw [address] [place] [address] 01/22/2024 7:05 AM EDT Laboratory Lab Mobile Phlebotomy [facility] [address] [place] [address] Mvmg, Gml Mobile Home Draw [address] [place] [address] 01/29/2024 7:05 AM EDT Laboratory Lab Mobile Phlebotomy [facility] [address] [place] [address] Mvmg, Gml Mobile Home Draw [address] [place] [address] 02/05/2024 7:00 AM EDT Laboratory Lab Mobile Phlebotomy [facility] [address] [place] [address] Mvmg, Gml Mobile Home Draw [address] [place] [address] 02/05/2024 8:40 AM EDT Office Visit Neurology [facility] [place] 200 [facility] [place], [place] [address] Octavia Goins PA-C 200 [facility] [place] [address] 02/12/2024 7:05 AM EDT Laboratory Lab Mobile Phlebotomy [facility] [address] [place], [place] [address] Mvmg, Gml Mobile Home Draw [address] [place] [address] 02/19/2024 7:05 AM EDT Laboratory Lab Mobile Phlebotomy [facility] [address] [place] [address] Mvmg, Gml Mobile Home Draw [address] [place] [address] 02/26/2024 7:05 AM EDT Laboratory Lab Mobile Phlebotomy [facility] [address] [place] [address] Mvmg, Gml Mobile Home Draw [address] [place] [address] 03/04/2024 7:00 AM EDT Laboratory Lab Mobile Phlebotomy [facility] [address] [employer] [place] [address] Mvmg, Gml Mobile Home Draw 2520 [place] [address] 03/11/2024 7:05 AM EDT Laboratory Lab Mobile Phlebotomy [facility] [address] [facility] [place] [address] Mvmg, Gml Mobile Home Draw 2520 [facility] [place] [address] 03/18/2024 7:05 AM EST Laboratory Lab Mobile Phlebotomy [facility] 2520 [place] [address] Mvmg, Gml Mobile Home Draw 2520 [place] [address] 03/25/2024 7:05 AM EST Laboratory Lab Mobile Phlebotomy [facility] [address] [facility] [place] [address] Mvmg, Gml Mobile Home Draw 2520 [place] [address] 04/01/2024 7:00 AM EST Laboratory Lab Mobile Phlebotomy [facility] [address]20 [place] [address] Mvmg, Gml Mobile Home Draw 2520 [place] [address] 04/08/2024 7:05 AM EST Laboratory Lab Mobile Phlebotomy [facility] 25[address] [facility] [place] [address] Mvmg, Gml Mobile Home Draw [address] [place] [employer] [place] [address] 04/15/2024 7:05 AM EST Laboratory Lab Mobile Phlebotomy [facility] [address] [facility] [place] [address] Mvmg, Gml Mobile Home Draw 2520 [place] [address] 04/22/2024 7:05 AM EST Laboratory Lab Mobile Phlebotomy [facility] [address] [facility] [place] [address] Mvmg, Gml Mobile Home Draw 2520 [place] [address] 04/29/2024 7:05 AM EST Laboratory Lab Mobile Phlebotomy [facility] [address] [facility] [place], [place] [address] Mvmg, Gml Mobile Home Draw 25[address] [facility] [place] [address] 05/05/2024 7:05 AM EST Laboratory Lab Mobile Phlebotomy [facility] [address] [facility] [place] [address] M[facility], Gml Mobile Home Draw 2520 [facility] [place] [address] 09/02/2024 8:20 AM EDT Office Visit Pulmonary Medicine, [facility] 132 [facility] [place] [address] Ish Caba MD [address] [facility] [place] [address] 05/03/2025 7:40 AM EST Office Visit Dermatology [address] [place] [address] Albina Romo PA-C [address] [place] [address] [place] [address] Health Maintenance Due Date Last Done Comments [...] encounter Medical Devices Implanted Type Area Client Service Professional Device Identifier Shelf Expiration Date Model / Serial / Lot Mesh Plug Xlarge [id number] - [id number] Implanted:Qty: 1 on 12/09/2020 by John Zaragoza MD at OR [facility] Left: Groin CR BARD : DAVOL 05/09/2023 [id number] / / [id number] documented as of this encounter Advance Directives [...] Power of Attor coco? No Care Teams Retort Condenser Attendant Relationship Specialty Start Date End Date Michael Collins MD [address] [facility] [place] [address] PCP - General Internal Medicine 03/01/14 documented as of this encounter
--- OUTSIDE RECORDS SUMMARY | 2024-03-26 16:34 | External Medical Summary ---
Author Name Unknown Address Unknown Organization K01:[facility] [place] [facility] [place] [address] [facility] [address] [facility] [address] Laboratory Report Ordering Provider Test Date Status KALPESH SERRANO 10/23/2023 07:37:00 Final Observation Date Value Abnormality Reference (Units ) Status WBC, Total 10/23/2023 07:37:00 6.92 4.00-10.80 (K/uL) Final RBC 10/23/2023 07:37:00 4.28 4.50-5.25 (M/uL) Final Hemoglobin 10/23/2023 07:37:00 14.7 14.0-16.8 (g/dL) Final HCT 10/23/2023 07:37:00 44.8 40.0-48.4 (%) Final MCV 10/23/2023 07:37:00 104.7 82.0-99.5 (fL) Final MCH 10/23/2023 07:37:00 34.3 27.0-34.0 (pg) Final MCHC 10/23/2023 07:37:00 32.8 32.0-36.0 (g/dL) Final RDW 10/23/2023 07:37:00 13.9 11.5-15.5 (%) Final Platelets 10/23/2023 07:37:00 165 140-400 (K/uL) Final MPV 10/23/2023 07:37:00 10.5 6.6-11.1 (fL) Final Nucleated erythrocytes/100 leukocytes [Ratio] in Blood by Automated count 10/23/2023 07:37:00 0 <=0 (/100 WBCs) Final Performing Location [facility] [place] [address] [place] [address]
--- OUTSIDE RECORDS SUMMARY | 2024-03-26 16:34 | External Medical Summary | Summary of Care ---
Author Name Unknown Organization [facility] Address [address] [facility] [place] [address] Phone [phone] Care Team Providers Care Hired Help Name Role Phone Michael Collins MD Primary Care Provi zehra Reason for Visit * Reason Onset Date Comments Precert Future 10/18/2023 Adding cytoxan Encounter Details Date Type Department Care Team (Late st Contact Info) Description 10/18/2023 Telephone Hematology/Oncology Treatment, [place] [address] [place] [address] Morgan Vásquez MD 200 [place] [address] Precert Future (Adding cytoxan) Allergies No known active allergiesdocumented as of this encounter (statuses as of 10/21/2023) Medications Medication Sig Dispensed Refills Start Date End Date Status THEOPHYLLINE ER 450 MG PO [id number]:2 tablet at bedtime Take by mouth. Indications: [...] nostril at bedtime. PATIENT INFORMATION: Kris Galvin [address] [place] [address] [employer] EQUIPMENT [employer]: Jooobz!/TBD ORDER: Please start nocturnal oxygen via nasal [...] signed) Ish Caba MD Pulmonary Medicine, [address] [place] [address] [facility] [facility] Medical License Number: [id number] 1 Each 09/21/2022 Active metFORMIN HCl ER [...] Miscellaneous Notes * Telephone Encounter - Court Reza OSA - 10/21/2023 8:16 AM EDT Spoke to [facility] and schedule apt * Telephone Encounter - Ghada Morgan OSA - 10/21/2023 8:10 AM EDT Patients [facility] returned call to schedule. Please contact [facility] at [phone]. Thank you. * Telephone Encounter - Court [...] PM EDT Order received to add cytoxan. [place] plan adjusted. Waiting for auth. Consent signed 10/17/23. Patient prefers appts. Mobile lab referral replaced for weekly labs. documented in this encounter Plan of Treatment Upcoming Encounters Date Type Department Care Team (Late st Contact Info) Description 10/23/2023 7:05 AM EDT Laboratory Lab Mobile Phlebotomy [facility] [address] [place] [address] Mvmg, Gml Mobile Home Draw [address] [place] [address] 10/24/2023 9:30 AM EDT Hem/Onc Treatment Hematology/Oncology Treatment, [place] [address] [place] [phone] 10/30/2023 7:05 AM EDT Laboratory Lab Mobile Phlebotomy [facility] [address] [place] [address] Mvmg, Gml Mobile Home Draw [address] [place] [address] 11/06/2023 7:05 AM EDT Laboratory Lab Mobile Phlebotomy [facility] [address] [place] [address] Mvmg, Gml Mobile Home Draw 2520 [facility] [place] [address] 11/08/2023 9:40 AM EDT Office Visit Rheumatology [address] [place] [phone] Darnell Higgins MD [address] [place] [address] 11/13/2023 7:00 AM EDT Laboratory Lab Mobile Phlebotomy [facility] [address] [place], [place] [address] Mv[facility], Gml Mobile Home Draw 2520 [facility] [place] [address] 11/15/2023 8:30 AM EDT Hem/Onc Treatment Hematology/Oncology Treatment, [place] [address] [place], [place] [phone] [place], Chair 11 Hem Onc Scenery 200 [facility] [place] [address] 11/20/2023 7:05 AM EDT Laboratory Lab Mobile Phlebotomy [facility] [address] [place] [address] Mvmg, Gml Mobile Home Draw [address] [place] [address] 11/27/2023 7:05 AM EDT Laboratory Lab Mobile Phlebotomy [facility] [address] [place] [address] Mvmg, Gml Mobile Home Draw [address] [place] [address] 12/04/2023 7:05 AM EDT Laboratory Lab Mobile Phlebotomy [facility] 25[address] [facility] [place], [place] [address] Mvmg, Gml Mobile Home Draw [address] Gen [facility] [place], [place] [address] 12/11/2023 7:00 AM EDT Laboratory Lab Mobile Phlebotomy [facility] [address] [place] [address] Mvmg, Gml Mobile Home Draw 2520 [facility] [place], [place] [address] 12/12/2023 11:15 AM EDT Office Visit Hematology/Oncology [facility] 200 [facility], [place] [phone] Morgan Vásquez MD 200 [facility], [place] [address] 12/12/2023 11:45 AM EDT Hem/Onc Treatment Hematology/Oncology Treatment, [place] [address] [place], [place] [phone] 12/18/2023 7:05 AM EDT Laboratory Lab Mobile Phlebotomy [facility] [address] [place], [place] [address] Mvmg, Gml Mobile Home Draw 2520 [facility] [place], [place] [address] 12/25/2023 7:05 AM EDT Laboratory Lab Mobile Phlebotomy [facility] [address] [place] [address] Mvmg, Gml Mobile Home Draw 2520 [facility] [place] [address] 01/01/2024 7:05 AM EDT Laboratory Lab Mobile Phlebotomy [facility] [address] [place], [place] [address] Mvmg, Gml Mobile Home Draw [address] Gen [facility] [place] [address] 01/08/2024 7:00 AM EDT Laboratory Lab Mobile Phlebotomy [facility] [address] [place] [address] Mvmg, Gml Mobile Home Draw [address] [place] [address] 01/15/2024 7:05 AM EDT Laboratory Lab Mobile Phlebotomy [facility] [address] [place] [address] Mvmg, Gml Mobile Home Draw 25[address] [facility] [place] [address] 01/22/2024 7:05 AM EDT Laboratory Lab Mobile Phlebotomy [facility] [address] [place] [address] Mvmg, Gml Mobile Home Draw 25[address] [facility] [place] [address] 01/29/2024 7:05 AM EDT Laboratory Lab Mobile Phlebotomy [facility] [address] [place] [address] Mvmg, Gml Mobile Home Draw 25[address] [facility] [place] [address] 02/05/2024 7:00 AM EDT Laboratory Lab Mobile Phlebotomy [facility] [address] [place] [address] Mvmg, Gml Mobile Home Draw 25[address] [facility] [place] [address] 02/05/2024 8:40 AM EDT Office Visit Neurology [facility] 200 [facility] [place] [address] Octavia Goins PA-C 200 [facility] [place] [address] 02/12/2024 7:05 AM EDT Laboratory Lab Mobile Phlebotomy [facility] [address] [place] [address] Mvmg, Gml Mobile Home Draw 2520 [facility] [place] [address] 02/19/2024 7:05 AM EDT Laboratory Lab Mobile Phlebotomy [facility] [address] [place] [address] Mvmg, Gml Mobile Home Draw 2520 [place] [address] 02/26/2024 7:05 AM EDT Laboratory Lab Mobile Phlebotomy [facility] [address] [place] [address] Mvmg, Gml Mobile Home Draw 2520 [place] [address] 03/04/2024 7:00 AM EDT Laboratory Lab Mobile Phlebotomy [facility] [address] [place] [address] Mvmg, Gml Mobile Home Draw 2520 [place] [address] 03/11/2024 7:05 AM EDT Laboratory Lab Mobile Phlebotomy [facility] [address] [place] [address] Mvmg, Gml Mobile Home Draw 25[address] [place] [address] 03/18/2024 7:05 AM EST Laboratory Lab Mobile Phlebotomy [facility] [address] [place] [address] Mvmg, Gml Mobile Home Draw 25[address] [place] [address] 03/25/2024 7:05 AM EST Laboratory Lab Mobile Phlebotomy [facility] [address] [place] [address] Mvmg, Gml Mobile Home Draw 25[address] [place] [address] 04/01/2024 7:00 AM EST Laboratory Lab Mobile Phlebotomy [facility] [address] [place] [address] Mvmg, Gml Mobile Home Draw 25[address] [place] [address] 04/08/2024 7:05 AM EST Laboratory Lab Mobile Phlebotomy [facility] [address] [place] [address] Mvmg, Gml Mobile Home Draw 25[address] [place] [address] 04/15/2024 7:05 AM EST Laboratory Lab Mobile Phlebotomy [facility] [address] [place] [address] Mvmg, Gml Mobile Home Draw [address] [place] [address] 04/22/2024 7:05 AM EST Laboratory Lab Mobile Phlebotomy [facility] [address] [place] [address] Mvmg, Gml Mobile Home Draw [address] [place] [address] 04/29/2024 7:05 AM EST Laboratory Lab Mobile Phlebotomy [facility] [address] [place] [address] Mvmg, Gml Mobile Home Draw [address] [place] [address] 05/05/2024 7:05 AM EST Laboratory Lab Mobile Phlebotomy [facility] [address] [place] [address] Mvmg, Gml Mobile Home Draw [address] [place] [address] 09/02/2024 8:20 AM EDT Office Visit Pulmonary Medicine, [facility] 132 [facility] [place] [address] Ish Caba MD [address] [place] [address] 05/03/2025 7:40 AM EST Office Visit Dermatology [address] [place] [address] Albina Romo PA-C [address] [place] [address] [place] [address] Health Maintenance Due Date Last Done Comments [...] this encounter Medical Devices Implanted Type Area Liquor Gallery Operator Device Identifier Shelf Expiration Date Model / Serial / Lot Mesh Plug Xlarge [id number] - [id number] Implanted:Qty: 1 on 12/09/2020 by John Zaragoza MD at OR [facility] Left: Groin CR BARD : LUCINDA 05/09/2023 [id number] / / [id number] documented as of this encounter Advance Directives [...] of Attor coco? No Care Teams Hired Help Relationship Specialty Start Date End Date Michael Collins MD [address] [place] [address] [place] [address] PCP - General Internal Medicine 03/01/14 documented as of this encounter
--- OUTSIDE RECORDS SUMMARY | 2024-03-26 16:34 | External Medical Summary | Summary of Care ---
Author Name Unknown Organization [facility] Address [address] [facility] [address] Phone [phone] Care Team Providers Care Seasonal Greenery Bundler Name Role Phone Michael Collins MD Primary Care Provi zehra Reason for Visit * Reason Comments Chemotherapy DarzalexFaspro * Episode Based Medications (Routine) - Pending Review Specialty Diagnoses / Procedures Referred By Contjuanito t Referred To Contact Diagnoses Multiple myeloma not having achieved remission (HCC) Procedures [place] DARATUMUMAB, HYALURONIDASE [place] INJ, CYCLOPHOSPHAMIDE, NOS Morgan Vásquez MD 200 [facility] [place] [address] Anc Hem/Onc Amena You DEPT CLOSED - 03/26/23 200 [facility] [place] [address] Referral ID Status Reason Start Date Expiration Date V isits Requested Visits Authorized [id number] Pending Review 05/28/2022 05/12/2099 99 99 Encounter Details Date Type Department Care Team (Latest Contact Info) Description 09/20/2023 9:15 AM EDT Hem/Onc Treatment Hematology/Oncolog y Treatment, [place] [address] [place] [phone] Kenyatta, Chair 8 Hem Onc [place] [address] Amena Osman [place] [address] Multiple myeloma not having achieved remission (HCC)*; Encounter for antineoplastic immunotherapy Allergies No known active allergiesdocumented as of this encounter (statuses as of 10/20/2023) Medications Medication Sig Dispensed Refills Start Date End Date Status THEOPHYLLINE ER 450 MG PO [id number]: 2 tablet at bedtime Take by mouth. [...] Take by mouth. Active Multiple Vitamins-Mineral s ([facility] IMMUNITY SUPPORT) CHEW [...] nostril at bedtime. PATIENT INFORMATION: Kris Galvin [address] [place] [address] [employer]: [employer] ORDER: Please start nocturnal oxygen via [...] signed) Ish Caba MD Pulmonary Medicine, [address] [place] [address] [place] [facility] Medical License Number: [id number] 1 Each 3 Active metFORMIN HCl ER [...] mRNA, LNP-s, No Pre serve, 2-Dose Series ([employer]) 01/17/2021,08/05/2020,07/08/2020 COVID-19, LNP-s, No Preserve , Bryant-sucrose, [...] Mobile Phlebotomy [facility] [address], [place] [address] Mvmg, Gml Mobile Home Draw [address] [place], [place] [address] 10/30/2023 7:05 AM EDT Laboratory Lab Mobile Phlebotomy [facility] [address] [place] [address] Mvmg, Gml Mobile Home Draw [address] [place], [place] [address] 11/06/2023 7:05 AM EDT Laboratory Lab Mobile Phlebotomy [facility] [address] Cecile Osman [place], [place] [address] Mvmg, Gml Mobile Home Draw [address] [place], [place] [address] 11/08/2023 9:40 AM EDT Office Visit Rheumatology [address] [place] [phone] Darnell Higgins MD [address] [place] [address] 11/13/2023 7:00 AM EDT Laboratory Lab Mobile Phlebotomy [facility] [address] [place], [place] [address] Mvmg, Gml Mobile Home Draw [address] [place] [address] 11/15/2023 8:30 AM EDT Hem/Onc Treatment Hematology/Oncology Treatment, [place] [address] [place] [phone] Kenyatta, Chair 11 Hem Onc [address] [place] [address] 11/20/2023 7:05 AM EDT Laboratory Lab Mobile Phlebotomy [facility] [address] [place] [address] Mvmg, Gml Mobile Home Draw [address] [place] [address] 11/27/2023 7:05 AM EDT Laboratory Lab Mobile Phlebotomy [facility] [address] [place], [place] [address] Mvmg, Gml Mobile Home Draw [address] [place] [address] 12/04/2023 7:05 AM EDT Laboratory Lab Mobile Phlebotomy [facility] [address] [place] [address] Mvmg, Gml Mobile Home Draw [address] [place] [address] 12/11/2023 7:00 AM EDT Laboratory Lab Mobile Phlebotomy [facility] [address] [place], [place] [address] Mvmg, Gml Mobile Home Draw [address] Cecile Osman [place], [place] [address] 12/12/2023 11:15 AM EDT Office Visit Hematology/Oncology [facility] 200 [facility], [place] [phone] Morgan Vásquez MD 200 [place] [address] 12/12/2023 11:45 AM EDT Hem/Onc Treatment Hematology/Oncology Treatment, [place] 200 [facility], [place] [phone] 12/18/2023 7:05 AM EDT Laboratory Lab Mobile Phlebotomy [facility] [address] [place] [address] Mvmg, Gml Mobile Home Draw [address] [place] [address] 12/25/2023 7:05 AM EDT Laboratory Lab Mobile Phlebotomy [facility] [address] [place] [address] Mvmg, Gml Mobile Home Draw [address] [place] [address] 01/01/2024 7:05 AM EDT Laboratory Lab Mobile Phlebotomy [facility] [address] [place] [address] Mvmg, Gml Mobile Home Draw [address]20 [place] [address] 01/08/2024 7:00 AM EDT Laboratory Lab Mobile Phlebotomy [facility] [address] [place] [address] Mvmg, Gml Mobile Home Draw [address] [place] [address] 01/15/2024 7:05 AM EDT Laboratory Lab Mobile Phlebotomy [facility] [address] [place] [address] Mvmg, Gml Mobile Home Draw [address] [place] [address] 01/22/2024 7:05 AM EDT Laboratory Lab Mobile Phlebotomy [facility] [address] [place] [address] Mvmg, Gml Mobile Home Draw [address] [place] [address] 01/29/2024 7:05 AM EDT Laboratory Lab Mobile Phlebotomy [facility] [address] [place] [address] Mvmg, Gml Mobile Home Draw [address] [place] [address] 02/05/2024 7:00 AM EDT Laboratory Lab Mobile Phlebotomy [facility] [address] [place] [address] Mvmg, Gml Mobile Home Draw [address] [place] [address] 02/05/2024 8:40 AM EDT Office Visit [facility] [place] 200 [facility] [place], [place] [address] Octavia Goins PA-C 200 [facility] [place] [address] 02/12/2024 7:05 AM EDT Laboratory Lab Mobile Phlebotomy M[facility] [address]20 [place] [address] Mvmg, Gml Mobile Home Draw [address] [place] [address] 02/19/2024 7:05 AM EDT Laboratory Lab Mobile Phlebotomy [facility] [address] [place] [address] Mvmg, Gml Mobile Home Draw [address] [place] [address] 02/26/2024 7:05 AM EDT Laboratory Lab Mobile Phlebotomy [facility] [address] [place] [address] Mvmg, Gml Mobile Home Draw [address] [place] [address] 03/04/2024 7:00 AM EDT Laboratory Lab Mobile Phlebotomy [facility] [address] [place] [address] Mvmg, Gml Mobile Home Draw [address] [place] [address] 03/11/2024 7:05 AM EDT Laboratory Lab Mobile Phlebotomy [facility] [address] [place] [address] Mvmg, Gml Mobile Home Draw [address] [place] [address] 03/18/2024 7:05 AM EST Laboratory Lab Mobile Phlebotomy [facility] [address] [place] [address] Mvmg, Gml Mobile Home Draw [address] [place] [address] 03/25/2024 7:05 AM EST Laboratory Lab Mobile Phlebotomy [facility] [address] [place] [address] Mvmg, Gml Mobile Home Draw [address] [place] [address] 04/01/2024 7:00 AM EST Laboratory Lab Mobile Phlebotomy [facility] [address] [place] [address] Mvmg, Gml Mobile Home Draw [address] [place] [place] [address] 04/08/2024 7:05 AM EST Laboratory Lab Mobile Phlebotomy [facility] [address] [facility] [place] [address] Mvmg, Gml Mobile Home Draw [address] [place] [place] [address] 04/15/2024 7:05 AM EST Laboratory Lab Mobile Phlebotomy M[facility] [address] [facility] [place] [address] Mvmg, Gml Mobile Home Draw [address] [place] [place] [address] 04/22/2024 7:05 AM EST Laboratory Lab Mobile Phlebotomy M[facility] [address] [facility] [place] [address] Mvmg, Gml Mobile Home Draw [address] [place] [place] [address] 04/29/2024 7:05 AM EST Laboratory Lab Mobile Phlebotomy [facility] [address] [facility] [place] [address] Mvmg, Gml Mobile Home Draw [address] [place] [place] [address] 05/05/2024 7:05 AM EST Laboratory Lab Mobile Phlebotomy M[facility] [address] [facility] [place] [address] Mvmg, Gml Mobile Home Draw [address] [place] [place] [address] 09/02/2024 8:20 AM EDT Office Visit Pulmonary Medicine, [facility] [address] [place] [address] Ish Caba MD [address] [place] [address] 05/03/2025 7:40 AM EST Office Visit Dermatology [address] [place] [address] Albina Romo PA-C [address] [place] [address] [place] [address] Health Maintenance Due Date Last Done Comments [...] this encounter Medical Devices Implanted Type Area Crop Nutrition Scientist Device Identifier Shelf Expiration Date Model / Serial / Lot Mesh Plug Xlarge [id number] - [id number] Implanted:Qty: 1 on 12/09/2020 by John Zaragoza MD at OR [facility] Left: Demond RIVAS BARD : LUCINDA 05/09/2023 [id number] / / [id number] documented as of this encounter Visit Diagnoses [...] Given 09/20/2023 9:30 AM EDT 650 mg Pqxtllyfxxe-ragoevlkoamwn-h ihj (Darzalex Faspro) 1800 mg-56719 units/ 15 ml subcut inj 15 mL, [...] Power of Attor coco? No Care Teams Seasonal Greenery Bundler Relationship Specialty Start Date End Date Michael Collins MD [address] [place] [address] [place] [address] PCP - General Internal Medicine 03/01/14 documented as of this encounter
--- OUTSIDE RECORDS SUMMARY | 2024-03-26 16:34 | External Medical Summary | Summary of Care ---
Author Name Unknown Organization [facility] Address [address] [facility] [address] Phone [phone] Care Team Providers Care Magistrate Name Role Phone Michael Collins MD Primary Care Provi zehra Reason for Visit * Reason Comments Chemotherapy DarzalexFaspro * Episode Based Medications (Routine) - Pending Review Specialty Diagnoses / Procedures Referred By Contjuanito t Referred To Contact Diagnoses Multiple myeloma not having achieved remission (HCC) Procedures [place] DARATUMUMAB, HYALURONIDASE [place] INJ, CYCLOPHOSPHAMIDE, NOS Morgan Vásquez MD 200 [facility] [place] [address] Anc Hem/Onc Amena You DEPT CLOSED - 03/26/23 200 [facility] [place] [address] Referral ID Status Reason Start Date Expiration Date V isits Requested Visits Authorized [id number] Pending Review 05/28/2022 05/12/2099 99 99 Encounter Details Date Type Department Care Team (Latest Contact Info) Description 09/20/2023 9:15 AM EDT Hem/Onc Treatment Hematology/Oncolog y Treatment, [place] [address] [place] [phone] Kenyatta, Chair 8 Hem Onc [place] [address] Amena Osman [place] [address] Multiple myeloma not having achieved remission (HCC)*; Encounter for antineoplastic immunotherapy Allergies No known active allergiesdocumented as of this encounter (statuses as of 10/20/2023) Medications Medication Sig Dispensed Refills Start Date End Date Status THEOPHYLLINE ER 450 MG PO [id number]: 2 tablet at bedtime Take by mouth. [...] Take by mouth. Active Multiple Vitamins-Mineral s ([facility] IMMUNITY SUPPORT) CHEW [...] nostril at bedtime. PATIENT INFORMATION: Kris Galvin [address] [place] [address] [employer]: [employer] ORDER: Please start nocturnal oxygen via nasal [...] signed) Ish Caba MD Pulmonary Medicine, [address] [place] [address] [place] [facility] Medical License Number: [id number] 1 Each 3 Active metFORMIN HCl ER [...] mRNA, LNP-s, No Pre serve, 2-Dose Series ([employer]) 01/17/2021,08/05/2020,07/08/2020 COVID-19, LNP-s, No Preserve , Bryant-sucrose, [...] Mobile Phlebotomy MVMG [address], [place] [address] Mvmg, Gml Mobile Home Draw [address] [place], [place] [address] 10/30/2023 7:05 AM EDT Laboratory Lab Mobile Phlebotomy [facility] [address] [place] [address] Mvmg, Gml Mobile Home Draw [address] [place], [place] [address] 11/06/2023 7:05 AM EDT Laboratory Lab Mobile Phlebotomy M[facility] [address] [facility] Cecile Osman [place], [place] [address] Mvmg, Gml Mobile Home Draw [address] [place], [place] [address] 11/08/2023 9:40 AM EDT Office Visit Rheumatology [address] [place] [phone] Darnell Higgins MD [address] [place] [address] 11/13/2023 7:00 AM EDT Laboratory Lab Mobile Phlebotomy [facility] [address] [place], [place] [address] Mvmg, Gml Mobile Home Draw [address] [place] [address] 11/15/2023 8:30 AM EDT Hem/Onc Treatment Hematology/Oncology Treatment, [place] [address] [place] [phone] Kenyatta, Chair 11 Hem Onc [address] [address] [place] [address] 11/20/2023 7:05 AM EDT Laboratory Lab Mobile Phlebotomy [facility] [address] [place] [address] Mvmg, Gml Mobile Home Draw [address] [place] [address] 11/27/2023 7:05 AM EDT Laboratory Lab Mobile Phlebotomy [facility] [address] [place], [place] [address] Mvmg, Gml Mobile Home Draw [address] [place] [address] 12/04/2023 7:05 AM EDT Laboratory Lab Mobile Phlebotomy [facility] [address] [place] [address] Mvmg, Gml Mobile Home Draw [address] [place] [address] 12/11/2023 7:00 AM EDT Laboratory Lab Mobile Phlebotomy [facility] [address] [place], [place] [address] Mvmg, Gml Mobile Home Draw [address] Cecile Osman [place], [place] [address] 12/12/2023 11:15 AM EDT Office Visit Hematology/Oncology [facility] 200 [facility], [place] [phone] Morgan Vásquez MD [address] [place] [address] 12/12/2023 11:45 AM EDT Hem/Onc Treatment Hematology/Oncology Treatment, [place] 200 [facility], [place] [phone] 12/18/2023 7:05 AM EDT Laboratory Lab Mobile Phlebotomy M[facility] [address] [place] [address] Mvmg, Gml Mobile Home Draw [address] [place] [address] 12/25/2023 7:05 AM EDT Laboratory Lab Mobile Phlebotomy [facility] [address] [place] [address] Mvmg, Gml Mobile Home Draw [address] [place] [address] 01/01/2024 7:05 AM EDT Laboratory Lab Mobile Phlebotomy M[facility] [address] [place] [address] Mvmg, Gml Mobile Home Draw [address] [place] [address] 01/08/2024 7:00 AM EDT Laboratory Lab Mobile Phlebotomy M[facility] [address] [place] [address] Mvmg, Gml Mobile Home Draw [address] [place] [address] 01/15/2024 7:05 AM EDT Laboratory Lab Mobile Phlebotomy M[facility] [address] [place] [address] Mvmg, Gml Mobile Home Draw [address] [place] [address] 01/22/2024 7:05 AM EDT Laboratory Lab Mobile Phlebotomy M[facility] [address] [place] [address] Mvmg, Gml Mobile Home Draw [address] [place] [address] 01/29/2024 7:05 AM EDT Laboratory Lab Mobile Phlebotomy MVM[facility] [address] [place] [address] Mvmg, Gml Mobile Home Draw [address] [place] [address] 02/05/2024 7:00 AM EDT Laboratory Lab Mobile Phlebotomy M[facility] [address] [place] [address] Mvmg, Gml Mobile Home Draw [address] [facility] [place] [address] 02/05/2024 8:40 AM EDT Office Visit [facility] [place] 200 [facility] Osman [place], [place] [address] Octavia Goins PA-C 200 [place] [address] 02/12/2024 7:05 AM EDT Laboratory Lab Mobile Phlebotomy MVM[facility] [address] [place] [address] Mvmg, Gml Mobile Home Draw [address] [place] [address] 02/19/2024 7:05 AM EDT Laboratory Lab Mobile Phlebotomy MVM[facility] [address] [place] [address] Mvmg, Gml Mobile Home Draw [address] [place] [address] 02/26/2024 7:05 AM EDT Laboratory Lab Mobile Phlebotomy M[facility] [address] [place] [address] Mvmg, Gml Mobile Home Draw [address] [place] [address] 03/04/2024 7:00 AM EDT Laboratory Lab Mobile Phlebotomy M[facility] [address] [place] [address] Mvmg, Gml Mobile Home Draw [address] [place] [address] 03/11/2024 7:05 AM EDT Laboratory Lab Mobile Phlebotomy MVM[facility] [address] [place] [address] Mvmg, Gml Mobile Home Draw [address] [place] [address] 03/18/2024 7:05 AM EST Laboratory Lab Mobile Phlebotomy MVM[facility] [address] [place] [address] Mvmg, Gml Mobile Home Draw [address] [place] [address] 03/25/2024 7:05 AM EST Laboratory Lab Mobile Phlebotomy M[facility] [address] [place] [address] Mvmg, Gml Mobile Home Draw [address] [place] [address] 04/01/2024 7:00 AM EST Laboratory Lab Mobile Phlebotomy M[facility] [address] [place] [address] Mvmg, Gml Mobile Home Draw [address] [facility] [place] [address] 04/08/2024 7:05 AM EST Laboratory Lab Mobile Phlebotomy M[facility] [address] [facility] [place] [address] Mvmg, Gml Mobile Home Draw [address] [facility] [place] [address] 04/15/2024 7:05 AM EST Laboratory Lab Mobile Phlebotomy MVMG [address] [facility] [place] [address] Mvmg, Gml Mobile Home Draw [address] [facility] [place] [address] 04/22/2024 7:05 AM EST Laboratory Lab Mobile Phlebotomy M[facility] [address] [facility] [place] [address] Mvmg, Gml Mobile Home Draw [address] [facility] [place] [address] 04/29/2024 7:05 AM EST Laboratory Lab Mobile Phlebotomy M[facility] [address] [facility] [place] [address] Mvmg, Gml Mobile Home Draw [address] [facility] [place] [address] 05/05/2024 7:05 AM EST Laboratory Lab Mobile Phlebotomy M[facility] [address] [facility] [place] [address] Mvmg, Gml Mobile Home Draw [address] [facility] [place] [address] 09/02/2024 8:20 AM EDT Office Visit Pulmonary Medicine, [facility] [address] [place] [address] Ish Caba MD [address] [place] [address] 05/03/2025 7:40 AM EST Office Visit Dermatology [address] [place] [address] Albina Romo PA-C [address] [place] [address] [place] [address] Health Maintenance Due Date Last Done Comments [...] this encounter Medical Devices Implanted Type Area Compressor Operator Device Identifier Shelf Expiration Date Model / Serial / Lot Mesh Plug Xlarge [id number] - [id number] Implanted:Qty: 1 on 12/09/2020 by John Zaragoza MD at OR [facility] Left: Demond RIVAS BARD : LUCINDA 05/09/2023 [id number] / / [id number] documented as of this encounter Visit Diagnoses [...] Given 09/20/2023 9:30 AM EDT 650 mg Svcheegqvjj-hfajrmbouhdvl-v ihj (Darzalex Faspro) 1800 mg-42672 units/ 15 ml subcut inj 15 mL, [...] Power of Attor coco? No Care Teams Magistrate Relationship Specialty Start Date End Date Michael Collins MD [address] [place] [address] [place] [address] PCP - General Internal Medicine 03/01/14 documented as of this encounter
--- OUTSIDE RECORDS SUMMARY | 2024-03-26 16:35 | External Medical Summary | Summary of Care ---
Author Name Unknown Organization [facility] Address [address] [facility] [facility] [place] [address] Phone [phone] Care Team Providers Care Gas Regulator Repairer Name Role Phone Michael Collins MD Primary Care Provi zehra Encounter Details Date Type Department Care Team (Late st Contact Info) Description 10/18/2023 Orders Only Hematology/Oncology Amena You [place] [address] [place] [address] Morgan Vásquez MD [address] [facility] [address] Multiple myeloma not having achieved remission (HCC)* Allergies No known active allergiesdocumented as of this encounter (statuses as of 10/18/2023) Medications Medication Sig Dispensed Refills Start Date End Date Status THEOPHYLLINE ER 450 MG PO ZM64Xgyngcojeli:2 tablet at bedtime Take by mouth. Indications: [...] nostril at bedtime. PATIENT INFORMATION: Kris Galvin [address] [place] [address] [employer] Cloudwise: [email or web address] ORDER: Please start nocturnal oxygen via nasal [...] signed) Ish Caba MD Pulmonary Medicine, [address] [place] [address] [place] [facility] Medical License Number: [id number] 1 Each 09/21/2022 Active metFORMIN HCl ER [...] as of this encounter (statuses as of 10/18/2023) Active Problems Problem Noted Date Diagnosed Date [...] as of this encounter (statuses as of 10/18/2023) Resolved Problems Problem Noted Date Diagnosed Date Resolved Date Asthma in remission 08/28/2022 08/29/19 Asthma, mild persistent 08/28/202208/11 Asthma, severe persistent 08/28/2022 Stem cell transplant candidate 08/17/2019 09/02/2019 documented as of this encounter (statuses as of 10/18/2023) Immunizations Name Administration Dates Next Due COVID-19 mRNA, LNP-s, No Pre serve, 2-Dose Series ([employer]) 01/17/2021,08/05/2020,07/08/2020 COVID-19, LNP-s, No Preserve , Bryant-sucrose, [...] Progress Notes * Morgan Vásquez MD - 10/18/2023 8:15 AM EDT - D/C pomalidomide, start Cyclophosphamide 300 mg/m IV weekly. Decadron 40 mg every weekly, continue Darzalex subq as we planned. - discontinuing pomalidomide because of high co-payment On 10/17/2023, I spoke with him briefly and discussed about starting cyclophosphamide, reviewed with the side effect profile and treatment schedule and he is in agreement for that. As he will not be taking pomalidomide, there is no need for additional anticoagulation with Eliquis. documented in this encounter Plan of Treatment Upcoming Encounters Date Type Department Care Team (Latest Contact Info) Description 10/18/2023 9:00 AM EDT Pharmacy Pharmacy Hematology Oncology [facility] [address] [place] [address] [facility] [place] Hem/Onc [address] [place] [address] Multiple myeloma not having achieved remission (HCC)* 10/23/2023 7:05 AM EDT Laboratory Lab Mobile Phlebotomy [facility] [address] [place] [address] Mvmg, Gml Mobile Home Draw [address] [place] [address] 10/30/2023 7:05 AM EDT Laboratory Lab Mobile Phlebotomy [facility] [address] [place] [address] Mvmg, Gml Mobile Home Draw [address] [place], [place] [address] 11/06/2023 7:05 AM EDT Laboratory Lab Mobile Phlebotomy [facility] [address] [place], [place] [address] Mvmg, Gml Mobile Home Draw [address] [place] [address] 11/08/2023 9:40 AM EDT Office Visit Rheumatology [address] [place] [phone] Darnell Higgins MD [address] [place] [address] 11/13/2023 7:00 AM EDT Laboratory Lab Mobile Phlebotomy [facility] [address] [place] [address] Mvmg, Gml Mobile Home Draw [address] [place] [address] 11/15/2023 8:30 AM EDT Hem/Onc Treatment Hematology/Oncology Treatment, [place] 200 [place] [phone] Park, Chair 11 Hem Onc [facility] [address] [facility] [place] [address] 11/20/2023 7:05 AM EDT Laboratory Lab Mobile Phlebotomy [facility] [address] [place] [address] Mvmg, Gml Mobile Home Draw [address] [place] [address] 11/27/2023 7:05 AM EDT Laboratory Lab Mobile Phlebotomy [facility] [address] [place] [address] Mvmg, Gml Mobile Home Draw [address] [place] [address] 12/04/2023 7:05 AM EDT Laboratory Lab Mobile Phlebotomy [facility] [address] [place] [address] Mvmg, Gml Mobile Home Draw [address] [place] [address] 12/11/2023 7:00 AM EDT Laboratory Lab Mobile Phlebotomy [facility] [address] [place] [address] Mvmg, Gml Mobile Home Draw [address] [place] [address] 12/12/2023 11:15 AM EDT Office Visit Hematology/Oncology [facility] Kenyatta [place] 200 [facility] [place] [address] Morgan Vásquez MD 200 [facility] [address] 12/12/2023 11:45 AM EDT Hem/Onc Treatment Hematology/Oncology Treatment, [place] 200 [place] [address] 12/18/2023 7:05 AM EDT Laboratory Lab Mobile Phlebotomy [facility] [address] [facility] [place] [address] Mvmg, Gml Mobile Home Draw 2520 [place] [address] 12/25/2023 7:05 AM EDT Laboratory Lab Mobile Phlebotomy [facility] [address] [place] [address] Mvmg, Gml Mobile Home Draw [address]20 [facility] [address] 01/01/2024 7:05 AM EDT Laboratory Lab Mobile Phlebotomy [facility] [address] [place] [address] Mvmg, Gml Mobile Home Draw [address]20 [place] [address] 01/08/2024 7:00 AM EDT Laboratory Lab Mobile Phlebotomy [facility] [address] [place] [address] Mvmg, Gml Mobile Home Draw [address] [place] [address] 01/15/2024 7:05 AM EDT Laboratory Lab Mobile Phlebotomy [facility] [address] [place] [address] Mvmg, Gml Mobile Home Draw [address]20 [place] [address] 01/22/2024 7:05 AM EDT Laboratory Lab Mobile Phlebotomy [facility] [address] [place] [employer] [address] Mvmg, Gml Mobile Home Draw [address]20 [facility] [place] [address] 01/29/2024 7:05 AM EDT Laboratory Lab Mobile Phlebotomy [facility] [address] [place] [address] Mvmg, Gml Mobile Home Draw [address] [facility] [place] [address] 02/05/2024 7:00 AM EDT Laboratory Lab Mobile Phlebotomy [facility] [address] [place] [address] Mvmg, Gml Mobile Home Draw [address] [place] [address] 02/05/2024 8:40 AM EDT Office Visit Neurology [facility] [place] [address] [place] [address] Octavia Goins PA-C 200 [facility] [place] [address] 02/12/2024 7:05 AM EDT Laboratory Lab Mobile Phlebotomy [facility] [address] [email or web address] [address] Mvmg, Gml Mobile Home Draw [address] [place] [address] 02/19/2024 7:05 AM EDT Laboratory Lab Mobile Phlebotomy [facility] [address] [place] [address] Mvmg, Gml Mobile Home Draw [address] [facility] [place] [address] 02/26/2024 7:05 AM EDT Laboratory Lab Mobile Phlebotomy [facility] [address] [place] [address] Mvmg, Gml Mobile Home Draw [address] [place] [address] 03/04/2024 7:00 AM EDT Laboratory Lab Mobile Phlebotomy [facility] [address] [place] [address] Mvmg, Gml Mobile Home Draw [address] [place] [address] 03/11/2024 7:05 AM EDT Laboratory Lab Mobile Phlebotomy [facility] [address] [place] [address] Mvmg, Gml Mobile Home Draw [address] [place] [address] 03/18/2024 7:05 AM EST Laboratory Lab Mobile Phlebotomy [facility] [address] [facility] [place] [address] Mvmg, Gml Mobile Home Draw 2520 [facility] [address] 03/25/2024 7:05 AM EST Laboratory Lab Mobile Phlebotomy [facility] [address] [place] [address] Mvmg, Gml Mobile Home Draw 2520 [place] [address] 04/01/2024 7:00 AM EST Laboratory Lab Mobile Phlebotomy [facility] [address] [place] [address] Mvmg, Gml Mobile Home Draw [address] [facility] [address] 04/08/2024 7:05 AM EST Laboratory Lab Mobile Phlebotomy [facility] [address] [place] [address] Mvmg, Gml Mobile Home Draw [address] [place] [address] 04/15/2024 7:05 AM EST Laboratory Lab Mobile Phlebotomy [facility] [address] [place] [address] Mvmg, Gml Mobile Home Draw [address]20 [place] [address] 04/22/2024 7:05 AM EST Laboratory Lab Mobile Phlebotomy [facility] [address] [place] [address] Mvmg, Gml Mobile Home Draw [address]20 [place] [address] 04/29/2024 7:05 AM EST Laboratory Lab Mobile Phlebotomy [facility] [address] [place] [address] Mvmg, Gml Mobile Home Draw [address] [place] [address] 05/05/2024 7:05 AM EST Laboratory Lab Mobile Phlebotomy [facility] [address] [place] [address] Mvmg, Gml Mobile Home Draw [address]20 [place] [address] 09/02/2024 8:20 AM EDT Office Visit Pulmonary Medicine, [facility] [address] [place] [address] Ish Caba MD [address] [place] [address] 05/03/2025 7:40 AM EST Office Visit Dermatology [address] [place] [address] Albina Romo PA-C [address] [place] [address] [place] [address] Health Maintenance Due Date Last Done Comments [...] this encounter Medical Devices Implanted Type Area Merchandising Consultant Device Identifier Shelf Expiration Date Model / Serial / Lot Mesh Plug Xlarge [id number] - [id number] Implanted:Qty: 1 on 12/09/2020 by John Zaragoza MD at OR [facility] Left: Demond RIVAS BARD : LUCINDA 05/09/2023 [id number] / / [id number] documented as of this encounter Visit Diagnoses Diagnosis Multiple myeloma not having achieved remission (HCC)- Primary Multiple myeloma, without mention of having achieved remission Multiple myeloma not having achieved remission (HCC)- [...] of Attor coco? No Care Teams Gas Regulator Repairer Relationship Specialty Start Date End Date Michael Collins MD [address] [place] [address] [place] [address] PCP - General Internal Medicine 03/01/14 documented as of this encounter
--- OUTSIDE RECORDS SUMMARY | 2024-03-26 16:35 | External Medical Summary | Summary of Care ---
Author Name Unknown Organization [facility] Address [address] [place] [address] Phone [phone] Care Team Providers Care Stone Operator Name Role Phone Michael Collins MD Primary Care Provi zehra Reason for Visit * Reason Comments Chemotherapy DarzalexFaspro * Episode Based Medications (Routine) - Pending Review Specialty Diagnoses / Procedures Referred By Contjuanito t Referred To Contact Diagnoses Multiple myeloma not having achieved remission (HCC) Procedures WA DARATUMUMAB, HYALURONIDASE [place] INJ, CYCLOPHOSPHAMIDE, NOS Morgan Vásquez MD 200 [facility] [place] [address] Anc Hem/Onc Amena You DEPT CLOSED - 03/26/23 200 [facility] [place] [address] Referral ID Status Reason Start Date Expiration Date V isits Requested Visits Authorized [id number] Pending Review 05/28/2022 05/12/2099 99 99 Encounter Details Date Type Department Care Team (Latest Contact Info) Description 09/20/2023 9:15 AM EDT Hem/Onc Treatment Hematology/Oncolog y Treatment, [place] [address] [place] [address] Kenyatta, Chair 8 Hem Onc [place] [address] Amena [place] [place] [address] Multiple myeloma not having achieved remission (HCC)*; Encounter for antineoplastic immunotherapy Allergies No known active allergiesdocumented as of this encounter (statuses as of 10/20/2023) Medications Medication Sig Dispensed Refills Start Date End Date Status THEOPHYLLINE ER 450 MG PO GD92Jqtloejrtzi: 2 tablet at bedtime Take by mouth. [...] Take by mouth. Active Multiple Vitamins-Mineral s ([facility]MMUN[facility]) CHEW [...] nostril at bedtime. PATIENT INFORMATION: Kris Galvin [address] [place] [address] [employer]: [employer] ORDER: Please start nocturnal oxygen via nasal [...] (electronically signed) Ish Caba MD Pulmonary Medicine, [address] [place] [address] [place] [facility] Medical License Number: [id number] 1 Each 3 Active metFORMIN HCl ER [...] with loss of consciousness of 30 elena lcuio or less 01/03/2012 Acute, but ill-defined, cerebrovascular [...] mRNA, LNP-s, No Pre serve, 2-Dose Series ([employer]) 01/17/2021,08/05/2020,07/08/2020 COVID-19, LNP-s, No Preserve , Bryant-sucrose, [...] Mobile Phlebotomy [facility] [address], [place] [address] Mvmg, Gml Mobile Home Draw [address] [place], [place] [address] 10/30/2023 7:05 AM EDT Laboratory Lab Mobile Phlebotomy [facility] [address] [place] [address] Mvmg, Gml Mobile Home Draw [address] [place], [place] [address] 11/06/2023 7:05 AM EDT Laboratory Lab Mobile Phlebotomy [facility] [address] [employer] Cecile Osman [place], [place] [address] Mvmg, Gml Mobile Home Draw [address] [place], [place] [address] 11/08/2023 9:40 AM EDT Office Visit Rheumatology [address] [place] [address] Darnell Higgins MD [address] [place] [address] 11/13/2023 7:00 AM EDT Laboratory Lab Mobile Phlebotomy [facility] [address] [place], [place] [address] Mvmg, Gml Mobile Home Draw [address] [place] [address] 11/15/2023 8:30 AM EDT Hem/Onc Treatment Hematology/Oncology Treatment, [place] [address] [place] [phone] Kenyatta, Chair 11 Hem Onc [address] [place] [address] 11/20/2023 7:05 AM EDT Laboratory Lab Mobile Phlebotomy [facility] [address] [place] [address] Mvmg, Gml Mobile Home Draw [address] [place] [address] 11/27/2023 7:05 AM EDT Laboratory Lab Mobile Phlebotomy [facility] [address] [place], [place] [address] Mvmg, Gml Mobile Home Draw [address] [place] [address] 12/04/2023 7:05 AM EDT Laboratory Lab Mobile Phlebotomy [facility] [address] [place] [address] Mvmg, Gml Mobile Home Draw [address] [place] [address] 12/11/2023 7:00 AM EDT Laboratory Lab Mobile Phlebotomy [facility] [address] [place], [place] [address] Mvmg, Gml Mobile Home Draw [address] [place] Cecile Osman [place], [place] [address] 12/12/2023 11:15 AM EDT Office Visit Hematology/Oncology [facility] 200 [facility], [place] [phone] Morgan Vásquez MD 200 [place] [address] 12/12/2023 11:45 AM EDT Hem/Onc Treatment Hematology/Oncology Treatment, [place] 200 [facility], [place] [address] 12/18/2023 7:05 AM EDT Laboratory Lab Mobile Phlebotomy [facility] [address] [place] [address] Mvmg, Gml Mobile Home Draw [address] [place] [address] 12/25/2023 7:05 AM EDT Laboratory Lab Mobile Phlebotomy [facility] [address] [place] [address] Mvmg, Gml Mobile Home Draw [address] [place] [address] 01/01/2024 7:05 AM EDT Laboratory Lab Mobile Phlebotomy [facility] [address] [place] [address] Mvmg, Gml Mobile Home Draw [address]20 [place] [address] 01/08/2024 7:00 AM EDT Laboratory Lab Mobile Phlebotomy [facility] [address] [place] [address] Mvmg, Gml Mobile Home Draw [address] [place] [address] 01/15/2024 7:05 AM EDT Laboratory Lab Mobile Phlebotomy [facility] [address] [place] [address] Mvmg, Gml Mobile Home Draw [address] [place] [address] 01/22/2024 7:05 AM EDT Laboratory Lab Mobile Phlebotomy [facility] [address] [place] [address] Mvmg, Gml Mobile Home Draw [address] [place] [address] 01/29/2024 7:05 AM EDT Laboratory Lab Mobile Phlebotomy [facility] [address] [place] [address] Mvmg, Gml Mobile Home Draw [address] [place] [address] 02/05/2024 7:00 AM EDT Laboratory Lab Mobile Phlebotomy [facility] [address] [place] [address] Mvmg, Gml Mobile Home Draw [address] [place] [address] 02/05/2024 8:40 AM EDT Office Visit [facility]rology [facility] [place] [address] [facility] [place], [place] [address] Octavia Goins PA-C 200 [facility] [place] [address] 02/12/2024 7:05 AM EDT Laboratory Lab Mobile Phlebotomy [facility] [address]20 [facility] [place] [address] Mvmg, Gml Mobile Home Draw [address] [facility] [place] [address] 02/19/2024 7:05 AM EDT Laboratory Lab Mobile Phlebotomy [facility] [address] [facility] [place] [address] Mvmg, Gml Mobile Home Draw [address] [facility] [place] [address] 02/26/2024 7:05 AM EDT Laboratory Lab Mobile Phlebotomy [facility] [address] [place] [address] Mvmg, Gml Mobile Home Draw [address] [facility] [place] [address] 03/04/2024 7:00 AM EDT Laboratory Lab Mobile Phlebotomy [facility] [address] [place] [address] Mvmg, Gml Mobile Home Draw [address] [facility] [place] [address] 03/11/2024 7:05 AM EDT Laboratory Lab Mobile Phlebotomy M[facility] [address] [facility] [place] [address] Mvmg, Gml Mobile Home Draw [address] [facility] [place] [address] 03/18/2024 7:05 AM EST Laboratory Lab Mobile Phlebotomy [facility] [address] [facility] [place] [address] Mvmg, Gml Mobile Home Draw [address] [facility] [place] [address] 03/25/2024 7:05 AM EST Laboratory Lab Mobile Phlebotomy [facility] [address] [place] [address] Mvmg, Gml Mobile Home Draw [address]20 [facility] [place] [address] 04/01/2024 7:00 AM EST Laboratory Lab Mobile Phlebotomy M[facility] [address] [facility] [place] [address] Mvmg, Gml Mobile Home Draw [address] [place] [address] 04/08/2024 7:05 AM EST Laboratory Lab Mobile Phlebotomy M[facility] [address] [place] [address] Mvmg, Gml Mobile Home Draw [address] [place] [address] 04/15/2024 7:05 AM EST Laboratory Lab Mobile Phlebotomy M[facility] [address] [place] [address] Mvmg, Gml Mobile Home Draw [address] [place] [address] 04/22/2024 7:05 AM EST Laboratory Lab Mobile Phlebotomy [facility] [address] [place] [address] Mvmg, Gml Mobile Home Draw [address] [place] [address] 04/29/2024 7:05 AM EST Laboratory Lab Mobile Phlebotomy M[facility] [address] [place] [address] Mvmg, Gml Mobile Home Draw [address] [place] [employer] [address] 05/05/2024 7:05 AM EST Laboratory Lab Mobile Phlebotomy [facility] [address] [place] [address] Mvmg, Gml Mobile Home Draw [address] [place] [address] 09/02/2024 8:20 AM EDT Office Visit Pulmonary Medicine, [facility] [address] [place] [address] Ish Caba MD [address] [place] [address] 05/03/2025 7:40 AM EST Office Visit Dermatology [address] [place] [address] Albina Romo PA-C [address] [place] [address] [place] [address] Health Maintenance Due Date Last Done Comments [...] this encounter Medical Devices Implanted Type Area Animal Damage Control Agent Device Identifier Shelf Expiration Date Model / Serial / Lot Mesh Plug Xlarge [id number] - [id number] Implanted:Qty: 1 on 12/09/2020 by John Zaragoza MD at OR [facility] Left: Demond RIVAS BARD : LUCINDA 05/09/2023 [id number] / / [id number] documented as of this encounter Visit Diagnoses [...] Given 09/20/2023 9:30 AM EDT 650 mg Xticzrxjbwq-mzjnejthlkpyl-f ihj (Darzalex Faspro) 1800 mg-60533 units/ 15 ml subcut inj 15 mL, [...] Power of Attor coco? No Care Teams Stone Operator Relationship Specialty Start Date End Date Michael Collins MD [address] [place] [address] [place] [address] PCP - General Internal Medicine 03/01/14 documented as of this encounter
--- OUTSIDE RECORDS SUMMARY | 2024-03-26 16:35 | External Medical Summary | Summary of Care ---
Author Name Unknown Organization [facility] Address [address] [facility] [place] [address] Phone [phone] Care Team Providers Care Shank Carrier Name Role Phone Michael Collins MD Primary Care Provi zehra Reason for Visit * Reason Onset Date Comments Precert Future 10/18/2023 Adding cytoxan Encounter Details Date Type Department Care Team (Late st Contact Info) Description 10/18/2023 Telephone Hematology/Oncology Treatment, [place] [address] [place] [address] Morgan Vásquez MD 200 [place] [address] Precert Future (Adding cytoxan) Allergies No known active allergiesdocumented as of this encounter (statuses as of 10/19/2023) Medications Medication Sig Dispensed Refills Start Date End Date Status THEOPHYLLINE ER 450 MG PO QW27Eamumkfyalh:2 tablet at bedtime Take by mouth. Indications: [...] nostril at bedtime. PATIENT INFORMATION: Kris Galvin [address] [place] [address] [employer] EQUIPMENT [place]: [employer]/TBD ORDER: Please start nocturnal oxygen via nasal [...] signed) Ish Caba MD Pulmonary Medicine, [address] [place] [address] [place] [facility] Medical License Number: [id number] 1 Each 09/21/2022 Active metFORMIN HCl ER [...] as of this encounter (statuses as of 10/19/2023) Active Problems Problem Noted Date Diagnosed Date [...] as of this encounter (statuses as of 10/19/2023) Resolved Problems Problem Noted Date Diagnosed Date Resolved Date Asthma in remission 08/28/2022 08/29/19 Asthma, mild persistent 08/28/202208/11 Asthma, severe persistent 08/28/2022 Stem cell transplant candidate 08/17/2019 09/02/2019 documented as of this encounter (statuses as of 10/19/2023) Immunizations Name Administration Dates Next Due COVID-19 [...] PM EDT Order received to add cytoxan. [place] plan adjusted. Waiting for auth. Consent signed 10/17/23. Patient prefers appts. Mobile lab referral replaced for weekly labs. documented in this encounter Plan of Treatment Upcoming Encounters Date Type Department Care Team (Late st Contact Info) Description 10/23/2023 7:05 AM EDT Laboratory Lab Mobile Phlebotomy [facility] [address] [place], [place] [address] [facility] [address] [place] [address] 10/30/2023 7:05 AM EDT Laboratory Lab Mobile Phlebotomy [facility] [address] [place], [place] [address] [facility], [facility] [address] [place], [place] [address] 11/06/2023 7:05 AM EDT Laboratory Lab Mobile Phlebotomy [facility] [address] [place], [place] [address] [facility], [facility] Draw [address] [place] [address] 11/08/2023 9:40 AM EDT Office Visit Rheumatology [address] [place] [phone] Darnell Higgins MD [address] [place], [place] [address] 11/13/2023 7:00 AM EDT Laboratory Lab Mobile Phlebotomy [facility] [address] [place] [address] [facility], [facility] Draw [address] [place] [address] 11/15/2023 8:30 AM EDT [facility] 200 [place] [phone] Kenyatta, Chair 11 Hem Onc [facility] 200 [facility] [place] [address] 11/20/2023 7:05 AM EDT Laboratory Lab Mobile Phlebotomy [facility] [address] [place] [address] [facility], [facility] Draw [address] [employer] [place] [address] 11/27/2023 7:05 AM EDT Laboratory Lab Mobile Phlebotomy [facility] [address] [place] [address] [facility], [facility] Draw [address] [facility] [place] [address] 12/04/2023 7:05 AM EDT Laboratory Lab Mobile Phlebotomy [facility] [address] [employer] [place] [address] M[facility], Gml [facility] Draw [address] [employer] [address] 12/11/2023 7:00 AM EDT Laboratory Lab Mobile Phlebotomy [facility] [address] [place] [address] [facility], [facility] Draw [address] [facility] [place] [address] 12/12/2023 11:15 AM EDT Office Visit Hematology/Oncology [facility] [place] 200 [facility] [place] [phone] Morgan Vásquez MD 200 [facility] [place] [address] 12/12/2023 11:45 AM EDT Hem/Onc Treatment Hematology/Oncology Treatment, [place] [address] [place] [address] 12/18/2023 7:05 AM EDT Laboratory Lab Mobile Phlebotomy [facility] [address] [place], [place] [address] [facility], [facility]ml [facility] [address] [place] [address] 12/25/2023 7:05 AM EDT Laboratory Lab Mobile Phlebotomy [facility] [address] [place] [address] M[facility], Gml [facility] Draw [address] [facility] [place], [place] [address] 01/01/2024 7:05 AM EDT Laboratory Lab Mobile Phlebotomy [facility] [address] [place] [address] Mv[facility], Gml [facility] Draw [address] [place] [employer] [place] [address] 01/08/2024 7:00 AM EDT Laboratory Lab Mobile Phlebotomy [facility] [address] [place], [place] [address] M[facility], Gml [facility] Draw [address] [place] [address] 01/15/2024 7:05 AM EDT Laboratory Lab Mobile Phlebotomy [facility] [address] [place] [address] M[facility], Gml [facility] [address] [employer] [place] [place] [address] 01/22/2024 7:05 AM EDT Laboratory Lab Mobile Phlebotomy [facility] [address] [place] [address] Mv[facility], Gml [facility] [address] [place] [address] 01/29/2024 7:05 AM EDT Laboratory Lab Mobile Phlebotomy [facility] [address] [place] [address] [facility], Gml [facility] [address] [place] [address] 02/05/2024 7:00 AM EDT Laboratory Lab Mobile Phlebotomy [facility] [address] [employer] [place] [address] Mv[facility], Gml [facility] [address] [place] [address] 02/05/2024 8:40 AM EDT Office Visit Neurology [facility] 200 [facility] [place], [place] [address] Octavia Goins PA-C 200 [facility] [place] [address] 02/12/2024 7:05 AM EDT Laboratory Lab Mobile Phlebotomy [facility] [address] [employer] [place] [address] Mvmg, Gml [facility] [address] [place] [address] 02/19/2024 7:05 AM EDT Laboratory Lab Mobile Phlebotomy [facility] [address] [place] [address] Mvmg, Gml [facility] [address] [facility] [place] [address] 02/26/2024 7:05 AM EDT Laboratory Lab Mobile Phlebotomy [facility] [address] [employer] [place] [address] Mvmg, Gml [facility] Draw [address] [place] [employer] [place] [place] [address] 03/04/2024 7:00 AM EDT Laboratory Lab Mobile Phlebotomy [facility] [address] [employer] [place] [address] Mvmg, Gml [facility] Draw [address] [place] [address] 03/11/2024 7:05 AM EDT Laboratory Lab Mobile Phlebotomy [facility] [address] [place] [address] Mvmg, Gml [facility] Draw [address] [place] [facility] [place] [address] 03/18/2024 7:05 AM EST Laboratory Lab Mobile Phlebotomy [facility] [address]20 [facility] [place] [address] Mvmg, Gml Mobile Home Draw [address] [facility] [place] [address] 03/25/2024 7:05 AM EST Laboratory Lab Mobile Phlebotomy [facility] [address] [facility] [place] [address] Mvmg, Gml Mobile Home Draw [address] [facility] [place] [address] 04/01/2024 7:00 AM EST Laboratory Lab Mobile Phlebotomy [facility] [address] [facility] [place] [address] Mvmg, Gml Mobile Home Draw [address] [facility] [place] [address] 04/08/2024 7:05 AM EST Laboratory Lab Mobile Phlebotomy [facility] [address] [facility] [place] [address] Mvmg, Gml [facility] Home Draw [address] [facility] [place] [address] 04/15/2024 7:05 AM EST Laboratory Lab Mobile Phlebotomy [facility] [address] [facility] [place] [address] Mvmg, Gml [facility] Home Draw [address] [facility] [place] [address] 04/22/2024 7:05 AM EST Laboratory Lab Mobile Phlebotomy [facility] [address] [facility] [place] [address] Mvmg, Gml [facility] Draw [address]20 [facility] [place] [address] 04/29/2024 7:05 AM EST Laboratory Lab Mobile Phlebotomy [facility] [address] [facility] [place] [address] Mvmg, Gml [facility] Draw [address] [facility] [place] [address] 05/05/2024 7:05 AM EST Laboratory Lab Mobile Phlebotomy [facility] [address] [facility] [place] [address] [facility], [facility] Draw [address] [facility] [place] [address] 09/02/2024 8:20 AM EDT Office Visit Pulmonary Medicine, [facility] [address] [place] [address] Ish Caba MD [address] [facility] [place] [address] 05/03/2025 7:40 AM EST Office Visit Dermatology [address] [place] [address] Albina Romo PA-C [address] [place] [address] [place] [address] Health Maintenance Due Date Last Done Comments [...] this encounter Medical Devices Implanted Type Area Asbestos Hazard Abatement Worker Device Identifier Shelf Expiration Date Model / Serial / Lot Mesh Plug Xlarge [id number] - [id number] Implanted:Qty: 1 on 12/09/2020 by John Zaragoza MD at OR [facility] Left: Groin CR BARD : DAVOL 05/09/2023 [id number] / / [id number] documented as of this encounter Advance Directives [...] Power of Attor coco? No Care Teams Shank Carrier Relationship Specialty Start Date End Date Michael Collins MD [address] [place] [address] [place] [address] PCP - General Internal Medicine 03/01/14 documented as of this encounter
--- OUTSIDE RECORDS SUMMARY | 2024-03-26 16:35 | External Medical Summary | Summary of Care ---
Author Name Unknown Organization [facility] Address [address] [facility] [place] [address] Phone [phone] Care Team Providers Care Physician Underwriter Name Role Phone Michael Collins MD Primary Care Provi zehra Reason for Visit * Reason Onset Date Comments Precert Future 10/18/2023 Adding cytoxan Encounter Details Date Type Department Care Team (Late st Contact Info) Description 10/18/2023 Telephone Hematology/Oncology Treatment, [place] [address] [place] [address] Morgan Vásquez MD 200 [place] [address] Precert Future (Adding cytoxan) Allergies No known active allergiesdocumented as of this encounter (statuses as of 10/18/2023) Medications Medication Sig Dispensed Refills Start Date End Date Status THEOPHYLLINE ER 450 MG PO VT13Mritehokpop:2 tablet at bedtime Take by mouth. Indications: [...] Take by mouth. Active Multiple Vitamins-Minerals ([facility]) CHEW Take by [...] nostril at bedtime. PATIENT INFORMATION: Kris Galvin [address] [place] [address] [employer] EQUIPMENT Chemo Beanies: [employer]/TBD ORDER: Please start nocturnal oxygen via [...] signed) Ish Caba MD Pulmonary Medicine, [address] [place] [address] [place] [facility] Medical License Number: [id number] 1 Each 09/21/2022 Active metFORMIN HCl ER [...] PM EDT Order received to add cytoxan. [place] plan adjusted. Waiting for auth. Consent signed 10/17/23. Patient prefers appts. Mobile lab referral replaced for weekly labs. documented in this encounter Plan of Treatment Upcoming Encounters Date Type Department Care Team (Late st Contact Info) Description 10/23/2023 7:05 AM EDT Laboratory Lab Mobile Phlebotomy [facility] [address] [place], [place] [address] [facility], Gml [facility] Draw [address] [place], [place] [address] 10/30/2023 7:05 AM EDT Laboratory Lab Mobile Phlebotomy [facility] [address] [place], [place] [address] M[facility], Gml [facility] Home Draw [address] [place], [place] [address] 11/06/2023 7:05 AM EDT Laboratory Lab Mobile Phlebotomy [facility] [address] [place] [address] [facility], Gml Mobile Home Draw [address] [place], [place] [address] 11/08/2023 9:40 AM EDT Office Visit Rheumatology [address] [place] [phone] Darnell Higgins MD [address] [place] [address] 11/13/2023 7:00 AM EDT Laboratory Lab Mobile Phlebotomy [facility] [address] [place], [place] [address] M[facility], Gml Mobile Home Draw [address] [place] [address] 11/15/2023 8:30 AM EDT Hem/Onc Treatment Hematology/Oncology Treatment, [place] [address] [place] [phone] Kenyatta, Chair 11 Hem Onc [place] [address] [facility] [place] [address] 11/20/2023 7:05 AM EDT Laboratory Lab Mobile Phlebotomy [facility] [address] [place] [address] Mvmg, Gml Mobile Home Draw [address] [place] [address] 11/27/2023 7:05 AM EDT Laboratory Lab Mobile Phlebotomy [facility] [address] [place] [address] Mvmg, Gml Mobile Home Draw [address] [place] [address] 12/04/2023 7:05 AM EDT Laboratory Lab Mobile Phlebotomy [facility] [address] [place] [address] Mvmg, Gml Mobile Home Draw [address] [place] [address] 12/11/2023 7:00 AM EDT Laboratory Lab Mobile Phlebotomy [facility] [address] [place] [address] Mv[facility], Gml [facility] Draw [address] [place] [address] 12/12/2023 11:15 AM EDT Office Visit Hematology/Oncology [facility] 200 [facility], [place] [phone] Morgan Vásquez MD 200 [place] [address] 12/12/2023 11:45 AM EDT Hem/Onc Treatment Hematology/Oncology Treatment, [place] 200 [facility], [place] [address] 12/18/2023 7:05 AM EDT Laboratory Lab Mobile Phlebotomy [facility] [address] [place] [address] M[facility], Gml [facility] Draw [address] [place] [address] 12/25/2023 7:05 AM EDT Laboratory Lab Mobile Phlebotomy [facility] [address] [place] [address] Mvmg, Gml [facility] Draw [address] [place] [address] 01/01/2024 7:05 AM EDT Laboratory Lab Mobile Phlebotomy [facility] [address] [place] [address] Mvmg, Gml [facility] Draw [address] [place] [address] 01/08/2024 7:00 AM EDT Laboratory Lab Mobile Phlebotomy [facility] [address] [place] [address] Mv[facility], Gml Mobile Home Draw [address] [place] [address] 01/15/2024 7:05 AM EDT Laboratory Lab Mobile Phlebotomy [facility] [address] [place] [address] Mvmg, Gml Mobile Home Draw [address] [place] [address] 01/22/2024 7:05 AM EDT Laboratory Lab Mobile Phlebotomy [facility] [address] [place] [address] Mvmg, Gml Mobile Home Draw [address] [place] [address] 01/29/2024 7:05 AM EDT Laboratory Lab Mobile Phlebotomy [facility] [address] [place] [address] Mvmg, Gml Mobile Home Draw [address] [place] [address] 02/05/2024 7:00 AM EDT Laboratory Lab Mobile Phlebotomy [facility] [address] [place] [address] Mvmg, Gml Mobile Home Draw [address] [place] [address] 02/05/2024 8:40 AM EDT Office Visit Neurology [employer] [address] [place], [place] [address] Octavia Goins PA-C [address] [place], [place] [address] 02/12/2024 7:05 AM EDT Laboratory Lab Mobile Phlebotomy [facility] [address]20 [facility] [place] [address] Mvmg, Gml Mobile Home Draw [address] [facility] [place] [address] 02/19/2024 7:05 AM EDT Laboratory Lab Mobile Phlebotomy [facility] [address] [facility] [place] [address] Mvmg, Gml Mobile Home Draw [address] [facility] [place] [address] 02/26/2024 7:05 AM EDT Laboratory Lab Mobile Phlebotomy [facility] [address]20 [facility] [place] [address] Mvmg, Gml Mobile Home Draw [address] [facility] [place] [address] 03/04/2024 7:00 AM EDT Laboratory Lab Mobile Phlebotomy [facility] [address] [facility] [place] [address] Mvmg, Gml Mobile Home Draw [address] [facility] [place] [address] 03/11/2024 7:05 AM EDT Laboratory Lab Mobile Phlebotomy [facility] [address] [facility] [place] [address] Mvmg, Gml Mobile Home Draw [address] [facility] [place] [address] 03/18/2024 7:05 AM EST Laboratory Lab Mobile Phlebotomy [facility] [address] [facility] [place] [address] Mvmg, Gml Mobile Home Draw [address] [facility] [place] [address] 03/25/2024 7:05 AM EST Laboratory Lab Mobile Phlebotomy [facility] [address] [facility] [place] [address] Mvmg, Gml Mobile Home Draw [address] [facility] [place] [address] 04/01/2024 7:00 AM EST Laboratory Lab Mobile Phlebotomy [facility] [address] [facility] [place] [address] Mvmg, Gml Mobile Home Draw [address] [facility] [place] [address] 04/08/2024 7:05 AM EST Laboratory Lab Mobile Phlebotomy [facility] [address] [place] [address] Mvmg, Gml Mobile Home Draw 2520 [facility] [place] [address] 04/15/2024 7:05 AM EST Laboratory Lab Mobile Phlebotomy [facility] [address] [place] [address] Mvmg, Gml Mobile Home Draw [address] [place] [address] 04/22/2024 7:05 AM EST Laboratory Lab Mobile Phlebotomy [facility] [address] [place] [address] Mvmg, Gml Mobile Home Draw [address] [place] [address] 04/29/2024 7:05 AM EST Laboratory Lab Mobile Phlebotomy [facility] [address] [place] [address] Mvmg, Gml Mobile Home Draw [address] [facility] [place] [address] 05/05/2024 7:05 AM EST Laboratory Lab Mobile Phlebotomy [facility] [address] [place] [address] Mvmg, Gml Mobile Home Draw [address] [facility] [place] [address] 09/02/2024 8:20 AM EDT Office Visit Pulmonary Medicine, [facility] [address] [place] [address] Ish Caba MD [address] [place] [address] 05/03/2025 7:40 AM EST Office Visit Dermatology [address] [place] [address] Albina Romo PA-C [address] [place] [address] [place] [address] Health Maintenance Due Date Last Done Comments [...] encounter Medical Devices Implanted Type Area Timber Poisoner Device Identifier Shelf Expiration Date Model / Serial / Lot Mesh Plug Xlarge [id number] - [id number] Implanted:Qty: 1 on 12/09/2020 by John Zaragoza MD at OR [facility] Left: Demond RIVAS BARD : DAVGISSELLE 05/09/2023 [id number] / / [id number] documented as of this encounter Advance Directives [...] Power of Attor coco? No Care Teams Physician Underwriter Relationship Specialty Start Date End Date Michael Collins MD [address] [facility] [place] [address] PCP - General Internal Medicine 03/01/14 documented as of this encounter
--- OUTSIDE RECORDS SUMMARY | 2024-03-26 16:35 | External Medical Summary | Summary of Care ---
Author Name Unknown Organization [facility] Address [address] [facility] [place] [address] Phone [phone] Care Team Providers Care Ostomy Rn Name Role Phone Michael Collins MD Primary Care Provi zehra Reason for Visit * Reason Onset Date Comments Precert Future 10/18/2023 Adding cytoxan Encounter Details Date Type Department Care Team (Late st Contact Info) Description 10/18/2023 Telephone Hematology/Oncology Treatment, [place] [address] [place] [address] Morgan Vásquez MD [address] [place] [address] Precert Future (Adding cytoxan) Allergies No known active allergiesdocumented as of this encounter (statuses as of 10/18/2023) Medications Medication Sig Dispensed Refills Start Date End Date Status THEOPHYLLINE ER 450 MG PO RB13Vrfifourcwb:2 tablet at bedtime Take by mouth. Indications: [...] mouth. Active Multiple Vitamins-Minerals ([facility] IMMUNITY SUPPORT) CHEW Take [...] nostril at bedtime. PATIENT INFORMATION: Kris Galvin [address] [place] [address] [employer] EQUIPMENT [employer]: [employer]TBD ORDER: Please start nocturnal oxygen via nasal [...] (electronically signed) Ish Caba MD Pulmonary Medicine, [address] [place] [address] [place] [facility] Medical License Number: [id number] 1 Each 09/21/2022 Active metFORMIN HCl ER [...] PM EDT Order received to add cytoxan. [place] plan adjusted. Waiting for auth. Consent signed 10/17/23. Patient prefers appts. Mobile lab referral replaced for weekly labs. documented in this encounter Plan of Treatment Upcoming Encounters Date Type Department Care Team (Late st Contact Info) Description 10/23/2023 7:05 AM EDT Laboratory Lab Mobile Phlebotomy [facility] [address] [place], [place] [address] Mvmg, Gml Mobile Home Draw [address] [place], [place] [address] 10/30/2023 7:05 AM EDT Laboratory Lab Mobile Phlebotomy [facility] [address] [place], [place] [address] Mvmg, Gml Mobile Home Draw [address] [place], [place] [address] 11/06/2023 7:05 AM EDT Laboratory Lab Mobile Phlebotomy [facility] [address] [place] [address] Mvmg, Gml Mobile Home Draw [address] [place], [place] [address] 11/08/2023 9:40 AM EDT Office Visit Rheumatology [address] [place] [phone] Darnell Higgins MD [address] [place] [address] 11/13/2023 7:00 AM EDT Laboratory Lab Mobile Phlebotomy [facility] [address] [place], [place] [address] Mvmg, Gml Mobile Home Draw [address] [place] [address] 11/15/2023 8:30 AM EDT Hem/Onc Treatment Hematology/Oncology Treatment, [place] [address] [place] [phone] Kenyatta, Chair 11 Hem Onc Scenery 200 [facility] [place] [address] 11/20/2023 7:05 AM EDT Laboratory Lab Mobile Phlebotomy [facility] [address] [place] [address] Mvmg, Gml Mobile Home Draw [address] [place] [address] 11/27/2023 7:05 AM EDT Laboratory Lab Mobile Phlebotomy [facility] [address] [place] [address] Mvmg, Gml Mobile Home Draw [address] [place] [address] 12/04/2023 7:05 AM EDT Laboratory Lab Mobile Phlebotomy [facility] [address] [place] [address] Mvmg, Gml Mobile Home Draw [address] [facility] [place] [address] 12/11/2023 7:00 AM EDT Laboratory Lab Mobile Phlebotomy [facility] [address] [place] [address] Mvmg, Gml Mobile Home Draw [address] [place] [address] 12/12/2023 11:15 AM EDT Office Visit Hematology/Oncology [facility] [address] [facility], [place] [phone] Morgan Vásquez MD [address] [place] [address] 12/12/2023 11:45 AM EDT Hem/Onc Treatment Hematology/Oncology Treatment, [place] 200 [facility], [place] [phone] 12/18/2023 7:05 AM EDT Laboratory Lab Mobile Phlebotomy [facility] [address] [place] [address] Mvmg, Gml Mobile Home Draw [address] [place] [address] 12/25/2023 7:05 AM EDT Laboratory Lab Mobile Phlebotomy [facility] [address] [place] [address] Mvmg, Gml Mobile Home Draw [address] [place] [address] 01/01/2024 7:05 AM EDT Laboratory Lab Mobile Phlebotomy [facility] [address] [place] [address] Mvmg, Gml Mobile Home Draw [address] [place] [address] 01/08/2024 7:00 AM EDT Laboratory Lab Mobile Phlebotomy [facility] [address] [place] [address] Mvmg, Gml Mobile Home Draw [address] [facility] [place] [address] 01/15/2024 7:05 AM EDT Laboratory Lab Mobile Phlebotomy [facility] [address] [place] [address] Mvmg, Gml Mobile Home Draw [address] [place] [address] 01/22/2024 7:05 AM EDT Laboratory Lab Mobile Phlebotomy [facility] [address] [place] [address] Mvmg, Gml Mobile Home Draw [address] [facility] [place] [address] 01/29/2024 7:05 AM EDT Laboratory Lab Mobile Phlebotomy [facility] [address] [place] [address] Mvmg, Gml Mobile Home Draw [address] [facility] [place] [address] 02/05/2024 7:00 AM EDT Laboratory Lab Mobile Phlebotomy [facility] [address] [place] [address] Mvmg, Gml Mobile Home Draw [address] [facility] [place] [address] 02/05/2024 8:40 AM EDT Office Visit Neurology [employer] [address], [place] [address] Octavia Goins PA-C [address], [place] [address] 02/12/2024 7:05 AM EDT Laboratory Lab Mobile Phlebotomy [facility] [address]20 [facility] [place] [address] Mvmg, Gml Mobile Home Draw [address] [facility] [place] [address] 02/19/2024 7:05 AM EDT Laboratory Lab Mobile Phlebotomy [facility] [address] [facility] [place] [address] Mvmg, Gml Mobile Home Draw [address] [facility] [place] [address] 02/26/2024 7:05 AM EDT Laboratory Lab Mobile Phlebotomy [facility] [address] [facility] [place] [address] Mvmg, Gml Mobile Home Draw [address]20 [facility] [place] [address] 03/04/2024 7:00 AM EDT Laboratory Lab Mobile Phlebotomy [facility] [address] [facility] [place] [address] Mvmg, Gml Mobile Home Draw [address]20 [facility] [place] [address] 03/11/2024 7:05 AM EDT Laboratory Lab Mobile Phlebotomy [facility] [address] [facility] [place] [address] Mvmg, Gml Mobile Home Draw [address] [facility] [place] [address] 03/18/2024 7:05 AM EST Laboratory Lab Mobile Phlebotomy [facility] [address] [facility] [place] [address] Mvmg, Gml Mobile Home Draw [address] [facility] [place] [address] 03/25/2024 7:05 AM EST Laboratory Lab Mobile Phlebotomy [facility] [address] [facility] [place] [address] Mvmg, Gml Mobile Home Draw [address] [facility] [place] [address] 04/01/2024 7:00 AM EST Laboratory Lab Mobile Phlebotomy [facility] [address] [facility] [place] [address] Mvmg, Gml Mobile Home Draw [address] [facility] [place] [address] 04/08/2024 7:05 AM EST Laboratory Lab Mobile Phlebotomy [facility] [address] [place] [address] Mvmg, Gml Mobile Home Draw [address] [facility] [place] [address] 04/15/2024 7:05 AM EST Laboratory Lab Mobile Phlebotomy [facility] [address] [facility] [place] [address] Mvmg, Gml Mobile Home Draw [address] [employer] [facility] [place] [address] 04/22/2024 7:05 AM EST Laboratory Lab Mobile Phlebotomy [facility] [address] [place] [address] Mvmg, Gml Mobile Home Draw [address] [employer] [facility] [place] [address] 04/29/2024 7:05 AM EST Laboratory Lab Mobile Phlebotomy [facility] [address] [employer] [facility] [place] [address] Mvmg, Gml Mobile Home Draw [address]20 [facility] [place] [address] 05/05/2024 7:05 AM EST Laboratory Lab Mobile Phlebotomy [facility] [address] [employer] [facility] [place] [address] Mvmg, Gml Mobile Home Draw [address]20 [facility] [place] [address] 09/02/2024 8:20 AM EDT Office Visit Pulmonary Medicine, [facility] [address] [place] [address] Ish Caba MD [address] [place] [address] 05/03/2025 7:40 AM EST Office Visit Dermatology [address] [place] [address] Albina Romo PA-C [address] [place] [address] [place] [address] Health Maintenance Due Date Last Done Comments [...] this encounter Medical Devices Implanted Type Area Stockroom Selector Device Identifier Shelf Expiration Date Model / Serial / Lot Mesh Plug Xlarge [id number] - [id number] Implanted:Qty: 1 on 12/09/2020 by John Zaragoza MD at OR [facility] Left: Demond RIVAS BARD : DAVGISSELLE 05/09/2023 [id number] / / [id number] documented as of this encounter Advance Directives [...] Power of Attor coco? No Care Teams Ostomy Rn Relationship Specialty Start Date End Date Michael Collins MD [address] [facility] [place] [address] PCP - General Internal Medicine 03/01/14 documented as of this encounter
--- OUTSIDE RECORDS SUMMARY | 2024-03-26 16:35 | External Medical Summary | Summary of Care ---
Author Name Unknown Organization [facility] Address [address] [facility] [place] [address] Phone [phone] Care Team Providers Care Curing Pickling Packer Name Role Phone Michael Collins MD Primary Care Provi zehra Reason for Visit * Reason Onset Date Comments Precert Future 10/18/2023 Adding cytoxan Encounter Details Date Type Department Care Team (Late st Contact Info) Description 10/18/2023 Telephone Hematology/Oncology Treatment, [place] [address] [place] [address] Morgan Vásquez MD 200 [place] [address] Precert Future (Adding cytoxan) Allergies No known active allergiesdocumented as of this encounter (statuses as of 10/18/2023) Medications Medication Sig Dispensed Refills Start Date End Date Status THEOPHYLLINE ER 450 MG PO IJ02Ihscrdbtbxq:2 tablet at bedtime Take by mouth. Indications: [...] nostril at bedtime. PATIENT INFORMATION: Kris Galvin [address] [place] [address] [employer] EQUIPMENT [employer]: [employer]/TBD ORDER: Please start nocturnal oxygen via nasal [...] signed) Ish Caba MD Pulmonary Medicine, [address] [place] [address] [place] [facility] Medical License Number: [id number] 1 Each 09/21/2022 Active metFORMIN HCl ER [...] PM EDT Order received to add cytoxan. [facility] plan adjusted. Waiting for auth. Consent signed 10/17/23. Patient prefers appts. Mobile lab referral replaced for weekly labs. documented in this encounter Plan of Treatment Upcoming Encounters Date Type Department Care Team (Late st Contact Info) Description 10/23/2023 7:05 AM EDT Laboratory Lab Mobile Phlebotomy [facility] [address] [place] [address] Mvmg, Gml Mobile Home Draw [address] [place], [place] [address] 10/30/2023 7:05 AM EDT Laboratory Lab Mobile Phlebotomy [facility] [address] [place], [place] [address] Mvmg, Gml Mobile Home Draw [address] [place] [address] 11/06/2023 7:05 AM EDT Laboratory Lab Mobile Phlebotomy [facility] [address] [place] [address] Mvmg, Gml Mobile Home Draw [address] [place] [address] 11/08/2023 9:40 AM EDT Office Visit Rheumatology [address] [place] [phone] Darnell Higgins MD [address] [place], [place] [address] 11/13/2023 7:00 AM EDT Laboratory Lab Mobile Phlebotomy [facility] [address] [place] [address] Mvmg, Gml Mobile Home Draw [address] [place], [place] [address] 11/15/2023 8:30 AM EDT Hem/Onc Treatment Hematology/Oncology Treatment, [place] 200 [facility] [place] [phone] [place], Chair 11 Hem Onc [facility] 200 [facility] [place] [address] 11/20/2023 7:05 AM EDT Laboratory Lab Mobile Phlebotomy [facility] [address] [place] [address] Mvmg, Gml Mobile Home Draw [address] [place] [address] 11/27/2023 7:05 AM EDT Laboratory Lab Mobile Phlebotomy [facility] [address] [place] [address] Mvmg, Gml Mobile Home Draw [address] [place] [address] 12/04/2023 7:05 AM EDT Laboratory Lab Mobile Phlebotomy [facility] [address] [place] [address] Mvmg, Gml Mobile Home Draw [address] [place] [address] 12/11/2023 7:00 AM EDT Laboratory Lab Mobile Phlebotomy [facility] [address] [place] [address] Mvmg, Gml Mobile Home Draw [address] [place] [address] 12/12/2023 11:15 AM EDT Office Visit Hematology/Oncology [facility] 200 [facility] [place] [phone] Morgan Vásquez MD [address] [facility] [place] [address] 12/12/2023 11:45 AM EDT Hem/Onc Treatment Hematology/Oncology Treatment, [place] 200 [facility] [place] [phone] 12/18/2023 7:05 AM EDT Laboratory Lab Mobile Phlebotomy [facility] [address] [place] [address] Mvmg, Gml Mobile Home Draw [address] [facility] [place] [address] 12/25/2023 7:05 AM EDT Laboratory Lab Mobile Phlebotomy [facility] [address] [facility] [place] [address] Mvmg, Gml Mobile Home Draw [address] [facility] [place] [address] 01/01/2024 7:05 AM EDT Laboratory Lab Mobile Phlebotomy [facility] [address] [facility] [place] [address] Mvmg, Gml Mobile Home Draw [address]20 [place] [address] 01/08/2024 7:00 AM EDT Laboratory Lab Mobile Phlebotomy [facility] [address] [facility] [place] [address] Mvmg, Gml Mobile Home Draw [address] [place] [address] 01/15/2024 7:05 AM EDT Laboratory Lab Mobile Phlebotomy [facility] [address] [facility] [place] [address] Mvmg, Gml Mobile Home Draw [address] [place] [address] 01/22/2024 7:05 AM EDT Laboratory Lab Mobile Phlebotomy [facility] [address] [facility] [place] [address] Mvmg, Gml Mobile Home Draw [address] [place] [address] 01/29/2024 7:05 AM EDT Laboratory Lab Mobile Phlebotomy [facility] [address] [facility] [place] [address] Mvmg, Gml Mobile Home Draw [address] [facility] [place] [address] 02/05/2024 7:00 AM EDT Laboratory Lab Mobile Phlebotomy [facility] [address] [facility] [place] [address] Mvmg, Gml Mobile Home Draw [address] [place] [address] 02/05/2024 8:40 AM EDT Office Visit Neurology [facility] 200 [facility] [place] [address] Octavia Goins PA-C 200 [facility] [place] [address] 02/12/2024 7:05 AM EDT Laboratory Lab Mobile Phlebotomy [facility] [address] [place] [address] Mvmg, Gml Mobile Home Draw [address] [place] [address] 02/19/2024 7:05 AM EDT Laboratory Lab Mobile Phlebotomy [facility] [address] [place] [address] Mvmg, Gml Mobile Home Draw [address] [place] [address] 02/26/2024 7:05 AM EDT Laboratory Lab Mobile Phlebotomy [facility] [address] [place] [address] Mvmg, Gml Mobile Home Draw [address] [place] [address] 03/04/2024 7:00 AM EDT Laboratory Lab Mobile Phlebotomy [facility] [address] [place] [address] Mvmg, Gml Mobile Home Draw [address] [place] [address] 03/11/2024 7:05 AM EDT Laboratory Lab Mobile Phlebotomy [facility] [address] [place] [address] Mvmg, Gml Mobile Home Draw [address] [place] [address] 03/18/2024 7:05 AM EST Laboratory Lab Mobile Phlebotomy [facility] [address] [place] [address] Mvmg, Gml Mobile Home Draw [address] [place] [address] 03/25/2024 7:05 AM EST Laboratory Lab Mobile Phlebotomy [facility] [address] [place] [address] Mvmg, Gml Mobile Home Draw [address] [place] [address] 04/01/2024 7:00 AM EST Laboratory Lab Mobile Phlebotomy [facility] [address] [facility] [place] [address] Mvmg, Gml Mobile Home Draw [address] [place] [address] 04/08/2024 7:05 AM EST Laboratory Lab Mobile Phlebotomy [facility] [address] [place] [address] Mvmg, Gml Mobile Home Draw [address] [place] [address] 04/15/2024 7:05 AM EST Laboratory Lab Mobile Phlebotomy [facility] [address] [place] [address] Mvmg, Gml Mobile Home Draw [address] [place] [address] 04/22/2024 7:05 AM EST Laboratory Lab Mobile Phlebotomy [facility] [address] [place] [address] Mvmg, Gml Mobile Home Draw [address] [place] [address] 04/29/2024 7:05 AM EST Laboratory Lab Mobile Phlebotomy [facility] [address] [place] [address] Mvmg, Gml Mobile Home Draw [address] [place] [address] 05/05/2024 7:05 AM EST Laboratory Lab Mobile Phlebotomy [facility] [address] [facility] [place] [address] Mvmg, Gml Mobile Home Draw [address] [facility] [place] [address] 09/02/2024 8:20 AM EDT Office Visit Pulmonary Medicine, [facility] [address] [place] [address] Ish Caba MD [address] [place] [address] 05/03/2025 7:40 AM EST Office Visit Dermatology [address] [place] [address] Albina Romo PA-C [address] [place] [address] [place] [address] Health Maintenance Due Date Last Done Comments [...] this encounter Medical Devices Implanted Type Area Medical Underwriter Device Identifier Shelf Expiration Date Model / Serial / Lot Mesh Plug Xlarge [id number] - [id number] Implanted:Qty: 1 on 12/09/2020 by John Zaragoza MD at OR [facility] Left: Groin CR BARD : DAVOL 05/09/2023 [id number] / / [id number] documented as of this encounter Advance Directives [...] Power of Attor coco? No Care Teams Curing Pickling Packer Relationship Specialty Start Date End Date Michael Collins MD [address] [place] [address] [place] [address] PCP - General Internal Medicine 03/01/14 documented as of this encounter
--- OUTSIDE RECORDS SUMMARY | 2024-03-26 16:35 | External Medical Summary | Summary of Care ---
Author Name Unknown Organization [facility] Address [address] [facility] [place] [address] Phone [phone] Care Team Providers Care Pediatric Np Name Role Phone Michael Collins MD Primary Care Provi zehra Encounter Details Date Type Department Care Team (Late st Contact Info) Description 10/18/2023 Orders Only Hematology/Oncology Amena You [place] 200 [facility] [place] [address] [facility] [address] Allergies No known active allergiesdocumented as of this encounter (statuses as of 10/18/2023) Medications Medication Sig Dispensed Refills Start Date End Date Status THEOPHYLLINE ER 450 MG PO AL33Tnrfbfiqiax:2 tablet at bedtime Take by mouth. Indications: [...] nostril at bedtime. PATIENT INFORMATION: Kris Galvin [address] [place] [address] [employer] MEDICAL EQUIPMENT APS: Single Touch Systems/Onstream [employer] ORDER: Please start nocturnal oxygen via nasal [...] signed) Ish Caba MD Pulmonary Medicine, [address] [place] [address] [facility] Medical License Number: [id number] 1 Each 09/21/2022 Active metFORMIN HCl ER [...] Mobile Phlebotomy [facility] [address] [place] [address] Mvmg, [facility] Mobile Home Draw [address] [place] [address] 10/30/2023 7:05 AM EDT Laboratory Lab Mobile Phlebotomy [facility] [address] [place] [address] Mvmg, Gml Mobile [facility] Draw [address] [facility] [place] [address] 11/06/2023 7:05 AM EDT Laboratory Lab Mobile Phlebotomy M[facility] [address] [place], [place] [address] Mvmg, Gml Mobile Home Draw [address] [facility] [place] [address] 11/08/2023 9:40 AM EDT Office Visit Rheumatology [address] [place] [phone] Darnell Higgins MD 2520 [place] [address] 11/13/2023 7:00 AM EDT Laboratory Lab Mobile Phlebotomy MVM[facility] [address] [place], [place] [address] Mvmg, Gml Mobile Home Draw 2520 [place] [address] 11/15/2023 8:30 AM EDT Hem/Onc Treatment Hematology/Oncology Treatment, [place] [address] [place], [place] [phone] Kenyatta, Chair 11 Hem Onc [place] 200 [place] [address] 11/20/2023 7:05 AM EDT Laboratory Lab Mobile Phlebotomy MVMG [address] [place] [address] Mvmg, Gml Mobile Home Draw 2520 [facility] [place] [address] 11/27/2023 7:05 AM EDT Laboratory Lab Mobile Phlebotomy MVMG [address] [place] [address] Mvmg, Gml Mobile Home Draw [address] [facility] [place] [address] 12/04/2023 7:05 AM EDT Laboratory Lab Mobile Phlebotomy MVM[facility] [address] [place] [address] Mvmg, Gml Mobile Home Draw [address] [place] [address] 12/11/2023 7:00 AM EDT Laboratory Lab Mobile Phlebotomy MVM[facility] [address] [place] [address] Mvmg, Gml Mobile Home Draw [address] [place] [address] 12/12/2023 11:15 AM EDT Office Visit Hematology/Oncology [facility] 200 [facility] [place] [address] Morgan Vásquez MD 200 [place] [address] 12/12/2023 11:45 AM EDT Hem/Onc Treatment Hematology/Oncology Treatment, [place] [address] [facility] [address] [place], [place] [phone] 12/18/2023 7:05 AM EDT Laboratory Lab Mobile Phlebotomy MVM[facility] [address] [place] [address] Mvmg, Gml Mobile Home Draw [address] [place] [address] 12/25/2023 7:05 AM EDT Laboratory Lab Mobile Phlebotomy MVMG [address] [place] [address] Mvmg, Gml Mobile Home Draw [address] [place] [address] 01/01/2024 7:05 AM EDT Laboratory Lab Mobile Phlebotomy MVMG [address] [place] [address] Mvmg, Gml Mobile Home Draw [address] [place] [address] 01/08/2024 7:00 AM EDT Laboratory Lab Mobile Phlebotomy MVM[facility] [address] [place] [address] Mvmg, Gml Mobile Home Draw [address] [place] [address] 01/15/2024 7:05 AM EDT Laboratory Lab Mobile Phlebotomy MVMG [address] [place] [address] Mvmg, Gml Mobile Home Draw [address] [place] [address] 01/22/2024 7:05 AM EDT Laboratory Lab Mobile Phlebotomy MVM[facility] [address] [place] [address] Mvmg, Gml Mobile Home Draw [address] [facility] [place] [address] 01/29/2024 7:05 AM EDT Laboratory Lab Mobile Phlebotomy MVMG [address] [place] [address] Mvmg, Gml Mobile Home Draw 2520 [place] [address] 02/05/2024 7:00 AM EDT Laboratory Lab Mobile Phlebotomy MVMG [address] [place] [address] Mvmg, Gml Mobile Home Draw 2520 [place] [address] 02/05/2024 8:40 AM EDT Office Visit Neurology [facility] 200 [place] [address] Octavia Goins PA-C 200 [place] [address] 02/12/2024 7:05 AM EDT Laboratory Lab Mobile Phlebotomy MVM[facility] [address] [place] [address] Mvmg, Gml Mobile Home Draw [address] [place] [address] 02/19/2024 7:05 AM EDT Laboratory Lab Mobile Phlebotomy MVM[facility] [address] [place] [address] Mvmg, Gml Mobile Home Draw [address] [place] [address] 02/26/2024 7:05 AM EDT Laboratory Lab Mobile Phlebotomy MVMG 2520 [place] [address] Mvmg, Gml Mobile Home Draw 2520 [place] [address] 03/04/2024 7:00 AM EDT Laboratory Lab Mobile Phlebotomy MVMG [address] [place] [address] Mvmg, Gml Mobile Home Draw 2520 [place] [address] 03/11/2024 7:05 AM EDT Laboratory Lab Mobile Phlebotomy MVMG [address] [place] [address] Mvmg, Gml Mobile Home Draw 2520 [place] [address] 03/18/2024 7:05 AM EST Laboratory Lab Mobile Phlebotomy MVMG 25[address] [place] [address] Mvmg, Gml Mobile Home Draw 2520 [place] [address] 03/25/2024 7:05 AM EST Laboratory Lab Mobile Phlebotomy MVMG [address] [place] [address] Mvmg, Gml Mobile Home Draw 2520 [place] [address] 04/01/2024 7:00 AM EST Laboratory Lab Mobile Phlebotomy MVMG [address] [place] [address] Mvmg, Gml Mobile Home Draw 2520 [place] [address] 04/08/2024 7:05 AM EST Laboratory Lab Mobile Phlebotomy MVMG [address] [place] [address] Mvmg, Gml Mobile Home Draw 2520 [place] [address] 04/15/2024 7:05 AM EST Laboratory Lab Mobile Phlebotomy MVMG [address] [place] [address] Mvmg, Gml Mobile Home Draw [address] [place] [address] 04/22/2024 7:05 AM EST Laboratory Lab Mobile Phlebotomy MVMG [address] [place] [address] Mvmg, Gml Mobile Home Draw [address] [place] [address] 04/29/2024 7:05 AM EST Laboratory Lab Mobile Phlebotomy MVMG [address] [place] [address] Mvmg, Gml Mobile Home Draw [address] [place] [address] 05/05/2024 7:05 AM EST Laboratory Lab Mobile Phlebotomy MVMG [address] [place] [address] Mvmg, Gml Mobile Home Draw [address] [place] [address] 09/02/2024 8:20 AM EDT Office Visit Pulmonary Medicine, [facility] 132 [facility] [place] [address] Ish Caba MD [address] [place] [address] 05/03/2025 7:40 AM EST Office Visit Dermatology [address] [place] [address] Albina Romo PA-C [address] [place] [address] [place] [address] Health Maintenance Due Date Last Done Comments [...] this encounter Medical Devices Implanted Type Area Private Security Guard Device Identifier Shelf Expiration Date Model / Serial / Lot Mesh Plug Xlarge [id number] - [id number] Implanted:Qty: 1 on 12/09/2020 by John Zaragoza MD at OR [facility] Left: Groin CR BARD : DAVOL 05/09/2023 [id number] / / [id number] documented as of this encounter Advance Directives [...] Power of Attor coco? No Care Teams Pediatric Np Relationship Specialty Start Date End Date Michael Collins MD [address] [place] [address] [place] [address] PCP - General Internal Medicine 03/01/14 documented as of this encounter
--- OUTSIDE RECORDS SUMMARY | 2024-03-26 16:35 | External Medical Summary | Summary of Care ---
Author Name Unknown Organization [facility] Address [address] [facility] [place] [address] Phone [phone] Care Team Providers Care Wreath Maker Name Role Phone Michael Collins MD Primary Care Provi zehra Reason for Visit * Reason Onset Date Comments Precert Future 10/18/2023 Adding cytoxan Encounter Details Date Type Department Care Team (Late st Contact Info) Description 10/18/2023 Telephone Hematology/Oncology Treatment, [place] 200 [place] [address] Morgan Vásquez MD 200 [place] [address] Precert Future (Adding cytoxan) Allergies No known active allergiesdocumented as of this encounter (statuses as of 10/18/2023) Medications Medication Sig Dispensed Refills Start Date End Date Status THEOPHYLLINE ER 450 MG PO FY44Ghawegwovie:2 tablet at bedtime Take by mouth. Indications: [...] nostril at bedtime. PATIENT INFORMATION: Kris Galvin [address] [place] [address] [employer] EQUIPMENT Praedicat: emotion.me/TBD ORDER: Please start nocturnal oxygen via nasal [...] signed) Ish Caba MD Pulmonary Medicine, [address] [place] [address] [place] [facility] Medical License Number: [id number] 1 Each 09/21/2022 Active metFORMIN HCl ER [...] entered. Scheduling: please call [facility] to schedule 2 hour appt "cytoxan" (Fahad) for 10/24/23. Thanks! * Telephone Encounter - Eleanor Crawford RN - 10/18/2023 2:54 PM EDT Order received to add cytoxan. [place] plan adjusted. Waiting for auth. Consent signed 10/17/23. Patient prefers appts. Mobile lab referral replaced for weekly labs. documented in this encounter Plan of Treatment Upcoming Encounters Date Type Department Care Team (Late st Contact Info) Description 10/23/2023 7:05 AM EDT Laboratory Lab Mobile Phlebotomy MVMG [address] [place] [address] Mvmg, Gml Mobile Home Draw [address] [place], [place] [address] 10/30/2023 7:05 AM EDT Laboratory Lab Mobile Phlebotomy MVMG [address] [place], [place] [address] Mvmg, Gml Mobile Home Draw [address] [place] [address] 11/06/2023 7:05 AM EDT Laboratory Lab Mobile Phlebotomy MVMG [address] [address] Mvmg, Gml Mobile Home Draw [address] [place], [place] [address] 11/08/2023 9:40 AM EDT Office Visit Rheumatology [address] [place] [phone] Darnell Higgins MD [address] [place], [place] [address] 11/13/2023 7:00 AM EDT Laboratory Lab Mobile Phlebotomy MVMG [address] [address] Mvmg, Gml Mobile Home Draw [address] [place], [place] [address] 11/15/2023 8:30 AM EDT Hem/Onc Treatment Hematology/Oncology Treatment, [place] 200 [place] [phone] [place], Chair 11 Hem Onc [facility] 200 [facility] [place] [address] 11/20/2023 7:05 AM EDT Laboratory Lab Mobile Phlebotomy MVMG [address] [place] [address] Mvmg, Gml Mobile Home Draw [address] [place] [address] 11/27/2023 7:05 AM EDT Laboratory Lab Mobile Phlebotomy MVMG [address] [place] [address] Mvmg, Gml Mobile Home Draw [address] [place] [address] 12/04/2023 7:05 AM EDT Laboratory Lab Mobile Phlebotomy MVMG [address] [place] [address] Mvmg, Gml Mobile Home Draw [address] [place] [address] 12/11/2023 7:00 AM EDT Laboratory Lab Mobile Phlebotomy MVMG [address] [place] [address] Mvmg, Gml Mobile Home Draw [address] [place] [address] 12/12/2023 11:15 AM EDT Office Visit Hematology/Oncology [facility] 200 [facility] [place] [phone] Morgan Vásquez MD 200 [facility] [place] [address] 12/12/2023 11:45 AM EDT Hem/Onc Treatment Hematology/Oncology Treatment, [place] 200 [place] [phone] 12/18/2023 7:05 AM EDT Laboratory Lab Mobile Phlebotomy MVMG [address] [place] [address] Mvmg, Gml Mobile Home Draw 2520 [facility] [place] [address] 12/25/2023 7:05 AM EDT Laboratory Lab Mobile Phlebotomy MVMG 2520 [facility] [place] [address] Mvmg, Gml Mobile Home Draw 2520 [facility] [place] [address] 01/01/2024 7:05 AM EDT Laboratory Lab Mobile Phlebotomy MVMG 2520 [facility] [place] [address] Mvmg, Gml Mobile Home Draw 2520 [place] [address] 01/08/2024 7:00 AM EDT Laboratory Lab Mobile Phlebotomy MVMG 2520 [facility] [place] [address] Mvmg, Gml Mobile Home Draw 2520 [place] [address] 01/15/2024 7:05 AM EDT Laboratory Lab Mobile Phlebotomy MVMG 2520 [facility] [place] [address] Mvmg, Gml Mobile Home Draw 2520 [place] [address] 01/22/2024 7:05 AM EDT Laboratory Lab Mobile Phlebotomy MVMG 2520 [facility] [place] [address] Mvmg, Gml Mobile Home Draw 2520 [place] [address] 01/29/2024 7:05 AM EDT Laboratory Lab Mobile Phlebotomy MVMG 2520 [facility] [place] [address] Mvmg, Gml Mobile Home Draw 2520 [facility] [place] [address] 02/05/2024 7:00 AM EDT Laboratory Lab Mobile Phlebotomy MVMG 2520 [facility] [place] [address] Mvmg, Gml Mobile Home Draw [address] [place] [address] 02/05/2024 8:40 AM EDT Office Visit Neurology [facility] 200 [facility] [place] [address] Octavia Goins PA-C 200 [facility] [place] [address] 02/12/2024 7:05 AM EDT Laboratory Lab Mobile Phlebotomy MVMG [address] [place] [address] Mvmg, Gml Mobile Home Draw [address] [place] [address] 02/19/2024 7:05 AM EDT Laboratory Lab Mobile Phlebotomy MVMG [address] [place] [address] Mvmg, Gml Mobile Home Draw [address] [place] [address] 02/26/2024 7:05 AM EDT Laboratory Lab Mobile Phlebotomy MVMG [address] [place] [address] Mvmg, Gml Mobile Home Draw [address] [place] [address] 03/04/2024 7:00 AM EDT Laboratory Lab Mobile Phlebotomy MVMG [address] [place] [address] Mvmg, Gml Mobile Home Draw [address] [place] [address] 03/11/2024 7:05 AM EDT Laboratory Lab Mobile Phlebotomy MVMG [address] [place] [address] Mvmg, Gml Mobile Home Draw [address] [place] [address] 03/18/2024 7:05 AM EST Laboratory Lab Mobile Phlebotomy MVMG [address] [place] [address] Mvmg, Gml Mobile Home Draw [address] [place] [address] 03/25/2024 7:05 AM EST Laboratory Lab Mobile Phlebotomy MVMG 2520 [place] [address] Mvmg, Gml Mobile Home Draw 2520 [place] [address] 04/01/2024 7:00 AM EST Laboratory Lab Mobile Phlebotomy MVMG 2520 [facility] [place] [address] Mvmg, Gml Mobile Home Draw 2520 [place] [address] 04/08/2024 7:05 AM EST Laboratory Lab Mobile Phlebotomy MVMG [address]20 [place] [address] Mvmg, Gml Mobile Home Draw 2520 [place] [address] 04/15/2024 7:05 AM EST Laboratory Lab Mobile Phlebotomy MVMG 2520 [place] [address] Mvmg, Gml Mobile Home Draw 2520 [place] [address] 04/22/2024 7:05 AM EST Laboratory Lab Mobile Phlebotomy MVMG 2520 [place] [address] Mvmg, Gml Mobile Home Draw 2520 [place] [address] 04/29/2024 7:05 AM EST Laboratory Lab Mobile Phlebotomy MVMG 2520 [place] [address] Mvmg, Gml Mobile Home Draw 2520 [place] [address] 05/05/2024 7:05 AM EST Laboratory Lab Mobile Phlebotomy MVMG 2520 [facility] [place] [address] Mvmg, Gml Mobile Home Draw 2520 [facility] [place] [address] 09/02/2024 8:20 AM EDT Office Visit Pulmonary Medicine, [facility] [address] [place] [address] Ish Caba MD [address] [place] [address] 05/03/2025 7:40 AM EST Office Visit Dermatology [address] [place] [address] Albina Romo PA-C [address] [place] [address] [place] [address] Health Maintenance Due Date Last Done Comments [...] this encounter Medical Devices Implanted Type Area Residential Instructor Device Identifier Shelf Expiration Date Model / Serial / Lot Mesh Plug Xlarge [id number] - [id number] Implanted:Qty: 1 on 12/09/2020 by John Zaragoza MD at OR [facility] Left: Groin CR BARD : DAVOL 05/09/2023 [id number] / / [id number] documented as of this encounter Advance Directives [...] Power of Attor coco? No Care Teams Wreath Maker Relationship Specialty Start Date End Date Michael Collins MD [address] [place] [address] [place] [address] PCP - General Internal Medicine 03/01/14 documented as of this encounter
--- OUTSIDE RECORDS SUMMARY | 2024-03-26 16:36 | External Medical Summary | Summary of Care ---
Author Name Unknown Organization [facility] Address [address] [facility] [place] [address] Phone [phone] Care Team Providers Care Housekeeping Cleaner Name Role Phone Michael Collins MD Primary Care Provi zehra Reason for Visit * Reason Comments Chemotherapy Darzalex Faspro * Episode Based Medications (Routine) - Authorized Specialty Diagnoses / Procedures Referred By Contjuanito t Referred To Contact Diagnoses Multiple myeloma not having achieved remission (HCC) Procedures [place] DARATUMUMAB, HYALURONIDASE Morgan Vásquez MD [address] [place] [address] Anc Hem/Onc Amena You DEPT CLOSED - 03/26/23 200 [facility] [place] [address] Referral ID Status Reason Start Date Expiration Date V isits Requested Visits Authorized [id number] Authorized 05/28/2022 05/12/2099 99 99 Encounter Details Date Type Department Care Team (Latest Contact Info) Description 10/17/2023 8:30 AM EDT Hem/Onc Treatment Hematology/Oncology Treatment, [place] [address] [place] [address] Kenyatta, Chair 7 Hem Onc [place] [address] [address] Multiple myeloma not having achieved remission (HCC)* Allergies No known active allergiesdocumented as of this encounter (statuses as of 10/17/2023) Medications Medication Sig Dispensed Refills Start Date End Date Status THEOPHYLLINE ER 450 MG PO LW22Grpzqhyhjfb:2 tablet at bedtime Take by mouth. Indications: [...] at bedtime. PATIENT INFORMATION: Kris Galvin [address] [place] [address] [employer]: [employer] ORDER: Please start nocturnal oxygen via nasal [...] (electronically signed) Ish Caba MD Pulmonary Medicine, [facility] 132 [facility] [place] [address] [facility] Medical License Number: [id number] 1 Each 3 Active metFORMIN HCl ER [...] 4 Active Acyclovir 800 MG Oral Tablet (Zovirax)Indicati [...] and 1 Tablet before bedtime. 4 Active Apixaban 2.5 MG Oral Tablet (Eliquis)Indicati ons:Multiple myeloma not having achieved remission (HCC),Prothrombin gene mutation (HCC) Take 1 Tablet by mouth in the morning and 1 Tablet before bedtime. 30 Tablet 5 4 10/17/19 24 Discontinued Pomalidomide 4 MG Oral Capsule (Pomalyst)Indicat ions:Multiple myeloma not having achieved remission (HCC) [...] as of this encounter (statuses as of 10/17/2023) Active Problems Problem Noted Date Diagnosed Date [...] as of this encounter (statuses as of 10/17/2023) Resolved Problems Problem Noted Date Diagnosed Date Resolved Date Asthma in remission 08/28/2022 08/29/19 Asthma, mild persistent 08/28/202208/11 Asthma, severe persistent 08/28/2022 Stem cell transplant candidate 08/17/2019 09/02/2019 documented as of this encounter (statuses as of 10/17/2023) Immunizations Name Administration Dates Next Due COVID-19 [...] of this encounter Nursing Notes * Orville Lopez RN - 10/17/2023 9:54 AM EDT Exam [...] 9:00 AM EDT Pharmacy Pharmacy Hematology Oncology [place] [address] [place] [address] [facility] Hem/[place] [address] Multiple myeloma not having achieved remission (HCC)* 11/08/2023 9:40 AM EDT Office Visit Rheumatology [address] [place] [address] Darnell Higgins MD [address] [place] [facility] [place] [address] 11/13/2023 7:00 AM EDT Laboratory Lab Mobile Phlebotomy MVMG [address] [place], [place] [address] Mvmg, Gml Mobile Home Draw [address] [place], [place] [address] 11/15/2023 8:30 AM EDT Hem/Onc Treatment Hematology/Oncology [facility] 200 [facility], [place] [phone] Park, Chair 11 Hem Onc [address] [place] [address] 12/11/2023 7:00 AM EDT Laboratory Lab Mobile Phlebotomy MVMG [address] [place], [place] [address] Mvmg, Gml Mobile Home Draw [facility] [place], [place] [address] 12/12/2023 11:15 AM EDT Office Visit Hematology/Oncology [facility] 200 [place] [address] Morgan Vásquez MD 200 [place] [address] 12/12/2023 11:45 AM EDT Hem/Onc Treatment Hematology/Oncology [facility] 200 [place] [address] 01/08/2024 7:00 AM EDT Laboratory Lab Mobile Phlebotomy M[facility] [address] [place] [address] Mvmg, Gml Mobile Home Draw [address] [place] [address] 02/05/2024 7:00 AM EDT Laboratory Lab Mobile Phlebotomy M[facility]G [address] [place], [place] [address] Mvmg, Gml Mobile Home Draw [address] [place], [place] [address] 02/05/2024 8:40 AM EDT Office Visit Neurology [facility] 200 [facility] [place], [place] [address] Octavia Goins PA-C 200 [facility] [place] [address] 03/04/2024 7:00 AM EDT Laboratory Lab Mobile Phlebotomy M[facility] [address] [place] [address] Mvmg, Gml Mobile Home Draw [address] [place] [address] 04/01/2024 7:00 AM EST Laboratory Lab Mobile Phlebotomy MVMG [address] [place] [address] Mvmg, Gml Mobile Home Draw 2520 [facility] [place] [address] 09/02/2024 8:20 AM EDT Office Visit Pulmonary Medicine, [facility] 132 [facility] [place] [address] Ish Caba MD [address] [facility] [place] [address] 05/03/2025 7:40 AM EST Office Visit Dermatology [address] [place] [address] Albina Romo PA-C [address] [place] [address] [place] [address] Health Maintenance Due Date Last Done Comments [...] this encounter Medical Devices Implanted Type Area Front Desk Auxiliary Device Identifier Shelf Expiration Date Model / Serial / Lot Mesh Plug Xlarge [id number] - [id number] Implanted:Qty: 1 on 12/09/2020 by John Zaragoza MD at OR [facility] Left: Groin CR BARD : DAVOL 05/09/2023 [id number] / / [id number] documented as of this encounter Visit Diagnoses [...] ONCE PRN Other, Hypersensitivity Reaction, Starting on Sat10/17/23 at 0812, Until Sat10/18/23 at 0811, For 24 hours EPINEPHrine 1 MG/ML inj 0.3 mg 0.3 mg, Intramuscular, ONCE PRN Other, Hypersensitivity Reaction or Anaphylaxis, Starting on Sat10/17/23 at 0812, Until Sat10/18/23 at 0811, For 24 hours Hydrocortisone Sod Suc (PF) (Solu-Cortef) inj 100 mg 100 mg, IV Push, ONCE PRN Other, Hypersensitivity Reaction, Starting on Sat10/17/23 at 0812, Until Sat10/18/23 at 0811, For 24 hours meperidine (Demerol) 25 MG/ML inj 25 mg 25 mg, IV Push, ONCE PRN Shivering, Starting on Sat10/17/23 at 0812, Until Sat10/18/23 at 0811, For 24 hours Inactive Administered Medications - up to 3 most recent administrations Medication Order MAR Action Action Date Dose Rate Site Acetaminophen (Tylenol) tab 650 mg 650 mg, Oral, ONCE, On Sat10/17/23 at 0915, For 1 dose, Maximum of 4 grams (4000 mg) per day. Given 10/17/2023 9:27 AM EDT 650 mg Aqahwwcchek-qaqbxdhuoeegw-x ihj (Darzalex Faspro) 1800 mg-32163 units/ 15 ml subcut inj 15 mL, [...] Date End Date Michael Collins MD [address] [place] [address] [place] [address] PCP - General Internal Medicine 03/01/14 documented as of this encounter
--- OUTSIDE RECORDS SUMMARY | 2024-03-26 16:36 | External Medical Summary | Summary of Care ---
Author Name Unknown Organization [facility] Address [address] [place] [phone] Phone [phone] Care Team Providers Care Salt Grinder Name Role Phone Michael Collins MD Primary Care Provi zehra Reason for Referral * Ancillary Services (Within 10 days (routine)) - Authorized Specialty Diagnoses / Procedures Referred By Contac t Referred To Contact Mems Engineer Diagnoses Multiple myeloma not having achieved remission (HCC) Morgan Vásquez MD [address] [place] [id number] Referral ID Status Reason Start Date Expiration Date Visits Requested Visits Authorized [id number] Authorized Ancillary Services Required 10/17/2023 999 999 Question Answer Referral Priority Within 10 days (routine) Where should this appointment be scheduled? Elizabeth Comments Is Patient homebound? Yes All sections of this form must be filled out completely. Forms with missing or illegible information will be returned for completion. This form should not be modified in any way. Forms that have been modified will be returned. This form may not be submitted by a home health agency. It must be complete and submitted by the ordering provider. One full business day lead time is required and service will be scheduled based on the next service day for the [facility] Home Phlebotomy does not service every geographical location on a daily basis. Contact [facility] Client Services at to find out service days for a specific location. Medical Laboratory [address] [place] [id number] Ryan Mercado M.D. Director and Computator Patient Name: Kris Galvin : 1965 Sex: male Address [address] [place] [address] [place] [address] Provider: Morgan Vásquez MD Diagnosis: C90.00 Multiple myeloma not having achieved remission (HCC) (primary encounter diagnosis) Tests Requested CBCd, CMP once a week starting 10/23/23 if possible SPEP, kappa, Ig once a month starting 11/13/23 Encounter Details Date Type Department Care Team (Late st Contact Info) Description 10/17/2023 8:00 AM EDT Nurse Only Hematology/Oncology [facility] [place] [address] [place] [address] Kenyatta, Nurse Hem Onc [facility] [address] [place] [address] Allergies No known active allergiesdocumented as of this encounter (statuses as of 10/17/2023) Medications Medication Sig Dispensed Refills Start Date End Date Status THEOPHYLLINE ER 450 MG PO LB16Ppchdsdkroj:2 tablet at bedtime Take by mouth. Indications: [...] nostril at bedtime. PATIENT INFORMATION: Kris Kamar [address] [facility] [place] [address] [employer]: [employer] ORDER: Please start nocturnal oxygen via [...] (electronically signed) Ish Caba MD Pulmonary Medicine, [place] [address] [facility] [place] [address] [place] [facility] Medical License Number: [id number] 1 Each 3 Active metFORMIN HCl ER [...] as of this encounter Nursing Notes * Eleanor Crawford RN - 10/17/2023 11:27 AM EDT Patient spoke to Dr Vásquez. Plan to discontinue pomalyst/ eliquis, will start cytoxan with decadron/darzalex instead. Nurse education completed. documented in this encounter Plan of Treatment Upcoming Encounters Date Type Department Care Team (Latest Contact Info) Description 10/18/2023 9:00 AM EDT Pharmacy Pharmacy Hematology Oncology [facility] [address] [place] [address] [facility] [place] [facility] Hem/Onc [address] [place] [address] Multiple myeloma not having achieved remission (HCC)* 11/08/2023 9:40 AM EDT Office Visit Rheumatology [address] [place] [phone] Darnell Higgins MD [address] [facility] [place] [address] 11/13/2023 7:00 AM EDT Laboratory Lab Mobile Phlebotomy [facility] [address] [facility] [place] [address] [facility], G[facility] Mobile Home Draw [address] [employer] [place] [address] 11/15/2023 8:30 AM EDT Hem/Onc Treatment [facility]ology[facility] [place] [facility] [phone] Kenyatta, Chair [address] Hem On[address] [place] [address] 12/11/2023 7:00 AM EDT Laboratory Lab Mobile Phlebotomy [facility] [address] [facility] [place] [address] [facility], [facility] Draw [address] [place] [address] 12/12/2023 11:15 AM EDT Office Visit Hematology/Oncology [facility] [place] 200 [facility] [place] [phone] Morgan Vásquez MD 200 [facility] [place] [address] 12/12/2023 11:45 AM EDT Hem/Onc Treatment Hematology/Oncology Treatment, [place] [address] [facility], [place] [phone] 01/08/2024 7:00 AM EDT Laboratory Lab Mobile Phlebotomy [facility] [address] [facility] [place] [address] [facility], [facility] Draw [address] [facility] [place], [place] [address] 02/05/2024 7:00 AM EDT Laboratory Lab Mobile Phlebotomy [facility] [address] [employer] [facility] [place] [address] [facility], Gml Mobile Home Draw [address] [facility] [place], [place] [address] 02/05/2024 8:40 AM EDT Office Visit Neurology [facility] 200 [facility] [place], [place] [address] Octavia Goins PA-C 200 [facility] [place], [place] [address] 03/04/2024 7:00 AM EDT Laboratory Lab Mobile Phlebotomy [facility] [address] [facility] [place], [place] [address] [facility], Gml Mobile Home Draw 25[address] [facility] [place], [place] [address] 04/01/2024 7:00 AM EST Laboratory Lab Mobile Phlebotomy [facility] [address] [facility] [place], [place] [address] [facility], [facility] Mobile Home Draw [address] [facility] [place], [place] [address] 09/02/2024 8:20 AM EDT Office Visit Pulmonary Medicine, [facility] [address] [facility] [place] [phone] Ish Caba MD [address] [place] [address] 05/03/2025 7:40 AM EST Office Visit Dermatology [address] [place] [address] Albina Romo PA-C [address] [place] [address] [place] [address] Scheduled Referrals Name Type Priority Associated Diagnoses Orde r Schedule HOME PHLEBOTOMY REFERRAL OP Referral Within 10 days (routine) Multiple myeloma not having achieved remission (HCC) Ordered: 10/17/2023 Health Maintenance Due Date Last Done Comments [...] this encounter Medical Devices Implanted Type Area Fruit Bar Maker Device Identifier Shelf Expiration Date Model / Serial / Lot Mesh Plug Xlarge [id number] - [id number] Implanted:Qty: 1 on 12/09/2020 by John Zaragoza MD at OR [facility] Left: Groin CR BARD : DAVOL 05/09/2023 [id number] / / [id number] documented as of this encounter Visit Diagnoses [...] Power of Attor coco? No Care Teams Salt Grinder Relationship Specialty Start Date End Date Michael Collins MD [address] [place] [address] [place] [address] PCP - General Internal Medicine 03/01/14 documented as of this encounter
--- OUTSIDE RECORDS SUMMARY | 2024-03-26 16:36 | External Medical Summary | Summary of Care ---
Author Name Unknown Organization [facility] Address [address] [facility] [place] [address] Phone [phone] Care Team Providers Care Rippler Name Role Phone Michael Collins MD Primary Care Provi zehra Reason for Visit * Reason Onset Date Comments Forms Request 10/16/2023 Encounter Details Date Type Department Care Team (Late st Contact Info) Description 10/16/2023 Telephone Hematology/Oncology [facility] [place] 200 [facility] [place] [address] Morgan [facility] [address] [facility] [address] Forms Request Allergies No known active allergiesdocumented as of this encounter (statuses as of 10/17/2023) Medications Medication Sig Dispensed Refills Start Date End Date Status THEOPHYLLINE ER 450 MG PO [id number]:2 tablet at bedtime Take by mouth. Indications: [...] nostril at bedtime. PATIENT INFORMATION: Kris Galvin [address] [place] [address] SchoolControl: [employer]TBD ORDER: Please start nocturnal oxygen via nasal [...] signed) Ish Caba MD Pulmonary Medicine, [address] [place] [address] [place] [facility] Medical License Number: [id number] 1 Each 09/21/2022 Active metFORMIN HCl ER [...] Miscellaneous Notes * Telephone Encounter - Orville Lopez RN - 10/17/2023 10:07 AM EDT Advised patients that we have no received her FMLA forms at this time. Stated if she can get another copy of the forms and take them to [facility], they should be able to fax [...] October 27 . The fax number is [phone]. pt would like the copy of the FMLA paperwork joann mailed to them . Forms will be located in HEMO/CON mailbox in mail reader. Thank you documented in this encounter Plan of Treatment Upcoming Encounters Date Type Department Care Team (Latest Contact Info) Description 10/18/2023 9:00 AM EDT Pharmacy Pharmacy Hematology Oncology [facility] [address] [place] [address] [facility] [place] Hem/Onc [address] [place] [address] Multiple myeloma not having achieved remission (HCC)* 11/08/2023 9:40 AM EDT Office Visit Rheumatology [address] [place] [phone] Darnell Higgins MD [address] [place] [address] 11/13/2023 7:00 AM EDT Laboratory Lab Mobile Phlebotomy [facility] [address] [place] [address] [facility], [facility] Mobile Home Draw [address] [place] [address] 11/15/2023 8:30 AM EDT Hem/Onc Treatment Hematology/Oncology Treatment, [place] [address] [place] [phone] Kenyatta, Chair 11 Hem Onc [address] [place] [address] 12/11/2023 7:00 AM EDT Laboratory Lab Mobile Phlebotomy [facility] [address] [employer] [place], [place] [address] [facility], Gml Mobile Home Draw [address] [place], [place] [address] 12/12/2023 11:15 AM EDT Office Visit Hematology/Oncology [facility] 200 [facility], [place] [phone] Morgan Vásquez MD 200 [facility], [place] [address] 12/12/2023 11:45 AM EDT Hem/Onc Treatment Hematology/Oncology Treatment, [place] [address] [facility], [place] [phone] 01/08/2024 7:00 AM EDT Laboratory Lab Mobile Phlebotomy [facility] [address] [employer] [place], [place] [address] M[facility], Gml Mobile Home Draw [address] [facility] [place], [place] [address] 02/05/2024 7:00 AM EDT Laboratory Lab Mobile Phlebotomy [facility] [address] [place], [place] [address] [facility], Gml Mobile Home Draw [address] [place], [place] [address] 02/05/2024 8:40 AM EDT Office Visit Neurology [facility] 200 [place] [address] Octavia Goins PA-C 200 [place] [address] 03/04/2024 7:00 AM EDT Laboratory Lab Mobile Phlebotomy [facility] [address] [employer] [place], [place] [address] [facility], Gml Mobile Home Draw [address] [place], [place] [address] 04/01/2024 7:00 AM EST Laboratory Lab Mobile Phlebotomy [facility] [address] [place] [address] M[facility], Gml Mobile Home Draw [address] [place] [address] 09/02/2024 8:20 AM EDT Office Visit Pulmonary Medicine, [facility] [address] [place] [address] Ish Caba MD [address] [place] [address] 05/03/2025 7:40 AM EST Office Visit Dermatology [address] [place] [address] Albina Romo PA-C [address] [place] [address] [place] [address] Health Maintenance Due Date Last Done Comments [...] this encounter Medical Devices Implanted Type Area Onyx Chip Terrazzo Worker Device Identifier Shelf Expiration Date Model / Serial / Lot Mesh Plug Xlarge [id number] - [id number] Implanted:Qty: 1 on 12/09/2020 by John Zaragoza MD at OR [facility] Left: Groin CR BARD : DAVOL 05/09/2023 [id number] / / [id number] documented as of this encounter Advance Directives [...] Power of Attor coco? No Care Teams Rippler Relationship Specialty Start Date End Date Michael Collins MD [address] [place] [address] [place] [address] PCP - General Internal Medicine 03/01/14 documented as of this encounter
--- OUTSIDE RECORDS SUMMARY | 2024-03-26 16:36 | External Medical Summary | Summary of Care ---
Author Name Unknown Organization [facility] Address [address] [place] [address] Phone [phone] Care Team Providers Care Health Aid Name Role Phone Michael Collins MD Primary Care Provi zehra Reason for Visit * Reason Comments Medication Management Encounter Details Date Type Department Care Team (Late st Contact Info) Description 10/18/2023 9:00 AM EDT Pharmacy Pharmacy Hematology Oncology [facility] [address] [place] [address] [facility] [place] Hem/Onc [address] [place] [address] Multiple myeloma not having achieved remission (HCC)* Allergies No known active allergiesdocumented as of this encounter (statuses as of 10/17/2023) Medications Medication Sig Dispensed Refills Start Date End Date Status THEOPHYLLINE ER 450 MG PO [id number]:2 tablet at bedtime Take by mouth. Indications: [...] nostril at bedtime. PATIENT INFORMATION: Kris Galvin [address] [place] [address] [employer]: [employer]/TBD ORDER: Please start nocturnal oxygen via nasal [...] signed) Ish Caba MD Pulmonary Medicine, [address] [place] [address] [place] [facility] Medical License Number: [id number] 1 Each 3 Active metFORMIN HCl ER [...] as of this encounter Progress Notes * Radha Julian RPh - 10/17/2023 9:11 AM EDT MEDICATION THERAPY MANAGEMENT POMALIDOMIDE INITIAL INTAKE NOTE Kris Galvin [phone] Patient Phone Numbers Communication: Chart review Treatment: Medication: Pomalidomide (Pomlayst) Indication/Staging/Diagnosis Code: IgG kappa multiple myeloma Dose: 4 mg daily for 21 of 28 days Administration: +/- food Start Date: TBD Primary Educational Resource Coordinator/Oncologist: Dr. Mary Vásquez Additional Therapy: Darzalex monthly Dexamethansone 40 mg weekly Prophylactic Meds: Aspirin 81 mg daily Acyclovir Cycle Dates C1 TBD C2 TBD The Hematology/Oncology Oral Chemotherapy Clinic will assess medication compliance at each patient encounter Assessment and Plan: Per MyG 10/15/23 and discussion with ANTONIO Webster, pt does not want to pursue pomalidomide as part of his treatment due to financial concerns MTM to discharge pt from clinic at this time Radha Julian, PharmD, BCOP Clinical Pharmacist, [facility] Oral Chemotherapy [facility] 10/17/2023, 9:12 AM Time Spent on Encounter: 6 - 10 minutes Encounter Group: Hematology Encounter Interventions Item Category: Oral Chemotherapy Pomalidomide Problem/Rationale: Indication: Unnecessary medication therapy - No medical indication at this time Cost/Insurnce Issues - Cannot afford medication product Pharmacist Intervention(s): Discussed patient with nursing, Medication discontinued, and Medicationreconciliation Magnitude of Intervention: Modification of medication for asymtomatic patients (Level 2) documented in this encounter Plan of Treatment Upcoming Encounters Date Type Department Care Team (Late st Contact Info) Description 11/08/2023 9:40 AM EDT Office Visit Rheumatology [address] [place] [phone] Darnell Higgins MD 2520 [place] [address] 11/13/2023 7:00 AM EDT Laboratory Lab Mobile Phlebotomy [facility] 2520 [facility] [place], [place] [address] [facility], Gml Mobile Home Draw 25[address] [facility] [place] [address] 11/15/2023 8:30 AM EDT Hem/Onc Treatment Hematology/Oncology [facility] 200 [place] [phone] [place], Chair 11 Hem On[address], [place] [address] 12/11/2023 7:00 AM EDT Laboratory Lab Mobile Phlebotomy [facility] 25[address] [facility] [place], [place] [address] Mvmg, Gml Mobile Home Draw [facility]0 [facility], [place] [address] 12/12/2023 11:15 AM EDT Office Visit Hematology/Oncology [facility] 200 [place] [phone] Morgan Vásquez MD 200 [place] [address] 12/12/2023 11:45 AM EDT Hem[facility] 200 [facility], [place] [phone] 01/08/2024 7:00 AM EDT Laboratory Lab Mobile Phlebotomy [facility] [address] [facility] [place] [address] M[facility]mg, Gml Mobile Home Draw 25[address] [facility] [place], [place] [address] 02/05/2024 7:00 AM EDT Laboratory Lab Mobile Phlebotomy [facility] [address] [facility] [place] [address] M[facility], Gml Mobile Home Draw 25[address] [facility] [place] [address] 02/05/2024 8:40 AM EDT Office Visit Neurology [facility] 200 [facility] [place] [address] Octavia Goins PA-C [address] [place] [address] 03/04/2024 7:00 AM EDT Laboratory Lab Mobile Phlebotomy [facility] [address] [employer] [place] [address] Mvmg, Gml Mobile Home Draw [address] [employer] [place] [address] 04/01/2024 7:00 AM EST Laboratory Lab Mobile Phlebotomy [facility] [address] [employer] [place] [address] M[facility], Gml Mobile Home Draw [address] [employer] [place] [address] 09/02/2024 8:20 AM EDT Office Visit Pulmonary Medicine, [facility] 132 [facility] [place] [address] Ish Caba MD [address] [facility] [place] [address] 05/03/2025 7:40 AM EST Office Visit Dermatology [address] [place] [address] Albina Romo PA-C [address] [place] [address] [place] [address] Health Maintenance Due Date Last Done Comments [...] this encounter Medical Devices Implanted Type Area Web Design Instructor Device Identifier Shelf Expiration Date Model / Serial / Lot Mesh Plug Xlarge [id number] - [id number] Implanted:Qty: 1 on 12/09/2020 by John Zaragoza MD at OR [facility] Left: Groin CR BARD : DAVOL 05/09/2023 [id number] / / [id number] documented as of this encounter Visit Diagnoses [...] Power of Attor coco? No Care Teams Health Aid Relationship Specialty Start Date End Date Michael Collins MD [address] [place] [address] [place] [address] PCP - General Internal Medicine 03/01/14 documented as of this encounter
--- OUTSIDE RECORDS SUMMARY | 2024-03-26 16:36 | External Medical Summary ---
Author Name Unknown Address Unknown Organization K01:LABORATORY [facility] - [address] [place] [facility] [place] [address] Laboratory Report Ordering Provider Test Date Status KALPESH SERRANO 10/16/2023 09:30:00 Final weekly for first 8 weeks, th en monthly thereafter Observation Date Value Abnormality Reference (Units ) Status BUN 10/16/2023 09:30:00 19 6-20 (mg/dL) Final Creatinine 10/16/2023 09:30:00 1.1 0.6-1.2 (mg/dL) Final Glomerular filtration rate/1.73 sq M.predicted [Volume Rate/Area] in Serum, Plasma or Blood by Creatinine-based formula (CKD-EPI) 10/16/2023 09:30:00 78 >=60 (mL/min) Final eGFR is calculated based on the CKD-EPI 2020 equation Sodium 10/16/2023 09:30:00 138 135-146 (m mol/L) Final Potassium 10/16/2023 09:30:00 3.7 3.5-5.1 (m mol/L) Final Cl 10/16/2023 09:30:00 98 98-107 (mm ol/L) Final CO2 10/16/2023 09:30:00 29 22-32 (mmo l/L) Final Anion gap 10/16/2023 09:30:00 11 7-15 (mmol /L) Final Glucose 10/16/2023 09:30:00 106 70-120 (mg /dL) Final Albumin 10/16/2023 09:30:00 4.6 3.8-5.0 (g /dL) Final AST (Aspartate aminotransferase) 10/16/2023 09:30:00 26 10-50 (U/L) Final Alk Phos 10/16/2023 09:30:00 118 35-130 (U/ L) Final Bilirubin, Total 10/16/2023 09:30:00 0.5 <=1 .2 (mg/dL) Final Calcium 10/16/2023 09:30:00 9.6 8.4-10.2 ( mg/dL) Final Protein 10/16/2023 09:30:00 7.2 6.0-8.3 (g /dL) Final ALT (Alanine aminotransferase) 10/16/2023 09:30:00 22 10-50 (U/L) Final Performing Location LAB[facility]ATORY [facility] - [address] [facility] [address]
--- OUTSIDE RECORDS SUMMARY | 2024-03-26 16:36 | External Medical Summary | Summary of Care ---
Author Name Unknown Organization [facility] Address [address] [facility] [place] [address] Phone [phone] Care Team Providers Care Mass Spectrometry Manager Name Role Phone Michael Collins MD Primary Care Provi zehra Reason for Visit * Reason Onset Date Comments FYI 10/11/2023 Encounter Details Date Type Department Care Team (Late st Contact Info) Description 10/11/2023 Telephone Hematology/Oncology [facility] [place] 200 [facility] [place] [phone] Morgan [facility] [address] FY[facility] Allergies No known active allergiesdocumented as of this encounter (statuses as of 10/15/2023) Medications Medication Sig Dispensed Refills Start Date End Date Status THEOPHYLLINE ER 450 MG PO NV16Tbqzmgjtfik:2 tablet at bedtime Take by mouth. Indications: [...] nostril at bedtime. PATIENT INFORMATION: Kris Galvin [address] [place] [address] [employer]/TBD ORDER: Please start nocturnal oxygen via nasal [...] signed) Ish Caba MD Pulmonary Medicine, [address] [place] [address] [place] [facility] Medical License Number: [id number] 1 Each 09/21/2022 Active metFORMIN HCl ER [...] before bedtime. 180 Capsule 1 09/30/2023 Active Apixaban 2.5 MG Oral Tablet (Eliquis)Indicatio ns:Multiple myeloma not having achieved remission (HCC),Prothrombin gene mutation (HCC) Take 1 Tablet by mouth in the morning and 1 Tablet before bedtime. 30 Tablet 5 10/04/2023 Active dexAMETHasone 4 MG Oral Tablet (Decadron)Indicati [...] for Nausea. 60 Tablet 5 10/09/2023 Active Pomalidomide 4 MG Oral Capsule (Pomalyst)Indicati ons:Multiple myeloma not having achieved remission (HCC) Take 4 mg by mouth daily. For 21 days, followed by 7 days off. 21 Capsule 10/09/2023 Active metFORMIN HCl ER 500 MG Oral Tablet Extended Release 24 Hour (Glucophage XR) Take 1 Tablet by mouth in the morning and 1 Tablet before bedtime. 10/01/2023 Active documented as of this encounter (statuses as of 10/15/2023) Active Problems Problem Noted Date Diagnosed Date [...] as of this encounter (statuses as of 10/15/2023) Resolved Problems Problem Noted Date Diagnosed Date Resolved Date Asthma in remission 08/28/2022 08/29/19 Asthma, mild persistent 08/28/202208/11 Asthma, severe persistent 08/28/2022 Stem cell transplant candidate 08/17/2019 09/02/2019 documented as of this encounter (statuses as of 10/15/2023) Immunizations Name Administration Dates Next Due COVID-19 mRNA, LNP-s, No Pre serve, 2-Dose Series ([employer]) 01/17/2021,08/05/2020,07/08/2020 COVID-19, LNP-s, No Preserve , Bryant-sucrose, [...] encounter Miscellaneous Notes * Telephone Encounter - Stephania Graham OSA - 10/15/2023 9:29 AM EDT Update on copay assistance [facility] spoke [facility] patient and was referred to [facility] will contact the patient for financial information and then determine if any funding is available to assist the patient Will follow up again on Th/Fri this week for additional updates. Addendum: [employer] winter was added and applied. Pharmacy will reach out to schedule delivery. P[facility] Hematology Oncology Oral Chemotherapy Clinic Medication Therapy Disease Management [facility] 10/15/23 9:31 AM Time Spent on Encounter: 6 - 10 minutes * Telephone Encounter - Stephania Graham OSA - 10/11/2023 9:32 AM EDT Images from the original note were not included. MEDICATION THERAPY MANAGEMENT POMALIDOMIDE INITIAL INTAKE NOTE Kris Galvin [phone] Patient Phone Numbers Communication: Spoke to [facility] Treatment: Medication: Pomalidomide (Pomlayst) Indication/Staging/Diagnosis Code: IgG kappa multiple myeloma Dose: 4 mg daily for 21 of 28 days Administration: +/- food Start Date: TBD Primary Supervisor Bottle House Cleaners/Oncologist: Dr. Mary Vásquez Copay is $3299.03 [facility] will see if copay assistance is available for patient. Will follow up next week for additional updates [facility]EN[facility] Hematology Oncology Oral Chemotherapy Clinic Medication Therapy Disease Management [facility] 10/11/23 9:33 AM Time Spent on Encounter: 6 - 10 minutes documented in this encounter Plan of Treatment Upcoming Encounters Date Type Department Care Team (Late st Contact Info) Description 10/16/2023 7:00 AM EDT Laboratory Lab Mobile Phlebotomy [facility] [address] [place] [address] Mvmg, Gml Mobile Home Draw [address] [employer] [place] [address] 10/17/2023 8:30 AM EDT Hem/Onc Treatment Hematology/Oncology Treatment, [place] [address] [place] [address] Kenyatta, Chair 7 Hem Onc Scenery 200 [facility] [place] [address] 10/18/2023 1:15 PM EDT Pharmacy Pharmacy Hematology Oncology [address] [phone] [facility] Clinic Hem/Onc [address] [place], [place] [address] 11/08/2023 9:40 AM EDT Office Visit Rheumatology [address] [place] [phone] Darnell Higgins MD [address] [employer] [place], [place] [address] 11/13/2023 7:00 AM EDT Laboratory Lab Mobile Phlebotomy [facility] [address] [employer] [place] [address] Mvmg, Gml Mobile Home Draw 2520 [facility] [place] [address] 11/15/2023 8:30 AM EDT Hem[facility] 200 [facility], [place] [phone] Kenyatta, Chair 11 Hem On[address] [place], [place] [address] 12/11/2023 7:00 AM EDT Laboratory Lab Mobile Phlebotomy [facility] [address] [facility] [place] [address] Mvmg, Gml Mobile Home Draw 2520 [facility] [place], [place] [address] 12/12/2023 11:15 AM EDT Office Visit Hematology/Oncology [facility] 200 [facility] [place], [place] [phone] Morgan Vásquez MD 200 [facility] [place], [place] [address] 12/12/2023 11:45 AM EDT Hem/Onc Treatment Hematology/Oncology Treatment, [place] 200 [facility], [place] [phone] 01/08/2024 7:00 AM EDT Laboratory Lab Mobile Phlebotomy [facility] [address] [employer] [place] [address] Mvmg, Gml Mobile Home Draw [address] [employer] [place], [place] [address] 02/05/2024 7:00 AM EDT Laboratory Lab Mobile Phlebotomy [facility] [address] [employer] [place], [place] [address] Mvmg, Gml Mobile Home Draw [address] [place] [address] 02/05/2024 8:40 AM EDT Office Visit Neurology [facility] 200 [facility] [place], [place] [address] Octavia Goins PA-C 200 [facility] [place], [place] [address] 03/04/2024 7:00 AM EDT Laboratory Lab Mobile Phlebotomy [facility] [address] [employer] [place] [address] Mvmg, Gml Mobile Home Draw [address] [employer] [place], [place] [address] 04/01/2024 7:00 AM EST Laboratory Lab Mobile Phlebotomy [facility] [address] [employer] [place], [place] [address] Mvmg, Gml Mobile Home Draw [address] [place], [place] [address] 09/02/2024 8:20 AM EDT Office Visit Pulmonary Medicine, [facility] [address] [facility] [place] [address] Ish Caba MD [address] [place] [address] 05/03/2025 7:40 AM EST Office Visit Dermatology [address] [place] [address] Albina Romo PA-C [address] [place] [address] [place] [address] Health Maintenance Due Date Last Done Comments Depression Screening 1976 Albumin/Creatinine Ratio 1982 Cologuard 2009 Fecal Occult Blood Test 2009 Sigmoidoscopy 2009 COVID-19 Vaccine (24 season) 2023 01/28/2022, 09/26/2021, 01/17/2021, Additional history exists Colonoscopy 03/03/2023 03/03/2018, 03/03/2018 Colorectal Cancer Screening 03/03/2023 GFR 10/10/2024 10/11/2023, 05/0 12/2023, 08/21/2023, Additional history exists Lipid Panel 11/18/2024 11/19/2019, 07/11, 07/29/2009 Diabetes Screening 10/10/2026 10/11/2023, 0 10/11/2023, 09/18/2023, Additional history exists DTaP,Tdap,and Td Vaccines (4 [...] this encounter Medical Devices Implanted Type Area Printing Gray Cloth Tender Device Identifier Shelf Expiration Date Model / Serial / Lot Mesh Plug Xlarge [id number] - [id number] Implanted:Qty: 1 on 12/09/2020 by John Zaragoza MD at OR [facility] Left: Groin CR BARD : DAVOL 05/09/2023 [id number] / / [id number] documented as of this encounter Advance Directives [...] Power of Attor coco? No Care Teams Mass Spectrometry Manager Relationship Specialty Start Date End Date Michael Collins MD [address] [place] [address] [place] [address] PCP - General Internal Medicine 03/01/14 documented as of this encounter
--- OUTSIDE RECORDS SUMMARY | 2024-03-26 16:36 | External Medical Summary ---
Author Name Unknown Address Unknown Organization K01:LABORATORY [facility] - [address] [place] [facility] [place] [address] Laboratory Report Ordering Provider Test Date Status KALPESH SERRANO 10/16/2023 09:30:00 Final weekly for first 8 weeks, th en monthly thereafter Observation Date Value Abnormality Reference (Units ) Status SYNC LEUKOCYTES IN BLOOD BY AUTOMATED COUNT 10/16/2023 09:30:00 4.92 4.00-10.80 (K/uL) Final Segs 10/16/2023 09:30:00 60.4 40.0-75.0 (%) Final Lymphs % 10/16/2023 09:30:00 22.0 18.0-42.0 (%) Final Monos 10/16/2023 09:30:00 14.6 Above high normal 1.0-11.0 (%) Final Eosinophils 10/16/2023 09:30:00 2.2 0.0-6.0 (%) Final Basos 10/16/2023 09:30:00 0.6 0.0-2.0 (%) Final Immature Granulocyte, Percent 10/16/2023 09:30:00 0.2 0.0-2.0 (%) Final Absolute Segs 10/16/2023 09:30:00 2.97 1.80-7.70 (K/uL) Final Lymphs, absolute 10/16/2023 09:30:00 1.08 1.00-4.80 (K/ul) Final Monos, Abs 10/16/2023 09:30:00 0.72 0.00-1.10 (K/uL) Final Eos, Abs 10/16/2023 09:30:00 0.11 0.00-0.70 (K/uL) Final Basos, Abs 10/16/2023 09:30:00 0.03 0.00-0.20 (K/uL) Final Immature Granulocytes, Number 10/16/2023 09:30:00 0.01 0.00-0.20 (K/uL) Final Performing Location LABORATORY [facility] - [facility] [address] [address]
--- OUTSIDE RECORDS SUMMARY | 2024-03-26 16:36 | External Medical Summary ---
Author Name Unknown Address Unknown Organization K01:[place] [facility] [place] [address] [place] [address] Laboratory Report Ordering Provider Test Date Status KALPESH SERRANO 10/16/2023 09:30:00 Final Observation Date Value Abnormality Reference (Units ) Status IgG 10/16/2023 09:30:00 [phone] ( mg/dL) Final IgA 10/16/2023 09:30:00 19 Below low normal 70- 400 (mg/dL) Final IgM 10/16/2023 09:30:00 12 Below low normal 40- 230 (mg/dL) Final Performing Location LABORATORY C - [address] [place] [address]
--- OUTSIDE RECORDS SUMMARY | 2024-03-26 16:36 | External Medical Summary | Summary of Care ---
Author Name Unknown Organization [facility] Address [address] [place] [address] Phone [phone] Care Team Providers Care Cdl Bulk Driver Name Role Phone Michael Collins MD Primary Care Provi [facility] Reason for Visit * Reason Comments Outpatient Testing * Auth/Cert Specialty Diagnoses / Procedures Referred By Contac t Referred To Contact Diagnoses Multiple myeloma not having achieved remission (HCC) Multiple myeloma not having achieved remission (HCC) [C90.00] Procedures PRE / POST CARE PRE / POST CARE [facility] [address] [place] [address] Phone: [phone] [address] Referral ID Status Reason Start Date Expiration Date Visits Re quested Visits Authorized [id number] Encounter Details Date Type Department Care Team (Late st Contact Info) Description 10/11/2023 9:10 AM EDT Laboratory Laboratory, [address] [phone] [facility], Lab [address] [place] [address] Multiple myeloma not having achieved remission (HCC) Allergies No known active allergiesdocumented as of this encounter (statuses as of 10/15/2023) Medications Medication Sig Dispensed Refills Start Date End Date Status THEOPHYLLINE ER 450 MG PO MR99Jrezqrasdcx:2 tablet at bedtime Take by mouth. Indications: [...] nostril at bedtime. PATIENT INFORMATION: Kris Galvin [address] [place] [address] [employer]: [employer] ORDER: Please start nocturnal oxygen via nasal [...] signed) Ish Caba MD Pulmonary Medicine, [address] [place] [address] [place] [facility] Medical License Number: [id number] 1 Each 3 Active metFORMIN HCl ER [...] before bedtime. 180 Capsule 1 4 Active Apixaban 2.5 MG Oral Tablet (Eliquis)Indicati ons:Multiple myeloma not having achieved remission (HCC),Prothrombin gene mutation (HCC) Take 1 Tablet by mouth in the morning and 1 Tablet before bedtime. 30 Tablet 5 4 Active dexAMETHasone 4 MG Oral Tablet [...] for Nausea. 60 Tablet 5 4 Active Pomalidomide 4 MG Oral Capsule (Pomalyst)Indicat ions:Multiple myeloma not having achieved remission (HCC) Take 4 mg by mouth daily. For 21 days, followed by 7 days off. 21 Capsule 4 Active traMADol HCl 50 MG Oral Tablet (Ultram) Take by mouth. 10/11/19 24 Discontinued Amoxicillin-Pot Clavulanate 500-125 MG Oral Tablet (Augmentin) Take 1 Tablet by mouth in the morning and 1 Tablet at noon and 1 Tablet before bedtime. 10/11/19 24 Discontinued Hospital, Clinic, or Other Facility [...] mRNA, LNP-s, No Pre serve, 2-Dose Series ([facility]) 01/17/2021,08/05/2020,07/08/2020 COVID-19, LNP-s, No Preserve , Bryant-sucrose, [...] AM EDT Laboratory Lab Mobile Phlebotomy [facility] [address] [place] [address] Mvmg, Gml Mobile Home Draw [address] [facility] [place] [address] 10/17/2023 8:30 AM EDT Hem/Onc Treatment Hematology/Oncology Treatment, [place] [address] [place] [phone] Park, Chair 7 Hem On[address] [place] [address] 10/18/2023 9:00 AM EDT Pharmacy Pharmacy Hematology Oncology [address] [address] [facility] Hem/Onc [facility] [place] [address] 11/08/2023 9:40 AM EDT Office Visit Rheumatology [address] [place] [phone] Darnell Higgins MD [address] [employer] [place] [address] 11/13/2023 7:00 AM EDT Laboratory Lab Mobile Phlebotomy [facility] [address] [place] [address] Mvmg, Gml Mobile Home Draw [address] [place], [place] [address] 11/15/2023 8:30 AM EDT [facility] 200 [facility], [place] [phone] Kenyatta, Chair 11 Hem Onc [facility] 200 [place] [address] 12/11/2023 7:00 AM EDT Laboratory Lab Mobile Phlebotomy [facility] [address] [place], [place] [address] Mvmg, Gml Mobile Home Draw [address] [place], [place] [address] 12/12/2023 11:15 AM EDT Office Visit Hematology/Oncology [facility] 200 [place] [phone] Morgan Vásquez MD 200 [place] [address] 12/12/2023 11:45 AM EDT Hem/Onc Treatment Hematology/Oncology [facility] 200 [place] [phone] 01/08/2024 7:00 AM EDT Laboratory Lab Mobile Phlebotomy [facility] [address] [place] [address] Mvmg, Gml Mobile Home Draw [address] [place] [address] 02/05/2024 7:00 AM EDT Laboratory Lab Mobile Phlebotomy [facility] [address] [place] [address] Mvmg, Gml Mobile Home Draw [address] [place] [address] 02/05/2024 8:40 AM EDT Office Visit Neurology [facility] 200 [facility] [place], [place] [address] Octavia Goins PA-C 200 [facility] [place] [address] 03/04/2024 7:00 AM EDT Laboratory Lab Mobile Phlebotomy [facility] [address] [employer] [place] [address] Mvmg, Gml Mobile Home Draw [address] [employer] [place] [address] 04/01/2024 7:00 AM EST Laboratory Lab Mobile Phlebotomy [facility] [address] [employer] [place] [address] Mvmg, Gml Mobile Home Draw [address] [employer] [place] [address] 09/02/2024 8:20 AM EDT Office Visit Pulmonary Medicine, [facility] 132 [facility] [place] [address] Ish Caba MD [address] [facility] [place] [address] 05/03/2025 7:40 AM EST Office Visit Dermatology [address] [place] [address] Albina Romo PA-C [address] [place] [address] [place] [address] Health Maintenance Due Date Last Done Comments Depression Screening 1976 Albumin/Creatinine Ratio 1982 Cologuard 2009 Fecal Occult Blood Test 2009 Sigmoidoscopy 2009 COVID-19 Vaccine ( season) 2023 01/28/2022, 09/26/2021, 01/17/2021, Additional history exists Colonoscopy 03/03/2023 03/03/2018, 03/03/2018 Colorectal Cancer Screening 03/03/2023 GFR 10/10/2024 10/11/2023, 12/2023, 08/21/2023, Additional history exists Lipid Panel [...] this encounter Medical Devices Implanted Type Area Vacuum Cleaner Repair Person Device Identifier Shelf Expiration Date Model / Serial / Lot Mesh Plug Xlarge [id number] - [id number] Implanted:Qty: 1 on 12/09/2020 by John Zaragoza MD at [facility] Left: Groin CR BARD : DAVOL 05/09/2023 [id number] / / [id number] documented as of this encounter Procedures Procedure Name Priority Date/Time Associated Diagnosis Comments DIFFERENTIAL, AUTOMATED STAT 10/11/2023 9:07 AM EDT Multiple myeloma not having achieved remission (HCC) COMPREHENSIVE METABOLIC PANEL STAT 10/11/2023 9:07 AM EDT Multiple myeloma not having achieved remission (HCC) CBC STAT 10/11/2023 9:07 AM EDT Multiple myeloma not having achieved remission (HCC) CBC STAT 10/11/2023 9:07 AM EDT Multiple myeloma not having achieved remission (HCC) documented in this encounter Results * (ABNORMAL) DIFFERENTIAL, AUTOMATED (10/11/2023 9:07 AM EDT) [facility] WBC 5.74 4.00 - 10.80 K/uL 10/11/2023 9:47 AM EDT LABORATORY [facility] Neutrophils % 65.0 40.0 - 75.0 % 10/11/2023 9:47 AM EDT LABORATORY [facility] Lymphocytes % 19.7 18.0 - 42.0 % 10/11/2023 9:47 AM EDT LABORATORY [facility] Monocytes % 12.9(H) 1.0 - 11.0 % 10/11/2023 9:47 AM EDT LABORATORY [facility] Eosinophils % 1.9 0.0 - 6.0 % 10/11/2023 9:47 AM EDT LABORATORY [facility] Basophils % 0.3 0.0 - 2.0 % 10/11/2023 9:47 AM EDT LABORATORY [facility] Immature Granulocytes % 0.2 0.0 - 2.0 % 10/11/2023 9:47 AM EDT LABORATORY [facility] Absolute Neutrophils 3.73 1.80 - 7.70 K/uL 10/11/2023 9:47 AM EDT LABORATORY [facility] Absolute Lymphocytes 1.13 1.00 - 4.80 K/ul 10/11/2023 9:47 AM EDT LABORATORY [facility] Absolute Monocytes 0.74 0.00 - 1.10 K/uL 10/11/2023 9:47 AM EDT LABORATORY [facility] Absolute Eosinophils 0.11 0.00 - 0.70 K/uL 10/11/2023 9:47 AM EDT LABORATORY [facility] Absolute Basophils 0.02 0.00 - 0.20 K/uL 10/11/2023 9:47 AM EDT LABORATORY [facility] Absolute Immature Granulocytes 0.01 0.00 - 0.20 K/uL 10/11/2023 9:47 AM EDT LABORATORY [facility] Blood Venous blood specimen / Unknown Venipuncture / Unknown 10/11/2023 9:07 AM EDT 10/11/2023 9:08 AM EDT Morgan Vásquez MD LAB BLOOD ORDERABLES Performing Organization Address City/[facility]/ZIP Co de Phone Number LABORATORY [facility] [address] [place] [address] * CBC (10/11/2023 9:07 AM EDT) WBC 5.74 4.00 - 10.80 K/uL 10/11/2023 9:47 AM EDT LABORATORY [facility] RBC 4.17 4.50 - 5.25 M/uL 10/11/2023 9:47 AM EDT LABORATORY [facility] HGB 14.6 14.0 - 16.8 g/dL 10/11/2023 9:47 AM EDT LABORATORY [facility] HCT 42.1 40.0 - 48.4 % 10/11/2023 9:47 AM EDT LABORATORY [facility] MCV 101.0 82.0 - 99.5 fL 10/11/2023 9:47 AM EDT LABORATORY [facility] MCH 35.0 27.0 - 34.0 pg 10/11/2023 9:47 AM EDT LABORATORY [facility] MCHC 34.7 32.0 - 36.0 g/dL 10/11/2023 9:47 AM EDT LABORATORY [facility] RDW 13.7 11.5 - 15.5 % 10/11/2023 9:47 AM EDT LABORATORY [facility] PLT 140 140 - 400 K/uL 10/11/2023 9:47 AM EDT LABORATORY [facility] MPV 10.1 6.6 - 11.1 fL 10/11/2023 9:47 AM EDT LABORATORY [facility] nRBCs 0 <=0 /100 WBCs 10/11/2023 9:47 AM EDT LABORATORY [facility] Blood Venous blood specimen / Unknown Venipuncture / Unknown 10/11/2023 9:07 AM EDT 10/11/2023 9:08 AM EDT Morgan Vásquez MD LAB BLOOD ORDERABLES Performing Organization Address City/[facility]/ZIP Co de Phone Number LABORATORY [address] [address] * (ABNORMAL) COMPREHENSIVE METABOLIC PANEL (10/11/2023 9:07 AM EDT) BUN 21(H) 6 - 20 mg/dL 10/11/2023 9:27 AM EDT LABORATORY [facility] Creatinine 1.0 0.6 - 1.2 mg/dL 10/11/2023 9:27 AM EDT LABORATORY [facility] Estimated Glomerular Filtration Rate 89 >=60 mL/min 10/11/2023 9:27 AM EDT LABORATORY [facility] Comment:eGFR is calculated b ased on the CKD-EPI 2020 equation Sodium 141 135 - 146 mmol/L 10/11/2023 9:27 AM EDT LABORATORY [facility] Potassium 4.2 3.5 - 5.1 mmol/L 10/11/2023 9:27 AM EDT LABORATORY [facility] Chloride 101 98 - 107 mmol/L 10/11/2023 9:27 AM EDT LABORATORY [facility] CO2 28 22 - 32 mmol/L 10/11/2023 9:27 AM EDT LABORATORY [facility] Anion Gap 12 7 - 15 mmol/L 10/11/2023 9:27 AM EDT LABORATORY [facility] Glucose 111 70 - 120 mg/dL 10/11/2023 9:27 AM EDT LABORATORY [facility] Albumin 4.3 3.8 - 5.0 g/dL 10/11/2023 9:27 AM EDT LABORATORY [facility] AST 26 10 - 50 U/L 10/11/2023 9:27 AM EDT LABORATORY [facility] Alkaline Phosphatase 121 35 - 130 U/L 10/11/2023 9:27 AM EDT LABORATORY [facility] Bilirubin, Total 0.4 <=1.2 mg/dL 10/11/2023 9:27 AM EDT LABORATORY [facility] Calcium 9.4 8.4 - 10.2 mg/dL 10/11/2023 9:27 AM EDT LABORATORY [facility] Protein 7.2 6.0 - 8.3 g/dL 10/11/2023 9:27 AM EDT LABORATORY [facility] ALT 24 10 - 50 U/L 10/11/2023 9:27 AM EDT LABORATORY [facility] Blood Venous blood specimen / Unknown Venipuncture / Unknown 10/11/2023 9:07 AM EDT 10/11/2023 9:08 AM EDT Morgan Vásquez MD LAB BLOOD ORDERABLES LABORATORY [facility] 400 [facility] [place] [address] documented in this encounter Visit Diagnoses Diagnosis [...] Power of Attor coco? No Care Teams Cdl Bulk Driver Relationship Specialty Start Date End Date Michael Collins MD [address] [place] [address] [place] [address] PCP - General Internal Medicine 03/01/14 documented as of this encounter
--- OUTSIDE RECORDS SUMMARY | 2024-03-26 16:36 | External Medical Summary | Summary of Care ---
Author Name Unknown Organization [facility] Address [address] [facility] [place] [address] Phone [phone] Care Team Providers Care Senior Buyer Name Role Phone Michael Collins MD Primary Care Provi zehra Reason for Visit * Reason Onset Date Comments FYI 10/11/2023 Encounter Details Date Type Department Care Team (Late st Contact Info) Description 10/11/2023 Telephone Hematology/Oncology [facility] [place] 200 [facility] [place] [phone] Morgan [facility]quez MD [facility] [address] FY[facility] Allergies No known active allergiesdocumented as of this encounter (statuses as of 10/15/2023) Medications Medication Sig Dispensed Refills Start Date End Date Status THEOPHYLLINE ER 450 MG PO [id number]:2 tablet at bedtime Take by mouth. Indications: [...] nostril at bedtime. PATIENT INFORMATION: Kris Galvin [address] [place] [address] [employer]: Allmoxy/TBD ORDER: Please start nocturnal oxygen via nasal [...] signed) Ish Caba MD Pulmonary Medicine, [address] [place] [address] [place] [facility] Medical License Number: [id number] 1 Each 09/21/2022 Active metFORMIN HCl ER [...] mRNA, LNP-s, No Pre serve, 2-Dose Series ([employer]) 01/17/2021,08/05/2020,07/08/2020 COVID-19, LNP-s, No Preserve , [...] the patient Will follow up again on Thurs/Fri this week for additional updates. PENNY Medina Numerical Control Tool Programmer Pharmacy Hematology Oncology Oral Chemotherapy Clinic Medication Therapy Disease Management [facility] 10/15/23 9:31 AM Time Spent on Encounter: 6 - 10 minutes * Telephone Encounter - Stephania Graham OSA - 10/11/2023 9:32 AM EDT Images from the original note were not included. MEDICATION THERAPY MANAGEMENT POMALIDOMIDE INITIAL INTAKE NOTE Kris Galvin [phone] Patient Phone Numbers Communication: Spoke to [facility] Treatment: Medication: Pomalidomide (Pomlayst) Indication/Staging/Diagnosis Code: IgG kappa multiple myeloma Dose: 4 mg daily for 21 of 28 days Administration: +/- food Start Date: TBD Primary Rn Midwife/Oncologist: Dr. Mary Vásquez Copay is $3299.03 [facility] will see if copay assistance is available for patient. Will follow up next week for additional updates PENNY Medina Numerical Control Tool Programmer Pharmacy Hematology Oncology Oral Chemotherapy Clinic Medication Therapy Disease Management [facility] 10/11/23 9:33 AM Time Spent on Encounter: 6 - 10 minutes documented in this encounter Plan of Treatment Upcoming Encounters Date Type Department Care Team (Late st Contact Info) Description 10/15/2023 1:15 PM EDT Pharmacy Pharmacy Hematology Oncology [address] [address] [facility], [facility] Hem/Onc [address] [place] [address] 10/16/2023 7:00 AM EDT Laboratory Lab Mobile Phlebotomy MVM[facility] [address] [email or web address] [place] [address] Mvmg, Gml Mobile Home Draw [address] [email or web address] [place] [address] 10/17/2023 8:30 AM EDT Hem/Onc Treatment Hematology/Oncology Treatment, [place] [address] [place] [phone] Kenyatta, Chair 7 Hem Onc Scenery [address] [place] [address] 11/08/2023 9:40 AM EDT Office Visit Rheumatology [address] [place] [phone] Darnell Higgins MD [address] [facility] [place], [place] [address] 11/13/2023 7:00 AM EDT Laboratory Lab Mobile Phlebotomy MVM[facility] [address] [email or web address] [place], [place] [address] Mvmg, Gml Mobile Home Draw 25[address] [facility] [place], [place] [address] 11/15/2023 8:30 AM EDT Hem[facility] 200 [facility], [place] [phone] Park, Chair 11 Hem Onc [address], [place] [address] 12/11/2023 7:00 AM EDT Laboratory Lab Mobile Phlebotomy MVM[facility] [address] [email or web address] [place], [place] [address] Mvmg, Gml Mobile Home Draw [address] [facility] [place], [place] [address] 12/12/2023 11:15 AM EDT Office Visit Hematology/Oncology [facility] 200 [facility], [place] [phone] Morgan Vásquez MD 200 [place] [address] 12/12/2023 11:45 AM EDT Hem[facility]Onc [facility] 200 [facility], [place] [phone] 01/08/2024 7:00 AM EDT Laboratory Lab Mobile Phlebotomy [facility] [address] [email or web address] [place] [address] Mvmg, Gml Mobile Home Draw [address] [facility] [place], [place] [address] 02/05/2024 7:00 AM EDT Laboratory Lab Mobile Phlebotomy MVM[facility] [address] [email or web address] [place], [place] [address] Mvmg, Gml Mobile Home Draw [address] [email or web address] [place] [address] 02/05/2024 8:40 AM EDT Office Visit Neurology [facility] 200 [facility] [place] [address] Octavia Goins PA-C 200 [facility] [place] [address] 03/04/2024 7:00 AM EDT Laboratory Lab Mobile Phlebotomy [facility] [email or web address] [place] [address] Mvmg, Gml Mobile Home Draw [address] [facility] [place] [address] 04/01/2024 7:00 AM EST Laboratory Lab Mobile Phlebotomy M[facility] [address] [email or web address] [place] [address] Mvmg, Gml Mobile Home Draw [address] [place] [address] [place], [place] [address] 09/02/2024 8:20 AM EDT Office Visit Pulmonary Medicine, [facility] 132 [facility] [place] [address] Ish Caba MD [address] [facility] [address] 05/03/2025 7:40 AM EST Office Visit Dermatology [address] [place] [address] Albina Romo PA-C [address] [place] [address] [place] [address] Health Maintenance Due Date Last Done Comments Depression Screening 1976 Albumin/Creatinine Ratio 1982 Cologuard 2009 Fecal Occult Blood Test 2009 Sigmoidoscopy 2009 COVID-19 Vaccine (2022-24 season) 2023 01/28/2022, 09/26/2021, 01/17/2021, Additional history exists Colonoscopy 03/03/2023 03/03/2018, 03/03/2018 Colorectal Cancer Screening 03/03/2023 GFR 10/10/2024 10/11/2023, 05/12/2023, 08/21/2023, Additional history exists Lipid Panel 11/18/2024 [...] this encounter Medical Devices Implanted Type Area Impact Hammer Operator Device Identifier Shelf Expiration Date Model / Serial / Lot Mesh Plug Xlarge [id number] - [id number] Implanted:Qty: 1 on 12/09/2020 by John Zaragoza MD at OR [facility] Left: Groin CR BARD : DAVOL 05/09/2023 [id number] / / [id number] documented as of this encounter Advance Directives [...] Power of Attor coco? No Care Teams Senior Buyer Relationship Specialty Start Date End Date Michael Collins MD [address] [place] [address] [place] [address] PCP - General Internal Medicine 03/01/14 documented as of this encounter
--- OUTSIDE RECORDS SUMMARY | 2024-03-26 16:36 | External Medical Summary | Summary of Care ---
Author Name Unknown Organization [facility] Address [address] [place] [address] Phone [phone] Care Team Providers Care Manager Wireless Name Role Phone Michael Collins MD Primary Care Provi zehra Reason for Visit * Reason Comments Outpatient Testing Encounter Details Date Type Department Care Team (Late st Contact Info) Description 10/11/2023 9:10 AM EDT Laboratory Laboratory, [address] [phone] [facility], Lab [address] [place] [address] Multiple myeloma not having achieved remission (HCC) Allergies No known active allergiesdocumented as of this encounter (statuses as of 10/15/2023) Medications Medication Sig Dispensed Refills Start Date End Date Status THEOPHYLLINE ER 450 MG PO [id number]:2 tablet at bedtime Take by mouth. Indications: [...] nostril at bedtime. PATIENT INFORMATION: Kris Galvin [address] [place] [address] [employer] EQU[employer]MENT [employer]: Anulex/TBD ORDER: Please start nocturnal oxygen via nasal [...] signed) Ish Caba MD Pulmonary Medicine, [address] [place] [address] [place] [facility] Medical License Number: [id number] 1 Each 3 Active metFORMIN HCl ER [...] Mobile Phlebotomy M[facility] [address] [place] [address] Mvmg, Gml Mobile Home Draw [address] [place] [address] 10/17/2023 8:30 AM EDT Hem/Onc Treatment Hematology/[address]cology [address], [address] [phone] Kenyatta, Chair [address] Hem On[address] [place] [address] 10/18/2023 1:15 PM EDT Pharmacy Pharmacy Hematology Oncology [address] [address] [facility] Hem/Onc [facility] [place] [address] 11/08/2023 9:40 AM EDT Office Visit Rheumatology [address] [place] [phone] Darnell Higgins MD [address] [place] [address] 11/13/2023 7:00 AM EDT Laboratory Lab Mobile Phlebotomy MVM[facility] [address] [place] [address] Mvmg, Gml Mobile Home Draw [address] [place] [address] 11/15/2023 8:30 AM EDT Hem/Onc Treatment Hematology/Oncology [address], [address] [phone] [place], Chair 11 Hem Onc [facility] 200 [facility] [place] [address] 12/11/2023 7:00 AM EDT Laboratory Lab Mobile Phlebotomy MVMG [address] [place], [place] [address] Mvmg, Gml Mobile Home Draw [address] [place], [place] [address] 12/12/2023 11:15 AM EDT Office Visit Hematology/Oncology [facility] 200 [facility] [place], [place] [phone] Morgan Vásquez MD 200 [facility] [place] [address] 12/12/2023 11:45 AM EDT Hem[facility]Onc [facility] [address] [facility] [address] [place], [place] [phone] 01/08/2024 7:00 AM EDT Laboratory Lab Mobile Phlebotomy MVM[facility] [address] [place], [place] [address] Mvmg, Gml Mobile Home Draw [address] [place], [place] [address] 02/05/2024 7:00 AM EDT Laboratory Lab Mobile Phlebotomy MVMG [address] [place], [place] [address] Mvmg, Gml Mobile Home Draw [address] [place] [address] 02/05/2024 8:40 AM EDT Office Visit Neurology [facility] 200 [facility] [place] [address] Octavia Goins PA-C 200 [facility] [place] [address] 03/04/2024 7:00 AM EDT Laboratory Lab Mobile Phlebotomy M[facility] [address] [place] [address] Mvmg, Gml Mobile Home Draw [address] [employer] [place] [address] 04/01/2024 7:00 AM EST Laboratory Lab Mobile Phlebotomy MVM[facility] 2520 [facility] [place] [address] Mvmg, Gml Mobile Home Draw [address] [place] [address] [place] [address] 09/02/2024 8:20 AM EDT Office Visit Pulmonary Medicine, [facility] 132 [facility] [place] [address] Ish Caba MD [address] [place] [address] 05/03/2025 7:40 AM EST Office Visit Dermatology [address] [place] [address] Albina Romo PA-C [address] [place] [address] [place] [address] Health Maintenance Due Date Last Done Comments [...] this encounter Medical Devices Implanted Type Area Title Inspector Device Identifier Shelf Expiration Date Model / Serial / Lot Mesh Plug Xlarge [id number] - [id number] Implanted:Qty: 1 on 12/09/2020 by John Zaragoza MD at OR [facility] Left: Groin CR BARD : DAVOL 05/09/2023 [id number] / / [id number] documented as of this encounter Procedures Procedure [...] (ABNORMAL) DIFFERENTIAL, AUTOMATED (10/11/2023 9:07 AM EDT) WBC 5.74 4.00 - 10.80 K/uL 10/11/2023 9:47 AM EDT LABORATORY [facility] Neutrophils % 65.0 40.0 - 75.0 % 10/11/2023 9:[address] [facility] Lymphocytes % 19.7 18.0 - 42.0 % 10/11/2023 9:[address] [facility] Monocytes % 12.9(H) 1.0 - 11.0 % 10/11/2023 9:[address] [facility] Eosinophils % 1.9 0.0 - 6.0 % 10/11/2023 9:[address] [facility] Basophils % 0.3 0.0 - 2.0 % 10/11/2023 9:[address] [facility] Immature Granulocytes % 0.2 0.0 - 2.0 % 10/11/2023 9:[address] [facility] Absolute Neutrophils 3.73 1.80 - 7.70 K/uL 10/11/2023 9:[address] [facility] Absolute Lymphocytes 1.13 1.00 - 4.80 K/ul 10/11/2023 9:[address] [facility] Absolute Monocytes 0.74 0.00 - 1.10 K/uL 10/11/2023 9:[address] [facility] Absolute Eosinophils 0.11 0.00 - 0.70 K/uL 10/11/2023 9:[address] [facility] Absolute Basophils 0.02 0.00 - 0.20 K/uL 10/11/2023 9:[address] [facility] Absolute Immature Granulocytes 0.01 0.00 - 0.20 K/uL 10/11/2023 9:[address] [facility] Blood Venous blood specimen / Unknown Venipuncture / Unknown 10/11/2023 9:07 AM EDT 10/11/2023 9:08 AM EDT Morgan Vásquez MD LAB BLOOD ORDERABLES LABORATORY [address] [address] * CBC (10/11/2023 9:07 AM EDT) Pathologist [facility] WBC 5.74 4.00 - 10.80 K/uL 10/11/2023 9:[address] [facility] RBC 4.17 4.50 - 5.25 M/uL 10/11/2023 9:[address] [facility] HGB 14.6 14.0 - 16.8 g/dL 10/11/2023 9:[address] [facility] HCT 42.1 40.0 - 48.4 % 10/11/2023 9:[address] [facility] MCV 101.0 82.0 - 99.5 fL 10/11/2023 9:[address] [facility] MCH 35.0 27.0 - 34.0 pg 10/11/2023 9:[address] [facility] MCHC 34.7 32.0 - 36.0 g/dL 10/11/2023 9:[address] [facility] RDW 13.7 11.5 - 15.5 % 10/11/2023 9:[address] [facility] PLT 140 140 - 400 K/uL 10/11/2023 9:[address] [facility] MPV 10.1 6.6 - 11.1 fL 10/11/2023 9:[address] [facility] nRBCs 0 <=0 /100 WBCs 10/11/2023 9:[address] [facility] Blood Venous blood specimen / Unknown Venipuncture / Unknown 10/11/2023 9:07 AM EDT 10/11/2023 9:08 AM EDT Morgan Vásquez MD LAB BLOOD ORDERABLES LABORATORY [address] [address] * (ABNORMAL) COMPREHENSIVE METABOLIC PANEL (10/11/2023 9:07 AM EDT) BUN 21(H) 6 - 20 mg/dL 10/11/2023 9:[address] [facility] Creatinine 1.0 0.6 - 1.2 mg/dL 10/11/2023 9:27 AM EDT LABORATORY GL Estimated Glomerular Filtration Rate 89 >=60 mL/min 10/11/2023 9:27 AM EDT LABORATORY GL Comment:eGFR is calculated b ased on the [...] Morgan Vásquez MD LAB BLOOD ORDERABLES LABORATORY GL [address] [place] [address] documented in this encounter Visit Diagnoses [...] of Attor coco? No Care Teams Manager Wireless Relationship Specialty Start Date End Date Michael Collins MD [address] [place] [address] [place] [address] PCP - General Internal Medicine 03/01/14 documented as of this encounter
--- OUTSIDE RECORDS SUMMARY | 2024-03-26 16:36 | External Medical Summary ---
Author Name Unknown Address Unknown Organization K01:LABORATORY [facility] [place] - [address] [place] [address] Laboratory Report Ordering Provider Test Date Status KALPESH SERRANO 10/16/2023 09:30:00 Final baseline, then every 3 month s Observation Date Value Abnormality Reference (Units ) Status TSH 10/16/2023 09:30:00 2.42 0.27-4.20 (uIU/mL) Final Performing Location LABORATORY [facility] [place] - [address] [place] [address]
--- OUTSIDE RECORDS SUMMARY | 2024-03-26 16:36 | External Medical Summary ---
Author Name Unknown Address Unknown Organization K01:[place] [place] [address] [facility] [place] [address] Laboratory Report Ordering Provider Test Date Status KALPESH SERRANO 10/16/2023 09:30:00 Final weekly for first 8 weeks, th en monthly thereafter Observation Date Value Abnormality Reference (Units ) Status WBC, Total 10/16/2023 09:30:00 4.92 4.00-10.80 (K/uL) Final RBC 10/16/2023 09:30:00 4.23 4.50-5.25 (M/uL) Final Hemoglobin 10/16/2023 09:30:00 14.6 14.0-16.8 (g/dL) Final HCT 10/16/2023 09:30:00 44.2 40.0-48.4 (%) Final MCV 10/16/2023 09:30:00 104.5 82.0-99.5 (fL) Final MCH 10/16/2023 09:30:00 34.5 27.0-34.0 (pg) Final MCHC 10/16/2023 09:30:00 33.0 32.0-36.0 (g/dL) Final RDW 10/16/2023 09:30:00 14.0 11.5-15.5 (%) Final Platelets 10/16/2023 09:30:00 145 140-400 (K/uL) Final MPV 10/16/2023 09:30:00 10.6 6.6-11.1 (fL) Final Nucleated erythrocytes/100 leukocytes [Ratio] in Blood by Automated count 10/16/2023 09:30:00 0 <=0 (/100 WBCs) Final Performing Location [place] [facility] [place] [address] [place] [address]
--- OUTSIDE RECORDS SUMMARY | 2024-03-26 16:37 | External Medical Summary | Summary of Care ---
Author Name Unknown Organization [facility] Address [address] [place] [address] Phone [phone] Care Team Providers Care Flower Maker Name Role Phone Michael Collins MD Primary Care Provi zehra Reason for Visit * Auth/Cert Specialty Diagnoses / Procedures Referred By Contjuanito t Referred To Contact Diagnoses Multiple myeloma not having achieved remission (HCC) Multiple myeloma not having achieved remission (HCC) [C90.00] Procedures PRE / POST CARE PRE / POST CARE [facility] [address] [place] [address] Phone: [phone] Or Ip [facility] [address] [place] [id number] Referral ID Status Reason Start Date Expiration Date Visits Re quested Visits Authorized [id number] Encounter Details Date Type Department Care Team (Latest Contact Info) Description 10/11/2023 9:16 AM EDT - 10/11/2023 12:35 PM EDT Hospital Encounter OR [facility], Operating Room, Main Hospital - 4th Floor [address] [place] [address] [facility], In And Out Surgery [address] [place] [address] Discharge Disposition: Home - Self Care Allergies No known active allergiesdocumented as of this encounter (statuses as of 10/12/2023) Medications Medication Sig Dispensed Refills Start Date End Date Status THEOPHYLLINE ER 450 MG PO AT68Banaqvelghp:2 tablet at bedtime Take by mouth. Indications: [...] nostril at bedtime. PATIENT INFORMATION: Kris Galvin [address] [place] [address] [email or web address]: [email or web address] ORDER: Please start nocturnal oxygen via nasal [...] signed) Ish Caba MD Pulmonary Medicine, [address] [place] [address] [facility] Medical License Number: [id number] 1 Each 3 Active metFORMIN HCl ER [...] before bedtime. 30 Tablet 5 4 Active Ondansetron HCl 8 MG Oral Tablet (Zofran)Indicatio ns:Multiple myeloma (HCC) Take 1 Tablet by mouth every 8 hours as needed for Nausea. 90 Tablet 1 4 Active Pomalidomide 4 MG Oral Capsule (Pomalyst)Indicat ions:Multiple myeloma not having achieved remission (HCC) Take 4 mg by mouth daily. For 21 days, followed by 7 days off. 21 Capsule 4 Active metFORMIN HCl ER 500 MG Oral Tablet Extended Release 24 Hour (Glucophage XR) Take 1 Tablet by mouth in the morning and 1 Tablet before bedtime. 4 Active traMADol HCl 50 MG Oral Tablet (Ultram) Take by mouth. 10/11/19 24 Discontinued Amoxicillin-Pot Clavulanate 500-125 MG Oral Tablet (Augmentin) Take 1 Tablet by mouth in the morning and 1 Tablet at noon and 1 Tablet before bedtime. 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 Multiple myeloma not [...] as of this encounter (statuses as of 10/12/2023) Resolved Problems Problem Noted Date Diagnosed Date Resolved Date Asthma in remission 08/28/2022 08/29/19 Asthma, mild persistent 08/28/202208/11 Asthma, severe persistent 08/28/2022 Stem cell transplant candidate 08/17/2019 09/02/2019 documented as of this encounter (statuses as of 10/12/2023) Immunizations Name Administration Dates Next Due COVID-19 [...] Sign Reading Time Taken Comments Blood Pressure 132/89 10/11/2023 12:15 PM EDT Pulse 75 10/11/2023 12:15 PM EDT Temperature 36.1 C (97 F) 10/11/2023 12:15 PM EDT Respiratory Rate 18 10/11/2023 12:15 PM EDT Oxygen Saturation 94% 10/11/2023 12:15 PM EDT Inhaled Oxygen Concentration - - Weight 130.6 kg (288 lb) 10/11/2023 9:26 AM EDT Height 182.9 cm (6') 10/11/2023 9:26 AM EDT Body Mass Index 39.06 10/11/2023 9:26 AM [...] No 08/31/2019 documented as of this encounter Discharge Instructions * Discharge Instr - AVS* Jonah Shafer MD - 10/11/2023 12:12 PM EDT Discharge Date: 10/11/2023 Provider: Dr. Jonah Shafer If you are experiencing any problems related to your procedure, please contact Interventional Radiology at [phone] during normal business hours: Saturday- Saturday 7:30 am - 4 pm. If a problem occursoutside of normal business hours, please call the hospital ballpoint pen assembly machine operator at [phone] and ask for theInterventional Radiologist air conditioning manager. Contact scheduling for Interventional Radiology at [phone] during normal business hours: Saturday-Saturday, 7:30 am - 4 pm. The information below provides you with the instructions and the list of medications you need to betaking following discharge from the hospital. If you have any questions, please ask before leaving.Please carry this letter with you when you see your doctor in the clinic. If you have questions, you can reach us at the numbers above. SPECIAL INSTRUCTIONS Bone marrow Biopsy Care After Your Biopsy If you experience pain or discomfort at the site you may use a cold pack on the site and/or take acetaminophen (Tylenol) or your preferred pain medicine as directed. Avoid strenuous activity for 24 to 48 hours after the procedure. Do not lift anything heavier than 10 pounds for 3 days after the procedure. Gradually increase your activity after 24 to 48 hours after the procedure. Keep the dressing clean and dry; change as needed. Dressing can be removed in 24 hours. You may shower after 24 hours. Gently wash the area and pat it dry. Please DO NOT take a bath, soak in a hot tub, or swim until the wound is completely healed. Follow Up Your requesting physician will contact you with the results of your test. Please allow 5 to 7 business days for your results. Please check [employer] messages or contact the referring physician for results. When to Call Interventional Radiology Call Interventional Radiology right away if you have any of the following: Fever above 100 degrees Fahrenheit Increased bleeding, redness, swelling, warmth, or discharge at the incision site. Constant or increasing pain, numbness, coldness, or tingling around the incision area. Vomiting or nausea that does not go away If at any time you experience any of the following or feel you are having a medical emergency, [id number] for emergency assistance. Chest Pain Sudden, severe shortness of breath Rapid heart rate Sudden onset of weakness Coughing up blood See your referring physician for follow-up appointment. Do not smoke or use tobacco products in any way! If you feel suicidal or homicidal, please call the crisis hotline at [phone] ([phone]) MODERATE SEDATION You may have received medication that made you comfortable/sedated you during your procedure. This is considered moderate sedation. This medication was given to relax you. You may also not remember having the procedure done. It may take up to 24 hours for this medication to be out of your system. Because of this, you should observe the following for the next 24 hours: Do not drink alcohol or take depressant drugs. Do not operate any type of machinery that requires hand-eye coordination. Do not sign any legal papers or documents. Do not make any financial decisions. You should be in the presence of an adult for the remainder of the day. If you are experiencing any problems related to your procedure, you should contact the Interventional Radiology physician unless otherwise directed. Driving: You may resume driving 2 day . Diet: You may resume your current diet as tolerated. Return to work or school: You may return to school or work 48 hours after the procedure, unless otherwise instructed by the physician. documented in this encounter Progress Notes * Jonah Shafer MD - 10/11/2023 12:14 PM EDT [facility]-[address] [address] OUTPATIENT SURGERY DISCHARGE SUMMARY NOTE Name: Kris Galvin Location: [facility]/OR Date: 10/11/2023 Time: 12:14 PM Surgery Date: 10/11/2023 Procedure: PRE / POST CARE N/A Surgeon: [facility], In And Out Surgery Discharge Diagnosis: bone marrow bx After examination of this patient, I have determined he is ready for discharge to home when the patient meets criteria. Discharge instructions were given to the patient. * Jonah Shafer MD - 10/11/2023 12:12 PM EDT Post Sedation Evaluation: Cardiovascular status: acceptable, BP returned to baseline, and hemodynamically stable Level of consciousness: awake and alert Airway patency: patent Distress - NAD Hydration status - well hydrated Nausea/vomiting - not present Pain Evaluation Pain Assessment Flowsheet Row Most Recent Value Pain Assessment Scale [facility] Adult Scale 0-10 Pain Score 5 (moderate pain) Vital Signs: Temp: 36.1 C (97 F) (10/10 1145) BP: 111/84 (10/10 1202) Pulse: 76 (10/10 1202) Resp: 16 (10/10 1202) SpO2: 93 % (10/10 1202) I have personally examined the patient, prescribed the necessary medications as charted, and certify that Kris Galvin is recovered for safe discharge from my face to face care. 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 Concussion with loss of consciousness of 30 minutes or less 01/03/2012 Degeneration of lumbosacral intervertebral disc 04/14/2008 Encounter for antineoplastic chemotherapy 08/31/2019 Generalized osteoarthritis 04/14/2008 History of autologous stem cell transplant (HCC) 09/02/2019 T 0 = 09/01/2019 Preparative Regimen: Melphalan 200 mg/m2 Stem Cell Dose: 5.96 X 10^6 CD 34/kg INFORMATION 12/28/11 [place] Multiple myeloma not having achieved remission (HCC) 12/30/2020 Past Surgical History: Procedure Laterality Date BONE MARROW/STEMCELL XPLNT, AUTOLOG 09/01/2019 COLONOSCOPY, DIAGNOSTIC (RECTUM) 03/03/2018 normal, repeat 5 yrs/COLONOSCOPY FLEXIBLE PROXIMAL DIAGNOSTIC performed by Bryanna Alberts MD at ENDOSCOPY [facility] IR BIOPSY 08/07/2019 IR BIOPSY 12/04/2019 IR BIOPSY 07/29/2020 IR BIOPSY 09/25/2023 IR VENOUS ACCESS NON-MEDIPORT 08/24/2019 IR VENOUS ACCESS NON-MEDIPORT 09/21/2019 LAPAROSCOPY; CHOLECYSTECTOMY 2006 REPAIR INITIAL INGUINAL HERNIA REDUCIBLE AGE 5 OR MORE Left 12/09/2020 REPAIR INITIAL INGUINAL HERNIA REDUCIBLE AGE 5 OR MORE performed by John Zaragoza MD at OR [facility] Social History Socioeconomic History Marital status: Spouse name: Yvrose Number of children: 2 Years of education: Not on file Highest education level: Not on file Occupational History Employer: [employer] 10[employer] Tobacco Use Smoking status: Former Current packs/day: 0.00 Average packs/day: 1 pack/day for 5.5 years (5.5 ttl pk-yrs) Types: Cigarettes Start date: 11/1989 Quit date: 1995 Years since quittin.4 Smokeless tobacco: Never Vaping Use Vaping status: Never Used Substance and Sexual Activity Alcohol use: No Drug use: No Sexual activity: Not on file Other Topics Concern Not on file Social History Narrative Not on file Social Determinants of Health Financial Resource Strain: Not on file Food Insecurity: Not on file Transportation Needs: Not on file Physical Activity: Not on file Stress: Not on file Social Connections: Not on file Intimate Partner Violence: Not on file Housing Stability: Not on file Family History Problem Relation Name Age of Onset Arthritis Mother No Known Problems Father No Known Problems Sister Diabetes Daughter Review of patient's allergies indicates: No Known Allergies Current Facility-Administered Medications Medication Dose Route Frequency Provider Last Rate Last Admin isolyte-S pH 7.4 infusion Intravenous Continuous Jonah Shafer MD 10 mL/hr at 10/11/23 1016 New Bag at 10/11/23 1016 REVIEW OF SYSTEMS: Constitutional: (-) fever chills sweats or weight loss Cardiovascular: (-) negative: no chest pain, dyspnea, syncope, or palpitations Pulmonary: (-) negative: no cough, wheezing, or shortness of breath Abdominal/GI: (-) negative: no pain, heartburn, dysphagia, bleeding, change in bowel habits, nauseaor vomiting OBJECTIVE: BP 137/96 | Pulse 81 | Temp 36.3 C (97.3 F) (Temporal Artery) | Resp 18 | Ht 1.829 m (6') | Wt 130.6 kg (288 lb) | SpO2 92% | BMI 39.06 kg/m | BSA 2.58 m PHYSICAL EXAM: Constitutional: no acute distress CV: normal rate and rhythm, no murmur, gallops or rub Chest: normal respiratory effort, lungs clear to auscultation and percussion, breath sounds normal Abdomen: normal: soft, bowel sounds normal, no masses, tenderness or organomegaly LABS: CBC Results: PT INR Results: Results for orders placed or performed in visit on 07/29/20 PT INR Result Value Ref Range Prothrombin Time 12.4 11.5 - 14.6 seconds INR 0.91 0.84 - 1.14 Results for orders placed or performed in visit on 12/04/19 PT/INR Result Value Ref Range Prothrombin Time 12.1 11.5 - 14.6 seconds INR 0.90 0.84 - 1.14 Results for orders placed or performed in visit on 08/07/19 PT/INR Result Value Ref Range Prothrombin Time 12.0 11.5 - 14.6 seconds INR 0.89 0.84 - 1.14 BUN Results: Lab Results Component Value Date/Time NHAN MEADOWS 21 (H) 10/11/2023 09:07 AM BUN - [facility] 21 (H) 09/18/2023 08:19 AM BUN - [facility] 22 (H) 08/21/2023 08:29 AM BUN - [facility] 25 (H) 05/03/2020 10:26 AM BUN - [facility] 22 (H) 04/19/2020 10:10 AM BUN - [facility] 31 (H) 04/06/2020 02:42 PM Creatinine Results: Lab Results Component Value Date/Time CREATININE - [facility] 1.0 10/11/2023 09:07 AM CREATININE - [facility] 1.1 09/18/2023 08:19 AM CREATININE - [facility] 1.1 08/21/2023 08:29 AM CREATININE - [facility] 0.9 05/03/2020 10:26 AM CREATININE - [facility] 0.9 04/19/2020 10:10 AM CREATININE - [facility] 1.0 04/06/2020 02:42 PM CREATININE-OUTSIDE LAB 0.98 09/23/2019 12:00 AM Potassium Results: Lab Results Component Value Date/Time POTASSIUM - [facility] 4.2 10/11/2023 09:07 AM POTASSIUM - [facility] 3.9 09/18/2023 08:19 AM POTASSIUM - [facility] 4.1 08/21/2023 08:29 AM POTASSIUM - [facility] 4.2 05/03/2020 10:26 AM POTASSIUM - [facility] 4.2 04/19/2020 10:10 AM POTASSIUM - [facility] 4.4 04/06/2020 02:42 PM POTASSIUM-OUTSIDE LAB 3.6 09/23/2019 12:00 AM INFORMED CONSENT: Yes PRE-SEDATION ASSESSMENT IMPRESSION/PLAN: Bone marrow bx Jonah Shafer MD documented in this encounter Nursing Notes * Fern Schrader I, RN - 10/11/2023 11:19 AM EDT Procedure: CT Guided Bone Marrow Biopsy Pt placed on procedure table with comfort measures intact. Hemodynamic monitoring placed and initiated, VS stable. Pt denies any complaints at current time. CT analytical statistician images obtained. Timeout performed by Dr. Jonah Shafer at 1134. Dr. Shafer reassessed patient immediately prior to moderate sedation administration and procedure start. Patient prepped for procedure. Skin around biopsy area cleaned with chloraprep and dried. 10 mL 1% buffered lidocaine administered locally to left iliac crest by . Access obtained. Images obtained. Access advanced. Images obtained. Biopsy obtained. Slides prepared and given to photonic laboratory technician who used telecytology method to verify adequacy of cellular material. Access removed. Pressure applied by MD. Gauze and Tegaderm applied to site. Post procedure image obtained. Patient tolerated procedure well without complications. All wires, catheters, sheaths and other devices have been inspected prior to the procedure for damage. All items not intended to remain in the patient have been inspected, accounted for and have beenremoved from the patient at the end of the procedure. This has been confirmed by the operating physician. Pt recieved moderate sedation for their procedure, the patient recieved fentanyl and versed. Start 1133 End 1143 Total medications given Versed: 3 mg Fentanyl: 100 mcg 1% buffered lidocaine: 10 mL documented in this encounter OR Notes * OR Surgeon - Jonah Shafer MD - 10/11/2023 12:35 PM EDT Procedure: CT-guided bone marrow biopsy. 10/11/2023 INDICATION: [Multiple myeloma] ATTENDING (OPERATING PHYSICIAN): Soni CONSENT: After a detailed discussion of the procedure, risks, benefits and alternative treatment options, informed consent was obtained. TIME OUT: A time out procedure was performed. The patient's identification was verified. Informed consent with agreement of procedure, site and position was obtained. All necessary equipment was available prior to procedure. CONTRAST: No contrast administered. COMPLICATIONS: None. ANESTHESIA: [Local lidocaine.] [IV Versed.] [IV Fentanyl.] SEDATION TIME: [Start to end: [[id number]]. Qualified nurse sedation observer [JOHANN Giraldo.] MEDICATIONS: See MAR PROCEDURE DESCRIPTION: With the patient prone, survey CT images of the [pelvis] was performed, localizing the [left] ileum. The access site was selected and prepped and draped in the usual sterile fashion. Using an Argon T-Lara bone marrow biopsy set, access to the bone marrow was achieved. A core biopsy was obtained. Subsequently, bone marrow was aspirated. The on-site cinder dump crane operator deemed the samples to be [adequate]. All specimen samples were given to the cinder dump crane operator. The cannula was then removed, hemostasis was achieved and the site was dressed. The patient tolerated the procedure well. I personally performed the procedure. Findings: Bone marrow successfully biopsied. The Argon T-lara is seen with more than adequate distance for thebiopsy throws. No immediate complication on post biopsy imaging. Impression: Successful CT-guided percutaneous bone marrow biopsy. * Operative Report Brief - Jonah Shafer MD - 10/11/2023 12:12 PM EDT PROCEDURE NOTE - Interventional Radiology [facility]-[address] [address] Name: Kris Galvin Location: [facility]/OR Date: 10/11/2023 Time: 12:12 PM PROCEDURE: bone marrow bx WRAPPER STRIPPER: Dr. Jonah Shafer ASSISTANTS: none ANESTHESIA: conscious sedation COMPLICATIONS: none SPECIMEN: tissue to surgical pathology ESTIMATED BLOOD LOSS: negligible FINDINGS: bone marrow documented in this encounter Miscellaneous Notes * Pre-Sedation Assessment - Jonah Shafer MD - 10/11/2023 11:28 AM EDT PRE-SEDATION ASSESSMENT PRE-SEDATION ASSESSMENT: Bone Marrow Bx Level of sedation planned: Minimal Patient's allergies reviewed: Yes H&P Review / Interval Note Documentation: There is no H&P on file. Difficulty with sedation / anesthesia: No Sleep apnea: No History of snoring: No History of difficult intubation: No Decreased ROM neck flexion/extension: No Tracheal deviation: No Decreased ability to open mouth / TMJ: No Loose teeth / dentures / partial: No Congenital deformities / abnormalities: No Dysphagia: No Mallampati Classification: II - soft palate, uvula, fauces visible Chest: Clear Heart: Regular Rhythm ASA Risk Stratification (Select One): ASA 2 - Mild systemic disease, no functional limitations The patient was identified and the procedure verified: Yes The patient was reevaluated immediately prior to the sedation: 10/11/2023 11:28 AM documented in this encounter Plan of Treatment Upcoming Encounters Date Type Department Care Team (Late st Contact Info) Description 10/15/2023 1:15 PM EDT Pharmacy Pharmacy Hematology Oncology [address] [address] [facility] [place] Hem/Onc [facility] [place] [address] 10/16/2023 7:00 AM EDT Laboratory Lab Mobile Phlebotomy [facility] [address] [place] [address] [facility], G[facility] Mobile Home Draw [address] [place] [address] 10/17/2023 8:30 AM EDT Hem/Onc Treatment Hematology/Oncology [address], [address] [phone] [place], Chair 7 Hem Onc [facility] [address] [place] [address] [place] [address] 11/08/2023 9:40 AM EDT Office Visit Rheumatology [address] [place] [phone] Darnell Higgins MD [address] [place] [address] 11/13/2023 7:00 AM EDT Laboratory Lab Mobile Phlebotomy [facility] [address] [place] [address] [facility], Gml Mobile Home Draw [address] [place] [address] 11/15/2023 8:30 AM EDT Hem/Onc Treatment Hematology/Oncology Treatment, [place] [address] [facility] [place] [phone] [place], Chair 11 Hem Onc Sc[place]ery [address] [facility] [place] [facility] [place] [address] 12/11/2023 7:00 AM EDT Laboratory Lab Mobile Phlebotomy [facility] [address] [place], [place] [address] [facility], Gml Mobile Home Draw [address] [place], [place] [address] 12/12/2023 11:15 AM EDT Office Visit Hematology/Oncology [facility] [address] [facility] [place], [place] [phone] Morgan Vásquez MD [address] [facility] [place], [place] [address] 12/12/2023 11:45 AM EDT Hem/Onc Treatment [facility]/Oncology [facility] 200 [facility], [place] [phone] 01/08/2024 7:00 AM EDT Laboratory Lab Mobile Phlebotomy [facility] [address] [place], [place] [address] [facility], Gml Mobile Home Draw [address] [place], [place] [address] 02/05/2024 7:00 AM EDT Laboratory Lab Mobile Phlebotomy [facility] [address] [place], [place] [address] [facility], Gml Mobile Home Draw [address] [place], [place] [address] 02/05/2024 8:40 AM EDT Office Visit Neurology [facility] [address] [facility] [place] [address] Octavia Goins PA-C [address] [facility] [place] [address] 03/04/2024 7:00 AM EDT Laboratory Lab Mobile Phlebotomy [facility] [address] [place], [place] [address] [facility], Gml Mobile Home Draw [address] [place], [place] [address] 04/01/2024 7:00 AM EST Laboratory Lab Mobile Phlebotomy [facility] [address] [place] [address] [facility], Gml Mobile Home Draw [address] [place] [address] 09/02/2024 8:20 AM EDT Office Visit Pulmonary Medicine, [facility] [address] [facility] [place] [address] Ish Caba MD [address] [place] [address] 05/03/2025 7:40 AM EST Office Visit Dermatology [address] [place] [address] Albina Romo PA-C [address] [place] [address] [place] [address] Pending Results Name Type Priority Associated Diagnoses Date /Time BONE MARROW PANEL Lab Routine 11:30 AM EDT BONE MARROW ASPIRATE LAVENDER (MOLECULAR) - 2 TUB* Lab Routine 10/11/2023 11:30 AM EDT BONE MARROW ASPIRATE GREEN (FLOW) Lab Routine 10/11/2023 11:30 AM EDT BONE MARROW ASPIRATE GREEN (REFERRED) Lab Routine 10/11/2023 11:3 0 AM EDT BONE MARROW WITH REFLEX TESTING Pathology Routine 10/11/2023 11:30 AM EDT COMPREHENSIVE BONE MARROW CONSULTATION Pathology Routine 10/11/2023 11:30 AM EDT Scheduled Orders Name Type Priority Associated Diagnoses Orde r Schedule BONE MARROW PANEL Lab Routine One Pal e for 1 Occurrences starting 10/11/2023 until 10/11/2023 BONE MARROW ASPIRATE LAVENDER (MOLECULAR) - 2 TUB* Lab Routine Once for 1 Occurrences starting 10/11/2023 until 10/11/2023 BONE MARROW ASPIRATE GREEN (FLOW) Lab Routine Once for 1 Occurrences starting 10/11/2023 until 10/11/2023 BONE MARROW ASPIRATE GREEN (REFERRED) Lab Routine Once for 1 Occurrences starting 10/11/2023 until 10/11/2023 BONE MARROW WITH REFLEX TESTING Pathology Routine Once for 1 Occurrences starting 10/11/2023 until 10/11/2023, 1 completed COMPREHENSIVE BONE MARROW CONSULTATION Pathology Routine One Time for 1 Occurrences starting 10/11/2023 until 10/11/2023 Health Maintenance Due Date Last Done Comments [...] encounter Medical Devices Implanted Type Area Chief Revenue Officer Device Identifier Shelf Expiration Date Model / Serial / Lot Mesh Plug Xlarge [id number] - [id number] Implanted:Qty: 1 on 12/09/2020 by John Zaragoza MD at OR [facility] Left: Groin CR BARD : DAVOL 05/09/2023 [id number] / / [id number] documented as of this encounter Procedures Procedure Name Priority Date/Time Associated Diagnosis Comments GLUCOSE METER, POINT OF CARE DELLA 10/11/2023 10:02 AM EDT documented in this encounter Results * GLUCOSE METER, POINT OF CARE (10/11/2023 10:02 AM EDT) [facility] Signature Glucose Meter 112 70 - 120 mg/dL 10/11/2023 10:06 AM EDT [facility] Blood Whole blood specimen / Unknown 10/11/2023 10:02 AM EDT 10/11/2023 10:06 AM EDT In And Out Surgery Glh LAB POINT OF CARE TEST DOCKED DEVICE UNSOLICITED RESULTS [facility] [address] [place] [address] documented in this encounter Administered Medications Inactive Administered Medications - up to 3 most recent administrations Medication Order MAR Action Action Date Dose Rate Site fentaNYL (PF) inj ONCE PRN NARRATOR, Starting on Sat10/11/23 at 1133, Until Sat10/11/23 at 1139 Given 10/11/2023 11:39 AM EDT 50 mcg Given 10/11/2023 11:33 AM EDT 50 mcg isolyte-S pH 7.4 infusion Intravenous, at 10 mL/hr, Plasma-LYTE 148, isolyte-S, and isolyte-S pH 7.4 are considered equivalent - including for MAR barcode scanning., CONTINUOUS, Starting on Sat10/11/23 at 1045, Until Sat10/11/23 at 1635, Pre-Op New Bag 10/11/2023 10:16 AM EDT 10 mL/hr midazolam (Versed) 2 MG/2ML inj ONCE PRN NARRATOR, Starting on Sat10/11/23 at 1134, Until Sat10/11/23 at 1139 Given 10/11/2023 11:39 AM EDT 1 mg Given 10/11/2023 11:34 AM EDT 2 mg documented in this encounter Active and Recently Administered Medications Times are shown in EDT. Continuous Medication Order 10/09/2023 10/10/2023 10/11/2023 isolyte-S pH 7.4 infusion Intravenous, at 10 mL/hr, Plasma-LYTE 148, isolyte-S, and isolyte-S pH 7.4 are considered equivalent - including for MAR barcode scanning., CONTINUOUS, Starting on Sat10/11/23 at 1045, Until Sat10/11/23 at 1635, Pre-Op 1016 (New Bag - Prov ider: Kath Kirkland RN) PRN Medication Order 10/09/2023 10/10/2023 10/11/2023 fentaNYL (PF) inj (COMPLETED) ONCE PRN NARRATOR, Starting on Sat10/11/23 at 1133, Until Sat10/11/23 at 1139 1133 (Given - Provid er: Dirk Gandhi RN)1139 (Given - Provider: Dirk Gandhi RN) midazolam (Versed) 2 MG/2ML inj (COMPLETED) ONCE PRN NARRATOR, Starting on Sat10/11/23 at 1134, Until Sat10/11/23 at 1139 1134 (Given - Provid er: Dirk Gandhi RN)1139 (Given - Provider: iDrk Gandhi RN) documented in this encounter Advance Directives * [...] Power of Attor coco? No Care Teams Flower Maker Relationship Specialty Start Date End Date Michael Collins MD [address] [facility] [place] [address] PCP - General Internal Medicine 03/01/14 documented as of this encounter"
--- OUTSIDE RECORDS SUMMARY | 2024-03-26 16:37 | External Medical Summary ---
Author Name Unknown Address Unknown Organization : Laboratory Report Ordering Provider Test Date Status KALPESH SERRANO 10/11/2023 11:30:00 Final Observation Date Value Abnormality Reference (Units) Status BONE MARROW COLLECTION 10/11/2023 11:30:00 Sent to [facility] Final Performing Location
--- OUTSIDE RECORDS SUMMARY | 2024-03-26 16:37 | External Medical Summary | Summary of Care ---
Author Name Unknown Organization [facility] Address [address] [place] [address] Phone [phone] Care Team Providers Care Foundation Coordinator Name Role Phone Michael Collins MD Primary Care Provi zehra Encounter Details Date Type Department Care Team (Late st Contact Info) Description 10/11/2023 Orders Only Hematology/Oncology, [facility] [address] [place] [address] Bk Aragon MD [address] [place] [address] Allergies No known active allergiesdocumented as of this encounter (statuses as of 10/11/2023) Medications Medication Sig Dispensed Refills Start Date End Date Status THEOPHYLLINE ER 450 MG PO [id number] tablet at bedtime Take by mouth. Indications: 2 tablet at bedtime Suspended B COMPLEX FORMULA 1 PO TABS 1 daily Suspended MULTIVITAMINS PO CAPS 1 daily Suspended FOLIC ACID 1 MG PO TABS Take by mouth daily. Suspended METOPROLOL XL TBCR 50 MG OR 1 tab daily 05/25/2014 Suspended hydrochlorothiazi de (HYDRODIURIL) 25 MG Tablet Take 1 Tablet by mouth in the morning. 1 tab daily . 5 02/22/2015 Suspended losartan (COZAAR) 50 MG Tablet Take 1 Tablet by mouth in the morning. 1 tab daily. 5 02/22/2015 Suspended VENTOLIN HFA 108 (90 BASE) MCG/ACT inhaler As needed 11 02/22/2015 Suspended omega-3 1000 MG CAPS Take by mouth. Suspended Multiple Vitamins-Minerals ([facility] IMMUNITY SUPPORT) CHEW Take by mouth. Suspended traZODone (DESYREL) 150 MG Tablet Take 250 mg by mouth at bedtime. Suspended omeprazole (PRILOSEC) 40 MG CPDR Take 1 Capsule by mouth in the morning and 1 Capsule before bedtime. Suspended albuterol sulfate (PROVENTIL) (2.5 MG/3ML) 0.083% nebulizer solution INHALE 1 VIAL VIA NEBULIZER EVERY 6 HOURS NEEDED FOR SHORTNESS OF BREATH OR WHEEZING 07/30/2019 Suspended acetaminophen (TYLENOL EXTRA STRENGTH) 500 MG Tablet Take 1 Tab by mouth every 6 hours as needed for Pain or Fever. 30 Tab 09/15/2019 Suspended Additional Information zolpidem (AMBIEN) 5 MG Tablet Take 1 Tablet by mouth at bedtime as needed for Sleep. Suspended Aspirin 81 MG Oral Tablet Chewable Take 1 Tablet by mouth in the morning. Suspended Diphenoxylate-Atr opine 2.5-0.025 MG Oral Tablet (Lomotil)Indicati ons:Multiple myeloma in remission (HCC),Diarrhea, unspecified type TAKE 1 TABLET BY MOUTH 4 TIMES A DAY NEEDED FOR DIARRHEA 60 Tab 02/07/2021 Suspended Additional Information Sildenafil Citrate 100 MG Oral Tablet 03/29/2021 Suspended Clobetasol Propionate 0.05 % External Ointment (Temovate)Indicat ions:Skin rash Apply topically to affected area 2 times a day . 30 g 2 03/01/2022 Suspended Additional Information B Complex Formula 1 (Lipotrop) Oral Tablet Suspended Levalbuterol HCl 1.25 MG/3ML Inhalation Nebulization Solution (Xopenex) INHALE CONTENTS OF 1 VIAL (3ML) EVERY 6 HOURS 05/31/2022 Suspended oxygen IN GAS Administer 2 L/min(Oxygen) into nostril at bedtime. PATIENT INFORMATION: Kris Galvin [address] [place] [address] [employer] EQUIPMENT SR Labs: [employer] ORDER: Please start nocturnal oxygen via nasal [...] signed) Ish Caba MD Pulmonary Medicine, [address] [place] [address] [place] [facility] Medical License Number: [id number] 1 Each 09/21/2022 Suspended Additional Information metFORMIN HCl ER (OSM) 500 MG Oral Tablet Extended Release 24 Hour 1 Tablet. 01/09/2023 Suspended oxyCODONE HCl 5 MG Oral Tablet (Oxy IR) TAKE 1 TAB BY MOUTH EVERY 6 HOURS NEEDED FOR PAIN Suspended Triamcinolone Acetonide 0.1 % External Cream (Aristocort) Apply 2x daily to rashes areas on trunk/arms/legs during winter time mostly. 454 g 04/29/2023 Suspended Additional Information Pregabalin 25 MG Oral Capsule (Lyrica) 1 tab am and 1 tab pm 60 Capsule 2 07/23/2023 Suspended Additional Information Acyclovir 800 MG Oral Tablet (Zovirax)Indicati ons:Multiple myeloma not having achieved remission (HCC),History of autologous stem cell transplant (HCC) TAKE 1 TABLET BY MOUTH TWICE A DAY 180 Tablet 3 09/16/2023 Suspended Additional Information DULoxetine HCl 60 MG Oral Capsule Delayed Release Particles (Cymbalta) Take 1 Capsule by mouth in the morning and 1 Capsule before bedtime. 180 Capsule 1 09/30/2023 Suspended Additional Information Apixaban 2.5 MG Oral Tablet (Eliquis)Indicati ons:Multiple myeloma not having achieved remission (HCC),Prothrombin gene mutation (HCC) Take 1 Tablet by mouth in the morning and 1 Tablet before bedtime. 30 Tablet 5 10/04/2023 Suspended Additional Information dexAMETHasone 4 MG Oral Tablet (Decadron)Indicat ions:Multiple myeloma not having achieved remission (HCC) Take 10 tablets once a week on weeks without Darzalex. Take 5 tablets on week of Darzalex injection. 35 Tablet 2 10/08/2023 Suspended Additional Information Ondansetron HCl 8 MG Oral Tablet (Zofran)Indicatio ns:Multiple myeloma (HCC) Take 1 Tablet by mouth every 8 hours as needed for Nausea. 90 Tablet 1 10/09/2023 Suspended Additional Information Prochlorperazine Maleate 10 MG Oral Tablet (Compazine)Indica tions:Multiple myeloma in remission (HCC) Take 1 Tablet by mouth every 6 hours as needed for Nausea. 60 Tablet 5 10/09/2023 Suspended Additional Information Pomalidomide 4 MG Oral Capsule (Pomalyst)Indicat ions:Multiple myeloma not having achieved remission (HCC) Take 4 mg by mouth daily. For 21 days, followed by 7 days off. 21 Capsule 10/09/2023 Suspended Additional Information metFORMIN HCl ER 500 MG Oral Tablet Extended Release 24 Hour (Glucophage XR) Take 1 Tablet by mouth in the morning and 1 Tablet before bedtime. 10/01/2023 Suspended documented as of this encounter (statuses as of 10/11/2023) Active Problems Problem Noted Date Diagnosed Date [...] 07/14/2021 Primary osteoarthritis, left ankle and foot 03/0 08/2021 Chemotherapy-induced neuropathy 03/30/2021 Multiple myeloma not [...] as of this encounter (statuses as of 10/11/2023) Resolved Problems Problem Noted Date Diagnosed Date Resolved Date Asthma in remission 08/28/2022 08/29/19 Asthma, mild persistent 08/28/202208/11 Asthma, severe persistent 08/28/2022 Stem cell transplant candidate 08/17/2019 09/02/2019 documented as of this encounter (statuses as of 10/11/2023) Immunizations Name Administration Dates Next Due COVID-19 mRNA, LNP-s, No Pre serve, 2-Dose Series (Mediamind) 01/17/2021,08/05/2020,07/08/2020 COVID-19, LNP-s, No Preserve , Bryant-sucrose, [...] 1:15 PM EDT Pharmacy Pharmacy Hematology Oncology [facility] [address] [place] [address] [facility], [facility] Hem/Onc [address] [place] [address] 10/16/2023 7:00 AM EDT Laboratory Lab Mobile Phlebotomy [place] [id number] [facility] [place] [address] Mvmg, Gml Mobile Home Draw [address] [place], [place] [address] 10/17/2023 8:30 AM EDT Hem/Onc Treatment Hematology/Oncology Treatment, [place] 200 [facility] [place] [phone] Park, Chair 7 Hem Onc Scenery 200 [place] [address] 11/08/2023 9:40 AM EDT Office Visit Rheumatology [address] [place] [phone] Darnell Higgins MD [address] [place], [place] [address] 11/13/2023 7:00 AM EDT Laboratory Lab Mobile Phlebotomy [facility] [address] [place], [place] [address] Mvmg, Gml Mobile Home Draw [address] [facility] [place] [address] 11/15/2023 8:30 AM EDT Hem/Onc Treatment Hematology/Oncology Treatment, [place] 200 [facility], [place] [phone] Kenyatta, Chair 11 Hem Onc Scenery 200 [place] [address] 12/11/2023 7:00 AM EDT Laboratory Lab Mobile Phlebotomy [facility] [address] [place] [address] Mvmg, Gml Mobile Home Draw [address] [place] [address] 12/12/2023 11:15 AM EDT Office Visit Hematology/Oncology [facility] [place] 200 [facility] [place], [place] [phone] Morgan Vásquez MD [address] [place] [address] 12/12/2023 11:45 AM EDT Hem/Onc Treatment Hematology/Oncology Treatment, [place] 200 [facility], [place] [phone] 01/08/2024 7:00 AM EDT Laboratory Lab Mobile Phlebotomy [facility] [address] [place] [address] Mvmg, Gml Mobile Home Draw [address] [facility] [place], [place] [address] 02/05/2024 7:00 AM EDT Laboratory Lab Mobile Phlebotomy [facility] [address] [facility] [place], [place] [address] Mvmg, Gml Mobile Home Draw [address] [facility] [place], [place] [address] 02/05/2024 8:40 AM EDT Office Visit Neurology [facility] 200 [facility] [place], [place] [address] Octavia Goins PA-C 200 [facility], [place] [address] 03/04/2024 7:00 AM EDT Laboratory Lab Mobile Phlebotomy [facility] [address] [place], [place] [address] Mvmg, Gml Mobile Home Draw [address] [facility] [place], [place] [address] 04/01/2024 7:00 AM EST Laboratory Lab Mobile Phlebotomy [facility] [address] [place], [place] [address] Mvmg, Gml Mobile Home Draw [address] [facility] [place] [address] 09/02/2024 8:20 AM EDT Office Visit Pulmonary Medicine, [facility] 132 [facility] [place] [address] Ish Caba MD [address] [place] [address] 05/03/2025 7:40 AM EST Office Visit Dermatology [address] [place] [address] Albina Romo PA-C [address] [place] [address] [place] [address] Scheduled Procedures Name Priority Associated Diagnoses Date/Ti me PRE / POST CARE Multiple myeloma not having achieved remission (HCC) 10/11/2023 11:00 AM EDT Health Maintenance Due Date Last [...] this encounter Medical Devices Implanted Type Area Watch And Clock Repairer Device Identifier Shelf Expiration Date Model / Serial / Lot Mesh Plug Xlarge [id number] - [id number] Implanted:Qty: 1 on 12/09/2020 by John Zaragoza MD at OR [facility] Left: Groin CR BARD : DAVOL 05/09/2023 [id number] / / [id number] documented as of this encounter Advance Directives [...] Power of Attor coco? No Care Teams Foundation Coordinator Relationship Specialty Start Date End Date Michael Collins MD [address] [place] [address] [place] [address] PCP - General Internal Medicine 03/01/14 documented as of this encounter
--- OUTSIDE RECORDS SUMMARY | 2024-03-26 16:37 | External Medical Summary | Summary of Care ---
Author Name Unknown Organization [facility] Address [address] [place] [address] Phone [phone] Care Team Providers Care Railroad Emergency Services Manager Name Role Phone Michael Collins MD Primary Care Provi zehra Reason for Visit * Reason Comments Outpatient Testing Encounter Details Date Type Department Care Team (Late st Contact Info) Description 10/11/2023 9:10 AM EDT Laboratory Laboratory, [address] [phone] [facility], Lab [address] [place] [address] Multiple myeloma not having achieved remission (HCC) Allergies No known active allergiesdocumented as of this encounter (statuses as of 10/11/2023) Medications Medication Sig Dispensed Refills Start Date End Date Status THEOPHYLLINE ER 450 MG PO [id number]:2 tablet at bedtime Take by mouth. Indications: [...] Take by mouth. Suspended Multiple Vitamins-Minerals ([facility] IMMUNITY SUPPORT) CHEW Take by mouth. Suspended [...] 30 g 2 03/01/2022 Suspended Additional Information traMADol HCl 50 MG Oral Tablet (Ultram) Take by mouth. Suspended B Complex Formula 1 (Lipotrop) Oral Tablet Suspended Levalbuterol HCl 1.25 MG/3ML Inhalation Nebulization Solution (Xopenex) INHALE CONTENTS OF 1 VIAL (3ML) EVERY 6 HOURS 05/31/2022 Suspended oxygen IN GAS Administer 2 L/min(Oxygen) into nostril at bedtime. PATIENT INFORMATION: Kris Galvin [address] [place] [address] [employer]: [employer]/TBD ORDER: Please start nocturnal oxygen via nasal [...] signed) Ish Caba MD Pulmonary Medicine, [address] [place] [address] [place] [facility] Medical License Number: [id number] 1 Each 09/21/2022 Suspended Additional Information metFORMIN [...] 180 Tablet 3 09/16/2023 Suspended Additional Information Amoxicillin-Pot Clavulanate 500-125 MG Oral Tablet (Augmentin) Take 1 Tablet by mouth in the morning and 1 Tablet at noon and 1 Tablet before bedtime. Suspended DULoxetine HCl 60 MG Oral Capsule Delayed [...] off. 21 Capsule 10/09/2023 Suspended Additional Information Hospital, Clinic, or Other Facility Administered Medication [...] Team (Late st Contact Info) Description 10/11/2023 1:15 PM EDT Pharmacy Pharmacy Hematology Oncology [facility] [address] [place] [address] [facility], [facility] Hem/Onc [address] [place] [address] 10/16/2023 7:00 AM EDT Laboratory Lab Mobile Phlebotomy [facility] [address] [place] [address] Mvmg, Gml Mobile Home Draw [address] [place] [address] 10/17/2023 8:30 AM EDT Hem/Onc Treatment Hematology/Oncology Treatment[address], [place] [phone] Kenyatta, Chair [address] [place] [address] 11/08/2023 9:40 AM EDT Office Visit Rheumatology [address] [place] [phone] Darnell Higgins MD [address] [place] [address] 11/13/2023 7:00 AM EDT Laboratory Lab Mobile Phlebotomy [facility] [address] [place] [address] Mvmg, Gml Mobile Home Draw [address] [place] [address] 11/15/2023 8:30 AM EDT Hem/Onc Treatment Hematology/Oncology Treatment, [address] [phone] Park, Chair 11 Hem Onc [facility] [place] 200 [facility] [place], [place] [address] 12/11/2023 7:00 AM EDT Laboratory Lab Mobile Phlebotomy [facility] [address] [place], [place] [address] Mvmg, Gml Mobile Home Draw [address] [place], [place] [address] 12/12/2023 11:15 AM EDT Office Visit Hematology/Oncology [facility] 200 [facility] [place], [place] [phone] Morgan Vásquez MD 200 [facility] [place], [place] [address] 12/12/2023 11:45 AM EDT Hem/Onc Treatment Hematology/Oncology Treatment, [place] [address] [facility] [address] [place], [place] [phone] 01/08/2024 7:00 AM EDT Laboratory Lab Mobile Phlebotomy [facility] [address] [place] [address] Mvmg, Gml Mobile Home Draw [address] [place], [place] [address] 02/05/2024 7:00 AM EDT Laboratory Lab Mobile Phlebotomy [facility] [address] [place], [place] [address] Mvmg, Gml Mobile Home Draw [address] [place], [place] [address] 02/05/2024 8:40 AM EDT Office Visit Neurology [facility] 200 [facility] [place], [place] [address] Octavia Goins PA-C 200 [facility] [place], [place] [address] 03/04/2024 7:00 AM EDT Laboratory Lab Mobile Phlebotomy [facility] [address] [place] [address] Mvmg, Gml Mobile Home Draw [address] [place] [address] 04/01/2024 7:00 AM EST Laboratory Lab Mobile Phlebotomy [facility] [address] [place] [address] Mvmg, Gml Mobile Home Draw [address] [facility] [place] [address] 09/02/2024 8:20 AM EDT Office Visit Pulmonary Medicine, [facility] 132 [facility] [place] [address] Ish Caba MD [address] [place] [address] 05/03/2025 7:40 AM EST Office Visit Dermatology [address] [place] [address] Albina Romo PA-C [address] [place] [address] [place] [address] Pending Results Name Type Priority Associated Diagnoses Date /Time CBC WITH WBC DIFFERENTIAL Lab STAT Multiple myeloma not having achieved remission (HCC) 10/11/2023 9:07 AM EDT COMPREHENSIVE METABOLIC PANEL Lab STAT Multiple myeloma not having achieved remission (HCC) 10/11/2023 9:07 AM EDT CBC Lab STAT Multiple myeloma not having achieved remission ([facility]) 10/11/2023 9:07 AM EDT DIFFERENTIAL, AUTOMATED Lab STAT Multiple myeloma not having achieved remission ([facility]) 10/11/2023 9:07 AM EDT Scheduled Procedures Name Priority Associated Diagnoses Date/Ti [...] 03/03/2018, 03/03/2018 Colorectal Cancer Screening 03/03/2023 GFR 09/17/2024 09/18/2023, 08/11, 07/24/2023, Additional history exists Lipid Panel 11/18/2024 11/19/2019, 07/11, 07/29/2009 Diabetes Screening 09/17/2026 09/18/2023, 0 08/21/2023, 07/24/2023, Additional history exists DTaP,Tdap,and Td Vaccines (4 [...] this encounter Medical Devices Implanted Type Area Hand Tool Filer Device Identifier Shelf Expiration Date Model / Serial / Lot Mesh Plug Xlarge [id number] - [id number] Implanted:Qty: 1 on 12/09/2020 by John Zaragoza MD at OR [facility] Left: Groin CR BARD : DAVOL 05/09/2023 [id number] / / [id number] documented as of this encounter Visit Diagnoses [...] Power of Attor coco? No Care Teams Railroad Emergency Services Manager Relationship Specialty Start Date End Date Michael Collins MD [address] [place] [address] [place] [address] PCP - General Internal Medicine 03/01/14 documented as of this encounter
--- OUTSIDE RECORDS SUMMARY | 2024-03-26 16:37 | External Medical Summary | Summary of Care ---
Author Name Unknown Organization [facility] Address [address] [facility] [place] [address] Phone [phone] Care Team Providers Care Vertical Boring Mill Operator Name Role Phone Michael Collins MD Primary Care Provi zehra Reason for Visit * Reason Onset Date Comments FYI 10/11/2023 Encounter Details Date Type Department Care Team (Late st Contact Info) Description 10/11/2023 Telephone Hematology/Oncology [facility] [place] 200 [facility] [place] [place] [phone] Morgan Vásquez [facility] [address] FYI Allergies No known active allergiesdocumented as of this encounter (statuses as of 10/11/2023) Medications Medication Sig Dispensed Refills Start Date End Date Status THEOPHYLLINE ER 450 MG PO [id number]:2 tablet at bedtime Take by mouth. Indications: [...] CAPS Take by mouth. Suspended Multiple Vitamins-Minerals ([facility]) CHEW Take by mouth. Suspended [...] nostril at bedtime. PATIENT INFORMATION: Kris Galvin [address] [place] [address] [employer]*/TBD ORDER: Please start nocturnal oxygen via nasal [...] signed) Ish Caba MD Pulmonary Medicine, [address] [place] [address] [place] [facility] Medical License Number: [id number] Each 09/21/2022 Suspended Additional Information metFORMIN [...] mRNA, LNP-s, No Pre serve, 2-Dose Series ([employer]) 01/17/2021,08/05/2020,07/08/2020 COVID-19, LNP-s, No Preserve , Bryant-sucrose, [...] Miscellaneous Notes * Telephone Encounter - Stephania Graham, PENNY - 10/11/2023 9:32 AM EDT Images from the original note were not included. MEDICATION THERAPY MANAGEMENT POMALIDOMIDE INITIAL INTAKE NOTE Kris Galvin [phone] Patient Phone Numbers Communication: Spoke to [facility] Treatment: Medication: Pomalidomide (Pomlayst) Indication/Staging/Diagnosis Code: IgG kappa multiple myeloma Dose: 4 mg daily for 21 of 28 days Administration: +/- food Start Date: TBD Primary Psychiatry Instructor/Oncologist: Dr. Mary Vásquez Copay is $3299.03 [facility] will see if copay assistance is available for patient. Will follow up next week for additional updates PENNY Medina Sr. Director Product Management Pharmacy Hematology Oncology Oral Chemotherapy Clinic Medication Therapy Disease Management [facility] 10/11/23 9:33 AM Time Spent on Encounter: 6 - 10 minutes documented in this encounter Plan of Treatment Upcoming Encounters Date Type Department Care Team (Late st Contact Info) Description 10/15/2023 1:15 PM EDT Pharmacy Pharmacy Hematology Oncology [facility] [address] [place] [address] [facility] [place] [place] [facility] Hem/Onc [facility] [place] [address] 10/16/2023 7:00 AM EDT Laboratory Lab Mobile Phlebotomy [facility] [address] [facility] [place] [address] [facility], G[facility] Mobile Home Draw [address] [facility] [place] [address] 10/17/2023 8:30 AM EDT Hem/Onc Treatment Hematology/Oncology Treatment, [place] [address] [facility] [address] [place] [phone] Kenyatta, Chair 7 Hem Onc Scenery 200 [facility] [place] [address] 11/08/2023 9:40 AM EDT Office Visit Rheumatology [address] [place] [phone] Darnell Higgins MD [address] [facility] [place] [address] 11/13/2023 7:00 AM EDT Laboratory Lab Mobile Phlebotomy [facility] [address] [facility] [place] [address] Mvmg, Gml Mobile Home Draw [address] [place] [address] 11/15/2023 8:30 AM EDT [facility] 200 [facility] Lizeth [place], [place] [phone] Park, Chair 11 Hem Onc [facility] 200 [facility] [place], [place] [address] 12/11/2023 7:00 AM EDT Laboratory Lab Mobile Phlebotomy [facility] [address] [facility] [place], [place] [address] Mvmg, Gml Mobile Home Draw 2520 [facility] [place], [place] [address] 12/12/2023 11:15 AM EDT Office Visit Hematology/Oncology [facility] 200 [facility] [place] [phone] Morgan Vásquez MD 200 [facility] [place], [place] [address] 12/12/2023 11:45 AM EDT Hem[facility] 200 [facility], [place] [phone] 01/08/2024 7:00 AM EDT Laboratory Lab Mobile Phlebotomy [facility] [address] [place] [address] [facility], Gml Mobile Home Draw [address] [place] [address] 02/05/2024 7:00 AM EDT Laboratory Lab Mobile Phlebotomy [facility] [address] [employer] Cecile Osman [place], [place] [address] Mvmg, Gml Mobile Home Draw [address] [place], [place] [address] 02/05/2024 8:40 AM EDT Office Visit Neurology [facility] [place] 200 [facility] [place] [address] Octavia Goins PA-C 200 [facility] [place] [place] [address] 03/04/2024 7:00 AM EDT Laboratory Lab Mobile Phlebotomy [facility] [address] [facility] [place] [address] Mvmg, Gml Mobile Home Draw [address] [facility] [place] [address] 04/01/2024 7:00 AM EST Laboratory Lab Mobile Phlebotomy [facility] [address] [facility] [place] [address] Mvmg, Gml Mobile Home Draw [address] [employer] [place] [address] 09/02/2024 8:20 AM EDT Office Visit Pulmonary Medicine, [facility] [address] [employer] [place] [address] Ish Caba MD [address] [facility] [place] [address] 05/03/2025 7:40 AM EST Office Visit Dermatology [address] [place] [address] Albina Romo PA-C [address] [place] [address] [place] [address] Scheduled Procedures Name Priority Associated Diagnoses Date/Ti [...] this encounter Medical Devices Implanted Type Area Ethologist Device Identifier Shelf Expiration Date Model / Serial / Lot Mesh Plug Xlarge [id number] - [id number] Implanted:Qty: 1 on 12/09/2020 by John Zaragoza MD at OR [facility] Left: Groin CR BARD : DAVOL 05/09/2023 [id number] / / [id number] documented as of this encounter Advance Directives [...] Power of Attor coco? No Care Teams Vertical Boring Mill Operator Relationship Specialty Start Date End Date Michael Collins MD [address] [place] [address] [place] [address] PCP - General Internal Medicine 03/01/14 documented as of this encounter
--- OUTSIDE RECORDS SUMMARY | 2024-03-26 16:37 | External Medical Summary ---
Author Name Unknown Address Unknown Organization K01:LAB[facility]ATORY [facility] [place] [address] [place] [address] Laboratory Report Ordering Provider Test Date Status KALPESH SERRANO 10/11/2023 11:30:00 Final Observation Date Value Abnormality Reference (Units ) Status BONE MARROW FOR FLOW CYTOMETRY 10/11/2023 11:30:00 No Final Performing Location LAB[facility]ATORY [facility] - [address] [place] [address]
--- OUTSIDE RECORDS SUMMARY | 2024-03-26 16:37 | External Medical Summary ---
Author Name Unknown Address Unknown Organization K01:LABORATORY [facility] [place] - [address] [place] [address] Laboratory Report Ordering Provider Test Date Status KALPESH SERRANO 10/11/2023 11:30:00 Final Observation Date Value Abnormality Reference (Units ) Status REFERENCE LAB SCANNED REPORT 10/11/2023 11:30:00 See Scanned Report Final Performing Location LAB[facility]ATORY [facility] - [address] [place] [address]
--- OUTSIDE RECORDS SUMMARY | 2024-03-26 16:37 | External Medical Summary ---
Author Name Unknown Address Unknown Organization : Laboratory Report Ordering Provider Test Date Status KALPESH SERRANO 10/11/2023 11:30:00 Final Observation Date Value Abnormality Reference (Units ) Status Performing Location
--- OUTSIDE RECORDS SUMMARY | 2024-03-26 16:38 | External Medical Summary ---
Author Name Unknown Address Unknown Organization K1F:LABORATORY [facility] - [address] [place] [address] Laboratory Report Ordering Provider Test Date Status KALPESH SERRANO 10/11/2023 09:07:59 Final weekly for first 8 weeks, th en monthly thereafter Observation Date Value Abnormality Reference (Units ) Status BUN 10/11/2023 09:07:59 21 Above high normal 6-20 (mg/dL) Final Creatinine 10/11/2023 09:07:59 1.0 0.6-1.2 (mg/dL) Final Glomerular filtration rate/1.73 sq M.predicted [Volume Rate/Area] in Serum, Plasma or Blood by Creatinine-based formula (CKD-EPI) 10/11/2023 09:07:59 89 >=60 (mL/min) Final eGFR is calculated based on the CKD-EPI 2020 equation Sodium 10/11/2023 09:07:59 141 135-146 (m mol/L) Final Potassium 10/11/2023 09:07:59 4.2 3.5-5.1 (m mol/L) Final Cl 10/11/2023 09:07:59 101 98-107 (mm ol/L) Final CO2 10/11/2023 09:07:59 28 22-32 (mmo l/L) Final Anion gap 10/11/2023 09:07:59 12 7-15 (mmol /L) Final Glucose 10/11/2023 09:07:59 111 70-120 (mg /dL) Final Albumin 10/11/2023 09:07:59 4.3 3.8-5.0 (g /dL) Final AST (Aspartate aminotransferase) 10/11/2023 09:07:59 26 10-50 (U/L) Final Alk Phos 10/11/2023 09:07:59 121 35-130 (U/ L) Final Bilirubin, Total 10/11/2023 09:07:59 0.4 <=1 .2 (mg/dL) Final Calcium 10/11/2023 09:07:59 9.4 8.4-10.2 ( mg/dL) Final Protein 10/11/2023 09:07:59 7.2 6.0-8.3 (g /dL) Final ALT (Alanine aminotransferase) 10/11/2023 09:07:59 24 10-50 (U/L) Final Performing Location LABORATORY [facility] - [facility] [address] [place] [address]
--- OUTSIDE RECORDS SUMMARY | 2024-03-26 16:38 | External Medical Summary ---
Author Name Unknown Address Unknown Organization K01:LABORATORY [facility] [place] - [address] [place] [address] Laboratory Report Ordering Provider Test Date Status KALPESH SERRANO 10/11/2023 11:30:00 Final Observation Date Value Abnormality Reference (Units ) Status REFERENCE LAB SCANNED REPORT 10/11/2023 11:30:00 See Scanned Report Final Performing Location LABORATORY [facility] - [address] [place] [address]
--- OUTSIDE RECORDS SUMMARY | 2024-03-26 16:38 | External Medical Summary ---
Author Name Unknown Address Unknown Organization : Laboratory Report Ordering Provider Test Date [facility] 10/11/2023 10:02:46 Final Observation Date Value Abnormality Reference (Units ) Status Glucose Point of Care 10/11/2023 10:02:46 112 70-120 (mg/dL) Final Performing Location
--- OUTSIDE RECORDS SUMMARY | 2024-03-26 16:38 | External Medical Summary ---
Author Name Unknown Address Unknown Organization K01:LABORATORY [facility] - [address] [place] [address] Laboratory Report Ordering Provider Test Date Status COLLINS RATLIFF 10/11/2023 09:00:00 Final Observation Date Value Abnormality Reference (Units) Status PARAPROTEIN NORMAL/ABNORMAL 10/11/2023 09:00:00 Abnormal Abnormal Normal Final Immunofixation for Serum or Plasma 10/11/2023 09:00:00 A monoclonal IgG kappa gammopathy is present. Final Immunofixation for Serum or Plasma 10/11/2023 09:00:00 Final Performing Location LABORATORY [facility] - [address] [place] [address]
--- OUTSIDE RECORDS SUMMARY | 2024-03-26 16:38 | External Medical Summary ---
Author Name Unknown Address Unknown Organization K1F:LABORATORY [facility] - [address] [facility] [place] [address] Laboratory Report Ordering Provider Test Date Status KALPESH SERRANO 10/11/2023 09:07:59 Final weekly for first 8 weeks, th en monthly thereafter Observation Date Value Abnormality Reference (Units ) Status SYNC LEUKOCYTES IN BLOOD BY AUTOMATED COUNT 10/11/2023 09:07:59 5.74 4.00-10.80 (K/uL) Final Segs 10/11/2023 09:07:59 65.0 40.0-75.0 (%) Final Lymphs % 10/11/2023 09:07:59 19.7 18.0-42.0 (%) Final Monos 10/11/2023 09:07:59 12.9 Above high normal 1.0-11.0 (%) Final Eosinophils 10/11/2023 09:07:59 1.9 0.0-6.0 (%) Final Basos 10/11/2023 09:07:59 0.3 0.0-2.0 (%) Final Immature Granulocyte, Percent 10/11/2023 09:07:59 0.2 0.0-2.0 (%) Final Absolute Segs 10/11/2023 09:07:59 3.73 1.80-7.70 (K/uL) Final Lymphs, absolute 10/11/2023 09:07:59 1.13 1.00-4.80 (K/ul) Final Monos, Abs 10/11/2023 09:07:59 0.74 0.00-1.10 (K/uL) Final Eos, Abs 10/11/2023 09:07:59 0.11 0.00-0.70 (K/uL) Final Basos, Abs 10/11/2023 09:07:59 0.02 0.00-0.20 (K/uL) Final Immature Granulocytes, Number 10/11/2023 09:07:59 0.01 0.00-0.20 (K/uL) Final Performing Location LABORATORY [facility] - [facility] [address] [place] [address]
--- OUTSIDE RECORDS SUMMARY | 2024-03-26 16:39 | External Medical Summary | Summary of Care ---
Author Name Unknown Organization [facility] Address [address] [facility] [place] [address] Phone [phone] Care Team Providers Care Abe Teacher Name Role Phone Michael Collins MD Primary Care Provi zehra Reason for Visit * Reason Onset Date Comments Outpatient Testing 10/08/2023 Encounter Details Date Type Department Care Team (Late st Contact Info) Description 10/08/2023 Telephone Hematology/Oncology Treatment, [place] [address] [place] [address] Morgan Vásquez MD 200 [place] [address] Outpatient Testing Allergies No known active allergiesdocumented as of this encounter (statuses as of 10/08/2023) Medications Medication Sig Dispensed Refills Start Date End Date Status THEOPHYLLINE ER 450 MG PO PO01Nlszapfhvaj:2 tablet at bedtime Take by mouth. Indications: [...] day . 30 g 2 03/01/2022 Active traMADol HCl 50 MG Oral Tablet (Ultram) Take by mouth. Active B Complex Formula 1 (Lipotrop) Oral Tablet Active Levalbuterol HCl 1.25 MG/3ML Inhalation Nebulization Solution (Xopenex) INHALE CONTENTS OF 1 VIAL (3ML) EVERY 6 HOURS 05/31/2022 Active oxygen IN GAS Administer 2 L/min(Oxygen) into nostril at bedtime. PATIENT INFORMATION: Kris Galvin [address] [place] [address] [email or web address]: [employer]/TBD ORDER: Please start nocturnal oxygen via nasal [...] signed) Ish Caba MD Pulmonary Medicine, [address] [place] [address] [place] [facility] Medical License Number: [id number] 1 Each 09/21/2022 Active Prochlorperazine Maleate 10 MG Oral Tablet (Compazine)Indicat ions:Multiple myeloma in remission (HCC) TAKE 1 TABLET BY MOUTH EVERY 6 HOURS NEEDED FOR NAUSEA 60 Tablet 5 01/08/2023 Active metFORMIN HCl ER (OSM) 500 MG Oral Tablet Extended Release 24 Hour 1 Tablet. 01/09/2023 Active oxyCODONE HCl 5 MG Oral Tablet (Oxy IR) TAKE 1 TAB BY MOUTH EVERY 6 HOURS NEEDED FOR PAIN Active Triamcinolone Acetonide 0.1 % External Cream (Aristocort) Apply 2x daily to rashes areas on trunk/arms/legs during winter time mostly. 454 g 04/29/2023 Active Ondansetron HCl 8 MG Oral Tablet (Zofran)Indication s:Multiple myeloma (HCC) TAKE 1 TABLET BY MOUTH EVERY 8 HOURS NEEDED FOR NAUSEA 90 Tablet 1 05/08/2023 Active Pregabalin 25 MG Oral Capsule (Lyrica) 1 tab am and 1 tab pm 60 Capsule 2 07/23/2023 Active Acyclovir 800 MG Oral Tablet (Zovirax)Indicatio ns:Multiple myeloma not having achieved remission (HCC),History of autologous stem cell transplant (HCC) TAKE 1 TABLET BY MOUTH TWICE A DAY 180 Tablet 3 09/16/2023 Active Amoxicillin-Pot Clavulanate 500-125 MG Oral Tablet (Augmentin) Take 1 Tablet by mouth in the morning and 1 Tablet at noon and 1 Tablet before bedtime. Active DULoxetine HCl 60 MG Oral Capsule [...] Darzalex injection. 35 Tablet 2 10/08/2023 Active Hospital, Clinic, or Other Facility Administered [...] as of this encounter (statuses as of 10/08/2023) Active Problems Problem Noted Date Diagnosed Date [...] as of this encounter (statuses as of 10/08/2023) Resolved Problems Problem Noted Date Diagnosed Date Resolved Date Asthma in remission 08/28/2022 08/29/19 Asthma, mild persistent 08/28/202208/11 Asthma, severe persistent 08/28/2022 Stem cell transplant candidate 08/17/2019 09/02/2019 documented as of this encounter (statuses as of 10/08/2023) Immunizations Name Administration Dates Next Due COVID-19 [...] Telephone Encounter - Eleanor Crawford RN - 10/08/2023 3:59 PM EDT Patient has active home phlebotomy referral, but no future appts. Home phlebotomy: please add future appts for patient- he will need next mobile lab appt 10/16/23, appt after that will be due 11/14/23 but ok to do 11/13/23 due to holiday. Thanks! documented in this encounter Plan of Treatment Upcoming Encounters Date Type Department Care Team (Late st Contact Info) Description 10/09/2023 1:30 PM EDT Pharmacy Pharmacy Hematology Oncology [facility] [place] [address] [place] [address] [facility] Hem/Onc [address] [place] [address] 10/11/2023 11:00 AM EDT Hospital Encounter OR [facility], Operating Room, [facility] - 4th Floor [address] [place] [address] [facility], In And Out Surgery [address] [place] [address] 10/11/2023 11:00 AM EDT Appointment Radiology, [facility] [address] [place] [address] 10/11/2023 11:00 AM EDT - 10/11/2023 12:00 PM EDT Surgery OR [facility], Operating Room, [facility] 4th Floor [address] [place] [address] [facility], In And Out Surgery [address] [place] [address] PRE / POST CARE 10/17/2023 8:30 AM EDT Hem/Onc Treatment Hematology/Oncology Treatment, [place] [address] [place] [phone] Kenyatta, Chair 7 Hem Onc Scenery [address] [place] [address] 11/08/2023 9:40 AM EDT Office Visit Rheumatology [address] [place] [phone] Darnell Higgins MD [address] [facility] [place], [place] [address] 11/15/2023 8:30 AM EDT [facility] 200 [facility], [place] [phone] Kenyatta, Chair 11 Hem On[address] [place] [address] 12/12/2023 11:15 AM EDT Office Visit Hematology/Oncology [facility] [address] [facility] [place] [phone] Morgan Vásquez MD 200 [facility] [place] [address] 12/12/2023 11:45 AM EDT Hem/Onc Treatment Hematology/Oncology [address], [place] [phone] 02/05/2024 8:40 AM EDT Office Visit Neurology [facility] 200 [facility] [place] [address] Octavia Goins PA-C [address] [place] [address] [place] [address] 09/02/2024 8:20 AM EDT Office Visit Pulmonary Medicine, [facility] 132 [facility] [address] Ish Caba MD [address] [place] [address] 05/03/2025 7:40 AM EST Office Visit Dermatology [address] [place] [phone] Albina Romo PA-C [address] [place] [address] [place] [address] Scheduled Procedures Name Priority Associated Diagnoses Date/Ti [...] this encounter Medical Devices Implanted Type Area Price Analyst Device Identifier Shelf Expiration Date Model / Serial / Lot Mesh Plug Xlarge [id number] - [id number] Implanted:Qty: 1 on 12/09/2020 by John Zaragoza MD at OR [facility] Left: Groin CR BARD : DAVOL 05/09/2023 [id number] / / [id number] documented as of this encounter Advance Directives [...] Power of Attor coco? No Care Teams Abe Teacher Relationship Specialty Start Date End Date Michael Collins MD [address] [place] [address] [place] [address] PCP - General Internal Medicine 03/01/14 documented as of this encounter
--- OUTSIDE RECORDS SUMMARY | 2024-03-26 16:39 | External Medical Summary | Summary of Care ---
Author Name Unknown Organization [facility] Address [address] [facility] [place] [address] Phone [phone] Care Team Providers Care Remedial Project Manager Name Role Phone Michael Collins MD Primary Care Provi zehra Encounter Details Date Type Department Care Team (Late st Contact Info) Description 10/08/2023 2:00 PM EDT Nurse Only Hematology/Oncology [facility] [place] [address] [place] [address] Kenyatta, Nurse Hem Onc [facility] [address] [place] [address] Arrived Allergies No known active allergiesdocumented as of this encounter (statuses as of 10/08/2023) Medications Medication Sig Dispensed Refills Start Date End Date Status THEOPHYLLINE ER 450 MG PO [id number]:2 tablet at bedtime Take by mouth. Indications: [...] day . 30 g 2 2 Active traMADol HCl 50 MG Oral Tablet (Ultram) Take by mouth. Active B Complex Formula 1 (Lipotrop) Oral Tablet Active Levalbuterol HCl 1.25 MG/3ML Inhalation Nebulization Solution (Xopenex) INHALE CONTENTS OF 1 VIAL (3ML) EVERY 6 HOURS 3 Active oxygen IN GAS Administer 2 L/min(Oxygen) into nostril at bedtime. PATIENT INFORMATION: Kris Galvin [address] [place] [address] [employer]: [employer]/TBD ORDER: Please start nocturnal oxygen via nasal [...] signed) Ish Caba MD Pulmonary Medicine, [address] [place] [address] [place] [facility] Medical License Number: [id number] 1 Each 3 Active Prochlorperazine Maleate 10 MG Oral Tablet (Compazine)Indica tions:Multiple myeloma in remission (HCC) TAKE 1 TABLET BY MOUTH EVERY 6 HOURS NEEDED FOR NAUSEA 60 Tablet 5 3 Active metFORMIN HCl ER (OSM) 500 MG Oral Tablet Extended Release 24 Hour 1 Tablet. 3 Active oxyCODONE HCl 5 MG Oral Tablet (Oxy IR) TAKE 1 TAB BY MOUTH EVERY 6 HOURS NEEDED FOR PAIN Active Triamcinolone Acetonide 0.1 % External Cream (Aristocort) Apply 2x daily to rashes areas on trunk/arms/legs during winter time mostly. 454 g 3 Active Ondansetron HCl 8 MG Oral Tablet (Zofran)Indicatio ns:Multiple myeloma (HCC) TAKE 1 TABLET BY MOUTH EVERY 8 HOURS NEEDED FOR NAUSEA 90 Tablet 1 3 Active Pregabalin 25 MG Oral Capsule (Lyrica) 1 tab am and 1 tab pm 60 Capsule 2 4 Active Acyclovir 800 MG Oral Tablet (Zovirax)Indicati ons:Multiple myeloma not having achieved remission (HCC),History of autologous stem cell transplant (HCC) TAKE 1 TABLET BY MOUTH TWICE A DAY 180 Tablet 3 4 Active Amoxicillin-Pot Clavulanate 500-125 MG Oral Tablet [...] 30 Tablet 3 3 10/08/19 24 Discontinued Hospital, Clinic, or Other Facility [...] mRNA, LNP-s, No Pre serve, 2-Dose Series (Bitmenu) 01/17/2021,08/05/2020,07/08/2020 COVID-19, LNP-s, No Preserve , Bryant-sucrose, [...] Nursing Notes * Eleanor Crawford RN - 10/08/2023 3:49 PM EDT Nurse education for pomalyst completed. documented in this encounter Plan of Treatment Upcoming Encounters Date Type Department Care Team (Late st Contact Info) Description 10/09/2023 1:30 PM EDT Pharmacy Pharmacy Hematology Oncology [facility] [address] [place] [address] [facility], [facility] Clinic Hem/Onc [address] [place] [address] 10/11/2023 11:00 AM EDT Hospital Encounter OR GL, Operating Room, [facility] - 4th Floor [address] [place] [address] [facility], In And Out Surgery [address] [place] [address] 10/11/2023 11:00 AM EDT Appointment Radiology, [address] [place] [address] 10/11/2023 11:00 AM EDT - 10/11/2023 12:00 PM EDT Surgery OR [facility], Operating Room, [facility] 4th Floor [address] [place] [address] [facility], In And Out Surgery [address] [place] [address] PRE / POST CARE 10/17/2023 8:30 AM EDT Hem/Onc Treatment Hematology/Oncology Treatment, [place] [address] [place] [address] Kenyatta, Chair 7 Hem Onc [address] [place] [address] 11/08/2023 9:40 AM EDT Office Visit Rheumatology [address] [place] [address] Darnell Higgins MD [address] [facility] [place], [place] [address] 11/15/2023 8:30 AM EDT Hem[facility] 200 [facility], [place] [phone] [place], Chair 11 Hem Onc [facility] 200 [facility] [place] [address] 12/12/2023 11:15 AM EDT Office Visit Hematology/Oncology [facility] [place] 200 [facility] [place] [phone] Morgan Vásquez MD 200 [facility] [place] [address] 12/12/2023 11:45 AM EDT Hem/Onc Treatment Hematology/Oncology [address], [place] [phone] 02/05/2024 8:40 AM EDT Office Visit Neurology [facility] 200 [facility] [place] [address] Octavia Goins PA-C [address] [place] [address] [place] [address] 09/02/2024 8:20 AM EDT Office Visit Pulmonary Medicine, [facility] 132 [facility] [place] [address] Ish Caba MD [address] [place] [phone] 05/03/2025 7:40 AM EST Office Visit Dermatology [address] [place] [address] Albina Romo PA-C [address] [place] [address] [place] [address] Scheduled Procedures Name Priority Associated Diagnoses Date/Ti [...] this encounter Medical Devices Implanted Type Area Corrective Therapy Aide Teacher Device Identifier Shelf Expiration Date Model / Serial / Lot Mesh Plug Xlarge [id number] - [id number] Implanted:Qty: 1 on 12/09/2020 by John Zaragoza MD at OR [facility] Left: Demond RIVAS BARD : DAVOL 05/09/2023 [id number] / / [id number] documented as of this encounter Advance Directives [...] Power of Attor coco? No Care Teams Remedial Project Manager Relationship Specialty Start Date End Date Michael Collins MD 141 [facility] [place] [address] PCP - General Internal Medicine 03/01/14 documented as of this encounter
--- OUTSIDE RECORDS SUMMARY | 2024-03-26 16:39 | External Medical Summary | Summary of Care ---
Author Name Unknown Organization [facility] Address [address] [place] [facility] [place] [place] [address] Phone [phone] Care Team Providers Care Medical Lab Scientist Name Role Phone Michael Collins MD Primary Care Provi zehra Reason for Visit * Reason Onset Date Comments Information 10/08/2023 Encounter Details Date Type Department Care Team (Late st Contact Info) Description 10/08/2023 Telephone Hematology/Oncology Treatment, [place] [address] [facility] [place] [address] Morgan Vásquez MD [address] [place] [address] Information Allergies No known active allergiesdocumented as of this encounter (statuses as of 10/08/2023) Medications Medication Sig Dispensed Refills Start Date End Date Status THEOPHYLLINE ER 450 MG PO [id number]:2 tablet at bedtime Take by mouth. Indications: [...] CAPS Take by mouth. Active Multiple Vitamins-Minerals ([facility] IMMUNITY SUPPORT) CHEW Take [...] nostril at bedtime. PATIENT INFORMATION: Kris Galvin [address] [place] [address] [employer]: [employer]/TBD ORDER: Please start nocturnal oxygen via nasal [...] signed) Ish Caba MD Pulmonary Medicine, [address] [place] [address] [place] [facility] Medical License Number: [id number] 1 Each 09/21/2022 Active Prochlorperazine Maleate 10 [...] Encounter - Eleanor Crawford RN - 10/08/2023 3:[address] Vásquez: "He is at high-risk for thrombotic complications while on treatment with pomalidomide, Decadron. Also heterozygous for Prothrombin gene mutation Would like to start Eliquis 2.5 mg twice a day. (e-prescribed)." Patient and agreeable to eliquis. States that they went to [facility] to pick this up, and had a very high copay for it, unable to afford this. PRC: are you able to assist patient with copay assistance for eliquis? Thanks! documented in this encounter Plan of Treatment Upcoming Encounters Date Type Department Care Team (Late st Contact Info) Description 10/09/2023 1:30 PM EDT Pharmacy Pharmacy Hematology Oncology [place] [address] [place] [address] [facility], [facility] Clinic Hem/Onc [facility] [place] [address] 10/11/2023 11:00 AM EDT Hospital Encounter OR [facility], Operating Room, [facility] - 4th Floor [address] [place] [address] [facility], In And Out Surgery [address] [place] [address] 10/11/2023 11:00 AM EDT Appointment Radiology, [facility] [address] [place] [address] 10/11/2023 11:00 AM EDT - 10/11/2023 12:00 PM EDT Surgery OR [facility], Operating Room, [facility] - 4th Floor [address] [place] [address] [facility], In And Out Surgery [address] [place] [address] PRE / POST CARE 10/17/2023 8:30 AM EDT Hem/Onc Treatment Hematology/Oncology Treatment, [place] [address] [place] [address] Kenyatta, Chair 7 Hem Onc [address] [place], [place] [address] 11/08/2023 9:40 AM EDT Office Visit Rheumatology [address] [place] [phone] Darnell Higgins MD 25[address] [facility] [place], [place] [address] 11/15/2023 8:30 AM EDT Hem[facility] 200 [facility], [place] [phone] Kenyatta, Chair 11 Hem Onc [facility] 200 [facility] [place] [address] 12/12/2023 11:15 AM EDT Office Visit Hematology/Oncology [facility] [place] 200 [facility] [place] [phone] Morgan Vásquez MD 200 [facility] [place], [place] [address] 12/12/2023 11:45 AM EDT Hem[facility]Onc [facility] 200 [facility], [place] [phone] 02/05/2024 8:40 AM EDT Office Visit Neurology [facility] [place] [address] [facility] [place] [address] Octavia Goins PA-C 200 [facility] [place] [address] 09/02/2024 8:20 AM EDT Office Visit Pulmonary Medicine, [facility] 132 [facility] [place] [address] Ish Caba MD [address] [place] [address] 05/03/2025 7:40 AM EST Office Visit Dermatology [address] [place] [address] Albina Romo PA-C [address] [place] [address] [place] [address] Scheduled Procedures Name Priority Associated Diagnoses Date/Ti [...] this encounter Medical Devices Implanted Type Area Employment Consultant Device Identifier Shelf Expiration Date Model / Serial / Lot Mesh Plug Xlarge [id number] - [id number] Implanted:Qty: 1 on 12/09/2020 by John Zaragoza MD at OR [facility] Left: Groin CR BARD : DAVOL 05/09/2023 [id number] / / [id number] documented as of this encounter Advance Directives [...] of Attor coco? No Care Teams Medical Lab Scientist Relationship Specialty Start Date End Date Michael Collins MD [address] [place] [address] [place] [address] PCP - General Internal Medicine 03/01/14 documented as of this encounter
--- OUTSIDE RECORDS SUMMARY | 2024-03-26 16:39 | External Medical Summary | Summary of Care ---
Author Name Unknown Organization [facility] Address [address] [place] [address] Phone [phone] Care Team Providers Care Airways Control Specialist Name Role Phone Michael Collins MD Primary Care Provi zehra Reason for Visit * Reason Comments Medication Management Encounter Details Date Type Department Care Team (Late st Contact Info) Description 10/09/2023 1:30 PM EDT Pharmacy Pharmacy Hematology Oncology [facility] [address] [place] [address] [facility], [facility] Clinic Hem/Onc [address] [place] [address] Multiple myeloma not having achieved remission (HCC)* Allergies No known active allergiesdocumented as of this encounter (statuses as of 10/09/2023) Medications Medication Sig Dispensed Refills Start Date End Date Status THEOPHYLLINE ER 450 MG PO [id number]:2 tablet at bedtime Take by mouth. Indications: [...] nostril at bedtime. PATIENT INFORMATION: Kris Galvin [address] [place] [address] [employer]: [employer]/TBD ORDER: Please start nocturnal oxygen via nasal [...] signed) Ish Caba MD Pulmonary Medicine, [address] [place] [address] [place] [facility] Medical License Number: [id number] 1 Each 09/21/2022 Active metFORMIN HCl ER [...] 7 days off. 21 Capsule 10/09/2023 Active Hospital, Clinic, or Other Facility Administered [...] as of this encounter (statuses as of 10/09/2023) Active Problems Problem Noted Date Diagnosed Date [...] as of this encounter (statuses as of 10/09/2023) Resolved Problems Problem Noted Date Diagnosed Date Resolved Date Asthma in remission 08/28/2022 08/29/19 Asthma, mild persistent 08/28/202208/11 Asthma, severe persistent 08/28/2022 Stem cell transplant candidate 08/17/2019 09/02/2019 documented as of this encounter (statuses as of 10/09/2023) Immunizations Name Administration Dates Next Due COVID-19 [...] Progress Notes * Radha Julian RPh - 10/09/2023 4:24 PM EDT Pomalidomide RX sent to [facility] to follow up in 2 days to assess RX status Radha Julian, PharmD, BCOP Clinical Pharmacist, [facility] Oral Chemotherapy [facility] 10/09/2023, 4:24 PM Time Spent on Encounter: 6 - 10 minutes Encounter Group: Hematology Encounter Interventions Item Category: Oral Chemotherapy Pomalidomide Problem/Rationale: [place] Plan Review: Clinical Review Pharmacist Intervention(s): Medication prescribed Magnitude of Intervention: Modification of medication for asymtomatic patients (Level 2) * Michelle Rangel CPhT - 10/09/2023 8:29 AM EDT MEDICATION THERAPY MANAGEMENT POMALIDOMIDE INITIAL INTAKE NOTE Kris [place] [phone] Patient Phone Numbers Communication: Chart review Treatment: Medication: Pomalidomide (Pomlayst) Indication/Staging/Diagnosis Code: IgG kappa multiple myeloma Dose: 4 mg daily for 21 of 28 days Administration: +/- food Start Date: TBD Primary Silk Printer/Oncologist: Dr. Mary Vásquez Additional Therapy: Darzalex monthly Dexamethansone 40 mg weekly Prophylactic Meds: Aspirin 81 mg daily Acyclovir Cycle Dates C1 TBD C2 TBD The Hematology/Oncology Oral Chemotherapy Clinic will assess medication compliance at each patient encounter Assessment and Plan: Per 10/01 OV: "Planning for pomalidomide 4 mg once a day for 3 weeks followed by 1 week off Decadron 40 mg once a week Will continue Darzalex Faspro every monthly as we planned since 2020. Planning to see him after the bone marrow evaluation is done.Will start new treatment after having bone marrow done. " Pt due for D1 of darzalex next on 10/17 - will attempt to coordinate D1 of pomalidomide based on IR biopsy Yes/no Date Action Taken [place] plan entered? Yes 10/02/23 Consent completed? Yes 10/02/23 Intro/med rec completed? Yes 10/03/23 Precert completed? Yes 10/03/23 Test claim completed? Yes 10/03/23 [facility] Financial assistance needed? Physician signature? Yes 10/03/23 Rx released? No [employer] auth # [id number] Education completed? [facility] will contact patient once med shipped/received to complete medication education Please refer to initial intake note for detailed review of regimen and patient- specific education points Michelle Rangel Entry Operator III Hematology Oncology Oral Chemotherapy Clinic Medication Therapy Disease Management [facility] 10/09/2023 4:08 PM Time Spent on Encounter: 6 - 10 minutes documented in this encounter Plan of Treatment Upcoming Encounters Date Type Department Care Team (Late st Contact Info) Description 10/11/2023 11:00 AM EDT Hospital Encounter OR [facility], Operating Room, [facility] Floor [address] [place] [address] [facility], In And Out Surgery [address] [place] [address] 10/11/2023 11:00 AM EDT Appointment Radiology, [facility] [address] [place] [address] 10/11/2023 11:00 AM EDT - 10/11/2023 12:00 PM EDT Surgery OR [facility], Operating Room, [address] Floor [address] [place] [address] [facility], In And Out Surgery [address] [place] [address] PRE / POST CARE 10/11/2023 1:15 PM EDT Pharmacy Pharmacy Hematology Oncology [facility] [address] [place] [address] [facility], [facility] Clinic Hem/Onc [address] [place] [address] 10/16/2023 7:00 AM EDT Laboratory Lab Mobile Phlebotomy [facility] [address] [place] [address] [facility], [facility] Draw 25[address] [facility] [place], [place] [address] 10/17/2023 8:30 AM EDT Hem/Onc Treatment Hematology/Oncology Treatment, [place] 200 [facility] [place] [phone] Kenyatta, Chair 7 Hem Onc [address] 200 [place] [address] 11/08/2023 9:40 AM EDT Office Visit [address] [place] [phone] Darnell Higgins MD [address] [employer] [place], [place] [address] 11/13/2023 7:00 AM EDT Laboratory Lab Mobile Phlebotomy [facility] [address] [place] [address] [facility], [facility] Draw [address] [facility] [place] [address] 11/15/2023 8:30 AM EDT Hem/Onc Treatment Hematology/Oncology Treatment, [place] 200 [facility] [place] [phone] Kenyatta, Chair 11 Hem Onc [address] 200 [place] [address] 12/11/2023 7:00 AM EDT Laboratory Lab Mobile Phlebotomy [facility] [address] [place] [address] [employer], [facility] Draw 25[address] [facility] [place], [place] [address] 12/12/2023 11:15 AM EDT Office Visit Hematology/Oncology [facility] Kenyatta [place] 200 [facility] [place], [place] [phone] Morgan Vásquez MD 200 [place] [address] 12/12/2023 11:45 AM EDT Hem/Onc Treatment Hematology/Oncology Treatment, [place] [facility] [phone] 01/08/2024 7:00 AM EDT Laboratory Lab Mobile Phlebotomy [facility] [address] [place] [address] [facility], [facility] Draw [address] [facility] [place] [address] 02/05/2024 7:00 AM EDT Laboratory Lab Mobile Phlebotomy [facility] [address] [place] [address] [employer], G[facility] Draw 25[address] [facility] [place] [address] 02/05/2024 8:40 AM EDT Office Visit Neurology [facility] 200 [facility] [place] [address] Octavia Goins PA-C 200 [facility] [place] [address] 03/04/2024 7:00 AM EDT Laboratory Lab Mobile Phlebotomy [facility] [address] [place] [address] [facility], [facility] Draw [address] [place], [place] [address] 04/01/2024 7:00 AM EST Laboratory Lab Mobile Phlebotomy [facility] [address] [employer] [place] [address] [facility], Gml Mobile Home Draw 25[address] [facility] [place], [place] [address] 09/02/2024 8:20 AM EDT Office Visit Pulmonary Medicine, [facility] [address] [facility] [place] [address] Ish Caba MD [address] [place] [address] 05/03/2025 7:40 AM EST Office Visit Dermatology [address] [place] [address] Albina Romo PA-C [address] [place] [address] [place] [address] Scheduled Procedures Name Priority Associated Diagnoses Date/Ti [...] this encounter Medical Devices Implanted Type Area Grainer Machine Device Identifier Shelf Expiration Date Model / Serial / Lot Mesh Plug Xlarge [id number] - [id number] Implanted:Qty: 1 on 12/09/2020 by John Zaragoza MD at OR [facility] Left: Groin CR BARD : DAVOL 05/09/2023 [id number] / / [id number] documented as of this encounter Visit Diagnoses Diagnosis Multiple myeloma not having achieved remission (HCC)- Primary Multiple myeloma, without mention of having achieved remission Multiple myeloma not having achieved remission (HCC) [...] Power of Attor coco? No Care Teams Airways Control Specialist Relationship Specialty Start Date End Date Michael Collins MD [address] [place] [address] [place] [address] PCP - General Internal Medicine 03/01/14 documented as of this encounter
--- OUTSIDE RECORDS SUMMARY | 2024-03-26 16:39 | External Medical Summary | Summary of Care ---
Author Name Unknown Organization [facility] Address [address] [place] [facility] [place] [place] [place] [address] Phone [phone] Care Team Providers Care Motion Picture Set Grip Name Role Phone Michael Collins MD Primary Care Provi zehra Reason for Visit * Reason Onset Date Comments Outpatient Testing 10/08/2023 Encounter Details Date Type Department Care Team (Late st Contact Info) Description 10/08/2023 Telephone Hematology/Oncology Treatment, [place] [address] [place] [address] Morgan Vásquez MD 200 [place] [address] Outpatient Testing Allergies No known active allergiesdocumented as of this encounter (statuses as of 10/09/2023) Medications Medication Sig Dispensed Refills Start Date End Date Status THEOPHYLLINE ER 450 MG PO [id number]:2 tablet at bedtime Take by mouth. Indications: [...] nostril at bedtime. PATIENT INFORMATION: Kris Galvin [address] [place] [address] [employer]: [employer]/TBD ORDER: Please start nocturnal oxygen via nasal [...] signed) Ish Caba MD Pulmonary Medicine, [address] [place] [address] [place] [facility] Medical License Number: [id number] 1 Each 09/21/2022 Active metFORMIN HCl ER [...] 07/23/2023 Active Acyclovir 800 MG Oral Tablet (Zovirax)Indicati [...] 09/30/2023 Active Apixaban 2.5 MG Oral Tablet (Eliquis)Indicati ons:Multiple myeloma not having achieved remission (HCC),Prothrombin gene mutation (HCC) Take 1 Tablet by mouth in the morning and 1 Tablet before bedtime. 30 Tablet 5 10/04/2023 Active dexAMETHasone 4 MG Oral Tablet (Decadron)Indicat [...] NEEDED FOR NAUSEA 60 Tablet 5 01/08/2023 4 Discontinu ed(Refill) Ondansetron HCl 8 MG Oral Tablet (Zofran)Indicatio ns:Multiple myeloma (HCC) TAKE 1 TABLET BY MOUTH EVERY 8 HOURS NEEDED FOR NAUSEA 90 Tablet 1 05/08/2023 4 Discontinu ed(Refill) Hospital, Clinic, or Other [...] mRNA, LNP-s, No Pre serve, 2-Dose Series (Veritract) 01/17/2021,08/05/2020,07/08/2020 COVID-19, LNP-s, No Preserve , Bryant-sucrose, [...] as of this encounter Miscellaneous Notes * Addendum Note - Ivana Crawford RN - 10/09/2023 3:23 PM EDTAddended by: IVANA CRAWFORD on: 10/09/2023 03:23 PM Modules accepted: Orders * Telephone Encounter - Ivana Crawford RN - 10/08/2023 3:59 PM EDT [...] 10/11/2023 11:00 AM EDT Hospital Encounter OR [facility], Operating Room, [facility] - 4th Floor [address] [place] [address] [facility], In And Out Surgery [address] [place] [address] 10/11/2023 11:00 AM EDT Appointment Radiology, [facility] [address] [place] [address] 10/11/2023 11:00 AM EDT - 10/11/2023 12:00 PM EDT Surgery OR [facility], Operating Room, [facility] - 4th Floor [address] [place] [address] [facility], In And Out Surgery [address] [place] [address] PRE / POST CARE 10/16/2023 7:00 AM EDT Laboratory Lab Mobile Phlebotomy [facility] [address] [place] [address] [facility], Gml Mobile Home Draw [address] [place] [address] 10/17/2023 8:30 AM EDT Hem/Onc Treatment Hematology/Oncology Treatment, [place] 200 [place] [phone] Park, Chair 7 Hem Onc Scenery 200 [place] [address] 11/08/2023 9:40 AM EDT Office Visit [address] [place] [phone] Darnell Higgins MD [address] [facility] [place], [place] [address] 11/13/2023 7:00 AM EDT Laboratory Lab Mobile Phlebotomy [facility] [address] [facility] [address] [place], [place] [address] M[facility], Gml Mobile Home Draw [facility]0 [facility] [place], [place] [address] 11/15/2023 8:30 AM EDT Hem/Onc Treatment Hematology/Oncology Treatment, [place] 200 [facility], [place] [phone] [place], Chair 11 Hem Onc Scenery 200 [place] [address] 12/11/2023 7:00 AM EDT Laboratory Lab Mobile Phlebotomy [facility] [address] [facility] [place], [place] [address] M[facility], Gml Mobile Home Draw 25[address] [facility] [place], [place] [address] 12/12/2023 11:15 AM EDT Office Visit Hematology/Oncology Scenery [place] 200 [facility] [place], [place] [phone] Morgan Vásquez MD 200 [facility] [place], [place] [address] 12/12/2023 11:45 AM EDT Hem/Onc Treatment [facility]ematology[facility] [place] [facility] [phone] 01/08/2024 7:00 AM EDT Laboratory Lab Mobile Phlebotomy [facility] [address] [employer] [place] [address] [facility], Gml Mobile Home Draw [address] [facility] [place] [address] 02/05/2024 7:00 AM EDT Laboratory Lab Mobile Phlebotomy [facility] [address] [facility] [place] [address] M[facility], Gml Mobile Home Draw 25[address] [facility] [place] [address] 02/05/2024 8:40 AM EDT Office Visit Neurology [facility] 200 [facility] [place] [address] Ocatvia Goins PA-C 200 [facility] [place] [address] 03/04/2024 7:00 AM EDT Laboratory Lab Mobile Phlebotomy [facility] [address] [employer] [place] [address] Mv[facility], Gml Mobile Home Draw 25[address] [place] [address] 04/01/2024 7:00 AM EST Laboratory Lab Mobile Phlebotomy [facility] [address] [facility] [place] [address] M[facility], Gml Mobile Home Draw 25[address] [facility] [place], [place] [address] 09/02/2024 8:20 AM EDT Office Visit Pulmonary Medicine, [facility] 132 [facility] [place] [address] Ish Caba MD [address] [place] [address] 05/03/2025 7:40 AM EST Office Visit Dermatology [address] [place] [address] Albina Romo, PA-C [address] [place] [address] [place] [address] Scheduled Orders Name Type Priority Associated Diagnoses Orde r Schedule SERUM FREE LIGHT CHAINS Lab STAT Multiple myeloma (HCC) Every Month for 13 Occurrences starting 10/09/2023 until 10/08/2024 SERUM PROTEIN ELECTROPHORESIS REFLEX PROFILE Lab STAT Multiple myeloma (HCC) Every Month for 13 Occurrences starting 10/09/2023 until 10/08/2024 IMMUNOGLOBULIN QUANTITATIVE Lab STAT Multiple myeloma ([facility]) Every Month for 13 Occurrences starting 10/09/2023 until 10/08/2024 Scheduled Procedures Name Priority Associated Diagnoses Date/Ti [...] this encounter Medical Devices Implanted Type Area Space Buyer Device Identifier Shelf Expiration Date Model / Serial / Lot Mesh Plug Xlarge [id number] - [id number] Implanted:Qty: 1 on 12/09/2020 by John Zaragoza MD at OR [facility] Left: Groin CR BARD : DAVOL 05/09/2023 [id number] / / [id number] documented as of this encounter Visit Diagnoses Diagnosis Multiple myeloma (HCC)- Primary Multiple myeloma, without mention of [...] Power of Attor coco? No Care Teams Motion Picture Set Grip Relationship Specialty Start Date End Date Michael Collins MD [address] [place] [address] [place] [address] PCP - General Internal Medicine 03/01/14 documented as of this encounter
--- OUTSIDE RECORDS SUMMARY | 2024-03-26 16:39 | External Medical Summary | Summary of Care ---
Author Name Unknown Organization [facility] Address [address] [facility] [place] [address] Phone [phone] Care Team Providers Care General Ledger Bookkeeper Name Role Phone Michael Collins MD Primary Care Provi zehra Encounter Details Date Type Department Care Team (Late st Contact Info) Description 10/08/2023 Telephone Hematology/Oncology [facility] [place] [address] [place] [address] Morgan Vásquez MD [address] [place] [address] Allergies No known active allergiesdocumented as of this encounter (statuses as of 10/08/2023) Medications Medication Sig Dispensed Refills Start Date End Date Status THEOPHYLLINE ER 450 MG PO [id number]:2 tablet at bedtime Take by mouth. Indications: [...] VIAL (3ML) EVERY 6 HOURS 05/31/2022 Active Ondansetron HCl 8 MG Oral Tablet (Zofran)Indication s:Multiple myeloma (HCC) TAKE 1 TABLET BY MOUTH EVERY 8 HOURS NEEDED FOR NAUSEA 30 Tablet 3 08/13/2022 Active oxygen IN GAS Administer 2 L/min(Oxygen) into nostril at bedtime. PATIENT INFORMATION: Kris Galvin [address] [place] [address] [employer] [place]: [employer]ok ORDER: Please start nocturnal oxygen via nasal [...] signed) Ish Caba MD Pulmonary Medicine, [address] [place] [address] [place] [facility] Medical License Number: [id number] 1 Each 09/21/2022 Active Prochlorperazine Maleate 10 [...] mRNA, LNP-s, No Pre serve, 2-Dose Series (Elastera) 01/17/2021,08/05/2020,07/08/2020 COVID-19, LNP-s, No Preserve , Bryant-sucrose, [...] Telephone Encounter - Orville Lopez RN - 10/08/2023 11:39 AM EDT Noted will discuss with patient at nurse education visit today. * Telephone Encounter - Marianne Ware LPN - 10/08/2023 11:34 AM EDT Morgan Vásquez MD at 10/04/23 9418 Status: Signed He is at high-risk for thrombotic complications while on treatment with pomalidomide, Decadron. Also heterozygous for Prothrombin gene mutation Would like to start Eliquis 2.5 mg twice a day. (e-prescribed). documented in this encounter Plan of Treatment Upcoming Encounters Date Type Department Care Team (Late st Contact Info) Description 10/08/2023 2:00 PM EDT Nurse Only Hematology/Oncology [facility] [place] [address] [place] [phone] [place] Nurse Hem Onc [facility] 200 [facility] [place] [address] 10/09/2023 1:30 PM EDT Pharmacy Pharmacy Hematology Oncology [facility] [address] [place] [address] [facility], [facility] Hem/Onc [address] [place] [address] 10/11/2023 11:00 AM EDT Hospital Encounter OR [facility], Operating Room, [facility] - 4th Floor [address] [address] [facility], In And Out Surgery [address] [place] [address] 10/11/2023 11:00 AM EDT Appointment Radiology, [facility] [address] [place] [address] 10/11/2023 11:00 AM EDT - 10/11/2023 12:00 PM EDT Surgery OR [facility], Operating Room, [facility] - 4th Floor [address] [address] [facility], In And Out Surgery [address] [place] [address] PRE / POST CARE 10/17/2023 8:30 AM EDT Hem/Onc Treatment [facility] 200 [facility] [place] [phone] Ken[place], Chair 7 Hem Onc [facility] 200 [facility] [place] [address] 11/08/2023 9:40 AM EDT Office Visit [address] [place] [address] Darnell Higgins MD [address] [place] [address] [place] [address] 11/15/2023 8:30 AM EDT Hem/Onc Treatment [facility]ology[facility] 200 [facility] [place] [phone] [place], Chair 11 Hem Onc [facility] 200 [facility] [place] [address] 12/12/2023 11:15 AM EDT Office Visit Hematology/Oncology [facility] [place] 200 [facility] [place] [phone] Morgan Vásquez MD 200 [facility] [place] [address] 12/12/2023 11:45 AM EDT Hem/Onc Treatment Hematology/Oncology Treatment, [place] 200 [facility] [place] [phone] 02/05/2024 8:40 AM EDT Office Visit Neurology [facility] [place] 200 [facility] [place] [address] Octavia Goins, PAYeimyC [address] [place] [address] 09/02/2024 8:20 AM EDT Office Visit Pulmonary Medicine, [facility] [address] [place] [address] Ish Caba MD [address] [facility] [place] [address] 05/03/2025 7:40 AM EST Office Visit Dermatology [address] [place] [address] Albina Romo PA-C [address] [place] [address] [place] [address] Scheduled Procedures Name Priority Associated Diagnoses Date/Ti [...] this encounter Medical Devices Implanted Type Area Mandrel Press Hand Device Identifier Shelf Expiration Date Model / Serial / Lot Mesh Plug Xlarge [id number] - [id number] Implanted:Qty: 1 on 12/09/2020 by John Zaragoza MD at OR [facility] Left: Groin CR BARD : DAVOL 05/09/2023 [id number] / / [id number] documented as of this encounter Advance Directives [...] Power of Attor coco? No Care Teams General Ledger Bookkeeper Relationship Specialty Start Date End Date Michael Collins MD [address] [place] [address] [place] [address] PCP - General Internal Medicine 03/01/14 documented as of this encounter
--- OUTSIDE RECORDS SUMMARY | 2024-03-26 16:39 | External Medical Summary | Summary of Care ---
Author Name Unknown Organization [facility] Address [address] [facility] [place] [address] Phone [phone] Care Team Providers Care Lab Aide Name Role Phone Michael Collins MD Primary Care Provi zehra Reason for Visit * Reason Onset Date Comments Medication Refill 10/08/2023 Encounter Details Date Type Department Care Team (Late st Contact Info) Description 10/08/2023 Refill Hematology/Oncology Treatment, [place] [address] [facility] [place] [address] Morgan Vásquez MD 200 [place] [address] Multiple myeloma (HCC); Multiple myeloma in remission (HCC) Allergies No known active allergiesdocumented as of this encounter (statuses as of 10/09/2023) Medications Medication Sig Dispensed Refills Start Date End Date Status THEOPHYLLINE ER 450 MG PO RI45Jabrrcrlghu: 2 tablet at bedtime Take by mouth. [...] Take by mouth. Active Multiple Vitamins-Mineral s ([facility]) CHEW Take [...] nostril at bedtime. PATIENT INFORMATION: Kris Galvin [address] [place] [address] [employer]: [employer]/TBD ORDER: Please start nocturnal oxygen via nasal [...] signed) Ish Caba MD Pulmonary Medicine, [address] [place] [address] [place] [facility] Medical License Number: [id number] 1 Each 3 Active metFORMIN HCl ER [...] 4 Active Apixaban 2.5 MG Oral Tablet (Eliquis)Indicat ions:Multiple [...] for Nausea. 60 Tablet 5 4 Active Ondansetron HCl 8 MG Oral Tablet (Zofran)Indicati ons:Multiple myeloma (HCC) TAKE 1 TABLET BY MOUTH EVERY 8 HOURS NEEDED FOR NAUSEA 30 Tablet 3 3 10/08/19 24 Discontinued Prochlorperazine Maleate 10 MG Oral Tablet (Compazine)Indic ations:Multiple myeloma in remission (HCC) TAKE 1 TABLET BY MOUTH EVERY 6 HOURS NEEDED FOR NAUSEA 60 Tablet 5 3 10/08/19 24 Discontinued(Re fill) Ondansetron HCl [...] mRNA, LNP-s, No Pre serve, 2-Dose Series (BetUknow) 01/17/2021,08/05/2020,07/08/2020 COVID-19, LNP-s, No Preserve , Bryant-sucrose, [...] Encounter - Eleanor Crawford RN - 10/08/2023 3:57 PM EDT Pended refills of zofran and compazine to [facility] documented in this encounter Plan of Treatment Upcoming Encounters Date Type Department Care Team (Late st Contact Info) Description 10/09/2023 1:30 PM EDT Pharmacy Pharmacy Hematology Oncology [facility] [address] [place] [address] [facility], [facility] Hem/Onc [address] [place] [address] 10/11/2023 11:00 AM EDT Hospital Encounter OR [facility], Operating Room, [facility] - 4th Floor [address] [place] [address] [facility], In And Out Surgery [address] [place] [address] 10/11/2023 11:00 AM EDT Appointment Radiology, [facility] [address] [place] [address] 10/11/2023 11:00 AM EDT - 10/11/2023 12:00 PM EDT Surgery [facility], Operating Room, [facility] - 4th Floor [address] [address] [facility], In And Out Surgery [address] [place] [address] PRE / POST CARE 10/16/2023 7:00 AM EDT Laboratory Lab Mobile Phlebotomy [facility] [address] [place] [address] [address] [address] [facility], Gml Mobile Home Draw [address] [place] [address] [address] 10/17/2023 8:30 AM EDT Hem/Onc Treatment Hematology/Oncology Treatment, [place] 200 [facility] [place], [place] [phone] [place], Chair 7 Hem Onc [facility] 200 [facility] [place] [address] 11/08/2023 9:40 AM EDT Office Visit Rheumatology [address] [place] [address] Darnell Higgins MD [address] [place] [address] [address] 11/13/2023 7:00 AM EDT Laboratory Lab Mobile Phlebotomy [facility] [address] [address] Mvmg, Gml Mobile Home Draw [address] [address] 11/15/2023 8:30 AM EDT Hem/Onc Treatment Hematology/Oncology Treatment, [place] 200 [facility] [place] [phone] Park, Chair 11 Hem Onc Scenery [address] [facility] [place] [address] 12/11/2023 7:00 AM EDT Laboratory Lab Mobile Phlebotomy [facility] [address] [address] Mvmg, Gml Mobile Home Draw [address] [address] 12/12/2023 11:15 AM EDT Office Visit Hematology/Oncology [facility] 200 [facility] [place], [place] [phone] Morgan Vásquez MD 200 [facility] [place], [place] [address] 12/12/2023 11:45 AM EDT Hem/Onc Treatment Hematology/Oncology Treatment, [place] 200 [facility], [place] [address] 01/08/2024 7:00 AM EDT Laboratory Lab Mobile Phlebotomy [facility] [address] [employer] [place] [address] Mvmg, Gml Mobile Home Draw [address] [employer] [place], [place] [address] 02/05/2024 7:00 AM EDT Laboratory Lab Mobile Phlebotomy [facility] [address] [employer] [place] [address] Mvmg, Gml Mobile Home Draw [address] [employer] [place], [place] [address] 02/05/2024 8:40 AM EDT Office Visit Neurology [facility] 200 [facility] [place], [place] [address] Octavia Goins PA-C 200 [facility] [place], [place] [address] 03/04/2024 7:00 AM EDT Laboratory Lab Mobile Phlebotomy [facility] [address] [employer] [place], [place] [address] Mvmg, Gml Mobile Home Draw [address] [employer] [place], [place] [address] 04/01/2024 7:00 AM EST Laboratory Lab Mobile Phlebotomy [facility] [address] [place], [place] [address] Mvmg, Gml Mobile Home Draw [address] [place] [address] 09/02/2024 8:20 AM EDT Office Visit Pulmonary Medicine, [facility] 132 [facility] [place] [address] Ish Caba MD [address] [facility] [place] [address] 05/03/2025 7:40 AM EST Office Visit Dermatology [address] [place] [address] Albina Romo PA-C [address] [place] [address] [place] [address] Scheduled Procedures Name Priority Associated Diagnoses Date/Ti [...] this encounter Medical Devices Implanted Type Area Design Engineer Device Identifier Shelf Expiration Date Model / Serial / Lot Mesh Plug Xlarge [id number] - [id number] Implanted:Qty: 1 on 12/09/2020 by John Zaragoza MD at OR [facility] Left: Demond RIVAS BARD : LUCINDA 05/09/2023 [id number] / / [id number] documented as of this encounter Visit Diagnoses Diagnosis Multiple myeloma (HCC) Multiple myeloma, without mention of having achieved remission Multiple myeloma in remission (HCC) Multiple myeloma in remission Multiple myeloma not having achieved remission [...] Power of Attor coco? No Care Teams Lab Aide Relationship Specialty Start Date End Date Michael Collins MD [address] [place] [address] [place] [address] PCP - General Internal Medicine 03/01/14 documented as of this encounter
--- OUTSIDE RECORDS SUMMARY | 2024-03-26 16:39 | External Medical Summary | Summary of Care ---
Author Name Unknown Organization [facility] Address [address] [facility] [facility] [address] Phone [phone] Care Team Providers Care Buying Agent Name Role Phone Michael Collins MD Primary Care Provi zehra Encounter Details Date Type Department Care Team (Late st Contact Info) Description 10/02/2023 Telephone Hematology/Oncology [facility] [place] [address] [place] [address] Morgan Vásquez MD [address] [place] [address] Allergies No known active allergiesdocumented as of this encounter (statuses as of 10/08/2023) Medications Medication Sig Dispensed Refills Start Date End Date Status THEOPHYLLINE ER 450 MG PO GC45Foyulpypjwl:2 tablet at bedtime Take by mouth. Indications: [...] nostril at bedtime. PATIENT INFORMATION: Kris Galvin [address] [place] [address] [employer]: Write.my/[employer] ORDER: Please start nocturnal oxygen via [...] signed) Ish Caba MD Pulmonary Medicine, [address] [place] [address] [place] [facility] Medical License Number: [id number] 1 Each 09/21/2022 Active Prochlorperazine Maleate 10 [...] before bedtime. 180 Capsule 1 09/30/2023 Active Dexamethasone 4 MG Oral Tablet (Decadron)Indicat ions:Multiple myeloma not having achieved remission (HCC) TAKE 1 TABLET BY MOUTH IN THE MORNING ON DAYS 2 AND 3 AFTER EACH DARZALEX TREATMENT 30 Tablet 2 05/25/2022 4 Discontinu ed(Refill) Hospital, Clinic, or Other [...] Encounter - Eleanor Crawford RN - 10/08/2023 3:31 PM EDT Referral entered, [facility]omalyst can come from [facility], patient aware. * Telephone Encounter - Orville Lopez RN - 10/02/2023 9:53 AM EDT Orders received for Pomalyst - routed to [facility] for review and [place] plan. -Chemo Consent: 10/02/23 -Chemo Education: 10/08/23 -- Pt to register with Krista this day as well. -Port Placement: N/A -Standing Lab orders placed: MTM to place -Medications Pended: MTM to place -Hep B Labs: 12/23/2020 documented in this encounter Plan of Treatment Upcoming Encounters Date Type Department Care Team (Late st Contact Info) Description 10/09/2023 1:30 PM EDT Pharmacy Pharmacy Hematology Oncology [facility] [address] [place] [address] [facility] Hem/Onc [address] [place] [address] 10/11/2023 11:00 AM EDT Hospital Encounter OR [facility], Operating Room, [facility] - 4th Floor [address] [place] [address] [facility], In And Out Surgery [address] [place] [address] 10/11/2023 11:00 AM EDT Appointment Radiology, [facility] [address] [place] [address] 10/11/2023 11:00 AM EDT - 10/11/2023 12:00 PM EDT Surgery OR [facility], Operating Room, [facility] - 4th Floor [address] [place] [address] [facility], In And Out Surgery [address] [place] [address] PRE / POST CARE 10/17/2023 8:30 AM EDT Hem/Onc Treatment Hematology/Oncology Treatment, [place] 200 [facility], [place] [phone] Kenyatta, Chair 7 Hem Onc Scenery 200 [facility] [place] [address] 11/08/2023 9:40 AM EDT Office Visit Rheumatology [address] [place] [phone] Darnell Higgins MD [facility] [place], [place] [address] 11/15/2023 8:30 AM EDT Hem/Onc Treatment Hematology/Oncology Treatment, [place] 200 [facility], [place] [phone] Kenyatta, Chair 11 Hem Onc [facility] 200 [facility] [place] [address] 12/12/2023 11:15 AM EDT Office Visit Hematology/Oncology [facility] 200 [facility] [place] [phone] Morgan Vásquez MD 200 [facility] [place], [place] [address] 12/12/2023 11:45 AM EDT Hem/Onc Treatment Hematology/Oncology Treatment, [place] 200 [facility], [place] [phone] 02/05/2024 8:40 AM EDT Office Visit Neurology [facility] [place] 200 [facility] [place] [address] Octavia Goins PA-C 200 [facility] [place] [address] 09/02/2024 8:20 AM EDT Office Visit Pulmonary Medicine, [facility] 132 [facility] [place] [phone] Ish Caba MD [address] [facility] [place] [address] 05/03/2025 7:40 AM EST Office Visit Dermatology [address] [place] [address] Albina Romo PA-C [address] [place] [address] [place] [address] Scheduled Procedures Name Priority Associated Diagnoses Date/Ti [...] this encounter Medical Devices Implanted Type Area Automation Technician Device Identifier Shelf Expiration Date Model / Serial / Lot Mesh Plug Xlarge [id number] - [id number] Implanted:Qty: 1 on 12/09/2020 by John Zaragoza MD at OR [facility] Left: Groin CR BARD : DAVOL 05/09/2023 [id number] / / [id number] documented as of this encounter Advance Directives [...] Power of Attor coco? No Care Teams Buying Agent Relationship Specialty Start Date End Date Michael Collins MD [address] [place] [address] [place] [address] PCP - General Internal Medicine 03/01/14 documented as of this encounter
--- OUTSIDE RECORDS SUMMARY | 2024-03-26 16:39 | External Medical Summary | Summary of Care ---
Author Name Unknown Organization [facility] Address [address] [facility] [place] [address] Phone [phone] Care Team Providers Care Lease Administrator Name Role Phone Michael Collins MD Primary Care Provi zehra Reason for Visit * Reason Onset Date Comments Precert Future 10/02/2023 pomalyst Encounter Details Date Type Department Care Team (Late st Contact Info) Description 10/02/2023 Telephone Hematology/Oncology [facility] [place] 200 [facility] [place] [phone] Morgan Vásquez MD 200 [facility] [address] Precert Future (pomalyst) Allergies No known active allergiesdocumented as of this encounter (statuses as of 10/09/2023) Medications Medication Sig Dispensed Refills Start Date End Date Status THEOPHYLLINE ER 450 MG PO [id number]: 2 tablet at bedtime Take by mouth. [...] Take by mouth. Active Multiple Vitamins-Mineral s ([facility]) CHEW Take [...] nostril at bedtime. PATIENT INFORMATION: Kris Galvin [address] [place] [address] [employer]: Docin/TBD ORDER: Please start nocturnal oxygen via nasal [...] signed) Ish Caba MD Pulmonary Medicine, [address] [place] [address] E[place] [facility] Medical License Number: [id number] 1 Each 3 Active metFORMIN HCl ER [...] before bedtime. 180 Capsule 1 4 Active Dexamethasone 4 MG Oral Tablet (Decadron)Indica tions:Multiple [...] mRNA, LNP-s, No Pre serve, 2-Dose Series ([employer]) 01/17/2021,08/05/2020,07/08/2020 COVID-19, LNP-s, No Preserve , Bryant-sucrose, [...] Telephone Encounter - Eleanor Crawford RN - 10/09/2023 2:53 PM EDT Patient not registered with pomalyst [facility]. Called [employer] [facility] and spoke to Ashley- issue is ID number is different than ID number used for revlimid in the past. Advised her that we want to use new ID number. She placed me on hold to update profile. Prescriber survey complete, auth # [id number] MTM: FYI * Telephone Encounter - Eleanor Crawford RN - 10/08/2023 3:31 PM EDT Referral entered, [facility]st [facility] come from [facility], patient aware. * Telephone Encounter - Orville Lopez, JOHANN - 10/02/2023 9:53 AM EDT Orders received for Pomalyst - routed to [facility] for review and [place] plan. -Chemo Consent: 10/02/23 -Chemo Education: 10/08/23 -- Pt to register with [facility] this day as well. -Port Placement: N/A -Standing Lab orders placed: MTM to place -Medications Pended: MTM to place -Hep B Labs: 12/23/2020 documented in this encounter Plan of Treatment Upcoming Encounters Date Type Department Care Team (Late st Contact Info) Description 10/11/2023 11:00 AM EDT Hospital Encounter OR [facility], Operating Room, [facility] - 4th Floor [address] [place] [address] [address] [facility], In And Out Surgery [address] [place] [address] 10/11/2023 11:00 AM EDT Appointment Radiology, [facility] [address] [place] [address] 10/11/2023 11:00 AM EDT - 10/11/2023 12:00 PM EDT Surgery OR [facility], Operating Room, [facility] - 4th Floor [address] [address] [facility], In And Out Surgery [address] [address] PRE / POST CARE 10/16/2023 7:00 AM EDT Laboratory Lab Mobile Phlebotomy [facility] [address] [facility] [place] [address] [facility], [facility] Draw [address] [place] [address] 10/17/2023 8:30 AM EDT Hem/Onc Treatment Hematology/Oncology Treatment, [place] [address] [facility] [place] [phone] Kenyatta, Chair 7 Hem Onc Scenery 200 [facility] [place] [address] 11/08/2023 9:40 AM EDT Office Visit Rheumatology [address] [place] [phone] Darnell Higgins MD [address] [place] [address] 11/13/2023 7:00 AM EDT Laboratory Lab Mobile Phlebotomy [facility] [address] [place] [address] [address] [facility] [address] [place] [address] 11/15/2023 8:30 AM EDT Hem/Onc Treatment Hematology/Oncology Treatment, [place] 200 [facility] [place] [address] Kenyatta, Chair 11 Hem Onc Scenery [address] [place] [address] 12/11/2023 7:00 AM EDT Laboratory Lab Mobile Phlebotomy [facility] [address] [address] [facility], [facility] [address] [place], [place] [address] 12/12/2023 11:15 AM EDT Office Visit Hematology/Oncology [facility] 200 [facility] [place], [place] [phone] Morgan Vásquez MD 200 [facility] [place], [place] [address] 12/12/2023 11:45 AM EDT Hem/Onc Treatment Hematology/Oncology Treatment, [place] 200 [facility], [place] [phone] 01/08/2024 7:00 AM EDT Laboratory Lab Mobile Phlebotomy [facility] [address] [address] [facility], [facility] Draw [address] [place], [place] [address] 02/05/2024 7:00 AM EDT Laboratory Lab Mobile Phlebotomy [facility] [address] [employer], [place] [address] [facility], Gml [facility] Draw [address], [place] [address] 02/05/2024 8:40 AM EDT Office Visit Neurology [facility] 200 [facility] [place], [place] [address] Octavia Goins PA-C 200 [facility] [place] [address] 03/04/2024 7:00 AM EDT Laboratory Lab Mobile Phlebotomy [facility] [address], [place] [address] [facility], [facility] [address], [place] [address] 04/01/2024 7:00 AM EST Laboratory Lab Mobile Phlebotomy [facility] [address], [place] [address] [facility], Gml [facility] Draw [address] [place] [address] [address] 09/02/2024 8:20 AM EDT Office Visit Pulmonary Medicine, [facility] [address] [place] [address] Ish Caba MD [address] [place] [address] 05/03/2025 7:40 AM EST Office Visit Dermatology [address] [place] [address] Albina Romo PA-C [address] [place] [address] [place] [address] Scheduled Procedures Name Priority Associated Diagnoses Date/Ti [...] encounter Medical Devices Implanted Type Area Medical Clinic Manager Device Identifier Shelf Expiration Date Model / Serial / Lot Mesh Plug Xlarge [id number] - [id number] Implanted:Qty: 1 on 12/09/2020 by John Zaragoza MD at OR [facility] Left: Pamin ROB BARD : DAVOL 05/09/2023 [id number] / / [id number] documented as of this encounter Advance Directives [...] Power of Attor coco? No Care Teams Lease Administrator Relationship Specialty Start Date End Date Michael Collins MD [address] [place] [address] [place] [address] PCP - General Internal Medicine 03/01/14 documented as of this encounter
--- OUTSIDE RECORDS SUMMARY | 2024-03-26 16:40 | External Medical Summary | Summary of Care ---
Author Name Unknown Organization [facility] Address [address] [place] [address] Phone [phone] Care Team Providers Care Corporate Law Specialist Name Role Phone Michael Collins MD Primary Care Provi zehra Reason for Visit * Reason Comments Medication Management Encounter Details Date Type Department Care Team (Late st Contact Info) Description 10/03/2023 1:15 PM EDT Pharmacy Pharmacy Hematology Oncology [facility] [address] [place] [address] [facility] Hem/Onc [address] [place] [address] Multiple myeloma not having achieved remission (HCC)* Allergies No known active allergiesdocumented as of this encounter (statuses as of 10/03/2023) Medications Medication Sig Dispensed Refills Start Date End Date Status THEOPHYLLINE ER 450 MG PO [id number]:2 tablet at bedtime Take by mouth. Indications: [...] Complex Formula 1 (Lipotrop) Oral Tablet Active Dexamethasone 4 MG Oral Tablet (Decadron)Indicati ons:Multiple myeloma not having achieved remission (HCC) TAKE 1 TABLET BY MOUTH IN THE MORNING ON DAYS 2 AND 3 AFTER EACH DARZALEX TREATMENT 30 Tablet 2 05/25/2022 Active Levalbuterol HCl 1.25 MG/3ML Inhalation Nebulization Solution (Xopenex) INHALE CONTENTS OF 1 VIAL (3ML) EVERY 6 HOURS 05/31/2022 Active Ondansetron HCl 8 MG Oral Tablet (Zofran)Indication s:Multiple myeloma (HCC) TAKE 1 TABLET BY MOUTH EVERY 8 HOURS NEEDED FOR NAUSEA 30 Tablet 3 08/13/2022 Active oxygen IN GAS Administer 2 L/min(Oxygen) into nostril at bedtime. PATIENT INFORMATION: Kris Galvin [address] [place] [address] [employer]: [employer] ORDER: Please start nocturnal oxygen via nasal [...] signed) Ish Caba MD Pulmonary Medicine, [address] [place] [address] E[place] [facility] Medical License Number: [id number] 1 Each 09/21/2022 Active Prochlorperazine Maleate 10 [...] before bedtime. 180 Capsule 1 09/30/2023 Active Hospital, Clinic, or Other Facility Administered [...] as of this encounter (statuses as of 10/03/2023) Active Problems Problem Noted Date Diagnosed Date [...] as of this encounter (statuses as of 10/03/2023) Resolved Problems Problem Noted Date Diagnosed Date Resolved Date Asthma in remission 08/28/2022 08/29/19 Asthma, mild persistent 08/28/202208/11 Asthma, severe persistent 08/28/2022 Stem cell transplant candidate 08/17/2019 09/02/2019 documented as of this encounter (statuses as of 10/03/2023) Immunizations Name Administration Dates Next Due COVID-19 [...] as of this encounter Progress Notes * Pastora Dodson, genetic coordinator - 10/03/2023 11:04 AM EDT NEW REFERRAL TO ORAL CHEMO CLINIC/MEDICATION RECONCILIATION NOTE Kris Galvin [phone] Patient Phone Numbers Communication: Spoke to: Patient and TANIA shore sent via [employer] Treatment: Medication: Pomalidomide (Pomlayst) Indication/Staging/Diagnosis Code: IgG kappa multiple myeloma Dose: 4 mg daily for 21 of 28 days Administration: +/- food Start Date: TBD Primary Hotel Director/Oncologist: Dr. Mary Vásquez Provider has consented patient: Yes Patient was introduced to Oral Chemotherapy Clinic: OCC is a free service for patients receiving oral chemo therapy. We are Pharmacists & Pharmacy Technicians, who are a part of hematology & oncology care across the [facility] system offering telephone based appointments from the comfort of your own home. Pharmacists are available Saturday-Saturday from 8am - 4:30pm. After 4:30pm, non- urgent messages can be left on the pharmacist voicemail, and urgent calls/questions/concerns should be directed to their oncologist office directly. In case of an emergency, patient is aware to call 911 or travel to nearest emergency department. Communicated to patient: Pharmacists will provide education about your medication, manage oral chemotherapy side effects & review labs. All information will be shared & available to your oncologist. Explained to patient: once they decide on a treatment with their Oncologist, a Pharmacist will review the treatment plan to ensure correct dosing, review labs & medications to prevent any interactions. Medication authorization is submitted to your insurance. Once approved, your Rx will be sent to the Pharmacy determined by your insurance plan. Specialty Pharmacy will contact you to arrange delivery & discuss co-payment and any assistance options, if required. A Pharmacist will contact you to provide medication education, follow up periodically to review lab results & to assess/manage side effects. Patient was reassured the process to obtain medication can take several days-weeks. - pending Patient was informed that hepatitis B screening must be completed prior to initiation of treatment.completed Patient has given verbal consent that staff from the Oral Chemotherapy Clinic can speak to Reece Frances regarding their treatment. Patient has given verbal consent that staff from the Oral Chemotherapy Clinic can leave a voicemailwith treatment-related information: Yes This information can be left on Cell Performed medication reconciliation with patient; pharmacist will be in touch if there are any druginteractions with oral chemo. Patient voiced understanding on all accounts. IVELISSE [facility] [employer] [facility] [place] Hematology Oncology Oral Chemotherapy Clinic Medication Therapy Disease Management [facility] 10/03/23,12:57 PM Time Spent on Encounter: 11 - 15 minutes Encounter Group: Hematology Encounter Interventions Item Category: Oral Chemotherapy Pomalidomide Problem/Rationale: Safety: Needs additional monitoring - Medication Requires monitoring Pharmacist Intervention(s): Medication reconciliation Magnitude of Intervention: Monitoring with no interventions (Level 0) documented in this encounter Plan of Treatment Upcoming Encounters Date Type Department Care Team (Late st Contact Info) Description 10/08/2023 2:00 PM EDT Nurse Only Hematology/Oncology [facility] [place] [address] [place] [phone] [place], Nurse Hem Onc Scenery [address] [place] [address] 10/09/2023 1:30 PM EDT Pharmacy Pharmacy Hematology Oncology [facility] [address] [place] [address] [facility] Hem/Onc [address] [place] [address] 10/11/2023 11:00 AM EDT Hospital Encounter OR [facility], Operating Room, [facility] - 4th Floor [address] [place] [address] [address] [facility], In And Out Surgery [address] [place] [address] [address] 10/11/2023 11:00 AM EDT Appointment Radiology, [facility] [address] [place] [address] 10/11/2023 11:00 AM EDT - 10/11/2023 12:00 PM EDT Surgery OR [facility], Operating Room, [facility] - 4th Floor [address] [place] [address] [address] [facility], In And Out Surgery [address] [place] [address] PRE / POST CARE 10/17/2023 8:30 AM EDT Hem/Onc Treatment Hematology/Oncology Treatment, [place] 200 [facility] [place] [phone] Kenyatta, Chair 7 Hem Onc [facility] 200 [facility] [place] [address] 11/08/2023 9:40 AM EDT Office Visit Rheumatology [address] [place] [phone] Darnell Higgins MD [address] [place] [address] [place] [address] 11/15/2023 8:30 AM EDT Hem/Onc Treatment Hematology/Oncology Treatment, [place] 200 [facility] [place] [phone] Kenyatta, Chair 11 Hem Onc [facility] 200 [facility] [place] [address] 12/12/2023 11:15 AM EDT Office Visit Hematology/Oncology [facility] [place] 200 [facility] [place] [phone] Morgan Vásquez MD 200 [facility] [place] [address] 12/12/2023 11:45 AM EDT Hem/Onc Treatment Hematology/Oncology Treatment, [place] [address] [place] [phone] 02/05/2024 8:40 AM EDT Office Visit Neurology [facility] [employer] 200 [facility] [place] [address] Octavia Goins PA-C 200 [facility] [place] [address] 09/02/2024 8:20 AM EDT Office Visit Pulmonary Medicine, [facility] 132 [facility] [place] [address] Ish Caba MD [address] [place] [address] 05/03/2025 7:40 AM EST Office Visit Dermatology [address] [place] [address] Albina Romo PA-C [address] [place] [address] [place] [address] Scheduled Procedures Name Priority Associated Diagnoses Date/Ti [...] this encounter Medical Devices Implanted Type Area Rehab Assistant Device Identifier Shelf Expiration Date Model / Serial / Lot Mesh Plug Xlarge [id number] - [id number] Implanted:Qty: 1 on 12/09/2020 by John Zaragoza MD at OR [facility] Left: Demond RIVAS BARD : LUCINDA 05/09/2023 [id number] / / [id number] documented as of this encounter Visit Diagnoses [...] Power of Attor coco? No Care Teams Corporate Law Specialist Relationship Specialty Start Date End Date Michael Collins MD [address] [place] [address] [place] [address] PCP - General Internal Medicine 03/01/14 documented as of this encounter
--- OUTSIDE RECORDS SUMMARY | 2024-03-26 16:40 | External Medical Summary | Summary of Care ---
Author Name Unknown Organization [facility] Address [address] [facility] [place] [address] Phone [phone] Care Team Providers Care Transmission Technician Name Role Phone Michael Collins MD Primary Care Provi zehra Reason for Visit * Reason Onset Date Comments Scheduling 10/02/2023 CT bone marrow b iopsy Encounter Details Date Type Department Care Team (Late st Contact Info) Description 10/02/2023 Telephone Hematology/Oncology [facility] [place] 200 [facility] [place] [phone] Morgan Vásquez MD 200 [facility] [address] Scheduling (CT bone marrow biopsy) Allergies No known active allergiesdocumented as of this encounter (statuses as of 10/03/2023) Medications Medication Sig Dispensed Refills Start Date End Date Status THEOPHYLLINE ER 450 MG PO SZ82Gaqfuzbnyij:2 tablet at bedtime Take by mouth. Indications: [...] nostril at bedtime. PATIENT INFORMATION: Kris Galvin [address] [place] [address] DURABLE MEDICAL EQUIPMENT COMPANY: [email or web address] ORDER: Please start nocturnal oxygen via nasal [...] signed) Ish Caba MD Pulmonary Medicine, [address] [place] [address] [place] [facility] Medical License Number: [id number] 1 Each 09/21/2022 Active Prochlorperazine Maleate 10 [...] encounter Miscellaneous Notes * Addendum Note - Fernanda Bowman RN - 10/03/2023 10:22 AM EDTAddended by: FERNANDA BOWMAN on: 10/03/2023 10:22 AM Modules accepted: Orders * Telephone Encounter - Fernanda Bowman RN - 10/03/2023 10:12 AM EDT Patient's called to ask questions about patient's bone marrow biopsy scheduled on 10/11/23 @ 1100. Patient identified by: name and date of Person taught: Yvrose METHOD: Lecture-telephone interview PATIENT INSTRUCTIONS GIVEN: - Medication Instructions Reviewed: Do not take Metformin morning of procedure. May take all other medications as usual. - NPO Instructions Reviewed, pt to stop eating 8 hours prior to procedure and stop drinking 2 hoursprior to procedure. -Yard Hostler required Location and check-in instructions - Obtain blood work as ordered: CBC with WBC diff 30 mins before reporting time . Order placed. Verbalizes understanding of education: Yes Procedure date at time of Imaging Encounter: 10/11/23 Does the patient have a yellow bar? did not The Family member was given the opportunity to ask questions concerning the procedure. Signature: Fernanda Bowman RN 10/03/2023 * Telephone Encounter - Court Herrera OSA - 10/02/2023 1:14 PM EDT IR BIOPSY [IRBIOPSY] (Order [id number]) Multiple myeloma not having achieved remission (HCC) [C90.00] - Primary documented in this encounter Plan of Treatment Upcoming Encounters Date Type Department Care Team (Late st Contact Info) Description 10/03/2023 1:15 PM EDT Pharmacy Pharmacy Hematology Oncology [place] [address] [place] [address] [facility] Hem/Onc [facility] [address] 10/08/2023 2:00 PM EDT Nurse Only Hematology/Oncology [place] Zahraa You [address] [place] [phone] Kenyatta, Nurse Hem Onc Scenery [address] [place] [address] 10/09/2023 1:30 PM EDT Pharmacy Pharmacy Hematology Oncology [address] [address] [facility], [facility] Hem/Onc [address] [place] [address] 10/11/2023 11:00 AM EDT Appointment Radiology, [address] [address] 10/17/2023 8:30 AM EDT Hem/Onc Treatment Hematology/Oncology Treatment, [place] 200 [facility] [place], [place] [phone] Kenyatta, Chair 7 Hem Onc Scenery 200 [facility] [place] [address] 11/08/2023 9:40 AM EDT Office Visit [address] [place] [phone] Darnell Higgins MD [address] [place] [address] Dr [place], [place] [address] 11/15/2023 8:30 AM EDT Hem/Onc Treatment Hematology/Oncology Treatment, [place] 200 [facility] [place] [phone] Kenyatta, Chair 11 Hem Onc Scenery [address] [place] [address] 12/12/2023 11:15 AM EDT Office Visit Hematology/Oncology [place] Zahraa You [address] [place] [phone] Morgan Vásquez MD [address] [place] [address] 12/12/2023 11:45 AM EDT Hem/Onc Treatment Hematology/Oncology Treatment, [place] 200 [facility] [phone] 02/05/2024 8:40 AM EDT Office Visit Neurology [facility] 200 [facility] [place] [address] Octavia Goins PA-C 200 [facility] [place] [address] 09/02/2024 8:20 AM EDT Office Visit Pulmonary Medicine, [facility] 132 [facility] [place] [address] Ish Caba MD [address] [facility] [place] [address] 05/03/2025 7:40 AM EST Office Visit Dermatology [address] [place] [address] Albina Romo PA-C [address] [place] [address] [place] [address] Scheduled Orders Name Type Priority Associated Diagnoses Orde r Schedule CBC WITH WBC DIFFERENTIAL Lab Routine Multiple myeloma not having achieved remission (HCC) Expected: 10/03/2023, Expires: 10/02/2024 Health Maintenance Due Date Last Done Comments [...] this encounter Medical Devices Implanted Type Area Plate Take Out Worker Device Identifier Shelf Expiration Date Model / Serial / Lot Mesh Plug Xlarge [id number] - [id number] Implanted:Qty: 1 on 12/09/2020 by John Zaragoza MD at OR [facility] Left: Demond RIVAS BARD : DAVOL 05/09/2023 [id number] / / [id number] documented as of this encounter Visit Diagnoses Diagnosis Multiple myeloma in remission (HCC)- Primary Multiple myeloma in remission Multiple myeloma not [...] of Attor coco? No Care Teams Transmission Technician Relationship Specialty Start Date End Date Michael Collins MD 141 [facility] [place] [address] PCP - General Internal Medicine 03/01/14 documented as of this encounter
--- OUTSIDE RECORDS SUMMARY | 2024-03-26 16:40 | External Medical Summary | Summary of Care ---
Author Name Unknown Organization [facility] Address [address] [facility] [place] [address] Phone [phone] Care Team Providers Care Senior Computer Specialist Name Role Phone [place] Collins MD Primary Care Provi zehra Reason for Visit * Reason Onset Date Comments Medication Refill 10/08/2023 Encounter Details Date Type Department Care Team (Late st Contact Info) Description 10/08/2023 Refill Hematology/Oncology [facility] [place] 200 [facility] [place] [phone] Morgan V[facility]quez MD 200 [facility] [address] Multiple myeloma not having achieved remission (HCC) Allergies No known active allergiesdocumented as of this encounter (statuses as of 10/08/2023) Medications Medication Sig Dispensed Refills Start Date End Date Status THEOPHYLLINE ER 450 MG PO BW96Pkgdovftjuu:2 tablet at bedtime Take by mouth. Indications: [...] CAPS Take by mouth. Active Multiple Vitamins-Minerals ([facility] IMMUNITY SUPPORT) CHEW Take by [...] nostril at bedtime. PATIENT INFORMATION: Kris Galvin [address] [place] [address] [employer]: [employer]/TBD ORDER: Please start nocturnal oxygen via nasal [...] signed) Ish Caba MD Pulmonary Medicine, [address] [place] [address] [place] [facility] Medical License Number: [id number] 1 Each 09/21/2022 Active Prochlorperazine Maleate 10 [...] Darzalex injection. 35 Tablet 2 10/08/2023 Active Dexamethasone 4 MG Oral Tablet (Decadron)Indicat [...] mRNA, LNP-s, No Pre serve, 2-Dose Series (edenes) 01/17/2021,08/05/2020,07/08/2020 COVID-19, LNP-s, No Preserve , Bryant-sucrose, [...] Telephone Encounter - Morgan Vásquez MD - 10/08/2023 9:05 AM EDT E-prescribed Morgan Vásquez MD Hem/Onc * Telephone Encounter - Orville Lopez RN - 10/08/2023 8:27 AM EDT Pended Decadron script in anticipation of starting Polmalyst + Darzalex. documented in this encounter Plan of Treatment Upcoming Encounters Date Type Department Care Team (Late st Contact Info) Description 10/08/2023 2:00 PM EDT Nurse Only Hematology/Oncology [facility] [place] Zahraa You [address] [place] [phone] Kenyatta, Nurse Hem Onc Scenery [address] [place] [address] 10/09/2023 1:30 PM EDT Pharmacy Pharmacy Hematology Oncology [facility] [address] [facility], [facility] Hem[facility]c [facility] [address] 10/11/2023 11:00 AM EDT Hospital Encounter OR GL, Operating Room, [facility] - 4th Floor [address] [place] [address] [facility], In And Out Surgery 400 [place] [address] 10/11/2023 11:00 AM EDT Appointment Radiology, [facility] 400 [place] [address] 10/11/2023 11:00 AM EDT - 10/11/2023 12:00 PM EDT Surgery OR [facility], Operating Room, [facility] - 4th Floor 400 [place] [address] [facility], In And Out Surgery 400 [place] [address] PRE / POST CARE 10/17/2023 8:30 AM EDT Hem/Onc Treatment [place] 200 [facility] [place] [phone] Kenyatta, Chair 7 Hem Onc [facility] 200 [facility] [place] [address] 11/08/2023 9:40 AM EDT Office Visit [address] [place] [address] Darnell Higgins MD [facility] [place] [address] 11/15/2023 8:30 AM EDT Hem/Onc Treatment [place]ology[place]cology [place] 200 [facility] [place] [phone] Kenyatta, Chair 11 Hem Onc [facility] 200 [facility] [place] [address] 12/12/2023 11:15 AM EDT Office Visit Hematology/Oncology [facility] [place] Zahraa You 200 [facility] [place] [phone] Morgan Vásquez MD 200 [facility] [place] [address] 12/12/2023 11:45 AM EDT Hem/Onc Treatment Hematology/[place]cology [place] 200 [facility] [place] [phone] 02/05/2024 8:40 AM EDT Office Visit Neurology [facility] [address] [place] [address] Octavia Goins PA-C [address] [place] [address] 09/02/2024 8:20 AM EDT Office Visit Pulmonary Medicine, [facility] 132 [facility] [place] [address] Ish Caba MD [address] [place] [address] 05/03/2025 7:40 AM EST Office Visit Dermatology [address] [place] [address] Albina Romo PA-C [address] [place] [address] [place] [address] Scheduled Procedures Name Priority Associated Diagnoses Date/Ti [...] this encounter Medical Devices Implanted Type Area Bandage Wrapping Machine Operator Device Identifier Shelf Expiration Date Model / Serial / Lot Mesh Plug Xlarge [id number] - [id number] Implanted:Qty: 1 on 12/09/2020 by John Zaragoza MD at OR [facility] Left: Demond RIVAS BARD : LUCINDA 05/09/2023 [id number] / / [id number] documented as of this encounter Visit Diagnoses [...] of Attor coco? No Care Teams Senior Computer Specialist Relationship Specialty Start Date End Date Michael Collins MD [address] [place] [address] [place] [address] PCP - General Internal Medicine 03/01/14 documented as of this encounter
--- OUTSIDE RECORDS SUMMARY | 2024-03-26 16:40 | External Medical Summary | Summary of Care ---
Author Name Unknown Organization [facility] Address [address] [facility] [place] [address] Phone [phone] Care Team Providers Care Gas Station Cashier Name Role Phone Michael Collins MD Primary Care Provi zehra Encounter Details Date Type Department Care Team (Late st Contact Info) Description 10/05/2023 Orders Only PATIENT PORTAL DO NOT DELETE THIS DEPT USED BY [place] [id number] Allergies No known active allergiesdocumented as of this encounter (statuses as of 10/05/2023) Medications Medication Sig Dispensed Refills Start Date End Date Status THEOPHYLLINE ER 450 MG PO MW46Mymlsvulitc:2 tablet at bedtime Take by mouth. Indications: [...] nostril at bedtime. PATIENT INFORMATION: Kris Galvin [address] [place] [address] [employer]: [employer]/TBD ORDER: Please start nocturnal oxygen via nasal [...] (electronically signed) Ish Caba MD Pulmonary Medicine, [facility] 132 [facility] [place] [address] E[place] [facility] License Number: [id number] 1 Each 09/21/2022 Active Prochlorperazine Maleate 10 [...] before bedtime. 30 Tablet 5 10/04/2023 Active Hospital, Clinic, or Other Facility Administered [...] as of this encounter (statuses as of 10/05/2023) Active Problems Problem Noted Date Diagnosed Date [...] as of this encounter (statuses as of 10/05/2023) Resolved Problems Problem Noted Date Diagnosed Date Resolved Date Asthma in remission 08/28/2022 08/29/19 Asthma, mild persistent 08/28/202208/11 Asthma, severe persistent 08/28/2022 Stem cell transplant candidate 08/17/2019 09/02/2019 documented as of this encounter (statuses as of 10/05/2023) Immunizations Name Administration Dates Next Due COVID-19 [...] 10/08/2023 2:00 PM EDT Nurse Only Hematology/Oncology [facility] [address] [place] [phone] Kenyatta Nurse Hem Onc Scenery [address] [place] [address] 10/09/2023 1:30 PM EDT Pharmacy Pharmacy Hematology Oncology [facility] [address] [place] [address] [facility] Hem/Onc [address] [place] [address] 10/11/2023 11:00 AM EDT Hospital Encounter OR [facility], Operating Room, [facility] - 4th Floor [address] [place] [address] [facility], In And Out Surgery [address] [place] [address] 10/11/2023 11:00 AM EDT Appointment Radiology, [facility] [address] [place] [address] 10/11/2023 11:00 AM EDT - 10/11/2023 12:00 PM EDT Surgery OR [facility], Operating Room, [facility] - 4th Floor [address] [place] [address] [facility], In And Out Surgery [address] [place] [address] PRE / POST CARE 10/17/2023 8:30 AM EDT Hem/Onc Treatment Hematology/Oncology Treatment, [place] [address] [place] [phone] Kenyatta, Chair 7 Hem Onc Scenery [address] [place] [address] 11/08/2023 9:40 AM EDT Office Visit Rheumatology [address] [place] [phone] Darnell Higgins MD 6724 [facility] [place] [address] 11/15/2023 8:30 AM EDT Hem/Onc Treatment Hematology/Oncology Treatment, [place] 200 [facility], [place] [phone] Kenyatta, Chair 11 Hem Onc [address] [place] [address] 12/12/2023 11:15 AM EDT Office Visit Hematology/Oncology [facility] [place] 200 [facility] [place] [phone] Morgan Vásquez MD 200 [facility] [place] [address] 12/12/2023 11:45 AM EDT Hem/Onc Treatment Hematology/Oncology Treatment, [address] [phone] 02/05/2024 8:40 AM EDT Office Visit Neurology [facility] [address] [place] [address] Octavia Goins PA-C [address] [place] [address] [place] [address] 09/02/2024 8:20 AM EDT Office Visit Pulmonary Medicine, [facility] 132 [facility] [place] [phone] Ish Caba MD [address] [facility] [address] 05/03/2025 7:40 AM EST Office Visit Dermatology [address] [place] [address] Albina Romo PAYeimyC [address] [place] [address] [place] [phone] Scheduled Procedures Name Priority Associated Diagnoses Date/Ti [...] this encounter Medical Devices Implanted Type Area Face Burler Device Identifier Shelf Expiration Date Model / Serial / Lot Mesh Plug Xlarge [id number] - [id number] Implanted:Qty: 1 on 12/09/2020 by John Zaragoza MD at OR [facility] Left: Groin CR BARD : DAVOL 05/09/2023 [id number] / / [id number] documented as of this encounter Advance Directives [...] of Attor coco? No Care Teams Gas Station Cashier Relationship Specialty Start Date End Date Michael Collins MD [address] [place] [address] [place] [address] PCP - General Internal Medicine 03/01/14 documented as of this encounter
--- OUTSIDE RECORDS SUMMARY | 2024-03-26 16:40 | External Medical Summary | Summary of Care ---
Author Name Unknown Organization [facility] Address [address] [facility] [place] [address] Phone [phone] Care Team Providers Care Environmental Aide Name Role Phone Michael Collins MD Primary Care Provi zehra Encounter Details Date Type Department Care Team (Late st Contact Info) Description 10/04/2023 Orders Only Hematology/Oncology [place] [address] [place] [address] Morgan Vásquez MD [address] [facility] [address] Multiple myeloma not having achieved remission (HCC)*; Prothrombin gene mutation (HCC) Allergies No known active allergiesdocumented as of this encounter (statuses as of 10/04/2023) Medications Medication Sig Dispensed Refills Start Date End Date Status THEOPHYLLINE ER 450 MG PO ZJ18Skpizrldbpq:2 tablet at bedtime Take by mouth. Indications: [...] [place] [address] [place] [address] [employer]: [employer]Simmersion HoldingsD ORDER: Please start nocturnal oxygen via nasal [...] signed) Ish Caba MD Pulmonary Medicine, [address] [place] [address] [place] [facility] Medical License Number: [id number] 1 Each 09/21/2022 Active Prochlorperazine Maleate 10 [...] as of this encounter (statuses as of 10/04/2023) Active Problems Problem Noted Date Diagnosed Date [...] as of this encounter (statuses as of 10/04/2023) Resolved Problems Problem Noted Date Diagnosed Date Resolved Date Asthma in remission 08/28/2022 08/29/19 Asthma, mild persistent 08/28/202208/11 Asthma, severe persistent 08/28/2022 Stem cell transplant candidate 08/17/2019 09/02/2019 documented as of this encounter (statuses as of 10/04/2023) Immunizations Name Administration Dates Next Due COVID-19 [...] Progress Notes * Morgan Vásquez MD - 10/04/2023 4:14 PM EDT He is at high-risk for thrombotic complications while on treatment with pomalidomide, Decadron. Also heterozygous for Prothrombin gene mutation Would like to start Eliquis 2.5 mg twice a day. (e-prescribed). documented in this encounter Plan of Treatment Upcoming Encounters Date Type Department Care Team (Late st Contact Info) Description 10/08/2023 2:00 PM EDT Nurse Only [facility] [place] [address] [place] [phone] [place], Nurse Hem Onc [place] [address] [place] [address] 10/09/2023 1:30 PM EDT Pharmacy Pharmacy Hematology Oncology [facility] [address] [place] [address] [facility] Hem/Onc [address] [place] [address] 10/11/2023 11:00 AM EDT Hospital Encounter OR GL, Operating Room, [facility] - 4th Floor 400 [place] [address] [facility], In And Out Surgery 400 [place] [address] 10/11/2023 11:00 AM EDT Appointment Radiology, [facility] 400 [place] [address] 10/11/2023 11:00 AM EDT - 10/11/2023 12:00 PM EDT Surgery OR [facility], Operating Room, [facility] - 4th Floor 400 [place] [address] [facility], In And Out Surgery 400 [place] [address] PRE / POST CARE 10/17/2023 8:30 AM EDT Hem/Onc Treatment Hematology/Oncology Treatment, [place] 200 [facility], [place] [phone] Kenyatta, Chair 7 Hem Onc Scenery 200 [facility] [place] [address] 11/08/2023 9:40 AM EDT Office Visit Rheumatology [address] [place] [phone] Darnell Higgins MD 2520 [facility] [place], [place] [address] 11/15/2023 8:30 AM EDT Hem/Onc Treatment Hematology/Oncology Treatment, [place] 200 [facility] [phone] Kenyatta, Chair 11 Hem Onc [facility] 200 [facility] [place] [address] 12/12/2023 11:15 AM EDT Office Visit Hematology/Oncology [facility] Keny[place] 200 [facility] [place] [phone] Morgan Vásquez MD 200 [facility] [place] [address] 12/12/2023 11:45 AM EDT Hem/Onc Treatment Hematology/Oncology Treatment, [address] [phone] 02/05/2024 8:40 AM EDT Office Visit Neurology [facility] Keny[place] 200 [facility] [place] [address] Octavia Goins PA-C 200 [facility] [place] [address] 09/02/2024 8:20 AM EDT Office Visit Pulmonary Medicine, [facility] 132 [facility] [place] [address] Ish Caba MD [address] [place] [address] 05/03/2025 7:40 AM EST Office Visit Dermatology [address] [place] [address] Albina Romo PA-C [address] [place] [address] [place] [address] Scheduled Procedures Name Priority Associated Diagnoses Date/Ti [...] this encounter Medical Devices Implanted Type Area Sulfuric Acid Plant Supervisor Device Identifier Shelf Expiration Date Model / Serial / Lot Mesh Plug Xlarge [id number] - [id number] Implanted:Qty: 1 on 12/09/2020 by John Zaragoza MD at OR [facility] Left: Groin CR BARD : DAVOL 05/09/2023 [id number] / / [id number] documented as of this encounter Visit Diagnoses Diagnosis Multiple myeloma not having achieved remission (HCC)- Primary Multiple myeloma, without mention of having achieved remission Prothrombin gene mutation (HCC) Primary hypercoagulable state Multiple myeloma not having achieved remission (HCC) [...] Power of Attor coco? No Care Teams Environmental Aide Relationship Specialty Start Date End Date Michael Collins MD [address] [place] [address] [place] [address] PCP - General Internal Medicine 03/01/14 documented as of this encounter
--- OUTSIDE RECORDS SUMMARY | 2024-03-26 16:41 | External Medical Summary | Summary of Care ---
Author Name Unknown Organization [facility] Address [address] [facility] [place] [address] Phone [phone] Care Team Providers Care Senior Analytical Chemist Name Role Phone Michael Collins MD Primary Care Provi zehra Encounter Details Date Type Department Care Team (Late st Contact Info) Description 10/02/2023 Telephone Hematology/Oncology [facility] [place] [address] [place] [address] Morgan Vásquez MD [address] [place] [address] Allergies No known active allergiesdocumented as of this encounter (statuses as of 10/02/2023) Medications Medication Sig Dispensed Refills Start Date End Date Status THEOPHYLLINE ER 450 MG PO QT17Spiifjxjyxb:2 tablet at bedtime Take by mouth. Indications: [...] nostril at bedtime. PATIENT INFORMATION: Kris Galvin [address] [place] [address] DURABLE MEDICAL EQUIPMENT COMPANY: [employer] ORDER: Please start nocturnal oxygen via nasal [...] signed) Ish Caba MD Pulmonary Medicine, [address] [place] [address] [place] [facility] Medical License Number: [id number] 1 Each 09/21/2022 Active Prochlorperazine Maleate 10 [...] as of this encounter (statuses as of 10/02/2023) Active Problems Problem Noted Date Diagnosed Date [...] as of this encounter (statuses as of 10/02/2023) Resolved Problems Problem Noted Date Diagnosed Date Resolved Date Asthma in remission 08/28/2022 08/29/19 Asthma, mild persistent 08/28/202208/11 Asthma, severe persistent 08/28/2022 Stem cell transplant candidate 08/17/2019 09/02/2019 documented as of this encounter (statuses as of 10/02/2023) Immunizations Name Administration Dates Next Due COVID-19 [...] 1:14 PM EDT IR BIOPSY [IRBIOPSY] (Order [id number]) Multiple myeloma not having achieved remission (HCC) [C90.00] - Primary documented in this encounter Plan of Treatment Upcoming Encounters Date Type Department Care Team (Late st Contact Info) Description 10/08/2023 2:00 PM EDT Nurse Only Hematology/Oncology [facility] [place] [facility] [place] [address] Ken[place], Nurse Hem Onc [address] [place] [address] 10/17/2023 8:30 AM EDT Hem/Onc Treatment Hematology/Oncology [address], [address] [phone] [place], Chair [address] On[address] [place] [address] 11/08/2023 9:40 AM EDT Office Visit [address] [place] [phone] Darnell Higgins MD [address] [place] [address] [place], [place] [phone] 11/15/2023 8:30 AM EDT Hem/Onc Treatment Hematology/Oncology [address] [address] [place], Chair [address] [place], [place] [phone] 12/12/2023 11:15 AM EDT Office Visit Hematology/Oncology [facility] [place] [address] [place] [address] Morgan Vásquez MD 200 [place] [address] 12/12/2023 11:45 AM EDT Hem/Onc Treatment Hematology/Oncology [address], [address] [address] 02/05/2024 8:40 AM EDT Office Visit Neurology [facility] [address] [place] [address] Octavia Goins PA-C [address] [place] [address] 09/02/2024 8:20 AM EDT Office Visit Pulmonary Medicine, [facility] [address] [place] [address] Ish Caba MD [address] [place] [address] 05/03/2025 7:40 AM EST Office Visit Dermatology [address] [place] [address] Albina Romo PA-C [address] [place] [address] [place] [address] Health Maintenance Due Date Last Done Comments [...] this encounter Medical Devices Implanted Type Area English Adjunct Faculty Device Identifier Shelf Expiration Date Model / Serial / Lot Mesh Plug Xlarge [id number] - [id number] Implanted:Qty: 1 on 12/09/2020 by John Zaragoza MD at OR [facility] Left: Groin CR BARD : DAVOL 05/09/2023 [id number] / / [id number] documented as of this encounter Advance Directives [...] of Attor coco? No Care Teams Senior Analytical Chemist Relationship Specialty Start Date End Date Michael Collins MD [address] [place] [address] [place] [address] PCP - General Internal Medicine 03/01/14 documented as of this encounter
--- OUTSIDE RECORDS SUMMARY | 2024-03-26 16:41 | External Medical Summary | Summary of Care ---
Author Name Unknown Organization [facility] Address [address] [place] [address] Phone [phone] Care Team Providers Care Reconciliation Specialist Name Role Phone Michael Collins MD Primary Care Provi zehra Reason for Visit * Reason Comments Medication Management Encounter Details Date Type Department Care Team (Late st Contact Info) Description 10/02/2023 1:00 PM EDT Pharmacy Pharmacy Hematology Oncology [facility] [address] [place] [address] [facility] Hem/Onc [address] [place] [address] Multiple myeloma not having achieved remission (HCC)* Allergies No known active allergiesdocumented as of this encounter (statuses as of 10/02/2023) Medications Medication Sig Dispensed Refills Start Date End Date Status THEOPHYLLINE ER 450 MG PO TN37Eyrerwwzxea:2 tablet at bedtime Take by mouth. Indications: [...] Galvin [address] [place] [address] DURABLE MEDICAL EQUIPMENT COMPANY: [employer] ORDER: Please start nocturnal oxygen via nasal [...] signed) Ish Caba MD Pulmonary Medicine, [address] [place] [address] [place] [facility] Medical License Number: [id number] 1 Each 09/21/2022 Active Prochlorperazine Maleate 10 [...] as of this encounter Progress Notes * Tamela Polanco, [facility] - 10/02/2023 4:27 PM EDT MEDICATION THERAPY MANAGEMENT POMALIDOMIDE INITIAL INTAKE NOTE Kris Galvin [phone] Patient Phone Numbers Communication: Chart review Treatment: Medication: Pomalidomide (Pomlayst) Indication/Staging/Diagnosis Code: IgG kappa multiple myeloma Dose: 4 mg daily for 21 of 28 days Administration: +/- food Start Date: TBD Primary Warehouse Director/Oncologist: Dr. Mary Vásquez Additional Therapy: Darzalex monthly Dexamethansone 40 mg weekly Prophylactic Meds: Aspirin 81 mg daily Acyclovir Cycle Dates C1 TBD C2 TBD Review of therapy: Line of therapy: 6th Previous therapy: - Lenalidomide maintenance at 10 mg per [...] -he had autologous stem cell transplant at [facility] on 09/01/2019. - Induction treatment with Revlimid, Velcade and Decadron between 05/11/2019- 08/31/2019. (IgG level dropped down from 8300 --> 638 before the stem cell transplant, free kappa light chain dropped down from 646 --> 25, M spike dropped down from 5.98 --> 0.37 g/dL). CURRENT TREATMENT: -Subcutaneous daratumumab started 01/12/2021 - currently receiving SUBQ: Daratumumab 1,800 mg/hyaluronidase 30,000 units once every 4 weeks (beginning week 25) until disease progression or unacceptable toxicity. Reviewed dosage prescribed for appropriateness (based on indication, hepatic function,renal function, etc): no changes Are appropriate supportive care medications prescribed? Yes Are appropriate prophylactic medications prescribed? 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 No, new baseline TFTs Has hepatitis B screening been completed? Yes Potential drug-drug drug-herbal, drug-food, drug-disease interactions: Yes Pomalidomide/oxycodone/zolpidem/lomotil/pregabalin/prochlorperazine/trazodone: DEHYDROGENATION CONVERTER HELPER Depressants may enhance the adverse/toxic effect of other DEHYDROGENATION CONVERTER HELPER Depressants Recommendation: Dose reductions of one or both DEHYDROGENATION CONVERTER HELPER depressant agents may be necessary. Monitor for additive DEHYDROGENATION CONVERTER HELPER-depressant effects whenever two or more DEHYDROGENATION CONVERTER HELPER depressants are concomitantly used. Action: Pt will be counseled and monitored The Hematology/Oncology Oral Chemotherapy Clinic will assess [...] D1 of pomalidomide based on IR biopsy SM sent to Dr. Vásquez re: thromboprophylaxis Yes/no Date Action Taken [place] plan entered? Yes 10/02/23 Consent completed? Yes 10/02/23 Intro/med rec completed? Precert completed? Test claim completed? Financial assistance needed? Physician signature? Rx released? Education completed? Follow up: 3 days Tamela Polanco, PharmD, BCOP Ambulatory Clinical Pharmacist | Oral Chemotherapy Clinic [facility] 10/02/2023, 4:47 PM Monitoring Parameters: Estimated CrCl Serum creatinine: 1.1 mg/dL 09/18/23 0819 Estimated creatinine clearance: 102.3 mL/min Hepatitis panel 12/23/20 - negative, not immune test Suggested lab monitoring Suggested Labs: CBC with differential and platelets weekly for the first 8weeks and monthly, CMP monthly, TSH baseline and every 2-3 months Parameters to be met: ANC > 500 and PLT > 25K Is patient on prophylactic anticoagulation? Yes, aspirin 81 mg daily IMPEDE Score: 4 (+4 for IMID, +1 for BMI, +2 for Low dose dex, -3 for existing asa use SAVED Score: 1 (standard dose dex) Date TSH Free T4 Current thyroid meds Next Due Date Treatment Parameters documented in this encounter Plan of Treatment Upcoming Encounters Date Type Department Care Team (Late st Contact Info) Description 10/03/2023 1:15 PM EDT Pharmacy Pharmacy Hematology Oncology [address] [address] [facility], [facility] Hem/Onc [facility] [place] [address] 10/08/2023 2:00 PM EDT Nurse Only Hematology/Oncology [facility] [place] 200 [facility] [place] [address] [place], Nurse Hem Onc [facility] 200 [facility] [place] [address] 10/09/2023 1:30 PM EDT Pharmacy Pharmacy Hematology Oncology [place] [address] [place] [address] [facility], [facility] Hem/Onc [address] [place] [address] 10/17/2023 8:30 AM EDT Hem/Onc Treatment Hematology/Oncology Treatment, [address] [phone] [place], Chair 7 Hem Onc [address] [place] [address] 11/08/2023 9:40 AM EDT Office Visit Rheumatology [address] [place] [phone] Darnell Higgins MD [facility] [place] [address] 11/15/2023 8:30 AM EDT Hem/Onc Treatment Hematology/Oncology [address], [address] [phone] [place], Chair 11 Hem Onc [address] [place] [address] [place] [address] 12/12/2023 11:15 AM EDT Office Visit Hematology/Oncology [facility] [address] [place] [phone] Morgan Vásquez MD [address] [place] [address] 12/12/2023 11:45 AM EDT Hem[facility] [address] [facility] [place] [phone] 02/05/2024 8:40 AM EDT Office Visit Neurology [facility] 200 [facility] [place] [address] Octavia Goins, PA-C 200 [facility] [place] [address] 09/02/2024 8:20 AM EDT Office Visit Pulmonary Medicine, [facility] 132 [facility] [place] [phone] Ish Caba MD [address] [facility] [place] [address] 05/03/2025 7:40 AM EST Office Visit Dermatology [address] [place] [address] Albina Romo, PA-C [address] [place] [address] [place] [address] Health Maintenance Due Date Last Done Comments [...] this encounter Medical Devices Implanted Type Area Partner Cco Device Identifier Shelf Expiration Date Model / Serial / Lot Mesh Plug Xlarge [id number] - [id number] Implanted:Qty: 1 on 12/09/2020 by John Zaragoza MD at OR [facility] Left: Groin CR BARD : DAVOL 05/09/2023 [id number] / / [id number] documented as of this encounter Visit Diagnoses [...] Power of Attor coco? No Care Teams Reconciliation Specialist Relationship Specialty Start Date End Date Michael Collins MD [address] [place] [address] [place] [address] PCP - General Internal Medicine 03/01/14 documented as of this encounter
--- OUTSIDE RECORDS SUMMARY | 2024-03-26 16:41 | External Medical Summary | Summary of Care ---
Author Name Unknown Organization [facility] Address [address] [facility] [place] [address] Phone [phone] Care Team Providers Care Silo Painter Name Role Phone Michael Collins MD Primary Care Provi zehra Reason for Visit * Reason Onset Date Comments Appointment 10/02/2023 Encounter Details Date Type Department Care Team (Late st Contact Info) Description 10/02/2023 Telephone Hematology/Oncology [facility] [place] 200 [facility] [phone] Morgan Vásquez MD 200 [facility] [place] [address] Appointment Allergies No known active allergiesdocumented as of this encounter (statuses as of 10/02/2023) Medications Medication Sig Dispensed Refills Start Date End Date Status THEOPHYLLINE ER 450 MG PO HN77Ppduxiewkby:2 tablet at bedtime Take by mouth. Indications: [...] Galvin [address] [place] [address] DURABLE MEDICAL EQUIPMENT COMPANY: [employer] ORDER: Please start nocturnal oxygen via nasal [...] signed) Ish Caba MD Pulmonary Medicine, [address] [place] [address] [facility] Medical License Number: [id number] 1 Each 09/21/2022 Active Prochlorperazine Maleate 10 [...] Telephone Encounter - Court Re[facility]SA - 10/02/2023 11:07 AM EDT Request Summary [[id number]] Procedure: IR BIOPSY Status: Needs Scheduling Requested appt date: Authorizing: Morgan Vásquez MD in HEM/ONC [facility] Referral: [id number] (Authorized) Priority: Routine Diagnosis: Multiple myeloma not having achieved remission (HCC) [C90.00] Order Specific Questions Location -posterior superior iliac crest bone marrow Lab Tests for specimen(s) collected Routine bone marrow slides, bone marrow panel ( cytogenetics, myeloma FSH), Reason for Procedure Case of IgG kappa multiple myeloma, currently on treatment with subcutaneous daratumumab, rise in the free kappa light chain, enlarging lymphadenopathy in the left supraclavicular region. Where Will The Procedure Be Performed? GL How Soon Should This Procedure Be Scheduled? 1 Week or Less Specimen collection? Request History Action Date and Time User Details Request Created 10/02/2023 09:37 Morgan Vásquez MD Appointment Encounter, Details Patient Called 10/02/2023 09:47 Valeria Rabago OSA Details IR to review Workqueue Summary Current Workqueues Entry Current Tab RADIANT SOR IR TECH [4688] RADIANT IR ORDERS [4804] RADIANT SOR IR TECH GLH [4810] 10/02/2023 09:37 10/02/2023 09:37 10/02/2023 09:37 Active Active Active Details Details Details documented in this encounter Plan of Treatment Upcoming Encounters Date Type Department Care Team (Late st Contact Info) Description 10/02/2023 1:00 PM EDT Pharmacy Pharmacy Hematology Oncology [facility] [address] [place] [address] [facility] Hem/Onc [address] [place] [address] 10/08/2023 2:00 PM EDT Nurse Only Hematology/Oncology [facility] [place] [address] [place] [address] [place], Nurse Hem Onc [facility] [address] [place] [address] 10/17/2023 8:30 AM EDT Hem/Onc Treatment Hematology/Oncology Treatment, [place] 200 [facility], [place] [phone] Keny[place], Chair 7 Hem Onc [facility] 200 [facility] [place], [place] [address] 11/08/2023 9:40 AM EDT Office Visit Rheumatology [address] [place] [phone] Darnell Higgins MD [address] [facility] [place], [place] [address] 11/15/2023 8:30 AM EDT Hem/Onc Treatment Hematology/Oncology Treatment, [place] 200 [facility], [place] [phone] [place], Chair 11 Hem Onc [address] [place], [place] [address] 12/12/2023 11:15 AM EDT Office Visit Hematology/Oncology [facility] [place] 200 [facility] [place], [place] [phone] Morgan Vásquez MD 200 [facility] [place], [place] [address] 12/12/2023 11:45 AM EDT Hem/Onc Treatment Hematology/Oncology Treatment, [place] 200 [facility], [place] [phone] 02/05/2024 8:40 AM EDT Office Visit Neurology [facility] [place] 200 [facility] [place], [place] [address] Octavia Goins PA-C 200 [facility] [place], [place] [address] 09/02/2024 8:20 AM EDT Office Visit Pulmonary Medicine, [facility] 132 [facility] [place] [address] Ish Caba MD [address] [place] [address] 05/03/2025 7:40 AM EST Office Visit Dermatology [address] [place] [address] Albina Romo PA-C [address] [place] [address] [place] [address] Health Maintenance Due Date Last Done Comments [...] encounter Medical Devices Implanted Type Area Head Of Marketing Adometry Device Identifier Shelf Expiration Date Model / Serial / Lot Mesh Plug Xlarge [id number] - [id number] Implanted:Qty: 1 on 12/09/2020 by John Zaragoza MD at OR [facility] Left: Groin CR BARD : DAVOL 05/09/2023 [id number] / / [id number] documented as of this encounter Advance Directives [...] Power of Attor coco? No Care Teams Silo Painter Relationship Specialty Start Date End Date Michael Collins MD [address] [facility] [place] [address] PCP - General Internal Medicine 03/01/14 documented as of this encounter
--- OUTSIDE RECORDS SUMMARY | 2024-03-26 16:41 | External Medical Summary | Summary of Care ---
Author Name Unknown Organization [facility] Address [address] [facility] [place] [address] Phone [phone] Care Team Providers Care Hospital Housekeeper Name Role Phone Michael Collins MD Primary Care Provi zehra Reason for Visit * Reason Onset Date Comments Scheduling 10/02/2023 CT bone marrow b iopsy Encounter Details Date Type Department Care Team (Late st Contact Info) Description 10/02/2023 Telephone Hematology/Oncology [facility] [place]a You [facility] [place] [phone] Morgan [facility] MD [facility] [address] Scheduling (CT bone marrow biopsy) Allergies No known active allergiesdocumented as of this encounter (statuses as of 10/03/2023) Medications Medication Sig Dispensed Refills Start Date End Date Status THEOPHYLLINE ER 450 MG PO YL42Lujfcbeiacx:2 tablet at bedtime Take by mouth. Indications: [...] nostril at bedtime. PATIENT INFORMATION: Kris Galvin [address] [place] [address] DURABLE MEDICAL EQUIPMENT COMPANY: [employer] ORDER: Please start nocturnal oxygen via nasal [...] signed) Ish Caba MD Pulmonary Medicine, [address] [place] [address] [place] [facility] Medical License Number: [id number] 1 Each 09/21/2022 Active Prochlorperazine Maleate 10 [...] and stop drinking 2 hoursprior to procedure. -Instructor Decorating required Location and check-in instructions - Obtain [...] 1:14 PM EDT IR BIOPSY [IRBIOPSY] (Order [id number]) Multiple myeloma not having achieved remission (HCC) [C90.00] - Primary documented in this encounter Plan of Treatment Upcoming Encounters Date Type Department Care Team (Late st Contact Info) Description 10/03/2023 1:15 PM EDT Pharmacy Pharmacy Hematology Oncology [place] [address] [place] [address] [facility] Hem/Onc [facility] [place] [address] 10/08/2023 2:00 PM EDT Nurse Only Hematology/Oncology [facility] [place] [address] [place], [place] [phone] [place], Nurse Hem Onc [address] [place] [address] 10/09/2023 1:30 PM EDT Pharmacy Pharmacy Hematology Oncology [place] [address] [place] [address] [facility], [facility] Hem/Onc [address] [place] [address] 10/17/2023 8:30 AM EDT Hem/Onc Treatment Hematology/Oncology Treatment [address] [place] [phone] Kenyatta, Chair 7 [facility] [place] [address] 11/08/2023 9:40 AM EDT Office Visit Rheumatology [address] [place] [phone] Darnell Higgins MD [address] [place] [address] Dr [place], [place] [address] 11/15/2023 8:30 AM EDT Hem/Onc Treatment Hematology/Oncology Treatment, [address] [place] [phone] Ken[place], Chair 11 Hem Onc [address] [facility] [address] [place], [place] [address] 12/12/2023 11:15 AM EDT Office Visit Hematology/Oncology [facility] [place] [address] [place] [phone] Morgan Vásquez MD [address] [place] [address] 12/12/2023 11:45 AM EDT Hem/Onc Treatment Hematology/Oncology Treatment, [place] [address] [place] [address] 02/05/2024 8:40 AM EDT Office Visit Neurology [facility] [address] [place] [address] Octavia Goins PA-C 200 [facility] [place] [address] 09/02/2024 8:20 AM EDT Office Visit Pulmonary Medicine, [facility] 132 [facility] [place] [address] Ish Caba MD [address] [place] [address] 05/03/2025 7:40 AM EST Office Visit Dermatology [address] [place] [address] Albina Romo PA-C [address] [place] [address] [place] [address] Scheduled Orders Name Type Priority Associated Diagnoses [...] this encounter Medical Devices Implanted Type Area Sports Official Device Identifier Shelf Expiration Date Model / Serial / Lot Mesh Plug Xlarge [id number] - [id number] Implanted:Qty: 1 on 12/09/2020 by John Zaragoza MD at OR [facility] Left: Demond RIVAS BARD : DAVOL 05/09/2023 [id number] / / [id number] documented as of this encounter Visit Diagnoses [...] Power of Attor coco? No Care Teams Hospital Housekeeper Relationship Specialty Start Date End Date [place] Collins MD [address] [place] [address] [place] [address] PCP - General Internal Medicine 03/01/14 documented as of this encounter
--- OUTSIDE RECORDS SUMMARY | 2024-03-26 16:42 | External Medical Summary | Summary of Care ---
Author Name Unknown Organization [facility] [address] [facility] [address] Phone [phone] Care Team Providers Care Rn Hyperbaric Name Role Phone Michael Collins MD Primary Care Provi zehra Reason for Referral * Precert (Within 10 days (routine)) - Authorized Specialty Diagnoses / Procedures Referred By Contac t Referred To Contact Radiology Diagnoses Multiple myeloma not having achieved remission (HCC) Procedures IR BIOPSY Morgan Vásquez MD 200 [facility] [place], [place] [address] Referral ID Status Reason Start Date Expiration Date V isits Requested Visits Authorized [id number] Authorized 10/02/2023 999 999 Reason for Visit * Reason Comments Follow Up Encounter Details Date Type Department Care Team (Late st Contact Info) Description 10/02/2023 9:15 AM EDT Office Visit Hematology/Oncology [place] [address] [place] [phone] Morgan Vásquez MD 200 [facility] [place] [address] Multiple myeloma not having achieved remission (HCC)* Allergies No known active allergiesdocumented as of this encounter (statuses as of 10/02/2023) Medications Medication Sig Dispensed Refills Start Date End Date Status THEOPHYLLINE ER 450 MG PO [id number]:2 tablet at bedtime Take by mouth. Indications: [...] nostril at bedtime. PATIENT INFORMATION: Kris Sweettania [address] [place] [address] DURABLE MEDICAL EQUIPMENT COMPANY: [employer] ORDER: Please start nocturnal oxygen via [...] signed) Ish Caba MD Pulmonary Medicine, [address] [place] [address] [place] [facility] Medical License Number: [id number] 1 Each 09/21/2022 Active Prochlorperazine Maleate 10 [...] (Zovirax)Indicatio ns:Multiple myeloma not having achieved remission ([facility]),History of autologous stem cell transplant ([facility]) TAKE 1 TABLET BY MOUTH TWICE A [...] inhalation solution 2.5 mgIndications:ILD (interstitial lung disease) ([facility]),Chronic respiratory failure with hypoxia (HCC),Hypoxemia 2.5 mg [...] mRNA, LNP-s, No Pre serve, 2-Dose Series ([employer]) 01/17/2021,08/05/2020,07/08/2020 COVID-19, LNP-s, No Preserve , Bryant-sucrose, Ages 12+ ([employer]) 09/26/2021 DTaP Dipth/Tet/Acell Pertussis ([employer]), Peds 02/23/2021,11/11/2020,09/09/2020 [...] Sign Reading Time Taken Comments Blood Pressure 147/91 10/02/2023 8:55 AM EDT Pulse 78 10/02/2023 8:55 AM EDT Temperature 36.1 C (97 F) 10/02/2023 8:55 AM EDT Respiratory Rate 17 10/02/2023 8:55 AM EDT Oxygen Saturation 93% 10/02/2023 8:55 AM EDT Inhaled Oxygen Concentration - - Weight 130.7 kg (288 lb 1.6 oz) 10/02/2023 8:55 AM EDT Height - - Body Mass Index 39.07 09/03/2023 7:35 AM EDT documented in this encounter Functional [...] Progress Notes * Morgan Vásquez MD - 10/02/2023 9:15 AM EDT Hematology/Oncology Outpatient Clinic note Elizabeth Beckwith Jeremiah [address] [place] [address] Name: Kris Galvin Date: 08/21/2023 CHIEF COMPLAINT: [...] left supraclavicular lymph node on 09/25/2023 --> abrasion kappa restricted plasma cells, consistent with involvement [...] -he had autologous stem cell transplant at [facility] on 09/01/2019. - Induction treatment with Revlimid, [...] 25) until disease progression or unacceptable toxicity. DIAGNOSTIC WORKUP: He had protein electrophoresis done [...] significant increase in M spike to 5.98. Screven and lambda shows significant increase in the [...] 32, free lambda light chain --> 8.4, Screven/Lambda ratio 3.8. (07/29/2020). -IgG 1163, IgA 44, IgM 16 (07/29/2020). -M spike --> 0.46 (May 2020) --> 0.82 (07/29/2020). Bone marrow examination (07/29/2020: Non-remission myeloma. -plasma cells roughly between 10 to 15%. -Normal male chromosome -myeloma FISH --> negative. HISTORY OF PRESENT ILLNESS: He has come the clinic for the follow-up, accompanied by his in the office. He does complain of chronic musculoskeletal symptoms which are not part of the underlying myeloma, he did not have any lytic bone lesions in the previous imaging studies, had some old rib fractures in the imaging studies, no nausea no vomiting, currently he is on Darzalex Faspro every monthly. No fever, no increasing leg edema. Increasing shortness of breath, she was seen by seen in Pulmonary Clinic, currently he is on oxygen treatment as needed. 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 Concussion with loss of consciousness of 30 minutes or less 01/03/2012 Degeneration of lumbosacral intervertebral disc 04/14/2008 Encounter for antineoplastic chemotherapy 08/31/2019 Generalized osteoarthritis 04/14/2008 History of autologous stem cell transplant (HCC) 09/02/2019 T 0 = 09/01/2019 Preparative Regimen: Melphalan 200 mg/m2 Stem Cell Dose: 5.96 X 10^6 CD 34/kg INFORMATION 12/28/11 [place] Multiple myeloma not having achieved remission (HCC) 12/30/2020 Past Surgical History: Procedure Laterality Date BONE MARROW/STEMCELL XPLNT, AUTOLOG 09/01/2019 COLONOSCOPY, DIAGNOSTIC (RECTUM) 03/03/2018 normal, repeat 5 yrs/COLONOSCOPY FLEXIBLE PROXIMAL DIAGNOSTIC performed by Bryanna Alberts MD at ENDOSCOPY [facility] IR BIOPSY 08/07/2019 IR BIOPSY 12/04/2019 IR BIOPSY 07/29/2020 IR BIOPSY 09/25/2023 IR VENOUS ACCESS NON-MEDIPORT 08/24/2019 IR VENOUS ACCESS NON-MEDIPORT 09/21/2019 LAPAROSCOPY; CHOLECYSTECTOMY 2006 REPAIR INITIAL INGUINAL HERNIA REDUCIBLE AGE 5 OR MORE Left 12/09/2020 REPAIR INITIAL INGUINAL HERNIA REDUCIBLE AGE 5 OR MORE performed by John Zaragoza MD at OR [facility] Social History Socioeconomic History Marital status: Spouse name: Yvrose Number of children: 2 Years of education: Not on file Highest education level: Not on file Occupational History Employer: [employer] 10[employer] Tobacco Use Smoking status: Former [...] MG CAPS Take by mouth. Multiple Vitamins-Minerals ([facility] [...] times a day . 30 g 2 traMADol HCl 50 MG Oral Tablet (Ultram) Take by mouth. B Complex Formula 1 (Lipotrop) Oral Tablet Dexamethasone 4 MG Oral Tablet (Decadron) TAKE 1 TABLET BY MOUTH IN THE MORNING ON DAYS 2 AND 3 AFTER EACH DARZALEX TREATMENT 30 Tablet 2 Levalbuterol HCl 1.25 MG/3ML Inhalation Nebulization Solution (Xopenex) INHALE CONTENTS OF 1 VIAL (3ML) EVERY 6 HOURS Ondansetron HCl 8 MG Oral Tablet (Zofran) TAKE 1 TABLET BY MOUTH EVERY 8 HOURS NEEDED FOR [id number] Tablet 3 oxygen IN GAS Administer 2 L/min(Oxygen) into nostril at bedtime. PATIENT INFORMATION: Kris Galvin [address] [place] [address] [employer]: [employer] ORDER: Please start nocturnal oxygen via nasal [...] signed) Ish Caba MD Pulmonary Medicine, [address] [place] [address] [place] [facility] Medical License Number: [id number] 1 Each 0 Prochlorperazine Maleate 10 MG Oral Tablet (Compazine) TAKE 1 TABLET BY MOUTH EVERY 6 HOURS NEEDED FOR NAUSEA 60 Tablet 5 metFORMIN HCl ER (OSM) 500 MG Oral Tablet Extended Release 24 Hour 1 Tablet. oxyCODONE HCl 5 MG Oral Tablet (Oxy IR) TAKE 1 TAB BY MOUTH EVERY 6 HOURS NEEDED FOR PAIN Triamcinolone Acetonide 0.1 % External Cream (Aristocort) Apply 2x daily to rashes areas on trunk/arms/legs during winter time mostly. 454 g 0 Ondansetron HCl 8 MG Oral Tablet (Zofran) TAKE 1 TABLET BY MOUTH EVERY 8 HOURS NEEDED FOR [id number] Tablet 1 Pregabalin 25 MG Oral Capsule (Lyrica) 1 tab am and 1 tab pm 60 Capsule 2 Acyclovir 800 MG Oral Tablet (Zovirax) TAKE 1 TABLET BY MOUTH TWICE A DAY 180 Tablet 3 Amoxicillin-Pot Clavulanate 500-125 MG Oral Tablet (Augmentin) Take 1 Tablet by mouth in the morning and 1 Tablet at noon and 1 Tablet before bedtime. DULoxetine HCl 60 MG Oral Capsule Delayed Release Particles (Cymbalta) Take 1 Capsule by mouth in the morning and 1 Capsule before bedtime. 180 Capsule 1 Current Facility-Administered Medications Medication Dose Route Frequency [...] There were no vitals taken for this visit.BP 147/91 (BP Site: Left Arm, BP Position: Sitting, BP Cuff Size: Large) | Pulse 78 | Temp 36.1 C (97 F) (Tympanic) | Resp 17 | Wt 130.7 kg (288 lb 1.6 oz) | SpO2 93% | BMI 39.07 kg/m | BSA 2.58 m PHYSICAL EXAM: ECOG: Performance Status 1 [...] -WBC 6200, H&H of 15.6/47.4, Platelet count 470284 -BUN/Creat: 21/1.1, Calcium 9.5, normal LFT. -Ig, IgA 21, IgM 12 -free kappa light chain --> 47.4, free lambda light chain--> 2.1, Calcium 22.1 -M spike --> 1.09 g/dL. IMAGING: PET/CT 08/13/23: IMPRESSION 1. No FDG avid metastatic disease. 2. A few prominent left supraclavicular lymph nodes with mild metabolic uptake, likely reactive. IMPRESSION/PLAN: IgG kappa multiple myeloma Encounter for chemotherapy CIPN Currently receiving SUBQ: Daratumumab 1,800 mg/hyaluronidase 30,000 units once every 4 weeks -tolerating well I reviewed with him regarding the recent the [facility] ER visit, CT scan findings, lucency noted [...] PET-CT scan done in August of 2023. Talked to him about role of bone marrow and he is in agreement for that, planning for bone marrow by IR at [facility] Talked to him about adding pomalidomide and Decadron treatment and continuing Darzalex Faspro, reviewed with regarding treatment schedule with pomalidomide Decadron and he is in agreement for that Planning for pomalidomide 4 mg once a day for 3 weeks followed by 1 week off Decadron 40 mg once a week Will continue Darzalex Faspro every monthly as we planned since 2020. Planning to see him after the bone marrow evaluation is done.Will start new treatment after having bone marrow done. Dr. Morgan Vásquez Hem/Onc (This note was completed using the dictation program Fluency Direct. As such, there may be misspellings word substitutions, or other variations that should not change the essence of the clinical content of this encounter note. If there is need for further clarification, please direct questions to the provider listed above.) documented in this encounter Nursing Notes * Devora Stratton, MED ASSIST - 10/02/2023 8:55 AM EDT Patient identifed by name and [...] it for you? ALREADY ACTIVE Filed Vitals: 10/02/23 0855 BP: 147/91 Pulse: 78 Resp: 17 Temp: 36.1 C (97 F) TempSrc: Tympanic SpO2: 93% Weight: 130.7 kg (288 lb 1.6 oz) Patient was instructed to not get up [...] 1:00 PM EDT Pharmacy Pharmacy Hematology Oncology [place] [address] [place] [address] [facility] [place] Hem/Onc [facility] [place] [address] 10/08/2023 2:00 PM EDT Nurse Only Hematology/Oncology [facility] [address] [place] [phone] Kenyatta, Nurse Hem Onc Scenery [address] [facility] [place] [address] 10/17/2023 8:30 AM EDT Hem/Onc Treatment Hematology/Oncology Treatment, [place] [address] [place] [phone] Kenyatta, Chair 7 Hem Onc [address]ery [address] [place] [address] 11/08/2023 9:40 AM EDT Office Visit Rheumatology [address] [place] [phone] Darnell Higgins MD [address] [facility] [place] [address] 11/15/2023 8:30 AM EDT Hem/Onc Treatment Hematology/Oncology Treatment, [place] [address] [facility], [place] [phone] Kenyatta, Chair 11 Hem Onc [address] [place] [address] 12/12/2023 11:15 AM EDT Office Visit Hematology/Oncology [facility] [place] 200 [facility] [place] [phone] Morgan Vásquez MD [address] [facility] [place] [address] 12/12/2023 11:45 AM EDT Hem/Onc Treatment [address]ology[address]Oncology [address] [phone] 02/05/2024 8:40 AM EDT Office Visit Neurology [facility] [place] [address] [facility] [place] [address] Octavia Goins PA-C [address] [facility] [place] [address] 09/02/2024 8:20 AM EDT Office Visit Pulmonary Medicine, [facility] [address] [facility] [place] [phone] Ish Caba MD [address] [facility] [place] [address] 05/03/2025 7:40 AM EST Office Visit Dermatology [address] [place] [address] Albina Romo PA-C [address] [place] [address] [place] [address] Scheduled Orders Name Type Priority Associated Diagnoses Orde r Schedule IR BIOPSY Medical Imaging Routine Multiple myeloma not having achieved remission (HCC) Ordered: 10/02/2023 Health Maintenance Due Date Last Done Comments [...] this encounter Medical Devices Implanted Type Area Social Services Manager Device Identifier Shelf Expiration Date Model / Serial / Lot Mesh Plug Xlarge [id number] - [id number] Implanted:Qty: 1 on 12/09/2020 by John Zaragoza MD at OR [facility] Left: Groin CR BARD : DAVOL 05/09/2023 [id number] / / [id number] documented as of this encounter Visit Diagnoses [...] of Attor coco? No Care Teams Rn Hyperbaric Relationship Specialty Start Date End Date Michael Collins MD [address] [place] [address] [place] [address] PCP - General Internal Medicine 03/01/14 documented as of this encounter"
--- OUTSIDE RECORDS SUMMARY | 2024-03-26 16:42 | External Medical Summary | Summary of Care ---
Author Name Unknown Organization [facility] Address [address] [facility] [place] [address] Phone [phone] Care Team Providers Care Market Development Specialist Name Role Phone Michael Collins MD Primary Care Provi zehra Reason for Visit * Reason Comments eRx-Medication Refill Encounter Details Date Type Department Care Team (Late st Contact Info) Description 09/27/2023 Refill Neurology [facility] [place] [address] [place] [address] Octavia Goins PA-C 200 [facility] [place] [address] Allergies No known active allergiesdocumented as of this encounter (statuses as of 09/30/2023) Medications Medication Sig Dispensed Refills Start Date End Date Status THEOPHYLLINE ER 450 MG PO [id number]:2 tablet at bedtime Take by mouth. Indications: [...] Tablet by mouth in the morning. Active Diphenoxylate-Atrop ine 2.5-0.025 MG Oral Tablet (Lomotil)Indication s:Multiple myeloma in remission (HCC),Diarrhea, unspecified type TAKE 1 TABLET BY MOUTH 4 TIMES A DAY NEEDED FOR DIARRHEA 60 Tab 02/07/2021 Active Sildenafil Citrate 100 MG Oral Tablet 03/29/2021 Active Clobetasol Propionate 0.05 % External Ointment (Temovate)Indicatio ns:Skin rash Apply topically to affected area 2 times a day . 30 g 2 03/01/2022 Active traMADol HCl 50 MG Oral Tablet (Ultram) Take by mouth. Active B Complex Formula 1 (Lipotrop) Oral Tablet Active Dexamethasone 4 MG Oral Tablet (Decadron)Indicatio ns:Multiple myeloma not having achieved remission (HCC) TAKE 1 TABLET BY MOUTH IN THE MORNING ON DAYS 2 AND 3 AFTER EACH DARZALEX TREATMENT 30 Tablet 2 05/25/2022 Active Levalbuterol HCl 1.25 MG/3ML Inhalation Nebulization Solution (Xopenex) INHALE CONTENTS OF 1 VIAL (3ML) EVERY 6 HOURS 05/31/2022 Active Ondansetron HCl 8 MG Oral Tablet (Zofran)Indications :Multiple myeloma (HCC) TAKE 1 TABLET BY MOUTH EVERY 8 HOURS NEEDED FOR NAUSEA 30 Tablet 3 08/13/2022 Active oxygen IN GAS Administer 2 L/min(Oxygen) into nostril at bedtime. PATIENT INFORMATION: Kris Galvin [address] [place] [address] DURABLE MEDICAL EQUIPMENT COMPANY: [employer] ORDER: Please start nocturnal oxygen via nasal [...] signed) Ish Caba MD Pulmonary Medicine, [address] [place] [address] [place] [facility] Medical License Number: [id number] 1 Each 09/21/2022 Active Prochlorperazine Maleate 10 MG Oral Tablet (Compazine)Indicati ons:Multiple myeloma in remission (HCC) TAKE 1 TABLET [...] Active Ondansetron HCl 8 MG Oral Tablet (Zofran)Indications :Multiple myeloma (HCC) TAKE 1 TABLET BY MOUTH EVERY 8 HOURS NEEDED FOR NAUSEA 90 Tablet 1 05/08/2023 Active Pregabalin 25 MG Oral Capsule (Lyrica) 1 tab am and 1 tab pm 60 Capsule 2 07/23/2023 Active Acyclovir 800 MG Oral Tablet (Zovirax)Indication s:Multiple myeloma not having achieved remission (HCC),History of autologous stem cell transplant (HCC) TAKE 1 TABLET BY MOUTH TWICE A DAY 180 Tablet 3 09/16/2023 Active Amoxicillin-Pot Clavulanate 500-125 MG Oral Tablet (Augmentin) Take 1 Tablet by mouth in the morning and 1 Tablet at noon and 1 Tablet before bedtime. Active Hospital, Clinic, or Other Facility Administered [...] as of this encounter (statuses as of 09/30/2023) Active Problems Problem Noted Date Diagnosed Date [...] as of this encounter (statuses as of 09/30/2023) Resolved Problems Problem Noted Date Diagnosed Date Resolved Date Asthma in remission 08/28/2022 08/29/19 Asthma, mild persistent 08/28/202208/11 Asthma, severe persistent 08/28/2022 Stem cell transplant candidate 08/17/2019 09/02/2019 documented as of this encounter (statuses as of 09/30/2023) Immunizations Name Administration Dates Next Due COVID-19 mRNA, LNP-s, No Pre serve, 2-Dose Series (9+) 01/17/2021,08/05/2020,07/08/2020 COVID-19, LNP-s, No Preserve , Bryant-sucrose, [...] encounter Miscellaneous Notes * Telephone Encounter - Fidel Campbell [facility] - 09/30/2023 3:36 PM EDTRefused Prescriptions: Disp Refills DULoxetine HCl 60 MG Oral Capsule Delayed *180 Ca*1 Sig: TAKE 1 CAPSULE BY MOUTH TWICE A DAY Refused By: FIDEL ACMPBELL Reason for Refusal: Duplicate Request * Telephone Encounter - Cornelius Benajmin - 09/27/2023 4:08 PM EDTPending Prescriptions: Disp Refills DULoxetine HCl 60 MG Oral Capsule Delayed *180 Ca*1 Sig: TAKE 1 CAPSULE BY MOUTH TWICE A DAY * Telephone Encounter - Cornelius Benjamin - 09/27/2023 4:06 PM EDT Did you pend patient's preferred pharmacy and medication before forwarding?yes Pharmacy: [facility][id number] [id number] [facility] Pending Prescriptions: Disp Refills DULoxetine HCl 60 MG Oral Capsule Delayed*180 Ca*1 Sig: TAKE 1 CAPSULE BY MOUTH TWICE A DAY Last Visit: 02/04/2023 (in office), Visit date not found (telemedicine) Next Visit: 02/05/2024 If no future appointments scheduled, and last appointment is greater than a year ago, please schedule patient for a follow-up appointment Last date the medication was ordered: 04/02/2023 Is this request for a controlled substance?No Urine Drug Screen:No results found for this or any previous visit. Patient Phone Numbers Labs: Lab Results Component Value Date/Time CREAT 1.1 09/18/2023 08:19 AM CREAT 0.9 05/03/2020 10:26 AM POTASSIUM 3.9 09/18/2023 08:19 AM POTASSIUM 4.2 05/03/2020 10:26 AM TSH 1.68 07/29/2020 10:34 AM TSH 1.16 11/19/2019 08:17 AM LDLCALC 92 11/19/2019 08:17 AM LDLDIRECT NOT APPLICABLE 11/19/2019 08:17 AM LDLDIRECT 99 07/29/2009 11:16 AM ALT 23 09/18/2023 08:19 AM ALT 11 05/03/2020 10:26 AM documented in this encounter Plan of Treatment Upcoming Encounters Date Type Department Care Team (Late st Contact Info) Description 10/02/2023 9:15 AM EDT Office Visit Hematology/Oncology [place] [address] [facility] [place] [phone] Morgan Vásquez MD [address] [facility] [place] [address] 10/17/2023 8:30 AM EDT Hem/Onc Treatment Hematology/Oncology Treatment, [place] 200 [facility] [place] [phone] Kenyatta, Chair 7 Hem Onc [address] [place] [address] 11/08/2023 9:40 AM EDT Office Visit [address] [place] [phone] Dranell Higgins MD [facility] [place] [address] 11/15/2023 8:30 AM EDT Hem/Onc Treatment Hematology/Oncology Treatment [place] [address] [facility] [place] [phone] Kenyatta, Chair 11 Hem Onc [address] [place] [address] 12/12/2023 11:15 AM EDT [facility] [place] [address] [facility] [place] [phone] Morgan Vásquez MD [address] [place] [address] 12/12/2023 11:45 AM EDT Hem/Onc Treatment Hematology/Oncology Treatment, [place] [address] [place] [phone] 02/05/2024 8:40 AM EDT Office Visit Neurology [facility] [address] [place] [address] Octavia Goins PA-C [address] [facility] [place] [address] 09/02/2024 8:20 AM EDT Office Visit Pulmonary Medicine, [facility] [address] [facility] [place] [address] Ish Caba [facility] [address] [facility] [address] 05/03/2025 7:40 AM EST Office Visit Dermatology [address] [place] [address] Albina Romo PA-C [address] [place] [address] [place] [address] Health Maintenance Due Date Last Done Comments [...] this encounter Medical Devices Implanted Type Area Probation Manager Device Identifier Shelf Expiration Date Model / Serial / Lot Mesh Plug Xlarge [id number] - [id number] Implanted:Qty: 1 on 12/09/2020 by John Zaragoza MD at OR [facility] Left: Groin CR BARD : DAVOL 05/09/2023 [id number] / / [id number] documented as of this encounter Advance Directives [...] Power of Attor coco? No Care Teams Market Development Specialist Relationship Specialty Start Date End Date Michael Collins MD [address] [place] [address] [place] [address] PCP - General Internal Medicine 03/01/14 documented as of this encounter
--- OUTSIDE RECORDS SUMMARY | 2024-03-26 16:42 | External Medical Summary | Summary of Care ---
Author Name Unknown Organization [facility] [address] [facility] [address] Phone [phone] Care Team Providers Care Direct Marketing Specialist Name Role Phone Michael Collins MD Primary Care Provi zehra Reason for Visit * Reason Onset Date Comments Medication Refill 09/30/2023 Encounter Details Date Type Department Care Team (Late st Contact Info) Description 09/30/2023 Refill Neurology [facility] Kenyatta [place] [address] [place] [address] Octavia Goins PA-C 200 [place] [address] Allergies No known active allergiesdocumented as of this encounter (statuses as of 09/30/2023) Medications Medication Sig Dispensed Refills Start Date End Date Status THEOPHYLLINE ER 450 MG PO [id number]:2 tablet at bedtime Take by mouth. Indications: [...] Tablet Active Dexamethasone 4 MG Oral Tablet (Decadron)Indicat [...] Galvin [address] [place] [address] DURABLE MED[employer]QUIPMENT COMPANY: [employer] ORDER: Please start nocturnal oxygen via nasal [...] signed) Ish Caba MD Pulmonary Medicine, [address] [place] [address] [facility] Medical License Number: [id number] 1 Each 09/21/2022 Active Prochlorperazine Maleate 10 [...] before bedtime. 180 Capsule 1 09/30/2023 Active DULoxetine HCl 60 MG Oral Capsule Delayed Release Particles (Cymbalta) TAKE 1 CAPSULE BY MOUTH TWICE A DAY 180 Capsule 1 04/02/2023 Discontinu ed(Refill) Hospital, Clinic, or Other Facility [...] mRNA, LNP-s, No Pre serve, 2-Dose Series ([employer]) 01/17/2021,08/05/2020,07/08/2020 COVID-19, LNP-s, No Preserve , Bryant-sucrose, [...] Telephone Encounter - Octavia Goins PA-C - 09/30/2023 3:28 PM EDT Signed Prescriptions: Disp Refills DULoxetine HCl 60 MG Oral Capsule Delayed *180 Ca*1 Sig: Take 1 Capsule by mouth in the morning and 1 Capsule before bedtime. Authorizing Provider: OCTAVIA GOINS * Telephone Encounter - Raisa Smith [employer] - 09/30/2023 2:23 PM EDT Pending Prescriptions: Disp Refills DULoxetine HCl 60 MG Oral Capsule Delayed *180 Ca*1 Sig: Take 1Capsule by mouth in the morning and 1 Capsule before bedtime. documented in this encounter Plan of Treatment Upcoming Encounters Date Type Department Care Team (Late st Contact Info) Description 10/02/2023 9:15 AM EDT Office Visit [facility]ology[facility] [place] [address] [address] [place] [place] [phone] Morgan Vásquez MD [address] [place] [address] 10/17/2023 8:30 AM EDT Hem/Onc Treatment Hematology/Oncology Treatment, [place] 200 [facility] [place] [phone] Kenyatta, Chair 7 Hem Onc [place] [address] Amena [place]smna [place] [address] 11/08/2023 9:40 AM EDT Office Visit Rheumatology [address] [place] [phone] Darnell Higgins MD [address] [facility] [place] [address] 11/15/2023 8:30 AM EDT Hem[facility] [phone] Keny[place], Chair 11 Hem Onc [address] [place] [address] 12/12/2023 11:15 AM EDT Office Visit Hematology/Oncology [facility] [place] 200 [facility] [place] [phone] Morgan Vásquez MD 200 [facility] [place] [address] 12/12/2023 11:45 AM EDT Hem[facility] [phone] 02/05/2024 8:40 AM EDT Office Visit Neurology [facility] [place] 200 [facility] [place] [address] Octavia Goins PA-C 200 [facility] [place] [address] 09/02/2024 8:20 AM EDT Office Visit Pulmonary Medicine, [facility] [place] [address] Ish Caba MD [address] [place] [address] 05/03/2025 7:40 AM EST Office Visit Dermatology [address] [place] [address] Albina Romo PA-C [address] [place] [address] [place] [address] Health Maintenance Due Date Last Done Comments [...] this encounter Medical Devices Implanted Type Area Continuous Process Tanner Rotary Drum Device Identifier Shelf Expiration Date Model / Serial / Lot Mesh Plug Xlarge [id number] - [id number] Implanted:Qty: 1 on 12/09/2020 by John Zaragoza MD at OR [facility] Left: Demond RIVAS BARD : DAVOL 05/09/2023 [id number] / / [id number] documented as of this encounter Advance Directives [...] of Attor coco? No Care Teams Direct Marketing Specialist Relationship Specialty Start Date End Date [place] Collins MD [address] [facility] [place] [place] [address] PCP - General Internal Medicine 03/01/14 documented as of this encounter
--- OUTSIDE RECORDS SUMMARY | 2024-03-26 16:42 | External Medical Summary | Summary of Care ---
Author Name Unknown Organization [facility] Address [address] [facility] [place] [address] Phone [phone] Care Team Providers Care Track Moving Machine Operator Name Role Phone [place] Collins MD Primary Care Provi zehra Encounter Details Date Type Department Care Team (Late st Contact Info) Description 10/02/2023 Telephone Hematology/Oncology [facility] [place] [address] [place] [phone] Morgan Vásquez MD [address] [place] [address] Allergies No known active allergiesdocumented as of this encounter (statuses as of 10/02/2023) Medications Medication Sig Dispensed Refills Start Date End Date Status THEOPHYLLINE ER 450 MG PO [id number]:2 tablet at bedtime Take by mouth. Indications: [...] nostril at bedtime. PATIENT INFORMATION: Kris Galvin [address] [place] [address] DURABLE MEDICAL EQUIPMENT COMPANY: [employer] ORDER: Please start nocturnal oxygen via nasal [...] signed) Ish Caba MD Pulmonary Medicine, [address] [place] [address] [place] [facility] Medical License Number: [id number] 1 Each 09/21/2022 Active Prochlorperazine Maleate 10 [...] Orders received for Pomalyst - routed to MTM for review and [place] plan. -Chemo Consent: 10/02/23 -Chemo Education: 10/08/23 -- Pt to register with Krista this day as well. -Port Placement: N/A -Standing Lab orders placed: MTM to place -Medications Pended: MTM to place -Hep B Labs: 12/23/2020 documented in this encounter Plan of Treatment Upcoming Encounters Date Type Department Care Team (Late st Contact Info) Description 10/02/2023 1:00 PM EDT Pharmacy Pharmacy Hematology [facility] [address] [place] [address] [facility] Hem/Onc [address] [place] [address] 10/08/2023 2:00 PM EDT Nurse Only Hematology/Oncology [facility] [place] [facility] [place] [phone] Kenyatta, Nurse Hem [facility] [place] [address] 10/17/2023 8:30 AM EDT Hem/Onc Treatment Hematology/Oncology Treatment [address] [place] [phone] Kenyatta, Chair 7 Hem On[facility] [place] [address] 11/08/2023 9:40 AM EDT Office Visit Rheumatology [address] [place] [phone] Darnell Higgins MD [facility] [place] [address] 11/15/2023 8:30 AM EDT Hem/Onc Treatment Hematology/Oncology Treatment, [place] 200 [facility] [place] [phone] Kenyatta, Chair 11 Hem Onc [address] [facility] [place] [address] 12/12/2023 11:15 AM EDT Office Visit Hematology/Oncology [facility] [address] [place] [phone] Morgan Vásquez MD [address] [place] [address] 12/12/2023 11:45 AM EDT Hem/Onc Treatment Hematology/Oncology Treatment, [place] [address] [place] [phone] 02/05/2024 8:40 AM EDT Office Visit Neurology [facility] [address] [place] [address] Octavia Goins PA-C 200 [facility] [place] [address] 09/02/2024 8:20 AM EDT Office Visit Pulmonary Medicine, [facility] 132 [facility] [place] [address] Ish Caba MD [address] [facility] [address] 05/03/2025 7:40 AM EST Office Visit Dermatology [address] [place] [address] Albina Romo PA-C [address] [place] [address] [place] [address] Health Maintenance Due Date Last Done Comments [...] this encounter Medical Devices Implanted Type Area Photoflash Powder Mixer Device Identifier Shelf Expiration Date Model / Serial / Lot Mesh Plug Xlarge [id number] - [id number] Implanted:Qty: 1 on 12/09/2020 by Jonh Zaragoza MD at OR [facility] Left: Groin CR BARD : DAVOL 05/09/2023 [id number] / / [id number] documented as of this encounter Advance Directives [...] Power of Attor coco? No Care Teams Track Moving Machine Operator Relationship Specialty Start Date End Date [place] MD [address] [place] [address] [place] [address] PCP - General Internal Medicine 03/01/14 documented as of this encounter
--- NOTE | 2024-03-26 18:05 | Neurology Consultation ---
Date of Consultation March 26, 2024 Assessment & Plan (1) Encephalopathy: Kris Galvin is a 58 yo M presenting with encephalopathy of unknown etiology. Concern for his cognitive impairment related to his multiple myeloma/chemo. Recommend LP, EEG and possible LTM. Discussed wtih Dr. Yun, we will transfer the patient to [facility] for teritary neurology care on the neurology service. Telehealth Consultation Telehealth Information Telehealth Information: I performed this visit using a real-time telehealth connection between my location and the patients location ([facility] After c onnecting through interactive tele-video, patient was identified by name and date of and/or wristband check.Patient (or authorized healthcare treasury representative) was informed that this was a telemedicine visit and it was being conducted confidentially over secure lines. My office door was closed and no one else was present in the room with me.Patient (or authorized healthcare treasury representative) provided consent to proceed with the visit, expressed an understanding of privacy and security of the telemedicine visit, and gave permission to have a hospital treasury representative in the room in order to assist with the visit and to conduct portions of the visit, as needed. I informed the patient (or authorized healthcare treasury representative) that I reviewed their record and presented the opportunity for them to ask any questions regarding the visit today. The patient agreed to participate. History of Present Illness Reason for Consultation: Confusion Requesting Physician: Dr. Yun Attending Physician: Brandan Yun MD History of Present Illness Kris Galvin is a 58 yo M with a history of multiple myeloma and neuropathy, followed by neurology presenting with acute altered mental status worsening over the last 2 months, but rapidly progressive since the past 2 weeks. The patient became agitated in the ED and required zyprexa. I was able to see him after the zyprexa and he was more appropriate than earlier. He asked the nurse to stay in the room for the encounter as he felt nervous. He was unable to coherently describe the duration of his symptoms but reports that he has been extremely anxious and becomes overwhelmed easily. He recalls fighting with his as she was trying to back out of their driveway. He also reports long- standing difficulty with his memory that he has been able to "hide" from others. 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 He believes he has been sick recently and describes having fevers at home. He does not know what medication he takes and notes that his fills the pill box but she has been recently putting in "cold medicine" to treat his fever. He thought he had covid but remembers taking a test that was negative. Unable to corroborate any of the above history at this time. No report of memory concerns when he last saw neurology in Jan 2024. Allergies Allergy/AdvReac Type Severity Reaction Status Date / Time No Known Allergies Allergy Unknown Verified 03/17/24 13:18 Home Medications Medication Instructions Recorded Confirmed Type acetaminophen 500 mg capsule 500 mg PO Q6H PRN Pain/Fever 09/18/19 03/26/24 History acyclovir 800 mg tablet 800 mg PO BID 09/18/19 03/26/24 History folic acid 1 mg tablet 1 mg PO DAILY 09/18/19 03/26/24 History multivitamin with minerals-folic 200 mcg PO 09/18/19 03/17/24 History acid 200 mcg chewable tablet (One-A-Day [employer]) omega-3 fatty acids 1,000 mg 1,000 mg PO DAILY 09/18/19 03/26/24 History capsule sildenafil 100 mg tablet 100 mg PO DAILY PRN sexual 12/05/21 03/26/24 Rx activity #6 tabs albuterol sulfate 90 mcg/actuation 2 puff inhalation Q6H PRN 05/11/22 03/26/24 Rx aerosol inhaler (Ventolin HFA) shortness of breath or wheezing #54 grams aspirin 81 mg tablet,delayed 81 mg PO DAILY #30 tabs 01/09/23 03/26/24 Rx release (Adult Aspirin Regimen) duloxetine 60 mg capsule,delayed 60 mg PO BID #180 caps 01/09/23 03/26/24 Rx release ondansetron HCl 8 mg tablet 8 mg PO Q8H PRN nausea and 01/09/23 03/26/24 Rx vomiting #30 tabs pregabalin 25 mg capsule 25 mg PO BID 01/09/23 03/26/24 History prochlorperazine maleate 10 mg 10 mg PO Q6H PRN nausea and 01/09/23 03/26/24 Rx tablet vomiting #30 tabs losartan 50 mg tablet 50 mg PO DAILY #90 tabs 07/03/23 03/26/24 Rx metoprolol succinate 50 mg 50 mg PO DAILY #90 tabs 07/03/23 03/26/24 Rx tablet,extended release 24 hr trazodone 100 mg tablet 100 mg PO .COMPLEX #90 tabs 10/25/23 03/26/24 Rx trazodone 150 mg tablet 150 mg PO HS #90 tabs 10/25/23 03/26/24 Rx hydrochlorothiazide 25 mg tablet 25 mg PO DAILY #90 tabs 12/25/23 03/26/24 Rx omeprazole 40 mg capsule,delayed 40 mg PO BID #180 caps 12/27/23 03/26/24 Rx release zolpidem 10 mg tablet See Rx Instructions PO HS PRN 02/12/24 03/26/24 Rx insomnia #30 tabs theophylline 450 mg 900 mg (2 x 450 mg) PO HS #180 tabs 02/20/24 03/26/24 Rx tablet,extended release,12 hr albuterol sulfate 2.5 mg/3 mL 2.5 mg inhalation Q4H PRN Wheezing 03/17/24 03/26/24 History (0.083 %) solution for nebulization clobetasol 0.05 % topical cream 1 applic topical BID PRN Skin rash 03/17/24 03/26/24 History dexamethasone 4 mg tablet 4 mg PO DAILY 03/17/24 03/26/24 History dexamethasone 4 mg tablet 40 mg PO .Weekly 03/17/24 03/26/24 History diphenoxylate-atropine 2.5 1 tab PO QID PRN Diarrhea 03/17/24 03/26/24 History mg-0.025 mg tablet (Lomotil) metformin 500 mg tablet,extended 1,000 mg PO DAILY 03/17/24 03/26/24 History release 24 hr triamcinolone acetonide 0.1 % 1 applic topical BID PRN Rash 03/17/24 03/26/24 History topical cream oxycodone 5 mg tablet 5 mg PO Q6H PRN pain #120 tabs 03/24/24 03/26/24 Rx Patient History Medical History Anxiety GERD (gastroesophageal reflux disease) On home O2 COPD (chronic obstructive pulmonary disease) Interstitial lung disease Intrinsic asthma Neuropathy Head injury From logging accident;2011; Shingles 2019 MGUS (monoclonal gammopathy of unknown significance) 2018 Stroke Umbilical hernia Osteoarthritis Degenerative joint disease (DJD) of lumbar spine Concussion Unconscious Chemotherapy-induced neuropathy ACL (anterior cruciate ligament) tear History of left ACL tear Insomnia Lyme disease Treated in 2015 Surgical History History of bone marrow biopsy Previous back surgery Lumbar spine surgery;Dr. Gray;2002 Hx of colonoscopy History of autologous stem cell transplant 09/02/19 S/P tonsillectomy H/O shoulder surgery Status post repair long head biceps tendon rupture 2013-left shoulder Total of 6 procedures on the left shoulder and 6 procedures on the right shoulder. S/P left knee arthroscopy Status post arthroscopic surgery for torn meniscus 2015 Hx of cholecystectomy History of hernia repair Right inguinal hernia repair 09/01/2013-Dr. Anand Left inguinal hernia repair 11/2020 Family History Uncle Cancer Unknown type Father Unknown family medical history Pacemaker Mother , 79yo Unknown family medical history Sister Colonic polyp Son No problems noted. Daughter Diabetes Denies family history of Ovarian cancer Prostate cancer Coronary heart disease Breast cancer Social History Smoking Status: Unknown if ever smoked Second Hand Exposure: Yes; Do You Dip or Chew Tobacco: No; Preferred Language: Luxembourgish Communication Ability: Effective Visual Impairment: No Limitations Hearing Ability: Normal Marketing Technology Coordinator Required: No Beliefs That Will Affect Care: None marital status: Current Living Situation: Spouse current occupational status: disabled current occupation: [employer] How many Children do You have: 2 Feels Safe at Home: Declines to Answer Childhood Exposure to Second-Hand Smoke: Yes Diet: regular caffeine: Yes during the past year weight has: decreased > 10 lbs Dental Care, Regularly: Yes Physical Activity Frequency: 1-2 Times per Week Seatbelt Use: always Sunscreen Use: Yes Review of Systems +abdominal pain, anxiety, paranoia. Results & Data Vital Signs (Past 12 Hours) Vital Signs Temp Pulse Pulse Resp BP BP Pulse Ox 03/26/24 15:39 110 H 18 145/97 H 97 03/26/24 14:13 94 H 03/26/24 13:07 96 H 20 136/92 96 03/26/24 11:43 110 H 18 160/102 H 96 03/26/24 09:27 36.9 C 115 H 23 133/95 94 03/26/24 09:02 124 H 03/26/24 08:40 37 C 121 H 18 144/88 H 96 O2 Del Method 03/26/24 15:39 Room Air 03/26/24 14:13 03/26/24 13:07 Room Air 03/26/24 11:43 Room Air 03/26/24 09:27 Room Air 03/26/24 09:02 03/26/24 08:40 Room Air Laboratory Results Abnormal lab results 03/26/24 03/26/24 03/26/24 Range/Units 08:56 09:20 11:19 WBC 3.67 L (4.8-10.8) K/ul RBC 4.18 L (4.70-6.10) M/uL Hct 41.6 L (42.0-52.0) % MCH 35.2 H (25.0-34.0) pg RDW Std Deviation 49.1 H (36.4-46.3) fL Plt Count 75 L (130-400) K/uL Lymph # (Auto) 0.08 L (1.20-3.40) K/uL Platelet Estimate Decreased L (Normal) Potassium 2.8 L (3.5-5.1) mmol/L Anion Gap 15 H (3-11) Glucose 127 H (70-99(Fasting)) mg/dl Lactate 2.3 H* 2.1 H* (0.4-2.0) mmol/L Magnesium 1.6 L (1.7-2.4) mg/dl C-Reactive Protein (0-0.5) mg/dl Globulin 2.0 L (2.5-4.0) gm/dl Albumin/Globulin Ratio 2.3 H (0.9-2) Vitamin B12 (180-914) pg/ml Urine Ketones (Negative) 03/26/24 03/26/24 Range/Units 11:21 Unknown WBC (4.8-10.8) K/ul RBC (4.70-6.10) M/uL Hct (42.0-52.0) % MCH (25.0-34.0) pg RDW Std Deviation (36.4-46.3) fL Plt Count (130-400) K/uL Lymph # (Auto) (1.20-3.40) K/uL Platelet Estimate (Normal) Potassium (3.5-5.1) mmol/L Anion Gap (3-11) Glucose (70-99(Fasting)) mg/dl Lactate (0.4-2.0) mmol/L Magnesium (1.7-2.4) mg/dl C-Reactive Protein 3.03 H (0-0.5) mg/dl Globulin (2.5-4.0) gm/dl Albumin/Globulin Ratio (0.9-2) Vitamin B12 > 1500 H (180-914) pg/ml Urine Ketones 2+ H (Negative) Diagnostic Findings MRI brain 03/26 - With and without contrast - Unremarkable
[2024-03-26 20:15] VITALS: BP 119/79; O2SAT 96
[2024-03-26] MEDS: THEOPHYLLINE 300MG EXTENDED REL TAB PO SCH (20:15)
[2024-03-26] MEDS: PREGABALIN 25 MG CAP PO SCH (20:15)
[2024-03-26] MEDS: DULoxetine HCL 60 MG CAP PO SCH (20:16)
[2024-03-26] MEDS: PANTOprazole 40 MG TAB PO SCH (20:16)
[2024-03-26] MEDS: ACYCLOVIR 400 MG TAB PO SCH (20:16)
[2024-03-26] MEDS ORDERED: OLANZapine 10 MG/2.1 ML SDV IM PRN (20:29)
[2024-03-26] MEDS: ONDANSETRON INJ 2 MG/ML 2 ML VIAL IV PRN (23:13)
[2024-03-26] MEDS: ALBUTEROL 0.083% NEBU SOLN 3 ML VIAL INH PRN (23:49)
[2024-03-26 23:52] VITALS: PULSE 119; RESP 25
[2024-03-27] MEDS: OLANZapine 5 MG TABLET PO PRN (01:38)
--- NOTE | 2024-03-27 08:31 | Discharge Summary ---
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 Onset 3 months ago, worsening on 03/13 after MRI appointment, no h/o dementia or psych disorders - Worsening over 3 months, large change around 03/13 after MRI appointment where his states that he "had a meltdown" when discussing his history - Oncology note from 12/12/2023 without mention of steroids; Note from 03/05/2024 first mention of Decadron 40mg weekly HOWEVER, spoke with oncologist on phone who states that this steroid dose has been ongoing x years - Additional 4mg daily is only recent adjustment; pt has not taken 4mg dose since 03/23 stating it was "messing with his head" per --> continue to HOLD for now - Chemo every - CBC WBC 3.67, RBC 4.18, HCT 41.6, MCH 35.2, RDW 49.1, platelets 75 - CMP K 2.8, anion gap 15 - Lactate 2.1, magnesium 1.6, CRP 3.03; procalcitonin 0.09; TSH 0.618, vitamin B12 > 1500 - Tick panel negative thus far (h/o Lyme in 2016) - UA with 2+ ketones otherwise WNL - CXR, cervical spine CT, and head CT all without acute findings - EKG revealing sinus tachycardia and PACs - MRI- no acute cranial findings, no intracranial masses or pathological enhancement, 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 Vásquez @ [facility] - Current regimen: SQ daratumumab (since 01/2021), Darzalex Faspro monthly (since 01/2021), Cytoxan 300mg/m2 weekly (since 10/2023), Decadron 40mg weekly - Oncology note from 12/12/2023 without mention of steroids; Note from 03/05/2024 first mention of Decadron 40mg weekly HOWEVER, spoke with oncologist on phone who states that this steroid dose has been ongoing x years - Spoke w/ oncologist over the phone 03/26 regarding patient's treatment and any changes; all as above (3) Acute hypokalemia: K 2.8 on admission - EKG w/o changes - Replaced w/ IV K - Continue on oral replacement prn if continues to be low - Hold HCTZ until repeat K - CMP am (4) Back pain: Compression fx T10, to have radiation - On Decadron 40mg weekly w/ chemo and ? 4mg daily otherwise - Duloxetine 60mg BID, oxycodone 5mg q6hr prn pain --> HOLD oxycodone as it may be contributing to #1 - Received Acetaminophen in ED; states "back is getting better" (5) Hypertension: Hypertensive on arrival - HCTZ 25mg daily, Losartan 50mg daily, metoprolol succ 50mg - Hold HCTZ until repeat K (6) Asthma: Per hx - Albuterol sulfate neb prn - CXR WNL Plan Prediabetes- Metformin 1000 mg daily -> no SQ insulin placed at admission Homozygous MTHFR mutation- Dx 2011 GERD- Omperazole 40mg BID Neuropathy- Pregablin 25mg BID ED- Sildenafil 100mg prn Insomnia- Zolpidem 10mg, trazodone 150 mg qHS -> HOLD BOTH as may be contributing to #1 Dispo: Transfer to [facility] for tertiary care neurology evaluation today, March 27 VTE prophylaxis: SCDs Code: Full Admission HPI Per Admitting Provider 58-year-old male presenting to ED after referred from oncologist secondary to learning of recent fall. ED course: CBC- WBC 3.67, RBC 4.18, H&H 14.7/41.6, MCH 35.2, RDW 49.1, platelets 75; CMP-potassium 2.8, anion gap 15, glucose 127, globulin 2.0, albumin/globulin ratio 2.3; lactate 10.1, magnesium 1.6, troponin 14.1, pending CRP, TSH, vitamin B12; UA 2+ ketones otherwise unremarkable; CXR no acute cardiopulmonary findings; cervical spine CT left cervical LAD, partially imaged on the exam nodes are stable to slightly decreased in size since PET/CT of August 13, 2023; head CT without acute intracranial abnormality; EKG sinus tach with PACs, rate 125, plus minus LVH, QTc 482.; Provided with one-on-one assist, potassium replacement, magnesium replacement, Rocephin, Tylenol as well as lorazepam in ED. Patient is a 58-year-old male with PMHx multiple myeloma, GERD, HTN, homocystinemia, asthma and insomnia presenting for altered mental status. , Yvrose, helps to provide history. States that approximately 3 months ago the patient started to have confusion that has mainly worsened over the past 10 to 12 days. States that the patient had an MRI approximately 2 to 3 weeks ago and that when he came home he stated he had a "meltdown" and has not been the same since. Approximately 1 week ago, the patient was found writing numerous notes to himself writing things such as "I trust Yvrose", "I will go to the ER". His also states that that the patient has been intermittently complaining of pain above his left eye that occurs almost on a daily basis, and has stated "I try to ignore it so the voices do not know" per the patient's . Had a recent fall approximately 2 days ago and hit his head (on aspirin). She states that he also has had a fever for approximately 3 days with Tmax being 102 on 03/25. Also, on 03/25 the patient was noted to have soiled himself and got confused when driving home. denies alcohol or illicit drug use in the patient. States that the patient does not have any prior mental illnesses, but that there is a positive family history of such. 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 Only medication adjustments have been dosages of Decadron. Patient's states that he seems to become agitated and awake for hours on end after receiving a large dose of Decadron (40 mg) with his chemotherapy treatments. Chemotherapy treatments occur every . Patient spends a lot of time outside trying to do outside chores. No known ticks. Associated symptoms include patient having a difficult time urinating. Patient very suspicious of staff entering the room, picking and choosing who may come in and stay. I was able to enter the patient's room in the ED to have brief discussion with him. However, soon after entering, he told the nurse that I should leave and continued to act very suspicious of everyone entering the room. Assured him that I was there to help him, and he was willing to talk with me briefly. States that he can walk by himself, and that back pain is improving. Asked for water. Please see Dr. Yun's attestation for adjustments/additions to treatment plan. Discharge Exam General-alert but disoriented. No fever HEENT-head atraumatic and normocephalic, pupils equal and reactive to light, extraocular muscles intact Neck-no lymphadenopathy or thyromegaly, trachea midline Chest-clear to auscultation. No rales, wheezing or rhonchi Cardiac-regular rate and rhythm, normal S1 and S2 Abdomen-normal bowel sounds, no hepatosplenomegaly Extremities-no cyanosis, clubbing, or edema Neuro-cranial nerves II through XII intact, motor and sensory function within normal limits, strength symmetrical, no focal deficits Psych-normal affect, normal mood Discharge Plan Discharge Items Patient Disposition: Transfer Acute [facility] Reason For Visit: CONFUSION Discharge Diagnosis: Encephalopathy Condition on Discharge: Fair Activity: Per Instructions section Non-emergency contact: Primary Care Provider Call non-emergency contact if: your pain is worsening Follow-up/Referrals: Michael Collins MD [Primary Care Provider] - Diet: Regular Addtl Attending Provider Instructions: Encephalopathy: Plan: ? Steroid-induced psychosis Onset 3 months ago, worsening on 03/13 after MRI appointment, no h/o dementia or psych disorders - Worsening over 3 months, large change around 03/13 after MRI appointment where his states that he "had a meltdown" when discussing his history - Oncology note from 12/12/2023 without mention of steroids; Note from 03/05/2024 first mention of Decadron 40mg weekly HOWEVER, spoke with oncologist on phone who states that this steroid dose has been ongoing x years - Additional 4mg daily is only recent adjustment; pt has not taken 4mg dose since 03/23 stating it was "messing with his head" per --> continue to HOLD for now - Chemo every - CBC WBC 3.67, RBC 4.18, HCT 41.6, MCH 35.2, RDW 49.1, platelets 75 - CMP K 2.8, anion gap 15 - Lactate 2.1, magnesium 1.6, CRP 3.03; procalcitonin 0.09; TSH 0.618, vitamin B12 > 1500 - Tick panel negative thus far (h/o Lyme in 2016) - UA with 2+ ketones otherwise WNL - CXR, cervical spine CT, and head CT all without acute findings - EKG revealing sinus tachycardia and PACs - MRI- no acute cranial findings, no intracranial masses or pathological enhancement, 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 Vásquez @ [facility] - Current regimen: SQ daratumumab (since 01/2021), Darzalex Faspro monthly (since 01/2021), Cytoxan 300mg/m2 weekly (since 10/2023), Decadron 40mg weekly - Oncology note from 12/12/2023 without mention of steroids; Note from 03/05/2024 first mention of Decadron 40mg weekly HOWEVER, spoke with oncologist on phone who states that this steroid dose has been ongoing x years - Spoke w/ oncologist over the phone 03/26 regarding patient's treatment and any changes; all as above (3) Acute hypokalemia: Plan: K 2.8 on admission - EKG w/o changes - Replaced w/ IV K - Continue on oral replacement prn if continues to be low - Hold HCTZ until repeat K - CMP am (4) Back pain: Plan: Compression fx T10, to have radiation - On Decadron 40mg weekly w/ chemo and ? 4mg daily otherwise - Duloxetine 60mg BID, oxycodone 5mg q6hr prn pain --> HOLD oxycodone as it may be contributing to #1 - Received Acetaminophen in ED; states "back is getting better" (5) Hypertension: Plan: Hypertensive on arrival - HCTZ 25mg daily, Losartan 50mg daily, metoprolol succ 50mg - Hold HCTZ until repeat K (6) Asthma: Plan: Per hx - Albuterol sulfate neb prn - CXR WNL Plan Prediabetes- Metformin 1000 mg daily -> no SQ insulin placed at admission Homozygous MTHFR mutation- Dx 2011 GERD- Omperazole 40mg BID Neuropathy- Pregablin 25mg BID ED- Sildenafil 100mg prn Insomnia- Zolpidem 10mg, trazodone 150 mg qHS -> HOLD BOTH as may be contributing to #1 Dispo: Admit VTE prophylaxis: SCDs Code: Full Of note - H&P has not been signed or attested by the supervising attending Pending Studies at Discharge: No Stand-Alone Forms: My [facility] Skilled Items Patient informed of condition?: Yes DNR: No Discharge Level of Care: Other Communicable Disease: No Discharge Prognosis: Stable Lines: Peripheral IV Urinary Catheter: Yes Medications and DC Order Prescriptions: New olanzapine 5 mg Tablet 5 mg PO Q6H PRN (Reason: agitation) Qty: 30 0RF olanzapine 10 mg Recon Soln 5 mg IM Q6H PRN (Reason: agitation ) Qty: 1 0RF Continued triamcinolone acetonide 0.1 % cream 1 applic topical BID PRN (Reason: Rash) dexamethasone 4 mg tablet 40 mg PO .Weekly Patient Comments: As directed. albuterol sulfate 2.5 mg /3 mL (0.083 %) solution for nebulization 2.5 mg inhalation Q4H PRN (Reason: Wheezing) diphenoxylate-atropine [Lomotil] 2.5-0.025 mg tablet 1 tab PO QID PRN (Reason: Diarrhea) clobetasol 0.05 % cream 1 applic topical BID PRN (Reason: Skin rash) dexamethasone 4 mg tablet 4 mg PO DAILY Patient Comments: Except on day of chemo Rx Instructions: Do not take on metformin 500 mg tablet extended release 24 hr 1,000 mg PO DAILY sildenafil 100 mg tablet 100 mg PO DAILY PRN (Reason: sexual activity) Qty: 6 11RF Rx Instructions: administer 30 minutes to 4 hours before activity albuterol sulfate [Ventolin HFA] 90 mcg/actuation HFA aerosol inhaler 2 puff INH Q6H PRN (Reason: shortness of breath or wheezing) Qty: 54 3RF metoprolol succinate 50 mg tablet extended release 24 hr 50 mg PO DAILY Qty: 90 3RF losartan 50 mg tablet 50 mg PO DAILY Qty: 90 3RF trazodone 100 mg tablet 100 mg PO .COMPLEX Qty: 90 3RF Rx Instructions: 100 mg PO qhs; take with 150mg tab to equal 250mg daily. trazodone 150 mg tablet 150 mg PO HS MDD 250mg Qty: 90 3RF Rx Instructions: take with 100mg tablet to equal 250mg daily hydrochlorothiazide 25 mg tablet 25 mg PO DAILY Qty: 90 3RF omeprazole 40 mg capsule,delayed release(DR/EC) 40 mg PO BID Qty: 180 3RF zolpidem 10 mg tablet See Rx Instructions PO HS PRN (Reason: insomnia) Qty: 30 2RF Rx Instructions: Take 1/2 tablet at bedtime as needed for insomnia Kaushikjgamelie Collins Lic# [id number],CHRISTIAN#[id number] ON GOING [facility]ER[facility] theophylline 450 mg tablet extended release 12 hr 900 mg PO HS Qty: 180 3RF oxycodone 5 mg tablet 5 mg PO Q6H PRN (Reason: pain) Qty: 120 0RF Rx Instructions: Taking 15mg total (TID)- 1 at noon, 2 in evening One-A-Day Vitacraves Immunity 200 mcg tablet,chewable 200 mcg PO folic acid 1 mg tablet 1 mg PO DAILY omega-3 fatty acids 1,000 mg capsule 1,000 mg PO DAILY acyclovir 800 mg tablet 800 mg PO BID acetaminophen 500 mg capsule 500 mg PO Q6H PRN (Reason: Pain/Fever) pregabalin 25 mg capsule 25 mg PO BID aspirin [Adult Aspirin Regimen] 81 mg tablet,delayed release (DR/EC) 81 mg PO DAILY Qty: 30 2RF Hold Instructions: by [facility] 09/16/2019 duloxetine 60 mg capsule,delayed release(DR/EC) 60 mg PO BID Qty: 180 3RF ondansetron HCl 8 mg tablet 8 mg PO Q8H PRN (Reason: nausea and vomiting) Qty: 30 0RF prochlorperazine maleate 10 mg tablet 10 mg PO Q6H PRN (Reason: nausea and vomiting) Qty: 30 0RF Discharge Orders: Discharge Order (Routine); Ordered 03/27/24 Ordered By: Chelo Ferrell Admission Data Admit Date/Time: 03/26/24 11:41 Attending Provider: Venu Lorenzo Admit Provider: Brandan uYn Primary Care Provider: Michael Collins Other Providers: Brandan Yun; Octavia Goins; Jose Onofre; Octavia Ramos; Bernard Gomez; Schuyler Uriostegui; Carlos Martin; Aime May; Sandrita Pineda; Gregory Hanna; Otf Hernandez; Keisha Dailey; Reynold Mcclellan; Danilo,August; Mariam Elizalde; Aime Weldon; Mora Mancilla Hospital Stay Data Consultations 03/26/24 11:14 ED Decision to Admit Stat 03/26/24 13:58 Consult Neurology Routine Diagnostic Imagining Performed 03/26/24 08:50 CT cervical spine wo con Stat CT head/brain wo con Stat 03/26/24 11:06 MRI Brain [MR brain wo/w con] Stat Pending Results Patient Have Any Pending Studies at Discharge: No Discharge Instructions Given to Patient (Per Discharging Provider) Encephalopathy: Plan: ? Steroid-induced psychosis Onset 3 months ago, worsening on 03/13 after MRI appointment, no h/o dementia or psych disorders - Worsening over 3 months, large change around 03/13 after MRI appointment where his states that he "had a meltdown" when discussing his history - Oncology note from 12/12/2023 without mention of steroids; Note from 03/05/2024 first mention of Decadron 40mg weekly HOWEVER, spoke with oncologist on phone who states that this steroid dose has been ongoing x years - Additional 4mg daily is only recent adjustment; pt has not taken 4mg dose since 03/23 stating it was "messing with his head" per --> continue to HOLD for now - Chemo every - CBC WBC 3.67, RBC 4.18, HCT 41.6, MCH 35.2, RDW 49.1, platelets 75 - CMP K 2.8, anion gap 15 - Lactate 2.1, magnesium 1.6, CRP 3.03; procalcitonin 0.09; TSH 0.618, vitamin B12 > 1500 - Tick panel negative thus far (h/o Lyme in 2016) - UA with 2+ ketones otherwise WNL - CXR, cervical spine CT, and head CT all without acute findings - EKG revealing sinus tachycardia and PACs - MRI- no acute cranial findings, no intracranial masses or pathological enhancement, 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 Vásquez @ [facility] - Current regimen: SQ daratumumab (since 01/2021), Darzalex Faspro monthly (since 01/2021), Cytoxan 300mg/m2 weekly (since 10/2023), Decadron 40mg weekly - Oncology note from 12/12/2023 without mention of steroids; Note from 03/05/2024 first mention of Decadron 40mg weekly HOWEVER, spoke with oncologist on phone who states that this steroid dose has been ongoing x years - Spoke w/ oncologist over the phone 03/26 regarding patient's treatment and any changes; all as above (3) Acute hypokalemia: Plan: K 2.8 on admission - EKG w/o changes - Replaced w/ IV K - Continue on oral replacement prn if continues to be low - Hold HCTZ until repeat K - CMP am (4) Back pain: Plan: Compression fx T10, to have radiation - On Decadron 40mg weekly w/ chemo and ? 4mg daily otherwise - Duloxetine 60mg BID, oxycodone 5mg q6hr prn pain --> HOLD oxycodone as it may be contributing to #1 - Received Acetaminophen in ED; states "back is getting better" (5) Hypertension: Plan: Hypertensive on arrival - HCTZ 25mg daily, Losartan 50mg daily, metoprolol succ 50mg - Hold HCTZ until repeat K (6) Asthma: Plan: Per hx - Albuterol sulfate neb prn - CXR WNL Plan Prediabetes- Metformin 1000 mg daily -> no SQ insulin placed at admission Homozygous MTHFR mutation- Dx 2011 GERD- Omperazole 40mg BID Neuropathy- Pregablin 25mg BID ED- Sildenafil 100mg prn Insomnia- Zolpidem 10mg, trazodone 150 mg qHS -> HOLD BOTH as may be contributing to #1 Dispo: Admit VTE prophylaxis: SCDs Code: Full Of note - H&P has not been signed or attested by the supervising attending Total Time Total Time Spent Total Time Spent (In Minutes): 45 minutes Coding Level of Care Code 23373 INP/OBS DISCH >30 MIN Diagnoses Encephalopathy G93.40 Multiple myeloma C90.00 Acute hypokalemia E87.6 Back pain M54.9 Hypertension I10 Asthma J45.909
[2024-03-27] MEDS: FOLIC ACID 1 MG TAB PO SCH (08:50)
[2024-03-27] MEDS: hydroCHLOROthiazide 25 MG TAB PO SCH (08:50)
[2024-03-27] MEDS: ASPIRIN 81 MG ECTAB PO SCH (08:50)
[2024-03-27] MEDS: LOSARTAN POTASSIUM 50 MG TAB PO SCH (08:50)
[2024-03-27] MEDS: METOPROLOL SUCC 50MG EXT REL TAB PO SCH (08:50)
[2024-03-31 02:55] LABS: Babesia microti DNA Not Detected (Not Detected)
== END 2024-03-27 09:42 | disposition short-term general hospital (02) | DRG 92 ==
LOC: ED 08:36 → EDINP 11:41 → SUATTDRO 11:41 → 3E 15:55